=== PATIENT | female | born 1955 | race Caucasian/White ===

== ENCOUNTER 2023-01-31 00:46 | Outpatient (REF) | payer MEDICARE, MEDICAID, SELFPAY ==
[2023-01-31 10:43] LABS: Bilirubin Urine NEGATIVE (NEGATIVE); Blood Urine SMALL (NEGATIVE); Clarity Urine CLEAR (CLEAR); Color Urine LT. YELLOW (YELLOW); Glucose Urine UA NEGATIVE (NEGATIVE); Ketones Urine NEGATIVE (NEGATIVE); Leukocyte Esterase Urine LARGE (NEGATIVE); Nitrite Urine NEGATIVE (NEGATIVE); Protein Urine NEGATIVE (NEG/TRACE); Specific Gravity Urine 1.015 (1.005-1.025)
[2023-01-31 10:50] LABS: Basophils Percent Auto 0.1 % (0.2-2.0); Eosinophils Absolute Auto 0.5 10^3/uL (0.0-0.7); Eosinophils Percent Auto 6.3 % (0.9-7.0); Hematocrit 40.9 % (36.0-48.0); Immature Granulocytes Abs Auto 0.03 10^3/uL (0.00-0.03); Immature Granulocytes Pct Auto 0.4 % (0.0-0.5); Lymphocytes Percent Auto 13.7 % (20.5-60.0); Mean Corpuscular HGB Conc 31.8 g/dL (29.9-35.2); Mean Corpuscular Hemoglobin 29.7 pg (26.7-34.0); Mean Corpuscular Volume 93.6 fL (81.0-99.0); Monocytes Absolute Auto 0.7 10^3/uL (0.3-0.8); Monocytes Percent Auto 9.5 % (1.7-12.0); Platelet Count 252 10^3/uL (150-450); Red Blood Count 4.37 10^6/uL (4.20-5.40); Red Cell Distribution Width 14.4 % (11.0-15.0); White Blood Count 7.1 10^3/uL (4.0-11.0)
[2023-01-31 10:53] LABS: Urine Microscopic Indicated YES
[2023-01-31 10:56] LABS: Bacteria Urine MODERATE #/HPF (NONE SEEN); Mucus Urine NONE SEEN (NONE SEEN); Squamous Epithelial Cell Urine FEW #/LPF (NONE/RARE); WBC Urine 50-75 #/HPF (NONE SEEN)
[2023-01-31 10:57] LABS: Renal Epithelial Cells Urine RARE #/LPF (NONE SEEN)
[2023-01-31 10:58] LABS: Urine Culture Indicated YES
[2023-01-31 11:02] LABS: Estimated Average Glucose 114 mg/dL; Glycohemoglobin A1C 5.6 % (4.5-6.2)
[2023-01-31 11:38] LABS: Alanine Aminotransferase 27 U/L (14-59); Albumin Globulin Ratio 1.3; Albumin Level 3.9 g/dL (3.4-5.0); Alkaline Phosphatase 106 U/L (46-116); Anion Gap 16.1; Aspartate Amino Transferase 19 U/L (15-37); Bilirubin Direct 0.1 mg/dL (0.0-0.2); Bilirubin Total 0.5 mg/dL (0.2-1.0); Carbon Dioxide 24.3 mmol/L (21.0-32.0); Chloride 106 mmol/L (98-107); Chol HDL Ratio 1.9; Cholesterol 120 mg/dL (<=200); Estimated GFR (African America >60 (>=60); Estimated GFR (Non-African Ame 51 (>=60); Globulin 2.9 g/dL; HDL Cholesterol 63 mg/dL (40-60); Potassium 4.4 mmol/L (3.5-5.1); Sodium 142 mmol/L (136-145); Thyroid Stimulating Hormone 1.779 uIU/mL (0.358-3.740); Total Protein 6.8 g/dL (6.4-8.2); Triglycerides 119 mg/dL (<=150); VLDL CHOLESTEROL 23.8 mg/dL
== END 2023-01-31 00:47 | disposition home or self-care (01) ==
LOC: LAB 00:46
PROVIDERS: PCP Internal Medicine
DX: Z79.899 Other long term (current) drug therapy (principal); E11.9 Type 2 diabetes mellitus without complications; I50.40 Unspecified combined systolic (congestive) and diastolic (congestive) heart failure; E78.00 Pure hypercholesterolemia, unspecified
CPT/HCPCS: 36415; 80051; 80061; 80076; 81003; 81015; 82565; 83036; 83880; 84443; 84520; 85025; 87086

== ENCOUNTER 2023-02-14 09:59 | Outpatient (REF) | payer MEDICARE, MEDICAID, SELFPAY ==
[2023-02-14 11:41] LABS: Basophils Percent Auto 0.1 % (0.2-2.0); Eosinophils Absolute Auto 0.4 10^3/uL (0.0-0.7); Eosinophils Percent Auto 3.6 % (0.9-7.0); Hematocrit 42.5 % (36.0-48.0); Hemoglobin 13.5 g/dL (12.0-16.0); Immature Granulocytes Abs Auto 0.05 10^3/uL (0.00-0.03); Immature Granulocytes Pct Auto 0.4 % (0.0-0.5); Lymphocytes Absolute Auto 1.1 10^3/uL (1.2-3.8); Mean Corpuscular HGB Conc 31.8 g/dL (29.9-35.2); Mean Corpuscular Hemoglobin 29.9 pg (26.7-34.0); Mean Corpuscular Volume 94.2 fL (81.0-99.0); Mean Platelet Volume 9.4 fL (9.5-13.5); Monocytes Absolute Auto 0.7 10^3/uL (0.3-0.8); Monocytes Percent Auto 5.9 % (1.7-12.0); Neutrophils Absolute Auto 8.9 10^3/uL (1.4-6.5); Platelet Count 236 10^3/uL (150-450); Red Blood Count 4.51 10^6/uL (4.20-5.40); Red Cell Distribution Width 14.1 % (11.0-15.0); White Blood Count 11.2 10^3/uL (4.0-11.0)
[2023-02-14 12:02] LABS: Estimated Average Glucose 105 mg/dL; Glycohemoglobin A1C 5.3 % (4.5-6.2)
[2023-02-14 12:07] LABS: Alanine Aminotransferase 26 U/L (14-59); Albumin Globulin Ratio 1.3; Alkaline Phosphatase 117 U/L (46-116); Aspartate Amino Transferase 13 U/L (15-37); Bilirubin Direct 0.2 mg/dL (0.0-0.2); Bilirubin Total 0.6 mg/dL (0.2-1.0); Carbon Dioxide 27.9 mmol/L (21.0-32.0); Chloride 102 mmol/L (98-107); Chol HDL Ratio 1.9; Cholesterol 123 mg/dL (<=200); Estimated GFR (African America >60 (>=60); Estimated GFR (Non-African Ame >60 (>=60); Globulin 3.2 g/dL; Glucose 136 mg/dL (74-106); HDL Cholesterol 66 mg/dL (40-60); Potassium 3.9 mmol/L (3.5-5.1); Sodium 140 mmol/L (136-145); Thyroid Stimulating Hormone 1.485 uIU/mL (0.358-3.740); Total Protein 7.2 g/dL (6.4-8.2); Triglycerides 101 mg/dL (<=150); VLDL CHOLESTEROL 20.2 mg/dL
== END 2023-02-14 10:00 | disposition home or self-care (01) ==
LOC: LAB 09:59
DX: E11.9 Type 2 diabetes mellitus without complications (principal); I10 Essential (primary) hypertension; J45.909 Unspecified asthma, uncomplicated; F32.A Depression, unspecified
CPT/HCPCS: 36415; 80051; 80061; 80076; 82306; 82565; 82947; 83036; 83880; 84443; 84520; 85025

== ENCOUNTER 2023-05-02 01:25 | Outpatient (REF) | payer MEDICARE, MEDICAID, SELFPAY ==
[2023-05-02 08:14] LABS: Estimated Average Glucose 103 mg/dL; Glycohemoglobin A1C 5.2 % (4.5-6.2)
[2023-05-02 08:25] LABS: Alanine Aminotransferase 27 U/L (14-59); Albumin Globulin Ratio 1.2; Albumin Level 3.9 g/dL (3.4-5.0); Alkaline Phosphatase 125 U/L (46-116); Anion Gap 11.9; Aspartate Amino Transferase 15 U/L (15-37); Bilirubin Direct 0.1 mg/dL (0.0-0.2); Bilirubin Total 0.4 mg/dL (0.2-1.0); Calcium 9.1 mg/dL (8.5-10.1); Carbon Dioxide 28.9 mmol/L (21.0-32.0); Chloride 105 mmol/L (98-107); Chol HDL Ratio 1.8; Cholesterol 129 mg/dL (<=200); Estimated GFR (African America >60 (>=60); Estimated GFR (Non-African Ame 59 (>=60); Globulin 3.2 g/dL; Glucose 90 mg/dL (74-106); HDL Cholesterol 71 mg/dL (40-60); Potassium 4.8 mmol/L (3.5-5.1); Sodium 141 mmol/L (136-145); Total Protein 7.1 g/dL (6.4-8.2); Triglycerides 85 mg/dL (<=150)
== END 2023-05-02 01:26 | disposition home or self-care (01) ==
LOC: LAB 01:25
PROVIDERS: Visit Provider Internal Medicine
DX: E11.9 Type 2 diabetes mellitus without complications (principal)
CPT/HCPCS: 36415; 80048; 80061; 80076; 83036

== ENCOUNTER 2023-05-18 09:12 | Outpatient (OUT) | payer MEDICARE, MEDICAID, SELFPAY ==
--- NOTE | 2023-05-18 09:16 | MM_ITS ---
Patient Name STEVE JOHNSON MR# Age Sex Date Time [id number] F 05/18/2023 09:23 At the Request Of DR YAYA LANGLEY D.O. RADIOLOGY REPORT PROCEDURE: MM TOMOSYNTHESIS SCREENING BI COMPARISON: MG MAMM SCREEN 3D DERRICK CAD, 05/14/2022. MG MAMM SCREEN 3D DERRICK CAD, 05/08/2021. MG MAMM DERRICK DIAG W CAD, 04/23/2019. INDICATIONS: Screening Calculator Name NCI Breast Cancer Risk Assessment Tool 5 Year Breast Cancer Risk 1.40% Lifetime Breast Cancer Risk 4.60% Personal Breast Cancer No Personal Ovarian Cancer No Treatments None Family Cancers None LOCATION: [facility] BREAST COMPOSITION: Almost entirely fatty. FINDINGS: DIAGNOSTIC CATEGORY 1--NEGATIVE. RIGHT BREAST: No significant suspicious finding. No significant change has occurred. LEFT BREAST: No significant suspicious finding. No significant change has occurred. RECOMMENDATIONS: ROUTINE MAMMOGRAM AND CLINICAL EVALUATION IN 12 MONTHS. PLEASE NOTE: A NORMAL MAMMOGRAM DOES NOT EXCLUDE THE POSSIBILITY OF BREAST CANCER. A CLINICALLY SUSPICIOUS PALPABLE LUMP SHOULD BE BIOPSIED. Dictated by: Kevin Martell M.D. on 05/18/2023 at 12:40 Approved by: Kevin Martell M.D. on 05/18/2023 at 12:42
== END 2023-05-18 09:13 | disposition home or self-care (01) ==
LOC: MAMMO 09:13
PROVIDERS: Visit Provider Internal Medicine
DX: Z12.31 Encounter for screening mammogram for malignant neoplasm of breast (principal)
CPT/HCPCS: 77063; 77067

== ENCOUNTER 2023-05-25 19:10 | Outpatient (REF) | payer MEDICARE, MEDICAID, SELFPAY ==
[2023-06-01 16:09] LABS: Age Gdln ACOG Testing Note (.); Pap IG (Image Guided) Note (.)
== END 2023-05-25 19:11 | disposition home or self-care (01) ==
LOC: LAB 19:10
PROVIDERS: Visit Provider Obstetrics & Gynecology
DX: Z01.419 Encounter for gynecological examination (general) (routine) without abnormal findings (principal)
CPT/HCPCS: G0145

== ENCOUNTER 2023-06-06 08:21 | Outpatient (OUT) | payer MEDICARE, MEDICAID, SELFPAY ==
--- NOTE | 2023-06-06 08:44 | CT_ITS ---
The [address] [address] Patient Name: STEVE JOHNSON MRN: [id number] date: 1955 Sex: F Assigned Patient Location: LAB Current Patient Location: LAB Accession/Order Number: [id number] Exam Date: 06/06/2023 10:10 Report Date: 06/06/2023 11:41 At the request of: ASHLEY ADAMES Procedure: CT abdomen pelvis wo/w con EXAM: CT abdomen pelvis wo/w con HISTORY: Rectal Bleeding K62.5 COMPARISON: . None . TECHNIQUE: Before and following the intravenous administration of 98 cc of Omnipaque 300, axial soft tissue windows of the abdomen and pelvis were performed with coronal and sagittal reformats. CT dose reduction technique was used including Automated Exposure Control Findings: Large hiatal hernia. ABDOMEN: The liver, gallbladder, spleen, pancreas and adrenal glands are unremarkable. No renal stones bilaterally. No left-sided collecting system or ureteral dilatation. There is moderate right-sided collecting system with severe right ureteral dilatation to the level of the distal ureter. No obstructing ureteral stone. There are colonic diverticula. Otherwise, the bowel is unremarkable without evidence of wall thickening or obstruction. The appendix is nondilated. The aorta is normal caliber. Mild atherosclerotic disease. Prominent, yet not technically enlarged, retroperitoneal lymph nodes. No free abdominal fluid. Pelvis: Unremarkable bladder. The uterus is present and is either septated or didelphic. Cyst No enlarged pelvic lymph nodes or free pelvic fluid. No aggressive sclerotic or lytic osseous lesions. CT/CT abdomen pelvis wo/w con IMPRESSION: 1. Moderate right-sided collecting system with more severe right ureteral dilatation to the level the distal ureter. No evidence of obstructing stone. An obstructing urothelial lesion is possible. If indicated, consider cystoscopy or CT urogram for further evaluation. 2. Diverticulosis. Electronically authenticated by: MICHEAL ALFARO Date: 06/06/2023 11:41
[2023-06-06 08:49] LABS: Estimated GFR (African America 57 (>=60); Estimated GFR (Non-African Ame 47 (>=60)
== END 2023-06-06 08:22 | disposition home or self-care (01) ==
LOC: LAB 08:22
PROVIDERS: Visit Provider Obstetrics & Gynecology
DX: K62.5 Hemorrhage of anus and rectum (principal); K57.90 Diverticulosis of intestine, part unspecified, without perforation or abscess without bleeding
CPT/HCPCS: 36415; 74178; 82565; Q9967

== ENCOUNTER 2023-06-09 07:43 | Outpatient (OUT) | payer MEDICARE, MEDICAID, SELFPAY ==
--- NOTE | 2023-06-09 07:45 | US_ITS ---
[address] [address] Patient Name: STEVE JOHNSON MRN: [id number] date: 1955 Sex: F Assigned Patient Location: US Current Patient Location: US Accession/Order Number: [id number] Exam Date: 06/09/2023 08:00 Report Date: 06/09/2023 08:53 At the request of: ASHLEY ADAMES Procedure: US pelvis w/ transvaginal EXAMINATION: US pelvis w/ transvaginal HISTORY: Post Menopausal Bleeding N95.0 COMPARISON: No relevant comparison available. TECHNIQUE: Transabdominal and/or transvaginal sonographic examination was performed as indicated by examination type. FINDINGS: UTERUS: Didelphic uterus. No appreciable mass. Uterus size: 10.6 x 5.6 x 8.9 cm ENDOMETRIUM: Marked, abnormal thickening of the endometrium within the right and left uterine cavity. Endometrial thickness: Right 5.0 cm; left 4.3 cm RIGHT OVARY: Not seen. LEFT OVARY: Not seen. CUL-DE-SAC: Unremarkable. No significant free fluid. BLADDER: Unremarkable. OTHER: None. US/US pelvis w/ transvaginal IMPRESSION: 1. Didelphic uterus with marked abnormal thickening of the right and left endometrial cavities; endometrial hyperplasia is favored over mass. Electronically authenticated by: IRVKA FRAZIER Date: 06/09/2023 08:53
== END 2023-06-09 07:44 | disposition home or self-care (01) ==
LOC: US 07:43
PROVIDERS: Visit Provider Obstetrics & Gynecology
DX: N95.0 Postmenopausal bleeding (principal); Q51.28 Other and unspecified doubling of uterus; N85.00 Endometrial hyperplasia, unspecified
CPT/HCPCS: 76830; 76856

== ENCOUNTER 2023-07-05 16:11 | Outpatient (REF) | payer MEDICARE, MEDICAID, SELFPAY ==
--- OUTSIDE RECORDS SUMMARY | 2023-08-10 16:08 | XMS_ITS | CCD ---
Author Name Unknown Address [address] [place] [address] Organization [facility] Care Team Providers Care School Director Name Role Phone MARKER, DR SALINAS Consulting Unavailable VALONE, DR JAVIER Primary Care Unavailable MARKER, DR SALINAS Attending Unavailable MARKER, DR SALINAS Admitting Unavailable BENEDICT, DR TINEO Admitting Unavailable BENEDICT, DR TINEO Attending Unavailable VALONE, DR JAVIER Attending Unavailable VALONE, DR JAVIER Admitting Unavailable VALONE, DR JAVIER Primary Care Unavailable SABAECK, DR NANI Haley Admitting Unavailalice e ROSALBA, DR NANI Haley Attending Unavailabl ASHLEY Smith Attending Unavailable ASHLEY CRESPO Attending Unavailable ASHLEY CRESPO Attending Unavailable YAYA LANGLEY JR Primary Care Physician Pamela Benson Attending Unavailable Ashley CRESPO Referring Unavailable Pamela Benson Admitting Unavailable Pamela Benson Attending Unavailable Medications Current Medications Medication Drug Class(es) Dates Sig (Normalized) Sig (Original) acarbose 100 mg oral tablet (2 sources) alpha-Glucosidase Inhibitor Start: 08-03-2023 acarbose 100 mg oral tablet Refills(s) 0 Start Date: 08/03/23 Status: Ordered Acetaminophen (2 sources) Start: 08-03-2023 acetaminophen Refills(s) 0 Start Date: 08/03/23 Status: Ordered Albuterol (2 sources) beta2-Adrenergic Agonist Start: 09-28-2012 take 2.5 mg by inhalation every six hours albuterol 0.083% Inh Joycelyn 3 mL UD 2.5 mg, 3 mL, Inhalation, q6hr, Refill(s) 0 Start Date: 09/28/12 Status: Ordered Aspirin (2 sources) Platelet Aggregation Inhibitor, Nonsteroidal Anti-inflammatory Drug Start: 08-03-2023 aspirin Refills(s) 0 Start Date: 08/03/23 Status: Ordered atorvastatin 40 mg oral tablet (2 sources) HMG-CoA Reductase Inhibitor Start: 08-03-2023 atorvastatin 40 mg Tab Refills(s) 0 Start Date: 08/03/23 Status: Ordered Baclofen (2 sources) gamma-Aminobutyric Acid-ergic Agonist Start: 08-03-2023 BACLOFEN 20 MG TABLET BACLOFEN 20 MG TABLET, As Directed Start Date: 08/03/23 Status: Ordered citalopram 20 mg oral tablet (2 sources) Serotonin Reuptake Inhibitor Start: 04-16-2013 take 1 tablet by mouth once daily CeleXA 20 mg Tab 20 mg = 1 tab(s), Oral, Daily, Refills(s) 0 Start Date: 04/16/13 Status: Ordered cyclobenzaprine (2 sources) Muscle Relaxant Start: 02-13-2013 Flexeril Oral, TID, Refills(s) 0 Start Date: 02/13/13 Status: Ordered famotidine 40 mg oral tablet (2 sources) Histamine-2 Receptor Antagonist Start: 08-03-2023 famotidine 40 mg Tab Refills(s) 0 Start Date: 08/03/23 Status: Ordered ferrous sulfate 325 mg oral tablet (2 sources) Start: 08-03-2023 ferrous sulfate 325 mg Tab Refills(s) 0 Start Date: 08/03/23 Status: Ordered lumateperone 42 mg oral capsule (2 sources) Start: 08-03-2023 Caplyta 42 mg oral capsule Refills(s) 0 Start Date: 08/03/23 Status: Ordered metFORMIN hydrochloride 1000 mg oral tablet (2 sources) Biguanide Start: 08-03-2023 metformin 1000 mg Tab Refills(s) 0 Start Date: 08/03/23 Status: Ordered montelukast 10 mg oral tablet (2 sources) Leukotriene Receptor Antagonist Start: 08-03-2023 montelukast 10 mg Tab Refills(s) 0 Start Date: 08/03/23 Status: Ordered OLANZapine 10 mg oral tablet (2 sources) Atypical Antipsychotic Start: 07-22-2012 take 1 tablet by mouth once daily ZyPREXA 10 mg Tab 10 mg = 1 tab(s), Oral, Daily, # 30 tab(s), Refills(s) 0 Start Date: 07/22/12 Status: Ordered perphenazine 4 mg oral tablet (2 sources) Phenothiazine Start: 08-03-2023 perphenazine 4 mg Tab Refills(s) 0 Start Date: 08/03/23 Status: Ordered ProAir HFA 90 mcg/inh inhalation aerosol (2 sources) Start: 09-23-2011 take 2 puff(s) by inhalation four times daily ProAir HFA 90 mcg/inh inhalation aerosol 2 puff(s), Inhalation, QID Shortness of breath or wheezing, Refill(s) 0 Start Date: 09/23/11 Status: Ordered QUEtiapine 100 mg oral tablet (2 sources) Atypical Antipsychotic Start: 04-16-2013 take 1 tablet by mouth twice daily quetiapine 100 mg Tab 100 mg = 1 tab(s), Oral, BID, Refills(s) 0 Start Date: 04/16/13 Status: Ordered sacubitril 24 mg / valsartan 26 mg oral tablet (2 sources) Angiotensin 2 Receptor Man Start: 08-03-2023 Entresto 24 mg-26 mg oral tablet Refill(s) 0 Start Date: 08/03/23 Status: Ordered traMADol hydrochloride 50 mg oral tablet (2 sources) Opioid Agonist Start: 09-23-2011 take 1 tablet by mouth once daily Ultram 50 mg, Oral, Daily, tab(s), Refills(s) 0 Start Date: 09/23/11 Status: Ordered Problems Active Problems Problem Classification Problem Date Documented Date Episodic/Chronic Asthma (2 sources) Asthma 04-17-2012 Chronic Essential hypertension (2 sources) Hypertensive disorder 12-27-2013 Chronic 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 Genitourinary symptoms and ill-defined conditions (5 sources) Blood in urine; Translations: [Gross hematuria] Onset: 4 Episodic Other aftercare (1 source) Long-term current use of aspirin; Translations: [FCI (current) use of aspirin] Onset: 4 Episodic Other diseases of kidney and ureters (1 source) Hydronephrosis; Translations: [Unspecified hydronephrosis] Onset: 4 Episodic Other diseases of kidney and ureters (2 sources) Hydroureteronephrosis 08-03-2023 Episodic Other ear and sense organ disorders (2 sources) Hearing loss 09-21-2013 Chronic Screening and history of mental health and substance abuse codes (3 sources) H/O: Disorder; Translations: [Personal history of nicotine dependence] Onset: Episodic Unclassified (2 sources) Finding of sensation of bladder 08-03-2023 Unclassified (2 sources) Long-term current use of aspirin 08-03-2023 Past or Other Problems Problem Classification Problem Date Documented Da te Episodic/Chronic Unclassified (2 sources) pysch hx 09-24-2010 Results Test Name Value Interpretation Reference Range Facility Consent for Procedure/Surger yon 08-09-2023 Consent for Procedure/Surgery [id number] Normal [facility] Urine Cytology ([facility])on 0 08-09-2023 Urine Cytology Diagnosis Info Invalid Interpretation Code [facility] Comment on above: Result Comment: A:Ur ine,Urine:Voided Interpretation - MicroScopic Description - Adequacy - Gross Description Site ID:A color Dark Yellow fixative Alcohol Specimen designated Urine received in alcohol preservative and labeled with the patient?s name, consists of 110ml slightly cloudy dark yellow fluid. Electronically signed by : on: 08/09/2023 11:46:02 Performed By: #### 1 [id number] #### [facility] [address] [place] [address] Physician Referralon 024 Physician Referral [id number] Normal [facility] Screenson 08-04-2023 Screens [id number] Normal [facility] Urine Cytology ([facility])on 0 08-04-2023 UC Method of Extraction Voided Normal [facility] Comment on above: Performed By: #### 1 [id number] #### [facility] [address] [place] [address] UC Number of Jars 1 Invalid Interpretation Code [facility] Comment on above: Performed By: #### 1 [id number] #### [facility] [address] [place] [address] UC Specimen Urine Normal [facility] Comment on above: Performed By: #### 1 [id number] #### [facility] [address] [place] [address] UC Type of Service Technical Only Normal [facility] Comment on above: Performed By: #### 1 [id number] #### [facility] [address] [place] [address] Ambulatory Visit Summaryon 0 08-03-2023 Ambulatory Visit Summary STEVE JOHNSON :1955 Visit Date:08/03/2023 Ambulatory Visit Instructions Your Diagnosis Ureteral dilatation Gross hematuria Former smoker Aspirin long-term use Your Care Team Attending Physician - Pamela Benson MD Primary Care Physician - YAYA LANGLEY JR, DO Referring Physician - Ashley CERSPO DO This Is Your Medications List Contact prescribing physician if questions or concerns Misc Prescription (BACLOFEN 20 MG TABLET) acarbose (acarbose 100 mg oral tablet) acetaminophen albuterol (ProAir HFA 90 mcg/inh inhalation aerosol) albuterol (albuterol 0.083% Inh Joycelyn 3 mL UD) aspirin atorvastatin (atorvastatin 40 mg Tab) citalopram (CeleXA 20 mg Tab) cyclobenzaprine (Flexeril) famotidine (famotidine 40 mg Tab) ferrous sulfate (ferrous sulfate 325 mg Tab) lumateperone (Caplyta 42 mg oral capsule) metformin (metformin 1000 mg Tab) montelukast (montelukast 10 mg Tab) olanzapine (ZyPREXA 10 mg Tab) perphenazine (perphenazine 4 mg Tab) quetiapine (quetiapine 100 mg Tab) sacubitril-valsartan (Entresto 24 mg-26 mg oral tablet) tramadol (Ultram) Procedures Performed x3. What to do next You Need to Schedule the Following Appointments Follow Up with Marcelino GALLARDO, Pamela Fam, URL, URO When: Comments: Schedule Cysto, Rt ureteroscopy, possible biopsy, and Rt stent placement Where: Medications What How Much When Instructions Unchanged acarbose (acarbose 100 mg oral tablet) Contact prescribing physician if questions or concerns Unchanged acetaminophen Contact prescribing physician if questions or concerns Unchanged albuterol (albuterol 0.083% Inh Joycelyn 3 mL UD) 3 Milliliter Inhalation Every 6 hours Contact prescribing physician if questions or concerns Unchanged albuterol (ProAir HFA 90 mcg/ inh inhalation aerosol) 2 Puffs Inhalation 4 times a day as needed for Shortness of breath or wheezing Contact prescribing physician if questions or concerns Unchanged aspirin Contact prescribing physician if questions or concerns Unchanged atorvastatin (atorvastatin 40 mg Tab) Contact prescribing physician if questions or concerns Unchanged citalopram (CeleXA 20 mg Tab) 1 Tablets By Mouth Every day Contact prescribing physician if questions or concerns Unchanged cyclobenzaprine (Flexeril) By Mouth 3 times a day Contact prescribing physician if questions or concerns Unchanged famotidine (famotidine 40 mg Tab) Contact prescribing physician if questions or concerns Unchanged ferrous sulfate (ferrous sulfate 325 mg Tab) Contact prescribing physician if questions or concerns Unchanged lumateperone (Caplyta 42 mg oral capsule) Contact prescribing physician if questions or concerns Unchanged metformin (metformin 1000 mg Tab) Contact prescribing physician if questions or concerns Unchanged Misc Prescription (BACLOFEN 20 MG TABLET) 0 As Directed Contact prescribing physician if questions or concerns Unchanged montelukast (montelukast 10 mg Tab) Contact prescribing physician if questions or concerns Unchanged olanzapine (ZyPREXA 10 mg Tab) 1 Tablets By Mouth Every day Contact prescribing physician if questions or concerns Unchanged perphenazine (perphenazine 4 mg Tab) Contact prescribing physician if questions or concerns Unchanged quetiapine (quetiapine 100 mg Tab) 1 Tablets By Mouth 2 times a day Contact prescribing physician if questions or concerns Unchanged sacubitril-valsartan (Entresto 24 mg-26 mg oral tablet) Contact prescribing physician if questions or concerns Unchanged tramadol (Ultram) 50 Milligram By Mouth Every day Contact prescribing physician if questions or concerns Allergies No Known Allergies Problems Ongoing - Any problem that you are currently receiving treatment for. Aspirin long-term use Asthma Congenital abnormality of urinary system Feeling of incomplete bladder emptying Former smoker Gross hematuria hypertension Incomplete bladder emptying Ureteral dilatation Historical - Any problem that you are no longer receiving treatment for. Difficulty hearing pysch hx Patient Survey You may receive a survey via text or e-mail asking about your office visit. Please share your experience with us by completing your survey. We appreciate your feedback and thank you for choosing us for your care. Education Materials Ureteroscopy Ureteroscopy is a procedure to check for and treat problems inside part of the urinary tract. In this procedure, a long rigid or flexible tube with a lens and light at the end (ureteroscope) is used to look at the inside of the kidneys and the ureters. The ureters are the tubes that carry urine from the kidneys to the bladder. The ureteroscope is inserted into one or both of the ureters. You may need this procedure if you have frequent urinary tract infections (UTIs), blood in your urine, or a stone in one or both of your ureters. A ureteroscopy can be done: ? To find the caus (more content not included)... Normal [facility] Fdc Recordson 08-03 Fdc Records [id number] Normal [facility] Patient Educationon 08-03-19 Patient Education Urology Ureteroscopy Ureteroscopy is a procedure to check for and treat problems inside part of the urinary tract. In this procedure, a long rigid or flexible tube with a lens and light at the end (ureteroscope) is used to look at the inside of the kidneys and the ureters. The ureters are the tubes that carry urine from the kidneys to the bladder. The ureteroscope is inserted into one or both of the ureters. You may need this procedure if you have frequent urinary tract infections (UTIs), blood in your urine, or a stone in one or both of your ureters. A ureteroscopy can be done: ? To find the cause of urine blockage in a ureter and to evaluate other abnormalities inside the ureters or kidneys. ? To remove stones. ? To remove or treat growths of tissue (polyps), abnormal tissue, and some types of tumors. ? To remove a tissue sample and check it for disease under a microscope (biopsy). Tell a health care provider about: ? Any allergies you have. ? All medicines you are taking, including vitamins, herbs, eye drops, creams, and yzrf-ybg-tvobrxc medicines. ? Any problems you or family members have had with anesthetic medicines. ? Any bleeding problems you have. ? Any surgeries you have had. ? Any medical conditions you have. ? Whether you are or may be . What are the risks? Your health care provider will talk with you about risks. These may include: ? Abdominal pain or a burning feeling or pain while urinating. ? Abnormal bleeding. ? A UTI. ? Allergic reactions to medicines. ? Scarring that narrows the ureter (stricture) or swelling. ? Creating a hole (perforation) in the ureter. ? Damage to other structures or organs, such as the part of your body that drains urine from your bladder (urethra), your bladder, or your uterus. What happens before the procedure? When to stop eating and drinking ? 8 hours before your procedure ? Stop eating most foods. Do not eat meat, fried foods, or fatty foods. ? Eat only light foods, such as toast or crackers. ? All liquids are okay except energy drinks and alcohol. ? 6 hours before your procedure ? Stop eating. ? Drink only clear liquids, such as water, clear fruit juice, black coffee, plain tea, and sports drinks. ? Do not drink energy drinks or alcohol. ? 2 hours before your procedure ? Stop drinking all liquids. ? You may be allowed to take medicines with small sips of water. Medicines Ask your health care provider about: ? Changing or stopping your regular medicines. These include any diabetes medicines or blood thinners you take. ? Taking medicines such as aspirin and ibuprofen. These medicines can thin your blood. Do not take these medicines unless your health care provider tells you to. ? Taking yqld-oln-suofekf medicines, vitamins, herbs, and supplements. General instructions ? Do not use any products that contain nicotine or tobacco for at least 4 weeks before the procedure. These products include cigarettes, chewing tobacco, and vaping devices, such as e-cigarettes. If you need help quitting, ask your health care provider. ? If you will be going home right after the procedure, plan to have a responsible adult: ? Take you home from the hospital or clinic. You will not be allowed to drive. ? Care for you for the time you are told. ? Ask your health care provider what steps will be taken to help prevent infection. These may include: ? Washing skin with a soap that kills germs. ? Receiving antibiotic medicine. Tests ? You may have an exam or testing. ? You may have a urine sample taken to check for infection. What happens during the procedure? ? An IV will be inserted into one of your veins. ? You may be given: ? A sedative. This helps you relax. ? Anesthesia. This will: ? Numb certain areas of your body. ? Make you fall asleep for surgery. ? Your urethra will be cleaned with a germ-killing solution. ? The ureteroscope will be passed through your urethra into your bladder. ? A salt-water solution will be sent through the ureteroscope to fill your bladder. This will help the health care provider see the openings of your ureters more clearly. ? The ureteroscope will be passed into your ureter. ? If a growth is found, a biopsy may be done. ? If a stone is found, it may be removed through the ureteroscope, or the stone may be broken up using a laser, shock waves, or electrical energy. ? In some cases, if the ureter is too small, a tube may be inserted that keeps the ureter open (ureteral stent). The stent may be left in place for 1 or 2 weeks, and then the ureteroscopy procedure will be done again. ? The scope will be removed, and your bladder will be emptied. The procedure may vary among health care providers and hospitals. What happens after the procedure? ? Your blood pressure, heart rate, breathing rate, and blood oxygen level will be monitor (more content not included)... Normal [facility] Urology Office/Clinic Noteon 08-03-2023 Urology Office/Clinic Note Chief Complaint [employer] for abnormalitties in urinary system HPI Staff Evaluation requested by Dr Ashley Crespo due to incidental findings on CT 06/06/23. *possible abnormality of urinary system. Ordered due to rectal bleeding. Pt is a new pt. Never before seen in our office. Pt is hard of hearing she can read lips and she has an nurses aid from her home ([facility]) CT abdomen pelvis wo/w con done @ [facility] on 06/06/23 She tried giving a urine sample but flushed it down the toilet B&BSQ 20 PVR 220 Dysuria: _denies Incomplete bladder emptying: unknown Hematuria: _unknown Frequency: _unknown Urgency: yes Nocturia: yes how many times is unknown Stream: _unknown Leaking: unknown Post void dripping: unknown Wearing pads/ Depends: Depends staff says changed alot during the day unknown how many times daily Urge incontinence: yes Stress incontinence: unknown Incontinence without Sensory Awareness: unknown Abdominal pain: unknown Flank pain: unknown Sexual complaints: N/A History of Present Illness Tests reviewed: reviewed UA and External Records including CT scan, labs, notes I have reviewed the previous health record information and history for this patient from External Provider. I have reviewed and verified the staff HPI to be accurate for this encounter. There have been no associated fever, chills, flank pain. Denies any urinary infections since last encounter. Review of Systems PHQ Score Initial Depression Screen Score: 0 SCORE ROS - Provider Constitutional: denies weight loss, denies hot flashes. Eyes: denies eye problems. Gastrointestinal: denies nausea, denies vomiting. Cardiovascular: denies chest pain or angina. Integumentary: no dryness Musculoskeletal: denies musculoskeletal symptoms. ENMT: denies otolaryngeal symptoms. Respiratory: no shortness of breath. Heme/Lymph: denies easy bleeding tendency, denies easy bruising tendency. Psychiatric: no confusion, no anxiety. Genitourinary: See HPI. Physical Exam General Appearance: alert , no acute distress, well nourished, well developed female. Poor speech Head: normocephalic . Eyes: normal orbit and globe. ENMT: normal examination of external ears. Very hard of hearing Chest: symmetric chest rise, respirations non labored . Cardiovascular: regular rate and rhythm. Abdomen: soft, non distended, no tenderness Genitourinary: bladder nonpalpable, no flank tenderness. MSK: Diffuse mild TTP to entire back Skin: warm, dry, no bruising. Psychiatric: cooperative, affect appropriate for age Assessment/Plan 68 [facility] female resident of [facility] here for new patient evaluation of right hydroureteronephrosis. Pt is hard of hearing, can read lips and she has a nurses aid from her home with her. Mother had lung cancer. Denies any other urologic surgeries. 1. Hydroureteronephrosis (N13.30: Unspecified hydronephrosis) CT AP wo/w PO con @ [facility] on 06/06/23 - mod Rt-sided collecting system with severe Rt ureteral dilation to the distal ureter, no obstructing ureteral stones, an obstructing urothelial lesion is possible, Crea 1.14 Counseled pt on the imaging findings with pt. Pt has a D&C on 08/26/23 w/. Recommend proceeding with cystoscopy, right ureteroscopy to determine what is causing the blockage. This may result in biopsy or dilation/stent. Will discuss coordinating with Dr. Crespo to reduce anesthesia exposure and procedures. Patient is in agreement to proceed. All questions/concerns were discussed. Pt to call the office if she encounters any issues prior. Pt acknowledges understanding. -Will schedule Cysto, Rt ureteroscopy, possible biopsy, possible dilation, possible rt stent placement. The procedure risks, benefits, details, and treatment alternatives have been discussed. These include the need for additional procedures, bleeding, infection, injury to the ureter, moderate to severe bladder irritation from the stent (with frequent urination, urgency, urinary leakage), moderate flank discomfort, among others. Stent removal or changes may also be required in the future. Full informed consent has been obtained. Will order General anesthesia. -Discussed with Dr. Crespo, will plan joint case for 08/24/2023 2. Gross hematuria (R31.0: Gross hematuria) Pt states that she has blood in her urine as she sees in the toilet bowl. Undergoing D&C as above for also vaginal bleeding likely. Dr. Crespo also referred patient for colonoscopy. Difficult to determine source of bleeding. Will proceed with further malignancy workup at this time especially given CT scan findings as above. Advised pt that we will send her urine sample for cytology at the cysto -patient unable to provide urine sample today -Will send urine for cytology at time of cysto, if patient unable to submit from [facility] prior 3. Former smoker (Z87.891: Personal history of nicotine dependence) Smoked for a very little amount of time. 4. Aspirin long-term use (Z79.82: [facility]CI (curre (more content not included)... Normal [facility] Comment on above: Result Comment: Elec tronically Signed By: Pamela Benson MD\.br\Date and Time Signed: 08/03/23 19:48 EST\.br\Electronically Co-Signed By: Martha Major.br\Date and Time Co-Signed: 08/03/23 09:41 EST MRI BRAIN WO CONon 2 MRI BRAIN WO CON EXAMINATION: MRI BRA IN WO CON, 07/05/2022 10:23 AM EST HISTORY: Amnesia COMPARISON: None. TECHNIQUE: MRI of the brain was performed without IV contrast. FINDINGS: CEREBRUM: Numerous small T2 hyperintensities within the subcortical and periventricular deep white matter, slightly more confluent adjacent posterior horns of the lateral ventricles. No edema, hemorrhage, mass, acute infarction, or inappropriate atrophy. CEREBELLUM: No edema, hemorrhage, mass, acute infarction, or inappropriate atrophy. BRAINSTEM: No edema, hemorrhage, mass, acute infarction, or inappropriate atrophy. CSF SPACES: Ventricles, cisterns, and sulci are appropriate for age. No hydrocephalus, subarachnoid hemorrhage, or mass. SKULL: No mass or other significant visible lesion. SINUSES: Limited views demonstrate no significant mucosal thickening or fluid. ORBITS: Limited views are unremarkable. OTHER: Negative. IMPRESSION: 1. Mild atrophy and moderate chronic small vessel ischemic changes. 2. No mass or suspicious findings. Electronically authenticated by: RIVKA FRAZIER Date: 2022-07-05 15:47 Normal [facility] MAMM SCREEN 3D DERRICK CADon 05-14-2022 MG MAMM SCREEN 3D DERRICK CAD Patient: STEVE JOHNSON Exam Date: 05/14/2022 : 1955 Gender:F Ordering : DR YAYA LANGLEY D.O. Admission #: [id number] Family : Order #: [id number] CLICK HERE TO VIEW EXAM RADIOLOGY REPORT PROCEDURE: MAMMOGRAM SCREENING 3D BILATERAL CAD COMPARISON: MG MAMM DERRICK DIAG W CAD, 04/23/2019. MG MAMM SCREEN 3D DERRICK CAD, 05/08/2021. INDICATIONS: Screening mammography Calculator Name NCI Breast Cancer Risk Assessment Tool 5 Year Breast Cancer Risk 1.40% Lifetime Breast Cancer Risk 4.80% Personal Breast Cancer No Personal Ovarian Cancer No Treatments None Family Cancers None LOCATION: [facility] BREAST COMPOSITION: Almost entirely fatty. FINDINGS: DIAGNOSTIC CATEGORY 1--NEGATIVE. NO CHANGE FROM COMPARISON ASSESSMENT. Scattered benign-appearing nodules are present. Scattered benign-appearing calcifications are present. Scattered benign-appearing lymph nodes are present. RIGHT BREAST: No significant suspicious finding. LEFT BREAST: No significant suspicious finding. RECOMMENDATIONS: ROUTINE MAMMOGRAM AND CLINICAL EVALUATION IN 12 MONTHS. PLEASE NOTE: A NORMAL MAMMOGRAM DOES NOT EXCLUDE THE POSSIBILITY OF BREAST CANCER. A CLINICALLY SUSPICIOUS PALPABLE LUMP SHOULD BE BIOPSIED. Dictated by: Jamarcus Huddleston MD on 05/14/2022 at 12:46 Approved by: Jamarcus Huddleston MD on 05/14/2022 at 12:49 Normal [facility] BNPon 03-07-2022 Natriuretic peptide B (Bld) [Mass/Vol] 115.0 pg/mL Normal <=900.0 [facility] Comment on above: Performed By: #### B ACCOUNTS OFFICER, CMP, HSTROPN #### [facility] [address] [place] [address] Dr. Carl Zuñiga CBC AUTO DIFFon 03-07-2022 BASO # 0.0 103/ul Normal 0.0-0.1 [facility] Comment on above: Performed By: #### B ACCOUNTS OFFICER, CMP, HSTROPN #### [facility] [address] [place] [address] Dr. Carl Zuñiga Basophils/100 WBC (Bld) 0.0 % Critically low 0.2-2.0 [facility] Comment on above: Performed By: #### B ACCOUNTS OFFICER, CMP, HSTROPN #### [facility] [address] [place] [address] Dr. Carl Zuñiga EO # 0.1 103/ul Normal 0.0-0.7 [facility] Comment on above: Performed By: #### B ACCOUNTS OFFICER, CMP, HSTROPN #### [facility] [address] [place] [address] Dr. Carl Zuñiga Eosinophils/100 WBC (Bld) 1.0 % Normal 0.9-7.0 [facility] Comment on above: Performed By: #### B ACCOUNTS OFFICER, CMP, HSTROPN #### [facility] [address] [place] [address] Dr. Carl Zuñiga Erythrocyte distribution width (RBC) [Ratio] 13.7 % Normal 11.0-15.0 [facility] Comment on above: Performed By: #### B ACCOUNTS OFFICER, CMP, HSTROPN #### [facility] [address] [place] [address] Dr. Carl Zuñiga Hematocrit (Bld) [Volume fraction] 40.8 % Normal 36.0-48.0 [facility] Comment on above: Performed By: #### B ACCOUNTS OFFICER, CMP, HSTROPN #### [facility] [address] [place] [address] Dr. Carl Zuñiga Hemoglobin (Bld) [Mass/Vol] 13.1 g/dL Normal 12.0-16.0 [facility] Comment on above: Performed By: #### B ACCOUNTS OFFICER, CMP, HSTROPN #### [facility] [address] [place] [address] Dr. Carl Zuñiga IG # 0.02 10e3/ul Normal 0.00-0.03 [facility] Comment on above: Performed By: #### B ACCOUNTS OFFICER, CMP, HSTROPN #### [facility] [address] [place] [address] Dr. Carl Zuñiga IG % 0.3 % Normal 0.0-0.5 [facility] Comment on above: Performed By: #### B ACCOUNTS OFFICER, CMP, HSTROPN #### [facility] [address] [place] [address] Dr. Carl Zuñiga LYMPH # 0.9 103/ul Critically low 1.2-3.8 [facility] Comment on above: Performed By: #### B ACCOUNTS OFFICER, CMP, HSTROPN #### [facility] [address] [place] [address] Dr. Carl Zuñiga Lymphocytes/100 WBC (Bld) 13.9 % Critically low 20.5-60.0 [facility] Comment on above: Performed By: #### B ACCOUNTS OFFICER, CMP, HSTROPN #### [facility] [address] [place] [address] Dr. Carl Zuñiga MANUAL DIFF REQ NO Normal [facility] Comment on above: Performed By: #### B ACCOUNTS OFFICER, CMP, HSTROPN #### [facility] [address] [place] [address] Dr. Carl Zuñiga MCH (RBC) [Entitic mass] 30.8 pg Normal 26.7-34.0 [facility] Comment on above: Performed By: #### B ACCOUNTS OFFICER, CMP, HSTROPN #### [facility] [address] [place] [address] Dr. Carl Zuñiga MCHC (RBC) [Mass/Vol] 32.1 g/dL Normal 29.9-35.2 [facility] Comment on above: Performed By: #### B ACCOUNTS OFFICER, CMP, HSTROPN #### [facility] [address] [place] [address] Dr. Carl Zuñiga MCV (RBC) [Entitic vol] 96.0 fL Normal 81.0-99.0 [facility] Comment on above: Performed By: #### B ACCOUNTS OFFICER, CMP, HSTROPN #### [facility] [address] [place] [address] Dr. Carl Zuñiga MONO # 0.6 103/ul Normal 0.3-0.8 [facility] Comment on above: Performed By: #### B ACCOUNTS OFFICER, CMP, HSTROPN #### [facility] [address] [place] [address] Dr. Carl Zuñiga Monocytes/100 WBC (Bld) 9.2 % Normal 1.7-12.0 [facility] Comment on above: Performed By: #### B ACCOUNTS OFFICER, CMP, HSTROPN #### [facility] [address] [place] [address] Dr. Carl Zuñiga NEUT # 5.1 103/ul Normal 1.4-6.5 [facility] Comment on above: Performed By: #### B ACCOUNTS OFFICER, CMP, HSTROPN #### [facility] [address] [place] [address] Dr. Carl Zuñiga Neutrophils/100 WBC (Bld) 75.6 % Critically high 43.0-75.0 [facility] Comment on above: Performed By: #### B ACCOUNTS OFFICER, CMP, HSTROPN #### [facility] [address] [place] [address] Dr. Carl Zuñiga Platelet mean volume (Bld) [Entitic vol] 8.5 fL Critically low 9.5-13.5 [facility] Comment on above: Performed By: #### B ACCOUNTS OFFICER, CMP, HSTROPN #### [facility] [address] [place] [address] Dr. Carl Zuñiga PLT 206 103/ul Normal 150-450 [facility] Comment on above: Performed By: #### B ACCOUNTS OFFICER, CMP, HSTROPN #### [facility] [address] [place] [address] Dr. Carl Zuñiga RBC 4.25 106/ul Normal 4.20-5.40 [facility] Comment on above: Performed By: #### B ACCOUNTS OFFICER, CMP, HSTROPN #### [facility] [address] [place] [address] Dr. Cral Zuñiga WBC 6.7 103/ul Normal 4.0-11.0 [facility] Comment on above: Performed By: #### B ACCOUNTS OFFICER, CMP, HSTROPN #### [facility] [address] [place] [address] Dr. Carl Zuñiga D-DIMERon 03-07-2022 D-DIMER <0.19 Normal <=0.59 [facility] Comment on above: Performed By: #### D DIM #### [facility] [address] [place] [address] Dr. Carl Zuñiga D-DIMER COMMENTS SEE BELOW Normal [facility] Comment on above: Result Comment: Incr eases in D-Dimer concentration observed with thromboembolic events can be variable due to localization, size, and age of the thrombus. Therefore, a thromboembolic event cannot be diagnosed with certainty on the basis of the reference range. D-Dimers may also be elevated for a variety of disorders including: advanced age, , coronary disease, cancer, liver disease, infection, inflammation, hematoma, DIC, trauma, post-surgery, diabetes, thrombolytic or anticoagulant therapy, stress, and generalized hospitalization. Performed By: #### D DIM #### [facility] [address] [place] [address] Dr. Carl Zuñiga PROF 14(COMP METB)on 022 Albumin [Mass/Vol] 3.9 g/dL Normal 3.4-5.0 [facility] Comment on above: Performed By: #### B ACCOUNTS OFFICER, CMP, HSTROPN #### [facility] [address] [place] [address] Dr. Carl Zuñiga Albumin/Globulin [Mass ratio] 1.5 {ratio} Normal [facility] Comment on above: Performed By: #### B ACCOUNTS OFFICER, CMP, HSTROPN #### [facility] [address] [place] [address] Dr. Carl Zuñiga ALP [Catalytic activity/Vol] 96 U/L Normal 46-116 [facility] Comment on above: Performed By: #### B ACCOUNTS OFFICER, CMP, HSTROPN #### [facility] [address] [place] [address] Dr. Carl Zuñiga ALT [Catalytic activity/Vol] 38 U/L Normal 14-59 [facility] Comment on above: Performed By: #### B ACCOUNTS OFFICER, CMP, HSTROPN #### [facility] [address] [place] [address] Dr. Carl Zuñiga Anion gap [Moles/Vol] 9.8 mmol/L Normal [facility] Comment on above: Performed By: #### B ACCOUNTS OFFICER, CMP, HSTROPN #### [facility] [address] [place] [address] Dr. Carl Zuñiga AST [Catalytic activity/Vol] 16 U/L Normal 15-37 [facility] Comment on above: Performed By: #### B ACCOUNTS OFFICER, CMP, HSTROPN #### [facility] [address] [place] [address] Dr. Carl Zuñiga Bilirubin [Mass/Vol] 0.5 mg/dL Normal 0.2-1.0 [facility] Comment on above: Performed By: #### B ACCOUNTS OFFICER, CMP, HSTROPN #### [facility] [address] [place] [address] Dr. Carl Zuñiga Calcium [Mass/Vol] 9.2 mg/dL Normal 8.5-10.1 [facility] Comment on above: Performed By: #### B ACCOUNTS OFFICER, CMP, HSTROPN #### [facility] [address] [place] [address] Dr. Carl Zuñiga Chloride [Moles/Vol] 103 mmol/L Normal 98-107 [facility] Comment on above: Performed By: #### B ACCOUNTS OFFICER, CMP, HSTROPN #### [facility] [address] [address] [address] Carl Zuñiga CO2 [Moles/Vol] 29.1 mmol/L Normal 21.0-32.0 [facility] Comment on above: Performed By: #### B ACCOUNTS OFFICER, CMP, HSTROPN #### [facility] [address] [address] [address] Carl Zuñiga Creatinine [Mass/Vol] 0.92 mg/dL Normal 0.55-1.02 [facility] Comment on above: Performed By: #### B ACCOUNTS OFFICER, CMP, HSTROPN #### [facility] [address] [address] [address] Carl Zuñiga EGFR-AF VIETNAMESE >60 Normal >=60 [facility] Comment on above: Performed By: #### B ACCOUNTS OFFICER, CMP, HSTROPN #### [facility] [address] [place] [address] Dr. Carl Zuñiga EGFR-NON AF VIETNAMESE >60 Normal >=60 [facility] Comment on above: Performed By: #### B ACCOUNTS OFFICER, CMP, HSTROPN #### [facility] [address] [address] [address] Carl Zuñiga Globulin (S) [Mass/Vol] 2.6 g/dL Normal [facility] Comment on above: Performed By: #### B ACCOUNTS OFFICER, CMP, HSTROPN #### [facility] [address] [address] [address] Carl Zuñiga Glucose [Mass/Vol] 109 mg/dL Critically high 74-106 [facility] Comment on above: Performed By: #### B ACCOUNTS OFFICER, CMP, HSTROPN #### [facility] [address] [address] [address] Carl Zuñiga Potassium [Moles/Vol] 3.9 mmol/L Normal 3.5-5.1 [facility] Comment on above: Performed By: #### B ACCOUNTS OFFICER, CMP, HSTROPN #### [facility] [address] [address] [address] Carl Zuñiga Protein [Mass/Vol] 6.5 g/dL Normal 6.4-8.2 [facility] Comment on above: Performed By: #### B ACCOUNTS OFFICER, CMP, HSTROPN #### [facility] [address] [address] [address] Carl Zuñiga Sodium [Moles/Vol] 138 mmol/L Normal 136-145 [facility] Comment on above: Performed By: #### B ACCOUNTS OFFICER, CMP, HSTROPN #### [facility] [address] [address] [address] Carl Zuñiga Urea nitrogen [Mass/Vol] 14.0 mg/dL Normal 7.0-18.0 [facility] Comment on above: Performed By: #### B ACCOUNTS OFFICER, CMP, HSTROPN #### [facility] [address] [address] [address] Carl Zuñiga Urea nitrogen/Creatini ne [Mass ratio] 15.2 mg/mg Normal [facility] Comment on above: Performed By: #### B ACCOUNTS OFFICER, CMP, HSTROPN #### [facility] [address] [address] [address] Carl Zuñiga TROPONIN, HIGH SENSITIVITYon 03-07-2022 HSTROP 2.8 pg/mL Critically low 4.0-51.3 [facility] Comment on above: Result Comment: CUT- OFF POINTS HAVE BEEN ESTABLISHED BASED ON THE FOURTH UNIVERSAL DEFINITIONS OF MYOCARDIAL INFARCTION. THE UPPER REFERENCE LIMIT (URL) OF TROPONIN, DEFINED THE 99TH PERCENTILE OF cTnI DISTRIBUTION IN A REFERENCE POPULATION, HAS BEEN CONFIRMED THE DECISION THRESHOLD FOR MD DIAGNOSIS. Performed By: #### B ACCOUNTS OFFICER, CMP, HSTROPN #### [facility] [address] [place] [address] Dr. Carl Zuñiga XR CHEST 1 Von 03-07-2022 XR CHEST 1 V EXAM: XR CHEST 1 V INDICATION: CHEST PAIN, UNSPECIFIED. COMPARISON: Chest radiograph 07/10/2021. TECHNIQUE: Single frontal view of the chest FINDINGS: Stable cardiomegaly. No consolidative process, pleural effusion, or pneumothorax. Normal pulmonary vasculature. No acute osseous abnormality. Large hiatal hernia. IMPRESSION: No acute cardiopulmonary process. Electronically authenticated by: DIANA BREAUX Date: 2022-03-07 10:05 Normal [facility] CT CSPINE WO CONon CT CSPINE WO CON EXAMINATION: CT CSPI NE WO CON HISTORY: UNSPECIFIED INJURY OF HEAD, INITIAL ENCOUNTER COMPARISON: None. TECHNIQUE: CT Cervical spine without IV contrast. Coronal and sagittal reformations were performed. Dose reduction techniques were achieved by using automated exposure control and/or adjustment of mA and/or kV according to patient size and/or use of iterative reconstruction technique. FINDINGS: There are no acute fractures. There is no prevertebral soft tissue swelling. There is mild reversal of the cervical lordosis. There is mild to moderate diffuse disc space narrowing with prominent disc osteophyte complexes present from C3-C4 through C6-C7. This in conjunction with uncovertebral hypertrophy at the above levels creates mild neural foraminal narrowing bilaterally throughout. Grossly there is no bony central canal stenosis. There is no gross evidence of adenopathy. The upper airway is patent. The lung apices are clear. IMPRESSION: Mild/moderate disc disease without fracture. Electronically authenticated by: MARQUES PATEL Date: 2021-07-10 02:[address] [facility] [address] HEAD WO CONon 07-10-2021 CT HEAD WO CON EXAMINATION: CT HEAD WO CON HISTORY: Injury of head COMPARISON: None. TECHNIQUE: CT examination of the head without IV contrast. Dose reduction techniques were achieved by using automated exposure control and/or adjustment of mA and/or kV according to patient size and/or use of iterative reconstruction technique. FINDINGS: The structures of the posterior fossa and supratentorial space are developmentally normal. Wiley/white matter differentiation is preserved throughout. No evident skull fracture, hemorrhage or acute ischemia. No midline shift or mass. Normal size of the ventricles and sulci for age. Normal orbits. Pneumatized portions of the skull are clear. IMPRESSION: No acute intracranial abnormality. Electronically authenticated by: MARQUES PATEL Date: 2021-07-10 02:44 Normal [facility] XR CHEST 1 Von 07-10-2021 XR CHEST 1 V XR CHEST 1 V 07/10/2021 12:40 AM EST Indication: Injury of head Technique: Portable AP radiograph of the chest was obtained. Comparison: None. Findings: The lungs are adequately inflated. No acute rib fractures, pneumothorax or mediastinal shift. No consolidation, edema, or effusion. Heart is normal in size and contour. There is a large hiatal hernia. Impression: No acute findings. Large hiatal hernia. Electronically authenticated by: MARQUES PATEL Date: 2021-07-10 02:46 Normal [facility] XR PELVIS 1_2 VIEWSon 2020 XR PELVIS 1_2 VIEWS CR, AP Pelvis 07/10/2021 12:40 AM EST Indication: Injury of head Technique: Routine AP pelvic radiograph was obtained. Comparison: None. Findings: Visualized osseous structures are normal in alignment and mineralization. No fractures noted. No joint destruction or dislocation. Soft tissues are unremarkable for age. Surgical clips project in the pelvis. Large amount of stool noted in the colon. Impression: 1. No acute findings. 2. Constipation. Electronically authenticated by: MARQUES PATEL Date: 2021-07-10 02:47 Normal [facility] Vital Signs Date Time Vital Sign Value Performing Clinician Carrol perez 08-03-2023 08:23-0500 Blood Pressure Location Pamela Benson [facility] Encounters Encounter Date Encounter Type Care Provider Facility Start: 08-04-2023 End: 08-05-2023 ambulatory Pamela Benson Facility:[facility] [place] Start: 08-04-2023 End: 08-04-2023 Lab Drop off Pamela Benson [facility] Start: 08-03-2023 End: 08-04-2023 ambulatory Pamela Benson Facility:[facility] Start: 08-03-2023 End: 08-03-2023 Patient encounter procedure Pamela Benson [facility] Start: 07-27-2023 End: 07-27-2023 ambulatory ASHLEY CRESPO Not Available Start: 07-22-2023 ambulatory Pamela Benson Facility[facility] Start: 07-06-2023 ambulatory Pamela Luglenn Facility:[facility] Start: 07-05-2023 End: 07-05-2023 ambulatory ASHLEY ZACARIAS Not Available Start: 05-25-2023 End: 05-25-2023 ambulatory ASHLEY ZACARIAS Not Available Start: 07-05-[address] RIVKA PAN Faci lity:H1 Start: 05-14-[address] YAYA Ruano ity:H1 Start: 03-07-[address] YAYA Ruano ity:H1 Start: 07-10-[address] RITA Ruano ity:H1 Procedures Date Procedure Procedure Detail Performing Clinician x3 Pamela Lue Immunizations Immunization Date Immunization Notes Care Provider Fa cility 05-27-2022 SARS-CoV-2 (COVID-19 ) [id number] Pamela Lue [facility] 06-12-2021 SARS-CoV-2 (COVID-19 ) mRNA BNT-162b2 vax Pamela Lue [facility] 08-13-2020 SARS-CoV-2 (COVID-19 ) mRNA BNT-162b2 vax Pamela Lue [facility] Comment on above: Result Comment: 2023: [id number] 07-23-2020 SARS-CoV-2 (COVID-19 ) mRNA BNT-162b2 vax Pamela Lue [facility] Comment on above: Result Comment: 2023: [id number] Payers Date Payer Category Payer Medicare [id number] 2020 Medicaid [id number] 2020 Medicare [id number] 1955 Unknown [id number] 1955 Unknown [id number] 1955 Unknown [id number] 1955 Unknown [id number] [id number] 1955 Unknown [id number] [id number] 1955 Unknown [id number] [id number] Social History Date Type Detail Facility Start: 08-03-2023 Tobacco smoking status Never s moked tobacco (finding) [facility] Sex Assigned At Female [facility] Functional Status Date Assessment Result Facility 08-03-2023 Functional Status N/A [facility] Evaluation + Plan note 08-04-2023 Note Date & Type Note Facility 08-04-2023 Evaluation + Plan note Diagnostic Tests PendingUrine Cytology ([facility]) 08/04/23 [facility] Hospital Discharge instructions 08-03-2023 Note Date & Type Note Facility 08-03-2023 Hospital Discharg e instructions Patient Education 08/03/2023 09:41:01 Ureteroscopy Ureteroscopy Ureteroscopy is a procedure to check for and treat problems inside part of the urinary tract. In this procedure, a long rigid or flexible tube with a lens and light at the end (ureteroscope) is used to look at the inside of the kidneys and the ureters. The ureters are the tubes that carry urine from the kidneys to the bladder. The ureteroscope is inserted into one or both of the ureters. You may need this procedure if you have frequent urinary tract infections (UTIs), blood in your urine, or a stone in one or both of your ureters. A ureteroscopy can be done: To find the cause of urine blockage in a ureter and to evaluate other abnormalities inside the ureters or kidneys. To remove stones. To remove or treat growths of tissue (polyps), abnormal tissue, and some types of tumors. To remove a tissue sample and check it for disease under a microscope (biopsy). Tell a health care provider about: Any allergies you have. All medicines you are taking, including vitamins, herbs, eye drops, creams, and rivi-csu-qgqbqex medicines. Any problems you or family members have had with anesthetic medicines. Any bleeding problems you have. Any surgeries you have had. Any medical conditions you have. Whether you are or may be . What are the risks? Your health care provider will talk with you about risks. These may include: Abdominal pain or a burning feeling or pain while urinating. Abnormal bleeding. A UTI. Allergic reactions to medicines. Scarring that narrows the ureter (stricture) or swelling. Creating a hole (perforation) in the ureter. Damage to other structures or organs, such as the part of your body that drains urine from your bladder (urethra), your bladder, or your uterus. What happens before the procedure? When to stop eating and drinking 8 hours before your procedure ?Stop eating most foods. Do not eat meat, fried foods, or fatty foods. ?Eat only light foods, such as toast or crackers. ?All liquids are okay except energy drinks and alcohol. 6 hours before your procedure ?Stop eating. ?Drink only clear liquids, such as water, clear fruit juice, black coffee, plain tea, and sports drinks. ?Do not drink energy drinks or alcohol. 2 hours before your procedure ?Stop drinking all liquids. ?You may be allowed to take medicines with small sips of water. Medicines Ask your health care provider about: Changing or stopping your regular medicines. These include any diabetes medicines or blood thinners you take. Taking medicines such as aspirin and ibuprofen. These medicines can thin your blood. Do not take these medicines unless your health care provider tells you to. Taking ibwu-kdp-idlcnew medicines, vitamins, herbs, and supplements. General instructions Do not use any products that contain nicotine or tobacco for at least 4 weeks before the procedure. These products include cigarettes, chewing tobacco, and vaping devices, such as e-cigarettes. If you need help quitting, ask your health care provider. If you will be going home right after the procedure, plan to have a responsible adult: ?Take you home from the hospital or clinic. You will not be allowed to drive. ?Care for you for the time you are told. Ask your health care provider what steps will be taken to help prevent infection. These may include: ?Washing skin with a soap that kills germs. ?Receiving antibiotic medicine. Tests You may have an exam or testing. ?You may have a urine sample taken to check for infection. What happens during the procedure? An IV will be inserted into one of your veins. You may be given: ?A sedative. This helps you relax. ?Anesthesia. This will: ?Numb certain areas of your body. ?Make you fall asleep for surgery. Your urethra will be cleaned with a germ-killing solution. The ureteroscope will be passed through your urethra into your bladder. A salt-water solution will be sent through the ureteroscope to fill your bladder. This will help the health care provider see the openings of your ureters more clearly. The ureteroscope will be passed into your ureter. ?If a growth is found, a biopsy may be done. ?If a stone is found, it may be removed through the ureteroscope, or the stone may be broken up using a laser, shock waves, or electrical energy. ?In some cases, if the ureter is too small, a tube may be inserted that keeps the ureter open (ureteral stent). The stent may be left in place for 1 or 2 weeks, and then the ureteroscopy procedure will be done again. The scope will be removed, and your bladder will be emptied. The procedure may vary among health care providers and hospitals. What happens after the procedure? Your blood pressure, heart rate, breathing rate, and blood oxygen level will be monitored until you leave the hospital or clinic. It is up to you to get the results of your procedure. Ask your health care provider, or the department that is doing the procedure, when your results will be ready. Summary Ureteroscopy is a procedure used to look at the inside of the kidneys and the ureters. You may need this procedure if you have frequent urinary tract infections (UTIs), blood in your urine, or a stone in one or both of your ureters. Follow instructions from your health care provider about eating and drinking. In some cases, if the ureter is too small, a tube may be inserted that keeps the ureter open (ureteral stent). The stent may be left in place for 1 or 2 weeks to keep the ureter open, and then the ureteroscopy procedure will be done again. This information is not intended to replace advice given to you by your health care provider. Make sure you discuss any questions you have with your health care provider. Document Revised: 10/22/2022 Document Reviewed: 10/22/2022 [employer] 2022 [employer]. 08/03/2023 09:37:21 Hematuria, Adult Hematuria, Adult Hematuria is blood in the urine. Blood may be visible in the urine, or it may be identified with a test. This condition can be caused by infections of the bladder, urethra, kidney, or prostate. Other possible causes include: Kidney stones. Cancer of the urinary tract. Too much calcium in the urine. Conditions that are passed from parent to child (inherited conditions). Exercise that requires a lot of energy. Infections can usually be treated with medicine, and a kidney stone usually will pass through your urine. If neither of these is the cause of your hematuria, more tests may be needed to identify the cause of your symptoms. It is very important to tell your health care provider about any blood in your urine, even if it is painless or the blood stops without treatment. Blood in the urine, when it happens and then stops and then happens again, can be a symptom of a very serious condition, including cancer. There is no pain in the initial stages of many urinary cancers. Follow these instructions at home: Medicines Take qanx-chd-kvsuhie and prescription medicines only as told by your health care provider. If you were prescribed an antibiotic medicine, take it as told by your health care provider. Do not stop taking the antibiotic even if you start to feel better. Eating and drinking Drink enough fluid to keep your urine pale yellow. It is recommended that you drink 3 4 quarts (2.8 3.8 L) a day. If you have been diagnosed with an infection, drinking cranberry juice in addition to large amounts of water is recommended. Avoid caffeine, tea, and carbonated beverages. These tend to irritate the bladder. Avoid alcohol because it may irritate the prostate (in males). General instructions If you have been diagnosed with a kidney stone, follow your health care provider's instructions about straining your urine to catch the stone. Empty your bladder often. Avoid holding urine for long periods of time. If you are female: ?After a bowel movement, wipe from front to back and use each piece of toilet paper only once. ?Empty your bladder before and after sex. Pay attention to any changes in your symptoms. Tell your health care provider about any changes or any new symptoms. It is up to you to get the results of any tests. Ask your health care provider, or the department that is doing the test, when your results will be ready. Keep all follow-up visits. This is important. Contact a health care provider if: You develop back pain. You have a fever or chills. You have nausea or vomiting. Your symptoms do not improve after 3 days. Your symptoms get worse. Get help right away if: You develop severe vomiting and are unable to take medicine without vomiting. You develop severe pain in your back or abdomen even though you are taking medicine. You pass a large amount of blood in your urine. You pass blood clots in your urine. You feel very weak or like you might faint. You faint. Summary Hematuria is blood in the urine. It has many possible causes. It is very important that you tell your health care provider about any blood in your urine, even if it is painless or the blood stops without treatment. Take oldm-tuo-mscvspg and prescription medicines only as told by your health care provider. Drink enough fluid to keep your urine pale yellow. This information is not intended to replace advice given to you by your health care provider. Make sure you discuss any questions you have with your health care provider. Document Revised: 02/25/2021 Document Reviewed: 02/25/2021 [employer] 2022 [employer]. Follow Up Care 07/13/2023 11:34:42 With:Marcelino GALLARDO, EMMY Gillespie, URO Address: When: Unknown Comments:Schedule Cysto, Rt ureteroscopy, possible biopsy, and Rt stent placement [facility] Evaluation + Plan note Note Date & Type Note Facility Evaluation + Plan note No data available for this section [facility] Hospital Discharge instructions Note Date & Type Note Facility Hospital Discharge instructions No data available for this section [facility] Progress note Note Date & Type Note Facility Progress note No data available for this section [facility] Summary Purpose Family History No Family History Records FoundNo Family History Records Found No data available for this section No data available for this section No Family History Records Found Advance Directives No Advanced Directives Records FoundNo Advanced Directives Records FoundNo Advanced Directives Records Found Additional Source Comments INFORMATION SOURCE (unrecogn ized section and content) DATE CREATED AUTHOR 07/05/2022 [facility] DATE CREATED AUTHOR AUTHOR'S ORGANIZ ATION 07/28/2023 [facility] EPIC DATE CREATED AUTHOR AUTHOR'S ORGANIZ ATION 08/10/2023 [facility] Patient Care team informatio n (unrecognized section and content) Personnel Name: YAYA LANGLEY JR, DO Address: Address: [address] [place] [id number] Personnel Name: YAYA LANGLEY JR, DO Address: Address: [address] [place], [place] [id number] FOR RECORDS PERTAINING TO PATIENTS WHO ARE OR HAVE BEEN ENROLLED IN A CHEMICAL DEPENDENCY/SUBSTANCEABUSE PROGRAM, SOME INFORMATION MAY BE OMITTED. This clinical summary was aggregated from multiple sources. Caution should be exercised in using it in the provision of clinical care. This summary normalizes information from multiple sources, and as a consequence, information in this document may materially change the coding, format and clinical context of patient data. In addition, data may be omitted in some cases. CLINICAL DECISIONS SHOULD BE BASED ON THE PRIMARY CLINICAL RECORDS. [facility]. provides no warranty or guarantee of the accuracy or completeness of information in this document.
== END 2023-07-05 16:12 | disposition home or self-care (01) ==
LOC: LAB 16:11
PROVIDERS: Visit Provider Obstetrics & Gynecology
DX: R87.612 Low grade squamous intraepithelial lesion on cytologic smear of cervix (LGSIL) (principal)
CPT/HCPCS: 88305; 88341; 88342

== ENCOUNTER 2023-08-15 09:46 | Outpatient (OUT) | payer MEDICARE, MEDICAID, SELFPAY ==
--- OUTSIDE RECORDS SUMMARY | 2023-08-15 09:50 | XMS_ITS | CCD ---
Author Name Unknown Address [address] [place] [address] Organization [facility] Care Team Providers Care [employer] Consultant Name Role Phone MARKER, DR SALINAS Consulting Unavailable VALONE, DR JAVIER Primary Care Unavailable MARKER, DR SALINAS Attending Unavailable MARKER, DR SALINAS Admitting Unavailable BENEDICT, DR TINEO Admitting Unavailable BENEDICT, DR TINEO Attending Unavailable VALONE, DR JAVIER Attending Unavailable VALONE, DR JAVIER Admitting Unavailable VALONE, DR JAVIER Primary Care Unavailable SABAECK, DR NANI Haley Admitting Unavailalice NAVARRETE, DR NANI Haley Attending UnavailASHLEY Tucker Attending Unavailable ASHLEY CRESPO Attending Unavailable ASHLEY CRESPO Attending Unavailable YAYA LANGLEY JR Primary Care Physician Pamela Benson Attending Unavailable Ashley CRESPO Referring Unavailable Pamela Benson Attending Unavailable Pamela Benson Admitting Unavailable Pamela Benson [...] source) Long-term current use of aspirin; 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] Onset: 4 Episodic [...] Translations: [Personal history of nicotine dependence] Onset: 4 Episodic Unclassified (2 sources) Finding of sensation of bladder 08-03-2023 Unclassified (2 sources) Long-term current use of aspirin 08-03-2023 Past or Other Problems Problem Classification Problem Date Documented Da te Episodic/Chronic Unclassified (2 sources) pysch hx 09-24-2010 Results Test Name Value Interpretation Reference Range Facility Consent for Procedure/Surger yon 08-09-2023 Consent for Procedure/Surgery [id number] Normal [facility] Urine Cytology ([facility])on 0 08-09-2023 Urine Cytology Diagnosis Info Invalid Interpretation Code [facility] Comment on above: Result Comment: A:Ur ine,Urine:Voided Interpretation - MicroScopic Description - Adequacy - Gross Description Site ID:A color Dark Yellow fixative Alcohol Specimen designated Urine received in alcohol preservative and labeled with the patient?s name, consists of 110ml slightly cloudy dark yellow fluid. Electronically signed by : on: 08/09/2023 11:46:02 Performed By: #### 1 [id number] #### [facility] [address] [place] [address] Physician Referralon 024 Physician Referral [id number] Normal [facility] Screenson 08-04-2023 Screens [id number] Normal [facility] Urine Cytology ([facility])on 0 08-04-2023 Method of Extraction Voided Normal [facility] Comment on above: Performed By: #### 1 [id number] #### [facility] [address] [place] [address] Number of Jars 1 Invalid Interpretation Code [facility] Comment on above: Performed By: #### 1 [id number] #### [facility] [address] [place] [address] UC Specimen Urine Normal [facility] Comment on above: Performed By: #### 1 [id number] #### [facility] [address] [facility] [place] [address] UC Type of Service Technical Only Normal [facility] Comment on above: Performed By: #### 1 [id number] #### [facility] [address] [place] [address] Ambulatory Visit Summaryon 0 08-03-2023 Ambulatory Visit Summary STEVE JOHNSON :1955 Visit Date:08/03/2023 Ambulatory Visit Instructions Your Diagnosis Ureteral dilatation Gross hematuria Former smoker Aspirin long-term use Your Care Team Attending Physician - Pamela Benson MD Primary Care Physician - YAYA LANGLEY JR, DO Referring Physician - Ashley CRESPO DO This Is Your Medications List Contact [...] the caus (more content not included)... Normal [facility] Recordson 08-03 Intermediate Records [id number] Normal [facility] Patient Educationon 08-03-19 Patient Education Urology [...] including vitamins, herbs, eye drops, creams, and fmss-fay-aostwfo medicines. ? Any problems you or family [...] care provider tells you to. ? Taking ghas-rba-evkidao medicines, vitamins, herbs, and supplements. General instructions [...] be monitor (more content not included)... 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 *possible abnormality of urinary system. Ordered due to rectal bleeding. Pt is a new pt. Never before seen in our office. Pt is hard of hearing she can read lips and she has an nurses aid from her home ([facility]) CT abdomen pelvis wo/w con done @ [facility] on 06/06/23 She tried giving a urine [...] age Assessment/Plan 68 yo female resident of [facility] here for new patient evaluation of right hydroureteronephrosis. Pt is hard of hearing, can read lips and she has a nurses aid from her home with her. Mother had lung cancer. Denies any other urologic surgeries. 1. Hydroureteronephrosis (N13.30: Unspecified hydronephrosis) CT AP wo/w PO con @ [facility] on 06/06/23 - mod Rt-sided collecting system [...] cysto, if patient unable to submit from [facility] prior 3. Former smoker (Z87.891: Personal history of nicotine dependence) Smoked for a very little amount of time. 4. 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 Normal [facility] Comment on above: Result Comment: Elec tronically Signed By: Pamela Benson MD\.br\Date and Time Signed: 08/03/23 19:48 EST\.br\Electronically Co-Signed By: Martha Major\.br\Date and Time Co-Signed: 08/03/23 09:41 EST MRI [...] RIVKA FRAZIER Date: 2022-07-05 15:47 Normal [facility] MAMM SCREEN 3D DERRICK CADon 05-14-2022 MAMM SCREEN 3D DERRICK CAD Patient: STEVE JOHNSON Exam Date: 05/14/2022 : 1955 Gender:F Ordering : DR YAYA LANGLEY D.O. Admission #: [id number] Family : Order #: [id number] CLICK HERE TO VIEW EXAM RADIOLOGY REPORT [...] No Treatments None Family Cancers None LOCATION: [facility] BREAST COMPOSITION: Almost entirely fatty. FINDINGS: DIAGNOSTIC [...] MD on 05/14/2022 at 12:49 Normal [facility] BNPon 03-07-2022 Natriuretic peptide B (Bld) [Mass/Vol] 115.0 pg/mL Normal <=900.0 [facility] Comment on above: Performed By: #### B CLINIC OFFICE ASSISTANT, CMP, HSTROPN #### [facility] [address] [place] [address] Dr. Carl Zuñiga CBC AUTO DIFFon 03-07-2022 BASO # 0.0 103/ul Normal 0.0-0.1 [facility] Comment on above: Performed By: #### B CLINIC OFFICE ASSISTANT, CMP, HSTROPN #### [facility] [address] [place] [address] Dr. Carl Zuñiga Basophils/100 WBC (Bld) 0.0 % Critically low 0.2-2.0 [facility] Comment on above: Performed By: #### B CLINIC OFFICE ASSISTANT, CMP, HSTROPN #### [facility] [address] [place] [address] Dr. Carl Zuñiga EO # 0.1 103/ul Normal 0.0-0.7 [facility] Comment on above: Performed By: #### B CLINIC OFFICE ASSISTANT, CMP, HSTROPN #### [facility] [address] [place] [address] Dr. Carl Zuñiga Eosinophils/100 WBC (Bld) 1.0 % Normal 0.9-7.0 [facility] Comment on above: Performed By: #### B CLINIC OFFICE ASSISTANT, CMP, HSTROPN #### [facility] [address] [place] [address] Dr. Carl Zuñiga Erythrocyte distribution width (RBC) [Ratio] 13.7 % Normal 11.0-15.0 [facility] Comment on above: Performed By: #### B CLINIC OFFICE ASSISTANT, CMP, HSTROPN #### [facility] [address] [place] [address] Dr. Carl Zuñiga Hematocrit (Bld) [Volume fraction] 40.8 % Normal 36.0-48.0 [facility] Comment on above: Performed By: #### B CLINIC OFFICE ASSISTANT, CMP, HSTROPN #### [facility] [address] [place] [address] Dr. Carl Zuñiga Hemoglobin (Bld) [Mass/Vol] 13.1 g/dL Normal 12.0-16.0 [facility] Comment on above: Performed By: #### B CLINIC OFFICE ASSISTANT, CMP, HSTROPN #### [facility] [address] [place] [address] Dr. Carl Zuñiga IG # 0.02 10e3/ul Normal 0.00-0.03 [facility] Comment on above: Performed By: #### B CLINIC OFFICE ASSISTANT, CMP, HSTROPN #### [facility] [address] [place] [address] Dr. Carl Zuñiga IG % 0.3 % Normal 0.0-0.5 [facility] Comment on above: Performed By: #### B CLINIC OFFICE ASSISTANT, CMP, HSTROPN #### [facility] [address] [place] [address] Dr. Carl Zuñiga LYMPH # 0.9 103/ul Critically low 1.2-3.8 [facility] Comment on above: Performed By: #### B CLINIC OFFICE ASSISTANT, CMP, HSTROPN #### [facility] [address] [place] [address] Dr. Carl Zuñiga Lymphocytes/100 WBC (Bld) 13.9 % Critically low 20.5-60.0 [facility] Comment on above: Performed By: #### B CLINIC OFFICE ASSISTANT, CMP, HSTROPN #### [facility] [address] [place] [address] Dr. Carl Zuñiga MANUAL DIFF REQ NO Normal [facility] Comment on above: Performed By: #### B CLINIC OFFICE ASSISTANT, CMP, HSTROPN #### [facility] [address] [place] [address] Dr. Carl Zuñiga MCH (RBC) [Entitic mass] 30.8 pg Normal 26.7-34.0 [facility] Comment on above: Performed By: #### B CLINIC OFFICE ASSISTANT, CMP, HSTROPN #### [facility] [address] [place] [address] Dr. Carl Zuñiga MCHC (RBC) [Mass/Vol] 32.1 g/dL Normal 29.9-35.2 [facility] Comment on above: Performed By: #### B CLINIC OFFICE ASSISTANT, CMP, HSTROPN #### [facility] [address] [place] [address] Dr. Carl Zuñiga MCV (RBC) [Entitic vol] 96.0 fL Normal 81.0-99.0 [facility] Comment on above: Performed By: #### B CLINIC OFFICE ASSISTANT, CMP, HSTROPN #### [facility] [address] [place] [address] Dr. Carl Zuñiga MONO # 0.6 103/ul Normal 0.3-0.8 [facility] Comment on above: Performed By: #### B CLINIC OFFICE ASSISTANT, CMP, HSTROPN #### [facility] [address] [place] [address] Dr. Carl Zuñiga Monocytes/100 WBC (Bld) 9.2 % Normal 1.7-12.0 [facility] Comment on above: Performed By: #### B CLINIC OFFICE ASSISTANT, CMP, HSTROPN #### [facility] [address] [place] [address] Dr. Carl Zuñiga NEUT # 5.1 103/ul Normal 1.4-6.5 [facility] Comment on above: Performed By: #### B CLINIC OFFICE ASSISTANT, CMP, HSTROPN #### [facility] [address] [place] [address] Dr. Carl Zuñiga Neutrophils/100 WBC (Bld) 75.6 % Critically high 43.0-75.0 [facility] Comment on above: Performed By: #### B CLINIC OFFICE ASSISTANT, CMP, HSTROPN #### [facility] [address] [place] [address] Dr. Carl Zuñiga Platelet mean volume (Bld) [Entitic vol] 8.5 fL Critically low 9.5-13.5 [facility] Comment on above: Performed By: #### B CLINIC OFFICE ASSISTANT, CMP, HSTROPN #### [facility] [address] [place] [address] Dr. Carl Zuñiga PLT 206 103/ul Normal 150-450 [facility] Comment on above: Performed By: #### B CLINIC OFFICE ASSISTANT, CMP, HSTROPN #### [facility] [address] [place] [address] Dr. Carl Zuñiga RBC 4.25 106/ul Normal 4.20-5.40 [facility] Comment on above: Performed By: #### B CLINIC OFFICE ASSISTANT, CMP, HSTROPN #### [facility] [address] [place] [address] Dr. Calr Zuñiga WBC 6.7 103/ul Normal 4.0-11.0 [facility] Comment on above: Performed By: #### B CLINIC OFFICE ASSISTANT, CMP, HSTROPN #### [facility] [address] [place] [address] Dr. Carl Zuñiga D-DIMERon 03-07-2022 D-DIMER <0.19 Normal <=0.59 [facility] Comment on above: Performed By: #### D DIM #### [facility] [address] [place] [address] Dr. Carl Zuñiga D-DIMER COMMENTS SEE BELOW Normal [facility] Comment on above: Result Comment: Incr eases [...] hospitalization. Performed By: #### D DIM #### [facility] [address] [place] [address] Dr. Carl Zuñiga PROF 14(COMP METB)on 022 Albumin [Mass/Vol] 3.9 g/dL Normal 3.4-5.0 [facility] Comment on above: Performed By: #### B CLINIC OFFICE ASSISTANT, CMP, HSTROPN #### [facility] [address] [place] [address] Dr. Carl Zuñiga Albumin/Globulin [Mass ratio] 1.5 {ratio} Normal [facility] Comment on above: Performed By: #### B CLINIC OFFICE ASSISTANT, CMP, HSTROPN #### [facility] [address] [place] [address] Dr. Carl Zuñiga ALP [Catalytic activity/Vol] 96 U/L Normal 46-116 [facility] Comment on above: Performed By: #### B CLINIC OFFICE ASSISTANT, CMP, HSTROPN #### [facility] [address] [place] [address] Dr. Carl Zuñiga ALT [Catalytic activity/Vol] 38 U/L Normal 14-59 [facility] Comment on above: Performed By: #### B CLINIC OFFICE ASSISTANT, CMP, HSTROPN #### [facility] [address] [place] [address] Dr. Carl Zuñiga Anion gap [Moles/Vol] 9.8 mmol/L Normal [facility] Comment on above: Performed By: #### B CLINIC OFFICE ASSISTANT, CMP, HSTROPN #### [facility] [address] [place] [address] Dr. Carl Zuñiga AST [Catalytic activity/Vol] 16 U/L Normal 15-37 [facility] Comment on above: Performed By: #### B CLINIC OFFICE ASSISTANT, CMP, HSTROPN #### [facility] [address] [place] [address] Dr. Carl Zuñiga Bilirubin [Mass/Vol] 0.5 mg/dL Normal 0.2-1.0 [facility] Comment on above: Performed By: #### B CLINIC OFFICE ASSISTANT, CMP, HSTROPN #### [facility] [address] [place] [address] Dr. Carl Zuñiga Calcium [Mass/Vol] 9.2 mg/dL Normal 8.5-10.1 [facility] Comment on above: Performed By: #### B CLINIC OFFICE ASSISTANT, CMP, HSTROPN #### [facility] [address] [place] [address] Dr. Carl Zuñiga Chloride [Moles/Vol] 103 mmol/L Normal 98-107 [facility] Comment on above: Performed By: #### B CLINIC OFFICE ASSISTANT, CMP, HSTROPN #### [facility] [address] [address] [address] Carl Zuñiga CO2 [Moles/Vol] 29.1 mmol/L Normal 21.0-32.0 [facility] Comment on above: Performed By: #### B CLINIC OFFICE ASSISTANT, CMP, HSTROPN #### [facility] [address] [address] [address] Carl Zuñiga Creatinine [Mass/Vol] 0.92 mg/dL Normal 0.55-1.02 [facility] Comment on above: Performed By: #### B CLINIC OFFICE ASSISTANT, CMP, HSTROPN #### [facility] [address] [address] [address] Carl Zuñiga EGFR-AF NICARAGUAN >60 Normal >=60 [facility] Comment on above: Performed By: #### B CLINIC OFFICE ASSISTANT, CMP, HSTROPN #### [facility] [address] [place] [address] Dr. Carl Zuñiga EGFR-NON AF NICARAGUAN >60 Normal >=60 [facility] Comment on above: Performed By: #### B CLINIC OFFICE ASSISTANT, CMP, HSTROPN #### [facility] [address] [address] [address] Carl Zuñiga Globulin (S) [Mass/Vol] 2.6 g/dL Normal [facility] Comment on above: Performed By: #### B CLINIC OFFICE ASSISTANT, CMP, HSTROPN #### [facility] [address] [address] [address] Carl Zuñiga Glucose [Mass/Vol] 109 mg/dL Critically high 74-106 [facility] Comment on above: Performed By: #### B CLINIC OFFICE ASSISTANT, CMP, HSTROPN #### [facility] [address] [address] [address] Carl Zuñiga Potassium [Moles/Vol] 3.9 mmol/L Normal 3.5-5.1 [facility] Comment on above: Performed By: #### B CLINIC OFFICE ASSISTANT, CMP, HSTROPN #### [facility] [address] [address] [address] Carl Zuñiga Protein [Mass/Vol] 6.5 g/dL Normal 6.4-8.2 [facility] Comment on above: Performed By: #### B CLINIC OFFICE ASSISTANT, CMP, HSTROPN #### [facility] [address] [address] [address] Carl Zuñiga Sodium [Moles/Vol] 138 mmol/L Normal 136-145 [facility] Comment on above: Performed By: #### B CLINIC OFFICE ASSISTANT, CMP, HSTROPN #### [facility] [address] [address] [address] Carl Zuñiga Urea nitrogen [Mass/Vol] 14.0 mg/dL Normal 7.0-18.0 [facility] Comment on above: Performed By: #### B CLINIC OFFICE ASSISTANT, CMP, HSTROPN #### [facility] [address] [address] [address] Carl Zuñiga Urea nitrogen/Creatini ne [Mass ratio] 15.2 mg/mg Normal [facility] Comment on above: Performed By: #### B CLINIC OFFICE ASSISTANT, CMP, HSTROPN #### [facility] [address] [address] [address] Carl Zuñiga TROPONIN, HIGH SENSITIVITYon 03-07-2022 HSTROP 2.8 pg/mL Critically low 4.0-51.3 [facility] Comment on above: Result Comment: CUT- OFF POINTS HAVE BEEN ESTABLISHED BASED ON THE FOURTH UNIVERSAL DEFINITIONS OF MYOCARDIAL INFARCTION. THE UPPER REFERENCE LIMIT (URL) OF TROPONIN, DEFINED THE 99TH PERCENTILE OF cTnI DISTRIBUTION IN A REFERENCE POPULATION, HAS BEEN CONFIRMED THE DECISION THRESHOLD FOR SD DIAGNOSIS. Performed By: #### B CLINIC OFFICE ASSISTANT, CMP, HSTROPN #### [facility] [address] [address] [address] Carl Zuñiga XR CHEST 1 Von [...] DIANA BREAUX Date: 2022-03-07 10:05 Normal [facility] CT CSPINE WO CONon CT CSPINE [...] MARQUES PATEL Date: 2021-07-10 02:49 Normal [facility] CT HEAD WO CONon 07-10-2021 CT [...] MARQUES PATEL Date: 2021-07-10 02:44 Normal [facility] XR CHEST 1 Von 07-10-2021 XR [...] by: MARQUES PATEL Date: 2021-07-10 02:46 Normal [facility] XR PELVIS 1_2 VIEWSon 2020 XR PELVIS [...] by: MARQUES PATEL Date: 2021-07-10 02:47 Normal [facility] Vital Signs Date Time Vital Sign Value Performing Clinician Carrol perez 08-03-2023 08:23-0500 Blood Pressure Location Pamela Benson [facility] Encounters Encounter Date Encounter Type Care Provider Facility Start: 08-24-2023 ambulatory Pamela Barcenase Facility:[facility] Start: 08-04-2023 End: 08-05-2023 ambulatory Pamela MStacey [place] [place]: 08-04-2023 End: 08-04-2023 Lab Drop off Pamela Benson [facility] Start: 08-03-2023 End: 08-04-2023 ambulatory Pamela M. Lue Facility:[facility] Start: 08-03-2023 End: 08-03-2023 Patient encounter procedure Pamela Benson [facility] Start: 07-27-2023 End: 07-27-2023 ambulatory ASHLEY CRESPO Not Available Start: 07-22-2023 ambulatory Pamela Benson Facility[facility] Start: 07-06-2023 ambulatory Pamela Lue Facility:[facility] Start: 07-05-2023 End: 07-05-2023 ambulatory ASHLEY CRESPO Not Available Start: 05-25-2023 End: 05-25-2023 ambulatory ASHLEY LIUO Not Available Start: 07-05-[address] RIVKA PAN Faci lity:H1 Start: 05-14-[address] YAYA LANGLEY Facil ity:H1 Start: 03-07-[address] YAYA LANGLEY Facil ity:H1 Start: 07-10-[address] RITA Ruano ity:H1 Procedures Date Procedure Procedure Detail Performing Clinician x3 Pamela Lue Immunizations Immunization Date Immunization Notes Care Provider Jairo burton 05-27-2022 SARS-CoV-2 (COVID-19 ) [id number] Pamela Lue [facility] 06-12-2021 SARS-CoV-2 (COVID-19 ) mRNA BNT-162b2 vax Pamela Lue [facility] 08-13-2020 SARS-CoV-2 (COVID-19 ) mRNA BNT-162b2 vax Pamela Lue [facility] Comment on above: Result Comment: 2023: [id number] 07-23-2020 SARS-CoV-2 (COVID-19 ) mRNA BNT-162b2 vax Pamela Lue [facility] Comment on above: Result Comment: 2023: [id number] Payers Date Payer Category Payer Medicare [id number] 2020 Medicaid [id number] 2020 Medicare [id number] 1955 Unknown [id number] 2.16.84 [id number] 1955 Unknown [id number] 1955 Unknown [id number] 1955 Unknown [id number] 2.16.8 [id number] 1955 Unknown [id number] 2.16.8 [id number] 1955 Unknown [id number] 2.16.8 [id number] Social History Date Type Detail Facility Start: 08-03-2023 Tobacco smoking status Never s moked tobacco (finding) [facility] Sex Assigned At Female [facility] Functional Status Date Assessment Result Facility 08-03-2023 Functional Status N/A [facility] Evaluation + Plan note 08-04-2023 Note Date & Type Note Facility 08-04-2023 Evaluation + Plan note Diagnostic Tests PendingUrine Cytology ([facility]) 08/04/23 [facility] Discharge instructions 08-03-2023 Note Date & [...] including vitamins, herbs, eye drops, creams, and uuab-zes-fsdinei medicines. Any problems you or family members [...] health care provider tells you to. Taking sqoq-ixo-ypmopwp medicines, vitamins, herbs, and supplements. General instructions [...] provider. Document Revised: 10/22/2022 Document Reviewed: 10/22/2022 [employer] Patient Education 2022 [employer]. 08/03/2023 09:37:21 Hematuria, Adult Hematuria, Adult Hematuria [...] Follow these instructions at home: Medicines Take hole-zgv-rylmkud and prescription medicines only as told by [...] or the blood stops without treatment. Take idbr-sox-hiiksmt and prescription medicines only as told by your health care provider. Drink enough fluid to keep your urine pale yellow. This information is not intended to replace advice given to you by your health care provider. Make sure you discuss any questions you have with your health care provider. Document Revised: 02/25/2021 Document Reviewed: 02/25/2021 [employer] Patient Education 2022 [employer]. Follow Up Care 07/13/2023 11:34:42 With:Marcelino GALLARDO, Pamela Fam, URL, URO Address: When: Unknown Comments:Schedule Cysto, Rt ureteroscopy, possible biopsy, and Rt stent placement [facility] Evaluation + Plan note Note Date & Type Note Facility Evaluation + Plan note No data available for this section [facility] Hospital Discharge instructions Note Date & Type Note Facility Hospital Discharge instructions No data available for this section [facility] Progress note Note Date & Type Note Facility Progress note No data available for this section [facility] Summary Purpose Family History No Family History [...] DATE CREATED AUTHOR AUTHOR'S ORGANIZ ATION 07/28/2023 [facility] EPIC DATE CREATED AUTHOR AUTHOR'S ORGANIZ ATION 08/13/2023 [facility] Patient Care team informatio n (unrecognized section and content) Personnel Name: AYYA LANGLEY JR, DO Address: Address: [address] [place] [phone] Personnel Name: YAYA LANGLEY JR, DO Address: Address: [address] [place] [phone] FOR RECORDS PERTAINING TO PATIENTS WHO ARE [...] BE BASED ON THE PRIMARY CLINICAL RECORDS. [facility] [employer] [facility]. provides no warranty or guarantee of the accuracy or completeness of information in this document.
--- NOTE | 2023-08-15 09:51 | ECG_ITS ---
The [facility] Test Date: 2023-08-15 Pat Name: STEVE JOHNSON Department: Room: - Gender: Female Second Miller: : 1955 Requested By: ASHLEY ADAMES Order Number: [id number] Reading MD: CONSTANCE BARRON Measurements Intervals [place] Rate: 64 P: 52 KS: 176 QRS: 2 QRSD: 88 T: 20 QT: 389 QTc: 404 Interpretive Statements SINUS RHYTHM POSSIBLE ANTERIOR MYOCARDIAL INFARCTION [30 ms Q WAVE IN V3/V4, OR R < 0.2 mV IN V4], PROBABLY OLD INFERIOR MYOCARDIAL INFARCTION [40+ ms Q WAVE AND/OR ST/T ABNORMALITY IN II/aVF], PROBABLY OLD Non-Specific T wave inversion in III Compared to ECG 03/07/2022 09:32:00 No significant changes Electronically Signed On 08-18-2023 5:28:42 EST by CONSTANCE BARRON
--- NOTE | 2023-08-15 09:51 | XR_ITS ---
The [address] [address] Patient Name: STEVE JOHNSON MRN: [id number] date: 1955 Sex: F Assigned Patient Location: [facility] Current Patient Location: [facility] Accession/Order Number: [id number] Exam Date: 08/15/2023 10:39 Report Date: 08/15/2023 11:07 At the request of: ASHLEY ADAMES Procedure: XR chest 2V EXAM: XR chest 2V HISTORY: Preop exam COMPARISON: Chest study dated 03/07/2022 TECHNIQUE: PA and lateral views of the chest were obtained. FINDINGS: Heart and mediastinal contours are unremarkable in appearance. No acute infiltrate or consolidations are seen. No obvious pneumothorax. Moderate size hiatal hernia with air-fluid level similar to the prior CT abdomen and pelvis studies dated 06/06/2023. Slight convexity of the mid dorsal spine to the right. IMPRESSION: No acute process seen in the chest. Finding compatible with moderate size hiatal hernia similar to prior CT study. Electronically authenticated by: RENE OVALLE Date: 08/15/2023 11:07
[2023-08-15 11:10] LABS: Basophils Percent Auto 0.3 % (0.2-2.0); Eosinophils Absolute Auto 0.5 10^3/uL (0.0-0.7); Hematocrit 34.1 % (36.0-48.0); Hemoglobin 10.7 g/dL (12.0-16.0); Immature Granulocytes Abs Auto 0.03 10^3/uL (0.00-0.03); Immature Granulocytes Pct Auto 0.3 % (0.0-0.5); Lymphocytes Absolute Auto 1.4 10^3/uL (1.2-3.8); Lymphocytes Percent Auto 15.3 % (20.5-60.0); Mean Corpuscular HGB Conc 31.4 g/dL (29.9-35.2); Mean Corpuscular Hemoglobin 29.7 pg (26.7-34.0); Mean Corpuscular Volume 94.7 fL (81.0-99.0); Mean Platelet Volume 8.5 fL (9.5-13.5); Monocytes Percent Auto 11.5 % (1.7-12.0); Neutrophils Absolute Auto 6.1 10^3/uL (1.4-6.5); Neutrophils Percent Auto 67.6 % (43.0-75.0); Platelet Count 385 10^3/uL (150-450); Red Cell Distribution Width 15.1 % (11.0-15.0)
[2023-08-15 11:19] LABS: INR 0.95; Partial Thromboplastin Time 27.5 sec (22.3-36.2); Prothrombin Time 10.1 sec (9.0-11.6)
[2023-08-15 11:22] LABS: Anion Gap 13.9; BUN Creatinine Ratio 16.5; Calcium 9.1 mg/dL (8.5-10.1); Carbon Dioxide 26.5 mmol/L (21.0-32.0); Chloride 106 mmol/L (98-107); Estimated GFR (African America >60 (>=60); Estimated GFR (Non-African Ame 50 (>=60); Glucose 92 mg/dL (74-106); Potassium 4.4 mmol/L (3.5-5.1); Sodium 142 mmol/L (136-145)
== END 2023-08-15 09:47 | disposition home or self-care (01) ==
LOC: PST 09:47
PROVIDERS: Visit Provider Obstetrics & Gynecology
DX: Z01.812 Encounter for preprocedural laboratory examination (principal); Z01.810 Encounter for preprocedural cardiovascular examination; R87.613 High grade squamous intraepithelial lesion on cytologic smear of cervix (HGSIL); N95.0 Postmenopausal bleeding; R93.89 Abnormal findings on diagnostic imaging of other specified body structures; I10 Essential (primary) hypertension; Z79.01 Long term (current) use of anticoagulants; J44.9 Chronic obstructive pulmonary disease, unspecified
CPT/HCPCS: 71046; 80048; 85025; 85610; 85730; 93005

== ENCOUNTER 2023-08-17 01:49 | Outpatient (REF) | payer MEDICARE, MEDICAID, SELFPAY ==
--- OUTSIDE RECORDS SUMMARY | 2023-08-17 01:52 | XMS_ITS | CCD ---
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] Onset: 4 Episodic [...] for Procedure/Surger yon 08-09-2023 Consent for Procedure/Surgery [id number] Normal [facility] Urine Cytology ([facility])on 0 08-09-2023 Urine Cytology Diagnosis Info Invalid Interpretation Code [facility] Comment on above: Result Comment: A:Ur ine,Urine:Voided Interpretation - MicroScopic Description - Adequacy - Gross Description Site ID:A color Dark Yellow fixative Alcohol Specimen designated Urine received in alcohol preservative and labeled with the patient?s name, consists of 110ml slightly cloudy dark yellow fluid. Electronically signed by : on: 08/09/2023 11:46:02 Performed By: #### 1 [id number] #### [facility] Laboratory [address] [place] [address] Physician Referralon 024 Physician Referral [id number] Normal [facility] Screenson 08-04-2023 Screens [id number] Normal [facility] Urine Cytology ([facility])on 0 08-04-2023 Method of Extraction Voided Normal [facility] Comment on above: Performed By: #### 1 [id number] #### [facility] Laboratory [address] [place] [address] Number of Jars 1 Invalid Interpretation Code [facility] Comment on above: Performed By: #### 1 [id number] #### [facility] Laboratory [address] [place] [address] UC Specimen Urine Normal [facility] Comment on above: Performed By: #### 1 [id number] #### [facility] Laboratory [address] [facility] [place] [address] UC Type of Service Technical Only Normal [facility] Comment on above: Performed By: #### 1 [id number] #### [facility] Laboratory [address] [place] [address] Ambulatory Visit Summaryon 0 08-03-2023 Ambulatory Visit [...] the caus (more content not included)... Normal [facility] Home Recordson 08-03 [facility] [id number] Normal [facility] Patient Educationon 08-03-19 Patient Education Urology Ureteroscopy [...] including vitamins, herbs, eye drops, creams, and barr-flg-sxcirhw medicines. ? Any problems you or family [...] care provider tells you to. ? Taking ddzg-kte-yfrqmty medicines, vitamins, herbs, and supplements. General instructions [...] be monitor (more content not included)... Normal [facility] Urology Office/Clinic Noteon 08-03-2023 Urology Office/Clinic Note Chief Complaint Attending Ambulatory Care for abnormalitties in urinary system HPI Staff Evaluation requested by Dr Ashley Crespo due to incidental findings on CT 06/06/23. *possible abnormality of urinary system. Ordered due to rectal bleeding. Pt is a new pt. Never before seen in our office. Pt is hard of hearing she can read lips and she has an nurses aid from her home ([facility]) CT abdomen pelvis wo/w con done @ [facility] on 06/06/23 She tried giving [...] age Assessment/Plan 68 yo female resident of [facility] here for new patient evaluation of right hydroureteronephrosis. Pt is hard of hearing, can read lips and she has a nurses aid from her home with her. Mother had lung cancer. Denies any other urologic surgeries. 1. Hydroureteronephrosis (N13.30: Unspecified hydronephrosis) CT AP wo/w PO con @ [facility] on 06/06/23 - mod Rt-sided collecting system [...] cysto, if patient unable to submit from [facility] prior 3. Former smoker (Z87.891: Personal history of nicotine dependence) Smoked for a very little amount of time. 4. 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 Normal [facility] Comment on above: Result Comment: Elec tronically [...] RIVKA FRAZIER Date: 2022-07-05 15:47 Normal [facility] MAMM SCREEN 3D DERRICK CADon 05-14-2022 MAMM SCREEN 3D DERRICK CAD Patient: STEVE JOHNSON Exam Date: 05/14/2022 : 1955 Gender:F Ordering : DR YAYA LANGLEY D.O. Admission #: [id number] Family : Order #: [id number] CLICK HERE TO VIEW EXAM RADIOLOGY REPORT [...] No Treatments None Family Cancers None LOCATION: [facility] BREAST COMPOSITION: Almost entirely fatty. FINDINGS: [...] MD on 05/14/2022 at 12:49 Normal [facility] BNPon 03-07-2022 Natriuretic peptide B (Bld) [Mass/Vol] 115.0 pg/mL Normal <=900.0 [facility] Comment on above: Performed By: #### B EARLY CHILDHOOD SPECIALIST, CMP, HSTROPN #### [facility] Laboratory [address] [place] [address] Dr. Carl Zuñiga CBC AUTO DIFFon 03-07-2022 BASO # 0.0 103/ul Normal 0.0-0.1 [facility] Comment on above: Performed By: #### B EARLY CHILDHOOD SPECIALIST, CMP, HSTROPN #### [facility] [address] [place] [address] Dr. Carl Zuñiga Basophils/100 WBC (Bld) 0.0 % Critically low 0.2-2.0 [facility] Comment on above: Performed By: #### B EARLY CHILDHOOD SPECIALIST, CMP, HSTROPN #### [facility] [address] [place] [address] Dr. Carl Zuñiga EO # 0.1 103/ul Normal 0.0-0.7 [facility] Comment on above: Performed By: #### B EARLY CHILDHOOD SPECIALIST, CMP, HSTROPN #### [facility] [address] [place] [address] Dr. Carl Zuñiga Eosinophils/100 WBC (Bld) 1.0 % Normal 0.9-7.0 [facility] Comment on above: Performed By: #### B EARLY CHILDHOOD SPECIALIST, CMP, HSTROPN #### [facility] [address] [place] [address] Dr. Carl Zuñiga Erythrocyte distribution width (RBC) [Ratio] 13.7 % Normal 11.0-15.0 [facility] Comment on above: Performed By: #### B EARLY CHILDHOOD SPECIALIST, CMP, HSTROPN #### [facility] [address] [place] [address] Dr. Carl Zuñiga Hematocrit (Bld) [Volume fraction] 40.8 % Normal 36.0-48.0 [facility] Comment on above: Performed By: #### B EARLY CHILDHOOD SPECIALIST, CMP, HSTROPN #### [facility] [address] [place] [address] Dr. Carl Zuñiga Hemoglobin (Bld) [Mass/Vol] 13.1 g/dL Normal 12.0-16.0 [facility] Comment on above: Performed By: #### B EARLY CHILDHOOD SPECIALIST, CMP, HSTROPN #### [facility] [address] [place] [address] Dr. Carl Zuñiga IG # 0.02 10e3/ul Normal 0.00-0.03 [facility] Comment on above: Performed By: #### B EARLY CHILDHOOD SPECIALIST, CMP, HSTROPN #### [facility] [address] [place] [address] Dr. Carl Zuñiga IG % 0.3 % Normal 0.0-0.5 [facility] Comment on above: Performed By: #### B EARLY CHILDHOOD SPECIALIST, CMP, HSTROPN #### [facility] [address] [place] [address] Dr. Carl Zuñiga LYMPH # 0.9 103/ul Critically low 1.2-3.8 [facility] Comment on above: Performed By: #### B EARLY CHILDHOOD SPECIALIST, CMP, HSTROPN #### [facility] [address] [place] [address] Dr. Carl Zuñiga Lymphocytes/100 WBC (Bld) 13.9 % Critically low 20.5-60.0 [facility] Comment on above: Performed By: #### B EARLY CHILDHOOD SPECIALIST, CMP, HSTROPN #### [facility] [address] [place] [address] Dr. Carl Zuñiga MANUAL DIFF REQ NO Normal [facility] Comment on above: Performed By: #### B EARLY CHILDHOOD SPECIALIST, CMP, HSTROPN #### [facility] [address] [place] [address] Dr. Carl Zuñiga MCH (RBC) [Entitic mass] 30.8 pg Normal 26.7-34.0 [facility] Comment on above: Performed By: #### B EARLY CHILDHOOD SPECIALIST, CMP, HSTROPN #### [facility] [address] [place] [address] Dr. Carl Zuñiga MCHC (RBC) [Mass/Vol] 32.1 g/dL Normal 29.9-35.2 [facility] Comment on above: Performed By: #### B EARLY CHILDHOOD SPECIALIST, CMP, HSTROPN #### [facility] [address] [place] [address] Dr. Carl Zuñiga MCV (RBC) [Entitic vol] 96.0 fL Normal 81.0-99.0 [facility] Comment on above: Performed By: #### B EARLY CHILDHOOD SPECIALIST, CMP, HSTROPN #### [facility] [address] [place] [address] Dr. Carl Zuñiga MONO # 0.6 103/ul Normal 0.3-0.8 [facility] Comment on above: Performed By: #### B EARLY CHILDHOOD SPECIALIST, CMP, HSTROPN #### [facility] [address] [place] [address] Dr. Carl Zuñiga Monocytes/100 WBC (Bld) 9.2 % Normal 1.7-12.0 [facility] Comment on above: Performed By: #### B EARLY CHILDHOOD SPECIALIST, CMP, HSTROPN #### [facility] [address] [place] [address] Dr. Carl Zuñiga NEUT # 5.1 103/ul Normal 1.4-6.5 [facility] Comment on above: Performed By: #### B EARLY CHILDHOOD SPECIALIST, CMP, HSTROPN #### [facility] [address] [place] [address] Dr. Carl Zuñiga Neutrophils/100 WBC (Bld) 75.6 % Critically high 43.0-75.0 [facility] Comment on above: Performed By: #### B EARLY CHILDHOOD SPECIALIST, CMP, HSTROPN #### [facility] [address] [place] [address] Dr. Carl Zuñiga Platelet mean volume (Bld) [Entitic vol] 8.5 fL Critically low 9.5-13.5 [facility] Comment on above: Performed By: #### B EARLY CHILDHOOD SPECIALIST, CMP, HSTROPN #### [facility] [address] [place] [address] Dr. Carl Zuñiga PLT 206 103/ul Normal 150-450 [facility] Comment on above: Performed By: #### B EARLY CHILDHOOD SPECIALIST, CMP, HSTROPN #### [facility] [address] [place] [address] Dr. Carl Zuñiga RBC 4.25 106/ul Normal 4.20-5.40 [facility] Comment on above: Performed By: #### B EARLY CHILDHOOD SPECIALIST, CMP, HSTROPN #### [facility] [address] [place] [address] Dr. Carl Zuñiga WBC 6.7 103/ul Normal 4.0-11.0 [facility] Comment on above: Performed By: #### B EARLY CHILDHOOD SPECIALIST, CMP, HSTROPN #### [facility] [address] [place] [address] Dr. Carl Zuñiga D-DIMERon 03-07-2022 D-DIMER <0.19 Normal <=0.59 [facility] Comment on above: Performed By: #### D DIM #### [facility] [address] [place] [address] Dr. Carl Zuñiga D-DIMER COMMENTS SEE BELOW Normal [facility] Comment on above: Result Comment: Incr [...] hospitalization. Performed By: #### D DIM #### [facility] [address] [place] [address] Dr. Carl Zuñiga PROF 14(COMP METB)on 022 Albumin [Mass/Vol] 3.9 g/dL Normal 3.4-5.0 [facility] Comment on above: Performed By: #### B EARLY CHILDHOOD SPECIALIST, CMP, HSTROPN #### [facility] [address] [place] [address] Dr. Carl Zuñiga Albumin/Globulin [Mass ratio] 1.5 {ratio} Normal [facility] Comment on above: Performed By: #### B EARLY CHILDHOOD SPECIALIST, CMP, HSTROPN #### [facility] [address] [place] [address] Dr. Carl Zuñiga ALP [Catalytic activity/Vol] 96 U/L Normal 46-116 [facility] Comment on above: Performed By: #### B EARLY CHILDHOOD SPECIALIST, CMP, HSTROPN #### [facility] [address] [place] [address] Dr. Carl Zuñiga ALT [Catalytic activity/Vol] 38 U/L Normal 14-59 [facility] Comment on above: Performed By: #### B EARLY CHILDHOOD SPECIALIST, CMP, HSTROPN #### [facility] [address] [place] [address] Dr. Carl Zuñiga Anion gap [Moles/Vol] 9.8 mmol/L Normal [facility] Comment on above: Performed By: #### B EARLY CHILDHOOD SPECIALIST, CMP, HSTROPN #### [facility] [address] [place] [address] Dr. Carl Zuñiga AST [Catalytic activity/Vol] 16 U/L Normal 15-37 [facility] Comment on above: Performed By: #### B EARLY CHILDHOOD SPECIALIST, CMP, HSTROPN #### [facility] [address] [place] [address] Dr. Carl Zuñiga Bilirubin [Mass/Vol] 0.5 mg/dL Normal 0.2-1.0 [facility] Comment on above: Performed By: #### B EARLY CHILDHOOD SPECIALIST, CMP, HSTROPN #### [facility] [address] [place] [address] Dr. Carl Zuñiga Calcium [Mass/Vol] 9.2 mg/dL Normal 8.5-10.1 [facility] Comment on above: Performed By: #### B EARLY CHILDHOOD SPECIALIST, CMP, HSTROPN #### [facility] [address] [place] [address] Dr. Carl Zuñiga Chloride [Moles/Vol] 103 mmol/L Normal 98-107 [facility] Comment on above: Performed By: #### B EARLY CHILDHOOD SPECIALIST, CMP, HSTROPN #### [facility] [address] [address] [address] Carl Zuñiga CO2 [Moles/Vol] 29.1 mmol/L Normal 21.0-32.0 [facility] Comment on above: Performed By: #### B EARLY CHILDHOOD SPECIALIST, CMP, HSTROPN #### [facility] [address] [address] [address] Carl Zuñiga Creatinine [Mass/Vol] 0.92 mg/dL Normal 0.55-1.02 [facility] Comment on above: Performed By: #### B EARLY CHILDHOOD SPECIALIST, CMP, HSTROPN #### [facility] [address] [address] [address] Carl Zuñiga EGFR-AF DOMINICAN >60 Normal >=60 [facility] Comment on above: Performed By: #### B EARLY CHILDHOOD SPECIALIST, CMP, HSTROPN #### [facility] [address] [place] [address] Dr. Carl Zuñiga EGFR-NON AF DOMINICAN >60 Normal >=60 [facility] Comment on above: Performed By: #### B EARLY CHILDHOOD SPECIALIST, CMP, HSTROPN #### [facility] [address] [address] [address] Carl Zuñiga Globulin (S) [Mass/Vol] 2.6 g/dL Normal [facility] Comment on above: Performed By: #### B EARLY CHILDHOOD SPECIALIST, CMP, HSTROPN #### [facility] [address] [address] [address] Carl Zuñiga Glucose [Mass/Vol] 109 mg/dL Critically high 74-106 [facility] Comment on above: Performed By: #### B EARLY CHILDHOOD SPECIALIST, CMP, HSTROPN #### [facility] [address] [address] [address] Carl Zuñiga Potassium [Moles/Vol] 3.9 mmol/L Normal 3.5-5.1 [facility] Comment on above: Performed By: #### B EARLY CHILDHOOD SPECIALIST, CMP, HSTROPN #### [facility] [address] [address] [address] Carl Zuñiga Protein [Mass/Vol] 6.5 g/dL Normal 6.4-8.2 [facility] Comment on above: Performed By: #### B EARLY CHILDHOOD SPECIALIST, CMP, HSTROPN #### [facility] [address] [address] [address] Carl Zuñiga Sodium [Moles/Vol] 138 mmol/L Normal 136-145 [facility] Comment on above: Performed By: #### B EARLY CHILDHOOD SPECIALIST, CMP, HSTROPN #### [facility] [address] [address] [address] Carl Zuñiga Urea nitrogen [Mass/Vol] 14.0 mg/dL Normal 7.0-18.0 [facility] Comment on above: Performed By: #### B EARLY CHILDHOOD SPECIALIST, CMP, HSTROPN #### [facility] [address] [address] [address] Carl Zuñiga Urea nitrogen/Creatini ne [Mass ratio] 15.2 mg/mg Normal [facility] Comment on above: Performed By: #### B EARLY CHILDHOOD SPECIALIST, CMP, HSTROPN #### [facility] [address] [address] [address] Carl Zuñiga TROPONIN, HIGH SENSITIVITYon 03-07-2022 HSTROP 2.8 pg/mL Critically low 4.0-51.3 [facility] Comment on above: Result Comment: CUT- OFF POINTS HAVE BEEN ESTABLISHED BASED ON THE FOURTH UNIVERSAL DEFINITIONS OF MYOCARDIAL INFARCTION. THE UPPER REFERENCE LIMIT (URL) OF TROPONIN, DEFINED THE 99TH PERCENTILE OF cTnI DISTRIBUTION IN A REFERENCE POPULATION, HAS BEEN CONFIRMED THE DECISION THRESHOLD FOR MA DIAGNOSIS. Performed By: #### B EARLY CHILDHOOD SPECIALIST, CMP, HSTROPN #### [facility] [address] [address] [address] Carl Zuñiga XR CHEST 1 Von [...] DIANA BREAUX Date: 2022-03-07 10:05 Normal [facility] CT CSPINE WO CONon CT CSPINE [...] MARQUES PATEL Date: 2021-07-10 02:49 Normal [facility] CT HEAD WO CONon 07-10-2021 CT [...] MARQUES PATEL Date: 2021-07-10 02:44 Normal [facility] XR CHEST 1 Von 07-10-2021 XR [...] by: MARQUES PATEL Date: 2021-07-10 02:46 Normal [facility] XR PELVIS 1_2 VIEWSon 2020 XR [...] by: MARQUES PATEL Date: 2021-07-10 02:47 Normal [facility] Vital Signs Date Time Vital Sign Value Performing Clinician Carrol perez 08-03-2023 08:23-0500 Blood Pressure Location Pamela Benson [facility] Encounters Encounter Date Encounter Type Care Provider Facility Start: 08-24-2023 ambulatory Pamela Barcenase Facility:[facility] Start: 08-04-2023 End: 08-05-2023 ambulatory Pamela MStacey Lue Facility:[facility] Start: 08-04-2023 End: 08-04-2023 Lab Drop off Pamela Benson [facility] Start: 08-03-2023 End: 08-04-2023 ambulatory Pamela M. Lue Facility:[facility] [place] Start: 08-03-2023 End: 08-03-2023 Patient encounter procedure Pamela Benson [facility] Start: 07-27-2023 End: 07-27-2023 ambulatory ASHLEY CRESPO [...] Provider Jairo burton 05-27-2022 SARS-CoV-2 (COVID-19 ) [id number] Pamela Lue [facility] 06-12-2021 SARS-CoV-2 (COVID-19 ) mRNA BNT-162b2 vax Pamela Lue [facility] 08-13-2020 SARS-CoV-2 (COVID-19 ) mRNA BNT-162b2 vax Pamela Lue [facility] Comment on above: Result Comment: 2023: [id number] 07-23-2020 SARS-CoV-2 (COVID-19 ) mRNA BNT-162b2 vax Pamela Lue [facility] Comment on above: Result Comment: 2023: [id number] Payers Date Payer Category Payer Medicare [id number] 2020 Medicaid [id number] 2020 Medicare [id number] 1955 Unknown [id number] 2.16.84 [id number] 1955 Unknown [id number] 1955 Unknown [id number] 1955 Unknown [id number] 2.16.8 [id number] 1955 Unknown [id number] 2.16.8 [id number] 1955 Unknown [id number] 2.16.8 [id number] Social History Date Type Detail Facility Start: 08-03-2023 Tobacco smoking status Never s moked tobacco (finding) [facility] Sex Assigned At Female [facility] Functional Status Date Assessment Result Facility 08-03-2023 Functional Status N/A [facility] Evaluation + Plan note 08-04-2023 Note Date & Type Note Facility 08-04-2023 Evaluation + Plan note Diagnostic Tests PendingUrine Cytology ([facility]) 08/04/23 [facility] Hospital Discharge instructions 08-03-2023 Note Date & [...] including vitamins, herbs, eye drops, creams, and tadt-qte-bnytiwr medicines. Any problems you or family members [...] health care provider tells you to. Taking nuia-uxh-gskenni medicines, vitamins, herbs, and supplements. General instructions [...] provider. Document Revised: 10/22/2022 Document Reviewed: 10/22/2022 [employer] Patient Education 2022 SECU4. 08/03/2023 09:37:21 Hematuria, Adult Hematuria, Adult Hematuria [...] Follow these instructions at home: Medicines Take agxo-zpj-ywrsiko and prescription medicines only as told by [...] or the blood stops without treatment. Take gnkp-ksu-ncxtorg and prescription medicines only as told by your health care provider. Drink enough fluid to keep your urine pale yellow. This information is not intended to replace advice given to you by your health care provider. Make sure you discuss any questions you have with your health care provider. Document Revised: 02/25/2021 Document Reviewed: 02/25/2021 [employer] Patient Education 2022 SECU4. Follow Up Care 07/13/2023 11:34:42 With:Marcelino GALLARDO, Pamela Fam, URL, URO Address: When: Unknown Comments:Schedule Cysto, Rt ureteroscopy, possible biopsy, and Rt stent placement [facility] Evaluation + Plan note Note Date & Type Note Facility Evaluation + Plan note No data available for this section [facility] Hospital Discharge instructions Note Date & Type Note Facility Hospital Discharge instructions No data available for this section [facility] Progress note Note Date & Type Note Facility Progress note No data available for this section [facility] Summary Purpose Family History No Family [...] DATE CREATED AUTHOR AUTHOR'S ORGANIZ ATION 07/28/2023 [facility] EPIC DATE CREATED AUTHOR AUTHOR'S ORGANIZ ATION 08/13/2023 [place] Patient Care team informatio n (unrecognized section and content) Personnel Name: YAYA LANGLEY JR, DO Address: Address: [address] [place] [id number] Personnel Name: YAYA LANGLEY JR, DO Address: Address: [address] [place] [id number] FOR RECORDS PERTAINING TO PATIENTS WHO ARE [...] BE BASED ON THE PRIMARY CLINICAL RECORDS. [facility]. provides no warranty or guarantee of the accuracy or completeness of information in this document.
[2023-08-17 07:59] LABS: Basophils Percent Auto 0.4 % (0.2-2.0); Eosinophils Absolute Auto 0.4 10^3/uL (0.0-0.7); Hematocrit 37.1 % (36.0-48.0); Hemoglobin 11.4 g/dL (12.0-16.0); Immature Granulocytes Abs Auto 0.03 10^3/uL (0.00-0.03); Immature Granulocytes Pct Auto 0.4 % (0.0-0.5); Lymphocytes Absolute Auto 1.3 10^3/uL (1.2-3.8); Lymphocytes Percent Auto 16.6 % (20.5-60.0); Mean Corpuscular HGB Conc 30.7 g/dL (29.9-35.2); Mean Corpuscular Hemoglobin 29.8 pg (26.7-34.0); Mean Corpuscular Volume 96.9 fL (81.0-99.0); Mean Platelet Volume 8.6 fL (9.5-13.5); Monocytes Absolute Auto 0.6 10^3/uL (0.3-0.8); Monocytes Percent Auto 8.2 % (1.7-12.0); Neutrophils Absolute Auto 5.4 10^3/uL (1.4-6.5); Neutrophils Percent Auto 69.4 % (43.0-75.0); Platelet Count 392 10^3/uL (150-450); Red Blood Count 3.83 10^6/uL (4.20-5.40); Red Cell Distribution Width 15.2 % (11.0-15.0); White Blood Count 7.8 10^3/uL (4.0-11.0)
[2023-08-17 08:25] LABS: Erythrocyte Sedimentation Rate 30 mm/hr (<=30)
[2023-08-17 08:34] LABS: Estimated GFR (African America 59 (>=60); Estimated GFR (Non-African Ame 49 (>=60)
[2023-08-17 08:47] LABS: Anion Gap 13.3; Calcium 9.3 mg/dL (8.5-10.1); Carbon Dioxide 27.2 mmol/L (21.0-32.0); Chloride 104 mmol/L (98-107); Chol HDL Ratio 2.2; Cholesterol 152 mg/dL (<=200); HDL Cholesterol 69 mg/dL (40-60); Potassium 4.5 mmol/L (3.5-5.1); Sodium 140 mmol/L (136-145); Thyroid Stimulating Hormone 1.789 uIU/mL (0.358-3.740); Triglycerides 120 mg/dL (<=150)
[2023-08-17 08:58] LABS: Estimated Average Glucose 97 mg/dL
== END 2023-08-17 01:50 | disposition home or self-care (01) ==
LOC: LAB 01:49
PROVIDERS: Visit Provider Internal Medicine
DX: E11.8 Type 2 diabetes mellitus with unspecified complications (principal); E55.9 Vitamin D deficiency, unspecified; R06.02 Shortness of breath
CPT/HCPCS: 36415; 80051; 80061; 82306; 82310; 82565; 83036; 83880; 84443; 84520; 85025; 85652

== ENCOUNTER 2023-09-09 07:54 | Outpatient (OUT) | payer MEDICARE, MEDICAID, SELFPAY ==
--- NOTE | 2023-09-09 | NM_ITS ---
Patient Name: STEVE JOHNSON MR#: [id number] : 1955 Exam Date: 09/09/2023 Ordering Doctor: GUERDA AGUILAR M.D. RADIOLOGY REPORT PROCEDURE: NM SMITH PERF SPECT REST STR COMPARISON: None. INDICATIONS: Encounter for preprocedural cardiovascular examination TECHNIQUE: Exam Description: Stress/Rest one day protocol gated SPECT Rest Imagin.3 mCi Tc-99m Cardiolite IV on 09/09/2023 Stress Imaging 30.5 mCi Tc-99m Cardiolite IV on 09/09/2023 Exercise Protocol: 0.4 mg Lexiscan given IV Heart Rate (bpm): Rest: 57 Max: 85 PMHR: 55 Blood Pressure: Rest: 120/78 Max: 126/80 Symptoms: Rest and peak stress ECG findings were pending and the exercise portion of the study was pending per attending physician Dr. MERRILL . For more details please see separate cardiac stress test report. FINDINGS: QUALITY OF STUDY: Good. PERFUSION DEFECT: None. LOCATION: N/A SIZE: N/A. SEVERITY: N/A. TYPE: N/A. WALL MOTION: Normal. LV SIZE: Normal. 69 mL. TID / TCD: None; 0.8 LVEF: Normal. Calculated EF 86%. SUMMARY: Myocardial perfusion imaging study is NORMAL. CONCLUSION: 1. No reversible ischemia 2. Pending exercise test results Dictated by: Jamarcus Huddleston MD on 09/09/2023 at 11:23 Approved by: Jamarcus Huddleston MD on 09/09/2023 at 12:43
--- NOTE | 2023-09-09 | PCN_ITS ---
CARDIAC STRESS TEST Requesting Physician: Procedure Date: 09/09/2023 This was a Lexiscan stress test with myocardial perfusion imaging performed at the [facility]. Informed consent was obtained. An intravenous line was secured. Baseline ECG and vital signs were obtained. Lexiscan 0.4 mg was infused slowly, followed by administration of Cardiolite. The patient went on to obtain myocardial perfusion imaging. Resting heart rate was 57 and resting blood pressure was 120/78. Peak heart rate was 85 and peak blood pressure was 126/80. Resting ECG showed evidence of sinus rhythm. ECG post infusion of Lexiscan showed sinus rhythm with no evidence of ischemic changes. SUMMARY OF THE FINDINGS: 1. No evidence of ischemic ECG changes after infusion of Lexiscan. 2. Myocardial perfusion images will be reported separately. [facility]
--- OUTSIDE RECORDS SUMMARY | 2023-09-09 07:57 | XMS_ITS | CCD ---
Author Name Unknown Address [address] [place] [address] Organization [facility] Care Team Providers Care Traffic Technician Name Role Phone MARKER, DR SALINAS Consulting Unavailable VALONE, DR JAVIER Primary Care Unavailable MARKER, DR SALINAS Attending Unavailable MARKER, DR SALINAS Admitting Unavailable BENEDICT, DR TINEO Admitting Unavailable BENEDICT, DR TINEO Attending Unavailable VALONE, DR JAVIER Attending Unavailable VALONE, DR JAVIER Admitting Unavailable VALONE, DR JAVIER Primary Care Unavailable REINECK, DR NANI Haley Admitting Unavailalice NAVARRETE, DR NANI Haley Attending UnavailASHLEY Tucker Attending Unavailable ASHLEY CRESPO Attending Unavailable ASHLEY CRESPO Attending Unavailable YAYA LANGLEY JR Primary Care Physician Pamela Benson Attending Unavailable Pamela Benson Attending Unavailable Ashley CRESPO Referring Unavailable Pamela Benson Attending Unavailable Pamela Benson Admitting Unavailable GUERDA AGUILAR Attending Unavailable Medications Current Medications Medication Drug Class(es) Dates Sig (Normalized) Sig (Original) acarbose 100 mg oral tablet (3 sources) alpha-Glucosidase Inhibitor Start: 08-03-2023 acarbose 100 mg oral tablet Refills(s) 0 Start Date: 08/03/23 Status: Ordered Acetaminophen (3 sources) Start: 08-03-2023 acetaminophen Refills(s) 0 Start Date: 08/03/23 Status: Ordered Albuterol (3 sources) beta2-Adrenergic Agonist Start: 09-28-2012 take 2.5 mg by inhalation every six hours albuterol 0.083% Inh Joycelyn 3 mL UD 2.5 mg, 3 mL, Inhalation, q6hr, Refill(s) 0 Start Date: 09/28/12 Status: Ordered Aspirin (3 sources) Platelet Aggregation Inhibitor, Nonsteroidal Anti-inflammatory Drug Start: 08-03-2023 aspirin Refills(s) 0 Start Date: 08/03/23 Status: Ordered atorvastatin 40 mg oral tablet (3 sources) HMG-CoA Reductase Inhibitor Start: 08-03-2023 atorvastatin 40 mg Tab Refills(s) 0 Start Date: 08/03/23 Status: Ordered Baclofen (3 sources) gamma-Aminobutyric Acid-ergic Agonist Start: 08-03-2023 BACLOFEN 20 MG TABLET BACLOFEN 20 MG TABLET, As Directed Start Date: 08/03/23 Status: Ordered citalopram 20 mg oral tablet (3 sources) Serotonin Reuptake Inhibitor Start: 04-16-2013 take 1 tablet by mouth once daily CeleXA 20 mg Tab 20 mg = 1 tab(s), Oral, Daily, Refills(s) 0 Start Date: 04/16/13 Status: Ordered cyclobenzaprine (3 sources) Muscle Relaxant Start: 02-13-2013 Flexeril Oral, TID, Refills(s) 0 Start Date: 02/13/13 Status: Ordered famotidine 40 mg oral tablet (3 sources) Histamine-2 Receptor Antagonist Start: 08-03-2023 famotidine 40 mg Tab Refills(s) 0 Start Date: 08/03/23 Status: Ordered ferrous sulfate 325 mg oral tablet (3 sources) Start: 08-03-2023 ferrous sulfate 325 mg Tab Refills(s) 0 Start Date: 08/03/23 Status: Ordered lumateperone 42 mg oral capsule (3 sources) Start: 08-03-2023 Caplyta 42 mg oral capsule Refills(s) 0 Start Date: 08/03/23 Status: Ordered metFORMIN hydrochloride 1000 mg oral tablet (3 sources) Biguanide Start: 08-03-2023 metformin 1000 mg Tab Refills(s) 0 Start Date: 08/03/23 Status: Ordered montelukast 10 mg oral tablet (3 sources) Leukotriene Receptor Antagonist Start: 08-03-2023 montelukast 10 mg Tab Refills(s) 0 Start Date: 08/03/23 Status: Ordered OLANZapine 10 mg oral tablet (3 sources) Atypical Antipsychotic Start: 07-22-2012 take 1 tablet by mouth once daily ZyPREXA 10 mg Tab 10 mg = 1 tab(s), Oral, Daily, # 30 tab(s), Refills(s) 0 Start Date: 07/22/12 Status: Ordered perphenazine 4 mg oral tablet (3 sources) Phenothiazine Start: 08-03-2023 perphenazine 4 mg Tab Refills(s) 0 Start Date: 08/03/23 Status: Ordered ProAir HFA 90 mcg/inh inhalation aerosol (3 sources) Start: 09-23-2011 take 2 puff(s) by inhalation four times daily ProAir HFA 90 mcg/inh inhalation aerosol 2 puff(s), Inhalation, QID Shortness of breath or wheezing, Refill(s) 0 Start Date: 09/23/11 Status: Ordered QUEtiapine 100 mg oral tablet (3 sources) Atypical Antipsychotic Start: 04-16-2013 take 1 tablet by mouth twice daily quetiapine 100 mg Tab 100 mg = 1 tab(s), Oral, BID, Refills(s) 0 Start Date: 04/16/13 Status: Ordered sacubitril 24 mg / valsartan 26 mg oral tablet (3 sources) Angiotensin 2 Receptor Man Start: 08-03-2023 Entresto 24 mg-26 mg oral tablet Refill(s) 0 Start Date: 08/03/23 Status: Ordered traMADol hydrochloride 50 mg oral tablet (3 sources) Opioid Agonist Start: 09-23-2011 take 1 tablet by mouth once daily Ultram 50 mg, Oral, Daily, tab(s), Refills(s) 0 Start Date: 09/23/11 Status: Ordered Problems Active Problems Problem Classification Problem Date Documented Date Episodic/Chronic Asthma (3 sources) Asthma 04-17-2012 Chronic Essential hypertension (3 sources) Hypertensive disorder 12-27-2013 Chronic 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 Genitourinary symptoms and ill-defined conditions (7 sources) Blood in urine; Translations: [Gross hematuria] Onset: 4 Episodic Other aftercare (1 source) Long-term current use of aspirin; Translations: [oysterman (current) use of aspirin] Onset: 4 Episodic Other diseases of kidney and ureters (1 source) Hydronephrosis; Translations: [Unspecified hydronephrosis] Onset: 4 Episodic Other diseases of kidney and ureters (3 sources) Hydroureteronephrosis 08-03-2023 Episodic Other ear and sense organ disorders (3 sources) Hearing loss 09-21-2013 Chronic Screening and history of mental health and substance abuse codes (4 sources) H/O: Disorder; Translations: [Personal history of nicotine dependence] Onset: 4 Episodic Unclassified (3 sources) Finding of sensation of bladder 08-03-2023 Unclassified (3 sources) Long-term current use of aspirin 08-03-2023 Past or Other Problems Problem Classification Problem Date Documented Da te Episodic/Chronic Unclassified (3 sources) pysch hx 09-24-2010 Results Test Name Value Interpretation Reference Range Facility Office Visiton 08-26-2023 Follow-up visit [id number] Kelby Waddell 1955 F Date Provider Department Center 08/26/2023 3848-GUERDA AGUILAR [facility] Family History Problem Relation Age of Onset Coronary artery disease Mother Cancer Father Diabetes Father Family Status - Relation Status Age at Mother Father Level of Service:[address] [place] OFFICE/OUTPATIENT NEW MODERATE MDM 45 MINUTES Normal [facility] Consent for Procedure/Surger yon 08-24-2023 Consent for Procedure/Surgery [id number] Normal [facility] Consent for Procedure/Surger yon 08-09-2023 Consent for Procedure/Surgery [id number]#[id number] Normal [facility] Urine Cytology ([facility])on 0 08-09-2023 Urine Cytology Diagnosis Info Invalid Interpretation Code [facility] Comment on above: Result Comment: A:Ur ine,Urine:Voided Interpretation - MicroScopic Description - Adequacy - Gross Description Site ID:A color Dark Yellow fixative Alcohol Specimen designated Urine received in alcohol preservative and labeled with the patient?s name, consists of 110ml slightly cloudy dark yellow fluid. Electronically signed by : on: 08/09/2023 11:46:02 Performed By: #### 1 [id number] #### [facility] [address] [place] [address] Physician Referralon 024 Physician Referral [id number] Normal [facility] Screenson 08-04-2023 Screens [id number]#[id number] Normal [facility] Urine Cytology ([facility])on 0 08-04-2023 UC Method of Extraction Voided Normal [facility] Comment on above: Performed By: #### 1 [id number] #### [facility] [address] Number of Jars 1 Invalid Interpretation Code [facility] Comment on above: Performed By: #### 1 [id number] #### [facility] [address] Specimen Urine Normal [facility] Comment on above: Performed By: #### 1 [id number] #### [facility] [address] [id number] Type of Service Technical Only Normal [facility] Comment on above: Performed By: #### 1 [id number] #### [facility] [address] [id number] Ambulatory Visit Summaryon 0 08-03-2023 Ambulatory Visit Summary STEVE WADDELL :1955 Visit Date:08/03/2023 Ambulatory Visit Instructions Your [...] the caus (more content not included)... Normal [facility] Home Recordson 08-03 Alf Records [id number] Normal [facility] Patient Educationon 08-03-19 Patient Education Urology [...] including vitamins, herbs, eye drops, creams, and qful-lgz-npvsntz medicines. ? Any problems you or family [...] care provider tells you to. ? Taking vaxn-euc-gzibnyt medicines, vitamins, herbs, and supplements. General instructions [...] be monitor (more content not included)... Normal [facility] Urology Office/Clinic Noteon 08-03-2023 Urology Office/Clinic Note Chief Complaint Physical Therapy Asst for abnormalitties in urinary system HPI Staff Evaluation requested by Dr Ashley Crespo due to incidental findings on CT 06/06/23. *possible abnormality of urinary system. Ordered due to rectal bleeding. Pt is a new pt. Never before seen in our office. Pt is hard of hearing she can read lips and she has an nurses aid from her home ([facility]) CT abdomen pelvis wo/w con done @ [facility] on 06/06/23 She tried giving a urine [...] age Assessment/Plan 68 yo female resident of [facility] here for new patient evaluation of right hydroureteronephrosis. Pt is hard of hearing, can read lips and she has a nurses aid from her home with her. Mother had lung cancer. Denies any other urologic surgeries. 1. Hydroureteronephrosis (N13.30: Unspecified hydronephrosis) CT AP wo/w PO con @ [facility] on 06/06/23 - mod Rt-sided collecting system [...] cysto, if patient unable to submit from [facility] prior 3. Former smoker (Z87.891: Personal history of nicotine dependence) Smoked for a very little amount of time. 4. Aspirin long-term use (Z79.82: senior care (curre (more content not included)... Normal [facility] Comment on above: Result Comment: Elec [...] by: RIVKA FRAZIER Date: 2022-07-05 15:47 Normal [facility] MG MAMM SCREEN 3D DERRICK CADon 05-14-2022 MG MAMM SCREEN 3D DERRICK CAD Patient: STEVE WADDELL Exam Date: 05/14/2022 : 1955 Gender:F Ordering : DR YAYA LANGLEY D.O. Admission #: [id number] Family : Order #: [id number] CLICK HERE TO VIEW EXAM RADIOLOGY REPORT [...] No Treatments None Family Cancers None LOCATION: [facility] BREAST COMPOSITION: Almost entirely fatty. FINDINGS: DIAGNOSTIC [...] MD on 05/14/2022 at 12:49 Normal [facility] BNPon 03-07-2022 Natriuretic peptide B (Bld) [Mass/Vol] 115.0 pg/mL Normal <=900.0 [facility] Comment on above: Performed By: #### B WATERSHED TENDER, CMP, HSTROPN #### [facility] [address] [place] [address] Dr. Carl Zuñiga CBC AUTO DIFFon 03-07-2022 BASO # 0.0 103/ul Normal 0.0-0.1 [facility] Comment on above: Performed By: #### B WATERSHED TENDER, CMP, HSTROPN #### [facility] [address] [address] [address] Carl Zuñiag Basophils/100 WBC (Bld) 0.0 % Critically low 0.2-2.0 [facility] Comment on above: Performed By: #### B WATERSHED TENDER, CMP, HSTROPN #### [facility] [address] [address] [address] Carl Zuñiga EO # 0.1 103/ul Normal 0.0-0.7 [facility] Comment on above: Performed By: #### B WATERSHED TENDER, CMP, HSTROPN #### [facility] [address] [address] [address] Carl Zuñiga Eosinophils/100 WBC (Bld) 1.0 % Normal 0.9-7.0 [facility] Comment on above: Performed By: #### B WATERSHED TENDER, CMP, HSTROPN #### [facility] [address] [place] [address] Dr. Carl Zuñiga Erythrocyte distribution width (RBC) [Ratio] 13.7 % Normal 11.0-15.0 [facility] Comment on above: Performed By: #### B WATERSHED TENDER, CMP, HSTROPN #### [facility] [address] [place] [address] Dr. Carl Zuñiga Hematocrit (Bld) [Volume fraction] 40.8 % Normal 36.0-48.0 [facility] Comment on above: Performed By: #### B WATERSHED TENDER, CMP, HSTROPN #### [facility] [address] [place] [address] Dr. Carl Zuñiga Hemoglobin (Bld) [Mass/Vol] 13.1 g/dL Normal 12.0-16.0 [facility] Comment on above: Performed By: #### B WATERSHED TENDER, CMP, HSTROPN #### [facility] [address] [place] [address] Dr. Carl Zuñiga IG # 0.02 10e3/ul Normal 0.00-0.03 [facility] Comment on above: Performed By: #### B WATERSHED TENDER, CMP, HSTROPN #### [facility] [address] [place] [address] Dr. Carl Zuñiga IG % 0.3 % Normal 0.0-0.5 [facility] Comment on above: Performed By: #### B WATERSHED TENDER, CMP, HSTROPN #### [facility] [address] [place] [address] Dr. Carl Zuñiga LYMPH # 0.9 103/ul Critically low 1.2-3.8 [facility] Comment on above: Performed By: #### B WATERSHED TENDER, CMP, HSTROPN #### [facility] [address] [place] [address] Dr. Carl Zuñiga Lymphocytes/100 WBC (Bld) 13.9 % Critically low 20.5-60.0 [facility] Comment on above: Performed By: #### B WATERSHED TENDER, CMP, HSTROPN #### [facility] [address] [address] [address] Carl Zuñiga MANUAL DIFF REQ NO Normal [facility] Comment on above: Performed By: #### B WATERSHED TENDER, CMP, HSTROPN #### [facility] [address] [place] [address] Dr. Carl Zuñiga MCH (RBC) [Entitic mass] 30.8 pg Normal 26.7-34.0 [facility] Comment on above: Performed By: #### B WATERSHED TENDER, CMP, HSTROPN #### [facility] [address] [place] [address] Dr. Carl Zuñiga MCHC (RBC) [Mass/Vol] 32.1 g/dL Normal 29.9-35.2 [facility] Comment on above: Performed By: #### B WATERSHED TENDER, CMP, HSTROPN #### [facility] [address] [place] [address] Dr. Carl Zuñiga MCV (RBC) [Entitic vol] 96.0 fL Normal 81.0-99.0 [facility] Comment on above: Performed By: #### B WATERSHED TENDER, CMP, HSTROPN #### [facility] [address] [place] [address] Dr. Carl Zuñiga MONO # 0.6 103/ul Normal 0.3-0.8 [facility] Comment on above: Performed By: #### B WATERSHED TENDER, CMP, HSTROPN #### [facility] [address] [place] [address] Dr. Carl Zuñiga Monocytes/100 WBC (Bld) 9.2 % Normal 1.7-12.0 [facility] Comment on above: Performed By: #### B WATERSHED TENDER, CMP, HSTROPN #### [facility] [address] [place] [address] Dr. Carl Zuñiga NEUT # 5.1 103/ul Normal 1.4-6.5 [facility] Comment on above: Performed By: #### B WATERSHED TENDER, CMP, HSTROPN #### [facility] [address] [address] [address] Carl Zuñiga Neutrophils/100 WBC (Bld) 75.6 % Critically high 43.0-75.0 [facility] Comment on above: Performed By: #### B WATERSHED TENDER, CMP, HSTROPN #### [facility] [address] [address] [address] Carl Zuñiga Platelet mean volume (Bld) [Entitic vol] 8.5 fL Critically low 9.5-13.5 [facility] Comment on above: Performed By: #### B WATERSHED TENDER, CMP, HSTROPN #### [facility] [address] [address] [address] Carl Zuñiga PLT 206 103/ul Normal 150-450 [facility] Comment on above: Performed By: #### B WATERSHED TENDER, CMP, HSTROPN #### [facility] [address] [place] [address] Dr. Carl Zuñiga RBC 4.25 106/ul Normal 4.20-5.40 [facility] Comment on above: Performed By: #### B WATERSHED TENDER, CMP, HSTROPN #### [facility] [address] [address] [address] Carl Zuñiga WBC 6.7 103/ul Normal 4.0-11.0 [facility] Comment on above: Performed By: #### B WATERSHED TENDER, CMP, HSTROPN #### [facility] [address] [place] [address] Dr. Carl Zuñiga D-DIMERon 03-07-2022 D-DIMER <0.19 Normal <=0.59 [facility] Comment on above: Performed By: #### D DIM #### [facility] [address] [place] [address] Dr. Carl Zuñiga D-DIMER COMMENTS SEE BELOW Normal [facility] Comment on above: Result Comment: Incr eases [...] hospitalization. Performed By: #### D DIM #### [facility] [address] [place] [address] Dr. Carl Zuñiga PROF 14(COMP METB)on 022 Albumin [Mass/Vol] 3.9 g/dL Normal 3.4-5.0 [facility] Comment on above: Performed By: #### B WATERSHED TENDER, CMP, HSTROPN #### [facility] [address] [place] [address] Dr. Carl Zuñiga Albumin/Globulin [Mass ratio] 1.5 {ratio} Normal [facility] Comment on above: Performed By: #### B WATERSHED TENDER, CMP, HSTROPN #### [facility] [address] [place] [address] Dr. Carl Zuñiga ALP [Catalytic activity/Vol] 96 U/L Normal 46-116 [facility] Comment on above: Performed By: #### B WATERSHED TENDER, CMP, HSTROPN #### [facility] [address] [place] [address] Dr. Carl Zuñiga ALT [Catalytic activity/Vol] 38 U/L Normal 14-59 [facility] Comment on above: Performed By: #### B WATERSHED TENDER, CMP, HSTROPN #### [facility] [address] [place] [address] Dr. Carl Zuñiga Anion gap [Moles/Vol] 9.8 mmol/L Normal [facility] Comment on above: Performed By: #### B WATERSHED TENDER, CMP, HSTROPN #### [facility] [address] [place] [address] Dr. Carl Zuñiga AST [Catalytic activity/Vol] 16 U/L Normal 15-37 [facility] Comment on above: Performed By: #### B WATERSHED TENDER, CMP, HSTROPN #### [facility] [address] [place] [address] Dr. Carl Zuñiga Bilirubin [Mass/Vol] 0.5 mg/dL Normal 0.2-1.0 [facility] Comment on above: Performed By: #### B WATERSHED TENDER, CMP, HSTROPN #### [facility] [address] [place] [address] Dr. Carl Zuñiga Calcium [Mass/Vol] 9.2 mg/dL Normal 8.5-10.1 [facility] Comment on above: Performed By: #### B WATERSHED TENDER, CMP, HSTROPN #### [facility] [address] [place] [address] Dr. Carl Zuñiga Chloride [Moles/Vol] 103 mmol/L Normal 98-107 [facility] Comment on above: Performed By: #### B WATERSHED TENDER, CMP, HSTROPN #### [facility] [address] [place] [address] Dr. Carl Zuñiga CO2 [Moles/Vol] 29.1 mmol/L Normal 21.0-32.0 [facility] Comment on above: Performed By: #### B WATERSHED TENDER, CMP, HSTROPN #### [facility] [address] [place] [address] Dr. Carl Zuñiga Creatinine [Mass/Vol] 0.92 mg/dL Normal 0.55-1.02 [facility] Comment on above: Performed By: #### B WATERSHED TENDER, CMP, HSTROPN #### [facility] [address] [place] [address] Dr. Carl Zuñiga EGFR-AF ISRAELI >60 Normal >=60 [facility] Comment on above: Performed By: #### B WATERSHED TENDER, CMP, HSTROPN #### [facility] [address] [place] [address] Dr. Carl Zuñiga EGFR-NON AF ISRAELI >60 Normal >=60 [facility] Comment on above: Performed By: #### B WATERSHED TENDER, CMP, HSTROPN #### [facility] [address] [place] [address] Dr. Carl Zuñiga Globulin (S) [Mass/Vol] 2.6 g/dL Normal [facility] Comment on above: Performed By: #### B WATERSHED TENDER, CMP, HSTROPN #### [facility] [address] [address] [address] Carl Zuñiga Glucose [Mass/Vol] 109 mg/dL Critically high 74-106 [facility] Comment on above: Performed By: #### B WATERSHED TENDER, CMP, HSTROPN #### [facility] [address] [address] [address] Carl Zuñiga Potassium [Moles/Vol] 3.9 mmol/L Normal 3.5-5.1 [facility] Comment on above: Performed By: #### B WATERSHED TENDER, CMP, HSTROPN #### [facility] [address] [address] [address] Carl Zuñiga Protein [Mass/Vol] 6.5 g/dL Normal 6.4-8.2 [facility] Comment on above: Performed By: #### B WATERSHED TENDER, CMP, HSTROPN #### [facility] [address] [place] [address] Dr. Carl Zuñiga Sodium [Moles/Vol] 138 mmol/L Normal 136-145 [facility] Comment on above: Performed By: #### B WATERSHED TENDER, CMP, HSTROPN #### [facility] [address] [address] [address] Carl Zuñiga Urea nitrogen [Mass/Vol] 14.0 mg/dL Normal 7.0-18.0 [facility] Comment on above: Performed By: #### B WATERSHED TENDER, CMP, HSTROPN #### [facility] [address] [place] [address] Dr. Carl Zuñiga Urea nitrogen/Creatini ne [Mass ratio] 15.2 mg/mg Normal [facility] Comment on above: Performed By: #### B WATERSHED TENDER, CMP, HSTROPN #### [facility] [address] [place] [address] Dr. Carl Zuñiga TROPONIN, HIGH SENSITIVITYon 03-07-2022 HSTROP 2.8 pg/mL Critically low 4.0-51.3 [facility] Comment on above: Result Comment: CUT- OFF POINTS HAVE BEEN ESTABLISHED BASED ON THE FOURTH UNIVERSAL DEFINITIONS OF MYOCARDIAL INFARCTION. THE UPPER REFERENCE LIMIT (URL) OF TROPONIN, DEFINED THE 99TH PERCENTILE OF cTnI DISTRIBUTION IN A REFERENCE POPULATION, HAS BEEN CONFIRMED THE DECISION THRESHOLD FOR NM DIAGNOSIS. Performed By: #### B WATERSHED TENDER, CMP, HSTROPN #### [facility] [address] [place], [place] [address] Dr. Carl Zuñiga XR CHEST 1 Von [...] DIANA BREAUX Date: 2022-03-07 10:[address] [facility] [address] CSPINE WO CONon CT CSPINE WO [...] MARQUES PATEL Date: 2021-07-10 02:[address] [facility] [address] HEAD WO CONon 07-10-2021 CT HEAD [...] MARQUES PATEL Date: 2021-07-10 02:44 Normal [facility] XR CHEST 1 Von 07-10-2021 XR CHEST [...] by: MARQUES PATEL Date: 2021-07-10 02:46 Normal [facility] XR PELVIS 1_2 VIEWSon 2020 XR PELVIS [...] by: MARQUES PATEL Date: 2021-07-10 02:47 Normal [facility] Vital Signs Date Time Vital Sign Value Performing Clinician Carrol perez 08-03-2023 08:23-0500 Blood Pressure Location Pamela Benson [facility] Encounters Encounter Date Encounter Type Care Provider Facility Start: 08-26-2023 End: 08-26-2023 ambulatory [facility]ERDA [facility] Start: 08-24-2023 End: 08-25-2023 ambulatory Pamela Benson Facility:[facility] Start: 08-24-2023 End: 08-24-2023 Off-Site Pamela [facility] Start: 08-04-2023 End: 08-05-2023 ambulatory Pamela Benson [place] [place]: 08-04-2023 End: 08-04-2023 Lab Drop off Pamela Benson [facility] Start: 08-03-2023 End: 08-04-2023 ambulatory Pamela Benson Facility:[facility] Start: 08-03-2023 End: 08-03-2023 Patient encounter procedure Pamela Benson [facility] Start: 07-27-2023 End: 07-27-2023 ambulatory ASHLEY ZACARIAS Not Available Start: 07-22-2023 ambulatory Pamela Benson Facility[facility] Start: 07-06-2023 ambulatory Pamela Benson Facility:[facility] Start: 07-05-2023 End: 07-05-2023 ambulatory ASHLEY ZACARIAS Not Available Start: 05-25-2023 End: 05-25-2023 ambulatory ASHLEY ZACARIAS Not Available Start: 07-05-[address] RIVKA PAN Faci lity:H1 Start: 05-14-[address] YAYA LANGLEY Facil ity:H1 Start: 03-07-[address] YAYA LANGLEY Facil ity:H1 Start: 07-10-[address] RITA Ruano ity:H1 Procedures Date Procedure Procedure Detail Performing Clinician x3 Pamela Benson Immunizations Immunization Date Immunization Notes Care Provider Fa cility 05-27-2022 SARS-CoV-2 (COVID-19 ) [id number] [facility] [facility] 12-03-2021 SARS-CoV-2 (COVID-19 ) mRNA BNT-162b2 vax Pamela Lue [facility] 08-13-2020 SARS-CoV-2 (COVID-19 ) mRNA BNT-162b2 vax Pamela Lue [facility] Comment on above: Result Comment: 2023: [id number] 07-23-2020 SARS-CoV-2 (COVID-19 ) mRNA BNT-162b2 vax Pamela Lue [facility] Comment on above: Result Comment: 2023: [id number] Payers Date Payer Category Payer Medicare [id number] 2020 Medicaid [id number] 2020 Medicare [id number] 1955 Unknown [id number] [id number] 1955 Unknown [id number] 1955 Unknown [id number] 1955 Unknown [id number] 2.16.8 [id number] 1955 Unknown [id number] 2.16.8 [id number] 1955 Unknown [id number] [id number] Social History Date Type Detail Facility Start: 08-03-2023 Tobacco smoking status Never s moked tobacco (finding) [facility] Sex Assigned At Female [facility] Functional Status Date Assessment Result Facility 08-03-2023 Functional Status N/A [facility] Progress note 08-26-2023 Note Date & Type Note Facility 08-26-2023 Note Cardiology Clinic No te Chief Complaint: preop risk stratification HPI: Steve Waddell is a 68 y.o. female With no reported cardiac history who presents to cardiology clinic at the request of her [employer] doctor for perioperative restratification prior to D&C and LEEP procedure. Of note: Patient is deaf. 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 She does her best to communicate by lipreading. She is accompanied by her driver's education instructor today, who assists in communication. As per patient and her driver's education instructor, patient denies any cardiac history. She denies any prior history of heart failure, CAD, PCI, or NM. She does report occasional chest pain. Chest pain can occur both at rest and with exertion, does not seem to worsen with exertion. She has occasional shortness of breath as well. She denies any lower extremity SHERRY, orthopnea, or paroxysmal nocturnal dyspnea. Patient denies any previous history of CVA, PVD, DM, HTN, Depressed LVEF, and CAD. Cardiology ROS: GENERAL: Denies fever, chills, night sweats, weight loss. HEENT: Denies changes in vision, photophobia, changes in hearing, epistaxis, oral bleeding. CARDIOVASCULAR: As per HPI RESPIRATORY: Denies SOB, coughing, wheezing GI: Denies abdominal pain, nausea/vomiting, heartburn, melena/hematochezia. RENAL: Denies dysuria, hematuria, flank pain. MSK: Denies muscle weakness/pain, arthralgias/joint pain. NEUROLOGIC: Denies LOC, weakness, numbness, headaches. SKIN: Denies abnormal rashes or bleeding. PSYCH: Denies significant anxiety, depression, sleep disturbances. Past Medical History She has a past medical history of Diabetes mellitus ([facility]). Surgical History She has no past surgical history on file. Social History She reports that she has quit smoking. Her smoking use included cigarettes. She has never used smokeless tobacco. She reports that she does not currently use alcohol. No history on file for drug use. Family History Family History Problem Relation Name Age of Onset Coronary artery disease Mother Cancer Father Diabetes Father Medications Current Outpatient Medications on File Prior to Visit Medication Sig Dispense Refill acarbose (Precose) 100 mg tablet Refills(s) 0 aspirin 81 mg EC tablet Take 81 mg by mouth in the morning. atorvastatin (Lipitor) 40 mg tablet Take 40 mg by mouth at bedtime. baclofen (Lioresal) 20 mg tablet cholecalciferol (Vitamin D-3) 125 MCG (5000 UT) capsule cyanocobalamin (Vitamin B-12) 1,000 mcg tablet dulaglutide (Trulicity) 0.75 mg/0.5 mL pen injector famotidine (Pepcid) 40 mg tablet Refills(s) 0 ferrous sulfate 325 (65 Fe) MG tablet Refills(s) 0 lumateperone (Caplyta) 42 mg capsule Refills(s) 0 metFORMIN (Glucophage) 1,000 mg tablet montelukast (Singulair) 10 mg tablet Refills(s) 0 perphenazine 4 mg tablet ranolazine (Ranexa) 500 mg 12 hr tablet Take 500 mg by mouth 2 times daily. sacubitril-valsartan (Entresto) 24-26 mg tablet Take 1 tablet by mouth 2 times daily. topiramate (Topamax) 25 mg tablet traZODone (Desyrel) 50 mg tablet No current facility-administered medications on file prior to visit. Allergies Patient has no known allergies. Physical Exam VITAL SIGNS: BP 130/84 (BP Location: Left arm, Patient Position: Sitting) Pulse 72 Ht 1.626 m (5' 4 ) Wt 95.7 kg (211 lb) SpO2 99% BMI 36.22 kg/m??? Constitutional: Well developed, Well nourished, No acute distress, Non-toxic appearance. HENT: Normocephalic, Atraumatic, Bilateral external ears have normal appearance, Nose appears normal, nares are patent. Eyes: PERRLA, EOMI, Conjunctiva normal, No discharge. Neck: Normal range of motion, No tenderness, Supple, No stridor. No cervical lymphadenopathy noted. Cardiovascular: Normal heart rate, Normal rhythm, No murmurs, No rubs, No gallops. Thorax & Lungs: Normal breath sounds, No respiratory distress, No wheezing, No chest tenderness to palpation. Abdomen: Bowel sounds normal, Soft, Nontender, No masses, No pulsatile masses. Skin: Warm, Dry, No erythema, No rash. Back: No tenderness, No CVA tenderness. Extremities: Intact distal pulses, No edema, No tenderness, No cyanosis, No clubbing. Musculoskeletal: Grossly normal strength in extremities Neurologic: Alert & oriented x 3, no gross focal neurological deficits Psychiatric: Affect normal, Judgment normal, Mood normal. Impression: -Perioperative risk stratification -Atypical chest pain -Shortness of breath -HLD Plan: -Given her symptoms of atypical chest pain or shortness of breath, prudent to perform additional test prior to elective surgery. Would recommend obtaining Lexiscan myocardial perfusion imaging in addition to echocardiogram. This is prudent to rule out ischemia and to assess LVEF, regional wall motion, and valvular function. -Further recommendations regarding perioperative restratification to follow -Continue Atorvastatin 40 mg daily for HLD -Optimize med (more content not included)... [facility] Progress note 08-26-2023 Note Date & Type Note Facility 08-26-2023 Note New patient here to establish care. Ref from Dr. Crespo for surgery clearance prior to D&C and LEEP procedure. This is scheduled for 08/31 at [facility] per patient. She had labs and EKG last week. Says she gets intermittent chest pain and SOB w/ exertion. Review of Systems HENT: Positive for hearing loss. Cardiovascular: Positive for chest pain (intermittent) and dyspnea on exertion (intermittent). All other systems reviewed and are negative. [facility] Evaluation + Plan note 08-04-2023 Note Date & Type Note Facility 08-04-2023 Evaluation + Plan note Diagnostic Tests PendingUrine Cytology ([facility]) 08/04/23 [facility] Hospital Discharge instructions 08-03-2023 Note Date [...] including vitamins, herbs, eye drops, creams, and qqph-tuc-kqpclxg medicines. Any problems you or family members [...] health care provider tells you to. Taking sqcf-tse-ydhzztf medicines, vitamins, herbs, and supplements. General instructions [...] provider. Document Revised: 10/22/2022 Document Reviewed: 10/22/2022 [employer] Patient Education 2022 [employer]. 08/03/2023 09:37:21 Hematuria, Adult Hematuria, Adult Hematuria [...] Follow these instructions at home: Medicines Take czwn-oml-fgbgiip and prescription medicines only as told by [...] or the blood stops without treatment. Take ivxd-uws-koimqcq and prescription medicines only as told by your health care provider. Drink enough fluid to keep your urine pale yellow. This information is not intended to replace advice given to you by your health care provider. Make sure you discuss any questions you have with your health care provider. Document Revised: 02/25/2021 Document Reviewed: 02/25/2021 [employer] Patient Education 2022 [employer]. Follow Up Care 07/13/2023 11:34:42 With:Marcelino GALLARDO, Pamela Fam, URL, URO Address: When: Unknown Comments:Schedule Cysto, Rt ureteroscopy, possible biopsy, and Rt stent placement [facility] Evaluation + Plan note Note Date & Type Note Facility Evaluation + Plan note No data available for this section [facility] Hospital Discharge instructions Note Date & Type Note Facility Hospital Discharge instructions No data available for this section [facility] Progress note Note Date & Type Note Facility Progress note No data available for this section [facility] Gail Summary Purpose Family History No Family History Records FoundNo Family History Records Found No data available for this section No data available for this section No data available for this section No Family History Records FoundNo Family History Records Found Advance Directives No Advanced Directives Records FoundNo Advanced Directives Records FoundNo Advanced Directives Records FoundNo Advanced Directives Records Found Additional Source Comments INFORMATION SOURCE (unrecogn ized section and content) DATE CREATED AUTHOR 07/05/2022 [facility] DATE CREATED AUTHOR AUTHOR'S ORGANIZ ATION 07/28/2023 [facility] EPIC DATE CREATED AUTHOR AUTHOR'S ORGANIZ ATION 08/26/2023 [facility] DATE CREATED AUTHOR AUTHOR'S ORGANIZ ATION 08/28/2023 [facility] Patient Care team informatio n (unrecognized section and content) Personnel Name: YAYA LANGLEY JR, DO Address: Address: [address] [place] [phone] Personnel Name: YAYA LANGLEY JR, DO Address: Address: [address] [place], [place] [id number] Personnel Name: BORISJUAN MIGUEL MANN DO YAYA Address: Address: [address] [place] [phone] FOR RECORDS PERTAINING TO PATIENTS WHO ARE [...] BE BASED ON THE PRIMARY CLINICAL RECORDS. [facility] [employer] provides no warranty or guarantee of the accuracy or completeness of information in this document.
--- NOTE | 2023-09-09 08:00 | CA_ITS ---
Patient Name: STEVE JOHNSON MR#: [id number] : 1955 Exam Date: 09/09/2023 Ordering Doctor: GUERDA AGUILAR M.D. ECHOCARDIOGRAM REPORT PROCEDURE: CA ECHO DOPPLER COMPLETE INDICATIONS: Pre-operative clearance, COPD, hypertension COMPARISON: None. DESCRIPTION: COMPLETE ECHOCARDIOGRAM Real-time transthoracic echocardiography with 2D, M-mode, spectral and color flow Doppler performed. QUALITY: Technical quality was good. LEFT VENTRICLE: Normal chamber size. Normal left ventricular wall thickness. LV EF: Global left ventricular systolic function is difficult to assess but appears preserved; visually estimated ejection fraction is 55 to 60%. Unable to assess regional wall motion abnormalities. DIASTOLIC: Grade II diastolic dysfunction. ATRIAL SEPTUM: Visually appears intact. LEFT ATRIUM: Mild dilatation. RIGHT ATRIUM: Mild dilatation. RIGHT VENTRICLE: Normal chamber size. Normal systolic function. TRICUSPID VALVE: Normal mobility and thickness. Trivial regurgitation. Doppler studies reveal moderately (45-60) elevated right sided pressures. RVSP 51 mmHg MITRAL VALVE: Normal mobility and thickness. No evidence of mitral valve stenosis. There is no mitral annular calcification. No mitral regurgitation. AORTIC VALVE: Normal trileaflet appearance. No visible sclerosis. Normal leaflet mobility. No evidence of aortic valve stenosis. No aortic regurgitation. AORTIC ROOT: Normal diameter and appearance. PULMONIC VALVE: Normal thickness and mobility. No stenosis. Trivial regurgitation. PERICARDIUM: No evidence of pericardial effusion. IVC: Collapses with inspirations. CONCLUSION: 1. Global left ventricular systolic function is difficult to assess but appears preserved; visually estimated ejection fraction is 55 to 60% 2. Normal right ventricular size and systolic function 3. Biatrial enlargement 4. Grade 2 diastolic dysfunction 5. Moderately elevated right ventricular systolic pressure; RVSP 51 mmHg 6. Valves are poorly seen; no obvious valvular abnormalities Adult Echocardiography Procedure Report Left Ventricle LVEDD (3.7 - 5.6 cm): 3.90 cm LVESD (2.2 - 4.0 cm): 2.78 cm LVIVS thickness (0.6 - 1.2 cm): 0.93 cm LVPW thickness (0.5 - 1.0 cm): 0.87 cm e': 0.09 m/s E - e': 8.49 LVOT Max Gradient: 3.24 mm[Hg] LVOT Area (cm2): 0.90 m/s Peak Velocity (LVOT): 0.90 m/s Mean Velocity (LVOT): 0.54 m/s LVOT Diameter 2.05 cm Left Atrium LA Volume Index (2D A2C): 27.89 ml/m2 Left Atrium Systolic Dimension: 3.09 cm Mitral Valve MV E to A Ratio: 0.67 Mitral Valve A-Wave Peak Velocity: 1.09 m/s Mitral Valve E-Wave Peak Velocity: 0.73 m/s Right Ventricle Aorta AO Root Diam: 3.36 cm Ascending Ao Diam: 2.76 cm Aortic Valve AoV Area (Peak Rey): 2.40 cm2, 2.40 cm2 AoV Area (VTI): 3.22 cm2, 3.22 cm2 Peak Velocity(Antegrade Flow): 1.24 m/s Peak Gradient(Antegrade Flow): 6.15 mm[Hg] Mean Velocity(Antegrade Flow): 0.73 m/s Mean Gradient(Antegrade Flow): 2.60 mm[Hg] Velocity Time Integral: 22.05 cm Tricuspid Valve Peak Velocity (Regurgitant Flow): 3.46 m/s Pulmonic Valve Peak Velocity: 1.10 m/s Peak Gradient: 4.63 mm[Hg], 5.03 mm[Hg] Right Atrium Right Atrium Systolic Pressure: 56.94 ml, 56.94 ml Dictated by: Roselyn Batista M.D. on 09/09/2023 at 12:40 Approved by: Roselyn Batista M.D. on 09/09/2023 at 12:43
[2023-09-09] MEDS: REGADENOSON 0.4 MG/5 ML SYRINGE 0.400000000000000022 MG IV (09:49)
== END 2023-09-09 07:55 | disposition home or self-care (01) ==
LOC: NM 07:54
PROVIDERS: Visit Provider Internal Medicine Cardiovascular Disease
DX: Z01.810 Encounter for preprocedural cardiovascular examination (principal)
CPT/HCPCS: 78452; 93017; 93306; A9500; J2785

== ENCOUNTER 2023-09-23 01:16 | Outpatient (REF) | payer MEDICARE, MEDICAID, SELFPAY ==
--- OUTSIDE RECORDS SUMMARY | 2023-09-23 01:27 | XMS_ITS | CCD ---
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] Onset: 4 Episodic [...] Range Facility Office Visiton 08-26-2023 Follow-up visit [id number] Kelby Waddell 1955 F Date Provider Department Center 08/26/2023 3848-GUERDA AGUILAR [facility] Family History Problem Relation Age of Onset Coronary artery disease Mother Cancer Father Diabetes Father Family Status - Relation Status Age at Mother Father Level of Service:09671 [place] OFFICE/OUTPATIENT NEW MODERATE MDM 45 MINUTES Normal [facility] Consent for Procedure/Surger yon 08-24-2023 Consent for Procedure/Surgery [id number] Normal [facility] Consent for Procedure/Surger yon 08-09-2023 Consent for Procedure/Surgery [id number]#[id number] Normal [facility] Urine Cytology ([facility])on 0 08-09-2023 Urine Cytology Diagnosis Info Invalid Interpretation Code [facility] Comment on above: Result Comment: A:Ur ine,Urine:Voided Interpretation - MicroScopic Description - Adequacy - Gross Description Site ID:A color Dark Yellow fixative Alcohol Specimen designated Urine received in alcohol preservative and labeled with the patient?s name, consists of 110ml slightly cloudy dark yellow fluid. Electronically signed by : on: 08/09/2023 11:46:02 Performed By: #### 1 [id number] #### [facility] Laboratory [address] [place] [address] Physician Referralon 024 Physician Referral [id number] Normal [facility] Screenson 08-04-2023 Screens [id number]#[id number] Normal [facility] Urine Cytology ([facility])on 0 08-04-2023 UC Method of Extraction Voided Normal [facility] Comment on above: Performed By: #### 1 [id number] #### [facility] [address] Number of Jars 1 Invalid Interpretation Code [facility] Comment on above: Performed By: #### 1 [id number] #### [facility] [address] Specimen Urine Normal [facility] Comment on above: Performed By: #### 1 [id number] #### [facility] [address] [id number] Type of Service Technical Only Normal [facility] Comment on above: Performed By: #### 1 [id number] #### [facility] [address] [id number] Ambulatory Visit Summaryon 0 08-03-2023 Ambulatory Visit [...] the caus (more content not included)... Normal [facility] Home Recordson 08-03 [facility] Records [id number]#[id number] Normal [facility] Patient Educationon 08-03-19 Patient Education Urology [...] including vitamins, herbs, eye drops, creams, and erun-nag-kgiteqm medicines. ? Any problems you or family [...] care provider tells you to. ? Taking smrk-nox-oiuitrz medicines, vitamins, herbs, and supplements. General instructions [...] be monitor (more content not included)... Normal [facility] Urology Office/Clinic Noteon 08-03-2023 Urology Office/Clinic Note Chief Complaint Cable Former for abnormalitties in urinary system HPI Staff Evaluation requested by Dr Ashley Crespo due to incidental findings on CT 06/06/23. *possible abnormality of urinary system. Ordered due to rectal bleeding. Pt is a new pt. Never before seen in our office. Pt is hard of hearing she can read lips and she has an nurses aid from her home ([facility]) CT abdomen pelvis wo/w con done @ [facility] on 06/06/23 She tried giving [...] age Assessment/Plan 68 yo female resident of [facility] here for new patient evaluation of right hydroureteronephrosis. Pt is hard of hearing, can read lips and she has a nurses aid from her home with her. Mother had lung cancer. Denies any other urologic surgeries. 1. Hydroureteronephrosis (N13.30: Unspecified hydronephrosis) CT AP wo/w PO con @ [facility] on 06/06/23 - mod Rt-sided [...] cysto, if patient unable to submit from [facility] prior 3. Former smoker (Z87.891: Personal history of nicotine dependence) Smoked for a very little amount of time. 4. Aspirin long-term use (Z79.82: long-term (curre (more content not included)... Normal [facility] Comment on above: Result Comment: Elec [...] by: RIVKA FRAZIER Date: 2022-07-05 15:[address] [facility] MG MAMM SCREEN 3D DERRICK CADon 05-14-2022 MG MAMM SCREEN 3D DERRICK CAD Patient: STEVE WADDELL Exam Date: 05/14/2022 : 1955 Gender:F Ordering : DR YAYA LANGLEY D.O. Admission #: [id number] Family : Order #: [id number] CLICK HERE TO VIEW EXAM RADIOLOGY REPORT [...] Treatments None Family Cancers None LOCATION: [facility] BREAST COMPOSITION: Almost entirely fatty. FINDINGS: DIAGNOSTIC [...] MD on 05/14/2022 at 12:49 Normal [facility] BNPon 03-07-2022 Natriuretic peptide B (Bld) [Mass/Vol] 115.0 pg/mL Normal <=900.0 [facility] Comment on above: Performed By: #### B PNEUMATIC TOOL OPERATOR, CMP, HSTROPN #### [facility] [address] [place] [address] Dr. Carl Zuñiga CBC AUTO DIFFon 03-07-2022 BASO # 0.0 103/ul Normal 0.0-0.1 [facility] Comment on above: Performed By: #### B PNEUMATIC TOOL OPERATOR, CMP, HSTROPN #### [facility] [address] [address] [address] Carl Zuñiga Basophils/100 WBC (Bld) 0.0 % Critically low 0.2-2.0 [facility] Comment on above: Performed By: #### B PNEUMATIC TOOL OPERATOR, CMP, HSTROPN #### [facility] [address] [address] [address] Carl Zuñiga EO # 0.1 103/ul Normal 0.0-0.7 [facility] Comment on above: Performed By: #### B PNEUMATIC TOOL OPERATOR, CMP, HSTROPN #### [facility] [address] [address] [address] Carl Zuñiga Eosinophils/100 WBC (Bld) 1.0 % Normal 0.9-7.0 [facility] Comment on above: Performed By: #### B PNEUMATIC TOOL OPERATOR, CMP, HSTROPN #### [facility] [address] [place] [address] Dr. Carl Zuñiga Erythrocyte distribution width (RBC) [Ratio] 13.7 % Normal 11.0-15.0 [facility] Comment on above: Performed By: #### B PNEUMATIC TOOL OPERATOR, CMP, HSTROPN #### [facility] [address] [place] [address] Dr. Carl Zuñiga Hematocrit (Bld) [Volume fraction] 40.8 % Normal 36.0-48.0 [facility] Comment on above: Performed By: #### B PNEUMATIC TOOL OPERATOR, CMP, HSTROPN #### [facility] [address] [place] [address] Dr. Carl Zuñiga Hemoglobin (Bld) [Mass/Vol] 13.1 g/dL Normal 12.0-16.0 [facility] Comment on above: Performed By: #### B PNEUMATIC TOOL OPERATOR, CMP, HSTROPN #### [facility] [address] [place] [address] Dr. Carl Zuñiga IG # 0.02 10e3/ul Normal 0.00-0.03 [facility] Comment on above: Performed By: #### B PNEUMATIC TOOL OPERATOR, CMP, HSTROPN #### [facility] [address] [place] [address] Dr. Carl Zuñiga IG % 0.3 % Normal 0.0-0.5 [facility] Comment on above: Performed By: #### B PNEUMATIC TOOL OPERATOR, CMP, HSTROPN #### [facility] [address] [place] [address] Dr. Carl Zuñiga LYMPH # 0.9 103/ul Critically low 1.2-3.8 [facility] Comment on above: Performed By: #### B PNEUMATIC TOOL OPERATOR, CMP, HSTROPN #### [facility] [address] [place] [address] Dr. Carl Zuñiga Lymphocytes/100 WBC (Bld) 13.9 % Critically low 20.5-60.0 [facility] Comment on above: Performed By: #### B PNEUMATIC TOOL OPERATOR, CMP, HSTROPN #### [facility] [address] [address] [address] Carl Zñuiga MANUAL DIFF REQ NO Normal [facility] Comment on above: Performed By: #### B PNEUMATIC TOOL OPERATOR, CMP, HSTROPN #### [facility] [address] [place] [address] Dr. Carl Zuñiga MCH (RBC) [Entitic mass] 30.8 pg Normal 26.7-34.0 [facility] Comment on above: Performed By: #### B PNEUMATIC TOOL OPERATOR, CMP, HSTROPN #### [facility] [address] [place] [address] Dr. Carl Zuñiga MCHC (RBC) [Mass/Vol] 32.1 g/dL Normal 29.9-35.2 [facility] Comment on above: Performed By: #### B PNEUMATIC TOOL OPERATOR, CMP, HSTROPN #### [facility] [address] [place] [address] Dr. Carl Zuñiga MCV (RBC) [Entitic vol] 96.0 fL Normal 81.0-99.0 [facility] Comment on above: Performed By: #### B PNEUMATIC TOOL OPERATOR, CMP, HSTROPN #### [facility] [address] [place] [address] Dr. Carl Zuñiga MONO # 0.6 103/ul Normal 0.3-0.8 [facility] Comment on above: Performed By: #### B PNEUMATIC TOOL OPERATOR, CMP, HSTROPN #### [facility] [address] [place] [address] Dr. Carl Zuñiga Monocytes/100 WBC (Bld) 9.2 % Normal 1.7-12.0 [facility] Comment on above: Performed By: #### B PNEUMATIC TOOL OPERATOR, CMP, HSTROPN #### [facility] [address] [place] [address] Dr. Carl Zuñiga NEUT # 5.1 103/ul Normal 1.4-6.5 [facility] Comment on above: Performed By: #### B PNEUMATIC TOOL OPERATOR, CMP, HSTROPN #### [facility] [address] [address] [address] Carl Zuñiga Neutrophils/100 WBC (Bld) 75.6 % Critically high 43.0-75.0 [facility] Comment on above: Performed By: #### B PNEUMATIC TOOL OPERATOR, CMP, HSTROPN #### [facility] [address] [address] [address] Carl Zuñiga Platelet mean volume (Bld) [Entitic vol] 8.5 fL Critically low 9.5-13.5 [facility] Comment on above: Performed By: #### B PNEUMATIC TOOL OPERATOR, CMP, HSTROPN #### [facility] [address] [address] [address] Carl Zuñiga PLT 206 103/ul Normal 150-450 [facility] Comment on above: Performed By: #### B PNEUMATIC TOOL OPERATOR, CMP, HSTROPN #### [facility] [address] [place] [address] Dr. Carl Zuñiga RBC 4.25 106/ul Normal 4.20-5.40 [facility] Comment on above: Performed By: #### B PNEUMATIC TOOL OPERATOR, CMP, HSTROPN #### [facility] [address] [address] [address] Carl Zuñiga WBC 6.7 103/ul Normal 4.0-11.0 [facility] Comment on above: Performed By: #### B PNEUMATIC TOOL OPERATOR, CMP, HSTROPN #### [facility] [address] [place] [address] Dr. Carl Zuñiga D-DIMERon 03-07-2022 D-DIMER <0.19 Normal <=0.59 [facility] Comment on above: Performed By: #### D DIM #### [facility] [address] [place] [address] Dr. Carl Zuñiga D-DIMER COMMENTS SEE BELOW Normal [facility] Comment on above: Result Comment: Incr [...] hospitalization. Performed By: #### D DIM #### [facility] [address] [place] [address] Dr. Carl Zuñiga PROF 14(COMP METB)on 022 Albumin [Mass/Vol] 3.9 g/dL Normal 3.4-5.0 [facility] Comment on above: Performed By: #### B PNEUMATIC TOOL OPERATOR, CMP, HSTROPN #### [facility] [address] [place] [address] Dr. Carl Zuñiga Albumin/Globulin [Mass ratio] 1.5 {ratio} Normal [facility] Comment on above: Performed By: #### B PNEUMATIC TOOL OPERATOR, CMP, HSTROPN #### [facility] [address] [place] [address] Dr. Carl Zuñiga ALP [Catalytic activity/Vol] 96 U/L Normal 46-116 [facility] Comment on above: Performed By: #### B PNEUMATIC TOOL OPERATOR, CMP, HSTROPN #### [facility] [address] [place] [address] Dr. Carl Zuñiga ALT [Catalytic activity/Vol] 38 U/L Normal 14-59 [facility] Comment on above: Performed By: #### B PNEUMATIC TOOL OPERATOR, CMP, HSTROPN #### [facility] [address] [place] [address] Dr. Carl Zuñiga Anion gap [Moles/Vol] 9.8 mmol/L Normal [facility] Comment on above: Performed By: #### B PNEUMATIC TOOL OPERATOR, CMP, HSTROPN #### [facility] [address] [place] [address] Dr. Carl Zuñiga AST [Catalytic activity/Vol] 16 U/L Normal 15-37 [facility] Comment on above: Performed By: #### B PNEUMATIC TOOL OPERATOR, CMP, HSTROPN #### [facility] [address] [place] [address] Dr. Carl Zuñiga Bilirubin [Mass/Vol] 0.5 mg/dL Normal 0.2-1.0 [facility] Comment on above: Performed By: #### B PNEUMATIC TOOL OPERATOR, CMP, HSTROPN #### [facility] [address] [place] [address] Dr. Carl Zuñiga Calcium [Mass/Vol] 9.2 mg/dL Normal 8.5-10.1 [facility] Comment on above: Performed By: #### B PNEUMATIC TOOL OPERATOR, CMP, HSTROPN #### [facility] [address] [place] [address] Dr. Carl Zuñiga Chloride [Moles/Vol] 103 mmol/L Normal 98-107 [facility] Comment on above: Performed By: #### B PNEUMATIC TOOL OPERATOR, CMP, HSTROPN #### [facility] [address] [place] [address] Dr. Carl Zuñiga CO2 [Moles/Vol] 29.1 mmol/L Normal 21.0-32.0 [facility] Comment on above: Performed By: #### B PNEUMATIC TOOL OPERATOR, CMP, HSTROPN #### [facility] [address] [place] [address] Dr. Carl Zuñiga Creatinine [Mass/Vol] 0.92 mg/dL Normal 0.55-1.02 [facility] Comment on above: Performed By: #### B PNEUMATIC TOOL OPERATOR, CMP, HSTROPN #### [facility] [address] [place] [address] Dr. Carl Zuñiga EGFR-AF BERMUDIAN >60 Normal >=60 [facility] Comment on above: Performed By: #### B PNEUMATIC TOOL OPERATOR, CMP, HSTROPN #### [facility] [address] [place] [address] Dr. Carl Zuñiga EGFR-NON AF BERMUDIAN >60 Normal >=60 [facility] Comment on above: Performed By: #### B PNEUMATIC TOOL OPERATOR, CMP, HSTROPN #### [facility] [address] [place] [address] Dr. Carl Zuñiga Globulin (S) [Mass/Vol] 2.6 g/dL Normal [facility] Comment on above: Performed By: #### B PNEUMATIC TOOL OPERATOR, CMP, HSTROPN #### [facility] [address] [address] [address] Carl Zuñiga Glucose [Mass/Vol] 109 mg/dL Critically high 74-106 [facility] Comment on above: Performed By: #### B PNEUMATIC TOOL OPERATOR, CMP, HSTROPN #### [facility] [address] [address] [address] Carl Zuñiga Potassium [Moles/Vol] 3.9 mmol/L Normal 3.5-5.1 [facility] Comment on above: Performed By: #### B PNEUMATIC TOOL OPERATOR, CMP, HSTROPN #### [facility] [address] [address] [address] Carl Zuñiga Protein [Mass/Vol] 6.5 g/dL Normal 6.4-8.2 [facility] Comment on above: Performed By: #### B PNEUMATIC TOOL OPERATOR, CMP, HSTROPN #### [facility] [address] [place] [address] Dr. Carl Zuñiga Sodium [Moles/Vol] 138 mmol/L Normal 136-145 [facility] Comment on above: Performed By: #### B PNEUMATIC TOOL OPERATOR, CMP, HSTROPN #### [facility] [address] [address] [address] Carl Zuñiga Urea nitrogen [Mass/Vol] 14.0 mg/dL Normal 7.0-18.0 [facility] Comment on above: Performed By: #### B PNEUMATIC TOOL OPERATOR, CMP, HSTROPN #### [facility] [address] [place] [address] Dr. Carl Zuñiga Urea nitrogen/Creatini ne [Mass ratio] 15.2 mg/mg Normal [facility] Comment on above: Performed By: #### B PNEUMATIC TOOL OPERATOR, CMP, HSTROPN #### [facility] [address] [place] [address] Dr. Carl Zuñiga TROPONIN, HIGH SENSITIVITYon 03-07-2022 HSTROP 2.8 pg/mL Critically low 4.0-51.3 [facility] Comment on above: Result Comment: CUT- OFF POINTS HAVE BEEN ESTABLISHED BASED ON THE FOURTH UNIVERSAL DEFINITIONS OF MYOCARDIAL INFARCTION. THE UPPER REFERENCE LIMIT (URL) OF TROPONIN, DEFINED THE 99TH PERCENTILE OF cTnI DISTRIBUTION IN A REFERENCE POPULATION, HAS BEEN CONFIRMED THE DECISION THRESHOLD FOR MA DIAGNOSIS. Performed By: #### B PNEUMATIC TOOL OPERATOR, CMP, HSTROPN #### [facility] [address] [place], [place] [address] Dr. Carl Zuñiga XR CHEST 1 Von [...] DIANA BREAUX Date: 2022-03-07 10:05 Normal [facility] CT CSPINE WO CONon CT CSPINE WO [...] MARQUES PATEL Date: 2021-07-10 02:49 Normal [facility] CT HEAD WO CONon 07-10-2021 CT HEAD [...] MARQUES PATEL Date: 2021-07-10 02:44 Normal [facility] XR CHEST 1 Von 07-10-2021 XR CHEST [...] MARQUES PATEL Date: 2021-07-10 02:46 Normal [facility] XR PELVIS 1_2 VIEWSon 2020 XR PELVIS [...] MARQUES PATEL Date: 2021-07-10 02:47 Normal [facility] Vital Signs Date Time Vital Sign Value Performing Clinician Carrol perez 08-03-2023 08:23-0500 Blood Pressure Location Pamela Benson [facility] Encounters Encounter Date Encounter Type Care Provider Facility Start: 08-26-2023 End: 08-26-2023 ambulatory GUERDA [facility] Start: 08-24-2023 End: 08-25-2023 ambulatory Pamela Benson Facility:[facility] Start: 08-24-2023 End: 08-24-2023 Off-Site Pamela Benson [facility] Start: 08-04-2023 End: 08-05-2023 ambulatory Pamela Benson Facility:[facility] Start: 08-04-2023 End: 08-04-2023 Lab Drop off Pamela Benson [facility] Start: 08-03-2023 End: 08-04-2023 ambulatory Pamela Benson Facility:[facility] Start: 08-03-2023 End: 08-03-2023 Patient encounter procedure Pamela Benson [facility] Start: 07-27-2023 End: 07-27-2023 ambulatory ASHLEY ZACARIAS Not Available Start: 07-22-2023 ambulatory Pamela Benson Facility[facility] Start: 07-06-2023 ambulatory Pamela Benson Facility:[facility] Start: 07-05-2023 End: 07-05-2023 [...] Provider Fa cility 05-27-2022 SARS-CoV-2 (COVID-19 ) [id number] Pamela Benson [facility] 12-03-2021 SARS-CoV-2 (COVID-19 ) mRNA BNT-162b2 vax Pamela Lue [facility] 08-13-2020 SARS-CoV-2 (COVID-19 ) mRNA BNT-162b2 vax Pamela Lue [facility] Comment on above: Result Comment: 2023: [id number] 07-23-2020 SARS-CoV-2 (COVID-19 ) mRNA BNT-162b2 vax Pamela Lue [facility] Comment on above: Result Comment: 2023: [id number] Payers Date Payer Category Payer Medicare [id number] 2020 Medicaid [id number] 2020 Medicare [id number] 1955 Unknown [id number] 2.16.84 [id number] 1955 Unknown [id number] 1955 Unknown [id number]. [id number] 1955 Unknown [id number] 2.16.8 [id number] 1955 Unknown [id number] 2.16.8 [id number] 1955 Unknown [id number] 2.16.8 [id number] Social History Date Type Detail Facility Start: 08-03-2023 Tobacco smoking status Never s moked tobacco (finding) [facility] Sex Assigned At Female [facility] Functional Status Date Assessment Result Facility 08-03-2023 Functional Status N/A [facility] Progress note 08-26-2023 Note Date & Type Note Facility 08-26-2023 Note Cardiology Clinic No te Chief Complaint: preop risk stratification HPI: Steve Waddell is a 68 y.o. female With no reported cardiac history who presents to cardiology clinic at the request of her ELECTROMECHANICAL TECHNICIAN doctor for perioperative restratification prior to D&C and LEEP procedure. Of note: Patient is deaf. 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 She does her best to communicate by lipreading. She is accompanied by her bus driver supervisor today, who assists in communication. As per patient and her bus driver supervisor, patient denies any cardiac history. She denies any prior history of heart failure, CAD, PCI, or MA. She does report occasional chest pain. Chest [...] a past medical history of Diabetes mellitus ([facility]). Surgical History She has no past surgical [...] HLD -Optimize med (more content not included)... [facility] Progress note 08-26-2023 Note Date & Type Note Facility 08-26-2023 Note New patient here to establish care. Ref from Dr. Crespo for surgery clearance prior to D&C and LEEP procedure. This is scheduled for 08/31 at [facility] per patient. She had labs and EKG last week. Says she gets intermittent chest pain and SOB w/ exertion. Review of Systems HENT: Positive for hearing loss. Cardiovascular: Positive for chest pain (intermittent) and dyspnea on exertion (intermittent). All other systems reviewed and are negative. [facility] Evaluation + Plan note 08-04-2023 Note Date & Type Note Facility 08-04-2023 Evaluation + Plan note Diagnostic Tests PendingUrine Cytology ([facility]) 08/04/23 [facility] Discharge instructions 08-03-2023 Note Date & [...] including vitamins, herbs, eye drops, creams, and mevc-tbg-gxyryvt medicines. Any problems you or family members [...] health care provider tells you to. Taking vlsf-edb-lsgspym medicines, vitamins, herbs, and supplements. General instructions [...] provider. Document Revised: 10/22/2022 Document Reviewed: 10/22/2022 [email or web address] Patient Education 2022 [employer] 08/03/2023 09:37:21 Hematuria, Adult Hematuria, Adult Hematuria [...] Follow these instructions at home: Medicines Take cqkx-bmh-vsjaatk and prescription medicines only as told by [...] or the blood stops without treatment. Take temf-ovy-fbwzeoy and prescription medicines only as told by your health care provider. Drink enough fluid to keep your urine pale yellow. This information is not intended to replace advice given to you by your health care provider. Make sure you discuss any questions you have with your health care provider. Document Revised: 02/25/2021 Document Reviewed: 02/25/2021 [email or web address] Patient Education 2022 [employer] Follow Up Care 07/13/2023 11:34:42 With:Marcelino GALLARDO, Pamela Fam, URL, [facility] Address: When: Unknown Comments:Schedule Cysto, Rt ureteroscopy, possible biopsy, and Rt stent placement [facility] Evaluation + Plan note Note Date & Type Note Facility Evaluation + Plan note No data available for this section [facility] Hospital Discharge instructions Note Date & Type Note Facility Hospital Discharge instructions No data available for this section [facility] Progress note Note Date & Type Note Facility Progress note No data available for this section [facility] Gail Summary Purpose Family History [...] and content) DATE CREATED AUTHOR 07/05/2022 [facility] DATE CREATED AUTHOR AUTHOR'S ORGANIZ ATION 07/28/2023 [facility] EPIC DATE CREATED AUTHOR AUTHOR'S ORGANIZ ATION 08/26/2023 [facility] DATE CREATED AUTHOR AUTHOR'S ORGANIZ ATION 08/28/2023 [facility] Patient Care team informatio n (unrecognized section and content) Personnel Name: YAYA LANGLEY JR, DO Address: Address: [address] [place] [id number] Personnel Name: YAYA LANGLEY JR, DO Address: Address: [address] [place], [place] [id number] Personnel Name: BORISJUAN MIGUEL MANN DO YAYA Address: Address: [address] [place] [id number] FOR RECORDS PERTAINING TO PATIENTS WHO ARE [...] BE BASED ON THE PRIMARY CLINICAL RECORDS. [facility] [employer] provides no warranty or guarantee of the accuracy or completeness of information in this document.
[2023-09-23 08:47] LABS: Basophils Percent Auto 0.3 % (0.2-2.0); Eosinophils Absolute Auto 0.2 10^3/uL (0.0-0.7); Eosinophils Percent Auto 2.1 % (0.9-7.0); Hematocrit 30.2 % (36.0-48.0); Immature Granulocytes Abs Auto 0.04 10^3/uL (0.00-0.03); Immature Granulocytes Pct Auto 0.4 % (0.0-0.5); Lymphocytes Absolute Auto 1.4 10^3/uL (1.2-3.8); Mean Corpuscular HGB Conc 29.8 g/dL (29.9-35.2); Mean Corpuscular Hemoglobin 29.8 pg (26.7-34.0); Mean Platelet Volume 8.8 fL (9.5-13.5); Monocytes Absolute Auto 1.2 10^3/uL (0.3-0.8); Monocytes Percent Auto 10.6 % (1.7-12.0); Neutrophils Percent Auto 73.6 % (43.0-75.0); Platelet Count 395 10^3/uL (150-450); Red Blood Count 3.02 10^6/uL (4.20-5.40); White Blood Count 10.8 10^3/uL (4.0-11.0)
[2023-09-23 09:03] LABS: Alanine Aminotransferase 25 U/L (14-59); Albumin Globulin Ratio 1.2; Albumin Level 3.7 g/dL (3.4-5.0); Alkaline Phosphatase 120 U/L (46-116); Anion Gap 15.6; Aspartate Amino Transferase 16 U/L (15-37); BUN Creatinine Ratio 8.4; Bilirubin Total 0.3 mg/dL (0.2-1.0); Carbon Dioxide 24.6 mmol/L (21.0-32.0); Chloride 102 mmol/L (98-107); Estimated GFR (African America 44 (>=60); Estimated GFR (Non-African Ame 36 (>=60); Globulin 3.2 g/dL; Glucose 124 mg/dL (74-106); Potassium 4.2 mmol/L (3.5-5.1); Sodium 138 mmol/L (136-145); Total Protein 6.9 g/dL (6.4-8.2)
== END 2023-09-23 01:17 | disposition home or self-care (01) ==
LOC: LAB 01:16
PROVIDERS: Visit Provider Internal Medicine
DX: D64.9 Anemia, unspecified (principal)
CPT/HCPCS: 36415; 80053; 85025

== ENCOUNTER 2023-09-30 02:28 | Outpatient (REF) | payer MEDICARE, MEDICAID, SELFPAY ==
--- OUTSIDE RECORDS SUMMARY | 2023-09-30 02:33 | XMS_ITS | CCD ---
Author Organization [facility] Care Team Providers Care Senior Communications Specialist Name Role Phone MARKER, DR SALINAS Consulting Unavailable VALONE, DR JAVIER Primary Care Unavailable MARKER, DR SALINAS Attending Unavailable MARKER, DR SALINAS Admitting Unavailable BENEDICT, DR TINEO Admitting Unavailable BENEDICT, DR TINEO Attending Unavailable VALONE, DR JAVIER Attending Unavailable VALONE, DR JAVIER Admitting Unavailable VALONE, DR JAVIER Primary Care Unavailable REINECK, DR NANI Haley Admitting Unavailabl e ROSALBA, DR NANI Haley Attending UnavailASHLEY Tucker Attending Unavailable ASHLEY CRESPO Attending Unavailable ASHLEY CRESPO Attending Unavailable YAYA LANGLEY JR Primary Care Physician [phone] Pamela Benson Attending Unavailable Pamela Benson Attending Unavailable Ashley CRESPO R Referring Unavailable Pamela Benson Attending Unavailable Pamela Benson Admitting Unavailable GUERDA AGUILAR Attending Unavailable GUERDA AGUILAR Attending Unavailable Medications Current [...] urine; Translations: [Gross hematuria] Onset: 4 Episodic Hypertension with complications and secondary hypertension (2 sources) Hypertensive heart disease without heart failure; Translations: [Hypertensive heart disease without heart failure] Onset: 4 Chronic Other aftercare (1 source) Long-term current use of aspirin; Translations: [retirement (current) use of aspirin] Onset: 4 Episodic [...] Value Interpretation Reference Range Facility Office Visiton 09-23-2023 Follow-up visit [id number] Kelby Waddell 1955 F Date Provider Department Center 09/23/2023 GUERDA RYDER CELESTE Barreto Family History Problem Relation Age of Onset Coronary artery disease Mother Cancer Father Diabetes Father Family Status - Relation Status Age at Mother Father Level of Service:69349 [place] OFFICE/OUTPATIENT ESTABLISHED LOW MDM 20 MIN Reason for Visit and Comments: Follow-up [999731] - Concerns: Not much states some swelling in legs and some back back, chest pain seems to be getting better Normal [facility] Office Visiton 08-26-2023 Follow-up visit [id number] Kelby Waddell 1955 F Date Provider Department Center 08/26/2023 GUERDA RYDER Family History Problem Relation Age of Onset Coronary artery disease Mother Cancer Father Diabetes Father Family Status - Relation Status Age at Mother Father Level of Service:85532 [place] OFFICE/OUTPATIENT NEW MODERATE MDM 45 MINUTES Normal [facility] Consent for Procedure/Surger yon 08-24-2023 Consent for Procedure/Surgery [id number] Normal [facility] Consent for Procedure/Surger yon 08-09-2023 Consent for Procedure/Surgery [id number]#[id number] Normal [facility] Urine Cytology ([facility])on 0 08-09-2023 Urine Cytology Diagnosis Info Invalid Interpretation Code [facility] Comment on above: Result Comment: A:Ur ine,Urine:Voided Interpretation - MicroScopic Description - Adequacy - Gross Description Site ID:A color Dark Yellow fixative Alcohol Specimen designated Urine received in alcohol preservative and labeled with the patient?s name, consists of 110ml slightly cloudy dark yellow fluid. Electronically signed by : on: 08/09/2023 11:46:02 Performed By: #### 1 [id number] #### [facility] Laboratory [address] [place] [address] Physician Referralon 024 Physician Referral [id number] Normal [facility] Screenson 08-04-2023 Screens [id number]#[id number] Normal [facility] Urine Cytology ([facility])on 0 08-04-2023 UC Method of Extraction Voided Normal [facility] Comment on above: Performed By: #### 1 [id number] #### [facility] Laboratory [address] Number of Jars 1 Invalid Interpretation Code [facility] Comment on above: Performed By: #### 1 [id number] #### [facility] Laboratory [address] [id number] UC Specimen Urine Normal [facility] Comment on above: Performed By: #### 1 [id number] #### [facility] Laboratory [address] [place] [address] Type of Service Technical Only Normal [facility] Comment on above: Performed By: #### 1 [id number] #### [facility] Laboratory [address] [place] [address] Ambulatory Visit Summaryon 0 08-03-2023 Ambulatory Visit [...] the caus (more content not included)... Normal [facility] Longterm Recordson 08-03 Longterm Records [id number]#[id number] Normal [facility] Patient Educationon 08-03-19 Patient Education Urology Ureteroscopy [...] including vitamins, herbs, eye drops, creams, and werb-psi-jmodxpc medicines. ? Any problems you or family [...] care provider tells you to. ? Taking ljot-bbb-ekpevuo medicines, vitamins, herbs, and supplements. General instructions [...] be monitor (more content not included)... Normal 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 *possible abnormality of urinary system. Ordered due to rectal bleeding. Pt is a new pt. Never before seen in our office. Pt is hard of hearing she can read lips and she has an nurses aid from her home ([facility]) CT abdomen pelvis wo/w con done @ [facility] on 06/06/23 She tried giving a [...] age Assessment/Plan 68 yo female resident of [facility] here for new patient evaluation of [...] of time. 4. 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 Normal [facility] Comment on above: Result Comment: Elec tronically Signed By: Pamela Benson MD\.br\Date and Time Signed: 08/03/23 19:48 EST\.br\Electronically Co-Signed By: Martha Major\.br\Date and Time Co-Signed: 08/03/23 09:41 EST MRI BRAIN WO CONon 2 MRI BRAIN WO CON EXAMINATION: MRI BRA IN [facility], 07/05/2022 10:23 AM EST HISTORY: Amnesia COMPARISON: [...] mass or suspicious findings. Electronically authenticated by: RIVKAMAGALIS FRAZIER Date: 2022-07-05 15:47 Normal [facility] MG MAMM SCREEN 3D DERRICK CADon 05-14-2022 MG MAMM SCREEN 3D DERRICK CAD Patient: STEVE WADDELL Exam Date: 05/14/2022 : 1955 Gender:F Ordering : DR YAYA LANGLEY D.O. Admission #: [id number] Family : Order #: [id number] CLICK HERE TO VIEW EXAM RADIOLOGY REPORT [...] Treatments None Family Cancers None LOCATION: [facility] BREAST COMPOSITION: Almost entirely fatty. FINDINGS: [...] MD on 05/14/2022 at 12:49 Normal [facility] BNPon 03-07-2022 Natriuretic peptide B (Bld) [Mass/Vol] 115.0 pg/mL Normal <=900.0 [facility] Comment on above: Performed By: #### B LICENSED OCCUPATIONAL THERAPY ASSISTANT, CMP, HSTROPN #### [facility] [address] [place], [place] [address] Dr. Carl Zuñiga CBC AUTO DIFFon 03-07-2022 BASO # 0.0 103/ul Normal 0.0-0.1 [facility] Comment on above: Performed By: #### B LICENSED OCCUPATIONAL THERAPY ASSISTANT, CMP, HSTROPN #### [facility] [address] [place] [address] Dr. Carl Zuñiga Basophils/100 WBC (Bld) 0.0 % Critically low 0.2-2.0 [facility] Comment on above: Performed By: #### B LICENSED OCCUPATIONAL THERAPY ASSISTANT, CMP, HSTROPN #### [facility] [address] [place] [address] Dr. Carl Zuñiga EO # 0.1 103/ul Normal 0.0-0.7 [facility] Comment on above: Performed By: #### B LICENSED OCCUPATIONAL THERAPY ASSISTANT, CMP, HSTROPN #### [facility] [address] [place] [address] Dr. Carl Zuñiga Eosinophils/100 WBC (Bld) 1.0 % Normal 0.9-7.0 [facility] Comment on above: Performed By: #### B LICENSED OCCUPATIONAL THERAPY ASSISTANT, CMP, HSTROPN #### [facility] [address] [place] [address] Dr. Carl Zuñiga Erythrocyte distribution width (RBC) [Ratio] 13.7 % Normal 11.0-15.0 [facility] Comment on above: Performed By: #### B LICENSED OCCUPATIONAL THERAPY ASSISTANT, CMP, HSTROPN #### [facility] [address] [place] [address] Dr. Carl Zuñiga Hematocrit (Bld) [Volume fraction] 40.8 % Normal 36.0-48.0 [facility] Comment on above: Performed By: #### B LICENSED OCCUPATIONAL THERAPY ASSISTANT, CMP, HSTROPN #### [facility] [address] [place] [address] Dr. Carl Zuñiga Hemoglobin (Bld) [Mass/Vol] 13.1 g/dL Normal 12.0-16.0 [facility] Comment on above: Performed By: #### B LICENSED OCCUPATIONAL THERAPY ASSISTANT, CMP, HSTROPN #### [facility] [address] [place] [address] Dr. Carl Zuñiga IG # 0.02 10e3/ul Normal 0.00-0.03 [facility] Comment on above: Performed By: #### B LICENSED OCCUPATIONAL THERAPY ASSISTANT, CMP, HSTROPN #### [facility] [address] [place] [address] Dr. Carl Zuñiga IG % 0.3 % Normal 0.0-0.5 [facility] Comment on above: Performed By: #### B LICENSED OCCUPATIONAL THERAPY ASSISTANT, CMP, HSTROPN #### [facility] [address] [place] [address] Dr. Carl Zuñiga LYMPH # 0.9 103/ul Critically low 1.2-3.8 [facility] Comment on above: Performed By: #### B LICENSED OCCUPATIONAL THERAPY ASSISTANT, CMP, HSTROPN #### [facility] [address] [place] [address] Dr. Carl Zuñiga Lymphocytes/100 WBC (Bld) 13.9 % Critically low 20.5-60.0 [facility] Comment on above: Performed By: #### B LICENSED OCCUPATIONAL THERAPY ASSISTANT, CMP, HSTROPN #### [facility] [address] [place] [address] Dr. Carl Zuñiga MANUAL DIFF REQ NO Normal [facility] Comment on above: Performed By: #### B LICENSED OCCUPATIONAL THERAPY ASSISTANT, CMP, HSTROPN #### [facility] [address] [place] [address] Dr. Carl Zuñiga MCH (RBC) [Entitic mass] 30.8 pg Normal 26.7-34.0 [facility] Comment on above: Performed By: #### B LICENSED OCCUPATIONAL THERAPY ASSISTANT, CMP, HSTROPN #### [facility] [address] [place] [address] Dr. Carl Zuñiga MCHC (RBC) [Mass/Vol] 32.1 g/dL Normal 29.9-35.2 [facility] Comment on above: Performed By: #### B LICENSED OCCUPATIONAL THERAPY ASSISTANT, CMP, HSTROPN #### [facility] [address] [place] [address] Dr. Carl Zuñiga MCV (RBC) [Entitic vol] 96.0 fL Normal 81.0-99.0 [facility] Comment on above: Performed By: #### B LICENSED OCCUPATIONAL THERAPY ASSISTANT, CMP, HSTROPN #### [facility] [address] [place] [address] Dr. Carl Zuñiga MONO # 0.6 103/ul Normal 0.3-0.8 [facility] Comment on above: Performed By: #### B LICENSED OCCUPATIONAL THERAPY ASSISTANT, CMP, HSTROPN #### [facility] [address] [place] [address] Dr. Carl Zuñiga Monocytes/100 WBC (Bld) 9.2 % Normal 1.7-12.0 [facility] Comment on above: Performed By: #### B LICENSED OCCUPATIONAL THERAPY ASSISTANT, CMP, HSTROPN #### [facility] [address] [place] [address] Dr. Carl Zuñiga NEUT # 5.1 103/ul Normal 1.4-6.5 [facility] Comment on above: Performed By: #### B LICENSED OCCUPATIONAL THERAPY ASSISTANT, CMP, HSTROPN #### [facility] [address] [place] [address] Dr. Carl Zuñiga Neutrophils/100 WBC (Bld) 75.6 % Critically high 43.0-75.0 [facility] Comment on above: Performed By: #### B LICENSED OCCUPATIONAL THERAPY ASSISTANT, CMP, HSTROPN #### [facility] [address] [place] [address] Dr. Carl Zuñiga Platelet mean volume (Bld) [Entitic vol] 8.5 fL Critically low 9.5-13.5 [facility] Comment on above: Performed By: #### B LICENSED OCCUPATIONAL THERAPY ASSISTANT, CMP, HSTROPN #### [facility] [address] [place] [address] Dr. Carl Zuñiga PLT 206 103/ul Normal 150-450 [facility] Comment on above: Performed By: #### B LICENSED OCCUPATIONAL THERAPY ASSISTANT, CMP, HSTROPN #### [facility] [address] [place] [address] Dr. Carl Zuñiga RBC 4.25 106/ul Normal 4.20-5.40 [facility] Comment on above: Performed By: #### B LICENSED OCCUPATIONAL THERAPY ASSISTANT, CMP, HSTROPN #### [facility] [address] [place] [address] Dr. Carl Zuñiga WBC 6.7 103/ul Normal 4.0-11.0 [facility] Comment on above: Performed By: #### B LICENSED OCCUPATIONAL THERAPY ASSISTANT, CMP, HSTROPN #### [facility] [address] [place] [address] Dr. Carl Zuñiga D-DIMERon 03-07-2022 D-DIMER <0.19 Normal <=0.59 [facility] Comment on above: Performed By: #### D DIM #### [facility] [address] [place] [address] Dr. Carl Zuñiga D-DIMER COMMENTS SEE BELOW Normal [facility] Comment on above: Result Comment: Incr eases [...] hospitalization. Performed By: #### D DIM #### [facility] [address] [place] [address] Dr. Carl Zuñiga PROF 14(COMP METB)on 022 Albumin [Mass/Vol] 3.9 g/dL Normal 3.4-5.0 [facility] Comment on above: Performed By: #### B LICENSED OCCUPATIONAL THERAPY ASSISTANT, CMP, HSTROPN #### [facility] [address] [place] [address] Dr. Carl Zuñiga Albumin/Globulin [Mass ratio] 1.5 {ratio} Normal [facility] Comment on above: Performed By: #### B LICENSED OCCUPATIONAL THERAPY ASSISTANT, CMP, HSTROPN #### [facility] [address] [place] [address] Dr. Carl Zuñiga ALP [Catalytic activity/Vol] 96 U/L Normal 46-116 [facility] Comment on above: Performed By: #### B LICENSED OCCUPATIONAL THERAPY ASSISTANT, CMP, HSTROPN #### [facility] [address] [place] [address] Dr. Carl Zuñiga ALT [Catalytic activity/Vol] 38 U/L Normal 14-59 [facility] Comment on above: Performed By: #### B LICENSED OCCUPATIONAL THERAPY ASSISTANT, CMP, HSTROPN #### [facility] [address] [place] [address] [address] Carl Zuñiga Anion gap [Moles/Vol] 9.8 mmol/L Normal [facility] Comment on above: Performed By: #### B LICENSED OCCUPATIONAL THERAPY ASSISTANT, CMP, HSTROPN #### [facility] [address] [place] [address] [address] Carl Zuñiga AST [Catalytic activity/Vol] 16 U/L Normal 15-37 [facility] Comment on above: Performed By: #### B LICENSED OCCUPATIONAL THERAPY ASSISTANT, CMP, HSTROPN #### [facility] [address] [address] [address] Carl Zuñiga Bilirubin [Mass/Vol] 0.5 mg/dL Normal 0.2-1.0 [facility] Comment on above: Performed By: #### B LICENSED OCCUPATIONAL THERAPY ASSISTANT, CMP, HSTROPN #### [facility] [address] [place] [address] Dr. Carl Zuñiga Calcium [Mass/Vol] 9.2 mg/dL Normal 8.5-10.1 [facility] Comment on above: Performed By: #### B LICENSED OCCUPATIONAL THERAPY ASSISTANT, CMP, HSTROPN #### [facility] [address] [address] [address] Carl Zuñiga Chloride [Moles/Vol] 103 mmol/L Normal 98-107 [facility] Comment on above: Performed By: #### B LICENSED OCCUPATIONAL THERAPY ASSISTANT, CMP, HSTROPN #### [facility] [address] [address] [address] Carl Zuñiga CO2 [Moles/Vol] 29.1 mmol/L Normal 21.0-32.0 [facility] Comment on above: Performed By: #### B LICENSED OCCUPATIONAL THERAPY ASSISTANT, CMP, HSTROPN #### [facility] [address] [address] [address] Carl Zuñiga Creatinine [Mass/Vol] 0.92 mg/dL Normal 0.55-1.02 [facility] Comment on above: Performed By: #### B LICENSED OCCUPATIONAL THERAPY ASSISTANT, CMP, HSTROPN #### [facility] [address] [address] [address] Carl Zuñiga EGFR-AF SCOTTISH >60 Normal >=60 [facility] Comment on above: Performed By: #### B LICENSED OCCUPATIONAL THERAPY ASSISTANT, CMP, HSTROPN #### [facility] [address] [place] [address] Dr. Carl Zuñiga EGFR-NON AF SCOTTISH >60 Normal >=60 [facility] Comment on above: Performed By: #### B LICENSED OCCUPATIONAL THERAPY ASSISTANT, CMP, HSTROPN #### [facility] [address] [place] [address] Dr. Carl Zuñiga Globulin (S) [Mass/Vol] 2.6 g/dL Normal [facility] Comment on above: Performed By: #### B LICENSED OCCUPATIONAL THERAPY ASSISTANT, CMP, HSTROPN #### [facility] [address] [place] [address] Dr. Carl Zuñiga Glucose [Mass/Vol] 109 mg/dL Critically high 74-106 [facility] Comment on above: Performed By: #### B LICENSED OCCUPATIONAL THERAPY ASSISTANT, CMP, HSTROPN #### [facility] [address] [place] [address] Dr. Carl Zuñiga Potassium [Moles/Vol] 3.9 mmol/L Normal 3.5-5.1 [facility] Comment on above: Performed By: #### B LICENSED OCCUPATIONAL THERAPY ASSISTANT, CMP, HSTROPN #### [facility] [address] [place] [address] Dr. Carl Zuñiga Protein [Mass/Vol] 6.5 g/dL Normal 6.4-8.2 [facility] Comment on above: Performed By: #### B LICENSED OCCUPATIONAL THERAPY ASSISTANT, CMP, HSTROPN #### [facility] [address] [place] [address] Dr. Carl Zuñiga Sodium [Moles/Vol] 138 mmol/L Normal 136-145 [facility] Comment on above: Performed By: #### B LICENSED OCCUPATIONAL THERAPY ASSISTANT, CMP, HSTROPN #### [facility] [address] [place] [address] Dr. Carl Zuñiga Urea nitrogen [Mass/Vol] 14.0 mg/dL Normal 7.0-18.0 [facility] Comment on above: Performed By: #### B LICENSED OCCUPATIONAL THERAPY ASSISTANT, CMP, HSTROPN #### [facility] [address] [address] [address] Carl Zuñiga Urea nitrogen/Creatini ne [Mass ratio] 15.2 mg/mg Normal [facility] Comment on above: Performed By: #### B LICENSED OCCUPATIONAL THERAPY ASSISTANT, CMP, HSTROPN #### [facility] [address] [address] [address] Carl Zuñiga TROPONIN, HIGH SENSITIVITYon 03-07-2022 HSTROP 2.8 pg/mL Critically low 4.0-51.3 [facility] Comment on above: Result Comment: CUT- OFF POINTS HAVE BEEN ESTABLISHED BASED ON THE FOURTH UNIVERSAL DEFINITIONS OF MYOCARDIAL INFARCTION. THE UPPER REFERENCE LIMIT (URL) OF TROPONIN, DEFINED THE 99TH PERCENTILE OF cTnI DISTRIBUTION IN A REFERENCE POPULATION, HAS BEEN CONFIRMED THE DECISION THRESHOLD FOR [place] DIAGNOSIS. Performed By: #### B LICENSED OCCUPATIONAL THERAPY ASSISTANT, CMP, HSTROPN #### [facility] [address] [address] [address] Carl Zuñiga XR CHEST 1 Von [...] by: DIANA BREAUX Date: 2022-03-07 10:05 Normal [facility] CT CSPINE WO CONon CT [...] MARQUES PATEL Date: 2021-07-10 02:49 Normal [facility] CT HEAD WO CONon 07-10-2021 CT [...] by: MARQUES PATEL Date: 2021-07-10 02:44 Normal [facility] XR CHEST 1 Von 07-10-2021 [...] by: MARQUES PATEL Date: 2021-07-10 02:46 Normal [facility] XR PELVIS 1_2 VIEWSon 2020 [...] by: MARQUES PATEL Date: 2021-07-10 02:47 Normal [facility] Vital Signs Date Time Vital Sign Value Performing Clinician Carrol perez 08-03-2023 08:23-0500 Blood Pressure Location Pamela Lue [facility] Encounters Encounter Date Encounter Type Care Provider Facility Start: 09-23-2023 End: 09-23-[address] [facility] Start: 08-26-2023 End: 08-26-[address] [facility] Start: 08-24-2023 End: 08-25-2023 ambulatory Pamela M. Lue Facility:[facility] Start: 08-24-2023 End: 08-24-2023 Off-Site Pamela M. Lue [facility] Start: 08-04-2023 End: 08-05-2023 ambulatory Pamela M. Lue Facility[facility] Start: 08-04-2023 End: 08-04-2023 Lab Drop off Pamela M. Lue [facility] Start: 08-03-2023 End: 08-04-2023 ambulatory Pamela M. Lue Facility:[facility] Start: 08-03-2023 End: 08-03-2023 Patient encounter procedure Pamela M. Lue [facility] Start: 07-27-2023 End: 07-27-2023 ambulatory ASHLEY ZACARIAS Not Available Start: 07-22-2023 ambulatory Pamela Lue Facility[facility] Start: 07-06-2023 ambulatory Pamela Lue Facility:[facility] Start: 07-05-2023 End: 07-05-2023 ambulatory ASHLEY ZACARIAS Not Available Start: 05-25-2023 End: 05-25-2023 ambulatory ASHLEY CRESPO Not Available Start: 07-05-[address] RIVKA PNA Faci lity:H1 Start: 05-14-[address] YAYA Ruano ity:H1 Start: 03-07-[address] YAYA Ruano ity:H1 Start: 07-10-[address] RITA Ruano ity:H1 Procedures Date Procedure Procedure Detail Performing Clinician x3 Pamela Lue Immunizations Immunization Date Immunization Notes Care Provider Fa cility 05-27-2022 SARS-CoV-2 (COVID-19 ) [id number] Pamela Lue [facility] 06-12-2021 SARS-CoV-2 (COVID-19 ) mRNA BNT-162b2 vax Pamela Lue [facility] 08-13-2020 SARS-CoV-2 (COVID-19 ) mRNA BNT-162b2 vax Pamela Lue [facility] Comment on above: Result Comment: 2023: [id number] 07-23-2020 SARS-CoV-2 (COVID-19 ) mRNA BNT-162b2 vax Pamela Lue [facility] Comment on above: Result Comment: 2023: [id number] Payers Date Payer Category Payer Medicare [id number] 2020 Medicaid [id number] 2020 Medicare [id number] 1955 Unknown [id number] 2.16.84 [id number] 1955 Unknown [id number] 1955 Unknown [id number] 1955 Unknown [id number] 2.16.8 [id number] 1955 Unknown [id number] 2.16.8 [id number] 1955 Unknown [id number] 2.16.8 [id number] Social History Date Type Detail Facility Start: 08-03-2023 Tobacco smoking status Never s moked tobacco (finding) [facility] Sex Assigned At Female [facility] Functional Status Date Assessment Result Facility 08-03-2023 Functional Status N/A [facility] Progress note 09-23-2023 Note Date & Type Note Facility 09-23-2023 Note Concerns: Not much s tates some swelling in legs and some back back, chest pain seems to be getting better [facility] Progress note 09-23-2023 Note Date & Type Note Facility 09-23-2023 Note Cardiology Clinic No te Chief Complaint: preop risk stratification HPI: Steve Waddell is a 68 y.o. female With no reported cardiac history who presents to cardiology clinic at the request of her [employer] doctor for perioperative restratification prior to D&C and LEEP procedure. Of note: Patient is deaf. 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 She does her best to communicate by lipreading. She is accompanied by her motor coach bus driver today, who assists in communication. Today, patient denies any new cardiac complaints or concerns. She continues to endorse some shortness of breath And atypical chest pain. Chest pain occurs only at rest and does not worsen with exertion. She endorses bilateral lower extremity edema. Stress test and echocardiogram were performed after last visit. Stress test without evidence of ischemia. Echocardiogram demonstrated preserved EF. She had moderately elevated right-sided pressures (51 mmHg) and diastolic dysfunction. Cardiology ROS: GENERAL: Denies fever, chills, night [...] a past medical history of Diabetes mellitus ([facility]). Surgical History She has no past surgical [...] acarbose (Precose) 100 mg tablet Refills(s) 0 acetaminophen 500 mg capsule Refills(s) 0 aspirin 81 mg EC tablet [...] known allergies. Physical Exam VITAL SIGNS: BP 106/67 (BP Location: Right arm, Patient Position: Sitting, BP Cuff Size: Adult) Pulse 78 Resp 17 Ht 1.626 m (5' 4 ) Wt 92 kg (202 lb 12.8 oz) SpO2 99% BMI 34.81 kg/m??? Constitutional: Well developed, Well nourished, No [...] Back: No tenderness, No CVA tenderness. Extremities: 1+ bilateral lower extremity edema, Intact distal pulses, No tenderness, No cyanosis, No clubbing. Musculoskeletal: Grossly normal strength in extremities Neurologic: Alert & oriented x 3, no gross focal neurological deficits Psychiatric: Affect normal, Judgment normal, Mood normal. Impression: -Perioperative risk stratification -Atypical chest pain, low risk stress test -Shortness of breath -Moderately elevated right sided pressures -HLD Plan: -Given moderately elevated right-sided pressures on lower extremity edema, will start patient on Lasix 20 mg daily.Will check BMP in 1 week, with follow-up the following week.I presume that elevated pressures are likely due to volume overload. -Further recommendations regardi (more content not included)... [facility] Progress note 08-26-2023 Note Date & Type Note Facility 08-26-2023 Note New patient here to establish care. Ref from Dr. Crespo for surgery clearance prior to D&C and LEEP procedure. This is scheduled for 08/31 at [facility] per patient. She had labs and EKG last week. Says she gets intermittent chest pain and SOB w/ exertion. Review of Systems HENT: Positive for hearing loss. Cardiovascular: Positive for chest pain (intermittent) and dyspnea on exertion (intermittent). All other systems reviewed and are negative. [facility] Progress note 08-26-2023 Note Date & Type Note Facility 08-26-2023 Note Cardiology Clinic No te Chief Complaint: preop risk stratification HPI: Steve Waddell is a 68 y.o. female With no reported cardiac history who presents to cardiology clinic at the request of her [employer] doctor for perioperative restratification prior to D&C and LEEP procedure. Of note: Patient is deaf. 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 She does her best to communicate by lipreading. She is accompanied by her motor coach bus driver today, who assists in communication. As per patient and her motor coach bus driver, patient denies any cardiac history. She denies any prior history of heart failure, CAD, PCI, or TN. She does report occasional chest pain. Chest [...] a past medical history of Diabetes mellitus ([facility]). Surgical History She has no past surgical [...] HLD -[facility] [facility] (more content not included)... [facility] Evaluation + Plan note 08-04-2023 Note Date & Type Note Facility 08-04-2023 Evaluation + Plan note Diagnostic Tests PendingUrine Cytology ([facility]) 08/04/23 [facility] Hospital Discharge instructions 08-03-2023 Note Date [...] including vitamins, herbs, eye drops, creams, and rhvo-rtr-xjjwhwa medicines. Any problems you or family members [...] health care provider tells you to. Taking ywdc-luj-foafokj medicines, vitamins, herbs, and supplements. General instructions [...] provider. Document Revised: 10/22/2022 Document Reviewed: 10/22/2022 [employer] Patient Education 2022 [employer]. 08/03/2023 09:37:21 Hematuria, Adult Hematuria, Adult Hematuria [...] Follow these instructions at home: Medicines Take uhay-rwc-yzbzjtk and prescription medicines only as told by [...] or the blood stops without treatment. Take lktd-boh-eucyrni and prescription medicines only as told by your health care provider. Drink enough fluid to keep your urine pale yellow. This information is not intended to replace advice given to you by your health care provider. Make sure you discuss any questions you have with your health care provider. Document Revised: 02/25/2021 Document Reviewed: 02/25/2021 [employer] Patient Education 2022 [employer]. Follow Up Care 07/13/2023 11:34:42 With:Marcelino GALLARDO, Pamela Fam URL, [facility] Address: When: Unknown Comments:Schedule Cysto, Rt ureteroscopy, possible biopsy, and Rt stent placement [facility] Evaluation + Plan note Note Date & Type Note Facility Evaluation + Plan note No data available for this section [facility] Hospital Discharge instructions Note Date & Type Note Facility Hospital Discharge instructions No data available for this section [facility] Progress note Note Date & Type Note Facility Progress note No data available for this section [facility] Summary Purpose Family History No Family [...] DATE CREATED AUTHOR AUTHOR'S ORGANIZ ATION 07/28/2023 [facility] EPIC DATE CREATED AUTHOR AUTHOR'S ORGANIZ ATION 08/26/2023 Corona Willingham [facility] DATE CREATED AUTHOR AUTHOR'S ORGANIZ ATION 09/24/2023 [facility] Patient Care team informatio n (unrecognized section and content) Personnel Name: YAYA LANGLEY JR, DO Address: Address: [address] [place], [place] [id number] Personnel Name: YAYA LANGLEY JR, DO Address: Address: [address] [place], [place] [id number] Personnel Name: YAYA LANGLEY JR, DO Address: Address: [address] [place], [place] [id number] FOR RECORDS PERTAINING TO PATIENTS WHO ARE [...] BE BASED ON THE PRIMARY CLINICAL RECORDS. [employer] provides no warranty or guarantee of the accuracy or completeness of information in this document.
[2023-09-30 08:49] LABS: Anion Gap 17.1; BUN Creatinine Ratio 9.4; Calcium 9.3 mg/dL (8.5-10.1); Carbon Dioxide 26.5 mmol/L (21.0-32.0); Chloride 98 mmol/L (98-107); Estimated GFR (African America 36 (>=60); Estimated GFR (Non-African Ame 30 (>=60); Glucose 97 mg/dL (74-106); Potassium 4.6 mmol/L (3.5-5.1); Sodium 137 mmol/L (136-145)
== END 2023-09-30 02:29 | disposition home or self-care (01) ==
LOC: LAB 02:28
PROVIDERS: Visit Provider Internal Medicine Cardiovascular Disease
DX: I10 Essential (primary) hypertension (principal)
CPT/HCPCS: 36415; 80048

== ENCOUNTER 2023-10-14 03:05 | Outpatient (REF) | payer MEDICARE, MEDICAID, SELFPAY ==
--- OUTSIDE RECORDS SUMMARY | 2023-10-14 03:11 | XMS_ITS | CCD ---
Author Organization [facility] Care Team Providers Care Director Hematology Name Role Phone MARKER, DR SALINAS Consulting Unavailable VALONE, DR JAVIER Primary Care Unavailable MARKER, DR SALINAS Attending Unavailable MARKER, DR SALINAS Admitting Unavailable BENEDICT, DR TINEO Admitting Unavailable BENEDICT, DR TINEO Attending Unavailable VALONE, DR JAVIER Attending Unavailable VALONE, DR JAVIER Admitting Unavailable VALONE, DR JAVIER Primary Care Unavailable REINECK, DR NANI Haley Admitting Unavailalice e ROSALBA, DR NANI Haley Attending UnavailASHLEY Tucker Attending Unavailable ASHLEY CRESPO Attending Unavailable ASHLEY CRESPO Attending Unavailable YAYA LANGLEY JR Primary Care Physician Pamela Benson Attending Unavailable Pamela Benson Attending Unavailable Ashley CRESPO R Referring Unavailable Pamela Benson Attending Unavailable Pamela Benson Admitting Unavailable REBECCA GALEANO Attending Unavailable GUERDA CATES Attending Unavailable GUERDA CATES Attending Unavailable Medications Current Medications Medication Drug [...] (3 sources) Asthma 04-17-2012 Chronic Essential hypertension (5 sources) Hypertensive disorder; Translations: [Essential (primary) hypertension] Onset: 4 12-27-2013 Chronic Genitourinary congenital anomalies (3 sources) [...] source) Long-term current use of aspirin; 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] Onset: 4 Episodic [...] Value Interpretation Reference Range Facility Office Visiton 10-06-2023 Follow-up visit [id number] Kelby Waddell 1955 Date Provider Department Center 10/06/2023 REBECCA VASQUEZ CELESTE Barreto Family History Problem Relation Age of Onset Coronary artery disease Mother Cancer Father Diabetes Father Family Status - Relation Status Age at Mother Father Level of Service:87387 GA OFFICE/OUTPATIENT ESTABLISHED MOD MDM 30 MIN Normal [facility] Office Visiton 09-23-2023 Follow-up visit [id number] Kelby Waddell 1955 Date Provider Department Center 09/23/2023 GUERDA RYDER [facility] Family History Problem Relation Age of Onset Coronary artery disease Mother Cancer Father Diabetes Father Family Status - Relation Status Age at Mother Father Level of Service:24183 GA OFFICE/OUTPATIENT ESTABLISHED LOW MDM 20 MIN Reason for Visit and Comments: Follow-up [249036] - Concerns: Not much states some swelling in legs and some back back, chest pain seems to be getting better Normal [facility] Office Visiton 08-26-2023 Follow-up visit [id number] Kelby Waddell 1955 F Date Provider Department Center 08/26/2023 GUERDA RYDER [facility] Family History Problem Relation Age of Onset Coronary artery disease Mother Cancer Father Diabetes Father Family Status - Relation Status Age at Mother Father Level of Service:45177 GA OFFICE/OUTPATIENT NEW MODERATE MDM 45 MINUTES Normal [facility] Consent for Procedure/Surger yon 08-24-2023 Consent for Procedure/Surgery [id number]#[id number] Normal [facility] Consent for Procedure/Surger yon 08-09-2023 Consent for Procedure/Surgery [id number]#[id number] Normal [facility] Urine Cytology ([facility])on 0 08-09-2023 Urine Cytology Diagnosis Info Invalid Interpretation Code [facility] Comment on above: Result Comment: A:Ur ine,Urine:Voided Interpretation - MicroScopic Description - Adequacy - Gross Description Site ID:A color Dark Yellow fixative Alcohol Specimen designated Urine received in alcohol preservative and labeled with the patient?s name, consists of 110ml slightly cloudy dark yellow fluid. Electronically signed by : on: 08/09/2023 11:46:02 Performed By: #### 1 [id number] #### [facility] Laboratory [address] [place] [address] Physician Referralon 024 Physician Referral [id number] Normal [facility] Screenson 08-04-2023 Screens [id number] Normal [facility] Urine Cytology ([facility])on 0 08-04-2023 UC Method of Extraction Voided Normal [facility] Comment on above: Performed By: #### 1 [id number] #### [facility] [address] [id number] Number of Jars 1 Invalid Interpretation Code [facility] Comment on above: Performed By: #### 1 [id number] #### [facility] [address] [place] [address] UC Specimen Urine Normal [facility] Comment on above: Performed By: #### 1 [id number] #### [facility] [address] [place] [address] Type of Service Technical Only Normal [facility] Comment on above: Performed By: #### 1 [id number] #### [facility] [address] [place] [address] Ambulatory Visit Summaryon 0 08-03-2023 Ambulatory Visit Summary STEVE WADDELL :1955 Visit Date:08/03/2023 Ambulatory Visit Instructions Your Diagnosis Ureteral dilatation Gross hematuria Former smoker Aspirin long-term use Your Care Team Attending Physician - Pamela Benson MD Primary Care Physician - YAYA ALNGLEY JR, DO Referring Physician - Ashley CRESPO [...] the caus (more content not included)... Normal [facility] Custodial Recordson 08-03 Custodial Records [id number]#[id number] Normal [facility] Patient Educationon 08-03-19 Patient Education Urology [...] including vitamins, herbs, eye drops, creams, and lssu-pzb-zbciudb medicines. ? Any problems you or family [...] care provider tells you to. ? Taking layo-ikk-egwxwfu medicines, vitamins, herbs, and supplements. General instructions [...] monitor (more content not included)... Normal [facility] Urology Office/Clinic Noteon 08-03-2023 Urology Office/Clinic Note Chief Complaint Spring Former Hand for abnormalitties in urinary system HPI Staff Evaluation requested by Dr Ashley Crespo due to incidental findings on CT 06/06/23. *possible abnormality of urinary system. Ordered due to rectal bleeding. Pt is a new pt. Never before seen in our office. Pt is hard of hearing she can read lips and she has an nurses aid from her home ([facility]) CT abdomen pelvis wo/w con done @ [facility] on 06/06/23 She tried giving a [...] age Assessment/Plan 68 yo female resident of [facility] here for new patient evaluation of right hydroureteronephrosis. Pt is hard of hearing, can read lips and she has a nurses aid from her home with her. Mother had lung cancer. Denies any other urologic surgeries. 1. Hydroureteronephrosis (N13.30: Unspecified hydronephrosis) CT AP wo/w PO con @ [facility] on 06/06/23 - mod Rt-sided collecting [...] cysto, if patient unable to submit from [facility] prior 3. Former smoker (Z87.891: Personal history of nicotine dependence) Smoked for a very little amount of time. 4. Aspirin long-term use (Z79.82: [facility] (curre (more content not included)... Normal [facility] Comment on above: Result Comment: Elec [...] RIVKA FRAZIER Date: 2022-07-05 15:47 Normal [facility] MAMM SCREEN 3D DERRICK CADon 05-14-2022 MG MAMM SCREEN 3D DERRICK CAD Patient: STEVE WADDELL Exam Date: 05/14/2022 : 1955 Gender:F Ordering : DR YAYA LANGLEY D.O. Admission #: [id number] Family : Order #: [id number] CLICK HERE TO VIEW EXAM RADIOLOGY REPORT PROCEDURE: MAMMOGRAM SCREENING 3D BILATERAL CAD COMPARISON: MAMM DERRICK DIAG W CAD, 04/23/2019. MAMM SCREEN 3D DERRICK CAD, 05/08/2021. INDICATIONS: Screening mammography Calculator Name NCI Breast Cancer Risk Assessment Tool 5 Year Breast Cancer Risk 1.40% Lifetime Breast Cancer Risk 4.80% Personal Breast Cancer No Personal Ovarian Cancer No Treatments None Family Cancers None LOCATION: [facility] BREAST COMPOSITION: Almost entirely fatty. FINDINGS: [...] Huddleston MD on 05/14/2022 at 12:49 Normal [facility] BNPon 03-07-2022 Natriuretic peptide B (Bld) [Mass/Vol] 115.0 pg/mL Normal <=900.0 [facility] Comment on above: Performed By: #### B THREAD WEAVER, CMP, HSTROPN #### [facility] [address] [place] [address] Dr. Carl Zuñiga CBC AUTO DIFFon 03-07-2022 BASO # 0.0 103/ul Normal 0.0-0.1 [facility] Comment on above: Performed By: #### B THREAD WEAVER, CMP, HSTROPN #### [facility] [address] [place] [address] Dr. Carl Zuñiga Basophils/100 WBC (Bld) 0.0 % Critically low 0.2-2.0 [facility] Comment on above: Performed By: #### B THREAD WEAVER, CMP, HSTROPN #### [facility] [address] [place] [address] Dr. Carl Zuñiga EO # 0.1 103/ul Normal 0.0-0.7 [facility] Comment on above: Performed By: #### B THREAD WEAVER, CMP, HSTROPN #### [facility] [address] [place] [address] Dr. Carl Zuñiga Eosinophils/100 WBC (Bld) 1.0 % Normal 0.9-7.0 [facility] Comment on above: Performed By: #### B THREAD WEAVER, CMP, HSTROPN #### [facility] [address] [place] [address] Dr. Carl Zuñiga Erythrocyte distribution width (RBC) [Ratio] 13.7 % Normal 11.0-15.0 [facility] Comment on above: Performed By: #### B THREAD WEAVER, CMP, HSTROPN #### [facility] [address] [place] [address] Dr. Carl Zuñiga Hematocrit (Bld) [Volume fraction] 40.8 % Normal 36.0-48.0 [facility] Comment on above: Performed By: #### B THREAD WEAVER, CMP, HSTROPN #### [facility] [address] [place] [address] Dr. Carl Zuñiga Hemoglobin (Bld) [Mass/Vol] 13.1 g/dL Normal 12.0-16.0 [facility] Comment on above: Performed By: #### B THREAD WEAVER, CMP, HSTROPN #### [facility] [address] [place] [address] Dr. Carl Zuñiga IG # 0.02 10e3/ul Normal 0.00-0.03 [facility] Comment on above: Performed By: #### B THREAD WEAVER, CMP, HSTROPN #### [facility] [address] [place] [address] Dr. Carl Zuñiga IG % 0.3 % Normal 0.0-0.5 [facility] Comment on above: Performed By: #### B THREAD WEAVER, CMP, HSTROPN #### [facility] [address] [place] [address] Dr. Carl Zuñiga LYMPH # 0.9 103/ul Critically low 1.2-3.8 [facility] Comment on above: Performed By: #### B THREAD WEAVER, CMP, HSTROPN #### [facility] [address] [place] [address] Dr. Carl Zuñiga Lymphocytes/100 WBC (Bld) 13.9 % Critically low 20.5-60.0 [facility] Comment on above: Performed By: #### B THREAD WEAVER, CMP, HSTROPN #### [facility] [address] [place] [address] Dr. Carl Zuñiga MANUAL DIFF REQ NO Normal [facility] Comment on above: Performed By: #### B THREAD WEAVER, CMP, HSTROPN #### [facility] [address] [place] [address] Dr. Carl Zuñiga MCH (RBC) [Entitic mass] 30.8 pg Normal 26.7-34.0 [facility] Comment on above: Performed By: #### B THREAD WEAVER, CMP, HSTROPN #### [facility] [address] [place] [address] Dr. Carl Zuñiga MCHC (RBC) [Mass/Vol] 32.1 g/dL Normal 29.9-35.2 [facility] Comment on above: Performed By: #### B THREAD WEAVER, CMP, HSTROPN #### [facility] [address] [address] [address] Carl Zuñiga MCV (RBC) [Entitic vol] 96.0 fL Normal 81.0-99.0 [facility] Comment on above: Performed By: #### B THREAD WEAVER, CMP, HSTROPN #### [facility] [address] [place] [address] Dr. Carl Zuñiga MONO # 0.6 103/ul Normal 0.3-0.8 [facility] Comment on above: Performed By: #### B THREAD WEAVER, CMP, HSTROPN #### [facility] [address] [place] [address] Dr. Carl Zuñiga Monocytes/100 WBC (Bld) 9.2 % Normal 1.7-12.0 [facility] Comment on above: Performed By: #### B THREAD WEAVER, CMP, HSTROPN #### [facility] [address] [place] [address] Dr. Carl Zuñiga NEUT # 5.1 103/ul Normal 1.4-6.5 [facility] Comment on above: Performed By: #### B THREAD WEAVER, CMP, HSTROPN #### [facility] [address] [place] [address] Dr. Carl Zuñiga Neutrophils/100 WBC (Bld) 75.6 % Critically high 43.0-75.0 [facility] Comment on above: Performed By: #### B THREAD WEAVER, CMP, HSTROPN #### [facility] [address] [place] [address] Dr. Carl Zuñiga Platelet mean volume (Bld) [Entitic vol] 8.5 fL Critically low 9.5-13.5 [facility] Comment on above: Performed By: #### B THREAD WEAVER, CMP, HSTROPN #### [facility] [address] [place] [address] Dr. Carl Zuñiga PLT 206 103/ul Normal 150-450 [facility] Comment on above: Performed By: #### B THREAD WEAVER, CMP, HSTROPN #### [facility] [address] [place] [address] Dr. Carl Zuñiga RBC 4.25 106/ul Normal 4.20-5.40 [facility] Comment on above: Performed By: #### B THREAD WEAVER, CMP, HSTROPN #### [facility] [address] [place] [address] Dr. Carl Zuñiga WBC 6.7 103/ul Normal 4.0-11.0 [facility] Comment on above: Performed By: #### B THREAD WEAVER, CMP, HSTROPN #### [facility] [address] [place] [address] Dr. Carl Zuñiga D-DIMERon 03-07-2022 D-DIMER <0.19 Normal <=0.59 [facility] Comment on above: Performed By: #### D DIM #### [facility] [address] [place] [address] Dr. Carl Zuñiga D-DIMER COMMENTS SEE BELOW Normal [facility] Comment on above: Result Comment: Incr eases [...] By: #### D DIM #### [facility] [address] [place] [address] Dr. Carl Zuñiga PROF 14(COMP METB)on 022 Albumin [Mass/Vol] 3.9 g/dL Normal 3.4-5.0 [facility] Comment on above: Performed By: #### B THREAD WEAVER, CMP, HSTROPN #### [facility] [address] [place] [address] Dr. Carl Zuñiga Albumin/Globulin [Mass ratio] 1.5 {ratio} Normal [facility] Comment on above: Performed By: #### B THREAD WEAVER, CMP, HSTROPN #### [facility] [address] [address] [address] Carl Zuñiga ALP [Catalytic activity/Vol] 96 U/L Normal 46-116 [facility] Comment on above: Performed By: #### B THREAD WEAVER, CMP, HSTROPN #### [facility] [address] [address] [address] Carl Zuñiga ALT [Catalytic activity/Vol] 38 U/L Normal 14-59 [facility] Comment on above: Performed By: #### B THREAD WEAVER, CMP, HSTROPN #### [facility] [address] [address] [address] Carl Zuñiga Anion gap [Moles/Vol] 9.8 mmol/L Normal [facility] Comment on above: Performed By: #### B THREAD WEAVER, CMP, HSTROPN #### [facility] [address] [place] [address] Dr. Carl Zuñiga AST [Catalytic activity/Vol] 16 U/L Normal 15-37 [facility] Comment on above: Performed By: #### B THREAD WEAVER, CMP, HSTROPN #### [facility] [address] [address] [address] Carl Zuñiga Bilirubin [Mass/Vol] 0.5 mg/dL Normal 0.2-1.0 [facility] Comment on above: Performed By: #### B THREAD WEAVER, CMP, HSTROPN #### [facility] [address] [address] [address] Carl Zuñiga Calcium [Mass/Vol] 9.2 mg/dL Normal 8.5-10.1 [facility] Comment on above: Performed By: #### B THREAD WEAVER, CMP, HSTROPN #### [facility] [address] [address] [address] Carl Zuñiga Chloride [Moles/Vol] 103 mmol/L Normal 98-107 [facility] Comment on above: Performed By: #### B THREAD WEAVER, CMP, HSTROPN #### [facility] [address] [address] [address] Carl Zuñiga CO2 [Moles/Vol] 29.1 mmol/L Normal 21.0-32.0 [facility] Comment on above: Performed By: #### B THREAD WEAVER, CMP, HSTROPN #### [facility] [address] [place] [address] Dr. Carl Zuñiga Creatinine [Mass/Vol] 0.92 mg/dL Normal 0.55-1.02 [facility] Comment on above: Performed By: #### B THREAD WEAVER, CMP, HSTROPN #### [facility] [address] [address] [address] Carl Zuñiga EGFR-AF SCOTTISH >60 Normal >=60 [facility] Comment on above: Performed By: #### B THREAD WEAVER, CMP, HSTROPN #### [facility] [address] [place] [address] Dr. Carl Zuñiga EGFR-NON AF SCOTTISH >60 Normal >=60 [facility] Comment on above: Performed By: #### B THREAD WEAVER, CMP, HSTROPN #### [facility] [address] [place] [address] Dr. Carl Zuñiga Globulin (S) [Mass/Vol] 2.6 g/dL Normal [facility] Comment on above: Performed By: #### B THREAD WEAVER, CMP, HSTROPN #### [facility] [address] [place] [address] Dr. Carl Zuñiga Glucose [Mass/Vol] 109 mg/dL Critically high 74-106 [facility] Comment on above: Performed By: #### B THREAD WEAVER, CMP, HSTROPN #### [facility] [address] [place] [address] Dr. Carl Zuñiga Potassium [Moles/Vol] 3.9 mmol/L Normal 3.5-5.1 [facility] Comment on above: Performed By: #### B THREAD WEAVER, CMP, HSTROPN #### [facility] [address] [place] [address] Dr. Carl Zuñiga Protein [Mass/Vol] 6.5 g/dL Normal 6.4-8.2 [facility] Comment on above: Performed By: #### B THREAD WEAVER, CMP, HSTROPN #### [facility] [address] [address] [address] Carl Zuñiga Sodium [Moles/Vol] 138 mmol/L Normal 136-145 [facility] Comment on above: Performed By: #### B THREAD WEAVER, CMP, HSTROPN #### [facility] [address] [address] [address] Carl Zuñiga Urea nitrogen [Mass/Vol] 14.0 mg/dL Normal 7.0-18.0 [facility] Comment on above: Performed By: #### B THREAD WEAVER, CMP, HSTROPN #### [facility] [address] [address] [address] Carl Zuñiga Urea nitrogen/Creatini ne [Mass ratio] 15.2 mg/mg Normal [facility] Comment on above: Performed By: #### B THREAD WEAVER, CMP, HSTROPN #### [facility] [address] [address] [address] Carl Zuñiga TROPONIN, HIGH SENSITIVITYon 03-07-2022 HSTROP 2.8 pg/mL Critically low 4.0-51.3 [facility] Comment on above: Result Comment: CUT- OFF POINTS HAVE BEEN ESTABLISHED BASED ON THE FOURTH UNIVERSAL DEFINITIONS OF MYOCARDIAL INFARCTION. THE UPPER REFERENCE LIMIT (URL) OF TROPONIN, DEFINED THE 99TH PERCENTILE OF cTnI DISTRIBUTION IN A REFERENCE POPULATION, HAS BEEN CONFIRMED THE DECISION THRESHOLD FOR DC DIAGNOSIS. Performed By: #### B THREAD WEAVER, CMP, HSTROPN #### [facility] [address] [place] [address] Dr. Carl Zuñiga XR CHEST 1 Von [...] by: DIANA BREAUX Date: 2022-03-07 10:[address] [facility] [address] CSPINE WO CONon CT CSPINE [...] by: MARQUES PATEL Date: 2021-07-10 02:[address] [facility] [address] HEAD WO CONon 07-10-2021 CT [...] acute intracranial abnormality. Electronically authenticated by: MARQUES PTAEL Date: 2021-07-10 02:44 Normal [facility] XR CHEST 1 Von 07-10-2021 XR [...] by: MARQUES PATEL Date: 2021-07-10 02:46 Normal [facility] XR PELVIS 1_2 VIEWSon 2020 XR [...] by: MARQUES PATEL Date: 2021-07-10 02:47 Normal [facility] Vital Signs Date Time Vital Sign Value Performing Clinician Carrol perez 08-03-2023 08:23-0500 Blood Pressure Location Pamela Benson [facility] Encounters Encounter Date Encounter Type Care Provider Facility Start: 10-06-2023 End: 10-06-2023 ambulatory [facility] Start: 09-23-2023 End: 09-23-2023 ambulatory [facility] Start: 08-26-2023 End: 08-26-2023 ambulatory [facility] Start: 08-24-2023 End: 08-25-2023 ambulatory Pamela MStacey Barcenase Facility:[facility] Start: 08-24-2023 End: 08-24-2023 Off-Site Pamela M. Swapnae [facility] Start: 08-04-2023 End: 08-05-2023 ambulatory Pamela MStacey Barcenase [place] [place]: 08-04-2023 End: 08-04-2023 Lab Drop off Pamela M. Swapnae [facility] Start: 08-03-2023 End: 08-04-2023 ambulatory Pamela M. Lue Facility:[facility] Start: 08-03-2023 End: 08-03-2023 Patient encounter procedure Pamela Benson [facility] Start: 07-27-2023 End: 07-27-2023 ambulatory ASHLEY ZACARIAS Not Available Start: 07-22-2023 ambulatory Pamela Benson Facility:[facility] Start: 07-06-2023 ambulatory Pamela Luglenn Facility:[facility] [...] Provider Fa cility 05-27-2022 SARS-CoV-2 (COVID-19 ) [id number] Pamela Benson [facility] 06-12-2021 SARS-CoV-2 (COVID-19 ) mRNA BNT-162b2 vax Pamela Lue [facility] 08-13-2020 SARS-CoV-2 (COVID-19 ) mRNA BNT-162b2 vax Pamela Lue [facility] Comment on above: Result Comment: 2023: [id number] 07-23-2020 SARS-CoV-2 (COVID-19 ) mRNA BNT-162b2 vax Pamela Lue [facility] Comment on above: Result Comment: 2023: [id number] Payers Date Payer Category Payer Medicare [id number] 2020 Medicaid [id number] 2020 Medicare [id number] 1955 Unknown [id number] 2.16.84 [id number] 1955 Unknown [id number] 1955 Unknown [id number]. [id number] 1955 Unknown [id number] 2.16.8 [id number] 1955 Unknown [id number] 2.16.8 [id number] 1955 Unknown [id number] 2.16.8 [id number] Social History Date Type Detail Facility Start: 08-03-2023 Tobacco smoking status Never s moked tobacco (finding) [facility] Sex Assigned At Female [facility] Functional Status Date Assessment Result Facility 08-03-2023 Functional Status N/A [facility] Clinical Notes 08-03-2023 to 10-06-2023 Note Date & Type Note Facility 10-06-2023 Note Patient here for 2 w [place] follow up SOB, atypical chest pain, and surgery clearance. She was started on lasix 20mg daily at last apt with Dr. Cates for moderately elevated right sided pressures per echo. Still needs clearance prior to D&C and LEEP procedure to be done with Dr. Crespo. Review of Systems HENT: Positive for hearing loss. Cardiovascular: Positive for chest pain (intermittent) and dyspnea on exertion (intermittent). All other systems reviewed and are negative. [facility] 10-06-2023 Note Cardiology Clinic No te Chief Complaint: preop risk stratification HPI: PMHx: Steve Waddell is a 68 y.o. female With no reported cardiac history who presents to cardiology clinic at the request of her [employer] doctor for perioperative restratification prior to D&C and LEEP procedure. Of note: Patient is deaf. 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 She does her best to communicate by lipreading. She is accompanied by her swing driver today, who assists in communication. Today, [...] right-sided pressures (51 mmHg) and diastolic dysfunction. --- 10/06/23 She is having vaginal bleeding daily and clotting. She is having palpitations at night. Feels like her heart is racing very fast. She continues to have shortness of breath with exertion when she is trying to walk the halls at her facility. Continued atypical CP sx's. Denies orthopnea, syncope. Cardiology ROS: HENT: Positive for hearing loss. Cardiovascular: Positive for chest pain (intermittent) and dyspnea on exertion (intermittent). All other systems reviewed and are negative. Past Medical History She has a past medical history of Diabetes mellitus ([facility] [place]). Surgical History She has no past surgical [...] Dispense Refill acarbose (Precose) 100 mg tablet Take 100 mg by mouth 2 times daily. aspirin 81 mg EC tablet Take 81 mg by mouth in the morning. atorvastatin (Lipitor) 40 mg tablet Take 40 mg by mouth at bedtime. baclofen (Lioresal) 20 mg tablet cholecalciferol (Vitamin D-3) 125 MCG (5000 UT) capsule cyanocobalamin (Vitamin B-12) 1,000 mcg tablet famotidine (Pepcid) 40 mg tablet Refills(s) 0 ferrous sulfate 325 (65 Fe) MG tablet Refills(s) 0 furosemide (Lasix) 20 mg tablet Take 1 tablet (20 mg) by mouth in the morning. 30 tablet 11 lumateperone (Caplyta) 42 mg capsule Refills(s) 0 metFORMIN (Glucophage) 1,000 mg tablet Take 1,000 mg by mouth with breakfast and with evening meal. montelukast (Singulair) 10 mg tablet Refills(s) 0 ranolazine (Ranexa) 500 mg 12 hr tablet Take 500 mg by mouth 2 times daily. sacubitril-valsartan (Entresto) 24-26 mg tablet Take 1 tablet by mouth 2 times daily. topiramate (Topamax) 25 mg tablet traZODone (Desyrel) 50 mg tablet dulaglutide (Trulicity) 0.75 mg/0.5 mL pen injector [DISCONTINUED] acetaminophen 500 mg capsule Refills(s) 0 [DISCONTINUED] perphenazine 4 mg tablet No current facility-administered medications on file prior to visit. Allergies Patient has no known allergies. Physical Exam VITAL SIGNS: BP 106/60 (BP Location: Left arm, Patient Position: Sitting) Pulse 85 Ht 1.626 m (5' 4 ) Wt 89.8 kg (198 lb) SpO2 100% BMI 33.99 kg/m??? Constitutional: Well developed, Well nourished, No [...] Psychiatric: Affect normal, Judgment normal, Mood normal. LABS: 09/30/2023: Cr 1.71, BUN 16, K 4.6, Na 137, eGFR 30 09/23/2023: Hgb 9, plt 395 Cr 1.43, BUN 12, K 4.2, Na 138, eGFR 36, AST 16, ALT 25 08/25/2023 Hgb 10.7, plat 385 Cr 1.09, BUN 18, K 4.4, Na 142, eGFR 50 05/02/2023 Cr 0.94, BUN 15, eGFR 59, K 4.8, Na 141 TESTING: ECHO 09/09/2023 NM stress test 09/09/2023 N (more content not included)... [facility] 09-23-2023 Note Cardiology Clinic No te Chief Complaint: preop risk stratification HPI: Steve Waddell is a 68 y.o. female With no reported cardiac history who presents to cardiology clinic at the request of her [employer] doctor for perioperative restratification prior to D&C and LEEP procedure. Of note: Patient is deaf. 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 She does her best to communicate by lipreading. She is accompanied by her swing driver today, who assists in communication. Today, [...] a past medical history of Diabetes mellitus (CMS/HCC). Surgical History She has no past surgical [...] -Further recommendations regardi (more content not included)... [facility] 09-23-2023 Note Concerns: Not much s tates some swelling in legs and some back back, chest pain seems to be getting better [facility] 08-26-2023 Note Cardiology Clinic No te Chief Complaint: preop risk stratification HPI: Steve Waddell is a 68 y.o. female With no reported cardiac history who presents to cardiology clinic at the request of her [employer] doctor for perioperative restratification prior to D&C and LEEP procedure. Of note: Patient is deaf. 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 She does her best to communicate by lipreading. She is accompanied by her swing driver today, who assists in communication. As per patient and her swing driver, patient denies any cardiac history. She denies any prior history of heart failure, CAD, PCI, or DC. She does report occasional chest pain. Chest [...] a past medical history of Diabetes mellitus ([facility] [place]). Surgical History She has no past surgical [...] HLD -[employer] med (more content not included)... [facility] 08-26-2023 Note New patient here to establish care. Ref from Dr. Crespo for surgery clearance prior to D&C and LEEP procedure. This is scheduled for 08/31 at [facility] per patient. She had labs and EKG last week. Says she gets intermittent chest pain and SOB w/ exertion. Review of Systems HENT: Positive for hearing loss. Cardiovascular: Positive for chest pain (intermittent) and dyspnea on exertion (intermittent). All other systems reviewed and are negative. [facility] 08-04-2023 Evaluation + Plan note Diagnostic Tests PendingUrine Cytology ([facility]) 08/04/23 [facility] 08-03-2023 Hospital Discharge instructions Patient Education 08/03/2023 09:41:01 Ureteroscopy Ureteroscopy [...] including vitamins, herbs, eye drops, creams, and [id number]-[id number] medicines. Any problems you or family members [...] health care provider tells you to. Taking qiqk-myd-kcwhbik medicines, vitamins, herbs, and supplements. General instructions [...] provider. Document Revised: 10/22/2022 Document Reviewed: 10/22/2022 [employer] Patient Education 2022 [employer] 08/03/2023 09:37:21 Hematuria, Adult Hematuria, Adult Hematuria [...] Follow these instructions at home: Medicines Take qtqx-sur-suomncc and prescription medicines only as told by [...] or the blood stops without treatment. Take jzwj-ecx-ivhkarm and prescription medicines only as told by your health care provider. Drink enough fluid to keep your urine pale yellow. This information is not intended to replace advice given to you by your health care provider. Make sure you discuss any questions you have with your health care provider. Document Revised: 02/25/2021 Document Reviewed: 02/25/2021 [employer] Patient Education 2022 [employer] Follow Up Care 07/13/2023 11:34:42 With:Marcelino GALLARDO, Pamela Fam URL, URO Address: When: Unknown Comments:Schedule Cysto, Rt ureteroscopy, possible biopsy, and Rt stent placement [facility] Evaluation + Plan note No data available for this section [facility] Hospital Discharge instructions No data available for this section [facility] Progress note No data available for this section [facility] Summary Purpose Family History No Family [...] and content) DATE CREATED AUTHOR [facility]/05/2022 [facility] DATE CREATED AUTHOR AUTHOR'S ORGANIZ ATION 07/28/2023 [facility] DATE CREATED AUTHOR AUTHOR'S ORGANIZ ATION 08/26/2023 [facility] DATE CREATED AUTHOR AUTHOR'S ORGANIZ ATION 10/11/2023 [facility] Patient Care team informatio n (unrecognized section and content) Personnel Name: YAYA LANGLEY JR, DO Address: Address: [address] [place] [id number] Personnel Name: YAYA LANGLEY JR, DO Address: Address: [address] [place] [phone] Personnel Name: YAYA LANGLEY JR, DO Address: Address: [address] [place] [phone] FOR RECORDS PERTAINING TO PATIENTS WHO ARE [...] BE BASED ON THE PRIMARY CLINICAL RECORDS. [employer] provides no warranty or guarantee of the accuracy or completeness of information in this document.
[2023-10-14 08:41] LABS: Anion Gap 15.1; BUN Creatinine Ratio 7.1; Calcium 8.9 mg/dL (8.5-10.1); Chloride 104 mmol/L (98-107); Estimated GFR (African America 45 (>=60); Estimated GFR (Non-African Ame 37 (>=60); Glucose 143 mg/dL (74-106); Potassium 4.1 mmol/L (3.5-5.1); Sodium 138 mmol/L (136-145)
== END 2023-10-14 03:06 | disposition home or self-care (01) ==
LOC: LAB 03:05
PROVIDERS: Visit Provider Nurse Practitioner Family
DX: R94.4 Abnormal results of kidney function studies (principal); I10 Essential (primary) hypertension
CPT/HCPCS: 36415; 80048

== ENCOUNTER 2023-11-04 00:54 | Outpatient (REF) | payer MEDICARE, MEDICAID, SELFPAY ==
--- OUTSIDE RECORDS SUMMARY | 2023-11-04 01:01 | XMS_ITS | CCD ---
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] Onset: 4 Episodic [...] Range Facility Office Visiton 10-06-2023 Follow-up visit [id number] Kelby Waddell 1955 Date Provider Department Center 10/06/2023 REBECCA VASQUEZ CELESTE Barreto Family History Problem Relation Age of Onset Coronary artery disease Mother Cancer Father Diabetes Father Family Status - Relation Status Age at Mother Father Level of Service:75677 OR OFFICE/OUTPATIENT ESTABLISHED MOD MDM 30 MIN Normal [facility] Office Visiton 09-23-2023 Follow-up visit [id number] Kelby Waddell 1955 Date Provider Department Center 09/23/2023 GUERDA RYDER [facility] Family History Problem Relation Age of Onset Coronary artery disease Mother Cancer Father Diabetes Father Family Status - Relation Status Age at Mother Father Level of Service:76158 OR OFFICE/OUTPATIENT ESTABLISHED LOW MDM 20 MIN Reason for Visit and Comments: Follow-up [791633] - Concerns: Not much states some swelling in legs and some back back, chest pain seems to be getting better Normal [facility] Office Visiton 08-26-2023 Follow-up visit [id number] Kelby Waddell 1955 F Date Provider Department Center 08/26/2023 GUERDA RYDER [facility] Family History Problem Relation Age of Onset Coronary artery disease Mother Cancer Father Diabetes Father Family Status - Relation Status Age at Mother Father Level of Service:42779 OR OFFICE/OUTPATIENT NEW MODERATE MDM 45 MINUTES Normal [facility] Consent for Procedure/Surger yon 08-24-2023 Consent for Procedure/Surgery [id number] Normal [facility] Consent for Procedure/Surger yon 08-09-2023 Consent for Procedure/Surgery [id number] Normal [facility] Urine Cytology ([facility])on 0 08-09-2023 Urine Cytology Diagnosis Info Invalid Interpretation Code [facility] Comment on above: Result Comment: A:Ur ine,Urine:Voided Interpretation - MicroScopic Description - Adequacy - Gross Description Site ID:A color Dark Yellow fixative Alcohol Specimen designated Urine received in alcohol preservative and labeled with the patient?s name, consists of 110ml slightly cloudy dark yellow fluid. Electronically signed by : on: 08/09/2023 11:46:02 Performed By: #### 1 [id number] #### [facility] Laboratory [address] [place] [address] Physician Referralon 024 Physician Referral [id number] Normal [facility] Screenson 08-04-2023 Screens [id number] Normal [facility] Urine Cytology ([facility])on 0 08-04-2023 UC Method of Extraction Voided Normal [facility] Comment on above: Performed By: #### 1 [id number] #### [facility] Laboratory [address] [id number] Number of Jars 1 Invalid Interpretation Code [facility] Comment on above: Performed By: #### 1 [id number] #### [facility] Laboratory [address] [place] [address] UC Specimen Urine Normal [facility] Comment on above: Performed By: #### 1 [id number] #### [facility] Laboratory [address] [place] [address] Type of Service Technical Only Normal [facility] Comment on above: Performed By: #### 1 [id number] #### [facility] Laboratory [address] [place] [address] Ambulatory Visit Summaryon 0 08-03-2023 Ambulatory Visit [...] the caus (more content not included)... Normal [facility] Assisted Recordson 08-03 Assisted Records [id number] Normal [facility] Patient Educationon 08-03-19 Patient Education Urology Ureteroscopy [...] including vitamins, herbs, eye drops, creams, and qmnu-asy-iijrpjg medicines. ? Any problems you or family [...] care provider tells you to. ? Taking tgue-fgu-ejudldo medicines, vitamins, herbs, and supplements. General instructions [...] be monitor (more content not included)... Normal [facility] Urology Office/Clinic Noteon 08-03-2023 Urology Office/Clinic Note Chief Complaint Ladle Cleaner for abnormalitties in urinary system HPI Staff Evaluation requested by Dr Ashley Crespo due to incidental findings on CT 06/06/23. *possible abnormality of urinary system. Ordered due to rectal bleeding. Pt is a new pt. Never before seen in our office. Pt is hard of hearing she can read lips and she has an nurses aid from her home ([facility]) CT abdomen pelvis wo/w con done @ [facility] on 06/06/23 She tried giving a urine [...] age Assessment/Plan 68 yo female resident of [facility] here for new patient evaluation of right hydroureteronephrosis. Pt is hard of hearing, can read lips and she has a nurses aid from her home with her. Mother had lung cancer. Denies any other urologic surgeries. 1. Hydroureteronephrosis (N13.30: Unspecified hydronephrosis) CT AP wo/w PO con @ [facility] on 06/06/23 - mod Rt-sided collecting system [...] cysto, if patient unable to submit from LONG TERM prior 3. Former smoker (Z87.891: Personal history of nicotine dependence) Smoked for a very little amount of time. 4. Aspirin long-term use (Z79.82: snf (curre (more content not included)... Normal [facility] Comment on above: Result Comment: Elec tronically [...] RIVKA FRAZIER Date: 2022-07-05 15:47 Normal [facility] MAMM SCREEN 3D DERRICK CADon 05-14-2022 MG MAMM SCREEN 3D DERRICK CAD Patient: STEVE WADDELL Exam Date: 05/14/2022 : 1955 Gender:F Ordering : DR YAYA LANGLEY D.O. Admission #: [id number] Family : Order #: [id number] CLICK HERE TO VIEW EXAM RADIOLOGY REPORT PROCEDURE: MAMMOGRAM SCREENING 3D BILATERAL CAD COMPARISON: MAMM DERRICK DIAG W CAD, 04/23/2019. MAMM SCREEN 3D DERRICK CAD, 05/08/2021. INDICATIONS: Screening mammography Calculator Name NCI Breast Cancer Risk Assessment Tool 5 Year Breast Cancer Risk 1.40% Lifetime Breast Cancer Risk 4.80% Personal Breast Cancer No Personal Ovarian Cancer No Treatments None Family Cancers None LOCATION: [facility] BREAST COMPOSITION: Almost entirely fatty. FINDINGS: [...] Huddleston MD on 05/14/2022 at 12:49 Normal [facility] BNPon 03-07-2022 Natriuretic peptide B (Bld) [Mass/Vol] 115.0 pg/mL Normal <=900.0 [facility] Comment on above: Performed By: #### B REVENUE AGENT, CMP, HSTROPN #### [facility] [address] [place] [address] Dr. Carl Zuñiga CBC AUTO DIFFon 03-07-2022 BASO # 0.0 103/ul Normal 0.0-0.1 [facility] Comment on above: Performed By: #### B REVENUE AGENT, CMP, HSTROPN #### [facility] [address] [place] [address] Dr. Carl Zuñiga Basophils/100 WBC (Bld) 0.0 % Critically low 0.2-2.0 [facility] Comment on above: Performed By: #### B REVENUE AGENT, CMP, HSTROPN #### [facility] [address] [place] [address] Dr. Carl Zuñiga EO # 0.1 103/ul Normal 0.0-0.7 [facility] Comment on above: Performed By: #### B REVENUE AGENT, CMP, HSTROPN #### [facility] [address] [place] [address] Dr. Carl Zuñiga Eosinophils/100 WBC (Bld) 1.0 % Normal 0.9-7.0 [facility] Comment on above: Performed By: #### B REVENUE AGENT, CMP, HSTROPN #### [facility] [address] [place] [address] Dr. Carl Zuñiga Erythrocyte distribution width (RBC) [Ratio] 13.7 % Normal 11.0-15.0 [facility] Comment on above: Performed By: #### B REVENUE AGENT, CMP, HSTROPN #### [facility] [address] [place] [address] Dr. Carl Zuñiga Hematocrit (Bld) [Volume fraction] 40.8 % Normal 36.0-48.0 [facility] Comment on above: Performed By: #### B REVENUE AGENT, CMP, HSTROPN #### [facility] [address] [place] [address] Dr. Carl Zuñiga Hemoglobin (Bld) [Mass/Vol] 13.1 g/dL Normal 12.0-16.0 [facility] Comment on above: Performed By: #### B REVENUE AGENT, CMP, HSTROPN #### [facility] [address] [place] [address] Dr. Carl Zuñiga IG # 0.02 10e3/ul Normal 0.00-0.03 [facility] Comment on above: Performed By: #### B REVENUE AGENT, CMP, HSTROPN #### [facility] [address] [place] [address] Dr. Carl Zuñiga IG % 0.3 % Normal 0.0-0.5 [facility] Comment on above: Performed By: #### B REVENUE AGENT, CMP, HSTROPN #### [facility] [address] [place] [address] Dr. Carl Zuñiga LYMPH # 0.9 103/ul Critically low 1.2-3.8 [facility] Comment on above: Performed By: #### B REVENUE AGENT, CMP, HSTROPN #### [facility] [address] [place] [address] Dr. Carl Zuñiga Lymphocytes/100 WBC (Bld) 13.9 % Critically low 20.5-60.0 [facility] Comment on above: Performed By: #### B REVENUE AGENT, CMP, HSTROPN #### [facility] [address] [place] [address] Dr. Carl Zuñiga MANUAL DIFF REQ NO Normal [facility] Comment on above: Performed By: #### B REVENUE AGENT, CMP, HSTROPN #### [facility] [address] [place] [address] Dr. Carl Zuñiga MCH (RBC) [Entitic mass] 30.8 pg Normal 26.7-34.0 [facility] Comment on above: Performed By: #### B REVENUE AGENT, CMP, HSTROPN #### [facility] [address] [place] [address] Dr. Carl Zuñiga MCHC (RBC) [Mass/Vol] 32.1 g/dL Normal 29.9-35.2 [facility] Comment on above: Performed By: #### B REVENUE AGENT, CMP, HSTROPN #### [facility] [address] [address] [address] Carl Zuñiga MCV (RBC) [Entitic vol] 96.0 fL Normal 81.0-99.0 [facility] Comment on above: Performed By: #### B REVENUE AGENT, CMP, HSTROPN #### [facility] [address] [place] [address] Dr. Carl Zuñiga MONO # 0.6 103/ul Normal 0.3-0.8 [facility] Comment on above: Performed By: #### B REVENUE AGENT, CMP, HSTROPN #### [facility] [address] [place] [address] Dr. Carl Zuñiga Monocytes/100 WBC (Bld) 9.2 % Normal 1.7-12.0 [facility] Comment on above: Performed By: #### B REVENUE AGENT, CMP, HSTROPN #### [facility] [address] [place] [address] Dr. Carl Zuñiga NEUT # 5.1 103/ul Normal 1.4-6.5 [facility] Comment on above: Performed By: #### B REVENUE AGENT, CMP, HSTROPN #### [facility] [address] [place] [address] Dr. Carl Zuñiga Neutrophils/100 WBC (Bld) 75.6 % Critically high 43.0-75.0 [facility] Comment on above: Performed By: #### B REVENUE AGENT, CMP, HSTROPN #### [facility] [address] [place] [address] Dr. Carl Zuñiga Platelet mean volume (Bld) [Entitic vol] 8.5 fL Critically low 9.5-13.5 [facility] Comment on above: Performed By: #### B REVENUE AGENT, CMP, HSTROPN #### [facility] [address] [place] [address] Dr. Carl Zuñiga PLT 206 103/ul Normal 150-450 [facility] Comment on above: Performed By: #### B REVENUE AGENT, CMP, HSTROPN #### [facility] [address] [place] [address] Dr. Carl Zuñiga RBC 4.25 106/ul Normal 4.20-5.40 [facility] Comment on above: Performed By: #### B REVENUE AGENT, CMP, HSTROPN #### [facility] [address] [place] [address] Dr. Carl Zuñiga WBC 6.7 103/ul Normal 4.0-11.0 [facility] Comment on above: Performed By: #### B REVENUE AGENT, CMP, HSTROPN #### [facility] [address] [place] [address] Dr. Carl Zuñiga D-DIMERon 03-07-2022 D-DIMER <0.19 Normal <=0.59 [facility] Comment on above: Performed By: #### D DIM #### [facility] [address] [place] [address] Dr. Carl Zuñiga D-DIMER COMMENTS SEE BELOW Normal [facility] Comment on above: Result Comment: Incr eases [...] hospitalization. Performed By: #### D DIM #### [facility] [address] [place] [address] Dr. Carl Zuñiga PROF 14(COMP METB)on 022 Albumin [Mass/Vol] 3.9 g/dL Normal 3.4-5.0 [facility] Comment on above: Performed By: #### B REVENUE AGENT, CMP, HSTROPN #### [facility] [address] [place] [address] Dr. Carl Zuñiga Albumin/Globulin [Mass ratio] 1.5 {ratio} Normal [facility] Comment on above: Performed By: #### B REVENUE AGENT, CMP, HSTROPN #### [facility] [address] [address] [address] Carl Zuñiga ALP [Catalytic activity/Vol] 96 U/L Normal 46-116 [facility] Comment on above: Performed By: #### B REVENUE AGENT, CMP, HSTROPN #### [facility] [address] [address] [address] Carl Zuñiga ALT [Catalytic activity/Vol] 38 U/L Normal 14-59 [facility] Comment on above: Performed By: #### B REVENUE AGENT, CMP, HSTROPN #### [facility] [address] [address] [address] Carl Zuñiga Anion gap [Moles/Vol] 9.8 mmol/L Normal [facility] Comment on above: Performed By: #### B REVENUE AGENT, CMP, HSTROPN #### [facility] [address] [place] [address] Dr. Carl Zuñiga AST [Catalytic activity/Vol] 16 U/L Normal 15-37 [facility] Comment on above: Performed By: #### B REVENUE AGENT, CMP, HSTROPN #### [facility] [address] [address] [address] Carl Zuñiga Bilirubin [Mass/Vol] 0.5 mg/dL Normal 0.2-1.0 [facility] Comment on above: Performed By: #### B REVENUE AGENT, CMP, HSTROPN #### [facility] [address] [address] [address] Carl Zuñiga Calcium [Mass/Vol] 9.2 mg/dL Normal 8.5-10.1 [facility] Comment on above: Performed By: #### B REVENUE AGENT, CMP, HSTROPN #### [facility] [address] [address] [address] Carl Zuñiga Chloride [Moles/Vol] 103 mmol/L Normal 98-107 [facility] Comment on above: Performed By: #### B REVENUE AGENT, CMP, HSTROPN #### [facility] [address] [address] [address] Carl Zuñiga CO2 [Moles/Vol] 29.1 mmol/L Normal 21.0-32.0 [facility] Comment on above: Performed By: #### B REVENUE AGENT, CMP, HSTROPN #### [facility] [address] [place] [address] Dr. Carl Zuñiga Creatinine [Mass/Vol] 0.92 mg/dL Normal 0.55-1.02 [facility] Comment on above: Performed By: #### B REVENUE AGENT, CMP, HSTROPN #### [facility] [address] [address] [address] Carl Zuñiga EGFR-AF EMIRATI >60 Normal >=60 [facility] Comment on above: Performed By: #### B REVENUE AGENT, CMP, HSTROPN #### [facility] [address] [place] [address] Dr. Carl Zuñiga EGFR-NON AF EMIRATI >60 Normal >=60 [facility] Comment on above: Performed By: #### B REVENUE AGENT, CMP, HSTROPN #### [facility] [address] [place] [address] Dr. Carl Zuñiga Globulin (S) [Mass/Vol] 2.6 g/dL Normal [facility] Comment on above: Performed By: #### B REVENUE AGENT, CMP, HSTROPN #### [facility] [address] [place] [address] Dr. Carl Zuñiga Glucose [Mass/Vol] 109 mg/dL Critically high 74-106 [facility] Comment on above: Performed By: #### B REVENUE AGENT, CMP, HSTROPN #### [facility] [address] [place] [address] Dr. Carl Zuñiga Potassium [Moles/Vol] 3.9 mmol/L Normal 3.5-5.1 [facility] Comment on above: Performed By: #### B REVENUE AGENT, CMP, HSTROPN #### [facility] [address] [place] [address] Dr. Carl Zuñiga Protein [Mass/Vol] 6.5 g/dL Normal 6.4-8.2 [facility] Comment on above: Performed By: #### B REVENUE AGENT, CMP, HSTROPN #### [facility] [address] [address] [address] Carl Zuñiga Sodium [Moles/Vol] 138 mmol/L Normal 136-145 [facility] Comment on above: Performed By: #### B REVENUE AGENT, CMP, HSTROPN #### [facility] [address] [address] [address] Carl Zuñiga Urea nitrogen [Mass/Vol] 14.0 mg/dL Normal 7.0-18.0 [facility] Comment on above: Performed By: #### B REVENUE AGENT, CMP, HSTROPN #### [facility] [address] [address] [address] Carl Zuñiga Urea nitrogen/Creatini ne [Mass ratio] 15.2 mg/mg Normal [facility] Comment on above: Performed By: #### B REVENUE AGENT, CMP, HSTROPN #### [facility] [address] [address] [address] Carl Zuñiga TROPONIN, HIGH SENSITIVITYon 03-07-2022 HSTROP 2.8 pg/mL Critically low 4.0-51.3 [facility] Comment on above: Result Comment: CUT- OFF POINTS HAVE BEEN ESTABLISHED BASED ON THE FOURTH UNIVERSAL DEFINITIONS OF MYOCARDIAL INFARCTION. THE UPPER REFERENCE LIMIT (URL) OF TROPONIN, DEFINED THE 99TH PERCENTILE OF cTnI DISTRIBUTION IN A REFERENCE POPULATION, HAS BEEN CONFIRMED THE DECISION THRESHOLD FOR [place] DIAGNOSIS. Performed By: #### B REVENUE AGENT, CMP, HSTROPN #### [facility] [address] [place] [address] Dr. Carl Zuñiga XR CHEST 1 Von [...] by: DIANA BREAUX Date: 2022-03-07 10:05 Normal [facility] CT CSPINE WO CONon CT CSPINE [...] by: MARQUES PATEL Date: 2021-07-10 02:49 Normal [facility] CT HEAD WO CONon 07-10-2021 CT [...] MARQUES PATEL Date: 2021-07-10 02:44 Normal [facility] XR CHEST 1 Von 07-10-2021 XR [...] by: MARQUES PATEL Date: 2021-07-10 02:46 Normal [facility] XR PELVIS 1_2 VIEWSon 2020 XR [...] by: MARQUES PATEL Date: 2021-07-10 02:47 Normal [facility] Vital Signs Date Time Vital Sign Value Performing Clinician Carrol perez 08-03-2023 08:23-0500 Blood Pressure Location Pamela Benson [facility] Encounters Encounter Date Encounter Type Care Provider Facility Start: 10-06-2023 End: 10-06-2023 ambulatory [facility] Start: 09-23-2023 End: 09-23-2023 ambulatory [facility] Start: 08-26-2023 End: 08-26-2023 ambulatory [facility] Start: 08-24-2023 End: 08-25-2023 ambulatory Pamela MStacey Barcenase Facility:[facility] Start: 08-24-2023 End: 08-24-2023 Off-Site Pamela M. Swapnae [facility] Start: 08-04-2023 End: 08-05-2023 ambulatory Pamela MStacey Barcenase Facility:[facility] Start: 08-04-2023 End: 08-04-2023 Lab Drop off Pamela M. Swapnae [facility] Start: 08-03-2023 End: 08-04-2023 ambulatory Pamela M. Lue Facility:[facility] Start: 08-03-2023 End: 08-03-2023 Patient encounter procedure Pamela Benson [facility] Start: 07-27-2023 End: 07-27-2023 ambulatory ASHLEY ZACARIAS [...] Provider Fa cility 05-27-2022 SARS-CoV-2 (COVID-19 ) [id number] Pamela Benson [facility] 06-12-2021 SARS-CoV-2 (COVID-19 ) mRNA BNT-162b2 vax Pamela Lue [facility] 08-13-2020 SARS-CoV-2 (COVID-19 ) mRNA BNT-162b2 vax Pamela Lue [facility] Comment on above: Result Comment: 2023: [id number] 07-23-2020 SARS-CoV-2 (COVID-19 ) mRNA BNT-162b2 vax Pamela Lue [facility] Comment on above: Result Comment: 2023: [id number] Payers Date Payer Category Payer Medicare [id number] 2020 Medicaid [id number] 2020 Medicare [id number] 1955 Unknown [id number] 2.16.84 [id number] 1955 Unknown [id number] 1955 Unknown [id number]. [id number] 1955 Unknown [id number] 2.16.8 [id number] 1955 Unknown [id number] 2.16.8 [id number] 1955 Unknown [id number] 2.16.8 [id number] Social History Date Type Detail Facility Start: 08-03-2023 Tobacco smoking status Never s moked tobacco (finding) [facility] Sex Assigned At Female [facility] Functional Status Date Assessment Result Facility 08-03-2023 Functional Status N/A [facility] Clinical Notes 08-03-2023 to 10-06-2023 Note Date & Type Note Facility 10-06-2023 Note Patient here for 2 w [place] follow up SOB, atypical chest pain, and [...] All other systems reviewed and are negative. [facility] 10-06-2023 Note Cardiology Clinic No te Chief Complaint: preop risk stratification HPI: PMHx: Steve Waddell is a 68 y.o. 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 Of note: Patient is deaf. 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 She does her best to communicate by lipreading. She is accompanied by her otr tanker truck driver today, who assists in communication. Today, [...] a past medical history of Diabetes mellitus ([facility]). Surgical History She has no past surgical [...] test 09/09/2023 N (more content not included)... [facility] 09-23-2023 Note Cardiology Clinic No te Chief Complaint: preop risk stratification HPI: Steve Waddell is a 68 y.o. 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 Of note: Patient is deaf. 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 She does her best to communicate by lipreading. She is accompanied by her otr tanker truck driver today, who assists in communication. Today, [...] -Further recommendations regardi (more content not included)... [facility] 09-23-2023 Note Concerns: Not much s tates some swelling in legs and some back back, chest pain seems to be getting better [facility] 08-26-2023 Note Cardiology Clinic No te Chief Complaint: preop risk stratification HPI: Steve Waddell is a 68 y.o. 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 Of note: Patient is deaf. 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 She does her best to communicate by lipreading. She is accompanied by her otr tanker truck driver today, who assists in communication. As per patient and her otr tanker truck driver, patient denies any cardiac history. She denies any prior history of heart failure, CAD, PCI, or [place]. She does report occasional chest pain. Chest [...] a past medical history of Diabetes mellitus ([facility]). Surgical History She has no past surgical [...] HLD -Optimize med (more content not included)... [facility] 08-26-2023 Note New patient here to establish care. Ref from Dr. Crespo for surgery clearance prior to D&C and LEEP procedure. This is scheduled for 08/31 at [facility] per patient. She had labs and EKG last week. Says she gets intermittent chest pain and SOB w/ exertion. Review of Systems HENT: Positive for hearing loss. Cardiovascular: Positive for chest pain (intermittent) and dyspnea on exertion (intermittent). All other systems reviewed and are negative. [facility] 08-04-2023 Evaluation + Plan note Diagnostic Tests [facility]) 08/04/23 [facility] 08-03-2023 Hospital Discharge instructions Patient Education [...] including vitamins, herbs, eye drops, creams, and nzry-emm-gnavnrh medicines. Any problems you or family members [...] health care provider tells you to. Taking mmtd-hyh-hsvwjxc medicines, vitamins, herbs, and supplements. General instructions [...] provider. Document Revised: 10/22/2022 Document Reviewed: 10/22/2022 [employer] Patient Education 2022 [employer] 08/03/2023 09:37:21 Hematuria, Adult Hematuria, Adult [...] Follow these instructions at home: Medicines Take vboy-bck-gcdnywd and prescription medicines only as told by [...] or the blood stops without treatment. Take nlrt-cts-kcpazck and prescription medicines only as told by your health care provider. Drink enough fluid to keep your urine pale yellow. This information is not intended to replace advice given to you by your health care provider. Make sure you discuss any questions you have with your health care provider. Document Revised: 02/25/2021 Document Reviewed: 02/25/2021 [employer] Patient Education 2022 [employer]. Follow Up Care 07/13/2023 11:34:42 With:Marcelino GALLARDO, Pamela Fam URL, URO Address: When: Unknown Comments:Schedule Cysto, Rt ureteroscopy, possible biopsy, and Rt stent placement [facility] Evaluation + Plan note No data available for this section [facility] Hospital Discharge instructions No data available for this section [facility] Progress note No data available for this section [facility] Summary Purpose Family History No Family History [...] and content) DATE CREATED AUTHOR 07/05/2022 [facility] DATE CREATED AUTHOR AUTHOR'S ORGANIZ ATION 07/28/2023 [facility] DATE CREATED AUTHOR AUTHOR'S ORGANIZ ATION 08/26/2023 [facility] DATE CREATED AUTHOR AUTHOR'S ORGANIZ ATION 10/11/2023 [facility] Patient Care team informatio n (unrecognized section and content) Personnel Name: YAYA LANGLEY JR, DO Address: Address: [address] [place] [id number] Personnel Name: YAYA LANGLEY JR, DO Address: Address: [address] [place] [id number] Personnel Name: YAYA LANGLEY JR, DO Address: Address: [address] [place] [id number] FOR RECORDS PERTAINING TO PATIENTS WHO ARE [...] BE BASED ON THE PRIMARY CLINICAL RECORDS. [employer] provides no warranty or guarantee of the accuracy or completeness of information in this document.
[2023-11-04 08:15] LABS: Estimated Average Glucose 74 mg/dL; Glycohemoglobin A1C 4.2 % (4.5-6.2)
[2023-11-04 08:42] LABS: Alanine Aminotransferase 21 U/L (14-59); Albumin Globulin Ratio 1.1; Albumin Level 3.4 g/dL (3.4-5.0); Alkaline Phosphatase 103 U/L (46-116); Anion Gap 17.6; Aspartate Amino Transferase 16 U/L (15-37); BUN Creatinine Ratio 10.5; Bilirubin Direct 0.1 mg/dL (0.0-0.2); Bilirubin Total 0.3 mg/dL (0.2-1.0); Calcium 9.5 mg/dL (8.5-10.1); Chloride 101 mmol/L (98-107); Chol HDL Ratio 1.7; Cholesterol 107 mg/dL (<=200); Estimated GFR (African America 52 (>=60); Estimated GFR (Non-African Ame 43 (>=60); Globulin 3.2 g/dL; Glucose 116 mg/dL (74-106); HDL Cholesterol 62 mg/dL (40-60); Potassium 4.6 mmol/L (3.5-5.1); Sodium 137 mmol/L (136-145); Total Protein 6.6 g/dL (6.4-8.2); Triglycerides 104 mg/dL (<=150); VLDL CHOLESTEROL 20.8 mg/dL
== END 2023-11-04 00:55 | disposition home or self-care (01) ==
LOC: LAB 00:54
PROVIDERS: Visit Provider Internal Medicine
DX: Z01.812 Encounter for preprocedural laboratory examination (principal); R87.613 High grade squamous intraepithelial lesion on cytologic smear of cervix (HGSIL); R93.89 Abnormal findings on diagnostic imaging of other specified body structures; I10 Essential (primary) hypertension; E11.9 Type 2 diabetes mellitus without complications; J44.9 Chronic obstructive pulmonary disease, unspecified; Z79.01 Long term (current) use of anticoagulants; K76.9 Liver disease, unspecified; R06.02 Shortness of breath; R06.09 Other forms of dyspnea
CPT/HCPCS: 36415; 80048; 80061; 80076; 83036; 84443; 85025

== ENCOUNTER 2023-11-04 09:45 | Outpatient (OUT) | payer MEDICARE, MEDICAID, SELFPAY ==
--- NOTE | 2023-11-04 11:00 | PM.PRESUREVA ---
History of Present Illness History of Present Illness Chief complaint: high grade thicken endo, PMB, uterine didelphus Narrative: Patient presents for preadmission testing accompanied by a caregiver from [facility] where she resides. 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 She has poor speech, but does attempt to read lips, interact, and answer questions. The patient indicates that she is still having intermittent abdominal pain with vaginal bleeding. She also has intermittent chest pain, dyspnea, and lower extremity edema which is not new for her. She has been cleared by cardiology for her procedures. Review of Systems ROS Narrative REVIEW OF SYSTEMS: Negative except as stated in HPI, ten or more systems reviewed. Constitutional: No fever , chills, weakness ENT: No sore throat or epistaxis Musculoskeletal: Chronic joint pain Gastrointestinal: No constipation, diarrhea, or vomiting Genitourinary: No dysuria or hematuria Neurological: No numbness, tingling, weakness, or headache Psychiatric: No mood changes PFSH PFS Medical History (Updated 11/04/23 @ 10:58 by Nathalie Hudson NP) Heart palpitations ?R00.2 - Palpitations (ICD-10) Diastolic dysfunction ?I51.89 - Other ill-defined heart diseases (ICD-10) Lower extremity edema ?R60.0 - Localized edema (ICD-10) Atypical chest pain ?R07.89 - Other chest pain (ICD-10) Dyspnea ?R06.00 - Dyspnea, unspecified (ICD-10) Poor speech ?R47.9 - Unspecified speech disturbances (ICD-10) High cholesterol ?E78.00 - Pure hypercholesterolemia, unspecified (ICD-10) Diabetes ?E11.9 - Type 2 diabetes mellitus without complications (ICD-10) Schizophrenia ?F20.9 - Schizophrenia, unspecified (ICD-10) COPD (chronic obstructive pulmonary disease) ?J44.9 - Chronic obstructive pulmonary disease, unspecified (ICD-10) Psychological disorder ?F99 - Mental disorder, not otherwise specified (ICD-10) Deaf ?H91.90 - Unspecified hearing loss, unspecified ear (ICD-10) Hypertension ?I10 - Essential (primary) hypertension (ICD-10) Incomplete bladder emptying ?R33.9 - Retention of urine, unspecified (ICD-10) Asthma ?J45.909 - Unspecified asthma, uncomplicated (ICD-10) Hydronephrosis ?N13.30 - Unspecified hydronephrosis (ICD-10) Hydroureter ?N13.4 - Hydroureter (ICD-10) 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 - Other and unspecified doubling of uterus (ICD-10) Postmenopausal bleeding ?N95.0 - Postmenopausal bleeding (ICD-10) Thickened endometrium ?R93.89 - Abnormal findings on diagnostic imaging of other specified body structures (ICD-10) 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 ?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.613 - High grade squamous intraepithelial lesion on cytologic smear of cervix (HGSIL) (ICD-10) Surgical History (Updated 08/15/23 @ 10:19 by Nathalie Hudson NP) History of appendectomy ?Z90.49 - Acquired absence of other specified parts of digestive tract (ICD-10) H/O section ?Z98.891 - History of uterine scar from previous surgery (ICD-10) Family History (Updated 08/15/23 @ 10:19 by Nathalie Hudson NP) Other Family history of coronary artery disease Family history of hypertension Family history of stroke Kidney disease Social History (Updated 08/15/23 @ 11:14 by Nathalie Hudson NP) Within the past year, how often did you have a drink containing alcohol: never Score interpretation: A score less than 3 is consistent with normal alcohol consumption. Smoking status: Never smoker Meds Home Medications and Allergies Home Medications ?Medication ?Instructions ?Recorded ?Confirmed ?Type acarbose 100 mg tablet 100 mg PO BID 08/15/23 11/04/23 History acetaminophen 500 mg capsule 1,000 mg PO QPM 08/15/23 11/04/23 History albuterol sulfate 90 mcg/actuation 2 inh inhalation Q6H PRN shortness 08/15/23 11/04/23 History aerosol inhaler (ProAir HFA) of breath or wheezing aspirin 81 mg capsule 81 mg PO DAILY 08/15/23 11/04/23 History atorvastatin 40 mg tablet 40 mg PO DAILY 08/15/23 11/04/23 History cholecalciferol (vitamin D3) 125 5,000 unit PO DAILY 08/15/23 11/04/23 History mcg (5,000 unit) capsule famotidine 40 mg tablet 40 mg PO DAILY 08/15/23 11/04/23 History ferrous sulfate 325 mg (65 mg 325 mg PO DAILY 08/15/23 11/04/23 History iron) tablet,delayed release fluticasone propionate 50 2 spray intranasal DAILY PRN 08/15/23 11/04/23 History mcg/actuation nasal allergy symptoms spray,suspension (Allergy Relief (fluticasone)) ipratropium bromide 0.02 % 2.5 ml inhalation Q4H PRN 08/15/23 11/04/23 History solution for inhalation shortness of breath or wheezing lumateperone 42 mg capsule 42 mg PO DAILY 08/15/23 11/04/23 History (Caplyta) magnesium hydroxide 400 mg/5 mL 2,400 mg PO DAILY PRN constipation 08/15/23 11/04/23 History oral suspension (Milk of Magnesia) metformin 1,000 mg tablet 1,000 mg PO BID 08/15/23 11/04/23 History montelukast 10 mg tablet 10 mg PO DAILY 08/15/23 11/04/23 History nitroglycerin 400 mcg/spray 1 spray sublingual Q5M PRN chest 08/15/23 11/04/23 History translingual pain pseudoephedrine HCl 30 mg tablet 30 mg PO Q6H PRN nasal congestion 08/15/23 11/04/23 History (Sudafed) ranolazine 500 mg tablet,extended 500 mg PO BID 08/15/23 11/04/23 History release,12 hr sacubitril 24 mg-valsartan 26 mg 1 tab PO BID 08/15/23 11/04/23 History tablet (Entresto) topiramate 25 mg tablet (Topamax) 25 mg PO DAILY 08/15/23 11/04/23 History trazodone 50 mg tablet 25 mg PO DAILY 08/15/23 11/04/23 History vitamin B complex (B 1 tab PO DAILY 08/15/23 11/04/23 History Complex-Vitamin B12 tablet) dulaglutide 0.75 mg/0.5 mL 0.75 mg subcut QWEEK 11/04/23 11/04/23 History subcutaneous pen injector (Trulicity) medroxyprogesterone 10 mg tablet 10 mg PO DAILY 11/04/23 11/04/23 History (Provera) ondansetron HCl 4 mg tablet 4 mg PO Q6H PRN nausea and vomiting 11/04/23 11/04/23 History pramoxine 1 %-mineral oil 46.6 ea 11/04/23 History %-zinc 12.5 % rectal ointment Allergies Allergy/AdvReac Type Severity Reaction Status Date / Time No Known Drug Allergies Allergy Verified 11/04/23 10:17 Exam Narrative Exam Narrative: Constitutional: Awake, alert, comfortable, well-appearing, nontoxic, vital signs as charted Head: Normocephalic, atraumatic Neck: Supple, normal appearance, normal range of motion, no meningeal signs, no lymphadenopathy Respiratory: No respiratory distress, breath sounds clear Cardiovascular: Regular rate and rhythm, strong and regular heart tones Abdomen: Nontender, normal bowel sounds, soft, no CVA tenderness Musculoskeletal: Normal gait, 2+ bilateral pedal edema Skin: No rashes or induration, no lesions, only visible skin inspected Neuro: No neurological deficits, normal sensation Psychiatric: Oriented to baseline, affect at baseline Assessment and Plan Assessment and Plan (1) Hydronephrosis: (2) Hydroureter: (3) Postmenopausal bleeding: (4) Uterus didelphys: (5) Thickened endometrium: (6) 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 Patterson 11/17/2023. D and C, hysteroscopy, possible Myosure, LEEP procedure scheduled with Dr. Crespo 11/17/2023.
[2023-11-04 11:33] LABS: Basophils Absolute Auto 0.1 10^3/uL (0.0-0.1); Basophils Percent Auto 0.5 % (0.2-2.0); Eosinophils Absolute Auto 0.2 10^3/uL (0.0-0.7); Eosinophils Percent Auto 2.2 % (0.9-7.0); Hematocrit 25.4 % (36.0-48.0); Hemoglobin 7.2 g/dL (12.0-16.0); Immature Granulocytes Abs Auto 0.04 10^3/uL (0.00-0.03); Immature Granulocytes Pct Auto 0.4 % (0.0-0.5); Lymphocytes Absolute Auto 1.7 10^3/uL (1.2-3.8); Lymphocytes Percent Auto 15.9 % (20.5-60.0); Mean Corpuscular HGB Conc 28.3 g/dL (29.9-35.2); Mean Corpuscular Hemoglobin 26.9 pg (26.7-34.0); Mean Corpuscular Volume 94.8 fL (81.0-99.0); Mean Platelet Volume 8.8 fL (9.5-13.5); Monocytes Absolute Auto 1.2 10^3/uL (0.3-0.8); Monocytes Percent Auto 10.8 % (1.7-12.0); Neutrophils Absolute Auto 7.5 10^3/uL (1.4-6.5); Neutrophils Percent Auto 70.2 % (43.0-75.0); Platelet Count 596 10^3/uL (150-450); Red Cell Distribution Width 14.6 % (11.0-15.0); White Blood Count 10.6 10^3/uL (4.0-11.0)
[2023-11-04 15:23] LABS: Red Blood Count 2.68 10^6/uL (4.20-5.40)
== END 2023-11-04 09:46 | disposition home or self-care (01) ==
PROVIDERS: Visit Provider Obstetrics & Gynecology
DX: Z01.818 Encounter for other preprocedural examination (principal); R87.613 High grade squamous intraepithelial lesion on cytologic smear of cervix (HGSIL); R93.89 Abnormal findings on diagnostic imaging of other specified body structures; I10 Essential (primary) hypertension; E11.9 Type 2 diabetes mellitus without complications; Z79.01 Long term (current) use of anticoagulants; J44.9 Chronic obstructive pulmonary disease, unspecified
CPT/HCPCS: 36415; 80048; 85025; 85610; 85730; G0463

== ENCOUNTER 2023-11-08 19:33 | Inpatient (IN) | payer MEDICARE, MEDICAID, SELFPAY ==
[2023-11-08] VITALS (22 sets, daily range): BP systolic 85–127; BP diastolic 46–75; PULSE 63–78; TEMP 36.4–36.8; O2SAT 96–99; BMI 36.6; BMI 32.7
--- NOTE | 2023-11-08 19:36 | ECG_ITS ---
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
--- NOTE | 2023-11-08 19:40 | ED_ITS ---
HPI HPI - General Adult General Chief complaint: Recheck/Abnormal Lab/Rx Stated complaint: Weakness Time Seen by Provider: 11/08/23 19:36 History of Present Illness HPI narrative: 68-year-old female presents to the emergency department for unclear reasons. The patient is unable to provide any history despite having an motor vehicle parts interpreter attempted to communicate with her. It appears that the patient was sent here for low blood count but the staff at the [facility] could not tell us what it was. She does not appear to have had any blood work today. Reportedly a urology office had called and told the staff to send her to the hospital. Related Data Home Medications ?Medication ?Instructions ?Recorded ?Confirmed acarbose 100 mg tablet 100 mg PO BID 08/15/23 11/08/23 acetaminophen 500 mg capsule 1,000 mg PO QPM 08/15/23 11/08/23 albuterol sulfate 90 mcg/actuation 2 inh inhalation Q6H PRN shortness 08/15/23 11/08/23 aerosol inhaler (ProAir HFA) of breath or wheezing aspirin 81 mg capsule 81 mg PO DAILY 08/15/23 11/08/23 atorvastatin 40 mg tablet 40 mg PO DAILY 08/15/23 11/08/23 cholecalciferol (vitamin D3) 125 5,000 unit PO DAILY 08/15/23 11/08/23 mcg (5,000 unit) capsule famotidine 40 mg tablet 40 mg PO DAILY 08/15/23 11/08/23 ferrous sulfate 325 mg (65 mg 325 mg PO DAILY 08/15/23 11/08/23 iron) tablet,delayed release fluticasone propionate 50 2 spray intranasal DAILY PRN 08/15/23 11/04/23 mcg/actuation nasal allergy symptoms spray,suspension (Allergy Relief (fluticasone)) ipratropium bromide 0.02 % 2.5 ml inhalation Q4H PRN 08/15/23 11/04/23 solution for inhalation shortness of breath or wheezing lumateperone 42 mg capsule 42 mg PO DAILY 08/15/23 11/04/23 (Caplyta) magnesium hydroxide 400 mg/5 mL 2,400 mg PO DAILY PRN constipation 08/15/23 11/04/23 oral suspension (Milk of Magnesia) metformin 1,000 mg tablet 1,000 mg PO BID 08/15/23 11/08/23 montelukast 10 mg tablet 10 mg PO DAILY 08/15/23 11/08/23 nitroglycerin 400 mcg/spray 1 spray sublingual Q5M PRN chest 08/15/23 11/04/23 translingual pain pseudoephedrine HCl 30 mg tablet 30 mg PO Q6H PRN nasal congestion 08/15/23 11/04/23 (Sudafed) ranolazine 500 mg tablet,extended 500 mg PO BID 08/15/23 11/08/23 release,12 hr sacubitril 24 mg-valsartan 26 mg 1 tab PO BID 08/15/23 11/08/23 tablet (Entresto) topiramate 25 mg tablet (Topamax) 25 mg PO DAILY 08/15/23 11/08/23 trazodone 50 mg tablet 25 mg PO DAILY 08/15/23 11/08/23 vitamin B complex (B 1 tab PO DAILY 08/15/23 11/08/23 Complex-Vitamin B12 tablet) dulaglutide 0.75 mg/0.5 mL 0.75 mg subcut QWEEK 11/04/23 11/08/23 subcutaneous pen injector (Trulicity) medroxyprogesterone 10 mg tablet 10 mg PO DAILY 11/04/23 11/04/23 (Provera) ondansetron HCl 4 mg tablet 4 mg PO Q6H PRN nausea and vomiting 11/04/23 11/04/23 pramoxine 1 %-mineral oil 46.6 ea 11/04/23 %-zinc 12.5 % rectal ointment Allergies Allergy/AdvReac Type Severity Reaction Status Date / Time No Known Drug Allergies Allergy Verified 11/08/23 19:42 Opioid HPI Opioid Management Most Recent Opioid Data: No Data to Display Review of Systems ROS Narrative Not obtainable [facility] Medical History (Updated 11/08/23 @ 21:27 by Willie Vieyra MD) Heart palpitations ?R00.2 - Palpitations (ICD-10) Diastolic dysfunction ?I51.89 - Other ill-defined heart diseases (ICD-10) Lower extremity edema ?R60.0 - Localized edema (ICD-10) Atypical chest pain ?R07.89 - Other chest pain (ICD-10) Dyspnea ?R06.00 - Dyspnea, unspecified (ICD-10) Poor speech ?R47.9 - Unspecified speech disturbances (ICD-10) High cholesterol ?E78.00 - Pure hypercholesterolemia, unspecified (ICD-10) Diabetes ?E11.9 - Type 2 diabetes mellitus without complications (ICD-10) Schizophrenia ?F20.9 - Schizophrenia, unspecified (ICD-10) COPD (chronic obstructive pulmonary disease) ?J44.9 - Chronic obstructive pulmonary disease, unspecified (ICD-10) Psychological disorder ?F99 - Mental disorder, not otherwise specified (ICD-10) Deaf ?H91.90 - Unspecified hearing loss, unspecified ear (ICD-10) Hypertension ?I10 - Essential (primary) hypertension (ICD-10) Incomplete bladder emptying ?R33.9 - Retention of urine, unspecified (ICD-10) Asthma ?J45.909 - Unspecified asthma, uncomplicated (ICD-10) Hydronephrosis ?N13.30 - Unspecified hydronephrosis (ICD-10) Hydroureter ?N13.4 - Hydroureter (ICD-10) 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 - Other and unspecified doubling of uterus (ICD-10) Postmenopausal bleeding ?N95.0 - Postmenopausal bleeding (ICD-10) Thickened endometrium ?R93.89 - Abnormal findings on diagnostic imaging of other specified body structures (ICD-10) 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 ?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.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 - High grade squamous intraepithelial lesion on cytologic smear of cervix (HGSIL) (ICD-10) Surgical History (Updated 08/15/23 @ 10:19 by Nathalie Hudson NP) History of appendectomy ?Z90.49 - Acquired absence of other specified parts of digestive tract (ICD- 10) H/O section ?Z98.891 - History of uterine scar from previous surgery (ICD-10) Family History (Updated 08/15/23 @ 10:19 by Nathalie Hudson NP) Other Family history of coronary artery disease Family history of hypertension Family history of stroke Kidney disease Social History (Updated 08/15/23 @ 11:14 by Nathalie Hudson NP) Within the past year, how often did you have a drink containing alcohol: never Score interpretation: A score less than 3 is consistent with normal alcohol consumption. Smoking status: Never smoker Exam Narrative Exam Narrative: Nurses note and vital signs reviewed and patient is not hypoxic. General: The patient appears well and in no apparent distress. Patient is resting comfortably on cart. Skin: Warm, dry, pallor noted. There is no rash noted. Head: Normocephalic, atraumatic Eye: Normal conjunctiva, no drainage Ears, Nose, Mouth, and Throat: oral mucosa is moist. Nares patent. Cardiovascular: Regular Rate and Rhythm Respiratory: Patient is in no distress, no accessory muscle use, lungs are clear to auscultation, no wheezing, rales or rhonchi Back: non-tender GI: Soft and nontender Musculoskeletal: The patient has no evidence of calf tenderness, no pitting edema, symmetrical pulses noted bilaterally Neurological: She is awake and alert and looking around the room. She seems to ignore the motor vehicle parts interpreter when the motor vehicle parts interpreter is attempting to communicate with her on the screen. The patient seems to be trying to communicate by speech but her speech is very difficult to understand. She does move all 4 extremities. Psychiatric: Cannot be assessed Constitutional Vital Signs, click to edit/add: Last Vital Signs Temp 98.3 F 11/08/23 19:36 Pulse 78 11/08/23 19:36 Resp 16 11/08/23 19:36 BP 127/58 11/08/23 19:36 Pulse Ox 99 11/08/23 19:57 O2 Del Method Room Air 11/08/23 19:57 Course Vital Signs Vital signs: Vital Signs Temperature 98.3 F 11/08/23 19:36 Pulse Rate 78 11/08/23 19:36 Respiratory Rate 16 11/08/23 19:36 Blood Pressure 127/58 11/08/23 19:36 Pulse Oximetry 97 11/08/23 19:36 Oxygen Delivery Method Room Air 11/08/23 19:36 Temperature 98.3 F 11/08/23 19:36 Pulse Rate 78 11/08/23 19:36 Respiratory Rate 16 11/08/23 19:36 Blood Pressure 127/58 11/08/23 19:36 Pulse Oximetry 99 11/08/23 19:57 Oxygen Delivery Method Room Air 11/08/23 19:57 Medical Decision Making MDM Narrative Medical decision making narrative: Hemoglobin is about 6.5 and her stool is heme positive. She was given IV Protonix and blood is ordered. She is being admitted. Differential Diagnosis Differential Diagnosis: Upper GI bleed, lower GI bleed Lab Data Lab results reviewed: Yes I reviewed the patient's lab results Labs: Lab Results 11/08/23 11/08/23 Range/Units 19:56 20:05 WBC 7.2 (4.0-11.0) 10^3/uL RBC 2.43 L (4.20-5.40) 10^6/uL Hgb 6.5 L* (12.0-16.0) g/dL Hct 22.9 L* (36.0-48.0) % MCV 94.2 (81.0-99.0) fL MCH 26.7 (26.7-34.0) pg MCHC 28.4 L (29.9-35.2) g/dL RDW 14.5 (11.0-15.0) % Plt Count 420 (150-450) 10^3/uL MPV 8.3 L (9.5-13.5) fL Neut % (Auto) 71.6 (43.0-75.0) % Lymph % (Auto) 13.6 L (20.5-60.0) % [place] % (Auto) 10.9 (1.7-12.0) % Eos % (Auto) 2.8 (0.9-7.0) % Baso % (Auto) 0.4 (0.2-2.0) % Neut # (Auto) 5.2 (1.4-6.5) 10^3/uL Lymph # (Auto) 1.0 L (1.2-3.8) 10^3/uL [place] # (Auto) 0.8 (0.3-0.8) 10^3/uL Eos # (Auto) 0.2 (0.0-0.7) 10^3/uL Baso # (Auto) 0.0 (0.0-0.1) 10^3/uL Abs Immat Gran (auto) 0.05 H (0.00-0.03) 10^3/uL Imm/Tot Granulo (auto) 0.7 H (0.0-0.5) % Sodium 137 (136-145) mmol/L Potassium 4.2 (3.5-5.1) mmol/L Chloride 104 (98-107) mmol/L Carbon Dioxide 23.0 (21.0-32.0) mmol/L Anion Gap 14.2 BUN 13.0 (7.0-18.0) mg/dL Creatinine 1.41 H (0.55-1.02) mg/dL Est GFR ( Amer) 45 L (>=60) Est GFR (Non-Af Amer) 37 L (>=60) BUN/Creatinine Ratio 9.2 Glucose 103 (74-106) mg/dL Calcium 8.9 (8.5-10.1) mg/dL Stool Occult Blood Positive A Blood Type O Positive Antibody Screen Negative ECG Data Attestation: I personally reviewed and interpreted this ECG as follows: (EKG on my interpretation shows sinus rhythm with a rate of 60) Discharge Plan Discharge Chief Complaint: Recheck/Abnormal Lab/Rx Clinical Impression: GI bleed, Anemia Patient Disposition: Admitted As Inpatient Time of Disposition Decision: 21:27 Condition: Good
--- OUTSIDE RECORDS SUMMARY | 2023-11-08 19:50 | XMS_ITS | CCD ---
Author Organization [facility] Care Team Providers Care Autographer Name Role Phone MARKER, DR SALINAS Consulting Unavailable VALONE, DR JAVIER Primary Care Unavailable MARKER, DR SALINAS Attending Unavailable MARKER, DR SALINAS Admitting Unavailable BENEDICT, DR TINEO Admitting Unavailable BENEDICT, DR TINEO Attending Unavailable VALONE, DR JAVIER Attending Unavailable VALONE, DR JAVIER Admitting Unavailable VALONE, DR JAVIER Primary Care Unavailable REINECK, DR NANI Haley Admitting Unavailabl e ROSALBA, DR NANI Haley Attending Unavailabl YAYA Palacios JR Primary Care Physician Pamela Benson Attending Unavailable Pamela Benson Attending Unavailable Ashley CRESPO R Referring Unavailable Pamela Benson Attending Unavailable Pamela Benson Admitting Unavailable ASHLEY CRESPO Attending Unavailable ASHLEY CRESPO Attending Unavailable ASHLEY CRESPO Attending Unavailable ASHLEY CRESPO Attending Unavailable GUERDA CATES Attending Unavailable GUERDA CATES Attending Unavailable REBECCA GALEANO Attending Unavailable Medications Current Medications Medication Drug [...] source) Long-term current use of aspirin; 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] Onset: 4 Episodic [...] Range Facility Office Visiton 10-06-2023 Follow-up visit [id number] Ayala 1955 F Date Provider Department Center 10/06/2023 REBECCA VASQUEZ CELESTE [facility] Family History Problem Relation Age of Onset Coronary artery disease Mother Cancer Father Diabetes Father Family Status - Relation Status Age at Mother Father Level of Service:31582 [place] OFFICE/OUTPATIENT ESTABLISHED MOD MDM 30 MIN Normal [facility] Office Visiton 09-23-2023 Follow-up visit [id number] Ayala 1955 F Date Provider Department Center 09/23/2023 GUERDA RYDER CELESTE [place] Family History Problem Relation Age of Onset Coronary artery disease Mother Cancer Father Diabetes Father Family Status - Relation Status Age at Mother Father Level of Service:52245 [place] OFFICE/OUTPATIENT ESTABLISHED LOW MDM 20 MIN Reason for Visit and Comments: Follow-up [700618] - Concerns: Not much states some swelling in legs and some back back, chest pain seems to be getting better Normal [facility] Office Visiton 08-26-2023 Follow-up visit [id number] Ayala 1955 F Date Provider Department Center 08/26/2023 GUERDA RYDER BH CELESTE [facility] Family History Problem Relation Age of Onset Coronary artery disease Mother Cancer Father Diabetes Father Family Status - Relation Status Age at Mother Father Level of Service:66703 [place] OFFICE/OUTPATIENT NEW MODERATE MDM 45 MINUTES Normal [facility] Consent for Procedure/Surger yon 08-24-2023 Consent for Procedure/Surgery [id number] Normal [facility] Consent for Procedure/Surger yon 08-09-2023 Consent for Procedure/Surgery [id number]#1.00TIFF Normal [facility] Urine Cytology ([facility])on 0 08-09-2023 Urine Cytology Diagnosis Info Invalid Interpretation Code [facility] Comment on above: Result Comment: A:Ur ine,Urine:Voided Interpretation - MicroScopic Description - Adequacy - Gross Description Site ID:A color Dark Yellow fixative Alcohol Specimen designated Urine received in alcohol preservative and labeled with the patient?s name, consists of 110ml slightly cloudy dark yellow fluid. Electronically signed by : on: 08/09/2023 11:46:02 Performed By: #### 1 [id number] #### [facility] [address] [id number] Physician Referralon 024 Physician Referral [id number]#1.00TIFF Normal [facility] Screenson 08-04-2023 Screens [id number]#1.00TIFF Normal [facility] Urine Cytology ([facility])on 0 08-04-2023 Method of Extraction Voided Normal [facility] Comment on above: Performed By: #### 1 [id number] #### [facility] [address] [id number] Number of Jars 1 Invalid Interpretation Code [facility] Comment on above: Performed By: #### 1 [id number] #### [facility] [address] [place] [address] UC Specimen Urine Normal [facility] Comment on above: Performed By: #### 1 [id number] #### [facility] [address] [place] [address] UC Type of Service Technical Only Normal [facility] Comment on above: Performed By: #### 1 [id number] #### [facility] [address] [place] [address] Ambulatory Visit Summaryon 0 08-03-2023 Ambulatory Visit Summary STEVE WADDELL :1955 Visit Date:08/03/2023 Ambulatory Visit Instructions Your Diagnosis Ureteral dilatation Gross hematuria Former smoker Aspirin long-term use Your Care Team Attending Physician - Marcelino GALLARDO, Pamela Fam Primary Care Physician - YAYA LANGLEY JR, [...] the caus (more content not included)... Normal [facility] Snf Recordson 08-03 Snf Records [id number]#[id number] [facility] [...] including vitamins, herbs, eye drops, creams, and syea-qet-owoifsr medicines. ? Any problems you or family [...] care provider tells you to. ? Taking rfab-dsm-rkpovsh medicines, vitamins, herbs, and supplements. General instructions [...] be monitor (more content not included)... 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 *possible abnormality of urinary system. Ordered due to rectal bleeding. Pt is a new pt. Never before seen in our office. Pt is hard of hearing she can read lips and she has an nurses aid from her home ([facility]) CT abdomen pelvis wo/w con done @ [facility] on 06/06/23 She tried giving a [...] age Assessment/Plan 68 yo female resident of [facility] here for new patient evaluation of right hydroureteronephrosis. Pt is hard of hearing, can read lips and she has a nurses aid from her home with her. Mother had lung cancer. Denies any other urologic surgeries. 1. Hydroureteronephrosis (N13.30: Unspecified hydronephrosis) CT AP wo/w PO con @ [facility] on 06/06/23 - mod Rt-sided collecting [...] cysto, if patient unable to submit from [facility] prior 3. Former smoker (Z87.891: Personal history of nicotine dependence) Smoked for a very little amount of time. 4. Aspirin long-term use (Z79.82: [facility]CC (curre (more content not included)... Normal [facility] Comment on above: Result Comment: [...] by: RIVKA FRAZIER Date: 2022-07-05 15:47 Normal [facility] MAMM SCREEN 3D DERRICK CADon 05-14-2022 MG MAMM SCREEN 3D DERRICK CAD Patient: STEVE WADDELL Exam Date: 05/14/2022 : 1955 Gender:F Ordering : DR YAYA LANGLEY D.O. Admission #: [id number] Family : Order #: [id number] CLICK HERE TO VIEW EXAM RADIOLOGY REPORT [...] Treatments None Family Cancers None LOCATION: [facility] BREAST COMPOSITION: Almost entirely fatty. [...] Huddleston MD on 05/14/2022 at 12:49 Normal [facility] BNPon 03-07-2022 Natriuretic peptide B (Bld) [Mass/Vol] 115.0 pg/mL Normal <=900.0 [facility] Comment on above: Performed By: #### [facility], CMP, HSTROPN #### [facility] [address] [place] [address] Dr. Carl Zuñiga CBC AUTO DIFFon 03-07-2022 BASO # 0.0 103/ul Normal 0.0-0.1 [facility] Comment on above: Performed By: #### [facility], CMP, HSTROPN #### [facility] [address] [place] [address] Dr. Carl Zuñiga Basophils/100 WBC (Bld) 0.0 % Critically low 0.2-2.0 [facility] Comment on above: Performed By: #### [facility], CMP, HSTROPN #### [facility] [address] [place] [address] Dr. Carl Zuñiga EO # 0.1 103/ul Normal 0.0-0.7 [facility] Comment on above: Performed By: #### [facility], CMP, HSTROPN #### [facility] [address] [place] [address] Dr. Carl Zuñiga Eosinophils/100 WBC (Bld) 1.0 % Normal 0.9-7.0 [facility] Comment on above: Performed By: #### [facility], CMP, HSTROPN #### [facility] [address] [place] [address] Dr. Carl Zuñiga Erythrocyte distribution width (RBC) [Ratio] 13.7 % Normal 11.0-15.0 [facility] Comment on above: Performed By: #### [facility], CMP, HSTROPN #### [facility] [address] [place] [address] Dr. Carl Zuñiga Hematocrit (Bld) [Volume fraction] 40.8 % Normal 36.0-48.0 [facility] Comment on above: Performed By: #### [facility], CMP, HSTROPN #### [facility] [address] [place] [address] Dr. Carl Zuñiga Hemoglobin (Bld) [Mass/Vol] 13.1 g/dL Normal 12.0-16.0 [facility] Comment on above: Performed By: #### [facility], CMP, HSTROPN #### [facility] [address] [place] [address] Dr. Carl Zuñiga IG # 0.02 10e3/ul Normal 0.00-0.03 [facility] Comment on above: Performed By: #### [facility], CMP, HSTROPN #### [facility] [address] [place] [address] Dr. Carl Zuñiga IG % 0.3 % Normal 0.0-0.5 [facility] Comment on above: Performed By: #### [facility], CMP, HSTROPN #### [facility] [address] [place] [address] Dr. Carl Zuñiga LYMPH # 0.9 103/ul Critically low 1.2-3.8 [facility] Comment on above: Performed By: #### [facility], CMP, HSTROPN #### [facility] [address] [place] [address] Dr. Carl Zuñiga Lymphocytes/100 WBC (Bld) 13.9 % Critically low 20.5-60.0 [facility] Comment on above: Performed By: #### [facility], CMP, HSTROPN #### [facility] [address] [place] [address] Dr. Carl Zuñiga MANUAL DIFF REQ NO Normal [facility] Comment on above: Performed By: #### [facility], CMP, HSTROPN #### [facility] [address] [place] [address] Dr. Carl Zuñiga MCH (RBC) [Entitic mass] 30.8 pg Normal 26.7-34.0 [facility] Comment on above: Performed By: #### [facility], CMP, HSTROPN #### [facility] [address] [place] [address] Dr. Carl Zuñiga MCHC (RBC) [Mass/Vol] 32.1 g/dL Normal 29.9-35.2 [facility] Comment on above: Performed By: #### [facility], CMP, HSTROPN #### [facility] [address] [place] [address] Dr. Carl Zuñiga MCV (RBC) [Entitic vol] 96.0 fL Normal 81.0-99.0 [facility] Comment on above: Performed By: #### [facility], CMP, HSTROPN #### [facility] [address] [place] [address] Dr. Carl Zuñiga MONO # 0.6 103/ul Normal 0.3-0.8 [facility] Comment on above: Performed By: #### [facility], CMP, HSTROPN #### [facility] [address] [place] [address] Dr. Carl Zuñiga Monocytes/100 WBC (Bld) 9.2 % Normal 1.7-12.0 [facility] Comment on above: Performed By: #### [facility], CMP, HSTROPN #### [facility] [address] [place] [address] Dr. Carl Zuñiga NEUT # 5.1 103/ul Normal 1.4-6.5 [facility] Comment on above: Performed By: #### [facility], CMP, HSTROPN #### [facility] [address] [place] [address] Dr. Carl Zuñiga Neutrophils/100 WBC (Bld) 75.6 % Critically high 43.0-75.0 [facility] Comment on above: Performed By: #### [facility], CMP, HSTROPN #### [facility] [address] [place] [address] Dr. Carl Zuñiga Platelet mean volume (Bld) [Entitic vol] 8.5 fL Critically low 9.5-13.5 [facility] Comment on above: Performed By: #### [facility], CMP, HSTROPN #### [facility] [address] [place] [address] Dr. Carl Zuñiga PLT 206 103/ul Normal 150-450 [facility] Comment on above: Performed By: #### [facility], CMP, HSTROPN #### [facility] [address] [place] [address] Dr. Carl Zuñiga RBC 4.25 106/ul Normal 4.20-5.40 [facility] Comment on above: Performed By: #### [facility], CMP, HSTROPN #### [facility] [address] [place] [address] Dr. Carl Zuñiga WBC 6.7 103/ul Normal 4.0-11.0 [facility] Comment on above: Performed By: #### [facility], CMP, HSTROPN #### [facility] [address] [place] [address] Dr. Carl Zuñiga D-DIMERon 03-07-2022 D-DIMER <0.19 Normal <=0.59 [facility] Comment on above: Performed By: #### D DIM #### [facility] [address] [place] [address] Dr. Carl Zuñiga D-DIMER COMMENTS SEE BELOW Normal [facility] Comment on above: Result Comment: Incr [...] hospitalization. Performed By: #### D DIM #### [facility] [address] [place] [address] Dr. Carl Zuñiga PROF 14(COMP METB)on 022 Albumin [Mass/Vol] 3.9 g/dL Normal 3.4-5.0 [facility] Comment on above: Performed By: #### [facility], CMP, HSTROPN #### [facility] [address] [place] [address] Dr. Carl Zuñiga Albumin/Globulin [Mass ratio] 1.5 {ratio} Normal [facility] Comment on above: Performed By: #### [facility], CMP, HSTROPN #### [facility] [address] [address] [address] Carl Zuñiga ALP [Catalytic activity/Vol] 96 U/L Normal 46-116 [facility] Comment on above: Performed By: #### [facility], CMP, HSTROPN #### [facility] [address] [place] [address] Dr. Carl Zuñiga ALT [Catalytic activity/Vol] 38 U/L Normal 14-59 [facility] Comment on above: Performed By: #### [facility], CMP, HSTROPN #### [facility] [address] [place] [address] Dr. Carl Zuñiga Anion gap [Moles/Vol] 9.8 mmol/L Normal [facility] Comment on above: Performed By: #### [facility], CMP, HSTROPN #### [facility] [address] [place] [address] Dr. Carl Zuñiga AST [Catalytic activity/Vol] 16 U/L Normal 15-37 [facility] Comment on above: Performed By: #### [facility], CMP, HSTROPN #### [facility] [address] [place] [address] Dr. Carl Zuñiga Bilirubin [Mass/Vol] 0.5 mg/dL Normal 0.2-1.0 [facility] Comment on above: Performed By: #### [facility], CMP, HSTROPN #### [facility] [address] [address] [address] Carl Zuñiga Calcium [Mass/Vol] 9.2 mg/dL Normal 8.5-10.1 [facility] Comment on above: Performed By: #### [facility], CMP, HSTROPN #### [facility] [address] [place] [address] Dr. Carl Zuñiga Chloride [Moles/Vol] 103 mmol/L Normal 98-107 [facility] Comment on above: Performed By: #### [facility], CMP, HSTROPN #### [facility] [address] [address] [address] Carl Zuñiga CO2 [Moles/Vol] 29.1 mmol/L Normal 21.0-32.0 [facility] Comment on above: Performed By: #### [facility], CMP, HSTROPN #### [facility] [address] [address] [address] Carl Zuñiga Creatinine [Mass/Vol] 0.92 mg/dL Normal 0.55-1.02 [facility] Comment on above: Performed By: #### [facility], CMP, HSTROPN #### [facility] [address] [place] [address] Dr. Carl Zuñiga EGFR-AF NICARAGUAN >60 Normal >=60 [facility] Comment on above: Performed By: #### [facility], CMP, HSTROPN #### [facility] [address] [place] [address] Dr. Carl Zñuiga EGFR-NON AF NICARAGUAN >60 Normal >=60 [facility] Comment on above: Performed By: #### [facility], CMP, HSTROPN #### [facility] [address] [place] [address] Dr. Carl Zuñiga Globulin (S) [Mass/Vol] 2.6 g/dL Normal [facility] Comment on above: Performed By: #### [facility], CMP, HSTROPN #### [facility] [address] [place] [address] Dr. Carl Zuñiga Glucose [Mass/Vol] 109 mg/dL Critically high 74-106 [facility] Comment on above: Performed By: #### [facility], CMP, HSTROPN #### [facility] [address] [place] [address] Dr. Carl Zuñiga Potassium [Moles/Vol] 3.9 mmol/L Normal 3.5-5.1 [facility] Comment on above: Performed By: #### [facility], CMP, HSTROPN #### [facility] [address] [place] [address] Dr. Carl Zuñiga Protein [Mass/Vol] 6.5 g/dL Normal 6.4-8.2 [facility] Comment on above: Performed By: #### [facility], CMP, HSTROPN #### [facility] [address] [address] [address] Carl Zuñiga Sodium [Moles/Vol] 138 mmol/L Normal 136-145 [facility] Comment on above: Performed By: #### [facility], CMP, HSTROPN #### [facility] [address] [address] [address] Carl Zuñiga Urea nitrogen [Mass/Vol] 14.0 mg/dL Normal 7.0-18.0 [facility] Comment on above: Performed By: #### [facility], CMP, HSTROPN #### [facility] [address] [address] [address] Carl Zuñiga Urea nitrogen/Creatini ne [Mass ratio] 15.2 mg/mg Normal [facility] Comment on above: Performed By: #### [facility], CMP, HSTROPN #### [facility] [address] [address] [address] Carl Zuñiga TROPONIN, HIGH SENSITIVITYon 03-07-2022 HSTROP 2.8 pg/mL Critically low 4.0-51.3 [facility] Comment on above: Result Comment: CUT- OFF POINTS HAVE BEEN ESTABLISHED BASED ON THE FOURTH UNIVERSAL DEFINITIONS OF MYOCARDIAL INFARCTION. THE UPPER REFERENCE LIMIT (URL) OF TROPONIN, DEFINED THE 99TH PERCENTILE OF cTnI DISTRIBUTION IN A REFERENCE POPULATION, HAS BEEN CONFIRMED THE DECISION THRESHOLD FOR IN DIAGNOSIS. Performed By: #### [facility], CMP, HSTROPN #### [facility] [address] [address] [address] Carl Zuñiga XR CHEST 1 Von [...] by: DIANA BREAUX Date: 2022-03-07 10:05 Normal [facility] CT CSPINE WO CONon CT CSPINE [...] MARQUES PATEL Date: 2021-07-10 02:49 Normal [facility] CT HEAD WO CONon 07-10-2021 CT [...] MARQUES PATEL Date: 2021-07-10 02:44 Normal [facility] XR CHEST 1 Von 07-10-2021 XR [...] by: MARQUES PATEL Date: 2021-07-10 02:46 Normal [facility] XR PELVIS 1_2 VIEWSon 2020 XR [...] by: MARQUES PATEL Date: 2021-07-10 02:47 Normal [facility] Vital Signs Date Time Vital Sign Value Performing Clinician Carrol perez 08-03-2023 08:23-0500 Blood Pressure Location Pamela Benson [facility] Encounters Encounter Date Encounter Type Care Provider Facility Start: 11-02-2023 End: 11-02-2023 ambulatory ASHLEY CRESPO Not Available Start: 10-06-2023 End: [facility] Start: 09-23-2023 End: 09-23-2023 ambulatory [facility] Start: 08-26-2023 End: 08-26-2023 ambulatory [facility] Start: 08-24-2023 End: 08-25-2023 ambulatory Pamela Benson Facility: [facility] Start: 08-24-2023 End: 08-24-2023 Off-Site Pamela Benson [facility] Start: 08-04-2023 End: 08-05-2023 ambulatory Pamela Benson Facility:[facility] Start: 08-04-2023 End: 08-04-2023 Lab Drop off Pamela Benson [facility] Start: 08-03-2023 End: 08-04-2023 ambulatory Pamela Benson Facility:[facility] Start: 08-03-2023 End: 08-03-2023 Patient encounter procedure Pamela Benson [facility] Start: 07-27-2023 End: 07-27-2023 ambulatory ASHLEY ZACARIAS Not Available Start: 07-22-2023 ambulatory Pamela Marcelino Facility:[facility] Start: 07-06-2023 ambulatory Pamela Swapnaglenn Facility:[facility] Start: 07-05-2023 End: 07-05-2023 ambulatory ASHLEY ZACARIAS Not Available Start: 05-25-2023 End: 05-25-2023 ambulatory ASHLEY ZACARIAS Not Available Start: 07-05-[address] RIVKA PAN Faci lity:H1 Start: 05-14-[address] YAYA Ruano ity:H1 Start: 03-07-[address] YAYA Ruano ity:H1 Start: 07-10-[address] RITA Ruano ity:H1 Procedures Date Procedure Procedure Detail Performing Clinician x3 Pamela Marcelino Immunizations Immunization Date Immunization Notes Care Provider [facility] 05-27-2022 SARS-CoV-2 (COVID-19 ) [id number] Pamela Benson [facility] 06-12-2021 SARS-CoV-2 (COVID-19 ) mRNA BNT-162b9 vax Pamela Lue [facility] 08-13-2020 SARS-CoV-2 (COVID-19 ) mRNA BNT-162x6 vax Pamela Lue [facility] Comment on above: Result Comment: 2023: [id number] 07-23-2020 SARS-CoV-2 (COVID-19 ) mRNA BNT-162b2 vax Pamela Benson [facility] Comment on above: Result Comment: 2023: [id number] Payers Date Payer Category Payer Medicare [id number] 2020 Medicaid [id number] 2020 Medicare [id number] 1955 Unknown [id number] 2.16.8 [id number] 1955 Unknown [id number] 2.16.8 [id number] 1955 Unknown [id number] 2.16.8 [id number] 1955 Unknown [id number] 2.16.84 [id number] 1955 Unknown [id number] 2.16.84 [id number] 1955 Unknown [id number] 2.16.840 [id number] 1955 Unknown [id number] Social History Date Type Detail Facility Start: 08-03-2023 Tobacco smoking status Never s moked tobacco (finding) [facility] Sex Assigned At Female [facility] Functional Status Date Assessment Result Facility 08-03-2023 Functional Status N/A [facility] Clinical Notes 08-03-2023 to 10-06-2023 Note Date & Type Note Facility 10-06-2023 Note Cardiology Clinic No te Chief Complaint: preop risk stratification HPI: PMHx: Steve Waddell is a 68 y.o. female With no reported cardiac history who presents to cardiology clinic at the request of her AUDIOVISUAL TECH doctor for perioperative restratification prior to D&C and LEEP procedure. Of note: Patient is deaf. 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 She does her best to communicate by lipreading. She is accompanied by her courtesy driver today, who assists in communication. Today, [...] a past medical history of Diabetes mellitus ([facility]). Surgical History She has no past surgical [...] test 09/09/2023 N (more content not included)... [facility] 10-06-2023 Note Patient here for 2 w [place] follow up SOB, atypical chest pain, and [...] All other systems reviewed and are negative. [facility] 09-23-2023 Note Cardiology Clinic No te Chief Complaint: preop risk stratification HPI: Steve Waddell is a 68 y.o. female With no reported cardiac history who presents to cardiology clinic at the request of her AUDIOVISUAL TECH doctor for perioperative restratification prior to D&C and LEEP procedure. Of note: Patient is deaf. 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 She does her best to communicate by lipreading. She is accompanied by her courtesy driver today, who assists in communication. Today, [...] a past medical history of Diabetes mellitus ([facility]). Surgical History She has no past surgical [...] -Further recommendations regardi (more content not included)... [facility] 09-23-2023 Note Concerns: Not much s tates some swelling in legs and some back back, chest pain seems to be getting better [facility] 08-26-2023 Note Cardiology Clinic No te Chief Complaint: preop risk stratification HPI: Steve Waddell is a 68 y.o. female With no reported cardiac history who presents to cardiology clinic at the request of her AUDIOVISUAL TECH doctor for perioperative restratification prior to D&C and LEEP procedure. Of note: Patient is deaf. 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 She does her best to communicate by lipreading. She is accompanied by her courtesy driver today, who assists in communication. As per patient and her courtesy driver, patient denies any cardiac history. She denies any prior history of heart failure, CAD, PCI, or IN. She does report occasional chest pain. Chest [...] a past medical history of Diabetes mellitus ([facility]). Surgical History She has no past surgical [...] HLD -[employer] med (more content not included)... [facility] 08-26-2023 Note New patient here to establish care. Ref from Dr. Crespo for surgery clearance prior to D&C and LEEP procedure. This is scheduled for 08/31 at [facility] per patient. She had labs and EKG last week. Says she gets intermittent chest pain and SOB w/ exertion. Review of Systems HENT: Positive for hearing loss. Cardiovascular: Positive for chest pain (intermittent) and dyspnea on exertion (intermittent). All other systems reviewed and are negative. [facility] 08-04-2023 Evaluation + Plan note Diagnostic Tests PendingUrine Cytology ([facility]) 08/04/23 [facility] 08-03-2023 Hospital Discharge instructions Patient [...] including vitamins, herbs, eye drops, creams, and txkl-wps-hsollvi medicines. Any problems you or family members [...] health care provider tells you to. Taking wkpz-kek-xwmlthe medicines, vitamins, herbs, and supplements. General instructions [...] provider. Document Revised: 10/22/2022 Document Reviewed: 10/22/2022 [employer] Patient Education 2022 [employer]. 08/03/2023 09:37:21 Hematuria, Adult Hematuria, Adult Hematuria [...] Follow these instructions at home: Medicines Take rgzt-cju-yfkdpqd and prescription medicines only as told by [...] or the blood stops without treatment. Take rcqs-xic-hkstdli and prescription medicines only as told by your health care provider. Drink enough fluid to keep your urine pale yellow. This information is not intended to replace advice given to you by your health care provider. Make sure you discuss any questions you have with your health care provider. Document Revised: 02/25/2021 Document Reviewed: 02/25/2021 [employer] Patient Education 2022 [employer]. Follow Up Care 07/13/2023 11:34:42 With:Marcelino GALLARDO, Pamela Fam, URL, URO Address: When: Unknown Comments:Schedule Cysto, Rt ureteroscopy, possible biopsy, and Rt stent placement [facility] Evaluation + Plan note No data available for this section [facility] Hospital Discharge instructions No data available for this section [facility] Progress note No data available for this section [facility] Summary Purpose Family History No Family History Records Found No data available for this section No data available for this section No data available for this section No Family History Records FoundNo Family History Records FoundNo Family History Records Found Advance Directives No Advanced Directives Records FoundNo Advanced Directives Records FoundNo Advanced Directives Records FoundNo Advanced Directives Records Found Additional Source Comments INFORMATION SOURCE (unrecogn ized section and content) DATE CREATED AUTHOR 07/05/2022 [facility] DATE CREATED AUTHOR AUTHOR'S ORGANIZ ATION 08/26/2023 [facility] DATE CREATED AUTHOR AUTHOR'S ORGANIZ ATION 11/04/2023 [facility] DATE CREATED AUTHOR AUTHOR'S ORGANIZ ATION 11/05/2023 [facility] Patient Care team informatio n (unrecognized section and content) Personnel Name: SHIVAM DO YAYA Address: Address: [address] [place], [place] [id number] Personnel Name: YAYA LANGLEY JR, DO Address: Address: [address] [place], [place] [id number] Personnel Name: YAYA LANGLEY JR, DO Address: Address: [address] [place], [place] [id number] FOR RECORDS PERTAINING TO PATIENTS WHO ARE [...] BE BASED ON THE PRIMARY CLINICAL RECORDS. [employer] provides no warranty or guarantee of the accuracy or completeness of information in this document.
[2023-11-08 20:05] LABS: Basophils Percent Auto 0.4 % (0.2-2.0); Eosinophils Absolute Auto 0.2 10^3/uL (0.0-0.7); Eosinophils Percent Auto 2.8 % (0.9-7.0); Immature Granulocytes Abs Auto 0.05 10^3/uL (0.00-0.03); Immature Granulocytes Pct Auto 0.7 % (0.0-0.5); Lymphocytes Percent Auto 13.6 % (20.5-60.0); Mean Corpuscular HGB Conc 28.4 g/dL (29.9-35.2); Mean Corpuscular Hemoglobin 26.7 pg (26.7-34.0); Mean Corpuscular Volume 94.2 fL (81.0-99.0); Mean Platelet Volume 8.3 fL (9.5-13.5); Monocytes Absolute Auto 0.8 10^3/uL (0.3-0.8); Monocytes Percent Auto 10.9 % (1.7-12.0); Neutrophils Absolute Auto 5.2 10^3/uL (1.4-6.5); Neutrophils Percent Auto 71.6 % (43.0-75.0); Platelet Count 420 10^3/uL (150-450); Red Blood Count 2.43 10^6/uL (4.20-5.40); Red Cell Distribution Width 14.5 % (11.0-15.0); White Blood Count 7.2 10^3/uL (4.0-11.0)
[2023-11-08 20:11] LABS: Hematocrit 22.9 % (36.0-48.0); Hemoglobin 6.5 g/dL (12.0-16.0)
[2023-11-08 20:18] LABS: Anion Gap 14.2; BUN Creatinine Ratio 9.2; Calcium 8.9 mg/dL (8.5-10.1); Chloride 104 mmol/L (98-107); Estimated GFR (African America 45 (>=60); Estimated GFR (Non-African Ame 37 (>=60); Glucose 103 mg/dL (74-106); Potassium 4.2 mmol/L (3.5-5.1); Sodium 137 mmol/L (136-145)
[2023-11-08 20:36] LABS: Occult Blood Positive
[2023-11-08] MEDS: PANTOPRAZOLE SODIUM 40 MG VIAL IV (21:24)
--- OUTSIDE RECORDS SUMMARY | 2023-11-08 22:08 | XMS_ITS | CCD ---
Author Organization [facility] Care Team Providers Care Traffic Control Supervisor Name Role Phone MARKER, DR SALINAS Consulting Unavailable VALONE, DR JAVIER Primary Care Unavailable MARKER, DR SALINAS Attending Unavailable MARKER, DR SALINAS Admitting Unavailable BENEDICT, DR TINEO Admitting Unavailable BENEDICT, DR TINEO Attending Unavailable VALONE, DR JAVIER Attending Unavailable VALONE, DR JAVIER Admitting Unavailable VALONE, DR JAVIER Primary Care Unavailable REINECK, DR NANI Haley Admitting Unavailalice NAVARRETE, DR NANI Haley Attending UnavailYAYA Lance JR Primary Care Physician ASHLEY CRESPO Attending Unavailable ASHLEY CRESPO Attending Unavailable ASHLEY CRESPO Attending Unavailable ASHLEY CRESPO Attending Unavailable GUERDA CATES Attending Unavailable GUERDA CATES Attending Unavailable REBECCA GALEANO Attending Unavailable Pamela Benson Attending Unavailable Aslhey CRESPO Referring Unavailable Pamela Benson Attending Unavailable Pamela Benson Admitting Unavailable Edmond KUHN Attending Unavailable Pamela Benson Attending Unavailable Medications Current [...] source) Long-term current use of aspirin; Translations: [group home (current) use of aspirin] Onset: 4 Episodic [...] Test Name Value Interpretation Reference Range Facility [facility] 11-08-2023 Lab Reports [id number]#1.00TIFF Normal [facility] Report[facility] 11-07-2023 Lab Reports [id number]#1.00TIFF Normal [facility] Consent for Procedure/Surger yon 10-14-2023 Consent for Procedure/Surgery [id number] Normal [facility] Office Visiton 10-06-2023 Follow-up visit [id number] Kelby Waddell 1955 F Date Provider Department Center 10/06/2023 166-REBECCA GALEANO [facility] Family History Problem Relation Age of Onset Coronary artery disease Mother Cancer Father Diabetes Father Family Status - Relation Status Age at Mother Father Level of Service:64304 [place] OFFICE/OUTPATIENT ESTABLISHED MOD MDM 30 MIN Normal [facility] Office Visiton 09-23-2023 Follow-up visit [id number] Kelby Waddell 1955 F Date Provider Department Center 09/23/2023 3848-GUERDA CATES CELESTE [facility] Family History Problem Relation Age of Onset Coronary artery disease Mother Cancer Father Diabetes Father Family Status - Relation Status Age at Mother Father Level of Service:45805 [place] OFFICE/OUTPATIENT ESTABLISHED LOW MDM 20 MIN Reason for Visit and Comments: Follow-up [649576] - Concerns: Not much states some swelling in legs and some back back, chest pain seems to be getting better Normal [facility] Office Visiton 08-26-2023 Follow-up visit [id number] Kelby Waddell 1955 F Date Provider Department Center 08/26/2023 3848-GUERDA CATES [facility] Family History Problem Relation Age of Onset Coronary artery disease Mother Cancer Father Diabetes Father Family Status - Relation Status Age at Mother Father Level of Service:85837 [place] OFFICE/OUTPATIENT NEW MODERATE MDM 45 MINUTES Normal [facility] Consent for Procedure/Surger yon 08-24-2023 Consent for Procedure/Surgery [id number] Normal [facility] Consent for Procedure/Surger yon 08-09-2023 Consent for Procedure/Surgery [id number]#1.00TIFF [facility] Urine Cytology ([facility])on 0 08-09-2023 Urine Cytology Diagnosis Info Invalid Interpretation Code [facility] Comment on above: Result Comment: A:Ur ine,Urine:Voided Interpretation - MicroScopic Description - Adequacy - Gross Description Site ID:A color Dark Yellow fixative Alcohol Specimen designated Urine received in alcohol preservative and labeled with the patient?s name, consists of 110ml slightly cloudy dark yellow fluid. Electronically signed by : on: 08/09/2023 11:46:02 Performed By: #### 1 [id number] #### [facility] [address] [place] [address] Physician Referralon 024 Physician Referral [id number]#1.00TIFF [facility] Screenson 08-04-2023 Screens [id number]#1.00TIFF Normal [facility] Urine Cytology ([facility])on 0 08-04-2023 UC Method of Extraction Voided Normal [facility] Comment on above: Performed By: #### 1 [id number] #### [facility] [address] [place] [address] UC Number of Jars 1 Invalid Interpretation Code [facility] Comment on above: Performed By: #### 1 [id number] #### [facility] [address] [place] [address] Specimen Urine Normal [facility] Comment on above: Performed By: #### 1 [id number] #### [facility] [address] [place] [address] Type of Service Technical Only Normal [facility] Comment on above: Performed By: #### 1 [id number] #### [facility] [address] [place] [address] Ambulatory Visit Summaryon 0 08-03-2023 Ambulatory Visit [...] the caus (more content not included)... Normal [facility] Residential Recordson 08-03 Residential Records [id number]#[id number] Normal [facility] Patient Educationon 08-03-19 Patient Education [...] including vitamins, herbs, eye drops, creams, and uejc-fcy-anmchfz medicines. ? Any problems you or family [...] care provider tells you to. ? Taking fbdb-rhp-kvtsgru medicines, vitamins, herbs, and supplements. General instructions [...] be monitor (more content not included)... Normal [facility] Urology Office/Clinic Noteon 08-03-2023 Urology Office/Clinic Note Chief Complaint Veneer Taper for abnormalitties in urinary system HPI Staff Evaluation requested by Dr Ashley Crespo due to incidental findings on CT 06/06/23. *possible abnormality of urinary system. Ordered due to rectal bleeding. Pt is a new pt. Never before seen in our office. Pt is hard of hearing she can read lips and she has an nurses aid from her home ([facility]) CT abdomen pelvis wo/w con done @ [facility] on 06/06/23 She tried giving a urine [...] age Assessment/Plan 68 yo female resident of [facility] here for new patient evaluation of right hydroureteronephrosis. Pt is hard of hearing, can read lips and she has a nurses aid from her home with her. Mother had lung cancer. Denies any other urologic surgeries. 1. Hydroureteronephrosis (N13.30: Unspecified hydronephrosis) CT AP wo/w PO con @ [facility] on 06/06/23 - mod Rt-sided collecting system [...] of time. 4. Aspirin long-term use (Z79.82: group home (curre (more content not included)... Normal [facility] Comment on above: Result Comment: [...] Date: 2022-07-05 15:47 Normal [facility] MAMM SCREEN 3D DERRICK CADon 05-14-2022 MG MAMM SCREEN 3D DERRICK CAD Patient: STEVE WADDELL Exam Date: 05/14/2022 : 1955 Gender:F Ordering : DR YAYA LANGELY D.O. Admission #: [id number] Family : Order #: [id number] CLICK HERE TO VIEW EXAM RADIOLOGY REPORT [...] No Treatments None Family Cancers None LOCATION: [facility] BREAST COMPOSITION: Almost entirely fatty. FINDINGS: DIAGNOSTIC [...] MD on 05/14/2022 at 12:49 Normal [facility] BNPon 03-07-2022 Natriuretic peptide B (Bld) [Mass/Vol] 115.0 pg/mL Normal <=900.0 [facility] Comment on above: Performed By: #### B TELEPRINTER INSTALLER, CMP, HSTROPN #### [facility] [address] [place] [address] Dr. Carl Zuñiga CBC AUTO DIFFon 03-07-2022 BASO # 0.0 103/ul Normal 0.0-0.1 [facility] Comment on above: Performed By: #### B TELEPRINTER INSTALLER, CMP, HSTROPN #### [facility] [address] [place] [address] Dr. Carl Zuñiga Basophils/100 WBC (Bld) 0.0 % Critically low 0.2-2.0 [facility] Comment on above: Performed By: #### B TELEPRINTER INSTALLER, CMP, HSTROPN #### [facility] [address] [place] [address] Dr. Carl Zuñiga EO # 0.1 103/ul Normal 0.0-0.7 [facility] Comment on above: Performed By: #### B TELEPRINTER INSTALLER, CMP, HSTROPN #### [facility] [address] [place] [address] Dr. Carl Zuñiga Eosinophils/100 WBC (Bld) 1.0 % Normal 0.9-7.0 [facility] Comment on above: Performed By: #### B TELEPRINTER INSTALLER, CMP, HSTROPN #### [facility] [address] [place] [address] Dr. Carl Zuñiga Erythrocyte distribution width (RBC) [Ratio] 13.7 % Normal 11.0-15.0 [facility] Comment on above: Performed By: #### B TELEPRINTER INSTALLER, CMP, HSTROPN #### [facility] [address] [place] [address] Dr. Carl Zuñiga Hematocrit (Bld) [Volume fraction] 40.8 % Normal 36.0-48.0 [facility] Comment on above: Performed By: #### B TELEPRINTER INSTALLER, CMP, HSTROPN #### [facility] [address] [place] [address] Dr. Carl Zuñiga Hemoglobin (Bld) [Mass/Vol] 13.1 g/dL Normal 12.0-16.0 [facility] Comment on above: Performed By: #### B TELEPRINTER INSTALLER, CMP, HSTROPN #### [facility] [address] [place] [address] Dr. Carl Zuñiga IG # 0.02 10e3/ul Normal 0.00-0.03 [facility] Comment on above: Performed By: #### B TELEPRINTER INSTALLER, CMP, HSTROPN #### [facility] [address] [place] [address] Dr. Carl Zuñiga IG % 0.3 % Normal 0.0-0.5 [facility] Comment on above: Performed By: #### B TELEPRINTER INSTALLER, CMP, HSTROPN #### [facility] [address] [place] [address] Dr. Carl Zuñiga LYMPH # 0.9 103/ul Critically low 1.2-3.8 [facility] Comment on above: Performed By: #### B TELEPRINTER INSTALLER, CMP, HSTROPN #### [facility] [address] [place] [address] Dr. Carl Zuñiga Lymphocytes/100 WBC (Bld) 13.9 % Critically low 20.5-60.0 [facility] Comment on above: Performed By: #### B TELEPRINTER INSTALLER, CMP, HSTROPN #### [facility] [address] [place] [address] Dr. Carl Zuñiga MANUAL DIFF REQ NO Normal [facility] Comment on above: Performed By: #### B TELEPRINTER INSTALLER, CMP, HSTROPN #### [facility] [address] [place] [address] Dr. Carl Zuñiga MCH (RBC) [Entitic mass] 30.8 pg Normal 26.7-34.0 [facility] Comment on above: Performed By: #### B TELEPRINTER INSTALLER, CMP, HSTROPN #### [facility] [address] [place] [address] Dr. Carl Zuñiga MCHC (RBC) [Mass/Vol] 32.1 g/dL Normal 29.9-35.2 [facility] Comment on above: Performed By: #### B TELEPRINTER INSTALLER, CMP, HSTROPN #### [facility] [address] [place] [address] Dr. Carl Zuñiga MCV (RBC) [Entitic vol] 96.0 fL Normal 81.0-99.0 [facility] Comment on above: Performed By: #### B TELEPRINTER INSTALLER, CMP, HSTROPN #### [facility] [address] [place] [address] Dr. Carl Zuñiga MONO # 0.6 103/ul Normal 0.3-0.8 [facility] Comment on above: Performed By: #### B TELEPRINTER INSTALLER, CMP, HSTROPN #### [facility] [address] [place] [address] Dr. Carl Zuñiga Monocytes/100 WBC (Bld) 9.2 % Normal 1.7-12.0 [facility] Comment on above: Performed By: #### B TELEPRINTER INSTALLER, CMP, HSTROPN #### [facility] [address] [place] [address] Dr. Carl Zuñiga NEUT # 5.1 103/ul Normal 1.4-6.5 [facility] Comment on above: Performed By: #### B TELEPRINTER INSTALLER, CMP, HSTROPN #### [facility] [address] [place] [address] Dr. Carl Zuñiga Neutrophils/100 WBC (Bld) 75.6 % Critically high 43.0-75.0 [facility] Comment on above: Performed By: #### B TELEPRINTER INSTALLER, CMP, HSTROPN #### [facility] [address] [place] [address] Dr. Carl Zuñiga Platelet mean volume (Bld) [Entitic vol] 8.5 fL Critically low 9.5-13.5 [facility] Comment on above: Performed By: #### B TELEPRINTER INSTALLER, CMP, HSTROPN #### [facility] [address] [place] [address] Dr. Carl Zuñiga PLT 206 103/ul Normal 150-450 [facility] Comment on above: Performed By: #### B TELEPRINTER INSTALLER, CMP, HSTROPN #### [facility] [address] [place] [address] Dr. Carl Zuñiga RBC 4.25 106/ul Normal 4.20-5.40 [facility] Comment on above: Performed By: #### B TELEPRINTER INSTALLER, CMP, HSTROPN #### [facility] [address] [place] [address] Dr. Carl Zuñiga WBC 6.7 103/ul Normal 4.0-11.0 [facility] Comment on above: Performed By: #### B TELEPRINTER INSTALLER, CMP, HSTROPN #### [facility] [address] [place] [address] Dr. Carl Zuñiga D-DIMERon 03-07-2022 D-DIMER <0.19 Normal <=0.59 [facility] Comment on above: Performed By: #### D DIM #### [facility] [address] [place] [address] Dr. Carl Zuñiga D-DIMER COMMENTS SEE BELOW Normal [facility] Comment on above: Result Comment: Incr eases [...] hospitalization. Performed By: #### D DIM #### [facility] [address] [place] [address] Dr. Carl Zuñiga PROF 14(COMP METB)on 022 Albumin [Mass/Vol] 3.9 g/dL Normal 3.4-5.0 [facility] Comment on above: Performed By: #### B TELEPRINTER INSTALLER, CMP, HSTROPN #### [facility] [address] [place] [address] Dr. Carl Zuñiga Albumin/Globulin [Mass ratio] 1.5 {ratio} Normal [facility] Comment on above: Performed By: #### B TELEPRINTER INSTALLER, CMP, HSTROPN #### [facility] [address] [place] [address] Dr. Carl Zuñiga ALP [Catalytic activity/Vol] 96 U/L Normal 46-116 [facility] Comment on above: Performed By: #### B TELEPRINTER INSTALLER, CMP, HSTROPN #### [facility] [address] [place] [address] Dr. Carl Zuñiga ALT [Catalytic activity/Vol] 38 U/L Normal 14-59 [facility] Comment on above: Performed By: #### B TELEPRINTER INSTALLER, CMP, HSTROPN #### [facility] [address] [place] [address] Dr. Carl Zuñiga Anion gap [Moles/Vol] 9.8 mmol/L Normal [facility] Comment on above: Performed By: #### B TELEPRINTER INSTALLER, CMP, HSTROPN #### [facility] [address] [place] [address] Dr. Carl Zuñiga AST [Catalytic activity/Vol] 16 U/L Normal 15-37 [facility] Comment on above: Performed By: #### B TELEPRINTER INSTALLER, CMP, HSTROPN #### [facility] [address] [place] [address] Dr. Carl Zuñiga Bilirubin [Mass/Vol] 0.5 mg/dL Normal 0.2-1.0 [facility] Comment on above: Performed By: #### B TELEPRINTER INSTALLER, CMP, HSTROPN #### [facility] [address] [place] [address] Dr. Carl Zuñiga Calcium [Mass/Vol] 9.2 mg/dL Normal 8.5-10.1 [facility] Comment on above: Performed By: #### B TELEPRINTER INSTALLER, CMP, HSTROPN #### [facility] [address] [address] [address] Carl Zuñiga Chloride [Moles/Vol] 103 mmol/L Normal 98-107 [facility] Comment on above: Performed By: #### B TELEPRINTER INSTALLER, CMP, HSTROPN #### [facility] [address] [address] [address] Carl Zuñiga CO2 [Moles/Vol] 29.1 mmol/L Normal 21.0-32.0 [facility] Comment on above: Performed By: #### B TELEPRINTER INSTALLER, CMP, HSTROPN #### [facility] [address] [place] [address] Dr. Carl Zuñiga Creatinine [Mass/Vol] 0.92 mg/dL Normal 0.55-1.02 [facility] Comment on above: Performed By: #### B TELEPRINTER INSTALLER, CMP, HSTROPN #### [facility] [address] [place] [address] Dr. Carl Zuñiga EGFR-AF IRISH >60 Normal >=60 [facility] Comment on above: Performed By: #### B TELEPRINTER INSTALLER, CMP, HSTROPN #### [facility] [address] [place] [address] Dr. Carl Zuñiga EGFR-NON AF IRISH >60 Normal >=60 [facility] Comment on above: Performed By: #### B TELEPRINTER INSTALLER, CMP, HSTROPN #### [facility] [address] [place] [address] Dr. Carl Zuñiga Globulin (S) [Mass/Vol] 2.6 g/dL Normal [facility] Comment on above: Performed By: #### B TELEPRINTER INSTALLER, CMP, HSTROPN #### [facility] [address] [address] [address] Carl Zuñiga Glucose [Mass/Vol] 109 mg/dL Critically high 74-106 [facility] Comment on above: Performed By: #### B TELEPRINTER INSTALLER, CMP, HSTROPN #### [facility] [address] [place] [address] Dr. Carl Zuñiga Potassium [Moles/Vol] 3.9 mmol/L Normal 3.5-5.1 [facility] Comment on above: Performed By: #### B TELEPRINTER INSTALLER, CMP, HSTROPN #### [facility] [address] [place] [address] Dr. Carl Zuñiga Protein [Mass/Vol] 6.5 g/dL Normal 6.4-8.2 [facility] Comment on above: Performed By: #### B TELEPRINTER INSTALLER, CMP, HSTROPN #### [facility] [address] [place] [address] Dr. Carl Zuñiga Sodium [Moles/Vol] 138 mmol/L Normal 136-145 [facility] Comment on above: Performed By: #### B TELEPRINTER INSTALLER, CMP, HSTROPN #### [facility] [address] [place] [address] Dr. Carl Zuñiga Urea nitrogen [Mass/Vol] 14.0 mg/dL Normal 7.0-18.0 [facility] Comment on above: Performed By: #### B TELEPRINTER INSTALLER, CMP, HSTROPN #### [facility] [address] [place] [address] Dr. Carl Zuñiga Urea nitrogen/Creatini ne [Mass ratio] 15.2 mg/mg Normal [facility] Comment on above: Performed By: #### B TELEPRINTER INSTALLER, CMP, HSTROPN #### [facility] [address] [place] [address] Dr. Carl Zuñiga TROPONIN, HIGH SENSITIVITYon 03-07-2022 HSTROP 2.8 pg/mL Critically low 4.0-51.3 [facility] Comment on above: Result Comment: CUT- OFF POINTS HAVE BEEN ESTABLISHED BASED ON THE FOURTH UNIVERSAL DEFINITIONS OF MYOCARDIAL INFARCTION. THE UPPER REFERENCE LIMIT (URL) OF TROPONIN, DEFINED THE 99TH PERCENTILE OF cTnI DISTRIBUTION IN A REFERENCE POPULATION, HAS BEEN CONFIRMED THE DECISION THRESHOLD FOR SD DIAGNOSIS. Performed By: #### B TELEPRINTER INSTALLER, CMP, HSTROPN #### [facility] [id number] Carl Zuñiga XR CHEST 1 Von [...] by: DIANA BREAUX Date: 2022-03-07 10:[address] [facility] CT CSPINE WO CONon CT CSPINE WO [...] MARQUES PATEL Date: 2021-07-10 02:49 Normal [facility] CT HEAD WO CONon 07-10-2021 CT HEAD [...] MARQUES PATEL Date: 2021-07-10 02:44 Normal [facility] XR CHEST 1 Von 07-10-2021 XR CHEST [...] by: MARQUES PATEL Date: 2021-07-10 02:[address] [facility] XR PELVIS 1_2 VIEWSon 2020 XR PELVIS [...] by: MARQUES PATEL Date: 2021-07-10 02:[address] [facility] Vital Signs Date Time Vital Sign Value Performing Clinician Carrol perez 08-03-2023 08:23-0500 Blood Pressure Location Pamela Benson [facility] Encounters Encounter Date Encounter Type Care Provider Facility Start: 11-17-2023 ambulatory Edmond Matias ty:[id number] Start: 11-02-2023 End: 11-02-2023 ambulatory ASHLEY CRESPO Not Available Start: 10-06-2023 End: 10-06-2023 ambulatory REBECCA [facility] Start: 09-23-2023 End: 09-23-2023 ambulatory [facility] Start: 08-26-2023 End: 08-26-2023 ambulatory MOHAMAD [facility] Start: 08-24-2023 End: 08-25-2023 ambulatory Pamela Harvey. Marcelino Facility:[facility] Start: 08-24-2023 End: 08-24-2023 Off-Site Pamela Barcenase [facility] Start: 08-04-2023 End: 08-05-2023 ambulatory Pamela Harvey. Swapnae Facility:[facility] Start: 08-04-2023 End: 08-04-2023 Lab Drop off Pamela M. Swapnae [facility] Start: 08-03-2023 End: 08-04-2023 ambulatory Pamela Benson Facility:[facility] Start: 08-03-2023 End: 08-03-2023 Patient encounter procedure Pamela Benson [facility] Start: 07-27-2023 End: 07-27-2023 ambulatory ASHLEY ZACARIAS Not Available Start: 07-22-2023 ambulatory Pamela Lue Facility:[facility] Start: 07-06-2023 ambulatory Pamela Lue Facility:[facility] Start: 07-05-2023 End: 07-05-2023 ambulatory ASHLEY ZACARIAS [...] Provider Fa cility 05-27-2022 SARS-CoV-2 (COVID-19 ) [id number] Pamela Lue [facility] 06-12-2021 SARS-CoV-2 (COVID-19 ) mRNA BNT-162b2 vax Pamela Lue [facility] 08-13-2020 SARS-CoV-2 (COVID-19 ) mRNA BNT-162b2 vax Pamela Lue [facility] Comment on above: Result Comment: 2023: [id number] 07-23-2020 SARS-CoV-2 (COVID-19 ) mRNA BNT-162b2 vax Pamela Lue [facility] Comment on above: Result Comment: 2023: [id number] Payers Date Payer Category Payer Medicare [id number] 2020 Medicaid [id number] 2020 Medicare [id number] 1955 Unknown [id number] 2.16.84 [id number] 1955 Unknown [id number] 2.16.84 [id number] 1955 Unknown [id number] 1955 Unknown [id number]. [id number] 1955 Unknown [id number] 2.16.8 [id number] 1955 Unknown [id number] 2.16.8 [id number] 1955 Unknown [id number] 2.16.8 [id number] Social History Date Type Detail Facility Start: 08-03-2023 Tobacco smoking status Never s moked tobacco (finding) [facility] Sex Assigned At Female [facility] Functional Status Date Assessment Result Facility 08-03-2023 Functional Status N/A [facility] Clinical Notes 08-03-2023 to 10-06-2023 Note Date & Type Note Facility 10-06-2023 Note Cardiology Clinic No te Chief Complaint: preop risk stratification HPI: PMHx: Steve Waddell is a 68 y.o. female With no reported cardiac history who presents to cardiology clinic at the request of her SUIT [employer] doctor for perioperative restratification prior to D&C and LEEP procedure. Of note: Patient is deaf. 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 She does her best to communicate by lipreading. She is accompanied by her pile driver today, who assists in communication. Today, [...] a past medical history of Diabetes mellitus ([facility]). Surgical History She has no past surgical [...] test 09/09/2023 N (more content not included)... [facility] 10-06-2023 Note Patient here for 2 w [place] follow up SOB, atypical chest pain, and [...] All other systems reviewed and are negative. [facility] 09-23-2023 Note Cardiology Clinic No te Chief Complaint: preop risk stratification HPI: Steve Waddell is a 68 y.o. female With no reported cardiac history who presents to cardiology clinic at the request of her [employer] doctor for perioperative restratification prior to D&C and LEEP procedure. Of note: Patient is deaf. 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 She does her best to communicate by lipreading. She is accompanied by her pile driver today, who assists in communication. Today, [...] a past medical history of Diabetes mellitus ([facility]). Surgical History She has no past surgical [...] -Further recommendations regardi (more content not included)... [facility] 09-23-2023 Note Concerns: Not much s tates some swelling in legs and some back back, chest pain seems to be getting better [facility] 08-26-2023 Note Cardiology Clinic No te Chief Complaint: preop risk stratification HPI: Steve Waddell is a 68 y.o. female With no reported cardiac history who presents to cardiology clinic at the request of her SU[employer] doctor for perioperative restratification prior to D&C and LEEP procedure. Of note: Patient is deaf. 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 She does her best to communicate by lipreading. She is accompanied by her pile driver today, who assists in communication. As per patient and her pile driver, patient denies any cardiac history. She denies any prior history of heart failure, CAD, PCI, or SD. She does report occasional chest pain. Chest [...] a past medical history of Diabetes mellitus ([facility]). Surgical History She has no past surgical [...] HLD -Optimize med (more content not included)... [facility] 08-26-2023 Note New patient here to establish care. Ref from Dr. Crespo for surgery clearance prior to D&C and LEEP procedure. This is scheduled for 08/31 at [facility] per patient. She had labs and EKG last week. Says she gets intermittent chest pain and SOB w/ exertion. Review of Systems HENT: Positive for hearing loss. Cardiovascular: Positive for chest pain (intermittent) and dyspnea on exertion (intermittent). All other systems reviewed and are negative. [facility] 08-04-2023 Evaluation + Plan note Diagnostic Tests PendingUrine Cytology ([facility]) 08/04/23 [facility] 08-03-2023 Hospital Discharge instructions Patient Education [...] including vitamins, herbs, eye drops, creams, and qljt-ehz-njsacep medicines. Any problems you or family members [...] health care provider tells you to. Taking qmwm-xvt-faesfuz medicines, vitamins, herbs, and supplements. General instructions [...] provider. Document Revised: 10/22/2022 Document Reviewed: 10/22/2022 [employer] Patient Education 2022 [employer]. 08/03/2023 09:37:21 Hematuria, Adult Hematuria, Adult Hematuria [...] Follow these instructions at home: Medicines Take vrqf-htm-heaexao and prescription medicines only as told by [...] or the blood stops without treatment. Take uzmx-biz-vsfikgo and prescription medicines only as told by your health care provider. Drink enough fluid to keep your urine pale yellow. This information is not intended to replace advice given to you by your health care provider. Make sure you discuss any questions you have with your health care provider. Document Revised: 02/25/2021 Document Reviewed: 02/25/2021 [employer] Patient Education 2022 [employer]. Follow Up Care 07/13/2023 11:34:42 With:Pamela Benson MD URVaishali, URO Address: When: Unknown Comments:Schedule Cysto, Rt ureteroscopy, possible biopsy, and Rt stent placement [facility] Evaluation + Plan note No data available for this section [facility] Hospital Discharge instructions No data available for this section [facility] Progress note No data available for this section [facility] Summary Purpose Family History No Family History [...] and content) DATE CREATED AUTHOR 07/05/2022 [facility] pital DATE CREATED AUTHOR AUTHOR'S ORGANIZ ATION 11/04/[address] [facility] EPIC DATE CREATED AUTHOR AUTHOR'S ORGANIZ ATION 11/05/2023 [facility] DATE CREATED AUTHOR AUTHOR'S ORGANIZ ATION 11/08/2023 [facility] Patient Care team informatio n (unrecognized section and content) Personnel Name: YAYA LANGLEY JR, DO Address: Address: [address] [place] [address] Personnel Name: YAYA LANGLEY JR, DO Address: Address: [address] [place], [place] [id number] Personnel Name: YAYA LANGLEY JR, DO Address: Address: [address] [place], [place] [id number] FOR RECORDS PERTAINING TO PATIENTS WHO ARE [...] BE BASED ON THE PRIMARY CLINICAL RECORDS. [facility]. provides no warranty or guarantee of the accuracy or completeness of information in this document.
[2023-11-09] VITALS (31 sets, daily range): BP systolic 93–136; BP diastolic 50–72; PULSE 57–89; TEMP 36.5–37.2; O2SAT 90–98
[2023-11-09 01:18] LABS: Glucometer 109 mg/dL (74-106)
--- NOTE | 2023-11-09 02:04 | PC.NURSE ---
2300- pt up to the bathroom, no urine output but brief saturated with blood and clots. Approximately 20mL blood noted along with two clots noted in the hat. 0202- pt up to the bathroom, no urine output but vaginal bleeding with multiple clots.
[2023-11-09 06:28] LABS: Basophils Percent Auto 0.3 % (0.2-2.0); Eosinophils Absolute Auto 0.3 10^3/uL (0.0-0.7); Eosinophils Percent Auto 3.9 % (0.9-7.0); Hematocrit 30.1 % (36.0-48.0); Immature Granulocytes Abs Auto 0.05 10^3/uL (0.00-0.03); Immature Granulocytes Pct Auto 0.7 % (0.0-0.5); Lymphocytes Percent Auto 15.4 % (20.5-60.0); Mean Corpuscular HGB Conc 29.9 g/dL (29.9-35.2); Mean Corpuscular Hemoglobin 27.4 pg (26.7-34.0); Mean Corpuscular Volume 91.5 fL (81.0-99.0); Mean Platelet Volume 8.1 fL (9.5-13.5); Monocytes Absolute Auto 0.8 10^3/uL (0.3-0.8); Monocytes Percent Auto 12.1 % (1.7-12.0); Neutrophils Absolute Auto 4.5 10^3/uL (1.4-6.5); Neutrophils Percent Auto 67.6 % (43.0-75.0); Platelet Count 392 10^3/uL (150-450); Red Blood Count 3.29 10^6/uL (4.20-5.40); Red Cell Distribution Width 15.2 % (11.0-15.0); White Blood Count 6.7 10^3/uL (4.0-11.0)
[2023-11-09 06:32] LABS: Bilirubin Urine NEGATIVE (NEGATIVE); Blood Urine NEGATIVE (NEGATIVE); Clarity Urine CLEAR (CLEAR); Color Urine YELLOW (YELLOW); Glucose Urine UA NEGATIVE (NEGATIVE); Ketones Urine NEGATIVE (NEGATIVE); Leukocyte Esterase Urine NEGATIVE (NEGATIVE); Nitrite Urine NEGATIVE (NEGATIVE); Protein Urine NEGATIVE (NEG/TRACE); Specific Gravity Urine 1.015 (1.005-1.025); Urobilinogen Urine 0.2 EU/dL (0.2-1.0)
[2023-11-09 06:44] LABS: Bacteria Urine NONE SEEN #/HPF (NONE SEEN); Cast Seen? NONE SEEN #/LPF (NONE SEEN); Crystals Seen? None Seen #/HPF (None Seen); Mucus Urine NONE SEEN (NONE SEEN); RBC Urine NONE SEEN #/HPF (0-2); Squamous Epithelial Cell Urine NONE SEEN #/LPF (NONE/RARE); WBC Urine NONE SEEN #/HPF (NONE SEEN)
[2023-11-09 06:46] LABS: Alanine Aminotransferase 18 U/L (14-59); Albumin Level 2.8 g/dL (3.4-5.0); Alkaline Phosphatase 96 U/L (46-116); Anion Gap 13.1; Aspartate Amino Transferase 14 U/L (15-37); BUN Creatinine Ratio 8.9; Bilirubin Total 0.9 mg/dL (0.2-1.0); Calcium 8.9 mg/dL (8.5-10.1); Carbon Dioxide 25.5 mmol/L (21.0-32.0); Chloride 105 mmol/L (98-107); Estimated GFR (African America 53 (>=60); Estimated GFR (Non-African Ame 43 (>=60); Globulin 2.7 g/dL; Glucose 93 mg/dL (74-106); Potassium 4.6 mmol/L (3.5-5.1); Sodium 139 mmol/L (136-145); Total Protein 5.5 g/dL (6.4-8.2)
--- NOTE | 2023-11-09 08:49 | P.HP_ITS ---
<Statement entered by Kendall Bills MD - 11/09/23 10:27> This documentation has been reviewed and approved. With simple and findings as provided by the nurse practitioner's note. Case has been discussed with gynecology. May need to get general surgery and urology involved pending outcome of procedure and stability of her hemoglobin HPI H&P: HPI History of Present Illness Chief complaint: Weakness, GI Bleed, Anemia Narrative: 11/09/23 0815 This is a 68-year-old female patient with a past medical history as outlined below including profound deafness, schizophrenia, DM2, COPD, hyperlipidemia, and recent diagnosis with hydronephrosis, hydroureter, postmenopausal bleeding, and uterus didelphys; who presented to the ED from her [facility] on the instructions of her urologist office due to low hemoglobin on outpatient labs. The patient was asymptomatic at the time of presentation to the ED. She has been recently worked up for bleeding by both urology and gynecology as the source of bleeding is unclear with both gross hematuria and vaginal bleeding suspected. A CT of the abdomen/pelvis obtained on 06/06/23 noted R moderate hydronephrosis with severe R ureteral dilation without evidence of an obstructing stone and urothelial lesion is suspected. It also revealed a septated or didelphic uterus. A follow up transvaginal US noted marked abnormal thickening of the right and left endometrial cavities. An outpatient combined cystoscopy (Dr. Vasquez) and D&C (Dr. Crespo) was scheduled next week at [facility] after a cardiac workup was completed. Workup in the ED revealed profound anemia (6.5) and hypotension (85/48) an hour after arrival in the ED. A fecal occult blood sample was positive but no kinjal GI bleeding was noted. Her UA was negative for infection and for occult blood/RBCs. She was admitted last night to the hospitalist service for ABLA, suspected GI bleeding versus vaginal bleeding as source. 2 units of PRBCs were ordered and transfused last night. At the time of my exam the patient is resting comfortably in bed. She is a little pale, but remains otherwise asymptomatic of her anemia. She cooperates well with exam within the limits of our communication due to her profound deafness. Communication was primarily performed using a whiteboard with some lip reading. The patient is aware that Dr. Crespo has been consulted and she will go for a D&C later this morning. She is n.p.o. pending that procedure. Her hemoglobin is stable this morning at 9.0 after 2 units of PRBCs. We will continue to monitor her hemoglobin closely. Opioid HPI Opioid Management Most Recent Opioid Data: Last Pain Scale 4 11/08/23 23:10 Last Pain Assessment 11/09/23 07:36 Last ORT Total Score 0 11/08/23 22:09 Last ORT Risk Category Low Risk 11/08/23 22:09 Review of Systems ROS Status of ROS 10 or more systems reviewed and unremark able except as noted in history and below [facility] Medical History (Updated 11/09/23 @ 10:06 by Viki Arauz NP) CAD (coronary artery disease) ?I25.10 - Atherosclerotic heart disease of zuni coronary artery without angina pectoris (ICD-10) (HFpEF) heart failure with preserved ejection fraction ?I50.30 - Unspecified diastolic (congestive) heart failure (ICD-10) Heart palpitations ?R00.2 - Palpitations (ICD-10) Diastolic dysfunction ?I51.89 - Other ill-defined heart diseases (ICD-10) Lower extremity edema ?R60.0 - Localized edema (ICD-10) Atypical chest pain ?R07.89 - Other chest pain (ICD-10) Dyspnea ?R06.00 - Dyspnea, unspecified (ICD-10) Poor speech ?R47.9 - Unspecified speech disturbances (ICD-10) High cholesterol ?E78.00 - Pure hypercholesterolemia, unspecified (ICD-10) Diabetes ?E11.9 - Type 2 diabetes mellitus without complications (ICD-10) Schizophrenia ?F20.9 - Schizophrenia, unspecified (ICD-10) COPD (chronic obstructive pulmonary disease) ?J44.9 - Chronic obstructive pulmonary disease, unspecified (ICD-10) Psychological disorder ?F99 - Mental disorder, not otherwise specified (ICD-10) Deaf ?H91.90 - Unspecified hearing loss, unspecified ear (ICD-10) Hypertension ?I10 - Essential (primary) hypertension (ICD-10) Incomplete bladder emptying ?R33.9 - Retention of urine, unspecified (ICD-10) Asthma ?J45.909 - Unspecified asthma, uncomplicated (ICD-10) Hydronephrosis ?N13.30 - Unspecified hydronephrosis (ICD-10) Hydroureter ?N13.4 - Hydroureter (ICD-10) 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 - Other and unspecified doubling of uterus (ICD-10) Postmenopausal bleeding ?N95.0 - Postmenopausal bleeding (ICD-10) Thickened endometrium ?R93.89 - Abnormal findings on diagnostic imaging of other specified body structures (ICD-10) 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 ?R87.613 - High grade squamous intraepithelial lesion on cytologic smear of cervix (HGSIL) (ICD-10) Surgical History (Updated 08/15/23 @ 10:19 by Nathalie Hudson NP) History of appendectomy ?Z90.49 - Acquired absence of other specified parts of digestive tract (ICD- 10) H/O section ?Z98.891 - History of uterine scar from previous surgery (ICD-10) Family History (Updated 08/15/23 @ 10:19 by Nathalie Hudson NP) Other Family history of coronary artery disease Family history of hypertension Family history of stroke Kidney disease Social History (Updated 08/15/23 @ 11:14 by Nathalie Hudson NP) Within the past year, how often did you have a drink containing alcohol: never Score interpretation: A score less than 3 is consistent with normal alcohol consumption. Smoking status: Never smoker Meds Home Medications and Allergies Home Medications ?Medication ?Instructions ?Recorded ?Confirmed ?Type acarbose 100 mg tablet 100 mg PO BID 08/15/23 11/08/23 History acetaminophen 500 mg capsule 1,000 mg PO QPM 08/15/23 11/08/23 History albuterol sulfate 90 mcg/actuation 2 inh inhalation Q6H PRN shortness 08/15/23 11/08/23 History aerosol inhaler (ProAir HFA) of breath or wheezing atorvastatin 40 mg tablet 40 mg PO DAILY 08/15/23 11/08/23 History cholecalciferol (vitamin D3) 125 125 mcg PO DAILY 08/15/23 11/09/23 History mcg (5,000 unit) capsule famotidine 40 mg tablet 40 mg PO DAILY 08/15/23 11/08/23 History ferrous sulfate 325 mg (65 mg 325 mg PO DAILY 08/15/23 11/08/23 History iron) tablet,delayed release fluticasone propionate 50 2 spray intranasal DAILY PRN 08/15/23 11/08/23 History mcg/actuation nasal allergy symptoms spray,suspension (Allergy Relief (fluticasone)) ipratropium bromide 0.02 % 2.5 ml inhalation Q4H PRN 08/15/23 11/08/23 History solution for inhalation shortness of breath or wheezing lumateperone 42 mg capsule 42 mg PO DAILY 08/15/23 11/08/23 History (Caplyta) magnesium hydroxide 400 mg/5 mL 2,400 mg PO DAILY PRN constipation 08/15/23 11/08/23 History oral suspension (Milk of Magnesia) metformin 1,000 mg tablet 1,000 mg PO BID 08/15/23 11/08/23 History montelukast 10 mg tablet 10 mg PO DAILY 08/15/23 11/08/23 History nitroglycerin 400 mcg/spray 1 spray sublingual Q5M PRN chest 08/15/23 11/08/23 History translingual pain ranolazine 500 mg tablet,extended 500 mg PO BID 08/15/23 11/08/23 History release,12 hr sacubitril 24 mg-valsartan 26 mg 1 tab PO BID 08/15/23 11/08/23 History tablet (Entresto) topiramate 25 mg tablet (Topamax) 25 mg PO DAILY 08/15/23 11/08/23 History trazodone 50 mg tablet 25 mg PO DAILY 08/15/23 11/08/23 History dulaglutide 0.75 mg/0.5 mL 0.75 mg subcut QWEEK 11/04/23 11/08/23 History subcutaneous pen injector (Trulicity) ondansetron HCl 4 mg tablet 4 mg PO Q6H PRN nausea and vomiting 11/04/23 11/08/23 History aspirin 81 mg tablet,delayed 81 mg PO DAILY 11/09/23 11/09/23 History release cyanocobalamin (vitamin B-12) 1,000 mcg PO DAILY 11/09/23 11/09/23 History 1,000 mcg tablet medroxyprogesterone 10 mg tablet 10 mg PO DAILY 11/09/23 11/09/23 History Allergies Allergy/AdvReac Type Severity Reaction Status Date / Time No Known Drug Allergies Allergy Verified 11/08/23 19:42 Exam Narrative Exam Narrative: Communication somewhat limited by the pt's profound deafness. She reads some lips and we were able to communicate using a white board. She speaks but is difficult to understand clearly. Constitutional Vital Signs, click to edit/add: Last Vital Signs Temp 97.8 F 11/09/23 04:43 Pulse 65 11/09/23 08:00 Resp 18 11/09/23 07:36 BP 100/64 11/09/23 04:43 Pulse Ox 98 11/09/23 04:43 O2 Del Method Room Air 11/09/23 04:43 Common normals: no apparent distress, oriented x3, alert and well nourished General appearance: cooperative Orientation/consciousness: Yes awake HENMT Common normals: normocephalic, head/scalp atraumatic, hearing grossly normal govind aterally, external nose normal and moist oral mucous membranes General ear: hearing grossly impaired Eye Common normals: PERRL, EOMs intact bilaterally, conjunctivae normal and no scleral icterus Alignment: alignment normal Eyelid: eyelids normal Neck & C-Spine Common normals: full ROM, supple and no JVD Chest Common normals: inspection of chest normal Chest: symmetrical chest wall rise Respiratory Common normals: normal respiratory effort, no retractions, no use of accessory muscles and clear to auscultation bilaterally Effort & inspection: able to speak in complete sentences Auscultation: diminished lung sounds (BLL, mild) Cardio Common normals: no JVD, regular rate, regular rhythm, S1 normal heart sound, S2 normal heart sound, no gallops, no clicks, no murmurs, no rub and peripheral pulses 2+ throughout GI Common normals: Normal to inspection, nondistended, normoactive bowel sounds present, soft to palpation, no hepatosplenomegaly, no masses and no bruits Palpation: tender (Firm, but not distended suprapubic structure-bladder vs uterus) Back & Pelvis Common normals: thoracic and lumbar spine normal to inspection Extremity Common normals: normal capillary refill and no pedal edema General: normal exam except as noted; no clubbing and no cyanosis Neuro Marcus Coma Scale: GCS not evaluated Common normals: CN's II-XII intact bilaterally, moves all extremities, no focal motor deficits and no sensory deficits noted Speech: speech normal Motor exam: strength 5/5 throughout Psych Common normals: mental status grossly normal, thought process normal, affect normal and activity/motor behavior normal Attention/concentration: attention grossly intact Memory/cognition: memory grossly intact Insight: fair Judgement: fair Results Labs Labs: Short CBC 11/08/23 11/09/23 Range/Units 19:56 06:22 WBC 7.2 6.7 (4.0-11.0) 10^3/uL Hgb 6.5 L* 9.0 L (12.0-16.0) g/dL Hct 22.9 L* 30.1 L (36.0-48.0) % Plt Count 420 392 (150-450) 10^3/uL BMP 11/08/23 11/09/23 19:56 06:22 Sodium 137 139 Potassium 4.2 4.6 Chloride 104 105 Carbon Dioxide 23.0 25.5 BUN 13.0 11.0 Creatinine 1.41 H 1.23 H Glucose 103 93 Calcium 8.9 8.9 Liver Function 11/09/23 Range/Units 06:22 Total Bilirubin 0.9 (0.2-1.0) mg/dL AST 14 L (15-37) U/L ALT 18 (14-59) U/L Alkaline Phosphatase 96 (46-116) U/L Albumin 2.8 L (3.4-5.0) g/dL Urine 11/09/23 Range/Units 05:56 Urine Color Yellow (YELLOW) Urine Clarity Clear (CLEAR) Urine pH 6.0 (5.0-9.0) Ur Specific [place] 1.015 (1.005-1.025) Urine Protein Negative (NEG/TRACE) mg/dL Urine Glucose (UA) Negative (NEGATIVE) mg/dL Pulse Oximetry Attestation: I have reviewed the pertinent pulse oximetry results. ECG Attestation: ?I have reviewed the pertinent ECG results. Interpretation: Marked rhythm irregularity, possible nonconducted PAC, SA block, AV block, or sinus pause Sinus rhythm Anterior myocardial infarction, probably old Abnormal ECG Compared to ECG from 08/15/2023 T wave abnormality no longer present Myocardial infarct finding still present Assessment and Plan Assessment and Plan (1) ABLA (acute blood loss anemia): Assessment and Plan: Acute * Adm inpatient * We expect at least a 2 midnight stay for medically necessary hospital care including PRBC transfusions, close monitoring of her Hgb, and emergent D&C per Dr Crespo * Hgb 6.5 on arrival to ED * s/p 2 un PRBCs - repeat Hgb is 9.0 this morning * Source of ABLA (acute on subacute) is unclear * Recent outpatient documentation of hematuria by Dr Vasquez (Urology) and abnormal CT abdomen findings of obstructive uropathy without visualized stone and urothelial lesion is suspected. No hematuria on ED labs last night. Cystoscopy is scheduled for next week at [facility] * Recent outpatient documentation of post menopausal bleeding by Dr Crespo ([employer]) and abnormal Transvaginal US finding of marked thickening of her septated vs didelphyc uterus. Also HGSIL positive on recent Pap smear. D&C was originally co-scheduled with the cystoscopy next week * Fecal occult blood test positive in ED - GI bleeding is also possible, but no evidence kinjal bleeding is noted. Defer to outpatient management/referral for colonoscopy if indicated after current urologic and gynecologic work up is completed * Consult Dr Crespo - we appreciate his assistance with this pt's care * D&C will be performed emergently today to more closely assess for bleeding source and cause of her post menopausal bleeding (assess for neoplastic process) * NS IVF at 100/hr x 1 liter while NPO for procedure * Cardiac work up with 2D Echo and NM stress test were unremarkable and the pt is stable for surgery * Obtain HH q8h to closely monitor for recurring profound anemia * Further transfusions if indicated for Hgb < 7 or if significantly symptomatic * CBC, CMP daily (2) Postmenopausal bleeding: Assessment and Plan: Subacute * Recently documented by Dr Crespo during outpatient evaluation - see above (3) Hydronephrosis: Assessment and Plan: Subacute * As noted on CT abdomen/pelvis imaging on 06/06/23 * Defer to outpatient management as previously scheduled per Dr Vasquez at [facility] next week Qualifiers: Hydronephrosis type: with other ureteral stricture Qualified Code(s): N13.1 - Hydronephrosis with ureteral stricture, not elsewhere classified (4) Occult blood in stools: Assessment and Plan: Acute * FOB positive in the ED * No evidence of kinjal bleeding * Defer possible GI work up to outpatient management if indicated after urologic and gynecologic procedures are completed (5) Diabetes: Assessment and Plan: Chronic * Hold home metformin, acarbose, and Trulicity during inpatient admission * ACHS glucometer checks * Med SSI for glucose correction * Resume CC diet after D&C today, currently NPO Qualifiers: Diabetes mellitus complication status: with other specified complication Diabetes mellitus fdc insulin use: without fdc use Diabetes nemo itus type: type 2 Qualified Code(s): E11.69 - Type 2 diabetes mellitus with other specified complication (6) Schizophrenia: Assessment and Plan: Chronic * Continue home Caplyta and Topamax Qualifiers: Schizophrenia type: unspecified Qualified Code(s): F20.9 - Schizophrenia, unspecified (7) (HFpEF) heart failure with preserved ejection fraction: Assessment and Plan: Chronic * Recent 2D echo w/ preserved LVEF of 55-60%, Grade 2 diastolic dysfunction, Normal RV size and systolic function * Pt is not on diuretic at home and clinically is euvolemic * Monitor w/ daily weights and strict I&O * Add BNP on to ED labs - WNL * Gentle IVF at 100/hr x 1 liter while NPO Qualifiers: Heart failure chronicity: chronic Qualified Code(s): I50.32 - Chronic diastolic (congestive) heart failure (8) Deaf: Assessment and Plan: Chronic * Communicates through writing and lip reading * Consider car detailer if needed for more complete communication Qualifiers: Laterality: bilateral Qualified Code(s): H91.93 - Unspecified hearing loss, bilateral (9) COPD (chronic obstructive pulmonary disease): Assessment and Plan: Chronic * Continue home albuterol and Atrovent * Stable - No SOB or hypoxia at this time Qualifiers: COPD type: unspecified COPD Qualified Code(s): J44.9 - Chronic obstructive pulmonary disease, unspecified (10) High cholesterol: Assessment and Plan: Chronic * Continue home statin (11) CAD (coronary artery disease): Assessment and Plan: Chronic * Hold home daily ASA d/t ABLA * Hold home Entresto for now d/t hypotension/soft BPs - likely hypovolemic in setting of active bleeding * Continue home ranolazine for chronic chest pain Urinary Catheter Management Urinary Catheter Management Urethral: Cath placed during this visit: yes Urethral indwelling: Yes Reason for continuing: surgical procedure Insertion date: 11/09/23 Insertion time: 06:29
--- NOTE | 2023-11-09 10:00 | SWNOTE1 ---
Pt is from [facility]
[2023-11-09] MEDS: 0.9 % SODIUM CHLORIDE 1,000 ML 100 ML IV (10:20)
[2023-11-09] MEDS: PANTOPRAZOLE SODIUM 40 MG VIAL IV ×2 (10:21→21:20)
--- NOTE | 2023-11-09 10:32 | SWNOTE1 ---
Updates sent to Tiara at [facility] for her to send on to [facility]. Updates included face sheet, ER note, physician note, labs, vitals, diagnostic imaging, nursing notes, and meds.
[2023-11-09 11:25] LABS: Glucometer 79 mg/dL (74-106)
[2023-11-09] MEDS: LACTATED RINGER'S SOLUTION 1,000 ML 50 ML IV (11:58)
--- NOTE | 2023-11-09 13:04 | PM.ONB ---
Brief Operative Note Date of procedure: 11/09/23 Pre-op diagnosis general: pmb, excessive vaginal discharge with odor, vaginal bleeding, acute blood loss, cervical dysplasia Post-op diagnosis: other (mass noted along the lateral aspect of the vagina adjacent to cervix at 7 position, vaginal discharge with odor seen, no obvious fistula) Procedure: NAME OF PROCEDURE: [ exam under anesthesia ] PROCEDURE: The patient was taken back to the Operating Room where she was prepped and draped in normal sterile fashion after being placed under general anesthesia without difficulty. She was also placed in the dorsal lithotomy position. narrowing of vaginal opening, the cervical os was stenotic and flush with vaginal wall, unable to peform d&c hysteroscopy. bimanual exam demonstrated a mass noted along the lateral aspect of the vagina adjacent to the cervix at 7 position excellent hemostasis was noted. All instruments were removed from the patient's vagina. please note vaginal discharge with odor, could not identify a fistula Anesthesia: MAC Surgeon: Kobe Crespo Estimated blood loss (mL): 15 Pathology: other (vaginal blood products) Condition: stable Disposition: PACU Urinary Catheter Management Urinary Catheter Management Urethral: Cath placed during this visit: yes Urethral indwelling: Yes Reason for continuing: acute urinary retention Insertion date: 11/09/23 Insertion time: 06:29
--- NOTE | 2023-11-09 13:42 | SWNOTE1 ---
SW attempted to see pt, she was still back in surgery at this time.
--- NOTE | 2023-11-09 13:59 | PC.NURSE ---
No active vaginal drainage noted
--- NOTE | 2023-11-09 14:01 | PC.NURSE ---
Has diaper in place with small amount bloody drainage on diaper; no active vaginal drainage noted
--- NOTE | 2023-11-09 14:05 | PC.NURSE ---
No active vaginal drainage noted
--- NOTE | 2023-11-09 14:09 | PC.NURSE ---
No active vaginal drainage noted
[2023-11-09 14:41] LABS: Hematocrit 29.8 % (36.0-48.0); Hemoglobin 8.9 g/dL (12.0-16.0)
--- NOTE | 2023-11-09 15:22 | SWNOTE1 ---
Pt is being transferred to [facility]. SW notified pt's son, Landen. Important Message from [employer] reviewed and discussed with domenic's son. Pt's son verbalized understanding and signed the form. Original placed in pt's room and copy placed in patient?s chart.
--- NOTE | 2023-11-09 15:24 | SWNOTE1 ---
MARCELO also notified Tiara at [facility] so she can pass on to [facility].
[2023-11-09] MEDS: ATORVASTATIN CALCIUM 40 MG TABLET PO (15:27)
[2023-11-09] MEDS: CHOLECALCIFEROL (VITAMIN D3) 125 MCG/5,000 UNIT TABLET PO (15:27)
[2023-11-09] MEDS: TOPIRAMATE 25 MG TABLET PO (15:27)
[2023-11-09] MEDS: FOLIC ACID/VIT B6/VIT B12 TABLET 1 TAB PO (15:27)
[2023-11-09] MEDS: FERROUS SULFATE 325 MG TABLET PO (15:27)
[2023-11-09] MEDS: RANOLAZINE 500 MG TAB.ER.12H PO ×2 (15:28→21:20)
[2023-11-09 16:00] LABS: Glucometer 86 mg/dL (74-106)
--- NOTE | 2023-11-09 19:57 | PC.NURSE ---
attempted to call son to update him on time of transfer. Message left
[2023-11-09 20:10] LABS: Glucometer 188 mg/dL (74-106)
[2023-11-09] MEDS: MONTELUKAST SODIUM 10 MG TABLET PO (21:20)
[2023-11-09] MEDS: TRAZODONE HCL 50 MG TABLET 25 MG PO (21:20)
[2023-11-10 02:00] VITALS: PULSE 78
== END 2023-11-10 02:29 | disposition short-term general hospital (02) | DRG 760 ==
LOC: ER 21:27 → MS 22:01
PROVIDERS: Obstetrics & Gynecology; Registered Nurse; Admitting Provider Family Medicine; Emergency Provider Emergency Medicine; Visit Provider Nurse Practitioner
PROC: 0UJHXZZ Inspection of Vagina and Cul-de-sac, External Approach (ICD-10-PCS; principal; 2023-11-09 12:00)
DX: N89.9 Noninflammatory disorder of vagina, unspecified (principal); D62 Acute posthemorrhagic anemia; N13.1 Hydronephrosis with ureteral stricture, not elsewhere classified; I50.32 Chronic diastolic (congestive) heart failure; E78.00 Pure hypercholesterolemia, unspecified; E11.9 Type 2 diabetes mellitus without complications; F20.9 Schizophrenia, unspecified; J44.9 Chronic obstructive pulmonary disease, unspecified; H91.90 Unspecified hearing loss, unspecified ear; Q51.28 Other and unspecified doubling of uterus; Z90.49 Acquired absence of other specified parts of digestive tract; Z98.891 History of uterine scar from previous surgery; Z79.899 Other long term (current) drug therapy; Z79.84 Long term (current) use of oral hypoglycemic drugs; Z79.82 Long term (current) use of aspirin; R93.89 Abnormal findings on diagnostic imaging of other specified body structures; R87.613 High grade squamous intraepithelial lesion on cytologic smear of cervix (HGSIL); N95.0 Postmenopausal bleeding; R31.0 Gross hematuria; I25.10 Atherosclerotic heart disease of native coronary artery without angina pectoris; R19.5 Other fecal abnormalities; N93.9 Abnormal uterine and vaginal bleeding, unspecified; I11.0 Hypertensive heart disease with heart failure; R47.9 Unspecified speech disturbances; F99 Mental disorder, not otherwise specified; Z79.85 Long-term (current) use of injectable non-insulin antidiabetic drugs
CPT/HCPCS: 36415; 36430; 51702; 51798; 80048; 80053; 81001; 82948; 83880; 85014; 85018; 85025; 86850; 86900; 86901; 88305; 93005; 96374; 96376; 97161; 97165; 97530; 99285; G0328; J1094; J2704; P9016

== ENCOUNTER 2023-11-30 02:04 | Outpatient (REF) | payer MEDICARE, MEDICAID, SELFPAY ==
--- OUTSIDE RECORDS SUMMARY | 2023-11-30 02:14 | XMS_ITS | CCD ---
Author Organization [facility] Care Team Providers Care Administrative Sales Assistant Name Role Phone MARKER, DR SALINAS Consulting Unavailable VALONE, DR JAVIER Primary Care Unavailable MARKER, DR SALINAS Attending Unavailable MARKER, DR SALINAS Admitting Unavailable BENEDICT, DR TINEO Admitting Unavailable BENEDICT, DR TINEO Attending Unavailable VALONE, DR JAVIER Attending Unavailable VALJUAN MIGUEL, DR JAVIER Admitting Unavailable SHIVAM, DR JAVIER Primary Care Unavailable ROSALBA, DR NANI Haley Admitting Unavailalice NAVARRETE, DR NANI Haley Attending UnavailANDER Lance JR Primary Care Physician KOBE CRESPO Attending Unavailable KOBE CRESPO Attending Unavailable KOBE CRESPO Attending Unavailable KOBE CRESPO Attending Unavailable Kobe Crespo Attending Unavailable Kobe Crespo Admitting Unavailable Ander Langley DO Primary Care Provider Pamela Benson Attending Unavailable Kobe CRESPO Referring Unavailable Pamela Benson Attending Unavailable Pamela Benson Admitting Unavailable Edmond KUHN Attending Unavailable Pamela Benson Attending Unavailable Unavailable Primary Care Provider UnavailREBECCA Lopez Attending Unavailable GUERDA AGUILAR Attending Unavailable GUERDA AGUILAR Attending Unavailable GUERDA AGUILAR Attending Unavailable JAYASHREE AVILEZ Admitting Unavailable JAYASHREE AVILEZ Attending Unavailable YSABEL DUQUE Referring Unavailable ANDER LANGLEY Primary Care Unavailable EL AHMADI Attending Unavailable Medications Current Medications Medication Drug Class(es) Dates Sig (Normalized) Sig (Original) acarbose 50 mg oral tablet (4 sources) alpha-Glucosidase Inhibitor Start: 11-10-2023 acarbose (PRECOSE) tablet 100 mg Start: 08-03-2023 acarbose 100 m g oral tablet Refills(s) 0 Start Date: 08/03/23 Status: Ordered acetaminophen 500 mg oral ta blet (4 sources) Start: 11-10-2023 acetaminophen (TYLENOL) tablet 1,000 mg Start: 08-03-2023 acetaminophen Refills(s) 0 Start Date: 08/03/23 Status: Ordered [id number] 200 actuat albuterol 0.09 mg/actuat metered dose inhaler (4 sources) beta2-Adrenergic Agonist Start: 11-10-2023 albuterol sulfate HFA (PROVENTIL;VENTOLIN;PROAIR) 108 (90 Base) MCG/ACT inhaler 2 puff Start: 09-28-2012 take 2.5 mg by inhal ation every six hours albuterol 0.083% Inh Joycelyn 3 mL UD 2.5 mg, 3 mL, Inhalation, q6hr, Refill(s) 0 Start Date: 09/28/12 Status: Ordered albuterol 0.833 mg/ml / ipratropium bromide 0.167 mg/ml inhalation solution (1 source) Anticholinergic, beta2-Adrenergic Agonist Start: 11-10-2023 ipratropium 0.5 mg-albuterol 2.5 mg (DUONEB) nebulizer solution 1 Dose Aspirin (3 sources) Platelet Aggregation Inhibitor, Nonsteroidal [...] tab(s), Oral, Daily, Refills(s) 0 Start Date: 10/7/13 Status: Ordered cyclobenzaprine (3 sources) Muscle Relaxant [...] Refills(s) 0 Start Date: 08/03/23 Status: Ordered fluticasone propionate 0.05 mg/actuat metered dose nasal spray (1 source) Corticosteroid Start: 11-10-2023 fluticasone (FLONASE) 50 MCG/ACT nasal spray 2 spray glucagon (rdna) 1 mg injection (1 source) Antihypoglycemic Agent Start: 11-10-2023 glucagon injection 1 mg 1000 ml glucose 100 mg/ml injection (3 sources) Start: 11-10-2023 dextrose 10 % infusion Start: 11-10-2023 dextrose bolus 10% 125 mL Start: 11-10-2023 glucose chewab le tablet 16 g insulin lispro 100 unt/ml injectable solution (1 source) Insulin Analog Start: 11-10-2023 insulin lispro (HUMALOG) injection vial 0-10 Units lumateperone 42 mg oral capsule (4 sources) Start: 11-11-2023 Lumateperone T osylate (CAPLYTA) capsule 42 mg (Patient Supplied) Start: 08-03-2023 Caplyta 42 mg oral capsule Refills(s) 0 Start Date: 08/03/23 Status: Ordered metFORMIN hydrochloride 1000 mg oral tablet (3 sources) Biguanide Start: 08-03-2023 metformin 1000 mg Tab Refills(s) 0 Start Date: 08/03/23 Status: Ordered montelukast 10 mg oral tablet (4 sources) Leukotriene Receptor Antagonist Start: 11-10-2023 montelukast (SINGULAIR) tablet 10 mg Start: 08-03-2023 montelukast 10 mg Tab Refills(s) 0 Start Date: 08/03/23 Status: Ordered nitroglycerin 0.4 mg sublingual tablet (1 source) Nitrate Vasodilator Start: 11-10-2023 nitroGLYCERIN (NITROSTAT) SL tablet 0.4 mg OLANZapine 10 mg oral tablet (3 sources) Atypical Antipsychotic Start: 07-22-2012 take 1 tablet by mouth once daily ZyPREXA 10 mg Tab 10 mg = 1 tab(s), Oral, Daily, # 30 tab(s), Refills(s) 0 Start Date: 07/22/12 Status: Ordered ondansetron (ZOFRAN-ODT) disintegrating tablet 4 mg (1 source) Start: 11-10-2023 ondansetron (ZOFRAN-ODT) disintegrating tablet 4 mg perphenazine 4 mg oral tablet (3 sources) [...] mg / valsartan 26 mg oral tablet (4 sources) Angiotensin 2 Receptor Man Start: 11-10-2023 sacubitril-valsart an (ENTRESTO) 24-26 MG per tablet 1 tablet Start: 08-03-2023 Entresto 24 mg -26 mg oral tablet Refill(s) 0 Start Date: 08/03/23 Status: Ordered sennosides, senior care 8.6 mg oral tablet (1 source) Start: 11-10-2023 senna (SENOKOT ) tablet 17.2 mg topiramate 25 mg oral tablet (1 source) Start: 11-10-2023 topiramate (TOPAMAX) tablet 25 mg traMADol hydrochloride 50 mg oral tablet (3 sources) Opioid Agonist Start: 09-23-2011 take 1 tablet by mouth once daily Ultram 50 mg, Oral, Daily, tab(s), Refills(s) 0 Start Date: 09/23/11 Status: Ordered Completed/Discontinued Medications Medication Drug Class(es) Dates Sig (Normalized) Sig (Original) famotidine (PEPCID) 40 mg in sodium chloride (PF) 0.9 % 10 mL injection (1 source) Start: 11-10-2023 End: 11-10-2023 famotidine (PEPCID) 40 mg in sodium chloride (PF) 0.9 % 10 mL injection gadoteridol (PROHANCE) injection 17 mL (1 source) Start: 11-10-2023 End: 11-10-2023 gadoteridol (PROHANCE) injection 17 mL 1 ml HYDROmorphone hydrochloride 1 mg/ml cartridge (1 source) Opioid Agonist Start: 11-11-2023 End: 11-11-2023 HYDROmorphone (DILAUDID) injection 0.5 mg 50 ml sodium chloride 9 mg/ml injection (4 sources) Start: 11-10-2023 End: 11-10-2023 sodium chloride 0.9 % bolus 30 mL Start: 11-10-2023 sodium chlorid e flush 0.9 % injection 5-40 mL Start: 11-10-2023 End: 11-12-2023 0.9 % sodium chloride infusi on Problems Active Problems Problem Classification Problem Date Documented Date Episodic/Chronic Asthma (3 sources) Asthma 04-17-2012 Chronic Cancer of cervix (2 sources) Overlapping malignant neoplasm of uterine cervix; Translations: [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 uteri] 11-25-2023 Chronic Cancer of cervix (1 source) Abnormal histological finding in specimen from female genital organ; Translations: [Carcinoma in situ of cervix, unspecified] 11-23-2023 Episodic Essential hypertension (5 sources) Hypertensive disorder; Translations: [Essential (primary) hypertension] Onset: 4 12-27-2013 Chronic 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 Genitourinary symptoms and ill-defined conditions (9 sources) Blood in urine; Translations: [Gross hematuria] Onset: Episodic Hypertension with complications and secondary hypertension (4 sources) Hypertensive heart disease with heart failure; Translations: [Hypertensive heart disease without [...] disorders (3 sources) Hearing loss 09-21-2013 Chronic Other female genital disorders (2 sources) Vaginal mass; Translations: [Other specified noninflammatory disorders of vagina] Onset: 4 11-10-2023 Episodic Screening and history of mental health and [...] Test Name Value Interpretation Reference Range Facility OUTSIDE SURG PATH SLIDE REVI EWon 11-25-2023 CASE REPORT Normal [facility] Comment on above: Order Comment: Speci men Type: FORMALIN-FIXED PARAFFIN-EMBEDDED TISSUE SPECIMEN Ordering Facility: Outside Review Address: , , Result Comment: Surg ica Pathology Report Case: [id number] Authorizing Provider: Mariam Mckinley MD Collected: 11/25/2023 02:11 PM Ordering Location: [facility] Received: 11/25/2023 02:12 PM [facility] Pathologist: Ernestina Parada MD Specimen: Slide(s), 5 SLIDES [id number] Performed By: #### L [id number] #### [facility] CLIA [id number] [address] [place] [address] [place] DIAGNOSIS COMMENT 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 Normal [facility] Comment on above: Order Comment: Speci men Type: FORMALIN-FIXED PARAFFIN-EMBEDDED TISSUE SPECIMEN Ordering Facility: AP Outside Review Address: , , Performed By: #### L [id number] #### [facility] CLIA [id number] [address] [place] [address] FINAL DIAGNOSIS Normal [facility] Comment on above: Order Comment: Speci men Type: FORMALIN-FIXED PARAFFIN-EMBEDDED TISSUE SPECIMEN Ordering Facility: AP Outside Review Address: , , Result Comment: Outs miguel angel case from [place], [place] (VS [id number], collected 11/11/2023) A. Left cervix, biopsy: - Invasive squamous cell carcinoma, see comment. B. 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 Performed By: #### L [id number] #### [facility] CLIA [id number] [address] [place] [address] FINAL PERFORMING LAB Normal [facility] Comment on above: Order Comment: Speci men Type: FORMALIN-FIXED PARAFFIN-EMBEDDED TISSUE SPECIMEN Ordering Facility: AP Outside Review Address: , , Result Comment: Diag nostic interpretation performed at [facility], [address] [place] [address] CLIA# [id number] Crane Man: Navdeep Pickering M.D. Performed By: #### L [id number] #### [facility] CLIA [id number] [address] [place] [address] OF [facility] Orders Onlyon 11-21-2023 Orders Only [id number] Kelby Johnson 1955 F Date Provider Department Center 11/21/2023 MARV CASAREZ Family History Problem Relation Age of Onset Coronary artery disease Mother Cancer Father Diabetes Father Family Status - Relation Status Age at Mother Father Normal [facility] Consultation Noteon 11-14-19 24 Consultation Note [id number] IFF Normal [facility] Glucose,Whole Bloodon 2023 Glucose [Mass/Vol] 124 mg/dL High 65-105 [facility] Glucose [Mass/Vol] 87 mg/dL Normal 65-105 [facility] POC Glucose Fingerstickon Glucose [Mass/Vol] 124 mg/dL High 65 - 105 mg/dL [facility] Interpretation and review of laboratory results Abnormal [facility] Glucose [Mass/Vol] 87 mg/dL 65 - 105 mg/dL [facility] CBC with Auto Differentialon 11-11-2023 Basophils (Bld) [#/Vol] 0.03 10*3/uL [facility] Basophils/100 WBC (Bld) 0 % 0 - 2 % [facility] Eosinophils (Bld) [#/Vol] 0.31 10*3/uL [facility] Eosinophils/100 WBC (Bld) 5 % High 1 - 4 % [facility] Erythrocyte distribution width (RBC) [Ratio] 16.1 % High 11.8 - 14.4 % [facility] Hematocrit (Bld) [Volume fraction] 31.6 % Low 36.3 - 47.1 % [facility] Hemoglobin (Bld) [Mass/Vol] 9.0 g/dL Low 11.9 - 15.1 g/dL [facility] Immature granulocytes (Bld) [#/Vol] 0.04 10*3/uL [facility] Immature granulocytes/100 WBC (Bld) 1 % High 0 [facility] Interpretation and review of laboratory results Abnormal [facility] Lymphocytes/100 WBC (Bld) 18 % Low 24 - 43 % [facility] Lymphocytes/100 WBC (Bld) 1.19 % [facility] MCH (RBC) [Entitic mass] 27.4 pg 25.2 - 33.5 pg [facility] MCHC (RBC) [Mass/Vol] 28.5 g/dL 28.4 - 34.8 g/dL [facility] MCV (RBC) [Entitic vol] 96.0 fL 82.6 - 102.9 fL [facility] Monocytes/100 WBC (Bld) 14 % High 3 - 12 % [facility] Monocytes/100 WBC (Bld) 0.91 % [facility] Neutrophils/100 WBC (Bld) 62 % 36 - 65 % [facility] Nucleated RBC/100 WBC (Bld) [Ratio] 0.0 % 0.0 per 100 WBC [facility] [employer] [facility] Platelet mean volume (Bld) [Entitic vol] 8.6 fL 8.1 - 13.5 fL [facility] Platelets (Bld) [#/Vol] 413 10*3/uL [facility] RBC (Bld) [#/Vol] 3.29 10*6/uL Low 3.95 - 5.1 1 m/uL [facility] RBC (Bld) [#/Vol] ANISOCYTOSIS PRESENT [facility] Segmented neutrophils/100 WBC (Bld) 4.27 % [facility] WBC other (Bld) [#/Vol] 6.8 [facility] CBC with Diffon 11-11-2023 Abs. Basophil 0.03 k/uL Normal 0.00-0.20 [facility] Comment on above: Performed By: #### C DP, CP #### [facility] [address] [place] [address] Key Maker: Guillaume Roman MD Abs.Imm.Granulocyte 0.04 k/uL Normal 0.00-0.30 [facility] Comment on above: Performed By: #### C DP, CP #### [employer] [address] [place] [phone] Key Maker: Guillaume Roman MD Abs.Neutrophil (Seg) 4.27 k/uL Normal 1.50-8.10 [facility] Comment on above: Performed By: #### C DP, CP #### [employer] [address] [place] [phone] Key Maker: Guillaume Roman MD Basophils/100 WBC (Bld) 0 % Normal 0-2 [facility] Comment on above: Performed By: #### C DP, CP #### [address] [id number] Key Maker: Guillaume Roman MD Eosinophils (Bld) [#/Vol] 0.31 10*3/uL Normal 0.00-0.44 [facility] Comment on above: Performed By: #### C DP, CP #### [address] [address] Key Maker: Guillaume Roman MD Eosinophils/100 WBC (Bld) 5 % High 1-4 [facility] Comment on above: Performed By: #### C DP, CP #### [address] [address] Key Maker: Guillaume Roman MD Erythrocyte distribution width (RBC) [Ratio] 16.1 % High 11.8-14.4 [facility] Comment on above: Performed By: #### C DP, CP #### [address] [address] Key Maker: Guillaume Roman MD Hematocrit (Bld) [Volume fraction] 31.6 % Low 36.3-47.1 [facility] Comment on above: Performed By: #### C DP, CP #### [place] [address] Key Maker: Guillaume Roman MD Hemoglobin (Bld) [Mass/Vol] 9.0 g/dL Low 11.9-15.1 [facility] Comment on above: Performed By: #### C DP, CP #### [address] [address] Key Maker: Guillaume Roman MD Immature granulocytes/100 WBC (Bld) 1 % High 0 [facility] Comment on above: Performed By: #### C DP, CP #### [place] [address] Key Maker: Guillaume Roman MD Lymphocytes (Bld) [#/Vol] 1.19 10*3/uL Normal 1.10-3.70 [facility] Comment on above: Performed By: #### C DP, CP #### [place] [address] Key Maker: Guillaume Roman MD Lymphocytes/100 WBC (Bld) 18 % Low 24-43 [facility] Comment on above: Performed By: #### C DP, CP #### [place] [address] Key Maker: Guillaume Roman MD MCH (RBC) [Entitic mass] 27.4 pg Normal 25.2-33.5 [facility] Comment on above: Performed By: #### C DP, CP #### [place] [address] Key Maker: Guillaume Roman MD MCHC (RBC) [Mass/Vol] 28.5 g/dL Normal 28.4-34.8 [facility] Comment on above: Performed By: #### C DP, CP #### [place] [address] Key Maker: Guillaume Roman MD MCV (RBC) [Entitic vol] 96.0 fL Normal 82.6-102.9 [facility] Comment on above: Performed By: #### C DP, CP #### [place] [address] Key Maker: Guillaume Roman MD Monocytes (Bld) [#/Vol] 0.91 10*3/uL Normal 0.10-1.20 [facility] Comment on above: Performed By: #### C DP, CP #### [address] [address] Key Maker: Guillaume Roman MD Monocytes/100 WBC (Bld) 14 % High 3-12 [facility] Comment on above: Performed By: #### C DP, CP #### [address] [address] Key Maker: Guillaume Roman MD Neutrophil (Seg) 62 % Normal 36-65 [facility] Comment on above: Performed By: #### C DP, CP #### [address] [address] Key Maker: Guillaume Roman MD NRBC Automated 0.0 per [address] [facility] Comment on above: Performed By: #### C DP, CP #### [address] [address] Key Maker: Guillaume Roman MD Platelet mean volume (Bld) [Entitic vol] 8.6 fL Normal 8.1-13.5 [facility] Comment on above: Performed By: #### C DP, CP #### [address] [address] Key Maker: Guillaume Roman MD Platelets (Bld) [#/Vol] 413 10*3/uL Normal 138-453 [facility] Comment on above: Performed By: #### C DP, CP #### [address] [address] Key Maker: Guillaume Roman MD RBC (Bld) [#/Vol] 3.29 10*6/uL Low 3.95-5.11 [facility] Comment on above: Performed By: #### C DP, CP #### [address] [address] Key Maker: Guillaume Roman MD RBC morphology finding Nom (Bld) ANISOCYTOSIS PRESENT Normal [facility] Comment on above: Performed By: #### C DP, CP #### [address] [address] Key Maker: Guillaume Roman MD WBC (Bld) [#/Vol] 6.8 10*3/uL Normal 3.5-11.3 [facility] Comment on above: Performed By: #### C DP, CP #### [address] [address] Key Maker: Guillaume Roman MD Comp Metabolic Profon 2023 Albumin [Mass/Vol] 3.6 g/dL Normal 3.5-5.2 [facility] Comment on above: Performed By: #### C DP, CP #### [address] [address] Key Maker: Guillaume Roman MD Albumin/Glob Ratio 2.0 Normal 1.0-2.5 [facility] Comment on above: Performed By: #### C DP, CP #### [address] [address] Key Maker: Guillaume Roman MD Alkaline Phos 93 U/L Normal 35-104 [facility] Comment on above: Performed By: #### C DP, CP #### [address] [address] Key Maker: Guillaume Roman MD ALT [Catalytic activity/Vol] 14 U/L Normal 10-35 [facility] Comment on above: Performed By: #### C DP, CP #### [address] [address] Key Maker: Guillaume Roman MD Anion gap [Moles/Vol] 10 mmol/L Normal 9-16 [facility] Comment on above: Performed By: #### C DP, CP #### [address] [address] Key Maker: Guillaume Roman MD AST [Catalytic activity/Vol] 33 U/L Normal 10-35 [facility] Comment on above: Performed By: #### C DP, CP #### [address] [address] Key Maker: Guillaume Roman MD Bilirubin [Mass/Vol] 0.3 mg/dL Normal 0.00-1.20 [facility] Comment on above: Performed By: #### C DP, CP #### [address] [address] Key Maker: Guillaume Roman MD Calcium [Mass/Vol] 8.8 mg/dL Normal 8.6-10.4 [facility] Comment on above: Performed By: #### C DP, CP #### [address] [address] Key Maker: Guillaume Roman MD Chloride [Moles/Vol] 109 mmol/L High 98-107 [facility] Comment on above: Performed By: #### C DP, CP #### [address] [address] Key Maker: Guillaume Roman MD CO2 [Moles/Vol] 19 mmol/L Low 20-31 [facility] Comment on above: Performed By: #### C DP, CP #### [address] [address] Key Maker: Guillaume Roman MD Creatinine [Mass/Vol] 1.0 mg/dL High 0.50-0.90 [facility] Comment on above: Performed By: #### C DP, CP #### [address] [address] Key Maker: Guillaume Roman MD GFR/1.73 sq M.predicted among non-blacks MDRD (S/P/Bld) [Vol rate/Area] 59 mL/min/{1.73_m2} Low >60 [facility] Comment on above: Result Comment: These results are not intended for use in patients <18 years of age. eGFR results are calculated without a race factor using the 2020 CKD-EPI equation. Careful clinical correlation is recommended, particularly when comparing to results calculated using previous equations. The CKD-EPI equation is less accurate in patients with extremes of muscle mass, extra-renal metabolism of creatine, excessive creatine ingestion, or following therapy that affects renal tubular secretion. Performed By: #### C DP, CP #### [address] [address] Key Maker: Guillaume Roman MD Glucose [Mass/Vol] 97 mg/dL Normal 74-99 [facility] Comment on above: Performed By: #### C DP, CP #### [facility] [address] [address] Key Maker: Guillaume Roman MD Potassium [Moles/Vol] 4.3 mmol/L Normal 3.7-5.3 [facility] Comment on above: Result Comment: SPEC IMEN SLIGHTLY HEMOLYZED, RESULTS MAY BE ADVERSELY AFFECTED. Performed By: #### C DP, CP #### [facility] [address] [place] [phone] Key Maker: Guillaume Roman MD Protein [Mass/Vol] 5.4 g/dL Low 6.6-8.7 [facility] Comment on above: Performed By: #### C DP, CP #### [facility] [address] [place] [address] Key Maker: Guillaume Roman MD Sodium [Moles/Vol] 138 mmol/L Normal 136-145 [facility] Comment on above: Performed By: #### C DP, CP #### [facility] [address] [place] [phone] Key Maker: Guillaume Roman MD Urea nitrogen [Mass/Vol] 11 mg/dL Normal 8-23 [facility] Comment on above: Performed By: #### C DP, CP #### [facility] [employer] [address] [place] [address] Key Maker: Guillaume Roman MD Comprehensive Metabolic Pane [facility] 11-11-2023 Albumin [Mass/Vol] 3.6 g/dL 3.5 - 5.2 g/dL [facility] Albumin/Globulin [Mass ratio] 2.0 {ratio} 1.0 - 2.5 [facility] ALP [Catalytic activity/Vol] 93 U/L 35 - 104 U/L [facility] ALT [Catalytic activity/Vol] 14 U/L 10 - 35 U/L [facility] Anion gap [Moles/Vol] 10 mmol/L 9 - 16 mmol/L [facility] AST [Catalytic activity/Vol] 33 U/L 10 - 35 U/L [facility] Bilirubin [Mass/Vol] 0.3 mg/dL 0.00 - 1.20 mg/dL [facility] Calcium [Mass/Vol] 8.8 mg/dL 8.6 - 10. 4 mg/dL [facility] Chloride [Moles/Vol] 109 mmol/L High 98 - 10 7 mmol/L [facility] CO2 [Moles/Vol] 19 mmol/L Low 20 - 31 mmol/L [facility] Creatinine [Mass/Vol] 1.0 mg/dL High 0.50 - 0.90 mg/dL [facility] Est, Glom Filt Rate 59 Low - [facility] Comment on above: These results are not intended for use in patients <18 years of age. eGFR results are calculated without a race factor using the 2020 CKD-EPI equation. Careful clinical correlation is recommended, particularly when comparing to results calculated using previous equations. The CKD-EPI equation is less accurate in patients with extremes of muscle mass, extra-renal metabolism of creatine, excessive creatine ingestion, or following therapy that affects renal tubular secretion. Glucose [Mass/Vol] 97 mg/dL 74 - 99 mg/dL [facility] Interpretation and review of laboratory results Abnormal [facility] Potassium [Moles/Vol] 4.3 mmol/L 3.7 - 5.3 mmol/L [facility] Comment on above: SPECIMEN SLIGHTLY HE MOLYZED, RESULTS MAY BE ADVERSELY AFFECTED. Protein [Mass/Vol] 5.4 g/dL Low 6.6 - 8.7 g/dL [employer] Sodium [Moles/Vol] 138 mmol/L 136 - 145 mmol/L [facility] Urea nitrogen [Mass/Vol] 11 mg/dL 8 - 23 mg/dL [facility] Consultation Noteon 11-11-19 24 Consultation Note [id number]#1.00T IFF Normal [facility] EKG 12 LeadOrdered By: Butch Nascimento on 11-11-2023 Atrial Rate 62 BPM [employer] Work Phone: P [place] 40 degrees [employer] Work Phone: P-R Interval 168 ms [employer] Work Phone: Q-T Interval 404 ms [employer] Work Phone: QTc Calculation (Bazett) 410 ms [employer] Work Phone: R [place] 6 degrees [employer] Work Phone: T [place] 20 degrees [employer] Work Phone: Ventricular Rate 62 BPM [facility] Work Phone: EKG 12 Leadon 11-11-2023 Normal sinus rhythm Cannot rule out Anterior infarct , age undetermined Abnormal ECG No previous ECGs available [facility] ST[facility] M[facility] Nova MD / Butch Nascimento MD - 11/11/2023 Normal sinus rhythm Cannot rule out Anterior infarct , age undetermined Abnormal ECG No previous ECGs available [facility] [employer] Atrial Rate 65 BPM [facility] P [place] 42 degrees [facility] [employer] P-R Interval 172 ms [facility] Q-T Interval 406 ms [facility] QTc Calculation (Bazett) 422 ms [facility] R [place] 7 degrees [facility] T [place] 19 degrees [facility] Ventricular Rate 65 BPM [facility] Normal sinus rhythm Normal ECG When compared with ECG of 10-NOV-2023 04:31, No significant change was found [facility] STV MUSE Wily Nova MD / Butch Nascimento MD - 11/11/2023 Normal sinus rhythm Normal ECG When compared with ECG of 10-NOV-2023 04:31, No significant change was found [facility] Glucose,Whole Bloodon 2023 Glucose [Mass/Vol] 120 mg/dL High 65-105 [facility] Glucose [Mass/Vol] 92 mg/dL Normal 65-105 [facility] Glucose [Mass/Vol] 83 mg/dL Normal 65-105 [facility] Glucose [Mass/Vol] 83 mg/dL Normal 65-105 [facility] Glucose [Mass/Vol] 88 mg/dL Normal 65-105 [facility] Glucose [Mass/Vol] 104 mg/dL Normal 65-105 [facility] MRI PELVIS W WO CONTRASTon 0 11-11-2023 MRI PELVIS W WO CONTRAST EXAMINATION: MRI OF THE PELVIS WITHOUT AND WITH CONTRAST, 11/10/2023 5:20 pm TECHNIQUE: Multiplanar multisequence MRI of the pelvis was performed without and with the administration of 17 mL ProHance intravenous contrast. COMPARISON: None available. HISTORY: Concern for vaginal vs cervical cancer. FINDINGS: Image quality significantly degraded by motion artifact. Uterus appears to be septate with 2 separate endometrial moieties visualized. Both appear to be distended with complicated fluid with the left measuring up to 2.9 cm and the right measuring up to 2.6 cm. A large mass involving the cervix and lower uterine segment demonstrates abnormal enhancement and restricted diffusion, measuring approximately 5.9 x 3.8 cm. Abnormal enhancing tissue extends into the bilateral parametria and is also seen at the bladder dome and along the posterior aspect of the superior bladder wall. Probable mild extension into the upper vagina. The visualized right distal ureter is dilated. Mild left external iliac lymphadenopathy with a dominant node measuring 1.4 x 1.2 cm. Smaller right external iliac lymph nodes. Visualized gastrointestinal tract and osseous structures are unremarkable. Minimal free fluid. IMPRESSION: 1. A 5.9 x 3.8 cm enhancing mass within the cervix extending into the lower uterine segment is highly suspicious for cervical cancer and there is extension into the bilateral parametria with apparent invasion of the bladder wall and suspected mild extension into the upper vagina. 2. Uterus appears to be septate and both endometrium moieties are distended with complicated fluid, likely due to obstruction from the cervical mass. 3. Dilated right distal ureter may be due to obstruction from bladder wall implant. 4. 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 Interpreted by: Frank Deleon MD Signed by: Frank Deleon MD 11/10/[address] [facility] No Panel InformationOrdered By: Butch Nascimento on 11-11-2023 QRS Duration 86 ms [facility] Work Phone: [facility] Miira Work Phone: POC Glucose Fingerstickon Glucose [Mass/Vol] 120 mg/dL High 65 - 105 mg/dL [facility] Interpretation and review of laboratory results Abnormal [facility] Glucose [Mass/Vol] 92 mg/dL 65 - 105 mg/dL [facility] Glucose [Mass/Vol] 83 mg/dL 65 - 105 mg/dL [facility] Glucose [Mass/Vol] 83 mg/dL 65 - 105 mg/dL [facility] Glucose [Mass/Vol] 88 mg/dL 65 - 105 mg/dL [facility] RAD - MRI Reporton RAD - MRI Report [id number] IFF Normal [facility] Surgical Pathology Reporton 11-11-2023 Surgical Pathology Report (NOTE) Path Number: [id number] -- Diagnosis -- A. LEFT CERVIX, BIOPSY: -INVASIVE SQUAMOUS CELL CARCINOMA. -BACKGROUND HIGH-GRADE SQUAMOUS EPITHELIAL LESION (SUDHA-3). B. RIGHT VAGINAL CERVIX, BIOPSY: -PIECES OF SQUAMOUS MUCOSA WITH HIGH-GRADE SQUAMOUS EPITHELIAL LESION (SUDHA 3/VaIN 3). -NO DEFINITIVE INVASION IDENTIFIED. C. LEFT MONS SKIN LESION, BIOPSY: -SEBORRHEIC KERATOSIS. Jamarcus Bagley M.D. Electronically Signed Out 11/15/2023 Clinical Information Pre-Op Diagnosis: BLEEDING FROM THE GENITOURINARY SYSTEM Operative Findings: LEFT CERVIX BIOPSY; RIGHT VAGINAL CERVIX BIOPSY; LEFT MONS SKIN LESION Operation Performed: DILATION AND CURETTAGE HYSTEROSCOPY BIOPSY, CYSTOSCOPY, ANOSCOPY kb Source of Specimen A: LEFT CERVIX BIOPSY B: RIGHT VAGINAL CERVIX BIOPSY C: LEFT MONS SKIN LESION Gross Description A. CANDIS JOHNSON, LEFT CERVIX BIOPSY Received in formalin are boyd-white flecks and fragments, 0.8 x 0.6 x 0.2 cm in aggregate. Entirely 1cs. B. CANDIS JOHNSON, RIGHT VAGINAL CERVIX BIOPSY Received in formalin are red-brown fragments, 2.2 x 0.8 x 0.2 cm in aggregate. Entirely 1cs. C. CANDIS JOHNSON, LEFT MONS SKIN LESION Received in formalin is a 0.9 x 0.8 x 0.3 cm portion of unoriented boyd-brown skin. Inked and trisected 1cs. Amy Sukhi/kb2:11/14/2023 Microscopic Description A-C. Microscopic examination performed. Diagnosis of malignancy confirmed by Dr. Sommer. A. P16 immunostain shows strong block positivity in the dysplastic squamous epithelium and in the invasive squamous carcinoma. Control reacts as expected. Processing Lab: [address] [address] Interpretation Performed at [address] [address] SURGICAL PATHOLOGY CONSULTATION Patient Name: CANDIS JOHNSON [facility] Rec: [id number] [facility] [employer] [facility] ANATOMIC PATHOLOGY [address] [place] [address]. [place], [place] [address] [facility] BLOOD BANK SPECIMENon 2023 [facility] CBC with Auto Differentialon 11-10-2023 Basophils (Bld) [#/Vol] [facility] Basophils/100 WBC (Bld) 0 % 0 - 2 % [facility] Eosinophils (Bld) [#/Vol] 0.03 10*3/uL [facility] Eosinophils/100 WBC (Bld) 0 % Low 1 - 4 % [facility] Erythrocyte distribution width (RBC) [Ratio] 15.9 % High 11.8 - 14.4 % [facility] Hematocrit (Bld) [Volume fraction] 29.5 % Low 36.3 - 47.1 % [facility] Hemoglobin (Bld) [Mass/Vol] 8.7 g/dL Low 11.9 - 15.1 g/dL [facility] Immature granulocytes (Bld) [#/Vol] 0.06 10*3/uL [facility] Immature granulocytes/100 WBC (Bld) 1 % High 0 [facility] Interpretation and review of laboratory results Abnormal [facility] Lymphocytes/100 WBC (Bld) 10 % Low 24 - 43 % [facility] Lymphocytes/100 WBC (Bld) 0.86 % Low [facility] MCH (RBC) [Entitic mass] 26.9 pg 25.2 - 33.5 pg [facility] MCHC (RBC) [Mass/Vol] 29.5 g/dL 28.4 - 34.8 g/dL [facility] MCV (RBC) [Entitic vol] 91.3 fL 82.6 - 102.9 fL [facility] Monocytes/100 WBC (Bld) 9 % 3 - 12 % [facility] Monocytes/100 WBC (Bld) 0.72 % [facility] Neutrophils/100 WBC (Bld) 80 % High 36 - 65 % [facility] Nucleated RBC/100 WBC (Bld) [Ratio] 0.0 % 0.0 per 100 WBC [facility] Platelet mean volume (Bld) [Entitic vol] 8.5 fL 8.1 - 13.5 fL [facility] Platelets (Bld) [#/Vol] 389 10*3/uL [facility] RBC (Bld) [#/Vol] 3.23 10*6/uL Low 3.95 - 5.1 1 m/uL [facility] RBC (Bld) [#/Vol] ANISOCYTOSIS PRESENT [facility] Segmented neutrophils/100 WBC (Bld) 6.82 % [facility] WBC other (Bld) [#/Vol] 8.5 [facility] CBC with Diffon 11-10-2023 Abs. Basophil <0.03 Normal 0.00-0.20 [facility] Comment on above: Performed By: #### G LYHGB, CDP #### [facility] [address] [place] [address] Key Maker: Guillaume Roman MD Abs.Imm.Granulocyte 0.06 k/uL Normal 0.00-0.30 [facility] Comment on above: Performed By: #### G LYHGB, CDP #### [facility] [employer] [address] [place] [address] Key Maker: Guillaume Roman MD Abs.Neutrophil (Seg) 6.82 k/uL Normal 1.50-8.10 [facility] Comment on above: Performed By: #### G LYHGB, CDP #### [facility] [address] [place] [phone] Key Maker: Guillaume Roman MD Basophils/100 WBC (Bld) 0 % Normal 0-2 [facility] Comment on above: Performed By: #### G LYHGB, CDP #### [facility] [address] [place] [address] Key Maker: Guillaume Roman MD Eosinophils (Bld) [#/Vol] 0.03 10*3/uL Normal 0.00-0.44 [facility] Comment on above: Performed By: #### G LYHGB, CDP #### [employer] [address] [place] [phone] Key Maker: Guillaume Roman MD Eosinophils/100 WBC (Bld) 0 % Low 1-4 [facility] Comment on above: Performed By: #### G LYHGB, CDP #### [facility] [employer] [address] [place] [address] Key Maker: Guillaume Roman MD Erythrocyte distribution width (RBC) [Ratio] 15.9 % High 11.8-14.4 [facility] Comment on above: Performed By: #### G LYHGB, CDP #### [facility] [employer] [address] [place] [phone] Key Maker: Guillaume Roman MD Hematocrit (Bld) [Volume fraction] 29.5 % Low 36.3-47.1 [facility] Comment on above: Performed By: #### G LYHGB, CDP #### [address] [phone] Key Maker: Guillaume Roman MD Hemoglobin (Bld) [Mass/Vol] 8.7 g/dL Low 11.9-15.1 [facility] Comment on above: Performed By: #### G LYHGB, CDP #### [facility] [employer] [address] [place] [address] Key Maker: Guillaume Roman MD Immature granulocytes/100 WBC (Bld) 1 % High 0 [facility] Comment on above: Performed By: #### G LYHGB, CDP #### [facility] [employer] [address] [place] [phone] Key Maker: Guillaume Roman MD Lymphocytes (Bld) [#/Vol] 0.86 10*3/uL Low 1.10-3.70 [facility] Comment on above: Performed By: #### G LYHGB, CDP #### [facility] [employer] [address] [place] [phone] Key Maker: Guillaume Roman MD Lymphocytes/100 WBC (Bld) 10 % Low 24-43 [facility] Comment on above: Performed By: #### G LYHGB, CDP #### [address] [address] Key Maker: Guillaume Roman MD MCH (RBC) [Entitic mass] 26.9 pg Normal 25.2-33.5 [facility] Comment on above: Performed By: #### G LYHGB, CDP #### [address] [phone] Key Maker: Guillaume Roman MD MCHC (RBC) [Mass/Vol] 29.5 g/dL Normal 28.4-34.8 [facility] Comment on above: Performed By: #### G LYHGB, CDP #### [address] [address] Key Maker: Guillaume Roman MD MCV (RBC) [Entitic vol] 91.3 fL Normal 82.6-102.9 [facility] Comment on above: Performed By: #### G LYHGB, CDP #### [address] [phone] Key Maker: Guillaume Roman MD Monocytes (Bld) [#/Vol] 0.72 10*3/uL Normal 0.10-1.20 [facility] Comment on above: Performed By: #### G LYHGB, CDP #### [address] [phone] Key Maker: Guillaume Roman MD Monocytes/100 WBC (Bld) 9 % Normal 3-12 [facility] Comment on above: Performed By: #### G LYHGB, CDP #### [address] [phone] Key Maker: Guillaume Roman MD Neutrophil (Seg) 80 % High 36-65 [facility] Comment on above: Performed By: #### G LYHGB, CDP #### [address] [address] Key Maker: Guillaume Roman MD NRBC Automated 0.0 per [address] [facility] Comment on above: Performed By: #### G LYHGB, CDP #### [address] [phone] Key Maker: Guillaume Roman MD Platelet mean volume (Bld) [Entitic vol] 8.5 fL Normal 8.1-13.5 [facility] Comment on above: Performed By: #### G LYHGB, CDP #### [address] [address] Key Maker: Guillaume Roman MD Platelets (Bld) [#/Vol] 389 10*3/uL Normal 138-453 [facility] Comment on above: Performed By: #### G LYHGB, CDP #### [address] [address] Key Maker: Guillaume Roman MD RBC (Bld) [#/Vol] 3.23 10*6/uL Low 3.95-5.11 [facility] Comment on above: Performed By: #### G LYHGB, CDP #### [address] [address] Key Maker: Guillaume Roman MD RBC morphology finding Nom (Bld) ANISOCYTOSIS PRESENT Normal [facility] Comment on above: Performed By: #### G LYHGB, CDP #### [address] [address] Key Maker: Guillaume Roman MD WBC (Bld) [#/Vol] 8.5 10*3/uL Normal 3.5-11.3 [facility] Comment on above: Performed By: #### G LYGENERAL [facility], CD[facility] #### [place] [id number] [place] [phone] Key Maker: Guillaume Roman MD CT HEAD WO CONTRASTon 2023 CT HEAD WO CONTRAST EXAMINATION: CT OF THE HEAD WITHOUT CONTRAST 11/10/2023 10:15 am TECHNIQUE: CT of the head was performed without the administration of intravenous contrast. Automated exposure control, iterative reconstruction, and/or weight based adjustment of the mA/kV was utilized to reduce the radiation dose to as low as reasonably achievable. COMPARISON: None. HISTORY: ORDERING SYSTEM PROVIDED HISTORY: concern for history of stroke, altered mental status TECHNOLOGIST PROVIDED HISTORY: concern for history of stroke, altered mental status FINDINGS: BRAIN/VENTRICLES: There is no acute intracranial hemorrhage, mass effect or midline shift. No abnormal extra-axial fluid collection. The wiley-white differentiation is maintained without evidence of an acute infarct. There is no evidence of hydrocephalus. Mild chronic microvascular disease is identified periventricular white matter ORBITS: The visualized portion of the orbits demonstrate no acute abnormality. SINUSES: The visualized paranasal sinuses and mastoid air cells demonstrate no acute abnormality. SOFT TISSUES/SKULL: No acute abnormality of the visualized skull or soft tissues. IMPRESSION: No acute intracranial abnormality. Interpreted by: True Mccall MD Signed by: True Mccall MD 11/10/[address] [facility] CT Head WO contraston 2023 No acute intracrania l abnormality. PN RIS CONSOLIDATED EXAMINATION: CT OF THE HEAD WITHOUT CONTRAST 11/10/2023 10:15 am TECHNIQUE: CT of the head was performed without the administration of intravenous contrast. Automated exposure control, iterative reconstruction, and/or weight based adjustment of the mA/kV was utilized to reduce the radiation dose to as low as reasonably achievable. COMPARISON: None. HISTORY: ORDERING SYSTEM PROVIDED HISTORY: concern for history of stroke, altered mental status TECHNOLOGIST PROVIDED HISTORY: concern for history of stroke, altered mental status FINDINGS: BRAIN/VENTRICLES: There is no acute intracranial hemorrhage, mass effect or midline shift. No abnormal extra-axial fluid collection. The wiley-white differentiation is maintained without evidence of an acute infarct. There is no evidence of hydrocephalus. Mild chronic microvascular disease is identified periventricular white matter ORBITS: The visualized portion of the orbits demonstrate no acute abnormality. SINUSES: The visualized paranasal sinuses and mastoid air cells demonstrate no acute abnormality. SOFT TISSUES/SKULL: No acute abnormality of the visualized skull or soft tissues. True Quintanilla MD - 11/10/2023 EXAMINATION: CT OF THE HEAD WITHOUT CONTRAST 11/10/2023 10:15 am TECHNIQUE: CT of the head was performed without the administration of intravenous contrast. Automated exposure control, iterative reconstruction, and/or weight based adjustment of the mA/kV was utilized to reduce the radiation dose to as low as reasonably achievable. COMPARISON: None. HISTORY: ORDERING SYSTEM PROVIDED HISTORY: concern for history of stroke, altered mental status TECHNOLOGIST PROVIDED HISTORY: concern for history of stroke, altered mental status FINDINGS: BRAIN/VENTRICLES: There is no acute intracranial hemorrhage, mass effect or midline shift. No abnormal extra-axial fluid collection. The wiley-white differentiation is maintained without evidence of an acute infarct. There is no evidence of hydrocephalus. Mild chronic microvascular disease is identified periventricular white matter ORBITS: The visualized portion of the orbits demonstrate no acute abnormality. SINUSES: The visualized paranasal sinuses and mastoid air cells demonstrate no acute abnormality. SOFT TISSUES/SKULL: No acute abnormality of the visualized skull or soft tissues. IMPRESSION: No acute intracranial abnormality. [facility] Radiology Study observation (narrative) [facility] CT Head WO contrastOrdered B y: True Mccall on 11-10-2023 [facility] Work Phone: Comp Metabolic Pr/rfx MGon 0 11-10-2023 Albumin [Mass/Vol] 3.5 g/dL Normal 3.5-5.2 [facility] Comment on above: Performed By: #### C DP, CP #### [employer] [address] [place] [phone] Key Maker: Guillaume Roman MD Albumin/Glob Ratio 2.0 Normal 1.0-2.5 [facility] Comment on above: Performed By: #### C DP, CP #### [employer] [address] [place] [phone] Key Maker: Guillaume Roman MD Alkaline Phos 85 U/L Normal 35-104 [facility] Comment on above: Performed By: #### C DP, CP #### [address] [phone] Key Maker: Guillaume Roman MD ALT [Catalytic activity/Vol] 9 U/L Low 10-35 [facility] Comment on above: Performed By: #### C DP, CP #### [address] [address] Key Maker: Guillaume Roman MD Anion gap [Moles/Vol] 12 mmol/L Normal 9-16 [facility] Comment on above: Performed By: #### C DP, CP #### [address] [address] Key Maker: Guillaume Roman MD AST [Catalytic activity/Vol] 20 U/L Normal 10-35 [facility] Comment on above: Performed By: #### C DP, CP #### [address] [address] Key Maker: Guillaume Roman MD Bilirubin [Mass/Vol] 0.2 mg/dL Normal 0.00-1.20 [facility] Comment on above: Performed By: #### C DP, CP #### [address] [address] Key Maker: Guillaume Roman MD Calcium [Mass/Vol] 8.4 mg/dL Low 8.6-10.4 [facility] Comment on above: Performed By: #### C DP, CP #### [address] [address] Key Maker: Guillaume Roman MD Chloride [Moles/Vol] 108 mmol/L High 98-107 [facility] Comment on above: Performed By: #### C DP, CP #### [address] [phone] Key Maker: Guillaume Roman MD CO2 [Moles/Vol] 17 mmol/L Low 20-31 [facility] Comment on above: Performed By: #### C DP, CP #### [address] [address] Key Maker: Guillaume Roman MD Creatinine [Mass/Vol] 0.9 mg/dL Normal 0.50-0.90 [facility] Comment on above: Performed By: #### C DP, CP #### [address] [address] Key Maker: Guillaume Roman MD GFR/1.73 sq M.predicted among non-blacks MDRD (S/P/Bld) [Vol rate/Area] 66 mL/min/{1.73_m2} Normal >60 [facility] Comment on above: Result Comment: These results are not intended for use in patients <18 years of age. eGFR results are calculated without a race factor using the 2020 CKD-EPI equation. Careful clinical correlation is recommended, particularly when comparing to results calculated using previous equations. The CKD-EPI equation is less accurate in patients with extremes of muscle mass, extra-renal metabolism of creatine, excessive creatine ingestion, or following therapy that affects renal tubular secretion. Performed By: #### C DP, CP #### [address] [phone] Key Maker: Guillaume Roman MD Glucose [Mass/Vol] 99 mg/dL Normal 74-99 [facility] Comment on above: Performed By: #### C DP, CP #### [address] [address] Key Maker: Guillaume Roman MD Potassium [Moles/Vol] 4.5 mmol/L Normal 3.7-5.3 [facility] Comment on above: Result Comment: SPEC IMEN SLIGHTLY HEMOLYZED, RESULTS MAY BE ADVERSELY AFFECTED. Performed By: #### C DP, CP #### [facility] [address] [place] [address] Key Maker: Guillaume Roman MD Protein [Mass/Vol] 5.0 g/dL Low 6.6-8.7 [facility] Comment on above: Performed By: #### C DP, CP #### [facility] [place] [address] Key Maker: Guillaume Roman MD Sodium [Moles/Vol] 137 mmol/L Normal 136-145 [facility] Comment on above: Performed By: #### C DP, CP #### [facility] [place] [address] Key Maker: Guillaume Roman MD Urea nitrogen [Mass/Vol] 10 mg/dL Normal 8-23 [facility] Comment on above: Performed By: #### C DP, CP #### [facility] [place] [address] Key Maker: Guillaume Roman MD Comprehensive Metabolic Pane l w/ Reflex to MGon 11-10-2023 Albumin [Mass/Vol] 3.5 g/dL 3.5 - 5.2 g/dL [facility] Albumin/Globulin [Mass ratio] 2.0 {ratio} 1.0 - 2.5 [facility] ALP [Catalytic activity/Vol] 85 U/L 35 - 104 U/L [facility] ALT [Catalytic activity/Vol] 9 U/L Low 10 - 35 U/L [facility] Anion gap [Moles/Vol] 12 mmol/L 9 - 16 mmol/L [facility] AST [Catalytic activity/Vol] 20 U/L 10 - 35 U/L [facility] Bilirubin [Mass/Vol] 0.2 mg/dL 0.00 - 1.20 mg/dL [facility] Calcium [Mass/Vol] 8.4 mg/dL Low 8.6 - 10. 4 mg/dL [facility] Chloride [Moles/Vol] 108 mmol/L High 98 - 10 7 mmol/L [facility] CO2 [Moles/Vol] 17 mmol/L Low 20 - 31 mmol/L [facility] Creatinine [Mass/Vol] 0.9 mg/dL 0.50 - 0.90 mg/dL [facility] Est Glomariella Filt Rate 66 - PINF [facility] Comment on above: These results are not intended for use in patients <18 years of age. eGFR results are calculated without a race factor using the 2020 CKD-EPI equation. Careful clinical correlation is recommended, particularly when comparing to results calculated using previous equations. The CKD-EPI equation is less accurate in patients with extremes of muscle mass, extra-renal metabolism of creatine, excessive creatine ingestion, or following therapy that affects renal tubular secretion. Glucose [Mass/Vol] 99 mg/dL 74 - 99 mg/dL [facility] Interpretation and review of laboratory results Abnormal [facility] Potassium [Moles/Vol] 4.5 mmol/L 3.7 - 5.3 mmol/L [facility] Comment on above: SPECIMEN SLIGHTLY HE MOLYZED, RESULTS MAY BE ADVERSELY AFFECTED. Protein [Mass/Vol] 5.0 g/dL Low 6.6 - 8.7 g/dL [facility] Sodium [Moles/Vol] 137 mmol/L 136 - 145 mmol/L [facility] Urea nitrogen [Mass/Vol] 10 mg/dL 8 - 23 mg/dL [facility] Glucose,Whole Bloodon 2023 Glucose [Mass/Vol] 86 mg/dL Normal 65-105 [facility] Glucose [Mass/Vol] 89 mg/dL Normal 65-105 [facility] Glucose [Mass/Vol] 91 mg/dL Normal 65-105 [facility] Hemoglobin A1Con 11-10-2023 Glucose [Mass/Vol] 82 mg/dL Normal [facility] Comment on above: Result Comment: The ADA and AACC recommend providing the estimated average glucose result to permit better patient understanding of their HBA1c result. Performed By: #### G LOUISA, DAVID #### [employer] [address], [place] [id number] Key Maker: Guillaume Roman MD HbA1c (Bld) [Mass fraction] 4.5 % Normal 4.0-6.0 [facility] Comment on above: Performed By: #### G LOUISA, CDP #### [facility] [address], [place] [id number] Key Maker: Guillaume Roman MD Average glucose Estimated from glycated hemoglobin (Bld) [Mass/Vol] 82 mg/dL [facility] [employer] Comment on above: The ADA and AACC rec ommend providing the estimated average glucose result to permit better patient understanding of their HBA1c result. HbA1c (Bld) [Mass fraction] 4.5 % 4.0 - 6.0 % [facility] Lipid Panelon 11-10-2023 Cholesterol [Mass/Vol] 79 mg/dL 0 - 199 mg/dL [facility] [employer] Comment on above: Cholesterol Guidelines: <200 Desirable 200-240 Borderline >240 Undesirable Cholesterol in HDL [Mass/Vol] 55 mg/dL 40 - PINF mg/dL [facility] Comment on above: HDL Guidelines: <40 Undesirable 40-59 Borderline >59 Desirable Cholesterol in LDL [Mass/Vol] 11 mg/dL 0 - 100 mg/dL [facility] Comment on above: LDL Guidelines: <100 Desirable 100-129 Near to/above Desirable 130-159 Borderline >159 Undesirable Direct (measured) LDL and calculated LDL are not interchangeable tests. Cholesterol in VLDL [Mass/Vol] 13 mg/dL [facility] Cholesterol.total/Cho lesterol in HDL [Mass ratio] 1.0 {ratio} [facility] Triglyceride [Mass/Vol] 66 mg/dL NINF - 150 mg/dL [facility] Comment on above: Triglyceride Guidelines: <150 Desirable 150-199 Borderline 200-499 High >499 Very high Based on AHA Guidelines for fasting triglyceride, April 2012. Lipid Profileon 11-10-2023 Cholesterol [Mass/Vol] 79 mg/dL Normal 0-199 [facility] Comment on above: Result Comment: Cholesterol Guidelines: <200 Desirable 200-240 Borderline >240 Undesirable Performed By: #### C DP, CP #### [address] [id number] Key Maker: Guillaume Roman MD Cholesterol in HDL [Mass/Vol] 55 mg/dL Normal >40 [facility] Comment on above: Result Comment: HDL Guidelines: <40 Undesirable 40-59 Borderline >59 Desirable Performed By: #### C DP, CP #### [address] [id number] Key Maker: Guillaume Roman MD Cholesterol in LDL [Mass/Vol] 11 mg/dL Normal 0-100 [facility] Comment on above: Result Comment: LDL Guidelines: <100 Desirable 100-129 Near to/above Desirable 130-159 Borderline >159 Undesirable Direct (measured) LDL and calculated LDL are not interchangeable tests. Performed By: #### C DP, CP #### [address] [id number] Key Maker: Guillaume Roman MD Cholesterol in VLDL [Mass/Vol] 13 mg/dL Normal [facility] Comment on above: Performed By: #### C DP, CP #### [address] [id number] Key Maker: Guillaume Roman MD Cholesterol.total/Cho lesterol in HDL [Mass ratio] 1.0 {ratio} Normal [facility] Comment on above: Performed By: #### C DP, CP #### [facility] [employer] [address] [place] [id number] Key Maker: Guillaume Roman MD Triglyceride [Mass/Vol] 66 mg/dL Normal <150 [facility] Comment on above: Result Comment: Triglyceride Guidelines: <150 Desirable 150-199 Borderline 200-499 High >499 Very high Based on AHA Guidelines for fasting triglyceride, April 2012. Performed By: #### C DP, CP #### [address] [id number] Key Maker: Guillaume Roman MD MR Pelvis WO and W contrast Yvonne 11-10-2023 1. A 5.9 x 3.8 cm enhancing mass within the cervix extending into the lower uterine segment is highly suspicious for cervical cancer and there is extension into the bilateral parametria with apparent invasion of the bladder wall and suspected mild extension into the upper vagina. 2. Uterus appears to be septate and both endometrium moieties are distended with complicated fluid, likely due to obstruction from the cervical mass. 3. Dilated right distal ureter may be due to obstruction from bladder wall implant. 4. 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 [facility] EXAMINATION: MRI OF THE PELVIS WITHOUT AND WITH CONTRAST, 11/10/2023 5:20 pm TECHNIQUE: Multiplanar multisequence MRI of the pelvis was performed without and with the administration of 17 mL ProHance intravenous contrast. COMPARISON: None available. HISTORY: Concern for vaginal vs cervical cancer. FINDINGS: Image quality significantly degraded by motion artifact. Uterus appears to be septate with 2 separate endometrial moieties visualized. Both appear to be distended with complicated fluid with the left measuring up to 2.9 cm and the right measuring up to 2.6 cm. A large mass involving the cervix and lower uterine segment demonstrates abnormal enhancement and restricted diffusion, measuring approximately 5.9 x 3.8 cm. Abnormal enhancing tissue extends into the bilateral parametria and is also seen at the bladder dome and along the posterior aspect of the superior bladder wall. Probable mild extension into the upper vagina. The visualized right distal ureter is dilated. Mild left external iliac lymphadenopathy with a dominant node measuring 1.4 x 1.2 cm. Smaller right external iliac lymph nodes. Visualized gastrointestinal tract and osseous structures are unremarkable. Minimal free fluid. [facility] Frank Deleon MD - 11/10/2023 EXAMINATION: MRI OF THE PELVIS WITHOUT AND WITH CONTRAST, 11/10/2023 5:20 pm TECHNIQUE: Multiplanar multisequence MRI of the pelvis was performed without and with the administration of 17 mL ProHance intravenous contrast. COMPARISON: None available. HISTORY: Concern for vaginal vs cervical cancer. FINDINGS: Image quality significantly degraded by motion artifact. Uterus appears to be septate with 2 separate endometrial moieties visualized. Both appear to be distended with complicated fluid with the left measuring up to 2.9 cm and the right measuring up to 2.6 cm. A large mass involving the cervix and lower uterine segment demonstrates abnormal enhancement and restricted diffusion, measuring approximately 5.9 x 3.8 cm. Abnormal enhancing tissue extends into the bilateral parametria and is also seen at the bladder dome and along the posterior aspect of the superior bladder wall. Probable mild extension into the upper vagina. The visualized right distal ureter is dilated. Mild left external iliac lymphadenopathy with a dominant node measuring 1.4 x 1.2 cm. Smaller right external iliac lymph nodes. Visualized gastrointestinal tract and osseous structures are unremarkable. Minimal free fluid. IMPRESSION: 1. A 5.9 x 3.8 cm enhancing mass within the cervix extending into the lower uterine segment is highly suspicious for cervical cancer and there is extension into the bilateral parametria with apparent invasion of the bladder wall and suspected mild extension into the upper vagina. 2. Uterus appears to be septate and both endometrium moieties are distended with complicated fluid, likely due to obstruction from the cervical mass. 3. Dilated right distal ureter may be due to obstruction from bladder wall implant. 4. 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 [facility] [employer] Radiology Study observation (narrative) [facility] MR Pelvis WO and W contrast IVOrdered By: Frank Deleon on 11-10-2023 [facility] Work Phone: No Panel Informationon 11-09 [facility] Pitz[employer] POC Glucose Fingerstickon Glucose [Mass/Vol] 104 mg/dL 65 - 105 mg/dL [facility] [employer] [facility] Glucose [Mass/Vol] 86 mg/dL 65 - 105 mg/dL [facility] Glucose [Mass/Vol] 89 mg/dL 65 - 105 mg/dL [facility] Mi[facility] Glucose [Mass/Vol] 91 mg/dL 65 - 105 mg/dL [facility] [employer] PREVIOUS SPECIMENon 11-10-19 24 [facility] Mi[facility] Specimen Rejectionon 024 Reason for rejection Unable to perform testing: Specimen clotted. Normal [facility] Comment on above: Performed By: #### C DP, CP #### [facility] [address] [place] [phone] Key Maker: Guillaume Roman MD Source of sample .BLOOD Normal [facility] Comment on above: Performed By: #### C DP, CP #### [facility] [address] [place] [address] [phone] Key Maker: Guillaume Roman MD Test ordered CDP, GLYHGB [facility] Comment on above: Performed By: #### C DP, CP #### [facility] [employer] [address] [place] [phone] Key Maker: Guillaume Roman MD TYPE AND SCREENon 11-10-2023 ABO and Rh group Nom (Bld) Blood group O Rh(D) positive [facility] Arm Band Number [id number] [facility] Blood Bank Sample Expiration 11/13/2023,2359 [facility] Blood group antibodies identified Nom Negative [facility] Type + Screenon 11-10-2023 Type + Screen Sample Expiration 11/13/2023,2359 Arm Band Number [id number] ABO/Rh(D) O POSITIVE Antibody Screen NEGATIVE [facility] Comment on above: Performed By: #### T YS #### [address] [phone] Key Maker: Guillaume Roman MD [facility] 11-09-2023 L Specimen: [id number] Received: 11/10/23 Status: TESS Wadsworth Num: [id number] Spec Type: Surgical Subm Dr: Kobe Crespo Tissues: A Endometrium - Curettings (EMC) Procedures: HE/6, Gross/Micro L4 Age/ Patient Sex Location Account Attending Physician Candis Johnson 68/F LABELL [id number] Kobe Crespo SPEC NUM: [id number] RECD: 11/10/23 STATUS: TESS [place]ADSWORTH NUM: [id number] NOY: 11/09/[address]: Kobe Crespo ENTERED: 11/10/[address] [facility] [address]: Gail,Lab SPEC TYPE: Surgical DEPT: BLANCHE VALDIVIA ORDERED: HE/6, Gross/Micro L4 ORDERED: HE/6, Gross/Micro L4 Pathological Diagnosis Endometrium, curettage: ? Small, detached pieces of partially necrotic, carcinomatous, variably keratinizing squamous epithelium with accompanying blood, mucus and profuse neutrophilic inflammation. ? No intact endometrium for evaluation. ? Please see Note. Note: The presence of blood with profuse neutrophilic inflammation and detached, partially necrotic, neoplastic keratinizing squamous cells suggests presence of invasive squamous cell carcinoma, likely of cervical origin. The status of the endometrium is not clear, as no intact endometrial tissue is represented. Clinical correlation is suggested. Hysterectomy would be therapeutic and provide additional diagnostic information. Gross Description The specimen is received in formalin, labeled with the patient's name, date of and endometrial curettings , consisting of an aggregate of hemorrhagic material altogether measuring 2.4 x 2.1 x 0.7 cm. Submitted entirely in A1?A3. Clinical history: HGSIL, thickened endometrium, postmenopausal bleeding, uterus didelphys, vaginal stenosis, cervical stenosis Specimen: [id number] Received: 11/10/23 Status: TESS Berry Num: [id number] Spec Type: Surgical Subm Dr: Kobe Crespo Tissues: A Endometrium - Curettings (EMC) Procedures: HE/6, Gross/Micro L4 Patient: RaheelglennCandis [id number] (Continued) Specimen: [id number] Received: 11/10/23 (Continued) Signed (signature on file) Jamarcus Chao MD 11/11/23 1448 Specimen: [id number] Received: 11/10/23 Status: TESS [place]sworth Num: [id number] Spec Type: Surgical Subm Dr: Kobe Crespo Tissues: A Endometrium - Curettings (EMC) Procedures: GABRIEL/Ginna Sorto/Ashley L4 Patient: Candis Johnson [id number] (Continued) Specimen: [id number] Received: 11/10/23 (Continued) CPT Codes 22088 Specimen: [id number] Received: 11/10/23 Status: TESS Herreralayne Num: [id number] Spec Type: Surgical Subm Dr: Kobe Crespo Tissues: A Endometrium - Curettings (EMC) Procedures: GABRIEL/Ginna Sorto/Ashley L4 Patient: RaheelglennCandis [id number] (Continued) Signed (signature on file) Jamarcus Chao MD 11/11/23 1448 Normal [facility] Lab Reportson 11-08-2023 Lab Reports [id number]#1.00T IFF Normal [facility] Lab Reportson 11-07-2023 Lab Reports [id number]#1.00T IFF Normal [facility] Consent for Procedure/Surger yon 10-14-2023 Consent for Procedure/Surgery [id number]#1.00T IFF Normal [facility] Office Visiton 10-06-2023 Follow-up visit [id number] Ayala 1955 Date Provider Department Center 10/06/2023 REBECCA VASQUEZ Family History Problem Relation Age of Onset Coronary artery disease Mother Cancer Father Diabetes Father Family Status - Relation Status Age at Mother Father Level of Service:15695 [place] OFFICE/OUTPATIENT ESTABLISHED MOD MDM 30 MIN Normal [facility] Office Visiton 09-23-2023 Follow-up visit [id number] Ayala 1955 Date Provider Department Center 09/23/2023 384GUERDA ROLAND Family History Problem Relation Age of Onset Coronary artery disease Mother Cancer Father Diabetes Father Family Status - Relation Status Age at Mother Father Level of Service:93435 [place] OFFICE/OUTPATIENT ESTABLISHED LOW MDM 20 MIN Reason for Visit and Comments: Follow-up [134555] - Concerns: Not much states some swelling in legs and some back back, chest pain seems to be getting better Normal [facility] Office Visiton 08-26-2023 Follow-up visit [id number] Ayala 1955 Date Provider Department Center 08/26/2023 384GUERDA ROLAND Family History Problem Relation Age of Onset Coronary artery disease Mother Cancer Father Diabetes Father Family Status - Relation Status Age at Mother Father Level of Service:50319 [place] OFFICE/OUTPATIENT NEW MODERATE MDM 45 MINUTES Normal [facility] Consent for Procedure/Surger yon 08-24-2023 Consent for Procedure/Surgery [id number]#1.00T IFF Normal [facility] Consent for Procedure/Surger yon 08-09-2023 Consent for Procedure/Surgery [id number]#1.00T IFF Normal [facility] Urine Cytology ([facility])on 0 08-09-2023 Urine Cytology Diagnosis Info Invalid Interpretation Code [facility] Comment on above: Result Comment: A:Ur ine,Urine:Voided Interpretation - MicroScopic Description - Adequacy - Gross Description Site ID:A color Dark Yellow fixative Alcohol Specimen designated Urine received in alcohol preservative and labeled with the patient?s name, consists of 110ml slightly cloudy dark yellow fluid. Electronically signed by : on: 08/09/2023 11:46:02 Performed By: #### 1 [id number] ####[facility] [address] [place] [address] Physician Referralon 024 Physician Referral [id number]#1.00 TIFF Normal [facility] Screenson 08-04-2023 Screens [id number]#1.00TI FF Normal [facility] Urine Cytology ([facility])on 0 08-04-2023 Method of Extraction Voided Normal [facility] Comment on above: Performed By: #### 1 [id number] ####[facility] [address] [place] [address] Number of Jars 1 Invalid Interpretation Code [facility] Comment on above: Performed By: #### 1 [id number] ####[facility] [address] [place] [address] UC Specimen Urine Normal [facility] Comment on above: Performed By: #### 1 [id number] ####[facility] [address] [place] [address] Type of Service Technical Only Normal [facility] Comment on above: Performed By: #### 1 [id number] ####[facility] [address] [place] [address] Ambulatory Visit Summaryon 0 08-03-2023 Ambulatory Visit Summary CANDIS JOHNSON :1955 Visit Date:08/03/2023 Ambulatory Visit Instructions Your Diagnosis Ureteral dilatation Gross hematuria Former smoker Aspirin long-term use Your Care Team Attending Physician - Marcelino GALLARDO, Pamela Fam Primary Care Physician - ANDER LANGLEY JR, DO Referring Physician - Kobe CRESPO DO This Is Your Medications List [...] included)... Normal [facility] Home Recordson 08-03 Jail Records [id number]#1.00T IFF Normal [facility] Patient Educationon 08-03-19 Patient Education Urology Ureteroscopy [...] including vitamins, herbs, eye drops, creams, and xecv-xrv-prmdnnd medicines. ? Any problems you or family [...] care provider tells you to. ? Taking tbek-amb-lvalbpz medicines, vitamins, herbs, and supplements. General instructions [...] be monitor (more content not included)... 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 *possible abnormality of urinary system. Ordered due to rectal bleeding. Pt is a new pt. Never before seen in our office. Pt is hard of hearing she can read lips and she has an nurses aid from her home ([facility]) CT abdomen pelvis wo/w con done @ [facility] on 06/06/23 She tried giving a [...] age Assessment/Plan 68 yo female resident of [facility] here for new patient evaluation [...] cysto, if patient unable to submit from [facility] prior 3. Former smoker (Z87.891: Personal history of nicotine dependence) Smoked for a very little amount of time. 4. 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 Normal [facility] Comment on above: Result Comment: Elec tronically [...] RIVKA FRAZIER Date: 2022-07-05 15:47 Normal [facility] MAMM SCREEN 3D DERRICK CADon 05-14-2022 MAMM SCREEN 3D DERRICK CAD Patient: CANDIS JOHNSON Exam Date: 05/14/2022 : 1955 Gender:F Ordering : DR ANDER LANGLEY D.O. Admission #: [id number] Family : Order #: [id number] CLICK HERE TO VIEW EXAM RADIOLOGY REPORT PROCEDURE: MAMMOGRAM SCREENING 3D BILATERAL CAD COMPARISON: MAMM DERRICK DIAG W CAD, 04/23/2019. MAMM SCREEN 3D DERRICK CAD, 05/08/2021. INDICATIONS: Screening mammography Calculator Name NCI Breast Cancer Risk Assessment Tool 5 Year Breast Cancer Risk 1.40% Lifetime Breast Cancer Risk 4.80% Personal Breast Cancer No Personal Ovarian Cancer No Treatments None Family Cancers None LOCATION: [facility] BREAST COMPOSITION: Almost entirely fatty. FINDINGS: [...] LUMP SHOULD BE BIOPSIED. Dictated by: Jamarcus Huddlesotn MD on 05/14/2022 at 12:46 Approved by: Jamarcus Huddleston MD on 05/14/2022 at 12:49 Normal [facility] BNPon 03-07-2022 Natriuretic peptide B (Bld) [Mass/Vol] 115.0 pg/mL Normal <=900.0 [facility] Comment on above: Performed By: #### B SECRETARY ADMINISTRATIVE ASSISTANT, CMP, HSTROPN #### [facility] [address] [place] [address] Dr. Carl Zuñiga CBC AUTO DIFFon 03-07-2022 BASO # 0.0 103/ul Normal 0.0-0.1 [facility] Comment on above: Performed By: #### B SECRETARY ADMINISTRATIVE ASSISTANT, CMP, HSTROPN #### [facility] [address] [place] [address] Dr. Carl Zuñiga Basophils/100 WBC (Bld) 0.0 % Critically low 0.2-2.0 [facility] Comment on above: Performed By: #### B SECRETARY ADMINISTRATIVE ASSISTANT, CMP, HSTROPN #### [facility] [address] [place] [address] Dr. Carl Zuñiga EO # 0.1 103/ul Normal 0.0-0.7 [facility] Comment on above: Performed By: #### B SECRETARY ADMINISTRATIVE ASSISTANT, CMP, HSTROPN #### [facility] [address] [place] [address] Dr. Carl Zuñiga Eosinophils/100 WBC (Bld) 1.0 % Normal 0.9-7.0 [facility] Comment on above: Performed By: #### B SECRETARY ADMINISTRATIVE ASSISTANT, CMP, HSTROPN #### [facility] [address] [place] [address] Dr. Carl Zuñiga Erythrocyte distribution width (RBC) [Ratio] 13.7 % Normal 11.0-15.0 [facility] Comment on above: Performed By: #### B SECRETARY ADMINISTRATIVE ASSISTANT, CMP, HSTROPN #### [facility] [address] [place] [address] Dr. Carl Zuñiga Hematocrit (Bld) [Volume fraction] 40.8 % Normal 36.0-48.0 [facility] Comment on above: Performed By: #### B SECRETARY ADMINISTRATIVE ASSISTANT, CMP, HSTROPN #### [facility] [address] [place] [address] Dr. Carl Zuñiga Hemoglobin (Bld) [Mass/Vol] 13.1 g/dL Normal 12.0-16.0 [facility] Comment on above: Performed By: #### B SECRETARY ADMINISTRATIVE ASSISTANT, CMP, HSTROPN #### [facility] [address] [place] [address] Dr. Carl Zuñiga IG # 0.02 10e3/ul Normal 0.00-0.03 [facility] Comment on above: Performed By: #### B SECRETARY ADMINISTRATIVE ASSISTANT, CMP, HSTROPN #### [facility] [address] [place] [address] Dr. Carl Zuñiga IG % 0.3 % Normal 0.0-0.5 [facility] Comment on above: Performed By: #### B SECRETARY ADMINISTRATIVE ASSISTANT, CMP, HSTROPN #### [facility] [address] [place] [address] Dr. Carl Zuñiga LYMPH # 0.9 103/ul Critically low 1.2-3.8 [facility] Comment on above: Performed By: #### B SECRETARY ADMINISTRATIVE ASSISTANT, CMP, HSTROPN #### [facility] [address] [place] [address] Dr. Carl Zuñiga Lymphocytes/100 WBC (Bld) 13.9 % Critically low 20.5-60.0 [facility] Comment on above: Performed By: #### B SECRETARY ADMINISTRATIVE ASSISTANT, CMP, HSTROPN #### [facility] [address] [place] [address] Dr. Carl Zuñiga MANUAL DIFF REQ NO Normal [facility] Comment on above: Performed By: #### B SECRETARY ADMINISTRATIVE ASSISTANT, CMP, HSTROPN #### [facility] [address] [place] [address] Dr. Carl Zuñiga MCH (RBC) [Entitic mass] 30.8 pg Normal 26.7-34.0 [facility] Comment on above: Performed By: #### B SECRETARY ADMINISTRATIVE ASSISTANT, CMP, HSTROPN #### [facility] [address] [place] [address] Dr. Carl Zuñiga MCHC (RBC) [Mass/Vol] 32.1 g/dL Normal 29.9-35.2 [facility] Comment on above: Performed By: #### B SECRETARY ADMINISTRATIVE ASSISTANT, CMP, HSTROPN #### [facility] [address] [place] [address] Dr. Carl Zuñiga MCV (RBC) [Entitic vol] 96.0 fL Normal 81.0-99.0 [facility] Comment on above: Performed By: #### B SECRETARY ADMINISTRATIVE ASSISTANT, CMP, HSTROPN #### [facility] [address] [place] [address] Dr. Carl Zuñiga MONO # 0.6 103/ul Normal 0.3-0.8 [facility] Comment on above: Performed By: #### B SECRETARY ADMINISTRATIVE ASSISTANT, CMP, HSTROPN #### [facility] [address] [place] [address] Dr. Carl Zuñiga Monocytes/100 WBC (Bld) 9.2 % Normal 1.7-12.0 [facility] Comment on above: Performed By: #### B SECRETARY ADMINISTRATIVE ASSISTANT, CMP, HSTROPN #### [facility] [address] [place] [address] Dr. Carl Zuñiga NEUT # 5.1 103/ul Normal 1.4-6.5 [facility] Comment on above: Performed By: #### B SECRETARY ADMINISTRATIVE ASSISTANT, CMP, HSTROPN #### [facility] [address] [place] [address] Dr. Carl Zuñiga Neutrophils/100 WBC (Bld) 75.6 % Critically high 43.0-75.0 [facility] Comment on above: Performed By: #### B SECRETARY ADMINISTRATIVE ASSISTANT, CMP, HSTROPN #### [facility] [address] [place] [address] Dr. Carl Zuñiga Platelet mean volume (Bld) [Entitic vol] 8.5 fL Critically low 9.5-13.5 [facility] Comment on above: Performed By: #### B SECRETARY ADMINISTRATIVE ASSISTANT, CMP, HSTROPN #### [facility] [address] [place] [address] Dr. Carl Zuñiga PLT 206 103/ul Normal 150-450 [facility] Comment on above: Performed By: #### B SECRETARY ADMINISTRATIVE ASSISTANT, CMP, HSTROPN #### [facility] [address] [place] [address] Dr. Carl Zuñiga RBC 4.25 106/ul Normal 4.20-5.40 [facility] Comment on above: Performed By: #### B SECRETARY ADMINISTRATIVE ASSISTANT, CMP, HSTROPN #### [facility] [address] [place] [address] Dr. Carl Zuñiga WBC 6.7 103/ul Normal 4.0-11.0 [facility] Comment on above: Performed By: #### B SECRETARY ADMINISTRATIVE ASSISTANT, CMP, HSTROPN #### [facility] [address] [place] [address] Dr. Carl Zuñiga D-DIMERon 03-07-2022 D-DIMER <0.19 Normal <=0.59 [facility] Comment on above: Performed By: #### D DIM #### [facility] [address] [place] [address] Dr. Carl Zuñiga D-DIMER COMMENTS SEE BELOW Normal [facility] Comment on above: Result Comment: Incr [...] hospitalization. Performed By: #### D DIM #### [facility] [address] [place] [address] Dr. Carl Zuñiga PROF 14(COMP METB)on 022 Albumin [Mass/Vol] 3.9 g/dL Normal 3.4-5.0 [facility] Comment on above: Performed By: #### B SECRETARY ADMINISTRATIVE ASSISTANT, CMP, HSTROPN #### [facility] [address] [place] [address] Dr. Carl Zuñiga Albumin/Globulin [Mass ratio] 1.5 {ratio} Normal [facility] Comment on above: Performed By: #### B SECRETARY ADMINISTRATIVE ASSISTANT, CMP, HSTROPN #### [facility] [address] [address] [address] Carl Zuñiga ALP [Catalytic activity/Vol] 96 U/L Normal 46-116 [facility] Comment on above: Performed By: #### B SECRETARY ADMINISTRATIVE ASSISTANT, CMP, HSTROPN #### [facility] [address] [place] [address] Dr. Carl Zuñiga ALT [Catalytic activity/Vol] 38 U/L Normal 14-59 [facility] Comment on above: Performed By: #### B SECRETARY ADMINISTRATIVE ASSISTANT, CMP, HSTROPN #### [facility] [address] [place] [address] Dr. Carl Zuñiga Anion gap [Moles/Vol] 9.8 mmol/L Normal [facility] Comment on above: Performed By: #### B SECRETARY ADMINISTRATIVE ASSISTANT, CMP, HSTROPN #### [facility] [address] [place] [address] Dr. Carl Zuñiga AST [Catalytic activity/Vol] 16 U/L Normal 15-37 [facility] Comment on above: Performed By: #### B SECRETARY ADMINISTRATIVE ASSISTANT, CMP, HSTROPN #### [facility] [address] [place] [address] Dr. Carl Zuñiga Bilirubin [Mass/Vol] 0.5 mg/dL Normal 0.2-1.0 [facility] Comment on above: Performed By: #### B SECRETARY ADMINISTRATIVE ASSISTANT, CMP, HSTROPN #### [facility] [address] [place] [address] Dr. Carl Zuñiga Calcium [Mass/Vol] 9.2 mg/dL Normal 8.5-10.[address] [facility] Comment on above: Performed By: #### B SECRETARY ADMINISTRATIVE ASSISTANT, CMP, HSTROPN #### [facility] [address] [place] [address] Dr. Carl Zuñiga Chloride [Moles/Vol] 103 mmol/L Normal 98-107 [facility] Comment on above: Performed By: #### B SECRETARY ADMINISTRATIVE ASSISTANT, CMP, HSTROPN #### [facility] [address] [place] [address] Dr. Carl Zuñiga CO2 [Moles/Vol] 29.1 mmol/L Normal 21.0-32.0 [facility] Comment on above: Performed By: #### B SECRETARY ADMINISTRATIVE ASSISTANT, CMP, HSTROPN #### [facility] [address] [place] [address] Dr. Carl Zuñiga Creatinine [Mass/Vol] 0.92 mg/dL Normal 0.55-1.02 [facility] Comment on above: Performed By: #### B SECRETARY ADMINISTRATIVE ASSISTANT, CMP, HSTROPN #### [facility] [address] [place] [address] Dr. Carl Zuñiga EGFR-AF FRENCH >60 Normal >=60 [facility] Comment on above: Performed By: #### B SECRETARY ADMINISTRATIVE ASSISTANT, CMP, HSTROPN #### [facility] [address] [place] [address] Dr. Carl Zuñiga EGFR-NON AF FRENCH >60 Normal >=60 [facility] Comment on above: Performed By: #### B SECRETARY ADMINISTRATIVE ASSISTANT, CMP, HSTROPN #### [facility] [address] [place] [address] Dr. Carl Zuñiga Globulin (S) [Mass/Vol] 2.6 g/dL Normal [facility] Comment on above: Performed By: #### B SECRETARY ADMINISTRATIVE ASSISTANT, CMP, HSTROPN #### [facility] [address] [place] [address] Dr. Carl Zuñiga Glucose [Mass/Vol] 109 mg/dL Critically high 74-106 [facility] Comment on above: Performed By: #### B SECRETARY ADMINISTRATIVE ASSISTANT, CMP, HSTROPN #### [facility] [address] [place] [address] Dr. Carl Zuñiga Potassium [Moles/Vol] 3.9 mmol/L Normal 3.5-5.1 [facility] Comment on above: Performed By: #### B SECRETARY ADMINISTRATIVE ASSISTANT, CMP, HSTROPN #### [facility] [address] [place] [address] Dr. Carl Zuñiga Protein [Mass/Vol] 6.5 g/dL Normal 6.4-8.2 [facility] Comment on above: Performed By: #### B SECRETARY ADMINISTRATIVE ASSISTANT, CMP, HSTROPN #### [facility] [address] [address] [address] Carl Zuñiga Sodium [Moles/Vol] 138 mmol/L Normal 136-145 [facility] Comment on above: Performed By: #### B SECRETARY ADMINISTRATIVE ASSISTANT, CMP, HSTROPN #### [facility] [address] [address] [address] Carl Zuñiga Urea nitrogen [Mass/Vol] 14.0 mg/dL Normal 7.0-18.0 [facility] Comment on above: Performed By: #### B SECRETARY ADMINISTRATIVE ASSISTANT, CMP, HSTROPN #### [facility] [address] [address] [address] Carl Zuñiga Urea nitrogen/Creatinine [Mass ratio] 15.2 mg/mg Normal [facility] Comment on above: Performed By: #### B SECRETARY ADMINISTRATIVE ASSISTANT, CMP, HSTROPN #### [facility] [address] [address] [address] Carl Zuñiga TROPONIN, HIGH SENSITIVITYon 03-07-2022 HSTROP 2.8 pg/mL Critically low 4.0-51.3 [facility] Comment on above: Result Comment: CUT- OFF POINTS HAVE BEEN ESTABLISHED BASED ON THE FOURTH UNIVERSAL DEFINITIONS OF MYOCARDIAL INFARCTION. THE UPPER REFERENCE LIMIT (URL) OF TROPONIN, DEFINED THE 99TH PERCENTILE OF cTnI DISTRIBUTION IN A REFERENCE POPULATION, HAS BEEN CONFIRMED THE DECISION THRESHOLD FOR MT DIAGNOSIS. Performed By: #### B SECRETARY ADMINISTRATIVE ASSISTANT, CMP, HSTROPN #### [facility] [address] [address] [address] Carl Zuñiga XR CHEST 1 Von [...] by: DIANA BREAUX Date: 2022-03-07 10:[address] [facility] CT CSPINE WO CONon CT CSPINE [...] by: MARQUES PATEL Date: 2021-07-10 02:[address] [facility] CT HEAD WO CONon 07-10-2021 CT [...] by: MARQUES PATEL Date: 2021-07-10 02:44 Normal [facility] XR CHEST 1 Von 07-10-2021 XR [...] by: MARQUES PATEL Date: 2021-07-10 02:46 Normal [facility] XR PELVIS 1_2 VIEWSon 2020 XR [...] by: MARQUES PATEL Date: 2021-07-10 02:47 Normal [facility] Vital Signs Date Time Vital Sign Value Performing Clinician Faci litsal 11-12-2023 11:15-0400 Body temperature 97.9 [degF] Jayashree Avilez MD Work Phone: [facility] 11-12-2023 11:15-0400 Diastolic blood pressure 58 mm[Hg] Jayashree Avilez MD Work Phone: [facility] 11-12-2023 11:15-0400 Heart rate 74 /min Jayashree Avilez MD Work Phone: [facility] 11-12-2023 11:15-0400 Respiratory rate 18 /min Jayashree Avilez MD Work Phone: [facility] 11-12-2023 11:15-0400 SaO2% (BldA) [Mass fraction] 96 % Jayashree Avilez MD Work Phone: [facility] 11-12-2023 11:15-0400 Systolic blood pressure 116 mm[Hg] Jayashree Avilez MD Work Phone: [facility] 11-10-2023 03:41-0400 Body height 162.6 cm Jayashree Avielz MD Work Phone: [facility] 11-10-2023 03:41-0400 Body mass index (BMI) [Ratio] 33.34 kg/m2 Jayashree Avilez MD Work Phone: [facility] [employer] 11-10-2023 03:41-0400 Body weight 88.1 kg Jayashree Avilez MD Work Phone: [facility] [employer] 08-03-2023 08:23-0500 Blood Pressure Location Pamela Benson 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 Start: 11-10-2023 End: 11-12-2023 Evaluation and management of inpatient Jayashree Avilez MD Work Phone: [address] MED SURG Comment on above: Bleeding from the ge nitourinary system Start: 11-09-2023 End: 11-09-2023 ambulatory Kobe Cherie Facility:[facility] Start: 11-02-2023 End: 11-02-2023 ambulatory KOBE CHERIE Not Available Start: 10-06-2023 End: 10-06-2023 ambulatory REBECCA [facility] Start: 09-23-2023 End: 09-23-2023 ambulatory [facility] Start: 08-26-2023 End: 08-26-2023 ambulatory [facility] Start: 08-24-2023 End: 08-25-2023 ambulatory Pamela Harvey. Marcelino Facility:[facility] Start: 08-24-2023 End: 08-24-2023 Off-Site Pamela M. Swapnae [facility] [place] Start: 08-04-2023 End: 08-05-2023 ambulatory Pamela M. Lue Facility[facility] Start: 08-04-2023 End: 08-04-2023 Lab Drop off Pamela M. Lue [facility] Start: 08-03-2023 End: 08-04-2023 ambulatory Pamela M. Lue Facility:[facility] Start: 08-03-2023 End: 08-03-2023 Patient encounter procedure [facility]ase [facility] Start: 07-27-2023 End: 07-27-2023 ambulatory KOBE CHERIE Not Available Start: 07-22-2023 ambulatory Pamela Lue Facility:[facility] Start: 07-06-2023 ambulatory Pamela Lue Facility:[facility] Start: 07-05-2023 End: 07-05-2023 ambulatory KOBE CHERIE Not Available Start: 05-25-2023 End: 05-25-2023 ambulatory KOBE CHERIE Not Available Start: 07-05-[address] RIVKA PAN Faci lity:H1 Start: 05-14-[address] ANDER Ruano ity:H1 Start: 03-07-[address] ANDER Ruano ity:H1 Start: 07-10-[address] RITA Ruano ity:H1 Procedures Date Procedure Procedure Detail Performing Clinician Start: 11-12-2023 Glucose blood reagent strip Jayashree Avilez MD Work Phone: Start: 11-12-2023 Glucose blood reagent strip Jayashree Avilez MD Work Phone: Start: 11-11-2023 Glucose blood reagent strip Jayashree Avilez MD Work Phone: Start: 11-11-2023 Glucose blood reagent strip Jayashree Avilez MD Work Phone: Start: 11-11-2023 End: 11-11-2023 Comprehensive metabolic panel Annabelle Moss MD Work Phone: Start: 11-11-2023 End: 11-11-2023 Glucose blood reagent strip Jayashree Maciel MD Work Phone: Start: 11-10-2023 Glucose blood reagent strip Jayashree Avilez MD Work Phone: Start: 11-10-2023 Glucose blood reagent strip Jayashree Avilez MD Work Phone: Start: 11-10-2023 Mri pelvis w/o & w/c ontrast material Annabelle Moss MD Work Phone: Start: 11-10-2023 Glucose blood reagent strip Jayashree Avilez MD Work Phone: Start: 11-10-2023 Ct head/brain w/o co ntrast material Annabelle Moss MD Work Phone: Start: 11-10-2023 Glucose blood reagent strip Jayashree Avilez MD Work Phone: Start: 11-10-2023 End: 11-10-2023 Hemoglobin glycosylated a1c Jayashree Maciel MD Work Phone: Start: 11-10-2023 PREVIOUS SPECIMEN Jarrell Avilez MD Work Phone: Start: 11-10-2023 Speech and language therapy shaq Carroll MD Work Phone: Start: 11-10-2023 BLOOD BANK SPECIMEN Chava Avilez MD Work Phone: Start: 11-10-2023 Lipid panel Kadie dangelo MD Work Phone: Start: 11-10-2023 End: 11-10-2023 Ecg routine ecg w/least 12 lds i&r only Kadie Carroll MD Work Phone: Start: 11-10-2023 Lipid 1996 panel - S adam or Plasma Bernadette Metzger NEW PRODUCT TRAINER.LAB HEAD Work Phone: [phone] Pamela Benson Plan of Treatment Date Care Activity Detail Author Start: 11-09-2028 Lipid panel [facility] [place] Start: 11-10-2026 Diabetes Screening Diabetes Screenin g [facility] Start: 11-10-2024 GFR test (Diabetes, CKD 3-4, OR last GFR 15-59) GFR test (Diabetes, CKD 3-4, OR last GFR 15-59) [facility] Start: 03-11-2024 Influenza vaccination Influenz a Vaccine (Season Ended) [facility] Start: 02-09-2024 Influenza vaccination Flu vacc ine (Season Ended) [facility] Start: 12-28-2023 End: 12-28-2023 ambulatory 12/28/2023 10:00 AM EDT Visit (SP) Office Gynecology Oncology [address] [place] [address] [place] [address] Mariam Mckinley MD [address] [place] [address] Vaginal Mass Gynecology Oncology Comment on above: Vaginal Mass Start: 12-09-2023 End: 12-09-2023 Patient encounter procedure Radiation Oncology Comment on above: Dr martha ba and oral treating cervix pelvis full bladderper patient son needs this time and day for appt alyx ahmadi iv and ora l treating cervix pelvis full bladder//Per Son patient needs this time and day Start: 12-07-2023 End: 12-07-2023 Patient encounter procedure 12/07/2023 1:00 PM EDT Office Visit Radiation Oncology [address] [place] [address] [place] [address] [place] [address] New Consult Radiation Oncology Comment on above: New Consult Start: 12-02-2023 End: 12-02-2023 Patient encounter procedure 12/02/2023 1:30 PM EDT Appointment Radiology [facility] [address] [place] [address] Comment on above: pet scan Start: 11-28-2023 End: 11-28-2023 Patient encounter procedure 11/28/2023 9:00 AM EDT Office Visit Radiation Oncology [address] [place] [address] El Ahmadi MD [address] [place] [address] Dr Jareth Natarajan cevical cancer Radiation Oncology Comment on above: Dr Jareth Natarajan cevical cancer Start: 11-11-2023 Annual Wellness Visi t (Medicare) Annual Wellness Visit (Medicare) [facility] Start: 07-11-2023 Advance Directive Discussion Advance Directive Discussion [facility] Start: 07-11-2023 Behavioral Health Screening Behavioral Health Screening [facility] Start: 03-11-2023 Covid-19 Vaccine ( season) Covid-19 Vaccine ( season) [facility] Start: 03-11-2023 Covid-19 Vaccine ( season) Covid-19 Vaccine ( season) [facility] Start: 03-11-2023 COVID-19 Vaccine ( season) COVID-19 Vaccine ( season) [facility] Start: 2020 Pneumococcal 65+ yea rs Vaccine (1 of 1 - PCV) Pneumococcal 65+ years Vaccine (1 of 1 - PCV) [facility] Start: 2020 Pneumococcal Vaccine : 65+ (1 of 1 - PCV) Pneumococcal Vaccine: 65+ (1 of 1 - PCV) [facility] Start: 2020 Screening for osteoporosis Bone Density Screening [facility] Start: 2015 Respiratory Syncytia l Virus (RSV) or age 60 yrs+ (1 - 1-dose 60+ series) Respiratory Syncytial Virus (RSV) or age 60 yrs+ (1 - 1-dose 60+ series) [facility] Start: 2015 RSV Vaccine (1 - 1-dose 60+ series) RSV Vaccine (1 - 1-dose 60+ series) [facility] Start: 2010 Screening for osteoporosis DEXA (modify frequency per FRAX score) [facility] Start: 2005 Screening for malignant neoplasm of breast Breast cancer screen [facility] Start: 2005 Shingles vaccine (1 of 2) Shingles vaccine (1 of 2) [facility] Start: 2005 Shingrix Vaccine (1 of 2) Shingrix Vaccine (1 of 2) [facility] Start: 2000 Screening for malignant neoplasm of colon [facility] Start: 1995 Screening for malignant neoplasm of breast Mammogram Screening [facility] Start: 1974 DTaP/Tdap/Td vaccine (1 - Tdap) DTaP/Tdap/Td vaccine (1 - Tdap) [facility] Start: 1974 Urine microalbumin profile DTaP,Tdap,Td Vaccine (1 - Tdap) [facility] Start: 1973 Hepatitis C screening [facility] Start: 1967 Depression Screen Depression Screen [facility] Glucose [Mass/volume ] in Serum or Plasma [facility] Comment on above: 4X Daily (AC & HS) u ntil discontinued starting 11/10/2023 As Needed until disc ontinued starting 11/10/2023 OUTSIDE SURG PATH SLIDE REVIEW OUTSIDE SURG PATH SLIDE REVIEW Lab Routine High grade squamous intraepithelial lesion (HGSIL), grade 3 SUDHA, on biopsy of cervix Ordered: 11/23/2023 [facility] Work Phone: Comment on above: Ordered: 11/23/2023 Oxygen therapy [Minimum Data Set] Initiate Oxygen Therapy Protocol Respiratory Care Routine Daily until discontinued starting 11/10/2023 [facility] Comment on above: Daily until disconti nued starting 11/10/2023 End: 12-24-2024 PET+CT Guidance for localization of tumor of Skull base to mid-thigh-- W 18F-FDG IV NM PET/CT SKULL-THIGH INITIAL Radiology Routine 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) 1 Occurrences starting 11/25/2023 until 12/24/2024 [facility] Work Phone: Comment on above: 1 Occurrences starti ng 11/25/2023 until 12/24/2024 End: 11-10-2023 SPECIMEN REJECTION [facility] [employer] Work Phone: Comment on above: Once for 1 Occurrenc es starting 11/10/2023 until 11/10/2023 Surgical Pathology Surgical Path ology Lab Routine Bleeding from the genitourinary system Release Upon Ordering for 1 Occurrences starting 11/11/2023 [facility] Comment on above: Release Upon Orderin g for 1 Occurrences starting 11/11/2023 Immunizations Immunization Date Immunization Notes Care Provider Jairo burton 05-27-2022 SARS-CoV-2 (COVID-19 ) mRNAMUL.[id number] Pamela Lue [facility] 06-12-2021 SARS-CoV-2 (COVID-19 ) mRNA BNT-162b2 vax Pamela Lue [facility] 08-13-2020 SARS-CoV-2 (COVID-19 ) mRNA BNT-162b2 vax Pamela Lue [facility] Comment on above: Result Comment: 2023: [id number] 07-23-2020 SARS-CoV-2 (COVID-19 ) mRNA BNT-162b2 vax Pamela Lue [facility] Comment on above: Result Comment: 2023: [id number] Payers Date Payer Category Payer Self-pay 2023 Medicare [id number] 2020 Medicaid [id number] 2020 Medicaid MEDICAID [facility] MEDICAID [id number] 2020-Present [phone] [address] [place] [address] Medicaid [id number] 2020 Medicare [id number] 2020 Medicare MEDICARE MEDICAR E A AND B [id number] 2020-Present [phone] [address] [address] [place] [address] Medicare [id number] 1955 Unknown [id number] 1955 Unknown [id number] 1955 Unknown [id number] 1955 Unknown [id number] 1955 Unknown [id number] 1955 Unknown [id number] 1955 Unknown [id number] 1955 Unknown [id number] Unknown [id number] Social History Date Type Detail Facility Start: 08-03-2023 Tobacco smoking status Never s moked tobacco (finding) [facility] Start: 11-28-2023 Sex Assigned At Female F [facility] Tobacco smoking stat [facility] Tobacco smoking consumption unknown [facility] Start: 1955 Sex Assigned At Not on file [facility] Start: 11-28-2023 Tobacco smoking stat [facility] Ex-smoker [facility] History of tobacco use Current smoker [facility] History of tobacco use Cigarette Smoker [facility] Start: 11-28-2023 Cigarettes smoked current (pack per day) - Reported 0.5 [facility] Start: 11-28-2023 Tobacco use and exposure Smokeless tobacco non-user [facility] Start: 11-28-2023 Alcohol intake Current drinke r of alcohol (finding) [facility] National Score (1-10 0), lower number is lower risk 63 [facility] Functional Status Date Assessment Result Facility 08-03-2023 Functional Status N/A [facility] Clinical Notes 08-03-2023 to 11-28-2023 Nathalie Saleh RN - 11/28/2023 10:22 AM Nathalie Gooden RN - 11/28/2023 10:22 AM Wil Ellison MD - 11/12/2023 9:06 AM Annabelle Wolfe MD - 11/12/2023 8:16 AM EDT Note Date & Type Note Facility 11-28-2023 Note Education (THOMAS) CANDIS JOHNSON ([id number]) 1955 F DEF Date Time Provider Department 11/28/23 NATHALIE SALEH Reason for Visit: Patient Education [91] Visit Notes: >> Nathalie Saleh, RN TueNovember 28, 2023 10:22 AM Status: Signed Radiation Therapy - Patient Education Note PATIENT NAME: Candis Johnson PATIENT November 28, 2023 [facility]ACILITY[facility]LOCATION: [facility] READINESS TO LEARN Cognitive Ability: Confused at times Motivation to learn: Disinterested / avoidant Family Support: Moderate - Family present but overwhelmed Instruction provide to: Patient and family member Patient learns best by: Written Instruction - Hand-outs Multiple Methods Factors effecting learning: Other Pt Deaf, Reads lips only Physical limitations effecting learning: Sensory Deficit Hearing: Deaf LEARNING RESPONSE Diagnosis: Pt simulated today for radiation therapy to pelvis. Education Topic/Teaching Points: Radiation therapy, Side effects, and OTV: Method of instruction: Written instruction/Handouts Patient /Family response: Patient and family verbalized understanding of radiation treatments, side effects, OTV, and transportation. Follow-up plan: Recommend - Recommend continued instruction and follow up as directed Supplemental material: Informational handouts on Diarrhea and Pelvic handout. 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] During your visit today, we recorded the following information about you: Allergies As of Date: 11/28/2023 (No Known Allergies) Date Reviewed: 11/28/2023 Reviewed by: Monica Boyle LPN - Fully Assessed Encounter Status:Closed by NATHALIE SALEH on 11/28/23 [facility] 11-28-2023 Nurse Note Radiation Therapy - Patient Education Note PATIENT NAME: Candis Johnson PATIENT November 28, 2023 [facility] ([facility] FACILITY/LOCATION: [facility] READINESS TO LEARN Cognitive Ability: Confused at times Motivation to learn: Disinterested / avoidant Family Support: Moderate - Family present but overwhelmed Instruction provide to: Patient and family member Patient learns best by: Written Instruction - Hand-outs Multiple Methods Factors effecting learning: Other Pt Deaf, Reads lips only Physical limitations effecting learning: Sensory Deficit Hearing: Deaf LEARNING RESPONSE Diagnosis: Pt simulated today for radiation therapy to pelvis. Education Topic/Teaching Points: Radiation therapy, Side effects, and OTV: Method of instruction: Written instruction/Handouts Patient /Family response: Patient and family verbalized understanding of radiation treatments, side effects, OTV, and transportation. Follow-up plan: Recommend - Recommend continued instruction and follow up as directed Supplemental material: Informational handouts on Diarrhea and Pelvic handout. Referral (recommendation): Social Work Patient has an Onbody or Implanted device: No Signed by: Nathalie Saleh RN [facility] 11-28-2023 Nurse Note Radiation Therapy - Patient Education Note PATIENT NAME: Candis Johnson PATIENT November 28, 2023 [facility] ([facility] FACILITY/LOCATION: [facility] READINESS TO LEARN Cognitive Ability: Confused at times Motivation to learn: Disinterested / avoidant Family Support: Moderate - Family present but overwhelmed Instruction provide to: Patient and family member Patient learns best by: Written Instruction - Hand-outs Multiple Methods Factors effecting learning: Other Pt Deaf, Reads lips only Physical limitations effecting learning: Sensory Deficit Hearing: Deaf LEARNING RESPONSE Diagnosis: Pt simulated today for radiation therapy to pelvis. Education Topic/Teaching Points: Radiation therapy, Side effects, and OTV: Method of instruction: Written instruction/Handouts Patient /Family response: Patient and family verbalized understanding of radiation treatments, side effects, OTV, and transportation. Follow-up plan: Recommend - Recommend continued instruction and follow up as directed Supplemental material: Informational handouts on Diarrhea and Pelvic handout. Referral (recommendation): Social Work Patient has an Onbody or Implanted device: No Signed by: Nathalie Saleh RN documented in this encounter [facility] 11-12-2023 Hospital course Narrative Junior Systems Analyst/Onc Discharge Summary [facility] Patient Name: Candis Johnson Patient : 1955 Primary Care Physician: Ander Langley DO Admit Date: 11/10/2023 Principal Diagnosis: Vaginal Mass Other Diagnosis: Vaginal mass [N89.8] Patient Active Problem List Diagnosis Vaginal mass Infection: No Hospital Acquired: No Surgical Operations & Procedures: None Consultations: None Pertinent Findings & Procedures: Candis Johnson is a 68 y.o. female admitted for surgical examination of vaginal mass as transfer from [facility]; HD#1 (11/09): Patient is hard of hearing and there was concern for history of stroke vs AMS; CT head 11/10/23: wnl MRI Pelvis: A 5.9 x 3.8 cm enhancing mass within the cervix extending into the lower uterine segment is highly suspicious for cervical cancer and there is extension into the bilateral parametria with apparent invasion of the bladder wall and suspected mild extension into the upper vagina. Uterus appears to be septate and both endometrium moieties are distended with complicated fluid, likely due to obstruction from the cervical mass. Dilated right distal ureter may be due to obstruction from bladder wall implant. 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 HD #2 POD#0 (11/10): Hgb 9.0, Cr 1.0, Patient underwent Operative Hysteroscopy, Cervix Biopsy, Cystoscopy, Excision of skin mole HD #3 POD#1 (11/11): Patient discharged for follow up outpatient Tuesday. Discharged POD#1 S/p EUA, Operative Hysteroscopy, Cervix Biopsy, Cystoscopy, Excision of skin mole. Discharge instructions reviewed and questions answered. Course of patient: normal Discharge to: Home Readmission planned: No Recommendations on Discharge: Medications: Medication List You have not been prescribed any medications. Activity: Pelvic rest. Nothing PV until follow-up established. Resume other activity as tolerated. Diet: regular diet Follow up: Condition on discharge: good and stable Discharge Date: 11/14/23 Comments: Home care, Follow-up care, restrictions reviewed. Wil Mai MD Embroidery Worker Resident [facility] 11/12/2023, 9:07 AM documented in this encounter [facility] 11-12-2023 History of Present illness Narrative Gynecology Oncology Progress Note Candis Johnson is a 68 y.o. female HD#3, POD#1 who transferred from [place] due to concern for vaginal mass Patient seen and examined. Communicated via white board. Pain is controlled. She is urinating in a hat. She is ambulating. Patient has not asked for pain meds or indicated she was in pain. She appeared happy to see medical staff this morning. Vitals: Vitals: 11/11/23 1900 11/11/23 1926 11/11/23 2331 11/12/23 0743 BP: 132/80 (!) 161/81 103/79 122/61 Pulse: 69 87 72 57 Resp: 17 20 18 18 Temp: 97.2 F (36.2 C) 97.3 F (36.3 C) 97.5 F (36.4 C) 98.4 F (36.9 C) TempSrc: Temporal Axillary Axillary Oral SpO2: 93% 94% 96% 96% Weight: Height: Intake/Output: Last Shift: I/O last 3 completed shifts: In: 3547 [P.O.:450; I.V.:3066.9; IV Piggyback:30.1] Out: 3220 [Urine:3200; Blood:20] Current Shift: I/O this shift: In: - Out: 175 [Urine:175] 1500 mL in the last 7 hrs of urine 125 mL/hr Physical Exam: General: Alert and oriented, no acute distress HEENT: normocephalic, atraumatic, supple, symmetrical, trachea midline, Pupils equal and reactive to light, Extraocular muscles intact, sclera non icteric Respiratory: Unlabored respirations, no wheezes or rhonchi Cardiovascular: Regular rate and rhythm Abdomen: soft, non tender Extremities: No LE edema, no calf tenderness or swelling Psych: affect appropriate Pelvic Exam: deferred, scant blood noted in diaper Lab: Recent Results (from the past 24 hour(s)) CBC with Auto Differential Collection Time: 11/11/23 8:49 AM Result Value Ref Range WBC 6.8 3.5 - 11.3 k/uL RBC 3.29 (L) 3.95 - 5.11 m/uL Hemoglobin 9.0 (L) 11.9 - 15.1 g/dL Hematocrit 31.6 (L) 36.3 - 47.1 % MCV 96.0 82.6 - 102.9 fL MCH 27.4 25.2 - 33.5 pg MCHC 28.5 28.4 - 34.8 g/dL RDW 16.1 (H) 11.8 - 14.4 % Platelets 413 138 - 453 k/uL MPV 8.6 8.1 - 13.5 fL NRBC Automated 0.0 0.0 per 100 WBC Neutrophils % 62 36 - 65 % Lymphocytes % 18 (L) 24 - 43 % Monocytes % 14 (H) 3 - 12 % Eosinophils % 5 (H) 1 - 4 % Basophils % 0 0 - 2 % Immature Granulocytes % 1 (H) 0 % Neutrophils Absolute 4.27 1.50 - 8.10 k/uL Lymphocytes Absolute 1.19 1.10 - 3.70 k/uL Monocytes Absolute 0.91 0.10 - 1.20 k/uL Eosinophils Absolute 0.31 0.00 - 0.44 k/uL Basophils Absolute 0.03 0.00 - 0.20 k/uL Immature Granulocytes Absolute 0.04 0.00 - 0.30 k/uL RBC Morphology ANISOCYTOSIS PRESENT Comprehensive Metabolic Panel Collection Time: 11/11/23 8:49 AM Result Value Ref Range Sodium 138 136 - 145 mmol/L Potassium 4.3 3.7 - 5.3 mmol/L Chloride 109 (H) 98 - 107 mmol/L CO2 19 (L) 20 - 31 mmol/L Anion Gap 10 9 - 16 mmol/L Glucose 97 74 - 99 mg/dL BUN 11 8 - 23 mg/dL Creatinine 1.0 (H) 0.50 - 0.90 mg/dL Est, Glom Filt Rate 59 (L) >60 mL/min/1.73m2 Calcium 8.8 8.6 - 10.4 mg/dL Total Protein 5.4 (L) 6.6 - 8.7 g/dL Albumin 3.6 3.5 - 5.2 g/dL Albumin/Globulin Ratio 2.0 1.0 - 2.5 Total Bilirubin 0.3 0.00 - 1.20 mg/dL Alkaline Phosphatase 93 35 - 104 U/L ALT 14 10 - 35 U/L AST 33 10 - 35 U/L POC Glucose Fingerstick Collection Time: 11/11/23 11:55 AM Result Value Ref Range POC Glucose 83 65 - 105 mg/dL POC Glucose Fingerstick Collection Time: 11/11/23 6:02 PM Result Value Ref Range POC Glucose 92 65 - 105 mg/dL POC Glucose Fingerstick Collection Time: 11/11/23 8:00 PM Result Value Ref Range POC Glucose 120 (H) 65 - 105 mg/dL Assessment/Plan: Candis Johnson 68 y.o. female HD#3 transferred from [place] due to concern for vaginal mass - Doing well, vitals stable - s/p villarreal catheter, UOP adequate - IVF: d/c - Pain control: tylenol PRN - Labs: if sx - DVT Proph: SCDs - Abx: n/a - Diet: Adult - Encourage ambulation - Pathology pending Vaginal Bleeding - Patient originally transferred 08/12 concern for vaginal mass and bleeding - At OSH, differentials included anal vs vaginal bleeding as it was difficult to discern at the time - Mild to scant bleeding noted in patient's diaper this morning - Labs: - Hgb 6.5 at OSH > 2u pRBC > 8.9 > 8.7 > 9 - MRI 11/09: A 5.9 x 3.8 cm enhancing mass within the cervix extending into the lower uterine segment is highly suspicious for cervical cancer and there is extension into the bilateral parametria with apparent invasion of the bladder wall and suspected mild extension into the upper vagina. Uterus appears to be septate and both endometrium moieties are distended with complicated fluid, likely due to obstruction from the cervical mass. Dilated right distal ureter may be due to obstruction from bladder wall implant. 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 - Patient underwent Operative Hysteroscopy, Cervix Biopsy, Cystoscopy, Excision of skin mole which demonstrated significant disease process - Pathology sent to biopsy - Thorough conversation had with POA/son, Landen, regarding surgical findings - Will continue to monitor patient closely Poor Speech with Deafness - Discussed with nursing at [facility] and patient's son, Landen - Per nursing, patient is alert and oriented however able to communicate mainly through written messages. 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 Bilateral enlargement. Grade 2 diastolic dysfunction. - Repeat EKG 5/2: Normal sinus rhythm, anterior infarct age undetermined (old, seen on EKG on 08/15/23) - Nitroglycerin ordered PRN - Ranolazine not ordered inpatient - Continue to monitor Anemia - Admit Hgb @ [place] 6.5 - S/p 2u pRBC Hgb 8.9 - Admit Hgb at [facility] 8.7 - Hgb 5/3; 9.0 - Will Continue to monitor Hyperlipidemia - Lipid studies ordered on admission wnl - Previously on atorvastatin on home - Not ordered inpatient Diabetes - Hgb A1c on admission 4.5% - POCT AC/HS glucose ordered with Insulin Sliding scale - Home meds ordered: acarbose 100 mg BID - Home meds not ordered: Metformin, dulaglutide - Continue to monitor insulin requirement Schizophrenia - Per nursing at [facility] and patient's son, patient has significant PMH of schizophrenia - Home meds include Topomax and Lumaterprone (not on formulary at [facility]. Consulted with IP pharmacy and they recommended patient's son bring in and pharmacy verifies). - Can consider psychiatry consult if needed - Continue to monitor Asthma/COPD - VSS, no conversational dyspnea noted - Albuterol/Ipatropium ordered PRN per inpatient protocol - Continue to monitor HTN - BP overall stable at this time - Sacubitril/Valsaratan ordered with parameters to hold if Systolic <120 or HR <60 - Continue to monitor Protein Deficient Malnutrition - Albumin noted to be 2.1 on admission - Will supplement with Boost/Ensure when not NPO Hydronephrosis with Hydroureter - Seen on CT/AP 06/06/23 Hx Appendectomy Hx C/S BMI 33 Principal Problem: Vaginal mass Resolved Problems: * No resolved hospital problems. * Attending: Dr. Avilez Please page the resident named below with questions and concerns. Annabelle Moss MD OBGYN Resident 11/12/2023, 8:16 AM Gynecology Oncology Progress Note Candis Johnson is a 68 y.o. female HD#2, POD#0 who transferred from [place] due to concern for vaginal mass Patient seen and examined. Communicated via white board. Pain is controlled. She is urinating in a hat. She is ambulating. Patient has not asked for pain meds or indicated she was in pain. Vitals: Vitals: 11/11/23 1845 11/11/23 1900 11/11/23 1926 11/11/23 2331 BP: 136/72 132/80 (!) 161/81 103/79 Pulse: 73 69 87 72 Resp: 15 17 20 18 Temp: 97.2 F (36.2 C) 97.3 F (36.3 C) 97.5 F (36.4 C) TempSrc: Temporal Axillary Axillary SpO2: 94% 93% 94% 96% Weight: Height: Intake/Output: Last Shift: I/O last 3 completed shifts: In: 2970.4 [P.O.:610; I.V.:2330.4; IV Piggyback:30.1] Out: 1720 [Urine:1700; Blood:20] Current Shift: I/O this shift: In: - Out: 950 [Urine:950] 950 mL in the last 7 hrs of urine 135 mL/hr Physical Exam: General: Alert and oriented, no acute distress HEENT: normocephalic, atraumatic, supple, symmetrical, trachea midline, Pupils equal and reactive to light, Extraocular muscles intact, sclera non icteric Respiratory: Unlabored respirations, no wheezes or rhonchi Cardiovascular: Regular rate and rhythm Abdomen: soft, non tender Extremities: No LE edema, no calf tenderness or swelling Psych: affect appropriate Pelvic Exam: deferred, scant blood noted in diaper Lab: Recent Results (from the past 24 hour(s)) POC Glucose Fingerstick Collection Time: 11/11/23 2:14 AM Result Value Ref Range POC Glucose 88 65 - 105 mg/dL POC Glucose Fingerstick Collection Time: 11/11/23 8:01 AM Result Value Ref Range POC Glucose 83 65 - 105 mg/dL CBC with Auto Differential Collection Time: 11/11/23 8:49 AM Result Value Ref Range WBC 6.8 3.5 - 11.3 k/uL RBC 3.29 (L) 3.95 - 5.11 m/uL Hemoglobin 9.0 (L) 11.9 - 15.1 g/dL Hematocrit 31.6 (L) 36.3 - 47.1 % MCV 96.0 82.6 - 102.9 fL MCH 27.4 25.2 - 33.5 pg MCHC 28.5 28.4 - 34.8 g/dL RDW 16.1 (H) 11.8 - 14.4 % Platelets 413 138 - 453 k/uL MPV 8.6 8.1 - 13.5 fL NRBC Automated 0.0 0.0 per 100 WBC Neutrophils % 62 36 - 65 % Lymphocytes % 18 (L) 24 - 43 % Monocytes % 14 (H) 3 - 12 % Eosinophils % 5 (H) 1 - 4 % Basophils % 0 0 - 2 % Immature Granulocytes % 1 (H) 0 % Neutrophils Absolute 4.27 1.50 - 8.10 k/uL Lymphocytes Absolute 1.19 1.10 - 3.70 k/uL Monocytes Absolute 0.91 0.10 - 1.20 k/uL Eosinophils Absolute 0.31 0.00 - 0.44 k/uL Basophils Absolute 0.03 0.00 - 0.20 k/uL Immature Granulocytes Absolute 0.04 0.00 - 0.30 k/uL RBC Morphology ANISOCYTOSIS PRESENT Comprehensive Metabolic Panel Collection Time: 11/11/23 8:49 AM Result Value Ref Range Sodium 138 136 - 145 mmol/L Potassium 4.3 3.7 - 5.3 mmol/L Chloride 109 (H) 98 - 107 mmol/L CO2 19 (L) 20 - 31 mmol/L Anion Gap 10 9 - 16 mmol/L Glucose 97 74 - 99 mg/dL BUN 11 8 - 23 mg/dL Creatinine 1.0 (H) 0.50 - 0.90 mg/dL Est, Glom Filt Rate 59 (L) >60 mL/min/1.73m2 Calcium 8.8 8.6 - 10.4 mg/dL Total Protein 5.4 (L) 6.6 - 8.7 g/dL Albumin 3.6 3.5 - 5.2 g/dL Albumin/Globulin Ratio 2.0 1.0 - 2.5 Total Bilirubin 0.3 0.00 - 1.20 mg/dL Alkaline Phosphatase 93 35 - 104 U/L ALT 14 10 - 35 U/L AST 33 10 - 35 U/L POC Glucose Fingerstick Collection Time: 11/11/23 11:55 AM Result Value Ref Range POC Glucose 83 65 - 105 mg/dL POC Glucose Fingerstick Collection Time: 11/11/23 6:02 PM Result Value Ref Range POC Glucose 92 65 - 105 mg/dL POC Glucose Fingerstick Collection Time: 11/11/23 8:00 PM Result Value Ref Range POC Glucose 120 (H) 65 - 105 mg/dL Assessment/Plan: Candis Johnson 68 y.o. female HD#2 transferred from [place] due to concern for vaginal mass - Doing well, vitals stable - s/p villarreal catheter, UOP adequate - IVF: 75 cc/hr - Pain control: tylenol PRN - Labs: if sx - DVT Proph: SCDs - Abx: n/a - Diet: Adult - Encourage ambulation - Pathology pending Vaginal Bleeding - Patient originally transferred 08/12 concern for vaginal mass and bleeding - At OSH, differentials included anal vs vaginal bleeding as it was difficult to discern at the time - Mild to scant bleeding noted in patient's diaper this morning - Labs: - Hgb 6.5 at OSH > 2u pRBC > 8.9 > 8.7 > 9 - MRI 11/09: A 5.9 x 3.8 cm enhancing mass within the cervix extending into the lower uterine segment is highly suspicious for cervical cancer and there is extension into the bilateral parametria with apparent invasion of the bladder wall and suspected mild extension into the upper vagina. Uterus appears to be septate and both endometrium moieties are distended with complicated fluid, likely due to obstruction from the cervical mass. Dilated right distal ureter may be due to obstruction from bladder wall implant. 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 - Patient underwent Operative Hysteroscopy, Cervix Biopsy, Cystoscopy, Excision of skin mole which demonstrated significant disease process - Pathology sent to biopsy - Thorough conversation had with POA/son, Landen, regarding surgical findings - Will continue to monitor patient closely Poor Speech with Deafness - Discussed with nursing at [facility] and patient's son, Landen - Per nursing, patient is alert and oriented however able to communicate mainly through written messages. 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 Bilateral enlargement. Grade 2 diastolic dysfunction. - Repeat EKG 11/09: Normal sinus rhythm, anterior infarct age undetermined (old, seen on EKG on 08/15/23) - Nitroglycerin ordered PRN - Ranolazine not ordered inpatient - Continue to monitor Anemia - Admit Hgb @ [place] 6.5 - S/p 2u pRBC Hgb 8.9 - Admit Hgb at [facility] 8.7 - Hgb /; 9.0 - Will Continue to monitor Hyperlipidemia - Lipid studies ordered on admission wnl - Previously on atorvastatin on home - Not ordered inpatient Diabetes - Hgb A1c on admission 4.5% - POCT AC/HS glucose ordered with Insulin Sliding scale - Home meds ordered: acarbose 100 mg BID - Home meds not ordered: Metformin, dulaglutide - Continue to monitor insulin requirement Schizophrenia - Per nursing at [facility] and patient's son, patient has significant PMH of schizophrenia - Home meds include Topomax and Lumaterprone (not on formulary at [facility]. Consulted with IP pharmacy and they recommended patient's son bring in and pharmacy verifies). - Can consider psychiatry consult if needed - Continue to monitor Asthma/COPD - VSS, no conversational dyspnea noted - Albuterol/Ipatropium ordered PRN per inpatient protocol - Continue to monitor HTN - BP overall stable at this time - Sacubitril/Valsaratan ordered with parameters to hold if Systolic <120 or HR <60 - Continue to monitor Protein Deficient Malnutrition - Albumin noted to be 2.1 on admission - Will supplement with Boost/Ensure when not NPO Hydronephrosis with Hydroureter - Seen on CT/AP 06/06/23 Hx Appendectomy Hx C/S BMI 33 Principal Problem: Vaginal mass Resolved Problems: * No resolved hospital problems. * Attending: Dr. Avilez Please page the resident named below with questions and concerns. Annabelle Moss MD OBGYN Resident 11/12/2023, 1:25 AM Pt to room per bed. Patient's son at bedside. Gynecology Oncology Progress Note Candis Johnson is a 68 y.o. female HD#2 transferred from [place] due to concern for vaginal mass Patient seen and examined. Communicated via white board. Pain is controlled. Patient is tolerating oral intake and has been NPO since midnight. She is urinating in a hat. She reports any vaginal bleeding. She is ambulating. She had a bowel movement yesterday. Discussed with nursing overnight, state that her urine was blood tinged with some clots, likely from a vaginal origin. Discussed MRI findings with patient. She was tearful but understanding. Discussed possible surgery later this afternoon or tomorrow morning. Vitals: Vitals: 11/10/23 1520 11/10/23 1941 11/11/23 0500 11/11/23 0737 BP: (!) 104/59 (!) 106/51 107/64 131/61 Pulse: 79 90 74 71 Resp: 16 17 16 16 Temp: 98.9 F (37.2 C) 99 F (37.2 C) 98.8 F (37.1 C) 98.6 F (37 C) TempSrc: Oral Oral Oral Oral SpO2: 96% 96% 96% 100% Weight: Height: Intake/Output: Last Shift: I/O last 3 completed shifts: In: 1591 [P.O.:610; I.V.:950.9; IV Piggyback:30.1] Out: 2049 [Urine:2049] Current Shift: No intake/output data recorded. 1450 mL in the last 12 hrs of blood tinged urine with some clots (likely from a vaginal origin) ~120mL/hr Physical Exam: General: Alert and oriented, no acute distress HEENT: normocephalic, atraumatic, supple, symmetrical, trachea midline, Pupils equal and reactive to light, Extraocular muscles intact, sclera non icteric Respiratory: Unlabored respirations, no wheezes or rhonchi Cardiovascular: Regular rate and rhythm Abdomen: soft, non tender Extremities: No LE edema, no calf tenderness or swelling Psych: affect appropriate Pelvic Exam: deferred, scant blood noted in diaper Lab: Recent Results (from the past 24 hour(s)) POC Glucose Fingerstick Collection Time: 11/10/23 12:21 PM Result Value Ref Range POC Glucose 89 65 - 105 mg/dL POC Glucose Fingerstick Collection Time: 11/10/23 6:41 PM Result Value Ref Range POC Glucose 86 65 - 105 mg/dL POC Glucose Fingerstick Collection Time: 11/10/23 9:46 PM Result Value Ref Range POC Glucose 104 65 - 105 mg/dL POC Glucose Fingerstick Collection Time: 11/11/23 2:14 AM Result Value Ref Range POC Glucose 88 65 - 105 mg/dL POC Glucose Fingerstick Collection Time: 11/11/23 8:01 AM Result Value Ref Range POC Glucose 83 65 - 105 mg/dL Assessment/Plan: Candis Johnson 68 y.o. female HD#2 transferred from [place] due to concern for vaginal mass - Doing well, vitals stable - s/p villarreal catheter, UOP adequate - IVF: 75 cc/hr - Pain control: tylenol PRN - Labs:AM CBC and CMP pending - DVT Proph: SCDs - Abx: n/a - Diet: NPO as surgery today - Encourage ambulation Vaginal Bleeding - Patient originally transferred 08/12 concern for vaginal mass and bleeding - At OSH, differentials included anal vs vaginal bleeding as it was difficult to discern at the time - Mild to scant bleeding noted in patient's diaper this morning - Labs: - Hgb 6.5 at OSH > 2u pRBC > 8.9 > 8.7, AM CBC pending - MRI 11/09: A 5.9 x 3.8 cm enhancing mass within the cervix extending into the lower uterine segment is highly suspicious for cervical cancer and there is extension into the bilateral parametria with apparent invasion of the bladder wall and suspected mild extension into the upper vagina. Uterus appears to be septate and both endometrium moieties are distended with complicated fluid, likely due to obstruction from the cervical mass. Dilated right distal ureter may be due to obstruction from bladder wall implant. 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 - Discussed MRI findings with patient with plans for surgery later today - Consent signed with patient's son, Landen, her POA yesterday and is in her chart - Plan for exam under anesthesia, hysteroscopic dilation and curettage, possible biopsy, possible cystoscopy, possible anoscopy, and any other indicated procedure. - Will continue to monitor closely Poor Speech with Deafness - Discussed with nursing at [facility] and patient's son, Landen - Per nursing, patient is alert and oriented however able to communicate mainly through written messages. 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 Bilateral enlargement. Grade 2 diastolic dysfunction. - Repeat EKG 11/09: Normal sinus rhythm, anterior infarct age undetermined (old, seen on EKG on 08/15/23) - Nitroglycerin ordered PRN - Ranolazine not ordered inpatient - Continue to monitor Anemia - Admit Hgb @ [facility] 6.5 - S/p 2u pRBC Hgb 8.9 - Admit Hgb at [facility] 8.7 - AM CBC pending - Will Continue to monitor Hyperlipidemia - Lipid studies ordered on admission wnl - Previously on atorvastatin on home - Not ordered inpatient Diabetes - Hgb A1c on admission 4.5% - POCT AC/HS glucose ordered with Insulin Sliding scale - Home meds ordered: acarbose 100 mg BID - Home meds not ordered: Metformin, dulaglutide - Continue to monitor insulin requirement Schizophrenia - Per nursing at [facility] and patient's son, patient has significant PMH of schizophrenia - Home meds include Topomax and Lumaterprone (not on formulary at [facility]. Consulted with IP pharmacy and they recommended patient's son bring in and pharmacy verifies). - Can consider psychiatry consult if needed - Continue to monitor Asthma/COPD - VSS, no conversational dyspnea noted - Albuterol/Ipatropium ordered PRN per inpatient protocol - Continue to monitor HTN - BP overall stable at this time - Sacubitril/Valsaratan ordered with parameters to hold if Systolic <120 or HR <60 - Continue to monitor Protein Deficient Malnutrition - Albumin noted to be 2.1 on admission - Will supplement with Boost/Ensure when not NPO Hydronephrosis with Hydroureter - Seen on CT/AP 06/06/23 Hx Appendectomy Hx C/S BMI 33 Principal Problem: Vaginal mass Resolved Problems: * No resolved hospital problems. * Attending: Dr. Avilez Please page the resident named below with questions and concerns. Annabelle Moss MD OBGYN Resident 11/11/2023, 8:30 AM Attending Physician Statement I have discussed the care of Candis Johnson, including pertinent history and exam findings, with the resident. I have seen and examined the patient and the berry elements of all parts of the encounter have been performed by me. I agree with the assessment, plan and orders as documented by the resident. The patient and her family have been counseled regarding her abnormal symptoms, physical exam findings and imaging results. I have reviewed the MRI report with the patient's son today. The areas of concern have been highlighted. A kinjal and thorough discussion was held with the patient and her family. We discussed the possible scenarios for the abnormal findings, including a high probability for a malignant condition. We also discussed the importance of establishing a diagnosis with evaluation of the bladder, the vagina, the cervix, the uterus if possible and anus / rectum with biopsies. Recommendations were made to proceed with an Exam under anesthesia + Dilation & Curettage, with operative hysteroscopy + Possible cystoscopy + Possible anoscopy + Possible biopsies + Any other indicated procedures. The surgical procedure has been discussed in detail with the patient using both verbal and visual descriptions. All of the various options and associated rationale of the surgical procedure have been discussed in detail. The patient's son, Landen act as the patient's health care power of immigration attorney. Landen has been advised of the risks, benefits and alternatives to the procedure. Landen has been informed of the risks of surgery, including but not limited to: bleeding/transfusion, infection, injuries to other structures sometimes requiring additional surgery, venous thromboembolic events, cardiac or respiratory complications or even life-threatening complications. The discussion included a review of the post-operative care, post-operative restrictions and anticipated recovery. Landen's questions were answered to his apparent satisfaction. Pre-operative Evaluation: A cardiology evaluation was completed at [facility] prior to her transfer. Records have been reviewed. Lab results have been reviewed Proceed with surgical evaluation as planned Jayashree Avilez MD Gynecologic Oncology Obstetric/Gynecology Resident Interval Note At time of rounding, patient in MRI suite obtaining MRI pelvis. Dr. Avilez, RECREATION PROGRAM COORDINATOR/ONC attending, present at bedside to discuss evaluation and management plans with patient's son, Landen. Landen is the patient's power of immigration attorney and medical decision maker. Paperwork uploaded to patient's chart in media. After discussion with patient's son, consent was obtained for an exam under anesthesia, hysteroscopic dilation and curettage, possible biopsy, possible cystoscopy, possible anoscopy, and any other indicated procedure. Discussed with Landen that pending MRI results, will plan to take patient for surgery tomorrow afternoon. Repeat CBC, CMP ordered for 11/11/2019 4 in the AM. Patient is currently tolerating a diet. IV fluids to be discontinued until midnight. Patient to be made n.p.o. at midnight for surgery tomorrow. Encouraged ambulation, PO hydration, sitting in surgical chair as able. Will continue to monitor patient's status closely. Vitals: 11/10/23 0341 11/10/23 0738 11/10/23 1116 11/10/23 1520 BP: 113/60 (!) 96/54 (!) 108/50 (!) 104/59 Pulse: 70 73 79 Resp: 16 16 16 Temp: 97.6 F (36.4 C) 98.8 F (37.1 C) 98.9 F (37.2 C) TempSrc: Oral Oral Oral SpO2: 96% 97% 96% Weight: 88.1 kg (194 lb 3.6 oz) Height: 1.626 m (5' 4 ) Recent Results (from the past 24 hour(s)) EKG 12 Lead Collection Time: 11/10/23 4:31 AM Result Value Ref Range Ventricular Rate 62 BPM Atrial Rate 62 BPM P-R Interval 168 ms QRS Duration 86 ms Q-T Interval 404 ms QTc Calculation (Bazett) 410 ms P [place] 40 degrees R [place] 6 degrees T [place] 20 degrees EKG 12 Lead Collection Time: 11/10/23 4:32 AM Result Value Ref Range Ventricular Rate 65 BPM Atrial Rate 65 BPM P-R Interval 172 ms QRS Duration 86 ms Q-T Interval 406 ms QTc Calculation (Bazett) 422 ms P [place] 42 degrees R [place] 7 degrees T [place] 19 degrees Comprehensive Metabolic Panel w/ Reflex to MG Collection Time: 11/10/23 5:08 AM Result Value Ref Range Sodium 137 136 - 145 mmol/L Potassium 4.5 3.7 - 5.3 mmol/L Chloride 108 (H) 98 - 107 mmol/L CO2 17 (L) 20 - 31 mmol/L Anion Gap 12 9 - 16 mmol/L Glucose 99 74 - 99 mg/dL BUN 10 8 - 23 mg/dL Creatinine 0.9 0.50 - 0.90 mg/dL Est, Glom Filt Rate 66 >60 mL/min/1.73m2 Calcium 8.4 (L) 8.6 - 10.4 mg/dL Total Protein 5.0 (L) 6.6 - 8.7 g/dL Albumin 3.5 3.5 - 5.2 g/dL Albumin/Globulin Ratio 2.0 1.0 - 2.5 Total Bilirubin 0.2 0.00 - 1.20 mg/dL Alkaline Phosphatase 85 35 - 104 U/L ALT 9 (L) 10 - 35 U/L AST 20 10 - 35 U/L TYPE AND SCREEN Collection Time: 11/10/23 5:08 AM Result Value Ref Range Blood Bank Sample Expiration 11/13/2023,2359 Arm Band Number BE [id number] ABO/Rh O POSITIVE Antibody Screen NEGATIVE Lipid Panel Collection Time: 11/10/23 5:08 AM Result Value Ref Range Cholesterol, Total 79 0 - 199 mg/dL HDL 55 >40 mg/dL LDL Cholesterol 11 0 - 100 mg/dL Chol/HDL Ratio 1.0 Triglycerides 66 <150 mg/dL VLDL 13 mg/dL CBC with Auto Differential Collection Time: 11/10/23 6:05 AM Result Value Ref Range WBC 8.5 3.5 - 11.3 k/uL RBC 3.23 (L) 3.95 - 5.11 m/uL Hemoglobin 8.7 (L) 11.9 - 15.1 g/dL Hematocrit 29.5 (L) 36.3 - 47.1 % MCV 91.3 82.6 - 102.9 fL MCH 26.9 25.2 - 33.5 pg MCHC 29.5 28.4 - 34.8 g/dL RDW 15.9 (H) 11.8 - 14.4 % Platelets 389 138 - 453 k/uL MPV 8.5 8.1 - 13.5 fL NRBC Automated 0.0 0.0 per 100 WBC Neutrophils % 80 (H) 36 - 65 % Lymphocytes % 10 (L) 24 - 43 % Monocytes % 9 3 - 12 % Eosinophils % 0 (L) 1 - 4 % Basophils % 0 0 - 2 % Immature Granulocytes % 1 (H) 0 % Neutrophils Absolute 6.82 1.50 - 8.10 k/uL Lymphocytes Absolute 0.86 (L) 1.10 - 3.70 k/uL Monocytes Absolute 0.72 0.10 - 1.20 k/uL Eosinophils Absolute 0.03 0.00 - 0.44 k/uL Basophils Absolute <0.03 0.00 - 0.20 k/uL Immature Granulocytes Absolute 0.06 0.00 - 0.30 k/uL RBC Morphology ANISOCYTOSIS PRESENT Hemoglobin A1C Collection Time: 11/10/23 6:05 AM Result Value Ref Range Hemoglobin A1C 4.5 4.0 - 6.0 % Estimated Avg Glucose 82 mg/dL POC Glucose Fingerstick Collection Time: 11/10/23 7:56 AM Result Value Ref Range POC Glucose 91 65 - 105 mg/dL POC Glucose Fingerstick Collection Time: 11/10/23 12:21 PM Result Value Ref Range POC Glucose 89 65 - 105 mg/dL Annabelle Moss MD WORD PROCESSOR Resident, PGY2 [place], [place] 11/10/2023, 5:14 PM Attending Physician Statement I have discussed the care of Candis Johnson, including pertinent history and exam findings, with the resident. I have seen and examined the patient and the berry elements of all parts of the encounter have been performed by me. I agree with the assessment, plan and orders as documented by the resident. Jayashree Avilez MD Gynecologic Oncology SPINNER OPEN END ALL NOTES Facility/Department: [address] MED SURG CLINICAL BEDSIDE SWALLOW EVALUATION NAME: Candis Johnson : 1955 ADMISSION DATE: 11/10/2023 ADMITTING DIAGNOSIS: has Vaginal mass on their problem list. Date of Eval: 11/10/2023 Evaluating Therapist: JODIE Damon Current Diet level: Current Diet : NPO Current Liquid Diet : NPO Primary Complaint: Candis Johnson is a 68 y.o. female presents to [facility] as a direct transfer from [facility] for concern for vaginal cancer. All the information is derived from a paper chart from [facility]. We do not have access to medical records electronically. Pain: 0/10 Reason for Referral Candis Johnson was referred for a bedside swallow evaluation to assess the efficiency of her swallow function, identify signs and symptoms of aspiration and make recommendations regarding safe dietary consistencies, effective compensatory strategies, and safe eating environment. Impression: Patient presents with probable safe swallow for Regular diet with thin liquids as evidenced by no overt s/s of aspiration noted with consistencies tested. Recommend small sips and bites, only feed when alert and awake and upright at 90 degrees for all PO intake. Recommend close monitoring for overt/clinical s/s of aspiration and D/C PO intake and complete Modified Barium Swallow Study should they occur. Results and recommendations reported to RN. Dysphagia Diagnosis: Swallow function appears WFL Dysphagia Outcome Severity Scale: Level 7: Normal in all situations Treatment Plan Requires SPINNER OPEN END Intervention: Yes 1-2X D/C Recommendations: Ongoing speech therapy is recommended at next level of care;Ongoing speech therapy is recommended during this hospitalization No therapy recommended at discharge. Recommended Diet and Intervention Diet Solids Recommendation: Regular Liquid Consistency Recommendation: Thin Recommended Form of Meds: PO Therapeutic Interventions: Diet tolerance monitoring Compensatory Swallowing Strategies Compensatory Swallowing Strategies : Alternate solids and liquids;Upright as possible for all oral intake;Small bites/sips;Eat/Feed slowly Treatment/Goals Dysphagia Goals: The patient will tolerate recommended diet without observed clinical signs of aspiration General Chart Reviewed: Yes Behavior/Cognition: Alert;Cooperative O2 Device: None (Room air) Follows Directions: Simple Dentition: Edentulous Patient Positioning: Upright in chair Vision/Hearing impaired Oral Motor Deficits Labial: No impairment Lingual: No impairment Oral Phase Dysfunction Oral Phase Oral Phase: WFL adequate mastication and oral manipulation for consistencies tested Indicators of Pharyngeal Phase Dysfunction Pharyngeal Phase Pharyngeal Phase: WFL Pharyngeal Phase Pharyngeal Phase: WFL no overt s/s of aspiration noted with solids and liquids tested Prognosis Prognosis: Good Consulted and agree with results and recommendations: Patient;RN;Family member Education Patient Education: pt Patient Education Response: Verbalizes understanding Therapy Time [id number] JODIE Damon 11/10/2023 11:10 AM Unable to complete admission assessment. Patient has impaired hearing. documented in this encounter [facility] 10-06-2023 Note Patient here for 2 w [place] follow up SOB, atypical chest pain, and surgery clearance. She was started on lasix 20mg daily at last apt with Dr. Aguilar for moderately elevated right sided pressures per echo. Still needs clearance prior to D&C and LEEP procedure to be done with Dr. Crespo. Review of Systems HENT: Positive for hearing loss. Cardiovascular: Positive for chest pain (intermittent) and dyspnea on exertion (intermittent). All other systems reviewed and are negative. [facility] 10-06-2023 Note Cardiology Clinic No te Chief Complaint: preop risk stratification HPI: PMHx: Candis Johnson is a 68 y.o. female With no reported cardiac history who presents to cardiology clinic at the request of her WORD PROCESSOR doctor for perioperative restratification prior to D&C and LEEP procedure. Of note: Patient is deaf. 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 She does her best to communicate by lipreading. She is accompanied by her armor reconnaissance vehicle driver today, who assists in communication. Today, [...] a past medical history of Diabetes mellitus ([facility] Surgical History She has no past [...] N (more content not included)... [facility] 09-23-2023 Note Cardiology Clinic No te Chief Complaint: preop risk stratification HPI: Candis Johnson is a 68 y.o. female With no reported cardiac history who presents to cardiology clinic at the request of her WORD PROCESSOR doctor for perioperative restratification prior to D&C and LEEP procedure. Of note: Patient is deaf. 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 She does her best to communicate by lipreading. She is accompanied by her armor reconnaissance vehicle driver today, who assists in communication. Today, [...] a past medical history of Diabetes mellitus ([facility]). Surgical History She has no past [...] regardi (more content not included)... [facility] 09-23-2023 Note Concerns: Not much s tates some swelling in legs and some back back, chest pain seems to be getting better [facility] 08-26-2023 Note Cardiology Clinic No te Chief Complaint: preop risk stratification HPI: Candis Johnson is a 68 y.o. female With no reported cardiac history who presents to cardiology clinic at the request of her WORD PROCESSOR doctor for perioperative restratification prior to D&C and LEEP procedure. Of note: Patient is deaf. 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 She does her best to communicate by lipreading. She is accompanied by her armor reconnaissance vehicle driver today, who assists in communication. As per patient and her armor reconnaissance vehicle driver, patient denies any cardiac history. She denies any prior history of heart failure, CAD, PCI, or MT. She does report occasional chest pain. Chest [...] a past medical history of Diabetes mellitus ([facility]). Surgical History She has no past [...] med (more content not included)... [facility] 08-26-2023 Note New patient here to establish care. Ref from Dr. Crespo for surgery clearance prior to D&C and LEEP procedure. This is scheduled for 08/31 at [facility] per patient. She had labs and EKG last week. Says she gets intermittent chest pain and SOB w/ exertion. Review of Systems HENT: Positive for hearing loss. Cardiovascular: Positive for chest pain (intermittent) and dyspnea on exertion (intermittent). All other systems reviewed and are negative. [facility] 08-04-2023 Evaluation + Plan note Diagnostic Tests PendingUrine Cytology ([facility]) 08/04/23 [facility] 08-03-2023 Hospital Discharge instructions Patient Education 08/03/2023 [...] including vitamins, herbs, eye drops, creams, and ejea-hdh-lmpeqii medicines. Any problems you or family members [...] health care provider tells you to. Taking iwzr-jdd-bgieazk medicines, vitamins, herbs, and supplements. General instructions [...] provider. Document Revised: 10/22/2022 Document Reviewed: 10/22/2022 [employer] Patient Education 2022 [employer]. 08/03/2023 09:37:21 Hematuria, Adult Hematuria, Adult Hematuria [...] Follow these instructions at home: Medicines Take xhye-wkd-xklfcqu and prescription medicines only as told by [...] or the blood stops without treatment. Take wliw-eeh-awzqeko and prescription medicines only as told by your health care provider. Drink enough fluid to keep your urine pale yellow. This information is not intended to replace advice given to you by your health care provider. Make sure you discuss any questions you have with your health care provider. Document Revised: 02/25/2021 Document Reviewed: 02/25/2021 [employer] Patient Education 2022 [employer]. Follow Up Care 07/13/2023 11:34:42 With:Marcelino GALLARDO, Pamela M., URL, URO Address: When: Unknown Comments:Schedule Cysto, Rt ureteroscopy, possible biopsy, and Rt stent placement [facility] Evaluation + Plan note No data available for this section 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 * Hysteroscopy: Post-op (Lithuanian) * Cystoscopy: Post-op (Lithuanian) [facility] No data available for this section 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) Procedures NM PET/CT SKULL-THIGH INITIAL PET IMAGING CT ATTENUATION SKULL BASE MID-THIGH El Ahmadi MD [address] [place] [address] [place] [address] Molecular & Functional Imaging [address] [place] [address] Referral ID Status Reason Start Date Expiration Date Visits Requested Visits Authorized [id number] Pending Review Auto-Generat ed Referral 11/25/2023 12/24/2024 1 1 [facility] Summary Purpose Family History No Family History Records Found No data available for this section No data available for this section No data available for this section No Family History Records FoundNo Family History Records FoundNo Family History Records FoundNo Family History Records FoundNo Family History Records FoundNo Family History Records Found Advance Directives No Advanced Directives Records FoundLatest Code Status on File Code Status Date Activated Date Inactivated Comments Full Code 11/10/2023 4:03 AM Additional Source Comments INFORMATION SOURCE (unrecogn ized section and content) DATE CREATED AUTHOR 07/05/2022 [facility] DATE CREATED AUTHOR AUTHOR'S ORGANIZ ATION 11/04/2023 [facility] EPIC DATE CREATED AUTHOR AUTHOR'S ORGANIZ ATION 11/12/2023 [facility] DATE CREATED AUTHOR AUTHOR'S ORGANIZ ATION 11/15/2023 [place] [facility] DATE CREATED AUTHOR AUTHOR'S ORGANIZ ATION 11/26/2023 [facility] DATE CREATED AUTHOR AUTHOR'S ORGANIZ ATION 11/27/2023 [facility] DATE CREATED AUTHOR AUTHOR'S ORGANIZ ATION 11/29/2023 [facility] Patient Care team informatio n (unrecognized section and content) Administrative Sales Assistant Relationship Specialty Start Date End Date Ander Langley DO [address] [place] [phone] PCP - General Internal Medicine 11/10/23 Reason for Visit (unrecogniz ed section and content) Specialty Diagnoses / Procedures Referred By Luis hernandez Referred To Contact Diagnoses Vaginal mass vaginal cancer, anemia bleeding Jayashree Avilez MD [address] [place] [address] [facility] [address] [place] [address] Referral ID Status Reason Start Date Expiration Date Visits Re quested Visits Authorized [id number] 1 1 Reason Comments Patient Education Scheduled Active and Recently Administ ered Medications (unrecognized section and content) Medication Order 11/10/2023 11/11/2023 11/12/2023 acarbose (PRECOSE) tablet 100 mg 100 mg, Oral, 2 times daily, First dose on Rosina 11/10/23 at 1000, Until Discontinued 1118 (Given - Provider: Radha Cadet RN)2147 (Given - Provider: Sally Garcia RN) 0855 (Held - Provider: Snehal Chahal RN - Reason: Pt NPO)1624 (MAR Hold - Provider: Mar Autohold - Reason: Unreviewed Transfer Orders)193 (MAR Unhold - Provider: Marysol Head RN)195 (Given - Provider: Marysol Head RN) 0805 (Given - Provider: Janis Schwarz RN)2100 (Due) famotidine (PEPCID) 40 mg in sodium chloride (PF) 0.9 % 10 mL injection (COMPLETED) 40 mg, IntraVENous, ONCE, 1 dose, On Rosina 11/10/23 at 1000, IV Push over minimum of 2 minutes - Dilute with 10 mL NS 1118 (Given - Provider: Radha Cadet RN) insulin lispro (HUMALOG) injection vial 0-10 Units 0-10 Units, SubCUTAneous, 3 TIMES DAILY WITH MEALS, First dose on Rosina 11/10/23 at 0800, Until Discontinued, Medium Dose Corrective Algorithm Glucose: Dose: 70-150 No Insulin 151-200 2 Units 201-250 4 Units 251-300 6 Units 301-350 8 Units 351-400 10 Units Over 400 12 Units and notify physicianNotify physician 0754 (Not Given - Provider: Radha Cadet RN - Reason: Order parameters not met)1335 (Not Given - Provider: Radha Cadet RN - Reason: Order parameters not met)1845 (Not Given - Provider: Radha Cadet RN - Reason: Order parameters not met) 0856 (Not Given - Provider: Snehal Chahal RN - Reason: Order parameters not met)1223 (Not Given - Provider: Snehal Chahal RN - Reason: Order parameters not met)1624 (MAR Hold - Provider: Tiffany Autohold - Reason: Unreviewed Transfer Orders)1700 (Automatically Held - Provider: Tiffany Autohold)193 (MAR Unhold - Provider: Marysol Head RN) 0916 (Not Given - Provider: Janis Schwarz RN - Reason: Order parameters not met)1340 (Not Given - Provider: Janis Schwarz RN - Reason: Order parameters not met)1700 (Due) Lumateperone Tosylate (CAPLYTA) capsule 42 mg (Patient Supplied) 42 mg, Oral, NIGHTLY, First dose on Tue11/11/23 at 2100, Until Discontinued, Swallow whole. Do not crush, chew, or break. Product identified by pharmacist 11/11/231623 (MAR Hold - Provider: Tiffany Autohold - Reason: Unreviewed Transfer Orders)1931 (MAR Unhold - Provider: Marysol Head RN)1955 (Given - Provider: Marysol Head RN) 2099 (Due) montelukast (SINGULAIR) tablet 10 mg 10 mg, Oral, NIGHTLY, First dose on Tue11/10/23 at 2100, Until Discontinued 2034 (Given - Provider: Sally Garcia RN) 1623 (MAR Hold - Provider: Tiffany Autohold - Reason: Unreviewed Transfer Orders)1931 (MAR Unhold - Provider: Marysol Head RN)1955 (Given - Provider: Marysol Head RN) 2099 (Due) sacubitril-valsartan (ENTRESTO) 24-26 MG per tablet 1 tablet 1 tablet, Oral, 2 TIMES DAILY, First dose on Rosina 11/10/23 at 1030, Until Discontinued, Please hold if Systolic BP <120 or Heart rate <60 1116 (Not Given - Provider: Radha Cadet RN - Reason: Order parameters not met)2007 (Not Given - Provider: Sally Garcia RN - Reason: Order parameters not met) 0855 (Given - Provider: Snehal Chahal RN)162 (MAR Hold - Provider: Tiffany Autohold - Reason: Unreviewed Transfer Orders)1931 (MAR Unhold - Provider: Marysol Head RN)1954 (Given - Provider: Marysol Head RN) 08 (Given - Provider: Janis Schwarz RN)2099 (Due) senna (SENOKOT) tablet 17.2 mg 17.2 mg (2 tablet), Oral, 2 TIMES DAILY, First dose on Rosina 11/10/23 at 1000, Until Discontinued 1118 (Given - Provider: Radha Cadet RN)2034 (Given - Provider: Sally Garcia RN) 0855 (Given - Provider: Snehal Chahal RN)162 (MAR Hold - Provider: [facility] Autohold - Reason: Unreviewed Transfer Orders)1931 (MAR Unhold - Provider: Marysol Head, PARAG)195 (Given - Provider: Marysol Head, PARAG) 0804 (Given - Provider: Janis Schwarz RN)2100 (Due) sodium chloride 0.9 % bolus 30 mL (COMPLETED) 30 mL (0.341 mL/kg), IntraVENous, ONCE, On Rosina 11/10/23 at 1745, For 1 dose 2005 (New Bag - Provider: Sally Garcia RN)2025 (Rate/Dose Change - Provider: Sally Garcia RN)2025 (Stopped - Provider: Sally Garcia RN) topiramate (TOPAMAX) tablet 25 mg 25 mg, Oral, DAILY, First dose on Rosina 11/10/23 at 1030, Until Discontinued, It is not recommended to crush, break, or chew immediate release tablets due to bitter taste. 1118 (Given - Provider: Radha Cadet RN) 0855 (Given - Provider: Snehal Chahal RN)162 (MAR Hold - Provider: [facility] Autohold - Reason: Unreviewed Transfer Orders)1931 (MAR Unhold - Provider: Marysol Head RN) 0805 (Given - Provider: Janis Schwarz RN) Continuous Medication Order 11/10/2023 11/11/2023 11/12/2023 0.9 % sodium chloride infusion (CANCELED) IntraVENous, at 75 mL/hr, CONTINUOUS, Starting on Rosina 11/10/23 at 0430 0414 (New Bag - Provider: Aspen Nolasco RN)0442 (Rate/Dose Change - Provider: Sally Garcia RN)0452 (Rate/Dose Verify - Provider: Sally Garcia RN)0503 (Rate/Dose Verify - Provider: Sally Garcia RN)0529 (Rate/Dose Verify - Provider: Sally Garcia RN)1016 (Paused - Provider: Sally Garcia RN)1025 (Paused - Provider: Sally Garcia RN)1536 (Restarted - Provider: Sally Garcia RN)1639 (Paused - Provider: Sally Garcia RN) 0004 (Restarted - Provider: Sally Garcia RN)0527 (Rate/Dose Verify - Provider: Sally Garcia RN)1600 (NoRateChange - Provider: CLEMENTINE Caballero CRNA)1624 (MAR Hold - Provider: Tiffany Autohold - Reason: Unreviewed Transfer Orders)1634 (Paused - Provider: CLEMENTINE Caballero CRNA - Comment: Switch to gravity)1635 (Restarted - Provider: CLEMENTINE Caballero CRNA)1723 (New Bag - Provider: CLEMENTINE Caballero CRNA)193 (MAR Unhold - Provider: Marysol Head RN)2001 (Rate/Dose Verify - Provider: Marysol Head RN)2001 (Rate/Dose Verify - Provider: Marysol Head RN) 041 (Rate/Dose Change - Provider: Marysol Head RN)041 (Rate/Dose Change - Provider: Marysol Head RN)0413 (Rate/Dose Verify - Provider: Marysol Head RN)0610 (Rate/Dose Verify - Provider: Marysol Head RN) PRN Medication Order 11/10/2023 11/11/2023 11/12/2023 0.9 % sodium chloride infusion IntraVENous, at 100 mL/hr, PRN, If patient receiving piggyback infusions without ordered maintenance IV fluids or with frequent/long duration piggyback infusions, Starting on Rosina 11/10/23 at 0353, Administer at the same rate as the piggyback being infused. 162 (SEP Hold - Provider: Tiffany Autohold - Reason: Unreviewed Transfer Orders)1931 (SEP Unhold - Provider: Marysol Head RN) acetaminophen (TYLENOL) tablet 1,000 mg 1,000 mg, Oral, EVERY 6 HOURS PRN, Starting on Rosina 11/10/23 at 0934, Until Discontinued, Pain Mild (1-3) 162 (MAR Hold - Provider: Tiffany Autohold - Reason: Unreviewed Transfer Orders)193 (MAR Unhold - Provider: Marysol Head RN) albuterol sulfate HFA (PROVENTIL;VENTOLIN;PROAIR) 108 (90 Base) MCG/ACT inhaler 2 puff 2 puff, Inhalation, EVERY 6 HOURS PRN, Starting on Rosina 11/10/23 at 0937, Until Discontinued, Wheezing, Initiate RT Bronchodilator Protocol: Yes - Inpatient Protocol 1623 ([facility] Hold - Provider: [facility] Autohold - Reason: Unreviewed Transfer Orders)1931 ([facility] Unhold - Provider: Marysol Head RN) dextrose 10 % infusion IntraVENous, at 100 mL/hr, CONTINUOUS PRN, if blood glucose remains LESS THAN 70 mg/dL after 2 dextrose 10% intravenous boluses or administration of glucagon, Starting on Rosina 11/10/23 at 0428, If blood glucose fails to stabilize after 2 dextrose 10% intravenous boluses or glucagon administration, start dextrose 10% infusion at 100 mL/hour and repeat blood glucose at 30 and 60 minutes. If blood glucose is GREATER THAN 70 mg/dL after 60 minutes, discontinue dextrose 10% infusion. 1623 ([facility] Hold - Provider: Tiffany Autohold - Reason: Unreviewed Transfer Orders)1931 ([facility] Unhold - Provider: Marysol Head RN) dextrose bolus 10% 125 mL(Linked Group 1) 125 mL, IntraVENous, at 937.5 mL/hr, Administer over 8 Minutes, PRN, Other, Blood glucose 40 - 69 mg/dL and patient NOT ALERT or NPO, Starting on Rosina 11/10/23 at 0428, Repeat blood glucose in 15 minutes. If blood glucose remains LESS THAN 70 mg/dL, repeat treatment and recheck blood glucose in 15 minutes x 2. If using glycemic management system, dose as instructed per system. If blood glucose remains LESS THAN 70 mg/dL after 2 intravenous boluses start dextrose 10% at 100 mL/hour and notify provider. 1623 ([facility] Hold - Provider: Tiffany Autohold - Reason: Unreviewed Transfer Orders)1931 ([facility] Unhold - Provider: Marysol Head RN) dextrose bolus 10% 250 mL(Linked Group 1) 250 mL, IntraVENous, at 937.5 mL/hr, Administer over 16 Minutes, PRN, Other, Blood glucose LESS THAN 40 mg/dL and patient NOT ALERT or NPO, Starting on Rosina 11/10/23 at 0428, Repeat blood glucose in 15 minutes. If blood glucose remains LESS THAN 70 mg/dL, repeat treatment and recheck blood glucose in 15 minutes x 2. If using glycemic management system, dose as instructed per system. If blood glucose remains LESS THAN 70 mg/dL after 2 intravenous boluses start dextrose 10% at 100 mL/hour and notify provider. 1623 ([facility] Hold - Provider: Tiffany Autohold - Reason: Unreviewed Transfer Orders)1931 ([facility] Unhold - Provider: Marysol Head RN) fluticasone (FLONASE) 50 MCG/ACT nasal spray 2 spray 2 spray, Each Nostril, DAILY PRN, Starting on Rosina 11/10/23 at 0938, Until Discontinued, Rhinitis 1623 ([facility] Hold - Provider: Tiffany Autohold - Reason: Unreviewed Transfer Orders)1931 ([facility] Unhold - Provider: Marysol Head RN) gadoteridol (PROHANCE) injection 17 mL (COMPLETED) 17 mL, IntraVENous, IMG ONCE PRN, 1 dose, Starting on Rosina 11/10/23 at 1721, Until Rosina 11/10/23 at 1834, Other 183 (Given - Provider: Tiarra Quinn) glucagon injection 1 mg 1 mg, SubCUTAneous, PRN, Starting on Rosina 11/10/23 at 0428, Until Discontinued, Low blood sugar, Blood glucose LESS THAN 70 mg/dL and patient NOT ALERT or NPO and does not have IV access., After administration, attempt intravenous access and start dextrose 10% at 100 mL/hr. Repeat blood glucose in 15 minutes x 2 and notify provider. 1623 ([facility] Hold - Provider: Tiffany Autohold - Reason: Unreviewed Transfer Orders)1931 ([facility] Unhold - Provider: Marysol Head RN) glucose chewable tablet 16 g 16 g (4 tablet), Oral, PRN, Starting on Rosina 11/10/23 at 0428, Until Discontinued, Low blood sugar, If blood glucose is LESS THAN 70 mg/dL and patient is alert and tolerating oral. Give 4 tablets (16g) Repeat blood glucose in 15 minutes. If blood glucose is LESS THAN 70 mg/dL, repeat treatment and recheck blood glucose in 15 minutes x 2. If blood glucose remains LESS THAN 70 mg/dL, notify provider. 1623 ([facility] Hold - Provider: Tiffany Autohold - Reason: Unreviewed Transfer Orders)1931 ([facility] Unhold - Provider: Marysol Head, PARAG) HYDROmorphone (DILAUDID) injection 0.5 mg (CANCELED) 0.5 mg, IntraVENous, EVERY 5 MIN PRN, 2 doses, Starting on 11/11/23 at 1703, Until Tue11/11/23 at 1922, Pain Severe (7-10), For Phase I. If Phase II oral narcotics have been administered in the last 60 minutes, do not administer IV narcotics unless specifically approved by provider., PACU only 1827 (Given - Provider: Vy Agee RN) ipratropium 0.5 mg-albuterol 2.5 mg (DUONEB) nebulizer solution 1 Dose 1 Dose, Inhalation, EVERY 4 HOURS PRN, Starting on Rosina 11/10/23 at 0939, Until Discontinued, Shortness of Breath, Initiate RT Bronchodilator Protocol: Yes - Inpatient Protocol 1623 ([facility] Hold - Provider: Tiffany Autohold - Reason: Unreviewed Transfer Orders)1931 ([facility] Unhold - Provider: Marysol Head RN) nitroGLYCERIN (NITROSTAT) SL tablet 0.4 mg 0.4 mg, SubLINGual, EVERY 5 MIN PRN, Starting on Rosina 11/10/23 at 0943, Until Discontinued, Chest pain, Place 1 tablet under tongue upon chest pain, wait 5 minutes and may repeat up to 3 doses in 15 minutes. Do not crush or break. Substituted for nitroGLYCERIN translingual spray (NITROLINGUAL).. 1623 ([facility] Hold - Provider: Tiffany Autohold - Reason: Unreviewed Transfer Orders)1931 ([facility] Unhold - Provider: Marysol Head RN) ondansetron (ZOFRAN) injection 4 mg(Linked Group 2) 4 mg, IntraVENous, EVERY 6 HOURS PRN, Starting on Rosina 11/10/23 at 0353, Until Discontinued, Nausea, Vomiting, Administer if oral route cannot be used. 1623 ([facility] Hold - Provider: Tiffany Autohold - Reason: Unreviewed Transfer Orders)1931 ([facility] Unhold - Provider: Marysol Head RN) ondansetron (ZOFRAN-ODT) disintegrating tablet 4 mg(Linked Group 2) 4 mg, Oral, EVERY 8 HOURS PRN, Starting on Rosina 11/10/23 at 0353, Until Discontinued, Nausea, Vomiting 162 ([facility] Hold - Provider: [facility] Autohold - Reason: Unreviewed Transfer Orders)193 ([facility] Unhold - Provider: Marysol Head RN) sod chloride IRR soln 0.9 % irrigation (CANCELED) CONTINUOUS PRN, Starting on Tue11/11/23 at 1649, Intra-op 1649 (New Bag - Provider: Jayashree Avilez MD - Comment: POURED TO STERILE BACK TABLE USED PRN) sodium chloride flush 0.9 % injection 5-40 mL 5-40 mL, IntraVENous, PRN, Starting on Rosina 11/10/23 at 0353, Until Discontinued, Line Care, After every IV line use, For Line Patency: Peripheral IV = 5 mL; Midline or Central Line = 10 mL/lumen. If following IV push medication, administer flush at same rate as the IV push. Flush volume is determined by type of infusion therapy being given. For non-viscous solutions use: Peripheral IV = 5 mL Midline or Central Line = 10 mL/lumen For viscous solutions (i.e. blood components, parenteral nutrition, contrast media, or after obtaining blood sample) use: Peripheral IV = 10 mL Midline or Central Line = 20 mL/lumen 1834 (Given - Provider: Tiarra Quinn)2003 (Given - Provider: Sally Garcia RN) 162 ([facility] Hold - Provider: [facility] Autohold - Reason: Unreviewed Transfer Orders)193 ([facility] Unhold - Provider: Marysol Head RN)1955 (Given - Provider: Marysol Head RN) Linked Groups Order Group 1: dextrose bolus 10% 125 mLJump to med 125 mL, IntraVENous, at 937.5 mL/hr, Administer over 8 Minutes, PRN, Other, Blood glucose 40 - 69 mg/dL and patient NOT ALERT or NPO, Starting on Rosina 11/10/23 at 0428
Repeat blood glucose in 15 minutes. If blood glucose remains LESS THAN 70 mg/dL, repeat treatment and recheck blood glucose in 15 minutes x 2. If using glycemic management system, dose as instructed per system. If blood glucose remains LESS THAN 70 mg/dL after 2 intravenous boluses start dextrose 10% at 100 mL/hour and notify provider.
Or dextrose bolus 10% 250 mLJump to med 250 mL, IntraVENous, at 937.5 mL/hr, Administer over 16 Minutes, PRN, Other, Blood glucose LESS THAN 40 mg/dL and patient NOT ALERT or NPO, Starting on Rosina 11/10/23 at 0428
Repeat blood glucose in 15 minutes. If blood glucose remains LESS THAN 70 mg/dL, repeat treatment and recheck blood glucose in 15 minutes x 2. If using glycemic management system, dose as instructed per system. If blood glucose remains LESS THAN 70 mg/dL after 2 intravenous boluses start dextrose 10% at 100 mL/hour and notify provider.
Group 2: ondansetron (ZOFRAN-ODT) disintegrating tablet 4 mgJump to med 4 mg, Oral, EVERY 8 HOURS PRN, Starting on Rosina 11/10/23 at 0353, Until Discontinued, Nausea, Vomiting Or ondansetron (ZOFRAN) injection 4 mgJump to med 4 mg, IntraVENous, EVERY 6 HOURS PRN, Starting on Rosina 11/10/23 at 0353, Until Discontinued, Nausea, Vomiting
Administer if oral route cannot be used.
Source Comments (unrecognize d section and content) In the event this informatio n is protected by the Federal Confidentiality of Alcohol and Drug Abuse Patient Records regulations: The Federal rules restrict any use of the information to criminally investigate or prosecute any alcohol or drug abuse patient.[facility] CenterIn the event this information is protected by the Federal Confidentiality of Alcohol and Drug Abuse Patient Records regulations: The Federal rules restrict any use of the information to criminally investigate or prosecute any alcohol or drug abuse patient.[facility] Center[facility] the event this information is protected by the Federal Confidentiality of Alcohol and Drug Abuse Patient Records regulations: The Federal rules restrict any use of the information to criminally investigate or prosecute any alcohol or drug abuse patient.[facility] FOR RECORDS PERTAINING TO PATIENTS WHO ARE [...] BE BASED ON THE PRIMARY CLINICAL RECORDS. [facility] [employer] [facility]. provides no warranty or guarantee of the accuracy or completeness of information in this document.
[2023-11-30 08:23] LABS: Anion Gap 16.2; BUN Creatinine Ratio 11.3; Calcium 9.6 mg/dL (8.5-10.1); Carbon Dioxide 24.4 mmol/L (21.0-32.0); Chloride 100 mmol/L (98-107); Estimated GFR (African America 45 (>=60); Estimated GFR (Non-African Ame 37 (>=60); Glucose 99 mg/dL (74-106); Potassium 4.6 mmol/L (3.5-5.1); Sodium 136 mmol/L (136-145)
== END 2023-11-30 02:05 | disposition home or self-care (01) ==
LOC: LAB 02:04
PROVIDERS: Visit Provider Internal Medicine Cardiovascular Disease
DX: I11.0 Hypertensive heart disease with heart failure (principal)
CPT/HCPCS: 36415; 80048

== ENCOUNTER 2023-12-10 18:22 | Observation (INO) | payer MEDICARE, MEDICAID, SELFPAY ==
[2023-12-10] VITALS (8 sets, daily range): BP systolic 93–134; BP diastolic 51–69; PULSE 68–78; TEMP 36.1–36.7; O2SAT 80–99; BMI 31.9; BMI 32.7
--- NOTE | 2023-12-10 18:40 | ECG_ITS ---
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 INTRAVENTRICULAR CONDUCTION DELAY Low voltage across the precordium Electronically Signed On 12-11-2023 8:15:09 EDT by MAKSIM NIETO
--- NOTE | 2023-12-10 18:40 | XR_ITS ---
The [address] [address] Patient Name: STEVE JOHNSON MRN: [id number] date: 1955 Sex: F Assigned Patient Location: ER Current Patient Location: ER Accession/Order Number: [id number] Exam Date: 12/10/2023 19:17 Report Date: 12/10/2023 20:02 At the request of: DAVID FELIPE Procedure: XR chest 1V EXAM: XR chest 1V HISTORY: syncopal episode COMPARISON: Chest x-ray 08/15/2023 TECHNIQUE: Single AP radiograph of the chest FINDINGS: Mild cardiac prominence. No pneumothorax or effusion. No consolidation. No acute osseous abnormality. XR/XR chest 1V IMPRESSION: Mild cardiac prominence without acute cardiopulmonary process otherwise. Electronically authenticated by: CECI MCQUEEN Date: 12/10/2023 20:02
--- OUTSIDE RECORDS SUMMARY | 2023-12-10 18:47 | XMS_ITS | CCD ---
Author Organization [facility] Care Team Providers Care Independent Marketing Consultant Name Role Phone MARKER, DR SALNIAS Consulting Unavailable VALONE, DR JAVIER Primary Care Unavailable MARKER, DR SALINAS Attending Unavailable MARKER, DR SALINAS Admitting Unavailable BENEDICT, DR TINEO Admitting Unavailable BENEDICT, DR TINEO Attending Unavailable VALONE, DR JAVIER Attending Unavailable VALONE, DR JAVIER Admitting Unavailable VALONE, DR JAVIER Primary Care Unavailable ROSALBA, DR NANI Haley Admitting Unavailalice NAVARRETE, DR NANI Haley Attending UnavailANDER Lance JR Primary Care Physician [phone] KOBE CRESPO Attending Unavailable KOBE CRESPO Attending Unavailable KOBE CRESPO Attending Unavailable KOBE CRESPO Attending Unavailable Kobe Crespo Attending Unavailable Kobe Crespo Admitting Unavailable Ander Langley DO Primary Care Provider Unavailable Primary Care Provider UnavailPamela Houser Attending Unavailable Kobe CRESPO Referring Unavailable Pamela Benson Attending Unavailable Pamela Benson Admitting Unavailable Edmond KUHN Attending Unavailable Pamela Benson Attending Unavailable REBECCA GALEANO Attending Unavailable GUERDA AGUILAR Attending Unavailable GUERDA AGUILAR Attending Unavailable GUERDA AGUILAR Attending Unavailable LAISHA COBURN Attending Unavailable EL AHMADI Referring Unavailable EL AHMADI Referring Unavailable EL AHMADI Attending Unavailable JAYASHREE AVILEZ Admitting Unavailable JAYASHREE AVILEZ Attending Unavailable YSABEL DUQUE Referring Unavailable ANDER LANGLEY Primary Care Unavailable JAYASHREE AVILEZ Referring Unavailable ANDER LANGLEY Primary Care Unavailable Medications Current Medications Medication Drug Class(es) Dates Sig (Normalized) Sig (Original) acarbose 50 mg oral tablet (6 sources) alpha-Glucosidase Inhibitor Start: 11-10-2023 acarbose (PRECOSE) tablet 100 mg Start: 04-03-2023 take 1 tablet by aquilino th twice daily acarbose (PRECOSE) 100 mg tablet Take 1 tablet by mouth two times a day. 0 04/03/2023 Active acetaminophen 500 mg oral ta blet (6 sources) Start: 11-10-2023 acetaminophen (TYLENOL) tablet 1,000 mg Start: 08-03-2023 acetaminophen Refills(s) 0 Start Date: 08/03/23 Status: Ordered Start: 05-20-2023 take 1 tablet by aquilino th every eight hours as needed acetaminophen (TYLENOL) 500 mg tablet Take 1 tablet by mouth every 8 hours as needed. 0 05/20/2023 Active [id number] 200 actuat albuterol 0.09 mg/actuat metered dose inhaler (6 sources) beta2-Adrenergic Agonist Start: 04-22-2023 albut sherly HFA (PROVENTIL HFA, VENTOLIN HFA) 90 mcg/actuation inhaler Inhale 2 Puffs as instructed. 0 04/22/2023 Active Start: 09-28-2012 take 2.5 mg by inhal ation every six hours albuterol 0.083% Inh Joycelyn 3 mL UD 2.5 mg, 3 mL, Inhalation, q6hr, Refill(s) 0 Start Date: 09/28/12 Status: Ordered albuterol 0.833 mg/ml / ipratropium bromide 0.167 mg/ml inhalation solution (1 source) Anticholinergic, beta2-Adrenergic Agonist Start: 11-10-2023 ipratropium 0.5 mg-albuterol 2.5 mg (DUONEB) nebulizer solution 1 Dose aluminum hydroxide 40 mg/ml / magnesium hydroxide 40 mg/ml oral suspension (2 sources) aluminum-magnesi um hydroxide (MAG-AL) 200-200 mg/5 mL suspension Take 5 mL by mouth. 0 Active aluminum hydroxide 40 mg/ml / magnesium hydroxide 40 mg/ml / simethicone 4 mg/ml oral suspension (2 sources) Start: 10-01-2023 aluminum-magne sium hydroxide-simethicon e 200-200-20 mg/5 mL suspension aspirin 81 mg oral tablet (5 sources) Platelet Aggregation Inhibitor, Nonsteroidal Anti-inflammatory Drug Start: 08-03-2023 aspirin 81 mg cap Take 81 mg by mouth. 0 08/03/2023 Active Start: 08-03-2023 aspirin Refill s(s) 0 Start Date: 08/03/23 Status: Ordered atorvastatin 40 mg oral tablet (5 sources) HMG-CoA Reductase Inhibitor Start: 05-15-2023 take 1 tablet by mouth once daily in the evening atorvastatin (LIPITOR) 40 mg tablet Take 1 tablet by mouth every evening. 0 05/15/2023 Active Baclofen (3 sources) gamma-Aminobutyric Acid-ergic Agonist Start: 08-03-2023 BACLOFEN 20 MG TABLET BACLOFEN 20 MG TABLET, As Directed Start Date: 08/03/23 Status: Ordered cholecalciferol 0.125 mg oral tablet (2 sources) Vitamin D Start: 08-08-2023 cholecalciferol (VITAMIN D3) 5,000 unit tab citalopram 20 mg oral tablet (3 sources) Serotonin Reuptake Inhibitor Start: 04-16-2013 take 1 tablet by mouth once daily CeleXA 20 mg Tab 20 mg = 1 tab(s), Oral, Daily, Refills(s) 0 Start Date: 04/16/13 Status: Ordered cyclobenzaprine (3 sources) Muscle Relaxant Start: 02-13-2013 Flexeril Oral, TID, Refills(s) 0 Start Date: 02/13/13 Status: Ordered 0.5 ml dulaglutide 1.5 mg/ml auto-injector (2 sources) GLP-1 Receptor Agonist Start: 06-09-2023 TRULICITY 0.75 mg/0.5 mL pen injector famotidine 40 mg oral tablet (5 sources) Histamine-2 Receptor Antagonist Start: 04-24-2023 famotidine (PEPCID) 40 mg tablet Refills(s) 0 0 04/24/2023 Active ferrous sulfate 325 mg oral tablet (5 sources) Start: 05-08-2023 ferrous sulfate 325 mg (65 mg iron) tablet Take 325 mg by mouth. 0 05/08/2023 Active fluticasone propionate 0.05 mg/actuat metered dose nasal spray (3 sources) Corticosteroid Start: 11-10-2023 fluticasone (FLONASE) 50 MCG/ACT nasal spray 2 spray fluticasone (ALISSA NASE) 50 mcg/actuation nasal spray 1 [place] once daily. 0 Active furosemide 20 mg oral tablet (2 sources) Loop Diuretic Start: 09-23-2023 End: 11-20-2024 take 1 tablet by mouth once daily furosemide (LASIX) 20 mg tablet Take 1 tablet by mouth once daily. 0 09/23/2023 11/20/2024 Active glucagon (rdna) 1 mg injection (1 source) Antihypoglycemic Agent Start: 11-10-2023 glucago n injection 1 mg 1000 ml glucose 100 mg/ml injection (3 sources) Start: 11-10-2023 dextrose 10 % infusion Start: 11-10-2023 dextrose bolus 10% 125 mL Start: 11-10-2023 glucose chewab le tablet 16 g hydrocortisone 25 mg/ml topical cream (2 sources) Corticosteroid Start: 04-26-2023 hydrocortisone (ANUSOL-HC) 2.5 % rectal cream insulin lispro 100 unt/ml injectable solution (1 source) Insulin Analog Start: 11-10-2023 insulin lispro (HUMALOG) injection vial 0-10 Units ipratropium bromide 0.2 mg/ml inhalation solution (2 sources) Anticholinergic ipratropium (ATROVENT) 0.02 % nebulizer solution Take by nebulization every 6 (six) hours 0 Active lumateperone 42 mg oral capsule (6 sources) Start: 05-01-2023 Lumateperone Tosylate (CAPLYTA) capsule 42 mg (Patient Supplied) magnesium hydroxide 80 mg/ml oral suspension (2 sources) magnesium hydrox miguel angel (MOM) 400 mg/5 mL suspension Take 30 mL by mouth. 0 Active menthol 0.05 mg/mg topical gel (2 sources) menthol (BIOFREE ZE, MENTHOL,) 5 % topical gel Apply 5 % to affected area. 0 Active metFORMIN hydrochloride 1000 mg oral tablet (5 sources) Biguanide Start: 05-01-2023 metFORMIN (GLUCOPHAGE) 1,000 mg tablet Take 1,000 mg by mouth. 0 05/01/2023 Active montelukast 10 mg oral tablet (6 sources) Leukotriene Receptor Antagonist Start: 05-21-2023 montelukast (SINGULAIR) tablet 10 mg nitroglycerin 0.4 mg sublingual tablet (1 source) Nitrate Vasodilator Start: 11-10-2023 nitroGLYCERIN (NITROSTAT) SL tablet 0.4 mg OLANZapine 10 mg oral tablet (3 sources) Atypical Antipsychotic Start: 07-22-2012 take 1 tablet by mouth once daily ZyPREXA 10 mg Tab 10 mg = 1 tab(s), Oral, Daily, # 30 tab(s), Refills(s) 0 Start Date: 07/22/12 Status: Ordered ondansetron 4 mg disintegrating oral tablet (2 sources) Serotonin-3 Receptor Antagonist Start: 09-28-2023 ondansetron orally disintegrating (ZOFRAN ODT) 4 mg disintegrating tablet ondansetron (ZOFRAN-ODT) disintegrating tablet 4 mg (1 [...] Refill(s) 0 Start Date: 09/23/11 Status: Ordered pseudoephedrine hydrochloride 30 mg oral tablet (2 sources) alpha-Adrenergic Agonist Start: 04-17-2023 take 1 tablet by mouth every four hours as needed pseudoephedrine (SUDAFED) 30 mg tablet Take 30 mg by mouth every 4 hours as needed. 0 04/17/2023 Active QUEtiapine 100 mg oral tablet (3 sources) Atypical Antipsychotic Start: 04-16-2013 take 1 tablet by mouth twice daily quetiapine 100 mg Tab 100 mg = 1 tab(s), Oral, BID, Refills(s) 0 Start Date: 04/16/13 Status: Ordered 12 hr ranolazine 500 mg extended release oral tablet (2 sources) Anti-anginal Start: 04-19-2023 take 1 tablet by mouth twice daily ranolazine ER (RANEXA) 500 mg 12 hr tablet Take 1 tablet by mouth two times a day. 0 04/19/2023 Active sacubitril 24 mg / valsartan 26 mg oral tablet (6 sources) Angiotensin 2 Receptor Man Start: 11-10-2023 sacubitril-valsarta n (ENTRESTO) 24-26 MG per tablet 1 tablet Start: 08-03-2023 Entresto 24 mg -26 mg oral tablet Refill(s) 0 Start Date: 08/03/23 Status: Ordered Start: 05-15-2023 take 1 tablet by aquilino twice daily sacubitril-valsartan (ENTRESTO) 24-26 mg tablet Take 1 tablet by mouth two times a day. 0 05/15/2023 Active sennosides, shelter 8.6 mg oral tablet (1 source) Start: 11-10-2023 senna (SENOKOT ) tablet 17.2 mg topiramate 25 mg oral tablet (3 sources) Start: 05-08-2023 topiramate (TO PAMAX) 25 mg tablet traMADol hydrochloride 50 mg oral tablet (3 sources) Opioid Agonist Start: 09-23-2011 take 1 tablet by mouth once daily Ultram 50 mg, Oral, Daily, tab(s), Refills(s) 0 Start Date: 09/23/11 Status: Ordered traZODone hydrochloride 50 mg oral tablet (2 sources) Serotonin Reuptake Inhibitor Start: 05-08-2023 traZODone (DESYREL) 50 mg tablet vitamin b12 1 mg oral tablet (2 sources) Vitamin B12 Start: 04-30-2023 take 1 tablet by mouth once daily cyanocobalamin (VITAMIN B-12) 1,000 mcg tab Take 1 tablet by mouth once daily. 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 No IV access, insert saline lock prior to the beginning of sedation, infusion, injection of imaging exam. Discontinue saline lock post exam. If Pt has a central line or IVAD, may access for administration according to line specific nursing protocol. Once exam is complete flush line and de-access according to line specific nursing protocol in the MR contrast administration guidelines link. 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 No IV access, insert saline lock prior to the beginning of sedation, infusion, injection of imaging exam. Discontinue saline lock post exam. If Pt has a central line or IVAD, may access for administration according to line specific nursing protocol. Once exam is complete flush line and de-access according to line specific nursing protocol in the MR contrast administration guidelines link. 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 Administer intra-vaginal Surgilube immediately prior the MRI procedure (total amount to patient toleranace). 5 g 0 11/25/2023 11/25/2023 Discontinued Problems Active Problems Problem Classification Problem Date Documented Date Episodic/Chronic Asthma (3 sources) Asthma 04-17-2012 Chronic Cancer of cervix (5 sources) Overlapping malignant neoplasm of uterine cervix; Translations: [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 uteri] Onset: 4 11-25-2023 Chronic Cancer of cervix (1 source) [...] source) Long-term current use of aspirin; Translations: [MCC (current) use of aspirin] Onset: 4 Episodic [...] Test Name Value Interpretation Reference Range Facility Consultation Noteon 12-02-19 Consultation Note [id number] FF Normal [facility] Orders Onlyon 12-01-2023 Orders Only [id number] Kelby Johnson 1955 F Date Provider Department Center 12/01/2023 [id number], HISTORICAL CARD [facility] Family History Problem Relation Age of Onset Coronary artery disease Mother Cancer Father Diabetes Father Family Status - Relation Status Age at Mother Father Normal [facility] OUTSIDE SURG PATH SLIDE REVI EWon 11-25-2023 CASE REPORT [facility] Comment on above: Order Comment: Speci men Type: FORMALIN-FIXED PARAFFIN-EMBEDDED TISSUE SPECIMEN Ordering Facility: [facility] Outside Review Address: , , Result Comment: Surg ical Pathology Report Case: [id number] Authorizing Provider: Mariam Mckinley MD Collected: 11/25/2023 02:11 PM Ordering Location: [facility] Received: 11/25/2023 02:12 PM [facility] Pathologist: Ernestina Parada MD Specimen: Slide(s), 5 SLIDES [id number] Performed By: #### L [id number] #### [facility] CLIA [id number] [address] [place] [address] STATES OF [place] DIAGNOSIS COMMENT 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 [facility] Comment on above: Order Comment: Speci men Type: FORMALIN-FIXED PARAFFIN-EMBEDDED TISSUE SPECIMEN Ordering Facility: [facility] Outside Review Address: , , Performed By: #### L [id number] #### [facility] CLIA [id number] [address] [place] [address] OF [place] FINAL DIAGNOSIS [facility] Comment on above: Order Comment: Speci men Type: FORMALIN-FIXED PARAFFIN-EMBEDDED TISSUE SPECIMEN Ordering Facility: [facility] Outside Review Address: , , Result Comment: Outs miguel angel case from [place], [place] (VS [id number], collected 11/11/2023) A. Left cervix, biopsy: - Invasive squamous cell carcinoma, see comment. B. 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 Performed By: #### L [id number] #### [facility] CLIA [id number] [address] [place] [address] OF [facility] FINAL PERFORMING LAB Normal [facility] Comment on above: Order Comment: Speci men Type: FORMALIN-FIXED PARAFFIN-EMBEDDED TISSUE SPECIMEN Ordering Facility: Outside Review Address: , , Result Comment: Diag nostic interpretation performed at [place] [address] CLIA# [id number] Celery Tier: Navdeep Pickering M.D. Performed By: #### L [id number] #### [facility] CLIA [id number] [address] [place] [address] OF [place] Orders Onlyon 11-21-2023 Orders Only [id number] Kelby Johnson 1955 F Date Provider Department [place] 11/21/2023 MARV CASAREZ CELESTE [facility] Family History Problem Relation Age of Onset Coronary artery disease Mother Cancer Father Diabetes Father Family Status - Relation Status Age at Mother Father Normal [facility] Consultation Noteon 11-14-19 24 Consultation Note [id number] IFF Normal [facility] Glucose,Whole Bloodon 2023 Glucose [Mass/Vol] 124 mg/dL High 65-105 [facility] Glucose [Mass/Vol] 87 mg/dL Normal 65-105 [facility] POC Glucose Fingerstickon Glucose [Mass/Vol] 124 mg/dL High 65 - 105 mg/dL [facility] Interpretation and review of laboratory results Abnormal [facility] Glucose [Mass/Vol] 87 mg/dL 65 - 105 mg/dL [facility] CBC with Auto Differentialon 11-11-2023 Basophils (Bld) [#/Vol] 0.03 10*3/uL [facility] Basophils/100 WBC (Bld) 0 % 0 - 2 % [facility] Eosinophils (Bld) [#/Vol] 0.31 10*3/uL [facility] Eosinophils/100 WBC (Bld) 5 % High 1 - 4 % [facility] Erythrocyte distribution width (RBC) [Ratio] 16.1 % High 11.8 - 14.4 % [facility] Hematocrit (Bld) [Volume fraction] 31.6 % Low 36.3 - 47.1 % [facility] Hemoglobin (Bld) [Mass/Vol] 9.0 g/dL Low 11.9 - 15.1 g/dL [facility] Immature granulocytes (Bld) [#/Vol] 0.04 10*3/uL [facility] Immature granulocytes/100 WBC (Bld) 1 % High 0 [facility] Interpretation and review of laboratory results Abnormal [facility] Lymphocytes/100 WBC (Bld) 18 % Low 24 - 43 % [facility] Lymphocytes/100 WBC (Bld) 1.19 % [facility] MCH (RBC) [Entitic mass] 27.4 pg 25.2 - 33.5 pg [facility] MCHC (RBC) [Mass/Vol] 28.5 g/dL 28.4 - 34.8 g/dL [facility] MCV (RBC) [Entitic vol] 96.0 fL 82.6 - 102.9 fL [facility] Monocytes/100 WBC (Bld) 14 % High 3 - 12 % [facility] Monocytes/100 WBC (Bld) 0.91 % [facility] Neutrophils/100 WBC (Bld) 62 % 36 - 65 % [facility] Nucleated RBC/100 WBC (Bld) [Ratio] 0.0 % 0.0 per 100 WBC [facility] Platelet mean volume (Bld) [Entitic vol] 8.6 fL 8.1 - 13.5 fL [facility] Platelets (Bld) [#/Vol] 413 10*3/uL [facility] RBC (Bld) [#/Vol] 3.29 10*6/uL Low 3.95 - 5.1 1 m/uL [facility] RBC (Bld) [#/Vol] ANISOCYTOSIS PRESENT [facility] Segmented neutrophils/100 WBC (Bld) 4.27 % [facility] WBC other (Bld) [#/Vol] 6.8 [facility] CBC with Diffon 11-11-2023 Abs. Basophil 0.03 k/uL Normal 0.00-0.20 [facility] Comment on above: Performed By: #### C DP, CP #### [facility] [email or web address] [address] [place] [address] Tobacco Prevention Health Educator: Guillaume Roamn MD Abs.Imm.Granulocyte 0.04 k/uL Normal 0.00-0.30 [facility] Comment on above: Performed By: #### C DP, CP #### [place] [address] Tobacco Prevention Health Educator: Guillaume Roman MD Abs.Neutrophil (Seg) 4.27 k/uL Normal 1.50-8.10 [facility] Comment on above: Performed By: #### C DP, CP #### [facility] [address] [place] [address] Tobacco Prevention Health Educator: Guillaume Roman MD Basophils/100 WBC (Bld) 0 % Normal 0-2 [facility] Comment on above: Performed By: #### C DP, CP #### [facility] [employer] [address] [place] [address] Tobacco Prevention Health Educator: Guillaume Roman MD Eosinophils (Bld) [#/Vol] 0.31 10*3/uL Normal 0.00-0.44 [facility] Comment on above: Performed By: #### C DP, CP #### [facility] [employer] [address] [place] [address] Tobacco Prevention Health Educator: Guillaume Roman MD Eosinophils/100 WBC (Bld) 5 % High 1-4 [facility] Comment on above: Performed By: #### C DP, CP #### [address] [address] Tobacco Prevention Health Educator: Guillaume Roman MD Erythrocyte distribution width (RBC) [Ratio] 16.1 % High 11.8-14.4 [facility] Comment on above: Performed By: #### C DP, CP #### [address] [address] Tobacco Prevention Health Educator: Guillaume Roman MD Hematocrit (Bld) [Volume fraction] 31.6 % Low 36.3-47.1 [facility] Comment on above: Performed By: #### C DP, CP #### [address] [address] Tobacco Prevention Health Educator: Guillaume Roman MD Hemoglobin (Bld) [Mass/Vol] 9.0 g/dL Low 11.9-15.1 [facility] Comment on above: Performed By: #### C DP, CP #### [address] [address] Tobacco Prevention Health Educator: Guillaume Roman MD Immature granulocytes/100 WBC (Bld) 1 % High 0 [facility] Comment on above: Performed By: #### C DP, CP #### [address] [address] Tobacco Prevention Health Educator: Guillaume Roman MD Lymphocytes (Bld) [#/Vol] 1.19 10*3/uL Normal 1.10-3.70 [facility] Comment on above: Performed By: #### C DP, CP #### [address] [address] Tobacco Prevention Health Educator: Guillaume Roman MD Lymphocytes/100 WBC (Bld) 18 % Low 24-43 [facility] Comment on above: Performed By: #### C DP, CP #### [address] [address] Tobacco Prevention Health Educator: Guillaume Roman MD MCH (RBC) [Entitic mass] 27.4 pg Normal 25.2-33.5 [facility] Comment on above: Performed By: #### C DP, CP #### [address] [address] Tobacco Prevention Health Educator: Guillaume Roman MD MCHC (RBC) [Mass/Vol] 28.5 g/dL Normal 28.4-34.8 [facility] Comment on above: Performed By: #### C DP, CP #### [address] [address] Tobacco Prevention Health Educator: Guillaume Roman MD MCV (RBC) [Entitic vol] 96.0 fL Normal 82.6-102.9 [facility] Comment on above: Performed By: #### C DP, CP #### [address] [address] Tobacco Prevention Health Educator: Guillaume Roman MD Monocytes (Bld) [#/Vol] 0.91 10*3/uL Normal 0.10-1.20 [facility] Comment on above: Performed By: #### C DP, CP #### [address] [address] Tobacco Prevention Health Educator: Guillaume Roman MD Monocytes/100 WBC (Bld) 14 % High 3-12 [facility] Comment on above: Performed By: #### C DP, CP #### [address] [address] Tobacco Prevention Health Educator: Guillaume Roman MD Neutrophil (Seg) 62 % Normal 36-65 [facility] Comment on above: Performed By: #### C DP, CP #### [address] [address] Tobacco Prevention Health Educator: Guillaume Roman MD NRBC Automated 0.0 per 100 WBC Normal 0.0 [facility] Comment on above: Performed By: #### C DP, CP #### [address] [address] Tobacco Prevention Health Educator: Guillaume Roman MD Platelet mean volume (Bld) [Entitic vol] 8.6 fL Normal 8.1-13.5 [facility] Comment on above: Performed By: #### C DP, CP #### [address] [address] Tobacco Prevention Health Educator: Guillaume Roman MD Platelets (Bld) [#/Vol] 413 10*3/uL Normal 138-453 [facility] Comment on above: Performed By: #### C DP, CP #### [address] [address] Tobacco Prevention Health Educator: Guillaume Roman MD RBC (Bld) [#/Vol] 3.29 10*6/uL Low 3.95-5.11 [facility] Comment on above: Performed By: #### C DP, CP #### [address] [address] Tobacco Prevention Health Educator: Guillaume Roman MD RBC morphology finding Nom (Bld) ANISOCYTOSIS PRESENT Normal [facility] Comment on above: Performed By: #### C DP, CP #### [address] [address] Tobacco Prevention Health Educator: Guillaume Roman MD WBC (Bld) [#/Vol] 6.8 10*3/uL Normal 3.5-11.3 [facility] Comment on above: Performed By: #### C DP, CP #### [address] [address] Tobacco Prevention Health Educator: Guillaume Roman MD Comp Metabolic Profon 2023 Albumin [Mass/Vol] 3.6 g/dL Normal 3.5-5.2 [facility] Comment on above: Performed By: #### C DP, CP #### [address] [address] Tobacco Prevention Health Educator: Guillaume Roman MD Albumin/Glob Ratio 2.0 Normal 1.0-2.5 [facility] Comment on above: Performed By: #### C DP, CP #### [address] [address] Tobacco Prevention Health Educator: Guillaume Roman MD Alkaline Phos 93 U/L Normal 35-104 [facility] Comment on above: Performed By: #### C DP, CP #### [address] [address] Tobacco Prevention Health Educator: Guillaume Roman MD ALT [Catalytic activity/Vol] 14 U/L Normal 10-35 [facility] Comment on above: Performed By: #### C DP, CP #### [address] [address] Tobacco Prevention Health Educator: Guillaume Roman MD Anion gap [Moles/Vol] 10 mmol/L Normal 9-16 [facility] Comment on above: Performed By: #### C DP, CP #### [address] [address] Tobacco Prevention Health Educator: Guillaume Roman MD AST [Catalytic activity/Vol] 33 U/L Normal 10-35 [facility] Comment on above: Performed By: #### C DP, CP #### [address] [address] Tobacco Prevention Health Educator: Guillaume Roman MD Bilirubin [Mass/Vol] 0.3 mg/dL Normal 0.00-1.20 [facility] Comment on above: Performed By: #### C DP, CP #### [address] [address] Tobacco Prevention Health Educator: Guillaume Roman MD Calcium [Mass/Vol] 8.8 mg/dL Normal 8.6-10.4 [facility] Comment on above: Performed By: #### C DP, CP #### [address] [address] Tobacco Prevention Health Educator: Guillaume Roman MD Chloride [Moles/Vol] 109 mmol/L High 98-107 [facility] Comment on above: Performed By: #### C DP, CP #### [address] [address] Tobacco Prevention Health Educator: Guillaume Roman MD CO2 [Moles/Vol] 19 mmol/L Low 20-31 [facility] Comment on above: Performed By: #### C DP, CP #### [address] [address] Tobacco Prevention Health Educator: Guillaume Roman MD Creatinine [Mass/Vol] 1.0 mg/dL High 0.50-0.90 [facility] Comment on above: Performed By: #### C DP, CP #### [place] [address] Tobacco Prevention Health Educator: Guillaume Roman MD GFR/1.73 sq M.predicted among non-blacks MDRD (S/P/Bld) [Vol rate/Area] 59 mL/min/{1.73_m2} Low >60 [facility] Comment on above: Result Comment: These [...] Performed By: #### C DP, CP #### [facility] Center[facility] Communications [address] [place] [address] Tobacco Prevention Health Educator: Guillaume Roman MD Glucose [Mass/Vol] 97 mg/dL Normal 74-99 [facility] Comment on above: Performed By: #### C DP, CP #### [facility] [employer] [address] [place] [address] Tobacco Prevention Health Educator: Guillaume Roman MD Potassium [Moles/Vol] 4.3 mmol/L Normal 3.7-5.3 [facility] Comment on above: Result Comment: SPEC IMEN SLIGHTLY HEMOLYZED, RESULTS MAY BE ADVERSELY AFFECTED. Performed By: #### C DP, CP #### [address] [address] Tobacco Prevention Health Educator: Guillaume Roman MD Protein [Mass/Vol] 5.4 g/dL Low 6.6-8.7 [facility] Comment on above: Performed By: #### C DP, CP #### [facility] [email or web address] [address] [place] [address] Tobacco Prevention Health Educator: Guillaume Roman MD Sodium [Moles/Vol] 138 mmol/L Normal 136-145 [facility] Comment on above: Performed By: #### C DP, CP #### [facility] Center[facility] [address] [place] [address] Tobacco Prevention Health Educator: Guillaume Roman MD Urea nitrogen [Mass/Vol] 11 mg/dL Normal 8-23 [facility] Comment on above: Performed By: #### C DP, CP #### [facility] Center[facility] [address] [place] [address] Tobacco Prevention Health Educator: Guillaume Roman MD Comprehensive Metabolic Pane [facility] 11-11-2023 Albumin [Mass/Vol] 3.6 g/dL 3.5 - 5.2 g/dL [facility] Albumin/Globulin [Mass ratio] 2.0 {ratio} 1.0 - 2.5 [facility] ALP [Catalytic activity/Vol] 93 U/L 35 - 104 U/L [facility] ALT [Catalytic activity/Vol] 14 U/L 10 - 35 U/L [facility] Anion gap [Moles/Vol] 10 mmol/L 9 - 16 mmol/L [facility] AST [Catalytic activity/Vol] 33 U/L 10 - 35 U/L [facility] Bilirubin [Mass/Vol] 0.3 mg/dL 0.00 - 1.20 mg/dL [facility] Calcium [Mass/Vol] 8.8 mg/dL 8.6 - 10. 4 mg/dL [facility] Chloride [Moles/Vol] 109 mmol/L High 98 - 10 7 mmol/L [facility] CO2 [Moles/Vol] 19 mmol/L Low 20 - 31 mmol/L [facility] Creatinine [Mass/Vol] 1.0 mg/dL High 0.50 - 0.90 mg/dL [facility] Est, Glom Filt Rate 59 Low - [facility] Comment on above: These results are not [...] [Mass/Vol] 97 mg/dL 74 - 99 mg/dL [facility] Interpretation and review of laboratory results Abnormal [facility] Potassium [Moles/Vol] 4.3 mmol/L 3.7 - 5.3 mmol/L [facility] Comment on above: SPECIMEN SLIGHTLY HE MOLYZED, RESULTS MAY BE ADVERSELY AFFECTED. Protein [Mass/Vol] 5.4 g/dL Low 6.6 - 8.7 g/dL [facility] Sodium [Moles/Vol] 138 mmol/L 136 - 145 mmol/L [facility] Urea nitrogen [Mass/Vol] 11 mg/dL 8 - 23 mg/dL [facility] [employer] [facility] Consultation Noteon 11-11-19 24 Consultation Note [id number] IFF Normal [facility] EKG 12 LeadOrdered By: Butch Nascimento on 11-11-2023 Atrial Rate 62 BPM [facility] Work Phone: P [place] 40 degrees [facility] [employer] [facility] Work Phone: P-R Interval 168 ms [employer] [facility] Work Phone: Q-T Interval 404 ms [employer] [facility] Work Phone: QTc Calculation (Bazett) 410 ms [employer] [facility] Work Phone: R [place] 6 degrees [employer] [facility] Work Phone: T [place] 20 degrees [employer] [facility] Work Phone: Ventricular Rate 62 BPM [facility] [employer] [facility] Work Phone: EKG 12 Leadon 11-11-2023 Normal sinus rhythm Cannot rule out Anterior infarct , age undetermined Abnormal ECG No previous ECGs available [facility] Wily Davies MD / Butch Nascimento MD - 11/11/2023 Normal sinus rhythm Cannot rule out Anterior infarct , age undetermined Abnormal ECG No previous ECGs available [facility] Atrial Rate 65 BPM [facility] P [place] 42 degrees [facility] P-R Interval 172 ms [facility] Q-T Interval 406 ms [facility] QTc Calculation (Bazett) 422 ms [facility] R [place] 7 degrees [facility] T [place] 19 degrees [facility] Ventricular Rate 65 BPM [facility] Normal sinus rhythm Normal ECG When compared with ECG of 10-NOV-2023 04:31, No significant change was found [facility] STWily Walter MD / Butch Nascimento MD - 11/11/2023 Normal sinus rhythm Normal ECG When compared with ECG of 10-NOV-2023 04:31, No significant change was found [facility] Glucose,Whole Bloodon 2023 Glucose [Mass/Vol] 120 mg/dL High 65-105 [facility] Glucose [Mass/Vol] 92 mg/dL Normal 65-105 [facility] Glucose [Mass/Vol] 83 mg/dL Normal 65-105 [facility] Glucose [Mass/Vol] 83 mg/dL Normal 65-105 [facility] Glucose [Mass/Vol] 88 mg/dL Normal 65-105 [facility] Glucose [Mass/Vol] 104 mg/dL Normal 65-105 [facility] MRI PELVIS W WO CONTRASTon 0 [...] Frank Deleon MD 11/10/23 Final result Normal [facility] No Panel InformationOrdered By: Butch Nascimento on 11-11-2023 QRS Duration 86 ms [facility] [employer] Work Phone: [facility] [employer] Work Phone: POC Glucose [employer] Glucose [Mass/Vol] 120 mg/dL High 65 - 105 mg/dL [facility] Interpretation and review of laboratory results Abnormal [facility] Glucose [Mass/Vol] 92 mg/dL 65 - 105 mg/dL [facility] Glucose [Mass/Vol] 83 mg/dL 65 - 105 mg/dL [facility] Glucose [Mass/Vol] 83 mg/dL 65 - 105 mg/dL [facility] Glucose [Mass/Vol] 88 mg/dL 65 - 105 mg/dL [facility] RAD - MRI Reporton RAD - MRI Report [id number] IFF Normal [facility] Surgical Pathology Reporton 11-11-2023 Surgical Pathology Report (NOTE) [id number] [facility] [employer] [facility] ANATOMIC PATHOLOGY [address] [place] [address]. [place], [place] [address] SURGICAL PATHOLOGY CONSULTATION [id number] Path Number: [id number] Collected: 11/11/2023 Received: 11/14/2023 Reported: 11/17/2023 08:30 -- Diagnosis -- A. LEFT CERVIX, BIOPSY: -INVASIVE SQUAMOUS CELL CARCINOMA. -BACKGROUND HIGH-GRADE SQUAMOUS EPITHELIAL LESION (SUDHA-3). B. RIGHT VAGINAL CERVIX, BIOPSY: -PIECES OF SQUAMOUS MUCOSA WITH HIGH-GRADE SQUAMOUS EPITHELIAL LESION (SUDHA 3/VaIN 3). -NO DEFINITIVE INVASION IDENTIFIED. C. LEFT MONS SKIN LESION, BIOPSY: -SEBORRHEIC KERATOSIS. Jamarcus Bagley M.D Electronically Signed Out keith11/15/2023 Procedures/Addenda ADDENDUM AFTER SPECIAL STAINS Date Ordered: 12/02/2023 Status: Signed Out Date Complete: 12/02/2023 By: Candy Banegas Date Reported: 12/02/2023 INTERPRETATION AT THE REQUEST OF DR. JAYASHREE AVILEZ, BLOCK A1 WAS SENT TO [facility] FOR PD-L1 EXPRESSION TESTING. THE RESULTS ARE FOLLOWS: PD-L1 EXPRESSION: POSITIVE TUMOR PROPORTION SCORE (TPS): 15% COMBINED POSITIVE SCORE (CPS): 17 PLEASE SEE [facility]' COMPLETE REPORT ([id number]) FOR DETAILS. Candy Banegas Clinical Information Pre-Op Diagnosis: BLEEDING FROM THE [...] cm in aggregate. Entirely 1cs. B. CANDIS ALEX, RIGHT VAGINAL CERVIX BIOPSY Received in formalin are red-brown fragments, 2.2 x 0.8 x 0.2 cm in aggregate. Entirely 1cs. C. CANDIS JOHNSON, LEFT MONS SKIN LESION Received in formalin is a 0.9 x 0.8 x 0.3 cm portion of unoriented boyd-brown skin. Inked and trisected 1cs. tm Microscopic Description A-C. Microscopic examination performed. Diagnosis of malignancy confirmed by Dr. Sommer. A. P16 immunostain shows strong block positivity in the dysplastic squamous epithelium and in the invasive squamous carcinoma. Control reacts as expected. Normal [facility] BLOOD BANK SPECIMENon 2023 [facility] CBC with Auto Differentialon 05-02-2024 Basophils (Bld) [#/Vol] [facility] Basophils/100 WBC (Bld) 0 % 0 - 2 % [facility] Eosinophils (Bld) [#/Vol] 0.03 10*3/uL [facility] Eosinophils/100 WBC (Bld) 0 % Low 1 - 4 % [facility] Erythrocyte distribution width (RBC) [Ratio] 15.9 % High 11.8 - 14.4 % [facility] Hematocrit (Bld) [Volume fraction] 29.5 % Low 36.3 - 47.1 % [facility] Hemoglobin (Bld) [Mass/Vol] 8.7 g/dL Low 11.9 - 15.1 g/dL [facility] Immature granulocytes (Bld) [#/Vol] 0.06 10*3/uL [facility] Immature granulocytes/100 WBC (Bld) 1 % High 0 [facility] Interpretation and review of laboratory results Abnormal [facility] Lymphocytes/100 WBC (Bld) 10 % Low 24 - 43 % [facility] Lymphocytes/100 WBC (Bld) 0.86 % Low [facility] MCH (RBC) [Entitic mass] 26.9 pg 25.2 - 33.5 pg [facility] MCHC (RBC) [Mass/Vol] 29.5 g/dL 28.4 - 34.8 g/dL [facility] MCV (RBC) [Entitic vol] 91.3 fL 82.6 - 102.9 fL [facility] Monocytes/100 WBC (Bld) 9 % 3 - 12 % [facility] Monocytes/100 WBC (Bld) 0.72 % [facility] Neutrophils/100 WBC (Bld) 80 % High 36 - 65 % [facility] Nucleated RBC/100 WBC (Bld) [Ratio] 0.0 % 0.0 per 100 WBC [facility] Platelet mean volume (Bld) [Entitic vol] 8.5 fL 8.1 - 13.5 fL [facility] Platelets (Bld) [#/Vol] 389 10*3/uL [facility] RBC (Bld) [#/Vol] 3.23 10*6/uL Low 3.95 - 5.1 1 m/uL [facility] RBC (Bld) [#/Vol] ANISOCYTOSIS PRESENT [facility] Segmented neutrophils/100 WBC (Bld) 6.82 % [facility] WBC other (Bld) [#/Vol] 8.5 [facility] CBC with Diffon 11-10-2023 Abs. Basophil <0.03 Normal 0.00-0.20 [facility] Comment on above: Performed By: #### G LYHGB, CDP #### [facility] [email or web address] [address] [place] [address] Tobacco Prevention Health Educator: Guillaume Roman MD Abs.Imm.Granulocyte 0.06 k/uL Normal 0.00-0.30 [facility] Comment on above: Performed By: #### G LYHGB, CDP #### [facility] [email or web address] [address] [place] [address] Tobacco Prevention Health Educator: Guillaume Roman MD Abs.Neutrophil (Seg) 6.82 k/uL Normal 1.50-8.10 [facility] Comment on above: Performed By: #### G LYHGB, CDP #### [facility] [employer] [address] [place] [address] Tobacco Prevention Health Educator: Guillaume Roman MD Basophils/100 WBC (Bld) 0 % Normal 0-2 [facility] Comment on above: Performed By: #### G LYHGB, CDP #### [facility] [email or web address] [address] [place] [address] Tobacco Prevention Health Educator: Guillaume Roman MD Eosinophils (Bld) [#/Vol] 0.03 10*3/uL Normal 0.00-0.44 [facility] Comment on above: Performed By: #### G LYHGB, CDP #### [facility] [email or web address] [address] [place] [address] Tobacco Prevention Health Educator: Guillaume Roman MD Eosinophils/100 WBC (Bld) 0 % Low 1-4 [facility] Comment on above: Performed By: #### G LYHGB, CDP #### [facility] [email or web address] [address] [place] [address] Tobacco Prevention Health Educator: Guillaume Roman MD Erythrocyte distribution width (RBC) [Ratio] 15.9 % High 11.8-14.4 [facility] Comment on above: Performed By: #### G LYHGB, CDP #### [facility] [employer] [address] [place] [address] Tobacco Prevention Health Educator: Guillaume Roman MD Hematocrit (Bld) [Volume fraction] 29.5 % Low 36.3-47.1 [facility] Comment on above: Performed By: #### G LYHGB, CDP #### [facility] [employer] [address] [place] [address] Tobacco Prevention Health Educator: Guillaume Roman MD Hemoglobin (Bld) [Mass/Vol] 8.7 g/dL Low 11.9-15.1 [facility] Comment on above: Performed By: #### G LYHGB, CDP #### [facility] [employer] [address] [place] [address] Tobacco Prevention Health Educator: Guillaume Roman MD Immature granulocytes/100 WBC (Bld) 1 % High 0 [facility] Comment on above: Performed By: #### G LYHGB, CDP #### [facility] [email or web address] [address] [place] [address] Tobacco Prevention Health Educator: Guillaume Roman MD Lymphocytes (Bld) [#/Vol] 0.86 10*3/uL Low 1.10-3.70 [facility] Comment on above: Performed By: #### G LYHGB, CDP #### [facility] [email or web address] [address] [place] [address] Tobacco Prevention Health Educator: Guillaume Roman MD Lymphocytes/100 WBC (Bld) 10 % Low 24-43 [facility] Comment on above: Performed By: #### G LYHGB, CDP #### [address] [address] Tobacco Prevention Health Educator: Guillaume Roman MD MCH (RBC) [Entitic mass] 26.9 pg Normal 25.2-33.5 [facility] Comment on above: Performed By: #### G LYHGB, CDP #### [address] [address] Tobacco Prevention Health Educator: Guillaume Roman MD MCHC (RBC) [Mass/Vol] 29.5 g/dL Normal 28.4-34.8 [facility] Comment on above: Performed By: #### G LYHGB, CDP #### [address] [address] Tobacco Prevention Health Educator: Guillaume Roman MD MCV (RBC) [Entitic vol] 91.3 fL Normal 82.6-102.9 [facility] Comment on above: Performed By: #### G LYHGB, CDP #### [address] [address] Tobacco Prevention Health Educator: Guillaume Roman MD Monocytes (Bld) [#/Vol] 0.72 10*3/uL Normal 0.10-1.20 [facility] Comment on above: Performed By: #### G LYHGB, CDP #### [address] [address] Tobacco Prevention Health Educator: Guillaume Roman MD Monocytes/100 WBC (Bld) 9 % Normal 3-12 [facility] Comment on above: Performed By: #### G LYHGB, CDP #### [address] [address] Tobacco Prevention Health Educator: Guillaume Roman MD Neutrophil (Seg) 80 % High 36-65 [facility] Comment on above: Performed By: #### G LYHGB, CDP #### [address] [address] Tobacco Prevention Health Educator: Guillaume Roman MD NRBC Automated 0.0 per 100 WBC Normal 0.0 [facility] Comment on above: Performed By: #### G LYHGB, CDP #### [address] [address] Tobacco Prevention Health Educator: Guillaume Roman MD Platelet mean volume (Bld) [Entitic vol] 8.5 fL Normal 8.1-13.5 [facility] Comment on above: Performed By: #### G LYHGB, CDP #### [address] [address] Tobacco Prevention Health Educator: Guillaume Roman MD Platelets (Bld) [#/Vol] 389 10*3/uL Normal 138-453 [facility] Comment on above: Performed By: #### G LYHGB, CDP #### [address] [address] Tobacco Prevention Health Educator: Guillaume Roman MD RBC (Bld) [#/Vol] 3.23 10*6/uL Low 3.95-5.11 [facility] Comment on above: Performed By: #### G LYHGB, CDP #### [address] [address] Tobacco Prevention Health Educator: Guillaume Roman MD RBC morphology finding Nom (Bld) ANISOCYTOSIS PRESENT Normal [facility] Comment on above: Performed By: #### G LYHGB, CDP #### [address] [address] Tobacco Prevention Health Educator: Guillaume Roman MD WBC (Bld) [#/Vol] 8.5 10*3/uL Normal 3.5-11.3 [facility] Comment on above: Performed By: #### G LYHGB, CDP #### [address] [place] [address] Tobacco Prevention Health Educator: Guillaume Roman MD CT HEAD WO CONTRASTon [...] True Mccall MD 11/10/23 Final result Normal [facility] CT Head WO contraston 2023 No acute intracrania l abnormality. [facility] RIS CONSOLIDATED EXAMINATION: CT OF THE HEAD [...] of the visualized skull or soft tissues. [facility] True Valentine MD - 11/10/2023 EXAMINATION: CT OF THE [...] soft tissues. IMPRESSION: No acute intracranial abnormality. [facility] Radiology Study observation (narrative) [facility] CT Head WO contrastOrdered B y: True Mccall on 11-10-2023 [facility] Work Phone: Comp Metabolic Pr/rfx MGon 0 11-10-2023 Albumin [Mass/Vol] 3.5 g/dL Normal 3.5-5.2 [facility] Comment on above: Performed By: #### C DP, CP #### [employer] [address] [place] [address] [phone] Tobacco Prevention Health Educator: Guillaume Roman MD Albumin/Glob Ratio 2.0 Normal 1.0-2.5 [facility] Comment on above: Performed By: #### C DP, CP #### [employer] [address] [place] [address] [phone] Tobacco Prevention Health Educator: Guillaume Roman MD Alkaline Phos 85 U/L Normal 35-104 [facility] Comment on above: Performed By: #### C DP, CP #### [address] [address] Tobacco Prevention Health Educator: Guillaume Roman MD ALT [Catalytic activity/Vol] 9 U/L Low 10-35 [facility] Comment on above: Performed By: #### C DP, CP #### [address] [address] Tobacco Prevention Health Educator: Guillaume Roman MD Anion gap [Moles/Vol] 12 mmol/L Normal 9-16 [facility] Comment on above: Performed By: #### C DP, CP #### [address] [address] Tobacco Prevention Health Educator: Guillaume Roman MD AST [Catalytic activity/Vol] 20 U/L Normal 10-35 [facility] Comment on above: Performed By: #### C DP, CP #### [address] [address] Tobacco Prevention Health Educator: Guillaume Roman MD Bilirubin [Mass/Vol] 0.2 mg/dL Normal 0.00-1.20 [facility] Comment on above: Performed By: #### C DP, CP #### [address] [address] Tobacco Prevention Health Educator: Guillaume Roman MD Calcium [Mass/Vol] 8.4 mg/dL Low 8.6-10.4 [facility] Comment on above: Performed By: #### C DP, CP #### [address] [address] Tobacco Prevention Health Educator: Guillaume Roman MD Chloride [Moles/Vol] 108 mmol/L High 98-107 [facility] Comment on above: Performed By: #### C DP, CP #### [address] [address] Tobacco Prevention Health Educator: Guillaume Roman MD CO2 [Moles/Vol] 17 mmol/L Low 20-31 [facility] Comment on above: Performed By: #### C DP, CP #### [address] [id number] Tobacco Prevention Health Educator: Guillaume Roman MD Creatinine [Mass/Vol] 0.9 mg/dL Normal 0.50-0.90 [facility] Comment on above: Performed By: #### C DP, CP #### [address] [phone] Tobacco Prevention Health Educator: Guillaume Roman MD GFR/1.73 sq M.predicted among non-blacks MDRD (S/P/Bld) [Vol rate/Area] 66 mL/min/{1.73_m2} Normal >60 [facility] Comment on above: Result Comment: These [...] Performed By: #### C DP, CP #### [address] [phone] Tobacco Prevention Health Educator: Guillaume Roman MD Glucose [Mass/Vol] 99 mg/dL Normal 74-99 [facility] Comment on above: Performed By: #### C DP, CP #### [address] [phone] Tobacco Prevention Health Educator: Guillaume Roman MD Potassium [Moles/Vol] 4.5 mmol/L Normal 3.7-5.3 [facility] Comment on above: Result Comment: SPEC IMEN SLIGHTLY HEMOLYZED, RESULTS MAY BE ADVERSELY AFFECTED. Performed By: #### C DP, CP #### [address] [place] [address] Tobacco Prevention Health Educator: Guillaume Roman MD Protein [Mass/Vol] 5.0 g/dL Low 6.6-8.7 [facility] Comment on above: Performed By: #### C DP, CP #### [facility] [address] [place] [address] Tobacco Prevention Health Educator: Guillaume Roman MD Sodium [Moles/Vol] 137 mmol/L Normal 136-145 [facility] Comment on above: Performed By: #### C DP, CP #### [facility] [address] [place] [address] Tobacco Prevention Health Educator: Guillaume Roman MD Urea nitrogen [Mass/Vol] 10 mg/dL Normal 8-23 [facility] Comment on above: Performed By: #### C DP, CP #### [facility] [place] [address] Tobacco Prevention Health Educator: Guillaume Roman MD Comprehensive Metabolic Pane l w/ Reflex to MGon 11-10-2023 Albumin [Mass/Vol] 3.5 g/dL 3.5 - 5.2 g/dL [facility] Albumin/Globulin [Mass ratio] 2.0 {ratio} 1.0 - 2.5 [facility] ALP [Catalytic activity/Vol] 85 U/L 35 - 104 U/L [facility] ALT [Catalytic activity/Vol] 9 U/L Low 10 - 35 U/L [facility] Anion gap [Moles/Vol] 12 mmol/L 9 - 16 mmol/L [facility] AST [Catalytic activity/Vol] 20 U/L 10 - 35 U/L [facility] Bilirubin [Mass/Vol] 0.2 mg/dL 0.00 - 1.20 mg/dL [facility] Calcium [Mass/Vol] 8.4 mg/dL Low 8.6 - 10. 4 mg/dL [facility] Chloride [Moles/Vol] 108 mmol/L High 98 - 10 7 mmol/L [facility] CO2 [Moles/Vol] 17 mmol/L Low 20 - 31 mmol/L [facility] Creatinine [Mass/Vol] 0.9 mg/dL 0.50 - 0.90 mg/dL [facility] [employer] Rate 66 - [facility] Comment on above: These results are not [...] [Mass/Vol] 99 mg/dL 74 - 99 mg/dL [facility] Interpretation and review of laboratory results Abnormal [facility] Potassium [Moles/Vol] 4.5 mmol/L 3.7 - 5.3 mmol/L [facility] Comment on above: SPECIMEN SLIGHTLY HE MOLYZED, RESULTS MAY BE ADVERSELY AFFECTED. Protein [Mass/Vol] 5.0 g/dL Low 6.6 - 8.7 g/dL [facility] Sodium [Moles/Vol] 137 mmol/L 136 - 145 mmol/L [facility] Urea nitrogen [Mass/Vol] 10 mg/dL 8 - 23 mg/dL [facility] Glucose,Whole Bloodon 2023 Glucose [Mass/Vol] 86 mg/dL Normal 65-105 [facility] Glucose [Mass/Vol] 89 mg/dL Normal 65-105 [facility] Glucose [Mass/Vol] 91 mg/dL Normal 65-105 [facility] Hemoglobin A1Con 11-10-2023 Glucose [Mass/Vol] 82 mg/dL Normal [facility] Comment on above: Result Comment: The ADA and AACC recommend providing the estimated average glucose result to permit better patient understanding of their HBA1c result. Performed By: #### G DAVID JASSO #### [facility] [place] [address] Tobacco Prevention Health Educator: Guillaume Roman MD HbA1c (Bld) [Mass fraction] 4.5 % Normal 4.0-6.0 [facility] Comment on above: Performed By: #### G LOUISA, CDP #### [facility] [address] [place], [place] [phone] Tobacco Prevention Health Educator: Guillaume Roman MD Average glucose Estimated from glycated hemoglobin (Bld) [Mass/Vol] 82 mg/dL [facility] [employer] Comment on above: The ADA and AACC rec ommend providing the estimated average glucose result to permit better patient understanding of their HBA1c result. HbA1c (Bld) [Mass fraction] 4.5 % 4.0 - 6.0 % [facility] [employer] [facility] [employer] Lipid Panelon 11-10-2023 Cholesterol [Mass/Vol] 79 mg/dL 0 - 199 mg/dL [facility] [employer] Comment on above: Cholesterol Guidelines: <200 Desirable 200-240 Borderline >240 Undesirable Cholesterol in HDL [Mass/Vol] 55 mg/dL 40 - PINF mg/dL [facility] [employer] Comment on above: HDL Guidelines: <40 Undesirable 40-59 Borderline >59 Desirable Cholesterol in LDL [Mass/Vol] 11 mg/dL 0 - 100 mg/dL [facility] [employer] Comment on above: LDL Guidelines: <100 Desirable 100-129 Near to/above Desirable 130-159 Borderline >159 Undesirable Direct (measured) LDL and calculated LDL are not interchangeable tests. Cholesterol in VLDL [Mass/Vol] 13 mg/dL [facility] [employer] Cholesterol.total/Cho lesterol in HDL [Mass ratio] 1.0 {ratio} [facility] [employer] Triglyceride [Mass/Vol] 66 mg/dL NINF - 150 mg/dL [facility] [employer] Comment on above: Triglyceride Guidelines: <150 Desirable 150-199 Borderline 200-499 High >499 Very high Based on AHA Guidelines for fasting triglyceride, April 2012. Lipid Profileon 11-10-2023 Cholesterol [Mass/Vol] 79 mg/dL Normal 0-199 [facility] Comment on above: Result Comment: Cholesterol Guidelines: <200 Desirable 200-240 Borderline >240 Undesirable Performed By: #### C DP, CP #### [facility] [address] [place], [place] [id number] Tobacco Prevention Health Educator: Guillaume Roman MD Cholesterol in HDL [Mass/Vol] 55 mg/dL Normal >40 [facility] Comment on above: Result Comment: HDL Guidelines: <40 Undesirable 40-59 Borderline >59 Desirable Performed By: #### C DP, CP #### [address] [address] Tobacco Prevention Health Educator: Guillaume Roman MD Cholesterol in LDL [Mass/Vol] 11 mg/dL Normal 0-100 [facility] Comment on above: Result Comment: LDL Guidelines: <100 Desirable 100-129 Near to/above Desirable 130-159 Borderline >159 Undesirable Direct (measured) LDL and calculated LDL are not interchangeable tests. Performed By: #### C DP, CP #### [address] [address] Tobacco Prevention Health Educator: Guillaume Roman MD Cholesterol in VLDL [Mass/Vol] 13 mg/dL Normal [facility] Comment on above: Performed By: #### C DP, CP #### [address] [address] Tobacco Prevention Health Educator: Guillaume Roman MD Cholesterol.total/Cho lesterol in HDL [Mass ratio] 1.0 {ratio} Normal [facility] Comment on above: Performed By: #### C DP, CP #### [address] [address] Tobacco Prevention Health Educator: Guillaume Roman MD Triglyceride [Mass/Vol] 66 mg/dL Normal <150 [facility] Comment on above: Result Comment: Triglyceride Guidelines: <150 Desirable 150-199 Borderline 200-499 High >499 Very high Based on AHA Guidelines for fasting triglyceride, April 2012. Performed By: #### C DP, CP #### [address] [address] Tobacco Prevention Health Educator: Guillaume Roman MD MR Pelvis WO and [...] left greater than right, is likely metastatic. [facility] EXAMINATION: MRI OF [...] osseous structures are unremarkable. Minimal free fluid. [facility] Frank Deleon MD [...] left greater than right, is likely metastatic. [facility] [employer] Radiology Study observation (narrative) [facility] [employer] MR Pelvis WO and W contrast IVOrdered By: Frank Deleon on 11-10-2023 [facility] Work Phone: No Panel Informationon 11-09 [facility] [employer] POC Glucose Fingerstickon Glucose [Mass/Vol] 104 mg/dL 65 - 105 mg/dL [facility] [employer] Glucose [Mass/Vol] 86 mg/dL 65 - 105 mg/dL [facility] [employer] Glucose [Mass/Vol] 89 mg/dL 65 - 105 mg/dL [facility] [employer] Glucose [Mass/Vol] 91 mg/dL 65 - 105 mg/dL [facility] [employer] PREVIOUS SPECIMENon 11-10-19 24 [facility] [employer] Specimen Rejectionon 024 Reason for rejection Unable to perform testing: Specimen clotted. Normal [facility] Comment on above: Performed By: #### C DP, CP #### [facility] [employer] [address] [place] [address] Tobacco Prevention Health Educator: Guillaume Roman MD Source of sample .BLOOD Normal [facility] Comment on above: Performed By: #### C DP, CP #### [employer] [address] [place] [address] [phone] Tobacco Prevention Health Educator: Guillaume Roman MD Test ordered CDP, GLYHGB [facility] Comment on above: Performed By: #### C DP, CP #### [facility] [address] [place] [address] [phone] Tobacco Prevention Health Educator: Guillaume Roman MD TYPE AND SCREENon 11-10-2023 ABO and Rh group Nom (Bld) Blood group O Rh(D) positive [facility] Arm [place] Number BE [id number] [facility] Blood Bank Sample Expiration 11/13/2023,2359 [facility] Blood group antibodies identified Nom Negative [facility] Type + Screenon 11-10-2023 Type + Screen Sample Expiration 11/13/2023,2359 Arm Band Number BE [id number] ABO/Rh(D) O POSITIVE Antibody Screen NEGATIVE [facility] Comment on above: Performed By: #### T YS #### [facility] [address] [place] [address] [phone] Tobacco Prevention Health Educator: Guillaume Roman MD [facility] L Specimen: [id number] Received: 11/10/23 Status: TESS Wadsworth Num: [id number] Spec Type: Surgical Subm Dr: Kobe Crespo Tissues: A Endometrium - Curettings (EMC) Procedures: HE/6, Gross/Micro L4 Age/ Patient Sex Location Account Attending Physician Candis Johnson 68/F LABELL [id number] Kobe Crespo SPEC NUM: [id number] RECD: 11/10/23 STATUS: TESS WADSWORTH NUM: [id number] NOY: 11/09/[address]: Kobe Crespo ENTERED: 11/10/[address]: Gail,Lab SPEC TYPE: Surgical DEPT: BLANCHE [facility]IA ORDERED: HE/6, Gross/Micro L4 ORDERED: HE, Gross/Micro L4 Pathological Diagnosis Endometrium, curettage: ? [...] uterus didelphys, vaginal stenosis, cervical stenosis Specimen: [id number] Received: 11/10/23 Status: TESS Wadsworth Num: [id number] Spec Type: Surgical Subm Dr: Kobe Crespo Tissues: A Endometrium - Curettings (EMC) Procedures: , Gross/Micro L4 Patient: RaheelglennCandis [id number] (Continued) Specimen: [id number] Received: 11/10/23 (Continued) Signed (signature on file) Jamarcus Chao MD 11/11/23 1448 Specimen: [id number] Received: 11/10/23 Status: TESS Berry Num: [id number] Spec Type: Surgical Subm Dr: Kobe Crespo Tissues: A Endometrium - Curettings (EMC) Procedures: Ginna PINEDA/Ashley L4 Patient: Candis Johnson [id number] (Continued) Specimen: [id number] Received: 11/10/23 (Continued) CPT Codes 84521 Specimen: [id number] Received: 11/10/23 Status: TESS Wadsworth Num: [id number] Spec Type: Surgical Subm Dr: Kobe Crespo Tissues: A Endometrium - Curettings (EMC) Procedures: /Ginna Sorto/Ashley L4 Patient: Candis Johnson [id number] (Continued) Signed (signature on file) Jamarcus Chao MD 11/11/23 1448 Normal [facility] Reportson 11-08-2023 Lab Reports [id number]#1.00T IFF Normal [facility] Lab Reportson 11-07-2023 Lab Reports [id number]#1.00T IFF Normal [facility] Consent for Procedure/Surger yon 10-14-2023 Consent for Procedure/Surgery [id number]#1.00T IFF Normal [facility] Office Visiton 10-06-2023 Follow-up visit [id number] CapepanchoglennKelby 1955 Provider Department Center 10/06/2023 REBECCA VASQUEZ Family History Problem Relation Age of Onset Coronary artery disease Mother Cancer Father Diabetes Father Family Status - Relation Status Age at Mother Father Level of Service:57145 MI OFFICE/OUTPATIENT ESTABLISHED MOD MDM 30 MIN Normal [facility] Office Visiton 09-23-2023 Follow-up visit [id number] RaheelglennKelby 1955 Provider Department Center 09/23/2023 GUERDA RYDER Family History Problem Relation Age of Onset Coronary artery disease Mother Cancer Father Diabetes Father Family Status - Relation Status Age at Mother Father Level of Service:83676 MI OFFICE/OUTPATIENT ESTABLISHED LOW MDM 20 MIN Reason for Visit and Comments: Follow-up [397367] - Concerns: Not much states some swelling in legs and some back back, chest pain seems to be getting better Normal [facility] Office Visiton 08-26-2023 Follow-up visit [id number] RaheelglennKelby 1955 Date Provider Department Center 08/26/2023 GUERDA RYDER Family History Problem Relation Age of Onset Coronary artery disease Mother Cancer Father Diabetes Father Family Status - Relation Status Age at Mother Father Level of Service:12129 MI OFFICE/OUTPATIENT NEW MODERATE MDM 45 MINUTES Normal [facility] Consent for Procedure/Surger yon 08-24-2023 Consent for Procedure/Surgery [id number]#1.00T IFF Normal [facility] Consent for Procedure/Surger yon 08-09-2023 Consent for Procedure/Surgery [id number]#1.00T IFF Normal [facility] Urine Cytology ([facility])on 0 08-09-2023 Urine Cytology Diagnosis Info Invalid Interpretation Code [facility] Comment on above: Result Comment: A:Ur ine,Urine:Voided Interpretation - MicroScopic Description - Adequacy - Gross Description Site ID:A color Dark Yellow fixative Alcohol Specimen designated Urine received in alcohol preservative and labeled with the patient?s name, consists of 110ml slightly cloudy dark yellow fluid. Electronically signed by : on: 08/09/2023 11:46:02 Performed By: #### 1 [id number] ####[place] [address] Physician Referralon 024 Physician Referral [id number] [facility] [id number]#1.00 TIFF Normal [facility] Screenson 08-04-2023 Screens [id number] [facility] [id number]#1.00TI FF Normal [facility] Urine Cytology ([facility])on 0 08-04-2023 UC Method of Extraction Voided Normal [facility] Comment on above: Performed By: #### 1 [id number] ####[facility] [address] [place], [place] [id number] Number of Jars 1 Invalid Interpretation Code [facility] Comment on above: Performed By: #### 1 [id number] ####[address] [address] Specimen Urine Normal [facility] Comment on above: Performed By: #### 1 [id number] ####[place] [id number] Type of Service Technical Only Normal [facility] Comment on above: Performed By: #### 1 [id number] ####[facility] [address] [place] [address] Ambulatory Visit Summaryon 0 08-03-2023 Ambulatory Visit Summary CANDIS JOHNSON :1955 Visit Date:08/03/2023 Ambulatory Visit Instructions Your Diagnosis Ureteral dilatation Gross hematuria Former smoker Aspirin long-term use Your Care Team Attending Physician - Pamela Benson MD Primary Care Physician - ANDER LANGLEY JR, [...] the caus (more content not included)... Normal [facility] Home Recordson 08-03 [facility] [id number]#1.00T IFF Normal [facility] Patient Educationon 08-03-19 Patient Education Urology [...] including vitamins, herbs, eye drops, creams, and zjbb-omr-nuodsfb medicines. ? Any problems you or family [...] care provider tells you to. ? Taking gvui-gth-wplxerv medicines, vitamins, herbs, and supplements. General instructions [...] be monitor (more content not included)... 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 *possible abnormality of urinary system. Ordered due to rectal bleeding. Pt is a new pt. Never before seen in our office. Pt is hard of hearing she can read lips and she has an nurses aid from her home ([facility]) CT abdomen pelvis wo/w con done @ [facility] on 06/06/23 She tried giving a urine [...] age Assessment/Plan 68 yo female resident of [facility] here for new patient evaluation of right hydroureteronephrosis. Pt is hard of hearing, can read lips and she has a nurses aid from her home with her. Mother had lung cancer. Denies any other urologic surgeries. 1. Hydroureteronephrosis (N13.30: Unspecified hydronephrosis) CT AP wo/w PO con @ [facility] on 06/06/23 - mod Rt-sided collecting system [...] of time. 4. 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 Normal [facility] Comment on above: Result Comment: Elec [...] by: RIVKA FRAZIER Date: 2022-07-05 15:47 Normal [facility] MAMM SCREEN 3D DERRICK CADon 05-14-2022 MAMM SCREEN 3D DERRICK CAD Patient: CANDIS JOHNSON Exam Date: 05/14/2022 : 1955 Gender:F Ordering : DR ANDER LANGLEY D.O. Admission #: [id number] Family : Order #: [id number] CLICK HERE TO VIEW EXAM RADIOLOGY REPORT PROCEDURE: MAMMOGRAM SCREENING 3D BILATERAL CAD COMPARISON: MAMM DERRICK DIAG W CAD, 04/23/2019. MAMM SCREEN 3D DERRICK CAD, 05/08/2021. INDICATIONS: Screening mammography Calculator Name NCI Breast Cancer Risk Assessment Tool 5 Year Breast Cancer Risk 1.40% Lifetime Breast Cancer Risk 4.80% Personal Breast Cancer No Personal Ovarian Cancer No Treatments None Family Cancers None LOCATION: [facility] BREAST COMPOSITION: Almost entirely fatty. FINDINGS: [...] Huddleston MD on 05/14/2022 at 12:49 Normal [facility] BNPon 03-07-2022 Natriuretic peptide B (Bld) [Mass/Vol] 115.0 pg/mL Normal <=900.0 [facility] Comment on above: Performed By: #### B HEAD PASTRY CHEF, CMP, HSTROPN #### [facility] [address] [place] [address] Dr. Carl Zuñiga CBC AUTO DIFFon 03-07-2022 BASO # 0.0 103/ul Normal 0.0-0.1 [facility] Comment on above: Performed By: #### B HEAD PASTRY CHEF, CMP, HSTROPN #### [facility] [address] [place] [address] Dr. Carl Zuñiga Basophils/100 WBC (Bld) 0.0 % Critically low 0.2-2.0 [facility] Comment on above: Performed By: #### B HEAD PASTRY CHEF, CMP, HSTROPN #### [facility] [address] [place] [address] Dr. Carl Zuñiga EO # 0.1 103/ul Normal 0.0-0.7 [facility] Comment on above: Performed By: #### B HEAD PASTRY CHEF, CMP, HSTROPN #### [facility] [address] [place] [address] Dr. Carl Zuñiga Eosinophils/100 WBC (Bld) 1.0 % Normal 0.9-7.0 [facility] Comment on above: Performed By: #### B HEAD PASTRY CHEF, CMP, HSTROPN #### [facility] [address] [place] [address] Dr. Carl Zuñiga Erythrocyte distribution width (RBC) [Ratio] 13.7 % Normal 11.0-15.0 [facility] Comment on above: Performed By: #### B HEAD PASTRY CHEF, CMP, HSTROPN #### [facility] [address] [place] [address] Dr. Carl Zuñiga Hematocrit (Bld) [Volume fraction] 40.8 % Normal 36.0-48.0 [facility] Comment on above: Performed By: #### B HEAD PASTRY CHEF, CMP, HSTROPN #### [facility] [address] [place] [address] Dr. Carl Zuñiga Hemoglobin (Bld) [Mass/Vol] 13.1 g/dL Normal 12.0-16.0 [facility] Comment on above: Performed By: #### B HEAD PASTRY CHEF, CMP, HSTROPN #### [facility] [address] [place] [address] Dr. Carl Zuñiga IG # 0.02 10e3/ul Normal 0.00-0.03 [facility] Comment on above: Performed By: #### B HEAD PASTRY CHEF, CMP, HSTROPN #### [facility] [address] [place] [address] Dr. Carl Zuñiga IG % 0.3 % Normal 0.0-0.5 [facility] Comment on above: Performed By: #### B HEAD PASTRY CHEF, CMP, HSTROPN #### [facility] [address] [place] [address] Dr. Carl Zuñiga LYMPH # 0.9 103/ul Critically low 1.2-3.8 [facility] Comment on above: Performed By: #### B HEAD PASTRY CHEF, CMP, HSTROPN #### [facility] [address] [place] [address] Dr. Carl Zuñiga Lymphocytes/100 WBC (Bld) 13.9 % Critically low 20.5-60.0 [facility] Comment on above: Performed By: #### B HEAD PASTRY CHEF, CMP, HSTROPN #### [facility] [address] [place] [address] Dr. Carl Zuñiga MANUAL DIFF REQ NO Normal [facility] Comment on above: Performed By: #### B HEAD PASTRY CHEF, CMP, HSTROPN #### [facility] [address] [place] [address] Dr. Carl Zuñiga MCH (RBC) [Entitic mass] 30.8 pg Normal 26.7-34.0 [facility] Comment on above: Performed By: #### B HEAD PASTRY CHEF, CMP, HSTROPN #### [facility] [address] [place] [address] Dr. Carl Zuñiga MCHC (RBC) [Mass/Vol] 32.1 g/dL Normal 29.9-35.2 [facility] Comment on above: Performed By: #### B HEAD PASTRY CHEF, CMP, HSTROPN #### [facility] [address] [place] [address] Dr. Carl Zuñiga MCV (RBC) [Entitic vol] 96.0 fL Normal 81.0-99.0 [facility] Comment on above: Performed By: #### B HEAD PASTRY CHEF, CMP, HSTROPN #### [facility] [address] [place] [address] Dr. Carl Zuñiga MONO # 0.6 103/ul Normal 0.3-0.8 [facility] Comment on above: Performed By: #### B HEAD PASTRY CHEF, CMP, HSTROPN #### [facility] [address] [place] [address] Dr. Carl Zuñiga Monocytes/100 WBC (Bld) 9.2 % Normal 1.7-12.0 [facility] Comment on above: Performed By: #### B HEAD PASTRY CHEF, CMP, HSTROPN #### [facility] [address] [place] [address] Dr. Carl Zuñiga NEUT # 5.1 103/ul Normal 1.4-6.5 [facility] Comment on above: Performed By: #### B HEAD PASTRY CHEF, CMP, HSTROPN #### [facility] [address] [place] [address] Dr. Carl Zuñiga Neutrophils/100 WBC (Bld) 75.6 % Critically high 43.0-75.0 [facility] Comment on above: Performed By: #### B HEAD PASTRY CHEF, CMP, HSTROPN #### [facility] [address] [place] [address] Dr. Carl Zuñiga Platelet mean volume (Bld) [Entitic vol] 8.5 fL Critically low 9.5-13.5 [facility] Comment on above: Performed By: #### B HEAD PASTRY CHEF, CMP, HSTROPN #### [facility] [address] [place] [address] Dr. Carl Zuñiga PLT 206 103/ul Normal 150-450 [facility] Comment on above: Performed By: #### B HEAD PASTRY CHEF, CMP, HSTROPN #### [facility] [address] [place] [address] Dr. Carl Zuñiga RBC 4.25 106/ul Normal 4.20-5.40 [facility] Comment on above: Performed By: #### B HEAD PASTRY CHEF, CMP, HSTROPN #### [facility] [address] [place] [address] [address] Carl Zuñiga WBC 6.7 103/ul Normal 4.0-11.0 [facility] Comment on above: Performed By: #### B HEAD PASTRY CHEF, CMP, HSTROPN #### [facility] [address] [place] [address] Dr. Carl Zuñiga D-DIMERon 03-07-2022 D-DIMER <0.19 Normal <=0.59 [facility] Comment on above: Performed By: #### D DIM #### [facility] [address] [place] [address] Dr. Carl Zuñiga D-DIMER COMMENTS SEE BELOW Normal [facility] Comment on above: Result Comment: Incr [...] hospitalization. Performed By: #### D DIM #### [facility] [address] [place] [address] Dr. Carl Zuñiga PROF 14(COMP METB)on 022 Albumin [Mass/Vol] 3.9 g/dL Normal 3.4-5.0 [facility] Comment on above: Performed By: #### B HEAD PASTRY CHEF, CMP, HSTROPN #### [facility] [address] [place] [address] Dr. Carl Zuñiga Albumin/Globulin [Mass ratio] 1.5 {ratio} Normal [facility] Comment on above: Performed By: #### B HEAD PASTRY CHEF, CMP, HSTROPN #### [facility] [address] [place] [address] Dr. Carl Zuñiga ALP [Catalytic activity/Vol] 96 U/L Normal 46-116 [facility] Comment on above: Performed By: #### B HEAD PASTRY CHEF, CMP, HSTROPN #### [facility] [address] [place] [address] [address] Carl Zuñiga ALT [Catalytic activity/Vol] 38 U/L Normal 14-59 [facility] Comment on above: Performed By: #### B HEAD PASTRY CHEF, CMP, HSTROPN #### [facility] [address] [place] [address] [address] Carl Zuñiga Anion gap [Moles/Vol] 9.8 mmol/L Normal [facility] Comment on above: Performed By: #### B HEAD PASTRY CHEF, CMP, HSTROPN #### [facility] [address] [place] [address] Dr. Carl Zuñiga AST [Catalytic activity/Vol] 16 U/L Normal 15-37 [facility] Comment on above: Performed By: #### B HEAD PASTRY CHEF, CMP, HSTROPN #### [facility] [address] [place] [address] Dr. Carl Zuñiga Bilirubin [Mass/Vol] 0.5 mg/dL Normal 0.2-1.0 [facility] Comment on above: Performed By: #### B HEAD PASTRY CHEF, CMP, HSTROPN #### [facility] [address] [place] [address] Dr. Carl Zuñiga Calcium [Mass/Vol] 9.2 mg/dL Normal 8.5-10.1 [facility] Comment on above: Performed By: #### B HEAD PASTRY CHEF, CMP, HSTROPN #### [facility] [address] [place] [address] Dr. Carl Zuñiga Chloride [Moles/Vol] 103 mmol/L Normal 98-107 [facility] Comment on above: Performed By: #### B HEAD PASTRY CHEF, CMP, HSTROPN #### [facility] [address] [place] [address] Dr. Carl Zuñiga CO2 [Moles/Vol] 29.1 mmol/L Normal 21.0-32.0 [facility] Comment on above: Performed By: #### B HEAD PASTRY CHEF, CMP, HSTROPN #### [facility] [address] [place] [address] [address] Carl Zuñiga Creatinine [Mass/Vol] 0.92 mg/dL Normal 0.55-1.02 [facility] Comment on above: Performed By: #### B HEAD PASTRY CHEF, CMP, HSTROPN #### [facility] [address] [place] [address] [address] Carl Zuñiga EGFR-AF SPANISH >60 Normal >=60 [facility] Comment on above: Performed By: #### B HEAD PASTRY CHEF, CMP, HSTROPN #### [facility] [address] [place] [address] [address] Carl Zuñiga EGFR-NON AF SPANISH >60 Normal >=60 [facility] Comment on above: Performed By: #### B HEAD PASTRY CHEF, CMP, HSTROPN #### [facility] [address] [place] [address] [address] Carl Zuñiga Globulin (S) [Mass/Vol] 2.6 g/dL Normal [facility] Comment on above: Performed By: #### B HEAD PASTRY CHEF, CMP, HSTROPN #### [facility] [address] [place] [address] [address] Carl Zuñiga Glucose [Mass/Vol] 109 mg/dL Critically high 74-106 [facility] Comment on above: Performed By: #### B HEAD PASTRY CHEF, CMP, HSTROPN #### [facility] [address] [address] [address] Carl Zuñiga Potassium [Moles/Vol] 3.9 mmol/L Normal 3.5-5.1 [facility] Comment on above: Performed By: #### B HEAD PASTRY CHEF, CMP, HSTROPN #### [facility] [address] [address] [address] Carl Zuñiga Protein [Mass/Vol] 6.5 g/dL Normal 6.4-8.2 [facility] Comment on above: Performed By: #### B HEAD PASTRY CHEF, CMP, HSTROPN #### [facility] [address] [address] [address] Carl Zuñiga Sodium [Moles/Vol] 138 mmol/L Normal 136-145 [facility] Comment on above: Performed By: #### B HEAD PASTRY CHEF, CMP, HSTROPN #### [facility] [address] [address] [address] Carl Zuñiga Urea nitrogen [Mass/Vol] 14.0 mg/dL Normal 7.0-18.0 [facility] Comment on above: Performed By: #### B HEAD PASTRY CHEF, CMP, HSTROPN #### [facility] [address] [address] [address] Carl Zuñiga Urea nitrogen/Creatinine [Mass ratio] 15.2 mg/mg Normal [facility] Comment on above: Performed By: #### B HEAD PASTRY CHEF, CMP, HSTROPN #### [facility] [address] [place] [address] Dr. Carl Zuñiga TROPONIN, HIGH SENSITIVITYon 03-07-2022 HSTROP 2.8 pg/mL Critically low 4.0-51.3 [facility] Comment on above: Result Comment: CUT- OFF POINTS HAVE BEEN ESTABLISHED BASED ON THE FOURTH UNIVERSAL DEFINITIONS OF MYOCARDIAL INFARCTION. THE UPPER REFERENCE LIMIT (URL) OF TROPONIN, DEFINED THE 99TH PERCENTILE OF cTnI DISTRIBUTION IN A REFERENCE POPULATION, HAS BEEN CONFIRMED THE DECISION THRESHOLD FOR [place] DIAGNOSIS. Performed By: #### B HEAD PASTRY CHEF, CMP, HSTROPN #### [facility] [address] [place] [address] Dr. Carl Zuñiga XR CHEST 1 Von [...] by: DIANA BREAUX Date: 2022-03-07 10:05 Normal [facility] CT CSPINE WO CONon CT CSPINE [...] MARQUES PATEL Date: 2021-07-10 02:49 Normal [facility] CT HEAD WO CONon 07-10-2021 CT [...] MARQUES PATEL Date: 2021-07-10 02:44 Normal [facility] XR CHEST 1 Von 07-10-2021 XR [...] MARQUES PATEL Date: 2021-07-10 02:46 Normal [facility] XR PELVIS 1_2 VIEWSon 2020 XR [...] by: MARQUES PATEL Date: 2021-07-10 02:47 Normal [facility] Vital Signs Date Time Vital Sign Value Performing Clinician Faci lity 11-12-2023 11:15-0400 Body temperature 97.9 [degF] Jayashree Avilez MD Work Phone[facility] 11-12-2023 11:15-0400 Diastolic blood pressure 58 mm[Hg] Jayashree Avilez MD Work Phone[facility] [employer] 11-12-2023 11:15-0400 Heart rate 74 /min Jayashree Avilez MD Work Phone: [facility] [employer] 11-12-2023 11:15-0400 Respiratory rate 18 /min Jayashree Avilez MD Work Phone[facility] 11-12-2023 11:15-0400 SaO2% (BldA) [Mass fraction] 96 % Jayashree Avilez MD Work Phone: [facility] [employer] 11-12-2023 11:15-0400 Systolic blood pressure 116 mm[Hg] Jayashree Avilez MD Work Phone: [facility] [employer] 11-10-2023 03:41-0400 Body height 162.6 cm Jayashree Avilez MD Work Phone[facility] [employer] 11-10-2023 03:41-0400 Body mass index (BMI) [Ratio] 33.34 kg/m2 Jayashree Avilez MD Work Phone: [facility] [employer] 11-10-2023 03:41-0400 Body weight 88.1 kg Jayashree Avilez MD Work Phone: [facility] 08-03-2023 08:23-0500 Blood Pressure Location Pamela Benson [facility] Encounters Encounter Date Encounter Type Care Provider Facility Start: 12-08-2023 End: 12-08-2023 Social Work Lisa Kruse LITIGATION COUNSEL Hematology/Oncology Comment on above: Patient Update Start: 12-07-2023 End: 12-07-2023 ambulatory LAISHA COBURN Facility:[facility] Start: 12-02-2023 End: 12-02-2023 ambulatory EL AHMADI Facility:[facility] Start: 11-28-2023 End: 11-29-2023 ambulatory Nathalie Saleh RN Radiation Oncology Comment on above: Patient Education Start: 11-25-2023 Orders Only El Ahmadi MD Work Phone: Radiation Oncology Comment on above: 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) (Primary Dx) Orders; Patient Upda te Start: 11-23-2023 Orders Only Bernadette Metzger [employer] Work Phone: Gynecology Oncology Comment on above: High grade squamous intraepithelial lesion (HGSIL), grade 3 SUDHA, on biopsy of cervix (Primary Dx) Start: 11-21-2023 End: 11-21-2023 [facility] Start: 11-17-2023 ambulatory Edmond Matias ty:[id number] Start: 11-10-2023 End: 11-12-2023 Evaluation and management of inpatient JAYASHREE AVILEZ [facility] Start: 11-10-2023 End: 11-12-2023 Evaluation and management of inpatient Jayashree Avilez MD Work Phone: [phone] MED SURG Comment on above: Bleeding from the ge nitourinary system Start: 11-09-2023 End: 11-09-2023 ambulatory Kobe Cherie Facility:[facility] Start: 11-02-2023 End: 11-02-2023 ambulatory KOBE CHERIE Not Available Start: 10-06-2023 End: 10-06-2023 ambulatory REBECCA [facility] Start: 09-23-2023 End: 09-23-2023 ambulatory [facility] Start: 08-26-2023 End: 08-26-2023 ambulatory [facility] Start: 08-24-2023 End: 08-25-2023 ambulatory Pamela M. Lue Facility:[facility] Start: 08-24-2023 End: 08-24-2023 Off-Site Pamela M. Lue [facility] Start: 08-04-2023 End: 08-05-2023 ambulatory Pamela M. Lue [place] Start: 08-04-2023 End: 08-04-2023 Lab Drop off Pamela M. Lue [facility] Start: 08-03-2023 End: 08-04-2023 ambulatory Pamela M. Lue Facility:[facility] Start: 08-03-2023 End: 08-03-2023 Patient encounter procedure [facility] Start: 07-27-2023 End: 07-27-2023 ambulatory KOBE CHERIE Not Available Start: 07-22-2023 ambulatory Pamela Lue [facility] Start: 07-06-2023 ambulatory Pamela Lue Facility:[facility] Start: 07-05-2023 End: 07-05-2023 ambulatory KOBE CHERIE Not Available Start: 05-25-2023 End: 05-25-2023 ambulatory KOBE CHERIE Not Available Start: 07-05-[address] RIVKA PAN Faci lity:H1 Start: 05-14-[address] ANDER gudinoy:H1 Start: 03-07-[address] ANDER Ruano ity:H1 [...] Phone: Start: 11-10-2023 Speech and language therapy regime Kadie Carroll MD Work Phone: Start: 11-10-2023 BLOOD BANK SPECIMEN Say saad Avilez MD Work Phone: Start: 11-10-2023 Lipid panel Kadie dangelo MD Work Phone: Start: 11-10-2023 End: 11-10-2023 Ecg routine ecg w/least 12 lds i&r only Kadie Carroll MD Work Phone: Start: 11-10-2023 Lipid 1996 panel - S adam or Plasma Bernadette Metzger [employer] Work Phone: [phone] Pamela Benson Plan of Treatment Date Care Activity Detail Author Start: 11-09-2028 Lipid panel [facility] Start: 11-10-2026 Diabetes Screening Diabetes Screenin g [facility] Start: 11-10-2024 GFR test (Diabetes, CKD 3-4, OR last GFR 15-59) GFR test (Diabetes, CKD 3-4, OR last GFR 15-59) [facility] Start: 03-11-2024 Influenza vaccination Influenz a Vaccine (Season Ended) [facility] Start: 02-09-2024 Influenza vaccination Flu vacc ine (Season Ended) [facility] Start: 01-16-2024 End: 12-27-2024 MR Pelvis WO and W contrast IV MRI FEMALE PELVIS WO/W IVCON Radiology Routine 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) Expected: 01/16/2024, Expires: 12/27/2024 [facility] Work Phone: Comment on above: Expected: 01/16/2024 , Expires: 12/27/2024 Start: 12-28-2023 End: 12-28-2023 ambulatory 12/28/2023 10:00 AM EDT Visit (SP) Office Gynecology Oncology [address] [place] [address] [place] [address] Mariam Mckinley MD [address] [place] [address] Vaginal Mass Gynecology Oncology Comment on above: [...] 1:00 PM EDT Office Visit Radiation Oncology [address] [place] [address] [place] [address] [place] [address] New Consult Radiation Oncology Comment on above: New Consult Start: 12-02-2023 End: 12-02-2023 Patient encounter procedure 12/02/2023 1:30 PM EDT Appointment Radiology Pet CT [address] [place] [address] Comment on above: pet scan Start: 11-28-2023 End: 11-28-2023 Patient encounter procedure 11/28/2023 9:00 AM EDT Office Visit Radiation Oncology [address] [place] [address] El Ahmadi MD [address] [place] [address] Dr Jareth Natarajan cevical cancer Radiation Oncology Comment on above: Dr Jareth Natarajan cevical cancer Start: 11-11-2023 Annual Wellness Visi t (Medicare) Annual Wellness Visit (Medicare) [facility] Start: 07-11-2023 Advance Directive Discussion Advance Directive Discussion [facility] Start: 07-11-2023 Behavioral Health Screening Behavioral Health Screening [facility] Start: 03-11-2023 Covid-19 Vaccine () Covid-19 Vaccine () [facility] Start: 03-11-2023 Covid-19 Vaccine ( season) Covid-19 Vaccine ( season) [facility] Start: 03-11-2023 COVID-19 Vaccine ( season) COVID-19 Vaccine ( season) [facility] Start: 2020 Pneumococcal 65+ yea rs Vaccine (1 of 1 - PCV) Pneumococcal 65+ years Vaccine (1 of 1 - PCV) [facility] Start: 2020 Pneumococcal Vaccine : 65+ (1 of 1 - PCV) Pneumococcal Vaccine: 65+ (1 of 1 - PCV) [facility] Start: 2020 Screening for osteoporosis Bone Density Screening [facility] Start: 2015 Respiratory Syncytia l Virus (RSV) or age 60 yrs+ (1 - 1-dose 60+ series) Respiratory Syncytial Virus (RSV) or age 60 yrs+ (1 - 1-dose 60+ series) [facility] Start: 2015 RSV Vaccine (1 - 1-dose 60+ series) RSV Vaccine (1 - 1-dose 60+ series) [facility] Start: 2010 Screening for osteoporosis DEXA (modify frequency per FRAX score) [facility] Start: 2005 Screening for malignant neoplasm of breast Breast cancer screen [facility] Start: 2005 Shingles vaccine (1 of 2) Shingles vaccine (1 of 2) [facility] Start: 2005 Shingrix Vaccine (1 of 2) Shingrix Vaccine (1 of 2) [facility] Start: 2000 Screening for malignant neoplasm of colon [facility] Start: 1995 Screening for malignant neoplasm of breast Mammogram Screening [facility] Start: 1974 DTaP/Tdap/Td vaccine (1 - Tdap) DTaP/Tdap/Td vaccine (1 - Tdap) [facility] Start: 1974 Urine microalbumin profile DTaP,Tdap,Td Vaccine (1 - Tdap) [facility] Start: 1973 Hepatitis C screening [facility] Start: 1967 Depression Screen Depression Screen [facility] [employer] Glucose [Mass/volume ] in Serum or Plasma [facility] [employer] Comment on above: 4X Daily (AC & HS) u ntil discontinued starting 11/10/2023 As Needed until disc ontinued starting 11/10/2023 OUTSIDE SURG PATH SLIDE REVIEW OUTSIDE SURG PATH SLIDE REVIEW Lab Routine High grade squamous intraepithelial lesion (HGSIL), grade 3 SUDHA, on biopsy of cervix Ordered: 11/23/2023 [facility] Work Phone: Comment on above: Ordered: 11/23/2023 Oxygen therapy [Minimum Data Set] Initiate Oxygen Therapy Protocol Respiratory Care Routine Daily until discontinued starting 11/10/2023 [facility] [employer] Comment on above: Daily until disconti nued starting 11/10/2023 End: 12-24-2024 PET+CT Guidance for localization of tumor of Skull base to mid-thigh-- W 18F-FDG IV NM PET/CT SKULL-THIGH INITIAL Radiology Routine 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) 1 Occurrences starting 11/25/2023 until 12/24/2024 [facility] Work Phone: Comment on above: 1 Occurrences starti ng 11/25/2023 until 12/24/2024 End: 11-10-2023 [facility]EN [facility]CTION [facility] Work Phone: Comment on above: Once for 1 Occurrenc es starting 11/10/2023 until 11/10/2023 Surgical Pathology Surgical Path ology Lab Routine Bleeding from the genitourinary system Release Upon Ordering for 1 Occurrences starting 11/11/2023 [facility] [employer] Comment on above: Release Upon Orderin g for 1 Occurrences starting 11/11/2023 Immunizations Immunization Date Immunization Notes Care Provider Fa cilimilla 05-27-2022 SARS-CoV-2 (COVID-19 ) [id number] Pamela Benson [facility] 06-12-2021 SARS-CoV-2 (COVID-19 ) mRNA BNT-162b2 vax Pamela Benson [facility] 08-13-2020 SARS-CoV-2 (COVID-19 ) mRNA BNT-162b2 kelseyx Pamela Benson [facility] Comment on above: Result Comment: 2023: [id number] 07-23-2020 SARS-CoV-2 (COVID-19 ) mRNA BNT-162b2 vax Pamela Benson [facility] Comment on above: Result Comment: 2023: [id number] Payers Date Payer Category Payer Self-pay 2023 Medicare [id number] 2020 Medicaid [id number] 2020 Medicaid MEDICAID [facility] MEDICAID [id number] 2020-Present [phone] [address] [place] [address] Medicaid [id number] 2020 Medicare [id number] 2020 Medicare MEDICARE MEDICAR E A AND B [id number] 2020-Present [phone] [address] [address] [place] [address] Medicare [id number] 1955 Unknown [id number] 1955 Unknown [id number] 1955 Unknown [id number] 1955 Unknown [id number] 1955 Unknown [id number] 1955 Unknown [id number] 1955 Unknown [id number] 1955 Unknown [id number] 1955 Unknown [id number] Unknown [id number] Social History Date Type Detail Facility Start: 08-03-2023 Tobacco smoking status Never s moked tobacco (finding) [facility] Start: 11-28-2023 End: 12-07-2023 Sex Assigned At Female [facility] Tobacco smoking stat [facility] Tobacco smoking consumption unknown [facility] Start: 1955 Sex Assigned At Not on file [facility] Start: 11-28-2023 Tobacco smoking stat [facility] Ex-smoker [facility] History of tobacco use Current smoker [facility] History of tobacco use Cigarette Smoker [facility] Start: 11-28-2023 End: 12-07-2023 Cigarettes smoked current (pack per day) - Reported 0.5 [facility] Start: 11-28-2023 Tobacco use and exposure Smokeless tobacco non-user [facility] Start: 11-28-2023 End: 12-07-2023 Alcohol intake Current drinker of alcohol (finding) [facility] National Score (1-10 0), lower number is lower risk 63 [facility] Functional Status Date Assessment Result Facility 08-03-2023 Functional Status N/A [facility] Clinical Notes 08-03-2023 to 12-08-2023 Lisa Kruse LSW - 12/08/2023 2:57 PM EDTTelephone Javid - Skylar Harris - 12/08/2023 1:09 PM EDTTelephone [facility] 1:09 PM EDT Note Date & Type Note Facility 12-08-2023 History of Presen t illness Narrative Patient appears on the [facility] First Time Radiation Treatment Report. SW completed a chart review and there was a note from today...Please cancel Candis's SIM scheduled 12/09/[address] Ahmadi. Patient's PET scan shows metastatic disease and patient will proceed with chemotherapy per Dr. Templeton. SW will remain available and will follow up as appropriate. BRENT Siddiqi documented in this encounter [facility] 12-08-2023 Telephone encounter Note Report faxed to Dr. Gleason and Dr. Avilez. Images pushed to [facility]. [facility] 12-08-2023 Miscellaneous Notes Report faxed to Dr. Gleason and Dr. Avilez. Images pushed to [facility]. Cancelled appointment. Yumiko: Please cancel Candis's SIM scheduled 12/09/[address] Ahmadi. Patient's PET scan shows metastatic disease and patient will proceed with chemotherapy per Dr. Gleason. Landen, pt's son and POA, notified of the cancelled appointment. He states Dr. Coburn called and notified him of the above. Candis has follow up scheduled with Dr. Gleason today. PET report and images will be forwarded to Dr. Gleason and Dr. Avilez once resulted. Pati: Please send PET images and report to Dr. Gleason and Dr. Avilez. Monica Boyle RN documented in this encounter [facility] 12-08-2023 Telephone encounter Note MRI not needed per chat [facility] 12-08-2023 Miscellaneous Notes MRI not needed per chat Spoke with patients son, he would like scheudled at [facility] since its easiest for nusing home I sent over order will check on later, thanks Called son to see where they would like the MRI scheduled, had to leave a message. MRI order pending your approval. Monica Boyle RN Please place MRI orders Rad onc consult order signed for main campus referral (brachytherapy). Can cancel consult request with Dr. Mckinley - she is established with [facility] onc out of [place] already (Dr. Avilez). Will need repeat MRI pelvis week of January 15. Thanks! El Dr Ahmadi- order pending your approval. Nathalie Saleh RN Please place [facility] RAD onc consult I called and spoke to Angelina at [facility] and she said Candis does very well at lip reading as long as you speak directly to her and speak slowly. She also said her son will be present for the consult. I spoke to Landen who agreed with the above. He said Candis has had progressive hearing loss and was not deaf at . She does not know sign language. She has been a resident at [facility] assisted living for 4-5 years and does very well there per Landen. I notified Landen that Dr. Ahmadi is ordering a PET scan, rad onc consult at [facility] and trying to move up Candis's consult with Dr. Elías zimmer. Landen states between himself and [facility] transportation should not be an issue. Yumiko: 1. Please schedule PET scan goran. 2. Rad Onc consult at [facility] 3. Move up Dr. Mckinley's consult goran. Dr. Mckinley are you or your staff able to assist in rescheduling Ms. Johnson's consult with you goran per Dr. Ahmadi? She is currently scheduled for consult on 12/28/23. Thanks Monica Boyle RN documented in this encounter [facility] 12-08-2023 Telephone encounter Note Cancelled appointment. [facility] 12-08-2023 Telephone encounter Note Yumiko: Please cancel Candis's SIM scheduled 12/09/[address] Ahmadi. Patient's PET scan shows metastatic disease and patient will proceed with chemotherapy per Dr. Gleason. Landen, pt's son and POA, notified of the cancelled appointment. He states Dr. Coburn called and notified him of the above. Candis has follow up scheduled with Dr. Gleason today. PET report and images will be forwarded to Dr. Gleason and Dr. Avilez once resulted. Pati: Please send PET images and report to Dr. Gleason and Dr. Avilez. Monica Boyle RN T [facility] 12-08-2023 Telephone encounter Note Spoke with patients son, he would like scheudled at [facility] since its easiest for nusing home I sent over order will check on later, thanks [facility] 12-08-2023 Telephone encounter Note Called son to see where they would like the MRI scheduled, had to leave a message. [facility] 12-02-2023 Note HNO ID: [id number] Author: MIRIAN JIMENES RT(Con) Service: ? Author Type: Technologist Type: Progress Notes Filed: 12/02/2023 14:23 Note Text: RADIOLOGY SERVICE PROGRESS NOTE SERVICE DATE: 12/02/2023 SERVICE TIME: 2:23 PM PATIENT IDENTITY VERIFICATION COMPLETED USING TWO (2) STANDARD IDENTIFIERS: Name and Date of confirmed by patient verbally POST EXAM PIV STATUS: Discontinued PROCEDURE TYPE: NM INJECT: PET/CT BODY SCAN. 9.7 mCi F18 FDG. No other medications given.. ADMINISTRATION TIME: 1340 PATIENT DISCHARGED TO: Ambulatory patient, left [place] department area. A Diagnostic radioactive procedure has taken place, with no further precautions necessary other than routine body substance precautions. More information regarding radiation safety can be found using this link: [email or web address] SIGNATURE: RT Aliyah(R) PATIENT NAME: Candis Johnson DATE: December 02, 2023 TIME: 2:23 PM PAGER/CONTACT #: [facility] 12-02-2023 Note HNO ID: [id number] Author: ASHWINI BUNCH RN Service: ? Author Type: Registered Nurse Type: Progress Notes Filed: 12/02/2023 13:45 Note Text: Radiology Service Progress Note DATE OF SERVICE: December 02, 2023 TIME: 1:44 PM PATIENT IDENTITY VERIFICATION COMPLETED USING TWO (2) STANDARD IDENTIFIERS: Name and Date of confirmed by patient verbally. FALL SCREENING: Has the patient had 2 falls in the last year or 1 fall with injury or currently using an Ambulatory Assistive Device (Walker, Cane, Wheelchair, Crutches, etc.)? Yes, Patient High Risk for Falls What interventions were put in place to prevent falls during this visit? Instructed Patient to Call for Help if Needed, Offered Assistance with Transfers/Clothing, and Instructed Patient to Remain Seated (Not on Exam Table) Until Exam PATIENT GENDER DATA: Female. status: : No status: NO. EXAM: CT -CONTRAST INDUCED NEPHROPATHY RISK FACTORS: Not applicable CREATININE: No results found for: CREAT , EGFROTH , EGFRAA P.O.C.T. RESULTS: N/A December 02, 2023 TREATMENT: N/A IV SITE: Ambulatory: A peripheral IV was started in the Left antecubital site with a Angio cath: 22 gauge. IV SITE APPEARANCE: Clean,Dry and Intact SIGNATURE: Ashwini Bunch RN PATIENT NAME: Candis Johnson DATE: December 02, 2023 TIME: 1:44 PM [facility] 11-28-2023 Telephone encounter Note MRI order pending your approval. Monica Boyle RN [facility] 11-28-2023 Note Education (RADROHITHA) CANDIS JOHNSON ([id number]) 1955 F DEF Date Time Provider Department 11/28/23 NATHALIE SALEH Reason for Visit: Patient Education [91] Visit Notes: >> Nathalie Saleh RN [facility] November 28, 2023 10:22 AM Status: Signed Radiation Therapy - Patient Education Note PATIENT NAME: Candis Johnson PATIENT November 28, 2023 [facility] FACILITY/LOCATION: [facility] READINESS TO LEARN Cognitive Ability: Confused at [...] Encounter Status:Closed by NATHALIE SALEH on 11/28/23 [facility] 11-28-2023 Telephone encounter Note Please place MRI orders [facility] 11-28-2023 Telephone encounter Note Rad onc consult order signed for main campus referral (brachytherapy). Can cancel consult request with Dr. Mckinley - she is established with [facility] onc out of [facility] (Dr. Avilez). Will need repeat MRI pelvis week of January 15. Thanks! El T [facility] 11-28-2023 Nurse Note Radiation Therapy - Patient Education Note PATIENT NAME: Candis Johnson PATIENT November 28, 2023 [facility] FACILITY/LOCATION: [facility] READINESS TO LEARN Cognitive Ability: Confused at [...] device: No Signed by: Nathalie Saleh RN T [facility] 11-28-2023 Nurse Note Radiation Therapy - Patient Education Note PATIENT NAME: Candis Johnson PATIENT November 28, 2023 [facility] Center READINESS TO LEARN Cognitive Ability: Confused at [...] Nathalie Saleh RN documented in this encounter [facility] 11-28-[address] Ahmadi- order pending your approval. Nathalie Saleh RN [facility] 11-28-2023 Telephone encounter Note Please place [facility] RAD onc consult [facility] 11-25-2023 Telephone encounter Note I called and spoke to Angelina at [facility] and she said Candis does very well at lip reading as long as you speak directly to her and speak slowly. She also said her son will be present for the consult. I spoke to Landen who agreed with the above. He said Candis has had progressive hearing loss and was not deaf at . She does not know sign language. She has been a resident at [facility] assisted living for 4-5 years and does very well there per Landen. I notified Landen that Dr. Ahmadi is ordering a PET scan, rad onc consult at [facility] and trying to move up Candis's consult with Dr. Elías zimmer. Landen states between himself and [facility] transportation should not be an issue. Yumiko: 1. Please schedule PET scan goran. 2. Rad Onc consult at [facility] 3. Move up Dr. Mckinley's consult goran. Dr. Mckinley are you or your staff able to assist in rescheduling Ms. Johnson's consult with you goran per Dr. Ahmadi? She is currently scheduled for consult on 12/28/23. 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 Wil Mai MD Post Framer Resident [facility] 11/12/2023, 9:07 AM documented in this encounter [facility] 11-12-2023 History of Presen t illness Narrative Gynecology Oncology Progress Note Candis Johnson is a 68 y.o. female HD#3, POD#1 who transferred from [place] due to concern for vaginal mass Patient [...] Johnson 68 y.o. 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 Bilateral enlargement. Grade 2 diastolic dysfunction. - Repeat EKG 11/09: Normal sinus rhythm, anterior infarct age undetermined (old, seen on EKG on 08/15/23) - Nitroglycerin ordered PRN - Ranolazine not ordered inpatient - Continue to monitor Anemia - Admit Hgb @ [place] 6.5 - S/p 2u pRBC Hgb 8.9 - Admit Hgb at [facility] 8.7 - Hgb /; 9.0 - [...] insulin requirement Schizophrenia - Per nursing at [facility] and patient's son, patient has significant PMH of schizophrenia - Home meds include Topomax and Lumaterprone (not on formulary at [facility]. Consulted with IP pharmacy and they recommended [...] y.o. female HD#2, POD#0 who transferred from [place] due to concern for vaginal mass Patient [...] Johnson 68 y.o. 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 Consulted with IP pharmacy and they recommended [...] a 68 y.o. female HD#2 transferred from [place] due to concern for vaginal mass Patient [...] Johnson 68 y.o. 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 Bilateral enlargement. Grade 2 diastolic dysfunction. - Repeat EKG 11/09: Normal sinus rhythm, anterior infarct age undetermined (old, seen on EKG on 08/15/23) - Nitroglycerin ordered PRN - Ranolazine not ordered inpatient - Continue to monitor Anemia - Admit Hgb @ [place] 6.5 - S/p 2u pRBC Hgb 8.9 - Admit Hgb at [facility] 8.7 - AM CBC pending - [...] insulin requirement Schizophrenia - Per nursing at [facility] and patient's son, patient has significant PMH of schizophrenia - Home meds include Topomax and Lumaterprone (not on formulary at [facility]. Consulted with IP pharmacy and they recommended [...] as the patient's health care power of estate attorney. Landen has been advised of the [...] Evaluation: A cardiology evaluation was completed at [facility] prior to her transfer. Records have been reviewed. Lab results have been reviewed Proceed with surgical evaluation as planned Jayashree Avilez MD Gynecologic Oncology Obstetric/Gynecology Resident Interval Note At time of rounding, patient in MRI suite obtaining MRI pelvis. Dr. Avilez, SUPERVISOR DRY CLEANING/ONC attending, present at bedside to discuss evaluation and management plans with patient's son, Landen. Landen is the patient's power of estate attorney and medical decision maker. Paperwork uploaded [...] ms QTc Calculation (Bazett) 410 ms P [place] 40 degrees R [place] 6 degrees T [place] 20 degrees EKG 12 Lead Collection Time: 11/10/23 4:32 AM Result Value Ref Range Ventricular Rate 65 BPM Atrial Rate 65 BPM P-R Interval 172 ms QRS Duration 86 ms Q-T Interval 406 ms QTc Calculation (Bazett) 422 ms P [place] 42 degrees R [place] 7 degrees T [place] 19 degrees Comprehensive Metabolic Panel w/ [...] Sample Expiration 11/13/2023,2359 Arm Band Number BE [id number] ABO/Rh O POSITIVE Antibody Screen NEGATIVE Lipid [...] 65 - 105 mg/dL Annabelle Moss MD NUMERICAL CONTROL LATHE OPERATOR Resident, PGY2 [place], [place] 11/10/2023, 5:14 PM Attending Physician Statement [...] the resident. Jayashree Avilez MD Gynecologic Oncology SLEEVE SEPARATOR ALL NOTES Facility/Department: [address] MED SURG CLINICAL BEDSIDE SWALLOW EVALUATION NAME: Candis Johnson : 1955 ADMISSION DATE: 11/10/2023 ADMITTING DIAGNOSIS: has Vaginal mass on their problem list. Date of Eval: 11/10/2023 Evaluating Therapist: JODIE Damon Current Diet level: Current Diet : NPO Current Liquid Diet : NPO Primary Complaint: Candis Johnson is a 68 y.o. female presents to [facility] as a direct transfer from [facility] for concern for vaginal cancer. All the information is derived from a paper chart from [facility]. We do not have access to [...] to RN. Dysphagia Diagnosis: Swallow function appears WF Dysphagia Outcome Severity Scale: Level 7: Normal in all situations Treatment Plan Requires SLEEVE SEPARATOR Intervention: Yes 1-2X D/C Recommendations: Ongoing speech [...] Patient Education Response: Verbalizes understanding Therapy Time [id number] JODIE Damon 11/10/2023 11:10 AM Unable to complete admission assessment. Patient has impaired hearing. documented in this encounter [facility] 10-06-2023 Note Cardiology Clinic No te Chief Complaint: preop risk stratification HPI: PMHx: Candis Johnson is a 68 y.o. female With no reported cardiac history who presents to cardiology clinic at the request of her NUMERICAL CONTROL LATHE OPERATOR doctor for perioperative restratification prior to D&C and LEEP procedure. Of note: Patient is deaf. 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 She does her best to communicate by lipreading. She is accompanied by her auto transport driver today, who assists in communication. Today, [...] right-sided pressures (51 mmHg) and diastolic dysfunction. ---- 10/06/23 She is having vaginal bleeding daily [...] a past medical history of Diabetes mellitus ([facility]). Surgical History She has no [...] test 09/09/2023 N (more content not included)... [facility] 10-06-2023 Note Patient here for 2 w sitka follow up SOB, atypical chest pain, and [...] All other systems reviewed and are negative. [facility] 09-23-2023 Note Concerns: Not much s tates some swelling in legs and some back back, chest pain seems to be getting better [facility] 09-23-2023 Note Cardiology Clinic No te Chief Complaint: preop risk stratification HPI: Candis Johnson is a 68 y.o. female With no reported cardiac history who presents to cardiology clinic at the request of her NUMERICAL CONTROL LATHE OPERATOR doctor for perioperative restratification prior to D&C and LEEP procedure. Of note: Patient is deaf. 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 She does her best to communicate by lipreading. She is accompanied by her auto transport driver today, who assists in communication. Today, [...] a past medical history of Diabetes mellitus ([facility]). Surgical History She has no [...] -Further recommendations regardi (more content not included)... [facility] 08-26-2023 Note Cardiology Clinic No te Chief Complaint: preop risk stratification HPI: Candis Johnson is a 68 y.o. female With no reported cardiac history who presents to cardiology clinic at the request of her NUMERICAL CONTROL LATHE OPERATOR doctor for perioperative restratification prior to D&C and LEEP procedure. Of note: Patient is deaf. 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 She does her best to communicate by lipreading. She is accompanied by her auto transport driver today, who assists in communication. As per patient and her auto transport driver, patient denies any cardiac history. She denies any prior history of heart failure, CAD, PCI, or [place]. She does report occasional chest pain. Chest [...] a past medical history of Diabetes mellitus ([facility]). Surgical History She has no [...] HLD -Optimize med (more content not included)... [facility] 08-26-2023 Note New patient here to establish care. Ref from Dr. Crespo for surgery clearance prior to D&C and LEEP procedure. This is scheduled for 08/31 at [facility] per patient. She had labs and EKG last week. Says she gets intermittent chest pain and SOB w/ exertion. Review of Systems HENT: Positive for hearing loss. Cardiovascular: Positive for chest pain (intermittent) and dyspnea on exertion (intermittent). All other systems reviewed and are negative. [facility] 08-04-2023 Evaluation + Plan note Diagnostic Tests PendingUrine Cytology ([facility]) 08/04/23 [facility] 08-03-2023 Hospital Discharg e instructions Patient Education [...] including vitamins, herbs, eye drops, creams, and tgyc-omu-nebijfy medicines. Any problems you or family members [...] health care provider tells you to. Taking mmxf-pow-pegygdr medicines, vitamins, herbs, and supplements. General instructions [...] provider. Document Revised: 10/22/2022 Document Reviewed: 10/22/2022 [employer] Patient Education 2022 [employer]. 08/03/2023 09:37:21 Hematuria, Adult Hematuria, Adult Hematuria [...] Follow these instructions at home: Medicines Take bvuc-lmt-wijvduo and prescription medicines only as told by [...] or the blood stops without treatment. Take ncni-xon-fvadkbv and prescription medicines only as told by your health care provider. Drink enough fluid to keep your urine pale yellow. This information is not intended to replace advice given to you by your health care provider. Make sure you discuss any questions you have with your health care provider. Document Revised: 02/25/2021 Document Reviewed: 02/25/2021 [employer] Patient Education 2022 [employer]. Follow Up Care 07/13/2023 11:34:42 With:Marcelino GALLARDO, Pamela Fam URL, URO Address: When: Unknown Comments:Schedule Cysto, Rt ureteroscopy, possible biopsy, and Rt stent placement [facility] Evaluation + Plan note No data available for this section [facility] Evaluation note Diagnosis Vaginal mass- Primary Other specified symptom associated with female genital organs Bleeding from the genitourinary system Other specified disorders of urinary tract documented in this encounter [facility] note* Diagnosis High grade squamous intraepithelial lesion (HGSIL), grade 3 SUDHA, on biopsy of cervix- Primary documented in this encounter [facility] note* Diagnosis 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) Procedures NM PET/CT SKULL-THIGH INITIAL PET IMAGING CT ATTENUATION SKULL BASE MID-THIGH El Ahmadi MD [address] [place] [address] [place] [address] Molecular & Functional Imaging [address] [place] [address] Referral ID Status Reason Start Date Expiration Date Visits Requested Visits Authorized [id number] Pending Review Auto-Generat ed Referral 11/25/2023 12/24/2024 1 1 [facility] Summary Purpose Family History No Family History [...] Inactivated Comments Full Code 11/10/2023 4:03 AM Reason for Referral Specialty Diagnoses / Procedures Referred By Luis hernandez Referred To Contact MR IMAGING Diagnoses 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) Procedures MRI FEMALE PELVIS WO/W IVCON MRI PELVIS W/O & W/CONTRAST MATERIAL El Ahmadi MD [address] [place] [address] [place] [address] Mr Imaging [facility] Referral ID Status Reason Start Date Expiration Date Visits Requested Visits Authorized [id number] Pending Review Auto-Generat ed Referral 01/16/2024 12/27/2024 1 1 Specialty Diagnoses / Procedures Referred By Luis t Referred To Contact Radiation Oncology Diagnoses 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 Relationship Specialty Start Date End Date Ander Langley DO [address] [place] [phone] PCP - General Internal Medicine 11/10/23 Reason for Visit (unrecogniz ed section and content) Specialty Diagnoses / Procedures Referred By Luis hernandez Referred To Contact Diagnoses Vaginal mass vaginal cancer, anemia bleeding Jayashree Avilez MD [facility] [address] [address] [facility] [address] [place] [address] Referral ID Status Reason Start Date Expiration Date Visits Re quested Visits Authorized [id number] 1 1 Reason Comments Patient Education Reason Comments Orders Patient Update Reason Comments Patient Update Scheduled Active and Recently Administ ered Medications (unrecognized section and content) Medication Order 11/10/2023 11/11/2023 11/12/2023 acarbose (PRECOSE) tablet 100 mg 100 mg, Oral, 2 times daily, First dose on Rosina 11/10/23 at 1000, Until Discontinued 1118 (Given - Provider: Radha Cadet RN)6309 (Given - Provider: Sally Garcia RN) 0855 (Held - Provider: Snehal Chahal RN - Reason: Pt NPO)1624 (SEP Hold - Provider: [facility] Autohold - Reason: Unreviewed Transfer Orders)193 (MAR Unhold - Provider: Marysol Head RN)1955 (Given - Provider: Marysol Head RN) 0805 (Given - Provider: Janis Schwarz, PARAG)2100 (Due) famotidine (PEPCID) 40 mg in sodium [...] parameters not met)1624 (MAR Hold - Provider: [facility] Aut[employer] - Reason: Unreviewed Transfer Orders)1700 (Automatically Held - Provider: Tiffany Autohold)193 (SEP Unhold - Provider: Marysol Head RN) 0916 [...] 10 mg, Oral, NIGHTLY, First dose on Rosina 11/10/23 at 2100, Until Discontinued 2034 (Given - Provider: Sally Garcia RN) 1623 (SEP Hold - Provider: Tiffany Autohold - Reason: Unreviewed Transfer Orders)1931 (MAR Unhold - Provider: Marysol Head RN)1955 (Given - Provider: Marysol Head RN) 2099 (Due) sacubitril-valsartan (ENTRESTO) 24-26 MG per tablet 1 tablet 1 tablet, Oral, 2 TIMES DAILY, First dose on Tue11/10/23 at 1030, Until Discontinued, Please hold if Systolic BP <120 or Heart rate <60 111 (Not Given - Provider: Radha Cadet RN - Reason: Order parameters not met)2007 (Not Given - Provider: Sally Garcia RN - Reason: Order parameters not met) 0855 (Given - Provider: Snehal Chahal RN)1623 (MAR Hold - Provider: Tiffany Autohold - Reason: Unreviewed Transfer Orders)1931 (MAR Unhold - Provider: Marysol Head RN)1954 (Given - Provider: Marysol Head RN) 0805 (Given - Provider: Janis Schwarz RN)2099 (Due) senna (SENOKOT) tablet 17.2 mg 17.2 mg (2 tablet), Oral, 2 TIMES DAILY, First dose on Rosina 11/10/23 at 1000, Until Discontinued 1118 (Given - Provider: Radha Cadet RN)2034 (Given - Provider: Sally Garcia RN) 0855 (Given - Provider: Snehal Chahal RN)1623 (MAR Hold - Provider: Mar Autohold - Reason: Unreviewed Transfer Orders)193 (MAR Unhold - Provider: Marysol Head, PARAG)1955 (Given - Provider: Marysol Head RN) 0804 (Given - Provider: Janis Schwarz RN)2100 [...] RN) 0855 (Given - Provider: Snehal Chahal RN)1624 (MAR Hold - Provider: [facility] Aut[employer] - Reason: Unreviewed Transfer Orders)1931 (MAR Unhold - Provider: Mayrsol Head RN) 0805 (Given - Provider: Janis [...] Garcia RN)1600 (NoRateChange - Provider: CLEMENTINE Caballero CRNA)162 ([facility] Hold - Provider: Tiffany Autohold - Reason: Unreviewed Transfer Orders)1634 (Paused - Provider: CLEMENTINE Caballero CRNA - Comment: Switch to gravity)1635 (Restarted - Provider: CLEMENTINE Caballero CRNA)1723 (New Bag - Provider: CLEMENTINE Caballero CRNA)1931 ([facility] Unhold - Provider: Marysol Head RN)2001 (Rate/Dose [...] same rate as the piggyback being infused. 1623 ([facility] Hold - Provider: Tiffany Autohold - Reason: Unreviewed Transfer Orders)1931 ([facility] Unhold - Provider: Marysol Head RN) acetaminophen (TYLENOL) tablet 1,000 mg 1,000 mg, Oral, EVERY 6 HOURS PRN, Starting on Rosina 11/10/23 at 0934, Until Discontinued, Pain Mild (1-3) 1623 ([facility] Hold - Provider: Tiffany Autohold - Reason: Unreviewed Transfer Orders)1931 ([facility] Unhold - Provider: Marysol Head RN) albuterol sulfate HFA (PROVENTIL;VENTOLIN;PROAIR) 108 (90 Base) MCG/ACT inhaler 2 puff 2 puff, Inhalation, EVERY 6 HOURS PRN, Starting on Rosina 11/10/23 at 0937, Until Discontinued, Wheezing, Initiate RT Bronchodilator Protocol: Yes - Inpatient Protocol 1623 ([facility] Hold - Provider: [facility] Autoh[employer] - Reason: Unreviewed Transfer Orders)1931 ([facility] Unhold - Provider: Marysol Head RN) dextrose [...] 60 minutes, discontinue dextrose 10% infusion. 1623 ([facility] Hold - Provider: [facility] [employer] - Reason: Unreviewed Transfer Orders)1931 ([facility] Unhold - Provider: Marysol Head RN) dextrose [...] at 100 mL/hour and notify provider. 1623 ([facility] Hold - Provider: [facility] Aut[employer] - Reason: Unreviewed Transfer Orders)1931 ([facility] Unhold - Provider: Marysol Head RN) dextrose [...] at 100 mL/hour and notify provider. 1623 ([facility] Hold - Provider: [facility] Aut[employer] - Reason: Unreviewed Transfer Orders)1931 ([facility] Unhold - Provider: Marysol Head RN) fluticasone (FLONASE) 50 MCG/ACT nasal spray 2 spray 2 spray, Each Nostril, DAILY PRN, Starting on Rosina 11/10/23 at 0938, Until Discontinued, Rhinitis 1623 ([facility] Hold - Provider: [facility] [employer] - Reason: Unreviewed Transfer Orders)1931 ([facility] Unhold - Provider: Marysol Head RN) gadoteridol [...] minutes x 2 and notify provider. 1623 ([facility] Hold - Provider: [facility] Aut[employer] - Reason: Unreviewed Transfer Orders)1931 ([facility] Unhold - Provider: Marysol Head RN) glucose [...] LESS THAN 70 mg/dL, notify provider. 1623 ([facility] Hold - Provider: [facility] Aut[employer] - Reason: Unreviewed Transfer Orders)1931 ([facility] Unhold - Provider: Marysol Head RN) HYDROmorphone (DILAUDID) injection 0.5 mg (CANCELED) 0.5 mg, IntraVENous, EVERY 5 MIN PRN, 2 doses, Starting on Tue11/11/23 at 1703, Until Tue11/11/23 at 1922, Pain Severe (7-10), For Phase I. If Phase II oral narcotics have been administered in the last 60 minutes, do not administer IV narcotics unless specifically approved by provider., PACU only 1828 (Given - Provider: Vy Agee RN) ipratropium 0.5 mg-albuterol 2.5 mg (DUONEB) nebulizer solution 1 Dose 1 Dose, Inhalation, EVERY 4 HOURS PRN, Starting on Rosina 11/10/23 at 0939, Until Discontinued, Shortness of Breath, Initiate RT Bronchodilator Protocol: Yes - Inpatient Protocol 1623 ([facility] Hold - Provider: Tiffany Autohold - Reason: Unreviewed Transfer Orders)1931 ([facility] Unhold - Provider: Marysol Head RN) nitroGLYCERIN (NITROSTAT) SL tablet 0.4 mg 0.4 mg, SubLINGual, EVERY 5 MIN PRN, Starting on Rosina 11/10/23 at 0943, Until Discontinued, Chest pain, Place 1 tablet under tongue upon chest pain, wait 5 minutes and may repeat up to 3 doses in 15 minutes. Do not crush or break. Substituted for nitroGLYCERIN translingual spray (NITROLINGUAL).. 1623 ([facility] Hold - Provider: Tiffany Autohold - Reason: Unreviewed Transfer Orders)1931 ([facility] Unhold - Provider: Marysol Head RN) ondansetron (ZOFRAN) injection 4 mg(Linked Group 2) 4 mg, IntraVENous, EVERY 6 HOURS PRN, Starting on Rosina 11/10/23 at 0353, Until Discontinued, Nausea, Vomiting, Administer if oral route cannot be used. 1623 ([facility] Hold - Provider: Tiffany Autohold - Reason: Unreviewed Transfer Orders)1931 ([facility] Unhold - Provider: Marysol Head RN) ondansetron (ZOFRAN-ODT) disintegrating tablet 4 mg(Linked Group 2) 4 mg, Oral, EVERY 8 HOURS PRN, Starting on Rosina 11/10/23 at 0353, Until Discontinued, Nausea, Vomiting 1623 ([facility] Hold - Provider: [facility] Autohold - Reason: Unreviewed Transfer Orders)1931 ([facility] Unhold - Provider: Marysol Head, PARAG) sod chloride IRR soln 0.9 % irrigation (CANCELED) CONTINUOUS PRN, Starting on Tue11/11/23 at 1649, Intra-op 1649 (New Bag - Provider: Jayashree Avilez MD - Comment: POURED TO STERILE BACK TABLE USED PRN) sodium chloride flush 0.9 % injection 5-40 mL 5-40 mL, IntraVENous, PRN, Starting on Tue11/10/23 at 0353, Until Discontinued, Line Care, After [...] Midline or Central Line = 20 mL/lumen 1833 (Given - Provider: Tiarra Quinn)2003 (Given - Provider: Sally Garcia RN) 162 ([facility] Hold - Provider: Tiffany Autohold - Reason: Unreviewed Transfer Orders)1931 ([facility] Unhold - Provider: Marysol Head RN)1955 (Given - Provider: Marysol Head RN) Linked Groups Order Group 1: dextrose bolus 10% 125 mLJump to med 125 mL, IntraVENous, at 937.5 mL/hr, Administer over 8 Minutes, PRN, Other, Blood glucose 40 - 69 mg/dL and patient NOT ALERT or NPO, Starting on Tue11/10/23 at 0428
Repeat blood glucose in 15 [...] or prosecute any alcohol or drug abuse patient.[facility] Shaw[facility] the event this information is protected by the Federal Confidentiality of Alcohol and Drug Abuse Patient Records regulations: The Federal rules restrict any use of the information to criminally investigate or prosecute any alcohol or drug abuse patient.[facility] ShawIn the event this information is protected by the Federal Confidentiality of Alcohol and Drug Abuse Patient Records regulations: The Federal rules restrict any use of the information to criminally investigate or prosecute any alcohol or drug abuse patient.[facility] ShawIn the event this information is protected by the Federal Confidentiality of Alcohol and Drug Abuse Patient Records regulations: The Federal rules restrict any use of the information to criminally investigate or prosecute any alcohol or drug abuse patient.[facility] ShawIn the event this information is protected by the Federal Confidentiality of Alcohol and Drug Abuse Patient Records regulations: The Federal rules restrict any use of the information to criminally investigate or prosecute any alcohol or drug abuse patient.[facility] ShawIn the event this information is protected by the Federal Confidentiality of Alcohol and Drug Abuse Patient Records regulations: The Federal rules restrict any use of the information to criminally investigate or prosecute any alcohol or drug abuse patient.[facility] FOR RECORDS PERTAINING TO PATIENTS WHO ARE [...] BE BASED ON THE PRIMARY CLINICAL RECORDS. [facility], [facility]. provides no warranty or guarantee of the accuracy or completeness of information in this document.
--- NOTE | 2023-12-10 18:56 | ED_ITS ---
HPI HPI - General Adult General Chief complaint: Syncope Stated complaint: LOSS OF CONCIOUSNESS Time Seen by Provider: 12/10/23 18:23 Source: family Mode of arrival: Wheelchair Limitations: language barrier History of Present Illness HPI narrative: Patient is a 68-year-old female presents to the ER with her family for evaluatEvaluation of syncopal episode. The patient was out to eat with her family when she reportedly slumped over for approximately 30 seconds in a seated position. Patient had no complaints prior, she is very hard of hearing. Son identifies as her medical power of supervisor asbestos removal at the bedside. She has been residing at an assisted living facility for the last 7 or 8 years. Patient recently was seen for suspected GI bleeding, unfortunately diagnosed with stage IV cervical cancer, and has recently had blood transfusions due to vaginal bleeding and met with Just regarding treatments, they did not recommend radiation and they did not recommend chemo and feels she deserves more palliative care. The family has not yet discussed her care plan with her family doctor but I did discuss potential DNR orders given there palliative decisions. Patient Has had minimal bleeding recently per family. Related Data Home Medications ?Medication ?Instructions ?Recorded ?Confirmed acarbose 100 mg tablet 100 mg PO BID 08/15/23 11/08/23 acetaminophen 500 mg capsule 1,000 mg PO QPM 08/15/23 11/08/23 albuterol sulfate 90 mcg/actuation 2 inh inhalation Q6H PRN shortness 08/15/23 11/08/23 aerosol inhaler (ProAir HFA) of breath or wheezing atorvastatin 40 mg tablet 40 mg PO DAILY 08/15/23 11/08/23 cholecalciferol (vitamin D3) 125 125 mcg PO DAILY 08/15/23 11/09/23 mcg (5,000 unit) capsule famotidine 40 mg tablet 40 mg PO DAILY 08/15/23 11/08/23 ferrous sulfate 325 mg (65 mg 325 mg PO DAILY 08/15/23 11/08/23 iron) tablet,delayed release fluticasone propionate 50 2 spray intranasal DAILY PRN 08/15/23 11/08/23 mcg/actuation nasal allergy symptoms spray,suspension (Allergy Relief (fluticasone)) ipratropium bromide 0.02 % 2.5 ml inhalation Q4H PRN 08/15/23 11/08/23 solution for inhalation shortness of breath or wheezing lumateperone 42 mg capsule 42 mg PO DAILY 08/15/23 11/08/23 (Caplyta) magnesium hydroxide 400 mg/5 mL 2,400 mg PO DAILY PRN constipation 08/15/23 11/08/23 oral suspension (Milk of Magnesia) metformin 1,000 mg tablet 1,000 mg PO BID 08/15/23 11/08/23 montelukast 10 mg tablet 10 mg PO DAILY 08/15/23 11/08/23 nitroglycerin 400 mcg/spray 1 spray sublingual Q5M PRN chest 08/15/23 11/08/23 translingual pain ranolazine 500 mg tablet,extended 500 mg PO BID 08/15/23 11/08/23 release,12 hr sacubitril 24 mg-valsartan 26 mg 1 tab PO BID 08/15/23 11/08/23 tablet (Entresto) topiramate 25 mg tablet (Topamax) 25 mg PO DAILY 08/15/23 11/08/23 trazodone 50 mg tablet 25 mg PO DAILY 08/15/23 11/08/23 dulaglutide 0.75 mg/0.5 mL 0.75 mg subcut QWEEK 11/04/23 11/08/23 subcutaneous [facility] ondansetron HCl 4 mg tablet 4 mg PO Q6H PRN nausea and vomiting 11/04/23 11/08/23 aspirin 81 mg tablet,delayed 81 mg PO DAILY 11/09/23 11/09/23 release cyanocobalamin (vitamin B-12) 1,000 mcg PO DAILY 11/09/23 11/09/23 1,000 mcg tablet medroxyprogesterone 10 mg tablet 10 mg PO DAILY 11/09/23 11/09/23 Allergies Allergy/AdvReac Type Severity Reaction Status Date / Time No Known Drug Allergies Allergy Verified 11/08/23 19:42 Opioid HPI Opioid Management Most Recent Opioid Data: Last Pain Scale 4 11/08/23 23:10 Last ED Pain Assessment 12/10/23 19:05 Last ORT Total Score 0 11/08/23 22:09 Last ORT Risk Category Low Risk 11/08/23 22:09 Review of Systems ROS Narrative Review of system comes from patient's son, patient has a history of dementia. Patient did note chest pain, but does not elaborate on symptoms such as when they started or radiation. Status of ROS unobtainable due to mental status Constitutional Denies: fever, chills or change in weight Cardiovascular Reports: chest pain Gastrointestinal Denies: abdominal pain or nausea Genitourinary Reports: vaginal bleeding Musculoskeletal Denies: back pain or neck pain Psychiatric Denies: anxiety [facility] Medical History (Updated 12/10/23 @ 21:02 by DANIAL Cottrell) Postmenopausal bleeding ?N95.0 - Postmenopausal bleeding (ICD-10) CAD (coronary artery disease) ?I25.10 - Atherosclerotic heart disease of [place] coronary artery without angina pectoris (ICD-10) (HFpEF) heart failure with preserved ejection fraction ?I50.30 - Unspecified diastolic (congestive) heart failure (ICD-10) Heart palpitations ?R00.2 - Palpitations (ICD-10) Diastolic dysfunction ?I51.89 - Other ill-defined heart diseases (ICD-10) Lower extremity edema ?R60.0 - Localized edema (ICD-10) Atypical chest pain ?R07.89 - Other chest pain (ICD-10) Dyspnea ?R06.00 - Dyspnea, unspecified (ICD-10) Poor speech ?R47.9 - Unspecified speech disturbances (ICD-10) High cholesterol ?E78.00 - Pure hypercholesterolemia, unspecified (ICD-10) Diabetes ?E11.9 - Type 2 diabetes mellitus without complications (ICD-10) Schizophrenia ?F20.9 - Schizophrenia, unspecified (ICD-10) COPD (chronic obstructive pulmonary disease) ?J44.9 - Chronic obstructive pulmonary disease, unspecified (ICD-10) Psychological disorder ?F99 - Mental disorder, not otherwise specified (ICD-10) Deaf ?H91.90 - Unspecified hearing loss, unspecified ear (ICD-10) Hypertension ?I10 - Essential (primary) hypertension (ICD-10) Incomplete bladder emptying ?R33.9 - Retention of urine, unspecified (ICD-10) Asthma ?J45.909 - Unspecified asthma, uncomplicated (ICD-10) Hydroureter ?N13.4 - Hydroureter (ICD-10) 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 - Other and unspecified doubling of uterus (ICD-10) Thickened endometrium ?R93.89 - Abnormal findings on diagnostic imaging of other specified body structures (ICD-10) 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 ?R87.613 - High grade squamous intraepithelial lesion on cytologic smear of cervix (HGSIL) (ICD-10) Surgical History (Updated 08/15/23 @ 10:19 by Nathalie Hudson NP) History of appendectomy ?Z90.49 - Acquired absence of other specified parts of digestive tract (ICD- 10) H/O section ?Z98.891 - History of uterine scar from previous surgery (ICD-10) Family History (Updated 08/15/23 @ 10:19 by Nathalie Hudson NP) Other Family history of coronary artery disease Family history of hypertension Family history of stroke Kidney disease Social History (Updated 08/15/23 @ 11:14 by Nathalie Hudson NP) Within the past year, how often did you have a drink containing alcohol: never Score interpretation: A score less than 3 is consistent with normal alcohol consumption. Smoking status: Never smoker Exam Narrative Exam Narrative: Nurses notes and vital signs reviewed and patient is not hypoxic. General: The patient appears well and in no apparent distress. Patient is resting comfortably on cart. Skin: Warm, dry, no pallor noted. Head: Normocephalic, atraumatic Neck: Supple, trachea mid-line, no tenderness, no lymphadenopathy Eye: Pupils are equal, round and reactive to light, EOMI Ears, Nose, Mouth, and Throat: TM are clear, normal light reflex, oral mucosa is moist, no posterior oropharynx erythema or hypertrophy, uvula is mid-line Cardiovascular: Regular Rate and Rhythm Respiratory: Patient is in no distress, no accessory muscle use, lungs are clear to auscultation, no wheezing, rales or rhonchi. Chest Wall: no tenderness Back: non-tender, no CVA tenderness Musculoskeletal: normal ROM, no tenderness, no swelling GI: Normal bowel sounds, no tenderness to palpation, no masses appreciated. No rebound, guarding, or rigidity noted. Neurological: A&O person and family. Psychiatric: Cooperative Constitutional Vital Signs, click to edit/add: Last Vital Signs Temp 98.0 F 12/10/23 18:35 Pulse 68 12/10/23 20:38 Resp 22 H 12/10/23 20:38 BP 134/69 12/10/23 20:38 Pulse Ox 96 12/10/23 20:38 O2 Del Method Room Air 12/10/23 20:38 Course Vital Signs Vital signs: Vital Signs Temperature 98.0 F 12/10/23 18:35 Pulse Rate 68 12/10/23 18:35 Respiratory Rate 25 H 12/10/23 18:35 Blood Pressure 109/55 12/10/23 18:35 Pulse Oximetry 97 12/10/23 18:35 Oxygen Delivery Method Room Air 12/10/23 18:35 Temperature 98.0 F 12/10/23 18:35 Pulse Rate 68 12/10/23 20:38 Respiratory Rate 22 H 12/10/23 20:38 Blood Pressure 134/69 12/10/23 20:38 Pulse Oximetry 96 12/10/23 20:38 Oxygen Delivery Method Room Air 12/10/23 20:38 Medical Decision Making MDM Narrative Medical decision making narrative: Presents with recent complicated diagnosis of stage IV cervical cancer. Patient's family has met with specialist do not recommend chemo or radiation and suggest palliative care. The patient has dementia. She is currently a full code and the son who is medical power of supervisor asbestos removal is struggling with the thought of the DNR care. We discussed her syncopal episode prior to arrival, arrhythmia during her stay here without loss of consciousness. She has not had any further episodes during her stay. Patient undergoing CTA of the chest to rule out PE as her troponin was within normal limits. Patient Is a poor historian as she is very hard of hearing. Lab Data Labs: Lab Results 12/10/23 12/10/23 12/10/23 Range/Units 18:44 19:03 21:10 WBC 7.5 (4.0-11.0) 10^3/uL RBC 3.23 L (4.20-5.40) 10^6/uL Hgb 8.8 L (12.0-16.0) g/dL Hct 29.5 L (36.0-48.0) % MCV 91.3 (81.0-99.0) fL MCH 27.2 (26.7-34.0) pg MCHC 29.8 L (29.9-35.2) g/dL RDW 17.2 H (11.0-15.0) % Plt Count 334 (150-450) 10^3/uL MPV 8.9 L (9.5-13.5) fL Neut % (Auto) 66.1 (43.0-75.0) % Lymph % (Auto) 14.5 L (20.5-60.0) % [place] % (Auto) 12.8 H (1.7-12.0) % Eos % (Auto) 5.7 (0.9-7.0) % Baso % (Auto) 0.4 (0.2-2.0) % Neut # (Auto) 5.0 (1.4-6.5) 10^3/uL Lymph # (Auto) 1.1 L (1.2-3.8) 10^3/uL [place] # (Auto) 1.0 H (0.3-0.8) 10^3/uL Eos # (Auto) 0.4 (0.0-0.7) 10^3/uL Baso # (Auto) 0.0 (0.0-0.1) 10^3/uL Abs Immat Gran (auto) 0.04 H (0.00-0.03) 10^3/uL Imm/Tot Granulo (auto) 0.5 (0.0-0.5) % PT 10.4 (9.0-11.6) sec INR 0.98 APTT 25.9 (22.3-36.2) sec D-Dimer 0.74 H* (<=0.59) mg/L FEU Sodium 132 L (136-145) mmol/L Potassium 4.1 (3.5-5.1) mmol/L Chloride 99 (98-107) mmol/L Carbon Dioxide 21.8 (21.0-32.0) mmol/L Anion Gap 15.3 BUN 29.0 H (7.0-18.0) mg/dL Creatinine 1.37 H (0.55-1.02) mg/dL Est GFR ( Amer) 46 L (>=60) Est GFR (Non-Af Amer) 38 L (>=60) BUN/Creatinine Ratio 21.2 Glucose 110 H (74-106) mg/dL Calcium 8.7 (8.5-10.1) mg/dL Magnesium 2.0 (1.8-2.4) mg/dL Total Bilirubin 0.2 (0.2-1.0) mg/dL AST 13 L (15-37) U/L ALT 19 (14-59) U/L Alkaline Phosphatase 105 (46-116) U/L Troponin I High Sens <4.0 L <4.0 L (4.0-51.3) pg/mL Total Protein 6.0 L (6.4-8.2) g/dL Albumin 3.0 L (3.4-5.0) g/dL Globulin 3.0 g/dL Albumin/Globulin Ratio 1.0 Blood Type O Positive Antibody Screen Negative ECG Data Attestation: I personally reviewed and interpreted this ECG as follows: Interpretation: EKG interpretation: Emergency Department physician interpretation, normal sinus rhythm low voltage. , no ectopy, no ST segment elevation, normal axis. At 1842 Patient went from sinus rhythm to uniform junctional rhythm, Which initially thought it was v-tach on the monitor. Discharge Plan Discharge Chief Complaint: Syncope Clinical Impression: Syncope, Cardiac arrhythmia Prescriptions / Home Meds: No Action acarbose 100 mg tablet 100 mg PO BID acetaminophen 500 mg capsule 1,000 mg PO QPM atorvastatin 40 mg tablet 40 mg PO DAILY Caplyta 42 mg capsule 42 mg PO DAILY Entresto 24-26 mg tablet 1 tab PO BID famotidine 40 mg tablet 40 mg PO DAILY ferrous sulfate 325 mg (65 mg iron) tablet,delayed release (DR/EC) 325 mg PO DAILY metformin 1,000 mg tablet 1,000 mg PO BID montelukast 10 mg tablet 10 mg PO DAILY ranolazine 500 mg tablet extended release 12 hr 500 mg PO BID topiramate [Topamax] 25 mg tablet 25 mg PO DAILY trazodone 50 mg tablet 25 mg PO DAILY cholecalciferol (vitamin D3) 125 mcg (5,000 unit) capsule 125 mcg PO DAILY albuterol sulfate [ProAir HFA] 90 mcg/actuation HFA aerosol inhaler 2 inh inhalation Q6H PRN (Reason: shortness of breath or wheezing) fluticasone propionate [Allergy Relief (fluticasone)] 50 mcg/actuation spray,suspension 2 spray intranasal DAILY PRN (Reason: allergy symptoms) Rx Instructions: administer into each nostril ipratropium bromide 0.02 % solution 2.5 ml inhalation Q4H PRN (Reason: shortness of breath or wheezing) magnesium hydroxide [Milk of Magnesia] 400 mg/5 mL suspension 2,400 mg PO DAILY PRN (Reason: constipation) nitroglycerin 400 mcg/spray spray,non-aerosol 1 spray sublingual Q5M PRN (Reason: chest pain) Rx Instructions: do not exceed 3 doses per episode Trulicity 0.75 mg/0.5 mL pen injector 0.75 mg SUBCUT QWEEK ondansetron HCl 4 mg tablet 4 mg PO Q6H PRN (Reason: nausea and vomiting) cyanocobalamin (vitamin B-12) 1,000 mcg tablet 1,000 mcg PO DAILY medroxyprogesterone 10 mg tablet 10 mg PO DAILY aspirin 81 mg tablet,delayed release (DR/EC) 81 mg PO DAILY Print Language: [place] Referrals: Physician,Non-Staff, MD [Primary Care Provider] - 1 week
[2023-12-10 19:15] LABS: Basophils Percent Auto 0.4 % (0.2-2.0); Eosinophils Absolute Auto 0.4 10^3/uL (0.0-0.7); Eosinophils Percent Auto 5.7 % (0.9-7.0); Hematocrit 29.5 % (36.0-48.0); Hemoglobin 8.8 g/dL (12.0-16.0); Immature Granulocytes Abs Auto 0.04 10^3/uL (0.00-0.03); Immature Granulocytes Pct Auto 0.5 % (0.0-0.5); Lymphocytes Absolute Auto 1.1 10^3/uL (1.2-3.8); Lymphocytes Percent Auto 14.5 % (20.5-60.0); Mean Corpuscular HGB Conc 29.8 g/dL (29.9-35.2); Mean Corpuscular Hemoglobin 27.2 pg (26.7-34.0); Mean Corpuscular Volume 91.3 fL (81.0-99.0); Mean Platelet Volume 8.9 fL (9.5-13.5); Monocytes Percent Auto 12.8 % (1.7-12.0); Neutrophils Percent Auto 66.1 % (43.0-75.0); Platelet Count 334 10^3/uL (150-450); Red Blood Count 3.23 10^6/uL (4.20-5.40); Red Cell Distribution Width 17.2 % (11.0-15.0); White Blood Count 7.5 10^3/uL (4.0-11.0)
[2023-12-10 19:28] LABS: INR 0.98; Partial Thromboplastin Time 25.9 sec (22.3-36.2); Prothrombin Time 10.4 sec (9.0-11.6)
[2023-12-10 19:30] LABS: D Dimer 0.74 mg/L FEU (<=0.59)
[2023-12-10 19:37] LABS: Troponin I High Sensitivity <4.0 pg/mL (4.0-51.3)
[2023-12-10 19:38] LABS: Alanine Aminotransferase 19 U/L (14-59); Alkaline Phosphatase 105 U/L (46-116); Anion Gap 15.3; Aspartate Amino Transferase 13 U/L (15-37); BUN Creatinine Ratio 21.2; Bilirubin Total 0.2 mg/dL (0.2-1.0); Calcium 8.7 mg/dL (8.5-10.1); Carbon Dioxide 21.8 mmol/L (21.0-32.0); Chloride 99 mmol/L (98-107); Estimated GFR (African America 46 (>=60); Estimated GFR (Non-African Ame 38 (>=60); Glucose 110 mg/dL (74-106); Potassium 4.1 mmol/L (3.5-5.1); Sodium 132 mmol/L (136-145)
--- NOTE | 2023-12-10 19:57 | CT_ITS ---
[address] [address] Patient Name: STEVE JOHNSON MRN: [id number] date: 1955 Sex: F Assigned Patient Location: ER Current Patient Location: Accession/Order Number: [id number] Exam Date: 12/10/2023 20:45 Report Date: 12/10/2023 21:42 At the request of: DAVID FELIPE Procedure: CT angio chest EXAM: CT angio chest HISTORY: r/o PE COMPARISON: Chest x-ray 12/10/2023 TECHNIQUE: Intravenous contrast-enhanced axial CT of the chest was performed in the pulmonary angiographic phase. Coronal and sagittal reformats provided. Maximum intensity projections of the chest were also provided. FINDINGS: Neck/mediastinum: Subcentimeter nodule of the right thyroid lobe measuring 5 mm. A few mildly prominent left supraclavicular lymph nodes are noted some of which appear partially calcified and largest measuring approximately 9 mm in short axis. Left prevascular lymph node conglomeration with several lymph nodes appearing partially calcified and largest measuring up to 11 mm in short axis. Cardiovascular: Normal heart size without pericardial effusion or thickening. Mild to moderate calcific atherosclerosis of the coronary arteries. Ascending thoracic aorta and the main pulmonary artery are normal caliber. No aortic dissection. No central filling defects in the pulmonary arteries. Lungs/pleura/airways: Trachea and mainstem bronchi are clear. No pneumothorax, pleural effusion or consolidation. Dependent changes at the lung bases. No concerning pulmonary nodules. Upper abdomen: Large hiatal hernia. Upper abdomen is otherwise unremarkable. Skeletal/soft tissues: Soft tissues are within normal limits. No acute or aggressive osseous abnormality. CT/CT angio chest IMPRESSION: No pulmonary embolus. No acute cardiopulmonary process. Multiple enlarged partially calcified left prevascular space and left supraclavicular nodes are nonspecific and could reflect sequelae of prior granulomatous disease with neoplastic etiology not excluded. Consider PET/CT for further evaluation. Electronically authenticated by: CECI MCQUEEN Date: 12/10/2023 21:42
[2023-12-10] MEDS: 0.9 % SODIUM CHLORIDE 1,000 ML 999 ML IV (20:31)
[2023-12-10 21:37] LABS: Troponin I High Sensitivity <4.0 pg/mL (4.0-51.3)
--- OUTSIDE RECORDS SUMMARY | 2023-12-10 22:55 | XMS_ITS | CCD ---
Author Organization [facility] Care Team Providers Care Statistical Methods Professor Name Role Phone MARKER, DR SALINAS Consulting [...] 8 hours as needed. 0 05/20/2023 Active [id number] actuat albuterol 0.09 mg/actuat metered dose [...] (ALISSA NASE) 50 mcg/actuation nasal spray 1 [place] once daily. 0 Active furosemide 20 mg [...] times a day. 0 05/15/2023 Active sennosides, nursing home 8.6 mg oral tablet (1 source) Start: [...] source) Long-term current use of aspirin; Translations: [[facility] (current) use of aspirin] Onset: 4 Episodic [...] Range Facility Consultation Noteon 12-02-19 Consultation Note [id number] FF Normal [facility] Orders Onlyon 12-01-2023 Orders Only [id number] Kelby Johnson 1955 F Date Provider Department Center 12/01/2023 [id number], HISTORICAL CARD [facility] Family History Problem Relation Age of Onset Coronary artery disease Mother Cancer Father Diabetes Father Family Status - Relation Status Age at Mother Father Normal [facility] OUTSIDE SURG PATH SLIDE REVI EWon 11-25-2023 CASE REPORT Normal [facility] Comment on above: Order Comment: Speci men Type: FORMALIN-FIXED PARAFFIN-EMBEDDED TISSUE SPECIMEN Ordering Facility: AP Outside Review Address: , , Result Comment: Surg ical Pathology Report Case: [id number] Authorizing Provider: Mariam Mckinley MD Collected: 11/25/2023 02:11 PM Ordering Location: [facility] Received: 11/25/2023 02:12 PM [facility] Pathologist: Ernestina Parada MD Specimen: Slide(s), 5 SLIDES [id number] Performed By: #### L [id number] #### [facility] CLIA [id number] [address] [place] [address] STATES OF [place] DIAGNOSIS COMMENT 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 Normal [facility] Comment on above: Order Comment: Speci men Type: FORMALIN-FIXED PARAFFIN-EMBEDDED TISSUE SPECIMEN Ordering Facility: AP Outside Review Address: , , Performed By: #### L [id number] #### [facility] CLIA [id number] [address] [place] [address] OF [place] FINAL DIAGNOSIS Normal [facility] Comment on above: Order Comment: Speci men Type: FORMALIN-FIXED PARAFFIN-EMBEDDED TISSUE SPECIMEN Ordering Facility: AP Outside Review Address: , , Result Comment: Outs miguel angel case from [place], [place] ([id number], collected 11/11/2023) A. Left cervix, biopsy: - Invasive squamous cell carcinoma, see comment. B. 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 Performed By: #### L [id number] #### [facility] CLIA [id number] [address] [place] [address] OF [facility] FINAL PERFORMING LAB Normal [facility] Comment on above: Order Comment: Speci men Type: FORMALIN-FIXED PARAFFIN-EMBEDDED TISSUE SPECIMEN Ordering Facility: Outside Review Address: , , Result Comment: Diag nostic interpretation performed at [place] [address] CLIA# [id number] Equipment Planner: Navdeep Pickering M.D. Performed By: #### L [id number] #### [facility] CLIA [id number] [address] [place] [address] OF [place] Orders Onlyon 11-21-2023 Orders Only [id number] Kelby Johnson 1955 F Date Provider Department [place] 11/21/2023 MARV CASAREZ CELESTE [facility] Family History Problem Relation Age of Onset Coronary artery disease Mother Cancer Father Diabetes Father Family Status - Relation Status Age at Mother Father Normal [facility] Consultation Noteon 11-14-19 24 Consultation Note [id number] IFF Normal [facility] Glucose,Whole Bloodon 2023 Glucose [Mass/Vol] 124 mg/dL High 65-105 [facility] Glucose [Mass/Vol] 87 mg/dL Normal 65-105 [facility] POC Glucose Fingerstickon Glucose [Mass/Vol] 124 mg/dL High 65 - 105 mg/dL [facility] Interpretation and review of laboratory results Abnormal [facility] Glucose [Mass/Vol] 87 mg/dL 65 - 105 mg/dL [facility] CBC with Auto Differentialon 11-11-2023 Basophils (Bld) [#/Vol] 0.03 10*3/uL [facility] Basophils/100 WBC (Bld) 0 % 0 - 2 % [facility] Eosinophils (Bld) [#/Vol] 0.31 10*3/uL [facility] Eosinophils/100 WBC (Bld) 5 % High 1 - 4 % [facility] Erythrocyte distribution width (RBC) [Ratio] 16.1 % High 11.8 - 14.4 % [facility] Hematocrit (Bld) [Volume fraction] 31.6 % Low 36.3 - 47.1 % [facility] Hemoglobin (Bld) [Mass/Vol] 9.0 g/dL Low 11.9 - 15.1 g/dL [facility] Immature granulocytes (Bld) [#/Vol] 0.04 10*3/uL [facility] Immature granulocytes/100 WBC (Bld) 1 % High 0 [facility] Interpretation and review of laboratory results Abnormal [facility] Lymphocytes/100 WBC (Bld) 18 % Low 24 - 43 % [facility] Lymphocytes/100 WBC (Bld) 1.19 % [facility] MCH (RBC) [Entitic mass] 27.4 pg 25.2 - 33.5 pg [facility] MCHC (RBC) [Mass/Vol] 28.5 g/dL 28.4 - 34.8 g/dL [facility] MCV (RBC) [Entitic vol] 96.0 fL 82.6 - 102.9 fL [facility] Monocytes/100 WBC (Bld) 14 % High 3 - 12 % [facility] Monocytes/100 WBC (Bld) 0.91 % [facility] Neutrophils/100 WBC (Bld) 62 % 36 - 65 % [facility] Nucleated RBC/100 WBC (Bld) [Ratio] 0.0 % 0.0 per 100 WBC [facility] Platelet mean volume (Bld) [Entitic vol] 8.6 fL 8.1 - 13.5 fL [facility] Platelets (Bld) [#/Vol] 413 10*3/uL [facility] RBC (Bld) [#/Vol] 3.29 10*6/uL Low 3.95 - 5.1 1 m/uL [facility] RBC (Bld) [#/Vol] ANISOCYTOSIS PRESENT [facility] Segmented neutrophils/100 WBC (Bld) 4.27 % [facility] WBC other (Bld) [#/Vol] 6.8 [facility] CBC with Diffon 11-11-2023 Abs. Basophil 0.03 k/uL Normal 0.00-0.20 [facility] Comment on above: Performed By: #### C DP, CP #### [facility] [address] [place] [address] Director Of Strategic Marketing: Guillaume Roman MD Abs.Imm.Granulocyte 0.04 k/uL Normal 0.00-0.30 [facility] Comment on above: Performed By: #### C DP, CP #### [place] [address] Director Of Strategic Marketing: Guillaume Roman MD Abs.Neutrophil (Seg) 4.27 k/uL Normal 1.50-8.10 [facility] Comment on above: Performed By: #### C DP, CP #### [facility] [address] [place] [address] Director Of Strategic Marketing: Guillaume Roman MD Basophils/100 WBC (Bld) 0 % Normal 0-2 [facility] Comment on above: Performed By: #### C DP, CP #### [facility] [address] [place] [address] Director Of Strategic Marketing: Guillaume Roman MD Eosinophils (Bld) [#/Vol] 0.31 10*3/uL Normal 0.00-0.44 [facility] Comment on above: Performed By: #### C DP, CP #### [facility] [address] [place] [address] Director Of Strategic Marketing: Guillaume Roman MD Eosinophils/100 WBC (Bld) 5 % High 1-4 [facility] Comment on above: Performed By: #### C DP, CP #### [address] [address] Director Of Strategic Marketing: Guillaume Roman MD Erythrocyte distribution width (RBC) [Ratio] 16.1 % High 11.8-14.4 [facility] Comment on above: Performed By: #### C DP, CP #### [address] [address] Director Of Strategic Marketing: Guillaume Roman MD Hematocrit (Bld) [Volume fraction] 31.6 % Low 36.3-47.1 [facility] Comment on above: Performed By: #### C DP, CP #### [address] [address] Director Of Strategic Marketing: Guillaume Roman MD Hemoglobin (Bld) [Mass/Vol] 9.0 g/dL Low 11.9-15.1 [facility] Comment on above: Performed By: #### C DP, CP #### [address] [address] Director Of Strategic Marketing: Guillaume Roman MD Immature granulocytes/100 WBC (Bld) 1 % High 0 [facility] Comment on above: Performed By: #### C DP, CP #### [address] [address] Director Of Strategic Marketing: Guillaume Roman MD Lymphocytes (Bld) [#/Vol] 1.19 10*3/uL Normal 1.10-3.70 [facility] Comment on above: Performed By: #### C DP, CP #### [address] [address] Director Of Strategic Marketing: Guillaume Roman MD Lymphocytes/100 WBC (Bld) 18 % Low 24-43 [facility] Comment on above: Performed By: #### C DP, CP #### [address] [address] Director Of Strategic Marketing: Guillaume Roman MD MCH (RBC) [Entitic mass] 27.4 pg Normal 25.2-33.5 [facility] Comment on above: Performed By: #### C DP, CP #### [address] [address] Director Of Strategic Marketing: Guillaume Roman MD MCHC (RBC) [Mass/Vol] 28.5 g/dL Normal 28.4-34.8 [facility] Comment on above: Performed By: #### C DP, CP #### [address] [address] Director Of Strategic Marketing: Guillaume Roman MD MCV (RBC) [Entitic vol] 96.0 fL Normal 82.6-102.9 [facility] Comment on above: Performed By: #### C DP, CP #### [address] [address] Director Of Strategic Marketing: Guillaume Roman MD Monocytes (Bld) [#/Vol] 0.91 10*3/uL Normal 0.10-1.20 [facility] Comment on above: Performed By: #### C DP, CP #### [address] [address] Director Of Strategic Marketing: Guillaume Roman MD Monocytes/100 WBC (Bld) 14 % High 3-12 [facility] Comment on above: Performed By: #### C DP, CP #### [address] [address] Director Of Strategic Marketing: Guillaume Roman MD Neutrophil (Seg) 62 % Normal 36-65 [facility] Comment on above: Performed By: #### C DP, CP #### [address] [address] Director Of Strategic Marketing: Guillaume Roman MD NRBC Automated 0.0 per 100 WBC Normal 0.0 [facility] Comment on above: Performed By: #### C DP, CP #### [address] [address] Director Of Strategic Marketing: Guillaume Roman MD Platelet mean volume (Bld) [Entitic vol] 8.6 fL Normal 8.1-13.5 [facility] Comment on above: Performed By: #### C DP, CP #### [address] [address] Director Of Strategic Marketing: Guillaume Roman MD Platelets (Bld) [#/Vol] 413 10*3/uL Normal 138-453 [facility] Comment on above: Performed By: #### C DP, CP #### [address] [address] Director Of Strategic Marketing: Guillaume Roman MD RBC (Bld) [#/Vol] 3.29 10*6/uL Low 3.95-5.11 [facility] Comment on above: Performed By: #### C DP, CP #### [address] [address] Director Of Strategic Marketing: Guillaume Roman MD RBC morphology finding Nom (Bld) ANISOCYTOSIS PRESENT Normal [facility] Comment on above: Performed By: #### C DP, CP #### [address] [address] Director Of Strategic Marketing: Guillaume Roman MD WBC (Bld) [#/Vol] 6.8 10*3/uL Normal 3.5-11.3 [facility] Comment on above: Performed By: #### C DP, CP #### [address] [address] Director Of Strategic Marketing: Guillaume Roman MD Comp Metabolic Profon 2023 Albumin [Mass/Vol] 3.6 g/dL Normal 3.5-5.2 [facility] Comment on above: Performed By: #### C DP, CP #### [address] [address] Director Of Strategic Marketing: Guillaume Roman MD Albumin/Glob Ratio 2.0 Normal 1.0-2.5 [facility] Comment on above: Performed By: #### C DP, CP #### [address] [address] Director Of Strategic Marketing: Guillaume Roman MD Alkaline Phos 93 U/L Normal 35-104 [facility] Comment on above: Performed By: #### C DP, CP #### [address] [address] Director Of Strategic Marketing: Guillaume Roman MD ALT [Catalytic activity/Vol] 14 U/L Normal 10-35 [facility] Comment on above: Performed By: #### C DP, CP #### [address] [address] Director Of Strategic Marketing: Guilluame Roman MD Anion gap [Moles/Vol] 10 mmol/L Normal 9-16 [facility] Comment on above: Performed By: #### C DP, CP #### [address] [address] Director Of Strategic Marketing: Guillaume Roman MD AST [Catalytic activity/Vol] 33 U/L Normal 10-35 [facility] Comment on above: Performed By: #### C DP, CP #### [address] [address] Director Of Strategic Marketing: Guillaume Roman MD Bilirubin [Mass/Vol] 0.3 mg/dL Normal 0.00-1.20 [facility] Comment on above: Performed By: #### C DP, CP #### [address] [address] Director Of Strategic Marketing: Guillaume Roman MD Calcium [Mass/Vol] 8.8 mg/dL Normal 8.6-10.4 [facility] Comment on above: Performed By: #### C DP, CP #### [address] [address] Director Of Strategic Marketing: Guillaume Roman MD Chloride [Moles/Vol] 109 mmol/L High 98-107 [facility] Comment on above: Performed By: #### C DP, CP #### [address] [address] Director Of Strategic Marketing: Guillaume Roman MD CO2 [Moles/Vol] 19 mmol/L Low 20-31 [facility] Comment on above: Performed By: #### C DP, CP #### [address] [address] Director Of Strategic Marketing: Guillaume Roman MD Creatinine [Mass/Vol] 1.0 mg/dL High 0.50-0.90 [facility] Comment on above: Performed By: #### C DP, CP #### [place] [address] Director Of Strategic Marketing: Guillaume Roman MD GFR/1.73 sq M.predicted among non-blacks MDRD (S/P/Bld) [Vol rate/Area] 59 mL/min/{1.73_m2} Low >60 [facility] Comment on above: Result Comment: These [...] Performed By: #### C DP, CP #### [facility] [address] [place] [address] Director Of Strategic Marketing: Guillaume Roman MD Glucose [Mass/Vol] 97 mg/dL Normal 74-99 [facility] Comment on above: Performed By: #### C DP, CP #### [facility] [address] [place] [address] Director Of Strategic Marketing: Guillaume Roman MD Potassium [Moles/Vol] 4.3 mmol/L Normal 3.7-5.3 [facility] Comment on above: Result Comment: SPEC IMEN SLIGHTLY HEMOLYZED, RESULTS MAY BE ADVERSELY AFFECTED. Performed By: #### C DP, CP #### [address] [address] Director Of Strategic Marketing: Guillaume Roman MD Protein [Mass/Vol] 5.4 g/dL Low 6.6-8.7 [facility] Comment on above: Performed By: #### C DP, CP #### [facility] [address] [place] [address] Director Of Strategic Marketing: Guillaume Roman MD Sodium [Moles/Vol] 138 mmol/L Normal 136-145 [facility] Comment on above: Performed By: #### C DP, CP #### [facility] [address] [place] [address] Director Of Strategic Marketing: Guillaume Roman MD Urea nitrogen [Mass/Vol] 11 mg/dL Normal 8-23 [facility] Comment on above: Performed By: #### C DP, CP #### [facility] [address] [place] [address] Director Of Strategic Marketing: Guillaume Roman MD Comprehensive Metabolic Pane [facility] 11-11-2023 Albumin [Mass/Vol] 3.6 g/dL 3.5 - 5.2 g/dL [facility] Albumin/Globulin [Mass ratio] 2.0 {ratio} 1.0 - 2.5 [facility] ALP [Catalytic activity/Vol] 93 U/L 35 - 104 U/L [facility] ALT [Catalytic activity/Vol] 14 U/L 10 - 35 U/L [facility] Anion gap [Moles/Vol] 10 mmol/L 9 - 16 mmol/L [facility] AST [Catalytic activity/Vol] 33 U/L 10 - 35 U/L [facility] Bilirubin [Mass/Vol] 0.3 mg/dL 0.00 - 1.20 mg/dL [facility] Calcium [Mass/Vol] 8.8 mg/dL 8.6 - 10. 4 mg/dL [facility] Chloride [Moles/Vol] 109 mmol/L High 98 - 10 7 mmol/L [facility] CO2 [Moles/Vol] 19 mmol/L Low 20 - 31 mmol/L [facility] Creatinine [Mass/Vol] 1.0 mg/dL High 0.50 - 0.90 mg/dL [facility] Est, Glom Filt Rate 59 Low - PINF [facility] Comment on above: These results are not [...] [Mass/Vol] 97 mg/dL 74 - 99 mg/dL [facility] Interpretation and review of laboratory results Abnormal [facility] Potassium [Moles/Vol] 4.3 mmol/L 3.7 - 5.3 mmol/L [facility] Comment on above: SPECIMEN SLIGHTLY HE MOLYZED, RESULTS MAY BE ADVERSELY AFFECTED. Protein [Mass/Vol] 5.4 g/dL Low 6.6 - 8.7 g/dL [facility] Sodium [Moles/Vol] 138 mmol/L 136 - 145 mmol/L [facility] Urea nitrogen [Mass/Vol] 11 mg/dL 8 - 23 mg/dL [facility] [employer] [facility] Consultation Noteon 11-11-19 24 Consultation Note [id number] IFF Normal [facility] EKG 12 LeadOrdered By: Butch Nascimento on 11-11-2023 Atrial Rate 62 BPM [facility] Work Phone: P Kermit 40 degrees [facility] [employer] [facility] Work Phone: P-R Interval 168 ms [employer] [facility] Work Phone: Q-T Interval 404 ms [employer] [facility] Work Phone: QTc Calculation (Bazett) 410 ms [employer] [facility] Work Phone: R Kermit 6 degrees [employer] [facility] Work Phone: T Kermit 20 degrees [employer] [facility] Work Phone: Ventricular Rate 62 BPM [facility] Work Phone: EKG 12 Leadon 11-11-2023 Normal sinus rhythm Cannot rule out Anterior infarct , age undetermined Abnormal ECG No previous ECGs available [facility] Wily Davies MD / Butch Nascimento MD - 11/11/2023 Normal sinus rhythm Cannot rule out Anterior infarct , age undetermined Abnormal ECG No previous ECGs available [facility] Atrial Rate 65 BPM [facility] P Kermit 42 degrees [facility] P-R Interval 172 ms [facility] Q-T Interval 406 ms [facility] QTc Calculation (Bazett) 422 ms [facility] R Kermit 7 degrees [facility] T Kermit 19 degrees [facility] Ventricular Rate 65 BPM [facility] Normal sinus rhythm Normal ECG When compared with ECG of 10-NOV-2023 04:31, No significant change was found [facility] STWily Walter MD / Butch Nascimento MD - 11/11/2023 Normal sinus rhythm Normal ECG When compared with ECG of 10-NOV-2023 04:31, No significant change was found [facility] Glucose,Whole Bloodon 2023 Glucose [Mass/Vol] 120 mg/dL High 65-105 [facility] Glucose [Mass/Vol] 92 mg/dL Normal 65-105 [facility] Glucose [Mass/Vol] 83 mg/dL Normal 65-105 [facility] Glucose [Mass/Vol] 83 mg/dL Normal 65-105 [facility] Glucose [Mass/Vol] 88 mg/dL Normal 65-105 [facility] Glucose [Mass/Vol] 104 mg/dL Normal 65-105 [facility] MRI PELVIS W WO CONTRASTon 0 [...] Frank Deleon MD 11/10/23 Final result Normal [facility] No Panel InformationOrdered By: Butch Nascimento on 11-11-2023 QRS Duration 86 ms [facility] [employer] [employer] Work Phone: [facility] [employer] Work Phone: POC Glucose Fingerstickon Glucose [Mass/Vol] 120 mg/dL High 65 - 105 mg/dL [facility] Interpretation and review of laboratory results Abnormal [facility] Glucose [Mass/Vol] 92 mg/dL 65 - 105 mg/dL [facility] Glucose [Mass/Vol] 83 mg/dL 65 - 105 mg/dL [facility] Glucose [Mass/Vol] 83 mg/dL 65 - 105 mg/dL [facility] Glucose [Mass/Vol] 88 mg/dL 65 - 105 mg/dL [facility] RAD - MRI Reporton RAD - MRI Report [id number] IFF Normal [facility] Surgical Pathology Reporton 11-11-2023 Surgical Pathology Report (NOTE) [id number] [facility] N-1-1 [facility] ANATOMIC PATHOLOGY [address] [place] [address]. [place], [place] [address] SURGICAL PATHOLOGY CONSULTATION [facility] [id number] Path Number: [id number] Collected: 11/11/2023 Received: 11/14/2023 Reported: 11/17/2023 08:30 [...] JAYASHREE AVILEZ, [address] WAS SENT TO [facility] FOR PD-L1 EXPRESSION TESTING. THE RESULTS ARE FOLLOWS: PD-L1 EXPRESSION: POSITIVE TUMOR PROPORTION SCORE (TPS): 15% COMBINED POSITIVE SCORE (CPS): 17 PLEASE SEE [facility]' COMPLETE REPORT ([id number]) FOR DETAILS. Candy Banegas Clinical Information Pre-Op [...] squamous carcinoma. Control reacts as expected. Normal [facility] BLOOD BANK SPECIMENon 2023 [facility] CBC with Auto Differentialon 05-02-2024 Basophils (Bld) [#/Vol] [facility] Basophils/100 WBC (Bld) 0 % 0 - 2 % [facility] Eosinophils (Bld) [#/Vol] 0.03 10*3/uL [facility] Eosinophils/100 WBC (Bld) 0 % Low 1 - 4 % [facility] Erythrocyte distribution width (RBC) [Ratio] 15.9 % High 11.8 - 14.4 % [facility] Hematocrit (Bld) [Volume fraction] 29.5 % Low 36.3 - 47.1 % [facility] Hemoglobin (Bld) [Mass/Vol] 8.7 g/dL Low 11.9 - 15.1 g/dL [facility] Immature granulocytes (Bld) [#/Vol] 0.06 10*3/uL [facility] Immature granulocytes/100 WBC (Bld) 1 % High 0 [facility] Interpretation and review of laboratory results Abnormal [facility] Lymphocytes/100 WBC (Bld) 10 % Low 24 - 43 % [facility] Lymphocytes/100 WBC (Bld) 0.86 % Low [facility] MCH (RBC) [Entitic mass] 26.9 pg 25.2 - 33.5 pg [facility] MCHC (RBC) [Mass/Vol] 29.5 g/dL 28.4 - 34.8 g/dL [facility] MCV (RBC) [Entitic vol] 91.3 fL 82.6 - 102.9 fL [facility] Monocytes/100 WBC (Bld) 9 % 3 - 12 % [facility] Monocytes/100 WBC (Bld) 0.72 % [facility] Neutrophils/100 WBC (Bld) 80 % High 36 - 65 % [facility] Nucleated RBC/100 WBC (Bld) [Ratio] 0.0 % 0.0 per 100 WBC [facility] Platelet mean volume (Bld) [Entitic vol] 8.5 fL 8.1 - 13.5 fL [facility] Platelets (Bld) [#/Vol] 389 10*3/uL [facility] RBC (Bld) [#/Vol] 3.23 10*6/uL Low 3.95 - 5.1 1 m/uL [facility] RBC (Bld) [#/Vol] ANISOCYTOSIS PRESENT [facility] Segmented neutrophils/100 WBC (Bld) 6.82 % [facility] WBC other (Bld) [#/Vol] 8.5 [facility] CBC with Diffon 11-10-2023 Abs. Basophil <0.03 Normal 0.00-0.20 [facility] Comment on above: Performed By: #### G LYHGB, CDP #### [facility] [address] [place] [address] Director Of Strategic Marketing: Guillaume Roman MD Abs.Imm.Granulocyte 0.06 k/uL Normal 0.00-0.30 [facility] Comment on above: Performed By: #### G LYHGB, CDP #### [facility] [address] [place] [address] Director Of Strategic Marketing: Guillaume Roman MD Abs.Neutrophil (Seg) 6.82 k/uL Normal 1.50-8.10 [facility] Comment on above: Performed By: #### G LYHGB, CDP #### [facility] [address] [place] [id number] Director Of Strategic Marketing: Guillaume Roman MD Basophils/100 WBC (Bld) 0 % Normal 0-2 [facility] Comment on above: Performed By: #### G LYHGB, CDP #### [facility] Risk I/O [address] [place] [address] Director Of Strategic Marketing: Guillaume Roman MD Eosinophils (Bld) [#/Vol] 0.03 10*3/uL Normal 0.00-0.44 [facility] Comment on above: Performed By: #### G LYHGB, CDP #### [facility] I/O [address] [place] [address] Director Of Strategic Marketing: Guillaume Roman MD Eosinophils/100 WBC (Bld) 0 % Low 1-4 [facility] Comment on above: Performed By: #### G LYHGB, CDP #### [facility] Risk I/O [address] [place] [address] Director Of Strategic Marketing: Guillaume Roman MD Erythrocyte distribution width (RBC) [Ratio] 15.9 % High 11.8-14.4 [facility] Comment on above: Performed By: #### G LYHGB, CDP #### [facility] [address] [place] [address] Director Of Strategic Marketing: Guillaume Roman MD Hematocrit (Bld) [Volume fraction] 29.5 % Low 36.3-47.1 [facility] Comment on above: Performed By: #### G LYHGB, CDP #### [facility] I/O [address] [place] [address] Director Of Strategic Marketing: Guillaume Roman MD Hemoglobin (Bld) [Mass/Vol] 8.7 g/dL Low 11.9-15.1 [facility] Comment on above: Performed By: #### G LYHGB, CDP #### [facility] I/O [address] [place] [address] Director Of Strategic Marketing: Guillaume Roman MD Immature granulocytes/100 WBC (Bld) 1 % High 0 [facility] Comment on above: Performed By: #### G LYHGB, CDP #### [facility] I/O [address] [place] [address] Director Of Strategic Marketing: Guillaume Roman MD Lymphocytes (Bld) [#/Vol] 0.86 10*3/uL Low 1.10-3.70 [facility] Comment on above: Performed By: #### G LYHGB, CDP #### [facility] I/O [address] [place] [address] Director Of Strategic Marketing: Guillaume Roman MD Lymphocytes/100 WBC (Bld) 10 % Low 24-43 [facility] Comment on above: Performed By: #### G LYHGB, CDP #### [address] [address] Director Of Strategic Marketing: Guillaume Roman MD MCH (RBC) [Entitic mass] 26.9 pg Normal 25.2-33.5 [facility] Comment on above: Performed By: #### G LYHGB, CDP #### [address] [address] Director Of Strategic Marketing: Guillaume Roman MD MCHC (RBC) [Mass/Vol] 29.5 g/dL Normal 28.4-34.8 [facility] Comment on above: Performed By: #### G LYHGB, CDP #### [address] [address] Director Of Strategic Marketing: Guillaume Roman MD MCV (RBC) [Entitic vol] 91.3 fL Normal 82.6-102.9 [facility] Comment on above: Performed By: #### G LYHGB, CDP #### [address] [address] Director Of Strategic Marketing: Guillaume Roman MD Monocytes (Bld) [#/Vol] 0.72 10*3/uL Normal 0.10-1.20 [facility] Comment on above: Performed By: #### G LYHGB, CDP #### [address] [address] Director Of Strategic Marketing: Guillaume Roman MD Monocytes/100 WBC (Bld) 9 % Normal 3-12 [facility] Comment on above: Performed By: #### G LYHGB, CDP #### [address] [address] Director Of Strategic Marketing: Guillaume Roman MD Neutrophil (Seg) 80 % High 36-65 [facility] Comment on above: Performed By: #### G LYHGB, CDP #### [address] [address] Director Of Strategic Marketing: Guillaume Roman MD NRBC Automated 0.0 per 100 WBC Normal 0.0 [facility] Comment on above: Performed By: #### G LYHGB, CDP #### [address] [address] Director Of Strategic Marketing: Guillaume Roman MD Platelet mean volume (Bld) [Entitic vol] 8.5 fL Normal 8.1-13.5 [facility] Comment on above: Performed By: #### G LYHGB, CDP #### [address] [address] Director Of Strategic Marketing: Guillaume Roman MD Platelets (Bld) [#/Vol] 389 10*3/uL Normal 138-453 [facility] Comment on above: Performed By: #### G LYHGB, CDP #### [address] [address] Director Of Strategic Marketing: Guillaume Roman MD RBC (Bld) [#/Vol] 3.23 10*6/uL Low 3.95-5.11 [facility] Comment on above: Performed By: #### G LYHGB, CDP #### [address] [address] Director Of Strategic Marketing: Guillaume Roman MD RBC morphology finding Nom (Bld) ANISOCYTOSIS PRESENT Normal [facility] Comment on above: Performed By: #### G LYHGB, CDP #### [address] [address] Director Of Strategic Marketing: Guillaume Roman MD WBC (Bld) [#/Vol] 8.5 10*3/uL Normal 3.5-11.3 [facility] Comment on above: Performed By: #### G LYHGB, CDP #### [address] [place] [address] Director Of Strategic Marketing: Guillaume Roman MD CT HEAD WO CONTRASTon [...] shift. No abnormal extra-axial fluid collection. The iwley-white differentiation is maintained without evidence of an [...] True Mccall MD 11/10/23 Final result Normal [facility] CT Head WO contraston 2023 No [...] of the visualized skull or soft tissues. [facility] True Valentine MD - 11/10/2023 EXAMINATION: CT [...] soft tissues. IMPRESSION: No acute intracranial abnormality. [facility] Radiology Study observation (narrative) [facility] CT Head WO contrastOrdered B y: True Mccall on 11-10-2023 [facility] Work Phone: Comp Metabolic Pr/rfx MGon 0 11-10-2023 Albumin [Mass/Vol] 3.5 g/dL Normal 3.5-5.2 [facility] Comment on above: Performed By: #### C DP, CP #### [facility] [address] [place] [address] [id number] Director Of Strategic Marketing: Guillaume Roman MD Albumin/Glob Ratio 2.0 Normal 1.0-2.5 [facility] Comment on above: Performed By: #### C DP, CP #### [facility] [address] [place] [address] [phone] Director Of Strategic Marketing: Guillaume Roman MD Alkaline Phos 85 U/L Normal 35-104 [facility] Comment on above: Performed By: #### C DP, CP #### [address] [address] Director Of Strategic Marketing: Guillaume Roman MD ALT [Catalytic activity/Vol] 9 U/L Low 10-35 [facility] Comment on above: Performed By: #### C DP, CP #### [address] [address] Director Of Strategic Marketing: Guillaume Roman MD Anion gap [Moles/Vol] 12 mmol/L Normal 9-16 [facility] Comment on above: Performed By: #### C DP, CP #### [address] [address] Director Of Strategic Marketing: Guillaume Roman MD AST [Catalytic activity/Vol] 20 U/L Normal 10-35 [facility] Comment on above: Performed By: #### C DP, CP #### [address] [address] Director Of Strategic Marketing: Guillaume Roman MD Bilirubin [Mass/Vol] 0.2 mg/dL Normal 0.00-1.20 [facility] Comment on above: Performed By: #### C DP, CP #### [address] [address] Director Of Strategic Marketing: Guillaume Roman MD Calcium [Mass/Vol] 8.4 mg/dL Low 8.6-10.4 [facility] Comment on above: Performed By: #### C DP, CP #### [address] [address] Director Of Strategic Marketing: Giullaume Roman MD Chloride [Moles/Vol] 108 mmol/L High 98-107 [facility] Comment on above: Performed By: #### C DP, CP #### [address] [address] Director Of Strategic Marketing: Guillaume Roman MD CO2 [Moles/Vol] 17 mmol/L Low 20-31 [facility] Comment on above: Performed By: #### C DP, CP #### [address] [phone] Director Of Strategic Marketing: Guillaume Roman MD Creatinine [Mass/Vol] 0.9 mg/dL Normal 0.50-0.90 [facility] Comment on above: Performed By: #### C DP, CP #### [address] [phone] Director Of Strategic Marketing: Guillaume Roman MD GFR/1.73 sq M.predicted among non-blacks MDRD (S/P/Bld) [Vol rate/Area] 66 mL/min/{1.73_m2} Normal >60 [facility] Comment on above: Result Comment: These [...] By: #### C DP, CP #### [address] [phone] Director Of Strategic Marketing: Guillaume Roman MD Glucose [Mass/Vol] 99 mg/dL Normal 74-99 [facility] Comment on above: Performed By: #### C DP, CP #### [address] [phone] Director Of Strategic Marketing: Guillaume Roman MD Potassium [Moles/Vol] 4.5 mmol/L Normal 3.7-5.3 [facility] Comment on above: Result Comment: SPEC IMEN SLIGHTLY HEMOLYZED, RESULTS MAY BE ADVERSELY AFFECTED. Performed By: #### C DP, CP #### [address] [place] [address] Director Of Strategic Marketing: Guillaume Roman MD Protein [Mass/Vol] 5.0 g/dL Low 6.6-8.7 [facility] Comment on above: Performed By: #### C DP, CP #### [facility] [address] [place] [address] Director Of Strategic Marketing: Guillaume Roman MD Sodium [Moles/Vol] 137 mmol/L Normal 136-145 [facility] Comment on above: Performed By: #### C DP, CP #### [facility] [address] [place] [address] Director Of Strategic Marketing: Guillaume Roman MD Urea nitrogen [Mass/Vol] 10 mg/dL Normal 8-23 [facility] Comment on above: Performed By: #### C DP, CP #### [facility] [place] [address] Director Of Strategic Marketing: Guillaume Roman MD Comprehensive Metabolic Pane l w/ Reflex to MGon 11-10-2023 Albumin [Mass/Vol] 3.5 g/dL 3.5 - 5.2 g/dL [facility] Albumin/Globulin [Mass ratio] 2.0 {ratio} 1.0 - 2.5 [facility] ALP [Catalytic activity/Vol] 85 U/L 35 - 104 U/L [facility] ALT [Catalytic activity/Vol] 9 U/L Low 10 - 35 U/L [facility] Anion gap [Moles/Vol] 12 mmol/L 9 - 16 mmol/L [facility] AST [Catalytic activity/Vol] 20 U/L 10 - 35 U/L [facility] Bilirubin [Mass/Vol] 0.2 mg/dL 0.00 - 1.20 mg/dL [facility] Calcium [Mass/Vol] 8.4 mg/dL Low 8.6 - 10. 4 mg/dL [facility] Chloride [Moles/Vol] 108 mmol/L High 98 - 10 7 mmol/L [facility] CO2 [Moles/Vol] 17 mmol/L Low 20 - 31 mmol/L [facility] Creatinine [Mass/Vol] 0.9 mg/dL 0.50 - 0.90 mg/dL [facility] EstAureat Rate 66 - PINF [facility] Comment on above: These results are not [...] [Mass/Vol] 99 mg/dL 74 - 99 mg/dL [facility] Interpretation and review of laboratory results Abnormal [facility] Potassium [Moles/Vol] 4.5 mmol/L 3.7 - 5.3 mmol/L [facility] Comment on above: SPECIMEN SLIGHTLY HE MOLYZED, RESULTS MAY BE ADVERSELY AFFECTED. Protein [Mass/Vol] 5.0 g/dL Low 6.6 - 8.7 g/dL [facility] Sodium [Moles/Vol] 137 mmol/L 136 - 145 mmol/L [facility] Urea nitrogen [Mass/Vol] 10 mg/dL 8 - 23 mg/dL [facility] Glucose,Whole Bloodon 2023 Glucose [Mass/Vol] 86 mg/dL Normal 65-105 [facility] Glucose [Mass/Vol] 89 mg/dL Normal 65-105 [facility] Glucose [Mass/Vol] 91 mg/dL Normal 65-105 [facility] Hemoglobin A1Con 11-10-2023 Glucose [Mass/Vol] 82 mg/dL Normal [facility] Comment on above: Result Comment: The ADA and AACC recommend providing the estimated average glucose result to permit better patient understanding of their HBA1c result. Performed By: #### G DAVID JASSO #### [facility] [place] [address] Director Of Strategic Marketing: Guillaume Roman MD HbA1c (Bld) [Mass fraction] 4.5 % Normal 4.0-6.0 [facility] Comment on above: Performed By: #### G LOUISA, CDP #### [facility] [address] [place], [place] [phone] Director Of Strategic Marketing: Guillaume Roman MD Average glucose Estimated from glycated hemoglobin (Bld) [Mass/Vol] 82 mg/dL [facility] Comment on above: The ADA and AACC rec ommend providing the estimated average glucose result to permit better patient understanding of their HBA1c result. HbA1c (Bld) [Mass fraction] 4.5 % 4.0 - 6.0 % [facility] Lipid Panelon 11-10-2023 Cholesterol [Mass/Vol] 79 mg/dL 0 - 199 mg/dL [facility] Comment on above: Cholesterol Guidelines: <200 Desirable 200-240 Borderline >240 Undesirable Cholesterol in HDL [Mass/Vol] 55 mg/dL 40 - PINF mg/dL [facility] Comment on above: HDL Guidelines: <40 Undesirable 40-59 Borderline >59 Desirable Cholesterol in LDL [Mass/Vol] 11 mg/dL 0 - 100 mg/dL [facility] Comment on above: LDL Guidelines: <100 Desirable 100-129 Near to/above Desirable 130-159 Borderline >159 Undesirable Direct (measured) LDL and calculated LDL are not interchangeable tests. Cholesterol in VLDL [Mass/Vol] 13 mg/dL [facility] Cholesterol.total/Cho lesterol in HDL [Mass ratio] 1.0 {ratio} [facility] Triglyceride [Mass/Vol] 66 mg/dL NINF - 150 mg/dL [facility] Comment on above: Triglyceride Guidelines: <150 Desirable 150-199 Borderline 200-499 High >499 Very high Based on AHA Guidelines for fasting triglyceride, April 2012. Lipid Profileon 11-10-2023 Cholesterol [Mass/Vol] 79 mg/dL Normal 0-199 [facility] Comment on above: Result Comment: Cholesterol Guidelines: <200 Desirable 200-240 Borderline >240 Undesirable Performed By: #### C DP, CP #### [facility] [address] [place], [place] [phone] Director Of Strategic Marketing: Guillaume Roman MD Cholesterol in HDL [Mass/Vol] 55 mg/dL Normal >40 [facility] Comment on above: Result Comment: HDL Guidelines: <40 Undesirable 40-59 Borderline >59 Desirable Performed By: #### C DP, CP #### [address] [address] Director Of Strategic Marketing: Guillaume Roman MD Cholesterol in LDL [Mass/Vol] 11 mg/dL Normal 0-100 [facility] Comment on above: Result Comment: LDL Guidelines: <100 Desirable 100-129 Near to/above Desirable 130-159 Borderline >159 Undesirable Direct (measured) LDL and calculated LDL are not interchangeable tests. Performed By: #### C DP, CP #### [address] [address] Director Of Strategic Marketing: Guillaume Roman MD Cholesterol in VLDL [Mass/Vol] 13 mg/dL Normal [facility] Comment on above: Performed By: #### C DP, CP #### [address] [address] Director Of Strategic Marketing: Guillaume Roman MD Cholesterol.total/Cho lesterol in HDL [Mass ratio] 1.0 {ratio} Normal [facility] Comment on above: Performed By: #### C DP, CP #### [address] [address] Director Of Strategic Marketing: Guillaume Roman MD Triglyceride [Mass/Vol] 66 mg/dL Normal <150 [facility] Comment on above: Result Comment: Triglyceride Guidelines: <150 Desirable 150-199 Borderline 200-499 High >499 Very high Based on AHA Guidelines for fasting triglyceride, April 2012. Performed By: #### C DP, CP #### [address] [address] Director Of Strategic Marketing: Guillaume Roman MD MR Pelvis WO and [...] left greater than right, is likely metastatic. [facility] EXAMINATION: MRI OF THE PELVIS WITHOUT [...] osseous structures are unremarkable. Minimal free fluid. [facility] Frank Deleon MD - 11/10/2023 EXAMINATION: [...] left greater than right, is likely metastatic. [facility] Radiology Study observation (narrative) [facility] MR Pelvis WO and W contrast IVOrdered By: Frank Deleon on 11-10-2023 [facility] Work [facility]: No Panel Informationon 11-09 [facility] POC Glucose Fingerstickon Glucose [Mass/Vol] 104 mg/dL 65 - 105 mg/dL [facility] Glucose [Mass/Vol] 86 mg/dL 65 - 105 mg/dL [facility] Glucose [Mass/Vol] 89 mg/dL 65 - 105 mg/dL [facility] Glucose [Mass/Vol] 91 mg/dL 65 - 105 mg/dL [facility] PREVIOUS SPECIMENon 11-10-19 24 [facility] Specimen Rejectionon 024 Reason for rejection Unable to perform testing: Specimen clotted. Normal [facility] Comment on above: Performed By: #### C DP, CP #### [facility] Risk I/O [address] [place] [address] Director Of Strategic Marketing: Guillaume Roman MD Source of sample .BLOOD Normal [facility] Comment on above: Performed By: #### C DP, CP #### [employer] [address] [place] [address] [phone] Director Of Strategic Marketing: Guillaume Roman MD Test ordered CDP, GLYHGB [facility] Comment on above: Performed By: #### C DP, CP #### [facility] [address] [place] [address] [id number] Director Of Strategic Marketing: Guillaume Roman MD TYPE AND SCREENon 11-10-2023 ABO and Rh group Nom (Bld) Blood group O Rh(D) positive [facility] Arm Band Number [id number] [facility] Blood Bank Sample Expiration 11/13/2023,2359 [facility] Blood group antibodies identified Nom Negative [facility] Type + Screenon 11-10-2023 Type + Screen Sample Expiration 11/13/2023,2359 Arm Band Number [id number] ABO/Rh(D) O POSITIVE Antibody Screen NEGATIVE [facility] Comment on above: Performed By: #### T YS #### [facility] [address] [place] [address] [id number] Director Of Strategic Marketing: Guillaume Roman MD [facility] 0 L Specimen: [id number] Received: 11/10/23 Status: TESS [place] Num: [id number] Spec Type: Surgical Subm Dr: Kobe Crespo Tissues: A Endometrium - Curettings (EMC) Procedures: HE/6, Gross/Micro L4 Age/ Patient Sex Location Account Attending Physician Candis Johnson 68/F [facility] [id number] Kobe Crespo SPEC NUM: [id number] RECD: 11/10/23 STATUS: TESS [place] NUM: [id number] NOY: 11/09/[address]: Kobe Crespo ENTERED: [...] uterus didelphys, vaginal stenosis, cervical stenosis Specimen: [id number] Received: 11/10/23 Status: TESS [place] Num: [id number] Spec Type: Surgical Subm Dr: Kobe Crespo Tissues: A Endometrium - Curettings (EMC) Procedures: , Gross/Micro L4 Patient: RaheelglennCandis [id number] (Continued) Specimen: [id number] Received: 11/10/23 (Continued) Signed (signature on file) Jamarcus Chao MD 11/11/23 1448 Specimen: [id number] Received: 11/10/23 Status: TSES Berry Num: [id number] Spec Type: Surgical Subm Dr: Kobe Crespo Tissues: A Endometrium - Curettings (EMC) Procedures: Ginna PINEDA/Ashley L4 Patient: Candis Johnson [id number] (Continued) Specimen: [id number] Received: 11/10/23 (Continued) CPT Codes 99914 Specimen: [id number] Received: 11/10/23 Status: TESS [place] Num: [id number] Spec Type: Surgical Subm Dr: Kobe Crespo Tissues: A Endometrium - Curettings (EMC) Procedures: /Ginan Sorto/Ashley L4 Patient: Candis Johnson [id number] (Continued) Signed (signature on file) Jamarcus Chao MD 11/11/23 1448 Normal [facility] Reportson 11-08-2023 Lab Reports [id number] IFF Normal [facility] Reportson 11-07-2023 Lab Reports [id number] IFF Normal [facility] Consent for Procedure/Surger yon 10-14-2023 Consent for Procedure/Surgery [id number] IFF Normal [facility] Office Visiton 10-06-2023 Follow-up visit [id number] [place]ennK[place]by 1955 Provider Department Center 10/06/2023 REBECCA VASQUEZ Family History Problem Relation Age of Onset Coronary artery disease Mother Cancer Father Diabetes Father Family Status - Relation Status Age at Mother Father Level of Service:95177 RI OFFICE/OUTPATIENT ESTABLISHED MOD MDM 30 MIN Normal [facility] Office Visiton 09-23-2023 Follow-up visit [id number] RaheelglennKelby 1955 Provider Department Center 09/23/2023 GUERDA RYDER Family History Problem Relation Age of Onset Coronary artery disease Mother Cancer Father Diabetes Father Family Status - Relation Status Age at Mother Father Level of Service:20759 RI OFFICE/OUTPATIENT ESTABLISHED LOW MDM 20 MIN Reason for Visit and Comments: Follow-up [291955] - Concerns: Not much states some swelling in legs and some back back, chest pain seems to be getting better Normal [facility] Office Visiton 08-26-2023 Follow-up visit [id number] RaheelglennKelby 1955 Date Provider Department Center 08/26/2023 GUERDA RYDER Family History Problem Relation Age of Onset Coronary artery disease Mother Cancer Father Diabetes Father Family Status - Relation Status Age at Mother Father Level of Service:31274 RI OFFICE/OUTPATIENT NEW MODERATE MDM 45 MINUTES Normal [facility] Consent for Procedure/Surger yon 08-24-2023 Consent for Procedure/Surgery [id number] IFF Normal [facility] Consent for Procedure/Surger yon 08-09-2023 Consent for Procedure/Surgery [id number]#1.00T IFF Normal [facility] Urine Cytology ([facility])on [...] on: 08/09/2023 11:46:02 Performed By: #### 1 [id number] ####[place] [address] Physician Referralon 024 Physician Referral [id number] [facility] [id number]#1.00 TIFF Normal [facility] Screenson 08-04-2023 Screens [id number] [facility] [id number]#1.00TI FF Normal [facility] Urine Cytology ([facility])on 0 08-04-2023 UC Method of Extraction Voided Normal [facility] Comment on above: Performed By: #### 1 [id number] ####[facility] [address] [place], [place] [id number] Number of Jars 1 Invalid Interpretation Code [facility] Comment on above: Performed By: #### 1 [id number] ####[address] [address] Specimen Urine Normal [facility] Comment on above: Performed By: #### 1 [id number] ####[place] [id number] Type of Service Technical Only Normal [facility] Comment on above: Performed By: #### 1 [id number] ####[facility] [id number] [place] [address] Ambulatory Visit Summaryon 0 08-03-2023 Ambulatory Visit [...] the caus (more content not included)... Normal [facility] Home Recordson 08-03 [facility] Records [id number]#1.00T IFF Normal [facility] Patient Educationon 08-03-19 Patient Education Urology [...] including vitamins, herbs, eye drops, creams, and nrhi-cqx-[id number] medicines. ? Any problems you or family [...] care provider tells you to. ? Taking lxgx-ehd-ycwsccz medicines, vitamins, herbs, and supplements. 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 *possible abnormality of urinary system. Ordered due to rectal bleeding. Pt is a new pt. Never before seen in our office. Pt is hard of hearing she can read lips and she has an nurses aid from her home ([facility]) CT abdomen pelvis wo/w con done @ [facility] on 06/06/23 She tried giving a [...] age Assessment/Plan 68 yo female resident of [facility] here for new patient evaluation of right hydroureteronephrosis. Pt is hard of hearing, can read lips and she has a nurses aid from her home with her. Mother had lung cancer. Denies any other urologic surgeries. 1. Hydroureteronephrosis (N13.30: Unspecified hydronephrosis) CT AP wo/w PO con @ [facility] on 06/06/23 - mod Rt-sided collecting [...] of time. 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 Normal [facility] Comment on above: Result Comment: Elec [...] by: RIVKA FRAZIER Date: 2022-07-05 15:47 Normal [facility] MAMM SCREEN 3D DERRICK CADon 05-14-2022 MAMM SCREEN 3D DERRICK CAD Patient: CANDIS JOHNSON Exam Date: 05/14/2022 : 1955 Gender:F Ordering : DR ANDER LANGLEY D.O. Admission #: [id number] Family : Order #: [id number] CLICK HERE TO VIEW EXAM RADIOLOGY REPORT PROCEDURE: MAMMOGRAM SCREENING 3D BILATERAL CAD COMPARISON: MAMM DERRICK DIAG W CAD, 04/23/2019. MAMM SCREEN 3D DERRICK CAD, 05/08/2021. INDICATIONS: Screening mammography Calculator Name NCI Breast Cancer Risk Assessment Tool 5 Year Breast Cancer Risk 1.40% Lifetime Breast Cancer Risk 4.80% Personal Breast Cancer No Personal Ovarian Cancer No Treatments None Family Cancers None LOCATION: [facility] BREAST COMPOSITION: Almost entirely fatty. FINDINGS: [...] Huddleston MD on 05/14/2022 at 12:49 Normal [facility] BNPon 03-07-2022 Natriuretic peptide B (Bld) [Mass/Vol] 115.0 pg/mL Normal <=900.0 [facility] Comment on above: Performed By: #### B CAFETERIA ASSISTANT, CMP, HSTROPN #### [facility] [address] [place] [address] Dr. Carl Zuñiga CBC AUTO DIFFon 03-07-2022 BASO # 0.0 103/ul Normal 0.0-0.1 [facility] Comment on above: Performed By: #### B CAFETERIA ASSISTANT, CMP, HSTROPN #### [facility] [address] [place] [address] Dr. Carl Zuñiga Basophils/100 WBC (Bld) 0.0 % Critically low 0.2-2.0 [facility] Comment on above: Performed By: #### B CAFETERIA ASSISTANT, CMP, HSTROPN #### [facility] [address] [place] [address] Dr. Carl Zuñiga EO # 0.1 103/ul Normal 0.0-0.7 [facility] Comment on above: Performed By: #### B CAFETERIA ASSISTANT, CMP, HSTROPN #### [facility] [address] [place] [address] Dr. Carl Zuñiga Eosinophils/100 WBC (Bld) 1.0 % Normal 0.9-7.0 [facility] Comment on above: Performed By: #### B CAFETERIA ASSISTANT, CMP, HSTROPN #### [facility] [address] [place] [address] Dr. Carl Zuñiga Erythrocyte distribution width (RBC) [Ratio] 13.7 % Normal 11.0-15.0 [facility] Comment on above: Performed By: #### B CAFETERIA ASSISTANT, CMP, HSTROPN #### [facility] [address] [place] [address] Dr. Carl Zuñiga Hematocrit (Bld) [Volume fraction] 40.8 % Normal 36.0-48.0 [facility] Comment on above: Performed By: #### B CAFETERIA ASSISTANT, CMP, HSTROPN #### [facility] [address] [place] [address] Dr. Carl Zuñiga Hemoglobin (Bld) [Mass/Vol] 13.1 g/dL Normal 12.0-16.0 [facility] Comment on above: Performed By: #### B CAFETERIA ASSISTANT, CMP, HSTROPN #### [facility] [address] [place] [address] Dr. Carl Zuñiga IG # 0.02 10e3/ul Normal 0.00-0.03 [facility] Comment on above: Performed By: #### B CAFETERIA ASSISTANT, CMP, HSTROPN #### [facility] [address] [place] [address] Dr. Carl Zuñiga IG % 0.3 % Normal 0.0-0.5 [facility] Comment on above: Performed By: #### B CAFETERIA ASSISTANT, CMP, HSTROPN #### [facility] [address] [place] [address] Dr. Carl Zuñiga LYMPH # 0.9 103/ul Critically low 1.2-3.8 [facility] Comment on above: Performed By: #### B CAFETERIA ASSISTANT, CMP, HSTROPN #### [facility] [address] [place] [address] Dr. Carl Zuñiga Lymphocytes/100 WBC (Bld) 13.9 % Critically low 20.5-60.0 [facility] Comment on above: Performed By: #### B CAFETERIA ASSISTANT, CMP, HSTROPN #### [facility] [address] [place] [address] Dr. Carl Zuñiga MANUAL DIFF REQ NO Normal [facility] Comment on above: Performed By: #### B CAFETERIA ASSISTANT, CMP, HSTROPN #### [facility] [address] [place] [address] Dr. Carl Zuñiga MCH (RBC) [Entitic mass] 30.8 pg Normal 26.7-34.0 [facility] Comment on above: Performed By: #### B CAFETERIA ASSISTANT, CMP, HSTROPN #### [facility] [address] [place] [address] Dr. Carl Zuñiga MCHC (RBC) [Mass/Vol] 32.1 g/dL Normal 29.9-35.2 [facility] Comment on above: Performed By: #### B CAFETERIA ASSISTANT, CMP, HSTROPN #### [facility] [address] [place] [address] Dr. Carl Zuñiga MCV (RBC) [Entitic vol] 96.0 fL Normal 81.0-99.0 [facility] Comment on above: Performed By: #### B CAFETERIA ASSISTANT, CMP, HSTROPN #### [facility] [address] [place] [address] Dr. Carl Zuñiga MONO # 0.6 103/ul Normal 0.3-0.8 [facility] Comment on above: Performed By: #### B CAFETERIA ASSISTANT, CMP, HSTROPN #### [facility] [address] [place] [address] Dr. Carl Zuñiga Monocytes/100 WBC (Bld) 9.2 % Normal 1.7-12.0 [facility] Comment on above: Performed By: #### B CAFETERIA ASSISTANT, CMP, HSTROPN #### [facility] [address] [place] [address] Dr. Carl Zuñiga NEUT # 5.1 103/ul Normal 1.4-6.5 [facility] Comment on above: Performed By: #### B CAFETERIA ASSISTANT, CMP, HSTROPN #### [facility] [address] [place] [address] Dr. Carl Zuñiga Neutrophils/100 WBC (Bld) 75.6 % Critically high 43.0-75.0 [facility] Comment on above: Performed By: #### B CAFETERIA ASSISTANT, CMP, HSTROPN #### [facility] [address] [place] [address] Dr. Carl Zuñiga Platelet mean volume (Bld) [Entitic vol] 8.5 fL Critically low 9.5-13.5 [facility] Comment on above: Performed By: #### B CAFETERIA ASSISTANT, CMP, HSTROPN #### [facility] [address] [place] [address] Dr. Carl Zuñiga PLT 206 103/ul Normal 150-450 [facility] Comment on above: Performed By: #### B CAFETERIA ASSISTANT, CMP, HSTROPN #### [facility] [address] [place] [address] Dr. Carl Zuñiga RBC 4.25 106/ul Normal 4.20-5.40 [facility] Comment on above: Performed By: #### B CAFETERIA ASSISTANT, CMP, HSTROPN #### [facility] [address] [address] [address] Carl Zuñiga WBC 6.7 103/ul Normal 4.0-11.0 [facility] Comment on above: Performed By: #### B CAFETERIA ASSISTANT, CMP, HSTROPN #### [facility] [address] [place] [address] Dr. Carl Zuñiga D-DIMERon 03-07-2022 D-DIMER <0.19 Normal <=0.59 [facility] Comment on above: Performed By: #### D DIM #### [facility] [address] [place] [address] Dr. Carl Zuñiga D-DIMER COMMENTS SEE BELOW Normal [facility] Comment on above: Result Comment: Incr [...] hospitalization. Performed By: #### D DIM #### [facility] [address] [place] [address] Dr. Carl Zuñiga PROF 14(COMP METB)on 022 Albumin [Mass/Vol] 3.9 g/dL Normal 3.4-5.0 [facility] Comment on above: Performed By: #### B CAFETERIA ASSISTANT, CMP, HSTROPN #### [facility] [address] [place] [address] Dr. Carl Zuñiga Albumin/Globulin [Mass ratio] 1.5 {ratio} Normal [facility] Comment on above: Performed By: #### B CAFETERIA ASSISTANT, CMP, HSTROPN #### [facility] [address] [place] [address] Dr. Carl Zuñiga ALP [Catalytic activity/Vol] 96 U/L Normal 46-116 [facility] Comment on above: Performed By: #### B CAFETERIA ASSISTANT, CMP, HSTROPN #### [facility] [address] [address] [address] Carl Zuñiga ALT [Catalytic activity/Vol] 38 U/L Normal 14-59 [facility] Comment on above: Performed By: #### B CAFETERIA ASSISTANT, CMP, HSTROPN #### [facility] [address] [address] [address] Carl Zuñiga Anion gap [Moles/Vol] 9.8 mmol/L Normal [facility] Comment on above: Performed By: #### B CAFETERIA ASSISTANT, CMP, HSTROPN #### [facility] [address] [place] [address] Dr. Carl Zuñiga AST [Catalytic activity/Vol] 16 U/L Normal 15-37 [facility] Comment on above: Performed By: #### B CAFETERIA ASSISTANT, CMP, HSTROPN #### [facility] [address] [place] [address] Dr. Carl Zuñiga Bilirubin [Mass/Vol] 0.5 mg/dL Normal 0.2-1.0 [facility] Comment on above: Performed By: #### B CAFETERIA ASSISTANT, CMP, HSTROPN #### [facility] [address] [place] [address] Dr. Carl Zuñiga Calcium [Mass/Vol] 9.2 mg/dL Normal 8.5-10.1 [facility] Comment on above: Performed By: #### B CAFETERIA ASSISTANT, CMP, HSTROPN #### [facility] [address] [place] [address] Dr. Carl Zuñiga Chloride [Moles/Vol] 103 mmol/L Normal 98-107 [facility] Comment on above: Performed By: #### B CAFETERIA ASSISTANT, CMP, HSTROPN #### [facility] [address] [place] [address] Dr. Carl Zuñiga CO2 [Moles/Vol] 29.1 mmol/L Normal 21.0-32.0 [facility] Comment on above: Performed By: #### B CAFETERIA ASSISTANT, CMP, HSTROPN #### [facility] [address] [address] [address] Carl Zuñiga Creatinine [Mass/Vol] 0.92 mg/dL Normal 0.55-1.02 [facility] Comment on above: Performed By: #### B CAFETERIA ASSISTANT, CMP, HSTROPN #### [facility] [address] [address] [address] Carl Zuñiga EGFR-AF TONGAN >60 Normal >=60 [facility] Comment on above: Performed By: #### B CAFETERIA ASSISTANT, CMP, HSTROPN #### [facility] [address] [address] [address] Carl Zuñiga EGFR-NON AF TONGAN >60 Normal >=60 [facility] Comment on above: Performed By: #### B CAFETERIA ASSISTANT, CMP, HSTROPN #### [facility] [address] [address] [address] Carl Zuñiga Globulin (S) [Mass/Vol] 2.6 g/dL Normal [facility] Comment on above: Performed By: #### B CAFETERIA ASSISTANT, CMP, HSTROPN #### [facility] [address] [address] [address] Carl Zuñiga Glucose [Mass/Vol] 109 mg/dL Critically high 74-106 [facility] Comment on above: Performed By: #### B CAFETERIA ASSISTANT, CMP, HSTROPN #### [facility] [address] [address] [address] Carl Zuñiga Potassium [Moles/Vol] 3.9 mmol/L Normal 3.5-5.1 [facility] Comment on above: Performed By: #### B CAFETERIA ASSISTANT, CMP, HSTROPN #### [facility] [address] [address] [address] Carl Zuñiga Protein [Mass/Vol] 6.5 g/dL Normal 6.4-8.2 [facility] Comment on above: Performed By: #### B CAFETERIA ASSISTANT, CMP, HSTROPN #### [facility] [address] [address] [address] Carl Zuñiga Sodium [Moles/Vol] 138 mmol/L Normal 136-145 [facility] Comment on above: Performed By: #### B CAFETERIA ASSISTANT, CMP, HSTROPN #### [facility] [address] [address] [address] Carl Zuñiga Urea nitrogen [Mass/Vol] 14.0 mg/dL Normal 7.0-18.0 [facility] Comment on above: Performed By: #### B CAFETERIA ASSISTANT, CMP, HSTROPN #### [facility] [address] [address] [address] Carl Zuñiga Urea nitrogen/Creatinine [Mass ratio] 15.2 mg/mg Normal [facility] Comment on above: Performed By: #### B CAFETERIA ASSISTANT, CMP, HSTROPN #### [facility] [address] [place] [address] Dr. Carl Zuñiga TROPONIN, HIGH SENSITIVITYon 03-07-2022 HSTROP 2.8 pg/mL Critically low 4.0-51.3 [facility] Comment on above: Result Comment: CUT- OFF POINTS HAVE BEEN ESTABLISHED BASED ON THE FOURTH UNIVERSAL DEFINITIONS OF MYOCARDIAL INFARCTION. THE UPPER REFERENCE LIMIT (URL) OF TROPONIN, DEFINED THE 99TH PERCENTILE OF cTnI DISTRIBUTION IN A REFERENCE POPULATION, HAS BEEN CONFIRMED THE DECISION THRESHOLD FOR MA DIAGNOSIS. Performed By: #### B CAFETERIA ASSISTANT, CMP, HSTROPN #### [facility] [address] [place] [address] Dr. Carl Zuñiga XR CHEST 1 Von [...] by: DIANA BREAUX Date: 2022-03-07 10:[address] [facility] [address] CSPINE WO CONon CT CSPINE [...] MARQUES PATEL Date: 2021-07-10 02:49 Normal [facility] CT HEAD WO CONon 07-10-2021 CT HEAD [...] MARQUES PATEL Date: 2021-07-10 02:44 Normal [facility] XR CHEST 1 Von 07-10-2021 XR CHEST [...] MARQUES PATEL Date: 2021-07-10 02:46 Normal [facility] XR PELVIS 1_2 VIEWSon 2020 XR [...] by: MARQUES PATEL Date: 2021-07-10 02:47 Normal [facility] Vital Signs Date Time Vital Sign Value Performing Clinician Faci lity 11-12-2023 11:15-0400 Body temperature 97.9 [degF] Jayashree Avilez MD [facility] Phone[facility] 11-12-2023 11:15-0400 Diastolic blood pressure 58 mm[Hg] Jayashree Avilez MD Work Phone[facility] 11-12-2023 11:15-0400 Heart rate 74 /min Jayashree Avilez MD Work Phone[facility] 11-12-2023 11:15-0400 Respiratory rate 18 /min Jayashree Avilez MD [facility] 11-12-2023 11:15-0400 SaO2% (BldA) [Mass fraction] 96 % Jayashree Avilez MD Work Phone[facility] 11-12-2023 11:15-0400 Systolic blood pressure 116 mm[Hg] Jayashree Avilez MD Work Phone[facility] 11-10-2023 03:41-0400 Body height 162.6 cm Jayashree Avilez MD Work Phone[facility] 11-10-2023 03:41-0400 Body mass index (BMI) [Ratio] 33.34 kg/m2 Jayashree Avilez MD Work Phone[facility] 11-10-2023 03:41-0400 Body weight 88.1 kg Jayashree Avilez MD Work Phone: [facility] 08-03-2023 08:23-0500 Blood Pressure Location Pamela Benson [facility] Encounters Encounter Date Encounter Type Care Provider Facility Start: 12-08-2023 End: 12-08-2023 Social Work Lisa Kruse MAINTENANCE SCHEDULER Hematology/Oncology Comment on above: Patient Update Start: 12-07-2023 End: 12-07-2023 ambulatory LAISHA COBURN Facility:[facility] Start: 12-02-2023 End: 12-02-2023 ambulatory EL AHMADI Facility:[facility] Start: 11-28-2023 End: 11-29-2023 ambulatory Nathalie Saleh RN Radiation Oncology Comment on above: Patient Education Start: 11-25-2023 Orders Only El Ahmadi MD Work Phone: Radiation Oncology Comment on above: 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) (Primary Dx) Orders; Patient Upda te Start: 11-23-2023 Orders Only Bernadette Metzger BAG END SEWER.MANAGER PATHOLOGY Work Phone: Gynecology Oncology Comment on above: High grade squamous intraepithelial lesion (HGSIL), grade 3 SUDHA, on biopsy of cervix (Primary Dx) Start: 11-21-2023 End: 11-21-2023 [facility] Start: 11-17-2023 ambulatory Edmond Matias ty:CD:[id number] Start: 11-10-2023 End: 11-12-2023 Evaluation and management of inpatient JAYASHREE AVILEZ [facility] Start: 11-10-2023 End: 11-12-2023 Evaluation and management of inpatient Jayashree Avilez MD Work Phone: [address] MED SURG Comment on above: Bleeding from the ge nitourinary system Start: 11-09-2023 End: 11-09-2023 ambulatory Kobe Cherie Facility:[facility] Start: 11-02-2023 End: 11-02-2023 ambulatory KOBE CHERIE Not Available Start: 10-06-2023 End: 10-06-2023 ambulatory REBECCA [facility] Start: 09-23-2023 End: 09-23-2023 ambulatory [facility] Start: 08-26-2023 End: 08-26-2023 ambulatory [facility] Start: 08-24-2023 End: 08-25-2023 ambulatory Pamela M. Lue Facility:[facility] Start: 08-24-2023 End: 08-24-2023 Off-Site Pamela M. Lue [facility] Start: 08-04-2023 End: 08-05-2023 ambulatory Pamela M. Lue Facility:[facility] Start: 08-04-2023 End: 08-04-2023 Lab Drop off Pamela M. Lue [facility] Start: 08-03-2023 End: 08-04-2023 ambulatory Pamela M. Lue Facility:[facility] Start: 08-03-2023 End: 08-03-2023 Patient encounter procedure [facility] Start: 07-27-2023 End: 07-27-2023 ambulatory KOBE [...] - S adam or Plasma Bernadette Metzger BAG END SEWER.MANAGER PATHOLOGY Work Phone: [phone] Pamela Benson Plan of Treatment Date Care Activity Detail Author Start: 11-09-2028 Lipid panel [facility] Start: 11-10-2026 Diabetes Screening Diabetes Screenin g [facility] Start: 11-10-2024 GFR test (Diabetes, CKD 3-4, OR last GFR 15-59) GFR test (Diabetes, CKD 3-4, OR last GFR 15-59) [facility] Start: 03-11-2024 Influenza vaccination Influenz a Vaccine (Season Ended) [facility] Start: 02-09-2024 Influenza vaccination Flu vacc ine (Season Ended) [facility] Start: 01-16-2024 End: 12-27-2024 MR Pelvis WO and W contrast IV MRI FEMALE PELVIS WO/W IVCON Radiology Routine 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) Expected: 01/16/2024, Expires: 12/27/2024 [facility] Work Phone: Comment on above: Expected: 01/16/2024 , Expires: 12/27/2024 Start: 12-28-2023 End: 12-28-2023 ambulatory 12/28/2023 10:00 AM EDT Visit (SP) Office Gynecology Oncology [address] [place] [address] [place] [address] Mariam Mckinley MD [address] [place] [address] Vaginal Mass Gynecology Oncology Comment on above: [...] 1:00 PM EDT Office Visit Radiation Oncology [address] [place] [address] [place] [address] [place] [address] New Consult Radiation Oncology Comment on above: New Consult Start: 12-02-2023 End: 12-02-2023 Patient encounter procedure 12/02/2023 1:30 PM EDT Appointment Radiology [facility] [address] [place] [address] Comment on above: pet scan Start: 11-28-2023 End: 11-28-2023 Patient encounter procedure 11/28/2023 9:00 AM EDT Office Visit Radiation Oncology [address] [place] [address] El Ahmadi MD [address] [place] [address] Dr Jareth Natarajan cevical cancer Radiation Oncology Comment on above: Dr Jareth Natarajan cevical cancer Start: 11-11-2023 Annual Wellness Visi t (Medicare) Annual Wellness Visit (Medicare) [facility] Start: 07-11-2023 Advance Directive Discussion Advance Directive Discussion [facility] Start: 07-11-2023 Behavioral Health Screening Behavioral Health Screening [facility] Start: 03-11-2023 Covid-19 Vaccine () Covid-19 Vaccine () [facility] Start: 03-11-2023 Covid-19 Vaccine ( season) Covid-19 Vaccine ( season) [facility] Start: 03-11-2023 COVID-19 Vaccine ( season) COVID-19 Vaccine ( season) [facility] Start: 2020 Pneumococcal 65+ yea rs Vaccine (1 of 1 - PCV) Pneumococcal 65+ years Vaccine (1 of 1 - PCV) [facility] Start: 2020 Pneumococcal Vaccine : 65+ (1 of 1 - PCV) Pneumococcal Vaccine: 65+ (1 of 1 - PCV) [facility] Start: 2020 Screening for osteoporosis Bone Density Screening [facility] Start: 2015 Respiratory Syncytia l Virus (RSV) or age 60 yrs+ (1 - 1-dose 60+ series) Respiratory Syncytial Virus (RSV) or age 60 yrs+ (1 - 1-dose 60+ series) [facility] Start: 2015 RSV Vaccine (1 - 1-dose 60+ series) RSV Vaccine (1 - 1-dose 60+ series) [facility] Start: 2010 Screening for osteoporosis DEXA (modify frequency per FRAX score) [facility] Start: 2005 Screening for malignant neoplasm of breast Breast cancer screen [facility] Start: 2005 Shingles vaccine (1 of 2) Shingles vaccine (1 of 2) [facility] Start: 2005 Shingrix Vaccine (1 of 2) Shingrix Vaccine (1 of 2) [facility] Start: 2000 Screening for malignant neoplasm of colon [facility] Start: 1995 Screening for malignant neoplasm of breast Mammogram Screening [facility] Start: 1974 DTaP/Tdap/Td vaccine (1 - Tdap) DTaP/Tdap/Td vaccine (1 - Tdap) [facility] Start: 1974 Urine microalbumin profile DTaP,Tdap,Td Vaccine (1 - Tdap) [facility] Start: 1973 Hepatitis C screening [facility] Start: 1967 Depression Screen Depression Screen [facility] [employer] Glucose [Mass/volume ] in Serum or Plasma [facility] [employer] Comment on above: 4X Daily (AC & HS) u ntil discontinued starting 11/10/2023 As Needed until disc ontinued starting 11/10/2023 OUTSIDE SURG PATH SLIDE REVIEW OUTSIDE SURG PATH SLIDE REVIEW Lab Routine High grade squamous intraepithelial lesion (HGSIL), grade 3 SUDHA, on biopsy of cervix Ordered: 11/23/2023 [facility] Work Phone: Comment on above: Ordered: 11/23/2023 Oxygen therapy [Minimum Data Set] Initiate Oxygen Therapy Protocol Respiratory Care Routine Daily until discontinued starting 11/10/2023 [facility] [employer] Comment on above: Daily until disconti nued starting 11/10/2023 End: 12-24-2024 PET+CT Guidance for localization of tumor of Skull base to mid-thigh-- W 18F-FDG IV NM PET/CT SKULL-THIGH INITIAL Radiology Routine 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) 1 Occurrences starting 11/25/2023 until 12/24/2024 [facility] Work Phone: Comment on above: 1 Occurrences starti ng 11/25/2023 until 12/24/2024 End: 11-10-2023 SPECIMEN RE[facility]CTION [facility] Work Phone: Comment on above: Once for 1 Occurrenc es starting 11/10/2023 until 11/10/2023 Surgical Pathology Surgical Path ology Lab Routine Bleeding from the genitourinary system Release Upon Ordering for 1 Occurrences starting 11/11/2023 [facility] [employer] Comment on above: Release Upon Orderin g for 1 Occurrences starting 11/11/2023 Immunizations Immunization Date Immunization Notes Care Provider Fa cilimilla 05-27-2022 SARS-CoV-2 (COVID-19 ) [id number] Pamela Benson [facility] 06-12-2021 SARS-CoV-2 (COVID-19 ) mRNA BNT-162b2 vax Pamela Benson [facility] 08-13-2020 SARS-CoV-2 (COVID-19 ) mRNA BNT-162b2 kelseyx Pamela Benson [facility] Comment on above: Result Comment: 2023: [id number] 07-23-2020 SARS-CoV-2 (COVID-19 ) mRNA BNT-162b2 vax Pamela Benson [facility] Comment on above: Result Comment: 2023: [id number] Payers Date Payer Category Payer Self-pay 2023 Medicare [id number] 2020 Medicaid [id number] 2020 Medicaid MEDICAID [facility] MEDICAID [id number] 2020-Present [phone] [address] [place] [address] Medicaid [id number] 2020 Medicare [id number] 2020 Medicare MEDICARE MEDICAR E A AND B [id number] 2020-Present [phone] [address] [address] [place] [address] Medicare [id number] 1955 Unknown [id number] 1955 Unknown [id number] 1955 Unknown [id number] 1955 Unknown [id number] 1955 Unknown [id number] [id number] 1955 Unknown [id number] [id number] 1955 Unknown [id number] [id number] 1955 Unknown [id number] 1955 Unknown [id number] Unknown [id number] Social History Date Type Detail Facility Start: 08-03-2023 Tobacco smoking status Never s moked tobacco (finding) [facility] Start: 11-28-2023 End: 12-07-2023 Sex Assigned At Female [facility] Tobacco smoking stat [facility] Tobacco smoking consumption unknown [facility] Start: 1955 Sex Assigned At Not on file [facility] Start: 11-28-2023 Tobacco smoking stat [facility] Ex-smoker [facility] History of tobacco use Current smoker [facility] History of tobacco use Cigarette Smoker [facility] Start: 11-28-2023 End: 12-07-2023 Cigarettes smoked current (pack per day) - Reported 0.5 [facility] Start: 11-28-2023 Tobacco use and exposure Smokeless tobacco non-user [facility] Start: 11-28-2023 End: 12-07-2023 Alcohol intake Current drinker of alcohol (finding) [facility] National Score (1-10 0), lower number is lower risk 63 [facility] Functional Status Date Assessment Result Facility 08-03-2023 Functional Status N/A [facility] Clinical Notes 08-03-2023 to 12-08-2023 Lisa Kruse LSW - 12/08/2023 2:57 PM EDTTelephone aJvid - Skylar Harris - 12/08/2023 1:09 PM EDTTelephone [facility]/08[facility]23 1:09 PM EDT Note Date & Type Note Facility 12-08-2023 History of Presen t illness Narrative Patient appears on the [facility] First Time Radiation Treatment Report. SW completed a chart review and there was a note from today...Please cancel Candis's SIM scheduled 12/09/[address] Ahmadi. Patient's PET scan shows metastatic disease and patient will proceed with chemotherapy per Dr. Templeton. SW will remain available and will follow up as appropriate. BRENT Siddiqi documented in this encounter [facility] 12-08-2023 Telephone encounter Note Report faxed to Dr. Gleason and Dr. Avilez. Images pushed to [facility]. [facility] 12-08-2023 Miscellaneous Notes Report faxed to Dr. [...] RN documented in this encounter [facility] 12-08-2023 Telephone encounter Note MRI not needed per chat [facility] 12-08-2023 Miscellaneous Notes MRI not needed per chat Spoke with patients son, he would like scheudled at [facility] since its easiest for nusing home [...] Dr. Mckinley - she is established with cell tender onc out of [place] already (Dr. Avilez). Will need repeat MRI pelvis week of January 15. Thanks! El Dr Ahmadi- order pending your approval. Nathalie Saleh RN Please place [facility] RAD onc consult I called and spoke to Angelina at [facility] and she said Candis does very [...] language. She has been a resident at [facility] assisted living for 4-5 years and does very well there per Landen. I notified Landen that Dr. Ahmadi is ordering a PET scan, rad onc consult at [facility] and trying to move up Candis's consult with Dr. Elías zimmer. Landen states between himself and [facility] transportation should not be an issue. Yumiko: 1. Please schedule PET scan goran. 2. Rad Onc consult at [facility] 3. Move up Dr. Mckinley's consult goran. Dr. Mckinley are you or your staff able to assist in rescheduling Ms. Johnson's consult with you goran per Dr. Ahmadi? She is currently scheduled for consult on 12/28/23. Thanks Monica Boyle RN documented in this encounter [facility] 12-08-2023 Telephone encounter Note Cancelled appointment. [facility] 12-08-2023 Telephone encounter Note Yumiko: Please cancel [...] Avilez. Monica Boyle RN T [facility] 12-08-2023 Telephone encounter Note Spoke with patients son, he would like scheudled at [facility] since its easiest for nusing home I sent over order will check on later, thanks [facility] 12-08-2023 Telephone encounter Note Called son to see where they would like the MRI scheduled, had to leave a message. [facility] 12-02-2023 Note HNO ID: [id number] Author: MIRIAN JIMENES RT(Con) Service: ? Author [...] 1340 PATIENT DISCHARGED TO: Ambulatory patient, left [place] department area. A Diagnostic radioactive procedure has taken place, with no further precautions necessary other than routine body substance precautions. More information regarding radiation safety can be found using this link: [email or web address] [email or web address] SIGNATURE: RT Aliyah(R) PATIENT NAME: Candis Johnson DATE: December 02, 2023 TIME: 2:23 PM PAGER/CONTACT #: [facility] 12-02-2023 Note HNO ID: [id number] Author: ASHWINI BUNCH RN Service: ? Author [...] DATE: December 02, 2023 TIME: 1:44 PM [facility] 11-28-2023 Telephone encounter Note MRI order pending your approval. Monica Boyle RN [facility] 11-28-2023 Note Education (RADROHITHA) CANDIS JOHNSON ([id number]) 1955 F DEF Date Time Provider Department 11/28/23 NATHALIE SALEH Reason for Visit: Patient Education [91] Visit Notes: >> Nathalie Saleh RN [facility] November 28, 2023 10:22 AM Status: Signed Radiation Therapy - Patient Education Note PATIENT NAME: Candis Johnson PATIENT November 28, 2023 [facility] FACILITY/LOCATION: [facility] READINESS TO LEARN Cognitive Ability: Confused at [...] Encounter Status:Closed by NATHALIE SALEH on 11/28/23 [facility] 11-28-2023 Telephone encounter Note Please place MRI orders [facility] 11-28-2023 Telephone encounter Note Rad onc consult order signed for main campus referral (brachytherapy). Can cancel consult request with Dr. Mckinley - she is established with cell tender onc out of [facility] (Dr. Avilez). Will need repeat MRI pelvis week of January 15. Thanks! El T [facility] 11-28-2023 Nurse Note Radiation Therapy - Patient Education Note PATIENT NAME: Candis Johnson PATIENT November 28, 2023 [facility] FACILITY/LOCATION: [facility] READINESS TO LEARN Cognitive Ability: Confused at [...] by: Nathalie Saleh RN T [facility] 11-28-2023 Nurse Note Radiation Therapy - Patient Education Note PATIENT NAME: Candis Johnson PATIENT November 28, 2023 [facility] FACILITY/LOCATION: [facility] READINESS TO LEARN Cognitive Ability: Confused at [...] RN documented in this encounter [facility] 11-28-[address] Ahmadi- order pending your approval. Nathalie Saleh RN [facility] 11-28-2023 Telephone encounter Note Please place [facility] RAD onc consult [facility] 11-25-2023 Telephone encounter Note I called and spoke to Angelina at [facility] and she said Candis does very [...] language. She has been a resident at [facility] assisted living for 4-5 years and does very well there per Landen. I notified Landen that Dr. Ahmadi is ordering a PET scan, rad onc consult at [facility] and trying to move up Candis's consult with Dr. Elías zimmer. Landen states between himself and [facility] transportation should not be an issue. Yumiko: 1. Please schedule PET scan goran. 2. Rad Onc consult at [facility] 3. Move up Dr. Mckinley's consult goran. Dr. Mckinley are you or your staff able to assist in rescheduling Ms. Johnson's consult with you goran per Dr. Ahmadi? She is currently scheduled for consult on 12/28/23. Thanks Monica BoyleRN [facility] 11-12-2023 Hospital course Narrative Operations Examiner/Onc Discharge Summary [facility] Patient Name: Candis Johnson Patient : 1955 Primary Care Physician: Ander Langley DO Admit Date: 11/10/2023 Principal Diagnosis: Vaginal Mass Other Diagnosis: Vaginal mass [N89.8] Patient Active Problem List Diagnosis Vaginal mass Infection: No Hospital Acquired: No Surgical Operations & Procedures: None Consultations: None Pertinent Findings & Procedures: Cnadis Johnson is a 68 y.o. female admitted for surgical examination of vaginal mass as transfer from [facility]; HD#1 (11/09): Patient is hard of hearing [...] Follow-up care, restrictions reviewed. Wil Mai MD Security And Privacy Consultant Resident [facility] 11/12/2023, 9:07 AM documented in this encounter [facility] 11-12-2023 History of Presen t illness Narrative Gynecology Oncology Progress Note Candis Johnson is a 68 y.o. female HD#3, POD#1 who transferred from [facility] due to concern for vaginal mass Patient [...] Johnson 68 y.o. female HD#3 transferred from [facility] due to concern for vaginal mass - [...] with Deafness - Discussed with nursing at [facility] and patient's son, Landen - Per [...] significant clearance testing in anticipation for her cell tender/urologic procedures - 09/09/23: myocardial perfusion imagining normal - 09/09/23: ECHO: EF 55-60%; normal RV size/function. Bilateral enlargement. Grade 2 diastolic dysfunction. - Repeat EKG 11/09: Normal sinus rhythm, anterior infarct age undetermined (old, seen on EKG on 08/15/23) - Nitroglycerin ordered PRN - Ranolazine not ordered inpatient - Continue to monitor Anemia - Admit Hgb @ [facility] 6.5 - S/p 2u pRBC Hgb 8.9 - Admit Hgb at [facility] 8.7 - Hgb /; 9.0 - Will [...] insulin requirement Schizophrenia - Per nursing at [facility] and patient's son, patient has significant PMH of schizophrenia - Home meds include Topomax and Lumaterprone (not on formulary at [facility]. Consulted with [facility] and they [...] y.o. female HD#2, POD#0 who transferred from [facility] due to concern for vaginal mass Patient [...] Johnson 68 y.o. female HD#2 transferred from [facility] due to concern for vaginal mass - [...] with Deafness - Discussed with nursing at [facility] and patient's son, Landen - Per [...] significant clearance testing in anticipation for her cell tender/urologic procedures - 09/09/23: myocardial perfusion imagining normal [...] pRBC Hgb 8.9 - Admit Hgb at [facility] 8.7 - Hgb /3; 9.0 - Will [...] insulin requirement Schizophrenia - Per nursing at [facility] and patient's son, patient has significant PMH of schizophrenia - Home meds include Topomax and Lumaterprone (not on formulary at [facility]. Consulted with [facility] and they [...] a 68 y.o. female HD#2 transferred from [facility] due to concern for vaginal mass Patient [...] Johnson 68 y.o. female HD#2 transferred from [facility] due to concern for vaginal mass - [...] with Deafness - Discussed with nursing at [facility] and patient's son, Landen - Per [...] significant clearance testing in anticipation for her cell tender/urologic procedures - 09/09/23: myocardial perfusion imagining normal - 09/09/23: ECHO: EF 55-60%; normal RV size/function. Bilateral enlargement. Grade 2 diastolic dysfunction. - Repeat EKG 11/09: Normal sinus rhythm, anterior infarct age undetermined (old, seen on EKG on 08/15/23) - Nitroglycerin ordered PRN - Ranolazine not ordered inpatient - Continue to monitor Anemia - Admit Hgb @ [facility] 6.5 - S/p 2u pRBC Hgb 8.9 - Admit Hgb at [facility] 8.7 - AM CBC pending - Will [...] insulin requirement Schizophrenia - Per nursing at [facility] and patient's son, patient has significant PMH of schizophrenia - Home meds include Topomax and Lumaterprone (not on formulary at [facility]. Consulted with [facility] and they [...] as the patient's health care power of trial attorney. Landen has been advised of the [...] Evaluation: A cardiology evaluation was completed at [facility] prior to her transfer. Records have been reviewed. Lab results have been reviewed Proceed with surgical evaluation as planned Jayashree Avilez MD Gynecologic Oncology Obstetric/Gynecology Resident Interval Note At time of rounding, patient in MRI suite obtaining MRI pelvis. Dr. Avilez, MOLD SANDER/ONC attending, present at bedside to discuss evaluation and management plans with patient's son, Landen. Landen is the patient's power of trial attorney and medical decision maker. Paperwork uploaded [...] ms QTc Calculation (Bazett) 410 ms P Kermit 40 degrees R Kermit 6 degrees T Kermit 20 degrees EKG 12 Lead Collection Time: 11/10/23 4:32 AM Result Value Ref Range Ventricular Rate 65 BPM Atrial Rate 65 BPM P-R Interval 172 ms QRS Duration 86 ms Q-T Interval 406 ms QTc Calculation (Bazett) 422 ms P Kermit 42 degrees R Kermit 7 degrees T Kermit 19 degrees Comprehensive Metabolic Panel w/ Reflex [...] Sample Expiration 11/13/2023,2359 Arm Band Number BE [id number] ABO/Rh O POSITIVE Antibody Screen NEGATIVE Lipid [...] 65 - 105 mg/dL Annabelle Moss MD FLARE BREAKER Resident, PGY2 [place], [place] 11/10/2023, 5:14 PM Attending Physician Statement [...] the resident. Jayashree Avilez MD Gynecologic Oncology EXHAUSTER ALL NOTES Facility/Department: [address] MED SURG CLINICAL BEDSIDE SWALLOW EVALUATION NAME: Candis Johnson : 1955 ADMISSION DATE: 11/10/2023 ADMITTING DIAGNOSIS: has Vaginal mass on their problem list. Date of Eval: 11/10/2023 Evaluating Therapist: JODIE Damon Current Diet level: Current Diet : NPO Current Liquid Diet : NPO Primary Complaint: Candis Johnson is a 68 y.o. female presents to [facility] as a direct transfer from [facility] for concern for vaginal cancer. All the information is derived from a paper chart from [facility]. We do not have access to medical [...] Normal in all situations Treatment Plan Requires EXHAUSTER Intervention: Yes 1-2X D/C Recommendations: Ongoing speech [...] Patient Education Response: Verbalizes understanding Therapy Time [id number] JODIE Damon 11/10/2023 11:10 AM Unable to complete admission assessment. Patient has impaired hearing. documented in this encounter [facility] 10-06-2023 Note Cardiology Clinic No te Chief Complaint: preop risk stratification HPI: PMHx: Candis Johnsno is a 68 y.o. female With no reported cardiac history who presents to cardiology clinic at the request of her FLARE BREAKER doctor for perioperative restratification prior to D&C and LEEP procedure. Of note: Patient is deaf. 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 She does her best to communicate by lipreading. She is accompanied by her driver material handler today, who assists in communication. Today, patient [...] medical history of Diabetes mellitus ([facility]). Surgical History She has no past surgical [...] test 09/09/2023 N (more content not included)... [facility] 10-06-2023 Note Patient here for 2 w huslia follow up SOB, atypical chest pain, and [...] All other systems reviewed and are negative. [facility] 09-23-2023 Note Concerns: Not much s tates some swelling in legs and some back back, chest pain seems to be getting better [facility] 09-23-2023 Note Cardiology Clinic No te Chief Complaint: preop risk stratification HPI: Candis Johnson is a 68 y.o. female With no reported cardiac history who presents to cardiology clinic at the request of her FLARE BREAKER doctor for perioperative restratification prior to D&C and LEEP procedure. Of note: Patient is deaf. 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 She does her best to communicate by lipreading. She is accompanied by her driver material handler today, who assists in communication. Today, patient [...] medical history of Diabetes mellitus ([facility]). Surgical History She has no past surgical [...] -Further recommendations regardi (more content not included)... [facility] 08-26-2023 Note Cardiology Clinic No te Chief Complaint: preop risk stratification HPI: Candis Johnson is a 68 y.o. female With no reported cardiac history who presents to cardiology clinic at the request of her FLARE BREAKER doctor for perioperative restratification prior to D&C and LEEP procedure. Of note: Patient is deaf. 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 She does her best to communicate by lipreading. She is accompanied by her driver material handler today, who assists in communication. As per patient and her driver material handler, patient denies any cardiac history. She denies [...] medical history of Diabetes mellitus ([facility]). Surgical History She has no past surgical [...] HLD -Optimize med (more content not included)... [facility] 08-26-2023 Note New patient here to establish care. Ref from Dr. Crespo for surgery clearance prior to D&C and LEEP procedure. This is scheduled for 08/31 at [facility] per patient. She had labs and EKG last week. Says she gets intermittent chest pain and SOB w/ exertion. Review of Systems HENT: Positive for hearing loss. Cardiovascular: Positive for chest pain (intermittent) and dyspnea on exertion (intermittent). All other systems reviewed and are negative. [facility] 08-04-2023 Evaluation + Plan note Diagnostic Tests PendingUrine Cytology ([facility]) 08/04/23 [facility] 08-03-2023 Hospital Discharg e instructions Patient Education [...] including vitamins, herbs, eye drops, creams, and mrob-uym-lsjcfsl medicines. Any problems you or family members [...] health care provider tells you to. Taking cfwe-mxn-ctnhlvl medicines, vitamins, herbs, and supplements. General instructions [...] provider. Document Revised: 10/22/2022 Document Reviewed: 10/22/2022 [employer] Patient Education 2022 [employer]. 08/03/2023 09:37:21 Hematuria, Adult Hematuria, Adult Hematuria [...] Follow these instructions at home: Medicines Take keod-hby-pcsedyn and prescription medicines only as told by [...] or the blood stops without treatment. Take duam-abr-gnnkbpq and prescription medicines only as told by your health care provider. Drink enough fluid to keep your urine pale yellow. This information is not intended to replace advice given to you by your health care provider. Make sure you discuss any questions you have with your health care provider. Document Revised: 02/25/2021 Document Reviewed: 02/25/2021 [employer] Patient Education 2022 [employer]. Follow Up Care 07/13/2023 11:34:42 With:Marcelino GALLARDO, Pamela Fam URL, URO Address: When: Unknown Comments:Schedule Cysto, Rt ureteroscopy, possible biopsy, and Rt stent placement [facility] Evaluation + Plan note No data available for this section [facility] Evaluation note Diagnosis Vaginal mass- Primary Other specified symptom associated with female genital organs Bleeding from the genitourinary system Other specified disorders of urinary tract documented in this encounter [facility] note* Diagnosis High grade squamous intraepithelial lesion (HGSIL), grade 3 SUDHA, on biopsy of cervix- Primary documented in this encounter [facility] note* Diagnosis 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 * Hysteroscopy: Post-op (Bolivian) * Cystoscopy: Post-op (Bolivian) [facility] No data available for this section [facility] reason for referral (narrative)* Diagnostic Procedure Only (Routine) - Pending Review Specialty Diagnoses / Procedures Referred By Enaac t Referred To Contact MOLECULAR & FUNCTIONAL IMAGING Diagnoses 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) Procedures NM PET/CT SKULL-THIGH INITIAL PET IMAGING CT ATTENUATION SKULL BASE MID-THIGH El Ahmadi MD [address] [place] [address] [place] [address] Molecular & Functional Imaging [address] [place] [address] Referral ID Status Reason Start Date Expiration Date Visits Requested Visits Authorized [id number] Pending Review Auto-Generat ed Referral 11/25/2023 12/24/2024 1 1 [facility] Summary Purpose Family History No Family History [...] W/O & W/CONTRAST MATERIAL El Ahmadi MD [address] [place] [address] [place] [address] Mr Imaging [facility] Referral ID Status Reason Start Date Expiration Date Visits Requested Visits Authorized [id number] Pending Review Auto-Generat ed Referral 01/16/2024 12/27/2024 1 1 Specialty Diagnoses / Procedures Referred By Luis t Referred To Contact Radiation Oncology Diagnoses 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) Procedures RAD/ONC CONSULT OFFICE/OUTPATIENT NEW HIGH MDM 60 MINUTES El Ahmadi MD [address] [place] [address] [place] [address] Referral ID Status Reason Start Date Expiration Date V isits Requested Visits Authorized [id number] Closed PCP Requested Referral 11/29/2023 11/27/2024 1 1 Additional Source Comments INFORMATION SOURCE (unrecogn ized section and content) DATE CREATED AUTHOR 07/05/2022 [facility] DATE CREATED AUTHOR AUTHOR'S ORGANIZ ATION 11/04/2023 [facility] EPIC DATE CREATED AUTHOR AUTHOR'S ORGANIZ ATION 11/12/2023 [facility] DATE CREATED AUTHOR AUTHOR'S ORGANIZ ATION 12/04/2023 [facility] DATE CREATED AUTHOR AUTHOR'S ORGANIZ ATION 12/05/2023 [facility] DATE CREATED AUTHOR AUTHOR'S ORGANIZ ATION 12/08/2023 [facility] DATE CREATED AUTHOR AUTHOR'S ORGANIZ ATION 12/09/2023 [facility] Patient Care team informatio n (unrecognized section and content) Statistical Methods Professor Relationship Specialty Start Date End Date Ander Langley DO [address] [place] [phone] PCP - General Internal Medicine 11/10/23 Reason for Visit (unrecogniz ed section and content) Specialty Diagnoses / Procedures Referred By Luis hernandez Referred To Contact Diagnoses Vaginal mass vaginal cancer, anemia bleeding Jayashree Avilez MD [facility] [address] [address] [facility] [id number] [place] [place] [address] Referral ID Status Reason Start Date Expiration Date Visits Re quested Visits Authorized [id number] 1 1 Reason Comments Patient Education Reason Comments Orders Patient Update Reason Comments Patient Update Scheduled Active and Recently Administ ered Medications (unrecognized section and content) Medication Order 11/10/2023 11/11/2023 11/12/2023 acarbose (PRECOSE) tablet 100 mg 100 mg, Oral, 2 times daily, First dose on Rosina 11/10/23 at 1000, Until Discontinued 1118 (Given - Provider: Radha Cadet RN)1477 (Given - Provider: Sally Garcia RN) 0855 (Held - Provider: Snehal Chahal RN - Reason: Pt NPO)1624 (SEP Hold - Provider: [facility] - Reason: Unreviewed Transfer Orders)193 (MAR [...] parameters not met)1624 (MAR Hold - Provider: [facility] [employer] - Reason: Unreviewed Transfer Orders)1700 (Automatically [...] Snehal Chahal RN)1624 (MAR Hold - Provider: [facility] [employer] - Reason: Unreviewed Transfer Orders)1931 (MAR [...] RN)1600 (NoRateChange - Provider: CLEMENTINE Caballero CRNA)162 ([facility] Hold - Provider: Tiffany Autohold - Reason: Unreviewed Transfer Orders)1634 (Paused - Provider: CLEMENTINE Caballero CRNA - Comment: Switch to gravity)1635 (Restarted - Provider: CLEMENTINE Caballero CRNA)1723 (New Bag - Provider: CLEMENTINE Caballero CRNA)1931 ([facility] Unhold - Provider: Marysol Head RN)2001 (Rate/Dose [...] rate as the piggyback being infused. 1623 ([facility] Hold - Provider: Tiffany Autohold - Reason: Unreviewed Transfer Orders)1931 ([facility] Unhold - Provider: Marysol Head RN) acetaminophen (TYLENOL) tablet 1,000 mg 1,000 mg, Oral, EVERY 6 HOURS PRN, Starting on Rosina 11/10/23 at 0934, Until Discontinued, Pain Mild (1-3) 1623 ([facility] Hold - Provider: Tiffany Autohold - Reason: Unreviewed Transfer Orders)1931 ([facility] Unhold - Provider: Marysol Head RN) albuterol sulfate HFA (PROVENTIL;VENTOLIN;PROAIR) 108 (90 Base) MCG/ACT inhaler 2 puff 2 puff, Inhalation, EVERY 6 HOURS PRN, Starting on Rosina 11/10/23 at 0937, Until Discontinued, Wheezing, Initiate RT Bronchodilator Protocol: Yes - Inpatient Protocol 1623 ([facility] Hold - Provider: [facility] [employer] - Reason: Unreviewed Transfer Orders)1931 ([facility] Unhold - Provider: Marysol Head RN) [...] minutes, discontinue dextrose 10% infusion. 1623 ([facility] Hold - Provider: [facility] [employer] - Reason: Unreviewed Transfer Orders)1931 ([facility] Unhold - Provider: Marysol Head RN) [...] 100 mL/hour and notify provider. 1623 ([facility] Hold - Provider: [facility] [employer] - Reason: Unreviewed Transfer Orders)1931 ([facility] Unhold - Provider: Marysol Head RN) [...] 100 mL/hour and notify provider. 1623 ([facility] Hold - Provider: [facility] [employer] - Reason: Unreviewed Transfer Orders)1931 ([facility] Unhold - Provider: Marysol Head RN) fluticasone (FLONASE) 50 MCG/ACT nasal spray 2 spray 2 spray, Each Nostril, DAILY PRN, Starting on Rosina 11/10/23 at 0938, Until Discontinued, Rhinitis 1623 ([facility] Hold - Provider: [facility] [employer] - Reason: Unreviewed Transfer Orders)1931 ([facility] Unhold - Provider: Marysol Head RN) [...] x 2 and notify provider. 1623 ([facility] Hold - Provider: [facility] [employer] - Reason: Unreviewed Transfer Orders)1931 ([facility] Unhold - Provider: Marysol Head RN) [...] THAN 70 mg/dL, notify provider. 1623 ([facility] Hold - Provider: [facility] [employer] - Reason: Unreviewed Transfer Orders)1931 ([facility] Unhold - Provider: Marysol Head RN) HYDROmorphone [...] Protocol: Yes - Inpatient Protocol 1623 ([facility] Hold - Provider: Tiffany Autohold - Reason: Unreviewed Transfer Orders)1931 ([facility] Unhold - Provider: Marysol Head RN) [...] for nitroGLYCERIN translingual spray (NITROLINGUAL).. 1623 ([facility] Hold - Provider: Tiffany Autohold - Reason: Unreviewed Transfer Orders)1931 ([facility] Unhold - Provider: Marysol Head RN) ondansetron (ZOFRAN) injection 4 mg(Linked Group 2) 4 mg, IntraVENous, EVERY 6 HOURS PRN, Starting on Rosina 11/10/23 at 0353, Until Discontinued, Nausea, Vomiting, Administer if oral route cannot be used. 1623 ([facility] Hold - Provider: Tiffany Autohold - Reason: Unreviewed Transfer Orders)1931 ([facility] Unhold - Provider: Marysol Head RN) ondansetron (ZOFRAN-ODT) disintegrating tablet 4 mg(Linked Group 2) 4 mg, Oral, EVERY 8 HOURS PRN, Starting on Rosina 11/10/23 at 0353, Until Discontinued, Nausea, Vomiting 1623 ([facility] Hold - Provider: [facility] [employer] - Reason: Unreviewed Transfer Orders)1931 ([facility] Unhold - Provider: Marysol Head, PARAG) sod [...] [employer] - Reason: Unreviewed Transfer Orders)1931 ([facility] Unhold - Provider: Marysol Head RN)1955 [...] any alcohol or drug abuse patient.[facility], IncIn the event this information is protected by the Federal Confidentiality of Alcohol and Drug Abuse Patient Records regulations: The Federal rules restrict any use of the information to criminally investigate or prosecute any alcohol or drug abuse patient.[facility], IncIn the event this information is protected by the Federal Confidentiality of Alcohol and Drug Abuse Patient Records regulations: The Federal rules restrict any use of the information to criminally investigate or prosecute any alcohol or drug abuse patient.[facility], IncIn the event this information is protected by the Federal Confidentiality of Alcohol and Drug Abuse Patient Records regulations: The Federal rules restrict any use of the information to criminally investigate or prosecute any alcohol or drug abuse patient.[facility], IncIn the event this information is protected by the Federal Confidentiality of Alcohol and Drug Abuse Patient Records regulations: The Federal rules restrict any use of the information to criminally investigate or prosecute any alcohol or drug abuse patient.[facility], IncIn the event this information is protected by the Federal Confidentiality of Alcohol and Drug Abuse Patient Records regulations: The Federal rules restrict any use of the information to criminally investigate or prosecute any alcohol or drug abuse patient.[facility] FOR RECORDS PERTAINING TO PATIENTS WHO ARE [...] BE BASED ON THE PRIMARY CLINICAL RECORDS. [facility], [facility]. provides no warranty or guarantee of the accuracy or completeness of information in this document.
[2023-12-11] VITALS (17 sets, daily range): BP systolic 105–119; BP diastolic 58–66; PULSE 58–82; O2SAT 71–99
[2023-12-11] MEDS: 0.9 % SODIUM CHLORIDE 1,000 ML 100 ML IV (05:44)
--- NOTE | 2023-12-11 06:00 | ECG_ITS ---
The [facility] Test Date: 2023-12-11 Pat Name: STEVE JOHNSON Department: Room: [facility] Gender: Female Legal Support Assistant: : 1955 Requested By: Order Number: [id number] Reading MD: MAKSIM NIETO Measurements Intervals [place] Rate: 66 P: 55 NE: 182 QRS: 51 QRSD: 88 T: 24 QT: 388 QTc: 402 Interpretive Statements 1100 Sinus rhythm Low voltage across the precordium 9150 abnormal ECG Electronically Signed On 12-11-2023 8:24:22 EDT by MAKSIM NIETO
[2023-12-11] MEDS: ENOXAPARIN SODIUM 40 MG/0.4 ML SYRINGE SUBQ (08:18)
[2023-12-11] MEDS: LACTATED RINGER'S SOLUTION 1,000 ML 125 ML IV (08:23)
[2023-12-11 08:27] LABS: Anion Gap 9.5; BUN Creatinine Ratio 17.8; Calcium 8.7 mg/dL (8.5-10.1); Carbon Dioxide 26.8 mmol/L (21.0-32.0); Chloride 104 mmol/L (98-107); Estimated GFR (African America 55 (>=60); Estimated GFR (Non-African Ame 46 (>=60); Glucose 84 mg/dL (74-106); Potassium 4.3 mmol/L (3.5-5.1); Sodium 136 mmol/L (136-145)
[2023-12-11 08:28] LABS: Glucometer 97 mg/dL (74-106)
[2023-12-11 08:28] LABS: Magnesium 1.9 mg/dL (1.8-2.4)
[2023-12-11 08:36] LABS: Troponin I High Sensitivity <4.0 pg/mL (4.0-51.3)
--- NOTE | 2023-12-11 10:59 | PM.HP ---
HPI H&P: HPI History of Present Illness Chief complaint: LOSS OF CONCIOUSNESS, Syncope, Cardiac Arrhythmia Narrative: HPI and Hospital Course: 68-year-old female presents to the ER with her family for evaluation of syncopal episode. The patient was out to eat with her family when she reportedly slumped over for approximately 30 seconds in a seated position. Patient had no prodromal symptoms and did not experience chest pain, SOB, palpitations. Upon regaining consciousness, she was not confused. Patient is very hard of hearing and no meaningful information could be obtained from her. She also does not know sign language. She was recently diagnosed with Stage 4 cervical cancer and was recommended palliative care due to poor prognosis. No abnormal rhythm/sig event on overnight tele monitoring. Recent ECHO 10/01 - no sig cardiac structural abnormality. Normal trop. Normal neurological exam and no weakness/numbness noted. 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 ?C79.9 - Secondary malignant neoplasm of unspecified site (ICD-10) ?C53.9 - Malignant neoplasm of cervix uteri, unspecified (ICD-10) Cervical cancer, FIGO stage IV ?C53.9 - Malignant neoplasm of cervix uteri, unspecified (ICD-10) Postmenopausal bleeding ?N95.0 - Postmenopausal bleeding (ICD-10) CAD (coronary artery disease) ?I25.10 - Atherosclerotic heart disease of [place] coronary artery without angina pectoris (ICD-10) (HFpEF) heart failure with preserved ejection fraction ?I50.30 - Unspecified diastolic (congestive) heart failure (ICD-10) Heart palpitations ?R00.2 - Palpitations (ICD-10) Diastolic dysfunction ?I51.89 - Other ill-defined heart diseases (ICD-10) Lower extremity edema ?R60.0 - Localized edema (ICD-10) Atypical chest pain ?R07.89 - Other chest pain (ICD-10) Dyspnea ?R06.00 - Dyspnea, unspecified (ICD-10) Poor speech ?R47.9 - Unspecified speech disturbances (ICD-10) High cholesterol ?E78.00 - Pure hypercholesterolemia, unspecified (ICD-10) Diabetes ?E11.9 - Type 2 diabetes mellitus without complications (ICD-10) Schizophrenia ?F20.9 - Schizophrenia, unspecified (ICD-10) COPD (chronic obstructive pulmonary disease) ?J44.9 - Chronic obstructive pulmonary disease, unspecified (ICD-10) Psychological disorder ?F99 - Mental disorder, not otherwise specified (ICD-10) Deaf ?H91.90 - Unspecified hearing loss, unspecified ear (ICD-10) Hypertension ?I10 - Essential (primary) hypertension (ICD-10) Incomplete bladder emptying ?R33.9 - Retention of urine, unspecified (ICD-10) Asthma ?J45.909 - Unspecified asthma, uncomplicated (ICD-10) Hydroureter ?N13.4 - Hydroureter (ICD-10) 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 - Other and unspecified doubling of uterus (ICD-10) Thickened endometrium ?R93.89 - Abnormal findings on diagnostic imaging of other specified body structures (ICD-10) 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 ?R87.613 - High grade squamous intraepithelial lesion on cytologic smear of cervix (HGSIL) (ICD-10) Surgical History (Updated 08/15/23 @ 10:19 by Nathalie Hudson NP) History of appendectomy ?Z90.49 - Acquired absence of other specified parts of digestive tract (ICD-10) H/O section ?Z98.891 - History of uterine scar from previous surgery (ICD-10) Family History (Updated 12/10/23 @ 23:17 by Garrison Novak) Father Family history of coronary artery disease Family history of myocardial infarction Mother Family history of coronary artery disease Family history of diabetes mellitus Family history of myocardial infarction Other Family history of hypertension Family history of stroke Kidney disease Social History (Updated 12/10/23 @ 23:19 by Garrison Novak) Within the past year, how often did you have a drink containing alcohol: never Score interpretation: A score less than 3 is consistent with normal alcohol consumption. 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 Known occupational exposures/hazards: No Highest level of school completed/degree received: don't know Are you now , , , , never or living with a partner: In a typical week, how many times do you talk on the telephone with family, friends, or neighbors: 3 or more times per week How often do you get together with friends or relatives: 3 or more times per week Gender Identity: female Meds Home Medications and Allergies Home Medications ?Medication ?Instructions ?Recorded ?Confirmed ?Type acarbose 100 mg tablet 100 mg PO BID 08/15/23 12/11/23 History acetaminophen 500 mg capsule 1,000 mg PO QPM 08/15/23 12/11/23 History albuterol sulfate 90 mcg/actuation 2 inh inhalation Q6H PRN shortness 08/15/23 12/11/23 History aerosol inhaler (ProAir HFA) of breath or wheezing atorvastatin 40 mg tablet 40 mg PO BEDTIME 08/15/23 12/11/23 History cholecalciferol (vitamin D3) 125 125 mcg PO DAILY 08/15/23 12/11/23 History mcg (5,000 unit) capsule famotidine 40 mg tablet 40 mg PO DAILY 08/15/23 12/11/23 History ferrous sulfate 325 mg (65 mg 325 mg PO DAILY 08/15/23 12/11/23 History iron) tablet,delayed release fluticasone propionate 50 2 spray intranasal DAILY PRN 08/15/23 12/11/23 History mcg/actuation nasal allergy symptoms spray,suspension (Allergy Relief (fluticasone)) ipratropium bromide 0.02 % 2.5 ml inhalation Q4H PRN 08/15/23 12/11/23 History solution for inhalation shortness of breath or wheezing lumateperone 42 mg capsule 42 mg PO DAILY 08/15/23 12/11/23 History (Caplyta) magnesium hydroxide 400 mg/5 mL 2,400 mg PO DAILY PRN constipation 08/15/23 12/11/23 History oral suspension (Milk of Magnesia) metformin 1,000 mg tablet 1,000 mg PO BID 08/15/23 12/11/23 History montelukast 10 mg tablet 10 mg PO DAILY 08/15/23 12/11/23 History nitroglycerin 400 mcg/spray 1 spray sublingual Q5M PRN chest 08/15/23 12/11/23 History translingual pain ranolazine 500 mg tablet,extended 500 mg PO BID 08/15/23 12/11/23 History release,12 hr sacubitril 24 mg-valsartan 26 mg 1 tab PO BID 08/15/23 12/11/23 History tablet (Entresto) topiramate 25 mg tablet (Topamax) 25 mg PO DAILY 08/15/23 12/11/23 History trazodone 50 mg tablet 25 mg PO BEDTIME 08/15/23 12/11/23 History dulaglutide 0.75 mg/0.5 mL 0.75 mg subcut QWEEK 11/04/23 12/11/23 History subcutaneous pen injector (Trulicity) ondansetron HCl 4 mg tablet 4 mg PO Q6H PRN nausea and vomiting 11/04/23 12/11/23 History aspirin 81 mg tablet,delayed 81 mg PO DAILY 11/09/23 12/11/23 History release cyanocobalamin (vitamin B-12) 1,000 mcg PO DAILY 11/09/23 12/11/23 History 1,000 mcg tablet medroxyprogesterone 10 mg tablet 10 mg PO DAILY 11/09/23 12/11/23 History furosemide 20 mg tablet 20 mg PO DAILY 12/11/23 12/11/23 History Allergies Allergy/AdvReac Type Severity Reaction Status Date / Time No Known Drug Allergies Allergy Verified 11/08/23 19:42 Exam Constitutional Vital Signs, click to edit/add: Last Vital Signs Temp 96.9 F L 12/10/23 22:55 Pulse 73 12/11/23 08:00 Resp 16 12/11/23 07:00 BP 105/58 12/11/23 05:40 Pulse Ox 98 12/11/23 05:40 O2 Del Method Room Air 12/10/23 22:55 Documenting provider has reviewed patient's vital signs: yes Common normals: no apparent distress General appearance: cooperative Respiratory Common normals: normal respiratory effort and clear to auscultation bilaterally Effort & inspection: able to speak in complete sentences Auscultation: clear to auscultation bilaterally Cardio Common normals: regular rate, S1 normal heart sound and S2 normal heart sound Rate: regular rate Heart sounds: S1 normal and S2 normal GI Common normals: Normal to inspection, nondistended, normoactive bowel sounds present, soft to palpation, non-tender and no hepatosplenomegaly Palpation: soft and no hepatosplenomegaly Extremity Common normals: no clubbing, cyanosis or edema Neuro Common normals: moves all extremities and no focal motor deficits Psych Common normals: mental status grossly normal, denies hallucinations, denies homicidal ideation and denies suicidal ideation Results Labs Labs: Short CBC 12/10/23 Range/Units 18:44 WBC 7.5 (4.0-11.0) 10^3/uL Hgb 8.8 L (12.0-16.0) g/dL Hct 29.5 L (36.0-48.0) % Plt Count 334 (150-450) 10^3/uL BMP 12/10/23 12/11/23 18:44 07:43 Sodium 132 L 136 Potassium 4.1 4.3 Chloride 99 104 Carbon Dioxide 21.8 26.8 BUN 29.0 H 21.0 H Creatinine 1.37 H 1.18 H Glucose 110 H 84 Calcium 8.7 8.7 Liver Function 12/10/23 Range/Units 18:44 Total Bilirubin 0.2 (0.2-1.0) mg/dL AST 13 L (15-37) U/L ALT 19 (14-59) U/L Alkaline Phosphatase 105 (46-116) U/L Albumin 3.0 L (3.4-5.0) g/dL Assessment and Plan Assessment and Plan (1) Syncope: Assessment and Plan: Likely vasovagal after eating meal. No head trauma. Normal Trop. No sig abnormality on EKG. No sig abnormality on ECHO 10/01 Stable for discharge. Qualifiers: Syncope type: vasovagal syncope Qualified Code(s): R55 - Syncope and collapse (2) Cervical cancer, FIGO stage IV: Assessment and Plan: Recommended palliative care by Oncology. Follow up as outpatient. (3) Anemia: Assessment and Plan: Due to chronic blood loss from post menopausal/vaginal bleeding. Hb does not meet the threshold for transfusion. Qualifiers: Anemia type: iron deficiency Iron deficiency anemia type: chronic blood loss Qualified Code(s): D50.0 - Iron deficiency anemia secondary to blood loss (chronic) (4) (HFpEF) heart failure with preserved ejection fraction: Assessment and Plan: Euvolemic. C/w home medications. No CP, SOB. Qualifiers: Heart failure chronicity: chronic Qualified Code(s): I50.32 - Chronic diastolic (congestive) heart failure (5) CAD (coronary artery disease): Assessment and Plan: No acute changes on EKG, negative troponin x 3, no event on tele. No cp, sob, palpitations Qualifiers: Coronary Disease-Associated Artery/Lesion type: [place] artery [place] vs. transplanted heart: [place] heart Associated angina: without angina Qualified Code(s): I25.10 - Atherosclerotic heart disease of [place] coronary artery without angina pectoris (6) Postmenopausal bleeding: Assessment and Plan: Due to cervical cancer. (7) Diabetes: Assessment and Plan: Stable. C/w home medications. Qualifiers: Diabetes mellitus type: type 2 Diabetes mellitus manager terminal insulin use: without manager terminal use Diabetes mellitus complication status: with other specified complication Qualified Code(s): E11.69 - Type 2 diabetes mellitus with other specified complication (8) High cholesterol: Assessment and Plan: C/w statin (9) Hypertension: Assessment and Plan: C/w home medications. BP is stable. Qualifiers: Hypertension type: primary hypertension Qualified Code(s): I10 - Essential (primary) hypertension (10) Deaf: Assessment and Plan: Deaf, does not know sig language. can sometimes read lips and answer the relevant question Qualifiers: Laterality: bilateral Qualified Code(s): H91.93 - Unspecified hearing loss, bilateral Plan Stable for discharge. FOllow up with PCP in one week
[2023-12-11 12:22] LABS: Glucometer 136 mg/dL (74-106)
== END 2023-12-11 13:08 ==
LOC: ER 18:44 → ICU 22:52
PROVIDERS: Personal Emergency Response Attendant; Registered Nurse; Admitting Provider Internal Medicine; Emergency Provider Emergency Medicine Emergency Medical Services; Visit Provider Internal Medicine
DX: R55 Syncope and collapse (principal); C53.9 Malignant neoplasm of cervix uteri, unspecified; D50.0 Iron deficiency anemia secondary to blood loss (chronic); I25.10 Atherosclerotic heart disease of native coronary artery without angina pectoris; N95.0 Postmenopausal bleeding; I11.0 Hypertensive heart disease with heart failure; I50.32 Chronic diastolic (congestive) heart failure; E11.69 Type 2 diabetes mellitus with other specified complication; E78.00 Pure hypercholesterolemia, unspecified; H91.93 Unspecified hearing loss, bilateral; Z79.899 Other long term (current) drug therapy
CPT/HCPCS: 36415; 71045; 71275; 80048; 80053; 83735; 84484; 85025; 85378; 85610; 85730; 86850; 86900; 86901; 93005; 94761; 96360; 96361; 96372; 99285; G0378; Q9967

== ENCOUNTER 2024-01-03 15:08 | Inpatient (IN) | payer MEDICARE, MEDICAID, SELFPAY ==
[2024-01-03] VITALS (17 sets, daily range): BP systolic 93–132; BP diastolic 47–72; PULSE 54–75; TEMP 36.4–36.9; O2SAT 94–97; BMI 68.1; BMI 32.8
--- NOTE | 2024-01-03 15:24 | ED_ITS ---
HPI HPI - General Adult General Chief complaint: Abdominal Pain Stated complaint: Abdominal Pain Time Seen by Provider: 01/03/24 15:15 Source: patient Mode of arrival: ambulance Limitations: no limitations History of Present Illness HPI narrative: Patient presents ED complaining of generalized abdominal pain. She seems to be more tender in the lower abdomen. She does have a history of cervical cancer. She was sent over from alf for Increased abdominal pain that is worsened since today. The patient also reports that she kind of has pain all over. 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 She reports nausea no vomiting. No fever. Vital signs are stable. She is a DNR [facility] arrest. No other complaints at this time Related Data Home Medications ?Medication ?Instructions ?Recorded ?Confirmed acarbose 100 mg tablet 100 mg PO BID 08/15/23 12/11/23 acetaminophen 500 mg capsule 1,000 mg PO QPM 08/15/23 12/11/23 albuterol sulfate 90 mcg/actuation 2 inh inhalation Q6H PRN shortness 08/15/23 12/11/23 aerosol inhaler (ProAir HFA) of breath or wheezing atorvastatin 40 mg tablet 40 mg PO BEDTIME 08/15/23 12/11/23 cholecalciferol (vitamin D3) 125 125 mcg PO DAILY 08/15/23 12/11/23 mcg (5,000 unit) capsule famotidine 40 mg tablet 40 mg PO DAILY 08/15/23 12/11/23 ferrous sulfate 325 mg (65 mg 325 mg PO DAILY 08/15/23 12/11/23 iron) tablet,delayed release fluticasone propionate 50 2 spray intranasal DAILY PRN 08/15/23 12/11/23 mcg/actuation nasal allergy symptoms spray,suspension (Allergy Relief (fluticasone)) ipratropium bromide 0.02 % 2.5 ml inhalation Q4H PRN 08/15/23 12/11/23 solution for inhalation shortness of breath or wheezing lumateperone 42 mg capsule 42 mg PO DAILY 08/15/23 12/11/23 (Caplyta) magnesium hydroxide 400 mg/5 mL 2,400 mg PO DAILY PRN constipation 08/15/23 12/11/23 oral suspension (Milk of Magnesia) metformin 1,000 mg tablet 1,000 mg PO BID 08/15/23 12/11/23 montelukast 10 mg tablet 10 mg PO DAILY 08/15/23 12/11/23 nitroglycerin 400 mcg/spray 1 spray sublingual Q5M PRN chest 08/15/23 12/11/23 translingual pain ranolazine 500 mg tablet,extended 500 mg PO BID 08/15/23 12/11/23 release,12 hr sacubitril 24 mg-valsartan 26 mg 1 tab PO BID 08/15/23 12/11/23 tablet (Entresto) topiramate 25 mg tablet (Topamax) 25 mg PO DAILY 08/15/23 12/11/23 trazodone 50 mg tablet 25 mg PO BEDTIME 08/15/23 12/11/23 dulaglutide 0.75 mg/0.5 mL 0.75 mg subcut QWEEK 11/04/23 12/11/23 subcutaneous pen injector (Trulicity) ondansetron HCl 4 mg tablet 4 mg PO Q6H PRN nausea and vomiting 11/04/23 12/11/23 aspirin 81 mg tablet,delayed 81 mg PO DAILY 11/09/23 12/11/23 release cyanocobalamin (vitamin B-12) 1,000 mcg PO DAILY 11/09/23 12/11/23 1,000 mcg tablet medroxyprogesterone 10 mg tablet 10 mg PO DAILY 11/09/23 12/11/23 furosemide 20 mg tablet 20 mg PO DAILY 12/11/23 12/11/23 Allergies Allergy/AdvReac Type Severity Reaction Status Date / Time No Known Drug Allergies Allergy Verified 11/08/23 19:42 Opioid HPI Opioid Management Most Recent Opioid Data: Last Pain Scale 3 12/11/23 07:00 Last ORT Total Score 2 12/10/23 22:55 Last ORT Risk Category Low Risk 12/10/23 22:55 Review of Systems ROS Status of ROS 10 or more systems reviewed and unremark able except as noted in history and below [facility] Medical History (Updated 01/03/24 @ 17:24 by Thania Alcantara DO) Cardiac arrhythmia ?I49.9 - Cardiac arrhythmia, unspecified (ICD-10) Syncope ?R55 - Syncope and collapse (ICD-10) Anemia ?D64.9 - Anemia, unspecified (ICD-10) Metastasis from cervical cancer ?C79.9 - Secondary malignant neoplasm of unspecified site (ICD-10) ?C53.9 - Malignant neoplasm of cervix uteri, unspecified (ICD-10) Cervical cancer, FIGO stage IV ?C53.9 - Malignant neoplasm of cervix uteri, unspecified (ICD-10) Postmenopausal bleeding ?N95.0 - Postmenopausal bleeding (ICD-10) CAD (coronary artery disease) ?I25.10 - Atherosclerotic heart disease of [place] coronary artery without angina pectoris (ICD-10) (HFpEF) heart failure with preserved ejection fraction ?I50.30 - Unspecified diastolic (congestive) heart failure (ICD-10) Heart palpitations ?R00.2 - Palpitations (ICD-10) Diastolic dysfunction ?I51.89 - Other ill-defined heart diseases (ICD-10) Lower extremity edema ?R60.0 - Localized edema (ICD-10) Atypical chest pain ?R07.89 - Other chest pain (ICD-10) Dyspnea ?R06.00 - Dyspnea, unspecified (ICD-10) Poor speech ?R47.9 - Unspecified speech disturbances (ICD-10) High cholesterol ?E78.00 - Pure hypercholesterolemia, unspecified (ICD-10) Diabetes ?E11.9 - Type 2 diabetes mellitus without complications (ICD-10) Schizophrenia ?F20.9 - Schizophrenia, unspecified (ICD-10) COPD (chronic obstructive pulmonary disease) ?J44.9 - Chronic obstructive pulmonary disease, unspecified (ICD-10) Psychological disorder ?F99 - Mental disorder, not otherwise specified (ICD-10) Deaf ?H91.90 - Unspecified hearing loss, unspecified ear (ICD-10) Hypertension ?I10 - Essential (primary) hypertension (ICD-10) Incomplete bladder emptying ?R33.9 - Retention of urine, unspecified (ICD-10) Asthma ?J45.909 - Unspecified asthma, uncomplicated (ICD-10) Hydroureter ?N13.4 - Hydroureter (ICD-10) 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 - Other and unspecified doubling of uterus (ICD-10) Thickened endometrium ?R93.89 - Abnormal findings on diagnostic imaging of other specified body structures (ICD-10) 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 ?R87.613 - High grade squamous intraepithelial lesion on cytologic smear of cervix (HGSIL) (ICD-10) Surgical History (Updated 08/15/23 @ 10:19 by Nathalie Hudson NP) History of appendectomy ?Z90.49 - Acquired absence of other specified parts of digestive tract (ICD- 10) H/O section ?Z98.891 - History of uterine scar from previous surgery (ICD-10) Family History (Updated 12/10/23 @ 23:17 by Garrison Novak) Father Family history of coronary artery disease Family history of myocardial infarction Mother Family history of coronary artery disease Family history of diabetes mellitus Family history of myocardial infarction Other Family history of hypertension Family history of stroke Kidney disease Social History (Updated 12/10/23 @ 23:19 by Garrison Novak) Within the past year, how often did you have a drink containing alcohol: never Score interpretation: A score less than 3 is consistent with normal alcohol consumption. 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 Known occupational exposures/hazards: No Highest level of school completed/degree received: don't know Are you now , , , , never or living with a partner: In a typical week, how many times do you talk on the telephone with family, friends, or neighbors: 3 or more times per week How often do you get together with friends or relatives: 3 or more times per week Gender Identity: female Exam Narrative Exam Narrative: Time Seen: [] Vital Signs: [Per nurse's notes.] General: [Alert] Skin: [Warm, dry, no rash.] Head: [Normocephalic, atraumatic.] Neck: [Supple, trachea midline.] Eye: [Pupils are equal, round and reactive to light, extraocular movements are intact, normal conjunctiva.] Ears, nose, mouth and throat: oral mucosa moist. Cardiovascular: [Regular rate and rhythm, no murmur.] Respiratory: [Lungs are clear to auscultation, respirations are non-labored, breath sounds are equal.] Chest wall: [No tenderness, no deformity.] Gastrointestinal: [Soft, Mild generalized lower abdominal pain, non distended, normal bowel sounds.] MSK: 5 out of 5 muscle strength x 4 extremities no calf pain or edema Lymphatics: [No lymphadenopathy.] Psychiatric: [Cooperative, appropriate mood & affect.] Neurological: [Alert and oriented to person, place, time, and situation, no foc al neurological deficit observed.] Constitutional Vital Signs, click to edit/add: Last Vital Signs Temp 98.5 F 01/03/24 15:09 Pulse 64 01/03/24 15:09 Resp 16 01/03/24 15:09 BP 132/66 01/03/24 15:09 Pulse Ox 96 01/03/24 15:09 Course Vital Signs Vital signs: Vital Signs Temperature 98.5 F 01/03/24 15:09 Pulse Rate 64 01/03/24 15:09 Respiratory Rate 16 01/03/24 15:09 Blood Pressure 132/66 01/03/24 15:09 Pulse Oximetry 96 01/03/24 15:09 Temperature 98.5 F 01/03/24 15:09 Pulse Rate 64 01/03/24 15:09 Respiratory Rate 16 01/03/24 15:09 Blood Pressure 132/66 01/03/24 15:09 Pulse Oximetry 96 01/03/24 15:09 Medical Decision Making MDM Narrative Medical decision making narrative: Patient will be admitted for anemia. Hemoglobin 6.9. 2 units of packed RBCs were ordered. Patient also has hydronephrosis and hydroureter which has been an issue for her in the past although could be worsening now. She also has chronic renal disease. Patient will be admitted to Dr. Bills, most likely urology consult, she is getting blood transfusion. Patient and family, the son is here who is the POA they are comfortable with care plan for admission. Patient stable in ED Differential Diagnosis Differential Diagnosis: Anemia, GI bleed, renal failure, electrolyte abnormality Medical Records Medical records reviewed: Yes I reviewed the patient's medical records Lab Data Lab results reviewed: Yes I reviewed the patient's lab results Labs: Lab Results 01/03/24 01/03/24 Range/Units 15:33 15:53 WBC 7.9 (4.0-11.0) 10^3/uL RBC 2.53 L (4.20-5.40) 10^6/uL Hgb 6.9 L* (12.0-16.0) g/dL Hct 23.5 L* (36.0-48.0) % MCV 92.9 (81.0-99.0) fL MCH 27.3 (26.7-34.0) pg MCHC 29.4 L (29.9-35.2) g/dL RDW 16.9 H (11.0-15.0) % Plt Count 362 (150-450) 10^3/uL MPV 8.7 L (9.5-13.5) fL Neut % (Auto) 66.9 (43.0-75.0) % Lymph % (Auto) 16.7 L (20.5-60.0) % [place] % (Auto) 13.3 H (1.7-12.0) % Eos % (Auto) 2.3 (0.9-7.0) % Baso % (Auto) 0.3 (0.2-2.0) % Neut # (Auto) 5.3 (1.4-6.5) 10^3/uL Lymph # (Auto) 1.3 (1.2-3.8) 10^3/uL [place] # (Auto) 1.1 H (0.3-0.8) 10^3/uL Eos # (Auto) 0.2 (0.0-0.7) 10^3/uL Baso # (Auto) 0.0 (0.0-0.1) 10^3/uL Abs Immat Gran (auto) 0.04 H (0.00-0.03) 10^3/uL Imm/Tot Granulo (auto) 0.5 (0.0-0.5) % Sodium 136 (136-145) mmol/L Potassium 4.5 (3.5-5.1) mmol/L Chloride 103 (98-107) mmol/L Carbon Dioxide 26.4 (21.0-32.0) mmol/L Anion Gap 11.1 BUN 20.0 H (7.0-18.0) mg/dL Creatinine 1.78 H (0.55-1.02) mg/dL Est GFR ( Amer) 34 L (>=60) Est GFR (Non-Af Amer) 28 L (>=60) BUN/Creatinine Ratio 11.2 Glucose 91 (74-106) mg/dL Calcium 8.6 (8.5-10.1) mg/dL Total Bilirubin 0.2 (0.2-1.0) mg/dL AST 13 L (15-37) U/L ALT 17 (14-59) U/L Alkaline Phosphatase 82 (46-116) U/L Total Protein 5.7 L (6.4-8.2) g/dL Albumin 2.9 L (3.4-5.0) g/dL Globulin 2.8 g/dL Albumin/Globulin Ratio 1.0 POC Glucose 75 (74-106) mg/dL Blood Type O Positive Antibody Screen Negative Crossmatch See Detail Imaging Data CT scan - abdomen: Radiologist's impression: ITS Impressions Abdomen/Pelvis CT 01/03/24 16:09 IMPRESSION: Moderate to severe right and moderate left hydronephrosis and hydroureter without calcified obstructing ureteral stone. There are several focal areas with bladder thickening including the bilateral UVJ suspicious for neoplasm. Recommend cystoscopy for further evaluation. Electronically authenticated by: DEWEY YING Date: 01/03/2024 17:02 Discharge Plan Discharge Chief Complaint: Abdominal Pain Clinical Impression: Anemia Hydronephrosis Qualifiers: Hydronephrosis type: with other ureteral stricture Qualified Code(s): N13.1 - Hydronephrosis with ureteral stricture, not elsewhere classified Patient Disposition: Admitted As Inpatient Time of Disposition Decision: 17:24 Condition: Fair Prescriptions / Home Meds: No Action Trulicity 0.75 mg/0.5 mL pen injector 0.75 mg SUBCUT QWEEK ondansetron HCl 4 mg tablet 4 mg PO Q6H PRN (Reason: nausea and vomiting) cyanocobalamin (vitamin B-12) 1,000 mcg tablet 1,000 mcg PO DAILY medroxyprogesterone 10 mg tablet 10 mg PO DAILY aspirin 81 mg tablet,delayed release (DR/EC) 81 mg PO DAILY furosemide 20 mg tablet 20 mg PO DAILY acarbose 100 mg tablet 100 mg PO BID acetaminophen 500 mg capsule 1,000 mg PO QPM atorvastatin 40 mg tablet 40 mg PO BEDTIME Caplyta 42 mg capsule 42 mg PO DAILY Entresto 24-26 mg tablet 1 tab PO BID famotidine 40 mg tablet 40 mg PO DAILY ferrous sulfate 325 mg (65 mg iron) tablet,delayed release (DR/EC) 325 mg PO DAILY metformin 1,000 mg tablet 1,000 mg PO BID montelukast 10 mg tablet 10 mg PO DAILY ranolazine 500 mg tablet extended release 12 hr 500 mg PO BID topiramate [Topamax] 25 mg tablet 25 mg PO DAILY trazodone 50 mg tablet 25 mg PO BEDTIME cholecalciferol (vitamin D3) 125 mcg (5,000 unit) capsule 125 mcg PO DAILY albuterol sulfate [ProAir HFA] 90 mcg/actuation HFA aerosol inhaler 2 inh inhalation Q6H PRN (Reason: shortness of breath or wheezing) fluticasone propionate [Allergy Relief (fluticasone)] 50 mcg/actuation spray,suspension 2 spray intranasal DAILY PRN (Reason: allergy symptoms) Rx Instructions: administer into each nostril ipratropium bromide 0.02 % solution 2.5 ml inhalation Q4H PRN (Reason: shortness of breath or wheezing) magnesium hydroxide [Milk of Magnesia] 400 mg/5 mL suspension 2,400 mg PO DAILY PRN (Reason: constipation) nitroglycerin 400 mcg/spray spray,non-aerosol 1 spray sublingual Q5M PRN (Reason: chest pain) Rx Instructions: do not exceed 3 doses per episode Print Language: Slovak Referrals: Physician,Non-Staff, [Physician] - 1 week
[2024-01-03] MEDS: ONDANSETRON PF 4 MG/2 ML VIAL IV ×2 (15:31→23:51)
[2024-01-03 15:52] LABS: Basophils Percent Auto 0.3 % (0.2-2.0); Eosinophils Absolute Auto 0.2 10^3/uL (0.0-0.7); Eosinophils Percent Auto 2.3 % (0.9-7.0); Immature Granulocytes Abs Auto 0.04 10^3/uL (0.00-0.03); Immature Granulocytes Pct Auto 0.5 % (0.0-0.5); Lymphocytes Absolute Auto 1.3 10^3/uL (1.2-3.8); Lymphocytes Percent Auto 16.7 % (20.5-60.0); Mean Corpuscular HGB Conc 29.4 g/dL (29.9-35.2); Mean Corpuscular Hemoglobin 27.3 pg (26.7-34.0); Mean Corpuscular Volume 92.9 fL (81.0-99.0); Mean Platelet Volume 8.7 fL (9.5-13.5); Monocytes Absolute Auto 1.1 10^3/uL (0.3-0.8); Monocytes Percent Auto 13.3 % (1.7-12.0); Neutrophils Absolute Auto 5.3 10^3/uL (1.4-6.5); Neutrophils Percent Auto 66.9 % (43.0-75.0); Platelet Count 362 10^3/uL (150-450); Red Blood Count 2.53 10^6/uL (4.20-5.40); Red Cell Distribution Width 16.9 % (11.0-15.0); White Blood Count 7.9 10^3/uL (4.0-11.0)
[2024-01-03 15:59] LABS: Hematocrit 23.5 % (36.0-48.0); Hemoglobin 6.9 g/dL (12.0-16.0)
[2024-01-03 16:00] LABS: Alanine Aminotransferase 17 U/L (14-59); Albumin Level 2.9 g/dL (3.4-5.0); Alkaline Phosphatase 82 U/L (46-116); Anion Gap 11.1; Aspartate Amino Transferase 13 U/L (15-37); BUN Creatinine Ratio 11.2; Bilirubin Total 0.2 mg/dL (0.2-1.0); Calcium 8.6 mg/dL (8.5-10.1); Carbon Dioxide 26.4 mmol/L (21.0-32.0); Chloride 103 mmol/L (98-107); Estimated GFR (African America 34 (>=60); Estimated GFR (Non-African Ame 28 (>=60); Globulin 2.8 g/dL; Glucose 91 mg/dL (74-106); Potassium 4.5 mmol/L (3.5-5.1); Sodium 136 mmol/L (136-145); Total Protein 5.7 g/dL (6.4-8.2)
--- NOTE | 2024-01-03 16:09 | CT_ITS ---
[address] [address] Patient Name: STEVE JOHNSON MRN: [facility]:[id number] date: 1955 Sex: F Assigned Patient Location: ER Current Patient Location: ED.MAIN Accession/Order Number: [id number] Exam Date: 01/03/2024 16:28 Report Date: 01/03/2024 17:02 At the request of: SARA OBRIEN Procedure: CT abdomen pelvis wo con CT ABDOMEN/PELVIS WITHOUT IV CONTRAST. INDICATION: pain, anemia COMPARISON: 06/06/2023 TECHNIQUE: Contiguous axial images were obtained from the lung bases to the pelvic floor without intravenous or oral contrast. Coronal and sagittal reformations are provided. FINDINGS: LOWER LUNGS: Clear. LIVER/BILIARY TREE: No discrete lesion. No intrahepatic ductal dilatation. GALLBLADDER: No significant gallbladder wall thickening. No radiopaque stone. CBD: Normal CBD. SPLEEN: Normal in size. PANCREAS: No appreciable peripancreatic fluid. No pancreatic ductal dilatation. No discrete lesion. ADRENALS: Normal. KIDNEYS: There is moderate to severe right and moderate left hydronephrosis and hydroureter without calcified obstructing ureteral stone. There were several focal areas with bladder thickening including the bilateral UVJ . No calcified renal stone. STOMACH AND BOWEL: Redemonstrated large hiatal hernia. No dilated bowel loops. No bowel wall thickening. APPENDIX: Not visualized. PERITONEAL CAVITY: No fluid. No fat stranding. ABDOMINAL WALL: No subcutaneous stranding. No subcutaneous fluid collection. LYMPH NODES: No mesenteric or retroperitoneal lymphadenopathy by CT criteria. ABDOMINAL AORTA: No aneurysm. PELVIS: There are areas with focal bladder thickening. MUSCULOSKELETAL: No acute osseous abnormality. CT/CT abdomen pelvis wo con IMPRESSION: Moderate to severe right and moderate left hydronephrosis and hydroureter without calcified obstructing ureteral stone. There are several focal areas with bladder thickening including the bilateral UVJ suspicious for neoplasm. Recommend cystoscopy for further evaluation. Electronically authenticated by: DEWEY YING Date: 01/03/2024 17:02
[2024-01-03 16:12] LABS: Glucometer 75 mg/dL (74-106)
--- OUTSIDE RECORDS SUMMARY | 2024-01-03 16:19 | XMS_ITS | CCD ---
Author Organization [facility] ion [facility] Care Team Providers Care Traffic Attendant Name Role Phone MARKER, DR SALINAS Consulting [...] CRESPO Attending Unavailable KOBE CRESPO Attending Unavailable Ander Langley DO Primary Care Provider Unavailable Primary Care Provider UnavailANDER Lance Primary Care Unavailable JAYASHREE AVILEZ Admitting Unavailable JAYASHREE AVILEZ Attending Unavailable YSABEL DUQUE Referring Unavailable ANDER LANGLEY Primary Care Unavailable LYLE, SAYEEMA Yarelis Referring Unavailable EL AHMADI Attending Unavailable LAISHA COBURN Attending Unavailable GALDINO, EL Referring Unavailable GALDINO EL Referring Unavailable GUERDA AGUILAR Attending Unavailable GUERDA AGUILAR Attending Unavailable GUERDA AGUILAR Attending Unavailable REBECCA GALEANO Attending Unavailable GUERDA AGUILAR Attending Unavailable Eloisa Crespoy Admitting Unavailable Kobe Crespo Attending Unavailable Pamela Benson Attending Unavailable Kobe CRESPO R Referring Unavailable Pamela Benson Attending Unavailable Pamela Benson Admitting Unavailable Edmond KUHN Attending Unavailable Pamela Benson Attending Unavailable Medications Current Medications Medication Drug Class(es) Dates Sig (Normalized) Sig (Original) acarbose 50 mg oral tablet (8 sources) alpha-Glucosidase Inhibitor Start: 11-10-2023 acarbose (PRECOSE) tablet 100 mg Start: 04-03-2023 take 1 tablet by aquilino th twice daily acarbose (PRECOSE) 100 mg tablet Take 1 tablet by mouth two times a day. 0 04/03/2023 Active acetaminophen 500 mg oral ta blet (8 sources) Start: 11-10-2023 acetaminophen (TYLENOL) tablet 1,000 mg Start: 08-03-2023 acetaminophen Refills(s) 0 Start Date: 08/03/23 Status: Ordered Start: 05-20-2023 take 1 tablet by aquilino th every eight hours as needed acetaminophen (TYLENOL) 500 mg tablet Take 1 tablet by mouth every 8 hours as needed. 0 05/20/2023 Active [id number] 200 actuat albuterol 0.09 mg/actuat metered dose inhaler (8 sources) beta2-Adrenergic Agonist Start: 04-22-2023 albut sherly [...] / magnesium hydroxide 40 mg/ml oral suspension (4 sources) aluminum-magnesi um hydroxide (MAG-AL) 200-200 mg/5 mL suspension Take 5 mL by mouth. 0 Active aluminum hydroxide 40 mg/ml / magnesium hydroxide 40 mg/ml / simethicone 4 mg/ml oral suspension (4 sources) Start: 10-01-2023 aluminum-magne sium hydroxide-simethicon e 200-200-20 mg/5 mL suspension aspirin 81 mg oral tablet (7 sources) Platelet Aggregation Inhibitor, Nonsteroidal Anti-inflammatory Drug Start: 08-03-2023 aspirin 81 mg cap Take 81 mg by mouth. 0 08/03/2023 Active Start: 08-03-2023 aspirin Refill s(s) 0 Start Date: 08/03/23 Status: Ordered atorvastatin 40 mg oral tablet (7 sources) HMG-CoA Reductase Inhibitor Start: 05-15-2023 take 1 tablet by mouth once daily in the evening atorvastatin (LIPITOR) 40 mg tablet Take 1 tablet by mouth every evening. 0 05/15/2023 Active Baclofen (3 sources) gamma-Aminobutyric Acid-ergic Agonist Start: 08-03-2023 BACLOFEN 20 MG TABLET BACLOFEN 20 MG TABLET, As Directed Start Date: 08/03/23 Status: Ordered cholecalciferol 0.125 mg oral tablet (4 sources) Vitamin D Start: 08-08-2023 cholecalciferol (VITAMIN [...] Ordered 0.5 ml dulaglutide 1.5 mg/ml auto-injector (4 sources) GLP-1 Receptor Agonist Start: 06-09-2023 TRULICITY 0.75 mg/0.5 mL pen injector famotidine 40 mg oral tablet (7 sources) Histamine-2 Receptor Antagonist Start: 04-24-2023 famotidine (PEPCID) 40 mg tablet Refills(s) 0 0 04/24/2023 Active ferrous sulfate 325 mg oral tablet (7 sources) Start: 05-08-2023 ferrous sulfate 325 mg (65 mg iron) tablet Take 325 mg by mouth. 0 05/08/2023 Active fluticasone propionate 0.05 mg/actuat metered dose nasal spray (5 sources) Corticosteroid Start: 11-10-2023 fluticasone (FLONASE) 50 MCG/ACT nasal spray 2 spray fluticasone (ALISSA NASE) 50 mcg/actuation nasal spray 1 [place] once daily. 0 Active furosemide 20 mg oral tablet (4 sources) Loop Diuretic Start: 09-23-2023 End: 11-20-2024 [...] 16 g hydrocortisone 25 mg/ml topical cream (4 sources) Corticosteroid Start: 04-26-2023 hydrocortisone (ANUSOL-HC) 2.5 % rectal cream insulin lispro 100 unt/ml injectable solution (1 source) Insulin Analog Start: 11-10-2023 insulin lispro (HUMALOG) injection vial 0-10 Units ipratropium bromide 0.2 mg/ml inhalation solution (4 sources) Anticholinergic ipratropium (ATROVENT) 0.02 % nebulizer solution Take by nebulization every 6 (six) hours 0 Active lumateperone 42 mg oral capsule (8 sources) Start: 05-01-2023 take 1 capsule by mouth once daily CAPLYTA 42 mg capsule Take 1 capsule by mouth once daily. 0 05/01/2023 Active magnesium hydroxide 80 mg/ml oral suspension (4 sources) magnesium hydrox miguel angel (MOM) 400 mg/5 mL suspension Take 30 mL by mouth. 0 Active menthol 0.05 mg/mg topical gel (4 sources) menthol (BIOFREE ZE, MENTHOL,) 5 % topical gel Apply 5 % to affected area. 0 Active metFORMIN hydrochloride 1000 mg oral tablet (7 sources) Biguanide Start: 05-01-2023 metFORMIN (GLUCOPHAGE) 1,000 mg tablet Take 1,000 mg by mouth. 0 05/01/2023 Active montelukast 10 mg oral tablet (8 sources) Leukotriene Receptor Antagonist Start: 05-21-2023 montelukast (SINGULAIR) 10 mg tablet Refills(s) 0 0 05/21/2023 Active nitroglycerin 0.4 mg sublingual tablet (1 source) Nitrate Vasodilator Start: 11-10-2023 nitroGLYCERIN (NITROSTAT) SL tablet 0.4 mg OLANZapine 10 mg oral tablet (3 sources) Atypical Antipsychotic Start: 07-22-2012 take 1 tablet by mouth once daily ZyPREXA 10 mg Tab 10 mg = 1 tab(s), Oral, Daily, # 30 tab(s), Refills(s) 0 Start Date: 07/22/12 Status: Ordered ondansetron 4 mg disintegrating oral tablet (4 sources) Serotonin-3 Receptor Antagonist Start: 09-28-2023 ondansetron [...] Ordered pseudoephedrine hydrochloride 30 mg oral tablet (4 sources) alpha-Adrenergic Agonist Start: 04-17-2023 take 1 [...] ranolazine 500 mg extended release oral tablet (4 sources) Anti-anginal Start: 04-19-2023 take 1 tablet by mouth twice daily ranolazine ER (RANEXA) 500 mg 12 hr tablet Take 1 tablet by mouth two times a day. 0 04/19/2023 Active sacubitril 24 mg / valsartan 26 mg oral tablet (8 sources) Angiotensin 2 Receptor Man Start: 11-10-2023 sacubitril-valsarta n (ENTRESTO) 24-26 MG per tablet 1 tablet Start: 08-03-2023 Entresto 24 mg -26 mg oral tablet Refill(s) 0 Start Date: 08/03/23 Status: Ordered Start: 05-15-2023 take 1 tablet by aquilino twice daily sacubitril-valsartan (ENTRESTO) 24-26 mg tablet Take 1 tablet by mouth two times a day. 0 05/15/2023 Active sennosides, assisted 8.6 mg oral tablet (1 source) Start: 11-10-2023 senna (SENOKOT ) tablet 17.2 mg topiramate 25 mg oral tablet (5 sources) Start: 05-08-2023 topiramate (TO PAMAX) 25 mg tablet traMADol hydrochloride 50 mg oral tablet (3 sources) Opioid Agonist Start: 09-23-2011 take 1 tablet by mouth once daily Ultram 50 mg, Oral, Daily, tab(s), Refills(s) 0 Start Date: 09/23/11 Status: Ordered traZODone hydrochloride 50 mg oral tablet (4 sources) Serotonin Reuptake Inhibitor Start: 05-08-2023 traZODone (DESYREL) 50 mg tablet vitamin b12 1 mg oral tablet (4 sources) Vitamin B12 Start: 04-30-2023 take 1 [...] sources) Asthma 04-17-2012 Chronic Cancer of cervix (7 sources) Overlapping malignant neoplasm of uterine cervix; [...] source) Long-term current use of aspirin; 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] Onset: 4 [...] Value Interpretation Reference Range Facility Consultation Noteon 12-27-19 Consultation Note [id number] FF Normal [facility] Pathology Noteon 12-27-2023 Pathology Note [id number] IFF Normal [facility] RAD - Nuclear Medicine Repor ton 12-27-2023 RAD - Nuclear Medicine Report [id number] IFF Normal [facility] Office Visiton 12-16-2023 Follow-up visit [id number] Kelby Johnson 1955 F Date Provider Department Center 12/16/2023 [facility]8-GUERDA AGUILAR CELESTE [facility] Family History Problem Relation Age of Onset Coronary artery disease Mother Cancer Father Diabetes Father Family Status - Relation Status Age at Mother Father Level of Service:14141 [place] OFFICE/OUTPATIENT ESTABLISHED LOW MDM 20 MIN Normal [facility] Operative Reporton Operative Report [id number] [facility] (RADTSA) CANDIS JOHNSON ([id number]) 1955 F DEF Date Time Provider Department 12/08/23 EL AHMADI During your visit today, we recorded the following information about you: Mecca Boyle LPN 12/08/2023 11:17 AM Signed Yumiko: Please cancel Candis's SIM scheduled 12/09/[address] Ahmadi. Patient's PET scan shows metastatic disease and patient will proceed with chemotherapy per Dr. Gleaosn. Landen, pt's son and POA, notified of the cancelled appointment. He states Dr. Coburn called and notified him of the above. Candis has follow up scheduled with Dr. Gleason today. PET report and images will be forwarded to Dr. Gleason and Dr. Avilez once resulted. Pati: Please send PET images and report to Dr. Gleason and Dr. Avilez. PARAG Aguilar, Yumiko 12/08/2023 11:19 AM Signed Cancelled appointment. Skylar Harris 12/08/2023 1:10 PM Signed Report faxed to Dr. Gleason and Dr. Avilez. Images pushed to [facility]. Allergies As of Date: 12/08/2023 (No Known Allergies) Date Reviewed: 12/07/2023 Reviewed by: Roxane Rucker OCCA - Fully Assessed Reason for Visit: Patient Update [1234] Prescriptions as of 12/08/2023 - atorvastatin (LIPITOR) 40 mg tablet Take 1 tablet by mouth every evening. - aspirin 81 mg cap Take 81 mg by mouth. - TRULICITY 0.75 mg/0.5 mL pen injector - cholecalciferol (VITAMIN D3) 5,000 unit tab - acarbose (PRECOSE) 100 mg tablet Take 1 tablet by mouth two times a day. - acetaminophen (TYLENOL) 500 mg tablet Take 1 tablet by mouth every 8 hours as needed. - CAPLYTA 42 mg capsule Take 1 capsule by mouth once daily. - sacubitril-valsartan (ENTRESTO) 24-26 mg tablet Take 1 tablet by mouth two times a day. - famotidine (PEPCID) 40 mg tablet Refills(s) 0 - ferrous sulfate 325 mg (65 mg iron) tablet Take 325 mg by mouth. - furosemide (LASIX) 20 mg tablet Take 1 tablet by mouth once daily. - metFORMIN (GLUCOPHAGE) 1,000 mg tablet Take 1,000 mg by mouth. - montelukast (SINGULAIR) 10 mg tablet Refills(s) 0 - ranolazine ER (RANEXA) 500 mg 12 hr tablet Take 1 tablet by mouth two times a day. - topiramate (TOPAMAX) 25 mg tablet - traZODone (DESYREL) 50 mg tablet - cyanocobalamin (VITAMIN B-12) 1,000 mcg tab Take 1 tablet by mouth once daily. - albuterol HFA (PROVENTIL HFA, VENTOLIN HFA) 90 mcg/actuation inhaler Inhale 2 Puffs as instructed. - ondansetron orally disintegrating (ZOFRAN ODT) 4 mg disintegrating tablet - aluminum-magnesium hydroxide (MAG-AL) 200-200 mg/5 mL suspension Take 5 mL by mouth. - ipratropium (ATROVENT) 0.02 % nebulizer solution Take by nebulization every 6 (six) hours - hydrocortisone (ANUSOL-HC) 2.5 % rectal cream - fluticasone (FLONASE) 50 mcg/actuation nasal spray 1 [place] once daily. - magnesium hydroxide (MOM) 400 mg/5 mL suspension Take 30 mL by mouth. - menthol (BIOFREEZE, MENTHOL,) 5 % topical gel Apply 5 % to affected area. - aluminum-magnesium hydroxide-simethicone 200-200-20 mg/5 mL suspension - pseudoephedrine (SUDAFED) 30 mg tablet Take 30 mg by mouth every 4 hours as needed. Problem List As Of Date: 12/08/2023 (None) Encounter Status:Closed by MECCA BOYLE on 12/08/23 [facility] CNOVigor 12-07-2023 CNOV Office Visit (RADTMN ) CANDIS JOHNSON ([id number]) 1955 F DEF Date Time Provider Department 12/07/23 10:00 AM ALMAS, LAISHA MILVIA RADTMN During your visit today, we recorded the following information about you: Pulse Respiration Blood pressure Weight 78/minute 17/minute 98/51 83.6 kg Laisha Coburn MD 12/15/2023 3:10 PM Signed Radiation Oncology - New Patient/Consult Note PATIENT NAME: Candis Johnson PATIENT REQUESTING PROVIDER: Dr. Jayashree Avilez, Dr. Abisai Gleason, and Dr. El Ahmadi. 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 Cancer Staging No matching staging information was found for the patient. HPI: 68 year old female with above diagnosis, who presents for an opinion regarding the role of radiation therapy in the management of the patient's disease. Final recommendations will be communicated back to the requesting physician by way of the shared medical record, or letter to requesting physician via [place] mail. Ms. Johnson's oncologic history dates back to May 2023 when she presented to Dr. Crespo in [place] from her nursing facility with symptoms of post-menopausal bleeding and rectal bleeding. She underwent an exam and pap smear at that time, which showed LG-HARSH. She underwent colposcopy on 07/05/2023 and biopsies showed HGSIL. She was recommended to undergo EUA, DANDC and possible LEEP in August, but this procedure was delayed due to pre-operative clearance for possible cardiac issues. She was eventually cleared and underwent this procedure on 11/10/[address] Jayashree Avilez including hysteroscopy, cervical biopsy, and cystoscopy (pathology below). ON exam, she noted a fixed cervical mass with bilateral parametrial involvement with fixation to the R pelvic sidewall. She was referred to Drs. Gleason (med onc) and Galdino (rad onc) for definitive chemo-radiation therapy and referred to me for discussion of brachytherapy. She underwent staging PET-CT on 12/02/2023 that was not yet read at the time of our visit, but on my review showed several hypermetabolic nodes in the RP, thoracic and L supraclavicular area that are suspicious for distant metastases. At this visit, Ms. Johnson notes that overall she is feeling well. 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 She lives in a nursing facility and has apparently been doing ok and eating fairly well. She has required blood transfusion for her bleeding. No other issues at this time. Pathology (11/10/2023): -- Diagnosis -- A. LEFT CERVIX, BIOPSY: -INVASIVE SQUAMOUS CELL CARCINOMA. -BACKGROUND HIGH-GRADE SQUAMOUS EPITHELIAL LESION (SUDHA-3). B. RIGHT VAGINAL CERVIX, BIOPSY: -PIECES OF SQUAMOUS MUCOSA WITH HIGH-GRADE SQUAMOUS EPITHELIAL LESION (SUDHA 3/VaIN 3). -NO DEFINITIVE INVASION IDENTIFIED. C. LEFT MONS SKIN LESION, BIOPSY: -SEBORRHEIC KERATOSIS. MRI Pelvis (11/10/2023): Impression 1. A 5.9 x 3.8 cm enhancing mass within the cervix extending into the lower uterine segment is highly suspicious for cervical cancer and there isextension into the bilateral parametria with apparent invasion [...] left greater than right, is likely metastatic. PET-CT (12/02/2023): IMPRESSION: FDG avid supraclavicular, intrathoracic, and abdominal/pelvic lymphadenopathy, suspicious for metastases although the intrinsic high attenuation is unusual. Inflammatory etiologies (e.g. sarcoidosis) is a differential consideration for some of the marina disease. HEAD/NECK: * FDG avid left supraclavicular lymphadenopathy. CHEST: * FDG avid intrathoracic lymphadenopathy. ABDOMEN/PELVIS: * FDG cervical neoplasm associated with moderate right hydroureteronephrosis. * FDG avid abdominal and pelvic lymphadenopathy. MUSCULOSKELETAL: * No FDG avid neoplastic process. ALLERGIES No Known Allergies PAST MEDICAL HISTORY Diagnosis Date Amnesia memory loss Asthma Back muscle spasm Bipolar disorder (HCC) Cervical cancer (HCC) COPD (chronic obstructive pulmonary disease) (HCC) Diabetes mellitus (HCC) Diaphragmatic hernia Gastrointestinal tract hemorrhage Hearing loss HTN (hypertension) Iron deficiency anemia Schizophrenia (HCC) Prior radiation therapy, collagen vascular disease, or inflammatory bowel disease: No Any implanted or external electric devices? No status: Post-menopausa (more content not included)... [facility] Consultation Noteon 12-02-19 Consultation Note [id number] FF Normal [facility] PET/CT SKULL-THIGH INITon 12-02-2023 NM PET/CT SKULL-THIGH INIT * * *Final Report* * * DATE OF EXAM: Dec 02 2023 2:55PM NRN [id number] - NM PET/CT SKULL-THIGH INIT / PROCEDURE REASON: 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) * * * * Physician Interpretation * * * * RESULT: EXAMINATION: BODY FDG PET-CT CLINICAL HISTORY: 68 year old Female with recently diagnosed cervical cancer. INDICATION: Initial treatment strategy. TECHNIQUE: Radiopharmaceutical was administered IV followed about 60 minutes later by PET imaging from eyes to proximal thighs. Free breathing, low dose CT of the same body region was acquired without IV contrast for attenuation correction and anatomic localization. * CT Dose-Length Product (DLP): 258 mGy*cm * CT Dose Reduction Employed: Yes * Blood glucose (mg/dL): 97 * Radiopharmaceutical Dose: 9.7 mCi * Radiopharmaceutical: [id number] (FDG) COMPARISON: No previous FDG PET/CT available CORRELATION: OS MRI pelvis 11/10/2023; OS CT abdomen/pelvis 06/06/2023 RESULT: REFERENCES: SUV reference values: * Blood pool (descending aorta) activity: SUVmax 3.0 * Background liver activity: SUVmax 3.3 Bariatric Coordinator (topogram) images: No additional findings. Notes and limitations: * Standardized uptake values indicate the highest activity concentration (SUVmax) at a given location but can be variable and are not absolute. * Physiologic/non-neoplas tic uptake is common in the brain, extraocular muscles, oral cavity, tonsils, salivary glands, vocal cords, myocardium, liver, GI tract, urinary tract, and bone marrow among others. Certain regions and organ systems can have more intense uptake, which could confound or obscure some pathology. * Unenhanced imaging is limited for the evaluation of some pathology and the acquired CT was not designed to produce or replace diagnostic CT scan quality. * PET-CT is often not sensitive for pulmonary nodules less than 8 mm. HEAD AND NECK: Imaged Head: No suspicious uptake. Mild uptake in the right maxillary sinus is likely inflammatory. Neck and Lymph Nodes: Few tracer avid enlarged left supraclavicular nodes, many with intrinsic attenuation. Activity persists on uncorrected images. For example: * 1.1 cm node (4:62; SUVmax 5.2) Thyroid: No abnormal uptake. CHEST: Lungs and Airways: No abnormal uptake. Pleura and Pericardium: No abnormal uptake. Cardiovascular: No abnormal uptake. Mediastinum and Lymph Nodes: Multiple enlarged tracer avid intrathoracic nodes, many with intrinsic high attenuation. Activity persists on uncorrected images. Stations include retrocrural, paraesophageal, paravertebral, prevascular, lower cervical regions. For example: 1.1 cm left prevascular node (4:90; SUVmax 3.6) 1.2 cm right retrocrural node (4:49; SUVmax 3.4) ABDOMEN AND PELVIS: Hepatobiliary: No abnormal uptake. Spleen: No abnormal uptake. No splenomegaly. Pancreas: No abnormal uptake. Adrenals: No abnormal uptake. Urinary Tract: No abnormal uptake. Slightly worsened moderate right hydronephrosis to the level of the cervical mass. GI Tract: Segmental areas of increased bowel uptake are most likely physiologic or medication related (e.g. metformin). No definable abnormal uptake. Moderate hiatal hernia. No dilated bowel. Peritoneum: No definable abnormal uptake. Vasculature: No abnormal uptake. Atherosclerotic calcifications without an abdominal aortic aneurysm. Retroperitoneum and Lymph Nodes: Multiple enlarged and subcentimeter tracer avid upper abdominal, retroperitoneal, and bilateral pelvic lymph nodes, many with intrinsic attenuation. Activity persists on uncorrected images. For example: * 1.0 cm left periaortic node (4:88; SUVmax 6.6) * 1.2 cm cm left external iliac node (4:256; SUVmax 4.9) Pelvis: Ill-defined tracer avid cervical mass involving the uterus, upper vagina, and at least the right parametrium where there is associated hydroureteronephrosis (SUVmax 13.9). Local staging better evaluated on recent MRI. Central uterine photopenia corresponding with persistent endometrial dilation. MUSCULOSKELETAL: Osseous: No abnormal uptake. Degenerative changes. Soft Tissues: No abnormal uptake. IMPRESSION: FDG avid supraclavicular, intrathoracic, and abdominal/pelvic lymphadenopathy, suspicious for metastases although the intrinsic high attenuation is unusual. Inflammatory etiologies (e.g. sarcoidosis) is a differential consideration for some of the marina disease. HEAD/NECK: * FDG avid left supraclavicular lymphadenopathy. CHEST: * FDG avid intrathoracic lymphadenopathy. ABDOMEN/PELVIS: * FDG cervical neoplasm associated with moderate right hydroureteronephrosis. * FDG avid abdominal and pelvic lymphadenopathy. MUSCULOSKELETAL: * No FDG avid neoplastic process. Transcribe Date/Time: Dec 08 2023 10:26A Dictated by: AMI BUI, DO This examination was interpreted and the report reviewed and electronically signed by: (more content not included)... Normal [facility] Orders Onlyon 12-01-2023 Orders Only [id number] Kelby Johnson 1955 F Date Provider Department Center 12/01/2023 [id number], [facility] CELESTE [place] Family History Problem Relation Age of Onset Coronary artery disease Mother Cancer Father Diabetes Father Family Status - Relation Status Age at Mother Father Normal [facility] CNOVon 11-28-2023 CNOV Office Visit (RADTSA ) CANDIS JOHNSON ([id number]) 1955 F DEF Date Time Provider Department 11/28/23 9:00 AM EL AHMADI During your visit today, we recorded the following information about you: Temperature Pulse Respiration Blood pressure 97.7 degrees 89/minute 16/minute 117/78 Weight 84.4 kg Mecca Boyle LPN 11/28/2023 10:33 AM Signed Pacemaker/Defibrillator ?N Previous Cancer(s)?N Previous Radiation?N Lupus/Scleroderma?N On body monitoring device?N El Ahmadi MD 12/13/2023 4:59 AM Addendum Radiation Oncology - New Patient/Consult Note PATIENT NAME: Candis Johnson PATIENT REQUESTING PHYSICIAN: Dr. Jayashree Avilez, Dr. Abisai Gleason DIAGNOSIS: Locally advanced cervical cancer. PATIENT IDENTIFICATION: This patient was seen in the Department of Radiation Oncology at the [facility] with El Ahmadi MD. She was accompanied today by her son. She is mostly deaf and much of the conversation was conducted with the son who is also the medical power of shop and alteration tailor. Final recommendations will be communicated back to the requesting physician by way of the shared medical record, or letter to requesting physician via [place] mail. HISTORY OF PRESENT ILLNESS: Ms. Johnson is a 68-year old deaf woman residing in an assisted living facility in [place], [place] and her son is her medical power of shop and alteration tailor. Per note from Dr. Gleason on 11/24/2023: 'Oncologic History: Candis Johnson is a very pleasant 68 y.o. female. Who is deaf was admitted on November 10, 2023 for surgical examination of the vaginal mass she did have an MRI of the pelvis A 5.9 x 3.8 cm enhancing mass [...] lymphadenopathy, left greater than right, is likely metastatic patient's underwent Operative Hysteroscopy, Cervix Biopsy, Cystoscopy, Excision of skin mole , and the final pathology as below Path Number: [id number] -- Diagnosis -- A. LEFT CERVIX, BIOPSY: -INVASIVE SQUAMOUS CELL CARCINOMA. -BACKGROUND HIGH-GRADE SQUAMOUS EPITHELIAL LESION (SUDHA-3). B. RIGHT VAGINAL CERVIX, BIOPSY: -PIECES OF SQUAMOUS MUCOSA WITH HIGH-GRADE SQUAMOUS EPITHELIAL LESION (SUDHA 3/VaIN 3). -NO DEFINITIVE INVASION IDENTIFIED. C. LEFT MONS SKIN LESION, BIOPSY: -SEBORRHEIC KERATOSIS. MRI report on November 10, 2023 IMPRESSION: 1. A 5.9 x 3.8 cm [...] left greater than right, is likely metastatic. Above compatible with at least stage IIIb cervical cancer and was evaluated by FUND ACCOUNTING MANAGER oncology and due to the fact fixed cervix mass, with bilateral parametrial involvement and the tumor along the right parametria was noted to be fixed to the right pelvic sidewall and decision was to proceed with concurrent chemo RT with weekly cisplatin and radiation also pending a PET/CT [facility] NGS and PD-L1 status from the cervix biopsy still pending.' She is referred today to the radiation medicine clinic to have a discussion regarding the role of radiation therapy to the pelvis in the definitive treatment of her advanced cervical cancer. INTERVAL HISTORY: The patient's son indicates that during the admission at the beginning of the month, she did require 2 units of blood and continues to note vaginal bleeding. PAST MEDICAL HISTORY: PAST MEDICAL HISTORY Diagnosis Date Amnesia memory loss Asthma Back muscle spasm Bipolar disorder (HCC) Cervical cancer (HCC) COPD (chronic obstructive pulmonary disease) (HCC) Diabetes mellitus (HCC) Diaphragmatic hernia Gastrointestinal tract hemorrhage Hearing loss HTN (hypertension) Iron deficiency anemia Schizophrenia (HCC) PAST SURGICAL HISTORY: No past surgical history on file. FAMILY HISTORY: No family history on file. 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 She had a legal guardian in the past and her son is n (more content not included)... Normal [facility] 11-25-2023 [facility] Tele[facility] (RADTSA) CANDIS JOHNSON ([id number]) 1955 F DEF Date Time Provider Department 11/25/23 LE AHMADI During your visit today, we recorded the following information about you: Mecca Boyle LPN 11/25/2023 2:29 PM Signed I called and spoke to Angelina at [facility] and she said Candis does very [...] language. She has been a resident at [facility] assisted living for 4-5 years and does very well there per Landen. I notified Landen that Dr. Ahmadi is ordering a PET scan, rad onc consult at [facility] and trying to move up Candis's consult with Dr. Mckinley goran. Landen states between himself and [facility] transportation should not be an issue. Yumiko: 1. Please schedule PET scan goran. 2. Rad Onc consult at [facility] 3. Move up Dr. Mckinley's consult goran. Dr. Mckinley are you or your staff able to assist in rescheduling Ms. Johnson's consult with you goran per Dr. Ahmadi? She is currently scheduled for consult on 12/28/23. Thanks PARAG Aguilar Tiffany 11/28/2023 7:[address] [facility] RAD onc consult Nathalie Saleh RN 11/28/2023 7:[address] Ahmadi- order pending your approval. PARAG Alves Saju, MD 11/28/2023 10:28 AM Signed Rad onc consult order signed for [facility] referral (brachytherapy). Can cancel consult request with Dr. Mckinley - she is established with [facility] out of [place] already (Dr. Avilez). Will need repeat MRI pelvis week of January 15. Thanks! Yumiko Younger 11/28/2023 12:[address] MRI orders Mecca Boyle LPN 11/28/2023 3:57 PM Signed MRI order pending your approval. PARAG Aguilar Tiffany 12/08/2023 8:27 AM Signed Called son to see where they would like the MRI scheduled, had to leave a message. Yumiko Mariee 12/08/2023 9:59 AM Signed Spoke with patients son, he would like scheudled at [facility] since its easiest for nusing home I sent over order will check on later, thanks Sean Thayer Yumiko 12/08/2023 12:08 PM Signed MRI not needed per chat Allergies As of Date: 11/25/2023 (Not on File) Date Reviewed: Never Reviewed Reason for Visit: Orders [681] Patient Update [1234] Primary Visit Diagnosis: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) [C53.8] Order(s):RAD/ONC CONSULT [9037] Order #: [id number]: 1 FUTURE MRI FEMALE PELVIS WO/W IVCON [0437555] Order #: [id number] FUTURE [] iv contrast (will be provided with radiology test)MRI Female Pelvis Inject, intravenously, once for 1 [...] protocol in the MR contrast administration guidelines link.Disp: 1 EachRfl: 0 Prescriptions as of 12/08/2023 - atorvastatin (LIPITOR) 40 mg tablet Take 1 tablet by mouth every evening. - aspirin 81 mg cap Take 81 mg by mouth. - TRULICITY 0.75 mg/0.5 mL pen injector - cholecalciferol (VITAMIN D3) 5,000 unit tab - acarbose (PRECOSE) 100 mg tablet Take 1 tablet by mouth two times a day. - acetaminophen (TYLENOL) 500 mg tablet Take 1 tablet by mouth every 8 hours as needed. - CAPLYTA 42 mg capsule Take 1 capsule by mouth once daily. - sacubitril-valsartan (ENTRESTO) 24-26 mg tablet Take 1 tablet by mouth two times a day. - famotidine (PEPCID) 40 mg tablet Refills(s) 0 - ferrous sulfate 325 mg (65 mg iron) tablet Take 325 mg by mouth. - furosemide (LASIX) 20 mg tablet Take 1 tablet by mouth once daily. - metFORMIN (GLUCOPHAGE) 1,000 mg tablet Take 1,000 mg by mouth. - montelukast (SINGULAIR) 10 mg tablet Refills(s) 0 - ranolazine ER (RANEXA) 500 mg 12 hr tablet Take 1 tablet by mouth two times a day. - topiramate (TOPAMAX) 25 mg tablet - traZODone (DESYREL) 50 mg tablet - cyanocobalamin (VITAMIN B-12) 1,000 mcg tab Take 1 tablet by mouth once daily. - albuterol HFA (PROVENTIL HFA, VENTOLIN HFA) 90 mcg/actuation inhaler Inhale 2 Puffs as instructed. - ondansetron orally disintegrating (ZOFRAN ODT) 4 mg disintegrating tablet - aluminum-magnesium hydroxide (MAG-AL) 200-200 mg/5 mL suspension Take 5 mL by mouth. - ipratropium (ATROVENT) 0.02 % nebulizer solution Take by nebulization every 6 (six) hours - hydrocortisone (ANUSOL-HC) 2.5 % rectal cream - fluticasone (FLONASE) 50 mcg/actuation nasal spray 1 [place] once daily. - mag (more content not included)... Normal [facility] OUTSIDE SURG PATH SLIDE REVI EWon 11-25-2023 CASE REPORT Normal [facility] Comment on above: Order Comment: Speci men Type: FORMALIN-FIXED PARAFFIN-EMBEDDED TISSUE SPECIMEN Ordering Facility: [facility] Review Address: , , Result Comment: Surg [facility] Pathology Report Case: [id number] Authorizing Provider: Mariam Mckinley MD Collected: 11/25/2023 02:11 PM Ordering Location: [facility] Received: 11/25/2023 02:12 PM [facility] Pathologist: Ernestina Parada MD Specimen: Slide(s), 5 SLIDES [id number] Performed By: #### L [id number] #### [facility] CLIA [id number] [address] [place] [address] [place] DIAGNOSIS COMMENT 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 Normal [facility] Comment on above: Order Comment: Speci men Type: FORMALIN-FIXED PARAFFIN-EMBEDDED TISSUE SPECIMEN Ordering Facility: [facility] Review Address: , , Performed By: #### L [id number] #### [facility] CLIA [id number] [address] [place] [address] OF [facility] FINAL DIAGNOSIS Normal [facility] Comment on above: Order Comment: Speci men Type: FORMALIN-FIXED PARAFFIN-EMBEDDED TISSUE SPECIMEN Ordering Facility: [facility] Review Address: , , Result Comment: Outs miguel angel case from [place], [place] ([id number], collected 11/11/2023) A. Left cervix, biopsy: - Invasive squamous cell carcinoma, see comment. B. 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 Performed By: #### L [id number] #### [facility] CLIA [id number] [address] [place] [address] OF [facility] FINAL PERFORMING LAB Normal [facility] Comment on above: Order Comment: Speci men Type: FORMALIN-FIXED PARAFFIN-EMBEDDED TISSUE SPECIMEN Ordering Facility: [facility] Outside Review Address: , , Result Comment: Diag nostic interpretation performed at [facility], [address] [place] [address] CLIA# [id number] Linen Room Custodian: Navdeep Pickering M.D. Performed By: #### L [id number] #### [facility] CLIA [id number] [address] [place] [address] [place] Orders Onlyon 11-21-2023 Orders Only [id number] Kelby Johnson 1955 F Date Provider Department Center 11/21/2023 MARV CASAREZ CELESTE Barreto Family History Problem Relation Age of Onset Coronary artery disease Mother Cancer Father Diabetes Father Family Status - Relation Status Age at Mother Father Normal [facility] Consultation Noteon 11-14-19 24 Consultation Note [id number] IFF Normal [facility] Glucose,Whole Bloodon 2023 Glucose [Mass/Vol] 124 mg/dL High 65-105 [facility] Glucose [Mass/Vol] 87 mg/dL Normal 65-105 [facility] POC Glucose Fingerstickon Glucose [Mass/Vol] 124 mg/dL High 65 - 105 mg/dL [facility] Interpretation and review of laboratory results Abnormal [facility] Glucose [Mass/Vol] 87 mg/dL 65 - 105 mg/dL [facility] CBC with Auto Differentialon 11-11-2023 Basophils (Bld) [#/Vol] 0.03 10*3/uL [facility] Basophils/100 WBC (Bld) 0 % 0 - 2 % [facility] Eosinophils (Bld) [#/Vol] 0.31 10*3/uL [facility] Eosinophils/100 WBC (Bld) 5 % High 1 - 4 % [facility] Erythrocyte distribution width (RBC) [Ratio] 16.1 % High 11.8 - 14.4 % [facility] Hematocrit (Bld) [Volume fraction] 31.6 % Low 36.3 - 47.1 % [facility] Hemoglobin (Bld) [Mass/Vol] 9.0 g/dL Low 11.9 - 15.1 g/dL [facility] Immature granulocytes (Bld) [#/Vol] 0.04 10*3/uL [facility] Immature granulocytes/100 WBC (Bld) 1 % High 0 [facility] Interpretation and review of laboratory results Abnormal [facility] Lymphocytes/100 WBC (Bld) 18 % Low 24 - 43 % [facility] Lymphocytes/100 WBC (Bld) 1.19 % [facility] MCH (RBC) [Entitic mass] 27.4 pg 25.2 - 33.5 pg [facility] MCHC (RBC) [Mass/Vol] 28.5 g/dL 28.4 - 34.8 g/dL [facility] MCV (RBC) [Entitic vol] 96.0 fL 82.6 - 102.9 fL [facility] Monocytes/100 WBC (Bld) 14 % High 3 - 12 % [facility] Monocytes/100 WBC (Bld) 0.91 % [facility] Neutrophils/100 WBC (Bld) 62 % 36 - 65 % [facility] Nucleated RBC/100 WBC (Bld) [Ratio] 0.0 % 0.0 per 100 WBC [facility] Platelet mean volume (Bld) [Entitic vol] 8.6 fL 8.1 - 13.5 fL [facility] Platelets (Bld) [#/Vol] 413 10*3/uL [facility] RBC (Bld) [#/Vol] 3.29 10*6/uL Low 3.95 - 5.1 1 m/uL [facility] RBC (Bld) [#/Vol] ANISOCYTOSIS PRESENT [facility] Segmented neutrophils/100 WBC (Bld) 4.27 % [facility] WBC other (Bld) [#/Vol] 6.8 [facility] CBC with Diffon 11-11-2023 Abs. Basophil 0.03 k/uL Normal 0.00-0.20 [facility] Comment on above: Performed By: #### C P, CDP #### [place] [address] Senior Analytic Consultant: Guillaume Roman MD Abs.Imm.Granulocyte 0.04 k/uL Normal 0.00-0.30 [facility] Comment on above: Performed By: #### C P, CDP #### [facility] [address] [place] [address] Senior Analytic Consultant: Guillaume Roman MD Abs.Neutrophil (Seg) 4.27 k/uL Normal 1.50-8.10 [facility] Comment on above: Performed By: #### C P, CDP #### [place] [address] Senior Analytic Consultant: Guillaume Roman MD Basophils/100 WBC (Bld) 0 % Normal 0-2 [facility] Comment on above: Performed By: #### C P, CDP #### [address] [address] Senior Analytic Consultant: Guillaume Roman MD Eosinophils (Bld) [#/Vol] 0.31 10*3/uL Normal 0.00-0.44 [facility] Comment on above: Performed By: #### C P, CDP #### [address] [address] Senior Analytic Consultant: Guillaume Roman MD Eosinophils/100 WBC (Bld) 5 % High 1-4 [facility] Comment on above: Performed By: #### C P, CDP #### [address] [address] Senior Analytic Consultant: Guillaume Roman MD Erythrocyte distribution width (RBC) [Ratio] 16.1 % High 11.8-14.4 [facility] Comment on above: Performed By: #### C P, CDP #### [address] [address] Senior Analytic Consultant: Guillaume Roman MD Hematocrit (Bld) [Volume fraction] 31.6 % Low 36.3-47.1 [facility] Comment on above: Performed By: #### C P, CDP #### [address] [address] Senior Analytic Consultant: Guillaume Roman MD Hemoglobin (Bld) [Mass/Vol] 9.0 g/dL Low 11.9-15.1 [facility] Comment on above: Performed By: #### C P, CDP #### [address] [address] Senior Analytic Consultant: Guillaume Roman MD Immature granulocytes/100 WBC (Bld) 1 % High 0 [facility] Comment on above: Performed By: #### C P, CDP #### [address] [address] Senior Analytic Consultant: Guillaume Roman MD Lymphocytes (Bld) [#/Vol] 1.19 10*3/uL Normal 1.10-3.70 [facility] Comment on above: Performed By: #### C P, CDP #### [address] [address] Senior Analytic Consultant: Guillaume Roman MD Lymphocytes/100 WBC (Bld) 18 % Low 24-43 [facility] Comment on above: Performed By: #### C P, CDP #### [address] [address] Senior Analytic Consultant: Guillaume Roman MD MCH (RBC) [Entitic mass] 27.4 pg Normal 25.2-33.5 [facility] Comment on above: Performed By: #### C P, CDP #### [place] [address] Senior Analytic Consultant: Guillaume Roman MD MCHC (RBC) [Mass/Vol] 28.5 g/dL Normal 28.4-34.8 [facility] Comment on above: Performed By: #### C P, CDP #### [address] [address] Senior Analytic Consultant: Guillaume Roman MD MCV (RBC) [Entitic vol] 96.0 fL Normal 82.6-102.9 [facility] Comment on above: Performed By: #### C P, CDP #### [address] [address] Senior Analytic Consultant: Guillaume Roman MD Monocytes (Bld) [#/Vol] 0.91 10*3/uL Normal 0.10-1.20 [facility] Comment on above: Performed By: #### C P, CDP #### [place] [address] Senior Analytic Consultant: Guillaume Roman MD Monocytes/100 WBC (Bld) 14 % High 3-12 [facility] Comment on above: Performed By: #### C P, CDP #### [address] [address] Senior Analytic Consultant: Guillaume Roman MD Neutrophil (Seg) 62 % Normal 36-65 [facility] Comment on above: Performed By: #### C P, CDP #### [address] [address] Senior Analytic Consultant: Guillaume Roman MD NRBC Automated 0.0 per 100 WBC Normal 0.0 [facility] Comment on above: Performed By: #### C P, CDP #### [address] [address] Senior Analytic Consultant: Guillaume Roman MD Platelet mean volume (Bld) [Entitic vol] 8.6 fL Normal 8.1-13.5 [facility] Comment on above: Performed By: #### C P, CDP #### [address] [address] Senior Analytic Consultant: Guillaume Roman MD Platelets (Bld) [#/Vol] 413 10*3/uL Normal 138-453 [facility] Comment on above: Performed By: #### C P, CDP #### [address] [address] Senior Analytic Consultant: Guillaume Roman MD RBC (Bld) [#/Vol] 3.29 10*6/uL Low 3.95-5.11 [facility] Comment on above: Performed By: #### C P, CDP #### [address] [address] Senior Analytic Consultant: Guillaume Roman MD RBC morphology finding Nom (Bld) ANISOCYTOSIS PRESENT Normal [facility] Comment on above: Performed By: #### C P, CDP #### [facility] [address] [place] [address] Senior Analytic Consultant: Guillaume Roman MD WBC (Bld) [#/Vol] 6.8 10*3/uL Normal 3.5-11.3 [facility] Comment on above: Performed By: #### C P, CDP #### [address] [address] Senior Analytic Consultant: Guillaume Roman MD Comp Metabolic Profon 2023 Albumin [Mass/Vol] 3.6 g/dL Normal 3.5-5.2 [facility] Comment on above: Performed By: #### C P, CDP #### [address] [address] Senior Analytic Consultant: Guillaume Roman MD Albumin/Glob Ratio 2.0 Normal 1.0-2.5 [facility] Comment on above: Performed By: #### C P, CDP #### [address] [address] Senior Analytic Consultant: Guillaume Roman MD Alkaline Phos 93 U/L Normal 35-104 [facility] Comment on above: Performed By: #### C P, CDP #### [address] [address] Senior Analytic Consultant: Guillaume Roman MD ALT [Catalytic activity/Vol] 14 U/L Normal 10-35 [facility] Comment on above: Performed By: #### C P, CDP #### [address] [address] Senior Analytic Consultant: Guillaume Roman MD Anion gap [Moles/Vol] 10 mmol/L Normal 9-16 [facility] Comment on above: Performed By: #### C P, CDP #### [address] [address] Senior Analytic Consultant: Guillaume Roman MD AST [Catalytic activity/Vol] 33 U/L Normal 10-35 [facility] Comment on above: Performed By: #### C P, CDP #### [address] [address] Senior Analytic Consultant: Guillaume Roman MD Bilirubin [Mass/Vol] 0.3 mg/dL Normal 0.00-1.20 [facility] Comment on above: Performed By: #### C P, CDP #### [address] [address] Senior Analytic Consultant: Guillaume Roman MD Calcium [Mass/Vol] 8.8 mg/dL Normal 8.6-10.4 [facility] Comment on above: Performed By: #### C P, CDP #### [address] [address] Senior Analytic Consultant: Guillaume Roman MD Chloride [Moles/Vol] 109 mmol/L High 98-107 [facility] Comment on above: Performed By: #### C P, CDP #### [address] [address] Senior Analytic Consultant: Guillaume Roman MD CO2 [Moles/Vol] 19 mmol/L Low 20-31 [facility] Comment on above: Performed By: #### C P, CDP #### [address] [address] Senior Analytic Consultant: Guillaume Roman MD Creatinine [Mass/Vol] 1.0 mg/dL High 0.50-0.90 [facility] Comment on above: Performed By: #### C P, CDP #### [address] [address] Senior Analytic Consultant: Guillaume Roman MD GFR/1.73 sq M.predicted among non-blacks MDRD (S/P/Bld) [Vol rate/Area] 59 mL/min/{1.73_m2} Low >60 [facility] Comment on above: Result Comment: These [...] renal tubular secretion. Performed By: #### C P, CDP #### [address] [address] Senior Analytic Consultant: Guillaume Roman MD Glucose [Mass/Vol] 97 mg/dL Normal 74-99 [facility] Comment on above: Performed By: #### C P, CDP #### [address] [address] Senior Analytic Consultant: Guillaume Roman MD Potassium [Moles/Vol] 4.3 mmol/L Normal 3.7-5.3 [facility] Comment on above: Result Comment: SPEC IMEN SLIGHTLY HEMOLYZED, RESULTS MAY BE ADVERSELY AFFECTED. Performed By: #### C P, CDP #### [address] [address] Senior Analytic Consultant: Guillaume Roman MD Protein [Mass/Vol] 5.4 g/dL Low 6.6-8.7 [facility] Comment on above: Performed By: #### C P, CDP #### [address] [address] Senior Analytic Consultant: Guillaume Roman MD Sodium [Moles/Vol] 138 mmol/L Normal 136-145 [facility] Comment on above: Performed By: #### C P, CDP #### [address] [address] Senior Analytic Consultant: Guillaume Roman MD Urea nitrogen [Mass/Vol] 11 mg/dL Normal 8-23 [facility] Comment on above: Performed By: #### C P, CDP #### [facility] [address] [place] [address] Senior Analytic Consultant: Guillaume Roman MD Comprehensive Metabolic Pane [facility] 11-11-2023 Albumin [Mass/Vol] 3.6 g/dL 3.5 - 5.2 g/dL [facility] Albumin/Globulin [Mass ratio] 2.0 {ratio} 1.0 - 2.5 [facility] ALP [Catalytic activity/Vol] 93 U/L 35 - 104 U/L [facility] ALT [Catalytic activity/Vol] 14 U/L 10 - 35 U/L [facility] Anion gap [Moles/Vol] 10 mmol/L 9 - 16 mmol/L [facility] AST [Catalytic activity/Vol] 33 U/L 10 - 35 U/L [facility] Bilirubin [Mass/Vol] 0.3 mg/dL 0.00 - 1.20 mg/dL [facility] Calcium [Mass/Vol] 8.8 mg/dL 8.6 - 10. 4 mg/dL [facility] Chloride [Moles/Vol] 109 mmol/L High 98 - 10 7 mmol/L [facility] CO2 [Moles/Vol] 19 mmol/L Low 20 - 31 mmol/L [facility] Creatinine [Mass/Vol] 1.0 mg/dL High 0.50 - 0.90 mg/dL [facility] Est, Glom Filt Rate 59 Low - PIN[facility] Comment on above: These results [...] [Mass/Vol] 97 mg/dL 74 - 99 mg/dL [facility] Interpretation and review of laboratory results Abnormal [facility] Potassium [Moles/Vol] 4.3 mmol/L 3.7 - 5.3 mmol/L [facility] Comment on above: SPECIMEN SLIGHTLY HE MOLYZED, RESULTS MAY BE ADVERSELY AFFECTED. Protein [Mass/Vol] 5.4 g/dL Low 6.6 - 8.7 g/dL [facility] Sodium [Moles/Vol] 138 mmol/L 136 - 145 mmol/L [facility] Urea nitrogen [Mass/Vol] 11 mg/dL 8 - 23 mg/dL [facility] [employer] [facility] [employer] Consultation Noteon 11-11-19 24 Consultation Note [id number] IFF Normal [facility] EKG 12 LeadOrdered By: Butch Nascimento on 11-11-2023 Atrial Rate 62 BPM [facility] Work Phone: P Bryan 40 degrees [facility] Work Phone: P-R Interval 168 ms [facility] Work Phone: Q-T Interval 404 ms [facility] Work Phone: QTc Calculation (Bazett) 410 ms [facility] Work Phone: R Bryan 6 degrees [facility] Work Phone: T Bryan 20 degrees [facility] Work Phone: Ventricular Rate 62 BPM [email or web address] Work Phone: EKG 12 Leadon 11-11-2023 Normal sinus rhythm Cannot rule out Anterior infarct , age undetermined Abnormal ECG No previous ECGs available [facility] STV MUSE Wily Nova MD / Butch Nascimento MD - 11/11/2023 Normal sinus rhythm Cannot rule out Anterior infarct , age undetermined Abnormal ECG No previous ECGs available [facility] Atrial Rate 65 BPM [facility] P Bryan 42 degrees [facility] P-R Interval 172 ms [facility] Q-T Interval 406 ms [facility] QTc Calculation (Bazett) 422 ms [facility] R Bryan 7 degrees [facility] T Bryan 19 degrees [facility] Ventricular Rate 65 BPM [facility] Normal sinus rhythm Normal ECG When compared with ECG of 10-NOV-2023 04:31, No significant change was found [facility] STV MUSE Wily Nova MD / Butch Nascimento MD - 11/11/2023 Normal sinus rhythm Normal ECG When compared with ECG of 10-NOV-2023 04:31, No significant change was found [facility] Glucose,Whole Bloodon 2023 Glucose [Mass/Vol] 120 mg/dL High 65-105 [facility] Glucose [Mass/Vol] 92 mg/dL Normal 65-105 [facility] Glucose [Mass/Vol] 83 mg/dL Normal 65-105 [facility] Glucose [Mass/Vol] 83 mg/dL Normal 65-105 [facility] Glucose [Mass/Vol] 88 mg/dL Normal 65-105 [facility] No Panel InformationOrdered By: Butch Nascimento on 11-11-2023 QRS Duration 86 ms [facility] Work Phone: [facility] [employer] Work Phone: POC Glucose Fingerstickon Glucose [Mass/Vol] 120 mg/dL High 65 - 105 mg/dL [facility] Interpretation and review of laboratory results Abnormal [facility] Glucose [Mass/Vol] 92 mg/dL 65 - 105 mg/dL [facility] Glucose [Mass/Vol] 83 mg/dL 65 - 105 mg/dL [facility] Glucose [Mass/Vol] 83 mg/dL 65 - 105 mg/dL [facility] Glucose [Mass/Vol] 88 mg/dL 65 - 105 mg/dL [facility] RAD - MRI Reporton RAD - MRI Report [id number] IFF Normal [facility] Surgical Pathology Reporton 11-11-2023 Surgical Pathology Report (NOTE) [id number] [facility] [place] [facility] ANATOMIC PATHOLOGY [address] [place] [address]. [place], [place] [address] SURGICAL PATHOLOGY CONSULTATION Patient Name: CANDIS JOHNSON [facility] Rec: [id number] Path Number: [id number] Collected: 11/11/2023 Received: 11/14/2023 Reported: 11/17/2023 08:30 -- Diagnosis -- A. LEFT CERVIX, BIOPSY: -INVASIVE SQUAMOUS CELL CARCINOMA. -BACKGROUND HIGH-GRADE SQUAMOUS EPITHELIAL LESION (SUDHA-3). B. RIGHT VAGINAL CERVIX, BIOPSY: -PIECES OF SQUAMOUS MUCOSA WITH HIGH-GRADE SQUAMOUS EPITHELIAL LESION (SUDHA 3/VaIN 3). -NO DEFINITIVE INVASION IDENTIFIED. C. LEFT MONS SKIN LESION, BIOPSY: -SEBORRHEIC KERATOSIS. Jamarcus Bagley M.D Electronically Signed Out keith/11/15/2023 Procedures/Addenda ADDENDUM AFTER SPECIAL STAINS Date Ordered: 12/02/2023 Status: Signed Out Date Complete: 12/02/2023 By: Candy Banegas Date Reported: 12/02/2023 INTERPRETATION AT THE REQUEST OF DR. JAYASHREE AVILEZ, BLOCK A1 WAS SENT TO [facility] FOR PD-L1 EXPRESSION TESTING. THE RESULTS ARE FOLLOWS: PD-L1 EXPRESSION: POSITIVE TUMOR PROPORTION SCORE (TPS): 15% COMBINED POSITIVE SCORE (CPS): 17 PLEASE SEE YARELI' COMPLETE REPORT ([id number]) FOR DETAILS. Candy Banegas Clinical Information Pre-Op Diagnosis: BLEEDING FROM THE GENITOURINARY SYSTEM Operative Findings: LEFT CERVIX BIOPSY; RIGHT VAGINAL CERVIX BIOPSY; LEFT MONS SKIN LESION Operation Performed: DILATION AND CURETTAGE HYSTEROSCOPY BIOPSY, CYSTOSCOPY, ANOSCOPY kb Source of Specimen A: LEFT CERVIX BIOPSY B: RIGHT VAGINAL CERVIX BIOPSY C: LEFT MONS SKIN LESION Gross Description A. CANDIS JOHNSON LEFT CERVIX BIOPSY Received in formalin are [...] squamous carcinoma. Control reacts as expected. Normal [facility] BLOOD BANK SPECIMENon 2023 [facility] CBC with Auto Differentialon 11-10-2023 Basophils (Bld) [#/Vol] [facility] Basophils/100 WBC (Bld) 0 % 0 - 2 % [facility] Eosinophils (Bld) [#/Vol] 0.03 10*3/uL [facility] Eosinophils/100 WBC (Bld) 0 % Low 1 - 4 % [facility] Erythrocyte distribution width (RBC) [Ratio] 15.9 % High 11.8 - 14.4 % [facility] Hematocrit (Bld) [Volume fraction] 29.5 % Low 36.3 - 47.1 % [facility] Hemoglobin (Bld) [Mass/Vol] 8.7 g/dL Low 11.9 - 15.1 g/dL [facility] Immature granulocytes (Bld) [#/Vol] 0.06 10*3/uL [facility] Immature granulocytes/100 WBC (Bld) 1 % High 0 [facility] Interpretation and review of laboratory results Abnormal [facility] Lymphocytes/100 WBC (Bld) 10 % Low 24 - 43 % [facility] Lymphocytes/100 WBC (Bld) 0.86 % Low [facility] MCH (RBC) [Entitic mass] 26.9 pg 25.2 - 33.5 pg [facility] MCHC (RBC) [Mass/Vol] 29.5 g/dL 28.4 - 34.8 g/dL [facility] MCV (RBC) [Entitic vol] 91.3 fL 82.6 - 102.9 fL [facility] Monocytes/100 WBC (Bld) 9 % 3 - 12 % [facility] Monocytes/100 WBC (Bld) 0.72 % [facility] Neutrophils/100 WBC (Bld) 80 % High 36 - 65 % [facility] Nucleated RBC/100 WBC (Bld) [Ratio] 0.0 % 0.0 per 100 WBC [facility] Platelet mean volume (Bld) [Entitic vol] 8.5 fL 8.1 - 13.5 fL [facility] Platelets (Bld) [#/Vol] 389 10*3/uL [facility] RBC (Bld) [#/Vol] 3.23 10*6/uL Low 3.95 - 5.1 1 m/uL [facility] RBC (Bld) [#/Vol] ANISOCYTOSIS PRESENT [facility] Segmented neutrophils/100 WBC (Bld) 6.82 % [facility] [employer] WBC other (Bld) [#/Vol] 8.5 [facility]UEvent[facility] CBC with Diffon 11-10-2023 Abs. Basophil <0.03 Normal 0.00-0.20 [facility] Comment on above: Performed By: #### C DP, GLYHGB #### [facility] [address] [place] [address] Senior Analytic Consultant: Guillaume Roman MD Abs.Imm.Granulocyte 0.06 k/uL Normal 0.00-0.30 [facility] Comment on above: Performed By: #### C DP, GLYHGB #### [facility] [address] [place] [address] Senior Analytic Consultant: Guillaume Roman MD Abs.Neutrophil (Seg) 6.82 k/uL Normal 1.50-8.10 [facility] Comment on above: Performed By: #### C DP, GLYHGB #### [employer] [address] [place], [place] [id number] Senior Analytic Consultant: Guillaume Roman MD Basophils/100 WBC (Bld) 0 % Normal 0-2 [facility] Comment on above: Performed By: #### C DP, GLYHGB #### [address] [address] Senior Analytic Consultant: Guillaume Roman MD Eosinophils (Bld) [#/Vol] 0.03 10*3/uL Normal 0.00-0.44 [facility] Comment on above: Performed By: #### C DP, GLYHGB #### [address] [address] Senior Analytic Consultant: Guillaume Roman MD Eosinophils/100 WBC (Bld) 0 % Low 1-4 [facility] Comment on above: Performed By: #### C DP, GLYHGB #### [address] [address] Senior Analytic Consultant: Guillaume Roman MD Erythrocyte distribution width (RBC) [Ratio] 15.9 % High 11.8-14.4 [facility] Comment on above: Performed By: #### C DP, GLYHGB #### [address] [address] Senior Analytic Consultant: Guillaume Roman MD Hematocrit (Bld) [Volume fraction] 29.5 % Low 36.3-47.1 [facility] Comment on above: Performed By: #### C DP, GLYHGB #### [facility] [employer] [address] [place] [address] Senior Analytic Consultant: Guillaume Roman MD Hemoglobin (Bld) [Mass/Vol] 8.7 g/dL Low 11.9-15.1 [facility] Comment on above: Performed By: #### C DP, GLYHGB #### [facility] [employer] [address] [place] [address] Senior Analytic Consultant: Guillaume Roman MD Immature granulocytes/100 WBC (Bld) 1 % High 0 [facility] Comment on above: Performed By: #### C DP, GLYHGB #### [address] [address] Senior Analytic Consultant: Guillaume Roman MD Lymphocytes (Bld) [#/Vol] 0.86 10*3/uL Low 1.10-3.70 [facility] Comment on above: Performed By: #### C DP, GLYHGB #### [place] [address] Senior Analytic Consultant: Guillaume Roman MD Lymphocytes/100 WBC (Bld) 10 % Low 24-43 [facility] Comment on above: Performed By: #### C DP, GLYHGB #### [place] [address] Senior Analytic Consultant: Guillaume Roman MD MCH (RBC) [Entitic mass] 26.9 pg Normal 25.2-33.5 [facility] Comment on above: Performed By: #### C DP, GLYHGB #### [place] [address] Senior Analytic Consultant: Guillaume Roman MD MCHC (RBC) [Mass/Vol] 29.5 g/dL Normal 28.4-34.8 [facility] Comment on above: Performed By: #### C DP, GLYHGB #### [place] [address] Senior Analytic Consultant: Guillaume Roman MD MCV (RBC) [Entitic vol] 91.3 fL Normal 82.6-102.9 [facility] Comment on above: Performed By: #### C DP, GLYHGB #### [address] [address] Senior Analytic Consultant: Guillaume Roman MD Monocytes (Bld) [#/Vol] 0.72 10*3/uL Normal 0.10-1.20 [facility] Comment on above: Performed By: #### C DP, GLYHGB #### [facility] [employer] [address] [place] [address] Senior Analytic Consultant: Guillaume Roman MD Monocytes/100 WBC (Bld) 9 % Normal 3-12 [facility] Comment on above: Performed By: #### C DP, GLYHGB #### [facility] [employer] [address] [place] [address] Senior Analytic Consultant: Guillaume Roman MD Neutrophil (Seg) 80 % High 36-65 [facility] Comment on above: Performed By: #### C DP, GLYHGB #### [facility] [employer] [address] [place] [address] Senior Analytic Consultant: Guillaume Roman MD NRBC Automated 0.0 per 100 WBC Normal 0.0 [facility] Comment on above: Performed By: #### C DP, GLYHGB #### [facility] [employer] [address] [place] [address] Senior Analytic Consultant: Guillaume Roman MD Platelet mean volume (Bld) [Entitic vol] 8.5 fL Normal 8.1-13.5 [facility] Comment on above: Performed By: #### C DP, GLYHGB #### [address] [address] Senior Analytic Consultant: Guillaume Roman MD Platelets (Bld) [#/Vol] 389 10*3/uL Normal 138-453 [facility] Comment on above: Performed By: #### C DP, GLYHGB #### [facility] [employer] [address] [place] [address] Senior Analytic Consultant: Guillaume Roman MD RBC (Bld) [#/Vol] 3.23 10*6/uL Low 3.95-5.11 [facility] Comment on above: Performed By: #### C DP, GLYHGB #### [address] [place] [address] Senior Analytic Consultant: Guillaume Roman MD RBC morphology finding Nom (Bld) ANISOCYTOSIS PRESENT Normal [facility] Comment on above: Performed By: #### C DP, GLYHGB #### [facility] [address] [place] [address] Senior Analytic Consultant: Guillaume Roman MD WBC (Bld) [#/Vol] 8.5 10*3/uL Normal 3.5-11.3 [facility] Comment on above: Performed By: #### C DP, GLYHGB #### [facility] [employer] [address] [place] [address] Senior Analytic Consultant: Guilluame Roman MD CT HEAD WO CONTRASTon 2023 [...] True Mccall MD 11/10/23 Final result Normal [facility] CT Head WO contraston 2023 No [...] of the visualized skull or soft tissues. [facility] True Valentine MD - 11/10/2023 EXAMINATION: [...] soft tissues. IMPRESSION: No acute intracranial abnormality. [facility] Radiology Study observation (narrative) [facility] CT Head WO contrastOrdered B y: True Mccall on 11-10-2023 [facility] Work Phone: Comp Metabolic Pr/rfx MGon 0 11-10-2023 Albumin [Mass/Vol] 3.5 g/dL Normal 3.5-5.2 [facility] Comment on above: Performed By: #### R EJEC, CMPX, LIPR ####[facility] [address] [place], [place] [phone] Director: Guillaume Roman MD Albumin/Glob Ratio 2.0 Normal 1.0-2.5 [facility] Comment on above: Performed By: #### R EJEC, CMPX, LIPR ####[facility] [address] [place], [place] [phone] Director: Guillaume Roman MD Alkaline Phos 85 U/L Normal 35-104 [facility] Comment on above: Performed By: #### R EJEC, CMPX, LIPR ####[facility] [address] [place], [place] [phone] Director: Guillaume Roman MD ALT [Catalytic activity/Vol] 9 U/L Low 10-35 [facility] Comment on above: Performed By: #### R EJEC, CMPX, LIPR ####[facility] [address] [place], [place] [phone] Director: Guillaume Roman MD Anion gap [Moles/Vol] 12 mmol/L Normal 9-16 [facility] Comment on above: Performed By: #### R EJEC, CMPX, LIPR ####[facility] [address] [place], [place] [phone] Director: Guillaume Roman MD AST [Catalytic activity/Vol] 20 U/L Normal 10-35 [facility] Comment on above: Performed By: #### R EJEC, CMPX, LIPR ####[facility] [address] [place], [place] [phone] Director: Guillaume Roman MD Bilirubin [Mass/Vol] 0.2 mg/dL Normal 0.00-1.20 [facility] Comment on above: Performed By: #### R EJEC, CMPX, LIPR ####[facility] [place] [address] [place], [place] [address])[phone] Director: Guillaume Roman MD Calcium [Mass/Vol] 8.4 mg/dL Low 8.6-10.4 [facility] Comment on above: Performed By: #### R EJEC, CMPX, LIPR ####[facility] [place] [address] [place], [place] [address])[phone] Director: Guillaume Roman MD Chloride [Moles/Vol] 108 mmol/L High 98-107 [facility] Comment on above: Performed By: #### R EJEC, CMPX, LIPR ####[facility] [place] [address] [place], [place] [address])[phone] Director: Guillaume Roman MD CO2 [Moles/Vol] 17 mmol/L Low 20-31 [facility] Comment on above: Performed By: #### R EJEC, CMPX, LIPR ####[facility] [place] [address] [place], [place] [address])[phone] Director: Guillaume Roman MD Creatinine [Mass/Vol] 0.9 mg/dL Normal 0.50-0.90 [facility] Comment on above: Performed By: #### R EJEC, CMPX, LIPR ####[facility] [address] [place], [place] [address])[phone] Director: Guillaume Roman MD GFR/1.73 sq M.predicted among non-blacks MDRD (S/P/Bld) [Vol rate/Area] 66 mL/min/{1.73_m2} Normal >60 [facility] Comment on above: Result Comment: These [...] affects renal tubular secretion. Performed By: #### R ALIZA YOOX, LIPR ####[facility] [address] [place], [place] [phone] Director: Guillaume Roman MD Glucose [Mass/Vol] 99 mg/dL Normal 74-99 [facility] Comment on above: Performed By: #### R EJEC, CMPX, LIPR ####[facility] [address] [place], [place] [id number])[phone] Director: Guillaume Roman MD Potassium [Moles/Vol] 4.5 mmol/L Normal 3.7-5.3 [facility] Comment on above: Result Comment: SPEC IMEN SLIGHTLY HEMOLYZED, RESULTS MAY BE ADVERSELY AFFECTED. Performed By: #### R ALIZA YOOX, LIPR ####[facility] [address] [place] [address] [phone] Director: Guillaume Roman MD Protein [Mass/Vol] 5.0 g/dL Low 6.6-8.7 [facility] Comment on above: Performed By: #### R FREDO, CMPX, LIPR ####[facility] [place] [address] [place], [place] [phone] Director: Guillaume Roman MD Sodium [Moles/Vol] 137 mmol/L Normal 136-145 [facility] Comment on above: Performed By: #### R EJEC, CMPX, LIPR ####[facility] [place] [address] [place], [place] [phone])[phone] Director: Guillaume Roman MD Urea nitrogen [Mass/Vol] 10 mg/dL Normal 8-23 [facility] Comment on above: Performed By: #### R EJKOURTNEY, CMPX, LIPR ####[facility] [place] [address] [place], [place] [phone] Director: Guillaume Roman MD Comprehensive Metabolic Pane l w/ Reflex to on 11-10-2023 Albumin [Mass/Vol] 3.5 g/dL 3.5 - 5.2 g/dL [facility] Albumin/Globulin [Mass ratio] 2.0 {ratio} 1.0 - 2.5 [facility] ALP [Catalytic activity/Vol] 85 U/L 35 - 104 U/L [facility] ALT [Catalytic activity/Vol] 9 U/L Low 10 - 35 U/L [facility] Anion gap [Moles/Vol] 12 mmol/L 9 - 16 mmol/L [facility] AST [Catalytic activity/Vol] 20 U/L 10 - 35 U/L [facility] Bilirubin [Mass/Vol] 0.2 mg/dL 0.00 - 1.20 mg/dL [facility] Calcium [Mass/Vol] 8.4 mg/dL Low 8.6 - 10. 4 mg/dL [facility] Chloride [Moles/Vol] 108 mmol/L High 98 - 10 7 mmol/L [facility] CO2 [Moles/Vol] 17 mmol/L Low 20 - 31 mmol/L [facility] Creatinine [Mass/Vol] 0.9 mg/dL 0.50 - 0.90 mg/dL [facility] Est, Glom Filt Rate 66 - PINF [facility] Comment on above: These results [...] [Mass/Vol] 99 mg/dL 74 - 99 mg/dL [facility] Interpretation and review of laboratory results Abnormal [facility] Potassium [Moles/Vol] 4.5 mmol/L 3.7 - 5.3 mmol/L [facility] Comment on above: SPECIMEN SLIGHTLY HE MOLYZED, RESULTS MAY BE ADVERSELY AFFECTED. Protein [Mass/Vol] 5.0 g/dL Low 6.6 - 8.7 g/dL [facility] Sodium [Moles/Vol] 137 mmol/L 136 - 145 mmol/L [facility] Urea nitrogen [Mass/Vol] 10 mg/dL 8 - 23 mg/dL [facility] Glucose,Whole Bloodon 2023 Glucose [Mass/Vol] 104 mg/dL Normal 65-105 [facility] Glucose [Mass/Vol] 86 mg/dL Normal 65-105 [facility] Glucose [Mass/Vol] 89 mg/dL Normal 65-105 [facility] Glucose [Mass/Vol] 91 mg/dL Normal 65-105 [facility] Hemoglobin A1Con 11-10-2023 Average glucose Estimated from glycated hemoglobin (Bld) [Mass/Vol] 82 mg/dL [facility] Comment on above: The ADA and AACC rec ommend providing the estimated average glucose result to permit better patient understanding of their HBA1c result. HbA1c (Bld) [Mass fraction] 4.5 % 4.0 - 6.0 % [facility] Glucose [Mass/Vol] 82 mg/dL Normal [facility] Comment on above: Result Comment: The ADA and AACC recommend providing the estimated average glucose result to permit better patient understanding of their HBA1c result. Performed By: #### C DP, GLYHGB #### [facility] [address] [place] [address] Senior Analytic Consultant: Guillaume Roman MD HbA1c (Bld) [Mass fraction] 4.5 % Normal 4.0-6.0 [facility] Comment on above: Performed By: #### C DP, GLYHGB #### [facility] [address] [place] [address] Senior Analytic Consultant: Guillaume Roman MD Lipid Panelon 11-10-2023 Cholesterol [Mass/Vol] 79 mg/dL 0 - 199 mg/dL [facility] Comment on above: Cholesterol Guidelines: <200 Desirable 200-240 Borderline >240 Undesirable Cholesterol in HDL [Mass/Vol] 55 mg/dL 40 - PINF mg/dL [facility] Comment on above: HDL Guidelines: <40 Undesirable 40-59 Borderline >59 Desirable Cholesterol in LDL [Mass/Vol] 11 mg/dL 0 - 100 mg/dL [facility] Comment on above: LDL Guidelines: <100 Desirable 100-129 Near to/above Desirable 130-159 Borderline >159 Undesirable Direct (measured) LDL and calculated LDL are not interchangeable tests. Cholesterol in VLDL [Mass/Vol] 13 mg/dL [facility] Cholesterol.total/Cho lesterol in HDL [Mass ratio] 1.0 {ratio} [facility] Triglyceride [Mass/Vol] 66 mg/dL NINF - 150 mg/dL [facility] Comment on above: Triglyceride Guidelines: <150 Desirable 150-199 Borderline 200-499 High >499 Very high Based on AHA Guidelines for fasting triglyceride, April 2012. Lipid Profileon 11-10-2023 Cholesterol [Mass/Vol] 79 mg/dL Normal 0-199 [facility] Comment on above: Result Comment: Cholesterol Guidelines: <200 Desirable 200-240 Borderline >240 Undesirable Performed By: #### R EJEC, CMPX, LIPR ####[address] [place] [address] [id number] Lab Director: Guillaume Roman MD Cholesterol in HDL [Mass/Vol] 55 mg/dL Normal >40 [facility] Comment on above: Result Comment: HDL Guidelines: <40 Undesirable 40-59 Borderline >59 Desirable Performed By: #### R EJEC, CMPX, LIPR ####[address] [place] [address] Lab Director: Guillaume Roman MD Cholesterol in LDL [Mass/Vol] 11 mg/dL Normal 0-100 [facility] Comment on above: Result Comment: LDL Guidelines: <100 Desirable 100-129 Near to/above Desirable 130-159 Borderline >159 Undesirable Direct (measured) LDL and calculated LDL are not interchangeable tests. Performed By: #### R EJEC, CMPX, LIPR ####[address] [place] [address] [id number] Lab Director: Guillaume Roman MD Cholesterol in VLDL [Mass/Vol] 13 mg/dL Normal [facility] Comment on above: Performed By: #### R EJEC, CMPX, LIPR ####[facility] [address] [place] [address] Lab Director: Guillaume Roman MD Cholesterol.total/Cho lesterol in HDL [Mass ratio] 1.0 {ratio} Normal [facility] Comment on above: Performed By: #### R EJEC, CMPX, LIPR ####[facility] [address] [place] [address] Lab Director: Guillaume Roman MD Triglyceride [Mass/Vol] 66 mg/dL Normal <150 [facility] Comment on above: Result Comment: Triglyceride Guidelines: <150 Desirable 150-199 Borderline 200-499 High >499 Very high Based on AHA Guidelines for fasting triglyceride, April 2012. Performed By: #### R EJEC, CMPX, LIPR ####[id number] [place] [address] Lab Director: Guillaume Roman MD MR Pelvis WO and [...] left greater than right, is likely metastatic. [facility] RIS CONSOLIDATED EXAMINATION: MRI OF THE PELVIS WITHOUT [...] osseous structures are unremarkable. Minimal free fluid. [facility] RIS CONSOLIDATED Frank Deleon MD - 11/10/2023 EXAMINATION: [...] left greater than right, is likely metastatic. [facility] Radiology Study observation (narrative) [facility] MR Pelvis WO and W contrast IVOrdered By: Frank Deleon on 11-10-2023 [facility] Work Phone: MRI PELVIS W WO CONTRASTon 0 11-10-2023 MRI PELVIS W WO CONTRAST EXAMINATION: MRI [...] Frank Deleon MD 11/10/23 Final result Normal [facility] No Panel Informationon 11-09 [facility] POC Glucose Fingerstickon Glucose [Mass/Vol] 104 mg/dL 65 - 105 mg/dL [facility] Glucose [Mass/Vol] 86 mg/dL 65 - 105 mg/dL [facility] Glucose [Mass/Vol] 89 mg/dL 65 - 105 mg/dL [facility] Glucose [Mass/Vol] 91 mg/dL 65 - 105 mg/dL [facility] PREVIOUS SPECIMENon 11-10-19 24 [facility] Specimen Rejectionon 024 Reason for rejection Unable to perform testing: Specimen clotted. [facility] Comment on above: Performed By: #### R EJEC, CMPX, LIPR ####[facility] [address] [place], [place] [id number] Lab Director: Guillaume Roman MD Source of sample .BLOOD [facility] Comment on above: Performed By: #### R EJEC, CMPX, LIPR ####[facility] [address] [place], [place] [id number] Lab Director: Guillaume Roman MD Test ordered CDP, GLYHGB [facility] Comment on above: Performed By: #### R EJEC, CMPX, LIPR ####[facility] [address] [place], [place] [id number] Lab Director: Guillaume Roman MD TYPE AND SCREENon 11-10-2023 ABO and Rh group Nom (Bld) Blood group O Rh(D) positive [facility] Arm Band Number [id number] [facility] Blood Bank Sample Expiration 11/13/2023,2359 [facility] Blood group antibodies identified Nom Negative [facility] Type + Screenon 11-10-2023 Type + Screen Sample Expiration 11/13/2023,2359 Arm Band Number BE [id number] ABO/Rh(D) O POSITIVE Antibody Screen NEGATIVE [facility] Comment on above: Performed By: #### T #### [address] [id number] Senior Analytic Consultant: MD Rene Barros 11-09-2023 L Specimen: [id number] Received: 11/10/23 Status: TESS Herrrealayne Num: [id number] Spec Type: Surgical Subm Dr: Kobe Crespo Tissues: A Endometrium - Curettings (EMC) Procedures: HE/6, Gross/Micro L4 Age/ Patient Sex Location Account Attending Physician ChristianpanchonoemiCandis Alisa 68/F LABELL [id number] Kobe Crespo SPEC NUM: [id number] RECD: 11/10/23 STATUS: TESS ANANTH NUM: [id number] NOY: 11/09/[address]: Kobe Crespo ENTERED: 11/10/[address] [facility] [address]: Angel Reynolds SPEC TYPE: Surgical DEPT: BLANCHE VALDIVIA ORDERED: [...] uterus didelphys, vaginal stenosis, cervical stenosis Specimen: [id number] Received: 11/10/23 Status: TESS Smart Num: [id number] Spec Type: Surgical Subm Dr: Kobe Crespo Tissues: A Endometrium - Curettings (EMC) Procedures: HE/6, Gross/Micro L4 Patient: Candis Johnson Alisa [id number] (Continued) Specimen: [id number] Received: 11/10/23 (Continued) Signed (signature on file) Jamarcus Chao MD 11/11/23 1448 Specimen: [id number] Received: 11/10/23 Status: TESS Smart Num: [id number] Spec Type: Surgical Subm Dr: Kobe Crespo Tissues: A Endometrium - Curettings (EMC) Procedures: GABRIELGinna/Ashley L4 Patient: Candis Johnson [id number] (Continued) Specimen: [id number] Received: 11/10/23 (Continued) CPT Codes 43908 Specimen: [id number] Received: 11/10/23 Status: TESS Smart Num: [id number] Spec Type: Surgical Subm Dr: Kobe Crespo Tissues: A Endometrium - Curettings (EMC) Procedures: Ginna/Ashley L4 Patient: ChristianpanchonoemiCandis Cuellar [id number] (Continued) Signed (signature on file) Jamarcus Chao MD 11/11/23 1448 Normal [facility] Reportson 11-08-2023 Lab Reports [id number] IFF Normal [facility] Lab Reportson 11-07-2023 Lab Reports [id number] IFF Normal [facility] Consent for Procedure/Surger yon 10-14-2023 Consent for Procedure/Surgery [id number] IFF Normal [facility] Office Visiton 10-06-2023 Follow-up visit [id number] Kelby Johnson 1955 F Date Provider Department [place] 10/06/2023 Jim-REBECCA GALEANO Family History Problem Relation Age of Onset Coronary artery disease Mother Cancer Father Diabetes Father Family Status - Relation Status Age at Mother Father Level of Service:59672 [place] OFFICE/OUTPATIENT ESTABLISHED MOD MDM 30 MIN Normal [facility] Office Visiton 09-23-2023 Follow-up visit [id number] Ayala 1955 F Date Provider Department Center 09/23/2023 3848GUERDA AGUILAR CELESTE Barreto Family History Problem Relation Age of Onset Coronary artery disease Mother Cancer Father Diabetes Father Family Status - Relation Status Age at Mother Father Level of Service:61128 [place] OFFICE/OUTPATIENT ESTABLISHED LOW MDM 20 MIN Reason for Visit and Comments: Follow-up [069548] - Concerns: Not much states some swelling in legs and some back back, chest pain seems to be getting better Normal [facility] Office Visiton 08-26-2023 Follow-up visit [id number] Kelby Johnson 1955 F Date Provider Department Center 08/26/2023 3848GUERDA CHI CELESTE Barreto Family History Problem Relation Age of Onset Coronary artery disease Mother Cancer Father Diabetes Father Family Status - Relation Status Age at Mother Father Level of Service:81854 [place] OFFICE/OUTPATIENT NEW MODERATE MDM 45 MINUTES Normal [facility] Consent for Procedure/Surger yon 08-24-2023 Consent for Procedure/Surgery [id number]#1.00T IFF Normal [facility] Consent for Procedure/Surger yon 08-09-2023 Consent for Procedure/Surgery [id number]#1.00T IFF Normal [facility] Urine Cytology ([facility])on 0 08-09-2023 Urine Cytology Diagnosis Info Invalid Interpretation Code [facility] Comment on above: Result Comment: A:Ur ine,Urine:Voided Interpretation - MicroScopic Description - Adequacy - Gross Description Site ID:A color Dark Yellow fixative Alcohol Specimen designated Urine received in alcohol preservative and labeled with the patient?s name, consists of 110ml slightly cloudy dark yellow fluid. Electronically signed by : on: 08/09/2023 11:46:02 Performed By: #### 1 [id number] ####[facility] [address] [place] [address] Physician Referralon 024 Physician Referral [id number] TIFF Normal [facility] Screenson 08-04-2023 Screens [id number] FF Normal [facility] Urine Cytology ([facility])on 0 08-04-2023 Method of Extraction Voided Normal [facility] Comment on above: Performed By: #### 1 [id number] ####[facility] [address] [place] [address] Number of Jars 1 Invalid Interpretation Code [facility] Comment on above: Performed By: #### 1 [id number] ####[facility] [address] [place] [address] Specimen Urine Normal [facility] Comment on above: Performed By: #### 1 [id number] ####[facility] [address] [place] [address] Type of Service Technical Only Normal [facility] Comment on above: Performed By: #### 1 [id number] ####[facility] [address] [place] [address] Ambulatory Visit Summaryon 0 08-03-2023 Ambulatory Visit [...] Follow Up with Marcelino GALLARDO, Pamela Fam, URVaishali, URO When: Comments: Schedule Cysto, Rt ureteroscopy, [...] the caus (more content not included)... Normal [facility] Home Recordson 08-03 Correction Records [id number]#[id number] IFF Normal [facility] Patient Educationon 08-03-19 Patient Education [...] including vitamins, herbs, eye drops, creams, and jliz-nxl-pvehcdy medicines. ? Any problems you or family [...] care provider tells you to. ? Taking xepe-ikw-rqdwxyi medicines, vitamins, herbs, and supplements. General instructions [...] be monitor (more content not included)... 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 *possible abnormality of urinary system. Ordered due to rectal bleeding. Pt is a new pt. Never before seen in our office. Pt is hard of hearing she can read lips and she has an nurses aid from her home ([facility]) CT abdomen pelvis wo/w con done @ [facility] on 06/06/23 She tried giving [...] age Assessment/Plan 68 yo female resident of [facility] here for new patient evaluation of right hydroureteronephrosis. Pt is hard of hearing, can read lips and she has a nurses aid from her home with her. Mother had lung cancer. Denies any other urologic surgeries. 1. Hydroureteronephrosis (N13.30: Unspecified hydronephrosis) CT AP wo/w PO con @ [facility] on 06/06/23 - mod Rt-sided [...] cysto, if patient unable to submit from [facility] prior 3. Former smoker (Z87.891: Personal history of nicotine dependence) Smoked for a very little amount of time. 4. Aspirin long-term use (Z79.82: residential (curre (more content not included)... Normal [facility] Comment on above: Result Comment: [...] FRAZIER Date: 2022-07-05 15:47 Normal [facility] MAMM SCREEN 3D DERRICK CADon 05-14-2022 MG MAMM SCREEN 3D DERRICK CAD Patient: CANDIS JOHNSON Exam Date: 05/14/2022 : 1955 Gender:F Ordering : DR ANDER LANGLEY D.O. Admission #: [id number] Family : Order #: [id number] CLICK HERE TO VIEW EXAM RADIOLOGY REPORT [...] Treatments None Family Cancers None LOCATION: [facility] BREAST COMPOSITION: Almost entirely fatty. [...] MD on 05/14/2022 at 12:49 Normal [facility] BNPon 03-07-2022 Natriuretic peptide B (Bld) [Mass/Vol] 115.0 pg/mL Normal <=900.0 [facility] Comment on above: Performed By: #### B ASSOCIATE DIRECTOR OF BIOSTATISTICS, CMP, HSTROPN #### [facility] [address] [place] [address] Dr. Carl Zuñiga CBC AUTO DIFFon 03-07-2022 BASO # 0.0 103/ul Normal 0.0-0.1 [facility] Comment on above: Performed By: #### B ASSOCIATE DIRECTOR OF BIOSTATISTICS, CMP, HSTROPN #### [facility] [address] [place] [address] Dr. Carl Zuñiga Basophils/100 WBC (Bld) 0.0 % Critically low 0.2-2.0 [facility] Comment on above: Performed By: #### B ASSOCIATE DIRECTOR OF BIOSTATISTICS, CMP, HSTROPN #### [facility] [address] [place] [address] Dr. Carl Zuñiga EO # 0.1 103/ul Normal 0.0-0.7 [facility] Comment on above: Performed By: #### B ASSOCIATE DIRECTOR OF BIOSTATISTICS, CMP, HSTROPN #### [facility] [address] [place] [address] Dr. Carl Zuñiga Eosinophils/100 WBC (Bld) 1.0 % Normal 0.9-7.0 [facility] Comment on above: Performed By: #### B ASSOCIATE DIRECTOR OF BIOSTATISTICS, CMP, HSTROPN #### [facility] [address] [place] [address] Dr. Carl Zuñiga Erythrocyte distribution width (RBC) [Ratio] 13.7 % Normal 11.0-15.0 [facility] Comment on above: Performed By: #### B ASSOCIATE DIRECTOR OF BIOSTATISTICS, CMP, HSTROPN #### [facility] [address] [place] [address] Dr. Carl Zuñiga Hematocrit (Bld) [Volume fraction] 40.8 % Normal 36.0-48.0 [facility] Comment on above: Performed By: #### B ASSOCIATE DIRECTOR OF BIOSTATISTICS, CMP, HSTROPN #### [facility] [address] [place] [address] Dr. Carl Zuñiga Hemoglobin (Bld) [Mass/Vol] 13.1 g/dL Normal 12.0-16.0 [facility] Comment on above: Performed By: #### B ASSOCIATE DIRECTOR OF BIOSTATISTICS, CMP, HSTROPN #### [facility] [address] [place] [address] Dr. Carl Zuñiga IG # 0.02 10e3/ul Normal 0.00-0.03 [facility] Comment on above: Performed By: #### B ASSOCIATE DIRECTOR OF BIOSTATISTICS, CMP, HSTROPN #### [facility] [address] [place] [address] Dr. Carl Zuñiga IG % 0.3 % Normal 0.0-0.5 [facility] Comment on above: Performed By: #### B ASSOCIATE DIRECTOR OF BIOSTATISTICS, CMP, HSTROPN #### [facility] [address] [place] [address] Dr. Carl Zuñiga LYMPH # 0.9 103/ul Critically low 1.2-3.[address] [facility] Comment on above: Performed By: #### B ASSOCIATE DIRECTOR OF BIOSTATISTICS, CMP, HSTROPN #### [facility] [address] [place] [address] Dr. Carl Zuñiga Lymphocytes/100 WBC (Bld) 13.9 % Critically low 20.5-60.0 [facility] Comment on above: Performed By: #### B ASSOCIATE DIRECTOR OF BIOSTATISTICS, CMP, HSTROPN #### [facility] [address] [place] [address] Dr. Carl Zuñiga MANUAL DIFF REQ NO Normal [facility] Comment on above: Performed By: #### B ASSOCIATE DIRECTOR OF BIOSTATISTICS, CMP, HSTROPN #### [facility] [address] [place] [address] Dr. Carl Zuñiga MCH (RBC) [Entitic mass] 30.8 pg Normal 26.7-34.0 [facility] Comment on above: Performed By: #### B ASSOCIATE DIRECTOR OF BIOSTATISTICS, CMP, HSTROPN #### [facility] [address] [place] [address] Dr. Carl Zuñiga MCHC (RBC) [Mass/Vol] 32.1 g/dL Normal 29.9-35.2 [facility] Comment on above: Performed By: #### B ASSOCIATE DIRECTOR OF BIOSTATISTICS, CMP, HSTROPN #### [facility] [address] [place] [address] Dr. Carl Zuñiga MCV (RBC) [Entitic vol] 96.0 fL Normal 81.0-99.0 [facility] Comment on above: Performed By: #### B ASSOCIATE DIRECTOR OF BIOSTATISTICS, CMP, HSTROPN #### [facility] [address] [place] [address] Dr. Carl Zuñiga MONO # 0.6 103/ul Normal 0.3-0.8 [facility] Comment on above: Performed By: #### B ASSOCIATE DIRECTOR OF BIOSTATISTICS, CMP, HSTROPN #### [facility] [address] [place] [address] Dr. Carl Zuñiga Monocytes/100 WBC (Bld) 9.2 % Normal 1.7-12.0 [facility] Comment on above: Performed By: #### B ASSOCIATE DIRECTOR OF BIOSTATISTICS, CMP, HSTROPN #### [facility] [address] [place] [address] Dr. Carl Zuñiga NEUT # 5.1 103/ul Normal 1.4-6.5 [facility] Comment on above: Performed By: #### B ASSOCIATE DIRECTOR OF BIOSTATISTICS, CMP, HSTROPN #### [facility] [address] [place] [address] Dr. Carl Zuñiga Neutrophils/100 WBC (Bld) 75.6 % Critically high 43.0-75.0 [facility] Comment on above: Performed By: #### B ASSOCIATE DIRECTOR OF BIOSTATISTICS, CMP, HSTROPN #### [facility] [address] [address] [address] Carl Zuñiga Platelet mean volume (Bld) [Entitic vol] 8.5 fL Critically low 9.5-13.5 [facility] Comment on above: Performed By: #### B ASSOCIATE DIRECTOR OF BIOSTATISTICS, CMP, HSTROPN #### [facility] [address] [address] [address] Carl Zuñiga PLT 206 103/ul Normal 150-450 [facility] Comment on above: Performed By: #### B ASSOCIATE DIRECTOR OF BIOSTATISTICS, CMP, HSTROPN #### [facility] [address] [place] [address] Dr. Carl Zuñiga RBC 4.25 106/ul Normal 4.20-5.40 [facility] Comment on above: Performed By: #### B ASSOCIATE DIRECTOR OF BIOSTATISTICS, CMP, HSTROPN #### [facility] [address] [place] [address] Dr. Carl Zuñiga WBC 6.7 103/ul Normal 4.0-11.0 [facility] Comment on above: Performed By: #### B ASSOCIATE DIRECTOR OF BIOSTATISTICS, CMP, HSTROPN #### [facility] [address] [place] [address] Dr. Carl Zuñiga D-DIMERon 03-07-2022 D-DIMER <0.19 Normal <=0.59 [facility] Comment on above: Performed By: #### D DIM #### [facility] [address] [place] [address] Dr. Carl Zuñiga D-DIMER COMMENTS SEE BELOW Normal [facility] Comment on above: Result Comment: Incr [...] hospitalization. Performed By: #### D DIM #### [facility] [address] [place] [address] Dr. Carl Zuñiga PROF 14(COMP METB)on 022 Albumin [Mass/Vol] 3.9 g/dL Normal 3.4-5.0 [facility] Comment on above: Performed By: #### B ASSOCIATE DIRECTOR OF BIOSTATISTICS, CMP, HSTROPN #### [facility] [address] [place] [address] Dr. Carl Zuñiga Albumin/Globulin [Mass ratio] 1.5 {ratio} Normal [facility] Comment on above: Performed By: #### B ASSOCIATE DIRECTOR OF BIOSTATISTICS, CMP, HSTROPN #### [facility] [address] [place] [address] Dr. Carl Zuñiga ALP [Catalytic activity/Vol] 96 U/L Normal 46-116 [facility] Comment on above: Performed By: #### B ASSOCIATE DIRECTOR OF BIOSTATISTICS, CMP, HSTROPN #### [facility] [address] [place] [address] Dr. Carl Zuñiga ALT [Catalytic activity/Vol] 38 U/L Normal 14-59 [facility] Comment on above: Performed By: #### B ASSOCIATE DIRECTOR OF BIOSTATISTICS, CMP, HSTROPN #### [facility] [address] [place] [address] Dr. Carl Zuñiga Anion gap [Moles/Vol] 9.8 mmol/L Normal [facility] Comment on above: Performed By: #### B ASSOCIATE DIRECTOR OF BIOSTATISTICS, CMP, HSTROPN #### [facility] [address] [place] [address] Dr. Carl Zuñiga AST [Catalytic activity/Vol] 16 U/L Normal 15-37 [facility] Comment on above: Performed By: #### B ASSOCIATE DIRECTOR OF BIOSTATISTICS, CMP, HSTROPN #### [facility] [address] [place] [address] Dr. Carl Zuñiga Bilirubin [Mass/Vol] 0.5 mg/dL Normal 0.2-1.0 [facility] Comment on above: Performed By: #### B ASSOCIATE DIRECTOR OF BIOSTATISTICS, CMP, HSTROPN #### [facility] [address] [place] [address] Dr. Carl Zuñiga Calcium [Mass/Vol] 9.2 mg/dL Normal 8.5-10.1 [facility] Comment on above: Performed By: #### B ASSOCIATE DIRECTOR OF BIOSTATISTICS, CMP, HSTROPN #### [facility] [address] [place] [address] Dr. Carl Zuñiga Chloride [Moles/Vol] 103 mmol/L Normal 98-107 [facility] Comment on above: Performed By: #### B ASSOCIATE DIRECTOR OF BIOSTATISTICS, CMP, HSTROPN #### [facility] [address] [place] [address] Dr. Carl Zuñiga CO2 [Moles/Vol] 29.1 mmol/L Normal 21.0-32.0 [facility] Comment on above: Performed By: #### B ASSOCIATE DIRECTOR OF BIOSTATISTICS, CMP, HSTROPN #### [facility] [address] [place] [address] Dr. Carl Zuñiga Creatinine [Mass/Vol] 0.92 mg/dL Normal 0.55-1.02 [facility] Comment on above: Performed By: #### B ASSOCIATE DIRECTOR OF BIOSTATISTICS, CMP, HSTROPN #### [facility] [address] [place] [address] Dr. Carl Zuñiga EGFR-AF BURMESE >60 Normal >=60 [facility] Comment on above: Performed By: #### B ASSOCIATE DIRECTOR OF BIOSTATISTICS, CMP, HSTROPN #### [facility] [address] [place] [address] Dr. Carl Zuñiga EGFR-NON AF BURMESE >60 Normal >=60 [facility] Comment on above: Performed By: #### B ASSOCIATE DIRECTOR OF BIOSTATISTICS, CMP, HSTROPN #### [facility] [address] [place] [address] Dr. Carl Zuñiga Globulin (S) [Mass/Vol] 2.6 g/dL Normal [facility] Comment on above: Performed By: #### B ASSOCIATE DIRECTOR OF BIOSTATISTICS, CMP, HSTROPN #### [facility] [address] [place] [address] Dr. Carl Zuñiga Glucose [Mass/Vol] 109 mg/dL Critically high 74-[address] [facility] Comment on above: Performed By: #### B ASSOCIATE DIRECTOR OF BIOSTATISTICS, CMP, HSTROPN #### [facility] [address] [address] [address] Carl Zuñiga Potassium [Moles/Vol] 3.9 mmol/L Normal 3.5-5.1 [facility] Comment on above: Performed By: #### B ASSOCIATE DIRECTOR OF BIOSTATISTICS, CMP, HSTROPN #### [facility] [address] [address] [address] Carl Zuñiga Protein [Mass/Vol] 6.5 g/dL Normal 6.4-8.2 [facility] Comment on above: Performed By: #### B ASSOCIATE DIRECTOR OF BIOSTATISTICS, CMP, HSTROPN #### [facility] [address] [place] [address] Dr. Carl Zuñiga Sodium [Moles/Vol] 138 mmol/L Normal 136-145 [facility] Comment on above: Performed By: #### B ASSOCIATE DIRECTOR OF BIOSTATISTICS, CMP, HSTROPN #### [facility] [address] [address] [address] Carl Zuñiga Urea nitrogen [Mass/Vol] 14.0 mg/dL Normal 7.0-18.0 [facility] Comment on above: Performed By: #### B ASSOCIATE DIRECTOR OF BIOSTATISTICS, CMP, HSTROPN #### [facility] [address] [place] [address] Dr. Carl Zuñiga Urea nitrogen/Creatinine [Mass ratio] 15.2 mg/mg Normal [facility] Comment on above: Performed By: #### B ASSOCIATE DIRECTOR OF BIOSTATISTICS, CMP, HSTROPN #### [facility] [address] [place] [address] Dr. Carl Zuñiga TROPONIN, HIGH SENSITIVITYon 03-07-2022 HSTROP 2.8 pg/mL Critically low 4.0-51.[address] [facility] Comment on above: Result Comment: CUT- OFF POINTS HAVE BEEN ESTABLISHED BASED ON THE FOURTH UNIVERSAL DEFINITIONS OF MYOCARDIAL INFARCTION. THE UPPER REFERENCE LIMIT (URL) OF TROPONIN, DEFINED THE 99TH PERCENTILE OF cTnI DISTRIBUTION IN A REFERENCE POPULATION, HAS BEEN CONFIRMED THE DECISION THRESHOLD FOR [place] DIAGNOSIS. Performed By: #### B ASSOCIATE DIRECTOR OF BIOSTATISTICS, CMP, HSTROPN #### [facility] [address] [id number] Carl Zuñiga XR CHEST 1 Von [...] DIANA BREAUX Date: 2022-03-07 10:05 Normal [facility] CT CSPINE WO CONon CT [...] MARQUES PATEL Date: 2021-07-10 02:49 Normal [facility] CT HEAD WO CONon 07-10-2021 [...] MARQUES PATEL Date: 2021-07-10 02:44 Normal [facility] XR CHEST 1 Von 07-10-2021 [...] MARQUES PATEL Date: 2021-07-10 02:46 Normal [facility] XR PELVIS 1_2 VIEWSon 2020 [...] MARQUES PATEL Date: 2021-07-10 02:47 Normal [facility] Vital Signs Date Time Vital Sign Value Performing Clinician Carrol perez 12-07-2023 09:56-0400 Body weight 83.6 kg Laisha Coburn MD Work Phone: [facility] 12-07-2023 09:56-0400 Diastolic blood pressure 51 mm[Hg] Laisha Coburn MD Work Phone: [facility] 12-07-2023 09:56-0400 Heart rate 78 /min Laisha Coburn MD Work Phone: [facility] 12-07-2023 09:56-0400 Respiratory rate 17 /min Laisha Coburn MD Work Phone: [facility] 12-07-2023 09:56-0400 SaO2% (BldA) [Mass fraction] 99 % Laisha Coburn MD Work Phone: [facility] 12-07-2023 09:56-0400 Systolic blood pressure 98 mm[Hg] Laisha Coburn MD Work Phone: [facility] 11-28-2023 09:04-0400 Body temperature 97.7 [degF] El Ahmadi MD Work Phone: [facility] 11-28-2023 09:04-0400 Body weight 84.37 kg El Ahmadi MD Work Phone: [facility] 11-28-2023 09:04-0400 Diastolic blood pressure 78 mm[Hg] El Ahmadi MD Work Phone: [facility] 11-28-2023 09:04-0400 Heart rate 89 /min El Ahmadi MD Work Phone: [facility] 11-28-2023 09:04-0400 Respiratory rate 16 /min El Ahmadi MD Work Phone: [facility] 11-28-2023 09:04-0400 SaO2% (BldA) [Mass fraction] 99 % El Ahmadi MD Work Phone: [facility] 11-28-2023 09:04-0400 Systolic blood pressure 117 mm[Hg] El Ahmadi MD Work Phone: [facility] 11-12-2023 11:15-0400 Body temperature 97.9 [degF] Jayashree Avilez MD Work Phone: [facility] 11-12-2023 11:15-0400 Diastolic blood pressure 58 mm[Hg] Jayashree Avilez MD Work Phone: [facility] [employer] [facility] 11-12-2023 11:15-0400 Heart rate 74 /min Jayashree Avilez MD Work Phone: [facility] 11-12-2023 11:15-0400 Respiratory rate 18 /min Jayashree Avilez MD Work Phone: [facility] 11-12-2023 11:15-0400 SaO2% (BldA) [Mass fraction] 96 % Jayashree Avilez MD Work Phone: [facility] 11-12-2023 11:15-0400 Systolic blood pressure 116 mm[Hg] Jayashree Avilez MD Work Phone: [facility] 11-10-2023 03:41-0400 Body height 162.6 cm Jayashree Avilez MD Work Phone: [facility] 11-10-2023 03:41-0400 Body mass index (BMI) [Ratio] 33.34 kg/m2 Jayashree Avilez MD Work Phone: [facility] 11-10-2023 03:41-0400 Body weight 88.1 kg Jayashree Avilez MD Work Phone: [facility] 08-03-2023 08:23-0500 Blood Pressure Location Pamela Benson [facility] Encounters Encounter Date Encounter Type Care Provider Facility Start: 12-16-2023 End: 12-16-2023 [facility] Start: 12-08-2023 End: 12-08-2023 Social Work Lisa Kruse SWEATBAND PERFORATOR Hematology/Oncology Comment on above: Patient Update Start: 12-07-2023 End: 12-07-2023 ambulatory LAISHA COBURN Facility:[facility] Start: 12-07-2023 End: 12-07-2023 Patient encounter procedure Laisha Coburn MD Work Phone: Radiation Oncology Comment on above: 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) Start: 12-02-2023 End: 12-02-2023 ambulatory EL AHMADI Facility:[facility] Start: 11-28-2023 End: 11-29-2023 ambulatory Nathalie Saleh RN Radiation Oncology Comment on above: Patient Education Start: 11-28-2023 End: 11-29-2023 Patient encounter procedure El Ahmadi MD Work Phone: Radiation Oncology Comment on above: 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 LOGISTICS ANALYST Work Phone: Gynecology Oncology Comment on above: High grade squamous intraepithelial lesion (HGSIL), grade 3 SUDHA, on biopsy of cervix (Primary Dx) Start: 11-21-2023 End: 11-21-2023 ambulatory [facility] Start: 11-17-2023 ambulatory Edmond Matias ty:[id number] Start: 11-10-2023 End: 11-12-2023 Evaluation and management of inpatient Jayashree Avilez MD Work Phone: [address] MED SURG Comment on above: Bleeding from the ge nitourinary system Start: 11-09-2023 End: 11-09-2023 ambulatory Kobe Crespo Facility:[facility] Start: 11-02-2023 End: 11-02-2023 ambulatory KOBE CRESPO Not Available Start: 10-06-2023 End: 10-06-2023 [facility] Start: 09-23-2023 End: 09-23-2023 ambulatory [facility] Start: 08-26-2023 End: 08-26-2023 ambulatory [facility] Start: 08-24-2023 End: 08-24-2023 ambulatory Pamela Benson Facility: [facility] Start: 08-24-2023 End: 08-24-2023 Off-Site Pamela Benson [facility] Start: 08-04-2023 End: 08-04-2023 ambulatory Pamela Benson Facility:[facility] Start: 08-04-2023 End: 08-04-2023 Lab Drop off Pamela Benson [facility] Start: 08-03-2023 End: 08-03-2023 ambulatory Pamela Benson Facility:[facility] Start: 08-03-2023 End: 08-03-2023 Patient encounter procedure [facility]ela Benson [facility] Start: 07-27-2023 End: 07-27-2023 ambulatory KOBE ZACARIAS Not Available Start: 07-22-2023 ambulatory Pamela Lue Facility:[facility] Start: 07-06-2023 ambulatory Pamela Lue Facility:[facility] Start: 07-05-2023 End: 07-05-2023 ambulatory KOBE ZACARIAS Not Available Start: 05-25-2023 End: 05-25-2023 ambulatory KOBE ZACARIAS Not Available Start: 07-05-[address] [...] - S adam or Plasma Bernadette Metzger YOUTH AGENT.SR. LOGISTICS ANALYST Work Phone: [phone] Pamela Benson Plan of Treatment Date Care Activity Detail Author Start: 11-09-2028 Lipid panel [email or web address] Start: 11-10-2026 Diabetes Screening Diabetes Screenin g [facility] Start: 11-10-2024 GFR test (Diabetes, CKD 3-4, OR last GFR 15-59) GFR test (Diabetes, CKD 3-4, OR last GFR 15-59) [facility] Start: 03-11-2024 Influenza vaccination Influenz a Vaccine (Season Ended) [facility] Start: 02-09-2024 Influenza vaccination Flu vacc ine (Season Ended) [facility] Start: 01-16-2024 End: 12-27-2024 MR Pelvis WO and W contrast IV MRI FEMALE PELVIS WO/W IVCON Radiology Routine 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) Expected: 01/16/2024, Expires: 12/27/2024 [facility] Work Phone: Comment on above: Expected: 01/16/2024 , Expires: 12/27/2024 Start: 12-28-2023 End: 12-28-2023 ambulatory 12/28/2023 10:00 AM EDT Visit (SP) Office Gynecology Oncology [address] [place] [address] [place] [address] Mariam Mckinley MD [address] [place] [address] Vaginal Mass Gynecology Oncology Comment on above: Vaginal Mass Start: 12-09-2023 End: 12-09-2023 Patient encounter procedure Radiation Oncology Comment on above: Dr galdino ba and oral treating cervix pelvis full bladderper patient son needs this time and day for appt alyx ahmadi iv and ora l treating cervix pelvis full bladder//Per Son patient needs this time and day Start: 12-07-2023 End: 12-07-2023 Patient encounter procedure 12/07/2023 1:00 PM EDT Office Visit Radiation Oncology [address] [facility] [address] [place] [address] [place] [address] New Consult Radiation Oncology Comment on above: New Consult Start: 12-02-2023 End: 12-02-2023 Patient encounter procedure 12/02/2023 1:30 PM EDT Appointment Radiology Pet CT [address] [place] [address] Comment on above: pet scan Start: 11-28-2023 End: 11-28-2023 Patient encounter procedure 11/28/2023 9:00 AM EDT Office Visit Radiation Oncology [address] [place] [address] El Ahmadi MD [address] [place] [address] Dr Templeton Dx cevical cancer Radiation Oncology Comment on above: Dr Templeton Dx cevical cancer Start: 11-11-2023 Annual Wellness Visi t (Medicare) Annual Wellness Visit (Medicare) [facility] Start: 07-11-2023 Advance Directive Discussion Advance Directive Discussion [facility] Start: 07-11-2023 Behavioral Health Screening Behavioral Health Screening [facility] Start: 03-11-2023 Covid-19 Vaccine ( season) Covid-19 Vaccine ( season) [facility] Start: 03-11-2023 Covid-19 Vaccine ( season) Covid-19 Vaccine ( season) [facility] Start: 03-11-2023 COVID-19 Vaccine ( season) COVID-19 Vaccine ( season) [facility] Start: 2020 Pneumococcal 65+ yea rs Vaccine (1 of 1 - PCV) Pneumococcal 65+ years Vaccine (1 of 1 - PCV) [facility] Start: 2020 Pneumococcal Vaccine : 65+ (1 of 1 - PCV) Pneumococcal Vaccine: 65+ (1 of 1 - PCV) [facility] Start: 2020 Screening for osteoporosis Bone Density Screening [facility] Start: 2015 Respiratory Syncytia l Virus (RSV) or age 60 yrs+ (1 - 1-dose 60+ series) Respiratory Syncytial Virus (RSV) or age 60 yrs+ (1 - 1-dose 60+ series) [facility] Start: 2015 RSV Vaccine (1 - 1-dose 60+ series) RSV Vaccine (1 - 1-dose 60+ series) [facility] Start: 2010 Screening for osteoporosis DEXA (modify frequency per FRAX score) [facility] Start: 2005 Screening for malignant neoplasm of breast Breast cancer screen [facility] Start: 2005 Shingles vaccine (1 of 2) Shingles vaccine (1 of 2) [facility] Start: 2005 Shingrix Vaccine (1 of 2) Shingrix Vaccine (1 of 2) [facility] Start: 2000 Screening for malignant neoplasm of colon [facility] Start: 1995 Screening for malignant neoplasm of breast Mammogram Screening [facility] Start: 1974 DTaP/Tdap/Td vaccine (1 - Tdap) DTaP/Tdap/Td vaccine (1 - Tdap) [facility] Start: 1974 Urine microalbumin profile DTaP,Tdap,Td Vaccine (1 - Tdap) [facility] Start: 1973 Hepatitis C screening [facility] Start: 1967 Depression Screen Depression Screen [facility] Glucose [Mass/volume ] in Serum or Plasma [facility] Comment on above: 4X Daily (AC & HS) u ntil discontinued starting 11/10/2023 As Needed until disc ontinued starting 11/10/2023 OUTSIDE SURG PATH SLIDE REVIEW OUTSIDE SURG PATH SLIDE REVIEW Lab Routine High grade squamous intraepithelial lesion (HGSIL), grade 3 SUDHA, on biopsy of cervix Ordered: 11/23/2023 [facility] Work Phone: Comment on above: Ordered: 11/23/2023 Oxygen therapy [Minimum Data Set] Initiate Oxygen Therapy Protocol Respiratory Care Routine Daily until discontinued starting 11/10/2023 [facility] Comment on above: Daily until disconti nued starting 11/10/2023 End: 12-24-2024 PET+CT Guidance for localization of tumor of Skull base to mid-thigh-- W 18F-FDG IV NM PET/CT SKULL-THIGH INITIAL Radiology Routine 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) 1 Occurrences starting 11/25/2023 until 12/24/2024 [facility] Work Phone: Comment on above: 1 Occurrences starti ng 11/25/2023 until 12/24/2024 End: 11-10-2023 SPECIMEN REJECTION [facility] [employer] Work Phone: Comment on above: Once for 1 Occurrenc es starting 11/10/2023 until 11/10/2023 Surgical Pathology Surgical Path ology Lab Routine Bleeding from the genitourinary system Release Upon Ordering for 1 Occurrences starting 11/11/2023 [facility] Comment on above: Release Upon Orderin g for 1 Occurrences starting 11/11/2023 Immunizations Immunization Date Immunization Notes Care Provider Jairo burton 05-27-2022 SARS-CoV-2 (COVID-19 ) [id number] Pamela Benson [facility] 06-12-2021 SARS-CoV-2 (COVID-19 ) mRNA BNT-162b2 vax Pamela Lue [facility] 08-13-2020 SARS-CoV-2 (COVID-19 ) mRNA BNT-162b2 vax Pamela Lue [facility] Comment on above: Result Comment: 2023: [id number] 07-23-2020 SARS-CoV-2 (COVID-19 ) mRNA BNT-162b2 vax Pamela Lue [facility] Comment on above: Result Comment: 2023: [id number] Payers Date Payer Category Payer Self-pay 2023 Medicare [id number] 2020 Medicaid MEDICAID [facility] MEDICAID [id number] 2020-Present [phone] [address] [place] [address] Medicaid [id number] 2020 Medicaid [id number] 2020 Medicare MEDICARE MEDICAR E A AND B [id number] 2020-Present [phone] [address] [address] [place] [address] Medicare [id number] 2020 Medicare [id number] 1955 Unknown [id number] 1955 Unknown [id number] 1955 Unknown [id number] 1955 Unknown [id number] 1955 Unknown [id number] 1955 Unknown [id number] 1955 Unknown [id number] 1955 Unknown [id number] 1955 Unknown [id number] Unknown [id number] Social History Date Type Detail Facility Start: 08-03-2023 Tobacco smoking status Never s moked tobacco (finding) [facility] Start: 11-28-2023 End: 12-07-2023 Sex Assigned At Female [facility] consumption unknown [facility] Start: 1955 Sex Assigned At Not on file [facility] Start: 11-28-2023 Tobacco smoking stat [facility] Ex-smoker [facility] History of tobacco use Current smoker [facility] History of tobacco use Cigarette Smoker [facility] Start: 11-28-2023 End: 12-07-2023 Cigarettes smoked current (pack per day) - Reported 0.5 [facility] Start: 11-28-2023 Tobacco use and exposure Smokeless tobacco non-user [facility] Start: 11-28-2023 End: 12-07-2023 Alcohol intake Current drinker of alcohol (finding) [facility] National Score (1-10 0), lower number is lower risk 63 [facility] Functional Status Date Assessment Result Facility 08-03-2023 Functional Status N/A [facility] Clinical Notes 08-03-2023 to 12-16-2023 Lisa Kruse LSW - 12/08/2023 2:57 PM EDTTelephone Encounter - Skylar Harris - 12/08/2023 1:09 PM EDTTelephone Encounter - Skylar Harris - 12/08/2023 1:09 PM EDT Note Date & Type Note Facility 12-16-2023 Note Cardiology Clinic No te HPI: Candis Johnson is a 68 y.o. female With no reported cardiac history who presents to cardiology clinic at the request of her [facility] [employer] doctor for perioperative restratification prior to D&C and LEEP procedure. Of note: Patient is deaf. 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 She does her best to communicate by lipreading. She is accompanied by her personal driver son, grandson, who assists in communication. Patient here for follow up [facility] ED visit on 12/10/2023 for syncope. She was with her family at a restaurant and all of a sudden slumped over per son. They don't believe she was lightheaded/dizzy leading up to syncopal episode. Patient denies recent chest pain. Per ER notes, there was concern for VT vs junctional rhythm. Cardiology ROS: Review of Systems HENT: Positive for hearing loss. Cardiovascular: Positive for dyspnea on exertion (intermittent) and syncope (1 episode). All other systems reviewed and are negative. Past Medical History She has a past medical history of Diabetes mellitus ([facility]). Surgical History She has no past [...] (20 mg) by mouth in the morning. (Patient not taking: Reported on 11/21/2023) 30 tablet 11 furosemide (Lasix) 20 mg tablet Take 1 tablet (20 mg) by mouth in the morning. 90 tablet 3 lumateperone (Caplyta) 42 mg capsule Refills(s) 0 metFORMIN (Glucophage) 1,000 mg tablet Take 1,000 mg by mouth with breakfast and with evening meal. montelukast (Singulair) 10 mg tablet Refills(s) 0 nitroglycerin (NitrolinguaL) 400 mcg/spray spray Place 1 spray under the tongue. ranolazine (Ranexa) 500 mg 12 hr tablet Take 500 mg by mouth 2 times daily. sacubitril-valsartan (Entresto) 24-26 mg tablet Take 1 tablet by mouth 2 times daily. topiramate (Topamax) 25 mg tablet traZODone (Desyrel) 50 mg tablet No current facility-administered medications on file prior to visit. Allergies Patient has no known allergies. Physical Exam VITAL SIGNS: BP 118/64 (BP Location: Right arm, Patient Position: Sitting) Pulse 69 Ht 1.626 m (5' 4 ) Wt 85.3 kg (188 lb) SpO2 98% BMI 32.27 kg/m??? Constitutional: Well developed, Well nourished, No [...] Affect normal, Judgment normal, Mood normal. Impression: -Atypical chest pain, low risk stress test -Shortness of breath, improved -Syncope -VT vs Junctional rhythm -Advanced cervical cancer -HLD Plan: -Given syncopal episode, in addition to concern for arrhythmia, would recommend proceeding with 30-day event monitor in addition to repeat echocardiogram to assess LVEF, regional wall motion. -Had extensive discussion with her son, who is her legal guardian and POA. Son/family wish to avoid any additional testing/procedures/intervention s at this time, as they are seeking comfort care/hospice care route. -I asked the son to let us know if there is any change in their mind, and we will order additional testing at that time. Otherwise, at this time, we will respect their wis (more content not included)... [facility] 12-08-2023 Note HNO ID: [id number] Author: LISA KRUSE LSW Service: ? Author Type: Freight Sorter Type: Progress Notes Filed: 12/08/2023 15:01 Note Text: Patient appears on the [facility] First Time Radiation Treatment Report. SW completed a chart review and there was a note from today...Please cancel Candis's SIM scheduled 12/09/[address] Ahmadi. Patient's PET scan shows metastatic disease and patient will proceed with chemotherapy per Dr. Templeton. SW will remain available and will follow up as appropriate. BRENT Siddiqi [facility] 12-08-2023 History of Presen t illness Narrative Patient appears on the [facility] First Time Radiation Treatment Report. SW completed a chart review and there was a note from today...Please cancel Candis's SIM scheduled 12/09/[address] Ahmadi. Patient's PET scan shows metastatic disease and patient will proceed with chemotherapy per Dr. Templeton. SW will remain available and will follow up as appropriate. BRENT Siddiqi documented in this encounter [facility] 12-08-2023 Telephone encounter Note Report faxed to Dr. Gleason and Dr. Avilez. Images pushed to [facility]. [facility] 12-08-2023 Miscellaneous Notes Report faxed to Dr. Gleason and Dr. Avilez. Images pushed to [facility]. Cancelled appointment. Yumiko: Please cancel Candis's SIM [...] report to Dr. Gleason and Dr. Avilez. Mecca Boyle RN documented in this encounter [facility] 12-08-2023 Telephone encounter Note MRI not needed per chat [facility] 12-08-2023 Miscellaneous Notes MRI not needed per chat Spoke with patients son, he would like scheudled at [facility] since its easiest for nusing home I sent over order will check on later, thanks Called son to see where they would like the MRI scheduled, had to leave a message. MRI order pending your approval. Mecca Boyle RN Please place MRI orders Rad onc consult order signed for [facility] referral (brachytherapy). Can cancel consult request with Dr. Mckinley - she is established with charger tester onc out of [facility] (Dr. Avilez). Will need repeat MRI pelvis week of January 15. Thanks! El Dr Ahmadi- order pending your approval. Nathalie Saleh, PARAG Please place [facility] RAD onc consult I called and spoke to Angelina at [facility] and she said Candis does very [...] language. She has been a resident at [facility] assisted living for 4-5 years and does very well there per Landen. I notified Landen that Dr. Ahmadi is ordering a PET scan, rad onc consult at [facility] and trying to move up Candis's consult with Dr. Mckinley goran. Landen states between himself and [facility] transportation should not be an issue. Yumiko: 1. Please schedule PET scan goran. 2. Rad Onc consult at [facility] 3. Move up Dr. Mckinley's consult goran. Dr. Mckinley are you or your staff able to assist in rescheduling Ms. Johnson's consult with you goran per Dr. Ahmadi? She is currently scheduled for consult on 12/28/23. Thanks Mecca Boyle,PARAG documented in this encounter [facility] 12-08-2023 Telephone encounter Note Cancelled appointment. [facility] 12-08-2023 Telephone encounter Note Yumiko: Please cancel [...] report to Dr. Gleason and Dr. Avilez. Mecca Boyle RN [facility] 12-08-2023 Telephone encounter Note Spoke with patients son, he would like scheudled at [facility] since its easiest for nusing home I sent over order will check on later, thanks [facility] 12-08-2023 Telephone encounter Note Called son to see where they would like the MRI scheduled, had to leave a message. [facility] 12-07-2023 History of Presen t illness Narrative Radiation Oncology - New Patient/Consult Note PATIENT NAME: Candis Johnson PATIENT REQUESTING PROVIDER: Dr. Jayashree Avilez, Dr. Abisai Gleason, and Dr. El Ahmadi. 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 Cancer Staging No matching staging information was found for the patient. HPI: 68 year old female with above diagnosis, who presents for an opinion regarding the role of radiation therapy in the management of the patient's disease. Final recommendations will be communicated back to the requesting physician by way of the shared medical record, or letter to requesting physician via US mail. Ms. Johnson's oncologic history dates back to May [address] when she [address] to Dr. Crespo in [place] from her nursing facility with symptoms of post-menopausal bleeding and rectal bleeding. She underwent an exam and pap smear at that time, which showed LG-[id number]. She underwent colposcopy on 07/05/2023 and biopsies showed HGSIL. She was recommended to undergo EUA, D&C and possible LEEP in August, but this procedure was delayed due to pre-operative clearance for possible cardiac issues. She was eventually cleared and underwent this procedure on 11/10/[address] Jayashree Avilez including hysteroscopy, cervical biopsy, and cystoscopy (pathology below). ON exam, she noted a fixed cervical mass with bilateral parametrial involvement with fixation to the R pelvic sidewall. She was referred to Drs. Gleason (med onc) and Galdino (rad onc) for definitive chemo-radiation therapy and referred to me for discussion of brachytherapy. She underwent staging PET-CT on 12/02/2023 that was not yet read at the time of our visit, but on my review showed several hypermetabolic nodes in the RP, thoracic and L supraclavicular area that are suspicious for distant metastases. At this visit, Ms. Johnson notes that overall she is feeling well. 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 She lives in a nursing facility and has apparently been doing ok and eating fairly well. She has required blood transfusion for her bleeding. No other issues at this time. Pathology (11/10/2023): -- Diagnosis -- A. LEFT CERVIX, BIOPSY: -INVASIVE SQUAMOUS CELL CARCINOMA. -BACKGROUND HIGH-GRADE SQUAMOUS EPITHELIAL LESION (SUDHA-3). B. RIGHT VAGINAL CERVIX, BIOPSY: -PIECES OF SQUAMOUS MUCOSA WITH HIGH-GRADE SQUAMOUS EPITHELIAL LESION (SUDHA 3/VaIN 3). -NO DEFINITIVE INVASION IDENTIFIED. C. LEFT MONS SKIN LESION, BIOPSY: -SEBORRHEIC KERATOSIS. MRI Pelvis (11/10/2023): Impression 1. A 5.9 x 3.8 cm enhancing mass within the cervix extending into the lower uterine segment is highly suspicious for cervical cancer and there isextension into the bilateral parametria with apparent invasion [...] left greater than right, is likely metastatic. PET-CT (12/02/2023): IMPRESSION: FDG avid supraclavicular, intrathoracic, and abdominal/pelvic lymphadenopathy, suspicious for metastases although the intrinsic high attenuation is unusual. Inflammatory etiologies (e.g. sarcoidosis) is a differential consideration for some of the marina disease. HEAD/NECK: * FDG avid left supraclavicular lymphadenopathy. CHEST: * FDG avid intrathoracic lymphadenopathy. ABDOMEN/PELVIS: * FDG cervical neoplasm associated with moderate right hydroureteronephrosis. * FDG avid abdominal and pelvic lymphadenopathy. MUSCULOSKELETAL: * No FDG avid neoplastic process. ALLERGIES No Known Allergies PAST MEDICAL HISTORY Diagnosis Date Amnesia memory loss Asthma Back muscle spasm Bipolar disorder (HCC) Cervical cancer (HCC) COPD (chronic obstructive pulmonary disease) (HCC) Diabetes mellitus (HCC) Diaphragmatic hernia Gastrointestinal tract hemorrhage Hearing loss HTN (hypertension) Iron deficiency anemia Schizophrenia (HCC) Prior radiation therapy, collagen vascular disease, or inflammatory bowel disease: No Any implanted or external electric devices? No status: Post-menopausal. No past surgical history on file. No family history on file. Social History Tobacco Use Smoking status: Former Packs/day: .5 Types: Cigarettes Smokeless tobacco: Never Substance Use Topics Alcohol use: Yes Drug use: Not Currently FUND ACCOUNTING MANAGER HISTORY: The patient is postmenopausa. COMPLETE REVIEW OF SYSTEMS: All other ROS: negative As noted in HPI PHYSICAL EXAM: VS: There were no vitals taken for this visit. KPS: 70 General Appearance: Alert and oriented. No acute distress. HEENT: NCAT. Sclera anicteric. PERRL. EOMI. Chest: No respiratory distress. Abdomen: Soft. Nontender. Nondistended. FUND ACCOUNTING MANAGER: Deferred at this time. RADIOLOGY/LABORATORY DATA: see HPI ASSESSMENT AND PLAN: In summary, Ms. 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 I had a long discussion with Ms. Johnson and her son and daughter in law reviewing her history, pathology, and imaging findings and explaining her likely staging to the patient. I will follow up with radiology regarding the PET-CT. If she is metastatic, I would recommend that she start with systemic therapy, but if she is not metastatic, then she would proceed with chemo-radiation followed by HDR interstitial vs. intracavitary brachytherapy to help eradicate residual tumor cells after EBRT and to improve local control and survival. We also discussed the need for repeat MRI in the fifth week of treatment to help with treatment planning and assess interval response, as well as pre-operative assessment by the anesthesia team. It is possible that even with metastatic disease, she could receive consolidative radiation if she has a good response to systemic therapy. I explained the risks, benefits, alternative treatment options, logistics, equipment, personnel, and potential acute and late side effects of treatment. Ms. Johnson and her family had the opportunity to ask questions, which I answered to their satisfaction. We will follow up on the results of the PET-CT and then I will call the family to to let them know the results and plan for treatment accordingly. At the end of our visit, she was given my contact information and encouraged to call with any questions or concerns that may arise. Signed by: Laisah Coburn MD cc: El Ahmadi [id number] [facility] [id number] Jayashree Avilez Equipment Mechanic Oncology-[facility] Abisai Gleason Heme/Onc-[facility] documented in this encounter [facility] 12-07-2023 Note HNO ID: [id number] Author: LAISHA COBURN MD Service: ? Author Type: Physician Type: Progress Notes Filed: 12/15/2023 15:10 Note Text: Radiation Oncology - New Patient/Consult Note PATIENT NAME: Candis Johnson PATIENT REQUESTING PROVIDER: Dr. Jayashree Avilez, Dr. Abisai Gleason, and Dr. El Ahmadi. 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 Cancer Staging No matching staging information was found for the patient. HPI: 68 year old female with above diagnosis, who presents for an opinion regarding the role of radiation therapy in the management of the patient's disease. Final recommendations will be communicated back to the requesting physician by way of the shared medical record, or letter to requesting physician via [place] mail. Ms. Johnson's oncologic history dates back to May 2023 when she presented to Dr. Crespo in [facility] from her nursing facility with symptoms of post-menopausal bleeding and rectal bleeding. She underwent an exam and pap smear at that time, which showed LG-HARSH. She underwent colposcopy on 07/05/2023 and biopsies showed HGSIL. She was recommended to undergo EUA, DANDC and possible LEEP in August, but this procedure was delayed due to pre-operative clearance for possible cardiac issues. She was eventually cleared and underwent this procedure on 11/10/[address] Jayashree Avilez including hysteroscopy, cervical biopsy, and cystoscopy (pathology below). ON exam, she noted a fixed cervical mass with bilateral parametrial involvement with fixation to the R pelvic sidewall. She was referred to Drs. Gleason (med onc) and Galdino (rad onc) for definitive chemo-radiation therapy and referred to me for discussion of brachytherapy. She underwent staging PET-CT on 12/02/2023 that was not yet read at the time of our visit, but on my review showed several hypermetabolic nodes in the RP, thoracic and L supraclavicular area that are suspicious for distant metastases. At this visit, Ms. Johnson notes that overall she is feeling well. 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 She lives in a nursing facility and has apparently been doing ok and eating fairly well. She has required blood transfusion for her bleeding. No other issues at this time. Pathology (11/10/2023): -- Diagnosis -- A. LEFT CERVIX, BIOPSY: -INVASIVE SQUAMOUS CELL CARCINOMA. -BACKGROUND HIGH-GRADE SQUAMOUS EPITHELIAL LESION (SUDHA-3). B. RIGHT VAGINAL CERVIX, BIOPSY: -PIECES OF SQUAMOUS MUCOSA WITH HIGH-GRADE SQUAMOUS EPITHELIAL LESION (SUDAH 3/VaIN 3). -NO DEFINITIVE INVASION IDENTIFIED. C. LEFT MONS SKIN LESION, BIOPSY: -SEBORRHEIC KERATOSIS. MRI Pelvis (11/10/2023): Impression 1. A 5.9 x 3.8 cm enhancing mass within the cervix extending into the lower uterine segment is highly suspicious for cervical cancer and there isextension into the bilateral parametria with apparent invasion [...] left greater than right, is likely metastatic. PET-CT (12/02/2023): IMPRESSION: FDG avid supraclavicular, intrathoracic, and abdominal/pelvic lymphadenopathy, suspicious for metastases although the intrinsic high attenuation is unusual. Inflammatory etiologies (e.g. sarcoidosis) is a differential consideration for some of the marina disease. HEAD/NECK: * FDG avid left supraclavicular lymphadenopathy. CHEST: * FDG avid intrathoracic lymphadenopathy. ABDOMEN/PELVIS: * FDG cervical neoplasm associated with moderate right hydroureteronephrosis. * FDG avid abdominal and pelvic lymphadenopathy. MUSCULOSKELETAL: * No FDG avid neoplastic process. ALLERGIES No Known Allergies PAST MEDICAL HISTORY Diagnosis Date Amnesia memory loss Asthma Back muscle spasm Bipolar disorder (HCC) Cervical cancer (HCC) COPD (chronic obstructive pulmonary disease) (HCC) Diabetes mellitus (HCC) Diaphragmatic hernia Gastrointestinal tract hemorrhage Hearing loss HTN (hypertension) Iron deficiency anemia Schizophrenia (HCC) Prior radiation therapy, collagen vascular disease, or inflammatory bowel disease: No Any implanted or external electric devices? No status: Post-menopausal. No past surgical history on file. No family history on file. Social History Tobacco Use Smoking status: Former Packs/day: .5 Types: Cigarettes Smokeless tobacco: Never Substance Use Topics Alcohol use: Yes Drug use: Not Currently FUND ACCOUNTING MANAGER HISTORY: The patient is (more content not included)... [facility] 12-02-2023 Note HNO ID: [id number] Author: MIRIAN JIMENES RT(R) Service: ? Author Type: Technologist Type: Progress [...] 1340 PATIENT DISCHARGED TO: Ambulatory patient, left [place] department area. A Diagnostic radioactive procedure has taken place, with no further precautions necessary other than routine body substance precautions. More information regarding radiation safety can be found using this link: [email or web address] SIGNATURE: RT Aliyah(R) PATIENT NAME: Candis Johnson DATE: December 02, 2023 TIME: 2:23 PM PAGER/CONTACT #: [facility] 12-02-2023 Note HNO ID: [id number] Author: ASHWINI BUNCH RN Service: ? Author [...] DATE: December 02, 2023 TIME: 1:44 PM [facility] 11-28-2023 Telephone encounter Note MRI order pending your approval. Mecca oByle RN [facility] 11-28-2023 Telephone encounter Note Please place MRI orders [facility] 11-28-2023 Note HNO ID: [id number] Author: EL AHMADI MD Service: ? Author Type: Physician Type: Progress Notes Filed: 12/13/2023 04:59 Note Text: Radiation Oncology - New Patient/Consult Note PATIENT NAME: Candis Johnson PATIENT REQUESTING PHYSICIAN: Dr. Jayashree Avilez, Dr. Abisai Gleason DIAGNOSIS: Locally advanced cervical cancer. PATIENT IDENTIFICATION: This patient was seen in the Department of Radiation Oncology at the [facility] with El Ahmadi MD. She was accompanied today by her son. She is mostly deaf and much of the conversation was conducted with the son who is also the medical power of shop and alteration tailor. Final recommendations will be communicated back to the requesting physician by way of the shared medical record, or letter to requesting physician via US mail. HISTORY OF PRESENT ILLNESS: Ms. Johnson is a 68-year old deaf woman residing in an assisted living facility in [place], [place] and her son is her medical power of shop and alteration tailor. Per note from Dr. Gleason on 11/24/2023: 'Oncologic History: Candis Johnson is a very pleasant 68 y.o. female. Who is deaf was admitted on November 10, 2023 for surgical examination of the vaginal mass she did have an MRI of the pelvis A 5.9 x 3.8 cm enhancing mass [...] lymphadenopathy, left greater than right, is likely metastatic patient's underwent Operative Hysteroscopy, Cervix Biopsy, Cystoscopy, Excision of skin mole , and the final pathology as below Path Number: [id number] -- Diagnosis -- A. LEFT CERVIX, BIOPSY: -INVASIVE SQUAMOUS CELL CARCINOMA. -BACKGROUND HIGH-GRADE SQUAMOUS EPITHELIAL LESION (SUDHA-3). B. RIGHT VAGINAL CERVIX, BIOPSY: -PIECES OF SQUAMOUS MUCOSA WITH HIGH-GRADE SQUAMOUS EPITHELIAL LESION (SUDHA 3/VaIN 3). -NO DEFINITIVE INVASION IDENTIFIED. C. LEFT MONS SKIN LESION, BIOPSY: -SEBORRHEIC KERATOSIS. MRI report on November 10, 2023 IMPRESSION: 1. A 5.9 x 3.8 cm [...] left greater than right, is likely metastatic. Above compatible with at least stage IIIb cervical cancer and was evaluated by FUND ACCOUNTING MANAGER oncology and due to the fact fixed cervix mass, with bilateral parametrial involvement and the tumor along the right parametria was noted to be fixed to the right pelvic sidewall and decision was to proceed with concurrent chemo RT with weekly cisplatin and radiation also pending a PET/CT Tempus NGS and PD-L1 status from the cervix biopsy still pending.' She is referred today to the radiation medicine clinic to have a discussion regarding the role of radiation therapy to the pelvis in the definitive treatment of her advanced cervical cancer. INTERVAL HISTORY: The patient's son indicates that during the admission at the beginning of the month, she did require 2 units of blood and continues to note vaginal bleeding. PAST MEDICAL HISTORY: PAST MEDICAL HISTORY Diagnosis Date Amnesia memory loss Asthma Back muscle spasm Bipolar disorder (HCC) Cervical cancer (HCC) COPD (chronic obstructive pulmonary disease) (HCC) Diabetes mellitus (HCC) Diaphragmatic hernia Gastrointestinal tract hemorrhage Hearing loss HTN (hypertension) Iron deficiency anemia Schizophrenia (HCC) PAST SURGICAL HISTORY: No past surgical history on file. FAMILY HISTORY: No family history on file. 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 She had a legal guardian in the past and her son is now the medical power of shop and alteration tailor. She also has two other children. RADIATION HISTORY: The patient denies any history of therapeutic radiation. ALLERGIES: ALLERGIES No Known Allergies MEDICATIONS: Current Outpatient Medications: atorvastatin (LIPITOR) 40 mg tablet aspirin 81 mg cap TRULICITY 0.75 mg/0.5 mL pen injector cholecalciferol (VITAMIN D3) 5,000 unit tab acarbose (PRECOSE) 100 mg tablet acetaminophen (TYLENOL) 500 mg tablet CAPLYTA 42 (more content not included)... [facility] 11-28-2023 History of Presen t illness Narrative Images from the original note were not included. Radiation Oncology - New Patient/Consult Note PATIENT NAME: Candis Johnson PATIENT REQUESTING PHYSICIAN: Dr. Jayashree Avilez, Dr. Abisai Gleason DIAGNOSIS: Locally advanced cervical cancer. PATIENT IDENTIFICATION: This patient was seen in the Department of Radiation Oncology at the [facility] with El Ahmadi MD. She was accompanied today by her son. She is mostly deaf and much of the conversation was conducted with the son who is also the medical power of shop and alteration tailor. Final recommendations will be communicated back to the requesting physician by way of the shared medical record, or letter to requesting physician via US mail. HISTORY OF PRESENT ILLNESS: She is referred today to the radiation medicine clinic to have a discussion regarding the role of radiation therapy in the treatment of . INTERVAL HISTORY/REVIEW OF SYSTEMS: She otherwise denies any recent fevers/chills, new headaches, changes in weight/appetite, difficulty with speech/swallowing, shortness of breath, chest pain/palpitations, abdominal pain, nausea/vomiting, change in bowel/urinary function, difficulty with gait/balance. The remainder of the review of systems was performed and was otherwise non-contributory except as described above. PAST MEDICAL HISTORY: PAST MEDICAL HISTORY Diagnosis Date Amnesia memory loss Asthma Back muscle spasm Bipolar disorder (HCC) Cervical cancer (HCC) COPD (chronic obstructive pulmonary disease) (HCC) Diabetes mellitus (HCC) Diaphragmatic hernia Gastrointestinal tract hemorrhage Hearing loss HTN (hypertension) Iron deficiency anemia Schizophrenia (HCC) PAST SURGICAL HISTORY: No past surgical history on file. FAMILY HISTORY: No family history on file. 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 She had a legal guardian in the past and her son is now the medical power of shop and alteration tailor. She also has two other children. RADIATION HISTORY: The patient denies any history of therapeutic radiation. ALLERGIES: ALLERGIES No Known Allergies MEDICATIONS: Current Outpatient Medications: atorvastatin (LIPITOR) 40 mg tablet aspirin 81 mg cap TRULICITY 0.75 mg/0.5 mL pen injector cholecalciferol (VITAMIN D3) 5,000 unit tab acarbose (PRECOSE) 100 mg tablet acetaminophen (TYLENOL) 500 mg tablet CAPLYTA 42 mg capsule sacubitril-valsartan (ENTRESTO) 24-26 mg tablet famotidine (PEPCID) 40 mg tablet ferrous sulfate 325 mg (65 mg iron) tablet furosemide (LASIX) 20 mg tablet metFORMIN (GLUCOPHAGE) 1,000 mg tablet montelukast (SINGULAIR) 10 mg tablet ranolazine ER (RANEXA) 500 mg 12 hr tablet topiramate (TOPAMAX) 25 mg tablet traZODone (DESYREL) 50 mg tablet cyanocobalamin (VITAMIN B-12) 1,000 mcg tab albuterol HFA (PROVENTIL HFA, VENTOLIN HFA) 90 mcg/actuation inhaler ondansetron orally disintegrating (ZOFRAN ODT) 4 mg disintegrating tablet aluminum-magnesium hydroxide (MAG-AL) 200-200 mg/5 mL suspension ipratropium (ATROVENT) 0.02 % nebulizer solution hydrocortisone (ANUSOL-HC) 2.5 % rectal cream fluticasone (FLONASE) 50 mcg/actuation nasal spray magnesium hydroxide (MOM) 400 mg/5 mL suspension menthol (BIOFREEZE, MENTHOL,) 5 % topical gel aluminum-magnesium hydroxide-simethicone 200-200-20 mg/5 mL suspension pseudoephedrine (SUDAFED) 30 mg tablet PHYSICAL EXAMINATION: GENERAL: middle-aged woman sitting in chair, in no acute distress. VITALS: BP 117/78 Pulse 89 Temp 97.7 Resp 16 Wt 186 lb (84.4kg) SpO2 99% KPS: 70 HEENT: NC/AT, anicteric sclera HEART: S1S2 LUNGS: non-labored breathing ABDOMEN: soft MUSCULOSKELETAL: no peripheral edema, moves all extremities. NEURO: deaf LABORATORY DATA: PATHOLOGIC DATA: 11/11/2023 -- Diagnosis -- A. LEFT CERVIX, BIOPSY: -INVASIVE SQUAMOUS CELL CARCINOMA. -BACKGROUND HIGH-GRADE SQUAMOUS EPITHELIAL LESION (SUDHA-3). B. RIGHT VAGINAL CERVIX, BIOPSY: -PIECES OF SQUAMOUS MUCOSA WITH HIGH-GRADE SQUAMOUS EPITHELIAL LESION (SUDHA 3/VaIN 3). -NO DEFINITIVE INVASION IDENTIFIED. C. LEFT MONS SKIN LESION, BIOPSY: -SEBORRHEIC KERATOSIS. RADIOLOGIC DATA: MRI Pelvis (11/10/2023) IMPRESSION: 1. A 5.9 x 3.8 cm [...] left greater than right, is likely metastatic. FINDINGS: Image quality significantly degraded by motion [...] structures are unremarkable. Minimal free fluid. IMPRESSION: Ms. Johnson is a 68-year old deaf woman residing in an assisted living facility and her son is her medical power of shop and alteration tailor. She was recently diagnosed with advanced cervical cancer after presenting with abnormal vaginal bleeding status post biopsy on 11/11/2023 confirming invasive squamous cell carcinoma from the left cervix. MRI of the pelvis from 11/10/2023 described a an approximate 6 cm enhancing mass within the cervix extending into the lower uterine segment with extension into the bilateral parametria with apparent invasion of the bladder wall and mild extension into the upper vagina. Also noted was metastatic bilateral external iliac lymphadenopathy left greater than right. She is scheduled for a PET/CT later this week. She has met with FUND ACCOUNTING MANAGER oncologist Dr. Avilez and medical oncologist Dr. Templeton and is referred today to the radiation medicine clinic to have a discussion regarding the role of radiation therapy to the pelvis in the definitive treatment of her locally advanced cervical cancer. I spent time with the patient and her son in decision making and discussion regarding the indications for, logistics of, and toxicity of radiation therapy to the pelvis in this definitive setting. Multiple questions were answered as they arose including a discussion of the mechanism of action of radiation therapy as well as potential causes for normal tissue toxicity. Based upon this discussion, informed consent was obtained, and we agreed to the following: RECOMMENDATIONS: 1. She will complete her staging workup with PET/CT scheduled for later this week. 2. If the above confirms disease confined to the pelvis, would recommend moving forward with definitive external beam radiation therapy to the areas of disease in the pelvis and the pelvic lymph nodes with concurrent chemotherapy followed by brachytherapy boost to the residual disease to be performed at [facility] by one of my colleagues. 3. Referral will be made to my charger tester radiation oncology colleagues at [facility] for evaluation and treatment recommendations including making arrangements for brachytherapy boost if they are in agreement. The patient and her son understand the plan as outlined above. All of their questions were answered to their full satisfaction prior to the end of this consultation. They have been provided with our contact information should they have any further questions or concerns in the interim. Thank you for allowing us to participate in the care of this patient. Signed: El Ahmadi MD I spent a total of 60 minutes on the date of the service which included preparing to see the patient, [id number] patient care, and counseling and educating the patient/family/caregiver. This document has been created with the use of voice recognition technology. It may contain inaccuracies, misspellings, inaccurate syntax or inappropriate word context that are a result of the inadequacies/shortcomings of said technology/software. documented in this encounter [facility] 11-28-2023 Telephone encounter Note Rad onc consult order signed for main campus referral (brachytherapy). Can cancel consult request with Dr. Mckinley - she is established with charger tester onc out of [facility] (Dr. Avilez). Will need repeat MRI pelvis week of January 15. Thanks! El [facility] 11-28-2023 Nurse Note Pacemaker/Defibrillator?N Previous Cancer(s)?N Previous Radiation?N Lupus/Scleroderma?N On body monitoring device?N [facility] 11-28-2023 Nurse Note Pacemaker/Defibrillator?N Previous Cancer(s)?N Previous Radiation?N Lupus/Scleroderma?N On body monitoring device?N documented in this encounter [facility] 11-28-2023 Nurse Note Radiation Therapy - Patient Education Note PATIENT NAME: Candis Johnson PATIENT November 28, 2023 [facility] FACILITY/LOCATION: [facility] READINESS TO LEARN Cognitive Ability: Confused at [...] device: No Signed by: Nathalie Saleh RN [facility] 11-28-2023 Nurse Note Radiation Therapy - Patient Education Note PATIENT NAME: Candis Johnson PATIENT November 28, 2023 [facility] FACILITY/LOCATION: [facility] READINESS TO LEARN Cognitive Ability: Confused at [...] Nathalie Saleh RN documented in this encounter [facility] 11-28-[address] Ahmadi- kaelyn pending your approval. Nathalie Saleh RN [facility] 11-28-2023 Telephone encounter Note Please place [facility] RAD onc consult [facility] 11-28-2023 Note Education (RADTSA) CANDIS JOHNSON ([id number]) 1955 F DEF Date Time Provider Department 11/28/23 NATHALIE SALEH Reason for Visit: Patient Education [91] Visit Notes: >> Nathalie Saleh RN Mon November 28, 2023 10:22 AM Status: Signed Radiation Therapy - Patient Education Note PATIENT NAME: Candis Johnson PATIENT November 28, 2023 [facility] FACILITY/LOCATION: [facility] READINESS TO LEARN Cognitive Ability: Confused at [...] Known Allergies) Date Reviewed: 11/28/2023 Reviewed by: Mecca Boyle LPN - Fully Assessed Encounter Status:Closed by NATHALIE SALEH on 11/28/23 [facility] 11-25-2023 Telephone encounter Note I called and spoke to Angelina at [facility] and she said Candis does very [...] language. She has been a resident at [facility] assisted living for 4-5 years and does very well there per Landen. I notified Landen that Dr. Ahmadi is ordering a PET scan, rad onc consult at [facility] and trying to move up Candis's consult with Dr. Elías zimmer. Landen states between himself and [facility] transportation should not be an issue. Yumiko: 1. Please schedule PET scan goran. 2. Rad Onc consult at [facility] 3. Move up Dr. Mckinley's consult goran. Dr. Mckinley are you or your staff able to assist in rescheduling Ms. Johnson's consult with you goran per Dr. Ahmadi? She is currently scheduled for consult on 12/28/23. Thanks Mecca Boyle RN [facility] 11-12-2023 Hospital course Narrative Equipment Mechanic/Onc Discharge Summary [facility] Patient Name: Candis Johnson Patient : [...] examination of vaginal mass as transfer from [facility]; HD#1 (11/09): Patient is hard of hearing [...] Follow-up care, restrictions reviewed. Wil Mai MD Hand Assembler Resident [facility] 11/12/2023, 9:07 AM documented in this encounter [facility] 11-12-2023 History of Presen t illness Narrative Gynecology Oncology Progress Note Candis Johnson is a 68 y.o. female HD#3, POD#1 who transferred from [place] due to concern for vaginal mass Patient [...] Johnson 68 y.o. female HD#3 transferred from [place] due to concern for vaginal mass - [...] with Deafness - Discussed with nursing at [facility] and patient's son, Landen - Per [...] significant clearance testing in anticipation for her charger tester/urologic procedures - 09/09/23: myocardial perfusion imagining normal - 09/09/23: ECHO: EF 55-60%; normal RV size/function. Bilateral enlargement. Grade 2 diastolic dysfunction. - Repeat EKG 11/09: Normal sinus rhythm, anterior infarct age undetermined (old, seen on EKG on 08/15/23) - Nitroglycerin ordered PRN - Ranolazine not ordered inpatient - Continue to monitor Anemia - Admit Hgb @ [facility] 6.5 - S/p 2u pRBC Hgb 8.9 - Admit Hgb at [facility] 8.7 - Hgb 5/3; 9.0 - Will [...] insulin requirement Schizophrenia - Per nursing at [facility] and patient's son, patient has significant [...] y.o. female HD#2, POD#0 who transferred from [facility] due to concern for vaginal mass Patient [...] Johnson 68 y.o. female HD#2 transferred from [facility] due to concern for vaginal mass - [...] with Deafness - Discussed with nursing at [facility] and patient's son, Landen - Per [...] significant clearance testing in anticipation for her charger tester/urologic procedures - 09/09/23: myocardial perfusion imagining normal - 09/09/23: ECHO: EF 55-60%; normal RV size/function. Bilateral enlargement. Grade 2 diastolic dysfunction. - Repeat EKG 11/09: Normal sinus rhythm, anterior infarct age undetermined (old, seen on EKG on 08/15/23) - Nitroglycerin ordered PRN - Ranolazine not ordered inpatient - Continue to monitor Anemia - Admit Hgb @ [facility] 6.5 - S/p 2u pRBC Hgb 8.9 - Admit Hgb at [facility] 8.7 - Hgb /; 9.0 [...] insulin requirement Schizophrenia - Per nursing at [facility] and patient's son, patient has significant [...] a 68 y.o. female HD#2 transferred from [facility] due to concern for vaginal mass Patient [...] Johnson 68 y.o. female HD#2 transferred from [facility] due to concern for vaginal mass - [...] with Deafness - Discussed with nursing at [facility] and patient's son, Landen - Per [...] significant clearance testing in anticipation for her charger tester/urologic procedures - 09/09/23: myocardial perfusion imagining normal - 09/09/23: ECHO: EF 55-60%; normal RV size/function. Bilateral enlargement. Grade 2 diastolic dysfunction. - Repeat EKG 11/09: Normal sinus rhythm, anterior infarct age undetermined (old, seen on EKG on 08/15/23) - Nitroglycerin ordered PRN - Ranolazine not ordered inpatient - Continue to monitor Anemia - Admit Hgb @ [facility] 6.5 - S/p 2u pRBC Hgb 8.9 - Admit Hgb at [facility] 8.7 - AM CBC pending [...] insulin requirement Schizophrenia - Per nursing at [facility] and patient's son, patient has significant [...] as the patient's health care power of shop and alteration tailor. Landen has been advised of the risks, benefits and alternatives to the procedure. Ladnen has been informed of the risks of [...] Evaluation: A cardiology evaluation was completed at [facility] prior to her transfer. Records have been reviewed. Lab results have been reviewed Proceed with surgical evaluation as planned Jayashree Avilez MD Gynecologic Oncology Obstetric/Gynecology Resident Interval Note At time of rounding, patient in MRI suite obtaining MRI pelvis. Dr. Avilez, FUND ACCOUNTING MANAGER/ONC attending, present at bedside to discuss evaluation and management plans with patient's son, Landen. Landen is the patient's power of shop and alteration tailor and medical decision maker. Paperwork uploaded to [...] ms QTc Calculation (Bazett) 410 ms P Bryan 40 degrees R Bryan 6 degrees T Bryan 20 degrees EKG 12 Lead Collection Time: 11/10/23 4:32 AM Result Value Ref Range Ventricular Rate 65 BPM Atrial Rate 65 BPM P-R Interval 172 ms QRS Duration 86 ms Q-T Interval 406 ms QTc Calculation (Bazett) 422 ms P Bryan 42 degrees R Bryan 7 degrees T Bryan 19 degrees Comprehensive Metabolic Panel w/ Reflex [...] Sample Expiration 11/13/2023,2359 Arm Band Number [id number] ABO/Rh O POSITIVE Antibody Screen NEGATIVE Lipid [...] 65 - 105 mg/dL Annabelle Moss MD BRICK TESTER Resident, PGY2 [place], [place] 11/10/2023, 5:14 PM Attending Physician Statement [...] the resident. Jayashree Avilez MD Gynecologic Oncology OUTSIDE SALES ACCOUNT REPRESENTATIVE ALL NOTES Facility/Department: [address] SURG CLINICAL BEDSIDE SWALLOW EVALUATION NAME: Candis Johnson : 1955 ADMISSION DATE: 11/10/2023 ADMITTING DIAGNOSIS: has Vaginal mass on their problem list. Date of Eval: 11/10/2023 Evaluating Therapist: JODIE Damon Current Diet level: Current Diet : NPO Current Liquid Diet : NPO Primary Complaint: Candis Johnson is a 68 y.o. female presents to [facility] as a direct transfer from [facility] for concern for vaginal cancer. All the information is derived from a paper chart from [facility]. We do not have access to medical [...] Normal in all situations Treatment Plan Requires OUTSIDE SALES ACCOUNT REPRESENTATIVE Intervention: Yes 1-2X D/C Recommendations: Ongoing speech [...] Patient Education Response: Verbalizes understanding Therapy Time 2090-5288 JODIE Damon 11/10/2023 11:10 AM Unable to complete admission assessment. Patient has impaired hearing. documented in this encounter [facility] 10-06-2023 Note Cardiology Clinic No te Chief Complaint: preop risk stratification HPI: PMHx: Candis Johnson is a 68 y.o. female With no reported cardiac history who presents to cardiology clinic at the request of her BRICK TESTER doctor for perioperative restratification prior to D&C and LEEP procedure. Of note: Patient is deaf. 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 She does her best to communicate by lipreading. She is accompanied by her personal driver today, who assists in communication. Today, [...] test 09/09/2023 N (more content not included)... [facility] 10-06-2023 Note Patient here for 2 w ekwok follow up SOB, atypical chest pain, and [...] All other systems reviewed and are negative. [facility] 09-23-2023 Note Cardiology Clinic No te Chief Complaint: preop risk stratification HPI: Candis Johnson is a 68 y.o. female With no reported cardiac history who presents to cardiology clinic at the request of her BRICK TESTER doctor for perioperative restratification prior to D&C and LEEP procedure. Of note: Patient is deaf. 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 She does her best to communicate by lipreading. She is accompanied by her personal driver today, who assists in communication. Today, [...] past medical history of Diabetes mellitus ([facility]). Surgical History She has no past [...] -Further recommendations regardi (more content not included)... [facility] 09-23-2023 Note Concerns: Not much s tates some swelling in legs and some back back, chest pain seems to be getting better [facility] 08-26-2023 Note New patient here to establish care. Ref from Dr. Crespo for surgery clearance prior to D&C and LEEP procedure. This is scheduled for 08/31 at [facility] per patient. She had labs and EKG last week. Says she gets intermittent chest pain and SOB w/ exertion. Review of Systems HENT: Positive for hearing loss. Cardiovascular: Positive for chest pain (intermittent) and dyspnea on exertion (intermittent). All other systems reviewed and are negative. [facility] 08-26-2023 Note Cardiology Clinic No te Chief Complaint: preop risk stratification HPI: Candis Johnson is a 68 y.o. female With no reported cardiac history who presents to cardiology clinic at the request of her BRICK TESTER doctor for perioperative restratification prior to D&C and LEEP procedure. Of note: Patient is deaf. 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 She does her best to communicate by lipreading. She is accompanied by her personal driver today, who assists in communication. As per patient and her personal driver, patient denies any cardiac history. She [...] past medical history of Diabetes mellitus ([facility]). Surgical History She has no past [...] HLD -Optimize med (more content not included)... [facility] 08-04-2023 Evaluation + Plan note Diagnostic Tests PendingUrine Cytology ([facility]) 08/04/23 [facility] 08-03-2023 Hospital Discharg e instructions Patient [...] including vitamins, herbs, eye drops, creams, and ueyj-drn-pzfzeap medicines. Any problems you or family members [...] health care provider tells you to. Taking ruai-frz-uwlxhnb medicines, vitamins, herbs, and supplements. General instructions [...] provider. Document Revised: 10/22/2022 Document Reviewed: 10/22/2022 [employer] Patient Education 2022 [employer]om. 08/03/2023 09:37:21 Hematuria, Adult Hematuria, Adult Hematuria [...] Follow these instructions at home: Medicines Take abwl-umi-tuuyxla and prescription medicines only as told by [...] or the blood stops without treatment. Take zygm-exm-kobotte and prescription medicines only as told by your health care provider. Drink enough fluid to keep your urine pale yellow. This information is not intended to replace advice given to you by your health care provider. Make sure you discuss any questions you have with your health care provider. Document Revised: 02/25/2021 Document Reviewed: 02/25/2021 [employer] Patient Education 2022 Blossom. Follow Up Care 07/13/2023 11:34:42 With:Marcelino GALLARDO, Pamela Fam URL, URO Address: When: Unknown Comments:Schedule Cysto, Rt ureteroscopy, possible biopsy, and Rt stent placement [facility] Evaluation + Plan note No data available for this section [facility] Evaluation note Diagnosis Vaginal mass- Primary Other specified symptom associated with female genital organs Bleeding from the genitourinary system Other specified disorders of urinary tract documented in this encounter [facility] note* Diagnosis High grade squamous intraepithelial lesion (HGSIL), grade 3 SUDHA, on biopsy of cervix- Primary documented in this encounter [facility] note* Diagnosis 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)- Primary documented in this encounter [facility] note* Diagnosis 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)- Primary documented in this encounter [facility] note* Diagnosis 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)- Primary documented in this encounter [facility] note* Diagnosis 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)- Primary [facility] Discharge instructions No data available for this section [facility] Discharge instructions* Attachments The following attachments cannot be sent through Care Everywhere. * Hysteroscopy: Post-op (Slovak) * Cystoscopy: Post-op (Slovak) [facility] No data available for this section [facility] reason for referral (narrative)* Diagnostic Procedure Only (Routine) - Pending Review Specialty Diagnoses / Procedures Referred By Contac t Referred To Contact MOLECULAR & FUNCTIONAL IMAGING Diagnoses 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) Procedures NM PET/CT SKULL-THIGH INITIAL PET IMAGING CT ATTENUATION SKULL BASE MID-THIGH El Ahmadi MD [address] [place] [address] [place] [address] Molecular & Functional Imaging [address] [place] [address] Referral ID Status Reason Start Date Expiration Date Visits Requested Visits Authorized [id number] Pending Review Auto-Generat ed Referral 11/25/2023 12/24/2024 1 1 [facility] Summary Purpose Family History No Family [...] Referral Specialty Diagnoses / Procedures Referred By Contac t Referred To Contact MR IMAGING Diagnoses 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) Procedures MRI FEMALE PELVIS WO/W IVCON MRI PELVIS W/O & W/CONTRAST MATERIAL lE Ahmadi MD [address] [place] [address] [place] [address] [place] [address] Referral ID Status Reason Start Date Expiration Date Visits Requested Visits Authorized [id number] Pending Review Auto-Generat ed Referral 01/16/2024 12/27/2024 1 1 Specialty Diagnoses / Procedures Referred By Contac t Referred To Contact Radiation Oncology Diagnoses 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) Procedures RAD/ONC CONSULT OFFICE/OUTPATIENT [facility] MDM 60 MINUTES El Ahmadi MD [address] [place] [address] [place] [address] Referral ID Status Reason Start Date Expiration Date V isits Requested Visits Authorized [id number] Closed PCP Requested Referral 11/29/2023 11/27/2024 1 1 Additional Source Comments INFORMATION SOURCE (unrecogn ized section and content) DATE CREATED AUTHOR 07/05/2022 [facility] DATE CREATED AUTHOR AUTHOR'S ORGANIZ ATION 11/04/2023 [facility] EPIC DATE CREATED AUTHOR AUTHOR'S ORGANIZ ATION 12/13/2023 [facility] DATE CREATED AUTHOR AUTHOR'S ORGANIZ ATION 12/17/2023 [facility] DATE CREATED AUTHOR AUTHOR'S ORGANIZ ATION 12/17/2023 [facility] DATE CREATED AUTHOR AUTHOR'S ORGANIZ ATION 12/20/2023 [facility] DATE CREATED AUTHOR AUTHOR'S ORGANIZ ATION 12/29/2023 Corona Willingham [facility] Patient Care team informatio n (unrecognized section and content) Traffic Attendant Relationship Specialty Start Date End Date Ander Langley [address] [place] [phone] PCP - General Internal Medicine 11/10/23 Reason for Visit (unrecogniz ed section and content) Specialty Diagnoses / Procedures Referred By Contac t Referred To Contact Diagnoses Vaginal mass vaginal cancer, anemia bleeding Jayashree Avilez MD [address] [place] [id number] [facility] [address] [place] [address] Referral ID Status Reason Start Date Expiration Date Visits Re quested Visits Authorized [id number] 1 1 Reason Comments Patient Education Reason Comments Orders Patient Update Reason Comments Patient Update Reason Onset Date Comments Consult Simulation Request Form 11/28/2023 Reason Comments Consult Specialty Diagnoses / Procedures Referred By Contac t Referred To Contact Radiation Oncology Diagnoses 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) Procedures RAD/ONC CONSULT OFFICE/OUTPATIENT [facility] 60 MINUTES El Ahmadi MD [address] [place] [address] [place] [address] Referral ID Status Reason Start Date Expiration Date V isits Requested Visits Authorized [id number] Closed PCP Requested Referral 11/29/2023 11/27/2024 1 1 Scheduled Active and Recently Administ ered Medications (unrecognized section and content) Medication Order 11/10/2023 11/11/2023 11/12/2023 acarbose (PRECOSE) tablet 100 mg 100 mg, Oral, 2 times daily, First dose on Tue11/10/23 at 1000, Until Discontinued 1118 (Given - Provider: Radha Cadet RN)2147 (Given - Provider: Sally Garcia RN) 0855 (Held - Provider: Snehal Chahal RN - Reason: Pt NPO)1624 (SEP Hold - Provider: [facility] [employer] - Reason: Unreviewed Transfer Orders)193 (MAR Unhold - Provider: Marysol Head RN)195 (Given - Provider: Marysol Head RN) 0805 (Given - Provider: Janis Schwarz RN)2100 (Due) famotidine (PEPCID) 40 mg in sodium chloride (PF) 0.9 % 10 mL injection (COMPLETED) 40 mg, IntraVENous, ONCE, 1 dose, On Tue11/10/23 at 1000, IV Push over minimum of 2 minutes - Dilute with 10 mL NS 1118 (Given - Provider: Radha Cadet RN) insulin lispro (HUMALOG) injection vial 0-10 Units 0-10 Units, SubCUTAneous, 3 TIMES DAILY WITH MEALS, First dose on Tue11/10/23 at 0800, Until Discontinued, Medium Dose Corrective [...] parameters not met)1624 (MAR Hold - Provider: [facility] [employer] - Reason: Unreviewed Transfer Orders)1700 (Automatically Held - Provider: [facility] [employer])193 (SEP Unhold - Provider: Marysol Head [...] on Rosina 11/10/23 at 1000, Until Discontinued 111 (Given - Provider: Radha Cadet RN)2034 (Given - Provider: Sally Garcia RN) 0855 (Given - Provider: Snehal Chahal RN)1623 (MAR Hold - Provider: Tiffany Autohold - Reason: Unreviewed Transfer Orders)1931 (MAR Unhold - Provider: Marysol Head RN)1955 (Given - Provider: Marysol Head RN) 0804 (Given - Provider: Janis Schwarz, PARAG)2100 (Due) sodium chloride 0.9 % bolus 30 [...] Snehal Chahal RN)1624 (MAR Hold - Provider: Mar [employer]oh[employer] - Reason: Unreviewed Transfer Orders)1932 (MAR Unhold - Provider: Marysol Head RN) [...] (New Bag - Provider: CLEMENTINE Caballero CRNA)1931 (MAR Unhold - Provider: Marysol Head RN)2001 (Rate/Dose Verify - Provider: Marysol Head RN)2001 (Rate/Dose Verify - Provider: Marysol Head RN) 041 (Rate/Dose Change - Provider: Marysol Head RN)041 (Rate/Dose Change - Provider: Marysol Head RN)041 (Rate/Dose Verify - Provider: Marysol Head RN)0610 [...] Tiffany Autohold - Reason: Unreviewed Transfer Orders)1931 ([facility] Unhold - Provider: Marysol Head RN) acetaminophen (TYLENOL) tablet 1,000 mg 1,000 mg, Oral, EVERY 6 HOURS PRN, Starting on Rosina 11/10/23 at 0934, Until Discontinued, Pain Mild (1-3) 162 (SEP Hold - Provider: Tiffany Autohold - Reason: Unreviewed Transfer Orders)1931 ([facility] Unhold - Provider: Marysol Head RN) albuterol sulfate HFA (PROVENTIL;VENTOLIN;PROAIR) 108 (90 Base) MCG/ACT inhaler 2 puff 2 puff, Inhalation, EVERY 6 HOURS PRN, Starting on Rosina 11/10/23 at 0937, Until Discontinued, Wheezing, Initiate RT Bronchodilator Protocol: Yes - Inpatient Protocol 1623 ([facility] Hold - Provider: Tiffany Autohold - Reason: Unreviewed Transfer Orders)1931 ([facility] Unhold - Provider: Marysol Head RN) dextrose [...] 60 minutes, discontinue dextrose 10% infusion. 1623 ([facility] Hold - Provider: [facility] [employer] - Reason: Unreviewed Transfer Orders)1931 ([facility] Unhold - Provider: Marysol Head RN) dextrose [...] at 100 mL/hour and notify provider. 1623 ([facility] Hold - Provider: Tiffany Autohold - Reason: Unreviewed Transfer Orders)1931 ([facility] Unhold - Provider: Marysol Head RN) dextrose [...] at 100 mL/hour and notify provider. 1623 ([facility] Hold - Provider: Tiffany Autohold - Reason: Unreviewed Transfer Orders)1931 ([facility] Unhold - Provider: Marysol Head RN) fluticasone (FLONASE) 50 MCG/ACT nasal spray 2 spray 2 spray, Each Nostril, DAILY PRN, Starting on Rosina 11/10/23 at 0938, Until Discontinued, Rhinitis 1623 ([facility] Hold - Provider: [facility] [employer] - Reason: Unreviewed Transfer Orders)1931 ([facility] Unhold - Provider: Marysol Head RN) gadoteridol (PROHANCE) injection 17 mL (COMPLETED) 17 mL, IntraVENous, IMG ONCE PRN, 1 dose, Starting on Rosina 11/10/23 at 1721, Until Rosina 11/10/23 at 1834, Other 1833 (Given - Provider: Tiarra Quinn) glucagon injection [...] minutes x 2 and notify provider. 1623 ([facility] Hold - Provider: [facility] Aut[employer] - Reason: Unreviewed Transfer Orders)1931 ([facility] Unhold - Provider: Marysol Head RN) glucose [...] LESS THAN 70 mg/dL, notify provider. 1623 ([facility] Hold - Provider: [facility] Aut[employer] - Reason: Unreviewed Transfer Orders)1931 ([facility] Unhold - Provider: Marysol Head RN) HYDROmorphone (DILAUDID) injection 0.5 mg (CANCELED) 0.5 mg, IntraVENous, EVERY 5 MIN PRN, 2 doses, Starting on Tue11/11/23 at 1703, Until Tue11/11/23 at 1922, Pain Severe (7-10), For Phase I. If Phase II oral narcotics have been administered in the last 60 minutes, do not administer IV narcotics unless specifically approved by provider., PACU only 182 (Given - Provider: Vy Agee RN) ipratropium 0.5 mg-albuterol 2.5 mg (DUONEB) nebulizer solution 1 Dose 1 Dose, Inhalation, EVERY 4 HOURS PRN, Starting on Rosina 11/10/23 at 0939, Until Discontinued, Shortness of Breath, Initiate RT Bronchodilator Protocol: Yes - Inpatient Protocol 1623 ([facility] Hold - Provider: Tiffany Autohold - Reason: Unreviewed Transfer Orders)1931 ([facility] Unhold - Provider: Marysol Head RN) nitroGLYCERIN (NITROSTAT) SL tablet 0.4 mg 0.4 mg, SubLINGual, EVERY 5 MIN PRN, Starting on Rosina 11/10/23 at 0943, Until Discontinued, Chest pain, Place 1 tablet under tongue upon chest pain, wait 5 minutes and may repeat up to 3 doses in 15 minutes. Do not crush or break. Substituted for nitroGLYCERIN translingual spray (NITROLINGUAL).. 1623 ([facility] Hold - Provider: Tiffany Autohold - Reason: Unreviewed Transfer Orders)1931 ([facility] Unhold - Provider: Marysol Head RN) ondansetron (ZOFRAN) injection 4 mg(Linked Group 2) 4 mg, IntraVENous, EVERY 6 HOURS PRN, Starting on Rosina 11/10/23 at 0353, Until Discontinued, Nausea, Vomiting, Administer if oral route cannot be used. 1623 (MAR Hold - Provider: Tiffany Autohold - Reason: Unreviewed Transfer Orders)1931 ([facility] Unhold - Provider: Marysol Head RN) ondansetron (ZOFRAN-ODT) disintegrating tablet 4 mg(Linked Group 2) 4 mg, Oral, EVERY 8 HOURS PRN, Starting on Rosina 11/10/23 at 0353, Until Discontinued, Nausea, Vomiting 1623 ([facility] Hold - Provider: Tiffany Autohold - Reason: Unreviewed Transfer Orders)1931 ([facility] Unhold - Provider: Marysol Head RN) sod [...] Orders)193 (MAR Unhold - Provider: Marysol Head, PARAG)195 (Given - Provider: Marysol Head RN) Linked [...] or prosecute any alcohol or drug abuse patient.[facility] the event this information is protected by the Federal Confidentiality of Alcohol and Drug Abuse Patient Records regulations: The Federal rules restrict any use of the information to criminally investigate or prosecute any alcohol or drug abuse patient.[facility] the event this information is protected by the Federal Confidentiality of Alcohol and Drug Abuse Patient Records regulations: The Federal rules restrict any use of the information to criminally investigate or prosecute any alcohol or drug abuse patient.[facility] the event this information is protected by the Federal Confidentiality of Alcohol and Drug Abuse Patient Records regulations: The Federal rules restrict any use of the information to criminally investigate or prosecute any alcohol or drug abuse patient.[facility] the event this information is protected by the Federal Confidentiality of Alcohol and Drug Abuse Patient Records regulations: The Federal rules restrict any use of the information to criminally investigate or prosecute any alcohol or drug abuse patient.[facility] the event this information is protected by the Federal Confidentiality of Alcohol and Drug Abuse Patient Records regulations: The Federal rules restrict any use of the information to criminally investigate or prosecute any alcohol or drug abuse patient.[facility] Hospital[facility] the event this information is protected by the Federal Confidentiality of Alcohol and Drug Abuse Patient Records regulations: The Federal rules restrict any use of the information to criminally investigate or prosecute any alcohol or drug abuse patient.[facility] the event this information is protected by the Federal Confidentiality of Alcohol and Drug Abuse Patient Records regulations: The Federal rules restrict any use of the information to criminally investigate or prosecute any alcohol or drug abuse patient.[facility] FOR RECORDS PERTAINING TO PATIENTS WHO ARE [...] BE BASED ON THE PRIMARY CLINICAL RECORDS. [facility] [employer] [facility]. provides no warranty or guarantee of the accuracy or completeness of information in this document.
[2024-01-03 18:21] LABS: Lactate/Lactic Acid 2.6 mmol/L (0.4-2.0)
[2024-01-03 19:20] LABS: Lactate/Lactic Acid 2.1 mmol/L (0.4-2.0)
--- OUTSIDE RECORDS SUMMARY | 2024-01-03 19:30 | XMS_ITS | CCD ---
Author Organization [facility] ion [facility] Care Team Providers Care Account Services Representative Name Role Phone MARKER, DR SALINAS Consulting [...] 8 hours as needed. 0 05/20/2023 Active [id number] 200 actuat albuterol 0.09 mg/actuat metered dose [...] (ALISSA NASE) 50 mcg/actuation nasal spray 1 Mammoth once daily. 0 Active furosemide 20 mg [...] times a day. 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] Onset: 4 Episodic [...] Range Facility Consultation Noteon 12-27-19 Consultation Note [id number]#1.00TI FF Normal [facility] Pathology Noteon 12-27-2023 Pathology Note [id number]#1.00T IFF Normal [facility] RAD - Nuclear Medicine Repor ton 12-27-2023 RAD - Nuclear Medicine Report [id number]#1.00T IFF Normal [facility] Office Visiton 12-16-2023 Follow-up visit [id number] Kelby Johnson 1955 F Date Provider Department Center 12/16/2023 [facility]8-GUERDA AGUILAR CELESTE [facility] Family History Problem Relation Age of Onset Coronary artery disease Mother Cancer Father Diabetes Father Family Status - Relation Status Age at Mother Father Level of Service:24786 [place] OFFICE/OUTPATIENT ESTABLISHED LOW MDM 20 MIN Normal [facility] Operative Reporton Operative Report [id number]#1.00T [facility] (RADTSA) CANDIS JOHNSON ([id number]) 1955 F DEF Date Time Provider Department [...] Gleason and Dr. Avilez. Images pushed to [facility]. Allergies As of Date: 12/08/2023 (No Known [...] fluticasone (FLONASE) 50 mcg/actuation nasal spray 1 Mammoth once daily. - magnesium hydroxide (MOM) 400 [...] Encounter Status:Closed by MECCA BOYLE on 12/08/23 [facility] CNOVigor 12-07-2023 CNOV Office Visit (RADTMN ) CANDIS JOHNSON ([id number]) 1955 F DEF Date Time Provider Department [...] when she presented to Dr. Crespo in [place] from her nursing facility with symptoms of [...] Clinic [facility] Consultation Noteon 12-02-19 Consultation Note [id number]#1.00TI FF Normal [facility] PET/CT SKULL-THIGH INITon 12-02-2023 NM PET/CT SKULL-THIGH [...] * Radiopharmaceutical Dose: 9.7 mCi * Radiopharmaceutical: S25-Vfzepcyjaxxkitrhgg (FDG) COMPARISON: No previous FDG PET/CT available CORRELATION: OS MRI pelvis 11/10/2023; OS CT abdomen/pelvis 06/06/2023 RESULT: REFERENCES: SUV reference values: * Blood pool (descending aorta) activity: SUVmax 3.0 * Background liver activity: SUVmax 3.3 Recruiting Manager (topogram) images: No additional findings. Notes and [...] signed by: (more content not included)... Normal [facility] Orders Onlyon 12-01-2023 Orders Only [id number] Kelby Johnson 1955 F Date Provider Department Center 12/01/2023 [id number], [facility] CELESTE Barreto Family History Problem Relation Age of Onset Coronary artery disease Mother Cancer Father Diabetes Father Family Status - Relation Status Age at Mother Father Normal [facility] CNOVon 11-28-2023 CNOV Office Visit (RADTSA ) CANDIS JOHNSON ([id number]) 1955 F DEF Date Time Provider Department [...] the Department of Radiation Oncology at the [facility] with El Ahmadi MD. She was accompanied today by her son. She is mostly deaf and much of the conversation was conducted with the son who is also the medical power of labourers. Final recommendations will be communicated back to the requesting physician by way of the shared medical record, or letter to requesting physician via US mail. HISTORY OF PRESENT ILLNESS: Ms. Johnson is a 68-year old deaf woman residing in an assisted living facility in [place], [place] and her son is her medical power of labourers. Per note from Dr. Gleason on 11/24/2023: [...] the final pathology as below Path Number: [id number] -- Diagnosis -- A. LEFT CERVIX, BIOPSY: [...] IIIb cervical cancer and was evaluated by [facility] oncology and due to the fact fixed [...] lives in an assisted living facility in [place], [place]. She had a legal guardian in the past and her son is n (more content not included)... Normal [facility] Armani 11-25-2023 [facility] Telephone (RADTSA) CANDIS JOHNSON ([id number]) 1955 F DEF Date Time Provider Department 11/25/23 EL AHMADI During your visit today, we recorded the following information about you: Mecca Boyle LPN 11/25/2023 2:29 PM Signed I called and spoke to Angelina at [facility] and she said Candis does very well [...] language. She has been a resident at [facility] assisted living for 4-5 years and does very well there per Landen. I notified Landen that Dr. Ahmadi is ordering a PET scan, rad onc consult at [facility] and trying to move up Candis's consult with Dr. Mckinley goran. Landen states between himself and [facility] transportation should not be an issue. Yumiko: 1. Please schedule PET scan goran. 2. Rad Onc consult at [facility] 3. Move up Dr. Mckinley's consult goran. Dr. Mckinley are you or your staff able to assist in rescheduling Ms. Johnson's consult with you goran per Dr. Ahmadi? She is currently scheduled for consult on 12/28/23. Thanks PARAG Aguilar Tiffany 11/28/2023 7:[address] [facility] RAD onc consult Nathalie Saleh RN 11/28/2023 7:[address] Ahmadi- order pending your approval. PARAG Alves Saju, MD 11/28/2023 10:28 AM Signed Rad onc consult order signed for [facility] referral (brachytherapy). Can cancel consult request with Dr. 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 Avilez). Will need repeat MRI [...] patients son, he would like scheudled at [facility] since its easiest for nusing home I sent over order will check on later, thanks Sean Thayer Yumiko 12/08/2023 12:08 PM Signed MRI not needed per chat Allergies As of Date: 11/25/2023 (Not on File) Date Reviewed: Never Reviewed Reason for Visit: Orders [681] Patient Update [1234] Primary Visit Diagnosis: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) [C53.8] Order(s):RAD/ONC CONSULT [9037] Order #: [id number]: 1 FUTURE MRI FEMALE PELVIS WO/W IVCON [5795323] Order #: [id number] FUTURE [] iv contrast (will be provided [...] fluticasone (FLONASE) 50 mcg/actuation nasal spray 1 Mammoth once daily. - mag (more content not included)... Normal [facility] OUTSIDE SURG PATH SLIDE REVI EWon 11-25-2023 CASE REPORT Normal [facility] Comment on above: Order Comment: Speci men Type: FORMALIN-FIXED PARAFFIN-EMBEDDED TISSUE SPECIMEN Ordering Facility: [facility] Outside Review Address: , , Result Comment: [facility]urg 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 Normal [facility] Comment on above: Order Comment: Speci men Type: FORMALIN-FIXED PARAFFIN-EMBEDDED TISSUE SPECIMEN Ordering Facility: [facility] Outside Review Address: , , Performed By: #### L [id number] #### [facility] CLIA [id number] [address] [place] [address] OF [facility] FINAL DIAGNOSIS Normal [facility] Comment on above: Order Comment: Speci men Type: FORMALIN-FIXED PARAFFIN-EMBEDDED TISSUE SPECIMEN Ordering Facility: [facility] Outside Review Address: , , Result Comment: Outs miguel angel case from [place], [place] ([id number], collected 11/11/2023) A. Left cervix, biopsy: - Invasive squamous cell carcinoma, see comment. B. 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 Performed By: #### L [id number] #### [facility] CLIA [id number] [address] [place] [address] OF [facility]FORM[facility] Normal [facility] Comment on above: Order Comment: Speci men Type: FORMALIN-FIXED PARAFFIN-EMBEDDED TISSUE SPECIMEN Ordering Facility: [facility] Outside Review Address: , , Result Comment: Diag nostic interpretation performed at [facility], [address] [place] [address] CLIA# [id number] Truck Operator: Navdeep Pickering M.D. Performed By: #### L [id number] #### [facility] CLIA [id number] [address] [place] [address] [place] Orders Onlyon 11-21-2023 Orders Only [id number] Kelby Johnson 1955 F Date Provider Department Center 11/21/2023 [facility] CELESTE Barreto Family History Problem Relation Age of Onset Coronary artery disease Mother Cancer Father Diabetes Father Family Status - Relation Status Age at Mother Father Normal [facility] Consultation Noteon 11-14-19 24 Consultation Note [id number]#1.00T IFF Normal [facility] Glucose,Whole Bloodon 2023 Glucose [Mass/Vol] 124 mg/dL High 65-105 [facility] Glucose [Mass/Vol] 87 mg/dL Normal 65-105 [facility] POC Glucose Fingerstickon Glucose [Mass/Vol] 124 mg/dL High 65 - 105 mg/dL [facility] Interpretation and review of laboratory results Abnormal [facility] Glucose [Mass/Vol] 87 mg/dL 65 - 105 mg/dL [facility] CBC with Auto Differentialon 11-11-2023 Basophils (Bld) [#/Vol] 0.03 10*3/uL [facility] Basophils/100 WBC (Bld) 0 % 0 - 2 % [facility] Eosinophils (Bld) [#/Vol] 0.31 10*3/uL [facility] Eosinophils/100 WBC (Bld) 5 % High 1 - 4 % [facility] Erythrocyte distribution width (RBC) [Ratio] 16.1 % High 11.8 - 14.4 % [facility] Hematocrit (Bld) [Volume fraction] 31.6 % Low 36.3 - 47.1 % [facility] Hemoglobin (Bld) [Mass/Vol] 9.0 g/dL Low 11.9 - 15.1 g/dL [facility] Immature granulocytes (Bld) [#/Vol] 0.04 10*3/uL [facility] Immature granulocytes/100 WBC (Bld) 1 % High [address] [facility] Interpretation and review of laboratory results Abnormal [facility] Lymphocytes/100 WBC (Bld) 18 % Low 24 - 43 % [facility] Lymphocytes/100 WBC (Bld) 1.19 % [facility] MCH (RBC) [Entitic mass] 27.4 pg 25.2 - 33.[address] [facility] MCHC (RBC) [Mass/Vol] 28.5 g/dL 28.4 - 34.8 g/dL [facility] MCV (RBC) [Entitic vol] 96.0 fL 82.6 - 102.[address] [facility] Monocytes/100 WBC (Bld) 14 % High 3 - 12 % [facility] Monocytes/100 WBC (Bld) 0.91 % [facility] Neutrophils/100 WBC (Bld) 62 % 36 - 65 % [facility] Nucleated RBC/100 WBC (Bld) [Ratio] 0.0 % 0.0 per [address] [facility] Platelet mean volume (Bld) [Entitic vol] 8.6 fL 8.1 - 13.[address] [facility] Platelets (Bld) [#/Vol] 413 10*3/uL [facility] RBC (Bld) [#/Vol] 3.29 10*6/uL Low 3.95 - 5.1 1 m/uL [facility] RBC (Bld) [#/Vol] ANISOCYTOSIS PRESENT [facility] Segmented neutrophils/100 WBC (Bld) 4.27 % [facility] WBC other (Bld) [#/Vol] 6.[address] [facility] CBC with Diffon 11-11-2023 Abs. Basophil 0.03 k/uL Normal 0.00-0.20 [facility] Comment on above: Performed By: #### C P, CDP #### [place] [address] Lathe Spotter: Guillaume Roman MD Abs.Imm.Granulocyte 0.04 k/uL Normal 0.00-0.30 [facility] Comment on above: Performed By: #### C P, CDP #### [facility] [employer] [address] [place] [address] Lathe Spotter: Guillaume Roman MD Abs.Neutrophil (Seg) 4.27 k/uL Normal 1.50-8.10 [facility] Comment on above: Performed By: #### C P, CDP #### [place] [address] Lathe Spotter: Guillaume Roman MD Basophils/100 WBC (Bld) 0 % Normal 0-2 [facility] Comment on above: Performed By: #### C P, CDP #### [address] [address] Lathe Spotter: Guillaume Roman MD Eosinophils (Bld) [#/Vol] 0.31 10*3/uL Normal 0.00-0.44 [facility] Comment on above: Performed By: #### C P, CDP #### [address] [address] Lathe Spotter: Guillaume Roman MD Eosinophils/100 WBC (Bld) 5 % High 1-4 [facility] Comment on above: Performed By: #### C P, CDP #### [address] [address] Lathe Spotter: Guillaume Roman MD Erythrocyte distribution width (RBC) [Ratio] 16.1 % High 11.8-14.4 [facility] Comment on above: Performed By: #### C P, CDP #### [address] [address] Lathe Spotter: Guillaume Roman MD Hematocrit (Bld) [Volume fraction] 31.6 % Low 36.3-47.1 [facility] Comment on above: Performed By: #### C P, CDP #### [address] [address] Lathe Spotter: Guillaume Roman MD Hemoglobin (Bld) [Mass/Vol] 9.0 g/dL Low 11.9-15.1 [facility] Comment on above: Performed By: #### C P, CDP #### [address] [address] Lathe Spotter: Guillaume Roman MD Immature granulocytes/100 WBC (Bld) 1 % High 0 [facility] Comment on above: Performed By: #### C P, CDP #### [address] [address] Lathe Spotter: Guillaume Roman MD Lymphocytes (Bld) [#/Vol] 1.19 10*3/uL Normal 1.10-3.70 [facility] Comment on above: Performed By: #### C P, CDP #### [address] [address] Lathe Spotter: Guillaume Roman MD Lymphocytes/100 WBC (Bld) 18 % Low 24-43 [facility] Comment on above: Performed By: #### C P, CDP #### [address] [address] Lathe Spotter: Guillaume Roman MD MCH (RBC) [Entitic mass] 27.4 pg Normal 25.2-33.5 [facility] Comment on above: Performed By: #### C P, CDP #### [place] [address] Lathe Spotter: Guillaume Roman MD MCHC (RBC) [Mass/Vol] 28.5 g/dL Normal 28.4-34.8 [facility] Comment on above: Performed By: #### C P, CDP #### [address] [address] Lathe Spotter: Guillaume Roman MD MCV (RBC) [Entitic vol] 96.0 fL Normal 82.6-102.9 [facility] Comment on above: Performed By: #### C P, CDP #### [address] [address] Lathe Spotter: Guillaume Roman MD Monocytes (Bld) [#/Vol] 0.91 10*3/uL Normal 0.10-1.20 [facility] Comment on above: Performed By: #### C P, CDP #### [place] [address] Lathe Spotter: Guillaume Roman MD Monocytes/100 WBC (Bld) 14 % High 3-12 [facility] Comment on above: Performed By: #### C P, CDP #### [address] [address] Lathe Spotter: Guillaume Roman MD Neutrophil (Seg) 62 % Normal 36-65 [facility] Comment on above: Performed By: #### C P, CDP #### [address] [address] Lathe Spotter: Guillaume Roman MD NRBC Automated 0.0 per 100 WBC Normal 0.0 [facility] Comment on above: Performed By: #### C P, CDP #### [address] [address] Lathe Spotter: Guillaume Roman MD Platelet mean volume (Bld) [Entitic vol] 8.6 fL Normal 8.1-13.5 [facility] Comment on above: Performed By: #### C P, CDP #### [address] [address] Lathe Spotter: Guillaume Roman MD Platelets (Bld) [#/Vol] 413 10*3/uL Normal 138-453 [facility] Comment on above: Performed By: #### C P, CDP #### [address] [address] Lathe Spotter: Guillaume Roman MD RBC (Bld) [#/Vol] 3.29 10*6/uL Low 3.95-5.11 [facility] Comment on above: Performed By: #### C P, CDP #### [address] [address] Lathe Spotter: Guillaume Roman MD RBC morphology finding Nom (Bld) ANISOCYTOSIS PRESENT Normal [facility] Comment on above: Performed By: #### C P, CDP #### [facility] [address] [place] [address] Lathe Spotter: Guillaume Roman MD WBC (Bld) [#/Vol] 6.8 10*3/uL Normal 3.5-11.3 [facility] Comment on above: Performed By: #### C P, CDP #### [address] [address] Lathe Spotter: Guillaume Roman MD Comp Metabolic Profon 2023 Albumin [Mass/Vol] 3.6 g/dL Normal 3.5-5.2 [facility] Comment on above: Performed By: #### C P, CDP #### [address] [address] Lathe Spotter: Guillaume Roman MD Albumin/Glob Ratio 2.0 Normal 1.0-2.5 [facility] Comment on above: Performed By: #### C P, CDP #### [address] [address] Lathe Spotter: Guillaume Roman MD Alkaline Phos 93 U/L Normal 35-104 [facility] Comment on above: Performed By: #### C P, CDP #### [address] [address] Lathe Spotter: Guillaume Roman MD ALT [Catalytic activity/Vol] 14 U/L Normal 10-35 [facility] Comment on above: Performed By: #### C P, CDP #### [address] [address] Lathe Spotter: Guillaume Roman MD Anion gap [Moles/Vol] 10 mmol/L Normal 9-16 [facility] Comment on above: Performed By: #### C P, CDP #### [address] [address] Lathe Spotter: Guillaume Roman MD AST [Catalytic activity/Vol] 33 U/L Normal 10-35 [facility] Comment on above: Performed By: #### C P, CDP #### [address] [address] Lathe Spotter: Guillaume Roman MD Bilirubin [Mass/Vol] 0.3 mg/dL Normal 0.00-1.20 [facility] Comment on above: Performed By: #### C P, CDP #### [address] [address] Lathe Spotter: Guillaume Rmoan MD Calcium [Mass/Vol] 8.8 mg/dL Normal 8.6-10.4 [facility] Comment on above: Performed By: #### C P, CDP #### [address] [address] Lathe Spotter: Guillaume Roman MD Chloride [Moles/Vol] 109 mmol/L High 98-107 [facility] Comment on above: Performed By: #### C P, CDP #### [address] [address] Lathe Spotter: Guillaume Roman MD CO2 [Moles/Vol] 19 mmol/L Low 20-31 [facility] Comment on above: Performed By: #### C P, CDP #### [address] [address] Lathe Spotter: Guillaume Roman MD Creatinine [Mass/Vol] 1.0 mg/dL High 0.50-0.90 [facility] Comment on above: Performed By: #### C P, CDP #### [address] [address] Lathe Spotter: Guillaume Roman MD GFR/1.73 sq M.predicted among non-blacks MDRD (S/P/Bld) [Vol rate/Area] 59 mL/min/{1.73_m2} Low >60 [facility] Comment on above: Result Comment: These [...] Performed By: #### C P, CDP #### [address] [address] Lathe Spotter: Guillaume Roman MD Glucose [Mass/Vol] 97 mg/dL Normal 74-99 [facility] Comment on above: Performed By: #### C P, CDP #### [address] [address] Lathe Spotter: Guillaume Roman MD Potassium [Moles/Vol] 4.3 mmol/L Normal 3.7-5.3 [facility] Comment on above: Result Comment: SPEC IMEN SLIGHTLY HEMOLYZED, RESULTS MAY BE ADVERSELY AFFECTED. Performed By: #### C P, CDP #### [address] [address] Lathe Spotter: Guillaume Roman MD Protein [Mass/Vol] 5.4 g/dL Low 6.6-8.7 [facility] Comment on above: Performed By: #### C P, CDP #### [address] [address] Lathe Spotter: Guillaume Roman MD Sodium [Moles/Vol] 138 mmol/L Normal 136-145 [facility] Comment on above: Performed By: #### C P, CDP #### [address] [address] Lathe Spotter: Guillaume Roman MD Urea nitrogen [Mass/Vol] 11 mg/dL Normal 8-23 [facility] Comment on above: Performed By: #### C P, CDP #### [facility] [address] [place] [address] Lathe Spotter: Guillaume Roman MD Comprehensive Metabolic Pane [facility] 11-11-2023 Albumin [Mass/Vol] 3.6 g/dL 3.5 - 5.2 g/dL [facility] Albumin/Globulin [Mass ratio] 2.0 {ratio} 1.0 - 2.[address] [facility] ALP [Catalytic activity/Vol] 93 U/L 35 - 104 U/L [facility] ALT [Catalytic activity/Vol] 14 U/L 10 - 35 U/L [facility] Anion gap [Moles/Vol] 10 mmol/L 9 - 16 mmol/L [facility] AST [Catalytic activity/Vol] 33 U/L 10 - 35 U/L [facility] Bilirubin [Mass/Vol] 0.3 mg/dL 0.00 - 1.20 mg/dL [facility] Calcium [Mass/Vol] 8.8 mg/dL 8.6 - 10. 4 mg/dL [facility] Chloride [Moles/Vol] 109 mmol/L High 98 - 10 7 mmol/L [facility] CO2 [Moles/Vol] 19 mmol/L Low 20 - 31 mmol/L [facility] Creatinine [Mass/Vol] 1.0 mg/dL High 0.50 - 0.90 mg/dL [facility] Est, Glom Filt Rate 59 Low - [facility] Comment on above: These results are [...] [Mass/Vol] 97 mg/dL 74 - 99 mg/dL [facility] Interpretation and review of laboratory results Abnormal [facility] Potassium [Moles/Vol] 4.3 mmol/L 3.7 - 5.3 mmol/L [employer] Comment on above: SPECIMEN SLIGHTLY HE MOLYZED, RESULTS MAY BE ADVERSELY AFFECTED. Protein [Mass/Vol] 5.4 g/dL Low 6.6 - 8.7 g/dL [employer] Sodium [Moles/Vol] 138 mmol/L 136 - 145 mmol/L [facility] [employer] Urea nitrogen [Mass/Vol] 11 mg/dL 8 - 23 mg/dL [facility] [employer] [facility] [employer] Consultation Noteon 11-11-19 24 Consultation Note [id number]#1.00T IFF Normal [facility] EKG 12 LeadOrdered By: Butch Nascimento on 11-11-2023 Atrial Rate 62 BPM [employer] Work Phone: P Hardin 40 degrees [facility] Work Phone: P-R Interval 168 ms [employer] [facility] Work Phone: Q-T Interval 404 ms [employer] [facility] Work Phone: QTc Calculation (Bazett) 410 ms [facility] Work Phone: R Hardin 6 degrees [facility] Work Phone: T Hardin 20 degrees [employer] Work Phone: Ventricular Rate 62 BPM [place] [facility] RV ID Work Phone: EKG 12 Leadon 11-11-2023 Normal sinus rhythm Cannot rule out Anterior infarct , age undetermined Abnormal ECG No previous ECGs available [facility] ST[facility] MUSE Wily Nova MD / Butch Nascimento MD - 11/11/2023 Normal sinus rhythm Cannot rule out Anterior infarct , age undetermined Abnormal ECG No previous ECGs available [facility] Atrial Rate 65 BPM [facility] P Hardin 42 degrees [facility] P-R Interval 172 ms [facility] Q-T Interval 406 ms [facility] [employer] QTc Calculation (Bazett) [address] [facility] R Hardin [address] [facility] T Hardin [address] [facility] Ventricular Rate 65 BPM [facility] Normal sinus rhythm Normal ECG When compared with ECG of 10-NOV-2023 04:31, No significant change was found [facility] ST[facility] MUSE Wily Nova MD / Butch Nascimento MD - 11/11/2023 Normal sinus rhythm Normal ECG When compared with ECG of 10-NOV-2023 04:31, No significant change was found [facility] Glucose,Whole Bloodon 2023 Glucose [Mass/Vol] 120 mg/dL High 65-105 [facility] Glucose [Mass/Vol] 92 mg/dL Normal 65-105 [facility] Glucose [Mass/Vol] 83 mg/dL Normal 65-105 [facility] Glucose [Mass/Vol] 83 mg/dL Normal 65-105 [facility] Glucose [Mass/Vol] 88 mg/dL Normal 65-105 [facility] No Panel InformationOrdered By: Butch Nascimento on 11-11-2023 QRS Duration [address] [facility] Work Phone: [facility] [employer] Work Phone: POC Glucose Fingerstickon Glucose [Mass/Vol] 120 mg/dL High 65 - 105 mg/dL [facility] Interpretation and review of laboratory results Abnormal [facility] Glucose [Mass/Vol] 92 mg/dL 65 - 105 mg/dL [facility] Glucose [Mass/Vol] 83 mg/dL 65 - 105 mg/dL [facility] Glucose [Mass/Vol] 83 mg/dL 65 - 105 mg/dL [facility] Glucose [Mass/Vol] 88 mg/dL 65 - 105 mg/dL [facility] RAD - MRI Reporton RAD - MRI Report [id number] IFF Normal [facility] Surgical Pathology Reporton 11-11-2023 Surgical Pathology Report (NOTE) [id number] [facility] [employer] CONSULTING PATHOLOGISTS [facility] ANATOMIC PATHOLOGY [address] [place] [address]. [place], [place] [address] SURGICAL PATHOLOGY CONSULTATION Patient Name: CANDIS JOHNSON [facility] Rec: [id number] Path Number: [id number] Collected: 11/11/2023 Received: 11/14/2023 Reported: 11/17/2023 08:30 [...] JAYASHREE AVILEZ, [address] WAS SENT TO [facility] FOR PD-L1 EXPRESSION TESTING. THE RESULTS ARE FOLLOWS: PD-L1 EXPRESSION: POSITIVE TUMOR PROPORTION SCORE (TPS): 15% COMBINED POSITIVE SCORE (CPS): 17 PLEASE SEE YARELI' COMPLETE REPORT ([id number]) FOR DETAILS. Candy Banegas Clinical Information Pre-Op [...] squamous carcinoma. Control reacts as expected. Normal [facility] BLOOD BANK SPECIMENon [address] [facility] CBC with Auto Differentialon 11-10-2023 Basophils (Bld) [#/Vol] [facility] Basophils/100 WBC (Bld) 0 % 0 - 2 % [facility] Eosinophils (Bld) [#/Vol] 0.03 10*3/uL [facility] Eosinophils/100 WBC (Bld) 0 % Low 1 - 4 % [facility] Erythrocyte distribution width (RBC) [Ratio] 15.9 % High 11.8 - 14.4 % [facility] Hematocrit (Bld) [Volume fraction] 29.5 % Low 36.3 - 47.1 % [facility] Hemoglobin (Bld) [Mass/Vol] 8.7 g/dL Low 11.9 - 15.1 g/dL [facility] Immature granulocytes (Bld) [#/Vol] 0.06 10*3/uL [facility] Immature granulocytes/100 WBC (Bld) 1 % High [address] [facility] Interpretation and review of laboratory results Abnormal [facility] Lymphocytes/100 WBC (Bld) 10 % Low 24 - 43 % [facility] Lymphocytes/100 WBC (Bld) 0.86 % Low [facility] MCH (RBC) [Entitic mass] 26.9 pg 25.2 - 33.[address] [facility] MCHC (RBC) [Mass/Vol] 29.5 g/dL 28.4 - 34.8 g/dL [facility] MCV (RBC) [Entitic vol] 91.3 fL 82.6 - 102.9 fL [facility] Monocytes/100 WBC (Bld) 9 % 3 - 12 % [facility] Monocytes/100 WBC (Bld) 0.72 % [facility] Neutrophils/100 WBC (Bld) 80 % High 36 - 65 % [facility] Nucleated RBC/100 WBC (Bld) [Ratio] 0.0 % 0.0 per 100 WBC [facility] [employer] Platelet mean volume (Bld) [Entitic vol] 8.5 fL 8.1 - 13.5 fL [facility] Platelets (Bld) [#/Vol] 389 10*3/uL [facility] RBC (Bld) [#/Vol] 3.23 10*6/uL Low 3.95 - 5.1 1 m/uL [facility] RBC (Bld) [#/Vol] ANISOCYTOSIS PRESENT [facility] Segmented neutrophils/100 WBC (Bld) 6.82 % [facility] [employer] WBC other (Bld) [#/Vol] 8.5 [facility] BEACHESProtein Forest CBC with Diffon 11-10-2023 Abs. Basophil <0.03 Normal 0.00-0.20 [facility] Comment on above: Performed By: #### C DP, GLYHGB #### [employer] [address] [place] [address] Lathe Spotter: Guillaume Roman MD Abs.Imm.Granulocyte 0.06 k/uL Normal 0.00-0.30 [facility] Comment on above: Performed By: #### C DP, GLYHGB #### [employer] [address] [place] [address] Lathe Spotter: Guillaume Roman MD Abs.Neutrophil (Seg) 6.82 k/uL Normal 1.50-8.10 [facility] Comment on above: Performed By: #### C DP, GLYHGB #### [employer] [address] [place], [place] [phone] Lathe Spotter: Guillaume Roman MD Basophils/100 WBC (Bld) 0 % Normal 0-2 [facility] Comment on above: Performed By: #### C DP, GLYHGB #### [address] [address] Lathe Spotter: Guillaume Roman MD Eosinophils (Bld) [#/Vol] 0.03 10*3/uL Normal 0.00-0.44 [facility] Comment on above: Performed By: #### C DP, GLYHGB #### [address] [address] Lathe Spotter: Guillaume Roman MD Eosinophils/100 WBC (Bld) 0 % Low 1-4 [facility] Comment on above: Performed By: #### C DP, GLYHGB #### [address] [address] Lathe Spotter: Guillaume Roman MD Erythrocyte distribution width (RBC) [Ratio] 15.9 % High 11.8-14.4 [facility] Comment on above: Performed By: #### C DP, GLYHGB #### [address] [address] Lathe Spotter: Guillaume Roman MD Hematocrit (Bld) [Volume fraction] 29.5 % Low 36.3-47.1 [facility] Comment on above: Performed By: #### C DP, GLYHGB #### [facility] [employer] [address] [place] [address] Lathe Spotter: Guillaume Roman MD Hemoglobin (Bld) [Mass/Vol] 8.7 g/dL Low 11.9-15.1 [facility] Comment on above: Performed By: #### C DP, GLYHGB #### [facility] [employer] [address] [place] [address] Lathe Spotter: Guillaume Roman MD Immature granulocytes/100 WBC (Bld) 1 % High 0 [facility] Comment on above: Performed By: #### C DP, GLYHGB #### [address] [address] Lathe Spotter: Guillaume Roman MD Lymphocytes (Bld) [#/Vol] 0.86 10*3/uL Low 1.10-3.70 [facility] Comment on above: Performed By: #### C DP, GLYHGB #### [place] [address] Lathe Spotter: Guillaume Roman MD Lymphocytes/100 WBC (Bld) 10 % Low 24-43 [facility] Comment on above: Performed By: #### C DP, GLYHGB #### [place] [address] Lathe Spotter: Guillaume Roman MD MCH (RBC) [Entitic mass] 26.9 pg Normal 25.2-33.5 [facility] Comment on above: Performed By: #### C DP, GLYHGB #### [place] [address] Lathe Spotter: Guillaume Roman MD MCHC (RBC) [Mass/Vol] 29.5 g/dL Normal 28.4-34.8 [facility] Comment on above: Performed By: #### C DP, GLYHGB #### [place] [address] Lathe Spotter: Guillaume Roman MD MCV (RBC) [Entitic vol] 91.3 fL Normal 82.6-102.9 [facility] Comment on above: Performed By: #### C DP, GLYHGB #### [address] [address] Lathe Spotter: Guillaume Roman MD Monocytes (Bld) [#/Vol] 0.72 10*3/uL Normal 0.10-1.20 [facility] Comment on above: Performed By: #### C DP, GLYHGB #### [facility] [employer] [address] [place] [address] Lathe Spotter: Guillaume Roman MD Monocytes/100 WBC (Bld) 9 % Normal 3-12 [facility] Comment on above: Performed By: #### C DP, GLYHGB #### [facility] [employer] [address] [place] [address] Lathe Spotter: Guillaume Roman MD Neutrophil (Seg) 80 % High 36-65 [facility] Comment on above: Performed By: #### C DP, GLYHGB #### [facility] [employer] [address] [place] [address] Lathe Spotter: Guillaume Roman MD NRBC Automated 0.0 per 100 WBC Normal 0.0 [facility] Comment on above: Performed By: #### C DP, GLYHGB #### [facility] [employer] [address] [place] [address] Lathe Spotter: Guillaume Roman MD Platelet mean volume (Bld) [Entitic vol] 8.5 fL Normal 8.1-13.5 [facility] Comment on above: Performed By: #### C DP, GLYHGB #### [address] [address] Lathe Spotter: Guillaume Roman MD Platelets (Bld) [#/Vol] 389 10*3/uL Normal 138-453 [facility] Comment on above: Performed By: #### C DP, GLYHGB #### [facility] [employer] [address] [place] [address] Lathe Spotter: Guillauem Roman MD RBC (Bld) [#/Vol] 3.23 10*6/uL Low 3.95-5.11 [facility] Comment on above: Performed By: #### C DP, GLYHGB #### [address] [place] [address] Lathe Spotter: Guillaume Roman MD RBC morphology finding Nom (Bld) ANISOCYTOSIS PRESENT Normal [facility] Comment on above: Performed By: #### C DP, GLYHGB #### [facility] [address] [place] [address] Lathe Spotter: Guillaume Roman MD WBC (Bld) [#/Vol] 8.5 10*3/uL Normal 3.5-11.3 [facility] Comment on above: Performed By: #### C DP, GLYHGB #### [facility] [employer] [address] [place] [address] Lathe Spotter: Guillaume Roman MD CT HEAD WO CONTRASTon [...] True Mccall MD 11/10/23 Final result Normal [facility] CT Head WO contraston 2023 No [...] of the visualized skull or soft tissues. [facility] True Valentine MD - 11/10/2023 EXAMINATION: CT [...] soft tissues. IMPRESSION: No acute intracranial abnormality. [facility] Radiology Study observation (narrative) [facility] CT Head WO contrastOrdered B y: True Mccall on 11-10-[address] [facility] Work Phone: Comp Metabolic Pr/rfx MGon 0 11-10-2023 Albumin [Mass/Vol] 3.5 g/dL Normal 3.5-5.2 [facility] Comment on above: Performed By: #### R EJEC, CMPX, LIPR ####[facility] [address] [place], [place] [phone] Director: Guillaume Roman MD Albumin/Glob Ratio 2.0 Normal 1.0-2.5 [facility] Comment on above: Performed By: #### R EJEC, CMPX, LIPR ####[facility] [address] [place], [place] [phone] Director: Guillaume Roman MD Alkaline Phos 85 U/L Normal 35-104 [facility] Comment on above: Performed By: #### R EJEC, CMPX, LIPR ####[facility] [address] [place], [place] [phone] Director: Guillaume Roman MD ALT [Catalytic activity/Vol] 9 U/L Low 10-35 [facility] Comment on above: Performed By: #### R EJEC, CMPX, LIPR ####[facility] [address] [place], [place] [phone] Director: Guillaume Roman MD Anion gap [Moles/Vol] 12 mmol/L Normal 9-16 [facility] Comment on above: Performed By: #### R EJEC, CMPX, LIPR ####[facility] [address] [place], [place] [phone])[phone] Director: Guillaume Roman MD AST [Catalytic activity/Vol] 20 U/L Normal 10-35 [facility] Comment on above: Performed By: #### R EJEC, CMPX, LIPR ####[facility] [address] [place], [place] [phone] Director: Guillaume Roman MD Bilirubin [Mass/Vol] 0.2 mg/dL Normal 0.00-1.20 [facility] Comment on above: Performed By: #### R EJEC, CMPX, LIPR ####[facility] [address] [place], [place] [address])[phone] Director: Guillaume Roman MD Calcium [Mass/Vol] 8.4 mg/dL Low 8.6-10.4 [facility] Comment on above: Performed By: #### R EJEC, CMPX, LIPR ####[facility] [address] [place], [place] [address])[phone] Director: Guillaume Roman MD Chloride [Moles/Vol] 108 mmol/L High 98-107 [facility] Comment on above: Performed By: #### R EJEC, CMPX, LIPR ####[facility] [address] [place], [place] [address])[phone] Director: Guillaume Roman MD CO2 [Moles/Vol] 17 mmol/L Low 20-31 [facility] Comment on above: Performed By: #### R EJEC, CMPX, LIPR ####[facility] [address] [place], [place] [address])[phone] Director: Guillaume Roman MD Creatinine [Mass/Vol] 0.9 mg/dL Normal 0.50-0.90 [facility] Comment on above: Performed By: #### R EJEC, CMPX, LIPR ####[facility] [address] [place], [place] [address])[phone] Director: Guillaume Roman MD GFR/1.73 sq M.predicted among non-blacks MDRD (S/P/Bld) [Vol rate/Area] 66 mL/min/{1.73_m2} Normal >60 [facility] Comment on above: Result Comment: These [...] By: #### R ALIZA YOOX, LIPR ####[facility] [address] [place], [place] [phone] Director: Guillaume Roman MD Glucose [Mass/Vol] 99 mg/dL Normal 74-99 [facility] Comment on above: Performed By: #### R EJEC, CMPX, LIPR ####[facility] [address] [place], [place] [phone] Director: Guillaume Roman MD Potassium [Moles/Vol] 4.5 mmol/L Normal 3.7-5.3 [facility] Comment on above: Result Comment: SPEC IMEN SLIGHTLY HEMOLYZED, RESULTS MAY BE ADVERSELY AFFECTED. Performed By: #### R ALIZA YOOX, LIPR ####[facility] [address] [place] [address] [phone])[phone] Director: Guillaume Roman MD Protein [Mass/Vol] 5.0 g/dL Low 6.6-8.7 [facility] Comment on above: Performed By: #### R FREDO, CMPX, LIPR ####[facility] [address] [place], [place] [phone] Director: Guillaume Roman MD Sodium [Moles/Vol] 137 mmol/L Normal 136-145 [facility] Comment on above: Performed By: #### R EJEC, CMPX, LIPR ####[facility] [address] [place], [place] [phone] Director: Guillaume Roman MD Urea nitrogen [Mass/Vol] 10 mg/dL Normal 8-23 [facility] Comment on above: Performed By: #### R EJKOURTNEY, CMPX, LIPR ####[facility] [address] [place], [place] [phone] Director: Guillaume Roman MD Comprehensive Metabolic Pane l w/ Reflex to on 11-10-2023 Albumin [Mass/Vol] 3.5 g/dL 3.5 - 5.2 g/dL [facility] Albumin/Globulin [Mass ratio] 2.0 {ratio} 1.0 - 2.[address] [facility] ALP [Catalytic activity/Vol] 85 U/L 35 - 104 U/L [facility] ALT [Catalytic activity/Vol] 9 U/L Low 10 - 35 U/L [facility] Anion gap [Moles/Vol] 12 mmol/L 9 - 16 mmol/L [facility] AST [Catalytic activity/Vol] 20 U/L 10 - 35 U/L [facility] Bilirubin [Mass/Vol] 0.2 mg/dL 0.00 - 1.20 mg/dL [facility] Calcium [Mass/Vol] 8.4 mg/dL Low 8.6 - 10. 4 mg/dL [facility] Chloride [Moles/Vol] 108 mmol/L High 98 - 10 7 mmol/L [facility] CO2 [Moles/Vol] 17 mmol/L Low 20 - 31 mmol/L [facility] Creatinine [Mass/Vol] 0.9 mg/dL 0.50 - 0.90 mg/dL [facility] Est, Glom Filt Rate 66 - PINF [facility] Comment on above: These results are [...] [Mass/Vol] 99 mg/dL 74 - 99 mg/dL [facility] Interpretation and review of laboratory results Abnormal [facility] Potassium [Moles/Vol] 4.5 mmol/L 3.7 - 5.3 mmol/L [facility] Comment on above: SPECIMEN SLIGHTLY HE MOLYZED, RESULTS MAY BE ADVERSELY AFFECTED. Protein [Mass/Vol] 5.0 g/dL Low 6.6 - 8.7 g/dL [facility] Sodium [Moles/Vol] 137 mmol/L 136 - 145 mmol/L [facility] Urea nitrogen [Mass/Vol] 10 mg/dL 8 - 23 mg/dL [facility] Glucose,Whole Bloodon 2023 Glucose [Mass/Vol] 104 mg/dL Normal 65-105 [facility] Glucose [Mass/Vol] 86 mg/dL Normal 65-105 [facility] Glucose [Mass/Vol] 89 mg/dL Normal 65-105 [facility] Glucose [Mass/Vol] 91 mg/dL Normal 65-105 [facility] Hemoglobin A1Con 11-10-2023 Average glucose Estimated from glycated hemoglobin (Bld) [Mass/Vol] 82 mg/dL [facility] Comment on above: The ADA and AACC rec ommend providing the estimated average glucose result to permit better patient understanding of their HBA1c result. HbA1c (Bld) [Mass fraction] 4.5 % 4.0 - 6.0 % [facility] Glucose [Mass/Vol] 82 mg/dL Normal [facility] Comment on above: Result Comment: The ADA and AACC recommend providing the estimated average glucose result to permit better patient understanding of their HBA1c result. Performed By: #### C DP, GLYHGB #### [employer] [address] [place] [address] Lathe Spotter: Guillaume Roman MD HbA1c (Bld) [Mass fraction] 4.5 % Normal 4.0-6.0 [facility] Comment on above: Performed By: #### C DP, GLYHGB #### [employer] [address] [place] [address] Lathe Spotter: Guillaume Roman MD Lipid Panelon 11-10-2023 Cholesterol [Mass/Vol] 79 mg/dL 0 - 199 mg/dL [facility] Comment on above: Cholesterol Guidelines: <200 Desirable 200-240 Borderline >240 Undesirable Cholesterol in HDL [Mass/Vol] 55 mg/dL 40 - PINF mg/dL [facility] Comment on above: HDL Guidelines: <40 Undesirable 40-59 Borderline >59 Desirable Cholesterol in LDL [Mass/Vol] 11 mg/dL 0 - 100 mg/dL [facility] Comment on above: LDL Guidelines: <100 Desirable 100-129 Near to/above Desirable 130-159 Borderline >159 Undesirable Direct (measured) LDL and calculated LDL are not interchangeable tests. Cholesterol in VLDL [Mass/Vol] 13 mg/dL [facility] Cholesterol.total/Cho lesterol in HDL [Mass ratio] 1.0 {ratio} [facility] Triglyceride [Mass/Vol] 66 mg/dL NINF - 150 mg/dL [facility] Comment on above: Triglyceride Guidelines: <150 Desirable 150-199 Borderline 200-499 High >499 Very high Based on AHA Guidelines for fasting triglyceride, April 2012. Lipid Profileon 11-10-2023 Cholesterol [Mass/Vol] 79 mg/dL Normal 0-199 [facility] Comment on above: Result Comment: Cholesterol Guidelines: <200 Desirable 200-240 Borderline >240 Undesirable Performed By: #### R EJEC, CMPX, LIPR ####[employer] [place] [address] [phone] Lab Director: Guillaume Roman MD Cholesterol in HDL [Mass/Vol] 55 mg/dL Normal >40 [facility] Comment on above: Result Comment: HDL Guidelines: <40 Undesirable 40-59 Borderline >59 Desirable Performed By: #### R EJEC, CMPX, LIPR ####[employer] [place] [address] Lab Director: Guillaume Roman MD Cholesterol in LDL [Mass/Vol] 11 mg/dL Normal 0-100 [facility] Comment on above: Result Comment: LDL Guidelines: <100 Desirable 100-129 Near to/above Desirable 130-159 Borderline >159 Undesirable Direct (measured) LDL and calculated LDL are not interchangeable tests. Performed By: #### R EJEC, CMPX, LIPR ####[employer] [place] [address] [phone] Lab Director: Guillaume Roman MD Cholesterol in VLDL [Mass/Vol] 13 mg/dL Normal [facility] Comment on above: Performed By: #### R EJEC, CMPX, LIPR ####[employer] [address] [place] [address] Lab Director: Guillaume Roman MD Cholesterol.total/Cho lesterol in HDL [Mass ratio] 1.0 {ratio} Normal [facility] Comment on above: Performed By: #### R EJEC, CMPX, LIPR ####[facility] [address] [place] [address] Lab Director: Guillaume Roman MD Triglyceride [Mass/Vol] 66 mg/dL Normal <150 [facility] Comment on above: Result Comment: Triglyceride Guidelines: <150 Desirable 150-199 Borderline 200-499 High >499 Very high Based on AHA Guidelines for fasting triglyceride, April 2012. Performed By: #### R EJEC, CMPX, LIPR ####[employer] [place] [address] Lab Director: Guillaume Roman MD MR Pelvis [...] left greater than right, is likely metastatic. [facility] RIS CONSOLIDATED EXAMINATION: MRI OF THE PELVIS [...] osseous structures are unremarkable. Minimal free fluid. [facility] Frank Deleon MD - 11/10/2023 [...] left greater than right, is likely metastatic. [facility] Radiology Study observation (narrative) [facility] MR Pelvis WO and W contrast IVOrdered By: Frank Deleon on 11-10-[address] [facility] Work Phone: MRI PELVIS W WO CONTRASTon [...] Frank Deleon MD 11/10/23 Final result Normal [facility] No Panel Informationon 11-[address] [facility] POC Glucose Fingerstickon Glucose [Mass/Vol] 104 mg/dL 65 - 105 mg/dL [facility] Glucose [Mass/Vol] 86 mg/dL 65 - 105 mg/dL [facility] Glucose [Mass/Vol] 89 mg/dL 65 - 105 mg/dL [facility] Glucose [Mass/Vol] 91 mg/dL 65 - 105 mg/dL [facility] PREVIOUS SPECIMENon 11-10-[address] [facility] Specimen Rejectionon 024 Reason for rejection Unable to perform testing: Specimen clotted. [facility] Comment on above: Performed By: #### R EJEC, CMPX, LIPR ####[facility] [address] [place], [place] [id number] Lab Director: Guillaume Roman MD Source of sample .BLOOD [facility] Comment on above: Performed By: #### R EJEC, CMPX, LIPR ####[facility] [address] [place], [place] [phone] Lab Director: Guillaume Roman MD Test ordered CDP, GLYHGB [facility] Comment on above: Performed By: #### R EJEC, CMPX, LIPR ####[facility] [address] [place], [place] [id number] Lab Director: Guillaume Roman MD TYPE AND SCREENon 11-10-2023 ABO and Rh group Nom (Bld) Blood group O Rh(D) positive [facility] Arm Band Number BE [id number] [facility] Blood Bank Sample Expiration 11/13/2023,[address] [facility] Blood group antibodies identified Nom Negative [facility] Type + Screenon 11-10-2023 Type + Screen Sample Expiration 11/13/2023,2359 Arm Band Number BE [id number] ABO/Rh(D) O POSITIVE Antibody Screen NEGATIVE [facility] Comment on above: Performed By: #### T #### [employer] [address] [phone] Lathe Spotter: MD Rene Barros 11-09-2023 L Specimen: [id number] Received: 11/10/23 Status: TESS Herreralayne Num: [id number] Spec Type: Surgical Subm Dr: Kobe Crespo Tissues: A Endometrium - Curettings (EMC) Procedures: HE/6, Gross/Micro L4 Age/ Patient Sex Location Account Attending Physician ChristianpanchonoemiCandis Alisa 68/F LABELL [id number] Kobe Crespo SPEC NUM: [id number] RECD: 11/10/23 STATUS: TESS ANANTH NUM: [id number] NOY: 11/09/[address]: Kobe Crespo ENTERED: 11/10/[address] [facility] [address]: Angel Reynolds SPEC TYPE: Surgical [...] uterus didelphys, vaginal stenosis, cervical stenosis Specimen: [id number] Received: 11/10/23 Status: TESS Smart Num: [id number] Spec Type: Surgical Subm Dr: Kobe Crespo Tissues: A Endometrium - Curettings (EMC) Procedures: HE/6, Gross/Micro L4 Patient: Candis Johnson Alisa [id number] (Continued) Specimen: [id number] Received: 11/10/23 (Continued) Signed (signature on file) Jamarcus Chao MD 11/11/23 1448 Specimen: [id number] Received: 11/10/23 Status: TESS Smart Num: [id number] Spec Type: Surgical Subm Dr: Kobe Crespo Tissues: A Endometrium - Curettings (EMC) Procedures: GABRIELGinna/Ashley L4 Patient: Candis Johnson [id number] (Continued) Specimen: [id number] Received: 11/10/23 (Continued) CPT Codes 80035 Specimen: [id number] Received: 11/10/23 Status: TESS Smart Num: [id number] Spec Type: Surgical Subm Dr: Kobe Crespo Tissues: A Endometrium - Curettings (EMC) Procedures: Ginna/Ashley L4 Patient: ChristianpanchonoemiCandis Cuellar [id number] (Continued) Signed (signature on file) Jamarcus Chao MD 11/11/23 1448 Normal [facility] Lab Reportson 11-08-2023 Lab Reports [id number] IFF Normal [facility] Lab Reportson 11-07-2023 Lab Reports [id number] IFF Normal [facility] Consent for Procedure/Surger yon 10-14-2023 Consent for Procedure/Surgery [id number] IFF Normal [facility] Office Visiton 10-06-2023 Follow-up visit [id number] Kelby Johnson 1955 F Date Provider Department Provencal 10/06/2023 Jim-REBECCA GALEANO Family History Problem Relation Age of Onset Coronary artery disease Mother Cancer Father Diabetes Father Family Status - Relation Status Age at Mother Father Level of Service:10714 [place] OFFICE/OUTPATIENT ESTABLISHED MOD MDM 30 MIN Normal [facility] Office Visiton 09-23-2023 Follow-up visit [id number] Ayala 1955 F Date Provider Department Center 09/23/2023 3848GUERDA AGUILAR CELESTE Barreto Family History Problem Relation Age of Onset Coronary artery disease Mother Cancer Father Diabetes Father Family Status - Relation Status Age at Mother Father Level of Service:02519 [place] OFFICE/OUTPATIENT ESTABLISHED LOW MDM 20 MIN Reason for Visit and Comments: Follow-up [767332] - Concerns: Not much states some swelling in legs and some back back, chest pain seems to be getting better Normal [facility] Office Visiton 08-26-2023 Follow-up visit [id number] Kelby Johnson 1955 F Date Provider Department Center 08/26/2023 3848GUERDA CHI CELESTE Barreto Family History Problem Relation Age of Onset Coronary artery disease Mother Cancer Father Diabetes Father Family Status - Relation Status Age at Mother Father Level of Service:94462 [place] OFFICE/OUTPATIENT NEW MODERATE MDM 45 MINUTES Normal [facility] Consent for Procedure/Surger yon 08-24-2023 Consent for Procedure/Surgery [id number]#1.00T IFF Normal [facility] Consent for Procedure/Surger yon 08-09-2023 Consent for Procedure/Surgery [id number]#1.00T IFF Normal [facility] Urine Cytology ([facility])on 0 08-09-2023 Urine Cytology Diagnosis Info Invalid Interpretation Code [facility] Comment on above: Result Comment: A:Ur ine,Urine:Voided Interpretation - MicroScopic Description - Adequacy - Gross Description Site ID:A color Dark Yellow fixative Alcohol Specimen designated Urine received in alcohol preservative and labeled with the patient?s name, consists of 110ml slightly cloudy dark yellow fluid. Electronically signed by : on: 08/09/2023 11:46:02 Performed By: #### 1 [id number] ####[facility] [address] [place] [address] Physician Referralon 024 Physician Referral [id number] TIFF Normal [facility] Screenson 08-04-2023 Screens [id number]#1.00TI FF Normal [facility] Urine Cytology ([facility])on 0 08-04-2023 Method of Extraction Voided Normal [facility] Comment on above: Performed By: #### 1 [id number] ####[facility] [address] [place] [address] Number of Jars 1 Invalid Interpretation Code [facility] Comment on above: Performed By: #### 1 [id number] ####[facility] [address] [place] [address] Specimen Urine Normal [facility] Comment on above: Performed By: #### 1 [id number] ####[facility] [address] [place] [address] Type of Service Technical Only Normal [facility] Comment on above: Performed By: #### 1 [id number] ####[facility] [address] [place] [address] Ambulatory Visit Summaryon 0 08-03-2023 Ambulatory Visit [...] the caus (more content not included)... Normal [facility] Home Recordson 08-03 Long Term Records [id number]#1.00T IFF Normal [facility] Patient Educationon 08-03-19 Patient Education [...] including vitamins, herbs, eye drops, creams, and ktkj-emj-tqcbtwt medicines. ? Any problems you or family [...] care provider tells you to. ? Taking ifjg-pvx-gixhynj medicines, vitamins, herbs, and supplements. General instructions [...] be monitor (more content not included)... 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 *possible abnormality of urinary system. Ordered due to rectal bleeding. Pt is a new pt. Never before seen in our office. Pt is hard of hearing she can read lips and she has an nurses aid from her home ([facility]) CT abdomen pelvis wo/w con done @ [facility] on 06/06/23 She tried giving a [...] age Assessment/Plan 68 yo female resident of [facility] here for new patient evaluation of right hydroureteronephrosis. Pt is hard of hearing, can read lips and she has a nurses aid from her home with her. Mother had lung cancer. Denies any other urologic surgeries. 1. Hydroureteronephrosis (N13.30: Unspecified hydronephrosis) CT AP wo/w PO con @ [facility] on 06/06/23 - mod Rt-sided collecting [...] cysto, if patient [facility] 3. Former smoker (Z87.891: Personal history of nicotine dependence) Smoked for a very little amount of time. 4. Aspirin long-term use (Z79.82: snf (curre (more content not included)... Normal [facility] Comment on above: Result Comment: [...] by: RIVKA FRAZIER Date: 2022-07-05 15:47 Normal [facility] MAMM SCREEN 3D DERRICK CADon 05-14-2022 MG MAMM SCREEN 3D DERRICK CAD Patient: CANDIS JOHNSON Exam Date: 05/14/2022 : 1955 Gender:F Ordering : DR ANDER LANLGEY D.O. Admission #: [id number] Family : Order #: [id number] CLICK HERE TO VIEW EXAM RADIOLOGY REPORT [...] Treatments None Family Cancers None LOCATION: [facility] BREAST COMPOSITION: Almost entirely fatty. FINDINGS: [...] MD on 05/14/2022 at 12:49 Normal [facility] BNPon 03-07-2022 Natriuretic peptide B (Bld) [Mass/Vol] 115.0 pg/mL Normal <=900.0 [facility] Comment on above: Performed By: #### B HASH SLINGER, CMP, HSTROPN #### [facility] [address] [place] [address] Dr. Carl Zuñiga CBC AUTO DIFFon 03-07-2022 BASO # 0.0 103/ul Normal 0.0-0.1 [facility] Comment on above: Performed By: #### B HASH SLINGER, CMP, HSTROPN #### [facility] [address] [place] [address] Dr. Carl Zuñiga Basophils/100 WBC (Bld) 0.0 % Critically low 0.2-2.0 [facility] Comment on above: Performed By: #### B HASH SLINGER, CMP, HSTROPN #### [facility] [address] [place] [address] Dr. Carl Zuñiga EO # 0.1 103/ul Normal 0.0-0.7 [facility] Comment on above: Performed By: #### B HASH SLINGER, CMP, HSTROPN #### [facility] [address] [place] [address] Dr. Carl Zuñiga Eosinophils/100 WBC (Bld) 1.0 % Normal 0.9-7.0 [facility] Comment on above: Performed By: #### B HASH SLINGER, CMP, HSTROPN #### [facility] [address] [place] [address] Dr. Carl Zuñiga Erythrocyte distribution width (RBC) [Ratio] 13.7 % Normal 11.0-15.0 [facility] Comment on above: Performed By: #### B HASH SLINGER, CMP, HSTROPN #### [facility] [address] [place] [address] Dr. Carl Zuñiga Hematocrit (Bld) [Volume fraction] 40.8 % Normal 36.0-48.0 [facility] Comment on above: Performed By: #### B HASH SLINGER, CMP, HSTROPN #### [facility] [address] [place] [address] Dr. Carl Zuñiga Hemoglobin (Bld) [Mass/Vol] 13.1 g/dL Normal 12.0-16.0 [facility] Comment on above: Performed By: #### B HASH SLINGER, CMP, HSTROPN #### [facility] [address] [place] [address] Dr. Carl Zuñiga IG # 0.02 10e3/ul Normal 0.00-0.03 [facility] Comment on above: Performed By: #### B HASH SLINGER, CMP, HSTROPN #### [facility] [address] [place] [address] Dr. Carl Zuñiga IG % 0.3 % Normal 0.0-0.5 [facility] Comment on above: Performed By: #### B HASH SLINGER, CMP, HSTROPN #### [facility] [address] [place] [address] Dr. Carl Zuñiga LYMPH # 0.9 103/ul Critically low 1.2-3.[address] [facility] Comment on above: Performed By: #### B HASH SLINGER, CMP, HSTROPN #### [facility] [address] [place] [address] Dr. Carl Zuñiga Lymphocytes/100 WBC (Bld) 13.9 % Critically low 20.5-60.0 [facility] Comment on above: Performed By: #### B HASH SLINGER, CMP, HSTROPN #### [facility] [address] [place] [address] Dr. Carl Zuñiga MANUAL DIFF REQ NO Normal [facility] Comment on above: Performed By: #### B HASH SLINGER, CMP, HSTROPN #### [facility] [address] [place] [address] Dr. Carl Zuñiga MCH (RBC) [Entitic mass] 30.8 pg Normal 26.7-34.0 [facility] Comment on above: Performed By: #### B HASH SLINGER, CMP, HSTROPN #### [facility] [address] [place] [address] Dr. Carl Zuñiga MCHC (RBC) [Mass/Vol] 32.1 g/dL Normal 29.9-35.2 [facility] Comment on above: Performed By: #### B HASH SLINGER, CMP, HSTROPN #### [facility] [address] [place] [address] Dr. Carl Zuñiga MCV (RBC) [Entitic vol] 96.0 fL Normal 81.0-99.0 [facility] Comment on above: Performed By: #### B HASH SLINGER, CMP, HSTROPN #### [facility] [address] [place] [address] Dr. Carl Zuñiga MONO # 0.6 103/ul Normal 0.3-0.8 [facility] Comment on above: Performed By: #### B HASH SLINGER, CMP, HSTROPN #### [facility] [address] [place] [address] Dr. Carl Zuñiga Monocytes/100 WBC (Bld) 9.2 % Normal 1.7-12.0 [facility] Comment on above: Performed By: #### B HASH SLINGER, CMP, HSTROPN #### [facility] [address] [place] [address] Dr. Carl Zuñiga NEUT # 5.1 103/ul Normal 1.4-6.5 [facility] Comment on above: Performed By: #### B HASH SLINGER, CMP, HSTROPN #### [facility] [address] [place] [address] Dr. Carl Zuñiga Neutrophils/100 WBC (Bld) 75.6 % Critically high 43.0-75.0 [facility] Comment on above: Performed By: #### B HASH SLINGER, CMP, HSTROPN #### [facility] [address] [address] [address] Carl Zuñiga Platelet mean volume (Bld) [Entitic vol] 8.5 fL Critically low 9.5-13.5 [facility] Comment on above: Performed By: #### B HASH SLINGER, CMP, HSTROPN #### [facility] [address] [address] [address] Carl Zuñiga PLT 206 103/ul Normal 150-450 [facility] Comment on above: Performed By: #### B HASH SLINGER, CMP, HSTROPN #### [facility] [address] [place] [address] Dr. Carl Zuñiga RBC 4.25 106/ul Normal 4.20-5.40 [facility] Comment on above: Performed By: #### B HASH SLINGER, CMP, HSTROPN #### [facility] [address] [place] [address] Dr. Carl Zuñiga WBC 6.7 103/ul Normal 4.0-11.0 [facility] Comment on above: Performed By: #### B HASH SLINGER, CMP, HSTROPN #### [facility] [address] [place] [address] Dr. Carl Zuñiga D-DIMERon 03-07-2022 D-DIMER <0.19 Normal <=0.59 [facility] Comment on above: Performed By: #### D DIM #### [facility] [address] [place] [address] Dr. Carl Zuñiga D-DIMER COMMENTS SEE BELOW Normal [facility] Comment on above: Result Comment: Incr [...] hospitalization. Performed By: #### D DIM #### [facility] [address] [place] [address] Dr. Carl Zuñiga PROF 14(COMP METB)on 022 Albumin [Mass/Vol] 3.9 g/dL Normal 3.4-5.0 [facility] Comment on above: Performed By: #### B HASH SLINGER, CMP, HSTROPN #### [facility] [address] [place] [address] Dr. Carl Zuñiga Albumin/Globulin [Mass ratio] 1.5 {ratio} Normal [facility] Comment on above: Performed By: #### B HASH SLINGER, CMP, HSTROPN #### [facility] [address] [place] [address] Dr. Carl Zuñiga ALP [Catalytic activity/Vol] 96 U/L Normal 46-116 [facility] Comment on above: Performed By: #### B HASH SLINGER, CMP, HSTROPN #### [facility] [address] [place] [address] Dr. Carl Zuñiga ALT [Catalytic activity/Vol] 38 U/L Normal 14-59 [facility] Comment on above: Performed By: #### B HASH SLINGER, CMP, HSTROPN #### [facility] [address] [place] [address] Dr. Carl Zuñiga Anion gap [Moles/Vol] 9.8 mmol/L Normal [facility] Comment on above: Performed By: #### B HASH SLINGER, CMP, HSTROPN #### [facility] [address] [place] [address] Dr. Carl Zuñiga AST [Catalytic activity/Vol] 16 U/L Normal 15-37 [facility] Comment on above: Performed By: #### B HASH SLINGER, CMP, HSTROPN #### [facility] [address] [place] [address] Dr. Carl Zuñiga Bilirubin [Mass/Vol] 0.5 mg/dL Normal 0.2-1.0 [facility] Comment on above: Performed By: #### B HASH SLINGER, CMP, HSTROPN #### [facility] [address] [place] [address] Dr. Carl Zuñiga Calcium [Mass/Vol] 9.2 mg/dL Normal 8.5-10.1 [facility] Comment on above: Performed By: #### B HASH SLINGER, CMP, HSTROPN #### [facility] [address] [place] [address] Dr. Carl Zuñiga Chloride [Moles/Vol] 103 mmol/L Normal 98-107 [facility] Comment on above: Performed By: #### B HASH SLINGER, CMP, HSTROPN #### [facility] [address] [place] [address] Dr. Carl Zuñiga CO2 [Moles/Vol] 29.1 mmol/L Normal 21.0-32.0 [facility] Comment on above: Performed By: #### B HASH SLINGER, CMP, HSTROPN #### [facility] [address] [place] [address] Dr. Carl Zuñiga Creatinine [Mass/Vol] 0.92 mg/dL Normal 0.55-1.02 [facility] Comment on above: Performed By: #### B HASH SLINGER, CMP, HSTROPN #### [facility] [address] [place] [address] Dr. Carl Zuñiga EGFR-AF BURUNDIAN >60 Normal >=60 [facility] Comment on above: Performed By: #### B HASH SLINGER, CMP, HSTROPN #### [facility] [address] [place] [address] Dr. Carl Zuñiga EGFR-NON AF BURUNDIAN >60 Normal >=60 [facility] Comment on above: Performed By: #### B HASH SLINGER, CMP, HSTROPN #### [facility] [address] [place] [address] Dr. Carl Zuñiga Globulin (S) [Mass/Vol] 2.6 g/dL Normal [facility] Comment on above: Performed By: #### B HASH SLINGER, CMP, HSTROPN #### [facility] [address] [place] [address] Dr. Carl Zuñiga Glucose [Mass/Vol] 109 mg/dL Critically high 74-106 [facility] Comment on above: Performed By: #### B HASH SLINGER, CMP, HSTROPN #### [facility] [address] [address] [address] Carl Zuñiga Potassium [Moles/Vol] 3.9 mmol/L Normal 3.5-5.1 [facility] Comment on above: Performed By: #### B HASH SLINGER, CMP, HSTROPN #### [facility] [address] [address] [address] Carl Zuñiga Protein [Mass/Vol] 6.5 g/dL Normal 6.4-8.2 [facility] Comment on above: Performed By: #### B HASH SLINGER, CMP, HSTROPN #### [facility] [address] [place] [address] Dr. Carl Zuñiga Sodium [Moles/Vol] 138 mmol/L Normal 136-145 [facility] Comment on above: Performed By: #### B HASH SLINGER, CMP, HSTROPN #### [facility] [address] [address] [address] Carl Zuñiga Urea nitrogen [Mass/Vol] 14.0 mg/dL Normal 7.0-18.0 [facility] Comment on above: Performed By: #### B HASH SLINGER, CMP, HSTROPN #### [facility] [address] [place] [address] Dr. Carl Zuñiga Urea nitrogen/Creatinine [Mass ratio] 15.2 mg/mg Normal [facility] Comment on above: Performed By: #### B HASH SLINGER, CMP, HSTROPN #### [facility] [address] [place] [address] Dr. Carl Zuñiga TROPONIN, HIGH SENSITIVITYon 03-07-2022 HSTROP 2.8 pg/mL Critically low 4.0-51.[address] [facility] Comment on above: Result Comment: CUT- OFF POINTS HAVE BEEN ESTABLISHED BASED ON THE FOURTH UNIVERSAL DEFINITIONS OF MYOCARDIAL INFARCTION. THE UPPER REFERENCE LIMIT (URL) OF TROPONIN, DEFINED THE 99TH PERCENTILE OF cTnI DISTRIBUTION IN A REFERENCE POPULATION, HAS BEEN CONFIRMED THE DECISION THRESHOLD FOR HI DIAGNOSIS. Performed By: #### B HASH SLINGER, CMP, HSTROPN #### [facility] [id number] Carl Zuñiga XR CHEST 1 Von [...] DIANA BREAUX Date: 2022-03-07 10:05 Normal [facility] CT CSPINE WO CONon CT CSPINE [...] MARQUES PATEL Date: 2021-07-10 02:49 Normal [facility] CT HEAD WO CONon 07-10-2021 CT [...] MARQUES PATEL Date: 2021-07-10 02:44 Normal [facility] XR CHEST 1 Von 07-10-2021 XR [...] MARQUES PATEL Date: 2021-07-10 02:46 Normal [facility] XR PELVIS 1_2 VIEWSon 2020 XR [...] MARQUES PATEL Date: 2021-07-10 02:47 Normal [facility] Vital Signs Date Time Vital Sign Value Performing Clinician Carrol perez 12-07-2023 09:56-0400 Body weight 83.6 kg Laisha Coburn MD Work Phone: [facility] 12-07-2023 09:56-0400 Diastolic blood pressure 51 mm[Hg] Laisha Coburn MD Work Phone: [facility] 12-07-2023 09:56-0400 Heart rate 78 /min Laisha Coburn MD Work Phone: [facility] 12-07-2023 09:56-0400 Respiratory rate 17 /min Laisha Coburn MD Work Phone: [facility] 12-07-2023 09:56-0400 SaO2% (BldA) [Mass fraction] 99 % Laisha Coburn MD Work Phone: [facility] 12-07-2023 09:56-0400 Systolic blood pressure 98 mm[Hg] Laisha Coburn MD Work Phone: [facility] 11-28-2023 09:04-0400 Body temperature 97.7 [degF] El Ahmadi MD Work Phone: [facility] 11-28-2023 09:04-0400 Body weight 84.37 kg El Ahmadi MD Work Phone: [facility] 11-28-2023 09:04-0400 Diastolic blood pressure 78 mm[Hg] El Ahmadi MD Work Phone: [facility] 11-28-2023 09:04-0400 Heart rate 89 /min El Ahamdi MD Work Phone: [facility] 11-28-2023 09:04-0400 Respiratory rate 16 /min El Ahmadi MD Work Phone: [facility] 11-28-2023 09:04-0400 SaO2% (BldA) [Mass fraction] 99 % El Ahmadi MD Work Phone: [facility] 11-28-2023 09:04-0400 Systolic blood pressure 117 mm[Hg] El Ahmadi MD Work Phone: [facility] 11-12-2023 11:15-0400 Body temperature 97.9 [degF] Jayashree Avilez MD [facility] Phone: [facility] 11-12-2023 11:15-0400 Diastolic blood pressure 58 mm[Hg] Jayashree Avilez MD Work Phone: [facility] [employer] [facility] 11-12-2023 11:15-0400 Heart rate 74 /min Jayashree Avilez MD Work Phone: [employer] 11-12-2023 11:15-0400 Respiratory rate 18 /min Jayashree Avilez MD Work Phone: [employer] 11-12-2023 11:15-0400 SaO2% (BldA) [Mass fraction] 96 % Jayashree Avilez MD Work Phone: [employer] 11-12-2023 11:15-0400 Systolic blood pressure 116 mm[Hg] Jayashree Avilez MD Work Phone: [employer] 11-10-2023 03:41-0400 Body height 162.6 cm Jayashree Avilez MD Work Phone: [employer] 11-10-2023 03:41-0400 Body mass index (BMI) [Ratio] 33.34 kg/m2 Jayashree Avilez MD Work Phone: [employer] 11-10-2023 03:41-0400 Body weight 88.1 kg Jayashree Avilez MD Work Phone: [employer] 08-03-2023 08:23-0500 Blood Pressure Location Pamela Benson [facility] Encounters Encounter Date Encounter Type Care Provider Facility Start: 12-16-2023 End: 12[facility] Start: 12-08-2023 End: 12-08-2023 Social Work Lisa Kruse P[employer]ER Hematology/Oncology Comment on above: Patient Update Start: 12-07-2023 End: 12-07-2023 ambulatory LAISHA COBURN Facility:[facility] Start: 12-07-2023 End: 12-07-2023 Patient encounter procedure Laisha Coburn MD Work Phone: Radiation Oncology Comment on above: 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) Start: 12-02-2023 End: 12-02-2023 ambulatory EL AHMADI Facility:[facility] Start: 11-28-2023 End: 11-29-2023 ambulatory [...] te Start: 11-23-2023 Orders Only Bernadette Metzger APRN.LEVEL DESIGNER Work Phone: Gynecology Oncology Comment on above: High grade squamous intraepithelial lesion (HGSIL), grade 3 SUDHA, on biopsy of cervix (Primary Dx) Start: 11-21-2023 End: 11-21-2023 ambulatory [facility] Start: 11-17-2023 ambulatory Edmond Matias ty:[id number] Start: 11-10-2023 End: 11-12-2023 Evaluation and management of inpatient Jayashree Avilez MD Work Phone: [address] MED SURG Comment on above: Bleeding from the ge nitourinary system Start: 11-09-2023 End: 11-09-2023 ambulatory Kobe Crespo Facility:[facility] Start: 11-02-2023 End: 11-02-2023 ambulatory KOBE CRESPO Not Available Start: 10-06-2023 End: 10-06-2023 [facility]: 09-23-2023 End: 09-23-2023 ambulatory [facility] Start: 08-26-2023 End: 08-26-2023 ambulatory [facility] Start: 08-24-2023 End: 08-24-2023 ambulatory Pamela Benson Facility: [facility] Start: 08-24-2023 End: 08-24-2023 Off-Site Pamela Benson [facility] Start: 08-04-2023 End: 08-04-2023 ambulatory Pamela Benson Facility:[facility] Start: 08-04-2023 End: 08-04-2023 Lab Drop off Pamela Benson [facility] Start: 08-03-2023 End: 08-03-2023 ambulatory Pamela Benson Facility:[facility] Start: 08-03-2023 End: 08-03-2023 Patient encounter procedure [facility] Start: 07-27-2023 End: 07-27-2023 ambulatory KOBE ZACARIAS [...] - S adam or Plasma Bernadette Metzger CARDIOLOGY COORDINATOR.LEVEL DESIGNER Work Phone: [phone] Pamela Benson Plan of Treatment Date Care Activity Detail Author Start: 11-09-2028 Lipid panel [facility] RV ID Start: 11-10-2026 Diabetes Screening Diabetes Screenin g [facility] Start: 11-10-2024 GFR test (Diabetes, CKD 3-4, OR last GFR 15-59) GFR test (Diabetes, CKD 3-4, OR last GFR 15-59) [facility] Start: 03-11-2024 Influenza vaccination Influenz a Vaccine (Season Ended) [facility] Start: 02-09-2024 Influenza vaccination Flu vacc ine (Season Ended) [facility] Start: 01-16-2024 End: 12-27-2024 MR Pelvis WO and W contrast IV MRI FEMALE PELVIS WO/W IVCON Radiology Routine 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) Expected: 01/16/2024, Expires: 12/27/2024 [facility] Work Phone: Comment on above: Expected: 01/16/2024 , Expires: 12/27/2024 Start: 12-28-2023 End: 12-28-2023 ambulatory 12/28/2023 10:00 AM EDT Visit (SP) Office Gynecology Oncology [address] [place] [address] [place] [address] Mariam Mckinley MD [address] [place] [address] Vaginal Mass Gynecology Oncology Comment [...] 1:00 PM EDT Office Visit Radiation Oncology [address] [place] [address] [place] [address] [place] [address] New Consult Radiation Oncology Comment on above: New Consult Start: 12-02-2023 End: 12-02-2023 Patient encounter procedure 12/02/2023 1:30 PM EDT Appointment Radiology Pet CT [address] [place] [place] [address] Comment on above: pet scan Start: 11-28-2023 End: 11-28-2023 Patient encounter procedure 11/28/2023 9:00 AM EDT Office Visit Radiation Oncology [address] [place] [address] El Ahmadi MD [address] [place] [place] [address] Dr Templeton Dx cevical cancer Radiation Oncology Comment on above: Dr Templeton Dx cevical cancer Start: 11-11-2023 Annual Wellness Visi t (Medicare) Annual Wellness Visit (Medicare) [facility] Start: 07-11-2023 Advance Directive Discussion Advance Directive Discussion [facility] Start: 07-11-2023 Behavioral Health Screening Behavioral Health Screening [facility] Start: 03-11-2023 Covid-19 Vaccine ( season) Covid-19 Vaccine ( season) [facility] Start: 03-11-2023 Covid-19 Vaccine ( season) Covid-19 Vaccine ( season) [facility] Start: 03-11-2023 COVID-19 Vaccine ( season) COVID-19 Vaccine ( season) [facility] Start: 2020 Pneumococcal 65+ yea rs Vaccine (1 of 1 - PCV) Pneumococcal 65+ years Vaccine (1 of 1 - PCV) [facility] Start: 2020 Pneumococcal Vaccine : 65+ (1 of 1 - PCV) Pneumococcal Vaccine: 65+ (1 of 1 - PCV) [facility] Start: 2020 Screening for osteoporosis Bone Density Screening [facility] Start: 2015 Respiratory Syncytia l Virus (RSV) or age 60 yrs+ (1 - 1-dose 60+ series) Respiratory Syncytial Virus (RSV) or age 60 yrs+ (1 - 1-dose 60+ series) [facility] Start: 2015 RSV Vaccine (1 - 1-dose 60+ series) RSV Vaccine (1 - 1-dose 60+ series) [facility] Start: 2010 Screening for osteoporosis DEXA (modify frequency per FRAX score) [facility] Start: 2005 Screening for malignant neoplasm of breast Breast cancer screen [facility] Start: 2005 Shingles vaccine (1 of 2) Shingles vaccine (1 of 2) [facility] Start: 2005 Shingrix Vaccine (1 of 2) Shingrix Vaccine (1 of 2) [facility] Start: 2000 Screening for malignant neoplasm of colon [facility] Start: 1995 Screening for malignant neoplasm of breast Mammogram Screening [facility] Start: 1974 DTaP/Tdap/Td vaccine (1 - Tdap) DTaP/Tdap/Td vaccine (1 - Tdap) [facility] Start: 1974 Urine microalbumin profile DTaP,Tdap,Td Vaccine (1 - Tdap) [facility] Start: 1973 Hepatitis C screening B [facility] Start: 1967 Depression Screen Depression Screen [facility] Glucose [Mass/volume ] in Serum or Plasma [facility] Comment on above: 4X Daily (AC & HS) u ntil discontinued starting 11/10/2023 As Needed until disc ontinued starting 11/10/2023 OUTSIDE SURG PATH SLIDE REVIEW OUTSIDE SURG PATH SLIDE REVIEW Lab Routine High grade squamous intraepithelial lesion (HGSIL), grade 3 SUDHA, on biopsy of cervix Ordered: 11/23/2023 [facility] Work Phone: Comment on above: Ordered: 11/23/2023 Oxygen therapy [Minimum Data Set] Initiate Oxygen Therapy Protocol Respiratory Care Routine Daily until discontinued starting 11/10/2023 [employer] Comment on above: Daily until disconti nued starting 11/10/2023 End: 12-24-2024 PET+CT Guidance for localization of tumor of Skull base to mid-thigh-- W 18F-FDG IV NM PET/CT SKULL-THIGH INITIAL Radiology Routine 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) 1 Occurrences starting 11/25/2023 until 12/24/2024 [facility] Work Phone: Comment on above: 1 Occurrences starti ng 11/25/2023 until 12/24/2024 End: 11-10-2023 SPECIMEN REJECTION [facility] Work Phone: Comment on above: Once for 1 Occurrenc es starting 11/10/2023 until 11/10/2023 Surgical Pathology Surgical Path ology Lab Routine Bleeding from the genitourinary system Release Upon Ordering for 1 Occurrences starting 11/11/2023 [facility] Comment on above: Release Upon Orderin g for 1 Occurrences starting 11/11/2023 Immunizations Immunization Date Immunization Notes Care Provider Jairo burton 05-27-2022 SARS-CoV-2 (COVID-19 ) [id number] Pamela Benson [facility] 06-12-2021 SARS-CoV-2 (COVID-19 ) mRNA BNT-162b2 vax Pamela Lue [facility] 08-13-2020 SARS-CoV-2 (COVID-19 ) mRNA BNT-162b2 vax Pamela Lue [facility] Comment on above: Result Comment: 2023: [id number] 07-23-2020 SARS-CoV-2 (COVID-19 ) mRNA BNT-162b2 vax Pamela Lue [facility] Comment on above: Result Comment: 2023: [id number] Payers Date Payer Category Payer Self-pay 2023 Medicare [id number] 2020 Medicaid MEDICAID [facility] MEDICAID [id number] 2020-Present [phone] [address] [place] [address] Medicaid [id number] 2020 Medicaid [id number] 2020 Medicare MEDICARE MEDICAR E A AND B [id number] 2020-Present [phone] [address] [address] [place] [address] Medicare [id number] 2020 Medicare [id number] 1955 Unknown [id number] 1955 Unknown [id number] 1955 Unknown [id number] 1955 Unknown [id number] 1955 Unknown [id number] 1955 Unknown [id number] 1955 Unknown [id number] 1955 Unknown [id number] 1955 Unknown [id number] Unknown [id number] Social History Date Type Detail Facility Start: 08-03-2023 Tobacco smoking status Never s moked tobacco (finding) [facility] Start: 11-28-2023 End: 12-07-2023 Sex Assigned At Female [facility] consumption [facility] Start: 1955 Sex Assigned At Not on file B [facility] Start: 11-28-[address] [facility] Ex-smoker [facility] History of tobacco use Current smoker [facility] History of tobacco use Cigarette Smoker [facility] Start: 11-28-2023 End: 12-07-2023 Cigarettes smoked current (pack per day) - Reported 0.5 [facility] Start: 11-28-2023 Tobacco use and exposure Smokeless tobacco non-user [facility] Start: 11-28-2023 End: 12-07-2023 Alcohol intake Current drinker of alcohol (finding) [facility] National Score (1-10 0), lower number is lower risk 63 [facility] Functional Status Date Assessment Result Facility 08-03-2023 Functional Status N/A [facility] Clinical Notes 08-03-2023 to 12-16-2023 Lisa Kruse [...] cardiology clinic at the request of her HAND INSERTER OPERATOR doctor for perioperative restratification prior to D&C and LEEP procedure. Of note: Patient is deaf. 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 She does her best to communicate by lipreading. She is accompanied by her auto crane driver son, grandson, who assists in communication. Patient here for follow up [facility] ED visit on 12/10/2023 for syncope. She [...] a past medical history of Diabetes mellitus ([facility]). Surgical History She has no past [...] respect their wis (more content not included)... [facility] 12-08-2023 Note HNO ID: [id number] Author: LISA KRUSE LSW Service: ? Author Type: Terrazzo Layer Type: Progress Notes Filed: 12/08/2023 15:01 Note Text: Patient appears on the [facility] First Time Radiation Treatment Report. SW completed a chart review and there was a note from today...Please cancel Cadnis's SIM scheduled 12/09/[address] Ahmadi. Patient's PET scan shows metastatic disease and patient will proceed with chemotherapy per Dr. Templeton. SW will remain available and will follow up as appropriate. BRENT Siddiqi [facility] 12-08-2023 History of Presen t illness Narrative Patient appears on the [facility] First Time Radiation Treatment Report. SW completed a chart review and there was a note from today...Please cancel Candis's SIM scheduled 12/09/[address] Ahmadi. Patient's PET scan shows metastatic disease and patient will proceed with chemotherapy per Dr. Templeton. SW will remain available and will follow up as appropriate. BRENT Siddiqi documented in this encounter [facility] 12-08-2023 Telephone encounter Note Report faxed to Dr. Gleason and Dr. Avilez. Images pushed to [facility]. [facility] 12-08-2023 Miscellaneous Notes Report faxed to Dr. Gleason and Dr. Avilez. Images pushed to [employer]. Cancelled appointment. Yumiko: Please cancel Candis's SIM [...] Mecca Boyle RN documented in this encounter [facility] 12-08-2023 Telephone encounter Note MRI not needed per chat [facility] 12-08-2023 Miscellaneous Notes MRI not needed per chat Spoke with patients son, he would like scheudled at [facility] since its easiest for nusing home I sent over order will check on later, thanks Called son to see where they would like the MRI scheduled, had to leave a message. MRI order pending your approval. Mecca Boyle RN Please place MRI orders Rad onc consult order signed for [facility] referral (brachytherapy). Can cancel consult request with Dr. Mckinley - she is established with motorized squad captain onc out of [facility] (Dr. Avilez). Will need repeat MRI pelvis week of January 15. Thanks! El Dr Ahmadi- order pending your approval. Nathalie Saleh, PARAG Please place [facility] RAD onc consult I called and spoke to Angelina at [facility] and she said Candis does very well [...] language. She has been a resident at [facility] assisted living for 4-5 years and does very well there per Landen. I notified Landen that Dr. Ahmadi is ordering a PET scan, rad onc consult at [facility] and trying to move up Candis's consult with Dr. Mckinley goran. Landen states between himself and [facility] transportation should not be an issue. Yumiko: 1. Please schedule PET scan goran. 2. Rad Onc consult at [facility] 3. Move up Dr. Mckinley's consult goran. Dr. Mckinley are you or your staff able to assist in rescheduling Ms. Johnson's consult with you goran per Dr. Ahmadi? She is currently scheduled for consult on 12/28/23. Thanks Mecca Boyle,PARAG documented in this encounter [facility] 12-08-2023 Telephone encounter Note Cancelled appointment. [facility] 12-08-2023 Telephone encounter Note Yumiko: Please [...] Gleason and Dr. Avilez. Mecca Boyle RN [facility] 12-08-2023 Telephone encounter Note Spoke with patients son, he would like scheudled at [facility] since its easiest for nusing home I sent over order will check on later, thanks [facility] 12-08-2023 Telephone encounter Note Called son to see where they would like the MRI scheduled, had to leave a message. [facility] 12-07-2023 History of Presen t illness [...] when she presented to Dr. Crespo in [place] from her nursing facility with symptoms of [...] Alcohol use: Yes Drug use: Not Currently [employer]AIL [employer]ETING [employer] MERCHANDISER HISTORY: The patient is postmenopausa. COMPLETE REVIEW OF SYSTEMS: All other ROS: negative As noted in HPI PHYSICAL EXAM: VS: There were no vitals taken for this visit. KPS: 70 General Appearance: Alert and oriented. No acute distress. HEENT: NCAT. Sclera anicteric. PERRL. EOMI. Chest: No respiratory distress. Abdomen: Soft. Nontender. Nondistended. RETAIL GREETING CARD MERCHANDISER: Deferred at this time. RADIOLOGY/LABORATORY DATA: see [...] or concerns that may arise. Signed by: Laisha Coburn MD cc: El Ahmadi [address] [facility] [address] Jayashree Avilez Cartridge Loader Oncology-[facility] Abisai Gleason Heme/Onc-[facility] documented in this encounter [facility] 12-07-2023 Note HNO ID: [id number] Author: LAISHA COBURN MD Service: ? Author [...] when she presented to Dr. Crespo in [place] from her nursing facility with symptoms of [...] Alcohol use: Yes Drug use: Not Currently RETAIL GREETING CARD MERCHANDISER HISTORY: The patient is (more content not included)... [facility] 12-02-2023 Note HNO ID: [id number] Author: MIRIAN JIMENES RT(R) Service: ? Author [...] 02, 2023 TIME: 2:23 PM PAGER/CONTACT #: [facility] 12-02-2023 Note HNO ID: [id number] Author: ASHWINI BUNCH RN Service: ? Author [...] SITE APPEARANCE: Clean,Dry and Intact SIGNATURE: Ashwini uBnch RN PATIENT NAME: Candis Johnson DATE: December 02, 2023 TIME: 1:[address] [facility] 11-28-2023 Telephone encounter Note MRI order pending your approval. Mecca Boyle RN [facility] 11-28-2023 Telephone encounter Note Please place MRI orders [facility] 11-28-2023 Note HNO ID: [id number] Author: EL AHMADI MD Service: ? Author Type: Physician Type: Progress Notes Filed: 12/13/2023 04:59 Note Text: Radiation Oncology - New Patient/Consult Note PATIENT NAME: Candis Johnson PATIENT REQUESTING PHYSICIAN: Dr. Jayashree Avilez, Dr. Abisai Gleason DIAGNOSIS: Locally advanced cervical cancer. PATIENT IDENTIFICATION: This patient was seen in the Department of Radiation Oncology at the [facility] with El Ahmadi MD. She was accompanied today by her son. She is mostly deaf and much of the conversation was conducted with the son who is also the medical power of labourers. Final recommendations will be communicated back to the requesting physician by way of the shared medical record, or letter to requesting physician via US mail. HISTORY OF PRESENT ILLNESS: Ms. Johnson is a 68-year old deaf woman residing in an assisted living facility in [place], [place] and her son is her medical power of labourers. Per note from Dr. Gleason on 11/24/2023: [...] the final pathology as below Path Number: [id number] -- Diagnosis -- A. LEFT CERVIX, BIOPSY: [...] IIIb cervical cancer and was evaluated by RETAIL GREETING CARD MERCHANDISER oncology and due to the fact fixed [...] lives in an assisted living facility in [place], [place]. She had a legal guardian in the past and her son is now the medical power of labourers. She also has two other children. RADIATION HISTORY: The patient denies any history of therapeutic radiation. ALLERGIES: ALLERGIES No Known Allergies MEDICATIONS: Current Outpatient Medications: atorvastatin (LIPITOR) 40 mg tablet aspirin 81 mg cap TRULICITY 0.75 mg/0.5 mL pen injector cholecalciferol (VITAMIN D3) 5,000 unit tab acarbose (PRECOSE) 100 mg tablet acetaminophen (TYLENOL) 500 mg tablet CAPLYTA 42 (more content not included)... [facility] 11-28-2023 History of Presen t illness Narrative Images from the original note were not included. Radiation Oncology - New Patient/Consult Note PATIENT NAME: Candis Johnson PATIENT REQUESTING PHYSICIAN: Dr. Jayashree Avilez, Dr. Abisai Gleason DIAGNOSIS: Locally advanced cervical cancer. PATIENT IDENTIFICATION: This patient was seen in the Department of Radiation Oncology at the [facility] with El Ahmadi MD. She was accompanied today by her son. She is mostly deaf and much of the conversation was conducted with the son who is also the medical power of labourers. Final recommendations will be communicated back to [...] lives in an assisted living facility in [place], [place]. She had a legal guardian in the past and her son is now the medical power of labourers. She also has two other children. RADIATION [...] her son is her medical power of labourers. She was recently diagnosed with advanced cervical [...] later this week. She has met with RETAIL GREETING CARD MERCHANDISER oncologist Dr. Avilez and medical oncologist Dr. [...] the residual disease to be performed at [facility] by one of my colleagues. 3. Referral will be made to my motorized squad captain radiation oncology colleagues at [facility] for evaluation and treatment recommendations including making [...] which included preparing to see the patient, [id number] patient care, and counseling and educating the patient/family/caregiver. This document has been created with the use of voice recognition technology. It may contain inaccuracies, misspellings, inaccurate syntax or inappropriate word context that are a result of the inadequacies/shortcomings of said technology/software. documented in this encounter [facility] 11-28-2023 Telephone encounter Note Rad onc consult order signed for main campus referral (brachytherapy). Can cancel consult request with Dr. Mckinley - she is established with motorized squad captain onc out of [facility] (Dr. Avilez). Will need repeat MRI pelvis week of January 15. Thanks! El [facility] 11-28-2023 Nurse Note Pacemaker/Defibrillator?N Previous Cancer(s)?N Previous Radiation?N Lupus/Scleroderma?N On body monitoring device?N [facility] 11-28-2023 Nurse Note Pacemaker/Defibrillator?N Previous Cancer(s)?N Previous Radiation?N Lupus/Scleroderma?N On body monitoring device?N documented in this encounter [facility] 11-28-2023 Nurse Note Radiation Therapy - Patient Education Note PATIENT NAME: Candis Johnson PATIENT November 28, 2023 [facility] FACILITY/LOCATION: [facility] READINESS TO LEARN Cognitive Ability: Confused [...] device: No Signed by: Nathalie Saleh RN [facility] 11-28-2023 Nurse Note Radiation Therapy - Patient Education Note PATIENT NAME: Candis Johnson PATIENT November 28, 2023 [facility] FACILITY/LOCATION: [facility] READINESS TO LEARN Cognitive Ability: Confused [...] Nathalie Saleh RN documented in this encounter [facility] 11-28-[address] Ahmadi- kaelyn pending your approval. Nathalie Saleh RN [facility] 11-28-2023 Telephone encounter Note Please place [facility] RAD onc consult [facility] 11-28-2023 Note Education (RADTSA) CANDIS JOHNSON ([id number]) 1955 F DEF Date Time Provider Department 11/28/23 NATHALIE SALEH Reason for Visit: Patient Education [91] Visit Notes: >> Nathalie Saleh RN Mon November 28, 2023 10:22 AM Status: Signed Radiation Therapy - Patient Education Note PATIENT NAME: Candis Johnson PATIENT November 28, 2023 [facility] FAC[facility]/LOCATION: [facility] READINESS TO LEARN Cognitive Ability: Confused [...] Encounter Status:Closed by NATHALIE SALEH on 11/28/[address] [facility] 11-25-2023 Telephone encounter Note I called and spoke to Angelina at [facility] and she said Candis does very well [...] language. She has been a resident at [facility] assisted living for 4-5 years and does very well there per Landen. I notified Landen that Dr. Ahmadi is ordering a PET scan, rad onc consult at [facility] and trying to move up Candis's consult with Dr. Elías zimmer. Landen states between himself and [facility] transportation should not be an issue. Yumiko: 1. Please schedule PET scan goran. 2. Rad Onc consult at [facility] 3. Move up Dr. Mckinley's consult goran. Dr. Mckinley are you or your staff able to assist in rescheduling Ms. Johnson's consult with you goran per Dr. Ahmadi? She is currently scheduled for consult on 12/28/23. Thanks Mecca Boyle RN [facility] 11-12-2023 Hospital course Narrative Cartridge Loader/Onc Discharge Summary [facility] Patient Name: Candis Johnson Patient : [...] examination of vaginal mass as transfer from [facility]; HD#1 (11/09): Patient is hard [...] Follow-up care, restrictions reviewed. Wil Mai MD [place] Resident [facility] 11/12/2023, 9:07 AM documented in this encounter [facility] 11-12-2023 History of Presen t illness Narrative Gynecology Oncology Progress Note Candis Johnson is a 68 y.o. female HD#3, POD#1 who transferred from [place] due to concern for vaginal mass Patient [...] with Deafness - Discussed with nursing at [facility] and patient's son, Landen - [...] significant clearance testing in anticipation for her motorized squad captain/urologic procedures - 09/09/23: myocardial perfusion imagining normal - 09/09/23: ECHO: EF 55-60%; normal RV size/function. Bilateral enlargement. Grade 2 diastolic dysfunction. - Repeat EKG 11/09: Normal sinus rhythm, anterior infarct age undetermined (old, seen on EKG on 08/15/23) - Nitroglycerin ordered PRN - Ranolazine not ordered inpatient - Continue to monitor Anemia - Admit Hgb @ [place] 6.5 - S/p 2u pRBC Hgb 8.9 - Admit Hgb at [facility] 8.7 - Hgb 5/3; 9.0 [...] insulin requirement Schizophrenia - Per nursing at [facility] and patient's son, patient has significant PMH of schizophrenia - Home meds include Topomax and Lumaterprone (not on formulary at [facility]. Consulted with [facility] pharmacy and they recommended [...] y.o. female HD#2, POD#0 who transferred from [place] due to concern for vaginal mass Patient [...] Johnson 68 y.o. female HD#2 transferred from [place] due to concern for vaginal mass - [...] with Deafness - Discussed with nursing at [facility] and patient's son, Landen - [...] significant clearance testing in anticipation for her motorized squad captain/urologic procedures - 09/09/23: myocardial perfusion imagining normal - 09/09/23: ECHO: EF 55-60%; normal RV size/function. Bilateral enlargement. Grade 2 diastolic dysfunction. - Repeat EKG 11/09: Normal sinus rhythm, anterior infarct age undetermined (old, seen on EKG on 08/15/23) - Nitroglycerin ordered PRN - Ranolazine not ordered inpatient - Continue to monitor Anemia - Admit Hgb @ [place] 6.5 - S/p 2u pRBC Hgb 8.9 - Admit Hgb at [facility] 8.7 - Hgb /; 9.0 [...] insulin requirement Schizophrenia - Per nursing at [facility] and patient's son, patient has significant PMH of schizophrenia - Home meds include Topomax and Lumaterprone (not on formulary at [facility]. Consulted with IP pharmacy and they recommended [...] a 68 y.o. female HD#2 transferred from [place] due to concern for vaginal mass Patient [...] Johnson 68 y.o. female HD#2 transferred from [place] due to concern for vaginal mass - [...] with Deafness - Discussed with nursing at [facility] and patient's son, Landen - [...] significant clearance testing in anticipation for her motorized squad captain/urologic procedures - 09/09/23: myocardial perfusion imagining normal - 09/09/23: ECHO: EF 55-60%; normal RV size/function. Bilateral enlargement. Grade 2 diastolic dysfunction. - Repeat EKG 11/09: Normal sinus rhythm, anterior infarct age undetermined (old, seen on EKG on 08/15/23) - Nitroglycerin ordered PRN - Ranolazine not ordered inpatient - Continue to monitor Anemia - Admit Hgb @ [place] 6.5 - S/p 2u pRBC Hgb 8.9 - Admit Hgb at [facility] 8.7 - AM CBC pending [...] insulin requirement Schizophrenia - Per nursing at [facility] and patient's son, patient has significant PMH of schizophrenia - Home meds include Topomax and Lumaterprone (not on formulary at [facility]. Consulted with [facility] pharmacy and they recommended [...] as the patient's health care power of labourers. Landen has been advised of the risks, [...] Evaluation: A cardiology evaluation was completed at [facility] prior to her transfer. Records have been reviewed. Lab results have been reviewed Proceed with surgical evaluation as planned Jayashree Avilez MD Gynecologic Oncology Obstetric/Gynecology Resident Interval Note At time of rounding, patient in MRI suite obtaining MRI pelvis. Dr. Avilez, RETAIL GREETING CARD MERCHANDISER/ONC attending, present at bedside to discuss evaluation and management plans with patient's son, Landen. Landen is the patient's power of labourers and medical decision maker. Paperwork uploaded to [...] ms QTc Calculation (Bazett) 410 ms P Hardin 40 degrees R Hardin 6 degrees T Hardin 20 degrees EKG 12 Lead Collection Time: 11/10/23 4:32 AM Result Value Ref Range Ventricular Rate 65 BPM Atrial Rate 65 BPM P-R Interval 172 ms QRS Duration 86 ms Q-T Interval 406 ms QTc Calculation (Bazett) 422 ms P Hardin 42 degrees R Hardin 7 degrees T Hardin 19 degrees Comprehensive Metabolic Panel w/ Reflex [...] Sample Expiration 11/13/2023,2359 Arm Band Number BE [id number] ABO/Rh O POSITIVE Antibody Screen NEGATIVE Lipid [...] 65 - 105 mg/dL Annabelle Moss MD HAND INSERTER OPERATOR Resident, PGY2 [place], [place] 11/10/2023, 5:14 PM Attending Physician Statement [...] the resident. Jayashree Avilez MD Gynecologic Oncology KEY ACCOUNT EXECUTIVE ALL NOTES Facility/Department: [address] SURG CLINICAL BEDSIDE SWALLOW EVALUATION NAME: Candis Johnson : 1955 ADMISSION DATE: 11/10/2023 ADMITTING DIAGNOSIS: has Vaginal mass on their problem list. Date of Eval: 11/10/2023 Evaluating Therapist: JODIE Damon Current Diet level: Current Diet : NPO Current Liquid Diet : NPO Primary Complaint: Candis Johnson is a 68 y.o. female presents to [facility] as a direct transfer from [facility] for concern for vaginal cancer. All the information is derived from a paper chart from [facility]. We do not have access to [...] Normal in all situations Treatment Plan Requires KEY ACCOUNT EXECUTIVE Intervention: Yes 1-2X D/C Recommendations: Ongoing speech [...] Patient Education Response: Verbalizes understanding Therapy Time [id number] JODIE Damon 11/10/2023 11:10 AM Unable to complete admission assessment. Patient has impaired hearing. documented in this encounter [facility] 10-06-2023 Note Cardiology Clinic No te Chief Complaint: preop risk stratification HPI: PMHx: Candis Johnson is a 68 y.o. female With no reported cardiac history who presents to cardiology clinic at the request of her HAND INSERTER OPERATOR doctor for perioperative restratification prior to D&C and LEEP procedure. Of note: Patient is deaf. 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 She does her best to communicate by lipreading. She is accompanied by her auto crane driver today, who assists in communication. Today, [...] N (more content not included)... [facility] 10-06-2023 Note Patient here for 2 w cowlitz follow up SOB, atypical chest pain, and [...] systems reviewed and are negative. [facility] 09-23-2023 Note Cardiology Clinic No te Chief Complaint: preop risk stratification HPI: Candis Johnson is a 68 y.o. female With no reported cardiac history who presents to cardiology clinic at the request of her HAND INSERTER OPERATOR doctor for perioperative restratification prior to D&C and LEEP procedure. Of note: Patient is deaf. 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 She does her best to communicate by lipreading. She is accompanied by her auto crane driver today, who assists in communication. Today, [...] a past medical history of Diabetes mellitus ([facility]). Surgical History She has no past [...] regardi (more content not included)... [facility] 09-23-2023 Note Concerns: Not much s tates some swelling in legs and some back back, chest pain seems to be getting better [facility] 08-26-2023 Note New patient here to establish care. Ref from Dr. Crespo for surgery clearance prior to D&C and LEEP procedure. This is scheduled for 08/31 at [facility] per patient. She had labs and EKG last week. Says she gets intermittent chest pain and SOB w/ exertion. Review of Systems HENT: Positive for hearing loss. Cardiovascular: Positive for chest pain (intermittent) and dyspnea on exertion (intermittent). All other systems reviewed and are negative. [facility] 08-26-2023 Note Cardiology Clinic No te Chief Complaint: preop risk stratification HPI: Candis Johnson is a 68 y.o. female With no reported cardiac history who presents to cardiology clinic at the request of her HAND INSERTER OPERATOR doctor for perioperative restratification prior to D&C and LEEP procedure. Of note: Patient is deaf. 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 She does her best to communicate by lipreading. She is accompanied by her auto crane driver today, who assists in communication. As per patient and her auto crane driver, patient denies any cardiac history. She denies any prior history of heart failure, CAD, PCI, or HI. She does report occasional chest pain. Chest [...] a past medical history of Diabetes mellitus ([facility]). Surgical History She has no past [...] med (more content not included)... [facility] 08-04-2023 Evaluation + Plan note Diagnostic [...] including vitamins, herbs, eye drops, creams, and eput-bdd-nezsvew medicines. Any problems you or family members [...] health care provider tells you to. Taking mdku-pdb-ukivsvx medicines, vitamins, herbs, and supplements. General instructions [...] provider. Document Revised: 10/22/2022 Document Reviewed: 10/22/2022 [employer] Patient Education 2022 [employer]. 08/03/2023 09:37:21 Hematuria, Adult Hematuria, Adult Hematuria [...] Follow these instructions at home: Medicines Take zrne-uxw-zailjif and prescription medicines only as told by [...] or the blood stops without treatment. Take gjea-urf-jjjmlro and prescription medicines only as told by your health care provider. Drink enough fluid to keep your urine pale yellow. This information is not intended to replace advice given to you by your health care provider. Make sure you discuss any questions you have with your health care provider. Document Revised: 02/25/2021 Document Reviewed: 02/25/2021 [employer] Patient Education 2022 [employer]. Follow Up Care 07/13/2023 11:34:42 With:Marcelino GALLARDO, Pamela Fam URL, URO Address: When: Unknown Comments:Schedule Cysto, Rt ureteroscopy, possible biopsy, and Rt stent placement [facility] Evaluation + Plan note No data available for this section [facility] Evaluation note Diagnosis Vaginal mass- Primary Other specified symptom associated with female genital organs Bleeding from the genitourinary system Other specified disorders of urinary tract documented in this encounter [facility] note* Diagnosis High grade squamous intraepithelial lesion (HGSIL), grade 3 SUDHA, on biopsy of cervix- Primary documented in this encounter [facility] note* Diagnosis 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)- Primary documented in this encounter [facility] note* Diagnosis 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)- Primary documented in this encounter [facility] note* Diagnosis 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)- Primary documented in this encounter [facility] note* Diagnosis 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)- Primary [facility] Discharge instructions No data available for this section [facility] Discharge instructions* Attachments The following attachments cannot be sent through Care Everywhere. * Hysteroscopy: Post-op (Faroese) * Cystoscopy: [facility]-op (Faroese) [facility] No data available for this section [facility] reason for referral (narrative)* Diagnostic Procedure Only (Routine) - Pending Review Specialty Diagnoses / Procedures Referred By Contac t Referred To Contact MOLECULAR & FUNCTIONAL IMAGING Diagnoses 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) Procedures NM PET/CT SKULL-THIGH INITIAL PET IMAGING CT ATTENUATION SKULL BASE MID-THIGH El Ahmadi MD [address] [place] [address] [place] [address] Molecular & Functional Imaging [address] [place] [address] Referral ID Status Reason Start Date Expiration Date Visits Requested Visits Authorized [id number] Pending Review Auto-Generat ed Referral 11/25/2023 12/24/2024 1 1 [facility] Summary Purpose Family History No Family [...] W/O & W/CONTRAST MATERIAL El Ahmadi MD [address] [place] [address] [place] [address] [place] [address] Referral ID Status Reason Start Date Expiration Date Visits Requested Visits Authorized [id number] Pending Review Auto-Generat ed Referral 01/16/2024 12/27/2024 1 1 Specialty Diagnoses / Procedures Referred By Contac t Referred To Contact Radiation Oncology Diagnoses 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) Procedures RAD/ONC CONSULT OFFICE/OUTPATIENT [facility] MDM 60 MINUTES El Ahmadi MD [address] [place] [address] [place] [address] Referral ID Status Reason Start Date Expiration Date V isits Requested Visits Authorized [id number] Closed PCP Requested Referral 11/29/2023 11/27/2024 1 1 Additional Source Comments INFORMATION SOURCE (unrecogn ized section and content) DATE CREATED AUTHOR 07/05/2022 [facility] DATE CREATED AUTHOR AUTHOR'S ORGANIZ ATION 11/04/2023 [facility] EPIC DATE CREATED AUTHOR AUTHOR'S ORGANIZ ATION 12/13/2023 [facility] DATE CREATED AUTHOR AUTHOR'S ORGANIZ ATION 12/17/[address] [facility] DATE CREATED AUTHOR AUTHOR'S ORGANIZ ATION 12/17/2023 [facility] DATE CREATED AUTHOR AUTHOR'S ORGANIZ ATION 12/20/2023 [facility] DATE CREATED AUTHOR AUTHOR'S ORGANIZ ATION 12/29/2023 Corona Willingham [facility] Patient Care team informatio n (unrecognized section and content) Account Services Representative Relationship Specialty Start Date End Date Ander Langley [address] [place] [phone] PCP - General Internal Medicine 11/10/23 Reason for Visit (unrecogniz ed section and content) Specialty Diagnoses / Procedures Referred By Contac t Referred To Contact Diagnoses Vaginal mass vaginal cancer, anemia bleeding Jayashree Avilez MD [address] [place] [id number] [facility] [address] [place] [address] Referral ID Status Reason Start Date Expiration Date Visits Re quested Visits Authorized [id number] 1 1 Reason Comments Patient Education Reason Comments Orders Patient Update Reason Comments Patient Update Reason Onset Date Comments Consult Simulation Request Form 11/28/2023 Reason Comments Consult Specialty Diagnoses / Procedures Referred By Contac t Referred To Contact Radiation Oncology Diagnoses 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) Procedures RAD/ONC CONSULT OFFICE/OUTPATIENT [facility] 60 MINUTES El Ahmadi MD [address] [place] [address] [place] [address] Referral ID Status Reason Start Date Expiration Date V isits Requested Visits Authorized [id number] Closed PCP Requested Referral 11/29/2023 11/27/2024 1 [...] Reason: Pt NPO)1624 (SEP Hold - Provider: [facility] [employer] - Reason: Unreviewed Transfer Orders)193 (MAR [...] physicianNotify physician 0754 (Not Given - Provider: Radah Cadet RN - Reason: Order parameters not [...] parameters not met)1624 (MAR Hold - Provider: [facility] [employer] - Reason: Unreviewed Transfer Orders)1700 (Automatically Held - Provider: [facility] [employer])193 (SEP Unhold - Provider: Marysol Head [...] Tiffany Autohold - Reason: Unreviewed Transfer Orders)1931 ([facility] Unhold - Provider: Marysol Head RN) acetaminophen (TYLENOL) tablet 1,000 mg 1,000 mg, Oral, EVERY 6 HOURS PRN, Starting on Rosina 11/10/23 at 0934, Until Discontinued, Pain Mild (1-3) 162 (SEP Hold - Provider: Tiffany Autohold - Reason: Unreviewed Transfer Orders)1931 ([facility] Unhold - Provider: Marysol Head RN) albuterol sulfate HFA (PROVENTIL;VENTOLIN;PROAIR) 108 (90 Base) MCG/ACT inhaler 2 puff 2 puff, Inhalation, EVERY 6 HOURS PRN, Starting on Rosina 11/10/23 at 0937, Until Discontinued, Wheezing, Initiate RT Bronchodilator Protocol: Yes - Inpatient Protocol 1623 ([facility] Hold - Provider: Tiffany Autohold - Reason: Unreviewed Transfer Orders)1931 ([facility] Unhold - Provider: Marysol Head RN) dextrose [...] 60 minutes, discontinue dextrose 10% infusion. 1623 ([facility] Hold - Provider: [facility] [employer] - Reason: Unreviewed Transfer Orders)1931 ([facility] Unhold - Provider: Marysol Head RN) dextrose [...] at 100 mL/hour and notify provider. 1623 ([facility] Hold - Provider: Tiffany Autohold - Reason: Unreviewed Transfer Orders)1931 ([facility] Unhold - Provider: Marysol Head RN) dextrose [...] at 100 mL/hour and notify provider. 1623 ([facility] Hold - Provider: Tiffany Autohold - Reason: Unreviewed Transfer Orders)1931 ([facility] Unhold - Provider: Marysol Head RN) fluticasone (FLONASE) 50 MCG/ACT nasal spray 2 spray 2 spray, Each Nostril, DAILY PRN, Starting on Rosina 11/10/23 at 0938, Until Discontinued, Rhinitis 1623 ([facility] Hold - Provider: [facility] [employer] - Reason: Unreviewed Transfer Orders)1931 ([facility] Unhold - Provider: Marysol Head RN) gadoteridol [...] minutes x 2 and notify provider. 1623 ([facility] Hold - Provider: [facility] [employer] - Reason: Unreviewed Transfer Orders)1931 ([facility] Unhold - Provider: Marysol Head RN) glucose [...] LESS THAN 70 mg/dL, notify provider. 1623 ([facility] Hold - Provider: [facility] [employer] - Reason: Unreviewed Transfer Orders)1931 ([facility] Unhold - Provider: Marysol Head RN) HYDROmorphone [...] Bronchodilator Protocol: Yes - Inpatient Protocol 1623 ([facility] Hold - Provider: Tiffany Autohold - Reason: Unreviewed Transfer Orders)1931 ([facility] Unhold - Provider: Marysol Head RN) nitroGLYCERIN (NITROSTAT) SL tablet 0.4 mg 0.4 mg, SubLINGual, EVERY 5 MIN PRN, Starting on Rosina 11/10/23 at 0943, Until Discontinued, Chest pain, Place 1 tablet under tongue upon chest pain, wait 5 minutes and may repeat up to 3 doses in 15 minutes. Do not crush or break. Substituted for nitroGLYCERIN translingual spray (NITROLINGUAL).. 1623 ([facility] Hold - Provider: Tiffany Autohold - Reason: Unreviewed Transfer Orders)1931 ([facility] Unhold - Provider: Marysol Head RN) ondansetron (ZOFRAN) injection 4 mg(Linked Group 2) 4 mg, IntraVENous, EVERY 6 HOURS PRN, Starting on Rosina 11/10/23 at 0353, Until Discontinued, Nausea, Vomiting, Administer if oral route cannot be used. 1623 ([facility] Hold - Provider: Tiffany Autohold - Reason: Unreviewed Transfer Orders)1931 ([facility] Unhold - Provider: Marysol Head RN) ondansetron (ZOFRAN-ODT) disintegrating tablet 4 mg(Linked Group 2) 4 mg, Oral, EVERY 8 HOURS PRN, Starting on Rosina 11/10/23 at 0353, Until Discontinued, Nausea, Vomiting 1623 ([facility] Hold - Provider: Tiffany Autohold - Reason: Unreviewed Transfer Orders)1931 ([facility] Unhold - Provider: Marysol Head RN) sod [...] or prosecute any alcohol or drug abuse patient.[facility] the event this information is protected by the Federal Confidentiality of Alcohol and Drug Abuse Patient Records regulations: The Federal rules restrict any use of the information to criminally investigate or prosecute any alcohol or drug abuse patient.[facility] the event this information is protected by the Federal Confidentiality of Alcohol and Drug Abuse Patient Records regulations: The Federal rules restrict any use of the information to criminally investigate or prosecute any alcohol or drug abuse patient.[facility] the event this information is protected by the Federal Confidentiality of Alcohol and Drug Abuse Patient Records regulations: The Federal rules restrict any use of the information to criminally investigate or prosecute any alcohol or drug abuse patient.[facility] Hospital[facility] the event this information is protected by the Federal Confidentiality of Alcohol and Drug Abuse Patient Records regulations: The Federal rules restrict any use of the information to criminally investigate or prosecute any alcohol or drug abuse patient.[facility] Hospital[facility] the event this information is protected by the Federal Confidentiality of Alcohol and Drug Abuse Patient Records regulations: The Federal rules restrict any use of the information to criminally investigate or prosecute any alcohol or drug abuse patient.[facility] Hospital[facility] the event this information is protected by the Federal Confidentiality of Alcohol and Drug Abuse Patient Records regulations: The Federal rules restrict any use of the information to criminally investigate or prosecute any alcohol or drug abuse patient.[facility] Hospital[facility] the event this information is protected by the Federal Confidentiality of Alcohol and Drug Abuse Patient Records regulations: The Federal rules restrict any use of the information to criminally investigate or prosecute any alcohol or drug abuse patient.[facility] FOR RECORDS PERTAINING TO PATIENTS WHO [...] BE BASED ON THE PRIMARY CLINICAL RECORDS. [facility] [employer] [facility]. provides no warranty or guarantee of the accuracy or completeness of information in this document.
[2024-01-03 20:05] LABS: Glucometer 122 mg/dL (74-106)
[2024-01-03] MEDS: RANOLAZINE 500 MG TAB.ER.12H PO (21:26)
[2024-01-03] MEDS: CEFTRIAXONE 1,000 MG in 0.9 % SODIUM CHLORIDE 50 ML 100 MG IV (21:27)
[2024-01-03] MEDS: CIPROFLOXACIN IN 5 % DEXTROSE 400 MG/200 ML PIGGYBACK 200 MG IV (21:27)
[2024-01-03] MEDS: ATORVASTATIN CALCIUM 40 MG TABLET PO (21:27)
[2024-01-03] MEDS: TRAZODONE HCL 50 MG TABLET 25 MG PO (21:27)
[2024-01-03] MEDS: TOPIRAMATE 25 MG TABLET PO (21:27)
[2024-01-03] MEDS: PANTOPRAZOLE SODIUM 40 MG VIAL IV (21:27)
[2024-01-03] MEDS: LACTATED RINGER'S SOLUTION 1,000 ML 100 ML IV (21:28)
[2024-01-03] MEDS: ACETAMINOPHEN 500 MG TABLET 1000 MG PO (23:13)
[2024-01-03 23:23] LABS: Hematocrit 31.1 % (36.0-48.0); Hemoglobin 9.4 g/dL (12.0-16.0)
[2024-01-03] MEDS: IPRATROPIUM/ALBUTEROL SULFATE 3 ML AMPUL.NEB IH (23:33)
[2024-01-04] VITALS (22 sets, daily range): BP systolic 99–131; BP diastolic 62–75; PULSE 61–85; TEMP 36.5–36.9; O2SAT 91–99
[2024-01-04] MEDS: IPRATROPIUM/ALBUTEROL SULFATE 3 ML AMPUL.NEB IH ×4 (05:00→23:06)
[2024-01-04 05:12] LABS: Basophils Percent Auto 0.1 % (0.2-2.0); Eosinophils Percent Auto 0.3 % (0.9-7.0); Hematocrit 29.7 % (36.0-48.0); Immature Granulocytes Abs Auto 0.04 10^3/uL (0.00-0.03); Immature Granulocytes Pct Auto 0.4 % (0.0-0.5); Lymphocytes Absolute Auto 0.4 10^3/uL (1.2-3.8); Lymphocytes Percent Auto 3.6 % (20.5-60.0); Mean Corpuscular HGB Conc 30.3 g/dL (29.9-35.2); Mean Corpuscular Hemoglobin 27.3 pg (26.7-34.0); Mean Platelet Volume 8.3 fL (9.5-13.5); Monocytes Absolute Auto 0.6 10^3/uL (0.3-0.8); Monocytes Percent Auto 5.9 % (1.7-12.0); Neutrophils Absolute Auto 9.2 10^3/uL (1.4-6.5); Neutrophils Percent Auto 89.7 % (43.0-75.0); Platelet Count 333 10^3/uL (150-450); Red Cell Distribution Width 16.6 % (11.0-15.0); White Blood Count 10.3 10^3/uL (4.0-11.0)
[2024-01-04 05:31] LABS: Alanine Aminotransferase 17 U/L (14-59); Albumin Level 2.7 g/dL (3.4-5.0); Alkaline Phosphatase 78 U/L (46-116); Anion Gap 12.4; Aspartate Amino Transferase 12 U/L (15-37); BUN Creatinine Ratio 15.8; Bilirubin Total 0.3 mg/dL (0.2-1.0); Calcium 8.4 mg/dL (8.5-10.1); Carbon Dioxide 24.9 mmol/L (21.0-32.0); Chloride 107 mmol/L (98-107); Estimated GFR (African America 46 (>=60); Estimated GFR (Non-African Ame 38 (>=60); Globulin 2.7 g/dL; Glucose 107 mg/dL (74-106); Potassium 4.3 mmol/L (3.5-5.1); Sodium 140 mmol/L (136-145); Total Protein 5.4 g/dL (6.4-8.2)
[2024-01-04] MEDS: LACTATED RINGER'S SOLUTION 1,000 ML 100 ML IV ×2 (05:39→18:53)
[2024-01-04 07:30] LABS: Glucometer 95 mg/dL (74-106)
[2024-01-04 07:47] LABS: Bilirubin Urine SMALL (NEGATIVE); Blood Urine LARGE (NEGATIVE); Clarity Urine SL CLOUDY (CLEAR); Color Urine RED (YELLOW); Glucose Urine UA NEGATIVE (NEGATIVE); Ketones Urine NEGATIVE (NEGATIVE); Leukocyte Esterase Urine MODERATE (NEGATIVE); Nitrite Urine POSITIVE (NEGATIVE); Protein Urine 100 mg/dL (NEG/TRACE)
[2024-01-04 07:48] LABS: Urine Microscopic Indicated YES
[2024-01-04 07:55] LABS: Bacteria Urine SMALL #/HPF (NONE SEEN); RBC Urine >100 #/HPF (0-2)
[2024-01-04 07:56] LABS: Cast Seen? NONE SEEN #/LPF (NONE SEEN); Crystals Seen? None Seen #/HPF (None Seen); Mucus Urine NONE SEEN (NONE SEEN); Squamous Epithelial Cell Urine FEW #/LPF (NONE/RARE); Transitional Epi Cells Urine FEW #/LPF (NONE SEEN); Urine Culture Indicated ALREADY ORDERED
--- NOTE | 2024-01-04 08:23 | CM.NOTE ---
Rounds made with Dr. Bills. Dr. Bills reviews plan of care. Candis jhonny head in agreement or points to abdomen when asked if has pain. Plan to discontinue telemetry. Urology Consult ordered.
--- NOTE | 2024-01-04 09:12 | P.HP_ITS ---
HPI H&P: HPI History of Present Illness Chief complaint: Abdominal Pain Anemia hydroureter adb pain ckd Narrative: Patient presented to the emergency room with increasing abdominal pain. Noted to have an acute UTI with moderately severe right and moderate left hydronephrosis likely secondary to obstructive mass in bladder. Patient medical workup and treatment of same I saw patient up on the medical surgical floor, she was resting comfortably, awakened easily, seemed to answer questions appropriately as she does read lips. She had no other complaints other than her belly. And asking for the telemetry to be removed. Opioid HPI Opioid Management Most Recent Pain and Opioid Data: Last Pain Scale 2 01/04/24 10:00 Last Pain Assessment 01/04/24 10:00 Last MAR Pain Assessment 01/04/24 00:42 Last ORT Total Score 0 01/03/24 19:35 Last ORT Risk Category Low Risk 01/03/24 19:35 PFSH PFS Medical History (Updated 01/03/24 @ 17:24 by Thania Alcantara DO) Cardiac arrhythmia ?I49.9 - Cardiac arrhythmia, unspecified (ICD-10) Syncope ?R55 - Syncope and collapse (ICD-10) Anemia ?D64.9 - Anemia, unspecified (ICD-10) Metastasis from cervical cancer ?C79.9 - Secondary malignant neoplasm of unspecified site (ICD-10) ?C53.9 - Malignant neoplasm of cervix uteri, unspecified (ICD-10) Cervical cancer, FIGO stage IV ?C53.9 - Malignant neoplasm of cervix uteri, unspecified (ICD-10) Postmenopausal bleeding ?N95.0 - Postmenopausal bleeding (ICD-10) CAD (coronary artery disease) ?I25.10 - Atherosclerotic heart disease of [place] coronary artery without angina pectoris (ICD-10) (HFpEF) heart failure with preserved ejection fraction ?I50.30 - Unspecified diastolic (congestive) heart failure (ICD-10) Heart palpitations ?R00.2 - Palpitations (ICD-10) Diastolic dysfunction ?I51.89 - Other ill-defined heart diseases (ICD-10) Lower extremity edema ?R60.0 - Localized edema (ICD-10) Atypical chest pain ?R07.89 - Other chest pain (ICD-10) Dyspnea ?R06.00 - Dyspnea, unspecified (ICD-10) Poor speech ?R47.9 - Unspecified speech disturbances (ICD-10) High cholesterol ?E78.00 - Pure hypercholesterolemia, unspecified (ICD-10) Diabetes ?E11.9 - Type 2 diabetes mellitus without complications (ICD-10) Schizophrenia ?F20.9 - Schizophrenia, unspecified (ICD-10) COPD (chronic obstructive pulmonary disease) ?J44.9 - Chronic obstructive pulmonary disease, unspecified (ICD-10) Psychological disorder ?F99 - Mental disorder, not otherwise specified (ICD-10) Deaf ?H91.90 - Unspecified hearing loss, unspecified ear (ICD-10) Hypertension ?I10 - Essential (primary) hypertension (ICD-10) Incomplete bladder emptying ?R33.9 - Retention of urine, unspecified (ICD-10) Asthma ?J45.909 - Unspecified asthma, uncomplicated (ICD-10) Hydroureter ?N13.4 - Hydroureter (ICD-10) 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 - Other and unspecified doubling of uterus (ICD-10) Thickened endometrium ?R93.89 - Abnormal findings on diagnostic imaging of other specified body structures (ICD-10) 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 ?R87.613 - High grade squamous intraepithelial lesion on cytologic smear of cervix (HGSIL) (ICD-10) Surgical History (Updated 08/15/23 @ 10:19 by Nathalie Hudson NP) History of appendectomy ?Z90.49 - Acquired absence of other specified parts of digestive tract (ICD- 10) H/O section ?Z98.891 - History of uterine scar from previous surgery (ICD-10) Family History (Updated 12/10/23 @ 23:17 by Garrison Novak) Father Family history of coronary artery disease Family history of myocardial infarction Mother Family history of coronary artery disease Family history of diabetes mellitus Family history of myocardial infarction Other Family history of hypertension Family history of stroke Kidney disease Social History (Updated 12/10/23 @ 23:19 by Garrison Novak) Within the past year, how often did you have a drink containing alcohol: never Score interpretation: A score less than 3 is consistent with normal alcohol consumption. 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 Known occupational exposures/hazards: No Highest level of school completed/degree received: 12th grade, no diploma Are you now , , , , never or living with a partner: In a typical week, how many times do you talk on the telephone with family, friends, or neighbors: 3 or more times per week How often do you get together with friends or relatives: 3 or more times per week Gender Identity: female Meds Home Medications and Allergies Home Medications ?Medication ?Instructions ?Recorded ?Confirmed ?Type acarbose 100 mg tablet 100 mg PO BIDWM 08/15/23 01/03/24 History acetaminophen 500 mg capsule 1,000 mg PO .QHS 08/15/23 01/03/24 History albuterol sulfate 90 mcg/actuation 2 inh inhalation Q6H PRN shortness 08/15/23 01/03/24 History aerosol inhaler (ProAir HFA) of breath or wheezing atorvastatin 40 mg tablet 40 mg PO BEDTIME 08/15/23 01/03/24 History cholecalciferol (vitamin D3) 125 125 mcg PO DAILY 08/15/23 01/03/24 History mcg (5,000 unit) capsule famotidine 40 mg tablet 40 mg PO .QHS 08/15/23 01/03/24 History ferrous sulfate 325 mg (65 mg 325 mg PO DAILY 08/15/23 01/03/24 History iron) tablet,delayed release fluticasone propionate 50 2 spray intranasal DAILY PRN 08/15/23 01/03/24 History mcg/actuation nasal allergy symptoms spray,suspension (Allergy Relief (fluticasone)) ipratropium bromide 0.02 % 2.5 ml inhalation Q4H PRN 08/15/23 01/03/24 History solution for inhalation shortness of breath or wheezing lumateperone 42 mg capsule 42 mg PO .QHS 08/15/23 01/03/24 History (Caplyta) magnesium hydroxide 400 mg/5 mL 2,400 mg PO DAILY PRN constipation 08/15/23 01/03/24 History oral suspension (Milk of Magnesia) metformin 1,000 mg tablet 1,000 mg PO BID 08/15/23 01/03/24 History montelukast 10 mg tablet 10 mg PO DAILY 08/15/23 01/03/24 History nitroglycerin 400 mcg/spray 1 spray sublingual Q5M PRN chest 08/15/23 01/03/24 History translingual pain ranolazine 500 mg tablet,extended 500 mg PO BID 08/15/23 01/03/24 History release,12 hr sacubitril 24 mg-valsartan 26 mg 1 tab PO BID 08/15/23 01/03/24 History tablet (Entresto) topiramate 25 mg tablet (Topamax) 25 mg PO .QHS 08/15/23 01/03/24 History trazodone 50 mg tablet 25 mg PO BEDTIME 08/15/23 01/03/24 History dulaglutide 0.75 mg/0.5 mL 0.75 mg subcut QWEEK 11/04/23 01/03/24 History subcutaneous pen injector (Trulicity) aspirin 81 mg tablet,delayed 81 mg PO DAILY 11/09/23 01/03/24 History release cyanocobalamin (vitamin B-12) 1,000 mcg PO DAILY 11/09/23 01/03/24 History 1,000 mcg tablet furosemide 20 mg tablet 20 mg PO DAILY 12/11/23 01/03/24 History Allergies Allergy/AdvReac Type Severity Reaction Status Date / Time No Known Drug Allergies Allergy Verified 11/08/23 19:42 Exam Constitutional Vital Signs, click to edit/add: Last Vital Signs Temp 97.9 F 01/04/24 08:00 Pulse 70 01/04/24 08:00 Resp 18 01/04/24 08:00 BP 99/64 01/04/24 08:00 Pulse Ox 93 L 01/04/24 08:00 O2 Del Method Room Air 01/04/24 08:00 Documenting provider has reviewed patient's vital signs: yes Common normals: no apparent distress Chest Common normals: inspection of chest normal Respiratory Common normals: normal respiratory effort, no retractions and clear to auscultation bilaterally Cardio Common normals: regular rate and regular rhythm GI Common normals: Normal to inspection, nondistended, normoactive bowel sounds present and soft to palpation; tender (Tender in entire lower abdomen) Neuro Common normals: oriented x3 and CN's II-XII intact bilaterally Results Labs Labs: Short CBC 01/03/24 01/03/24 01/04/24 Range/Units 15:33 23:13 04:47 WBC 7.9 10.3 (4.0-11.0) 10^3/uL Hgb 6.9 L* 9.4 L 9.0 L (12.0-16.0) g/dL Hct 23.5 L* 31.1 L 29.7 L (36.0-48.0) % Plt Count 362 333 (150-450) 10^3/uL BMP 01/03/24 01/04/24 15:33 04:47 Sodium 136 140 Potassium 4.5 4.3 Chloride 103 107 Carbon Dioxide 26.4 24.9 BUN 20.0 H 22.0 H Creatinine 1.78 H 1.39 H Glucose 91 107 H Calcium 8.6 8.4 L Liver Function 01/03/24 01/04/24 Range/Units 15:33 04:47 Total Bilirubin 0.2 0.3 (0.2-1.0) mg/dL AST 13 L 12 L (15-37) U/L ALT 17 17 (14-59) U/L Alkaline Phosphatase 82 78 (46-116) U/L Albumin 2.9 L 2.7 L (3.4-5.0) g/dL Urine 01/03/24 Range/Units 06:50 Urine Color Red A (YELLOW) Urine Clarity Sl cloudy (CLEAR) Urine pH 7.0 (5.0-9.0) Ur Specific [place] 1.010 (1.005-1.025) Urine Protein 100 A (NEG/TRACE) mg/dL Urine Glucose (UA) Negative (NEGATIVE) mg/dL Assessment and Plan Assessment and Plan (1) Anemia: (2) Hydronephrosis: Qualifiers: Hydronephrosis type: with other ureteral stricture Qualified Code(s): N13.1 - Hydronephrosis with ureteral stricture, not elsewhere classified Plan Increasing abdominal pain with positive lactate and positive UA consistent with sepsis. Pain likely related to moderately severe on the right and moderate on the left hydronephrosis with acute UTI, cystitis, possible cystic mass as well. Abbasi catheter to be placed, keep patient on IV antibiotics, consult to urology for procedure tomorrow for stent placement. Number for 24 hours of IV antibiotics prior to stents being placed. Awaiting procedure tomorrow Acute blood loss anemia and iron deficiency anemia-better today. Came up 2-1/2 points only down slightly again this morning. Check occult blood patient is status posttransfusion of 2 units Acute renal failure secondary to the dehydration and complications with the hydronephrosis due to the cystic mass-baseline creatinine is 1.18, creatinine admission 1.78 which is 151.7 above baseline gentle IV hydration due to history of heart failure GE ERD-continue with home medications COPD-continue with aerosol treatments Generalized anxiety disorder-continue with home medications NIDDM-insulin sliding scale Admission status: With findings outlined as above, acute UTI needing IV anti biotics prior to stent placement, medically necessary treatment will span 2 midnights. Inpatient status. Patient awaiting stent placement tomorrow
[2024-01-04] MEDS: CIPROFLOXACIN IN 5 % DEXTROSE 400 MG/200 ML PIGGYBACK 200 MG IV ×2 (09:37→21:47)
[2024-01-04] MEDS: CHOLECALCIFEROL (VITAMIN D3) 125 MCG/5,000 UNIT TABLET PO (09:38)
[2024-01-04] MEDS: ACARBOSE 50 MG TABLET 100 MG PO ×2 (09:38→16:39)
[2024-01-04] MEDS: RANOLAZINE 500 MG TAB.ER.12H PO ×2 (09:38→21:47)
[2024-01-04] MEDS: SACUBITRIL/VALSARTAN 24 MG-26 MG TABLET 1 TAB PO ×2 (09:39→21:47)
[2024-01-04] MEDS: METFORMIN HCL 500 MG TABLET 1000 MG PO ×2 (09:39→21:47)
[2024-01-04] MEDS: MONTELUKAST SODIUM 10 MG TABLET PO (09:39)
[2024-01-04] MEDS: FOLIC ACID/VIT B6/VIT B12 TABLET 1 TAB PO (09:39)
--- NOTE | 2024-01-04 11:05 | SWNOTE1 ---
Pt is from [facility] [place]. MARCELO reached out to Tiara at [facility] to see what pt's baseline is, waiting to hear back. Updates were also sent to [facility]. Updates included face sheet, physician notes, nursing notes, labs, vitals, diagnostic imaging, consults, PT/OT, and med list.
[2024-01-04 11:14] LABS: Glucometer 126 mg/dL (74-106)
--- NOTE | 2024-01-04 11:57 | SWNOTE1 ---
SW met with pt to discuss dc needs. Pt's son, daughter in law, and grandson were sitting in room as well. Pt was sitting in chair eating her lunch. SW did ask permission to speak with her son and pt gave SW a thumbs up. Pt's son answered assessment questions. Pt has been at [facility] for nearly 10 years. They voiced they are happy with her are there and the plan is for pt to return. No further questions at this time. Important Message from Medicare reviewed and discussed with patient's son. Pt's son verbalized understanding and signed the form. Original given to patient's son and copy placed in patient?s chart. SW has sent updates to [facility] and will be asking if they will provide therapy and a walker for pt or if we need to set it up and get walker. SW waiting to hear back.
--- NOTE | 2024-01-04 14:27 | SWNOTE1 ---
MARCELO called and spoke to pt's son, Landen, in regards to a walker. Therapy is recommending walker for pt once she returns to [place]. Landen voiced that pt's PCP is working on getting her a wheelchair for at the [place]. MARCELO called over to Dr. Corado's office and they have submitted information for a wheelchair under pt's insurance. MARCELO called son Landen back and let him know that Medicare will only cover 1 DME equipment every 5 years. He is alright with leaving things the way they are. Pt's spoke up in background and her father does have one that pt can use. MARCELO updated Tiara at [facility] to let her know about walker/wheelchair situation. MARCELO also Tiara know that HH is recommended, Tiara sent email back that they will have [facility] therapy come over and work with her.
--- NOTE | 2024-01-04 15:55 | PC.NURSE ---
pt post void residual at this time was 81mL after voiding 200mL
[2024-01-04 16:04] LABS: Glucometer 81 mg/dL (74-106)
[2024-01-04] MEDS: ACETAMINOPHEN 500 MG TABLET 1000 MG PO (16:38)
--- NOTE | 2024-01-04 20:02 | PC.NURSE ---
blood in urine
[2024-01-04 20:08] LABS: Glucometer 97 mg/dL (74-106)
[2024-01-04] MEDS: CEFTRIAXONE 1,000 MG in 0.9 % SODIUM CHLORIDE 50 ML 100 MG IV (20:19)
--- NOTE | 2024-01-04 20:20 | PC.NURSE ---
pt got bladder scanned, 81mL residual
[2024-01-04] MEDS: TRAZODONE HCL 50 MG TABLET 25 MG PO (21:47)
[2024-01-04] MEDS: ATORVASTATIN CALCIUM 40 MG TABLET PO (21:47)
[2024-01-04] MEDS: TOPIRAMATE 25 MG TABLET PO (21:47)
[2024-01-04] MEDS: PANTOPRAZOLE SODIUM 40 MG VIAL IV (21:47)
[2024-01-05] VITALS (18 sets, daily range): BP systolic 103–128; BP diastolic 57–74; PULSE 62–82; TEMP 36.4–37.1; O2SAT 93–99
[2024-01-05] MEDS: IPRATROPIUM/ALBUTEROL SULFATE 3 ML AMPUL.NEB IH ×4 (04:28→22:49)
--- NOTE | 2024-01-05 04:29 | PC.NURSE ---
bloody urine with a few small clots
[2024-01-05 05:49] LABS: Basophils Percent Auto 0.2 % (0.2-2.0); Eosinophils Absolute Auto 0.1 10^3/uL (0.0-0.7); Eosinophils Percent Auto 2.5 % (0.9-7.0); Hematocrit 28.1 % (36.0-48.0); Hemoglobin 8.7 g/dL (12.0-16.0); Immature Granulocytes Abs Auto 0.03 10^3/uL (0.00-0.03); Immature Granulocytes Pct Auto 0.5 % (0.0-0.5); Lymphocytes Percent Auto 17.4 % (20.5-60.0); Mean Corpuscular Hemoglobin 27.5 pg (26.7-34.0); Mean Corpuscular Volume 88.9 fL (81.0-99.0); Mean Platelet Volume 8.5 fL (9.5-13.5); Monocytes Absolute Auto 0.7 10^3/uL (0.3-0.8); Monocytes Percent Auto 11.8 % (1.7-12.0); Neutrophils Absolute Auto 3.7 10^3/uL (1.4-6.5); Neutrophils Percent Auto 67.6 % (43.0-75.0); Platelet Count 318 10^3/uL (150-450); Red Blood Count 3.16 10^6/uL (4.20-5.40); Red Cell Distribution Width 16.9 % (11.0-15.0); White Blood Count 5.5 10^3/uL (4.0-11.0)
[2024-01-05] MEDS: LACTATED RINGER'S SOLUTION 1,000 ML 100 ML IV ×2 (06:16→21:40)
[2024-01-05 06:22] LABS: Alanine Aminotransferase 17 U/L (14-59); Albumin Level 2.7 g/dL (3.4-5.0); Alkaline Phosphatase 78 U/L (46-116); Anion Gap 14.3; Aspartate Amino Transferase 15 U/L (15-37); BUN Creatinine Ratio 13.4; Bilirubin Total 0.3 mg/dL (0.2-1.0); Calcium 8.6 mg/dL (8.5-10.1); Carbon Dioxide 22.6 mmol/L (21.0-32.0); Chloride 109 mmol/L (98-107); Estimated GFR (African America 55 (>=60); Estimated GFR (Non-African Ame 45 (>=60); Globulin 2.6 g/dL; Glucose 95 mg/dL (74-106); Potassium 3.9 mmol/L (3.5-5.1); Sodium 142 mmol/L (136-145); Total Protein 5.3 g/dL (6.4-8.2)
--- NOTE | 2024-01-05 08:26 | P.PN_ITS ---
Progress Note: Subjective Subjective Interval history: Not sure patient's affect is reading lips I did communicate with her via haroon on cell phone, no new complaints today, denies pain. Exam Constitutional Vital Signs, click to edit/add: Last Vital Signs Temp 97.6 F 01/05/24 08:00 Pulse 70 01/05/24 08:00 Resp 18 01/05/24 08:00 BP 128/74 01/05/24 08:00 Pulse Ox 95 01/05/24 08:00 O2 Del Method Room Air 01/05/24 08:00 Documenting provider has reviewed patient's vital signs: yes Common normals: no apparent distress Chest Common normals: inspection of chest normal Respiratory Common normals: normal respiratory effort, no retractions and clear to auscultation bilaterally Cardio Common normals: regular rate and regular rhythm GI Common normals: Normal to inspection, nondistended, normoactive bowel sounds present and soft to palpation; tender (Tender in entire lower abdomen) Neuro Common normals: oriented x3 and CN's II-XII intact bilaterally Progress Note: Objective Labs Labs: Short CBC 01/05/24 Range/Units 04:54 WBC 5.5 (4.0-11.0) 10^3/uL Hgb 8.7 L (12.0-16.0) g/dL Hct 28.1 L (36.0-48.0) % Plt Count 318 (150-450) 10^3/uL BMP 01/05/24 04:54 Sodium 142 Potassium 3.9 Chloride 109 H Carbon Dioxide 22.6 BUN 16.0 Creatinine 1.19 H Glucose 95 Calcium 8.6 Liver Function 01/05/24 Range/Units 04:54 Total Bilirubin 0.3 (0.2-1.0) mg/dL AST 15 (15-37) U/L ALT 17 (14-59) U/L Alkaline Phosphatase 78 (46-116) U/L Albumin 2.7 L (3.4-5.0) g/dL Progress Note: A&P Assessment and Plan (1) Anemia: (2) Hydronephrosis: Qualifiers: Hydronephrosis type: with other ureteral stricture Qualified Code(s): N13.1 - Hydronephrosis with ureteral stricture, not elsewhere classified Plan Increasing abdominal pain with positive lactate and positive UA consistent with sepsis. Pain likely related to moderately severe on the right and moderate on the left hydronephrosis with acute UTI, cystitis, possible cystic mass as well. Cystoscopy later today. Check on urine culture later today Acute blood loss anemia and iron deficiency anemia with positive occult blood- Down slightly today. Continue to monitor daily Acute renal failure secondary to the dehydration and complications with the hydronephrosis due to the cystic mass-baseline creatinine is 1.18, creatinine admission 1.78 which is 151.7 above baseline gentle IV hydration due to history of heart failure GERD-continue with home medications COPD-continue with aerosol treatments Generalized anxiety disorder-continue with home medications NIDDM-insulin sliding scale Admission status: With findings outlined as above, acute UTI needing IV antibiotics prior to stent placement, medically necessary treatment will span 2 midnights. Inpatient status. Patient awaiting stent placement tomorrow ?
[2024-01-05] MEDS: CIPROFLOXACIN IN 5 % DEXTROSE 400 MG/200 ML PIGGYBACK 200 MG IV ×2 (09:20→23:21)
--- NOTE | 2024-01-05 09:30 | REH.PTDLY ---
Physical Therapy Daily Note PT Daily Note/Assess Start: 01/05/24 09:26 Freq: Status: Active Protocol: Document 01/05/24 09:26 GEORGE (Rec: 01/05/24 09:30 [id number] Physical Therapy Daily Note/Assessment Time In 09:05 Time Out 09:20 Subjective Pt going to surgery at 11. Agreeable to therapy at this time. No current complaints, just a little tired. Therapeutic Exercise Minutes (minutes) 6 Therapeutic Exercise Units 0 Therapeutic Exercise Treatment Instructed in B LE seated exs 10x ea with demo with all exs for pt understanding. Exs included AP, LAQ, hip abd, and marching. Therapeutic Activity Minutes (minutes) 8 Therapeutic Activity Units 1 Bed Mobility Ability Minimum Assist Chair Transfer Ability Standby Assistance Therapeutic Activity Comments Pt requires 1 MORTGAGE COLLECTOR to transfer from supine to sit. Sit to stand transfers performed SBA. Gait training with RW 140 feet SBA with fatigue noted and mild SOB. Pt performs sit to stand transfers 5x in a row with B UE assist on arm rests to stand up. Total Therapy Minutes 14 Total Physical Therapy Units 1 Daily Note Summary Pt requires assist with supine to sit transfers today. SBA with all other transfers and gait. Progressed gait distance with fatigue noted.
--- NOTE | 2024-01-05 11:14 | CM.NOTE ---
Rounds made with Dr. Bills. Dr. Bills reviewed plan of care and planned OR today with Candis via text & speech. Candis verbalized understanding. No discharge planned today.
[2024-01-05 11:59] LABS: Glucometer 76 mg/dL (74-106)
[2024-01-05] MEDS: ACARBOSE 50 MG TABLET 100 MG PO (16:11)
[2024-01-05] MEDS: ACETAMINOPHEN 500 MG TABLET 1000 MG PO (16:12)
[2024-01-05] MEDS: SACUBITRIL/VALSARTAN 24 MG-26 MG TABLET 1 TAB PO (16:13)
[2024-01-05 17:01] LABS: Glucometer 114 mg/dL (74-106)
[2024-01-05 19:58] LABS: Glucometer 81 mg/dL (74-106)
[2024-01-05] MEDS: CEFTRIAXONE 1,000 MG in 0.9 % SODIUM CHLORIDE 50 ML 100 MG IV (21:42)
[2024-01-05] MEDS: PANTOPRAZOLE SODIUM 40 MG VIAL IV (21:59)
[2024-01-06] VITALS (9 sets, daily range): BP systolic 111–131; BP diastolic 72–84; PULSE 64–79; TEMP 36.6–36.7; O2SAT 93–99
[2024-01-06] MEDS: IPRATROPIUM/ALBUTEROL SULFATE 3 ML AMPUL.NEB IH ×2 (04:44→11:36)
[2024-01-06] MEDS: LACTATED RINGER'S SOLUTION 1,000 ML 100 ML IV (06:19)
[2024-01-06 07:42] LABS: Glucometer 124 mg/dL (74-106)
[2024-01-06] MEDS: ACETAMINOPHEN 500 MG TABLET 1000 MG PO (07:47)
[2024-01-06] MEDS: SACUBITRIL/VALSARTAN 24 MG-26 MG TABLET 1 TAB PO (10:12)
[2024-01-06] MEDS: CEFDINIR 300 MG CAPSULE 600 MG PO (10:12)
[2024-01-06] MEDS: METFORMIN HCL 500 MG TABLET 1000 MG PO (10:12)
[2024-01-06] MEDS: RANOLAZINE 500 MG TAB.ER.12H PO (10:12)
[2024-01-06] MEDS: FOLIC ACID/VIT B6/VIT B12 TABLET 1 TAB PO (10:12)
[2024-01-06] MEDS: CHOLECALCIFEROL (VITAMIN D3) 125 MCG/5,000 UNIT TABLET PO (10:12)
[2024-01-06] MEDS: MONTELUKAST SODIUM 10 MG TABLET PO (10:13)
[2024-01-06] MEDS: ACARBOSE 50 MG TABLET 100 MG PO (10:15)
--- NOTE | 2024-01-06 10:22 | P.DS_ITS ---
DS: Providers Provider Date of admission: 01/03/24 19:22 Primary care physician: YAYA LANGLEY MD Consults: 01/03/24 17:37 Consult to Pharmacy Routine Consulting Provider: Reason for consultation: Please Fults me when Med Rec is Updated Has provider been notified: No Occupational Therapy Eval and Treat Routine Reason for consultation: Only if needed for Rehab Has provider been notified: No Physical Therapy Eval and Treat Routine Reason for consultation: Eval and Treat Has provider been notified: No 01/04/24 09:08 Consult to Urology Routine Consulting Provider: Edmond Patterson Reason for consultation: Hydronephrosis Has provider been notified: Yes DS: Diagnosis Discharge Diagnosis (1) Anemia: (2) Hydronephrosis: Qualifiers: Hydronephrosis type: with other ureteral stricture Qualified Code(s): N13.1 - Hydronephrosis with ureteral stricture, not elsewhere classified Plan Increasing abdominal pain with positive lactate and positive UA consistent with sepsis. Pain likely related to moderately severe on the right and moderate on the left hydronephrosis with acute UTI, cystitis, possible cystic mass as well. Improving at the time of discharge Acute blood loss anemia and iron deficiency anemia with positive occult blood- Down slightly today. Stable at the time of discharge Acute renal failure secondary to the dehydration and complications with the hydronephrosis due to the cystic mass-baseline creatinine is 1.18, creatinine admission 1.78 which is 151.7 above baseline gentle IV hydration due to history of heart failure-improving at the time of discharge GERD-continue with home medications COPD-continue with aerosol treatments Generalized anxiety disorder-continue with home medications NIDDM-insulin sliding scale Admission status: With findings outlined as above, acute UTI needing IV antibiotics prior to stent placement, medically necessary treatment will span 2 midnights. Inpatient status. Patient awaiting stent placement tomorrow ? DS: Summary Hospital Course Hospital Course: Patient was admitted with increasing pain, dehydration, acute renal failure, secondary to a acute pyelonephritis with complicated by cystic mass creating bilateral hydronephrosis right with severe hydronephrosis left with moderate hydronephrosis. Patient was placed on antibiotics. On day 3 of the hospitalization and patient underwent a cystoscopy to try to place stents. Unable to place the stents secondary to the narrowness of the opening. She does have flow through both ureters however. Patient was observed overnight. No complications overnight. At this point she can safely be returned back to her assisted living situation. She will need if family wishes to pursue, bilateral nephrostomy tubes as prophylaxis. As her cystic mass is only a likely to get worse. Medications see list. Follow-up with PCP within the next week. Status at Discharge Overall status at discharge: patient is back to baseline Time Spent with Patient Time attestation: Total time spent providing and/or coordinating discharge services: Time spent: greater than 30 minutes Exam Constitutional Vital Signs, click to edit/add: Last Vital Signs Temp 97.9 F 01/06/24 07:49 Pulse 67 01/06/24 08:00 Resp 18 01/06/24 07:49 BP 131/84 01/06/24 07:49 Pulse Ox 96 01/06/24 07:49 O2 Del Method Room Air 01/06/24 07:49 Documenting provider has reviewed patient's vital signs: yes Common normals: no apparent distress Chest Common normals: inspection of chest normal Respiratory Common normals: normal respiratory effort, no retractions and clear to auscultation bilaterally Cardio Common normals: regular rate and regular rhythm GI Common normals: Normal to inspection, nondistended, normoactive bowel sounds present and soft to palpation; tender (Tender in entire lower abdomen) Neuro Common normals: oriented x3 and CN's II-XII intact bilaterally DS: Data Data Completed and Pending Labs on day of discharge: Labs from last 24 hours 01/06/24 01/05/24 01/05/24 07:41 19:52 17:00 POC Glucose 124 H 81 114 H 01/05/24 11:58 POC Glucose 76 Discharge Plan Discharge Disposition: Home, Self-Care Condition: Fair Discharge Medications: New cefdinir 300 mg Capsule 600 mg PO QD Qty: 20 0RF Continued Trulicity 0.75 mg/0.5 mL pen injector 0.75 mg SUBCUT QWEEK cyanocobalamin (vitamin B-12) 1,000 mcg tablet 1,000 mcg PO DAILY aspirin 81 mg tablet,delayed release (DR/EC) 81 mg PO DAILY furosemide 20 mg tablet 20 mg PO DAILY acarbose 100 mg tablet 100 mg PO BIDWM acetaminophen 500 mg capsule 1,000 mg PO .QHS atorvastatin 40 mg tablet 40 mg PO BEDTIME Caplyta 42 mg capsule 42 mg PO .QHS Entresto 24-26 mg tablet 1 tab PO BID famotidine 40 mg tablet 40 mg PO .QHS ferrous sulfate 325 mg (65 mg iron) tablet,delayed release (DR/EC) 325 mg PO DAILY metformin 1,000 mg tablet 1,000 mg PO BID montelukast 10 mg tablet 10 mg PO DAILY ranolazine 500 mg tablet extended release 12 hr 500 mg PO BID topiramate [Topamax] 25 mg tablet 25 mg PO .QHS trazodone 50 mg tablet 25 mg PO BEDTIME cholecalciferol (vitamin D3) 125 mcg (5,000 unit) capsule 125 mcg PO DAILY albuterol sulfate [ProAir HFA] 90 mcg/actuation HFA aerosol inhaler 2 inh inhalation Q6H PRN (Reason: shortness of breath or wheezing) fluticasone propionate [Allergy Relief (fluticasone)] 50 mcg/actuation spray,suspension 2 spray intranasal DAILY PRN (Reason: allergy symptoms) Rx Instructions: administer into each nostril ipratropium bromide 0.02 % solution 2.5 ml inhalation Q4H PRN (Reason: shortness of breath or wheezing) magnesium hydroxide [Milk of Magnesia] 400 mg/5 mL suspension 2,400 mg PO DAILY PRN (Reason: constipation) nitroglycerin 400 mcg/spray spray,non-aerosol 1 spray sublingual Q5M PRN (Reason: chest pain) Rx Instructions: do not exceed 3 doses per episode 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 Langley's office to schedule a hospital stay follow up appt. for 5-7 days following discharge. [phone]
--- NOTE | 2024-01-06 10:40 | PC.NURSE ---
01/06/2024 ([id number]) Dr. Patterson at bedside and talks with patient and patient's son in length about health status of patient. Patient and son verbalize a understanding. Surgery will be cancelled.
[2024-01-06 11:28] LABS: Glucometer 110 mg/dL (74-106)
--- NOTE | 2024-01-06 12:04 | CM.NOTE ---
Rounds made with Dr. Bills. Dr. Bills reviewed plan of care with Candis via text. Candis verbalized understanding. Plan is for patient to be discharged today back to Assisted Living
--- NOTE | 2024-01-06 12:06 | SWNOTE1 ---
[facility] stopped in and they stated there office told them to stop in and speak with the son at 10:30 in regards to Palliative care, SW was not aware of this, but son was. Pt is ready for discharge today back to [facility] today. Transport was initially set up with trips for 3:30, but son spoke to [facility] and they are able to transport. MARCELO called Ruddy at [facility] and they can be here at 1:00 to transport. MARCELO notified nursing and pt's son of time. MARCELO faxed over [facility] med rec and took packet to the floor. Pt is returning to [facility] [place].
--- NOTE | 2024-01-06 13:29 | PM.CN ---
Consult Note: [facility] Data of Consult Consult date: 01/05/24 Requesting Physician: Kendall Bills MD Primary Care Provider: YAYA LANGLEY MD Consult Narrative Reason for consult: Hydronephrosis and bladder mass Narrative: This lady has high-grade cervical cancer diagnosed Recently at [place].At the time of the [facility] operation, cystoscopy was done. The op note suggests that the entire mucosa of the bladder looked normal. There were ureteral jets noted bilaterally. There was compression of the posterior wall of the bladder over the area of the trigone from mass effect below presumedly the cervix.She had known hydronephrosis then but since urine was effluxing from both ureters no stents were placed.She has been having vaginal bleeding ever since her diagnosis. She has required blood transfusions. She came to the emergency room because of vague abdominal pain and anemia. Her hemoglobin was 6.9 on admission. Her creatinine was 1.7. CAT scan was done which revealed moderate right hydro ureteral nephrosis and moderate left hydronephrosis.Thickening of the bladder wall at the level of the trigone was noted and suspicious for neoplastic growth.With conservative management and hydration, her creatinine came down to 1.3. Her to her baseline.Urology was consulted for the above reasons. cc:: CC: Kendall Bills MD Review of Systems ROS Status of ROS unobtainable due to mental status [facility] Medical History Cardiac arrhythmia ?I49.9 - Cardiac arrhythmia, unspecified (ICD-10) Syncope ?R55 - Syncope and collapse (ICD-10) Anemia ?D64.9 - Anemia, unspecified (ICD-10) Metastasis from cervical cancer ?C79.9 - Secondary malignant neoplasm of unspecified site (ICD-10) ?C53.9 - Malignant neoplasm of cervix uteri, unspecified (ICD-10) Cervical cancer, FIGO stage IV ?C53.9 - Malignant neoplasm of cervix uteri, unspecified (ICD-10) Postmenopausal bleeding ?N95.0 - Postmenopausal bleeding (ICD-10) CAD (coronary artery disease) ?I25.10 - Atherosclerotic heart disease of [place] coronary artery without angina pectoris (ICD-10) (HFpEF) heart failure with preserved ejection fraction ?I50.30 - Unspecified diastolic (congestive) heart failure (ICD-10) Heart palpitations ?R00.2 - Palpitations (ICD-10) Diastolic dysfunction ?I51.89 - Other ill-defined heart diseases (ICD-10) Lower extremity edema ?R60.0 - Localized edema (ICD-10) Atypical chest pain ?R07.89 - Other chest pain (ICD-10) Dyspnea ?R06.00 - Dyspnea, unspecified (ICD-10) Poor speech ?R47.9 - Unspecified speech disturbances (ICD-10) High cholesterol ?E78.00 - Pure hypercholesterolemia, unspecified (ICD-10) Diabetes ?E11.9 - Type 2 diabetes mellitus without complications (ICD-10) Schizophrenia ?F20.9 - Schizophrenia, unspecified (ICD-10) COPD (chronic obstructive pulmonary disease) ?J44.9 - Chronic obstructive pulmonary disease, unspecified (ICD-10) Psychological disorder ?F99 - Mental disorder, not otherwise specified (ICD-10) Deaf ?H91.90 - Unspecified hearing loss, unspecified ear (ICD-10) Hypertension ?I10 - Essential (primary) hypertension (ICD-10) Incomplete bladder emptying ?R33.9 - Retention of urine, unspecified (ICD-10) Asthma ?J45.909 - Unspecified asthma, uncomplicated (ICD-10) Hydroureter ?N13.4 - Hydroureter (ICD-10) 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 - Other and unspecified doubling of uterus (ICD-10) Thickened endometrium ?R93.89 - Abnormal findings on diagnostic imaging of other specified body structures (ICD-10) 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 ?R87.613 - High grade squamous intraepithelial lesion on cytologic smear of cervix (HGSIL) (ICD-10) Surgical History History of appendectomy ?Z90.49 - Acquired absence of other specified parts of digestive tract (ICD-10) H/O section ?Z98.891 - History of uterine scar from previous surgery (ICD-10) Family History Father Family history of coronary artery disease Family history of myocardial infarction Mother Family history of coronary artery disease Family history of diabetes mellitus Family history of myocardial infarction Other Family history of hypertension Family history of stroke Kidney disease Social History Within the past year, how often did you have a drink containing alcohol: never Score interpretation: A score less than 3 is consistent with normal alcohol consumption. 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 Known occupational exposures/hazards: No Highest level of school completed/degree received: 12th grade, no diploma Are you now , , , , never or living with a partner: In a typical week, how many times do you talk on the telephone with family, friends, or neighbors: 3 or more times per week How often do you get together with friends or relatives: 3 or more times per week Gender Identity: female Meds Home Medications and Allergies Home Medications ?Medication ?Instructions ?Recorded ?Confirmed ?Type acarbose 100 mg tablet 100 mg PO BIDWM 08/15/23 01/03/24 History acetaminophen 500 mg capsule 1,000 mg PO .QHS 08/15/23 01/03/24 History albuterol sulfate 90 mcg/actuation 2 inh inhalation Q6H PRN shortness 08/15/23 01/03/24 History aerosol inhaler (ProAir HFA) of breath or wheezing atorvastatin 40 mg tablet 40 mg PO BEDTIME 08/15/23 01/03/24 History cholecalciferol (vitamin D3) 125 125 mcg PO DAILY 08/15/23 01/03/24 History mcg (5,000 unit) capsule famotidine 40 mg tablet 40 mg PO .QHS 08/15/23 01/03/24 History ferrous sulfate 325 mg (65 mg 325 mg PO DAILY 08/15/23 01/03/24 History iron) tablet,delayed release fluticasone propionate 50 2 spray intranasal DAILY PRN 08/15/23 01/03/24 History mcg/actuation nasal allergy symptoms spray,suspension (Allergy Relief (fluticasone)) ipratropium bromide 0.02 % 2.5 ml inhalation Q4H PRN 08/15/23 01/03/24 History solution for inhalation shortness of breath or wheezing lumateperone 42 mg capsule 42 mg PO .QHS 08/15/23 01/03/24 History (Caplyta) magnesium hydroxide 400 mg/5 mL 2,400 mg PO DAILY PRN constipation 08/15/23 01/03/24 History oral suspension (Milk of Magnesia) metformin 1,000 mg tablet 1,000 mg PO BID 08/15/23 01/03/24 History montelukast 10 mg tablet 10 mg PO DAILY 08/15/23 01/03/24 History nitroglycerin 400 mcg/spray 1 spray sublingual Q5M PRN chest 08/15/23 01/03/24 History translingual pain ranolazine 500 mg tablet,extended 500 mg PO BID 08/15/23 01/03/24 History release,12 hr sacubitril 24 mg-valsartan 26 mg 1 tab PO BID 08/15/23 01/03/24 History tablet (Entresto) topiramate 25 mg tablet (Topamax) 25 mg PO .QHS 08/15/23 01/03/24 History trazodone 50 mg tablet 25 mg PO BEDTIME 08/15/23 01/03/24 History dulaglutide 0.75 mg/0.5 mL 0.75 mg subcut QWEEK 11/04/23 01/03/24 History subcutaneous pen injector (Trulicity) aspirin 81 mg tablet,delayed 81 mg PO DAILY 11/09/23 01/03/24 History release cyanocobalamin (vitamin B-12) 1,000 mcg PO DAILY 11/09/23 01/03/24 History 1,000 mcg tablet furosemide 20 mg tablet 20 mg PO DAILY 12/11/23 01/03/24 History cefdinir 300 mg capsule 600 mg (2 x 300 mg) PO QD #20 caps 01/06/24 Rx Allergies Allergy/AdvReac Type Severity Reaction Status Date / Time No Known Drug Allergies Allergy Verified 11/08/23 19:42 Exam Narrative Exam Narrative: She is resting comfortably in the bed. She is in no acute distress.Her abdomen is soft and without focal tenderness.She seems to be tender everywhere anteriorly and over her suprapubic region. Constitutional Vital Signs, click to edit/add: Last Vital Signs Temp 97.9 F 01/06/24 07:49 Pulse 67 01/06/24 08:00 Resp 18 01/06/24 07:49 BP 131/84 01/06/24 07:49 Pulse Ox 99 01/06/24 11:39 O2 Del Method Room Air 06/28/24 11:39 Assessment and Plan Assessment and Plan (1) Hydroureteronephrosis: Assessment and Plan: This lady has right-sided hydroureteronephrosis. This likely is a chronic entity. She is getting urine into the bladder evidenced by cystoscopy and ureteral jet identification while in [place] several weeks ago. Although this may contribute to her overall pain portfolio, I do not believe this is the major cause since most of her pain is diffuse within the abdomen anteriorly.At this point, I would not recommend placing stents or placing a percutaneous nephrostomy tube since her kidney function is just about normal and she is not getting recurrent urinary infections or specific pain from her hydroureteronephrosis. If there ever comes a time when her cancer advances and her ureters are totally obstructed I would then suggest that she simply get percutaneous nephrostomy tubes. These would be placed by interventional radiology under local. They would need to be changed every 2 to 3 months but it would keep her out of the operating room and she would not have to undergo general anesthesia.She is a very high risk candidate for general anesthesia due to her multiple medical comorbid illnesses.I had a long discussion with her son about these issues and he seems to understand and agree with the plan. No urologic procedure under general anesthesia will be done at this facility. If anything needs to be done, it should be done at a tertiary center. (2) Hydronephrosis: Assessment and Plan: I believe her Hydronephrosis is chronic. It is most likely from her cervical cancer ever so slightly compressing up on the posterior wall of the bladder and minimally narrowing the diameter of the ureters as they enter the bladder.As her cervical cancer progresses these may become totally obstructed at some point. Over 30 minutes of clinical time was spent reviewing her CT scan and her chart, talking with her son and examining the patient. Thank you for letting me take part in her care. Qualifiers: Hydronephrosis type: with other ureteral stricture Qualified Code(s): N13.1 - Hydronephrosis with ureteral stricture, not elsewhere classified
--- NOTE | 2024-01-09 12:24 | CM.DCFOLLOWU ---
Patient is from [facility].
== END 2024-01-06 13:02 | disposition home or self-care (01) | DRG 872 ==
LOC: ER 17:24 → MS 19:27
PROVIDERS: Admitting Provider Family Medicine; Emergency Provider Emergency Medicine; PCP Internal Medicine; Visit Provider Family Medicine
DX: A41.9 Sepsis, unspecified organism (principal); D62 Acute posthemorrhagic anemia; N17.9 Acute kidney failure, unspecified; N13.6 Pyonephrosis; D50.9 Iron deficiency anemia, unspecified; J44.9 Chronic obstructive pulmonary disease, unspecified; K21.9 Gastro-esophageal reflux disease without esophagitis; F41.1 Generalized anxiety disorder; E86.0 Dehydration; E11.9 Type 2 diabetes mellitus without complications; C53.9 Malignant neoplasm of cervix uteri, unspecified; E78.00 Pure hypercholesterolemia, unspecified; F20.9 Schizophrenia, unspecified; H91.93 Unspecified hearing loss, bilateral; Z66 Do not resuscitate; Z79.899 Other long term (current) drug therapy; Z79.84 Long term (current) use of oral hypoglycemic drugs; Z79.82 Long term (current) use of aspirin; Z90.49 Acquired absence of other specified parts of digestive tract; Z98.891 History of uterine scar from previous surgery
CPT/HCPCS: 36415; 36430; 74176; 80053; 81001; 82948; 83605; 83735; 85014; 85018; 85025; 86850; 86900; 86901; 87086; 94640; 94761; 96365; 96366; 96367; 96368; 96375; 96376; 97162; 97165; 97530; 99285; G0328; J0696; J0744; J2405; P9016

== ENCOUNTER 2024-01-16 18:42 | Emergency (ER) | payer MEDICARE, MEDICAID, SELFPAY ==
[2024-01-16 18:47] VITALS: BP 148/87; PULSE 79; TEMP 36.9; O2SAT 97
--- OUTSIDE RECORDS SUMMARY | 2024-01-16 18:51 | XMS_ITS | CCD ---
Author Organization [facility] ion [facility] Care Team Providers Care Mold Mechanic Name Role Phone MARKER, DR SALINAS Consulting [...] Attending UnavailANDER Lance JR Primary Care Physician [phone] KOBE CRESPO Attending Unavailable KOBE CRESPO Attending [...] COBURN Attending Unavailable GALDINO, EL Referring Unavailable GALDINO, EL Referring Unavailable Cherie Kobe Admitting Unavailable Kobe Crespo Attending Unavailable GUERDA AGUILAR Attending Unavailable GUERDA AGUILAR Attending Unavailable REBECCA MILES Attending Unavailable GUERDA AGUILAR Attending Unavailable GUERDA AGUILAR Attending Unavailable Pamela Benson Attending Unavailable Pamela Benson Attending Unavailable oKbe CRESPO Referring Unavailable Pamela Benson Attending Unavailable Pamela Benson Admitting Unavailable Edmond KUHN Attending Unavailable Edmond KUHN Referring Unavailable Edmond KUHN Attending Unavailable Medications Current Medications Medication Drug [...] 8 hours as needed. 0 05/20/2023 Active [id number] 200 actuat albuterol 0.09 mg/actuat metered dose [...] (ALISSA NASE) 50 mcg/actuation nasal spray 1 Mooers once daily. 0 Active furosemide 20 mg [...] Range Facility Consultation Noteon 12-27-19 Consultation Note [id number]#1.00TI FF Normal [facility] Pathology Noteon 12-27-2023 Pathology Note [id number]#1.00T IFF Normal [facility] RAD - Nuclear Medicine Repor ton 12-27-2023 RAD - Nuclear Medicine Report [id number]#1.00T IFF Normal [facility] Office Visiton 12-16-2023 Follow-up visit [id number] Kelby Johnson 1955 F Date Provider Department Center 12/16/2023 [id number] AGUILAR CARD [facility] Family History Problem Relation Age of Onset Coronary artery disease Mother Cancer Father Diabetes Father Family Status - Relation Status Age at Mother Father Level of Service:53181 [place] OFFICE/OUTPATIENT ESTABLISHED LOW MDM 20 MIN Normal [facility] Operative Reporton Operative Report [id number]#1.00T IFF Normal [facility] Armani 12-08-2023 CNPN Telephone (RADTSA) CANDIS JOHNSON ([id number]) 1955 F DEF Date Time Provider Department [...] send PET images and report to Dr. Glaeson and Dr. Avilez. Mecca Boyle, PARAG Thayer, Yumiko 12/08/2023 11:19 AM Signed Cancelled appointment. Skylar Harris 12/08/2023 1:10 PM Signed Report faxed to Dr. Gleason and Dr. Avilez. Images pushed to [facility]. Allergies As of Date: 12/08/2023 (No [...] fluticasone (FLONASE) 50 mcg/actuation nasal spray 1 Mooers once daily. - magnesium hydroxide (MOM) 400 [...] Encounter Status:Closed by MECCA BOYLE on 12/08/23 [facility] CNOVon 12-07-2023 CNOV Office Visit (RADTMN ) CANDIS JOHNSON ([id number]) 1955 F DEF Date Time Provider Department 12/07/23 10:00 AM LAISHA COBURN During your visit today, we recorded the [...] when she presented to Dr. Crespo in [place] from her nursing facility with symptoms of [...] status: Post-menopausa (more content not included)... Normal [facility] Consultation Noteon 12-02-19 Consultation Note [id number]#1.00TI FF Normal [facility] NM PET/CT SKULL-THIGH INITon 12-02-2023 NM PET/CT SKULL-THIGH [...] * Radiopharmaceutical Dose: 9.7 mCi * Radiopharmaceutical: K60-[id number] (FDG) COMPARISON: No previous FDG PET/CT available CORRELATION: [facility] MRI pelvis 11/10/2023; [facility] CT abdomen/pelvis 06/06/2023 RESULT: REFERENCES: SUV reference values: * Blood pool (descending aorta) activity: SUVmax 3.0 * Background liver activity: SUVmax 3.3 Water Resources Program Director (topogram) images: No additional findings. Notes and [...] Dec 08 2023 10:26A Dictated by: AMI BIU, This examination was interpreted and the report reviewed and electronically signed by: (more content not included)... Normal [facility] Orders Onlyon 12-01-2023 Orders Only [id number] Kelby Johnson 1955 F Date Provider Department Center 12/01/2023 [id number] Gail Barreto Family History Problem Relation Age of Onset Coronary artery disease Mother Cancer Father Diabetes Father Family Status - Relation Status Age at Mother Father Normal [facility] CNOVon 11-28-2023 CNOV Office Visit (RADTSA ) ARICANDIS Franklin Alisa ([id number]) 1955 F DEF Date Time Provider Department [...] the Department of Radiation Oncology at the [facility] with El Ahmadi MD. She was accompanied today by her son. She is mostly deaf and much of the conversation was conducted with the son who is also the medical power of employment law attorney. Final recommendations will be communicated back to the requesting physician by way of the shared medical record, or letter to requesting physician via US mail. HISTORY OF PRESENT ILLNESS: Ms. Johnson is a 68-year old deaf woman residing in an assisted living facility in [place], [place] and her son is her medical power of employment law attorney. Per note from Dr. Gleason on 11/24/2023: [...] the final pathology as below Path Number: [id number] -- Diagnosis -- A. LEFT CERVIX, BIOPSY: [...] IIIb cervical cancer and was evaluated by [facility] and due to the fact fixed [...] lives in an assisted living facility in [place], [place]. She had a legal guardian in the past and her son is n (more content not included)... Normal [facility] Armani 11-25-2023 RADHIKAN Telephone (RADTSA) CANDIS JOHNSON ([id number]) 1955 F DEF Date Time Provider Department 11/25/23 EL AHMADI During your visit today, we recorded the following information about you: Mecca Boyle LPN 11/25/2023 2:29 PM Signed I called and spoke to Angelina at [facility] and she said Candis does very [...] language. She has been a resident at [facility] assisted living for 4-5 years and does very well there per Landen. I notified Landen that Dr. Ahmadi is ordering a PET scan, rad onc consult at [facility] and trying to move up Candis's consult with Dr. Mckinley goran. Landen states between himself and [facility] transportation should not be an issue. Yumiko: 1. Please schedule PET scan goran. 2. Rad Onc consult at [facility] 3. Move up Dr. Mckinley's consult goran. Dr. Mckinley are you or your staff able to assist in rescheduling Ms. Johnson's consult with you goran per Dr. Ahmadi? She is currently scheduled for consult on 12/28/23. Thanks PARAG Aguilar Tiffany 11/28/2023 7:[address] [facility] RAD onc consult Nathalie Saleh RN 11/28/2023 7:[address] Ahmadi- order pending your approval. PARAG Alves Saju, MD 11/28/2023 10:28 AM Signed Rad onc consult order signed for [facility] referral (brachytherapy). Can cancel consult request with Dr. Mckinley - she is established with [facility] out of [place] already (Dr. Avilez). Will need repeat MRI [...] patients son, he would like scheudled at [facility] since its easiest for nusing home I sent over order will check on later, thanks Yumiko Mareie 12/08/2023 12:08 PM Signed MRI not needed per chat Allergies As of Date: 11/25/2023 (Not on File) Date Reviewed: Never Reviewed Reason for Visit: Orders [681] Patient Update [1234] Primary Visit Diagnosis: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) [C53.8] Order(s):RAD/ONC CONSULT [9037] Order #: [id number]: 1 FUTURE MRI FEMALE PELVIS WO/W IVCON [6161710] Order #: [id number] FUTURE [] iv contrast (will be provided [...] fluticasone (FLONASE) 50 mcg/actuation nasal spray 1 Mooers once daily. - mag (more content not included)... Normal [facility] OUTSIDE SURG PATH SLIDE REVI EWon 11-25-2023 CASE REPORT Normal [facility] Comment on above: Order Comment: Speci men Type: FORMALIN-FIXED PARAFFIN-EMBEDDED TISSUE SPECIMEN Ordering Facility: [facility] Review Address: , , Result Comment: Surg [facility] Pathology Report Case: [id number] Authorizing Provider: Mariam Mckinley MD Collected: 11/25/2023 02:11 PM Ordering Location: [facility] Received: 11/25/2023 02:12 PM [facility] Pathologist: Ernestina Parada MD Specimen: Slide(s), 5 SLIDES [id number] Performed By: #### L [id number] #### [facility] CLIA [id number] [address] [place] [address] [place] DIAGNOSIS COMMENT 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 Normal [facility] Comment on above: Order Comment: Speci men Type: FORMALIN-FIXED PARAFFIN-EMBEDDED TISSUE SPECIMEN Ordering Facility: [facility] Review Address: , , Performed By: #### L [id number] #### [facility] CLIA [id number] [address] [place] [address] FINAL DIAGNOSIS Normal [facility] Comment on above: Order Comment: Speci men Type: FORMALIN-FIXED PARAFFIN-EMBEDDED TISSUE SPECIMEN Ordering Facility: [facility] Review Address: , , Result Comment: Outs miguel angel case from [place], [place] (VS [id number], collected 11/11/2023) A. Left cervix, biopsy: - Invasive squamous cell carcinoma, see comment. B. 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 Performed By: #### L [id number] #### [facility] CLIA [id number] [address] [place] [address] FINAL PERFORMING LAB Normal [facility] Comment on above: Order Comment: Speci men Type: FORMALIN-FIXED PARAFFIN-EMBEDDED TISSUE SPECIMEN Ordering Facility: [facility] Review Address: , , Result Comment: Diag nostic interpretation performed at [facility], [address] [place] [address] CLIA# [id number] Adult Parole Officer: Navdeep Pickering M.D. Performed By: #### L [id number] #### [facility] CLIA [id number] [address] [place] [address] OF [facility] Office Visiton 11-21-2023 Follow-up visit [id number] Kelby Johnson A 1955 F Date Provider Department Center 11/21/2023 GUERDA RYDER Family History Problem Relation Age of Onset Coronary artery disease Mother Cancer Father Diabetes Father Family Status - Relation Status Age at Mother Father Level of Service:17467 [place] OFFICE/OUTPATIENT ESTABLISHED LOW MDM 20 MIN Normal [facility] Orders Onlyon 11-21-2023 Orders Only [id number] Kelby Johnson 1955 F Date Provider Department Center 11/21/2023 MARV CASAREZ CARD [facility] Family History Problem Relation Age of Onset Coronary artery disease Mother Cancer Father Diabetes Father Family Status - Relation Status Age at Mother Father Normal [facility] Consultation Noteon 11-14-19 Consultation Note [id number]#1.00T IFF Normal [facility] Glucose,Whole Bloodon 2023 Glucose [Mass/Vol] 124 mg/dL High 65-105 [facility] Glucose [Mass/Vol] 87 mg/dL Normal 65-105 [facility] POC Glucose Fingerstickon Glucose [Mass/Vol] 124 mg/dL High 65 - 105 mg/dL [facility] Interpretation and review of laboratory results Abnormal [facility] Glucose [Mass/Vol] 87 mg/dL 65 - 105 mg/dL [facility] CBC with Auto Differentialon 11-11-2023 Basophils (Bld) [#/Vol] 0.03 10*3/uL [facility] Basophils/100 WBC (Bld) 0 % 0 - 2 % [facility] Eosinophils (Bld) [#/Vol] 0.31 10*3/uL [facility] Eosinophils/100 WBC (Bld) 5 % High 1 - 4 % [facility] Erythrocyte distribution width (RBC) [Ratio] 16.1 % High 11.8 - 14.4 % [facility] Hematocrit (Bld) [Volume fraction] 31.6 % Low 36.3 - 47.1 % [facility] Hemoglobin (Bld) [Mass/Vol] 9.0 g/dL Low 11.9 - 15.1 g/dL [facility] Immature granulocytes (Bld) [#/Vol] 0.04 10*3/uL [facility] Immature granulocytes/100 WBC (Bld) 1 % High 0 [facility] Interpretation and review of laboratory results Abnormal [facility] Lymphocytes/100 WBC (Bld) 18 % Low 24 - 43 % [facility] Lymphocytes/100 WBC (Bld) 1.19 % [facility] MCH (RBC) [Entitic mass] 27.4 pg 25.2 - 33.5 pg [facility] MCHC (RBC) [Mass/Vol] 28.5 g/dL 28.4 - 34.8 g/dL [facility] MCV (RBC) [Entitic vol] 96.0 fL 82.6 - 102.9 fL [facility] Monocytes/100 WBC (Bld) 14 % High 3 - 12 % [facility] Monocytes/100 WBC (Bld) 0.91 % [facility] Neutrophils/100 WBC (Bld) 62 % 36 - 65 % [facility] Nucleated RBC/100 WBC (Bld) [Ratio] 0.0 % 0.0 per 100 WBC [facility] Platelet mean volume (Bld) [Entitic vol] 8.6 fL 8.1 - 13.5 fL [facility] Platelets (Bld) [#/Vol] 413 10*3/uL [facility] RBC (Bld) [#/Vol] 3.29 10*6/uL Low 3.95 - 5.1 1 m/uL [facility] RBC (Bld) [#/Vol] ANISOCYTOSIS PRESENT [facility] Segmented neutrophils/100 WBC (Bld) 4.27 % [facility] WBC other (Bld) [#/Vol] 6.8 [facility] CBC with Diffon 11-11-2023 Abs. Basophil 0.03 k/uL Normal 0.00-0.20 [facility] Comment on above: Performed By: #### C P, CDP #### [employer] [address] [place] [address] Wash Operator: Guillaume Roman MD Abs.Imm.Granulocyte 0.04 k/uL Normal 0.00-0.30 [facility] Comment on above: Performed By: #### C P, CDP #### [facility] [address] [place], [place] [address] Wash Operator: Guillaume Roman MD Abs.Neutrophil (Seg) 4.27 k/uL Normal 1.50-8.10 [facility] Comment on above: Performed By: #### C P, CDP #### [address] [address] Wash Operator: Guillaume Roman MD Basophils/100 WBC (Bld) 0 % Normal 0-2 [facility] Comment on above: Performed By: #### C P, CDP #### [address] [address] Wash Operator: Guillaume Roman MD Eosinophils (Bld) [#/Vol] 0.31 10*3/uL Normal 0.00-0.44 [facility] Comment on above: Performed By: #### C P, CDP #### [place] [address] Wash Operator: Guillaume Roman MD Eosinophils/100 WBC (Bld) 5 % High 1-4 [facility] Comment on above: Performed By: #### C P, CDP #### [address] [address] Wash Operator: Guillaume Roman MD Erythrocyte distribution width (RBC) [Ratio] 16.1 % High 11.8-14.4 [facility] Comment on above: Performed By: #### C P, CDP #### [address] [address] Wash Operator: Guillaume Roman MD Hematocrit (Bld) [Volume fraction] 31.6 % Low 36.3-47.1 [facility] Comment on above: Performed By: #### C P, CDP #### [address] [address] Wash Operator: Guillaume Roman MD Hemoglobin (Bld) [Mass/Vol] 9.0 g/dL Low 11.9-15.1 [facility] Comment on above: Performed By: #### C P, CDP #### [address] [address] Wash Operator: Guillaume Roman MD Immature granulocytes/100 WBC (Bld) 1 % High 0 [facility] Comment on above: Performed By: #### C P, CDP #### [address] [address] Wash Operator: Guillaume Roman MD Lymphocytes (Bld) [#/Vol] 1.19 10*3/uL Normal 1.10-3.70 [facility] Comment on above: Performed By: #### C P, CDP #### [address] [address] Wash Operator: Guillaume Roman MD Lymphocytes/100 WBC (Bld) 18 % Low 24-43 [facility] Comment on above: Performed By: #### C P, CDP #### [address] [address] Wash Operator: Guillaume Roman MD MCH (RBC) [Entitic mass] 27.4 pg Normal 25.2-33.5 [facility] Comment on above: Performed By: #### C P, CDP #### [place] [address] Wash Operator: Guillaume Roman MD MCHC (RBC) [Mass/Vol] 28.5 g/dL Normal 28.4-34.8 [facility] Comment on above: Performed By: #### C P, CDP #### [address] [address] Wash Operator: Guillaume Roman MD MCV (RBC) [Entitic vol] 96.0 fL Normal 82.6-102.9 [facility] Comment on above: Performed By: #### C P, CDP #### [address] [address] Wash Operator: Guillaume Roman MD Monocytes (Bld) [#/Vol] 0.91 10*3/uL Normal 0.10-1.20 [facility] Comment on above: Performed By: #### C P, CDP #### [address] [address] Wash Operator: Guillaume Roman MD Monocytes/100 WBC (Bld) 14 % High 3-12 [facility] Comment on above: Performed By: #### C P, CDP #### [address] [address] Wash Operator: Guillaume Roman MD Neutrophil (Seg) 62 % Normal 36-65 [facility] Comment on above: Performed By: #### C P, CDP #### [address] [address] Wash Operator: Guillaume Roman MD NRBC Automated 0.0 per 100 WBC Normal 0.0 [facility] Comment on above: Performed By: #### C P, CDP #### [address] [address] Wash Operator: Guillaume Roman MD Platelet mean volume (Bld) [Entitic vol] 8.6 fL Normal 8.1-13.5 [facility] Comment on above: Performed By: #### C P, CDP #### [address] [address] Wash Operator: Guillaume Roman MD Platelets (Bld) [#/Vol] 413 10*3/uL Normal 138-453 [facility] Comment on above: Performed By: #### C P, CDP #### [address] [address] Wash Operator: Guillaume Roman MD RBC (Bld) [#/Vol] 3.29 10*6/uL Low 3.95-5.11 [facility] Comment on above: Performed By: #### C P, CDP #### [address] [address] Wash Operator: Guillaume Roman MD RBC morphology finding Nom (Bld) ANISOCYTOSIS PRESENT Normal [facility] Comment on above: Performed By: #### C P, CDP #### [address] [address] Wash Operator: Guillaume Roman MD WBC (Bld) [#/Vol] 6.8 10*3/uL Normal 3.5-11.3 [facility] Comment on above: Performed By: #### C P, CDP #### [address] [address] Wash Operator: Guillaume Roman MD Comp Metabolic Profon 2023 Albumin [Mass/Vol] 3.6 g/dL Normal 3.5-5.2 [facility] Comment on above: Performed By: #### C P, CDP #### [address] [address] Wash Operator: Guillaume Roman MD Albumin/Glob Ratio 2.0 Normal 1.0-2.5 [facility] Comment on above: Performed By: #### C P, CDP #### [address] [address] Wash Operator: Guillaume Roman MD Alkaline Phos 93 U/L Normal 35-104 [facility] Comment on above: Performed By: #### C P, CDP #### [address] [address] Wash Operator: Guillaume Roman MD ALT [Catalytic activity/Vol] 14 U/L Normal 10-35 [facility] Comment on above: Performed By: #### C P, CDP #### [facility] [address] [place] [address] Wash Operator: Guillaume Roman MD Anion gap [Moles/Vol] 10 mmol/L Normal 9-16 [facility] Comment on above: Performed By: #### C P, CDP #### [address] [address] Wash Operator: Guillaume Roman MD AST [Catalytic activity/Vol] 33 U/L Normal 10-35 [facility] Comment on above: Performed By: #### C P, CDP #### [address] [address] Wash Operator: Guillaume Roman MD Bilirubin [Mass/Vol] 0.3 mg/dL Normal 0.00-1.20 [facility] Comment on above: Performed By: #### C P, CDP #### [address] [address] Wash Operator: Guillaume Roman MD Calcium [Mass/Vol] 8.8 mg/dL Normal 8.6-10.4 [facility] Comment on above: Performed By: #### C P, CDP #### [address] [address] Wash Operator: Guillaume Roman MD Chloride [Moles/Vol] 109 mmol/L High 98-107 [facility] Comment on above: Performed By: #### C P, CDP #### [address] [address] Wash Operator: Guillaume Roman MD CO2 [Moles/Vol] 19 mmol/L Low 20-31 [facility] Comment on above: Performed By: #### C P, CDP #### [address] [address] Wash Operator: Guillaume Roman MD Creatinine [Mass/Vol] 1.0 mg/dL High 0.50-0.90 [facility] Comment on above: Performed By: #### C P, CDP #### [address] [address] Wash Operator: Guillaume Roman MD GFR/1.73 sq M.predicted among non-blacks MDRD (S/P/Bld) [Vol rate/Area] 59 mL/min/{1.73_m2} Low >60 [facility] Comment on above: Result Comment: [...] Performed By: #### C P, CDP #### [address] [address] Wash Operator: Guillaume Roman MD Glucose [Mass/Vol] 97 mg/dL Normal 74-99 [facility] Comment on above: Performed By: #### C P, CDP #### [address] [address] Wash Operator: Guillaume Roman MD Potassium [Moles/Vol] 4.3 mmol/L Normal 3.7-5.3 [facility] Comment on above: Result Comment: SPEC IMEN SLIGHTLY HEMOLYZED, RESULTS MAY BE ADVERSELY AFFECTED. Performed By: #### C P, CDP #### [address] [address] Wash Operator: Guillaume Roman MD Protein [Mass/Vol] 5.4 g/dL Low 6.6-8.7 [facility] Comment on above: Performed By: #### C P, CDP #### [address] [id number] Wash Operator: Guillaume Roman MD Sodium [Moles/Vol] 138 mmol/L Normal 136-145 [facility] Comment on above: Performed By: #### C P, CDP #### [facility] [address] [place], [place] [address] Wash Operator: Guillaume Roman MD Urea nitrogen [Mass/Vol] 11 mg/dL Normal 8-23 [facility] Comment on above: Performed By: #### C P, CDP #### [facility] [address] [place] [address] Wash Operator: Guillaume Roman MD Comprehensive Metabolic Pane [facility] 11-11-2023 Albumin [Mass/Vol] 3.6 g/dL 3.5 - 5.2 g/dL [facility] Albumin/Globulin [Mass ratio] 2.0 {ratio} 1.0 - 2.5 [facility] ALP [Catalytic activity/Vol] 93 U/L 35 - 104 U/L [facility] ALT [Catalytic activity/Vol] 14 U/L 10 - 35 U/L [facility] Anion gap [Moles/Vol] 10 mmol/L 9 - 16 mmol/L [facility] AST [Catalytic activity/Vol] 33 U/L 10 - 35 U/L [facility] Bilirubin [Mass/Vol] 0.3 mg/dL 0.00 - 1.20 mg/dL [facility] Calcium [Mass/Vol] 8.8 mg/dL 8.6 - 10. 4 mg/dL [facility] Chloride [Moles/Vol] 109 mmol/L High 98 - 10 7 mmol/L [facility] CO2 [Moles/Vol] 19 mmol/L Low 20 - 31 mmol/L [facility] Creatinine [Mass/Vol] 1.0 mg/dL High 0.50 - 0.90 mg/dL [facility] Est, Glom Filt Rate 59 Low - [facility] Comment on above: These results are [...] [Mass/Vol] 97 mg/dL 74 - 99 mg/dL [employer] Interpretation and review of laboratory results Abnormal [employer] Potassium [Moles/Vol] 4.3 mmol/L 3.7 - 5.3 mmol/L [employer] Comment on above: SPECIMEN SLIGHTLY HE MOLYZED, RESULTS MAY BE ADVERSELY AFFECTED. Protein [Mass/Vol] 5.4 g/dL Low 6.6 - 8.7 g/dL [facility] Sodium [Moles/Vol] 138 mmol/L 136 - 145 mmol/L [facility] Urea nitrogen [Mass/Vol] 11 mg/dL 8 - 23 mg/dL [employer] Consultation Noteon 11-11-19 24 Consultation Note [id number]#1.00T IFF Normal [facility] EKG 12 LeadOrdered By: Butch Nascimento on 11-11-2023 Atrial Rate 62 BPM [employer] Work Phone: P Rye 40 degrees [employer] Work Phone: P-R Interval 168 ms [employer] Work Phone: Q-T Interval 404 ms [employer] Work Phone: QTc Calculation ([place]) 410 ms [employer] Work Phone: R Rye 6 degrees [employer] Work Phone: T Rye 20 degrees [employer] Work Phone: Ventricular Rate 62 BPM [employer] Work Phone: EKG 12 Leadon 11-11-2023 Normal sinus rhythm Cannot rule out Anterior infarct , age undetermined Abnormal ECG No previous ECGs available [facility] STWily Walter MD / Butch Nascimento MD - 11/11/2023 Normal sinus rhythm Cannot rule out Anterior infarct , age undetermined Abnormal ECG No previous ECGs available [facility] SECMy Study Rewards Atrial Rate 65 BPM [facility] [employer] [facility] P Rye 42 degrees [facility] TROYY HEALTH P-R Interval 172 ms [facility] Q-T Interval 406 ms [facility] [employer] Platform QTc Calculation (Bazett) 422 ms [facility] R Rye 7 degrees [facility] T Rye 19 degrees [facility] Ventricular Rate 65 BPM [facility] SECO [facility] [employer]s Platform Normal sinus rhythm Normal ECG When compared with ECG of 10-NOV-2023 04:31, No significant change was found [facility] STWily Walter MD / Butch Nascimento MD - 11/11/2023 Normal sinus rhythm Normal ECG When compared with ECG of 10-NOV-2023 04:31, No significant change was found [facility] Glucose,Whole Bloodon 2023 Glucose [Mass/Vol] 120 mg/dL High 65-105 [facility] Glucose [Mass/Vol] 92 mg/dL Normal 65-105 [facility] Glucose [Mass/Vol] 83 mg/dL Normal 65-105 [facility] Glucose [Mass/Vol] 83 mg/dL Normal 65-105 [facility] Glucose [Mass/Vol] 88 mg/dL Normal 65-105 [facility] No Panel InformationOrdered By: Butch Nascimento on 11-11-2023 QRS Duration 86 ms [employer] [facility] [employer] Work Phone: [employer] [facility] PHOENIXYou.i [employer] Work Phone: POC Glucose Fingerstickon Glucose [Mass/Vol] 120 mg/dL High 65 - 105 mg/dL [facility] [employer] Interpretation and review of laboratory results Abnormal [facility] [employer] Glucose [Mass/Vol] 92 mg/dL 65 - 105 mg/dL [facility] Glucose [Mass/Vol] 83 mg/dL 65 - 105 mg/dL [facility] Glucose [Mass/Vol] 83 mg/dL 65 - 105 mg/dL [facility] Glucose [Mass/Vol] 88 mg/dL 65 - 105 mg/dL [facility] RAD - MRI Reporton RAD - MRI Report [id number] IFF Normal [facility] Surgical Pathology Reporton 11-11-2023 Surgical Pathology Report (NOTE) [id number] bead Button CONSULTING PATHOLOGISTS [facility] ANATOMIC PATHOLOGY [address] [place] [address]. [place], [place] [address] SURGICAL PATHOLOGY CONSULTATION Patient Name: ALEX [facility] [place] Rec: [id number] Path Number: [id number] Collected: 11/11/2023 Received: 11/14/2023 Reported: 11/17/2023 08:30 [...] JAYASHREE AVILEZ, [address] WAS SENT TO [facility] FOR PD-L1 EXPRESSION TESTING. THE RESULTS ARE FOLLOWS: PD-L1 EXPRESSION: POSITIVE TUMOR PROPORTION SCORE (TPS): 15% COMBINED POSITIVE SCORE (CPS): 17 PLEASE SEE [email or web address] COMPLETE REPORT ([id number]) FOR DETAILS. Candy Banegas Clinical Information Pre-Op [...] squamous carcinoma. Control reacts as expected. Normal [facility] BLOOD BANK SPECIMENon 2023 [facility] CBC with Auto Differentialon 11-10-2023 Basophils (Bld) [#/Vol] [facility] Basophils/100 WBC (Bld) 0 % 0 - 2 % [facility] Eosinophils (Bld) [#/Vol] 0.03 10*3/uL [facility] Eosinophils/100 WBC (Bld) 0 % Low 1 - 4 % [facility] Erythrocyte distribution width (RBC) [Ratio] 15.9 % High 11.8 - 14.4 % [facility] Hematocrit (Bld) [Volume fraction] 29.5 % Low 36.3 - 47.1 % [facility] Hemoglobin (Bld) [Mass/Vol] 8.7 g/dL Low 11.9 - 15.1 g/dL [facility] Immature granulocytes (Bld) [#/Vol] 0.06 10*3/uL [facility] Immature granulocytes/100 WBC (Bld) 1 % High 0 [facility] Interpretation and review of laboratory results Abnormal [facility] Lymphocytes/100 WBC (Bld) 10 % Low 24 - 43 % [facility] Lymphocytes/100 WBC (Bld) 0.86 % Low [facility] MCH (RBC) [Entitic mass] 26.9 pg 25.2 - 33.5 pg [facility] MCHC (RBC) [Mass/Vol] 29.5 g/dL 28.4 - 34.8 g/dL [facility] MCV (RBC) [Entitic vol] 91.3 fL 82.6 - 102.9 fL [facility] Monocytes/100 WBC (Bld) 9 % 3 - 12 % [facility] Monocytes/100 WBC (Bld) 0.72 % [facility] Neutrophils/100 WBC (Bld) 80 % High 36 - 65 % [facility] Nucleated RBC/100 WBC (Bld) [Ratio] 0.0 % 0.0 per 100 WBC [facility] Platelet mean volume (Bld) [Entitic vol] 8.5 fL 8.1 - 13.5 fL [facility] Platelets (Bld) [#/Vol] 389 10*3/uL [facility] RBC (Bld) [#/Vol] 3.23 10*6/uL Low 3.95 - 5.1 1 m/uL [facility] RBC (Bld) [#/Vol] ANISOCYTOSIS PRESENT [facility] Segmented neutrophils/100 WBC (Bld) 6.82 % [facility] WBC other (Bld) [#/Vol] 8.5 [facility] CBC with Diffon 11-10-2023 Abs. Basophil <0.03 Normal 0.00-0.20 [facility] Comment on above: Performed By: #### C DP GLYHGB #### [employer] [facility] [place] [address] Wash Operator: Guillaume Roman MD Abs.Imm.Granulocyte 0.06 k/uL Normal 0.00-0.30 [facility] Comment on above: Performed By: #### C DP GLYHGB #### [address] [address] Wash Operator: Guillaume Roman MD Abs.Neutrophil (Seg) 6.82 k/uL Normal 1.50-8.10 [facility] Comment on above: Performed By: #### C DP, GLYHGB #### [address] [address] Wash Operator: Guillaume Roman MD Basophils/100 WBC (Bld) 0 % Normal 0-2 [facility] Comment on above: Performed By: #### C DP, GLYHGB #### [address] [address] Wash Operator: Guillaume Roman MD Eosinophils (Bld) [#/Vol] 0.03 10*3/uL Normal 0.00-0.44 [facility] Comment on above: Performed By: #### C DP, GLYHGB #### [address] [address] Wash Operator: Guillaume Roman MD Eosinophils/100 WBC (Bld) 0 % Low 1-4 [facility] Comment on above: Performed By: #### C DP, GLYHGB #### [address] [address] Wash Operator: Guillaume Roman MD Erythrocyte distribution width (RBC) [Ratio] 15.9 % High 11.8-14.4 [facility] Comment on above: Performed By: #### C DP, GLYHGB #### [address] [address] Wash Operator: Guillaume Roman MD Hematocrit (Bld) [Volume fraction] 29.5 % Low 36.3-47.1 [facility] Comment on above: Performed By: #### C DP, GLYHGB #### [facility] [employer] [address] [place] [address] [place] [address] Wash Operator: Guillaume Roman MD Hemoglobin (Bld) [Mass/Vol] 8.7 g/dL Low 11.9-15.1 [facility] Comment on above: Performed By: #### C DP, GLYHGB #### [address] [address] Wash Operator: Guillaume Roman MD Immature granulocytes/100 WBC (Bld) 1 % High 0 [facility] Comment on above: Performed By: #### C DP, GLYHGB #### [address] [address] Wash Operator: Guillaume Roman MD Lymphocytes (Bld) [#/Vol] 0.86 10*3/uL Low 1.10-3.70 [facility] Comment on above: Performed By: #### C DP, GLYHGB #### [address] [address] Wash Operator: Guillaume Roman MD Lymphocytes/100 WBC (Bld) 10 % Low 24-43 [facility] Comment on above: Performed By: #### C DP, GLYHGB #### [address] [address] Wash Operator: Guillaume oRman MD MCH (RBC) [Entitic mass] 26.9 pg Normal 25.2-33.5 [facility] Comment on above: Performed By: #### C DP, GLYHGB #### [facility] [address] [place] [address] Wash Operator: Guillaume Roman MD MCHC (RBC) [Mass/Vol] 29.5 g/dL Normal 28.4-34.8 [facility] Comment on above: Performed By: #### C DP, GLYHGB #### [address] [address] Wash Operator: Guillaume Roman MD MCV (RBC) [Entitic vol] 91.3 fL Normal 82.6-102.9 [facility] Comment on above: Performed By: #### C DP, GLYHGB #### [address] [address] Wash Operator: Guillaume Roman MD Monocytes (Bld) [#/Vol] 0.72 10*3/uL Normal 0.10-1.20 [facility] Comment on above: Performed By: #### C DP, GLYHGB #### [address] [address] Wash Operator: Guillaume Roman MD Monocytes/100 WBC (Bld) 9 % Normal 3-12 [facility] Comment on above: Performed By: #### C DP, GLYHGB #### [address] [address] Wash Operator: Guillaume Roman MD Neutrophil (Seg) 80 % High 36-65 [facility] Comment on above: Performed By: #### C DP, GLYHGB #### [address] [address] Wash Operator: Guillaume Roman MD NRBC Automated 0.0 per 100 WBC Normal 0.0 [facility] Comment on above: Performed By: #### C DP, GLYHGB #### [address] [address] Wash Operator: Guillaume Roman MD Platelet mean volume (Bld) [Entitic vol] 8.5 fL Normal 8.1-13.5 [facility] Comment on above: Performed By: #### C DP, GLYHGB #### [address] [address] Wash Operator: Guillaume Roman MD Platelets (Bld) [#/Vol] 389 10*3/uL Normal 138-453 [facility] Comment on above: Performed By: #### C DP, GLYHGB #### [facility] [address] [place] [address] Wash Operator: Guillaume Roman MD RBC (Bld) [#/Vol] 3.23 10*6/uL Low 3.95-5.11 [facility] Comment on above: Performed By: #### C DP, GLYHGB #### [facility] [address] [place] [address] Wash Operator: Guillaume Roman MD RBC morphology finding Nom (Bld) ANISOCYTOSIS PRESENT Normal [facility] Comment on above: Performed By: #### C DP, GLYHGB #### [facility] [employer] [address] [place] [address] Wash Operator: Guillaume Roman MD WBC (Bld) [#/Vol] 8.5 10*3/uL Normal 3.5-11.3 [facility] Comment on above: Performed By: #### C DP, GLYHGB #### [facility] [employer] [address] [place] [address] Wash Operator: Guillaume Roman MD CT HEAD WO CONTRASTon [...] True Mccall MD 11/10/23 Final result Normal [facility] CT Head WO contraston 2023 No acute intracrania l abnormality. [facility] EXAMINATION: CT OF THE HEAD WITHOUT [...] of the visualized skull or soft tissues. [facility] True Mccall MD - 11/10/2023 EXAMINATION: CT OF THE [...] IMPRESSION: No acute intracranial abnormality. [facility] Radiology Study observation (narrative) [facility] CT Head WO contrastOrdered B y: True Mccall on 11-10-2023 [facility] Work Phone: Comp Metabolic Pr/rfx MGon 0 11-10-2023 Albumin [Mass/Vol] 3.5 g/dL Normal 3.5-5.2 [facility] Comment on above: Performed By: #### R EJEC, CMPX, LIPR ####[facility] [address] [place], [place] [phone] Director: Guillaume Roman MD Albumin/Glob Ratio 2.0 Normal 1.0-2.5 [facility] Comment on above: Performed By: #### R EJEC, CMPX, LIPR ####[facility] [address] [place], [place] [phone] Director: Guillaume Roman MD Alkaline Phos 85 U/L Normal 35-104 [facility] Comment on above: Performed By: #### R EJEC, CMPX, LIPR ####[facility] [address] [place], [place] [phone] Director: Guillaume Roman MD ALT [Catalytic activity/Vol] 9 U/L Low 10-35 [facility] Comment on above: Performed By: #### R EJEC, CMPX, LIPR ####[facility] [address] [place], [place] [phone] Director: Guillaume Roman MD Anion gap [Moles/Vol] 12 mmol/L Normal 9-16 [facility] Comment on above: Performed By: #### R EJEC, CMPX, LIPR ####[facility] [address] [place], [place] [phone] Director: Guillaume Roman MD AST [Catalytic activity/Vol] 20 U/L Normal 10-35 [facility] Comment on above: Performed By: #### R EJEC, CMPX, LIPR ####[facility] [address] [place], [place] [phone] Director: Guillaume Roman MD Bilirubin [Mass/Vol] 0.2 mg/dL Normal 0.00-1.20 [facility] Comment on above: Performed By: #### R EJEC, CMPX, LIPR ####[facility] [address] [place], [place] [address])[phone] Director: Guillaume Roman MD Calcium [Mass/Vol] 8.4 mg/dL Low 8.6-10.4 [facility] Comment on above: Performed By: #### R EJEC, CMPX, LIPR ####[facility] [address] [place], [place] [phone] Director: Guillaume Roman MD Chloride [Moles/Vol] 108 mmol/L High 98-107 [facility] Comment on above: Performed By: #### R EJEC, CMPX, LIPR ####[facility] [address] [place], [place] [phone] Director: Guillaume Roman MD CO2 [Moles/Vol] 17 mmol/L Low 20-31 [facility] Comment on above: Performed By: #### R EJEC, CMPX, LIPR ####[facility] [address] [place], [place] [phone] Director: Guillaume Roman MD Creatinine [Mass/Vol] 0.9 mg/dL Normal 0.50-0.90 [facility] Comment on above: Performed By: #### R EJEC, CMPX, LIPR ####[facility] [address] [place], [place] [phone] Director: Guillaume Roman MD GFR/1.73 sq M.predicted among non-blacks MDRD (S/P/Bld) [Vol rate/Area] 66 mL/min/{1.73_m2} Normal >60 [facility] Comment on above: Result Comment: [...] renal tubular secretion. Performed By: #### R FREDO CMPX, LIPR ####[facility] [address] [place], [place] [address])[phone] Director: Guillaume Roman MD Glucose [Mass/Vol] 99 mg/dL Normal 74-99 [facility] Comment on above: Performed By: #### R KELLEEC, CMPX, LIPR ####[facility] [address] [place], [place] [address])[phone] Director: Guillaume Roman MD Potassium [Moles/Vol] 4.5 mmol/L Normal 3.7-5.3 [facility] Comment on above: Result Comment: SPEC IMEN SLIGHTLY HEMOLYZED, RESULTS MAY BE ADVERSELY AFFECTED. Performed By: #### R EJECALIZAX, LIPR ####[facility] [address] [place] [address])[phone] Director: Guillaume Roman MD Protein [Mass/Vol] 5.0 g/dL Low 6.6-8.7 [facility] Comment on above: Performed By: #### R EJEC, CMPX, LIPR ####[facility] [address] [place], [place] [address])[phone] Director: Guillaume Roman MD Sodium [Moles/Vol] 137 mmol/L Normal 136-145 [facility] Comment on above: Performed By: #### R EJEC, CMPX, LIPR ####[facility] [address] [place] [address] Lab Director: Guillaume Roman MD Urea nitrogen [Mass/Vol] 10 mg/dL Normal 8-23 [facility] Comment on above: Performed By: #### R EJEC, CMPX, LIPR ####[facility] [address] [place] [address] lab Director: Guillaume Roman MD Comprehensive Metabolic Pane l w/ Reflex to MGon 11-10-2023 Albumin [Mass/Vol] 3.5 g/dL 3.5 - 5.2 g/dL [facility] Albumin/Globulin [Mass ratio] 2.0 {ratio} 1.0 - 2.5 [facility] ALP [Catalytic activity/Vol] 85 U/L 35 - 104 U/L [facility] ALT [Catalytic activity/Vol] 9 U/L Low 10 - 35 U/L [facility] Anion gap [Moles/Vol] 12 mmol/L 9 - 16 mmol/L [facility] AST [Catalytic activity/Vol] 20 U/L 10 - 35 U/L [facility] Bilirubin [Mass/Vol] 0.2 mg/dL 0.00 - 1.20 mg/dL [facility] Calcium [Mass/Vol] 8.4 mg/dL Low 8.6 - 10. 4 mg/dL [facility] Chloride [Moles/Vol] 108 mmol/L High 98 - 10 7 mmol/L [facility] CO2 [Moles/Vol] 17 mmol/L Low 20 - 31 mmol/L [facility] Creatinine [Mass/Vol] 0.9 mg/dL 0.50 - 0.90 mg/dL [facility] Est, Glom Filt Rate 66 - PINF [facility] Comment on above: These results are [...] mg/dL 74 - 99 mg/dL [facility] Interpretation and review of laboratory results Abnormal [facility] Potassium [Moles/Vol] 4.5 mmol/L 3.7 - 5.3 mmol/L [facility] Comment on above: SPECIMEN SLIGHTLY HE MOLYZED, RESULTS MAY BE ADVERSELY AFFECTED. Protein [Mass/Vol] 5.0 g/dL Low 6.6 - 8.7 g/dL [facility] Sodium [Moles/Vol] 137 mmol/L 136 - 145 mmol/L [facility] Urea nitrogen [Mass/Vol] 10 mg/dL 8 - 23 mg/dL [facility] Glucose,Whole Bloodon 2023 Glucose [Mass/Vol] 104 mg/dL Normal 65-105 [facility] Glucose [Mass/Vol] 86 mg/dL Normal 65-105 [facility] Glucose [Mass/Vol] 89 mg/dL Normal 65-105 [facility] Glucose [Mass/Vol] 91 mg/dL Normal 65-105 [facility] Hemoglobin A1Con 11-10-2023 Average glucose Estimated from glycated hemoglobin (Bld) [Mass/Vol] 82 mg/dL [facility] Comment on above: The ADA and AACC rec ommend providing the estimated average glucose result to permit better patient understanding of their HBA1c result. HbA1c (Bld) [Mass fraction] 4.5 % 4.0 - 6.0 % [facility] Glucose [Mass/Vol] 82 mg/dL Normal [facility] Comment on above: Result Comment: The ADA and AACC recommend providing the estimated average glucose result to permit better patient understanding of their HBA1c result. Performed By: #### C DP, GLYHGB #### [facility] [address] [place] [address] Wash Operator: Guillaume Roman MD HbA1c (Bld) [Mass fraction] 4.5 % Normal 4.0-6.0 [facility] Comment on above: Performed By: #### C DP, GLYHGB #### [employer] [address] [place], [place] [phone] Wash Operator: Guillaume Roman MD Lipid Panelon 11-10-2023 Cholesterol [Mass/Vol] 79 mg/dL 0 - 199 mg/dL [facility] [employer] Comment on above: Cholesterol Guidelines: <200 Desirable 200-240 Borderline >240 Undesirable Cholesterol in HDL [Mass/Vol] 55 mg/dL 40 - PINF mg/dL [facility] [employer] Comment on above: HDL Guidelines: <40 Undesirable 40-59 Borderline >59 Desirable Cholesterol in LDL [Mass/Vol] 11 mg/dL 0 - 100 mg/dL [facility] [employer] Comment on above: LDL Guidelines: <100 Desirable 100-129 Near to/above Desirable 130-159 Borderline >159 Undesirable Direct (measured) LDL and calculated LDL are not interchangeable tests. Cholesterol in VLDL [Mass/Vol] 13 mg/dL [facility] [employer] Cholesterol.total/Cho lesterol in HDL [Mass ratio] 1.0 {ratio} [facility] [employer] Triglyceride [Mass/Vol] 66 mg/dL NINF - 150 mg/dL [facility] [employer] Comment on above: Triglyceride Guidelines: <150 Desirable 150-199 Borderline 200-499 High >499 Very high Based on AHA Guidelines for fasting triglyceride, April 2012. Lipid Profileon 11-10-2023 Cholesterol [Mass/Vol] 79 mg/dL Normal 0-199 [facility] Comment on above: Result Comment: Cholesterol Guidelines: <200 Desirable 200-240 Borderline >240 Undesirable Performed By: #### R EJEC, CMPX, LIPR ####[employer] [address] [place] [address] Lab Director: Guillaume Roman MD Cholesterol in HDL [Mass/Vol] 55 mg/dL Normal >40 [facility] Comment on above: Result Comment: HDL Guidelines: <40 Undesirable 40-59 Borderline >59 Desirable Performed By: #### R EJEC, CMPX, LIPR ####[employer] [address] [place], [place] [phone] Lab Director: Guillaume Roman MD Cholesterol in LDL [Mass/Vol] 11 mg/dL Normal 0-100 [facility] Comment on above: Result Comment: LDL Guidelines: <100 Desirable 100-129 Near to/above Desirable 130-159 Borderline >159 Undesirable Direct (measured) LDL and calculated LDL are not interchangeable tests. Performed By: #### R EJEC, CMPX, LIPR ####[employer] [address] [place] [address] Lab Director: Guillaume Roman MD Cholesterol in VLDL [Mass/Vol] 13 mg/dL Normal [facility] Comment on above: Performed By: #### R EJEC, CMPX, LIPR ####[facility] [address] [place], [place] [phone] Director: Guillaume Roman MD Cholesterol.total/Cho lesterol in HDL [Mass ratio] 1.0 {ratio} Normal [facility] Comment on above: Performed By: #### R EJEC, CMPX, LIPR ####[facility] [address] [place] [address] Lab Director: Guillaume Roman MD Triglyceride [Mass/Vol] 66 mg/dL Normal <150 [facility] Comment on above: Result Comment: Triglyceride Guidelines: <150 Desirable 150-199 Borderline 200-499 High >499 Very high Based on AHA Guidelines for fasting triglyceride, April 2012. Performed By: #### R EJEC, CMPX, LIPR ####[facility] [address] [place], [place] [phone] Director: Guillaume Roman MD MR Pelvis WO [...] left greater than right, is likely metastatic. [facility] EXAMINATION: MRI OF THE PELVIS WITHOUT [...] osseous structures are unremarkable. Minimal free fluid. [facility] Frank Deleon MD - 11/10/2023 EXAMINATION: [...] than right, is likely metastatic. [facility] Radiology Study observation (narrative) [facility] MR Pelvis WO and W contrast IVOrdered By: Frank Deleon on 11-10-2023 [facility] Work Phone: MRI PELVIS [...] Frank Deleon MD 11/10/23 Final result Normal [facility] No Panel Informationon 11-09 [facility] [employer] POC Glucose Fingerstickon Glucose [Mass/Vol] 104 mg/dL 65 - 105 mg/dL [facility] [employer] [facility] Glucose [Mass/Vol] 86 mg/dL 65 - 105 mg/dL [facility] Glucose [Mass/Vol] 89 mg/dL 65 - 105 mg/dL [facility] Glucose [Mass/Vol] 91 mg/dL 65 - 105 mg/dL [facility] [employer] [facility] [employer] PREVIOUS SPECIMENon 11-10-19 24 [facility] [employer] Specimen Rejectionon 024 Reason for rejection Unable to perform testing: Specimen clotted. Normal [facility] Comment on above: Performed By: #### R EJEC, CMPX, LIPR ####[facility] [address] [place] [address] Lab Director: Guillaume Roman MD Source of sample .BLOOD Normal [facility] Comment on above: Performed By: #### R EJEC, CMPX, LIPR ####[facility] [facility] [address] [place], [place] [id number] Lab Director: Guillaume Roman MD Test ordered CDP, GLYHGB [facility] Comment on above: Performed By: #### R EJEC, CMPX, LIPR ####[facility] [address] [place], [place] [address] lab Director: Guillaume Roman MD TYPE AND SCREENon 11-10-2023 ABO and Rh group Nom (Bld) Blood group O Rh(D) positive [facility] Arm Band Number BE [id number] [facility] Blood Bank Sample Expiration 11/13/2023,2359 [facility] Blood group antibodies identified Nom Negative [facility] Type + Screenon 11-10-2023 Type + Screen Sample Expiration 11/13/2023,2359 Arm Band Number BE [id number] ABO/Rh(D) O POSITIVE Antibody Screen NEGATIVE Normal [facility] Comment on above: Performed By: #### T YS #### [employer] [address] [place] [address] Wash Operator: MD Rene Barros 11-09-2023 L Specimen: [id number] Received: 11/10/23 Status: TESS Wadsworth Num: [id number] Spec Type: Surgical Subm Dr: Kobe Crespo Tissues: A Endometrium - Curettings (EMC) Procedures: HE/6, Gross/Micro L4 Age/ Patient Sex Location Account Attending Physician Candis Johnson 68/F LABELL [id number] Kobe Crespo SPEC NUM: [id number] RECD: 11/10/23 STATUS: TESS WADSWORTH NUM: [id number] NOY: 11/09/[address]: Kobe Crespo ENTERED: 11/10/[address] [facility] [address]: Angel Reynolds SPEC TYPE: Surgical DEPT: [...] uterus didelphys, vaginal stenosis, cervical stenosis Specimen: [id number] Received: 11/10/23 Status: TESS Berry Num: [id number] Spec Type: Surgical Subm Dr: Koeb Crespo Tissues: A Endometrium - Curettings (EMC) Procedures: GABRIEL/Noreen, Gross/Micro L4 Patient: Candis Johnson [id number] (Continued) Specimen: [id number] Received: 11/10/23 (Continued) Signed (signature on file) Jamarcus Chao MD 11/11/23 1448 Specimen: [id number] Received: 11/10/23 Status: TESS [place]adsworth Num: [id number] Spec Type: Surgical Subm Dr: Kobe Crespo Tissues: A Endometrium - Curettings (EMC) Procedures: , Gross/Micro L4 Patient: ChristianpnachoFatimah franklinsusan Cuellar [id number] (Continued) Specimen: [id number] Received: 11/10/23 (Continued) CPT Codes 88710 Specimen: [id number] Received: 11/10/23 Status: TESS Wadsworth Num: [id number] Spec Type: Surgical Subm Dr: Kobe Crespo Tissues: A Endometrium - Curettings (EMC) Procedures: GABRIEL/Noreen, Ginna/Ashley L4 Patient: Candis Johnson [id number] (Continued) Signed (signature on file) Jamarcus Chao MD 11/11/23 1448 Normal [facility] Lab Reportson 11-08-2023 Lab Reports [id number]#1.00T IFF Normal [facility] Lab Reportson 11-07-2023 Lab Reports [id number]#1.00T IFF Normal [facility] Consent for Procedure/Surger yon 10-14-2023 Consent for Procedure/Surgery [id number] IFF Normal [facility] Office Visiton 10-06-2023 Follow-up visit [id number] Kelby Johnson 1955 F Date Provider Department Center 10/06/2023 REBECCA VASQUEZ Family History Problem Relation Age of Onset Coronary artery disease Mother Cancer Father Diabetes Father Family Status - Relation Status Age at Mother Father Level of Service:69683 [place] OFFICE/OUTPATIENT ESTABLISHED MOD MDM 30 MIN Normal [facility] Office Visiton 09-23-2023 Follow-up visit [id number] Ayala 1955 F Date Provider Department Center 09/23/2023 [id number] CHI Family History Problem Relation Age of Onset Coronary artery disease Mother Cancer Father Diabetes Father Family Status - Relation Status Age at Mother Father Level of Service:83601 [place] OFFICE/OUTPATIENT ESTABLISHED LOW MDM 20 MIN Reason for Visit and Comments: Follow-up [690359] - Concerns: Not much states some swelling in legs and some back back, chest pain seems to be getting better Normal [facility] Office Visiton 08-26-2023 Follow-up visit [id number] Kelby Johnson 1955 F Date Provider Department Center 08/26/2023 384GUERDA ROLAND Family History Problem Relation Age of Onset Coronary artery disease Mother Cancer Father Diabetes Father Family Status - Relation Status Age at Mother Father Level of Service:07161 [place] OFFICE/OUTPATIENT NEW MODERATE MDM 45 MINUTES Normal [facility] Consent for Procedure/Surger yon 08-24-2023 Consent for Procedure/Surgery [id number]#1.00T IFF Normal [facility] Consent for Procedure/Surger yon 08-09-2023 Consent for Procedure/Surgery [id number]#1.00T IFF Normal [facility] Urine Cytology ([facility])on 0 08-09-2023 Urine Cytology Diagnosis Info Invalid Interpretation Code [facility] Comment on above: Result Comment: A:Ur ine,Urine:Voided Interpretation - MicroScopic Description - Adequacy - Gross Description Site ID:A color Dark Yellow fixative Alcohol Specimen designated Urine received in alcohol preservative and labeled with the patient?s name, consists of 110ml slightly cloudy dark yellow fluid. Electronically signed by : on: 08/09/2023 11:46:02 Performed By: #### 1 [id number] ####[facility] [address] [place] [address] Physician Referralon 024 Physician Referral [id number]#1.00 TIFF Normal [facility] Screenson 08-04-2023 Screens [id number]#1.00TI FF Normal [facility] Urine Cytology ([facility])on 0 08-04-2023 UC Method of Extraction Voided Normal [facility] Comment on above: Performed By: #### 1 [id number] ####[facility] [address] [place] [address] UC Number of Jars 1 Invalid Interpretation Code [facility] Comment on above: Performed By: #### 1 [id number] ####[facility] [address] [place] [address] UC Specimen Urine Normal [facility] Comment on above: Performed By: #### 1 [id number] ####[facility] [address] [place] [address] Type of Service Technical Only Normal [facility] Comment on above: Performed By: #### 1 [id number] ####[facility] [address] [place] [address] Ambulatory Visit Summaryon 0 08-03-2023 Ambulatory Visit [...] Following Appointments Follow Up with Marcelino GALLARDO, EMMY Gillespie, URO When: Comments: Schedule Cysto, Rt ureteroscopy, [...] the caus (more content not included)... Normal [facility] Home Recordson 08-03 Correction Records [id number]#1.00T IFF Normal [facility] Patient Educationon 08-03-19 Patient Education Urology [...] including vitamins, herbs, eye drops, creams, and rois-nqr-rboazfa medicines. ? Any problems you or family [...] care provider tells you to. ? Taking nvdz-hvb-xnhilub medicines, vitamins, herbs, and supplements. General instructions [...] monitor (more content not included)... Normal [facility] Urology Office/Clinic Noteon 08-03-2023 Urology Office/Clinic Note Chief Complaint Behavioral Health Aide for abnormalitties in urinary system HPI Staff Evaluation requested by Dr Kobe Crespo due to incidental findings on CT 06/06/23. *possible abnormality of urinary system. Ordered due to rectal bleeding. Pt is a new pt. Never before seen in our office. Pt is hard of hearing she can read lips and she has an nurses aid from her home ([facility]) CT abdomen pelvis wo/w con done @ [facility] on 06/06/23 She tried giving a urine [...] age Assessment/Plan 68 yo female resident of [facility] here for new patient evaluation of right hydroureteronephrosis. Pt is hard of hearing, can read lips and she has a nurses aid from her home with her. Mother had lung cancer. Denies any other urologic surgeries. 1. Hydroureteronephrosis (N13.30: Unspecified hydronephrosis) CT AP wo/w PO con @ [facility] on 06/06/23 - mod Rt-sided collecting system [...] of time. 4. Aspirin long-term use (Z79.82: [facility] (curre (more content not included)... Normal [facility] Comment on above: Result Comment: Elec [...] by: RIVKA FRAZIER Date: 2022-07-05 15:47 Normal [facility] MG MAMM SCREEN 3D DERRICK CADon 05-14-2022 MG MAMM SCREEN 3D DERRICK CAD Patient: CANDIS JOHNSON Exam Date: 05/14/2022 : 1955 Gender:F Ordering : DR ANDER LANGLEY D.O. Admission #: [id number] Family : Order #: [id number] CLICK HERE TO VIEW EXAM RADIOLOGY REPORT [...] Treatments None Family Cancers None LOCATION: [facility] BREAST COMPOSITION: Almost entirely fatty. FINDINGS: DIAGNOSTIC [...] MD on 05/14/2022 at 12:49 Normal [facility] BNPon 03-07-2022 Natriuretic peptide B (Bld) [Mass/Vol] 115.0 pg/mL Normal <=900.0 [facility] Comment on above: Performed By: #### B EXPEDITION SUPERVISOR, CMP, HSTROPN #### [facility] [address] [place] [address] Dr. Carl Zuñiga CBC AUTO DIFFon 03-07-2022 BASO # 0.0 103/ul Normal 0.0-0.1 [facility] Comment on above: Performed By: #### B EXPEDITION SUPERVISOR, CMP, HSTROPN #### [facility] [address] [place] [address] Dr. Carl Zuñiga Basophils/100 WBC (Bld) 0.0 % Critically low 0.2-2.0 [facility] Comment on above: Performed By: #### B EXPEDITION SUPERVISOR, CMP, HSTROPN #### [facility] [address] [place] [address] Dr. Carl Zuñiga EO # 0.1 103/ul Normal 0.0-0.7 [facility] Comment on above: Performed By: #### B EXPEDITION SUPERVISOR, CMP, HSTROPN #### [facility] [address] [place] [address] Dr. Carl Zuñiga Eosinophils/100 WBC (Bld) 1.0 % Normal 0.9-7.0 [facility] Comment on above: Performed By: #### B EXPEDITION SUPERVISOR, CMP, HSTROPN #### [facility] [address] [place] [address] Dr. Carl Zuñiga Erythrocyte distribution width (RBC) [Ratio] 13.7 % Normal 11.0-15.0 [facility] Comment on above: Performed By: #### B EXPEDITION SUPERVISOR, CMP, HSTROPN #### [facility] [address] [place] [address] Dr. Carl Zuñiga Hematocrit (Bld) [Volume fraction] 40.8 % Normal 36.0-48.0 [facility] Comment on above: Performed By: #### B EXPEDITION SUPERVISOR, CMP, HSTROPN #### [facility] [address] [place] [address] Dr. Carl Zuñiga Hemoglobin (Bld) [Mass/Vol] 13.1 g/dL Normal 12.0-16.0 [facility] Comment on above: Performed By: #### B EXPEDITION SUPERVISOR, CMP, HSTROPN #### [facility] [address] [place] [address] Dr. Carl Zuñiga IG # 0.02 10e3/ul Normal 0.00-0.03 [facility] Comment on above: Performed By: #### B EXPEDITION SUPERVISOR, CMP, HSTROPN #### [facility] [address] [place] [address] Dr. Carl Zuñiga IG % 0.3 % Normal 0.0-0.5 [facility] Comment on above: Performed By: #### B EXPEDITION SUPERVISOR, CMP, HSTROPN #### [facility] [address] [place] [address] Dr. Carl Zuñiga LYMPH # 0.9 103/ul Critically low 1.2-3.8 [facility] Comment on above: Performed By: #### B EXPEDITION SUPERVISOR, CMP, HSTROPN #### [facility] [address] [place] [address] Dr. Carl Zuñiga Lymphocytes/100 WBC (Bld) 13.9 % Critically low 20.5-60.0 [facility] Comment on above: Performed By: #### B EXPEDITION SUPERVISOR, CMP, HSTROPN #### [facility] [address] [place] [address] Dr. Carl Zuñiga MANUAL DIFF REQ NO Normal [facility] Comment on above: Performed By: #### B EXPEDITION SUPERVISOR, CMP, HSTROPN #### [facility] [address] [place] [address] Dr. Carl Zuñiga MCH (RBC) [Entitic mass] 30.8 pg Normal 26.7-34.0 [facility] Comment on above: Performed By: #### B EXPEDITION SUPERVISOR, CMP, HSTROPN #### [facility] [address] [place] [address] Dr. Carl Zuñiga MCHC (RBC) [Mass/Vol] 32.1 g/dL Normal 29.9-35.2 [facility] Comment on above: Performed By: #### B EXPEDITION SUPERVISOR, CMP, HSTROPN #### [facility] [address] [place] [address] Dr. Carl Zuñiga MCV (RBC) [Entitic vol] 96.0 fL Normal 81.0-99.0 [facility] Comment on above: Performed By: #### B EXPEDITION SUPERVISOR, CMP, HSTROPN #### [facility] [address] [place] [address] Dr. Carl Zuñiga MONO # 0.6 103/ul Normal 0.3-0.8 [facility] Comment on above: Performed By: #### B EXPEDITION SUPERVISOR, CMP, HSTROPN #### [facility] [address] [place] [address] Dr. Carl Zuñiga Monocytes/100 WBC (Bld) 9.2 % Normal 1.7-12.0 [facility] Comment on above: Performed By: #### B EXPEDITION SUPERVISOR, CMP, HSTROPN #### [facility] [address] [place] [address] Dr. Carl Zuñiga NEUT # 5.1 103/ul Normal 1.4-6.5 [facility] Comment on above: Performed By: #### B EXPEDITION SUPERVISOR, CMP, HSTROPN #### [facility] [address] [place] [address] Dr. Carl Zuñiga Neutrophils/100 WBC (Bld) 75.6 % Critically high 43.0-75.0 [facility] Comment on above: Performed By: #### B EXPEDITION SUPERVISOR, CMP, HSTROPN #### [facility] [address] [place] [address] Dr. Carl Zuñiga Platelet mean volume (Bld) [Entitic vol] 8.5 fL Critically low 9.5-13.5 [facility] Comment on above: Performed By: #### B EXPEDITION SUPERVISOR, CMP, HSTROPN #### [facility] [address] [place] [address] Dr. Carl Zuñiga PLT 206 103/ul Normal 150-450 [facility] Comment on above: Performed By: #### B EXPEDITION SUPERVISOR, CMP, HSTROPN #### [facility] [address] [place] [address] Dr. Carl Zuñiga RBC 4.25 106/ul Normal 4.20-5.40 [facility] Comment on above: Performed By: #### B EXPEDITION SUPERVISOR, CMP, HSTROPN #### [facility] [address] [place] [address] Dr. Carl Zuñiga WBC 6.7 103/ul Normal 4.0-11.0 [facility] Comment on above: Performed By: #### B EXPEDITION SUPERVISOR, CMP, HSTROPN #### [facility] [address] [place] [address] Dr. Carl Zuñiga D-DIMERon 03-07-2022 D-DIMER <0.19 Normal <=0.59 [facility] Comment on above: Performed By: #### D DIM #### [facility] [address] [place] [address] Dr. Carl Zuñiga D-DIMER COMMENTS SEE BELOW Normal [facility] Comment on above: Result [...] hospitalization. Performed By: #### D DIM #### [facility] [address] [place] [address] Dr. Carl Zuñiga PROF 14(COMP METB)on 022 Albumin [Mass/Vol] 3.9 g/dL Normal 3.4-5.0 [facility] Comment on above: Performed By: #### B EXPEDITION SUPERVISOR, CMP, HSTROPN #### [facility] [address] [place] [address] Dr. Carl Zuñiga Albumin/Globulin [Mass ratio] 1.5 {ratio} Normal [facility] Comment on above: Performed By: #### B EXPEDITION SUPERVISOR, CMP, HSTROPN #### [facility] [address] [place] [address] Dr. Carl Zuñiga ALP [Catalytic activity/Vol] 96 U/L Normal 46-116 [facility] Comment on above: Performed By: #### B EXPEDITION SUPERVISOR, CMP, HSTROPN #### [facility] [address] [place] [address] Dr. Carl Zuñiga ALT [Catalytic activity/Vol] 38 U/L Normal 14-59 [facility] Comment on above: Performed By: #### B EXPEDITION SUPERVISOR, CMP, HSTROPN #### [facility] [address] [place] [address] Dr. Carl Zuñiga Anion gap [Moles/Vol] 9.8 mmol/L Normal [facility] Comment on above: Performed By: #### B EXPEDITION SUPERVISOR, CMP, HSTROPN #### [facility] [address] [address] [address] Carl Zuñiga AST [Catalytic activity/Vol] 16 U/L Normal 15-37 [facility] Comment on above: Performed By: #### B EXPEDITION SUPERVISOR, CMP, HSTROPN #### [facility] [address] [address] [address] Carl Zuñiga Bilirubin [Mass/Vol] 0.5 mg/dL Normal 0.2-1.0 [facility] Comment on above: Performed By: #### B EXPEDITION SUPERVISOR, CMP, HSTROPN #### [facility] [address] [place] [address] Dr. Carl Zuñiga Calcium [Mass/Vol] 9.2 mg/dL Normal 8.5-10.1 [facility] Comment on above: Performed By: #### B EXPEDITION SUPERVISOR, CMP, HSTROPN #### [facility] [address] [place] [address] Dr. Carl Zuñiga Chloride [Moles/Vol] 103 mmol/L Normal 98-107 [facility] Comment on above: Performed By: #### B EXPEDITION SUPERVISOR, CMP, HSTROPN #### [facility] [address] [place] [address] Dr. Carl Zuñiga CO2 [Moles/Vol] 29.1 mmol/L Normal 21.0-32.0 [facility] Comment on above: Performed By: #### B EXPEDITION SUPERVISOR, CMP, HSTROPN #### [facility] [address] [place] [address] Dr. Carl Zuñiga Creatinine [Mass/Vol] 0.92 mg/dL Normal 0.55-1.02 [facility] Comment on above: Performed By: #### B EXPEDITION SUPERVISOR, CMP, HSTROPN #### [facility] [address] [place] [address] Dr. Carl Zuñiga EGFR-AF JAMAICAN >60 Normal >=60 [facility] Comment on above: Performed By: #### B EXPEDITION SUPERVISOR, CMP, HSTROPN #### [facility] [address] [place] [address] Dr. Carl Zuñiga EGFR-NON AF JAMAICAN >60 Normal >=60 [facility] Comment on above: Performed By: #### B EXPEDITION SUPERVISOR, CMP, HSTROPN #### [facility] [address] [address] [address] Carl Zuñiga Globulin (S) [Mass/Vol] 2.6 g/dL Normal [facility] Comment on above: Performed By: #### B EXPEDITION SUPERVISOR, CMP, HSTROPN #### [facility] [address] [address] [address] Carl Zuñiga Glucose [Mass/Vol] 109 mg/dL Critically high 74-106 [facility] Comment on above: Performed By: #### B EXPEDITION SUPERVISOR, CMP, HSTROPN #### [facility] [address] [place] [address] Dr. Carl Zuñiga Potassium [Moles/Vol] 3.9 mmol/L Normal 3.5-5.1 [facility] Comment on above: Performed By: #### B EXPEDITION SUPERVISOR, CMP, HSTROPN #### [facility] [address] [place] [address] Dr. Carl Zuñiga Protein [Mass/Vol] 6.5 g/dL Normal 6.4-8.2 [facility] Comment on above: Performed By: #### B EXPEDITION SUPERVISOR, CMP, HSTROPN #### [facility] [address] [place] [address] Dr. Carl Zuñiga Sodium [Moles/Vol] 138 mmol/L Normal 136-145 [facility] Comment on above: Performed By: #### B EXPEDITION SUPERVISOR, CMP, HSTROPN #### [facility] [address] [place] [address] Dr. Carl Zuñiga Urea nitrogen [Mass/Vol] 14.0 mg/dL Normal 7.0-18.0 [facility] Comment on above: Performed By: #### B EXPEDITION SUPERVISOR, CMP, HSTROPN #### [facility] [address] [place] [address] Dr. Carl Zuñiga Urea nitrogen/Creatinine [Mass ratio] 15.2 mg/mg Normal [facility] Comment on above: Performed By: #### B EXPEDITION SUPERVISOR, CMP, HSTROPN #### [facility] [address] [place], [place] [address] Dr. Carl Zuñiga TROPONIN, HIGH SENSITIVITYon 03-07-2022 HSTROP 2.8 pg/mL Critically low 4.0-51.3 [facility] Comment on above: Result Comment: CUT- OFF POINTS HAVE BEEN ESTABLISHED BASED ON THE FOURTH UNIVERSAL DEFINITIONS OF MYOCARDIAL INFARCTION. THE UPPER REFERENCE LIMIT (URL) OF TROPONIN, DEFINED THE 99TH PERCENTILE OF cTnI DISTRIBUTION IN A REFERENCE POPULATION, HAS BEEN CONFIRMED THE DECISION THRESHOLD FOR MA DIAGNOSIS. Performed By: #### B EXPEDITION SUPERVISOR, CMP, HSTROPN #### [facility] [address] [place], [place] [address] Dr. Carl Zuñiga XR CHEST 1 Von [...] DIANA BREAUX Date: 2022-03-07 10:05 Normal [facility] CT CSPINE WO CONon CT CSPINE WO [...] MARQUES PATEL Date: 2021-07-10 02:49 Normal [facility] CT HEAD WO CONon 07-10-2021 CT HEAD [...] by: MARQUES PATEL Date: 2021-07-10 02:44 Normal [facility] XR CHEST 1 Von 07-10-2021 XR [...] by: MARQUES PATEL Date: 2021-07-10 02:46 Normal [facility] XR PELVIS 1_2 VIEWSon 2020 XR [...] by: MARQUES PATEL Date: 2021-07-10 02:47 Normal [facility] Vital Signs Date Time Vital Sign Value Performing Clinician Carrol perez 12-07-2023 09:56-0400 Body weight 83.6 kg Laisha Coburn MD Work Phone: [facility] 12-07-2023 09:56-0400 Diastolic blood pressure 51 mm[Hg] Laisha Coburn MD Work Phone: [facility] 12-07-2023 09:56-0400 Heart rate 78 /min Laisha Coburn MD Work Phone: [facility] 12-07-2023 09:56-0400 Respiratory rate 17 /min Laisha Coburn MD Work Phone: [facility] 12-07-2023 09:56-0400 SaO2% (BldA) [Mass fraction] 99 % Laisha Coburn MD Work Phone: [facility] 12-07-2023 09:56-0400 Systolic blood pressure 98 mm[Hg] Laisha Coburn MD Work Phone: [facility] 11-28-2023 09:04-0400 Body temperature 97.7 [degF] El Ahmadi MD Work Phone: [facility] 11-28-2023 09:04-0400 Body weight 84.37 kg El Ahmadi MD Work Phone: [facility] 11-28-2023 09:04-0400 Diastolic blood pressure 78 mm[Hg] El Ahmadi MD Work Phone: [facility] 11-28-2023 09:04-0400 Heart rate 89 /min El Ahmadi MD Work Phone: [facility] 11-28-2023 09:04-0400 Respiratory rate 16 /min El Ahmadi MD Work Phone: [facility] 11-28-2023 09:04-0400 SaO2% (BldA) [Mass fraction] 99 % El Ahmadi MD Work Phone: [facility] 11-28-2023 09:04-0400 Systolic blood pressure 117 mm[Hg] El Ahmadi MD Work Phone: [facility] 11-12-2023 11:15-0400 Body temperature 97.9 [degF] Jayashree Avilez MD Work Phone: [facility] [employer] 11-12-2023 11:15-0400 Diastolic blood pressure 58 mm[Hg] Jayashree Avilez MD Work Phone: [facility] [employer] 11-12-2023 11:15-0400 Heart rate 74 /min Jayashree Avilez MD Work Phone: [facility] [employer] 11-12-2023 11:15-0400 Respiratory rate 18 /min Jayashree Avilez MD Work Phone: [facility] [employer] 11-12-2023 11:15-0400 SaO2% (BldA) [Mass fraction] 96 % Jayashree Avilez MD Work Phone: [facility] [employer] 11-12-2023 11:15-0400 Systolic blood pressure 116 mm[Hg] Jayashree Avilez MD Work Phone: [facility] [employer] 11-10-2023 03:41-0400 Body height 162.6 cm Jayashree Avilez MD Work Phone: [facility] [employer] 11-10-2023 03:41-0400 Body mass index (BMI) [Ratio] 33.34 kg/m2 Jayashree Avilez MD Work Phone: [facility] [employer] 11-10-2023 03:41-0400 Body weight 88.1 kg Jayashree Avilez MD Work Phone: [facility] [employer] 08-03-2023 08:23-0500 Blood Pressure Location [facility] [facility] Encounters Encounter Date Encounter Type Care Provider Facility Start: 01-05-2024 End: 01-05-2024 ambulatory Edmond KUHN Facility:CD:[id number] Start: 12-16-2023 End: 12-16-2023 [facility] Start: 12-08-2023 End: 12-08-2023 Social Work Lisa ZHANG Hematology/Oncology Comment on above: Patient Update Start: 12-07-2023 End: 12-07-2023 ambulatory LAISHA COBURN Facility:[facility] Start: 12-07-2023 End: 12-07-2023 Patient encounter procedure Laisha Coburn MD Work Phone: Radiation Oncology Comment on above: 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) Start: 12-02-2023 End: 12-02-2023 ambulatory EL AHMADI Facility:[facility] Start: 11-28-2023 End: 11-29-2023 ambulatory Nathalie [...] te Start: 11-23-2023 Orders Only Bernadette Metzger APRN.CNP Work Phone: Gynecology Oncology Comment on above: High grade squamous intraepithelial lesion (HGSIL), grade 3 SUDHA, on biopsy of cervix (Primary Dx) Start: 11-21-2023 End: 11-21-2023 ambulatory GUERDA [facility] Start: 11-17-2023 ambulatory Edmond Matias ty:[id number] Start: 11-10-2023 End: 11-12-2023 Evaluation and management of inpatient Jayashree Avilez MD Work Phone: [facility] MED SURG Comment on above: Bleeding from the ge nitourinary system Start: 11-09-2023 End: 11-09-2023 ambulatory Kobe Cherie Facility:[facility] Start: 11-02-2023 End: 11-02-2023 ambulatory KOBE CHERIE Not Available Start: 10-06-2023 End: 10-06-2023 ambulatory REBECCA [facility] Start: 09-23-2023 End: 09-23-2023 ambulatory [facility] Start: 08-26-2023 End: 08-26-2023 ambulatory [facility] Start: 08-24-2023 End: 08-24-2023 ambulatory Pamela M. Lue Facility:[facility] Start: 08-24-2023 End: 08-24-2023 Off-Site Pamela M. Lue [facility] Start: 08-04-2023 End: 08-04-2023 ambulatory Pamela M. Lue Facility[facility] Start: 08-04-2023 End: 08-04-2023 Lab Drop off Pamela M. Lue [facility] Start: 08-03-2023 End: 08-03-2023 ambulatory Pamela M. Lue Facility:[facility] Start: 08-03-2023 End: 08-03-2023 Patient encounter procedure [facility] Start: 07-27-2023 End: 07-27-2023 ambulatory KOBE CHERIE Not Available Start: 07-22-2023 ambulatory Pamela Lue Facility:[facility] Start: 07-06-2023 ambulatory Pamela Lue Facility:[facility] Start: 07-05-2023 End: 07-05-2023 ambulatory KOBE CHERIE Not Available Start: 05-25-2023 End: 05-25-2023 ambulatory KOBE CHERIE Not Available Start: 07-05-[address] RIVKA PAN Faci lity:H1 Start: 05-14-[address] ANDER LANGLEY Facil ity:H1 Start: 03-07-[address] ANDER LANGLEY Facil ity:H1 Start: 07-10-[address] RITA OTERO Facil ity:H1 Procedures Date Procedure Procedure Detail Performing [...] - S adam or Plasma Bernadette Metzger APRN.TECHNOLOGY COORDINATOR Work Phone: [phone] Pamela Benson Plan of Treatment Date Care Activity Detail Author Start: 11-09-2028 Lipid panel [facility] Start: 11-10-2026 Diabetes Screening Diabetes Screenin g [facility] Start: 11-10-2024 GFR test (Diabetes, CKD 3-4, OR last GFR 15-59) GFR test (Diabetes, CKD 3-4, OR last GFR 15-59) [facility] Start: 03-11-2024 Influenza vaccination Influenz a Vaccine (Season Ended) [facility] Start: 02-09-2024 Influenza vaccination Flu vacc ine (Season Ended) [facility] Start: 01-16-2024 End: 12-27-2024 MR Pelvis WO and W contrast IV MRI FEMALE PELVIS WO/W IVCON Radiology Routine 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) Expected: 01/16/2024, Expires: 12/27/2024 [facility] Work Phone: Comment on above: Expected: 01/16/2024 , Expires: 12/27/2024 Start: 12-28-2023 End: 12-28-2023 ambulatory 12/28/2023 10:00 AM EDT Visit (SP) Office Gynecology Oncology [address] [place] [address] [place] [address] Mariam Mckinley MD [address] [place] [address] Vaginal Mass Gynecology Oncology Comment on above: [...] 1:00 PM EDT Office Visit Radiation Oncology [address] [place] [address] [place] [address] [place] [address] New Consult Radiation Oncology Comment on above: New Consult Start: 12-02-2023 End: 12-02-2023 Patient encounter procedure 12/02/2023 1:30 PM EDT Appointment Radiology Pet CT [address] [place] [address] Comment on above: pet scan Start: 11-28-2023 End: 11-28-2023 Patient encounter procedure 11/28/2023 9:00 AM EDT Office Visit Radiation Oncology [address] [place] [address] El Ahmadi MD [address] [place] [place] [address] Dr Jareth Natarajan cevical cancer Radiation Oncology Comment on above: Dr Jareth Natarajan cevical cancer Start: 11-11-2023 Annual Wellness Visi t (Medicare) Annual Wellness Visit (Medicare) [facility] Start: 07-11-2023 Advance Directive Discussion Advance Directive Discussion [facility] Start: 07-11-2023 Behavioral Health Screening Behavioral Health Screening [facility] Start: 03-11-2023 Covid-19 Vaccine ( season) Covid-19 Vaccine ( season) [facility] Start: 03-11-2023 Covid-19 Vaccine ( season) Covid-19 Vaccine ( season) [facility] Start: 03-11-2023 COVID-19 Vaccine ( season) COVID-19 Vaccine ( season) [facility] Start: 2020 Pneumococcal 65+ yea rs Vaccine (1 of 1 - PCV) Pneumococcal 65+ years Vaccine (1 of 1 - PCV) [facility] Start: 2020 Pneumococcal Vaccine : 65+ (1 of 1 - PCV) Pneumococcal Vaccine: 65+ (1 of 1 - PCV) [facility] Start: 2020 Screening for osteoporosis Bone Density Screening [facility] Start: 2015 Respiratory Syncytia l Virus (RSV) or age 60 yrs+ (1 - 1-dose 60+ series) Respiratory Syncytial Virus (RSV) or age 60 yrs+ (1 - 1-dose 60+ series) [facility] Start: 2015 RSV Vaccine (1 - 1-dose 60+ series) RSV Vaccine (1 - 1-dose 60+ series) [facility] Start: 2010 Screening for osteoporosis DEXA (modify frequency per FRAX score) [facility] Start: 2005 Screening for malignant neoplasm of breast Breast cancer screen [facility] Start: 2005 Shingles vaccine (1 of 2) Shingles vaccine (1 of 2) [facility] Start: 2005 Shingrix Vaccine (1 of 2) Shingrix Vaccine (1 of 2) [facility] Start: 2000 Screening for malignant neoplasm of colon [facility] Start: 1995 Screening for malignant neoplasm of breast Mammogram Screening [facility] Start: 1974 DTaP/Tdap/Td vaccine (1 - Tdap) DTaP/Tdap/Td vaccine (1 - Tdap) [facility] Start: 1974 Urine microalbumin profile DTaP,Tdap,Td Vaccine (1 - Tdap) [facility] Start: 1973 Hepatitis C screening [facility] [employer] Start: 1967 Depression Screen Depression Screen [facility] [employer] Glucose [Mass/volume ] in Serum or Plasma [facility] [employer] Comment on above: 4X Daily (AC & HS) u ntil discontinued starting 11/10/2023 As Needed until disc ontinued starting 11/10/2023 OUTSIDE SURG PATH SLIDE REVIEW OUTSIDE SURG PATH SLIDE REVIEW Lab Routine High grade squamous intraepithelial lesion (HGSIL), grade 3 SUDHA, on biopsy of cervix Ordered: 11/23/2023 [facility] Work Phone: Comment on above: Ordered: 11/23/2023 Oxygen therapy [Minimum Data Set] Initiate Oxygen Therapy Protocol Respiratory Care Routine Daily until discontinued starting 11/10/2023 [facility] [employer] Comment on above: Daily until disconti nued starting 11/10/2023 End: 12-24-2024 PET+CT Guidance for localization of tumor of Skull base to mid-thigh-- W 18F-FDG IV NM PET/CT SKULL-THIGH INITIAL Radiology Routine 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) 1 Occurrences starting 11/25/2023 until 12/24/2024 [facility] Work Phone: Comment on above: 1 Occurrences starti ng 11/25/2023 until 12/24/2024 End: 11-10-2023 [facility] Work Phone: Comment on above: Once for 1 Occurrenc es starting 11/10/2023 until 11/10/2023 Surgical Pathology Surgical Path ology Lab Routine Bleeding from the genitourinary system Release Upon Ordering for 1 Occurrences starting 11/11/2023 [facility] [employer] Comment on above: Release Upon Orderin g for 1 Occurrences starting 11/11/2023 Immunizations Immunization Date Immunization Notes Care Provider Jairo burton 05-27-2022 SARS-CoV-2 (COVID-19 ) [id number] Pamela Benson [facility] [...] Date Payer Category Payer Self-pay 2023 Medicare [id number] 2020 Medicaid MEDICAID [facility] MEDICAID [id number] 2020-Present [phone] [address] [place] [address] Medicaid [id number] 2020 Medicaid [id number] 2020 Medicare MEDICARE MEDICAR E A AND B [id number] 2020-Present [phone] [address] [address] [place] [address] Medicare [id number] 2020 Medicare [id number] 1955 Unknown [id number] 1955 Unknown [id number] 1955 Unknown [id number] 1955 Unknown [id number] 1955 Unknown [id number] 1955 Unknown [id number] [id number] 1955 Unknown [id number] [id number] 1955 Unknown [id number] 1955 Unknown [id number] [id number] 1955 Unknown [id number] [id number] Unknown [id number] Social History Date Type Detail Facility Start: 08-03-2023 Tobacco smoking status Never s moked tobacco (finding) [facility] Start: 11-28-2023 End: 12-07-2023 Sex Assigned At Female [facility] Tobacco smoking stat [facility] Tobacco smoking consumption unknown [facility] Start: 1955 Sex Assigned At Not on file [facility] Start: 11-28-2023 [facility] History of tobacco use Current smoker [facility] History of tobacco use Cigarette Smoker [facility] Start: 11-28-2023 End: 12-07-2023 Cigarettes smoked current (pack per day) - Reported 0.5 [facility] Start: 11-28-2023 Tobacco use and exposure Smokeless tobacco non-user [facility] Start: 11-28-2023 End: 12-07-2023 Alcohol intake Current drinker of alcohol (finding) [facility] National Score (1-10 0), lower number is lower risk 63 [facility] Functional Status Date Assessment Result Facility 08-03-2023 Functional Status N/A [facility] Clinical Notes 08-03-2023 to 12-16-2023 UriahAlliei, DOCUMENTATION SUPERVISOR - 12/08/2023 2:57 PM EDTTelephone Encounter - Skylar Harris - 12/08/2023 1:09 PM EDTTelephone Encounter - Skylar Harris - 12/08/2023 1:09 PM EDT Note Date & Type Note Facility 12-16-2023 Note Cardiology Clinic No te HPI: Candis Johnson is a 68 y.o. female With no reported cardiac history who presents to cardiology clinic at the request of her CAR PRE COOLER doctor for perioperative restratification prior to D&C and LEEP procedure. Of note: Patient is deaf. 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 She does her best to communicate by lipreading. She is accompanied by her driver education road instructor son, grandson, who assists in communication. Patient here for follow up [facility] ED visit on 12/10/2023 for syncope. She [...] a past medical history of Diabetes mellitus ([facility]). Surgical History She has no past [...] respect their wis (more content not included)... [facility] 12-08-2023 Note HNO ID: [id number] Author: LISA KRUSE LSW Service: ? Author Type: Electric Wheelchair Repairer Type: Progress Notes Filed: 12/08/2023 15:01 Note Text: Patient appears on the [facility] First Time Radiation Treatment Report. MARCELO completed a chart review and there was a note from today...Please cancel Candis's SIM scheduled 12/09/[address] Ahmadi. Patient's PET scan shows metastatic disease and patient will proceed with chemotherapy per Dr. Templeton. SW will remain available and will follow up as appropriate. BRENT Siddiqi [facility] 12-08-2023 History of Presen t illness Narrative Patient appears on the [facility] First Time Radiation Treatment Report. MARCELO completed a chart review and there was a note from today...Please cancel Candis's SIM scheduled 12/09/[address] Ahmadi. Patient's PET scan shows metastatic disease and patient will proceed with chemotherapy per Dr. Templeton. MARCELO will remain available and will follow up as appropriate. BRENT Siddiqi documented in this encounter [facility] 12-08-2023 Telephone encounter Note Report faxed to Dr. Gleason and Dr. Avilez. Images pushed to [facility]. [facility] 12-08-2023 Miscellaneous Notes Report faxed to Dr. [...] Mecca Boyle RN documented in this encounter [facility] 12-08-2023 Telephone encounter Note MRI not needed per chat [facility] 12-08-2023 Miscellaneous Notes MRI not needed per chat Spoke with patients son, he would like scheudled at [facility] since its easiest for nusing home I sent over order will check on later, thanks Called son to see where they would like the MRI scheduled, had to leave a message. MRI order pending your approval. Mecca oByle RN Please place MRI orders Rad onc consult order signed for main campus referral (brachytherapy). Can cancel consult request with Dr. Mckinley - she is established with [facility] out of [place] already (Dr. Avilez). Will need repeat MRI pelvis week of January 15. Thanks! El Dr Ahmadi- order pending your approval. Nathalie Saleh RN Please place [facility] RAD onc consult I called and spoke to Angelina at [facility] and she said Candis does very [...] language. She has been a resident at [facility] assisted living for 4-5 years and does very well there per Landen. I notified Landen that Dr. Ahmadi is ordering a PET scan, rad onc consult at [facility] and trying to move up Candis's consult with Dr. Mckinley goran. Landen states between himself and [facility] transportation should not be an issue. Yumiko: 1. Please schedule PET scan goran. 2. Rad Onc consult at [facility] 3. Move up Dr. Mckinley's consult goran. Dr. Mckinley are you or your staff able to assist in rescheduling Ms. Johnson's consult with you goran per Dr. Ahmadi? She is currently scheduled for consult on 12/28/23. Thanks Mecca Boyle RN documented in this encounter [facility] 12-08-2023 Telephone encounter Note Cancelled appointment. [facility] 12-08-2023 Telephone encounter Note Yumiko: Please cancel [...] Gleason and Dr. Avilez. Mecca Boyle RN [facility] 12-08-2023 Telephone encounter Note Spoke with patients son, he would like scheudled at [facility] since its easiest for nusing home I sent over order will check on later, thanks [facility] 12-08-2023 Telephone encounter Note Called son to see where they would like the MRI scheduled, had to leave a message. [facility] 12-07-2023 History of Presen t illness Narrative [...] when she presented to Dr. Crespo in [place] from her nursing facility with symptoms of [...] Alcohol use: Yes Drug use: Not Currently [facility]IDE HISTORY: The patient is postmenopausa. COMPLETE REVIEW OF SYSTEMS: All other ROS: negative As noted in HPI PHYSICAL EXAM: VS: There were no vitals taken for this visit. KPS: 70 General Appearance: Alert and oriented. No acute distress. HEENT: NCAT. Sclera anicteric. PERRL. EOMI. Chest: No respiratory distress. Abdomen: Soft. Nontender. Nondistended. WILDERNESS GUIDE: Deferred at this time. RADIOLOGY/LABORATORY DATA: see [...] Coburn MD cc: El Ahmadi [address] [facility] [address] Jayashree Avilez [facility] Abisai Gleason Heme/Onc-[place] documented in this encounter [facility] 12-07-2023 Note HNO ID: [id number] Author: LAISHA COBURN MD Service: ? Author [...] when she presented to Dr. Crespo in [place] from her nursing facility with symptoms of [...] Alcohol use: Yes Drug use: Not Currently WILDERNESS GUIDE HISTORY: The patient is (more content not included)... [facility] 12-02-2023 Note HNO ID: [id number] Author: MIRIAN JIMENES RT(Con) Service: ? Author [...] 1340 PATIENT DISCHARGED TO: Ambulatory patient, left [place] department area. A Diagnostic radioactive procedure has taken place, with no further precautions necessary other than routine body substance precautions. More information regarding radiation safety can be found using this link: [email or web address] [email or web address] SIGNATURE: RT Aliyah(R) PATIENT NAME: Candis Johnson DATE: December 02, 2023 TIME: 2:23 PM PAGER/CONTACT #: [facility] 12-02-2023 Note HNO ID: [id number] Author: ASHWINI BUNCH RN Service: ? Author [...] DATE: December 02, 2023 TIME: 1:44 PM [facility] 11-28-2023 Telephone encounter Note MRI order pending your approval. Mecca Boyle RN [facility] 11-28-2023 Telephone encounter Note Please place MRI orders [facility] 11-28-2023 Note HNO ID: [id number] Author: EL AHMADI MD Service: ? Author Type: Physician Type: Progress Notes Filed: 12/13/2023 04:59 Note Text: Radiation Oncology - New Patient/Consult Note PATIENT NAME: Candis Johnson PATIENT REQUESTING PHYSICIAN: Dr. Jayashree Avilez, Dr. Abisai Gleason DIAGNOSIS: Locally advanced cervical cancer. PATIENT IDENTIFICATION: This patient was seen in the Department of Radiation Oncology at the [facility] with El Ahmadi MD. She was accompanied today by her son. She is mostly deaf and much of the conversation was conducted with the son who is also the medical power of employment law attorney. Final recommendations will be communicated back to the requesting physician by way of the shared medical record, or letter to requesting physician via US mail. HISTORY OF PRESENT ILLNESS: Ms. Johnson is a 68-year old deaf woman residing in an assisted living facility in [place], [place] and her son is her medical power of employment law attorney. Per note from Dr. Gleason on 11/24/2023: [...] the final pathology as below Path Number: [id number] -- Diagnosis -- A. LEFT CERVIX, BIOPSY: [...] IIIb cervical cancer and was evaluated by [facility] oncology and due to the fact fixed [...] lives in an assisted living facility in [place], [place]. She had a legal guardian in the past and her son is now the medical power of employment law attorney. She also has two other children. RADIATION HISTORY: The patient denies any history of therapeutic radiation. ALLERGIES: ALLERGIES No Known Allergies MEDICATIONS: Current Outpatient Medications: atorvastatin (LIPITOR) 40 mg tablet aspirin 81 mg cap TRULICITY 0.75 mg/0.5 mL pen injector cholecalciferol (VITAMIN D3) 5,000 unit tab acarbose (PRECOSE) 100 mg tablet acetaminophen (TYLENOL) 500 mg tablet CAPLYTA 42 (more content not included)... [facility] 11-28-2023 History of Presen t illness Narrative Images from the original note were not included. Radiation Oncology - New Patient/Consult Note PATIENT NAME: Candis Johnson PATIENT REQUESTING PHYSICIAN: Dr. Jayashree Avilez, Dr. Abisai Gleason DIAGNOSIS: Locally advanced cervical cancer. PATIENT IDENTIFICATION: This patient was seen in the Department of Radiation Oncology at the [facility] with El Ahmadi MD. She was accompanied today by her son. She is mostly deaf and much of the conversation was conducted with the son who is also the medical power of employment law attorney. Final recommendations will be communicated back to [...] lives in an assisted living facility in [place], [place]. She had a legal guardian in the past and her son is now the medical power of employment law attorney. She also has two other children. RADIATION [...] her son is her medical power of employment law attorney. She was recently diagnosed with advanced cervical [...] later this week. She has met with WILDERNESS GUIDE oncologist Dr. Avilez and medical oncologist Dr. [...] the residual disease to be performed at [facility] by one of my colleagues. 3. Referral will be made to my [facility] radiation oncology colleagues at [facility] for evaluation and treatment recommendations including making [...] which included preparing to see the patient, [id number] patient care, and counseling and educating the patient/family/caregiver. This document has been created with the use of voice recognition technology. It may contain inaccuracies, misspellings, inaccurate syntax or inappropriate word context that are a result of the inadequacies/shortcomings of said technology/software. documented in this encounter [facility] 11-28-2023 Telephone encounter Note Rad onc consult order signed for [facility] referral (brachytherapy). Can cancel consult request with Dr. Mckinley - she is established with [facility] out of [facility] (Dr. Avilez). Will need repeat MRI pelvis week of January 15. Thanks! El [facility] 11-28-2023 Nurse Note Pacemaker/Defibrillator?N Previous Cancer(s)?N Previous Radiation?N Lupus/Scleroderma?N On body monitoring device?N [facility] 11-28-2023 Nurse Note Pacemaker/Defibrillator?N Previous Cancer(s)?N Previous Radiation?N Lupus/Scleroderma?N On body monitoring device?N documented in this encounter [facility] 11-28-2023 Nurse Note Radiation Therapy - Patient Education Note PATIENT NAME: Candis Johnson PATIENT November 28, 2023 [facility] FACILITY/LOCATION: Critical access hospital READINESS TO LEARN Cognitive Ability: Confused at [...] device: No Signed by: Nathalie Saleh RN [facility] 11-28-2023 Nurse Note Radiation Therapy - Patient Education Note PATIENT NAME: Candis Johnson PATIENT November 28, 2023 [facility] FACILITY/LOCATION: Critical access hospital READINESS TO LEARN Cognitive Ability: Confused at [...] Nathalie Saleh RN documented in this encounter [facility] 11-28-[address] Ahmadi- kaelyn pending your approval. Nathalie Saleh RN [facility] 11-28-2023 Telephone encounter Note Please place [facility] RAD onc consult [facility] 11-28-2023 Note Education (RADTSA) CANDIS JOHNSON ([id number]) 1955 F DEF Date Time Provider Department 11/28/23 NATHALIE SALEH Reason for Visit: Patient Education [91] Visit Notes: >> Nathalie Saleh RN [facility] November 28, 2023 10:22 AM Status: Signed Radiation Therapy - Patient Education Note PATIENT NAME: Candis Johnson PATIENT November 28, 2023 [facility] FACILITY/LOCATION: Critical access hospital READINESS TO LEARN Cognitive Ability: Confused at [...] Encounter Status:Closed by NATHALIE SALEH on 11/28/23 [facility] 11-25-2023 Telephone encounter Note I called and spoke to Angelina at [facility] and she said Candis does very [...] language. She has been a resident at [facility] assisted living for 4-5 years and does very well there per Landen. I notified Landen that Dr. Ahmadi is ordering a PET scan, rad onc consult at [facility] and trying to move up Candis's consult with Dr. Elías zimmer. Landen states between himself and [facility] transportation should not be an issue. Yumiko: 1. Please schedule PET scan goran. 2. Rad Onc consult at [facility] 3. Move up Dr. Mckinley's consult goran. Dr. Mckinley are you or your staff able to assist in rescheduling Ms. Johnson's consult with you goran per Dr. Ahmadi? She is currently scheduled for consult on 12/28/23. Thanks Mecca BoyleRN [facility] 11-21-2023 Note Cardiology Clinic No te HPI: Candis Johnson is a 68 y.o. female With no reported cardiac history who presened to cardiology clinic at the request of her CAR PRE COOLER doctor for perioperative restratification prior to D&C and LEEP procedure. Of note: Patient is deaf. 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 She does her best to communicate by lipreading. She is accompanied by her driver education road instructor today, who assists in communication. Stress test and echocardiogram were performed after last visit. Stress test without evidence of ischemia. Echocardiogram demonstrated preserved EF. She had moderately elevated right-sided pressures (51 mmHg) and diastolic dysfunction. Patient here for 2 mo follow up. Lasix was put on hold at last apt in September 2023 by Leydi Miles CNP. Patient was admitted to [facility] for HGB of 6.5. D&C was attempted by Dr. Crespo but unsuccessful. She was transferred to [facility]. Cervical cancer is suspected per assisted living facilty. They would also like to know if lasix should be resumed or continue to be held. Patient still endorses some shortness of breath. Cardiology ROS: 10 point ROS is performed and is negative unless otherwise specified in HPI. Past Medical History She has a past medical history of Diabetes mellitus ([facility]). Surgical History She has no past [...] known allergies. Physical Exam VITAL SIGNS: BP 108/70 (BP Location: Left arm, Patient Position: Sitting) Pulse 85 Ht 1.626 m (5' 4 ) Wt 88.5 kg (195 lb) SpO2 98% BMI 33.47 kg/m??? Constitutional: Well developed, Well nourished, No [...] low risk stress test -Shortness of breath with elevated right sided pressures -Moderately elevated right sided pressures -HLD Plan: -Given moderately elevated right-sided pressures and lower extremity edema, will resume Lasix 20 mg daily.Re-check BMP in 1 week -Continue Atorvastatin 40 mg daily for HLD -Patient is undergoing evaluation for possible cervical cancer. Recommend follow up with mold shaker for this -Optimize medical management -Aggressive risk factor modification -Plan of care discussed with patient. All questions were answered. Patient voices understanding and is agreeable with current plan. -Patient was educated on red flag symptoms. Strict return precautions were provided. Patient verbalizes (more content not included)... [facility] 11-12-2023 Hospital course Narrative Sack Maker/Onc Discharge Summary [facility] Patient Name: Candis Johnson Patient [...] examination of vaginal mass as transfer from [facility]; HD#1 (11/09): Patient is hard [...] Follow-up care, restrictions reviewed. Wil Mai MD Financial Counselor Resident [facility] 11/12/2023, 9:07 AM documented in this encounter [facility] 11-12-2023 History of Presen t illness Narrative Gynecology Oncology Progress Note Candis Johnson is a 68 y.o. female HD#3, POD#1 who transferred from [place] due to concern for vaginal mass Patient [...] (H) 65 - 105 mg/dL Assessment/Plan: Candis Pickeringnoemi 68 y.o. female HD#3 transferred from [place] due to concern for vaginal mass - [...] with Deafness - Discussed with nursing at [facility] and patient's son, Landen - Per [...] significant clearance testing in anticipation for her rand maker/urologic procedures - 09/09/23: myocardial perfusion imagining normal [...] pRBC Hgb 8.9 - Admit Hgb at [facility] 8.7 - Hgb 5/3; 9.0 [...] insulin requirement Schizophrenia - Per nursing at [facility] and patient's son, patient has significant PMH of schizophrenia - Home meds include Topomax and Lumaterprone (not on formulary at [facility]. Consulted with IP pharmacy and they recommended [...] y.o. female HD#2, POD#0 who transferred from [place] due to concern for vaginal mass Patient [...] Johnson 68 y.o. female HD#2 transferred from [facility] due to concern for vaginal mass - Doing well, vitals stable - s/p villarreal catheter, UOP adequate - IVF: 75 cc/hr - Pain control: tylenol PRN - Labs: if sx - DVT Proph: SCDs - Abx: n/a - Diet: Adult - Encourage ambulation - Pathology pending Vaginal Bleeding - Patient originally transferred 2/2 [...] with Deafness - Discussed with nursing at [facility] and patient's son, Landen - Per [...] significant clearance testing in anticipation for her rand maker/urologic procedures - 09/09/23: myocardial perfusion imagining normal - 09/09/23: ECHO: EF 55-60%; normal RV size/function. Bilateral enlargement. Grade 2 diastolic dysfunction. - Repeat EKG 11/09: Normal sinus rhythm, anterior infarct age undetermined (old, seen on EKG on 08/15/23) - Nitroglycerin ordered PRN - Ranolazine not ordered inpatient - Continue to monitor Anemia - Admit Hgb @ [facility] 6.5 - S/p 2u pRBC Hgb 8.9 - Admit Hgb at [facility] 8.7 - Hgb 5/3; 9.0 [...] insulin requirement Schizophrenia - Per nursing at [facility] and patient's son, patient has significant PMH of schizophrenia - Home meds include Topomax and Lumaterprone (not on formulary at [facility]. Consulted with IP pharmacy and they recommended [...] a 68 y.o. female HD#2 transferred from [place] due to concern for vaginal mass Patient [...] Shift: I/O last 3 completed shifts: In: 1590 [P.O.:610; I.V.:950.9; IV Piggyback:30.1] Out: 2049 [Urine:2049] [...] Johnson 68 y.o. female HD#2 transferred from [place] due to concern for vaginal mass - [...] with Deafness - Discussed with nursing at [facility] and patient's son, Landen - Per [...] significant clearance testing in anticipation for her rand maker/urologic procedures - 09/09/23: myocardial perfusion imagining normal - 09/09/23: ECHO: EF 55-60%; normal RV size/function. Bilateral enlargement. Grade 2 diastolic dysfunction. - Repeat EKG 11/09: Normal sinus rhythm, anterior infarct age undetermined (old, seen on EKG on 08/15/23) - Nitroglycerin ordered PRN - Ranolazine not ordered inpatient - Continue to monitor Anemia - Admit Hgb @ [facility] 6.5 - S/p 2u pRBC Hgb 8.9 - Admit Hgb at [facility] 8.7 - AM CBC pending [...] insulin requirement Schizophrenia - Per nursing at [facility] and patient's son, patient has significant PMH of schizophrenia - Home meds include Topomax and Lumaterprone (not on formulary at [facility]. Consulted with IP pharmacy and they recommended [...] as the patient's health care power of employment law attorney. Landen has been advised of the [...] Evaluation: A cardiology evaluation was completed at [facility] prior to her transfer. Records have been reviewed. Lab results have been reviewed Proceed with surgical evaluation as planned Jayashree Avilez MD Gynecologic Oncology Obstetric/Gynecology Resident Interval Note At time of rounding, patient in MRI suite obtaining MRI pelvis. Dr. Avilez, WILDERNESS GUIDE/ONC attending, present at bedside to discuss evaluation and management plans with patient's son, Landen. Landen is the patient's power of employment law attorney and medical decision maker. Paperwork uploaded [...] ms QTc Calculation (Bazett) 410 ms P Rye 40 degrees R Rye 6 degrees T Rye 20 degrees EKG 12 Lead Collection Time: 11/10/23 4:32 AM Result Value Ref Range Ventricular Rate 65 BPM Atrial Rate 65 BPM P-R Interval 172 ms QRS Duration 86 ms Q-T Interval 406 ms QTc Calculation (Bazett) 422 ms P Rye 42 degrees R Rye 7 degrees T Rye 19 degrees Comprehensive Metabolic Panel w/ Reflex [...] Sample Expiration 11/13/2023,2359 Arm Band Number BE [id number] ABO/Rh O POSITIVE Antibody Screen NEGATIVE Lipid [...] 65 - 105 mg/dL Annabelle Moss MD CAR PRE COOLER Resident, PGY2 [place], [place] 11/10/2023, 5:14 PM Attending Physician Statement [...] the resident. Jayashree Avilez MD Gynecologic Oncology CLIENT SUPPORT MANAGER ALL NOTES Facility/Department: [address] MED SURG CLINICAL BEDSIDE SWALLOW EVALUATION NAME: Candis Johnson : 1955 ADMISSION DATE: 11/10/2023 ADMITTING DIAGNOSIS: has Vaginal mass on their problem list. Date of Eval: 11/10/2023 Evaluating Therapist: JODIE Damon Current Diet level: Current Diet : NPO Current Liquid Diet : NPO Primary Complaint: Candis Johnson is a 68 y.o. female presents to [facility] as a direct transfer from [facility] for concern for vaginal cancer. All the information is derived from a paper chart from [facility]. We do not have access to medical [...] Normal in all situations Treatment Plan Requires CLIENT SUPPORT MANAGER Intervention: Yes 1-2X D/C Recommendations: Ongoing speech [...] Patient Education Response: Verbalizes understanding Therapy Time 8530-5899 JODIE Damon 11/10/2023 11:10 AM Unable to complete admission assessment. Patient has impaired hearing. documented in this encounter [facility] 10-06-2023 Note Cardiology Clinic No te Chief Complaint: preop risk stratification HPI: PMHx: Candis Johnson is a 68 y.o. female With no reported cardiac history who presents to cardiology clinic at the request of her CAR PRE COOLER doctor for perioperative restratification prior to D&C and LEEP procedure. Of note: Patient is deaf. 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 She does her best to communicate by lipreading. She is accompanied by her driver education road instructor today, who assists in communication. Today, patient [...] a past medical history of Diabetes mellitus ([facility]). Surgical History She has no past [...] test 09/09/2023 N (more content not included)... [facility] 10-06-2023 Note Patient here for 2 w [place] follow up SOB, atypical chest pain, and [...] All other systems reviewed and are negative. [facility] 09-23-2023 Note Cardiology Clinic No te Chief Complaint: preop risk stratification HPI: Candis Johnson is a 68 y.o. female With no reported cardiac history who presents to cardiology clinic at the request of her CAR PRE COOLER doctor for perioperative restratification prior to D&C and LEEP procedure. Of note: Patient is deaf. 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 She does her best to communicate by lipreading. She is accompanied by her driver education road instructor today, who assists in communication. Today, patient [...] a past medical history of Diabetes mellitus ([facility]). Surgical History She has no past [...] -Further recommendations regardi (more content not included)... [facility] 09-23-2023 Note Concerns: Not much s tates some swelling in legs and some back back, chest pain seems to be getting better [facility] 08-26-2023 Note Cardiology Clinic No te Chief Complaint: preop risk stratification HPI: Candis Capelle is a 68 y.o. female With no reported cardiac history who presents to cardiology clinic at the request of her CAR PRE COOLER doctor for perioperative restratification prior to D&C and LEEP procedure. Of note: Patient is deaf. 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 She does her best to communicate by lipreading. She is accompanied by her driver education road instructor today, who assists in communication. As per patient and her driver education road instructor, patient denies any cardiac history. She [...] a past medical history of Diabetes mellitus ([facility]). Surgical History She has no past [...] HLD -Optimize med (more content not included)... [facility] 08-26-2023 Note New patient here to establish care. Ref from Dr. Crespo for surgery clearance prior to D&C and LEEP procedure. This is scheduled for 08/31 at [facility] per patient. She had labs and EKG last week. Says she gets intermittent chest pain and SOB w/ exertion. Review of Systems HENT: Positive for hearing loss. Cardiovascular: Positive for chest pain (intermittent) and dyspnea on exertion (intermittent). All other systems reviewed and are negative. [facility] 08-04-2023 Evaluation + Plan note Diagnostic Tests PendingUrine Cytology ([facility]) 08/04/23 [facility] 08-03-2023 Hospital Discharg e instructions Patient [...] including vitamins, herbs, eye drops, creams, and poml-qsf-mtdohnm medicines. Any problems you or family members [...] health care provider tells you to. Taking aplb-vzb-wharjjq medicines, vitamins, herbs, and supplements. General instructions [...] provider. Document Revised: 10/22/2022 Document Reviewed: 10/22/2022 [employer] Patient Education 2022 [employer]. 08/03/2023 09:37:21 Hematuria, Adult Hematuria, Adult Hematuria [...] Follow these instructions at home: Medicines Take zjby-xkx-djmtwdj and prescription medicines only as told by [...] or the blood stops without treatment. Take wqwg-run-hoirhuo and prescription medicines only as told by your health care provider. Drink enough fluid to keep your urine pale yellow. This information is not intended to replace advice given to you by your health care provider. Make sure you discuss any questions you have with your health care provider. Document Revised: 02/25/2021 Document Reviewed: 02/25/2021 [employer] Patient Education 2022 [employer] Young. Follow Up Care 07/13/2023 11:34:42 With:Marcelino GALLARDO, Pamela Fam URVaishali, URO Address: When: Unknown Comments:Schedule Cysto, Rt ureteroscopy, possible biopsy, and Rt stent placement [facility] Evaluation + Plan note No data available for this section [facility] Evaluation note Diagnosis Vaginal mass- Primary Other specified symptom associated with female genital organs Bleeding from the genitourinary system Other specified disorders of urinary tract documented in this encounter [facility] note* Diagnosis High grade squamous intraepithelial lesion (HGSIL), grade 3 SUDHA, on biopsy of cervix- Primary documented in this encounter [facility] note* Diagnosis 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)- Primary documented in this encounter [facility] note* Diagnosis 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)- [facility] 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)- [facility] Diagnosis 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)- Primary [facility] Dis[facility] No data available for this section [facility]* Attachments The following attachments cannot be sent through Care Everywhere. 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) Procedures NM PET/CT SKULL-THIGH INITIAL PET IMAGING CT ATTENUATION SKULL BASE MID-THIGH El Ahmadi MD [facility] [employer] [facility] [place] [address] Molecular & Functional Imaging [address] [place] [address] Referral ID Status Reason Start Date Expiration Date Visits Requested Visits Authorized [id number] Pending Review Auto-Generat ed Referral 11/25/2023 12/24/2024 1 1 [facility] Summary Purpose Family History No Family History [...] W/O & W/CONTRAST MATERIAL El Ahmadi MD [facility] [place] [address] [place] [address] Referral ID Status Reason Start Date Expiration Date Visits Requested Visits Authorized [id number] Pending Review Auto-Generat ed Referral 01/16/2024 12/27/2024 1 1 Specialty Diagnoses / Procedures Referred By Contac t Referred To Contact Radiation Oncology Diagnoses 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) Procedures RAD/ONC CONSULT OFFICE/OUTPATIENT [facility] 60 MINUTES El Ahmadi MD [address] [place] [address] Referral ID Status Reason Start Date Expiration Date V isits Requested Visits Authorized [id number] Closed PCP Requested Referral 11/29/2023 11/27/2024 1 1 Additional Source Comments INFORMATION SOURCE (unrecogn ized section and content) DATE CREATED AUTHOR 07/05/2022 [facility] DATE CREATED AUTHOR AUTHOR'S ORGANIZ ATION 11/04/2023 [facility] EPIC DATE CREATED AUTHOR AUTHOR'S ORGANIZ ATION 12/13/2023 [facility] DATE CREATED AUTHOR AUTHOR'S ORGANIZ ATION 12/17/2023 [facility] DATE CREATED AUTHOR AUTHOR'S ORGANIZ ATION 12/20/2023 [facility] DATE CREATED AUTHOR AUTHOR'S ORGANIZ ATION 01/09/2024 [facility] DATE CREATED AUTHOR AUTHOR'S ORGANIZ ATION 01/12/2024 [facility] Patient Care team informatio n (unrecognized section and content) 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 Start Date End Date Ander Langley DO [address] [place] [phone] PCP - General Internal Medicine 11/10/23 Reason for Visit (unrecogniz ed section and content) Specialty Diagnoses / Procedures Referred By Contac t Referred To Contact Diagnoses Vaginal mass vaginal cancer, anemia bleeding Jayashree Avilez MD [address] [place] [address] [facility] [address] [place] [address] [facility] [address] [place] [address] Referral ID Status Reason Start Date Expiration Date Visits Re quested Visits Authorized [id number] 1 1 Reason Comments Patient Education Reason Comments Orders Patient Update Reason Comments Patient Update Reason Onset Date Comments Consult Simulation Request Form 11/28/2023 Reason Comments Consult Specialty Diagnoses / Procedures Referred By Contac t Referred To Contact Radiation Oncology Diagnoses 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) Procedures RAD/ONC CONSULT OFFICE/OUTPATIENT [facility] 60 MINUTES El Ahmadi MD [address] [place] [address] [place] [address] Referral ID Status Reason Start Date Expiration Date V isits Requested Visits Authorized [id number] Closed PCP Requested Referral 11/29/2023 11/27/2024 1 1 Scheduled Active and Recently Administ ered Medications (unrecognized section and content) Medication Order 11/10/2023 11/11/2023 11/12/2023 acarbose (PRECOSE) tablet 100 mg 100 mg, Oral, 2 times daily, First dose on [facility] 11/10/23 at 1000, Until Discontinued 1118 (Given - Provider: Radha Cadet RN)2147 (Given - Provider: Slaly Garcia RN) 0855 (Held - Provider: Snehal Chahal RN - Reason: Pt NPO)1624 (MAR Hold - Provider: Mar Autohold - Reason: Unreviewed Transfer Orders)1932 (MAR Unhold - Provider: Marysol Head RN)1955 [...] Transfer Orders)1700 (Automatically Held - Provider: Tiffany Yuhold)1931 (MAR Unhold - Provider: Marysol Head RN) [...] 2034 (Given - Provider: Sally Garcia RN) 162 [...] Snehal Chahal RN)162 (MAR Hold - Provider: Mar Autohold - Reason: Unreviewed Transfer Orders)1931 (MAR Unhold - Provider: Marysol Head RN)1954 (Given - Provider: Marysol Head RN) 0805 (Given - Provider: Janis Schwarz RN)2100 (Due) senna (SENOKOT) tablet 17.2 mg 17.2 mg (2 tablet), Oral, 2 TIMES DAILY, First dose on [facility] 11/10/23 at 1000, Until Discontinued 1118 (Given - Provider: Radha Cadet RN)2034 (Given - Provider: Sally Garcia RN) 0855 (Given - Provider: Snehal Chahal RN)162 (MAR Hold - Provider: Mar Autohold - Reason: Unreviewed Transfer Orders)1931 (MAR Unhold - Provider: Marysol Head RN)1954 (Given - Provider: Marysol Head RN) 0804 (Given - Provider: Janis Schwarz RN)2100 (Due) sodium chloride 0.9 % bolus 30 mL (COMPLETED) 30 mL (0.341 mL/kg), IntraVENous, ONCE, On [facility] 11/10/23 at 1745, For 1 dose 2005 (New Bag - Provider: Sally Garcia, RN)2025 (Rate/Dose Change - Provider: Sally Garcia RN)2025 (Stopped - Provider: Sally Garcia RN) topiramate (TOPAMAX) tablet 25 mg 25 mg, Oral, DAILY, First dose on [facility] 11/10/23 at 1030, Until Discontinued, It is not recommended to crush, break, or chew immediate release tablets due to bitter taste. 1118 (Given - Provider: Radha Cadet, PARAG) 0855 (Given - Provider: Snehal Chahal, PARAG)1624 (MAR Hold - Provider: Mar Autohold - [...] CLEMENTINE Caballero CRNA)1624 (MAR Hold - Provider: Mar Autohold - Reason: Unreviewed Transfer Orders)1634 (Paused [...] rate as the piggyback being infused. 1623 ([facility] Hold - Provider: Tiffany Autohold - Reason: Unreviewed Transfer Orders)1931 ([facility] Unhold - Provider: Marysol Head RN) acetaminophen (TYLENOL) tablet 1,000 mg 1,000 mg, Oral, EVERY 6 HOURS PRN, Starting on [facility] 11/10/23 at 0934, Until Discontinued, Pain Mild (1-3) 1623 ([facility] Hold - Provider: Tiffany Autohold - Reason: Unreviewed Transfer Orders)1931 ([facility] Unhold - Provider: Marysol Head RN) albuterol sulfate HFA (PROVENTIL;VENTOLIN;PROAIR) 108 (90 Base) MCG/ACT inhaler 2 puff 2 puff, Inhalation, EVERY 6 HOURS PRN, Starting on [facility] 11/10/23 at 0937, Until Discontinued, Wheezing, Initiate RT Bronchodilator Protocol: Yes - Inpatient Protocol 1623 ([facility] Hold - Provider: Tiffany Autohold - Reason: Unreviewed Transfer Orders)1931 ([facility] Unhold - Provider: Marysol [...] 60 minutes, discontinue dextrose 10% infusion. 1623 ([facility] Hold - Provider: Tiffany Autohold - Reason: Unreviewed Transfer Orders)1931 ([facility] Unhold - Provider: Marysol [...] at 100 mL/hour and notify provider. 1623 ([facility] Hold - Provider: Tiffany Autohold - Reason: Unreviewed Transfer Orders)1931 ([facility] Unhold - Provider: Marysol [...] at 100 mL/hour and notify provider. 1623 ([facility] Hold - Provider: Tiffany Autohold - Reason: Unreviewed Transfer Orders)1931 ([facility] Unhold - Provider: Marysol Head RN) fluticasone (FLONASE) 50 MCG/ACT nasal spray 2 spray 2 spray, Each Nostril, DAILY PRN, Starting on Rosina 11/10/23 at 0938, Until Discontinued, Rhinitis 1623 ([facility] Hold - Provider: Tiffany Autohold - Reason: Unreviewed Transfer Orders)1931 ([facility] Unhold - Provider: Marysol [...] minutes x 2 and notify provider. 1623 ([facility] Hold - Provider: Tiffany Autohold - Reason: Unreviewed Transfer Orders)1931 ([facility] Unhold - Provider: Marysol [...] LESS THAN 70 mg/dL, notify provider. 1623 ([facility] Hold - Provider: Tiffany Autohold - Reason: Unreviewed Transfer Orders)1931 ([facility] Unhold - Provider: Marysol [...] PACU only 1827 (Given - Provider: Vy Agee, PARAG) ipratropium 0.5 mg-albuterol 2.5 mg (DUONEB) nebulizer solution 1 Dose 1 Dose, Inhalation, EVERY 4 HOURS PRN, Starting on Tue11/10/23 at 0939, Until Discontinued, Shortness of Breath, Initiate RT Bronchodilator Protocol: Yes - Inpatient Protocol 1623 ([facility] Hold - Provider: Tiffany Autohold - Reason: Unreviewed Transfer Orders)1931 ([facility] Unhold - Provider: Marysol [...] break. Substituted for nitroGLYCERIN translingual spray (NITROLINGUAL).. 162 ([facility] Hold - Provider: Tiffany Autohold - Reason: Unreviewed Transfer Orders)193 ([facility] Unhold - Provider: Marysol Head RN) ondansetron (ZOFRAN) injection 4 mg(Linked Group 2) 4 mg, IntraVENous, EVERY 6 HOURS PRN, Starting on Rosina 11/10/23 at 0353, Until Discontinued, Nausea, Vomiting, Administer if oral route cannot be used. 162 ([facility] Hold - Provider: [facility] Autohold - Reason: Unreviewed Transfer Orders)1931 ([facility] Unhold - Provider: Marysol Head RN) ondansetron (ZOFRAN-ODT) disintegrating tablet 4 mg(Linked Group 2) 4 mg, Oral, EVERY 8 HOURS PRN, Starting on Rosina 11/10/23 at 0353, Until Discontinued, Nausea, Vomiting 1623 ([facility] Hold - Provider: [facility] Autohold - Reason: Unreviewed Transfer Orders)1931 ([facility] Unhold - Provider: Marysol Head RN) sod [...] Garcia RN) 162 ([facility] Hold - Provider: Mar Autohold - Reason: Unreviewed Transfer Orders)1931 ([facility] Unhold - Provider: Marysol Head, PARAG)1955 (Given - Provider: Marysol Head RN) Linked [...] or prosecute any alcohol or drug abuse patient.[facility] the event this information is protected by the Federal Confidentiality of Alcohol and Drug Abuse Patient Records regulations: The Federal rules restrict any use of the information to criminally investigate or prosecute any alcohol or drug abuse patient.[facility] the event this information is protected by the Federal Confidentiality of Alcohol and Drug Abuse Patient Records regulations: The Federal rules restrict any use of the information to criminally investigate or prosecute any alcohol or drug abuse patient.[facility] the event this information is protected by the Federal Confidentiality of Alcohol and Drug Abuse Patient Records regulations: The Federal rules restrict any use of the information to criminally investigate or prosecute any alcohol or drug abuse patient.[facility] the event this information is protected by the Federal Confidentiality of Alcohol and Drug Abuse Patient Records regulations: The Federal rules restrict any use of the information to criminally investigate or prosecute any alcohol or drug abuse patient.[facility] the event this information is protected by the Federal Confidentiality of Alcohol and Drug Abuse Patient Records regulations: The Federal rules restrict any use of the information to criminally investigate or prosecute any alcohol or drug abuse patient.[facility] Campus[facility] the event this information is protected by the Federal Confidentiality of Alcohol and Drug Abuse Patient Records regulations: The Federal rules restrict any use of the information to criminally investigate or prosecute any alcohol or drug abuse patient.[facility] Campus[facility] the event this information is protected by the Federal Confidentiality of Alcohol and Drug Abuse Patient Records regulations: The Federal rules restrict any use of the information to criminally investigate or prosecute any alcohol or drug abuse patient.[facility] FOR RECORDS PERTAINING TO PATIENTS WHO ARE [...] BE BASED ON THE PRIMARY CLINICAL RECORDS. [facility] [employer] [facility]. provides no warranty or guarantee of the accuracy or completeness of information in this document.
== END 2024-01-16 20:17 | disposition left against medical advice (07) ==
LOC: ER 18:47
PROVIDERS: Emergency Provider Student in an Organized Health Care Education/Training Program; PCP Internal Medicine
DX: Z53.21 Procedure and treatment not carried out due to patient leaving prior to being seen by health care provider (principal)

== ENCOUNTER 2024-01-25 00:48 | Outpatient (REF) | payer MEDICARE, MEDICAID, SELFPAY ==
--- OUTSIDE RECORDS SUMMARY | 2024-01-25 00:53 | XMS_ITS | CCD ---
Author Organization [facility] ion [facility] Care Team Providers Care Wine Consultant Name Role Phone MARKER, DR SALINAS [...] Benson Attending Unavailable Pamela Benson Attending Unavailable Kobe CRESPO Referring [...] 8 hours as needed. 0 05/20/2023 Active [id number] 200 actuat albuterol 0.09 mg/actuat metered dose [...] (ALISSA NASE) 50 mcg/actuation nasal spray 1 [place] once daily. 0 Active furosemide 20 mg [...] times a day. 0 05/15/2023 Active sennosides, jail 8.6 mg oral tablet (1 source) Start: [...] source) Long-term current use of aspirin; Translations: [long-term (current) use of aspirin] Onset: 4 Episodic [...] Range Facility Consultation Noteon 12-27-19 Consultation Note [id number]#[id number] FF Normal [facility] Pathology Noteon 12-27-2023 Pathology Note [id number]#1.00T IFF Normal [facility] RAD - Nuclear Medicine Repor ton 12-27-2023 RAD - Nuclear Medicine Report [id number] IFF Normal [facility] Office Visiton 12-16-2023 Follow-up visit [id number] Kelby Johnson 1955 F Date Provider Department Center 12/16/2023 [id number] AGUILAR CARD [facility] Family History Problem Relation Age of Onset Coronary artery disease Mother Cancer Father Diabetes Father Family Status - Relation Status Age at Mother Father Level of Service:62224 [place] OFFICE/OUTPATIENT ESTABLISHED LOW MDM 20 MIN Normal [facility] Operative Reporton Operative Report [id number]#1.00T IFF Normal [facility] Armani 12-08-2023 CNPN Telephone (RADTSA) CANDIS JOHNSON ([id number]) 1955 F DEF Date Time Provider Department [...] to Dr. Gleason and Dr. Avilez. Mecca Boyle, PARAG Thayer, Yumiko 12/08/2023 11:19 AM Signed Cancelled appointment. Skylar Harris 12/08/2023 1:10 PM Signed Report faxed to Dr. Gleason and Dr. Avilez. Images pushed to [facility]. Allergies As of Date: 12/08/2023 (No [...] fluticasone (FLONASE) 50 mcg/actuation nasal spray 1 [place] once daily. - magnesium hydroxide (MOM) 400 [...] Encounter Status:Closed by MECCA BOYLE on 12/08/23 [facility] CNOVon 12-07-2023 CNOV Office Visit (RADTMN ) CANDIS JOHNSON ([id number]) 1955 F DEF Date Time Provider Department [...] when she presented to Dr. Crespo in [facility] [place] from her nursing facility with symptoms of [...] status: Post-menopausa (more content not included)... Normal [facility] Consultation Noteon 12-02-19 Consultation Note [id number]#1.00TI FF Normal [facility] NM PET/CT SKULL-THIGH INITon 12-02-2023 NM [...] * Radiopharmaceutical Dose: 9.7 mCi * Radiopharmaceutical: U01-Gpfdhvplqfzmpatqcq (FDG) COMPARISON: No previous FDG PET/CT available CORRELATION: [facility] MRI pelvis 11/10/2023; [facility] CT abdomen/pelvis 06/06/2023 RESULT: REFERENCES: SUV reference values: * Blood pool (descending aorta) activity: SUVmax 3.0 * Background liver activity: SUVmax 3.3 Manufacturing Accountant (topogram) images: No additional findings. Notes and [...] 08 2023 10:26A Dictated by: AMI BUI, This examination was interpreted and the report reviewed and electronically signed by: (more content not included)... Normal [facility] Orders Onlyon 12-01-2023 Orders Only [id number] Kelby Johnson 1955 F Date Provider Department Center 12/01/2023 [id number], [facility] Gail Barreto Family History Problem Relation Age of Onset Coronary artery disease Mother Cancer Father Diabetes Father Family Status - Relation Status Age at Mother Father Normal [facility] CNOVon 11-28-2023 CNOV Office Visit (RADTSA ) ARICANDIS Franklin Alisa ([id number]) 1955 F DEF Date Time Provider Department [...] the Department of Radiation Oncology at the [facility] with El Ahmadi MD. She was accompanied today by her son. She is mostly deaf and much of the conversation was conducted with the son who is also the medical power of disability attorney. Final recommendations will be communicated back to the requesting physician by way of the shared medical record, or letter to requesting physician via US mail. HISTORY OF PRESENT ILLNESS: Ms. Johnson is a 68-year old deaf woman residing in an assisted living facility in [place], [place] and her son is her medical power of disability attorney. Per note from Dr. Gleason on [...] the final pathology as below Path Number: [id number] -- Diagnosis -- A. LEFT CERVIX, BIOPSY: [...] IIIb cervical cancer and was evaluated by [facility] DEPARTMENT SUPERVISOR oncology and due to the fact fixed [...] lives in an assisted living facility in [place], [place]. She had a legal guardian in the past and her son is n (more content not included)... Normal [facility] Armani 11-25-2023 RADHIKAN Telephone (RADTSA) CANDIS JOHNSON ([id number]) 1955 F DEF Date Time Provider Department 11/25/23 EL AHMADI During your visit today, we recorded the following information about you: Mecca Boyle LPN 11/25/2023 2:29 PM Signed I called and spoke to Angelina at [facility] and she said Candis does very [...] language. She has been a resident at [facility] assisted living for 4-5 years and does very well there per Landen. I notified Landen that Dr. Ahmadi is ordering a PET scan, rad onc consult at [facility] and trying to move up Candis's consult with Dr. Mckinley goran. Landen states between himself and [facility] transportation should not be an issue. Yumiko: 1. Please schedule PET scan goran. 2. Rad Onc consult at [facility] 3. Move up Dr. Mckinley's consult goran. Dr. Mckinley are you or your staff able to assist in rescheduling Ms. Johnson's consult with you goran per Dr. Ahmadi? She is currently scheduled for consult on 12/28/23. Thanks PARAG Aguilar Tiffany 11/28/2023 7:[address] [facility] [place] RAD onc consult Nathalie Saleh RN 11/28/2023 7:[address] Ahmadi- order pending your approval. PARAG Alves Saju, MD 11/28/2023 10:28 AM Signed Rad onc consult order signed for [facility] referral (brachytherapy). Can cancel consult request with Dr. 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 Avilez). Will need repeat MRI [...] patients son, he would like scheudled at [facility] since its easiest for nusing home I sent over order will check on later, thanks Yumiko Mariee 12/08/2023 12:08 PM Signed MRI not needed per chat Allergies As of Date: 11/25/2023 (Not on File) Date Reviewed: Never Reviewed Reason for Visit: Orders [681] Patient Update [1234] Primary Visit Diagnosis: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) [C53.8] Order(s):RAD/ONC CONSULT [9037] Order #: [id number]: 1 FUTURE MRI FEMALE PELVIS WO/W IVCON [[id number]] Order #: [id number] FUTURE [] iv contrast (will be provided [...] fluticasone (FLONASE) 50 mcg/actuation nasal spray 1 [place] once daily. - mag (more content not included)... Normal [facility] OUTSIDE SURG PATH SLIDE REVI EWon 11-25-2023 CASE REPORT Normal [facility] Comment on above: Order Comment: Speci men Type: FORMALIN-FIXED PARAFFIN-EMBEDDED TISSUE SPECIMEN Ordering Facility: [facility] Review Address: , , Result Comment: Surg 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 Normal [facility] Comment on above: Order Comment: Speci men Type: FORMALIN-FIXED PARAFFIN-EMBEDDED TISSUE SPECIMEN Ordering Facility: [facility] Review Address: , , Performed By: #### L [id number] #### [facility] CLIA [id number] [address] [place] [address] FINAL DIAGNOSIS Normal [facility] Comment on above: Order Comment: Speci men Type: FORMALIN-FIXED PARAFFIN-EMBEDDED TISSUE SPECIMEN Ordering Facility: [facility] Review Address: , , Result Comment: Outs miguel angel case from [place], [place] ([id number], collected 11/11/2023) A. Left cervix, biopsy: - Invasive squamous cell carcinoma, see comment. B. 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 Performed By: #### L [id number] #### [facility] CLIA [id number] [address] [place] [address] FINAL PERFORMING LAB Normal [facility] Comment on above: Order Comment: Speci men Type: FORMALIN-FIXED PARAFFIN-EMBEDDED TISSUE SPECIMEN Ordering Facility: [facility] Review Address: , , Result Comment: Diag nostic interpretation performed at [facility], [address] [place] [address] CLIA# [id number] Vice President Of News: Navdeep Pickering M.D. Performed By: #### L [id number] #### [facility] CLIA [id number] [address] [place] [address] [facility] Office Visiton 11-21-2023 Follow-up visit [id number] Kelby Johnson A 1955 F Date Provider Department Center 11/21/2023 GUERDA RYDER Family History Problem Relation Age of Onset Coronary artery disease Mother Cancer Father Diabetes Father Family Status - Relation Status Age at Mother Father Level of Service:37373 [place] OFFICE/OUTPATIENT ESTABLISHED LOW MDM 20 MIN Normal [facility] Orders Onlyon 11-21-2023 Orders Only [id number] Kelby Johnson 1955 F Date Provider Department Center 11/21/2023 MARV CASAREZ CARD [facility] Family History Problem Relation Age of Onset Coronary artery disease Mother Cancer Father Diabetes Father Family Status - Relation Status Age at Mother Father Normal [facility] Consultation Noteon 11-14-19 Consultation Note [id number]#[id number] IFF Normal [facility] Glucose,Whole Bloodon 2023 Glucose [Mass/Vol] 124 mg/dL High 65-105 [facility] Glucose [Mass/Vol] 87 mg/dL Normal 65-105 [facility] POC Glucose Fingerstickon Glucose [Mass/Vol] 124 mg/dL High 65 - 105 mg/dL [facility] Interpretation and review of laboratory results Abnormal [facility] Glucose [Mass/Vol] 87 mg/dL 65 - 105 mg/dL [facility] CBC with Auto Differentialon 11-11-2023 Basophils (Bld) [#/Vol] 0.03 10*3/uL [facility] Basophils/100 WBC (Bld) 0 % 0 - 2 % [facility] Eosinophils (Bld) [#/Vol] 0.31 10*3/uL [facility] Eosinophils/100 WBC (Bld) 5 % High 1 - 4 % [facility] Erythrocyte distribution width (RBC) [Ratio] 16.1 [...] granulocytes/100 WBC (Bld) 1 % High 0 [facility] Interpretation and review of laboratory results Abnormal [facility] Lymphocytes/100 WBC (Bld) 18 % Low 24 - 43 % [facility] Lymphocytes/100 WBC (Bld) 1.19 % [facility] MCH (RBC) [Entitic mass] 27.4 pg 25.2 - 33.5 pg [facility] MCHC (RBC) [Mass/Vol] 28.5 g/dL 28.4 - 34.8 g/dL [facility] MCV (RBC) [Entitic vol] 96.0 fL 82.6 - 102.9 fL [facility] Monocytes/100 WBC (Bld) 14 % High 3 - 12 % [facility] Monocytes/100 WBC (Bld) 0.91 % [facility] Neutrophils/100 WBC (Bld) 62 % 36 - 65 % [facility] Nucleated RBC/100 WBC (Bld) [Ratio] 0.0 % 0.0 per 100 WBC [facility] Platelet mean volume (Bld) [Entitic vol] 8.6 fL 8.1 - 13.5 fL [facility] Platelets (Bld) [#/Vol] 413 10*3/uL [facility] RBC (Bld) [#/Vol] 3.29 10*6/uL Low 3.95 - 5.1 1 m/uL [facility] RBC (Bld) [#/Vol] ANISOCYTOSIS PRESENT [facility] Segmented neutrophils/100 WBC (Bld) 4.27 % [facility] WBC other (Bld) [#/Vol] 6.8 [facility] CBC with Diffon 11-11-2023 Abs. Basophil 0.03 k/uL Normal 0.00-0.20 [facility] Comment on above: Performed By: #### C P, CDP #### [employer] [address] [place] [address] Gymnastics Coach: Guillaume Roman MD Abs.Imm.Granulocyte 0.04 k/uL Normal 0.00-0.30 [facility] Comment on above: Performed By: #### C P, CDP #### [facility] [address] [place], [place] [id number] Gymnastics Coach: Guillaume Roman MD Abs.Neutrophil (Seg) 4.27 k/uL Normal 1.50-8.[address] [facility] Comment on above: Performed By: #### C P, CDP #### [address] [address] Gymnastics Coach: Guillaume Roman MD Basophils/100 WBC (Bld) 0 % Normal 0-2 [facility] Comment on above: Performed By: #### C P, CDP #### [address] [address] Gymnastics Coach: Guillaume Roman MD Eosinophils (Bld) [#/Vol] 0.31 10*3/uL Normal 0.00-0.44 [facility] Comment on above: Performed By: #### C P, CDP #### [place] [address] Gymnastics Coach: Guillaume Roman MD Eosinophils/100 WBC (Bld) 5 % High 1-4 [facility] Comment on above: Performed By: #### C P, CDP #### [address] [address] Gymnastics Coach: Guillaume Roman MD Erythrocyte distribution width (RBC) [Ratio] 16.1 % High 11.8-14.4 [facility] Comment on above: Performed By: #### C P, CDP #### [address] [address] Gymnastics Coach: Guillaume Roman MD Hematocrit (Bld) [Volume fraction] 31.6 % Low 36.3-47.1 [facility] Comment on above: Performed By: #### C P, CDP #### [address] [address] Gymnastics Coach: Guillaume Roman MD Hemoglobin (Bld) [Mass/Vol] 9.0 g/dL Low 11.9-15.1 [facility] Comment on above: Performed By: #### C P, CDP #### [address] [address] Gymnastics Coach: Guillaume Roman MD Immature granulocytes/100 WBC (Bld) 1 % High 0 [facility] Comment on above: Performed By: #### C P, CDP #### [address] [address] Gymnastics Coach: Guillaume Roman MD Lymphocytes (Bld) [#/Vol] 1.19 10*3/uL Normal 1.10-3.70 [facility] Comment on above: Performed By: #### C P, CDP #### [address] [address] Gymnastics Coach: Guillaume Roman MD Lymphocytes/100 WBC (Bld) 18 % Low 24-43 [facility] Comment on above: Performed By: #### C P, CDP #### [address] [address] Gymnastics Coach: Guillaume Roman MD MCH (RBC) [Entitic mass] 27.4 pg Normal 25.2-33.5 [facility] Comment on above: Performed By: #### C P, CDP #### [place] [address] Gymnastics Coach: Guillaume Roman MD MCHC (RBC) [Mass/Vol] 28.5 g/dL Normal 28.4-34.8 [facility] Comment on above: Performed By: #### C P, CDP #### [address] [address] Gymnastics Coach: Guillaume Roman MD MCV (RBC) [Entitic vol] 96.0 fL Normal 82.6-102.9 [facility] Comment on above: Performed By: #### C P, CDP #### [address] [address] Gymnastics Coach: Guillaume Roman MD Monocytes (Bld) [#/Vol] 0.91 10*3/uL Normal 0.10-1.20 [facility] Comment on above: Performed By: #### C P, CDP #### [address] [address] Gymnastics Coach: Guillaume Roman MD Monocytes/100 WBC (Bld) 14 % High 3-12 [facility] Comment on above: Performed By: #### C P, CDP #### [address] [address] Gymnastics Coach: Guillaume Roman MD Neutrophil (Seg) 62 % Normal 36-[address] [facility] Comment on above: Performed By: #### C P, CDP #### [address] [address] Gymnastics Coach: Guillaume Roman MD NRBC Automated 0.0 per 100 WBC Normal 0.0 [facility] Comment on above: Performed By: #### C P, CDP #### [address] [address] Gymnastics Coach: Guillaume Roman MD Platelet mean volume (Bld) [Entitic vol] 8.6 fL Normal 8.1-13.5 [facility] Comment on above: Performed By: #### C P, CDP #### [address] [address] Gymnastics Coach: Guillaume Roman MD Platelets (Bld) [#/Vol] 413 10*3/uL Normal 138-453 [facility] Comment on above: Performed By: #### C P, CDP #### [address] [address] Gymnastics Coach: Guillaume Roman MD RBC (Bld) [#/Vol] 3.29 10*6/uL Low 3.95-5.11 [facility] Comment on above: Performed By: #### C P, CDP #### [address] [address] Gymnastics Coach: Guillaume Roman MD RBC morphology finding Nom (Bld) ANISOCYTOSIS PRESENT Normal [facility] Comment on above: Performed By: #### C P, CDP #### [address] [address] Gymnastics Coach: Guillaume Roman MD WBC (Bld) [#/Vol] 6.8 10*3/uL Normal 3.5-11.3 [facility] Comment on above: Performed By: #### C P, CDP #### [address] [address] Gymnastics Coach: Guillaume Roman MD Comp Metabolic Profon 2023 Albumin [Mass/Vol] 3.6 g/dL Normal 3.5-5.2 [facility] Comment on above: Performed By: #### C P, CDP #### [address] [address] Gymnastics Coach: Guillaume Roman MD Albumin/Glob Ratio 2.0 Normal 1.0-2.5 [facility] Comment on above: Performed By: #### C P, CDP #### [address] [address] Gymnastics Coach: Guillaume Roman MD Alkaline Phos 93 U/L Normal 35-104 [facility] Comment on above: Performed By: #### C P, CDP #### [address] [address] Gymnastics Coach: Guillaume Roman MD ALT [Catalytic activity/Vol] 14 U/L Normal 10-35 [facility] Comment on above: Performed By: #### C P, CDP #### [facility] [address] [place] [address] Gymnastics Coach: Guillaume Roman MD Anion gap [Moles/Vol] 10 mmol/L Normal 9-16 [facility] Comment on above: Performed By: #### C P, CDP #### [address] [address] Gymnastics Coach: Guillaume Roman MD AST [Catalytic activity/Vol] 33 U/L Normal 10-35 [facility] Comment on above: Performed By: #### C P, CDP #### [address] [address] Gymnastics Coach: Guillaume Roman MD Bilirubin [Mass/Vol] 0.3 mg/dL Normal 0.00-1.[address] [facility] Comment on above: Performed By: #### C P, CDP #### [address] [address] Gymnastics Coach: Guillaume Roman MD Calcium [Mass/Vol] 8.8 mg/dL Normal 8.6-10.4 [facility] Comment on above: Performed By: #### C P, CDP #### [address] [address] Gymnastics Coach: Guillaume Roman MD Chloride [Moles/Vol] 109 mmol/L High 98-[address] [facility] Comment on above: Performed By: #### C P, CDP #### [address] [address] Gymnastics Coach: Guillaume Roman MD CO2 [Moles/Vol] 19 mmol/L Low 20-31 [facility] Comment on above: Performed By: #### C P, CDP #### [address] [address] Gymnastics Coach: Guillaume Roman MD Creatinine [Mass/Vol] 1.0 mg/dL High 0.50-0.90 [facility] Comment on above: Performed By: #### C P, CDP #### [address] [address] Gymnastics Coach: Guillaume Roman MD GFR/1.73 sq M.predicted among non-blacks MDRD (S/P/Bld) [Vol rate/Area] 59 mL/min/{1.73_m2} Low >60 [facility] Comment on above: Result Comment: These [...] Performed By: #### C P, CDP #### [address] [address] Gymnastics Coach: Guillaume Roman MD Glucose [Mass/Vol] 97 mg/dL Normal 74-99 [facility] Comment on above: Performed By: #### C P, CDP #### [address] [address] Gymnastics Coach: Guillaume Roman MD Potassium [Moles/Vol] 4.3 mmol/L Normal 3.7-5.3 [facility] Comment on above: Result Comment: SPEC IMEN SLIGHTLY HEMOLYZED, RESULTS MAY BE ADVERSELY AFFECTED. Performed By: #### C P, CDP #### [address] [address] Gymnastics Coach: Guillaume Roman MD Protein [Mass/Vol] 5.4 g/dL Low 6.6-8.7 [facility] Comment on above: Performed By: #### C P, CDP #### [address] [id number] Gymnastics Coach: Guillaume Roman MD Sodium [Moles/Vol] 138 mmol/L Normal 136-145 [facility] Comment on above: Performed By: #### C P, CDP #### [facility] [address] [place], [place] [id number] Gymnastics Coach: Guillaume Roman MD Urea nitrogen [Mass/Vol] 11 mg/dL Normal 8-23 [facility] Comment on above: Performed By: #### C P, CDP #### [facility] [address] [place] [address] Gymnastics Coach: Guillaume Roman MD Comprehensive Metabolic Pane [facility] 11-11-2023 Albumin [Mass/Vol] 3.6 g/dL 3.5 - 5.2 g/dL [facility] Albumin/Globulin [Mass ratio] 2.0 {ratio} 1.0 - 2.5 [facility] ALP [Catalytic activity/Vol] 93 U/L 35 - 104 U/L [facility] ALT [Catalytic activity/Vol] 14 U/L 10 - 35 U/L [facility] Anion gap [Moles/Vol] 10 mmol/L 9 - 16 mmol/L [facility] AST [Catalytic activity/Vol] 33 U/L 10 - 35 U/L [facility] Bilirubin [Mass/Vol] 0.3 mg/dL 0.00 - 1.20 mg/dL [facility] Calcium [Mass/Vol] 8.8 mg/dL 8.6 - 10. 4 mg/dL [facility] Chloride [Moles/Vol] 109 mmol/L High 98 - 10 7 mmol/L [facility] CO2 [Moles/Vol] 19 mmol/L Low 20 - 31 mmol/L [facility] Creatinine [Mass/Vol] 1.0 mg/dL High 0.50 - 0.90 mg/dL [facility] Est, Glom Filt Rate 59 Low - [facility] Comment on above: These results are [...] [Mass/Vol] 97 mg/dL 74 - 99 mg/dL [facility] Interpretation and review of laboratory results Abnormal [facility] Potassium [Moles/Vol] 4.3 mmol/L 3.7 - 5.3 mmol/L [facility] Comment on above: SPECIMEN SLIGHTLY HE MOLYZED, RESULTS MAY BE ADVERSELY AFFECTED. Protein [Mass/Vol] 5.4 g/dL Low 6.6 - 8.7 g/dL [facility] Sodium [Moles/Vol] 138 mmol/L 136 - 145 mmol/L [facility] Urea nitrogen [Mass/Vol] 11 mg/dL 8 - 23 mg/dL [facility] Consultation Noteon 11-11-19 24 Consultation Note [id number]#1.00T IFF Normal [facility] EKG 12 LeadOrdered By: Butch Nascimento on 11-11-2023 Atrial Rate 62 BPM [facility] Work Phone: P [place] 40 degrees [facility] Work Phone: P-R Interval 168 ms [facility] Work Phone: Q-T Interval 404 ms [facility] Work Phone: QTc Calculation (Bazett) 410 ms [facility] Work Phone: R [place] 6 degrees [facility] Work Phone: T [place] 20 degrees [facility] Work Phone: Ventricular Rate 62 BPM [employer] Work Phone: EKG 12 Leadon 11-11-2023 Normal sinus rhythm Cannot rule out Anterior infarct , age undetermined Abnormal ECG No previous ECGs available [facility] STWily Walter MD / Butch Nascimento MD - 11/11/2023 Normal sinus rhythm Cannot rule out Anterior infarct , age undetermined Abnormal ECG No previous ECGs available [facility] SECE[facility] Atrial Rate 65 BPM [facility] P [place] 42 degrees [facility] P-R Interval 172 ms [facility] Q-T Interval 406 ms [facility] [employer] QTc Calculation (Bazett) 422 ms [facility] R [place] 7 degrees [facility] T [place] 19 degrees [facility] Ventricular Rate 65 BPM [facility] [employer] Normal sinus rhythm Normal ECG When compared with ECG of 10-NOV-2023 04:31, No significant change was found [facility] STWily Walter MD / Butch Nascimento MD - 11/11/2023 Normal sinus rhythm Normal ECG When compared with ECG of 10-NOV-2023 04:31, No significant change [facility] [employer] Glucose,Whole Bloodon 2023 Glucose [Mass/Vol] 120 mg/dL High 65-105 [facility] Glucose [Mass/Vol] 92 mg/dL Normal 65-105 [facility] Glucose [Mass/Vol] 83 mg/dL Normal 65-105 [facility] Glucose [Mass/Vol] 83 mg/dL Normal 65-105 [facility] Glucose [Mass/Vol] 88 mg/dL Normal 65-105 [facility] No Panel InformationOrdered By: Butch Nascimento on 11-11-2023 QRS Duration 86 ms [employer] [facility] [employer] Work Phone: [employer] [facility] [employer] Work Phone: POC Glucose Fingerstickon Glucose [Mass/Vol] 120 mg/dL High 65 - 105 mg/dL [facility]K [employer] Interpretation and review of laboratory results Abnormal [facility] [employer] Glucose [Mass/Vol] 92 mg/dL 65 - 105 mg/dL [facility] Glucose [Mass/Vol] 83 mg/dL 65 - 105 mg/dL [facility] Glucose [Mass/Vol] 83 mg/dL 65 - 105 mg/dL [facility] Glucose [Mass/Vol] 88 mg/dL 65 - 105 mg/dL [facility] RAD - MRI Reporton RAD - MRI Report [id number] IFF Normal [facility] Surgical Pathology Reporton 11-11-2023 Surgical Pathology Report (NOTE) [id number] [employer] CONSULTING PATHOLOGISTS [facility] ANATOMIC PATHOLOGY [address] [place] [address]. [place], [place] [address] SURGICAL PATHOLOGY CONSULTATION Patient Name: A[facility] Rec: [id number] Path Number: [id number] Collected: 11/11/2023 Received: 11/14/2023 Reported: 11/17/2023 08:30 [...] JAYASHREE AVILEZ, BLOCK [address] WAS SENT TO [facility] FOR PD-L1 EXPRESSION TESTING. THE RESULTS ARE FOLLOWS: PD-L1 EXPRESSION: POSITIVE TUMOR PROPORTION SCORE (TPS): 15% COMBINED POSITIVE SCORE (CPS): 17 PLEASE SEE [facility] COMPLETE REPORT ([id number]) FOR DETAILS. Candy Banegas Clinical Information Pre-Op [...] squamous carcinoma. Control reacts as expected. Normal [facility] BLOOD BANK SPECIMENon 2023 [facility] CBC with Auto Differentialon 11-10-2023 Basophils (Bld) [#/Vol] [facility] Basophils/100 WBC (Bld) 0 % 0 - 2 % [facility] Eosinophils (Bld) [#/Vol] 0.03 10*3/uL [facility] Eosinophils/100 WBC (Bld) 0 % Low 1 - 4 % [facility] Erythrocyte distribution width (RBC) [Ratio] 15.9 % High 11.8 - 14.4 % [facility] Hematocrit (Bld) [Volume fraction] 29.5 % Low 36.3 - 47.1 % [facility] Hemoglobin (Bld) [Mass/Vol] 8.7 g/dL Low 11.9 - 15.1 g/dL [facility] Immature granulocytes (Bld) [#/Vol] 0.06 10*3/uL [facility] Immature granulocytes/100 WBC (Bld) 1 % High 0 [facility] Interpretation and review of laboratory results Abnormal [facility] Lymphocytes/100 WBC (Bld) 10 % Low 24 - 43 % [facility] Lymphocytes/100 WBC (Bld) 0.86 % Low [facility] MCH (RBC) [Entitic mass] 26.9 pg 25.2 - 33.5 pg [facility] MCHC (RBC) [Mass/Vol] 29.5 g/dL 28.4 - 34.8 g/dL [facility] MCV (RBC) [Entitic vol] 91.3 fL 82.6 - 102.9 fL [facility] Monocytes/100 WBC (Bld) 9 % 3 - 12 % [facility] Monocytes/100 WBC (Bld) 0.72 % [facility] Neutrophils/100 WBC (Bld) 80 % High 36 - 65 % [facility] Nucleated RBC/100 WBC (Bld) [Ratio] 0.0 % 0.0 per 100 WBC [facility] Platelet mean volume (Bld) [Entitic vol] 8.5 fL 8.1 - 13.5 fL [facility] Platelets (Bld) [#/Vol] 389 10*3/uL [facility] RBC (Bld) [#/Vol] 3.23 10*6/uL Low 3.95 - 5.1 1 m/uL [facility] RBC (Bld) [#/Vol] ANISOCYTOSIS PRESENT [facility] Segmented neutrophils/100 WBC (Bld) 6.82 % [facility] WBC other (Bld) [#/Vol] 8.5 [facility] CBC with Diffon 11-10-2023 Abs. Basophil <0.03 Normal 0.00-0.20 [facility] Comment on above: Performed By: #### C DP GLYHGB #### [employer] [facility] [place] [address] Gymnastics Coach: Guillaume Roman MD Abs.Imm.Granulocyte 0.06 k/uL Normal 0.00-0.30 [facility] Comment on above: Performed By: #### C DP GLYHGB #### [address] [address] Gymnastics Coach: Guillaume Roman MD Abs.Neutrophil (Seg) 6.82 k/uL Normal 1.50-8.[address] [facility] Comment on above: Performed By: #### C DP, GLYHGB #### [address] [address] Gymnastics Coach: Guillaume Roman MD Basophils/100 WBC (Bld) 0 % Normal 0-2 [facility] Comment on above: Performed By: #### C DP, GLYHGB #### [address] [address] Gymnastics Coach: Guillaume Roman MD Eosinophils (Bld) [#/Vol] 0.03 10*3/uL Normal 0.00-0.44 [facility] Comment on above: Performed By: #### C DP, GLYHGB #### [address] [address] Gymnastics Coach: Guillaume Roman MD Eosinophils/100 WBC (Bld) 0 % Low 1-4 [facility] Comment on above: Performed By: #### C DP, GLYHGB #### [address] [address] Gymnastics Coach: Guillaume Roman MD Erythrocyte distribution width (RBC) [Ratio] 15.9 % High 11.8-14.4 [facility] Comment on above: Performed By: #### C DP, GLYHGB #### [address] [address] Gymnastics Coach: Guillaume Roman MD Hematocrit (Bld) [Volume fraction] 29.5 % Low 36.3-47.1 [facility] Comment on above: Performed By: #### C DP, GLYHGB #### [facility] [employer] [address] [place] [address] [place] [address] Gymnastics Coach: Guillaume Roman MD Hemoglobin (Bld) [Mass/Vol] 8.7 g/dL Low 11.9-15.1 [facility] Comment on above: Performed By: #### C DP, GLYHGB #### [address] [address] Gymnastics Coach: Guillaume Roman MD Immature granulocytes/100 WBC (Bld) 1 % High 0 [facility] Comment on above: Performed By: #### C DP, GLYHGB #### [address] [address] Gymnastics Coach: Guillaume Roman MD Lymphocytes (Bld) [#/Vol] 0.86 10*3/uL Low 1.10-3.70 [facility] Comment on above: Performed By: #### C DP, GLYHGB #### [address] [address] Gymnastics Coach: Guillaume Roman MD Lymphocytes/100 WBC (Bld) 10 % Low 24-43 [facility] Comment on above: Performed By: #### C DP, GLYHGB #### [address] [address] Gymnastics Coach: Guillaume Roman MD MCH (RBC) [Entitic mass] 26.9 pg Normal 25.2-33.5 [facility] Comment on above: Performed By: #### C DP, GLYHGB #### [facility] [address] [place] [address] Gymnastics Coach: Guillaume Roman MD MCHC (RBC) [Mass/Vol] 29.5 g/dL Normal 28.4-34.8 [facility] Comment on above: Performed By: #### C DP, GLYHGB #### [address] [address] Gymnastics Coach: Guillaume Roman MD MCV (RBC) [Entitic vol] 91.3 fL Normal 82.6-102.9 [facility] Comment on above: Performed By: #### C DP, GLYHGB #### [address] [address] Gymnastics Coach: Guillaume Roman MD Monocytes (Bld) [#/Vol] 0.72 10*3/uL Normal 0.10-1.20 [facility] Comment on above: Performed By: #### C DP, GLYHGB #### [address] [address] Gymnastics Coach: Guillaume Roman MD Monocytes/100 WBC (Bld) 9 % Normal 3-12 [facility] Comment on above: Performed By: #### C DP, GLYHGB #### [address] [address] Gymnastics Coach: Guillaume Roman MD Neutrophil (Seg) 80 % High 36-[address] [facility] Comment on above: Performed By: #### C DP, GLYHGB #### [address] [address] Gymnastics Coach: Guillaume Roman MD NRBC Automated 0.0 per 100 WBC Normal 0.0 [facility] Comment on above: Performed By: #### C DP, GLYHGB #### [address] [address] Gymnastics Coach: Guillaume Roman MD Platelet mean volume (Bld) [Entitic vol] 8.5 fL Normal 8.1-13.5 [facility] Comment on above: Performed By: #### C DP, GLYHGB #### [address] [address] Gymnastics Coach: Guillaume Roman MD Platelets (Bld) [#/Vol] 389 10*3/uL Normal 138-453 [facility] Comment on above: Performed By: #### C DP, GLYHGB #### [facility] [address] [place] [address] Gymnastics Coach: Guillaume Roman MD RBC (Bld) [#/Vol] 3.23 10*6/uL Low 3.95-5.11 [facility] Comment on above: Performed By: #### C DP, GLYHGB #### [facility] [address] [place] [address] Gymnastics Coach: Guillaume Roman MD RBC morphology finding Nom (Bld) ANISOCYTOSIS PRESENT Normal [facility] Comment on above: Performed By: #### C DP, GLYHGB #### [facility] [address] [place] [address] Gymnastics Coach: Guillaume Roman MD WBC (Bld) [#/Vol] 8.5 10*3/uL Normal 3.5-11.3 [facility] Comment on above: Performed By: #### C DP, GLYHGB #### [facility] [address] [place] [address] Gymnastics Coach: Guillaume Roman MD CT HEAD WO CONTRASTon [...] True Mccall MD 11/10/23 Final result Normal [facility] CT Head WO contraston 2023 No acute intracrania l abnormality. [facility] EXAMINATION: CT OF THE HEAD WITHOUT [...] of the visualized skull or soft tissues. [facility] True Mccall MD - 11/10/2023 EXAMINATION: [...] soft tissues. IMPRESSION: No acute intracranial abnormality. [facility] Radiology Study observation (narrative) [facility] CT Head WO contrastOrdered B y: True Mccall on 11-10-2023 [facility] Work Phone: Comp Metabolic Pr/rfx MGon 0 11-10-2023 Albumin [Mass/Vol] 3.5 g/dL Normal 3.5-5.2 [facility] Comment on above: Performed By: #### R EJEC, CMPX, LIPR ####[facility] [address] [place], [place] [phone] Director: Guillaume Roman MD Albumin/Glob Ratio 2.0 Normal 1.0-2.5 [facility] Comment on above: Performed By: #### R EJEC, CMPX, LIPR ####[facility] [address] [place], [place] [phone] Director: Guillaume Roman MD Alkaline Phos 85 U/L Normal 35-104 [facility] Comment on above: Performed By: #### R EJEC, CMPX, LIPR ####[facility] [address] [place], [place] [phone] Director: Guillaume Roman MD ALT [Catalytic activity/Vol] 9 U/L Low 10-35 [facility] Comment on above: Performed By: #### R EJEC, CMPX, LIPR ####[facility] [address] [place], [place] [phone] Director: Guillaume Roman MD Anion gap [Moles/Vol] 12 mmol/L Normal 9-16 [facility] Comment on above: Performed By: #### R EJEC, CMPX, LIPR ####[facility] [address] [place], [place] [phone] Director: Guillaume Roman MD AST [Catalytic activity/Vol] 20 U/L Normal 10-35 [facility] Comment on above: Performed By: #### R EJEC, CMPX, LIPR ####[facility] [address] [place], [place] [phone] Director: Guillaume Roman MD Bilirubin [Mass/Vol] 0.2 mg/dL Normal 0.00-1.[address] [facility] Comment on above: Performed By: #### R EJEC, CMPX, LIPR ####[facility] [address] [place], [place] [address])[phone] Director: Guillaume Roman MD Calcium [Mass/Vol] 8.4 mg/dL Low 8.6-10.4 [facility] Comment on above: Performed By: #### R EJEC, CMPX, LIPR ####[facility] [address] [place], [place] [phone] Director: Guillaume Roman MD Chloride [Moles/Vol] 108 mmol/L High 98-[address] [facility] Comment on above: Performed By: #### R EJEC, CMPX, LIPR ####[facility] [address] [place], [place] [phone] Director: Guillaume Roman MD CO2 [Moles/Vol] 17 mmol/L Low 20-31 [facility] Comment on above: Performed By: #### R EJEC, CMPX, LIPR ####[facility] [address] [place], [place] [phone] Director: Guillaume Roman MD Creatinine [Mass/Vol] 0.9 mg/dL Normal 0.50-0.90 [facility] Comment on above: Performed By: #### R EJEC, CMPX, LIPR ####[facility] [address] [place], [place] [phone] Director: Guillaume Roman MD GFR/1.73 sq M.predicted among non-blacks MDRD (S/P/Bld) [Vol rate/Area] 66 mL/min/{1.73_m2} Normal >60 [facility] Comment on above: Result Comment: These [...] Performed By: #### R FREDO CMPX, LIPR ####[facility] [address] [place], [place] [address])[phone] Director: Guillaume Roman MD Glucose [Mass/Vol] 99 mg/dL Normal 74-99 [facility] Comment on above: Performed By: #### R KELLEEC, CMPX, LIPR ####[facility] [address] [place], [place] [address])[phone] Director: Guillaume Roman MD Potassium [Moles/Vol] 4.5 mmol/L Normal 3.7-5.3 [facility] Comment on above: Result Comment: SPEC IMEN SLIGHTLY HEMOLYZED, RESULTS MAY BE ADVERSELY AFFECTED. Performed By: #### R EJECALIZAX, LIPR ####[facility] [address] [place] [address])[phone] Director: Guillaume Roman MD Protein [Mass/Vol] 5.0 g/dL Low 6.6-8.7 [facility] Comment on above: Performed By: #### R EJEC, CMPX, LIPR ####[facility] [address] [place], [place] [address])[phone] Director: Guillaume Roman MD Sodium [Moles/Vol] 137 mmol/L Normal 136-145 [facility] Comment on above: Performed By: #### R EJEC, CMPX, LIPR ####[facility] [address] [place] [address] Lab Director: Guillaume Roman MD Urea nitrogen [Mass/Vol] 10 mg/dL Normal 8-23 [facility] Comment on above: Performed By: #### R EJEC, CMPX, LIPR ####[facility] [address] [place] [address] lab Director: Guillaume Roman MD Comprehensive Metabolic Pane l w/ Reflex to MGon 11-10-2023 Albumin [Mass/Vol] 3.5 g/dL 3.5 - 5.2 g/dL [facility] Albumin/Globulin [Mass ratio] 2.0 {ratio} 1.0 - 2.5 [facility] ALP [Catalytic activity/Vol] 85 U/L 35 - 104 U/L [facility] ALT [Catalytic activity/Vol] 9 U/L Low 10 - 35 U/L [facility] Anion gap [Moles/Vol] 12 mmol/L 9 - 16 mmol/L [facility] AST [Catalytic activity/Vol] 20 U/L 10 - 35 U/L [facility] Bilirubin [Mass/Vol] 0.2 mg/dL 0.00 - 1.20 mg/dL [facility] Calcium [Mass/Vol] 8.4 mg/dL Low 8.6 - 10. 4 mg/dL [facility] Chloride [Moles/Vol] 108 mmol/L High 98 - 10 7 mmol/L [facility] CO2 [Moles/Vol] 17 mmol/L Low 20 - 31 mmol/L [facility] Creatinine [Mass/Vol] 0.9 mg/dL 0.50 - 0.90 mg/dL [facility] Est, Glom Filt Rate 66 - PINF [facility] Comment on above: These results are [...] [Mass/Vol] 99 mg/dL 74 - 99 mg/dL [facility] Interpretation and review of laboratory results Abnormal [facility] Potassium [Moles/Vol] 4.5 mmol/L 3.7 - 5.3 mmol/L [facility] Comment on above: SPECIMEN SLIGHTLY HE MOLYZED, RESULTS MAY BE ADVERSELY AFFECTED. Protein [Mass/Vol] 5.0 g/dL Low 6.6 - 8.7 g/dL [facility] Sodium [Moles/Vol] 137 mmol/L 136 - 145 mmol/L [facility] Urea nitrogen [Mass/Vol] 10 mg/dL 8 - 23 mg/dL [facility] Glucose,Whole Bloodon 2023 Glucose [Mass/Vol] 104 mg/dL Normal 65-105 [facility] Glucose [Mass/Vol] 86 mg/dL Normal 65-105 [facility] Glucose [Mass/Vol] 89 mg/dL Normal 65-105 [facility] Glucose [Mass/Vol] 91 mg/dL Normal 65-105 [facility] Hemoglobin A1Con 11-10-2023 Average glucose Estimated from glycated hemoglobin (Bld) [Mass/Vol] 82 mg/dL [facility] Comment on above: The ADA and AACC rec ommend providing the estimated average glucose result to permit better patient understanding of their HBA1c result. HbA1c (Bld) [Mass fraction] 4.5 % 4.0 - 6.0 % [facility] Glucose [Mass/Vol] 82 mg/dL Normal [facility] Comment on above: Result Comment: The ADA and AACC recommend providing the estimated average glucose result to permit better patient understanding of their HBA1c result. Performed By: #### C DP, GLYHGB #### [facility] [address] [place] [address] Gymnastics Coach: Guillaume Roman MD HbA1c (Bld) [Mass fraction] 4.5 % Normal 4.0-6.0 [facility] Comment on above: Performed By: #### C DP, GLYHGB #### [employer] [address] [place], [place] [phone] Gymnastics Coach: Guillaume Roman MD Lipid Panelon 11-10-2023 Cholesterol [Mass/Vol] 79 mg/dL 0 - 199 mg/dL [facility] [employer] Comment on above: Cholesterol Guidelines: <200 Desirable 200-240 Borderline >240 Undesirable Cholesterol in HDL [Mass/Vol] 55 mg/dL 40 - PINF mg/dL [facility] [employer] Comment on above: HDL Guidelines: <40 Undesirable 40-59 Borderline >59 Desirable Cholesterol in LDL [Mass/Vol] 11 mg/dL 0 - 100 mg/dL [facility] [employer] Comment on above: LDL Guidelines: <100 Desirable 100-129 Near to/above Desirable 130-159 Borderline >159 Undesirable Direct (measured) LDL and calculated LDL are not interchangeable tests. Cholesterol in VLDL [Mass/Vol] 13 mg/dL [facility] [employer] Cholesterol.total/Cho lesterol in HDL [Mass ratio] 1.0 {ratio} [facility] [employer] Triglyceride [Mass/Vol] 66 mg/dL NINF - 150 mg/dL [facility] [employer] [employer] Comment on above: Triglyceride Guidelines: <150 Desirable 150-199 Borderline 200-499 High >499 Very high Based on AHA Guidelines for fasting triglyceride, April 2012. Lipid Profileon 11-10-2023 Cholesterol [Mass/Vol] 79 mg/dL Normal 0-199 [facility] Comment on above: Result Comment: Cholesterol Guidelines: <200 Desirable 200-240 Borderline >240 Undesirable Performed By: #### R EJEC, CMPX, LIPR ####[employer] [address] [place] [address] Lab Director: Guillaume Roman MD Cholesterol in HDL [Mass/Vol] 55 mg/dL Normal >40 [facility] Comment on above: Result Comment: HDL Guidelines: <40 Undesirable 40-59 Borderline >59 Desirable Performed By: #### R EJEC, CMPX, LIPR ####[employer] [address] [place], [place] [phone] Lab Director: Guillaume Roman MD Cholesterol in LDL [Mass/Vol] 11 mg/dL Normal 0-100 [facility] Comment on above: Result Comment: LDL Guidelines: <100 Desirable 100-129 Near to/above Desirable 130-159 Borderline >159 Undesirable Direct (measured) LDL and calculated LDL are not interchangeable tests. Performed By: #### R EJEC, CMPX, LIPR ####[employer] [address] [place] [address] Lab Director: Guillaume Roman MD Cholesterol in VLDL [Mass/Vol] 13 mg/dL Normal [facility] Comment on above: Performed By: #### R EJEC, CMPX, LIPR ####[facility] [address] [place], [place] [phone] Director: Guillaume Roman MD Cholesterol.total/Cho lesterol in HDL [Mass ratio] 1.0 {ratio} Normal [facility] Comment on above: Performed By: #### R EJEC, CMPX, LIPR ####[facility] [address] [place] [address] Lab Director: Guillaume Roman MD Triglyceride [Mass/Vol] 66 mg/dL Normal <150 [facility] Comment on above: Result Comment: Triglyceride Guidelines: <150 Desirable 150-199 Borderline 200-499 High >499 Very high Based on AHA Guidelines for fasting triglyceride, April 2012. Performed By: #### R EJEC, CMPX, LIPR ####[facility] [address] [place], [place] [phone] Director: Guillaume Roman MD MR Pelvis WO [...] left greater than right, is likely metastatic. [facility] EXAMINATION: MRI OF [...] osseous structures are unremarkable. Minimal free fluid. [facility] Frank Deleon MD [...] left greater than right, is likely metastatic. [facility] Radiology Study observation (narrative) [facility] MR Pelvis WO and W contrast IVOrdered By: Frank Deleon on 11-10-2023 [facility] Work Phone: MRI PELVIS W WO [...] Frank Deleon MD 11/10/23 Final result Normal [facility] No Panel Informationon 11-09 [facility] [employer] POC Glucose Fingerstickon Glucose [Mass/Vol] 104 mg/dL 65 - 105 mg/dL [facility] [employer] [facility] Glucose [Mass/Vol] 86 mg/dL 65 - 105 mg/dL [facility] Glucose [Mass/Vol] 89 mg/dL 65 - 105 mg/dL [facility] Glucose [Mass/Vol] 91 mg/dL 65 - 105 mg/dL [facility] [employer] [facility] [employer] PREVIOUS SPECIMENon 11-10-19 24 [facility] [employer] Specimen Rejectionon 024 Reason for rejection Unable to perform testing: Specimen clotted. Normal [facility] Comment on above: Performed By: #### R EJEC, CMPX, LIPR ####[facility] [address] [place] [address] Lab Director: Guillaume Roman MD Source of sample .BLOOD Normal [facility] Comment on above: Performed By: #### R EJEC, CMPX, LIPR ####[facility] [address] [place], [place] [phone] Lab Director: Guillaume Roman MD Test ordered CDP, GLYHGB [facility] Comment on above: Performed By: #### R EJEC, CMPX, LIPR ####[facility] [address] [place], [place] [phone] lab Director: Guillaume Roman MD TYPE AND SCREENon 11-10-2023 ABO and Rh group Nom (Bld) Blood group O Rh(D) positive [facility] Arm Band Number [id number] [facility] Blood Bank Sample Expiration 11/13/2023,2359 [facility] Blood group antibodies identified Nom Negative [facility] Type + Screenon 11-10-2023 Type + Screen Sample Expiration 11/13/2023,2359 Arm Band Number [id number] ABO/Rh(D) O POSITIVE Antibody Screen NEGATIVE Normal [facility] Comment on above: Performed By: #### T YS #### [employer] [address] [place] [address] Gymnastics Coach: MD Rene Barros 11-09-2023 L Specimen: [id number] Received: 11/10/23 Status: [facility] Num: [id number] Spec Type: Surgical Subm Dr: Kobe Crespo Tissues: A Endometrium - Curettings (EMC) Procedures: HE/6, Gross/Micro L4 Age/ Patient Sex Location Account Attending Physician Candis Johnson 68/F LABELL [id number] Kobe Crespo SPEC NUM: [id number] RECD: 11/10/23 STATUS: [facility]ESS [place] NUM: [id number] NOY: 11/09/[address]: Kobe Crespo ENTERED: 11/10/23 [facility] DR: Angel Reynolds SPEC TYPE: Surgical DEPT: [...] uterus didelphys, vaginal stenosis, cervical stenosis Specimen: [id number] Received: 11/10/23 Status: TESS [place] Num: [id number] Spec Type: Surgical Subm Dr: Kobe Crespo Tissues: A Endometrium - Curettings (EMC) Procedures: GABRIEL/Noreen, Gross/Micro L4 Patient: Candis Johnson [id number] (Continued) Specimen: [id number] Received: 11/10/23 (Continued) Signed (signature on file) Jamarcus Chao MD 11/11/23 1448 Specimen: [id number] Received: 11/10/23 Status: [facility] [place] Num: [id number] Spec Type: Surgical Subm Dr: Kobe Crespo Tissues: A Endometrium - Curettings (EMC) Procedures: , Gross/Micro L4 Patient: ChristianpanchoFatimah franklinsusan Cuellar [id number] (Continued) Specimen: [id number] Received: 11/10/23 (Continued) CPT Codes 56943 Specimen: [id number] Received: 11/10/23 Status: TESS [place] Num: [id number] Spec Type: Surgical Subm Dr: Kobe Crespo Tissues: A Endometrium - Curettings (EMC) Procedures: GABRIEL/Noreen, Ginna/Ashley L4 Patient: Candis Johnson [id number] (Continued) Signed (signature on file) Jamarcus Chao MD 11/11/23 1448 Normal [facility] Lab Reportson 11-08-2023 Lab Reports [id number] IFF Normal [facility] Lab Reportson 11-07-2023 Lab Reports [id number] IFF Normal [facility] Consent for Procedure/Surger yon 10-14-2023 Consent for Procedure/Surgery [id number] IFF Normal [facility] Office Visiton 10-06-2023 Follow-up visit [id number] Kebly Johnson 1955 F Date Provider Department Center 10/06/2023 REBECCA VASQUEZ Family History Problem Relation Age of Onset Coronary artery disease Mother Cancer Father Diabetes Father Family Status - Relation Status Age at Mother Father Level of Service:39439 [place] OFFICE/OUTPATIENT ESTABLISHED MOD MDM 30 MIN Normal [facility] [place] [facility] Office Visiton 09-23-2023 Follow-up visit [id number] Ayala 1955 F Date Provider Department Center 09/23/2023 [id number] CHI Family History Problem Relation Age of Onset Coronary artery disease Mother Cancer Father Diabetes Father Family Status - Relation Status Age at Mother Father Level of Service:21397 [place] OFFICE/OUTPATIENT ESTABLISHED LOW MDM 20 MIN Reason for Visit and Comments: Follow-up [[id number]] - Concerns: Not much states some swelling in legs and some back back, chest pain seems to be getting better Normal [facility] Office Visiton 08-26-2023 Follow-up visit [id number] Kelby Johnson 1955 F Date Provider Department Center 08/26/2023 [id number] ROLAND Family History Problem Relation Age of Onset Coronary artery disease Mother Cancer Father Diabetes Father Family Status - Relation Status Age at Mother Father Level of Service:54668 [place] OFFICE/OUTPATIENT NEW MODERATE MDM 45 MINUTES Normal [facility] Consent for Procedure/Surger yon 08-24-2023 Consent for Procedure/Surgery [id number] IFF Normal [facility] Consent for Procedure/Surger yon 08-09-2023 Consent for Procedure/Surgery [id number]#1.00T IFF Normal [facility] Urine Cytology ([facility])on 0 08-09-2023 Urine Cytology Diagnosis Info Invalid Interpretation Code [facility] Comment on above: Result Comment: A:Ur ine,Urine:Voided Interpretation - MicroScopic Description - Adequacy - Gross Description Site ID:A color Dark Yellow fixative Alcohol Specimen designated Urine received in alcohol preservative and labeled with the patient?s name, consists of 110ml slightly cloudy dark yellow fluid. Electronically signed by : on: 08/09/2023 11:46:02 Performed By: #### 1 [id number] ####[facility] [address] [place] [address] Physician Referralon 024 Physician Referral [id number] TIFF Normal [facility] Screenson 08-04-2023 Screens [id number] FF Normal [facility] Urine Cytology ([facility])on 0 08-04-2023 UC Method of Extraction Voided Normal [facility] Comment on above: Performed By: #### 1 [id number] ####[facility] [address] [place] [address] UC Number of Jars 1 Invalid Interpretation Code [facility] Comment on above: Performed By: #### 1 [id number] ####[facility] [address] [place] [address] UC Specimen Urine Normal [facility] Comment on above: Performed By: #### 1 [id number] ####[facility] [address] [place] [address] Type of Service Technical Only Normal [facility] Comment on above: Performed By: #### 1 [id number] ####[facility] [address] [place] [address] Ambulatory Visit Summaryon 0 08-03-2023 Ambulatory Visit [...] the caus (more content not included)... Normal [facility] Home Recordson 08-03 Penitentiary Records [id number]#1.00T IFF Normal [facility] Patient Educationon 08-03-19 Patient Education [...] including vitamins, herbs, eye drops, creams, and qikv-bca-yhcjxyi medicines. ? Any problems you or family [...] care provider tells you to. ? Taking okew-dvi-nbincth medicines, vitamins, herbs, and supplements. General instructions [...] monitor (more content not included)... 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 *possible abnormality of urinary system. Ordered due to rectal bleeding. Pt is a new pt. Never before seen in our office. Pt is hard of hearing she can read lips and she has an nurses aid from her home ([facility]) CT abdomen pelvis wo/w con done @ [facility] on 06/06/23 She tried giving a urine [...] age Assessment/Plan 68 yo female resident of [facility] here for new patient evaluation of [...] cysto, if patient unable to submit from [facility] prior 3. Former smoker (Z87.891: Personal history of nicotine dependence) Smoked for a very little amount of time. 4. 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 Normal [facility] Comment on above: Result Comment: [...] by: RIVKA FRAZIER Date: 2022-07-05 15:47 Normal [facility] MG MAMM SCREEN 3D DERRICK CADon 05-14-2022 MG MAMM SCREEN 3D DERRICK CAD Patient: CANDIS JOHNSON Exam Date: 05/14/2022 : 1955 Gender:F Ordering : DR ANDER LANGLEY D.O. Admission #: [id number] Family : Order #: [id number] CLICK HERE TO VIEW EXAM RADIOLOGY REPORT [...] Treatments None Family Cancers None LOCATION: [facility] BREAST COMPOSITION: Almost entirely fatty. FINDINGS: DIAGNOSTIC [...] MD on 05/14/2022 at 12:49 Normal [facility] BNPon 03-07-2022 Natriuretic peptide B (Bld) [Mass/Vol] 115.0 pg/mL Normal <=900.0 [facility] Comment on above: Performed By: #### B DYNAMITE PACKING MACHINE OPERATOR, CMP, HSTROPN #### [facility] [address] [place] [address] Dr. Carl Zuñiga CBC AUTO DIFFon 03-07-2022 BASO # 0.0 103/ul Normal 0.0-0.1 [facility] Comment on above: Performed By: #### B DYNAMITE PACKING MACHINE OPERATOR, CMP, HSTROPN #### [facility] [address] [place] [address] Dr. Carl Zuñiga Basophils/100 WBC (Bld) 0.0 % Critically low 0.2-2.0 [facility] Comment on above: Performed By: #### B DYNAMITE PACKING MACHINE OPERATOR, CMP, HSTROPN #### [facility] [address] [place] [address] Dr. Carl Zuñiga EO # 0.1 103/ul Normal 0.0-0.7 [facility] Comment on above: Performed By: #### B DYNAMITE PACKING MACHINE OPERATOR, CMP, HSTROPN #### [facility] [address] [place] [address] Dr. Carl Zuñiga Eosinophils/100 WBC (Bld) 1.0 % Normal 0.9-7.0 [facility] Comment on above: Performed By: #### B DYNAMITE PACKING MACHINE OPERATOR, CMP, HSTROPN #### [facility] [address] [place] [address] Dr. Carl Zuñiga Erythrocyte distribution width (RBC) [Ratio] 13.7 % Normal 11.0-15.0 [facility] Comment on above: Performed By: #### B DYNAMITE PACKING MACHINE OPERATOR, CMP, HSTROPN #### [facility] [address] [place] [address] Dr. Carl Zuñiga Hematocrit (Bld) [Volume fraction] 40.8 % Normal 36.0-48.0 [facility] Comment on above: Performed By: #### B DYNAMITE PACKING MACHINE OPERATOR, CMP, HSTROPN #### [facility] [address] [place] [address] Dr. Carl Zuñiga Hemoglobin (Bld) [Mass/Vol] 13.1 g/dL Normal 12.0-16.0 [facility] Comment on above: Performed By: #### B DYNAMITE PACKING MACHINE OPERATOR, CMP, HSTROPN #### [facility] [address] [place] [address] Dr. Carl Zuñiga IG # 0.02 10e3/ul Normal 0.00-0.03 [facility] Comment on above: Performed By: #### B DYNAMITE PACKING MACHINE OPERATOR, CMP, HSTROPN #### [facility] [address] [place] [address] Dr. Carl Zuñiga IG % 0.3 % Normal 0.0-0.5 [facility] Comment on above: Performed By: #### B DYNAMITE PACKING MACHINE OPERATOR, CMP, HSTROPN #### [facility] [address] [place] [address] Dr. Carl Zuñiga LYMPH # 0.9 103/ul Critically low 1.2-3.8 [facility] Comment on above: Performed By: #### B DYNAMITE PACKING MACHINE OPERATOR, CMP, HSTROPN #### [facility] [address] [place] [address] Dr. Carl Zuñiga Lymphocytes/100 WBC (Bld) 13.9 % Critically low 20.5-60.0 [facility] Comment on above: Performed By: #### B DYNAMITE PACKING MACHINE OPERATOR, CMP, HSTROPN #### [facility] [address] [place] [address] Dr. Carl Zuñiga MANUAL DIFF REQ NO Normal [facility] Comment on above: Performed By: #### B DYNAMITE PACKING MACHINE OPERATOR, CMP, HSTROPN #### [facility] [address] [place] [address] Dr. Carl Zuñiga MCH (RBC) [Entitic mass] 30.8 pg Normal 26.7-34.0 [facility] Comment on above: Performed By: #### B DYNAMITE PACKING MACHINE OPERATOR, CMP, HSTROPN #### [facility] [address] [place] [address] Dr. Carl Zuñiga MCHC (RBC) [Mass/Vol] 32.1 g/dL Normal 29.9-35.2 [facility] Comment on above: Performed By: #### B DYNAMITE PACKING MACHINE OPERATOR, CMP, HSTROPN #### [facility] [address] [place] [address] Dr. Carl Zuñiga MCV (RBC) [Entitic vol] 96.0 fL Normal 81.0-99.0 [facility] Comment on above: Performed By: #### B DYNAMITE PACKING MACHINE OPERATOR, CMP, HSTROPN #### [facility] [address] [place] [address] Dr. Carl Zuñiga MONO # 0.6 103/ul Normal 0.3-0.8 [facility] Comment on above: Performed By: #### B DYNAMITE PACKING MACHINE OPERATOR, CMP, HSTROPN #### [facility] [address] [place] [address] Dr. Carl Zuñiga Monocytes/100 WBC (Bld) 9.2 % Normal 1.7-12.0 [facility] Comment on above: Performed By: #### B DYNAMITE PACKING MACHINE OPERATOR, CMP, HSTROPN #### [facility] [address] [place] [address] Dr. Carl Zuñiga NEUT # 5.1 103/ul Normal 1.4-6.5 [facility] Comment on above: Performed By: #### B DYNAMITE PACKING MACHINE OPERATOR, CMP, HSTROPN #### [facility] [address] [place] [address] Dr. Carl Zuñiga Neutrophils/100 WBC (Bld) 75.6 % Critically high 43.0-75.0 [facility] Comment on above: Performed By: #### B DYNAMITE PACKING MACHINE OPERATOR, CMP, HSTROPN #### [facility] [address] [place] [address] Dr. Carl Zuñiga Platelet mean volume (Bld) [Entitic vol] 8.5 fL Critically low 9.5-13.5 [facility] Comment on above: Performed By: #### B DYNAMITE PACKING MACHINE OPERATOR, CMP, HSTROPN #### [facility] [address] [place] [address] Dr. Carl Zuñiga PLT 206 103/ul Normal 150-450 [facility] Comment on above: Performed By: #### B DYNAMITE PACKING MACHINE OPERATOR, CMP, HSTROPN #### [facility] [address] [place] [address] Dr. Carl Zuñiga RBC 4.25 106/ul Normal 4.20-5.40 [facility] Comment on above: Performed By: #### B DYNAMITE PACKING MACHINE OPERATOR, CMP, HSTROPN #### [facility] [address] [place] [address] Dr. Carl Zuñiga WBC 6.7 103/ul Normal 4.0-11.0 [facility] Comment on above: Performed By: #### B DYNAMITE PACKING MACHINE OPERATOR, CMP, HSTROPN #### [facility] [address] [place] [address] Dr. Carl Zuñiga D-DIMERon 03-07-2022 D-DIMER <0.19 Normal <=0.59 [facility] Comment on above: Performed By: #### D DIM #### [facility] [address] [place] [address] Dr. Carl Zuñiga D-DIMER COMMENTS SEE BELOW Normal [facility] Comment on above: Result Comment: Incr [...] hospitalization. Performed By: #### D DIM #### [facility] [address] [place] [address] Dr. Carl Zuñiga PROF 14(COMP METB)on 022 Albumin [Mass/Vol] 3.9 g/dL Normal 3.4-5.0 [facility] Comment on above: Performed By: #### B DYNAMITE PACKING MACHINE OPERATOR, CMP, HSTROPN #### [facility] [address] [place] [address] Dr. Carl Zuñiga Albumin/Globulin [Mass ratio] 1.5 {ratio} Normal [facility] Comment on above: Performed By: #### B DYNAMITE PACKING MACHINE OPERATOR, CMP, HSTROPN #### [facility] [address] [place] [address] Dr. Carl Zuñiga ALP [Catalytic activity/Vol] 96 U/L Normal 46-116 [facility] Comment on above: Performed By: #### B DYNAMITE PACKING MACHINE OPERATOR, CMP, HSTROPN #### [facility] [address] [place] [address] Dr. Carl Zuñiga ALT [Catalytic activity/Vol] 38 U/L Normal 14-59 [facility] Comment on above: Performed By: #### B DYNAMITE PACKING MACHINE OPERATOR, CMP, HSTROPN #### [facility] [address] [place] [address] Dr. Carl Zuñiga Anion gap [Moles/Vol] 9.8 mmol/L Normal [facility] Comment on above: Performed By: #### B DYNAMITE PACKING MACHINE OPERATOR, CMP, HSTROPN #### [facility] [address] [address] [address] Carl Zuñiga AST [Catalytic activity/Vol] 16 U/L Normal 15-37 [facility] Comment on above: Performed By: #### B DYNAMITE PACKING MACHINE OPERATOR, CMP, HSTROPN #### [facility] [address] [address] [address] Carl Zuñiga Bilirubin [Mass/Vol] 0.5 mg/dL Normal 0.2-1.0 [facility] Comment on above: Performed By: #### B DYNAMITE PACKING MACHINE OPERATOR, CMP, HSTROPN #### [facility] [address] [place] [address] Dr. Carl Zuñiga Calcium [Mass/Vol] 9.2 mg/dL Normal 8.5-10.1 [facility] Comment on above: Performed By: #### B DYNAMITE PACKING MACHINE OPERATOR, CMP, HSTROPN #### [facility] [address] [place] [address] Dr. Carl Zuñiga Chloride [Moles/Vol] 103 mmol/L Normal 98-107 [facility] Comment on above: Performed By: #### B DYNAMITE PACKING MACHINE OPERATOR, CMP, HSTROPN #### [facility] [address] [place] [address] Dr. Carl Zuñiga CO2 [Moles/Vol] 29.1 mmol/L Normal 21.0-32.0 [facility] Comment on above: Performed By: #### B DYNAMITE PACKING MACHINE OPERATOR, CMP, HSTROPN #### [facility] [address] [place] [address] Dr. Carl Zuñiga Creatinine [Mass/Vol] 0.92 mg/dL Normal 0.55-1.02 [facility] Comment on above: Performed By: #### B DYNAMITE PACKING MACHINE OPERATOR, CMP, HSTROPN #### [facility] [address] [place] [address] Dr. Carl Zuñiga EGFR-AF SWEDISH >60 Normal >=60 [facility] Comment on above: Performed By: #### B DYNAMITE PACKING MACHINE OPERATOR, CMP, HSTROPN #### [facility] [address] [place] [address] Dr. Carl Zuñiga EGFR-NON AF SWEDISH >60 Normal >=60 [facility] Comment on above: Performed By: #### B DYNAMITE PACKING MACHINE OPERATOR, CMP, HSTROPN #### [facility] [address] [address] [address] Carl Zuñiga Globulin (S) [Mass/Vol] 2.6 g/dL Normal [facility] Comment on above: Performed By: #### B DYNAMITE PACKING MACHINE OPERATOR, CMP, HSTROPN #### [facility] [address] [address] [address] Carl Zuñiga Glucose [Mass/Vol] 109 mg/dL Critically high 74-106 T [facility] Comment on above: Performed By: #### B DYNAMITE PACKING MACHINE OPERATOR, CMP, HSTROPN #### [facility] [address] [place] [address] Dr. Carl Zuñiga Potassium [Moles/Vol] 3.9 mmol/L Normal 3.5-5.1 [facility] Comment on above: Performed By: #### B DYNAMITE PACKING MACHINE OPERATOR, CMP, HSTROPN #### [facility] [address] [place] [address] Dr. Carl Zuñiga Protein [Mass/Vol] 6.5 g/dL Normal 6.4-8.2 [facility] Comment on above: Performed By: #### B DYNAMITE PACKING MACHINE OPERATOR, CMP, HSTROPN #### [facility] [address] [place] [address] Dr. Carl Zuñiga Sodium [Moles/Vol] 138 mmol/L Normal 136-145 [facility] Comment on above: Performed By: #### B DYNAMITE PACKING MACHINE OPERATOR, CMP, HSTROPN #### [facility] [address] [place] [address] Dr. Carl Zuñiga Urea nitrogen [Mass/Vol] 14.0 mg/dL Normal 7.0-18.0 [facility] Comment on above: Performed By: #### B DYNAMITE PACKING MACHINE OPERATOR, CMP, HSTROPN #### [facility] [address] [place] [address] Dr. Carl Zuñiga Urea nitrogen/Creatinine [Mass ratio] 15.2 mg/mg Normal [facility] Comment on above: Performed By: #### B DYNAMITE PACKING MACHINE OPERATOR, CMP, HSTROPN #### [facility] [address] [place], [place] [address] Dr. Carl Zuñiga TROPONIN, HIGH SENSITIVITYon 03-07-2022 HSTROP 2.8 pg/mL Critically low 4.0-51.3 [facility] Comment on above: Result Comment: CUT- OFF POINTS HAVE BEEN ESTABLISHED BASED ON THE FOURTH UNIVERSAL DEFINITIONS OF MYOCARDIAL INFARCTION. THE UPPER REFERENCE LIMIT (URL) OF TROPONIN, DEFINED THE 99TH PERCENTILE OF cTnI DISTRIBUTION IN A REFERENCE POPULATION, HAS BEEN CONFIRMED THE DECISION THRESHOLD FOR MO DIAGNOSIS. Performed By: #### B DYNAMITE PACKING MACHINE OPERATOR, CMP, HSTROPN #### [facility] [address] [place], [place] [address] Dr. Carl Zuñiga XR CHEST 1 Von [...] DIANA BREAUX Date: 2022-03-07 10:05 Normal [facility] CT CSPINE WO CONon CT CSPINE WO [...] MARQUES PATEL Date: 2021-07-10 02:49 Normal [facility] CT HEAD WO CONon 07-10-2021 CT HEAD [...] by: MARQUES PATEL Date: 2021-07-10 02:44 Normal [facility] XR CHEST 1 Von [...] by: MARQUES PATEL Date: 2021-07-10 02:46 Normal [facility] XR PELVIS 1_2 VIEWSon [...] by: MARQUES PATEL Date: 2021-07-10 02:47 Normal [facility] Vital Signs Date Time Vital Sign Value Performing Clinician Carrol perez 12-07-2023 09:56-0400 Body weight 83.6 kg Laisha Coburn MD Work Phone: [facility] 12-07-2023 09:56-0400 Diastolic blood pressure 51 mm[Hg] Laisha Coburn MD Work Phone: [facility] 12-07-2023 09:56-0400 Heart rate 78 /min Laisha Coburn MD Work Phone: [facility] 12-07-2023 09:56-0400 Respiratory rate 17 /min Laisha Coburn MD Work Phone: [facility] 12-07-2023 09:56-0400 SaO2% (BldA) [Mass fraction] 99 % Laisha Coburn MD Work Phone: [facility] 12-07-2023 09:56-0400 Systolic blood pressure 98 mm[Hg] Laisha Coburn MD Work Phone: [facility] 11-28-2023 09:04-0400 Body temperature 97.7 [degF] El Ahmadi MD Work Phone: [facility] 11-28-2023 09:04-0400 Body weight 84.37 kg El Ahmadi MD Work Phone: [facility] 11-28-2023 09:04-0400 Diastolic blood pressure 78 mm[Hg] El Ahmadi MD Work Phone: [facility] 11-28-2023 09:04-0400 Heart rate 89 /min El Ahmadi MD Work Phone: [facility] 11-28-2023 09:04-0400 Respiratory rate 16 /min El Ahmadi MD Work Phone: [facility] 11-28-2023 09:04-0400 SaO2% (BldA) [Mass fraction] 99 % El Ahmadi MD Work Phone: [facility] 11-28-2023 09:04-0400 Systolic blood pressure 117 mm[Hg] El Ahmadi MD Work Phone: [facility] 11-12-2023 11:15-0400 Body temperature 97.9 [degF] Jayashree Avilez MD Work Phone: [facility] [email or web address] 11-12-2023 11:15-0400 Diastolic blood pressure 58 mm[Hg] Jayashree Avilez MD Work Phone: [facility] [email or web address] 11-12-2023 11:15-0400 Heart rate 74 /min Jayashree Avilez MD Work Phone: [facility] [email or web address] 11-12-2023 11:15-0400 Respiratory rate 18 /min Jayashree Avilez MD Work Phone: [facility] [email or web address] 11-12-2023 11:15-0400 SaO2% (BldA) [Mass fraction] 96 % Jayashree Avilez MD Work Phone: [facility] [email or web address] 11-12-2023 11:15-0400 Systolic blood pressure 116 mm[Hg] Jayashree Avilez MD Work Phone: [facility] [email or web address] 11-10-2023 03:41-0400 Body height 162.6 cm Jayashree Avilez MD Work Phone: [facility] [email or web address] 11-10-2023 03:41-0400 Body mass index (BMI) [Ratio] 33.34 kg/m2 Jayashree Avilez MD Work Phone: [facility] [email or web address] 11-10-2023 03:41-0400 Body weight 88.1 kg Jayashree Avilez MD Work Phone: [facility] [email or web address] 08-03-2023 08:23-0500 Blood Pressure Location Pamela Benson [facility] Encounters Encounter Date Encounter Type Care Provider Facility Start: 01-05-2024 End: 01-05-2024 ambulatory Edmond KUHN Facility:[id number] Start: 12-16-2023 End: 12-16-20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) Start: 12-02-2023 End: 12-02-2023 ambulatory EL AHMADI Facility:[facility] Start: 11-28-2023 End: 11-29-2023 ambulatory Nathalie [...] Dx) Start: 11-21-2023 End: 11-21-2023 ambulatory GUERDA [facility] Start: 11-17-2023 ambulatory Edmond Matias ty:[id number] Start: 11-10-2023 End: 11-12-2023 Evaluation and management of inpatient Jayashree Avilez MD Work Phone: [facility] Comment on above: Bleeding from the ge nitourinary system Start: 11-09-2023 End: 11-09-2023 ambulatory Kobe Cherie Facility:[facility] Start: 11-02-2023 End: 11-02-2023 ambulatory KOBE CHERIE Not Available Start: 10-06-2023 End: 10-06-2023 ambulatory REBECCA [facility] Start: 09-23-2023 End: 09-23-2023 ambulatory [facility] Start: 08-26-2023 End: 08-26-2023 ambulatory [facility] Start: 08-24-2023 End: 08-24-2023 ambulatory Pamela M. Lue Facility:[facility] Start: 08-24-2023 End: 08-24-2023 Off-Site Pamela M. Lue [facility] Start: 08-04-2023 End: 08-04-2023 ambulatory Pamela M. Lue Facility:[facility] Start: 08-04-2023 End: 08-04-2023 Lab Drop off Pamela M. Lue [facility] Start: 08-03-2023 End: 08-03-2023 ambulatory Pamela M. Lue Facility:[facility] Start: 08-03-2023 End: 08-03-2023 Patient encounter procedure [facility] Start: 07-27-2023 End: 07-27-2023 ambulatory KOBE [...] - S adam or Plasma Bernadette Metzger APRN.BOX OFFICE AGENT Work Phone: [phone] [facility] Plan of Treatment Date Care Activity Detail Author Start: 11-09-2028 Lipid panel [facility] Start: 11-10-2026 Diabetes Screening Diabetes Screenin g [facility] Start: 11-10-2024 GFR test (Diabetes, CKD 3-4, OR last GFR 15-59) GFR test (Diabetes, CKD 3-4, OR last GFR 15-59) [facility] Start: 03-11-2024 Influenza vaccination Influenz a Vaccine (Season Ended) [facility] Start: 02-09-2024 Influenza vaccination Flu vacc ine (Season Ended) [facility] Start: 01-16-2024 End: 12-27-2024 MR Pelvis WO and W contrast IV MRI FEMALE PELVIS WO/W IVCON Radiology Routine 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) Expected: 01/16/2024, Expires: 12/27/2024 [facility] Work Phone: Comment on above: Expected: 01/16/2024 , Expires: 12/27/2024 Start: 12-28-2023 End: 12-28-2023 ambulatory 12/28/2023 10:00 AM EDT Visit (SP) Office Gynecology Oncology [address] [place] [address] [place] [address] Mariam Mckinley MD [address] [place] [address] Vaginal Mass Gynecology Oncology Comment on above: [...] 1:00 PM EDT Office Visit Radiation Oncology [address] [place] [address] [place] [address] [place] [address] New Consult Radiation Oncology Comment on above: New Consult Start: 12-02-2023 End: 12-02-2023 Patient encounter procedure 12/02/2023 1:30 PM EDT Appointment Radiology Pet CT [address] [place] [address] pet [address] Pet [address] Comment on above: pet scan Start: 11-28-2023 End: 11-28-2023 Patient encounter procedure 11/28/2023 9:00 AM EDT Office Visit Radiation Oncology [address] [place] [address] El Ahmadi MD [address] [place] [address] Dr Jareth Natarajan cevical cancer Radiation Oncology Comment on above: Dr Jareth Natarajan cevical cancer Start: 11-11-2023 Annual Wellness Visi t (Medicare) Annual Wellness Visit (Medicare) [facility] Start: 07-11-2023 Advance Directive Discussion Advance Directive Discussion [facility] Start: 07-11-2023 Behavioral Health Screening Behavioral Health Screening [facility] Start: 03-11-2023 Covid-19 Vaccine ( season) Covid-19 Vaccine ( season) [facility] Start: 03-11-2023 Covid-19 Vaccine ( season) Covid-19 Vaccine ( season) [facility] Start: 03-11-2023 COVID-19 Vaccine ( season) COVID-19 Vaccine ( season) [facility] Start: 2020 Pneumococcal 65+ yea rs Vaccine (1 of 1 - PCV) Pneumococcal 65+ years Vaccine (1 of 1 - PCV) [facility] Start: 2020 Pneumococcal Vaccine : 65+ (1 of 1 - PCV) Pneumococcal Vaccine: 65+ (1 of 1 - PCV) [facility] Start: 2020 Screening for osteoporosis Bone Density Screening [facility] Start: 2015 Respiratory Syncytia l Virus (RSV) or age 60 yrs+ (1 - 1-dose 60+ series) Respiratory Syncytial Virus (RSV) or age 60 yrs+ (1 - 1-dose 60+ series) [facility] Start: 2015 RSV Vaccine (1 - 1-dose 60+ series) RSV Vaccine (1 - 1-dose 60+ series) [facility] Start: 2010 Screening for osteoporosis DEXA (modify frequency per FRAX score) [facility] Start: 2005 Screening for malignant neoplasm of breast Breast cancer screen [facility] Start: 2005 Shingles vaccine (1 of 2) Shingles vaccine (1 of 2) [facility] Start: 2005 Shingrix Vaccine (1 of 2) Shingrix Vaccine (1 of 2) [facility] Start: 2000 Screening for malignant neoplasm of colon [facility] Start: 1995 Screening for malignant neoplasm of breast Mammogram Screening [facility] Start: 1974 DTaP/Tdap/Td vaccine (1 - Tdap) DTaP/Tdap/Td vaccine (1 - Tdap) [facility] Start: 1974 Urine microalbumin profile DTaP,Tdap,Td Vaccine (1 - Tdap) [facility] Start: 1973 Hepatitis C screening B ON [email or web address] Start: 1967 Depression Screen Depression Screen [facility] [employer] Glucose [Mass/volume ] in Serum or Plasma [facility] [employer] Comment on above: 4X Daily (AC & HS) u ntil discontinued starting 11/10/2023 As Needed until disc ontinued starting 11/10/2023 OUTSIDE SURG PATH SLIDE REVIEW OUTSIDE SURG PATH SLIDE REVIEW Lab Routine High grade squamous intraepithelial lesion (HGSIL), grade 3 SUDHA, on biopsy of cervix Ordered: 11/23/2023 [facility] Work Phone: Comment on above: Ordered: 11/23/2023 Oxygen therapy [Minimum Data Set] Initiate Oxygen Therapy Protocol Respiratory Care Routine Daily until discontinued starting 11/10/2023 [facility] [email or web address] Comment on above: Daily until disconti nued starting 11/10/2023 End: 12-24-2024 PET+CT Guidance for localization of tumor of Skull base to mid-thigh-- W 18F-FDG IV NM PET/CT SKULL-THIGH INITIAL Radiology Routine 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) 1 Occurrences starting 11/25/2023 until 12/24/2024 [facility] Work Phone: Comment on above: 1 Occurrences starti ng 11/25/2023 until 12/24/2024 End: 11-10-2023 [facility] Comment on above: Once for 1 Occurrenc es starting 11/10/2023 until 11/10/2023 Surgical Pathology Surgical Path ology Lab Routine Bleeding from the genitourinary system Release Upon Ordering for 1 Occurrences starting 11/11/2023 [facility] [employer] Comment on above: Release Upon Orderin g for 1 Occurrences starting 11/11/2023 Immunizations Immunization Date Immunization Notes Care Provider Jairo burton 05-27-2022 SARS-CoV-2 (COVID-19 ) [id number] Pamela Benson [facility] 06-12-2021 SARS-CoV-2 (COVID-19 ) mRNA BNT-162b2 vax Pamela Lue [facility] 08-13-2020 SARS-CoV-2 (COVID-19 ) mRNA BNT-162b2 vax Pamela Lue [facility] Comment on above: Result Comment: 2023: [id number] 07-23-2020 SARS-CoV-2 (COVID-19 ) mRNA BNT-162b2 vax Pamela Lue [facility] Comment on above: Result Comment: 2023: [id number] Payers Date Payer Category Payer Self-pay 2023 Medicare [id number] 2020 Medicaid MEDICAID [facility] MEDICAID [id number] 2020-Present [phone] [address] [place] [address] Medicaid [id number] 2020 Medicaid [id number] 2020 Medicare MEDICARE MEDICAR E A AND B [id number] 2020-Present [phone] [address] [address] [place] [address] Medicare [id number] 2020 Medicare [id number] 1955 Unknown [id number] 1955 Unknown [id number] 1955 Unknown [id number] [id number] 1955 Unknown [id number] 1955 Unknown [id number] 1955 Unknown [id number] [id number] 1955 Unknown [id number] [id number] 1955 Unknown [id number] [id number] 1955 Unknown [id number] 1955 Unknown [id number] [id number] Unknown [id number] Social History Date Type Detail Facility Start: 08-03-2023 Tobacco smoking status Never s moked tobacco (finding) [facility] Start: 11-28-2023 End: 12-07-2023 Sex Assigned At Female [facility] Tobacco smoking stat [facility] Tobacco smoking consumption unknown [facility] Start: 1955 Sex Assigned At Not on file [facility] Start: 11-28-2023 [facility] History of tobacco use Current smoker [facility] History of tobacco use Cigarette Smoker C [facility] Start: 11-28-2023 End: 12-07-2023 Cigarettes smoked current (pack per day) - Reported 0.5 [facility] Start: 11-28-2023 Tobacco use and exposure Smokeless tobacco non-user [facility] Start: 11-28-2023 End: 12-07-2023 Alcohol intake Current drinker of alcohol (finding) [facility] National Score (1-10 0), lower number is lower risk 63 [facility] Functional Status Date Assessment Result Facility 08-03-2023 Functional Status N/A [facility] Clinical Notes 08-03-2023 to 12-16-2023 UriahAlliei, BUTANE COMPRESSOR OPERATOR - 12/08/2023 2:57 PM EDTTelephone Encounter - Skylar Harris - 12/08/2023 1:09 PM EDTTelephone Encounter - Skylar Harris - 12/08/2023 1:09 PM EDT Note Date & Type Note Facility 12-16-2023 Note Cardiology Clinic No te HPI: Candis Johnson is a 68 y.o. 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 Of note: Patient is deaf. 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 She does her best to communicate by lipreading. She is accompanied by her lifter/driver son, grandson, who assists in communication. Patient here for follow up [facility] ED visit on 12/10/2023 for syncope. She [...] a past medical history of Diabetes mellitus ([facility]). Surgical History She has no past surgical [...] respect their wis (more content not included)... [facility] 12-08-2023 Note HNO ID: [id number] Author: LISA KRUSE LSW Service: ? Author Type: Farm Specialist Type: Progress Notes Filed: 12/08/2023 15:01 Note Text: Patient appears on the [facility] First Time Radiation Treatment Report. MARCELO completed a chart review and there was a note from today...Please cancel Candis's SIM scheduled 12/09/[address] Ahmadi. Patient's PET scan shows metastatic disease and patient will proceed with chemotherapy per Dr. Templeton. SW will remain available and will follow up as appropriate. BRENT Siddiqi [facility] 12-08-2023 History of Presen t illness Narrative Patient appears on the [facility] First Time Radiation Treatment Report. MARCELO completed a chart review and there was a note from today...Please cancel Candis's SIM scheduled 12/09/[address] Ahmadi. Patient's PET scan shows metastatic disease and patient will proceed with chemotherapy per Dr. Templeton. MARCELO will remain available and will follow up as appropriate. BRENT Siddiqi documented in this encounter [facility] 12-08-2023 Telephone encounter Note Report faxed to Dr. Gleason and Dr. Avilez. Images pushed to [facility]. [facility] 12-08-2023 Miscellaneous Notes Report faxed to Dr. [...] Mecca Boyle RN documented in this encounter [facility] 12-08-2023 Telephone encounter Note MRI not needed per chat [facility] 12-08-2023 Miscellaneous Notes MRI not needed per chat Spoke with patients son, he would like scheudled at [facility] since its easiest for nusing home [...] Dr. 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 Avilez). Will need repeat MRI pelvis week of January 15. Thanks! El Dr Ahmadi- order pending your approval. Nathalie Saleh RN Please place [facility] RAD onc consult I called and spoke to Angelina at [facility] and she said Candis does very [...] language. She has been a resident at [facility] assisted living for 4-5 years and does very well there per Landen. I notified Landen that Dr. Ahmadi is ordering a PET scan, rad onc consult at [facility] and trying to move up Candis's consult with Dr. Mckinley goran. Landen states between himself and [facility] transportation should not be an issue. Yumiko: 1. Please schedule PET scan goran. 2. Rad Onc consult at [facility] 3. Move up Dr. Mckinley's consult goran. Dr. Mckinley are you or your staff able to assist in rescheduling Ms. Johnson's consult with you goran per Dr. Ahmadi? She is currently scheduled for consult on 12/28/23. Thanks Mecca Boyle RN documented in this encounter [facility] 12-08-2023 Telephone encounter Note Cancelled appointment. [facility] 12-08-2023 Telephone encounter Note Yumiko: Please cancel [...] Gleason and Dr. Avilez. Mecca Boyle RN [facility] 12-08-2023 Telephone encounter Note Spoke with patients son, he would like scheudled at [facility] since its easiest for nusing home I sent over order will check on later, thanks [facility] 12-08-2023 Telephone encounter Note Called son to see where they would like the MRI scheduled, had to leave a message. [facility] 12-07-2023 History of Presen t illness Narrative [...] when she presented to Dr. Crespo in [place] from her nursing facility with symptoms of [...] Alcohol use: Yes Drug use: Not Currently WINDING DEPARTMENT SUPERVISOR HISTORY: The patient is postmenopausa. COMPLETE REVIEW OF SYSTEMS: All other ROS: negative As noted in HPI PHYSICAL EXAM: VS: There were no vitals taken for this visit. KPS: 70 General Appearance: Alert and oriented. No acute distress. HEENT: NCAT. Sclera anicteric. PERRL. EOMI. Chest: No respiratory distress. Abdomen: Soft. Nontender. Nondistended. WINDING DEPARTMENT SUPERVISOR: Deferred at this time. RADIOLOGY/LABORATORY DATA: see [...] MD cc: El Ahmadi [address] [facility] [address] Jayashree Avilez Behavior Management Specialist Oncology-[place] Abisai Gleason Heme/Onc-[place] documented in this encounter [facility] 12-07-2023 Note HNO ID: [id number] Author: LAISHA COBURN MD Service: ? Author [...] when she presented to Dr. Crespo in [place] from her nursing facility with symptoms of [...] a differential consideration for some of the amrina disease. HEAD/NECK: * FDG avid left supraclavicular [...] Alcohol use: Yes Drug use: Not Currently WINDING DEPARTMENT SUPERVISOR HISTORY: The patient is (more content not included)... [facility] 12-02-2023 Note HNO ID: [id number] Author: MIRIAN JIMENES RT(Con) Service: ? Author [...] 1340 PATIENT DISCHARGED TO: Ambulatory patient, left [place] department area. A Diagnostic radioactive procedure has taken place, with no further precautions necessary other than routine body substance precautions. More information regarding radiation safety can be found using this link: [email or web address] [email or web address] SIGNATURE: RT Aliyah(R) PATIENT NAME: Candis Johnson DATE: December 02, 2023 TIME: 2:23 PM PAGER/CONTACT #: [facility] 12-02-2023 Note HNO ID: [id number] Author: ASHWINI BUNCH RN Service: ? Author [...] DATE: December 02, 2023 TIME: 1:44 PM [facility] 11-28-2023 Telephone encounter Note MRI order pending your approval. Mecca Boyle RN [facility] 11-28-2023 Telephone encounter Note Please place MRI orders [facility] 11-28-2023 Note HNO ID: [id number] Author: EL AHMADI MD Service: ? Author Type: Physician Type: Progress Notes Filed: 12/13/2023 04:59 Note Text: Radiation Oncology - New Patient/Consult Note PATIENT NAME: Candis Johnson PATIENT REQUESTING PHYSICIAN: Dr. Jayashree Avilez, Dr. Abisai Gleason DIAGNOSIS: Locally advanced cervical cancer. PATIENT IDENTIFICATION: This patient was seen in the Department of Radiation Oncology at the [facility] with El Ahmadi MD. She was accompanied today by her son. She is mostly deaf and much of the conversation was conducted with the son who is also the medical power of disability attorney. Final recommendations will be communicated back to the requesting physician by way of the shared medical record, or letter to requesting physician via US mail. HISTORY OF PRESENT ILLNESS: Ms. Johnson is a 68-year old deaf woman residing in an assisted living facility in [place], [place] and her son is her medical power of disability attorney. Per note from Dr. Gleason on [...] the final pathology as below Path Number: [id number] -- Diagnosis -- A. LEFT CERVIX, BIOPSY: [...] IIIb cervical cancer and was evaluated by WINDING DEPARTMENT SUPERVISOR oncology and due to the fact fixed [...] lives in an assisted living facility in [place], [place]. She had a legal guardian in the past and her son is now the medical power of disability attorney. She also has two other children. RADIATION HISTORY: The patient denies any history of therapeutic radiation. ALLERGIES: ALLERGIES No Known Allergies MEDICATIONS: Current Outpatient Medications: atorvastatin (LIPITOR) 40 mg tablet aspirin 81 mg cap TRULICITY 0.75 mg/0.5 mL pen injector cholecalciferol (VITAMIN D3) 5,000 unit tab acarbose (PRECOSE) 100 mg tablet acetaminophen (TYLENOL) 500 mg tablet CAPLYTA 42 (more content not included)... [facility] 11-28-2023 History of Presen t illness Narrative Images from the original note were not included. Radiation Oncology - New Patient/Consult Note PATIENT NAME: Candis Johnson PATIENT REQUESTING PHYSICIAN: Dr. Jayashree Avilez, Dr. Abisai Gleason DIAGNOSIS: Locally advanced cervical cancer. PATIENT IDENTIFICATION: This patient was seen in the Department of Radiation Oncology at the [facility] with El Ahmadi MD. She was accompanied today by her son. She is mostly deaf and much of the conversation was conducted with the son who is also the medical power of disability attorney. Final recommendations will be communicated back [...] lives in an assisted living facility in [place], [place]. She had a legal guardian in the past and her son is now the medical power of disability attorney. She also has two other children. [...] her son is her medical power of disability attorney. She was recently diagnosed with advanced [...] later this week. She has met with WINDING DEPARTMENT SUPERVISOR oncologist Dr. Avilez and medical oncologist Dr. [...] the residual disease to be performed at [facility] by one of my colleagues. 3. Referral will be made to my cooling machine operator radiation oncology colleagues at [facility] for evaluation and treatment recommendations including making [...] which included preparing to see the patient, [id number] patient care, and counseling and educating the patient/family/caregiver. This document has been created with the use of voice recognition technology. It may contain inaccuracies, misspellings, inaccurate syntax or inappropriate word context that are a result of the inadequacies/shortcomings of said technology/software. documented in this encounter [facility] 11-28-2023 Telephone encounter Note Rad onc consult order signed for [facility] referral (brachytherapy). Can cancel consult request with Dr. Mckinley - she is established with cooling machine operator onc out of [facility] (Dr. Avilez). Will need repeat MRI pelvis week of January 15. Thanks! El [facility] 11-28-2023 Nurse Note Pacemaker/Defibrillator?N Previous Cancer(s)?N Previous Radiation?N Lupus/Scleroderma?N On body monitoring device?N [facility] 11-28-2023 Nurse Note Pacemaker/Defibrillator?N Previous Cancer(s)?N Previous Radiation?N Lupus/Scleroderma?N On body monitoring device?N documented in this encounter [facility] 11-28-2023 Nurse Note Radiation Therapy - Patient Education Note PATIENT NAME: Candis Johnson PATIENT November 28, 2023 [facility] FACILITY/LOCATION: [facility] READINESS TO LEARN Cognitive Ability: [...] device: No Signed by: Nathalie Saleh RN [facility] 11-28-2023 Nurse Note Radiation Therapy - Patient Education Note PATIENT NAME: Candis Johnson PATIENT November 28, 2023 [facility] FACILITY/LOCATION: [facility] READINESS TO LEARN Cognitive Ability: [...] Nathalie Saleh RN documented in this encounter [facility] 11-28-[address] Ahmadi- kaelyn pending your approval. Nathalie Saleh RN [facility] 11-28-2023 Telephone encounter Note Please place [facility] RAD onc consult [facility] 11-28-2023 Note Education (RADTSA) CANDIS JOHNSON ([id number]) 1955 F DEF Date Time Provider Department 11/28/23 NATHALIE SALEH Reason for Visit: Patient Education [91] Visit Notes: >> Nathalie Saleh RN Mon November 28, 2023 10:22 AM Status: Signed Radiation Therapy - Patient Education Note PATIENT NAME: Candis Johnson PATIENT November 28, 2023 [facility] FACILITY/LOCATION: [facility] READINESS TO LEARN Cognitive Ability: [...] Encounter Status:Closed by NATHALIE SALEH on 11/28/23 [facility] 11-25-2023 Telephone encounter Note I called and spoke to Angelina at [facility] and she said Candis does very [...] language. She has been a resident at [facility] assisted living for 4-5 years and does very well there per Landen. I notified Landen that Dr. Ahmadi is ordering a PET scan, rad onc consult at [facility] and trying to move up Candis's consult with Dr. Elías zimmer. Landen states between himself and [facility] transportation should not be an issue. Yumiko: 1. Please schedule PET scan goran. 2. Rad Onc consult at [facility] 3. Move up Dr. Mckinley's consult goran. Dr. Mckinley are you or your staff able to assist in rescheduling Ms. Johnson's consult with you goran per Dr. Ahmadi? She is currently scheduled for consult on 12/28/23. Thanks Mecca BoyleRN [facility] 11-21-2023 Note Cardiology Clinic No te HPI: Candis Johnson is a 68 y.o. female With no reported cardiac history who presened to cardiology clinic at the request of her BIOFUELS ENGINEERING MANAGER doctor for perioperative restratification prior to D&C and LEEP procedure. Of note: Patient is deaf. 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 She does her best to communicate by lipreading. She is accompanied by her lifter/driver today, who assists in communication. Stress test and echocardiogram were performed after last visit. Stress test without evidence of ischemia. Echocardiogram demonstrated preserved EF. She had moderately elevated right-sided pressures (51 mmHg) and diastolic dysfunction. Patient here for 2 mo follow up. Lasix was put on hold at last apt in September 2023 by Leydi Miles CNP. Patient was admitted to [facility] for HGB of 6.5. D&C was attempted [...] a past medical history of Diabetes mellitus ([facility]). Surgical History She has no past surgical [...] possible cervical cancer. Recommend follow up with chief deputy for this -Optimize medical management -Aggressive risk factor modification -Plan of care discussed with patient. All questions were answered. Patient voices understanding and is agreeable with current plan. -Patient was educated on red flag symptoms. Strict return precautions were provided. Patient verbalizes (more content not included)... [facility] 11-12-2023 Hospital course Narrative Behavior Management Specialist/Onc Discharge Summary [facility] Patient Name: Candis Johnson Patient : [...] examination of vaginal mass as transfer from [facility]; HD#1 (11/09): Patient is hard of hearing [...] Follow-up care, restrictions reviewed. Wil Mai MD Convention Services Director Resident [facility] 11/12/2023, 9:07 AM documented in this encounter [facility] 11-12-2023 History of Presen t illness Narrative Gynecology Oncology Progress Note Candis Johnson is a 68 y.o. female HD#3, POD#1 who transferred from [place] due to concern for vaginal mass Patient [...] Pickeringnoemi 68 y.o. female HD#3 transferred from [place] due to concern for vaginal mass - [...] with Deafness - Discussed with nursing at [facility] and patient's son, Landen - Per [...] significant clearance testing in anticipation for her cooling machine operator/urologic procedures - 09/09/23: myocardial perfusion imagining normal - 09/09/23: ECHO: EF 55-60%; normal RV size/function. Bilateral enlargement. Grade 2 diastolic dysfunction. - Repeat EKG 11/09: Normal sinus rhythm, anterior infarct age undetermined (old, seen on EKG on 08/15/23) - Nitroglycerin ordered PRN - Ranolazine not ordered inpatient - Continue to monitor Anemia - Admit Hgb @ [facility] 6.5 - S/p 2u pRBC Hgb 8.9 - Admit Hgb at [facility] 8.7 - Hgb 5/3; 9.0 [...] insulin requirement Schizophrenia - Per nursing at [facility] and patient's son, patient has significant PMH of schizophrenia - Home meds include Topomax and Lumaterprone (not on formulary at [facility]. Consulted with [facility] pharmacy and [...] y.o. female HD#2, POD#0 who transferred from [facility] due to concern for vaginal mass Patient [...] Johnson 68 y.o. female HD#2 transferred from [facility] due to concern for vaginal mass - [...] with Deafness - Discussed with nursing at [facility] and patient's son, Landen - Per [...] significant clearance testing in anticipation for her cooling machine operator/urologic procedures - 09/09/23: myocardial perfusion imagining [...] pRBC Hgb 8.9 - Admit Hgb at [facility] 8.7 - Hgb 5/3; 9.0 [...] insulin requirement Schizophrenia - Per nursing at [facility] and patient's son, patient has significant PMH of schizophrenia - Home meds include Topomax and Lumaterprone (not on formulary at [facility]. Consulted with [facility] pharmacy and [...] a 68 y.o. female HD#2 transferred from [facility] due to concern for vaginal mass Patient [...] Johnson 68 y.o. female HD#2 transferred from [facility] due to concern for vaginal mass - [...] with Deafness - Discussed with nursing at [facility] and patient's son, Landen - Per [...] significant clearance testing in anticipation for her cooling machine operator/urologic procedures - 09/09/23: myocardial perfusion imagining [...] pRBC Hgb 8.9 - Admit Hgb at [facility] 8.7 - AM CBC pending [...] insulin requirement Schizophrenia - Per nursing at [facility] and patient's son, patient has significant PMH of schizophrenia - Home meds include Topomax and Lumaterprone (not on formulary at [facility]. Consulted with [facility] and [...] as the patient's health care power of disability attorney. Landen has been advised of the [...] Evaluation: A cardiology evaluation was completed at [facility] prior to her transfer. Records have been reviewed. Lab results have been reviewed Proceed with surgical evaluation as planned Jayashree Avilez MD Gynecologic Oncology Obstetric/Gynecology Resident Interval Note At time of rounding, patient in MRI suite obtaining MRI pelvis. Dr. Avilez, WINDING DEPARTMENT SUPERVISOR/ONC attending, present at bedside to discuss evaluation and management plans with patient's son, Landen. Landen is the patient's power of disability attorney and medical decision maker. Paperwork uploaded [...] ms QTc Calculation (Bazett) 410 ms P Denver 40 degrees R Denver 6 degrees T Denver 20 degrees EKG 12 Lead Collection Time: 11/10/23 4:32 AM Result Value Ref Range Ventricular Rate 65 BPM Atrial Rate 65 BPM P-R Interval 172 ms QRS Duration 86 ms Q-T Interval 406 ms QTc Calculation (Bazett) 422 ms P Denver 42 degrees R Denver 7 degrees T Denver 19 degrees Comprehensive Metabolic Panel w/ Reflex [...] Sample Expiration 11/13/2023,2359 Arm Band Number [id number] ABO/Rh O POSITIVE Antibody Screen NEGATIVE Lipid [...] 65 - 105 mg/dL Annabelle Moss MD BIOFUELS ENGINEERING MANAGER Resident, PGY2 [place], [place] 11/10/2023, 5:14 PM Attending Physician Statement [...] the resident. Jayashree Avilez MD Gynecologic Oncology WRECKING MECHANIC ALL NOTES Facility/Department: [address] MED SURG CLINICAL BEDSIDE SWALLOW EVALUATION NAME: Candis Johnson : 1955 ADMISSION DATE: 11/10/2023 ADMITTING DIAGNOSIS: has Vaginal mass on their problem list. Date of Eval: 11/10/2023 Evaluating Therapist: JODIE Damon Current Diet level: Current Diet : NPO Current Liquid Diet : NPO Primary Complaint: Candis Johnson is a 68 y.o. female presents to [facility] as a direct transfer from [facility] for concern for vaginal cancer. All the information is derived from a paper chart from [facility]. We do not have access to medical [...] Normal in all situations Treatment Plan Requires WRECKING MECHANIC Intervention: Yes 1-2X D/C Recommendations: Ongoing speech [...] Patient Education Response: Verbalizes understanding Therapy Time [id number] JODIE Damon 11/10/2023 11:10 AM Unable to complete admission assessment. Patient has impaired hearing. documented in this encounter [facility] Cardiology Clinic No te Chief Complaint: preop risk stratification HPI: PMHx: Candis Johnson is a 68 y.o. 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 Of note: Patient is deaf. 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 She does her best to communicate by lipreading. She is accompanied by her lifter/driver today, who assists in communication. Today, patient [...] a past medical history of Diabetes mellitus ([facility]). Surgical History She has no past surgical [...] test 09/09/2023 N (more content not included)... [facility] [place] [facility] 10-06-2023 Note Patient here for 2 w picayune follow up SOB, atypical chest pain, and [...] All other systems reviewed and are negative. [facility] [place] [facility] 09-23-2023 Note Cardiology Clinic No te Chief Complaint: preop risk stratification HPI: Candis Johnson is a 68 y.o. 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 Of note: Patient is deaf. 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 She does her best to communicate by lipreading. She is accompanied by her lifter/driver today, who assists in communication. Today, patient [...] a past medical history of Diabetes mellitus ([facility]). Surgical History She has no past surgical [...] -Further recommendations regardi (more content not included)... [facility] [place] [facility] 09-23-2023 Note Concerns: Not much s tates some swelling in legs and some back back, chest pain seems to be getting better [facility] 08-26-2023 Note Cardiology Clinic No te Chief Complaint: preop risk stratification HPI: Candis Capelle is a 68 y.o. 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 Of note: Patient is deaf. 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 She does her best to communicate by lipreading. She is accompanied by her lifter/driver today, who assists in communication. As per patient and her lifter/driver, patient denies any cardiac history. She denies any prior history of heart failure, CAD, PCI, or MO. She does report occasional chest pain. Chest [...] a past medical history of Diabetes mellitus ([facility]). Surgical History She has no past surgical [...] HLD -Optimize med (more content not included)... [facility] [place] [facility] 08-26-2023 Note New patient here to establish care. Ref from Dr. Crespo for surgery clearance prior to D&C and LEEP procedure. This is scheduled for 08/31 at [facility] per patient. She had labs and EKG last week. Says she gets intermittent chest pain and SOB w/ exertion. Review of Systems HENT: Positive for hearing loss. Cardiovascular: Positive for chest pain (intermittent) and dyspnea on exertion (intermittent). All other systems reviewed and are negative. [facility] [place] [facility] 08-04-2023 Evaluation + Plan note Diagnostic Tests PendingUrine Cytology ([facility]) 08/04/23 [facility] 08-03-2023 Hospital Discharg e instructions Patient [...] including vitamins, herbs, eye drops, creams, and arqr-lsu-yjsttop medicines. Any problems you or family members [...] health care provider tells you to. Taking hfgz-rvj-uaezaij medicines, vitamins, herbs, and supplements. General instructions [...] provider. Document Revised: 10/22/2022 Document Reviewed: 10/22/2022 [employer] Patient Education 2022 [facility]. 08/03/2023 09:37:21 Hematuria, Adult Hematuria, Adult Hematuria [...] Follow these instructions at home: Medicines Take eydh-loa-gdwurbp and prescription medicines only as told by [...] or the blood stops without treatment. Take zvpm-ego-rjqljrz and prescription medicines only as told by your health care provider. Drink enough fluid to keep your urine pale yellow. This information is not intended to replace advice given to you by your health care provider. Make sure you discuss any questions you have with your health care provider. Document Revised: 02/25/2021 Document Reviewed: 02/25/2021 [employer] Patient Education 2022 [facility] [employer]. Follow Up Care 07/13/2023 11:34:42 With:Marcelino GALLARDO, Pamela Fam URVaishali, URO Address: When: Unknown Comments:Schedule Cysto, Rt ureteroscopy, possible biopsy, and Rt stent placement [facility] Evaluation + Plan note No data available for this section [facility] Evaluation note Diagnosis Vaginal mass- Primary Other specified symptom associated with female genital organs Bleeding from the genitourinary system Other specified disorders of urinary tract documented in this encounter [facility] note* Diagnosis High grade squamous intraepithelial lesion (HGSIL), grade 3 SUDHA, on biopsy of cervix- Primary documented in this encounter [facility] note* Diagnosis 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)- Primary documented in this encounter [facility] note* Diagnosis 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)- [facility] 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)- [facility] Diagnosis 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)- Primary [facility] No data available for this section [facility]* Attachments The following attachments cannot be sent through Care Everywhere. * Hysteroscopy: Post-op (Amharic) * Cystoscopy: Post-op (Amharic) [facility] No data available for this section [facility] [employer] reason for referral (narrative)* Diagnostic Procedure Only (Routine) - Pending Review Specialty Diagnoses / Procedures Referred By Luis hernandez Referred To Contact MOLECULAR & FUNCTIONAL IMAGING Diagnoses 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) Procedures NM PET/CT SKULL-THIGH INITIAL PET IMAGING CT ATTENUATION SKULL BASE MID-THIGH El Ahmadi MD [facility] [employer] [facility] [place] [address] Molecular & Functional Imaging [address] [place] [address] Referral ID Status Reason Start Date Expiration Date Visits Requested Visits Authorized [id number] Pending Review Auto-Generat ed Referral 11/25/2023 12/24/2024 1 1 [facility] Summary Purpose Family History No Family History [...] W/O & W/CONTRAST MATERIAL lE Ahmadi MD [facility] [place] [address] [place] [address] Referral ID Status Reason Start Date Expiration Date Visits Requested Visits Authorized [id number] Pending Review Auto-Generat ed Referral 01/16/2024 12/27/2024 1 1 Specialty Diagnoses / Procedures Referred By Contac t Referred To Contact Radiation Oncology Diagnoses 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) Procedures RAD/ONC CONSULT OFFICE/OUTPATIENT [facility] 60 MINUTES El Ahmadi MD [address] [facility] [place] [address] Referral ID Status Reason Start Date Expiration Date V isits Requested Visits Authorized [id number] Closed PCP Requested Referral 11/29/2023 11/27/2024 1 1 Additional Source Comments INFORMATION SOURCE (unrecogn ized section and content) DATE CREATED AUTHOR 07/05/2022 [facility] DATE CREATED AUTHOR AUTHOR'S ORGANIZ ATION 11/04/2023 [facility] EPIC DATE CREATED AUTHOR AUTHOR'S ORGANIZ ATION 12/13/2023 [facility] DATE CREATED AUTHOR AUTHOR'S ORGANIZ ATION 12/17/2023 [facility] DATE CREATED AUTHOR AUTHOR'S ORGANIZ ATION 12/20/2023 [facility] DATE CREATED AUTHOR AUTHOR'S ORGANIZ ATION 01/09/2024 [facility] DATE CREATED AUTHOR AUTHOR'S ORGANIZ ATION 01/12/2024 [facility] Patient Care team informatio n (unrecognized section and content) Wine Consultant Relationship Specialty Start Date End Date Ander Langley DO [address] [place] [phone] PCP - General Internal Medicine 11/10/23 Reason for Visit (unrecogniz ed section and content) Specialty Diagnoses / Procedures Referred By Contac t Referred To Contact Diagnoses Vaginal mass vaginal cancer, anemia bleeding Jayashree Avilez MD [address] [place] [address] [facility] [address] [place] [address] [facility] [address] [place] [address] Referral ID Status Reason Start Date Expiration Date Visits Re quested Visits Authorized [id number] 1 1 Reason Comments Patient Education Reason Comments Orders Patient Update Reason Comments Patient Update Reason Onset Date Comments Consult Simulation Request Form 11/28/2023 Reason Comments Consult Specialty Diagnoses / Procedures Referred By Contac t Referred To Contact Radiation Oncology Diagnoses 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 1623 ([facility] Hold - Provider: Tiffany Autohold - Reason: Unreviewed Transfer Orders)1931 ([facility] Unhold - Provider: Marysol Head RN) acetaminophen (TYLENOL) tablet 1,000 mg 1,000 mg, Oral, EVERY 6 HOURS PRN, Starting on Rosina 11/10/23 at 0934, Until Discontinued, Pain Mild (1-3) 1623 ([facility] Hold - Provider: Tiffany Autohold - Reason: Unreviewed Transfer Orders)1931 ([facility] Unhold - Provider: Marysol Head RN) albuterol sulfate HFA (PROVENTIL;VENTOLIN;PROAIR) 108 (90 Base) MCG/ACT inhaler 2 puff 2 puff, Inhalation, EVERY 6 HOURS PRN, Starting on Rosina 11/10/23 at 0937, Until Discontinued, Wheezing, Initiate RT Bronchodilator Protocol: Yes - Inpatient Protocol 1623 ([facility] Hold - Provider: Tiffany Autohold - Reason: Unreviewed Transfer Orders)1931 ([facility] Unhold - Provider: Marysol Head [...] 60 minutes, discontinue dextrose 10% infusion. 1623 ([facility] Hold - Provider: Tiffany Autohold - Reason: Unreviewed Transfer Orders)1931 ([facility] Unhold - Provider: Marysol Head [...] at 100 mL/hour and notify provider. 1623 ([facility] Hold - Provider: Tiffany Autohold - Reason: Unreviewed Transfer Orders)1931 ([facility] Unhold - Provider: Marysol Head [...] at 100 mL/hour and notify provider. 1623 ([facility] Hold - Provider: Tiffany Autohold - Reason: Unreviewed Transfer Orders)1931 ([facility] Unhold - Provider: Marysol Head RN) fluticasone (FLONASE) 50 MCG/ACT nasal spray 2 spray 2 spray, Each Nostril, DAILY PRN, Starting on Rosina 11/10/23 at 0938, Until Discontinued, Rhinitis 1623 ([facility] Hold - Provider: Tiffany Autohold - Reason: Unreviewed Transfer Orders)1931 ([facility] Unhold - Provider: Marysol Head [...] minutes x 2 and notify provider. 1623 ([facility] Hold - Provider: Tiffany Autohold - Reason: Unreviewed Transfer Orders)1931 ([facility] Unhold - Provider: Marysol Head [...] LESS THAN 70 mg/dL, notify provider. 1623 ([facility] Hold - Provider: Tiffany Autohold - Reason: Unreviewed Transfer Orders)1931 ([facility] Unhold - Provider: Marysol Head [...] Bronchodilator Protocol: Yes - Inpatient Protocol 1623 ([facility] Hold - Provider: Tiffany Autohold - Reason: Unreviewed Transfer Orders)1931 ([facility] Unhold - Provider: Marysol Head [...] Substituted for nitroGLYCERIN translingual spray (NITROLINGUAL).. 162 ([facility] Hold - Provider: Tiffany Autohold - Reason: Unreviewed Transfer Orders)193 ([facility] Unhold - Provider: Marysol Head RN) ondansetron (ZOFRAN) injection 4 mg(Linked Group 2) 4 mg, IntraVENous, EVERY 6 HOURS PRN, Starting on Rosina 11/10/23 at 0353, Until Discontinued, Nausea, Vomiting, Administer if oral route cannot be used. 162 ([facility] Hold - Provider: [facility] Autohold - Reason: Unreviewed Transfer Orders)1931 ([facility] Unhold - Provider: Marysol Head RN) ondansetron (ZOFRAN-ODT) disintegrating tablet 4 mg(Linked Group 2) 4 mg, Oral, EVERY 8 HOURS PRN, Starting on Rosina 11/10/23 at 0353, Until Discontinued, Nausea, Vomiting 1623 ([facility] Hold - Provider: [facility] Autohold - Reason: Unreviewed Transfer Orders)1931 [...] or prosecute any alcohol or drug abuse patient.[facility] the event this information is protected by the Federal Confidentiality of Alcohol and Drug Abuse Patient Records regulations: The Federal rules restrict any use of the information to criminally investigate or prosecute any alcohol or drug abuse patient.[facility] the event this information is protected by the Federal Confidentiality of Alcohol and Drug Abuse Patient Records regulations: The Federal rules restrict any use of the information to criminally investigate or prosecute any alcohol or drug abuse patient.[facility] the event this information is protected by the Federal Confidentiality of Alcohol and Drug Abuse Patient Records regulations: The Federal rules restrict any use of the information to criminally investigate or prosecute any alcohol or drug abuse patient.[facility] the event this information is protected by the Federal Confidentiality of Alcohol and Drug Abuse Patient Records regulations: The Federal rules restrict any use of the information to criminally investigate or prosecute any alcohol or drug abuse patient.[facility] the event this information is protected by the Federal Confidentiality of Alcohol and Drug Abuse Patient Records regulations: The Federal rules restrict any use of the information to criminally investigate or prosecute any alcohol or drug abuse patient.[facility] the event this information is protected by the Federal Confidentiality of Alcohol and Drug Abuse Patient Records regulations: The Federal rules restrict any use of the information to criminally investigate or prosecute any alcohol or drug abuse patient.[facility] System[facility] the event this information is protected by the Federal Confidentiality of Alcohol and Drug Abuse Patient Records regulations: The Federal rules restrict any use of the information to criminally investigate or prosecute any alcohol or drug abuse patient.[facility] FOR RECORDS PERTAINING TO PATIENTS WHO ARE [...] BE BASED ON THE PRIMARY CLINICAL RECORDS. [facility]. provides no warranty or guarantee of the accuracy or completeness of information in this document.
[2024-01-25 07:41] LABS: Hematocrit 25.1 % (36.0-48.0); Hemoglobin 7.8 g/dL (12.0-16.0); Mean Corpuscular HGB Conc 31.1 g/dL (29.9-35.2); Mean Corpuscular Hemoglobin 27.1 pg (26.7-34.0); Mean Corpuscular Volume 87.2 fL (81.0-99.0); Mean Platelet Volume 8.8 fL (9.5-13.5); Platelet Count 389 10^3/uL (150-450); Red Blood Count 2.88 10^6/uL (4.20-5.40); Red Cell Distribution Width 15.7 % (11.0-15.0); White Blood Count 6.1 10^3/uL (4.0-11.0)
[2024-01-25 08:19] LABS: Eosinophils Absolute Manual 0.06 10^3/uL (0.00-0.70); Lymphocytes Absolute Manual 0.91 10^3/uL (1.20-3.80); Segmented Neut Absolute Manual 4.81 10^3/uL (1.4-6.5)
[2024-01-25 08:21] LABS: Burr Cells 2+; Poikilocytosis 1+
== END 2024-01-25 00:49 | disposition home or self-care (01) ==
LOC: LAB 00:48
PROVIDERS: PCP Internal Medicine; Visit Provider Internal Medicine
DX: D64.9 Anemia, unspecified (principal)
CPT/HCPCS: 36415; 85007; 85027

== ENCOUNTER 2024-01-25 15:51 | Emergency (ER) | payer MEDICARE, MEDICAID, SELFPAY ==
[2024-01-25 15:51] VITALS: BP 155/69; PULSE 62; TEMP 36.8; O2SAT 98; BMI 32.6
--- NOTE | 2024-01-25 16:02 | XR_ITS ---
The [address] [address] Patient Name: STEVE JOHNSON MRN: [id number] date: 1955 Sex: F Assigned Patient Location: ER Current Patient Location: ED.MAIN Accession/Order Number: [id number] Exam Date: 01/25/2024 16:24 Report Date: 01/25/2024 17:13 At the request of: IRMA MERCADO Procedure: XR pelvis 1-2V EXAM: XR pelvis 1-2V HISTORY: trauma COMPARISON: None. TECHNIQUE: One view of the pelvis FINDINGS: There is no acute fracture or dislocation. The soft tissue is unremarkable. XR/XR pelvis 1-2V IMPRESSION: No acute process. Electronically authenticated by: MASON TERRAZAS Date: 01/25/2024 17:13
--- NOTE | 2024-01-25 16:03 | ED_ITS ---
HPI HPI - Head Injury General Chief complaint: Head Injury Stated complaint: FALL Time Seen by Provider: 01/25/24 15:52 Source: medical record Mode of arrival: ambulance Limitations: altered mental status History of Present Illness HPI Narrative: 68-year-old female presents to the emergency department via EMS from extended- care facility for evaluation status post fall. Patient complains of headache. States she lost her balance, falling backward. Patient complains of neck, bilateral shoulder, chest, pelvis pain as well. Patient is DNR CC only. Denies loss of consciousness, memory impairment. She takes aspirin. Denies anticoagulant use. Denies motor or sensory changes, paresthesias Quality:?Blunt trauma Severity:?Moderate Timing:?Injury occurred shortly prior to arrival, constant Context: Normal setting and activity? Modifying factors:?Pain worse with movement Associated symptoms: As above Related Data Home Medications ?Medication ?Instructions ?Recorded ?Confirmed acarbose 100 mg tablet 100 mg PO BIDWM 08/15/23 01/03/24 acetaminophen 500 mg capsule 1,000 mg PO .QHS 08/15/23 01/03/24 albuterol sulfate 90 mcg/actuation 2 inh inhalation Q6H PRN shortness 08/15/23 01/03/24 aerosol inhaler (ProAir HFA) of breath or wheezing atorvastatin 40 mg tablet 40 mg PO BEDTIME 08/15/23 01/03/24 cholecalciferol (vitamin D3) 125 125 mcg PO DAILY 08/15/23 01/03/24 mcg (5,000 unit) capsule famotidine 40 mg tablet 40 mg PO .QHS 08/15/23 01/03/24 ferrous sulfate 325 mg (65 mg 325 mg PO DAILY 08/15/23 01/03/24 iron) tablet,delayed release fluticasone propionate 50 2 spray intranasal DAILY PRN 08/15/23 01/03/24 mcg/actuation nasal allergy symptoms spray,suspension (Allergy Relief (fluticasone)) ipratropium bromide 0.02 % 2.5 ml inhalation Q4H PRN 08/15/23 01/03/24 solution for inhalation shortness of breath or wheezing lumateperone 42 mg capsule 42 mg PO .QHS 08/15/23 01/03/24 (Caplyta) magnesium hydroxide 400 mg/5 mL 2,400 mg PO DAILY PRN constipation 08/15/23 01/03/24 oral suspension (Milk of Magnesia) metformin 1,000 mg tablet 1,000 mg PO BID 08/15/23 01/03/24 montelukast 10 mg tablet 10 mg PO DAILY 08/15/23 01/03/24 nitroglycerin 400 mcg/spray 1 spray sublingual Q5M PRN chest 08/15/23 01/03/24 translingual pain ranolazine 500 mg tablet,extended 500 mg PO BID 08/15/23 01/03/24 release,12 hr sacubitril 24 mg-valsartan 26 mg 1 tab PO BID 08/15/23 01/03/24 tablet (Entresto) topiramate 25 mg tablet (Topamax) 25 mg PO .QHS 08/15/23 01/03/24 trazodone 50 mg tablet 25 mg PO BEDTIME 08/15/23 01/03/24 dulaglutide 0.75 mg/0.5 mL 0.75 mg subcut QWEEK 11/04/23 01/03/24 subcutaneous [facility] ([facility] aspirin 81 mg tablet,delayed 81 mg PO DAILY 11/09/23 01/03/24 release cyanocobalamin (vitamin B-12) 1,000 mcg PO DAILY 11/09/23 01/03/24 1,000 mcg tablet furosemide 20 mg tablet 20 mg PO DAILY 12/11/23 01/03/24 Previous Rx's ?Medication ?Instructions ?Recorded cefdinir 300 mg capsule 600 mg (2 x 300 mg) PO QD #20 caps 01/06/24 Allergies Allergy/AdvReac Type Severity Reaction Status Date / Time No Known Drug Allergies Allergy Verified 01/25/24 15:57 Opioid HPI Opioid Management Most Recent Pain and Opioid Data: Last Pain Scale 5 01/06/24 10:11 Last ORT Total Score 0 01/03/24 19:35 Last ORT Risk Category Low Risk 01/03/24 19:35 Review of Systems ROS Narrative CONST: Denies activity change, diaphoresis HENT: Denies facial swelling, dental problems, hearing loss, tinnitus EYES: Denies visual changes, eye pain RESP: Denies shortness of breath, chest tightness CV: Denies chest pain, palpitations GI: Denies abd pain, nausea : Denies flank pain MS: + arthralgias, neck pain. Denies myalgias, back pain SKIN: Denies known color change, swelling NEURO: +headache.? Denies dizziness, numbness, paresthesias HEMATOLOGIC: Denies anticoagulant use PSYCHIATRIC: Denies confusion [facility] Medical History Cardiac arrhythmia ?I49.9 - Cardiac arrhythmia, unspecified (ICD-10) Syncope ?R55 - Syncope and collapse (ICD-10) Anemia ?D64.9 - Anemia, unspecified (ICD-10) Metastasis from cervical cancer ?C79.9 - Secondary malignant neoplasm of unspecified site (ICD-10) ?C53.9 - Malignant neoplasm of cervix uteri, unspecified (ICD-10) Cervical cancer, FIGO stage IV ?C53.9 - Malignant neoplasm of cervix uteri, unspecified (ICD-10) Postmenopausal bleeding ?N95.0 - Postmenopausal bleeding (ICD-10) CAD (coronary artery disease) ?I25.10 - Atherosclerotic heart disease of [place] coronary artery without angina pectoris (ICD-10) (HFpEF) heart failure with preserved ejection fraction ?I50.30 - Unspecified diastolic (congestive) heart failure (ICD-10) Heart palpitations ?R00.2 - Palpitations (ICD-10) Diastolic dysfunction ?I51.89 - Other ill-defined heart diseases (ICD-10) Lower extremity edema ?R60.0 - Localized edema (ICD-10) Atypical chest pain ?R07.89 - Other chest pain (ICD-10) Dyspnea ?R06.00 - Dyspnea, unspecified (ICD-10) Poor speech ?R47.9 - Unspecified speech disturbances (ICD-10) High cholesterol ?E78.00 - Pure hypercholesterolemia, unspecified (ICD-10) Diabetes ?E11.9 - Type 2 diabetes mellitus without complications (ICD-10) Schizophrenia ?F20.9 - Schizophrenia, unspecified (ICD-10) COPD (chronic obstructive pulmonary disease) ?J44.9 - Chronic obstructive pulmonary disease, unspecified (ICD-10) Psychological disorder ?F99 - Mental disorder, not otherwise specified (ICD-10) Deaf ?H91.90 - Unspecified hearing loss, unspecified ear (ICD-10) Hypertension ?I10 - Essential (primary) hypertension (ICD-10) Incomplete bladder emptying ?R33.9 - Retention of urine, unspecified (ICD-10) Asthma ?J45.909 - Unspecified asthma, uncomplicated (ICD-10) Hydroureter ?N13.4 - Hydroureter (ICD-10) 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 - Other and unspecified doubling of uterus (ICD-10) Thickened endometrium ?R93.89 - Abnormal findings on diagnostic imaging of other specified body structures (ICD-10) 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 ?R87.613 - High grade squamous intraepithelial lesion on cytologic smear of cervix (HGSIL) (ICD-10) Surgical History History of appendectomy ?Z90.49 - Acquired absence of other specified parts of digestive tract (ICD- 10) H/O section ?Z98.891 - History of uterine scar from previous surgery (ICD-10) Family History Father Family history of coronary artery disease Family history of myocardial infarction Mother Family history of coronary artery disease Family history of diabetes mellitus Family history of myocardial infarction Other Family history of hypertension Family history of stroke Kidney disease Social History Within the past year, how often did you have a drink containing alcohol: never Score interpretation: A score less than 3 is consistent with normal alcohol consumption. 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 No diaphoresis.?? HENT: normocephalic, atraumatic.? She is hard of hearing, chronic. There is no tenderness, edema, crepitus, instability, step off of the scalp, face. Moist mucous membrane, no abnormalities of the nose noted, normal appearing ext ears.? No drainage, blood from ears.? EYES: PERRL, EOMI.? Normal appearing conjunctiva, no apparent discharge bilat.? No orbital or periorbital swelling or tenderness. NECK: normal appearance, no tenderness, swelling CV: normal rate, regular rhythm, no murmur RESP: normal effort, lung sounds clear and equal bilat.? No wheezes, rales, rhonchi.? No chest tenderness CHEST:?+ diffuse tenderness.? 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 + mild pelvic tenderness. No other extremity tenderness, swelling.? No tenderness of the spinous process, paraspinal musculature of the T, L-S spines. Moving all extremities without apparent difficulty. SKIN: intact.? Warm, dry.? No abrasions, lacerations, pallor NEURO: A&O, No sensory, motor deficits.? No abnormalities noted with coordination PSYCH: normal mood, affect.? Normal speech.? Memory intact. Constitutional Vital Signs, click to edit/add: Last Vital Signs Temp 98.2 F 01/25/24 15:51 Pulse 62 01/25/24 15:51 Resp 16 01/25/24 15:51 BP 155/69 H 01/25/24 15:51 Pulse Ox 98 01/25/24 15:51 O2 Del Method Room Air 01/25/24 15:51 Course Reevaluation(s) Reevaluation #1: Discussed with patient and family results, plan, and disposition. At this time, unsure if they feel safe with patient going back to the assisted living facility. Will discuss further. Time: 17:30 Reevaluation #2: Family comfortable with patient being discharged to assisted living facility. They will contact her primary care provider. They are agreeable with plan. Time: 17:44 Vital Signs Vital signs: Vital Signs Temperature 98.2 F 01/25/24 15:51 Pulse Rate 62 01/25/24 15:51 Respiratory Rate 16 01/25/24 15:51 Blood Pressure 155/69 H 01/25/24 15:51 Pulse Oximetry 98 01/25/24 15:51 Oxygen Delivery Method Room Air 01/25/24 15:51 Temperature 98.2 F 01/25/24 15:51 Pulse Rate 62 01/25/24 15:51 Respiratory Rate 16 01/25/24 15:51 Blood Pressure 155/69 H 01/25/24 15:51 Pulse Oximetry 98 01/25/24 15:51 Oxygen Delivery Method Room Air 01/25/24 15:51 MDM - Head Injury MDM Narrative Medical decision making narrative: This is a 68-year-old female who presented via EMS from assisted living for evaluation status post unwitnessed fall. Patient is deaf, but does not know sign language. She reads lips. Does not indicate she was dizzy, presyncopal prior to the fall. Complains of head, upper chest/shoulder, and pelvis pain. Denies loss of consciousness. No anticoagulant use noted. On arrival, afebrile, vital signs are stable. On exam, nontoxic, well-appearing patient in no distress. Less she has mild tenderness to the occipital region, diffusely to the cervical spine, diffusely to the upper chest, and diffusely to the pelvis. No abdominal tenderness. She is moving all extremities fully. Neurovascular intact. She is alert, oriented. CT head and neck imaging, per radiologist reveals no acute findings. Chest x-ray, pelvis x-ray reveals no acute findings, per radiologist. Patient remained stable during ED course. Family arrived and discussion regarding whether or not they felt safe with her being discharged to the facility was had. They had discussion among themselves and, in the end felt comfortable with patient being discharged. Informed that mary tapia can return anytime to have they change their mind or if her status changes. They expressed understanding. Favor injury status post fall ICH, fracture, dislocation, pneumothorax less likely based on imaging Disposition ? The patient was discharged. Plan: Patient will be discharged to assisted living facility. Condition at time of disposition: stable ? Advised to follow up with primary provider. Advised to return for any worsening and/or development of new, concerning signs or symptoms PLEASE NOTE: Portions of the medical record may have been produced using electronic receptionist scheduler and may contain errors with respect to translation of words which may not have been identified prior to finalization of the chart. Medical Records Attestation: I reviewed the patient's medical records. Imaging Data Chest x-ray: Attestation: I have reviewed the pertinent imaging results. Radiologist's impression: ITS Impressions Pelvis X-Ray 01/25/24 16:02 IMPRESSION: No acute process. Electronically authenticated by: MASON TERRAZAS Date: 01/25/2024 17:[address] 01/25/24 16:24 IMPRESSION: No acute intracranial process is identified. No acute fracture. Electronically authenticated by: SOUMYA JOSEPH Date: 01/25/2024 16:[address] 01/25/24 16:24 IMPRESSION: No acute intracranial process is identified. No acute fracture. Electronically authenticated by: SOUMYA JOSEPH Date: 01/25/2024 16:41 Chest X-Ray 01/25/24 16:30 Impression: Cardiomegaly and left basilar atelectasis. No pneumothorax. Electronically authenticated by: MASON TERRAZAS Date: 01/25/2024 17:14 Discharge Plan Discharge Stand Alone Forms: Portal Instructions Chief Complaint: Head Injury Clinical Impression: Contusion of head Qualifiers: Encounter type: initial encounter Contusion of head detail: scalp Qualified Code(s): S00.03XA - Contusion of scalp, initial encounter Neck strain Qualifiers: Encounter type: initial encounter Qualified Code(s): S16.1XXA - Strain of muscle, fascia and tendon at neck level, initial encounter Chest trauma Qualifiers: Encounter type: initial encounter Qualified Code(s): S29.9XXA - Unspecified injury of thorax, initial encounter Contusion of pelvis Qualifiers: Encounter type: initial encounter Qualified Code(s): S30.0XXA - Contusion of lower back and pelvis, initial encounter Fall Qualifiers: Encounter type: initial encounter Qualified Code(s): W19.XXXA - Unspecified fall, initial encounter Patient Disposition: Home, Self-Care Time of Disposition Decision: 17:43 Condition: Good Mode of Transportation: EMS Prescriptions / Home Meds: No Action Trulicity 0.75 mg/0.5 mL pen injector 0.75 mg SUBCUT QWEEK cefdinir 300 mg Capsule 600 mg PO QD Qty: 20 0RF cyanocobalamin (vitamin B-12) 1,000 mcg tablet 1,000 mcg PO DAILY aspirin 81 mg tablet,delayed release (DR/EC) 81 mg PO DAILY furosemide 20 mg tablet 20 mg PO DAILY acarbose 100 mg tablet 100 mg PO BIDWM acetaminophen 500 mg capsule 1,000 mg PO .QHS atorvastatin 40 mg tablet 40 mg PO BEDTIME Caplyta 42 mg capsule 42 mg PO .QHS Entresto 24-26 mg tablet 1 tab PO BID famotidine 40 mg tablet 40 mg PO .QHS ferrous sulfate 325 mg (65 mg iron) tablet,delayed release (DR/EC) 325 mg PO DAILY metformin 1,000 mg tablet 1,000 mg PO BID montelukast 10 mg tablet 10 mg PO DAILY ranolazine 500 mg tablet extended release 12 hr 500 mg PO BID topiramate [Topamax] 25 mg tablet 25 mg PO .QHS trazodone 50 mg tablet 25 mg PO BEDTIME cholecalciferol (vitamin D3) 125 mcg (5,000 unit) capsule 125 mcg PO DAILY albuterol sulfate [ProAir HFA] 90 mcg/actuation HFA aerosol inhaler 2 inh inhalation Q6H PRN (Reason: shortness of breath or wheezing) fluticasone propionate [Allergy Relief (fluticasone)] 50 mcg/actuation spray,suspension 2 spray intranasal DAILY PRN (Reason: allergy symptoms) Rx Instructions: administer into each nostril ipratropium bromide 0.02 % solution 2.5 ml inhalation Q4H PRN (Reason: shortness of breath or wheezing) magnesium hydroxide [Milk of Magnesia] 400 mg/5 mL suspension 2,400 mg PO DAILY PRN (Reason: constipation) nitroglycerin 400 mcg/spray spray,non-aerosol 1 spray sublingual Q5M PRN (Reason: chest pain) Rx Instructions: do not exceed 3 doses per episode Print Language: Romansh Instructions: Cervical Strain (ED), Head Injury (ED), Contusion in Adults (ED) Referrals: YAYA LANGLEY DO [Primary Care Provider] - 1 week Discharge Date/Time: 01/25/24 18:51
--- NOTE | 2024-01-25 16:24 | CT_ITS ---
The [address] [address] Patient Name: STEVE JOHNSON MRN: [facility]:[id number] date: 1955 Sex: F Assigned Patient Location: ER Current Patient Location: ER Accession/Order Number: [id number] Exam Date: 01/25/2024 16:18 Report Date: 01/25/2024 16:41 At the request of: IRMA MERCADO Procedure: CT cervical spine wo con CT head/brain wo con, CT cervical spine wo con, 01/25/2024 4:18 PM EDT INDICATION: trauma COMPARISON: Prior CT of the head dated 07/10 21 TECHNIQUE: Axial images of 3 mm are obtained from the base of the skull to vertex completed with Axial images of 2 mm are obtained from base of skull to T2 without contrast. Dose reduction techniques were achieved by using automated exposure control and/or adjustment of mA and/or kV according to patient size and/or use of iterative reconstruction technique. FINDINGS: The cerebral and cerebellar sulci as well as ventricular system are appropriate for age. There is no intracranial mass, mass effect, midline shift, intra or extra-axial fluid collection. No acute territorial infarction or hemorrhage is noted. Periventricular and centrum semiovale hypodensities are most likely consistent with microvascular ischemic changes. The visualized portions of orbits, mastoid air cells as well as paranasal sinuses are unremarkable. There is no suspicious osteolytic or osteoblastic lesion. No acute fracture or dislocation is noted. Multilevel degenerative changes of cervical spine are noted. CT/CT cervical spine wo con IMPRESSION: No acute intracranial process is identified. No acute fracture. Electronically authenticated by: SOUMYA JOSEPH Date: 01/25/2024 16:41
--- NOTE | 2024-01-25 16:24 | CT_ITS ---
The [address] [address] Patient Name: STEVE JOHNSON MRN: [facility]:[id number] date: 1955 Sex: F Assigned Patient Location: ER Current Patient Location: ER Accession/Order Number: [id number] Exam Date: 01/25/2024 16:18 Report Date: 01/25/2024 16:41 At the request of: IRMA MERCADO Procedure: CT head/brain wo con CT head/brain wo con, CT cervical spine wo con, 01/25/2024 4:18 PM EDT INDICATION: trauma COMPARISON: Prior CT of the head dated 07/10 21 TECHNIQUE: Axial images of 3 mm are obtained from the base of the skull to vertex completed with Axial images of 2 mm are obtained from base of skull to T2 without contrast. Dose reduction techniques were achieved by using automated exposure control and/or adjustment of mA and/or kV according to patient size and/or use of iterative reconstruction technique. FINDINGS: The cerebral and cerebellar sulci as well as ventricular system are appropriate for age. There is no intracranial mass, mass effect, midline shift, intra or extra-axial fluid collection. No acute territorial infarction or hemorrhage is noted. Periventricular and centrum semiovale hypodensities are most likely consistent with microvascular ischemic changes. The visualized portions of orbits, mastoid air cells as well as paranasal sinuses are unremarkable. There is no suspicious osteolytic or osteoblastic lesion. No acute fracture or dislocation is noted. Multilevel degenerative changes of cervical spine are noted. CT/CT head/brain wo con IMPRESSION: No acute intracranial process is identified. No acute fracture. Electronically authenticated by: SOUMYA JOSEPH Date: 01/25/2024 16:41
--- NOTE | 2024-01-25 16:30 | XR_ITS ---
The [address] [address] Patient Name: STEVE JOHNSON MRN: [facility]:[id number] date: 1955 Sex: F Assigned Patient Location: ER Current Patient Location: ER Accession/Order Number: [id number] Exam Date: 01/25/2024 16:24 Report Date: 01/25/2024 17:14 At the request of: IRMA MERCADO Procedure: XR chest 1V EXAM: XR chest 1V HISTORY: trauma COMPARISON: 12/10/2023 TECHNIQUE: Chest X-ray AP, 1 view FINDINGS: Support devices: None. Lungs/pleura: No consolidation, effusion, or pneumothorax. Left basilar atelectasis. Heart and mediastinum: Cardiomegaly. Bones: No acute abnormality identified. XR/XR chest 1V Impression: Cardiomegaly and left basilar atelectasis. No pneumothorax. Electronically authenticated by: MASON TERRAZAS Date: 01/25/2024 17:14
[2024-01-25] MEDS: ACETAMINOPHEN 325 MG TABLET 650 MG PO (16:32)
--- NOTE | 2024-01-25 18:08 | PC.NURSE ---
attempted to call Dinora Lowe -- no answer. Family of pt at bedside
== END 2024-01-25 18:51 | disposition home or self-care (01) ==
PROVIDERS: Emergency Provider Emergency Medicine; PCP Internal Medicine
DX: S00.03XA Contusion of scalp, initial encounter (principal); S16.1XXA Strain of muscle, fascia and tendon at neck level, initial encounter; S29.9XXA Unspecified injury of thorax, initial encounter; S30.0XXA Contusion of lower back and pelvis, initial encounter; Z66 Do not resuscitate; W19.XXXA Unspecified fall, initial encounter; Z79.82 Long term (current) use of aspirin; H91.93 Unspecified hearing loss, bilateral; D64.9 Anemia, unspecified
CPT/HCPCS: 36415; 70450; 71045; 72125; 72170; 85007; 85027; 99284

== ENCOUNTER 2024-01-27 04:52 | Outpatient (REF) | payer MEDICARE, MEDICAID, SELFPAY ==
--- OUTSIDE RECORDS SUMMARY | 2024-01-27 04:56 | XMS_ITS | CCD ---
Author Organization [facility] ion [facility] Care Team Providers Care Rn Traveling Name Role Phone MARKER, DR SALINAS Consulting Unavailable VALONE, DR JAVIER Primary Care Unavailable MARKER, DR SALINAS Attending Unavailable MARKER, DR SALINAS Admitting Unavailable BENEDICT, DR TINEO Admitting Unavailable BENEDICT, DR TINEO Attending Unavailable VALONE, DR JAVIER Attending Unavailable VALONE, DR JAVIER Admitting Unavailable VALONE, DR JAVIER Primary Care Unavailable ROSALBA, DR NANI Haley Admitting Unavailalice ANVARRETE, DR NANI Haley Attending UnavailANDER Lance JR Primary Care Physician [phone] KOBE CRESPO Attending Unavailable KOBE CRESPO Attending Unavailable KOBE CRESPO Attending Unavailable KOBE CRESPO Attending Unavailable Ander Langley DO Primary Care Provider [phone] Unavailable Primary Care Provider UnavailANDER Lance Primary [...] 8 hours as needed. 0 05/20/2023 Active [id number] 200 actuat albuterol 0.09 mg/actuat metered dose [...] (ALISSA NASE) 50 mcg/actuation nasal spray 1 [place] once daily. 0 Active furosemide 20 mg [...] times a day. 0 05/15/2023 Active sennosides, chcf 8.6 mg oral tablet (1 source) Start: [...] source) Long-term current use of aspirin; Translations: [jail (current) use of aspirin] Onset: 4 Episodic [...] Range Facility Consultation Noteon 12-27-19 Consultation Note [id number] FF Normal [facility] Pathology Noteon 12-27-2023 Pathology Note [id number]#1.00T IFF Normal [facility] RAD - Nuclear Medicine Repor ton 12-27-2023 RAD - Nuclear Medicine Report [id number]#1.00T IFF Normal [facility] Office Visiton 12-16-2023 Follow-up visit [id number] Kelby Johnson 1955 F Date Provider Department Center 12/16/2023 [id number] AGUILAR CARD [facility] Family History Problem Relation Age of Onset Coronary artery disease Mother Cancer Father Diabetes Father Family Status - Relation Status Age at Mother Father Level of Service:71651 DC OFFICE/OUTPATIENT ESTABLISHED LOW MDM 20 MIN Normal [facility] Operative Reporton Operative Report [id number] IFF Normal [facility] Armani 12-08-2023 CNPN Telephone (RADTSA) CANDIS JOHNSON ([id number]) 1955 F DEF Date Time Provider Department [...] Gleason and Dr. Avilez. Images pushed to [facility]. Allergies As of Date: 12/08/2023 (No [...] fluticasone (FLONASE) 50 mcg/actuation nasal spray 1 [place] once daily. - magnesium hydroxide (MOM) 400 [...] Status:Closed by MECCA BOYLE on 12/08/23 [facility] CNOVon 12-07-2023 CNOV Office Visit (RADTMN ) CANDIS JOHNSON ([id number]) 1955 F DEF Date Time Provider Department [...] when she presented to Dr. Crespo in [place] from her nursing facility with symptoms [...] status: Post-menopausa (more content not included)... Normal [facility] Consultation Noteon 12-02-19 Consultation Note [id number] FF Normal [facility] NM PET/CT SKULL-THIGH INITon 12-02-2023 NM PET/CT [...] * Radiopharmaceutical Dose: 9.7 mCi * Radiopharmaceutical: K70-Rkrsiqismrgjarlaki (FDG) COMPARISON: No previous FDG PET/CT available CORRELATION: [facility] MRI pelvis 11/10/2023; [facility] CT abdomen/pelvis 06/06/2023 RESULT: REFERENCES: SUV reference values: * Blood pool (descending aorta) activity: SUVmax 3.0 * Background liver activity: SUVmax 3.3 Cigar Head Puncher (topogram) images: No additional findings. Notes and [...] signed by: (more content not included)... Normal [facility] Orders Onlyon 12-01-2023 Orders Only [id number] Kelby Johnson 1955 F Date Provider Department Center 12/01/2023 [id number], [facility] Gail Barreto Family History Problem Relation Age of Onset Coronary artery disease Mother Cancer Father Diabetes Father Family Status - Relation Status Age at Mother Father Normal [facility] CNOVon 11-28-2023 CNOV Office Visit (RADTSA ) ARICANDIS Franklin Alisa ([id number]) 1955 F DEF Date Time Provider Department [...] the Department of Radiation Oncology at the [facility] with El Ahmadi MD. She was accompanied today by her son. She is mostly deaf and much of the conversation was conducted with the son who is also the medical power of cylinder batcher. Final recommendations will be communicated back to the requesting physician by way of the shared medical record, or letter to requesting physician via US mail. HISTORY OF PRESENT ILLNESS: Ms. Johnson is a 68-year old deaf woman residing in an assisted living facility in [place], [place] and her son is her medical power of cylinder batcher. Per note from Dr. Gleason on 11/24/2023: [...] the final pathology as below Path Number: [id number] -- Diagnosis -- A. LEFT CERVIX, BIOPSY: [...] IIIb cervical cancer and was evaluated by [facility] oncology and due to the fact fixed [...] lives in an assisted living facility in [place], [place]. She had a legal guardian in the past and her son is n (more content not included)... Normal [facility] Armani 11-25-2023 RADHIKAN Telephone (RADTSA) CANDIS JOHNSON ([id number]) 1955 F DEF Date Time Provider Department 11/25/23 EL AHMADI During your visit today, we recorded the following information about you: Mecca Boyle LPN 11/25/2023 2:29 PM Signed I called and spoke to Angelina at [facility] and she said Candis does [...] language. She has been a resident at [facility] assisted living for 4-5 years and does very well there per Landen. I notified Landen that Dr. Ahmadi is ordering a PET scan, rad onc consult at [facility] and trying to move up Candis's consult with Dr. Mckinley goran. Landen states between himself and [facility] transportation should not be an issue. Yumiko: 1. Please schedule PET scan goran. 2. Rad Onc consult at [facility] 3. Move up Dr. Mckinley's consult goran. Dr. Mckinley are you or your staff able to assist in rescheduling Ms. Johnson's consult with you goran per Dr. Ahmadi? She is currently scheduled for consult on 12/28/23. Thanks PARAG Aguilar Tiffany 11/28/2023 7:[address] [facility] RAD onc consult Nathalie Saleh RN 11/28/2023 7:[address] Ahmadi- order pending your approval. PARAG Alves Saju, MD 11/28/2023 10:28 AM Signed Rad onc consult order signed for [facility] referral (brachytherapy). Can cancel consult request with Dr. Mckinley - she is established with [facility] out of [place] already (Dr. Avilez). Will need repeat MRI [...] patients son, he would like scheudled at [facility] since its easiest for nusing home I sent over order will check on later, thanks Yumiko Mariee 12/08/2023 12:08 PM Signed MRI not needed per chat Allergies As of Date: 11/25/2023 (Not on File) Date Reviewed: Never Reviewed Reason for Visit: Orders [681] Patient Update [1234] Primary Visit Diagnosis: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) [C53.8] Order(s):RAD/ONC CONSULT [9037] Order #: [id number]: 1 FUTURE MRI FEMALE PELVIS WO/W IVCON [4204065] Order #: [id number] FUTURE [] iv contrast (will be provided [...] fluticasone (FLONASE) 50 mcg/actuation nasal spray 1 [place] once daily. - mag (more content not included)... Normal [facility] OUTSIDE SURG PATH SLIDE REVI EWon 11-25-2023 CASE REPORT Normal [facility] Comment on above: Order Comment: Speci men Type: FORMALIN-FIXED PARAFFIN-EMBEDDED TISSUE SPECIMEN Ordering Facility: [facility] Review Address: , , Result Comment: Surg [facility] Pathology Report Case: [id number] Authorizing Provider: Mariam Mckinley MD Collected: 11/25/2023 02:11 PM Ordering Location: [facility] Received: 11/25/2023 02:12 PM [facility] Pathologist: Ernestina Parada MD Specimen: Slide(s), 5 SLIDES [id number] Performed By: #### L [id number] #### [facility] CLIA [id number] [address] [place] [address] [place] DIAGNOSIS COMMENT 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 Normal [facility] Comment on above: Order Comment: Speci men Type: FORMALIN-FIXED PARAFFIN-EMBEDDED TISSUE SPECIMEN Ordering Facility: [facility] Review Address: , , Performed By: #### L [id number] #### [facility] CLIA [id number] [address] [place] [address] FINAL DIAGNOSIS Normal [facility] Comment on above: Order Comment: Speci men Type: FORMALIN-FIXED PARAFFIN-EMBEDDED TISSUE SPECIMEN Ordering Facility: [facility] Review Address: , , Result Comment: Outs miguel angel case from [place], [place] (VS [id number], collected 11/11/2023) A. Left cervix, biopsy: - Invasive squamous cell carcinoma, see comment. B. 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 Performed By: #### L [id number] #### [facility] CLIA [id number] [address] [place] [address] FINAL PERFORMING LAB Normal [facility] Comment on above: Order Comment: Speci men Type: FORMALIN-FIXED PARAFFIN-EMBEDDED TISSUE SPECIMEN Ordering Facility: [facility] Review Address: , , Result Comment: Diag nostic interpretation performed at [facility], [address] [place] [address] CLIA# [id number] Calcine Furnace Loader: Navdeep Pickering M.D. Performed By: #### L [id number] #### [facility] CLIA [id number] [address] [place] [address] OF [facility] Office Visiton 11-21-2023 Follow-up visit [id number] Kelby Johnson A 1955 F Date Provider Department Center 11/21/2023 GUERDA RYDER Family History Problem Relation Age of Onset Coronary artery disease Mother Cancer Father Diabetes Father Family Status - Relation Status Age at Mother Father Level of Service:55776 DC OFFICE/OUTPATIENT ESTABLISHED LOW MDM 20 MIN [facility] Orders Onlyon 11-21-2023 Orders Only [id number] Kelby Johnson 1955 F Date Provider Department Center 11/21/2023 MARV CASAREZ CARD [facility] Family History Problem Relation Age of Onset Coronary artery disease Mother Cancer Father Diabetes Father Family Status - Relation Status Age at Mother Father Normal [facility] Consultation Noteon 11-14-19 Consultation Note [id number] IFF Normal [facility] Glucose,Whole Bloodon 2023 Glucose [Mass/Vol] 124 mg/dL High 65-105 [facility] Glucose [Mass/Vol] 87 mg/dL Normal 65-105 [facility] POC Glucose Fingerstickon Glucose [Mass/Vol] 124 mg/dL High 65 - 105 mg/dL [facility] Interpretation and review of laboratory results Abnormal [facility] SECMendor [facility] Glucose [Mass/Vol] 87 mg/dL 65 - 105 mg/dL [facility] SECMendor [facility] SECMendor [facility] CBC with Auto Differentialon 11-11-2023 Basophils (Bld) [#/Vol] 0.03 10*3/uL [facility] Basophils/100 WBC (Bld) 0 % 0 - 2 % [facility] Eosinophils (Bld) [#/Vol] 0.31 10*3/uL [facility] Eosinophils/100 WBC (Bld) 5 % High 1 - 4 % [facility] Erythrocyte distribution width (RBC) [Ratio] 16.1 [...] 1 % High 0 [facility] SECMendor [facility] Interpretation and review of laboratory results Abnormal [facility] Lymphocytes/100 WBC (Bld) 18 % Low 24 - 43 % [facility] Lymphocytes/100 WBC (Bld) 1.19 % [facility] MCH (RBC) [Entitic mass] 27.4 pg 25.2 - 33.5 pg [facility] MCHC (RBC) [Mass/Vol] 28.5 g/dL 28.4 - 34.8 g/dL [facility] MCV (RBC) [Entitic vol] 96.0 fL 82.6 - 102.9 fL [facility] Monocytes/100 WBC (Bld) 14 % High 3 - 12 % [facility] Monocytes/100 WBC (Bld) 0.91 % [facility] Neutrophils/100 WBC (Bld) 62 % 36 - 65 % [facility] Nucleated RBC/100 WBC (Bld) [Ratio] 0.0 % 0.0 per 100 WBC [facility] Platelet mean volume (Bld) [Entitic vol] 8.6 fL 8.1 - 13.5 fL [facility] Platelets (Bld) [#/Vol] 413 10*3/uL [facility] RBC (Bld) [#/Vol] 3.29 10*6/uL Low 3.95 - 5.1 1 m/uL [facility] RBC (Bld) [#/Vol] ANISOCYTOSIS PRESENT [facility] Segmented neutrophils/100 WBC (Bld) 4.27 % [facility] WBC other (Bld) [#/Vol] 6.8 [facility] CBC with Diffon 11-11-2023 Abs. Basophil 0.03 k/uL Normal 0.00-0.20 [facility] Comment on above: Performed By: #### C P, CDP #### [facility] [address] [place] [address] [employer] Crew Member: Guillaume Roman MD Abs.Imm.Granulocyte 0.04 k/uL Normal 0.00-0.30 [facility] Comment on above: Performed By: #### C P, CDP #### [facility] [address] [place], [place] [id number] [employer] Member: Guillaume Roman MD Abs.Neutrophil (Seg) 4.27 k/uL Normal 1.50-8.10 [facility] Comment on above: Performed By: #### C P, CDP #### [address] [address] [employer] Member: Guillaume Roman MD Basophils/100 WBC (Bld) 0 % Normal 0-2 [facility] Comment on above: Performed By: #### C P, CDP #### [address] [address] [employer] Member: Guillaume Roman MD Eosinophils (Bld) [#/Vol] 0.31 10*3/uL Normal 0.00-0.44 [facility] Comment on above: Performed By: #### C P, CDP #### [place] [address] [employer] Member: Guillaume Roman MD Eosinophils/100 WBC (Bld) 5 % High 1-4 [facility] Comment on above: Performed By: #### C P, CDP #### [address] [address] [employer] Member: Guillaume Roman MD Erythrocyte distribution width (RBC) [Ratio] 16.1 % High 11.8-14.4 [facility] Comment on above: Performed By: #### C P, CDP #### [address] [address] [employer] Member: Guillaume Roman MD Hematocrit (Bld) [Volume fraction] 31.6 % Low 36.3-47.1 [facility] Comment on above: Performed By: #### C P, CDP #### [address] [address] [employer] Member: Guillaume Roman MD Hemoglobin (Bld) [Mass/Vol] 9.0 g/dL Low 11.9-15.1 [facility] Comment on above: Performed By: #### C P, CDP #### [address] [address] [employer] Member: Guillaume Roman MD Immature granulocytes/100 WBC (Bld) 1 % High 0 [facility] Comment on above: Performed By: #### C P, CDP #### [address] [address] [employer] Member: Guillaume Roman MD Lymphocytes (Bld) [#/Vol] 1.19 10*3/uL Normal 1.10-3.70 [facility] Comment on above: Performed By: #### C P, CDP #### [address] [address] [employer] Member: Guillaume Roman MD Lymphocytes/100 WBC (Bld) 18 % Low 24-43 [facility] Comment on above: Performed By: #### C P, CDP #### [address] [address] [employer] Member: Guillaume Roman MD MCH (RBC) [Entitic mass] 27.4 pg Normal 25.2-33.5 [facility] Comment on above: Performed By: #### C P, CDP #### [place] [address] [employer] Member: Guillaume Roman MD MCHC (RBC) [Mass/Vol] 28.5 g/dL Normal 28.4-34.8 [facility] Comment on above: Performed By: #### C P, CDP #### [address] [address] [employer] Crew Member: Guillaume Roman MD MCV (RBC) [Entitic vol] 96.0 fL Normal 82.6-102.9 [facility] Comment on above: Performed By: #### C P, CDP #### [address] [address] [employer] Crew Member: Guillaume Roman MD Monocytes (Bld) [#/Vol] 0.91 10*3/uL Normal 0.10-1.20 [facility] Comment on above: Performed By: #### C P, CDP #### [address] [address] [employer] Member: Guillaume Roman MD Monocytes/100 WBC (Bld) 14 % High 3-12 [facility] Comment on above: Performed By: #### C P, CDP #### [address] [address] [employer] Member: Guillaume Roman MD Neutrophil (Seg) 62 % Normal 36-65 [facility] Comment on above: Performed By: #### C P, CDP #### [address] [address] [employer] Member: Guillaume Roman MD NRBC Automated 0.0 per 100 WBC Normal 0.0 [facility] Comment on above: Performed By: #### C P, CDP #### [address] [address] [employer] Crew Member: Guillaume Roman MD Platelet mean volume (Bld) [Entitic vol] 8.6 fL Normal 8.1-13.5 [facility] Comment on above: Performed By: #### C P, CDP #### [address] [address] [employer] Crew Member: Guillaume Roman MD Platelets (Bld) [#/Vol] 413 10*3/uL Normal 138-453 [facility] Comment on above: Performed By: #### C P, CDP #### [address] [address] [employer] Crew Member: Guillaume Roman MD RBC (Bld) [#/Vol] 3.29 10*6/uL Low 3.95-5.11 [facility] Comment on above: Performed By: #### C P, CDP #### [address] [address] [employer] Crew Member: Guillaume Roman MD RBC morphology finding Nom (Bld) ANISOCYTOSIS PRESENT Normal [facility] Comment on above: Performed By: #### C P, CDP #### [address] [address] [employer] Crew Member: Guillaume Roman MD WBC (Bld) [#/Vol] 6.8 10*3/uL Normal 3.5-11.3 [facility] Comment on above: Performed By: #### C P, CDP #### [address] [address] [employer] Crew Member: Guillaume Roman MD Comp Metabolic Profon 2023 Albumin [Mass/Vol] 3.6 g/dL Normal 3.5-5.2 [facility] Comment on above: Performed By: #### C P, CDP #### [address] [address] [employer] Member: Guillaume Roman MD Albumin/Glob Ratio 2.0 Normal 1.0-2.5 [facility] Comment on above: Performed By: #### C P, CDP #### [address] [address] [employer] Crew Member: Guillaume Roman MD Alkaline Phos 93 U/L Normal 35-104 [facility] Comment on above: Performed By: #### C P, CDP #### [address] [address] [employer] Member: Guillaume Roman MD ALT [Catalytic activity/Vol] 14 U/L Normal 10-35 [facility] Comment on above: Performed By: #### C P, CDP #### [facility] [address] [place] [address] [employer] Member: Guillaume Roman MD Anion gap [Moles/Vol] 10 mmol/L Normal 9-16 [facility] Comment on above: Performed By: #### C P, CDP #### [address] [address] [employer] Member: Guillaume Roman MD AST [Catalytic activity/Vol] 33 U/L Normal 10-35 [facility] Comment on above: Performed By: #### C P, CDP #### [address] [address] [employer] Crew Member: Guillaume Roman MD Bilirubin [Mass/Vol] 0.3 mg/dL Normal 0.00-1.20 [facility] Comment on above: Performed By: #### C P, CDP #### [address] [address] [employer] Member: Guillaume Roman MD Calcium [Mass/Vol] 8.8 mg/dL Normal 8.6-10.4 [facility] Comment on above: Performed By: #### C P, CDP #### [address] [address] [employer] Crew Member: Guillaume Roman MD Chloride [Moles/Vol] 109 mmol/L High 98-107 [facility] Comment on above: Performed By: #### C P, CDP #### [address] [address] [employer] Crew Member: Guillaume Roman MD CO2 [Moles/Vol] 19 mmol/L Low 20-31 [facility] Comment on above: Performed By: #### C P, CDP #### [address] [address] [employer] Crew Member: Guillaume Roman MD Creatinine [Mass/Vol] 1.0 mg/dL High 0.50-0.90 [facility] Comment on above: Performed By: #### C P, CDP #### [address] [address] [employer] Crew Member: Guillaume Roman MD GFR/1.73 sq M.predicted among non-blacks MDRD (S/P/Bld) [Vol rate/Area] 59 mL/min/{1.73_m2} Low >60 [facility] Comment on above: Result Comment: These results [...] Performed By: #### C P, CDP #### [address] [address] [employer] Crew Member: Guillaume Roman MD Glucose [Mass/Vol] 97 mg/dL Normal 74-99 [facility] Comment on above: Performed By: #### C P, CDP #### [address] [address] [employer] Crew Member: Guillaume Roman MD Potassium [Moles/Vol] 4.3 mmol/L Normal 3.7-5.3 [facility] Comment on above: Result Comment: SPEC IMEN SLIGHTLY HEMOLYZED, RESULTS MAY BE ADVERSELY AFFECTED. Performed By: #### C P, CDP #### [address] [address] [employer] Crew Member: Guillaume Roman MD Protein [Mass/Vol] 5.4 g/dL Low 6.6-8.7 [facility] Comment on above: Performed By: #### C P, CDP #### [address] [id number] [employer] Member: Guillaume Roman MD Sodium [Moles/Vol] 138 mmol/L Normal 136-145 [facility] Comment on above: Performed By: #### C P, CDP #### [facility] [address] [place], [place] [id number] [employer] Crew Member: Guillaume Roman MD Urea nitrogen [Mass/Vol] 11 mg/dL Normal 8-23 [facility] Comment on above: Performed By: #### C P, CDP #### [facility] [address] [place] [address] Air Crew Member: Guillaume Roman MD Comprehensive Metabolic Pane [facility] 11-11-2023 Albumin [Mass/Vol] 3.6 g/dL 3.5 - 5.2 g/dL [facility] Albumin/Globulin [Mass ratio] 2.0 {ratio} 1.0 - 2.5 [facility] ALP [Catalytic activity/Vol] 93 U/L 35 - 104 U/L [facility] ALT [Catalytic activity/Vol] 14 U/L 10 - 35 U/L [facility] Anion gap [Moles/Vol] 10 mmol/L 9 - 16 mmol/L [facility] AST [Catalytic activity/Vol] 33 U/L 10 - 35 U/L [facility] Bilirubin [Mass/Vol] 0.3 mg/dL 0.00 - 1.20 mg/dL [facility] Calcium [Mass/Vol] 8.8 mg/dL 8.6 - 10. 4 mg/dL [facility] Chloride [Moles/Vol] 109 mmol/L High 98 - 10 7 mmol/L [facility] CO2 [Moles/Vol] 19 mmol/L Low 20 - 31 mmol/L [facility] Creatinine [Mass/Vol] 1.0 mg/dL High 0.50 - 0.90 mg/dL [facility] Est, Glom Filt Rate 59 Low - [facility] Comment on above: These results are not [...] [Mass/Vol] 97 mg/dL 74 - 99 mg/dL [employer] Interpretation and review of laboratory results Abnormal [employer] Potassium [Moles/Vol] 4.3 mmol/L 3.7 - 5.3 mmol/L [employer] Comment on above: SPECIMEN SLIGHTLY HE MOLYZED, RESULTS MAY BE ADVERSELY AFFECTED. Protein [Mass/Vol] 5.4 g/dL Low 6.6 - 8.7 g/dL [employer] Sodium [Moles/Vol] 138 mmol/L 136 - 145 mmol/L [employer] Urea nitrogen [Mass/Vol] 11 mg/dL 8 - 23 mg/dL [employer] Consultation Noteon 11-11-19 24 Consultation Note [id number]#1.00T IFF Normal [facility] EKG 12 LeadOrdered By: Butch Nascimento on 11-11-2023 Atrial Rate 62 BPM [employer] Work Phone: P [place] 40 degrees [employer] Work Phone: P-R Interval 168 ms [employer] Work Phone: Q-T Interval 404 ms [employer] Work Phone: QTc Calculation (Bazett) 410 ms [employer] Work Phone: R [place] 6 degrees [employer] Work Phone: T [place] 20 degrees [employer] Work Phone: Ventricular Rate 62 BPM [employer] Work Phone: EKG 12 Leadon 11-11-2023 Normal sinus rhythm Cannot rule out Anterior infarct , age undetermined Abnormal ECG No previous ECGs available [facility] STWily Walter MD / Butch Nascimento MD - 11/11/2023 Normal sinus rhythm Cannot rule out Anterior infarct , age undetermined Abnormal ECG No previous ECGs available [facility] [employer] Atrial Rate 65 BPM [facility] P [place] 42 degrees [facility] P-R Interval 172 ms [facility] Q-T Interval 406 ms [facility] [employer] QTc Calculation (Bazett) 422 ms [facility] R [place] 7 degrees [facility] T [place] 19 degrees [facility] Ventricular Rate 65 BPM [facility] [facility] [employer] Normal sinus rhythm Normal ECG When compared with ECG of 10-NOV-2023 04:31, No significant change was found [facility] STWily Walter MD / Butch Nascimento MD - 11/11/2023 Normal sinus rhythm Normal ECG When compared with ECG of 10-NOV-2023 04:31, No significant change was found [facility] [employer] Glucose,Whole Bloodon 2023 Glucose [Mass/Vol] 120 mg/dL High 65-105 [facility] Glucose [Mass/Vol] 92 mg/dL Normal 65-105 [facility] Glucose [Mass/Vol] 83 mg/dL Normal 65-105 [facility] Glucose [Mass/Vol] 83 mg/dL Normal 65-105 [facility] Glucose [Mass/Vol] 88 mg/dL Normal 65-105 [facility] No Panel InformationOrdered By: Butch Nascimento on 11-11-2023 QRS Duration 86 ms [employer] [facility] [employer] Work Phone: [employer] [facility] [employer] Work Phone: POC Glucose Fingerstickon Glucose [Mass/Vol] 120 mg/dL High 65 - 105 mg/dL [facility] [employer] Interpretation and review of laboratory results Abnormal [facility] [employer] Glucose [Mass/Vol] 92 mg/dL 65 - 105 mg/dL [facility] Glucose [Mass/Vol] 83 mg/dL 65 - 105 mg/dL [facility] Glucose [Mass/Vol] 83 mg/dL 65 - 105 mg/dL [facility] Glucose [Mass/Vol] 88 mg/dL 65 - 105 mg/dL [facility] RAD - MRI Reporton RAD - MRI Report [id number] IFF Normal [facility] Surgical Pathology Reporton 11-11-2023 Surgical Pathology Report (NOTE) [id number] [employer] CONSULTING PATHOLOGISTS [facility] ANATOMIC PATHOLOGY [address] [place] [address]. [place], [place] [address] SURGICAL PATHOLOGY CONSULTATION Patient Name: A[facility] Rec: [id number] Path Number: [id number] Collected: 11/11/2023 Received: 11/14/2023 Reported: 11/17/2023 08:30 [...] JAYASHREE AVILEZ, [address] WAS SENT TO [facility] FOR PD-L1 EXPRESSION TESTING. THE RESULTS ARE FOLLOWS: PD-L1 EXPRESSION: POSITIVE TUMOR PROPORTION SCORE (TPS): 15% COMBINED POSITIVE SCORE (CPS): 17 PLEASE SEE [facility] COMPLETE REPORT ([id number]) FOR DETAILS. Candy Banegas Clinical Information Pre-Op [...] squamous carcinoma. Control reacts as expected. Normal [facility] BLOOD BANK SPECIMENon 2023 [facility] CBC with Auto Differentialon 11-10-2023 Basophils (Bld) [#/Vol] [facility] Basophils/100 WBC (Bld) 0 % 0 - 2 % [facility] Eosinophils (Bld) [#/Vol] 0.03 10*3/uL [facility] Eosinophils/100 WBC (Bld) 0 % Low 1 - 4 % [facility] Erythrocyte distribution width (RBC) [Ratio] 15.9 % High 11.8 - 14.4 % [facility] Hematocrit (Bld) [Volume fraction] 29.5 % Low 36.3 - 47.1 % [facility] Hemoglobin (Bld) [Mass/Vol] 8.7 g/dL Low 11.9 - 15.1 g/dL [facility] Immature granulocytes (Bld) [#/Vol] 0.06 10*3/uL [facility] Immature granulocytes/100 WBC (Bld) 1 % High 0 [facility] Interpretation and review of laboratory results Abnormal [facility] Lymphocytes/100 WBC (Bld) 10 % Low 24 - 43 % [facility] Lymphocytes/100 WBC (Bld) 0.86 % Low [facility] MCH (RBC) [Entitic mass] 26.9 pg 25.2 - 33.5 pg [facility] MCHC (RBC) [Mass/Vol] 29.5 g/dL 28.4 - 34.8 g/dL [facility] MCV (RBC) [Entitic vol] 91.3 fL 82.6 - 102.9 fL [facility] Monocytes/100 WBC (Bld) 9 % 3 - 12 % [facility] Monocytes/100 WBC (Bld) 0.72 % [facility] Neutrophils/100 WBC (Bld) 80 % High 36 - 65 % [facility] Nucleated RBC/100 WBC (Bld) [Ratio] 0.0 % 0.0 per 100 WBC [facility] Platelet mean volume (Bld) [Entitic vol] 8.5 fL 8.1 - 13.5 fL [facility] Platelets (Bld) [#/Vol] 389 10*3/uL [facility] RBC (Bld) [#/Vol] 3.23 10*6/uL Low 3.95 - 5.1 1 m/uL [facility] RBC (Bld) [#/Vol] ANISOCYTOSIS PRESENT [facility] Segmented neutrophils/100 WBC (Bld) 6.82 % [facility] WBC other (Bld) [#/Vol] 8.5 [facility] CBC with Diffon 11-10-2023 Abs. Basophil <0.03 Normal 0.00-0.20 [facility] Comment on above: Performed By: #### C DP GLYHGB #### [facility] [place] [address] [employer] Member: Guillaume Roman MD Abs.Imm.Granulocyte 0.06 k/uL Normal 0.00-0.30 [facility] Comment on above: Performed By: #### C DP GLYHGB #### [address] [address] [employer] Member: Guillaume Roman MD Abs.Neutrophil (Seg) 6.82 k/uL Normal 1.50-8.10 [facility] Comment on above: Performed By: #### C DP, GLYHGB #### [address] [address] [employer] Member: Guillaume Roman MD Basophils/100 WBC (Bld) 0 % Normal 0-2 [facility] Comment on above: Performed By: #### C DP, GLYHGB #### [address] [address] [employer] Member: Guillaume Roman MD Eosinophils (Bld) [#/Vol] 0.03 10*3/uL Normal 0.00-0.44 [facility] Comment on above: Performed By: #### C DP, GLYHGB #### [address] [address] [employer] Member: Guillaume Roman MD Eosinophils/100 WBC (Bld) 0 % Low 1-4 [facility] Comment on above: Performed By: #### C DP, GLYHGB #### [address] [address] [employer] Member: Guillaume Roman MD Erythrocyte distribution width (RBC) [Ratio] 15.9 % High 11.8-14.4 [facility] Comment on above: Performed By: #### C DP, GLYHGB #### [address] [address] [employer] Member: Guillaume Roman MD Hematocrit (Bld) [Volume fraction] 29.5 % Low 36.3-47.1 [facility] Comment on above: Performed By: #### C DP, GLYHGB #### [facility] [address] [place] [address] [place] [address] [employer] Member: Guillaume Roman MD Hemoglobin (Bld) [Mass/Vol] 8.7 g/dL Low 11.9-15.1 [facility] Comment on above: Performed By: #### C DP, GLYHGB #### [address] [address] [employer] Member: Guillaume Roman MD Immature granulocytes/100 WBC (Bld) 1 % High 0 [facility] Comment on above: Performed By: #### C DP, GLYHGB #### [address] [address] [employer] Member: Guillaume Roman MD Lymphocytes (Bld) [#/Vol] 0.86 10*3/uL Low 1.10-3.70 [facility] Comment on above: Performed By: #### C DP, GLYHGB #### [address] [address] [employer] Member: Guillaume Roman MD Lymphocytes/100 WBC (Bld) 10 % Low 24-43 [facility] Comment on above: Performed By: #### C DP, GLYHGB #### [address] [address] [employer] Member: Guillaume Roman MD MCH (RBC) [Entitic mass] 26.9 pg Normal 25.2-33.5 [facility] Comment on above: Performed By: #### C DP, GLYHGB #### [facility] [address] [place] [address] [employer] Member: Guillaume Roman MD MCHC (RBC) [Mass/Vol] 29.5 g/dL Normal 28.4-34.8 [facility] Comment on above: Performed By: #### C DP, GLYHGB #### [address] [address] [employer] Member: Guillaume Roman MD MCV (RBC) [Entitic vol] 91.3 fL Normal 82.6-102.9 [facility] Comment on above: Performed By: #### C DP, GLYHGB #### [address] [address] [employer] Member: Guillaume Roman MD Monocytes (Bld) [#/Vol] 0.72 10*3/uL Normal 0.10-1.20 [facility] Comment on above: Performed By: #### C DP, GLYHGB #### [address] [address] [employer] Member: Guillaume Roman MD Monocytes/100 WBC (Bld) 9 % Normal 3-12 [facility] Comment on above: Performed By: #### C DP, GLYHGB #### [address] [address] [employer] Member: Guillaume Roman MD Neutrophil (Seg) 80 % High 36-65 [facility] Comment on above: Performed By: #### C DP, GLYHGB #### [address] [address] [employer] Member: Guillaume Roman MD NRBC Automated 0.0 per 100 WBC Normal 0.0 [facility] Comment on above: Performed By: #### C DP, GLYHGB #### [address] [address] [employer] Member: Guillaume Roman MD Platelet mean volume (Bld) [Entitic vol] 8.5 fL Normal 8.1-13.5 [facility] Comment on above: Performed By: #### C DP, GLYHGB #### [address] [address] [employer] Member: Guillaume Roman MD Platelets (Bld) [#/Vol] 389 10*3/uL Normal 138-453 [facility] Comment on above: Performed By: #### C DP, GLYHGB #### [facility] [address] [place] [address] [employer] Member: Guillaume Roman MD RBC (Bld) [#/Vol] 3.23 10*6/uL Low 3.95-5.11 [facility] Comment on above: Performed By: #### C DP, GLYHGB #### [facility] [address] [place] [address] [employer] Member: Guillaume Roman MD RBC morphology finding Nom (Bld) ANISOCYTOSIS PRESENT Normal [facility] Comment on above: Performed By: #### C DP, GLYHGB #### [facility] [address] [place] [address] [employer] Member: Guillaume Roman MD WBC (Bld) [#/Vol] 8.5 10*3/uL Normal 3.5-11.3 [facility] Comment on above: Performed By: #### C DP, GLYHGB #### [facility] [address] [place] [address] [employer] Member: Guillaume Roman MD CT HEAD WO CONTRASTon [...] True Mccall MD 11/10/23 Final result Normal [facility] CT Head WO contraston 2023 No acute intracrania l abnormality. [facility] EXAMINATION: CT OF THE HEAD [...] of the visualized skull or soft tissues. [facility] True Mccall MD - 11/10/2023 [...] soft tissues. IMPRESSION: No acute intracranial abnormality. [facility] Radiology Study observation (narrative) [facility] CT Head WO contrastOrdered B y: True Mccall on 11-10-2023 [facility] Work Phone: Comp Metabolic Pr/rfx MGon 0 11-10-2023 Albumin [Mass/Vol] 3.5 g/dL Normal 3.5-5.2 [facility] Comment on above: Performed By: #### R EJEC, CMPX, LIPR ####[facility] [address] [place], [place] [id number])[phone] Director: Guillaume Roman MD Albumin/Glob Ratio 2.0 Normal 1.0-2.5 [facility] Comment on above: Performed By: #### R EJEC, CMPX, LIPR ####[facility] [address] [place], [place] [id number])[phone] Director: Guillaume Rmoan MD Alkaline Phos 85 U/L Normal 35-104 [facility] Comment on above: Performed By: #### R EJEC, CMPX, LIPR ####[facility] [address] [place], [place] [phone] Director: Guillaume Roman MD ALT [Catalytic activity/Vol] 9 U/L Low 10-35 [facility] Comment on above: Performed By: #### R EJEC, CMPX, LIPR ####[employer] [address] [place], [place] [phone] Director: Guillaume Roman MD Anion gap [Moles/Vol] 12 mmol/L Normal 9-16 [facility] Comment on above: Performed By: #### R EJEC, CMPX, LIPR ####[facility] [address] [place], [place] [phone])[phone] Director: Guillaume Roman MD AST [Catalytic activity/Vol] 20 U/L Normal 10-35 [facility] Comment on above: Performed By: #### R EJEC, CMPX, LIPR ####[facility] [address] [place], [place] [phone] Director: Guillaume Roman MD Bilirubin [Mass/Vol] 0.2 mg/dL Normal 0.00-1.20 [facility] Comment on above: Performed By: #### R EJEC, CMPX, LIPR ####[facility] [address] [place], [place] [address])[phone] Director: Guillaume Roman MD Calcium [Mass/Vol] 8.4 mg/dL Low 8.6-10.4 [facility] Comment on above: Performed By: #### R EJEC, CMPX, LIPR ####[facility] [address] [place], [place] [id number])[phone] Director: Guillaume Roman MD Chloride [Moles/Vol] 108 mmol/L High 98-107 [facility] Comment on above: Performed By: #### R EJEC, CMPX, LIPR ####[facility] [address] [place], [place] [id number])[phone] Director: Guillaume Roman MD CO2 [Moles/Vol] 17 mmol/L Low 20-31 [facility] Comment on above: Performed By: #### R EJEC, CMPX, LIPR ####[facility] [address] [place], [place] [phone] Director: Guillaume Roman MD Creatinine [Mass/Vol] 0.9 mg/dL Normal 0.50-0.90 [facility] Comment on above: Performed By: #### R EJEC, CMPX, LIPR ####[facility] [address] [place], [place] [phone] Director: Guillaume Roman MD GFR/1.73 sq M.predicted among non-blacks MDRD (S/P/Bld) [Vol rate/Area] 66 mL/min/{1.73_m2} Normal >60 [facility] Comment on above: Result Comment: These results [...] Performed By: #### R FREDO CMPX, LIPR ####[facility] [address] [place], [place] [address])[phone] Director: Guillaume Roman MD Glucose [Mass/Vol] 99 mg/dL Normal 74-99 [facility] Comment on above: Performed By: #### R KELLEEC, CMPX, LIPR ####[facility] [address] [place], [place] [address])[phone] Director: Guillaume Roman MD Potassium [Moles/Vol] 4.5 mmol/L Normal 3.7-5.3 [facility] Comment on above: Result Comment: SPEC IMEN SLIGHTLY HEMOLYZED, RESULTS MAY BE ADVERSELY AFFECTED. Performed By: #### R EJECALIAZX, LIPR ####[facility] [address] [place] [address])[phone] Director: Guillaume Roman MD Protein [Mass/Vol] 5.0 g/dL Low 6.6-8.7 [facility] Comment on above: Performed By: #### R EJEC, CMPX, LIPR ####[facility] [address] [place], [place] [address])[phone] Director: Guillaume Roman MD Sodium [Moles/Vol] 137 mmol/L Normal 136-145 [facility] Comment on above: Performed By: #### R EJEC, CMPX, LIPR ####[facility] [address] [place] [address] Lab Director: Guillaume Roman MD Urea nitrogen [Mass/Vol] 10 mg/dL Normal 8-23 [facility] Comment on above: Performed By: #### R EJEC, CMPX, LIPR ####[facility] [address] [place] [address] lab Director: Guillaume Roman MD Comprehensive Metabolic Pane l w/ Reflex to MGon 11-10-2023 Albumin [Mass/Vol] 3.5 g/dL 3.5 - 5.2 g/dL [facility] Albumin/Globulin [Mass ratio] 2.0 {ratio} 1.0 - 2.5 [facility] ALP [Catalytic activity/Vol] 85 U/L 35 - 104 U/L [facility] ALT [Catalytic activity/Vol] 9 U/L Low 10 - 35 U/L [facility] Anion gap [Moles/Vol] 12 mmol/L 9 - 16 mmol/L [facility] AST [Catalytic activity/Vol] 20 U/L 10 - 35 U/L [facility] Bilirubin [Mass/Vol] 0.2 mg/dL 0.00 - 1.20 mg/dL [facility] Calcium [Mass/Vol] 8.4 mg/dL Low 8.6 - 10. 4 mg/dL [facility] Chloride [Moles/Vol] 108 mmol/L High 98 - 10 7 mmol/L [facility] CO2 [Moles/Vol] 17 mmol/L Low 20 - 31 mmol/L [facility] Creatinine [Mass/Vol] 0.9 mg/dL 0.50 - 0.90 mg/dL [facility] Est, Glom Filt Rate 66 - PINF [facility] Comment on above: These results are not [...] [Mass/Vol] 99 mg/dL 74 - 99 mg/dL [facility] Interpretation and review of laboratory results Abnormal [facility] Potassium [Moles/Vol] 4.5 mmol/L 3.7 - 5.3 mmol/L [facility] Comment on above: SPECIMEN SLIGHTLY HE MOLYZED, RESULTS MAY BE ADVERSELY AFFECTED. Protein [Mass/Vol] 5.0 g/dL Low 6.6 - 8.7 g/dL [facility] Sodium [Moles/Vol] 137 mmol/L 136 - 145 mmol/L [facility] Urea nitrogen [Mass/Vol] 10 mg/dL 8 - 23 mg/dL [facility] Glucose,Whole Bloodon 2023 Glucose [Mass/Vol] 104 mg/dL Normal 65-105 [facility] Glucose [Mass/Vol] 86 mg/dL Normal 65-105 [facility] Glucose [Mass/Vol] 89 mg/dL Normal 65-105 [facility] Glucose [Mass/Vol] 91 mg/dL Normal 65-105 [facility] Hemoglobin A1Con 11-10-2023 Average glucose Estimated from glycated hemoglobin (Bld) [Mass/Vol] 82 mg/dL [facility] Comment on above: The ADA and AACC rec ommend providing the estimated average glucose result to permit better patient understanding of their HBA1c result. HbA1c (Bld) [Mass fraction] 4.5 % 4.0 - 6.0 % [facility] Glucose [Mass/Vol] 82 mg/dL Normal [facility] Comment on above: Result Comment: The ADA and AACC recommend providing the estimated average glucose result to permit better patient understanding of their HBA1c result. Performed By: #### C DP, GLYHGB #### [facility] [address] [place] [address] [employer] Member: Guillaume Roman MD HbA1c (Bld) [Mass fraction] 4.5 % Normal 4.0-6.0 [facility] Comment on above: Performed By: #### C DP, GLYHGB #### [facility] [address] [place], [place] [phone] [employer] Member: Guillaume Roman MD Lipid Panelon 11-10-2023 Cholesterol [Mass/Vol] 79 mg/dL 0 - 199 mg/dL [facility] [employer] Comment on above: Cholesterol Guidelines: <200 Desirable 200-240 Borderline >240 Undesirable Cholesterol in HDL [Mass/Vol] 55 mg/dL 40 - PINF mg/dL [facility] [employer] Comment on above: HDL Guidelines: <40 Undesirable 40-59 Borderline >59 Desirable Cholesterol in LDL [Mass/Vol] 11 mg/dL 0 - 100 mg/dL [facility] [employer] Comment on above: LDL Guidelines: <100 Desirable 100-129 Near to/above Desirable 130-159 Borderline >159 Undesirable Direct (measured) LDL and calculated LDL are not interchangeable tests. Cholesterol in VLDL [Mass/Vol] 13 mg/dL [facility] [employer] Cholesterol.total/Cho lesterol in HDL [Mass ratio] 1.0 {ratio} [facility] [employer] Triglyceride [Mass/Vol] 66 mg/dL NINF - 150 mg/dL [facility] [employer] Comment on above: Triglyceride Guidelines: <150 Desirable 150-199 Borderline 200-499 High >499 Very high Based on AHA Guidelines for fasting triglyceride, April 2012. Lipid Profileon 11-10-2023 Cholesterol [Mass/Vol] 79 mg/dL Normal 0-199 [facility] Comment on above: Result Comment: Cholesterol Guidelines: <200 Desirable 200-240 Borderline >240 Undesirable Performed By: #### R EJEC, CMPX, LIPR ####[facility] [address] [place] [address] Lab Director: Guillaume Roman MD Cholesterol in HDL [Mass/Vol] 55 mg/dL Normal >40 [facility] Comment on above: Result Comment: HDL Guidelines: <40 Undesirable 40-59 Borderline >59 Desirable Performed By: #### R EJEC, CMPX, LIPR ####[facility] [address] [place], [place] [id number] Lab Director: Guillaume Roman MD Cholesterol in LDL [Mass/Vol] 11 mg/dL Normal 0-100 [facility] Comment on above: Result Comment: LDL Guidelines: <100 Desirable 100-129 Near to/above Desirable 130-159 Borderline >159 Undesirable Direct (measured) LDL and calculated LDL are not interchangeable tests. Performed By: #### R EJEC, CMPX, LIPR ####[facility] [address] [place] [address] Lab Director: Guillaume Roman MD Cholesterol in VLDL [Mass/Vol] 13 mg/dL Normal [facility] Comment on above: Performed By: #### R EJEC, CMPX, LIPR ####[facility] [address] [place], [place] [phone] Director: Guillaume Roman MD Cholesterol.total/Cho lesterol in HDL [Mass ratio] 1.0 {ratio} Normal [facility] Comment on above: Performed By: #### R EJEC, CMPX, LIPR ####[facility] [address] [place] [address] Lab Director: Guillaume Roman MD Triglyceride [Mass/Vol] 66 mg/dL Normal <150 [facility] Comment on above: Result Comment: Triglyceride Guidelines: <150 Desirable 150-199 Borderline 200-499 High >499 Very high Based on AHA Guidelines for fasting triglyceride, April 2012. Performed By: #### R EJEC, CMPX, LIPR ####[facility] [address] [place], [place] [phone] Director: Guillaume Roman MD MR Pelvis WO [...] left greater than right, is likely metastatic. [facility] EXAMINATION: MRI OF THE PELVIS [...] osseous structures are unremarkable. Minimal free fluid. [facility] Frank Deleon MD - 11/10/2023 [...] right, is likely metastatic. [facility] Radiology Study observation (narrative) [facility] MR Pelvis WO and W contrast IVOrdered By: Frank Deleon on 11-10-2023 [facility] Work Phone: MRI PELVIS W WO CONTRASTon [...] Frank Deleon MD 11/10/23 Final result Normal [facility] No Panel Informationon 11-09 [facility] [employer] POC Glucose Fingerstickon Glucose [Mass/Vol] 104 mg/dL 65 - 105 mg/dL [facility] [employer] [facility] Glucose [Mass/Vol] 86 mg/dL 65 - 105 mg/dL [facility] Glucose [Mass/Vol] 89 mg/dL 65 - 105 mg/dL [facility] Glucose [Mass/Vol] 91 mg/dL 65 - 105 mg/dL [facility] [employer] [facility] [employer] PREVIOUS SPECIMENon 11-10-19 24 [facility] [employer] Specimen Rejectionon 024 Reason for rejection Unable to perform testing: Specimen clotted. Normal [facility] Comment on above: Performed By: #### R EJEC, CMPX, LIPR ####[facility] [address] [place] [address] Lab Director: Guillaume Roman MD Source of sample .BLOOD Normal [facility] Comment on above: Performed By: #### R EJEC, CMPX, LIPR ####[facility] [address] [place], [place] 4115[address] Lab Director: Guillaume Roman MD Test ordered CDP, GLYHGB [facility] Comment on above: Performed By: #### R EJEC, CMPX, LIPR ####[facility] [address] [place], [place] [address] lab Director: Guillaume Roman MD TYPE AND SCREENon 11-10-2023 ABO and Rh group Nom (Bld) Blood group O Rh(D) positive [facility] Arm Band Number BE [id number] [facility] Blood Bank Sample Expiration 11/13/2023,2359 [facility] Blood group antibodies identified Nom Negative [facility] Type + Screenon 11-10-2023 Type + Screen Sample Expiration 11/13/2023,2359 Arm Band Number BE [id number] ABO/Rh(D) O POSITIVE Antibody Screen NEGATIVE Normal [facility] Comment on above: Performed By: #### T YS #### [facility] [address] [place] [address] [employer] Member: MD Rene Barros 11-09-2023 L Specimen: [id number] Received: 11/10/23 Status: TESS [place] Num: [id number] Spec Type: Surgical Subm Dr: Kobe Crespo Tissues: A Endometrium - Curettings (EMC) Procedures: HE/6, Gross/Micro L4 Age/ Patient Sex Location Account Attending Physician Candis Johnson 68/F LABELL [id number] Kobe Crespo SPEC NUM: [id number] RECD: 11/10/23 STATUS: TESS [place] NUM: [id number] NOY: 11/09/[address]: Kobe Crespo ENTERED: 11/10/23 [facility] DR: Angel Reynolds SPEC TYPE: Surgical DEPT: [...] uterus didelphys, vaginal stenosis, cervical stenosis Specimen: [id number] Received: 11/10/23 Status: TESS Berry Num: [id number] Spec Type: Surgical Subm Dr: Kobe Crespo Tissues: A Endometrium - Curettings (EMC) Procedures: GABRIEL/Noreen, Gross/Micro L4 Patient: Candis Johnson [id number] (Continued) Specimen: [id number] Received: 11/10/23 (Continued) Signed (signature on file) Jamarcus Chao MD 11/11/23 1448 Specimen: [id number] Received: 11/10/23 Status: TESS [place] Num: [id number] Spec Type: Surgical Subm Dr: Kobe Crespo Tissues: A Endometrium - Curettings (EMC) Procedures: , Gross/Micro L4 Patient: ChristianpanchoFatimah franklinsusan Cuellar [id number] (Continued) Specimen: [id number] Received: 11/10/23 (Continued) CPT Codes 13640 Specimen: [id number] Received: 11/10/23 Status: TESS [place] Num: [id number] Spec Type: Surgical Subm Dr: Kobe Crespo Tissues: A Endometrium - Curettings (EMC) Procedures: GABRIEL/Noreen, Ginna/Ashley L4 Patient: Candis Johnson [id number] (Continued) Signed (signature on file) Jamarcus Chao MD 11/11/23 1448 Normal [facility] Lab Reportson 11-08-2023 Lab Reports [id number] IFF Normal [facility] Lab Reportson 11-07-2023 Lab Reports [id number]#1.00T IFF Normal [facility] Consent for Procedure/Surger yon 10-14-2023 Consent for Procedure/Surgery [id number] IFF Normal [facility] Office Visiton 10-06-2023 Follow-up visit [id number] Kelby Johnson 1955 F Date Provider Department Center 10/06/2023 REBECCA VASQUEZ Family History Problem Relation Age of Onset Coronary artery disease Mother Cancer Father Diabetes Father Family Status - Relation Status Age at Mother Father Level of Service:96635 DC OFFICE/OUTPATIENT ESTABLISHED MOD MDM 30 MIN Normal [facility] Office Visiton 09-23-2023 Follow-up visit [id number] Ayala 1955 F Date Provider Department Center 09/23/2023 [id number] CHI Family History Problem Relation Age of Onset Coronary artery disease Mother Cancer Father Diabetes Father Family Status - Relation Status Age at Mother Father Level of Service:01369 DC OFFICE/OUTPATIENT ESTABLISHED LOW MDM 20 MIN Reason for Visit and Comments: Follow-up [837237] - Concerns: Not much states some swelling in legs and some back back, chest pain seems to be getting better Normal [facility] Office Visiton 08-26-2023 Follow-up visit [id number] Kelby Johnson 1955 F Date Provider Department Center 08/26/2023 384GUERDA ROLAND Family History Problem Relation Age of Onset Coronary artery disease Mother Cancer Father Diabetes Father Family Status - Relation Status Age at Mother Father Level of Service:23119 DC OFFICE/OUTPATIENT NEW MODERATE MDM 45 MINUTES Normal [facility] Consent for Procedure/Surger yon 08-24-2023 Consent for Procedure/Surgery [id number] IFF Normal [facility] Consent for Procedure/Surger yon 08-09-2023 Consent for Procedure/Surgery [id number]#1.00T IFF Normal [facility] Urine Cytology ([facility])on 0 08-09-2023 Urine Cytology Diagnosis Info Invalid Interpretation Code [facility] Comment on above: Result Comment: A:Ur ine,Urine:Voided Interpretation - MicroScopic Description - Adequacy - Gross Description Site ID:A color Dark Yellow fixative Alcohol Specimen designated Urine received in alcohol preservative and labeled with the patient?s name, consists of 110ml slightly cloudy dark yellow fluid. Electronically signed by : on: 08/09/2023 11:46:02 Performed By: #### 1 [id number] ####[facility] [address] [place] [address] Physician Referralon 024 Physician Referral [id number]#1.00 TIFF Normal [facility] Screenson 08-04-2023 Screens [id number]#[id number] FF Normal [facility] Urine Cytology ([facility])on 0 08-04-2023 UC Method of Extraction Voided Normal [facility] Comment on above: Performed By: #### 1 [id number] ####[facility] [address] [place] [address] UC Number of Jars 1 Invalid Interpretation Code [facility] Comment on above: Performed By: #### 1 [id number] ####[facility] [address] [place] [address] UC Specimen Urine Normal [facility] Comment on above: Performed By: #### 1 [id number] ####[facility] [address] [place] [address] Type of Service Technical Only Normal [facility] Comment on above: Performed By: #### 1 [id number] ####[facility] [address] [place] [address] Ambulatory Visit Summaryon 0 08-03-2023 Ambulatory Visit [...] the caus (more content not included)... Normal [facility] Home Recordson 08-03 Residential Records [id number]#1.00T IFF Normal [facility] Patient Educationon 08-03-19 Patient Education Urology Ureteroscopy [...] including vitamins, herbs, eye drops, creams, and ctwx-uxr-wplqckz medicines. ? Any problems you or family [...] care provider tells you to. ? Taking hnnr-esf-mhzlzih medicines, vitamins, herbs, and supplements. General instructions [...] monitor (more content not included)... 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 *possible abnormality of urinary system. Ordered due to rectal bleeding. Pt is a new pt. Never before seen in our office. Pt is hard of hearing she can read lips and she has an nurses aid from her home ([facility]) CT abdomen pelvis wo/w con done @ [facility] on 06/06/23 She tried giving a [...] age Assessment/Plan 68 yo female resident of [facility] here for new patient evaluation of right [...] cysto, if patient unable to submit from HALFWAY prior 3. Former smoker (Z87.891: Personal history of nicotine dependence) Smoked for a very little amount of time. 4. 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 Normal [facility] Comment on above: Result Comment: Elec tronically [...] by: RIVKA FRAZIER Date: 2022-07-05 15:47 Normal [facility] MG MAMM SCREEN 3D DERRICK CADon 05-14-2022 MG MAMM SCREEN 3D DERRICK CAD Patient: CANDIS JOHNSON Exam Date: 05/14/2022 : 1955 Gender:F Ordering : DR ANDER LANGLEY D.O. Admission #: [id number] Family : Order #: [id number] CLICK HERE TO VIEW EXAM RADIOLOGY REPORT [...] Treatments None Family Cancers None LOCATION: [facility] BREAST COMPOSITION: Almost entirely fatty. [...] MD on 05/14/2022 at 12:49 Normal [facility] BNPon 03-07-2022 Natriuretic peptide B (Bld) [Mass/Vol] 115.0 pg/mL Normal <=900.0 [facility] Comment on above: Performed By: #### B BUSINESS INTELLIGENCE DIRECTOR, CMP, HSTROPN #### [facility] [address] [place] [address] Dr. Carl Zuñiga CBC AUTO DIFFon 03-07-2022 BASO # 0.0 103/ul Normal 0.0-0.1 [facility] Comment on above: Performed By: #### B BUSINESS INTELLIGENCE DIRECTOR, CMP, HSTROPN #### [facility] [address] [place] [address] Dr. Carl Zuñiga Basophils/100 WBC (Bld) 0.0 % Critically low 0.2-2.0 [facility] Comment on above: Performed By: #### B BUSINESS INTELLIGENCE DIRECTOR, CMP, HSTROPN #### [facility] [address] [place] [address] Dr. Carl Zuñiga EO # 0.1 103/ul Normal 0.0-0.7 [facility] Comment on above: Performed By: #### B BUSINESS INTELLIGENCE DIRECTOR, CMP, HSTROPN #### [facility] [address] [place] [address] Dr. Carl Zuñiga Eosinophils/100 WBC (Bld) 1.0 % Normal 0.9-7.0 [facility] Comment on above: Performed By: #### B BUSINESS INTELLIGENCE DIRECTOR, CMP, HSTROPN #### [facility] [address] [place] [address] Dr. Carl Zuñiga Erythrocyte distribution width (RBC) [Ratio] 13.7 % Normal 11.0-15.0 [facility] Comment on above: Performed By: #### B BUSINESS INTELLIGENCE DIRECTOR, CMP, HSTROPN #### [facility] [address] [place] [address] Dr. Carl Zuñiga Hematocrit (Bld) [Volume fraction] 40.8 % Normal 36.0-48.0 [facility] Comment on above: Performed By: #### B BUSINESS INTELLIGENCE DIRECTOR, CMP, HSTROPN #### [facility] [address] [place] [address] Dr. Carl Zuñiga Hemoglobin (Bld) [Mass/Vol] 13.1 g/dL Normal 12.0-16.0 [facility] Comment on above: Performed By: #### B BUSINESS INTELLIGENCE DIRECTOR, CMP, HSTROPN #### [facility] [address] [place] [address] Dr. Carl Zuñiga IG # 0.02 10e3/ul Normal 0.00-0.03 [facility] Comment on above: Performed By: #### B BUSINESS INTELLIGENCE DIRECTOR, CMP, HSTROPN #### [facility] [address] [place] [address] Dr. Carl Zuñiga IG % 0.3 % Normal 0.0-0.5 [facility] Comment on above: Performed By: #### B BUSINESS INTELLIGENCE DIRECTOR, CMP, HSTROPN #### [facility] [address] [place] [address] Dr. Carl Zuñiga LYMPH # 0.9 103/ul Critically low 1.2-3.8 [facility] Comment on above: Performed By: #### B BUSINESS INTELLIGENCE DIRECTOR, CMP, HSTROPN #### [facility] [address] [place] [address] Dr. Carl Zuñiga Lymphocytes/100 WBC (Bld) 13.9 % Critically low 20.5-60.0 [facility] Comment on above: Performed By: #### B BUSINESS INTELLIGENCE DIRECTOR, CMP, HSTROPN #### [facility] [address] [place] [address] Dr. Carl Zuñiga MANUAL DIFF REQ NO Normal [facility] Comment on above: Performed By: #### B BUSINESS INTELLIGENCE DIRECTOR, CMP, HSTROPN #### [facility] [address] [place] [address] Dr. Carl Zuñiga MCH (RBC) [Entitic mass] 30.8 pg Normal 26.7-34.0 [facility] Comment on above: Performed By: #### B BUSINESS INTELLIGENCE DIRECTOR, CMP, HSTROPN #### [facility] [address] [place] [address] Dr. Carl Zuñiga MCHC (RBC) [Mass/Vol] 32.1 g/dL Normal 29.9-35.2 [facility] Comment on above: Performed By: #### B BUSINESS INTELLIGENCE DIRECTOR, CMP, HSTROPN #### [facility] [address] [place] [address] Dr. Carl Zuñiga MCV (RBC) [Entitic vol] 96.0 fL Normal 81.0-99.0 [facility] Comment on above: Performed By: #### B BUSINESS INTELLIGENCE DIRECTOR, CMP, HSTROPN #### [facility] [address] [place] [address] Dr. Carl Zuñiga MONO # 0.6 103/ul Normal 0.3-0.8 [facility] Comment on above: Performed By: #### B BUSINESS INTELLIGENCE DIRECTOR, CMP, HSTROPN #### [facility] [address] [place] [address] Dr. Carl Zuñiga Monocytes/100 WBC (Bld) 9.2 % Normal 1.7-12.0 [facility] Comment on above: Performed By: #### B BUSINESS INTELLIGENCE DIRECTOR, CMP, HSTROPN #### [facility] [address] [place] [address] Dr. Carl Zuñiga NEUT # 5.1 103/ul Normal 1.4-6.5 [facility] Comment on above: Performed By: #### B BUSINESS INTELLIGENCE DIRECTOR, CMP, HSTROPN #### [facility] [address] [place] [address] Dr. Carl Zuñiga Neutrophils/100 WBC (Bld) 75.6 % Critically high 43.0-75.0 [facility] Comment on above: Performed By: #### B BUSINESS INTELLIGENCE DIRECTOR, CMP, HSTROPN #### [facility] [address] [place] [address] Dr. Carl Zuñiga Platelet mean volume (Bld) [Entitic vol] 8.5 fL Critically low 9.5-13.5 [facility] Comment on above: Performed By: #### B BUSINESS INTELLIGENCE DIRECTOR, CMP, HSTROPN #### [facility] [address] [place] [address] Dr. Carl Zuñiga PLT 206 103/ul Normal 150-450 [facility] Comment on above: Performed By: #### B BUSINESS INTELLIGENCE DIRECTOR, CMP, HSTROPN #### [facility] [address] [place] [address] Dr. Carl Zuñiga RBC 4.25 106/ul Normal 4.20-5.40 [facility] Comment on above: Performed By: #### B BUSINESS INTELLIGENCE DIRECTOR, CMP, HSTROPN #### [facility] [address] [place] [address] Dr. Carl Zuñiga WBC 6.7 103/ul Normal 4.0-11.0 [facility] Comment on above: Performed By: #### B BUSINESS INTELLIGENCE DIRECTOR, CMP, HSTROPN #### [facility] [address] [place] [address] Dr. Carl Zuñiga D-DIMERon 03-07-2022 D-DIMER <0.19 Normal <=0.59 [facility] Comment on above: Performed By: #### D DIM #### [facility] [address] [place] [address] Dr. Carl Zuñiga D-DIMER COMMENTS SEE BELOW Normal [facility] Comment on above: Result Comment: Incr [...] hospitalization. Performed By: #### D DIM #### [facility] [address] [place] [address] Dr. Carl Zuñiga PROF 14(COMP METB)on 022 Albumin [Mass/Vol] 3.9 g/dL Normal 3.4-5.0 [facility] Comment on above: Performed By: #### B BUSINESS INTELLIGENCE DIRECTOR, CMP, HSTROPN #### [facility] [address] [place] [address] Dr. Carl Zuñiga Albumin/Globulin [Mass ratio] 1.5 {ratio} Normal [facility] Comment on above: Performed By: #### B BUSINESS INTELLIGENCE DIRECTOR, CMP, HSTROPN #### [facility] [address] [place] [address] Dr. Carl Zuñiga ALP [Catalytic activity/Vol] 96 U/L Normal 46-116 [facility] Comment on above: Performed By: #### B BUSINESS INTELLIGENCE DIRECTOR, CMP, HSTROPN #### [facility] [address] [place] [address] Dr. Carl Zuñiga ALT [Catalytic activity/Vol] 38 U/L Normal 14-59 [facility] Comment on above: Performed By: #### B BUSINESS INTELLIGENCE DIRECTOR, CMP, HSTROPN #### [facility] [address] [place] [address] Dr. Carl Zuñiga Anion gap [Moles/Vol] 9.8 mmol/L Normal [facility] Comment on above: Performed By: #### B BUSINESS INTELLIGENCE DIRECTOR, CMP, HSTROPN #### [facility] [address] [address] [address] Carl Zuñiga AST [Catalytic activity/Vol] 16 U/L Normal 15-37 [facility] Comment on above: Performed By: #### B BUSINESS INTELLIGENCE DIRECTOR, CMP, HSTROPN #### [facility] [address] [address] [address] Carl Zuñiga Bilirubin [Mass/Vol] 0.5 mg/dL Normal 0.2-1.0 [facility] Comment on above: Performed By: #### B BUSINESS INTELLIGENCE DIRECTOR, CMP, HSTROPN #### [facility] [address] [place] [address] Dr. Carl Zuñiga Calcium [Mass/Vol] 9.2 mg/dL Normal 8.5-10.1 [facility] Comment on above: Performed By: #### B BUSINESS INTELLIGENCE DIRECTOR, CMP, HSTROPN #### [facility] [address] [place] [address] Dr. Carl Zuñiga Chloride [Moles/Vol] 103 mmol/L Normal 98-107 [facility] Comment on above: Performed By: #### B BUSINESS INTELLIGENCE DIRECTOR, CMP, HSTROPN #### [facility] [address] [place] [address] Dr. Carl Zuñiga CO2 [Moles/Vol] 29.1 mmol/L Normal 21.0-32.0 [facility] Comment on above: Performed By: #### B BUSINESS INTELLIGENCE DIRECTOR, CMP, HSTROPN #### [facility] [address] [place] [address] Dr. Carl Zuñiga Creatinine [Mass/Vol] 0.92 mg/dL Normal 0.55-1.02 [facility] Comment on above: Performed By: #### B BUSINESS INTELLIGENCE DIRECTOR, CMP, HSTROPN #### [facility] [address] [place] [address] Dr. Carl Zuñiga EGFR-AF GEORGIAN >60 Normal >=60 [facility] Comment on above: Performed By: #### B BUSINESS INTELLIGENCE DIRECTOR, CMP, HSTROPN #### [facility] [address] [place] [address] Dr. Carl Zuñiga EGFR-NON AF GEORGIAN >60 Normal >=60 [facility] Comment on above: Performed By: #### B BUSINESS INTELLIGENCE DIRECTOR, CMP, HSTROPN #### [facility] [address] [address] [address] Carl Zuñiga Globulin (S) [Mass/Vol] 2.6 g/dL Normal [facility] Comment on above: Performed By: #### B BUSINESS INTELLIGENCE DIRECTOR, CMP, HSTROPN #### [facility] [address] [address] [address] Carl Zuñiga Glucose [Mass/Vol] 109 mg/dL Critically high 74-106 T [facility] Comment on above: Performed By: #### B BUSINESS INTELLIGENCE DIRECTOR, CMP, HSTROPN #### [facility] [address] [place] [address] Dr. Carl Zuñiga Potassium [Moles/Vol] 3.9 mmol/L Normal 3.5-5.1 [facility] Comment on above: Performed By: #### B BUSINESS INTELLIGENCE DIRECTOR, CMP, HSTROPN #### [facility] [address] [place] [address] Dr. Carl Zuñiga Protein [Mass/Vol] 6.5 g/dL Normal 6.4-8.2 [facility] Comment on above: Performed By: #### B BUSINESS INTELLIGENCE DIRECTOR, CMP, HSTROPN #### [facility] [address] [place] [address] Dr. Carl Zuñiga Sodium [Moles/Vol] 138 mmol/L Normal 136-145 [facility] Comment on above: Performed By: #### B BUSINESS INTELLIGENCE DIRECTOR, CMP, HSTROPN #### [facility] [address] [place] [address] Dr. Carl Zuñiga Urea nitrogen [Mass/Vol] 14.0 mg/dL Normal 7.0-18.0 [facility] Comment on above: Performed By: #### B BUSINESS INTELLIGENCE DIRECTOR, CMP, HSTROPN #### [facility] [address] [place] [address] Dr. Carl Zuñiga Urea nitrogen/Creatinine [Mass ratio] 15.2 mg/mg Normal [facility] Comment on above: Performed By: #### B BUSINESS INTELLIGENCE DIRECTOR, CMP, HSTROPN #### [facility] [address] [place], [place] [address] Dr. Carl Zuñiga TROPONIN, HIGH SENSITIVITYon 03-07-2022 HSTROP 2.8 pg/mL Critically low 4.0-51.3 [facility] Comment on above: Result Comment: CUT- OFF POINTS HAVE BEEN ESTABLISHED BASED ON THE FOURTH UNIVERSAL DEFINITIONS OF MYOCARDIAL INFARCTION. THE UPPER REFERENCE LIMIT (URL) OF TROPONIN, DEFINED THE 99TH PERCENTILE OF cTnI DISTRIBUTION IN A REFERENCE POPULATION, HAS BEEN CONFIRMED THE DECISION THRESHOLD FOR [place] DIAGNOSIS. Performed By: #### B BUSINESS INTELLIGENCE DIRECTOR, CMP, HSTROPN #### [facility] [address] [place], [place] [address] Dr. Carl Zuñiga XR CHEST 1 Von [...] DIANA BREAUX Date: 2022-03-07 10:05 Normal [facility] CT CSPINE WO CONon CT CSPINE [...] MARQUES PATEL Date: 2021-07-10 02:49 Normal [facility] CT HEAD WO CONon 07-10-2021 CT [...] PATEL Date: 2021-07-10 02:44 Normal [facility] XR CHEST 1 Von 07-10-2021 [...] PATEL Date: 2021-07-10 02:46 Normal [facility] XR PELVIS 1_2 VIEWSon 2020 [...] PATEL Date: 2021-07-10 02:47 Normal [facility] Vital Signs Date Time Vital Sign Value Performing Clinician Carrol perez 12-07-2023 09:56-0400 Body weight 83.6 kg Laisha Coburn MD Work Phone: [facility] 12-07-2023 09:56-0400 Diastolic blood pressure 51 mm[Hg] Laisha Coburn MD Work Phone: [facility] 12-07-2023 09:56-0400 Heart rate 78 /min Laisha Coburn MD Work Phone: [facility] 12-07-2023 09:56-0400 Respiratory rate 17 /min Laisha Coburn MD Work Phone: [facility] 12-07-2023 09:56-0400 SaO2% (BldA) [Mass fraction] 99 % Laisha Coburn MD Work Phone: [facility] 12-07-2023 09:56-0400 Systolic blood pressure 98 mm[Hg] Laisha Coburn MD Work Phone: [facility] 11-28-2023 09:04-0400 Body temperature 97.7 [degF] El Ahmadi MD Work Phone: [facility] 11-28-2023 09:04-0400 Body weight 84.37 kg El Ahmadi MD Work Phone: [facility] 11-28-2023 09:04-0400 Diastolic blood pressure 78 mm[Hg] El Ahmadi MD Work Phone: [facility] 11-28-2023 09:04-0400 Heart rate 89 /min El Ahmadi MD Work Phone: [facility] 11-28-2023 09:04-0400 Respiratory rate 16 /min El Ahmadi MD Work Phone: [facility] 11-28-2023 09:04-0400 SaO2% (BldA) [Mass fraction] 99 % El Ahmadi MD Work Phone: [facility] 11-28-2023 09:04-0400 Systolic blood pressure 117 mm[Hg] El Ahmadi MD Work Phone: [facility] 11-12-2023 11:15-0400 Body temperature 97.9 [degF] Jayashree Avilez MD Work Phone: [facility] 11-12-2023 11:15-0400 Diastolic blood pressure 58 mm[Hg] Jayashree Avilez MD Work Phone: [facility] 11-12-2023 11:15-0400 Heart rate 74 /min Jayashree Avilez MD Work Phone: [facility] 11-12-2023 11:15-0400 Respiratory rate 18 /min Jayashree Avilez MD Work Phone: [facility] 11-12-2023 11:15-0400 SaO2% (BldA) [Mass fraction] 96 % Jayashree Avilez MD Work Phone: [facility] 11-12-2023 11:15-0400 Systolic blood pressure 116 mm[Hg] Jayashree Avilez MD Work Phone: [facility] 11-10-2023 03:41-0400 Body height 162.6 cm Jayashree Avilez MD Work Phone: [facility] 11-10-2023 03:41-0400 Body mass index (BMI) [Ratio] 33.34 kg/m2 Jayashree Avilez MD Work Phone: [facility] 11-10-2023 03:41-0400 Body weight 88.1 kg Jayashree Avilez MD Work Phone: [facility] 08-03-2023 08:23-0500 Blood Pressure Location Pamela Benson [facility] Encounters Encounter Date Encounter Type Care Provider Facility Start: 01-05-2024 End: 01-05-2024 ambulatory Edmond KUHN Facility:CD:[id number] Start: 12-16-2023 End: 12-16[facility]2023 [facility] Start: 12-08-2023 End: 12-08-2023 Social Work Lisa ZHANG Hematology/Oncology Comment on above: Patient Update Start: 12-07-2023 End: 12-07-2023 ambulatory LAISHA COBURN Facility:[facility] Start: 12-07-2023 End: 12-07-2023 Patient encounter procedure Laisha Coburn MD Work Phone: Radiation Oncology Comment on above: 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 Comment on above: Bleeding from the ge [facility] system Start: 11-09-2023 End: 11-09-2023 ambulatory Kobe Cherie Facility:[facility] Start: 11-02-2023 End: 11-02-2023 ambulatory KOBE CHERIE Not Available Start: 10-06-2023 End: 10-06-2023 ambulatory REBECCA [facility] Start: 09-23-2023 End: 09-23-[address] [facility] Start: 08-26-2023 End: 08-26-[address] [facility] Start: 08-24-2023 End: 08-24-2023 ambulatory Pamela M. Lue Facility:[facility] [place] Start: 08-24-2023 End: 08-24-2023 Off-Site Pamela M. Lue [facility] Start: 08-04-2023 End: 08-04-2023 ambulatory Pamela M. Lue Facility:[facility] Start: 08-04-2023 End: 08-04-2023 Lab Drop off Pamela M. Lue [facility] Start: 08-03-2023 End: 08-03-2023 ambulatory Pamela M. Lue Facility:[facility] Start: 08-03-2023 End: 08-03-2023 Patient encounter procedure [facility] M. Lue [facility] [facility] Start: 07-27-2023 End: 07-27-2023 ambulatory [...] - S adam or Plasma Bernadette Metzger APRN.AERODYNAMICS ENGINEER Work Phone: [phone] Pamela Benson Plan of Treatment Date Care Activity Detail Author Start: 11-09-2028 Lipid panel [facility] Start: 11-10-2026 Diabetes Screening Diabetes Screenin g [facility] Start: 11-10-2024 GFR test (Diabetes, CKD 3-4, OR last GFR 15-59) GFR test (Diabetes, CKD 3-4, OR last GFR 15-59) [facility] Start: 03-11-2024 Influenza vaccination Influenz a Vaccine (Season Ended) [facility] Start: 02-09-2024 Influenza vaccination Flu vacc ine (Season Ended) [facility] Start: 01-16-2024 End: 12-27-2024 MR Pelvis WO and W contrast IV MRI FEMALE PELVIS WO/W IVCON Radiology Routine 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) Expected: 01/16/2024, Expires: 12/27/2024 [facility] Work Phone: Comment on above: Expected: 01/16/2024 , Expires: 12/27/2024 Start: 12-28-2023 End: 12-28-2023 ambulatory 12/28/2023 10:00 AM EDT Visit (SP) Office Gynecology Oncology [address] [place] [address] [place] [address] Mariam Mckinley MD [address] [place] [address] Vaginal Mass Gynecology Oncology Comment on above: [...] 1:00 PM EDT Office Visit Radiation Oncology [address] [place] [address] [place] [address] [place] [address] New Consult Radiation Oncology Comment on above: New Consult Start: 12-02-2023 End: 12-02-2023 Patient encounter procedure 12/02/2023 1:30 PM EDT Appointment Radiology Pet CT [address] [place] [address] Comment on above: pet scan Start: 11-28-2023 End: 11-28-2023 Patient encounter procedure 11/28/2023 9:00 AM EDT Office Visit Radiation Oncology [address] [place] [address] El Ahmadi MD [address] [place] [address] Dr Jareth Natarajan cevical cancer Radiation Oncology Comment on above: Dr Jareth Natarajan cevical cancer Start: 11-11-2023 Annual Wellness Visi t (Medicare) Annual Wellness Visit (Medicare) [facility] Start: 07-11-2023 Advance Directive Discussion Advance Directive Discussion [facility] Start: 07-11-2023 Behavioral Health Screening Behavioral Health Screening [facility] Start: 03-11-2023 Covid-19 Vaccine ( season) Covid-19 Vaccine ( season) [facility] Start: 03-11-2023 Covid-19 Vaccine ( season) Covid-19 Vaccine ( season) [facility] Start: 03-11-2023 COVID-19 Vaccine ( season) COVID-19 Vaccine ( season) [facility] Start: 2020 Pneumococcal 65+ yea rs Vaccine (1 of 1 - PCV) Pneumococcal 65+ years Vaccine (1 of 1 - PCV) [facility] Start: 2020 Pneumococcal Vaccine : 65+ (1 of 1 - PCV) Pneumococcal Vaccine: 65+ (1 of 1 - PCV) [facility] Start: 2020 Screening for osteoporosis Bone Density Screening [facility] Start: 2015 Respiratory Syncytia l Virus (RSV) or age 60 yrs+ (1 - 1-dose 60+ series) Respiratory Syncytial Virus (RSV) or age 60 yrs+ (1 - 1-dose 60+ series) [facility] Start: 2015 RSV Vaccine (1 - 1-dose 60+ series) RSV Vaccine (1 - 1-dose 60+ series) [facility] Start: 2010 Screening for osteoporosis DEXA (modify frequency per FRAX score) [facility] Start: 2005 Screening for malignant neoplasm of breast Breast cancer screen [facility] Start: 2005 Shingles vaccine (1 of 2) Shingles vaccine (1 of 2) [facility] Start: 2005 Shingrix Vaccine (1 of 2) Shingrix Vaccine (1 of 2) [facility] Start: 2000 Screening for malignant neoplasm of colon [facility] Start: 1995 Screening for malignant neoplasm of breast Mammogram Screening [facility] Start: 1974 DTaP/Tdap/Td vaccine (1 - Tdap) DTaP/Tdap/Td vaccine (1 - Tdap) [facility] Start: 1974 Urine microalbumin profile DTaP,Tdap,Td Vaccine (1 - Tdap) [facility] Start: 1973 Hepatitis C screening [facility] Start: 1967 Depression Screen Depression Screen [facility] [employer] Glucose [Mass/volume ] in Serum or Plasma [facility] [employer] Comment on above: 4X Daily (AC & HS) u ntil discontinued starting 11/10/2023 As Needed until disc ontinued starting 11/10/2023 OUTSIDE SURG PATH SLIDE REVIEW OUTSIDE SURG PATH SLIDE REVIEW Lab Routine High grade squamous intraepithelial lesion (HGSIL), grade 3 SUDHA, on biopsy of cervix Ordered: 11/23/2023 [facility] Work Phone: Comment on above: Ordered: 11/23/2023 Oxygen therapy [Minimum Data Set] Initiate Oxygen Therapy Protocol Respiratory Care Routine Daily until discontinued starting 11/10/2023 [facility] [employer] [employer] Comment on above: Daily until disconti nued starting 11/10/2023 End: 12-24-2024 PET+CT Guidance for localization of tumor of Skull base to mid-thigh-- W 18F-FDG IV NM PET/CT SKULL-THIGH INITIAL Radiology Routine 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) 1 Occurrences starting 11/25/2023 until 12/24/2024 [facility] Work Phone: Comment on above: 1 Occurrences starti ng 11/25/2023 until 12/24/2024 End: 11-10-2023 SPECIMEN RE[facility]CTION [facility] Work Phone: Comment on above: Once for 1 Occurrenc es starting 11/10/2023 until 11/10/2023 Surgical Pathology Surgical Path ology Lab Routine Bleeding from the genitourinary system Release Upon Ordering for 1 Occurrences starting 11/11/2023 [facility] [employer] Comment on above: Release Upon Orderin g for 1 Occurrences starting 11/11/2023 Immunizations Immunization Date Immunization Notes Care Provider Jairo burton 05-27-2022 SARS-CoV-2 (COVID-19 ) [id number] Pamela Benson [facility] 06-12-2021 SARS-CoV-2 (COVID-19 ) mRNA BNT-162b2 vax Pamela Lue [facility] 08-13-2020 SARS-CoV-2 (COVID-19 ) mRNA BNT-162b2 vax Pamela Lue [facility] Comment on above: Result Comment: 2023: [id number] 07-23-2020 SARS-CoV-2 (COVID-19 ) mRNA BNT-162b2 vax Pamela Lue [facility] Comment on above: Result Comment: 2023: [id number] Payers Date Payer Category Payer Self-pay 2023 Medicare [id number] 2020 Medicaid MEDICAID [facility] MEDICAID [id number] 2020-Present [phone] [address] [place] [address] Medicaid [id number] 2020 Medicaid [id number] 2020 Medicare MEDICARE MEDICAR E A AND B [id number] 2020-Present [phone] [address] [address] [place] [address] Medicare [id number] 2020 Medicare [id number] 1955 Unknown [id number] 1955 Unknown [id number] 1955 Unknown [id number] 1955 Unknown [id number] 1955 Unknown [id number] 1955 Unknown [id number] 1955 Unknown [id number] 1955 Unknown [id number] 1955 Unknown [id number] 1955 Unknown [id number] Unknown [id number] Social History Date Type Detail Facility Start: 08-03-2023 Tobacco smoking status Never s moked tobacco (finding) [facility] Start: 11-28-2023 End: 12-07-2023 Sex Assigned At Female [facility] Tobacco smoking stat [facility] Tobacco smoking consumption unknown [facility] Start: 1955 Sex Assigned At Not on file [facility] Start: 11-28-2023 [facility] History of tobacco use Current smoker [facility] History of tobacco use Cigarette Smoker C [facility] Start: 11-28-2023 End: 12-07-2023 Cigarettes smoked current (pack per day) - Reported 0.5 [facility] Start: 11-28-2023 Tobacco use and exposure Smokeless tobacco non-user [facility] Start: 11-28-2023 End: 12-07-2023 Alcohol intake Current drinker of alcohol (finding) [facility] National Score (1-10 0), lower number is lower risk 63 [facility] Functional Status Date Assessment Result Facility 08-03-2023 Functional Status N/A [facility] Clinical Notes 08-03-2023 to 12-16-2023 UriahAlliei, PROGRAMMING DEVELOPMENT PROJECT MANAGER - 12/08/2023 2:57 PM EDTTelephone Encounter - Skylar Harris - 12/08/2023 1:09 PM EDTTelephone Encounter - Skylar Harris - 12/08/2023 1:09 PM EDT Note Date & Type Note Facility 12-16-2023 Note Cardiology Clinic No te HPI: Candis Johnson is a 68 y.o. female With no reported cardiac history who presents to cardiology clinic at the request of her [employer]OT [employer]KER doctor for perioperative restratification prior to D&C and LEEP procedure. Of note: Patient is deaf. 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 She does her best to communicate by lipreading. She is accompanied by her spotter driver son, grandson, who assists in communication. Patient here for follow up [facility] ED visit on 12/10/2023 for syncope. [...] a past medical history of Diabetes mellitus ([facility]). Surgical History She has no [...] respect their wis (more content not included)... [facility] 12-08-2023 Note HNO ID: [id number] Author: LISA KRUSE LSW Service: ? Author Type: Deck Hand Type: Progress Notes Filed: 12/08/2023 15:01 Note Text: Patient appears on the [facility] First Time Radiation Treatment Report. MARCELO completed a chart review and there was a note from today...Please cancel Candis's SIM scheduled 12/09/[address] Ahmadi. Patient's PET scan shows metastatic disease and patient will proceed with chemotherapy per Dr. Templeton. SW will remain available and will follow up as appropriate. BRENT Siddiqi [facility] 12-08-2023 History of Presen t illness Narrative Patient appears on the [facility] First Time Radiation Treatment Report. MARCELO completed a chart review and there was a note from today...Please cancel Candis's SIM scheduled 12/09/[address] Ahmadi. Patient's PET scan shows metastatic disease and patient will proceed with chemotherapy per Dr. Templeton. MARCELO will remain available and will follow up as appropriate. BRENT Siddiqi documented in this encounter [facility] 12-08-2023 Telephone encounter Note Report faxed to Dr. Gleason and Dr. Avilez. Images pushed to [facility]. [facility] 12-08-2023 Miscellaneous Notes Report faxed to [...] Mecca Boyle RN documented in this encounter [facility] 12-08-2023 Telephone encounter Note MRI not needed per chat [facility] 12-08-2023 Miscellaneous Notes MRI not needed per chat Spoke with patients son, he would like scheudled at [facility] since its easiest for nusing home [...] Dr. Mckinley - she is established with cte teacher onc out of [place] already (Dr. Avilez). Will need repeat MRI pelvis week of January 15. Thanks! El Dr Ahmadi- order pending your approval. Nathalie Saleh RN Please place [facility] RAD onc consult I called and spoke to Angelina at [facility] and she said Candis does [...] language. She has been a resident at [facility] assisted living for 4-5 years and does very well there per Landen. I notified Landen that Dr. Ahmadi is ordering a PET scan, rad onc consult at [facility] and trying to move up Candis's consult with Dr. Mckinley goran. Landen states between himself and [facility] transportation should not be an issue. Yumiko: 1. Please schedule PET scan goran. 2. Rad Onc consult at [facility] 3. Move up Dr. Mckinley's consult goran. Dr. Mckinley are you or your staff able to assist in rescheduling Ms. Johnson's consult with you goran per Dr. Ahmaid? She is currently scheduled for consult on 12/28/23. Thanks Mecca Boyle RN documented in this encounter [facility] 12-08-2023 Telephone encounter Note Cancelled appointment. [facility] 12-08-2023 Telephone encounter Note Yumiko: Please [...] Gleason and Dr. Avilez. Mecca Boyle RN [facility] 12-08-2023 Telephone encounter Note Spoke with patients son, he would like scheudled at [facility] since its easiest for nusing home I sent over order will check on later, thanks [facility] 12-08-2023 Telephone encounter Note Called son to see where they would like the MRI scheduled, had to leave a message. [facility] 12-07-2023 History of Presen t illness [...] when she presented to Dr. Crespo in [place] from her nursing facility with symptoms [...] Alcohol use: Yes Drug use: Not Currently [employer] CUTTER APPRENTICE HISTORY: The patient is postmenopausa. COMPLETE REVIEW OF SYSTEMS: All other ROS: negative As noted in HPI PHYSICAL EXAM: VS: There were no vitals taken for this visit. KPS: 70 General Appearance: Alert and oriented. No acute distress. HEENT: NCAT. Sclera anicteric. PERRL. EOMI. Chest: No respiratory distress. Abdomen: Soft. Nontender. Nondistended. GRANITE CUTTER APPRENTICE: Deferred at this time. RADIOLOGY/LABORATORY DATA: see [...] MD cc: El Ahmadi [address] [facility] [address] Jayashree Avilez Bufferer Oncology-[place] Abisai Gleason Heme/Onc-[place] documented in this encounter [facility] 12-07-2023 Note HNO ID: [id number] Author: LAISHA COBURN MD Service: ? Author [...] when she presented to Dr. Crespo in [place] from her nursing facility with symptoms [...] Alcohol use: Yes Drug use: Not Currently GRANITE CUTTER APPRENTICE HISTORY: The patient is (more content not included)... [facility] 12-02-2023 Note HNO ID: [id number] Author: MIRIAN JIMENES RT(Con) Service: ? Author [...] 1340 PATIENT DISCHARGED TO: Ambulatory patient, left OR department area. A Diagnostic radioactive procedure has taken place, with no further precautions necessary other than routine body substance precautions. More information regarding radiation safety can be found using this link: [email or web address] SIGNATURE: RT Aliyah(R) PATIENT NAME: Candis Johnson DATE: December 02, 2023 TIME: 2:23 PM PAGER/CONTACT #: [facility] 12-02-2023 Note HNO ID: [id number] Author: ASHWINI BUNCH RN Service: ? Author [...] DATE: December 02, 2023 TIME: 1:44 PM [facility] 11-28-2023 Telephone encounter Note MRI order pending your approval. Mecca Boyle RN [facility] 11-28-2023 Telephone encounter Note Please place MRI orders [facility] 11-28-2023 Note HNO ID: [id number] Author: EL AHMADI MD Service: ? Author Type: Physician Type: Progress Notes Filed: 12/13/2023 04:59 Note Text: Radiation Oncology - New Patient/Consult Note PATIENT NAME: Candis Johnson PATIENT REQUESTING PHYSICIAN: Dr. Jayashree Avilez, Dr. Abisai Gleason DIAGNOSIS: Locally advanced cervical cancer. PATIENT IDENTIFICATION: This patient was seen in the Department of Radiation Oncology at the [facility] with El Ahmadi MD. She was accompanied today by her son. She is mostly deaf and much of the conversation was conducted with the son who is also the medical power of cylinder batcher. Final recommendations will be communicated back to the requesting physician by way of the shared medical record, or letter to requesting physician via US mail. HISTORY OF PRESENT ILLNESS: Ms. Johnson is a 68-year old deaf woman residing in an assisted living facility in [place], [place] and her son is her medical power of cylinder batcher. Per note from Dr. Gleason on 11/24/2023: [...] the final pathology as below Path Number: [id number] -- Diagnosis -- A. LEFT CERVIX, BIOPSY: [...] IIIb cervical cancer and was evaluated by GRANITE CUTTER APPRENTICE oncology and due to the fact fixed [...] lives in an assisted living facility in [place], [place]. She had a legal guardian in the past and her son is now the medical power of cylinder batcher. She also has two other children. RADIATION HISTORY: The patient denies any history of therapeutic radiation. ALLERGIES: ALLERGIES No Known Allergies MEDICATIONS: Current Outpatient Medications: atorvastatin (LIPITOR) 40 mg tablet aspirin 81 mg cap TRULICITY 0.75 mg/0.5 mL pen injector cholecalciferol (VITAMIN D3) 5,000 unit tab acarbose (PRECOSE) 100 mg tablet acetaminophen (TYLENOL) 500 mg tablet CAPLYTA 42 (more content not included)... [facility] 11-28-2023 History of Presen t illness Narrative Images from the original note were not included. Radiation Oncology - New Patient/Consult Note PATIENT NAME: Candis Johnson PATIENT REQUESTING PHYSICIAN: Dr. Jayashree Avilez, Dr. Abisai Gleason DIAGNOSIS: Locally advanced cervical cancer. PATIENT IDENTIFICATION: This patient was seen in the Department of Radiation Oncology at the [facility] with El Ahmadi MD. She was accompanied today by her son. She is mostly deaf and much of the conversation was conducted with the son who is also the medical power of cylinder batcher. Final recommendations will be communicated back to [...] lives in an assisted living facility in [place], [place]. She had a legal guardian in the past and her son is now the medical power of cylinder batcher. She also has two other children. RADIATION [...] her son is her medical power of cylinder batcher. She was recently diagnosed with advanced cervical [...] later this week. She has met with GRANITE CUTTER APPRENTICE oncologist Dr. Avilze and medical oncologist Dr. Templeton and is [...] the residual disease to be performed at [facility] by one of my colleagues. 3. Referral will be made to my cte teacher radiation oncology colleagues at [facility] for evaluation and treatment recommendations including making [...] which included preparing to see the patient, [id number] patient care, and counseling and educating the patient/family/caregiver. This document has been created with the use of voice recognition technology. It may contain inaccuracies, misspellings, inaccurate syntax or inappropriate word context that are a result of the inadequacies/shortcomings of said technology/software. documented in this encounter [facility] 11-28-2023 Telephone encounter Note Rad onc consult order signed for [facility] referral (brachytherapy). Can cancel consult request with Dr. Mckinley - she is established with cte teacher onc out of [facility] (Dr. Avilez). Will need repeat MRI pelvis week of January 15. Thanks! El [facility] 11-28-2023 Nurse Note Pacemaker/Defibrillator?N Previous Cancer(s)?N Previous Radiation?N Lupus/Scleroderma?N On body monitoring device?N [facility] 11-28-2023 Nurse Note Pacemaker/Defibrillator?N Previous Cancer(s)?N Previous Radiation?N Lupus/Scleroderma?N On body monitoring device?N documented in this encounter [facility] 11-28-2023 Nurse Note Radiation Therapy - Patient Education Note PATIENT NAME: Candis Johnson PATIENT November 28, 2023 [facility] FACILITY/LOCATION: [facility] READINESS TO LEARN Cognitive Ability: Confused at [...] device: No Signed by: Nathalie Saleh RN [facility] 11-28-2023 Nurse Note Radiation Therapy - Patient Education Note PATIENT NAME: Candis Johnson PATIENT November 28, 2023 [facility] FACILITY/LOCATION: [facility] READINESS TO LEARN Cognitive Ability: Confused at [...] Nathalie Saleh RN documented in this encounter [facility] 11-28-[address] Ahmadi- kaelyn pending your approval. Nathalie Saleh RN [facility] 11-28-2023 Telephone encounter Note Please place [facility] RAD onc consult [facility] 11-28-2023 Note Education (RADTSA) CANDIS JOHNSON ([id number]) 1955 F DEF Date Time Provider Department 11/28/23 NATHALIE SALEH Reason for Visit: Patient Education [91] Visit Notes: >> Nathalie Saleh RN Mon November 28, 2023 10:22 AM Status: Signed Radiation Therapy - Patient Education Note PATIENT NAME: Candis Johnson PATIENT November 28, 2023 [facility] FACILITY/LOCATION: [facility] READINESS TO LEARN Cognitive Ability: Confused at [...] Encounter Status:Closed by NATHALIE SALEH on 11/28/23 [facility] 11-25-2023 Telephone encounter Note I called and spoke to Angelina at [facility] and she said Candis does [...] language. She has been a resident at [facility] assisted living for 4-5 years and does very well there per Landen. I notified Landen that Dr. Ahmadi is ordering a PET scan, rad onc consult at [facility] and trying to move up Candis's consult with Dr. Elías zimmer. Landen states between himself and [facility] transportation should not be an issue. Yumiko: 1. Please schedule PET scan gro[place]. 2. Rad Onc consult at [facility] 3. Move up Dr. Mckinley's consult goran. Dr. Mckinley are you or your staff able to assist in rescheduling Ms. Johnosn's consult with you goran per Dr. Ahmadi? She is currently scheduled for consult on 12/28/23. Thanks Mecca BoyleRN [facility] 11-21-2023 Note Cardiology Clinic No te HPI: Candis Johnson is a 68 y.o. female With no reported cardiac history who presened to cardiology clinic at the request of her BOOT MAKER doctor for perioperative restratification prior to D&C and LEEP procedure. Of note: Patient is deaf. 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 She does her best to communicate by lipreading. She is accompanied by her spotter driver today, who assists in communication. Stress test and echocardiogram were performed after last visit. Stress test without evidence of ischemia. Echocardiogram demonstrated preserved EF. She had moderately elevated right-sided pressures (51 mmHg) and diastolic dysfunction. Patient here for 2 mo follow up. Lasix was put on hold at last apt in September 2023 by Leydi Miles CNP. Patient was admitted to [facility] for HGB of 6.5. D&C was attempted by Dr. Crespo but unsuccessful. She was transferred to [facility]. Cervical cancer is suspected per assisted living facilty. They would also like to know if lasix should be resumed or continue to be held. Patient still endorses some shortness of breath. Cardiology ROS: 10 point ROS is performed and is negative unless otherwise specified in HPI. Past Medical History She has a past medical history of Diabetes mellitus ([facility]). Surgical History She has no [...] possible cervical cancer. Recommend follow up with senior visual designer for this -Optimize medical management -Aggressive risk factor modification -Plan of care discussed with patient. All questions were answered. Patient voices understanding and is agreeable with current plan. -Patient was educated on red flag symptoms. Strict return precautions were provided. Patient verbalizes (more content not included)... [facility] 11-12-2023 Hospital course Narrative Bufferer/Onc Discharge Summary [facility] Patient Name: Candis Johnson Patient : 1955 [...] examination of vaginal mass as transfer from [facility]; HD#1 (11/09): Patient is hard of [...] Follow-up care, restrictions reviewed. Wil Mai MD [employer] [place] Res[employer] [facility] 11/12/2023, 9:07 AM documented in this encounter [facility] 11-12-2023 History of Presen t illness Narrative Gynecology Oncology Progress Note Candis Johnson is a 68 y.o. female HD#3, POD#1 who transferred from [place] due to concern for vaginal mass Patient [...] Pickeringnoemi 68 y.o. female HD#3 transferred from [place] due to concern for vaginal mass - [...] with Deafness - Discussed with nursing at [facility] and patient's son, Landen - [...] significant clearance testing in anticipation for her cte teacher/urologic procedures - 09/09/23: myocardial perfusion imagining normal - 09/09/23: ECHO: EF 55-60%; normal RV size/function. Bilateral enlargement. Grade 2 diastolic dysfunction. - Repeat EKG 11/09: Normal sinus rhythm, anterior infarct age undetermined (old, seen on EKG on 08/15/23) - Nitroglycerin ordered PRN - Ranolazine not ordered inpatient - Continue to monitor Anemia - Admit Hgb @ [place] 6.5 - S/p 2u pRBC Hgb 8.9 - Admit Hgb at [facility] 8.7 - Hgb 5/3; 9.0 - [...] insulin requirement Schizophrenia - Per nursing at [facility] and patient's son, patient has significant PMH of schizophrenia - Home meds include Topomax and Lumaterprone (not on formulary at [facility]. Consulted with [facility] pharmacy and they [...] y.o. female HD#2, POD#0 who transferred from [place] due to concern for vaginal mass Patient [...] Johnson 68 y.o. female HD#2 transferred from [place] due to concern for vaginal mass - [...] with Deafness - Discussed with nursing at [facility] and patient's son, Landen - [...] significant clearance testing in anticipation for her cte teacher/urologic procedures - 09/09/23: myocardial perfusion imagining normal [...] pRBC Hgb 8.9 - Admit Hgb at [facility] 8.7 - Hgb 5/3; 9.0 - [...] insulin requirement Schizophrenia - Per nursing at [facility] and patient's son, patient has significant PMH of schizophrenia - Home meds include Topomax and Lumaterprone (not on formulary at [facility]. Consulted with [facility] and they [...] a 68 y.o. female HD#2 transferred from [place] due to concern for vaginal mass Patient [...] Johnson 68 y.o. female HD#2 transferred from [place] due to concern for vaginal mass - [...] with Deafness - Discussed with nursing at [facility] and patient's son, Landen - [...] significant clearance testing in anticipation for her cte teacher/urologic procedures - 09/09/23: myocardial perfusion imagining normal [...] pRBC Hgb 8.9 - Admit Hgb at [facility] 8.7 - AM CBC pending - [...] insulin requirement Schizophrenia - Per nursing at [facility] and patient's son, patient has significant PMH of schizophrenia - Home meds include Topomax and Lumaterprone (not on formulary at [facility]. Consulted with [facility] and they [...] been discussed in detail. The patient's son, aLnden act as the patient's health care power of cylinder batcher. Landen has been advised of the risks, [...] Evaluation: A cardiology evaluation was completed at [facility] prior to her transfer. Records have been reviewed. Lab results have been reviewed Proceed with surgical evaluation as planned Jayashree Avilez MD Gynecologic Oncology Obstetric/Gynecology Resident Interval Note At time of rounding, patient in MRI suite obtaining MRI pelvis. Dr. Avilez, GRANITE CUTTER APPRENTICE/ONC attending, present at bedside to discuss evaluation and management plans with patient's son, Landen. Landen is the patient's power of cylinder batcher and medical decision maker. Paperwork uploaded to [...] ms QTc Calculation (Bazett) 410 ms P New[place] 40 degrees R Newburg 6 degrees T Newburg 20 degrees EKG 12 Lead Collection Time: 11/10/23 4:32 AM Result Value Ref Range Ventricular Rate 65 BPM Atrial Rate 65 BPM P-R Interval 172 ms QRS Duration 86 ms Q-T Interval 406 ms QTc Calculation (Bazett) 422 ms P [place] 42 degrees R Newburg 7 degrees T [place]burg 19 degrees Comprehensive Metabolic Panel w/ Reflex [...] Sample Expiration 11/13/2023,2359 Arm Band Number BE [id number] ABO/Rh O POSITIVE Antibody Screen NEGATIVE Lipid [...] 65 - 105 mg/dL Annabelle Moss MD BOOT MAKER Resident, PGY2 [place], [place] 11/10/2023, 5:14 PM Attending Physician Statement [...] the resident. Jayashree Avilez MD Gynecologic Oncology PORTER HEAD ALL NOTES Facility/Department: [address] MED SURG CLINICAL BEDSIDE SWALLOW EVALUATION NAME: Candis Johnson : 1955 ADMISSION DATE: 11/10/2023 ADMITTING DIAGNOSIS: has Vaginal mass on their problem list. Date of Eval: 11/10/2023 Evaluating Therapist: JODIE Damon Current Diet level: Current Diet : NPO Current Liquid Diet : NPO Primary Complaint: Candis Johnson is a 68 y.o. female presents to [facility] as a direct transfer from [facility] for concern for vaginal cancer. All the information is derived from a paper chart from [facility]. We do not have access to [...] Normal in all situations Treatment Plan Requires PORTER HEAD Intervention: Yes 1-2X D/C Recommendations: Ongoing speech [...] Patient Education Response: Verbalizes understanding Therapy Time [id number] JODIE Damon 11/10/2023 11:10 AM Unable to complete admission assessment. Patient has impaired hearing. documented in this encounter [facility] 10-06-2023 Note Cardiology Clinic No te Chief Complaint: preop risk stratification HPI: PMHx: Candis Johnson is a 68 y.o. female With no reported cardiac history who presents to cardiology clinic at the request of her BOOT MAKER doctor for perioperative restratification prior to D&C and LEEP procedure. Of note: Patient is deaf. 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 She does her best to communicate by lipreading. She is accompanied by her spotter driver today, who assists in communication. Today, [...] a past medical history of Diabetes mellitus ([facility]). Surgical History She has no [...] test 09/09/2023 N (more content not included)... [facility] 10-06-2023 Note Patient here for 2 w [place] follow up SOB, atypical chest pain, and [...] All other systems reviewed and are negative. [facility] 09-23-2023 Note Cardiology Clinic No te Chief Complaint: preop risk stratification HPI: Candis Johnson is a 68 y.o. female With no reported cardiac history who presents to cardiology clinic at the request of her BOOT MAKER doctor for perioperative restratification prior to D&C and LEEP procedure. Of note: Patient is deaf. 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 She does her best to communicate by lipreading. She is accompanied by her spotter driver today, who assists in communication. Today, [...] a past medical history of Diabetes mellitus ([facility]). Surgical History She has no [...] -Further recommendations regardi (more content not included)... [facility] 09-23-2023 Note Concerns: Not much s tates some swelling in legs and some back back, chest pain seems to be getting better [facility] 08-26-2023 Note Cardiology Clinic No te Chief Complaint: preop risk stratification HPI: Candis Capelle is a 68 y.o. female With no reported cardiac history who presents to cardiology clinic at the request of her BOOT MAKER doctor for perioperative restratification prior to D&C and LEEP procedure. Of note: Patient is deaf. 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 She does her best to communicate by lipreading. She is accompanied by her spotter driver today, who assists in communication. As per patient and her spotter driver, patient denies any cardiac history. She denies any prior history of heart failure, CAD, PCI, or [place]. She does report occasional chest pain. Chest [...] a past medical history of Diabetes mellitus ([facility]). Surgical History She has no [...] HLD -Optimize med (more content not included)... [facility] 08-26-2023 Note New patient here to establish care. Ref from Dr. Crespo for surgery clearance prior to D&C and LEEP procedure. This is scheduled for 08/31 at [facility] per patient. She had labs and EKG last week. Says she gets intermittent chest pain and SOB w/ exertion. Review of Systems HENT: Positive for hearing loss. Cardiovascular: Positive for chest pain (intermittent) and dyspnea on exertion (intermittent). All other systems reviewed and are negative. [facility] 08-04-2023 Evaluation + Plan note Diagnostic Tests PendingUrine Cytology ([facility]) 08/04/23 [facility] 08-03-2023 Hospital Discharg e instructions Patient [...] including vitamins, herbs, eye drops, creams, and khvj-udo-qvmlatv medicines. Any problems you or family members [...] health care provider tells you to. Taking fsxa-sbz-egtojle medicines, vitamins, herbs, and supplements. General instructions [...] provider. Document Revised: 10/22/2022 Document Reviewed: 10/22/2022 [employer] Patient Education 2022 [employer]. 08/03/2023 09:37:21 Hematuria, Adult Hematuria, Adult Hematuria [...] Follow these instructions at home: Medicines Take sdlu-eps-cpcjgxg and prescription medicines only as told by [...] or the blood stops without treatment. Take kvgy-umn-vqfmanc and prescription medicines only as told by your health care provider. Drink enough fluid to keep your urine pale yellow. This information is not intended to replace advice given to you by your health care provider. Make sure you discuss any questions you have with your health care provider. Document Revised: 02/25/2021 Document Reviewed: 02/25/2021 [employer] Patient Education 2022 [employer]. Follow Up Care 07/13/2023 11:34:42 With:Marcelino GALLARDO, [...] of urinary tract documented in this encounter [facility] note* Diagnosis High grade squamous intraepithelial lesion (HGSIL), grade 3 SUDHA, on biopsy of cervix- Primary documented in this encounter [facility] note* Diagnosis 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)- Primary documented in this encounter [facility] note* Diagnosis 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)- [facility] 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)- [facility] Diagnosis 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)- [facility] No data available for this [facility] Attachments The following attachments cannot be sent through Care Everywhere. * Hysteroscopy: Post-op (Khmer) * Cystoscopy: Post-op (Khmer) [facility] No data available for this section [facility] Devver reason for referral (narrative)* Diagnostic Procedure Only (Routine) - Pending Review Specialty Diagnoses / Procedures Referred By Luis hernandez Referred To Contact MOLECULAR & FUNCTIONAL IMAGING Diagnoses 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) Procedures NM PET/CT SKULL-THIGH INITIAL PET IMAGING CT ATTENUATION SKULL BASE MID-THIGH El Ahmadi MD [facility] [employer] [facility] [place] [address] Molecular & Functional Imaging [address] [place] [address] Referral ID Status Reason Start Date Expiration Date Visits Requested Visits Authorized [id number] Pending Review Auto-Generat ed Referral 11/25/2023 12/24/2024 1 1 [facility] Summary Purpose Family History No Family [...] W/O & W/CONTRAST MATERIAL El Ahmadi MD [facility] [address] [place] [address] [place] [address] Referral ID Status Reason Start Date Expiration Date Visits Requested Visits Authorized [id number] Pending Review Auto-Generat ed Referral 01/16/2024 12/27/2024 1 1 Specialty Diagnoses / Procedures Referred By Contac t Referred To Contact Radiation Oncology Diagnoses 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) Procedures RAD/ONC CONSULT OFFICE/OUTPATIENT [facility] 60 MINUTES El Ahmadi MD [address] [place] [address] Referral ID Status Reason Start Date Expiration Date V isits Requested Visits Authorized [id number] Closed PCP Requested Referral 11/29/2023 11/27/2024 1 1 Additional Source Comments INFORMATION SOURCE (unrecogn ized section and content) DATE CREATED AUTHOR 07/05/2022 [facility] DATE CREATED AUTHOR AUTHOR'S ORGANIZ ATION 11/04/2023 [facility] EPIC DATE CREATED AUTHOR AUTHOR'S ORGANIZ ATION 12/13/2023 [facility] DATE CREATED AUTHOR AUTHOR'S ORGANIZ ATION 12/17/2023 [facility] DATE CREATED AUTHOR AUTHOR'S ORGANIZ ATION 12/20/2023 [facility] DATE CREATED AUTHOR AUTHOR'S ORGANIZ ATION 01/09/2024 [facility] DATE CREATED AUTHOR AUTHOR'S ORGANIZ ATION 01/12/2024 [facility] Patient Care team informatio n (unrecognized section and content) Rn Traveling Relationship Specialty Start Date End Date Ander Langley DO [address] [place] [phone] PCP - General Internal Medicine 11/10/23 Reason for Visit (unrecogniz ed section and content) Specialty Diagnoses / Procedures Referred By Contac t Referred To Contact Diagnoses Vaginal mass vaginal cancer, anemia bleeding Jayashree Avilez MD [address] [place] [address] [address] [place] [address] [facility] [address] [place] [address] Referral ID Status Reason Start Date Expiration Date Visits Re quested Visits Authorized [id number] 1 1 Reason Comments Patient Education Reason Comments Orders Patient Update Reason Comments Patient Update Reason Onset Date Comments Consult Simulation Request Form 11/28/2023 Reason Comments Consult Specialty Diagnoses / Procedures Referred By Contac t Referred To Contact Radiation Oncology Diagnoses 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) Procedures RAD/ONC CONSULT OFFICE/OUTPATIENT [facility] 60 MINUTES El Ahmadi MD [address] [place] [address] [place] [address] Referral ID Status Reason Start Date Expiration Date V isits Requested Visits Authorized [id number] Closed PCP Requested Referral 11/29/2023 11/27/2024 1 [...] rate as the piggyback being infused. 1623 ([facility] Hold - Provider: Tiffany Autohold - Reason: Unreviewed Transfer Orders)1931 ([facility] Unhold - Provider: Marysol Head RN) acetaminophen (TYLENOL) tablet 1,000 mg 1,000 mg, Oral, EVERY 6 HOURS PRN, Starting on Rosina 11/10/23 at 0934, Until Discontinued, Pain Mild (1-3) 1623 ([facility] Hold - Provider: Tiffany Autohold - Reason: Unreviewed Transfer Orders)1931 ([facility] Unhold - Provider: Marysol Head RN) albuterol sulfate HFA (PROVENTIL;VENTOLIN;PROAIR) 108 (90 Base) MCG/ACT inhaler 2 puff 2 puff, Inhalation, EVERY 6 HOURS PRN, Starting on Rosina 11/10/23 at 0937, Until Discontinued, Wheezing, Initiate RT Bronchodilator Protocol: Yes - Inpatient Protocol 1623 ([facility] Hold - Provider: Tiffany Autohold - Reason: Unreviewed Transfer Orders)1931 ([facility] Unhold - Provider: Marysol Head [...] 60 minutes, discontinue dextrose 10% infusion. 1623 ([facility] Hold - Provider: Tiffany Autohold - Reason: Unreviewed Transfer Orders)1931 ([facility] Unhold - Provider: Marysol Head [...] at 100 mL/hour and notify provider. 1623 ([facility] Hold - Provider: Tiffany Autohold - Reason: Unreviewed Transfer Orders)1931 ([facility] Unhold - Provider: Marysol Head [...] at 100 mL/hour and notify provider. 1623 ([facility] Hold - Provider: Tiffany Autohold - Reason: Unreviewed Transfer Orders)1931 ([facility] Unhold - Provider: Marysol Head RN) fluticasone (FLONASE) 50 MCG/ACT nasal spray 2 spray 2 spray, Each Nostril, DAILY PRN, Starting on Rosina 11/10/23 at 0938, Until Discontinued, Rhinitis 1623 ([facility] Hold - Provider: Tiffany Autohold - Reason: Unreviewed Transfer Orders)1931 ([facility] Unhold - Provider: Marysol Head [...] minutes x 2 and notify provider. 1623 ([facility] Hold - Provider: Tiffany Autohold - Reason: Unreviewed Transfer Orders)1931 ([facility] Unhold - Provider: Marysol Head [...] LESS THAN 70 mg/dL, notify provider. 1623 ([facility] Hold - Provider: Tiffany Autohold - Reason: Unreviewed Transfer Orders)1931 ([facility] Unhold - Provider: Marysol Head [...] Bronchodilator Protocol: Yes - Inpatient Protocol 1623 ([facility] Hold - Provider: Tiffany Autohold - Reason: Unreviewed Transfer Orders)1931 ([facility] Unhold - Provider: Marysol Head [...] Substituted for nitroGLYCERIN translingual spray (NITROLINGUAL).. 162 ([facility] Hold - Provider: Tiffany Autohold - Reason: Unreviewed Transfer Orders)193 ([facility] Unhold - Provider: Marysol Head RN) ondansetron (ZOFRAN) injection 4 mg(Linked Group 2) 4 mg, IntraVENous, EVERY 6 HOURS PRN, Starting on Rosina 11/10/23 at 0353, Until Discontinued, Nausea, Vomiting, Administer if oral route cannot be used. 162 ([facility] Hold - Provider: [facility] Autohold - Reason: Unreviewed Transfer Orders)1931 ([facility] Unhold - Provider: Marysol Head RN) ondansetron (ZOFRAN-ODT) disintegrating tablet 4 mg(Linked Group 2) 4 mg, Oral, EVERY 8 HOURS PRN, Starting on Rosina 11/10/23 at 0353, Until Discontinued, Nausea, Vomiting 1623 ([facility] Hold - Provider: [facility] Autohold - Reason: Unreviewed Transfer [...] or prosecute any alcohol or drug abuse patient.[facility] the event this information is protected by the Federal Confidentiality of Alcohol and Drug Abuse Patient Records regulations: The Federal rules restrict any use of the information to criminally investigate or prosecute any alcohol or drug abuse patient.[facility] Hospital[facility] the event this information is protected by the Federal Confidentiality of Alcohol and Drug Abuse Patient Records regulations: The Federal rules restrict any use of the information to criminally investigate or prosecute any alcohol or drug abuse patient.[facility] the event this information is protected by the Federal Confidentiality of Alcohol and Drug Abuse Patient Records regulations: The Federal rules restrict any use of the information to criminally investigate or prosecute any alcohol or drug abuse patient.[facility] HospitalIn the event this information is protected by the Federal Confidentiality of Alcohol and Drug Abuse Patient Records regulations: The Federal rules restrict any use of the information to criminally investigate or prosecute any alcohol or drug abuse patient.[facility] HospitalIn the event this information is protected by the Federal Confidentiality of Alcohol and Drug Abuse Patient Records regulations: The Federal rules restrict any use of the information to criminally investigate or prosecute any alcohol or drug abuse patient.[facility] HospitalIn the event this information is protected by the Federal Confidentiality of Alcohol and Drug Abuse Patient Records regulations: The Federal rules restrict any use of the information to criminally investigate or prosecute any alcohol or drug abuse patient.[facility] HospitalIn the event this information is protected by the Federal Confidentiality of Alcohol and Drug Abuse Patient Records regulations: The Federal rules restrict any use of the information to criminally investigate or prosecute any alcohol or drug abuse patient.[facility] FOR RECORDS PERTAINING TO PATIENTS WHO [...] BE BASED ON THE PRIMARY CLINICAL RECORDS. [facility] [employer] [facility]. provides no warranty or guarantee of the accuracy or completeness of information in this document.
[2024-01-27 09:43] LABS: Glucose 96 mg/dL (74-106)
== END 2024-01-27 04:53 | disposition home or self-care (01) ==
LOC: LAB 04:52
PROVIDERS: PCP Internal Medicine; Visit Provider Internal Medicine
DX: D64.9 Anemia, unspecified (principal)
CPT/HCPCS: 36415; 82947

== ENCOUNTER 2024-01-28 15:12 | Emergency (ER) | payer MEDICARE, MEDICAID, SELFPAY ==
[2024-01-28 15:18] VITALS: PULSE 37; O2SAT 99
[2024-01-28 15:20] VITALS: O2SAT 98
[2024-01-28 15:21] VITALS: BP 84/60; PULSE 42; TEMP 35.6; O2SAT 96; BMI 28.1
--- OUTSIDE RECORDS SUMMARY | 2024-01-28 15:24 | XMS_ITS | CCD ---
Author Organization [facility] ion [facility] Care Team Providers Care Salesperson [employer] Name Role Phone MARKER, DR SALINAS Consulting [...] Unavailable Ander Langley DO Primary Care Provider [phone] Unavailable Primary Care Provider UnavailANDER Lance Primary Care Unavailable JAYASHREE AVILEZ Admitting Unavailable JAYASHREE AVILEZ Attending Unavailable SYABEL DUQUE Referring Unavailable ANDER LANGLEY Primary Care [...] 8 hours as needed. 0 05/20/2023 Active [id number] 200 actuat albuterol 0.09 mg/actuat metered dose [...] (ALISSA NASE) 50 mcg/actuation nasal spray 1 [place] once daily. 0 Active furosemide 20 mg [...] times a day. 0 05/15/2023 Active sennosides, residential 8.6 mg oral tablet (1 source) Start: [...] source) Long-term current use of aspirin; Translations: [detention (current) use of aspirin] Onset: 4 Episodic [...] Range Facility Consultation Noteon 12-27-19 Consultation Note [id number]#1.00TI FF Normal [facility] Pathology Noteon 12-27-2023 Pathology Note [id number]#1.00T IFF Normal [facility] RAD - Nuclear Medicine Repor ton 12-27-2023 RAD - Nuclear Medicine Report [id number]#1.00T IFF Normal [facility] Office Visiton 12-16-2023 Follow-up visit [id number] Kelby Johnson 1955 F Date Provider Department Center 12/16/2023 [id number] AGUILAR CARD [facility] Family History Problem Relation Age of Onset Coronary artery disease Mother Cancer Father Diabetes Father Family Status - Relation Status Age at Mother Father Level of Service:59821 CT OFFICE/OUTPATIENT ESTABLISHED LOW MDM 20 MIN Normal [facility] Operative Reporton Operative Report [id number]#1.00T IFF Normal [facility] Armani 12-08-2023 CNPN Telephone (RADTSA) CANDIS JOHNSON ([id number]) 1955 F DEF Date Time Provider Department [...] Gleason and Dr. Avilez. Images pushed to [facility]. Allergies As of Date: 12/08/2023 (No [...] fluticasone (FLONASE) 50 mcg/actuation nasal spray 1 [place] once daily. - magnesium hydroxide (MOM) 400 [...] Encounter Status:Closed by MECCA BOYLE on 12/08/23 [facility] CNOVon 12-07-2023 CNOV Office Visit (RADTMN ) CANDIS JOHNSON ([id number]) 1955 F DEF Date Time Provider Department [...] when she presented to Dr. Crespo in [facility] from her nursing facility with symptoms of [...] included)... Normal [facility] Consultation Noteon 12-02-19 Consultation Note [id number]#1.00TI FF Normal [facility] NM PET/CT SKULL-THIGH INITon 12-02-2023 NM PET/CT [...] * Radiopharmaceutical Dose: 9.7 mCi * Radiopharmaceutical: [id number] (FDG) COMPARISON: No previous FDG PET/CT available CORRELATION: [facility] MRI pelvis 11/10/2023; [facility] CT abdomen/pelvis 06/06/2023 RESULT: REFERENCES: SUV reference values: * Blood pool (descending aorta) activity: SUVmax 3.0 * Background liver activity: SUVmax 3.3 Watershed Manager (topogram) images: No additional findings. Notes [...] included)... Normal [facility] Orders Onlyon 12-01-2023 Orders Only [id number] Kelby Johnson 1955 F Date Provider Department Center 12/01/2023 [id number][facility] Gail Barreto Family History Problem Relation Age of Onset Coronary artery disease Mother Cancer Father Diabetes Father Family Status - Relation Status Age at Mother Father Normal [facility] CNOVon 11-28-2023 CNOV Office Visit (RADTSA ) ARICANDIS Franklin Alisa ([id number]) 1955 F DEF Date Time Provider Department [...] of Radiation Oncology at the [facility] with El Ahmadi MD. She was accompanied today by her son. She is mostly deaf and much of the conversation was conducted with the son who is also the medical power of collections attorney. Final recommendations will be communicated back to the requesting physician by way of the shared medical record, or letter to requesting physician via US mail. HISTORY OF PRESENT ILLNESS: Ms. Johnson is a 68-year old deaf woman residing in an assisted living facility in [place], [place] and her son is her medical power of collections attorney. Per note from Dr. Gleason on [...] the final pathology as below Path Number: [id number] -- Diagnosis -- A. LEFT CERVIX, BIOPSY: [...] IIIb cervical cancer and was evaluated by [facility] and due to the fact fixed [...] lives in an assisted living facility in [place], [place]. She had a legal guardian in the past and her son is n (more content not included)... Normal [facility] Armani 11-25-2023 RADHIKAN Telephone (RADTSA) CANDIS JOHNSON ([id number]) 1955 F DEF Date Time Provider Department 11/25/23 EL AHMADI During your visit today, we recorded the following information about you: Mecca Boyle LPN 11/25/2023 2:29 PM Signed I called and spoke to Angelina at [facility] and she said Candis does very well [...] language. She has been a resident at [facility] assisted living for 4-5 years and does very well there per Landen. I notified Landen that Dr. Ahmadi is ordering a PET scan, rad onc consult at [facility] and trying to move up Candis's consult with Dr. Mckinley goran. Landen states between himself and [facility] transportation should not be an issue. Yumiko: 1. Please schedule PET scan goran. 2. Rad Onc consult at [facility] 3. Move up Dr. Mckinley's consult goran. Dr. Mckinley are you or your staff able to assist in rescheduling Ms. Johnson's consult with you goran per Dr. Ahmadi? She is currently scheduled for consult on 12/28/23. Thanks PARAG Aguilar Tiffany 11/28/2023 7:[address] [facility] RAD onc consult Nathalie Saleh RN 11/28/2023 7:[address] Ahmadi- order pending your approval. PARAG Alves Saju, MD 11/28/2023 10:28 AM Signed Rad onc consult order signed for [facility] referral (brachytherapy). Can cancel consult request with Dr. Mckinley - she is established with [facility] onc out of [place] already (Dr. Avilez). Will need repeat MRI [...] patients son, he would like scheudled at [facility] since its easiest for nusing home I sent over order will check on later, thanks Yumiko Mariee 12/08/2023 12:08 PM Signed MRI not needed per chat Allergies As of Date: 11/25/2023 (Not on File) Date Reviewed: Never Reviewed Reason for Visit: Orders [681] Patient Update [1234] Primary Visit Diagnosis: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) [C53.8] Order(s):RAD/ONC CONSULT [9037] Order #: [id number]: 1 FUTURE MRI FEMALE PELVIS WO/W IVCON [5274427] Order #: [id number] FUTURE [] iv contrast (will be provided [...] fluticasone (FLONASE) 50 mcg/actuation nasal spray 1 [place] once daily. - mag (more content not included)... Normal [facility] OUTSIDE SURG PATH SLIDE REVI EWon 11-25-2023 CASE REPORT Normal [facility] Comment on above: Order Comment: Speci men Type: FORMALIN-FIXED PARAFFIN-EMBEDDED TISSUE SPECIMEN Ordering Facility: [facility] Review Address: , , Result Comment: [facility] Pathology Report Case: [id number] Authorizing Provider: Mariam Mckinley MD Collected: 11/25/2023 02:11 PM Ordering Location: [facility] Received: 11/25/2023 02:12 PM [facility] Pathologist: Ernestina Parada MD Specimen: Slide(s), 5 SLIDES [id number] Performed By: #### L [id number] #### [facility] CLIA [id number] [address] [place] [address] [place] DIAGNOSIS COMMENT 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 Normal [facility] Comment on above: Order Comment: Speci men Type: FORMALIN-FIXED PARAFFIN-EMBEDDED TISSUE SPECIMEN Ordering Facility: [facility] Review Address: , , Performed By: #### L [id number] #### [facility] CLIA [id number] [address] [place] [address] FINAL DIAGNOSIS Normal [facility] Comment on above: Order Comment: Speci men Type: FORMALIN-FIXED PARAFFIN-EMBEDDED TISSUE SPECIMEN Ordering Facility: [facility] Review Address: , , Result Comment: Outs miguel angel case from [place], [place] (VS [id number], collected 11/11/2023) A. Left cervix, biopsy: - Invasive squamous cell carcinoma, see comment. B. 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 Performed By: #### L [id number] #### [facility] CLIA [id number] [address] [place] [address] FINAL PERFORMING LAB Normal [facility] Comment on above: Order Comment: Speci men Type: FORMALIN-FIXED PARAFFIN-EMBEDDED TISSUE SPECIMEN Ordering Facility: [facility] Review Address: , , Result Comment: Diag nostic interpretation performed at [facility], [address] [place] [address] CLIA# [id number] Eligibility Analyst: Navdeep Pickering M.D. Performed By: #### L [id number] #### [facility] CLIA [id number] [address] [place] [address] OF [facility] Office Visiton 11-21-2023 Follow-up visit [id number] Kelby Johnson A 1955 F Date Provider Department Center 11/21/2023 GUERDA RYDER Family History Problem Relation Age of Onset Coronary artery disease Mother Cancer Father Diabetes Father Family Status - Relation Status Age at Mother Father Level of Service:69067 CT OFFICE/OUTPATIENT ESTABLISHED LOW MDM 20 MIN Normal [facility] Orders Onlyon 11-21-2023 Orders Only [id number] Kelby Johnson 1955 F Date Provider Department Center 11/21/2023 MARV CASAREZ CARD [facility] Family History Problem Relation Age of Onset Coronary artery disease Mother Cancer Father Diabetes Father Family Status - Relation Status Age at Mother Father Normal [facility] Consultation Noteon 11-14-19 Consultation Note [id number] IFF Normal [facility] Glucose,Whole Bloodon 2023 Glucose [Mass/Vol] 124 mg/dL High 65-105 [facility] Glucose [Mass/Vol] 87 mg/dL Normal 65-105 [facility] POC Glucose Fingerstickon Glucose [Mass/Vol] 124 mg/dL High 65 - 105 mg/dL [facility] Interpretation and review of laboratory results Abnormal [facility] [employer] [facility] Glucose [Mass/Vol] 87 mg/dL 65 - 105 mg/dL [facility] [employer] [facility] [employer] [facility] CBC with Auto Differentialon 11-11-2023 Basophils (Bld) [#/Vol] 0.03 10*3/uL [facility] Basophils/100 WBC (Bld) 0 % 0 - 2 % [facility] Eosinophils (Bld) [#/Vol] 0.31 10*3/uL [facility] Eosinophils/100 WBC (Bld) 5 % High 1 - 4 % [facility] Erythrocyte distribution width (RBC) [Ratio] 16.1 [...] 1 % High 0 [facility] [employer] [facility] Interpretation and review of laboratory results Abnormal [facility] Lymphocytes/100 WBC (Bld) 18 % Low 24 - 43 % [facility] Lymphocytes/100 WBC (Bld) 1.19 % [facility] MCH (RBC) [Entitic mass] 27.4 pg 25.2 - 33.5 pg [facility] MCHC (RBC) [Mass/Vol] 28.5 g/dL 28.4 - 34.8 g/dL [facility] MCV (RBC) [Entitic vol] 96.0 fL 82.6 - 102.9 fL [facility] Monocytes/100 WBC (Bld) 14 % High 3 - 12 % [facility] Monocytes/100 WBC (Bld) 0.91 % [facility] Neutrophils/100 WBC (Bld) 62 % 36 - 65 % [facility] Nucleated RBC/100 WBC (Bld) [Ratio] 0.0 % 0.0 per 100 WBC [facility] Platelet mean volume (Bld) [Entitic vol] 8.6 fL 8.1 - 13.5 fL [facility] Platelets (Bld) [#/Vol] 413 10*3/uL [facility] RBC (Bld) [#/Vol] 3.29 10*6/uL Low 3.95 - 5.1 1 m/uL [facility] RBC (Bld) [#/Vol] ANISOCYTOSIS PRESENT [facility] Segmented neutrophils/100 WBC (Bld) 4.27 % [facility] WBC other (Bld) [#/Vol] 6.8 [facility] CBC with Diffon 11-11-2023 Abs. Basophil 0.03 k/uL Normal 0.00-0.20 [facility] Comment on above: Performed By: #### C P, CDP #### [facility] [address] [place] [address] Duster Tender: Guillaume Roman MD Abs.Imm.Granulocyte 0.04 k/uL Normal 0.00-0.30 [facility] Comment on above: Performed By: #### C P, CDP #### [facility] [address] [place], [place] [id number] Duster Tender: Guillaume Roman MD Abs.Neutrophil (Seg) 4.27 k/uL Normal 1.50-8.10 [facility] Comment on above: Performed By: #### C P, CDP #### [address] [address] Duster Tender: Guillaume Roman MD Basophils/100 WBC (Bld) 0 % Normal 0-2 [facility] Comment on above: Performed By: #### C P, CDP #### [address] [address] Duster Tender: Guillaume Roman MD Eosinophils (Bld) [#/Vol] 0.31 10*3/uL Normal 0.00-0.44 [facility] Comment on above: Performed By: #### C P, CDP #### [place] [address] Duster Tender: Guillaume Roman MD Eosinophils/100 WBC (Bld) 5 % High 1-4 [facility] Comment on above: Performed By: #### C P, CDP #### [address] [address] Duster Tender: Guillaume Roman MD Erythrocyte distribution width (RBC) [Ratio] 16.1 % High 11.8-14.4 [facility] Comment on above: Performed By: #### C P, CDP #### [address] [address] Duster Tender: Guillaume Roman MD Hematocrit (Bld) [Volume fraction] 31.6 % Low 36.3-47.1 [facility] Comment on above: Performed By: #### C P, CDP #### [address] [address] Duster Tender: Guillaume Roman MD Hemoglobin (Bld) [Mass/Vol] 9.0 g/dL Low 11.9-15.1 [facility] Comment on above: Performed By: #### C P, CDP #### [address] [address] Duster Tender: Guillaume Roman MD Immature granulocytes/100 WBC (Bld) 1 % High 0 [facility] Comment on above: Performed By: #### C P, CDP #### [address] [address] Duster Tender: Guillaume Roman MD Lymphocytes (Bld) [#/Vol] 1.19 10*3/uL Normal 1.10-3.70 [facility] Comment on above: Performed By: #### C P, CDP #### [address] [address] Duster Tender: Guillaume Roman MD Lymphocytes/100 WBC (Bld) 18 % Low 24-43 [facility] Comment on above: Performed By: #### C P, CDP #### [address] [address] Duster Tender: Guillaume Roman MD MCH (RBC) [Entitic mass] 27.4 pg Normal 25.2-33.5 [facility] Comment on above: Performed By: #### C P, CDP #### [place] [address] Duster Tender: Guillaume Roman MD MCHC (RBC) [Mass/Vol] 28.5 g/dL Normal 28.4-34.8 [facility] Comment on above: Performed By: #### C P, CDP #### [address] [address] Duster Tender: Guillaume Roman MD MCV (RBC) [Entitic vol] 96.0 fL Normal 82.6-102.9 [facility] Comment on above: Performed By: #### C P, CDP #### [address] [address] Duster Tender: Guillaume Roman MD Monocytes (Bld) [#/Vol] 0.91 10*3/uL Normal 0.10-1.20 [facility] Comment on above: Performed By: #### C P, CDP #### [address] [address] Duster Tender: Guillaume Roman MD Monocytes/100 WBC (Bld) 14 % High 3-12 [facility] Comment on above: Performed By: #### C P, CDP #### [address] [address] Duster Tender: Guillaume Roman MD Neutrophil (Seg) 62 % Normal 36-65 [facility] Comment on above: Performed By: #### C P, CDP #### [address] [address] Duster Tender: Guillaume Roman MD NRBC Automated 0.0 per 100 WBC Normal 0.0 [facility] Comment on above: Performed By: #### C P, CDP #### [address] [address] Duster Tender: Guillaume Roman MD Platelet mean volume (Bld) [Entitic vol] 8.6 fL Normal 8.1-13.5 [facility] Comment on above: Performed By: #### C P, CDP #### [address] [address] Duster Tender: Guillaume Roman MD Platelets (Bld) [#/Vol] 413 10*3/uL Normal 138-453 [facility] Comment on above: Performed By: #### C P, CDP #### [address] [address] Duster Tender: Guillaume Roman MD RBC (Bld) [#/Vol] 3.29 10*6/uL Low 3.95-5.11 [facility] Comment on above: Performed By: #### C P, CDP #### [address] [address] Duster Tender: Guillaume Roman MD RBC morphology finding Nom (Bld) ANISOCYTOSIS PRESENT Normal [facility] Comment on above: Performed By: #### C P, CDP #### [address] [address] Duster Tender: Guillaume Roman MD WBC (Bld) [#/Vol] 6.8 10*3/uL Normal 3.5-11.3 [facility] Comment on above: Performed By: #### C P, CDP #### [address] [address] Duster Tender: Guillaume Roman MD Comp Metabolic Profon 2023 Albumin [Mass/Vol] 3.6 g/dL Normal 3.5-5.2 [facility] Comment on above: Performed By: #### C P, CDP #### [address] [address] Duster Tender: Guillaume Roman MD Albumin/Glob Ratio 2.0 Normal 1.0-2.5 [facility] Comment on above: Performed By: #### C P, CDP #### [address] [address] Duster Tender: Guillaume Roman MD Alkaline Phos 93 U/L Normal 35-104 [facility] Comment on above: Performed By: #### C P, CDP #### [address] [address] Duster Tender: Guillaume Roman MD ALT [Catalytic activity/Vol] 14 U/L Normal 10-35 [facility] Comment on above: Performed By: #### C P, CDP #### [facility] [address] [place] [address] Duster Tender: Guillaume Roman MD Anion gap [Moles/Vol] 10 mmol/L Normal 9-16 [facility] Comment on above: Performed By: #### C P, CDP #### [address] [address] Duster Tender: Guillaume Roman MD AST [Catalytic activity/Vol] 33 U/L Normal 10-35 [facility] Comment on above: Performed By: #### C P, CDP #### [address] [address] Duster Tender: Guillaume Roman MD Bilirubin [Mass/Vol] 0.3 mg/dL Normal 0.00-1.20 [facility] Comment on above: Performed By: #### C P, CDP #### [address] [address] Duster Tender: Guillaume Roman MD Calcium [Mass/Vol] 8.8 mg/dL Normal 8.6-10.4 [facility] Comment on above: Performed By: #### C P, CDP #### [address] [address] Duster Tender: Guillaume Roman MD Chloride [Moles/Vol] 109 mmol/L High 98-107 [facility] Comment on above: Performed By: #### C P, CDP #### [address] [address] Duster Tender: Guillaume Roman MD CO2 [Moles/Vol] 19 mmol/L Low 20-31 [facility] Comment on above: Performed By: #### C P, CDP #### [address] [address] Duster Tender: Guillaume Roman MD Creatinine [Mass/Vol] 1.0 mg/dL High 0.50-0.90 [facility] Comment on above: Performed By: #### C P, CDP #### [address] [address] Duster Tender: Guillaume Roman MD GFR/1.73 sq M.predicted among non-blacks MDRD (S/P/Bld) [Vol rate/Area] 59 mL/min/{1.73_m2} Low >60 [facility] Comment on above: Result Comment: These [...] Performed By: #### C P, CDP #### [address] [address] Duster Tender: Guillaume Roman MD Glucose [Mass/Vol] 97 mg/dL Normal 74-99 [facility] Comment on above: Performed By: #### C P, CDP #### [address] [address] Duster Tender: Guillaume Roman MD Potassium [Moles/Vol] 4.3 mmol/L Normal 3.7-5.3 [facility] Comment on above: Result Comment: SPEC IMEN SLIGHTLY HEMOLYZED, RESULTS MAY BE ADVERSELY AFFECTED. Performed By: #### C P, CDP #### [address] [address] Duster Tender: Guillaume Roman MD Protein [Mass/Vol] 5.4 g/dL Low 6.6-8.7 [facility] Comment on above: Performed By: #### C P, CDP #### [address] [id number] Duster Tender: Guillaume Roman MD Sodium [Moles/Vol] 138 mmol/L Normal 136-145 [facility] Comment on above: Performed By: #### C P, CDP #### [facility] [address] [place], [place] [address] Duster Tender: Guillaume Roman MD Urea nitrogen [Mass/Vol] 11 mg/dL Normal 8-23 [facility] Comment on above: Performed By: #### C P, CDP #### [facility] [address] [place] [address] Duster Tender: Guillaume Roman MD Comprehensive Metabolic Pane [facility] 11-11-2023 Albumin [Mass/Vol] 3.6 g/dL 3.5 - 5.2 g/dL [facility] Albumin/Globulin [Mass ratio] 2.0 {ratio} 1.0 - 2.5 [facility] ALP [Catalytic activity/Vol] 93 U/L 35 - 104 U/L [facility] ALT [Catalytic activity/Vol] 14 U/L 10 - 35 U/L [facility] Anion gap [Moles/Vol] 10 mmol/L 9 - 16 mmol/L [facility] AST [Catalytic activity/Vol] 33 U/L 10 - 35 U/L [facility] Bilirubin [Mass/Vol] 0.3 mg/dL 0.00 - 1.20 mg/dL [facility] Calcium [Mass/Vol] 8.8 mg/dL 8.6 - 10. 4 mg/dL [facility] Chloride [Moles/Vol] 109 mmol/L High 98 - 10 7 mmol/L [facility] CO2 [Moles/Vol] 19 mmol/L Low 20 - 31 mmol/L [facility] Creatinine [Mass/Vol] 1.0 mg/dL High 0.50 - 0.90 mg/dL [facility] Est, Glom Filt Rate 59 Low - [facility] Comment on above: These results are [...] [Mass/Vol] 97 mg/dL 74 - 99 mg/dL [facility] Interpretation and review of laboratory results Abnormal [facility] Potassium [Moles/Vol] 4.3 mmol/L 3.7 - 5.3 mmol/L [facility] Comment on above: SPECIMEN SLIGHTLY HE MOLYZED, RESULTS MAY BE ADVERSELY AFFECTED. Protein [Mass/Vol] 5.4 g/dL Low 6.6 - 8.7 g/dL [facility] Sodium [Moles/Vol] 138 mmol/L 136 - 145 mmol/L [facility] Urea nitrogen [Mass/Vol] 11 mg/dL 8 - 23 mg/dL [employer] Consultation Noteon 11-11-19 24 Consultation Note [id number]#1.00T IFF Normal [facility] EKG 12 LeadOrdered By: Butch Nascimento on 11-11-2023 Atrial Rate 62 BPM [employer] Work Phone: P [place] 40 degrees [employer] Work Phone: P-R Interval 168 ms [employer] Work Phone: Q-T Interval 404 ms [employer] Work Phone: QTc Calculation (Bazett) 410 ms [employer] Work Phone: R [place] 6 degrees [employer] Work Phone: T [place] 20 degrees [employer] Work Phone: Ventricular Rate 62 BPM [employer] Work Phone: EKG 12 Leadon 11-11-2023 Normal sinus rhythm Cannot rule out Anterior infarct , age undetermined Abnormal ECG No previous ECGs available [facility] STWily Walter MD / Butch Nascimento MD - 11/11/2023 Normal sinus rhythm Cannot rule out Anterior infarct , age undetermined Abnormal ECG No previous ECGs available [facility] Atrial Rate 65 BPM [facility] P [place] 42 degrees [facility] P-R Interval 172 ms [facility] Q-T Interval 406 ms [facility] [employer] QTc Calculation (Bazett) 422 ms [facility] R [place] 7 degrees [facility] T [place] 19 degrees [facility] Ventricular Rate 65 BPM [facility] [employer] Normal sinus rhythm Normal ECG When compared with ECG of 10-NOV-2023 04:31, No significant change was found [facility] STWily Walter MD / Butch Nascimento MD - 11/11/2023 Normal sinus rhythm Normal ECG When compared with ECG of 10-NOV-2023 04:31, No significant change was found [facility] [employer] Glucose,Whole Bloodon 2023 Glucose [Mass/Vol] 120 mg/dL High 65-105 [facility] [facility] Glucose [Mass/Vol] 92 mg/dL Normal 65-105 [facility] Glucose [Mass/Vol] 83 mg/dL Normal 65-105 [facility] Glucose [Mass/Vol] 83 mg/dL Normal 65-105 [facility] Glucose [Mass/Vol] 88 mg/dL Normal 65-105 [facility] No Panel InformationOrdered By: Butch Nascimento on 11-11-2023 QRS Duration 86 ms [employer] [facility] [employer] Work Phone: [employer] [facility] [employer] Work Phone: POC Glucose Fingerstickon Glucose [Mass/Vol] 120 mg/dL High 65 - 105 mg/dL [facility] [employer] Interpretation and review of laboratory results Abnormal [facility] [employer] Glucose [Mass/Vol] 92 mg/dL 65 - 105 mg/dL [facility] Glucose [Mass/Vol] 83 mg/dL 65 - 105 mg/dL [facility] Glucose [Mass/Vol] 83 mg/dL 65 - 105 mg/dL [facility] Glucose [Mass/Vol] 88 mg/dL 65 - 105 mg/dL [facility] RAD - MRI Reporton RAD - MRI Report [id number] Normal [facility] Surgical Pathology Reporton 11-11-2023 Surgical Pathology Report (NOTE) [id number] [employer] CONSULTING PATHOLOGISTS [facility] ANATOMIC PATHOLOGY [address] [place] [address]. [place], [place] [address] SURGICAL PATHOLOGY CONSULTATION Patient Name: ALEX [facility] Rec: [id number] Path Number: [id number] Collected: 11/11/2023 Received: 11/14/2023 Reported: 11/17/2023 08:30 [...] JAYASHREE AVILEZ, [address] WAS SENT TO [facility] FOR PD-L1 EXPRESSION TESTING. THE RESULTS ARE FOLLOWS: PD-L1 EXPRESSION: POSITIVE TUMOR PROPORTION SCORE (TPS): 15% COMBINED POSITIVE SCORE (CPS): 17 PLEASE SEE [facility] COM[facility]TE [facility] ([id number]) FOR DETAILS. Candy Banegas Clinical Information Pre-Op [...] squamous carcinoma. Control reacts as expected. Normal [facility] BLOOD BANK SPECIMENon 2023 [facility] CBC with Auto Differentialon 11-10-2023 Basophils (Bld) [#/Vol] [facility] Basophils/100 WBC (Bld) 0 % 0 - 2 % [facility] Eosinophils (Bld) [#/Vol] 0.03 10*3/uL [facility] Eosinophils/100 WBC (Bld) 0 % Low 1 - 4 % [facility] Erythrocyte distribution width (RBC) [Ratio] 15.9 % High 11.8 - 14.4 % [facility] Hematocrit (Bld) [Volume fraction] 29.5 % Low 36.3 - 47.1 % [facility] Hemoglobin (Bld) [Mass/Vol] 8.7 g/dL Low 11.9 - 15.1 g/dL [facility] Immature granulocytes (Bld) [#/Vol] 0.06 10*3/uL [facility] Immature granulocytes/100 WBC (Bld) 1 % High 0 [facility] Interpretation and review of laboratory results Abnormal [facility] Lymphocytes/100 WBC (Bld) 10 % Low 24 - 43 % [facility] Lymphocytes/100 WBC (Bld) 0.86 % Low [facility] MCH (RBC) [Entitic mass] 26.9 pg 25.2 - 33.5 pg [facility] MCHC (RBC) [Mass/Vol] 29.5 g/dL 28.4 - 34.8 g/dL [facility] MCV (RBC) [Entitic vol] 91.3 fL 82.6 - 102.9 fL [facility] Monocytes/100 WBC (Bld) 9 % 3 - 12 % [facility] Monocytes/100 WBC (Bld) 0.72 % [facility] Neutrophils/100 WBC (Bld) 80 % High 36 - 65 % [facility] Nucleated RBC/100 WBC (Bld) [Ratio] 0.0 % 0.0 per 100 WBC [facility] Platelet mean volume (Bld) [Entitic vol] 8.5 fL 8.1 - 13.5 fL [facility] Platelets (Bld) [#/Vol] 389 10*3/uL [facility] RBC (Bld) [#/Vol] 3.23 10*6/uL Low 3.95 - 5.1 1 m/uL [facility] RBC (Bld) [#/Vol] ANISOCYTOSIS PRESENT [facility] Segmented neutrophils/100 WBC (Bld) 6.82 % [facility] WBC other (Bld) [#/Vol] 8.5 [facility] CBC with Diffon 11-10-2023 Abs. Basophil <0.03 Normal 0.00-0.20 [facility] Comment on above: Performed By: #### C DP GLYHGB #### [employer] [facility] [place] [address] Duster Tender: Guillaume Roman MD Abs.Imm.Granulocyte 0.06 k/uL Normal 0.00-0.30 [facility] Comment on above: Performed By: #### C DP GLYHGB #### [address] [address] Duster Tender: Guillaume Roman MD Abs.Neutrophil (Seg) 6.82 k/uL Normal 1.50-8.10 [facility] Comment on above: Performed By: #### C DP, GLYHGB #### [address] [address] Duster Tender: Guillaume Roman MD Basophils/100 WBC (Bld) 0 % Normal 0-2 [facility] Comment on above: Performed By: #### C DP, GLYHGB #### [address] [address] Duster Tender: Guillaume Roman MD Eosinophils (Bld) [#/Vol] 0.03 10*3/uL Normal 0.00-0.44 [facility] Comment on above: Performed By: #### C DP, GLYHGB #### [address] [address] Duster Tender: Guillaume Roman MD Eosinophils/100 WBC (Bld) 0 % Low 1-4 [facility] Comment on above: Performed By: #### C DP, GLYHGB #### [address] [address] Duster Tender: Guillaume Roman MD Erythrocyte distribution width (RBC) [Ratio] 15.9 % High 11.8-14.4 [facility] Comment on above: Performed By: #### C DP, GLYHGB #### [address] [address] Duster Tender: Guillaume Roman MD Hematocrit (Bld) [Volume fraction] 29.5 % Low 36.3-47.1 [facility] Comment on above: Performed By: #### C DP, GLYHGB #### [facility] [address] [place] [address] [place] [address] Duster Tender: Guillaume Roman MD Hemoglobin (Bld) [Mass/Vol] 8.7 g/dL Low 11.9-15.1 [facility] Comment on above: Performed By: #### C DP, GLYHGB #### [address] [address] Duster Tender: Guillaume Roman MD Immature granulocytes/100 WBC (Bld) 1 % High 0 [facility] Comment on above: Performed By: #### C DP, GLYHGB #### [address] [address] Duster Tender: Guillaume Roman MD Lymphocytes (Bld) [#/Vol] 0.86 10*3/uL Low 1.10-3.70 [facility] Comment on above: Performed By: #### C DP, GLYHGB #### [address] [address] Duster Tender: Guillaume Roman MD Lymphocytes/100 WBC (Bld) 10 % Low 24-43 [facility] Comment on above: Performed By: #### C DP, GLYHGB #### [address] [address] Duster Tender: Guillaume Roman MD MCH (RBC) [Entitic mass] 26.9 pg Normal 25.2-33.5 [facility] Comment on above: Performed By: #### C DP, GLYHGB #### [facility] [address] [place] [address] Duster Tender: Guillaume Roman MD MCHC (RBC) [Mass/Vol] 29.5 g/dL Normal 28.4-34.8 [facility] Comment on above: Performed By: #### C DP, GLYHGB #### [address] [address] Duster Tender: Guillaume Roman MD MCV (RBC) [Entitic vol] 91.3 fL Normal 82.6-102.9 [facility] Comment on above: Performed By: #### C DP, GLYHGB #### [address] [address] Duster Tender: Guillaume Roman MD Monocytes (Bld) [#/Vol] 0.72 10*3/uL Normal 0.10-1.20 [facility] Comment on above: Performed By: #### C DP, GLYHGB #### [address] [address] Duster Tender: Guillaume Roman MD Monocytes/100 WBC (Bld) 9 % Normal 3-12 [facility] Comment on above: Performed By: #### C DP, GLYHGB #### [address] [address] Duster Tender: Guillaume Roman MD Neutrophil (Seg) 80 % High 36-65 [facility] Comment on above: Performed By: #### C DP, GLYHGB #### [address] [address] Duster Tender: Guillaume Roman MD NRBC Automated 0.0 per 100 WBC Normal 0.0 [facility] Comment on above: Performed By: #### C DP, GLYHGB #### [address] [address] Duster Tender: Guillaume Roman MD Platelet mean volume (Bld) [Entitic vol] 8.5 fL Normal 8.1-13.5 [facility] Comment on above: Performed By: #### C DP, GLYHGB #### [address] [address] Duster Tender: Guillaume Roman MD Platelets (Bld) [#/Vol] 389 10*3/uL Normal 138-453 [facility] Comment on above: Performed By: #### C DP, GLYHGB #### [facility] [address] [place] [address] Duster Tender: Guillaume Roman MD RBC (Bld) [#/Vol] 3.23 10*6/uL Low 3.95-5.11 [facility] Comment on above: Performed By: #### C DP, GLYHGB #### [facility] [address] [place] [address] Duster Tender: Guillaume Roman MD RBC morphology finding Nom (Bld) ANISOCYTOSIS PRESENT Normal [facility] Comment on above: Performed By: #### C DP, GLYHGB #### [facility] [address] [place] [address] Duster Tender: Guillaume Roman MD WBC (Bld) [#/Vol] 8.5 10*3/uL Normal 3.5-11.3 [facility] Comment on above: Performed By: #### C DP, GLYHGB #### [facility] [address] [place] [address] Duster Tender: Guillaume Roman MD CT HEAD WO CONTRASTon [...] True Mccall MD 11/10/23 Final result Normal [facility] CT Head WO contraston 2023 No acute intracrania l abnormality. [facility] EXAMINATION: CT OF THE HEAD [...] of the visualized skull or soft tissues. [facility] True Mccall MD - 11/10/2023 [...] soft tissues. IMPRESSION: No acute intracranial abnormality. [facility] Radiology Study observation (narrative) [facility] CT Head WO contrastOrdered B y: True Mccall on 11-10-2023 [facility] Work Phone: Comp Metabolic Pr/rfx MGon 0 11-10-2023 Albumin [Mass/Vol] 3.5 g/dL Normal 3.5-5.2 [facility] Comment on above: Performed By: #### R EJEC, CMPX, LIPR ####[facility] [address] [place], [place] [phone] Director: Guillaume Roman MD Albumin/Glob Ratio 2.0 Normal 1.0-2.5 [facility] Comment on above: Performed By: #### R EJEC, CMPX, LIPR ####[facility] [address] [place], [place] [phone] Director: Guillaume Roman MD Alkaline Phos 85 U/L Normal 35-104 [facility] Comment on above: Performed By: #### R EJEC, CMPX, LIPR ####[facility] [address] [place], [place] [phone] Director: Guillaume Roman MD ALT [Catalytic activity/Vol] 9 U/L Low 10-35 [facility] Comment on above: Performed By: #### R EJEC, CMPX, LIPR ####[employer] [address] [place], [place] [phone] Director: Guillaume Roman MD Anion gap [Moles/Vol] 12 mmol/L Normal 9-16 [facility] Comment on above: Performed By: #### R EJEC, CMPX, LIPR ####[facility] [address] [place], [place] [phone] Director: Guillaume Roman MD AST [Catalytic activity/Vol] 20 U/L Normal 10-35 [facility] Comment on above: Performed By: #### R EJEC, CMPX, LIPR ####[facility] [address] [place], [place] [phone] Director: Guillaume Roman MD Bilirubin [Mass/Vol] 0.2 mg/dL Normal 0.00-1.20 [facility] Comment on above: Performed By: #### R EJEC, CMPX, LIPR ####[facility] [address] [place], [place] [address])[phone] Director: Guillaume Roman MD Calcium [Mass/Vol] 8.4 mg/dL Low 8.6-10.4 [facility] Comment on above: Performed By: #### R EJEC, CMPX, LIPR ####[facility] [address] [place], [place] [phone] Director: Guillaume Roman MD Chloride [Moles/Vol] 108 mmol/L High 98-107 [facility] Comment on above: Performed By: #### R EJEC, CMPX, LIPR ####[facility] [address] [place], [place] [phone] Director: Guillaume Roman MD CO2 [Moles/Vol] 17 mmol/L Low 20-31 [facility] Comment on above: Performed By: #### R EJEC, CMPX, LIPR ####[facility] [address] [place], [place] [phone] Director: Guillaume Roman MD Creatinine [Mass/Vol] 0.9 mg/dL Normal 0.50-0.90 [facility] Comment on above: Performed By: #### R EJEC, CMPX, LIPR ####[facility] [address] [place], [place] [phone] Director: Guillaume Roman MD GFR/1.73 sq M.predicted among non-blacks MDRD (S/P/Bld) [Vol rate/Area] 66 mL/min/{1.73_m2} Normal >60 [facility] Comment on above: Result Comment: These [...] Performed By: #### R FREDO CMPX, LIPR ####[facility] [address] [place], [place] [address])[phone] Director: Guillaume Roman MD Glucose [Mass/Vol] 99 mg/dL Normal 74-99 [facility] Comment on above: Performed By: #### R KELLEEC, CMPX, LIPR ####[facility] [address] [place], [place] [address])[phone] Director: Guillaume Roman MD Potassium [Moles/Vol] 4.5 mmol/L Normal 3.7-5.3 [facility] Comment on above: Result Comment: SPEC IMEN SLIGHTLY HEMOLYZED, RESULTS MAY BE ADVERSELY AFFECTED. Performed By: #### R EJECALIZAX, LIPR ####[facility] [address] [place] [address])[phone] Director: Guillaume Roman MD Protein [Mass/Vol] 5.0 g/dL Low 6.6-8.7 [facility] Comment on above: Performed By: #### R EJEC, CMPX, LIPR ####[facility] [address] [place], [place] [address])[phone] Director: Guillaume Roman MD Sodium [Moles/Vol] 137 mmol/L Normal 136-145 [facility] Comment on above: Performed By: #### R EJEC, CMPX, LIPR ####[facility] [address] [place] [address] Lab Director: Guillaume Roman MD Urea nitrogen [Mass/Vol] 10 mg/dL Normal 8-23 [facility] Comment on above: Performed By: #### R EJEC, CMPX, LIPR ####[facility] [address] [place] [address] lab Director: Guillaume Roman MD Comprehensive Metabolic Pane l w/ Reflex to MGon 11-10-2023 Albumin [Mass/Vol] 3.5 g/dL 3.5 - 5.2 g/dL [facility] Albumin/Globulin [Mass ratio] 2.0 {ratio} 1.0 - 2.5 [facility] ALP [Catalytic activity/Vol] 85 U/L 35 - 104 U/L [facility] ALT [Catalytic activity/Vol] 9 U/L Low 10 - 35 U/L [facility] Anion gap [Moles/Vol] 12 mmol/L 9 - 16 mmol/L [facility] AST [Catalytic activity/Vol] 20 U/L 10 - 35 U/L [facility] Bilirubin [Mass/Vol] 0.2 mg/dL 0.00 - 1.20 mg/dL [facility] Calcium [Mass/Vol] 8.4 mg/dL Low 8.6 - 10. 4 mg/dL [facility] Chloride [Moles/Vol] 108 mmol/L High 98 - 10 7 mmol/L [facility] CO2 [Moles/Vol] 17 mmol/L Low 20 - 31 mmol/L [facility] Creatinine [Mass/Vol] 0.9 mg/dL 0.50 - 0.90 mg/dL [facility] Est, Glom Filt Rate 66 - PINF [facility] Comment on above: These results are [...] [Mass/Vol] 99 mg/dL 74 - 99 mg/dL [facility] Interpretation and review of laboratory results Abnormal [facility] Potassium [Moles/Vol] 4.5 mmol/L 3.7 - 5.3 mmol/L [facility] Comment on above: SPECIMEN SLIGHTLY HE MOLYZED, RESULTS MAY BE ADVERSELY AFFECTED. Protein [Mass/Vol] 5.0 g/dL Low 6.6 - 8.7 g/dL [facility] Sodium [Moles/Vol] 137 mmol/L 136 - 145 mmol/L [facility] Urea nitrogen [Mass/Vol] 10 mg/dL 8 - 23 mg/dL [facility] Glucose,Whole Bloodon 2023 Glucose [Mass/Vol] 104 mg/dL Normal 65-105 [facility] Glucose [Mass/Vol] 86 mg/dL Normal 65-105 [facility] Glucose [Mass/Vol] 89 mg/dL Normal 65-105 [facility] Glucose [Mass/Vol] 91 mg/dL Normal 65-105 [facility] Hemoglobin A1Con 11-10-2023 Average glucose Estimated from glycated hemoglobin (Bld) [Mass/Vol] 82 mg/dL [facility] Comment on above: The ADA and AACC rec ommend providing the estimated average glucose result to permit better patient understanding of their HBA1c result. HbA1c (Bld) [Mass fraction] 4.5 % 4.0 - 6.0 % [facility] Glucose [Mass/Vol] 82 mg/dL Normal [facility] Comment on above: Result Comment: The ADA and AACC recommend providing the estimated average glucose result to permit better patient understanding of their HBA1c result. Performed By: #### C DP, GLYHGB #### [facility] [address] [place] [address] Duster Tender: Guillaume Roman MD HbA1c (Bld) [Mass fraction] 4.5 % Normal 4.0-6.0 [facility] Comment on above: Performed By: #### C DP, GLYHGB #### [employer] [address] [place], [place] [phone] Duster Tender: Guillaume Roman MD Lipid Panelon 11-10-2023 Cholesterol [Mass/Vol] 79 mg/dL 0 - 199 mg/dL [facility] [employer] Comment on above: Cholesterol Guidelines: <200 Desirable 200-240 Borderline >240 Undesirable Cholesterol in HDL [Mass/Vol] 55 mg/dL 40 - PINF mg/dL [facility] [employer] Comment on above: HDL Guidelines: <40 Undesirable 40-59 Borderline >59 Desirable Cholesterol in LDL [Mass/Vol] 11 mg/dL 0 - 100 mg/dL [facility] [employer] Comment on above: LDL Guidelines: <100 Desirable 100-129 Near to/above Desirable 130-159 Borderline >159 Undesirable Direct (measured) LDL and calculated LDL are not interchangeable tests. Cholesterol in VLDL [Mass/Vol] 13 mg/dL [facility] [employer] Cholesterol.total/Cho lesterol in HDL [Mass ratio] 1.0 {ratio} [facility] [employer] Triglyceride [Mass/Vol] 66 mg/dL NINF - 150 mg/dL [facility] [employer] Comment on above: Triglyceride Guidelines: <150 Desirable 150-199 Borderline 200-499 High >499 Very high Based on AHA Guidelines for fasting triglyceride, April 2012. Lipid Profileon 11-10-2023 Cholesterol [Mass/Vol] 79 mg/dL Normal 0-199 [facility] Comment on above: Result Comment: Cholesterol Guidelines: <200 Desirable 200-240 Borderline >240 Undesirable Performed By: #### R EJEC, CMPX, LIPR ####[employer] [address] [place] [address] Lab Director: Guillaume Roman MD Cholesterol in HDL [Mass/Vol] 55 mg/dL Normal >40 [facility] Comment on above: Result Comment: HDL Guidelines: <40 Undesirable 40-59 Borderline >59 Desirable Performed By: #### R EJEC, CMPX, LIPR ####[employer] [address] [place], [place] [phone] Lab Director: Guillaume Roman MD Cholesterol in LDL [Mass/Vol] 11 mg/dL Normal 0-100 [facility] Comment on above: Result Comment: LDL Guidelines: <100 Desirable 100-129 Near to/above Desirable 130-159 Borderline >159 Undesirable Direct (measured) LDL and calculated LDL are not interchangeable tests. Performed By: #### R EJEC, CMPX, LIPR ####[employer] [address] [place] [address] Lab Director: Guillaume Roman MD Cholesterol in VLDL [Mass/Vol] 13 mg/dL Normal [facility] Comment on above: Performed By: #### R EJEC, CMPX, LIPR ####[facility] [address] [place], [place] [phone] Director: Guillaume Roman MD Cholesterol.total/Cho lesterol in HDL [Mass ratio] 1.0 {ratio} Normal [facility] Comment on above: Performed By: #### R EJEC, CMPX, LIPR ####[facility] [address] [place] [address] Lab Director: Guillaume Roman MD Triglyceride [Mass/Vol] 66 mg/dL Normal <150 [facility] Comment on above: Result Comment: Triglyceride Guidelines: <150 Desirable 150-199 Borderline 200-499 High >499 Very high Based on AHA Guidelines for fasting triglyceride, April 2012. Performed By: #### R EJEC, CMPX, LIPR ####[facility] [address] [place], [place] [phone] Director: Guillaume Roman MD MR Pelvis WO [...] left greater than right, is likely metastatic. [facility] EXAMINATION: MRI OF THE PELVIS [...] osseous structures are unremarkable. Minimal free fluid. [facility] Frank Deleon MD - 11/10/2023 [...] greater than right, is likely metastatic. [facility] Radiology Study observation (narrative) [facility] MR Pelvis WO and W contrast IVOrdered By: Frank Deleon on 11-10-2023 [facility] Work Phone: MRI PELVIS W WO [...] Frank Deleon MD 11/10/23 Final result Normal [facility] No Panel Informationon 11-09 [facility] [employer] POC Glucose Fingerstickon Glucose [Mass/Vol] 104 mg/dL 65 - 105 mg/dL [facility] [employer] [facility] Glucose [Mass/Vol] 86 mg/dL 65 - 105 mg/dL [facility] Glucose [Mass/Vol] 89 mg/dL 65 - 105 mg/dL [facility] Glucose [Mass/Vol] 91 mg/dL 65 - 105 mg/dL [facility] [employer] [facility] [employer] PREVIOUS SPECIMENon 11-10-19 24 [facility] [employer] Specimen Rejectionon 024 Reason for rejection Unable to perform testing: Specimen clotted. Normal [facility] Comment on above: Performed By: #### R EJEC, CMPX, LIPR ####[facility] [address] [place] [address] Lab Director: Guillaume Roman MD Source of sample .BLOOD Normal [facility] Comment on above: Performed By: #### R EJEC, CMPX, LIPR ####[facility] [address] [place], [place] [phone] Lab Director: Guillaume Roman MD Test ordered CDP, GLYHGB [facility] Comment on above: Performed By: #### R EJEC, CMPX, LIPR ####[facility] [address] [place], [place] [id number] lab Director: Guillaume Roman MD TYPE AND SCREENon 11-10-2023 ABO and Rh group Nom (Bld) Blood group O Rh(D) positive [facility] Arm Band Number BE [id number] [facility] Blood Bank Sample Expiration 11/13/2023,2359 [facility] Blood group antibodies identified Nom Negative [facility] Type + Screenon 11-10-2023 Type + Screen Sample Expiration 11/13/2023,2359 Arm Band Number BE [id number] ABO/Rh(D) O POSITIVE Antibody Screen NEGATIVE Normal [facility] Comment on above: Performed By: #### T YS #### [employer] [address] [place] [address] Duster Tender: MD Rene Barros 11-09-2023 L Specimen: [id number] Received: 11/10/23 Status: TESS [place] Num: [id number] Spec Type: Surgical Subm Dr: Kobe Crespo Tissues: A Endometrium - Curettings (EMC) Procedures: HE/6, Gross/Micro L4 Age/ Patient Sex Location Account Attending Physician Candis Johnson 68/F LABELL [id number] Kobe Crespo SPEC NUM: [id number] RECD: 11/10/23 STATUS: TESS [place] NUM: [id number] NOY: 11/09/[address]: Kobe Crespo ENTERED: 11/10/[address] [facility] [address]: Angel Reynolds SPEC TYPE: Surgical [...] uterus didelphys, vaginal stenosis, cervical stenosis Specimen: [id number] Received: 11/10/23 Status: TESS Berry Num: [id number] Spec Type: Surgical Subm Dr: Kobe Crespo Tissues: A Endometrium - Curettings (EMC) Procedures: GABRIEL/Noreen, Gross/Micro L4 Patient: Candis Johnson [id number] (Continued) Specimen: [id number] Received: 11/10/23 (Continued) Signed (signature on file) Jamarcus Chao MD 11/11/23 1448 Specimen: [id number] Received: 11/10/23 Status: TESS [place] Num: [id number] Spec Type: Surgical Subm Dr: Kobe Crespo Tissues: A Endometrium - Curettings (EMC) Procedures: , Gross/Micro L4 Patient: ChristianpanchoFatimah franklinsusan Cuellar [id number] (Continued) Specimen: [id number] Received: 11/10/23 (Continued) CPT Codes 19703 Specimen: [id number] Received: 11/10/23 Status: TESS [place] Num: [id number] Spec Type: Surgical Subm Dr: Kobe Crespo Tissues: A Endometrium - Curettings (EMC) Procedures: GABRIEL/Noreen, Ginna/Ashley L4 Patient: Candis Johnson [id number] (Continued) Signed (signature on file) Jamarcus Chao MD 11/11/23 1448 Normal [facility] Lab Reportson 11-08-2023 Lab Reports [id number] IFF Normal [facility] Lab Reportson 11-07-2023 Lab Reports [id number] IFF Normal [facility] Consent for Procedure/Surger yon 10-14-2023 Consent for Procedure/Surgery [id number]#1.00T IFF Normal [facility] Office Visiton 10-06-2023 Follow-up visit [id number] Kelby Johnson 1955 F Date Provider Department Center 10/06/2023 REBECCA VASQUEZ Family History Problem Relation Age of Onset Coronary artery disease Mother Cancer Father Diabetes Father Family Status - Relation Status Age at Mother Father Level of Service:66109 CT OFFICE/OUTPATIENT ESTABLISHED MOD MDM 30 MIN Normal [facility] Office Visiton 09-23-2023 Follow-up visit [id number] Ayala 1955 F Date Provider Department Center 09/23/2023 [id number] CHI Family History Problem Relation Age of Onset Coronary artery disease Mother Cancer Father Diabetes Father Family Status - Relation Status Age at Mother Father Level of Service:40271 CT OFFICE/OUTPATIENT ESTABLISHED LOW MDM 20 MIN Reason for Visit and Comments: Follow-up [745441] - Concerns: Not much states some swelling in legs and some back back, chest pain seems to be getting better Normal [facility] Office Visiton 08-26-2023 Follow-up visit [id number] Kelby Johnson 1955 F Date Provider Department Center 08/26/2023 384GUERDA ROLAND Family History Problem Relation Age of Onset Coronary artery disease Mother Cancer Father Diabetes Father Family Status - Relation Status Age at Mother Father Level of Service:85253 CT OFFICE/OUTPATIENT NEW MODERATE MDM 45 MINUTES Normal [facility] Consent for Procedure/Surger yon 08-24-2023 Consent for Procedure/Surgery [id number]#1.00T IFF Normal [facility] Consent for Procedure/Surger yon 08-09-2023 Consent for Procedure/Surgery [id number]#1.00T IFF Normal [facility] Urine Cytology ([facility])on 0 08-09-2023 Urine Cytology Diagnosis Info Invalid Interpretation Code [facility] Comment on above: Result Comment: A:Ur ine,Urine:Voided Interpretation - MicroScopic Description - Adequacy - Gross Description Site ID:A color Dark Yellow fixative Alcohol Specimen designated Urine received in alcohol preservative and labeled with the patient?s name, consists of 110ml slightly cloudy dark yellow fluid. Electronically signed by : on: 08/09/2023 11:46:02 Performed By: #### 1 [id number] ####[facility] [address] [place] [address] Physician Referralon 024 Physician Referral [id number]#1.00 TIFF Normal [facility] Screenson 08-04-2023 Screens [id number]#1.00TI FF Normal [facility] Urine Cytology ([facility])on 0 08-04-2023 UC Method of Extraction Voided Normal [facility] Comment on above: Performed By: #### 1 [id number] ####[facility] [address] [place] [address] UC Number of Jars 1 Invalid Interpretation Code [facility] Comment on above: Performed By: #### 1 [id number] ####[facility] [address] [place] [address] UC Specimen Urine Normal [facility] Comment on above: Performed By: #### 1 [id number] ####[facility] [address] [place] [address] Type of Service Technical Only Normal [facility] Comment on above: Performed By: #### 1 [id number] ####[facility] [address] [place] [address] Ambulatory Visit Summaryon 0 08-03-2023 Ambulatory Visit [...] the caus (more content not included)... Normal [facility] Home Recordson 08-03 [facility] [id number]#1.00T IFF Normal [facility] Patient Educationon 08-03-19 Patient Education [...] including vitamins, herbs, eye drops, creams, and nkmu-oly-dtmdmhr medicines. ? Any problems you or family [...] care provider tells you to. ? Taking iyxg-lwf-ngormau medicines, vitamins, herbs, and supplements. General instructions [...] monitor (more content not included)... 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 *possible abnormality of urinary system. Ordered due to rectal bleeding. Pt is a new pt. Never before seen in our office. Pt is hard of hearing she can read lips and she has an nurses aid from her home ([facility]) CT abdomen pelvis wo/w con done @ [facility] on 06/06/23 She tried giving [...] age Assessment/Plan 68 yo female resident of [facility] here for new patient evaluation [...] cysto, if patient unable to submit from [facility] prior 3. Former smoker (Z87.891: Personal history of nicotine dependence) Smoked for a very little amount of time. 4. Aspirin long-term use (Z79.82: director long term care (curre (more content not included)... Normal [facility] Comment on above: Result Comment: [...] RIVKA FRAZIER Date: 2022-07-05 15:[address] [facility] MG MAMM SCREEN 3D DERRICK CADon 05-14-2022 MG MAMM SCREEN 3D DERRICK CAD Patient: CANDIS JOHNSON Exam Date: 05/14/2022 : 1955 Gender:F Ordering : DR ANDER LANGLEY D.O. Admission #: [id number] Family : Order #: [id number] CLICK HERE TO VIEW EXAM RADIOLOGY REPORT [...] Treatments None Family Cancers None LOCATION: [facility] BREAST COMPOSITION: Almost entirely fatty. [...] MD on 05/14/2022 at 12:49 Normal [facility] BNPon 03-07-2022 Natriuretic peptide B (Bld) [Mass/Vol] 115.0 pg/mL Normal <=900.0 [facility] Comment on above: Performed By: #### B TRAFFIC EXPERT, CMP, HSTROPN #### [facility] [address] [place] [address] Dr. Carl Zuñiga CBC AUTO DIFFon 03-07-2022 BASO # 0.0 103/ul Normal 0.0-0.1 [facility] Comment on above: Performed By: #### B TRAFFIC EXPERT, CMP, HSTROPN #### [facility] [address] [place] [address] Dr. Carl Zuñiga Basophils/100 WBC (Bld) 0.0 % Critically low 0.2-2.0 [facility] Comment on above: Performed By: #### B TRAFFIC EXPERT, CMP, HSTROPN #### [facility] [address] [place] [address] Dr. Carl Zuñiga EO # 0.1 103/ul Normal 0.0-0.7 [facility] Comment on above: Performed By: #### B TRAFFIC EXPERT, CMP, HSTROPN #### [facility] [address] [place] [address] Dr. Carl Zuñiga Eosinophils/100 WBC (Bld) 1.0 % Normal 0.9-7.0 [facility] Comment on above: Performed By: #### B TRAFFIC EXPERT, CMP, HSTROPN #### [facility] [address] [place] [address] Dr. Carl Zuñiga Erythrocyte distribution width (RBC) [Ratio] 13.7 % Normal 11.0-15.0 [facility] Comment on above: Performed By: #### B TRAFFIC EXPERT, CMP, HSTROPN #### [facility] [address] [place] [address] Dr. Carl Zuñiga Hematocrit (Bld) [Volume fraction] 40.8 % Normal 36.0-48.0 [facility] Comment on above: Performed By: #### B TRAFFIC EXPERT, CMP, HSTROPN #### [facility] [address] [place] [address] Dr. Carl Zuñiga Hemoglobin (Bld) [Mass/Vol] 13.1 g/dL Normal 12.0-16.0 [facility] Comment on above: Performed By: #### B TRAFFIC EXPERT, CMP, HSTROPN #### [facility] [address] [place] [address] Dr. Carl Zuñiga IG # 0.02 10e3/ul Normal 0.00-0.03 [facility] Comment on above: Performed By: #### B TRAFFIC EXPERT, CMP, HSTROPN #### [facility] [address] [place] [address] Dr. Carl Zuñiga IG % 0.3 % Normal 0.0-0.5 [facility] Comment on above: Performed By: #### B TRAFFIC EXPERT, CMP, HSTROPN #### [facility] [address] [place] [address] Dr. Carl Zuñiga LYMPH # 0.9 103/ul Critically low 1.2-3.8 [facility] Comment on above: Performed By: #### B TRAFFIC EXPERT, CMP, HSTROPN #### [facility] [address] [place] [address] Dr. Carl Zuñiga Lymphocytes/100 WBC (Bld) 13.9 % Critically low 20.5-60.0 [facility] Comment on above: Performed By: #### B TRAFFIC EXPERT, CMP, HSTROPN #### [facility] [address] [place] [address] Dr. Carl Zuñiga MANUAL DIFF REQ NO Normal [facility] Comment on above: Performed By: #### B TRAFFIC EXPERT, CMP, HSTROPN #### [facility] [address] [place] [address] Dr. Carl Zuñiga MCH (RBC) [Entitic mass] 30.8 pg Normal 26.7-34.0 [facility] Comment on above: Performed By: #### B TRAFFIC EXPERT, CMP, HSTROPN #### [facility] [address] [place] [address] Dr. Carl Zuñiga MCHC (RBC) [Mass/Vol] 32.1 g/dL Normal 29.9-35.2 [facility] Comment on above: Performed By: #### B TRAFFIC EXPERT, CMP, HSTROPN #### [facility] [address] [place] [address] Dr. Carl Zuñiga MCV (RBC) [Entitic vol] 96.0 fL Normal 81.0-99.0 [facility] Comment on above: Performed By: #### B TRAFFIC EXPERT, CMP, HSTROPN #### [facility] [address] [place] [address] Dr. Carl Zuñiga MONO # 0.6 103/ul Normal 0.3-0.8 [facility] Comment on above: Performed By: #### B TRAFFIC EXPERT, CMP, HSTROPN #### [facility] [address] [place] [address] Dr. Carl Zuñiga Monocytes/100 WBC (Bld) 9.2 % Normal 1.7-12.0 [facility] Comment on above: Performed By: #### B TRAFFIC EXPERT, CMP, HSTROPN #### [facility] [address] [place] [address] Dr. Carl Zuñiga NEUT # 5.1 103/ul Normal 1.4-6.5 [facility] Comment on above: Performed By: #### B TRAFFIC EXPERT, CMP, HSTROPN #### [facility] [address] [place] [address] Dr. Carl Zuñiga Neutrophils/100 WBC (Bld) 75.6 % Critically high 43.0-75.0 [facility] Comment on above: Performed By: #### B TRAFFIC EXPERT, CMP, HSTROPN #### [facility] [address] [place] [address] Dr. Carl Zuñiga Platelet mean volume (Bld) [Entitic vol] 8.5 fL Critically low 9.5-13.5 [facility] Comment on above: Performed By: #### B TRAFFIC EXPERT, CMP, HSTROPN #### [facility] [address] [place] [address] Dr. Carl Zuñiga PLT 206 103/ul Normal 150-450 [facility] Comment on above: Performed By: #### B TRAFFIC EXPERT, CMP, HSTROPN #### [facility] [address] [place] [address] Dr. Carl Zuñiga RBC 4.25 106/ul Normal 4.20-5.40 [facility] Comment on above: Performed By: #### B TRAFFIC EXPERT, CMP, HSTROPN #### [facility] [address] [place] [address] Dr. Carl Zuñiga WBC 6.7 103/ul Normal 4.0-11.0 [facility] Comment on above: Performed By: #### B TRAFFIC EXPERT, CMP, HSTROPN #### [facility] [address] [place] [address] Dr. Carl Zuñiga D-DIMERon 03-07-2022 D-DIMER <0.19 Normal <=0.59 [facility] Comment on above: Performed By: #### D DIM #### [facility] [address] [place] [address] Dr. Carl Zuñiga D-DIMER COMMENTS SEE BELOW Normal [facility] Comment on above: Result Comment: Incr [...] hospitalization. Performed By: #### D DIM #### [facility] [address] [place] [address] Dr. Carl Zuñiga PROF 14(COMP METB)on 022 Albumin [Mass/Vol] 3.9 g/dL Normal 3.4-5.0 [facility] Comment on above: Performed By: #### B TRAFFIC EXPERT, CMP, HSTROPN #### [facility] [address] [place] [address] Dr. Carl Zuñiga Albumin/Globulin [Mass ratio] 1.5 {ratio} Normal [facility] Comment on above: Performed By: #### B TRAFFIC EXPERT, CMP, HSTROPN #### [facility] [address] [place] [address] Dr. Carl Zuñiga ALP [Catalytic activity/Vol] 96 U/L Normal 46-116 [facility] Comment on above: Performed By: #### B TRAFFIC EXPERT, CMP, HSTROPN #### [facility] [address] [place] [address] Dr. Carl Zuñiga ALT [Catalytic activity/Vol] 38 U/L Normal 14-59 [facility] Comment on above: Performed By: #### B TRAFFIC EXPERT, CMP, HSTROPN #### [facility] [address] [place] [address] Dr. Carl Zuñiga Anion gap [Moles/Vol] 9.8 mmol/L Normal [facility] Comment on above: Performed By: #### B TRAFFIC EXPERT, CMP, HSTROPN #### [facility] [address] [address] [address] Carl Zuñiga AST [Catalytic activity/Vol] 16 U/L Normal 15-37 [facility] Comment on above: Performed By: #### B TRAFFIC EXPERT, CMP, HSTROPN #### [facility] [address] [address] [address] Carl Zuñiga Bilirubin [Mass/Vol] 0.5 mg/dL Normal 0.2-1.0 [facility] Comment on above: Performed By: #### B TRAFFIC EXPERT, CMP, HSTROPN #### [facility] [address] [place] [address] Dr. Carl Zuñiga Calcium [Mass/Vol] 9.2 mg/dL Normal 8.5-10.[address] [facility] Comment on above: Performed By: #### B TRAFFIC EXPERT, CMP, HSTROPN #### [facility] [address] [place] [address] Dr. Carl Zuñiga Chloride [Moles/Vol] 103 mmol/L Normal 98-107 [facility] Comment on above: Performed By: #### B TRAFFIC EXPERT, CMP, HSTROPN #### [facility] [address] [place] [address] Dr. Carl Zuñiga CO2 [Moles/Vol] 29.1 mmol/L Normal 21.0-32.0 [facility] Comment on above: Performed By: #### B TRAFFIC EXPERT, CMP, HSTROPN #### [facility] [address] [place] [address] Dr. Carl Zuiñga Creatinine [Mass/Vol] 0.92 mg/dL Normal 0.55-1.02 [facility] Comment on above: Performed By: #### B TRAFFIC EXPERT, CMP, HSTROPN #### [facility] [address] [place] [address] Dr. Carl Zuñiga EGFR-AF LAO >60 Normal >=60 [facility] Comment on above: Performed By: #### B TRAFFIC EXPERT, CMP, HSTROPN #### [facility] [address] [place] [address] Dr. Carl Zuñiga EGFR-NON AF LAO >60 Normal >=60 [facility] Comment on above: Performed By: #### B TRAFFIC EXPERT, CMP, HSTROPN #### [facility] [address] [address] [address] Carl Zuñiga Globulin (S) [Mass/Vol] 2.6 g/dL Normal [facility] Comment on above: Performed By: #### B TRAFFIC EXPERT, CMP, HSTROPN #### [facility] [address] [address] [address] Carl Zuñiga Glucose [Mass/Vol] 109 mg/dL Critically high 74-106 T [facility] Comment on above: Performed By: #### B TRAFFIC EXPERT, CMP, HSTROPN #### [facility] [address] [place] [address] Dr. Carl Zuñiga Potassium [Moles/Vol] 3.9 mmol/L Normal 3.5-5.1 [facility] Comment on above: Performed By: #### B TRAFFIC EXPERT, CMP, HSTROPN #### [facility] [address] [place] [address] Dr. Carl Zuñiga Protein [Mass/Vol] 6.5 g/dL Normal 6.4-8.[address] [facility] Comment on above: Performed By: #### B TRAFFIC EXPERT, CMP, HSTROPN #### [facility] [address] [place] [address] Dr. Carl Zuñiga Sodium [Moles/Vol] 138 mmol/L Normal 136-[address] [facility] Comment on above: Performed By: #### B TRAFFIC EXPERT, CMP, HSTROPN #### [facility] [address] [place] [address] Dr. Carl Zuñiga Urea nitrogen [Mass/Vol] 14.0 mg/dL Normal 7.0-18.0 [facility] Comment on above: Performed By: #### B TRAFFIC EXPERT, CMP, HSTROPN #### [facility] [address] [place] [address] Dr. Carl Zuñiga Urea nitrogen/Creatinine [Mass ratio] 15.2 mg/mg Normal [facility] Comment on above: Performed By: #### B TRAFFIC EXPERT, CMP, HSTROPN #### [facility] [address] [place], [place] [address] Dr. Carl Zuñiga TROPONIN, HIGH SENSITIVITYon 03-07-2022 HSTROP 2.8 pg/mL Critically low 4.0-51.3 [facility] Comment on above: Result Comment: CUT- OFF POINTS HAVE BEEN ESTABLISHED BASED ON THE FOURTH UNIVERSAL DEFINITIONS OF MYOCARDIAL INFARCTION. THE UPPER REFERENCE LIMIT (URL) OF TROPONIN, DEFINED THE 99TH PERCENTILE OF cTnI DISTRIBUTION IN A REFERENCE POPULATION, HAS BEEN CONFIRMED THE DECISION THRESHOLD FOR IA DIAGNOSIS. Performed By: #### B TRAFFIC EXPERT, CMP, HSTROPN #### [facility] [address] [place], [place] [address] Dr. Carl Zuñiga XR CHEST 1 Von [...] DIANA BREAUX Date: 2022-03-07 10:05 Normal [facility] CT CSPINE WO CONon CT CSPINE [...] MARQUES PATEL Date: 2021-07-10 02:49 Normal [facility] CT HEAD WO CONon 07-10-2021 [...] by: MARQUES PATEL Date: 2021-07-10 02:[address] [facility] XR CHEST 1 Von 07-10-2021 XR [...] 83.6 kg Laisha Coburn MD Work Phone: [facility] 12-07-2023 09:56-0400 Diastolic blood pressure 51 mm[Hg] Laisha Coburn MD Work Phone: [facility] 12-07-2023 09:56-0400 Heart rate 78 /min Laisha Coburn MD Work Phone: [facility] 12-07-2023 09:56-0400 Respiratory rate 17 /min Laisha Coburn MD Work Phone: [facility] 12-07-2023 09:56-0400 SaO2% (BldA) [Mass fraction] 99 % Laisha Coburn MD Work Phone: [facility] 12-07-2023 09:56-0400 Systolic blood pressure 98 mm[Hg] Laisha Coburn MD Work Phone: [facility] 11-28-2023 09:04-0400 Body temperature 97.7 [degF] El Ahmadi MD Work Phone: [facility] 11-28-2023 09:04-0400 Body weight 84.37 kg El Ahmadi MD Work Phone: [facility] 11-28-2023 09:04-0400 Diastolic blood pressure 78 mm[Hg] El Ahmadi MD Work Phone: [facility] 11-28-2023 09:04-0400 Heart rate 89 /min El Ahmadi MD Work Phone: [facility] 11-28-2023 09:04-0400 Respiratory rate 16 /min El Ahmadi MD Work Phone: [facility] 11-28-2023 09:04-0400 SaO2% (BldA) [Mass fraction] 99 % El Ahmadi MD Work Phone: [facility] 11-28-2023 09:04-0400 Systolic blood pressure 117 mm[Hg] El Ahmadi MD Work Phone: [facility] 11-12-2023 11:15-0400 Body temperature 97.9 [degF] Jayashree Avilez MD Work Phone: [facility] [employer] 11-12-2023 11:15-0400 Diastolic blood pressure 58 mm[Hg] Jayashree Avilez MD Work Phone: [facility] [employer] 11-12-2023 11:15-0400 Heart rate 74 /min Jayashree Avilez MD Work Phone: [facility] [employer] 11-12-2023 11:15-0400 Respiratory rate 18 /min Jayashree Avilez MD Work Phone: [facility] [employer] 11-12-2023 11:15-0400 SaO2% (BldA) [Mass fraction] 96 % Jayashree Avilez MD Work Phone: [facility] [employer] 11-12-2023 11:15-0400 Systolic blood pressure 116 mm[Hg] Jayashree Avilez MD Work Phone: [facility] [employer] 11-10-2023 03:41-0400 Body height 162.6 cm Jayashree Avilez MD Work Phone: [facility] [employer] 11-10-2023 03:41-0400 Body mass index (BMI) [Ratio] 33.34 kg/m2 Jayashree Avilez MD Work Phone: [facility] [employer] 11-10-2023 03:41-0400 Body weight 88.1 kg Jayashree Avilez MD Work Phone: [facility] [employer] 08-03-2023 08:23-0500 Blood Pressure Location Pamela Benson [facility] Encounters Encounter Date Encounter Type Care Provider Facility Start: 01-05-2024 End: 01-05-2024 ambulatory Edmond KUHN Facility:CD:[id number] Start: 12-16-2023 End: 12-16[facility] Start: 12-08-2023 End: 12-08-2023 Social Work Lisa ZHANG Hematology/Oncology Comment on above: Patient Update Start: 12-07-2023 End: 12-07-2023 ambulatory LAISHA COBURN Facility:[facility] Start: 12-07-2023 End: 12-07-2023 Patient encounter procedure Laisha Coburn MD Work Phone: Radiation Oncology Comment on above: 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) Start: 12-02-2023 End: 12-02-2023 ambulatory EL AHMADI Facility:[facility] Start: 11-28-2023 End: 11-29-2023 ambulatory Nathalie [...] Dx) Start: 11-21-2023 End: 11-21-2023 ambulatory GUERDA [facility] Start: 11-17-2023 ambulatory Edmond Matias ty:[id number] Start: 11-10-2023 End: 11-12-2023 Evaluation and management of inpatient Jayashree Avilez MD Work Phone: [facility] Comment on above: Bleeding from the ge nitourinary system Start: 11-09-2023 End: 11-09-2023 ambulatory Kobe Cherie Facility:[facility] Start: 11-02-2023 End: 11-02-2023 ambulatory KOBE CHERIE Not Available Start: 10-06-2023 End: 10-06-2023 ambulatory REBECCA [facility] Start: 09-23-2023 End: 09-23-2023 ambulatory [facility] Start: 08-26-2023 End: 08-26-2023 ambulatory [facility] Start: 08-24-2023 End: 08-24-2023 ambulatory Pamela M. Lue Facility:[facility] Start: 08-24-2023 End: 08-24-2023 Off-Site Pamela M. Lue [facility] Start: 08-04-2023 End: 08-04-2023 ambulatory Pamela M. Lue Facility:[facility] Start: 08-04-2023 End: 08-04-2023 Lab Drop off Pamela M. Lue [facility] Start: 08-03-2023 End: 08-03-2023 ambulatory Pamela M. Lue Facility:[facility] Start: 08-03-2023 End: 08-03-2023 Patient encounter procedure [facility] Start: 07-27-2023 End: 07-27-2023 ambulatory KOBE [...] - S adam or Plasma Bernadette Metzger APRN.TURNER AND [employer] Work Phone: [phone] Pamela Benson Plan of Treatment Date Care Activity Detail Author Start: 11-09-2028 Lipid panel [facility] Start: 11-10-2026 Diabetes Screening Diabetes Screenin g [facility] Start: 11-10-2024 GFR test (Diabetes, CKD 3-4, OR last GFR 15-59) GFR test (Diabetes, CKD 3-4, OR last GFR 15-59) [facility] Start: 03-11-2024 Influenza vaccination Influenz a Vaccine (Season Ended) [facility] Start: 02-09-2024 Influenza vaccination Flu vacc ine (Season Ended) [facility] Start: 01-16-2024 End: 12-27-2024 MR Pelvis WO and W contrast IV MRI FEMALE PELVIS WO/W IVCON Radiology Routine 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) Expected: 01/16/2024, Expires: 12/27/2024 [facility] Work Phone: Comment on above: Expected: 01/16/2024 , Expires: 12/27/2024 Start: 12-28-2023 End: 12-28-2023 ambulatory 12/28/2023 10:00 AM EDT Visit (SP) Office Gynecology Oncology [address] [place] [address] [place] [address] Mariam Mckinley MD [address] [place] [address] Vaginal Mass Gynecology Oncology Comment on above: [...] 1:00 PM EDT Office Visit Radiation Oncology [address] [place] [address] [place] [address] [place] [address] New Consult Radiation Oncology Comment on above: New Consult Start: 12-02-2023 End: 12-02-2023 Patient encounter procedure 12/02/2023 1:30 PM EDT Appointment Radiology Pet CT [address] [address] Comment on above: pet scan Start: 11-28-2023 End: 11-28-2023 Patient encounter procedure 11/28/2023 9:00 AM EDT Office Visit Radiation Oncology [address] [place] [address] El Ahmadi MD [address] [place] [address] Dr Jareth Natarajan cevical cancer Radiation Oncology Comment on above: Dr Jareth Natarajan cevical cancer Start: 11-11-2023 Annual Wellness Visi t (Medicare) Annual Wellness Visit (Medicare) [facility] Start: 07-11-2023 Advance Directive Discussion Advance Directive Discussion [facility] Start: 07-11-2023 Behavioral Health Screening Behavioral Health Screening [facility] Start: 03-11-2023 Covid-19 Vaccine ( season) Covid-19 Vaccine ( season) [facility] Start: 03-11-2023 Covid-19 Vaccine ( season) Covid-19 Vaccine ( season) [facility] Start: 03-11-2023 COVID-19 Vaccine ( season) COVID-19 Vaccine ( season) [facility] Start: 2020 Pneumococcal 65+ yea rs Vaccine (1 of 1 - PCV) Pneumococcal 65+ years Vaccine (1 of 1 - PCV) [facility] Start: 2020 Pneumococcal Vaccine : 65+ (1 of 1 - PCV) Pneumococcal Vaccine: 65+ (1 of 1 - PCV) [facility] Start: 2020 Screening for osteoporosis Bone Density Screening [facility] Start: 2015 Respiratory Syncytia l Virus (RSV) or age 60 yrs+ (1 - 1-dose 60+ series) Respiratory Syncytial Virus (RSV) or age 60 yrs+ (1 - 1-dose 60+ series) [facility] Start: 2015 RSV Vaccine (1 - 1-dose 60+ series) RSV Vaccine (1 - 1-dose 60+ series) [facility] Start: 2010 Screening for osteoporosis DEXA (modify frequency per FRAX score) [facility] Start: 2005 Screening for malignant neoplasm of breast Breast cancer screen [facility] Start: 2005 Shingles vaccine (1 of 2) Shingles vaccine (1 of 2) [facility] Start: 2005 Shingrix Vaccine (1 of 2) Shingrix Vaccine (1 of 2) [facility] Start: 2000 Screening for malignant neoplasm of colon [facility] Start: 1995 Screening for malignant neoplasm of breast Mammogram Screening [facility] Start: 1974 DTaP/Tdap/Td vaccine (1 - Tdap) DTaP/Tdap/Td vaccine (1 - Tdap) [facility] Start: 1974 Urine microalbumin profile DTaP,Tdap,Td Vaccine (1 - Tdap) [facility] Start: 1973 Hepatitis C screening B [facility] [employer] Start: 1967 Depression Screen Depression Screen [facility] [employer] Glucose [Mass/volume ] in Serum or Plasma [facility] [employer] Comment on above: 4X Daily (AC & HS) u ntil discontinued starting 11/10/2023 As Needed until disc ontinued starting 11/10/2023 OUTSIDE SURG PATH SLIDE REVIEW OUTSIDE SURG PATH SLIDE REVIEW Lab Routine High grade squamous intraepithelial lesion (HGSIL), grade 3 SUDHA, on biopsy of cervix Ordered: 11/23/2023 [facility] Work Phone: Comment on above: Ordered: 11/23/2023 Oxygen therapy [Minimum Data Set] Initiate Oxygen Therapy Protocol Respiratory Care Routine Daily until discontinued starting 11/10/2023 [facility] [employer] Comment on above: Daily until disconti nued starting 11/10/2023 End: 12-24-2024 PET+CT Guidance for localization of tumor of Skull base to mid-thigh-- W 18F-FDG IV NM PET/CT SKULL-THIGH INITIAL Radiology Routine 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) 1 Occurrences starting 11/25/2023 until 12/24/2024 [facility] Work Phone: Comment on above: 1 Occurrences starti ng 11/25/2023 until 12/24/2024 End: 11-10-2023 [facility]IMEN [facility]CTION [facility] Work Phone: Comment on above: Once for 1 Occurrenc es starting 11/10/2023 until 11/10/2023 Surgical Pathology Surgical Path ology Lab Routine Bleeding from the genitourinary system Release Upon Ordering for 1 Occurrences starting 11/11/2023 [facility] [employer] Comment on above: Release Upon Orderin g for 1 Occurrences starting 11/11/2023 Immunizations Immunization Date Immunization Notes Care Provider Jairo burton 05-27-2022 SARS-CoV-2 (COVID-19 ) [id number] Pamela Benson [facility] 06-12-2021 SARS-CoV-2 (COVID-19 ) mRNA BNT-162b2 vax Pamela Lue [facility] 08-13-2020 SARS-CoV-2 (COVID-19 ) mRNA BNT-162b2 vax Pamela Lue [facility] Comment on above: Result Comment: 2023: [id number] 07-23-2020 SARS-CoV-2 (COVID-19 ) mRNA BNT-162b2 vax Pamela Lue [facility] Comment on above: Result Comment: 2023: [id number] Payers Date Payer Category Payer Self-pay 2023 Medicare [id number] [address] [facility] [place] MEDICAID [id number] 2020-Present [phone] [address] [place] [address] Medicaid [id number] 2020 Medicaid [id number] 2020 Medicare MEDICARE MEDICAR E A AND B [id number] 2020-Present [phone] [address] [address] [place] [address] Medicare [id number] 2020 Medicare [id number] 1955 Unknown [id number] 1955 Unknown [id number] 1955 Unknown [id number] 1955 Unknown [id number] 1955 Unknown [id number] 1955 Unknown [id number] 1955 Unknown [id number] 1955 Unknown [id number] 1955 Unknown [id number] [id number] 1955 Unknown [id number] Unknown [id number] Social History Date Type Detail Facility Start: 08-03-2023 Tobacco smoking status Never s moked tobacco (finding) [facility] Start: 11-28-2023 End: 12-07-2023 Sex Assigned At Female [facility] Tobacco smoking stat [facility] Tobacco smoking consumption unknown [facility] Start: 1955 Sex Assigned At Not on file [facility] Start: 11-28-2023 [facility] History of tobacco use Current smoker [facility] History of tobacco use Cigarette Smoker [facility] Start: 11-28-2023 End: 12-07-2023 Cigarettes smoked current (pack per day) - Reported 0.5 [facility] Start: 11-28-2023 Tobacco use and exposure Smokeless tobacco non-user [facility] Start: 11-28-2023 End: 12-07-2023 Alcohol intake Current drinker of alcohol (finding) [facility] National Score (1-10 0), lower number is lower risk 63 [facility] Functional Status Date Assessment Result Facility 08-03-2023 Functional Status N/A [facility] Clinical Notes 08-03-2023 to 12-16-2023 UriahAlliei, MIXING MACHINE ATTENDANT - 12/08/2023 2:57 PM EDTTelephone Encounter - Skylar Harris - 12/08/2023 1:09 PM EDTTelephone Encounter - Skylar Harris - 12/08/2023 1:09 PM EDT Note Date & Type Note Facility 12-16-2023 Note Cardiology Clinic No te HPI: Candis Johnson is a 68 y.o. female With no reported cardiac history who presents to cardiology clinic at the request of her [facility] doctor for perioperative restratification prior to D&C and LEEP procedure. Of note: Patient is deaf. 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 She does her best to communicate by lipreading. She is accompanied by her haul truck driver son, grandson, who assists in communication. Patient here for follow up [facility] ED visit on 12/10/2023 for syncope. [...] a past medical history of Diabetes mellitus ([facility]). Surgical History She has [...] respect their wis (more content not included)... [facility] 12-08-2023 Note HNO ID: [id number] Author: LISA KRUSE LSW Service: ? Author Type: Hospice Administrator Type: Progress Notes Filed: 12/08/2023 15:01 Note Text: Patient appears on the [facility] First Time Radiation Treatment Report. MARCELO completed a chart review and there was a note from today...Please cancel Candis's SIM scheduled 12/09/[address] Ahmadi. Patient's PET scan shows metastatic disease and patient will proceed with chemotherapy per Dr. Templeton. SW will remain available and will follow up as appropriate. BRENT Siddiqi [facility] 12-08-2023 History of Presen t illness Narrative Patient appears on the [facility] First Time Radiation Treatment Report. MARCELO completed a chart review and there was a note from today...Please cancel Candis's SIM scheduled 12/09/[address] Ahmadi. Patient's PET scan shows metastatic disease and patient will proceed with chemotherapy per Dr. Templeton. MARCELO will remain available and will follow up as appropriate. BRENT Siddiqi documented in this encounter [facility] 12-08-2023 Telephone encounter Note Report faxed to Dr. Gleason and Dr. Avilez. Images pushed to [facility]. [facility] 12-08-2023 Miscellaneous Notes Report faxed to Dr. [...] Mecca Boyle RN documented in this encounter [facility] 12-08-2023 Telephone encounter Note MRI not needed per chat [facility] 12-08-2023 Miscellaneous Notes MRI not needed per chat Spoke with patients son, he would like scheudled at [facility] since its easiest for nusing home [...] Dr. Mckinley - she is established with hims manager onc out of [place] already (Dr. Avilez). Will need repeat MRI pelvis week of January 15. Thanks! El Dr Ahmadi- order pending your approval. Nathalie Saleh RN Please place [facility] RAD onc consult I called and spoke to Angelina at [facility] and she said Candis does very well [...] language. She has been a resident at [facility] assisted living for 4-5 years and does very well there per Landen. I notified Landen that Dr. Ahmadi is ordering a PET scan, rad onc consult at [facility] and trying to move up Candis's consult with Dr. Mckinley goran. Landen states between himself and [facility] transportation should not be an issue. Yumiko: 1. Please schedule PET scan goran. 2. Rad Onc consult at [facility] 3. Move up Dr. Mckinley's consult goran. Dr. Mckinley are you or your staff able to assist in rescheduling Ms. Johnson's consult with you goran per Dr. Ahmadi? She is currently scheduled for consult on 12/28/23. Thanks Mecca Boyle RN documented in this encounter [facility] 12-08-2023 Telephone encounter Note Cancelled appointment. [facility] 12-08-2023 Telephone encounter Note Yumiko: Please cancel [...] Gleason and Dr. Avilez. Mecca Boyle RN [facility] 12-08-2023 Telephone encounter Note Spoke with patients son, he would like scheudled at [facility] since its easiest for nusing home I sent over order will check on later, thanks [facility] 12-08-2023 Telephone encounter Note Called son to see where they would like the MRI scheduled, had to leave a message. [facility] 12-07-2023 History of Presen t illness Narrative [...] when she presented to Dr. Crespo in [facility] from her nursing facility with symptoms of [...] Alcohol use: Yes Drug use: Not Currently [facility] HISTORY: The patient is postmenopausa. COMPLETE REVIEW OF SYSTEMS: All other ROS: negative As noted in HPI PHYSICAL EXAM: VS: There were no vitals taken for this visit. KPS: 70 General Appearance: Alert and oriented. No acute distress. HEENT: NCAT. Sclera anicteric. PERRL. EOMI. Chest: No respiratory distress. Abdomen: Soft. Nontender. Nondistended. LINING CLOSER: Deferred at this time. RADIOLOGY/LABORATORY DATA: see [...] MD cc: El Ahmadi [address] [facility] [address] Jayashree Avilez Credit Risk Analyst Oncology-[facility] Abisai Gleason Heme/Onc[facility] documented in this encounter [facility] 12-07-2023 Note HNO ID: [id number] Author: LAISHA COBURN MD Service: ? Author [...] when she presented to Dr. Crespo in [facility] from her nursing facility with symptoms of [...] Alcohol use: Yes Drug use: Not Currently [facility] HISTORY: The patient is (more content not included)... [facility] 12-02-2023 Note HNO ID: [id number] Author: MIRIAN JIMENES RT(Con) Service: ? Author [...] 1340 PATIENT DISCHARGED TO: Ambulatory patient, left MD department area. A Diagnostic radioactive procedure has taken place, with no further precautions necessary other than routine body substance precautions. More information regarding radiation safety can be found using this link: [email or web address] SIGNATURE: RT Aliyah(R) PATIENT NAME: Candis Johnson DATE: December 02, 2023 TIME: 2:23 PM PAGER/CONTACT #: [facility] 12-02-2023 Note HNO ID: [id number] Author: ASHWINI BUNCH RN Service: ? Author [...] 1:44 PM [facility] 11-28-2023 Telephone encounter Note MRI order pending your approval. Mecca Boyle RN [facility] 11-28-2023 Telephone encounter Note Please place MRI orders [facility] 11-28-2023 Note HNO ID: [id number] Author: EL AHMADI MD Service: ? Author Type: Physician Type: Progress Notes Filed: 12/13/2023 04:59 Note Text: Radiation Oncology - New Patient/Consult Note PATIENT NAME: Candis Johnson PATIENT REQUESTING PHYSICIAN: Dr. Jayashree Avilez, Dr. Abisai Gleason DIAGNOSIS: Locally advanced cervical cancer. PATIENT IDENTIFICATION: This patient was seen in the Department of Radiation Oncology at the [facility] with El Ahmadi MD. She was accompanied today by her son. She is mostly deaf and much of the conversation was conducted with the son who is also the medical power of collections attorney. Final recommendations will be communicated back to the requesting physician by way of the shared medical record, or letter to requesting physician via US mail. HISTORY OF PRESENT ILLNESS: Ms. Johnson is a 68-year old deaf woman residing in an assisted living facility in [place], [place] and her son is her medical power of collections attorney. Per note from Dr. Gleason on [...] the final pathology as below Path Number: [id number] -- Diagnosis -- A. LEFT CERVIX, BIOPSY: [...] IIIb cervical cancer and was evaluated by [facility] oncology and due to the fact fixed [...] lives in an assisted living facility in [place], [place]. She had a legal guardian in the past and her son is now the medical power of collections attorney. She also has two other children. [...] not included)... [facility] 11-28-2023 History of Presen t illness Narrative Images from the original note were not included. Radiation Oncology - New Patient/Consult Note PATIENT NAME: Candis Johnson PATIENT REQUESTING PHYSICIAN: Dr. Jayashree Avilez, Dr. Abisai Gleason DIAGNOSIS: Locally advanced cervical cancer. PATIENT IDENTIFICATION: This patient was seen in the Department of Radiation Oncology at the [facility] with El Ahmadi MD. She was accompanied today by her son. She is mostly deaf and much of the conversation was conducted with the son who is also the medical power of collections attorney. Final recommendations will be communicated back [...] lives in an assisted living facility in [place], [place]. She had a legal guardian in the past and her son is now the medical power of collections attorney. She also has two other children. [...] her son is her medical power of collections attorney. She was recently diagnosed with advanced [...] later this week. She has met with [facility] oncologist Dr. Avilez and medical oncologist Dr. [...] the residual disease to be performed at [facility] by one of my colleagues. 3. Referral will be made to my hims manager radiation oncology colleagues at [facility] for evaluation and treatment recommendations including making [...] which included preparing to see the patient, [id number] patient care, and counseling and educating the patient/family/caregiver. This document has been created with the use of voice recognition technology. It may contain inaccuracies, misspellings, inaccurate syntax or inappropriate word context that are a result of the inadequacies/shortcomings of said technology/software. documented in this encounter [facility] 11-28-2023 Telephone encounter Note Rad onc consult order signed for [facility] referral (brachytherapy). Can cancel consult request with Dr. Mckinley - she is established with hims manager onc out of [facility] (Dr. Avilez). Will need repeat MRI pelvis week of January 15. Thanks! El [facility] 11-28-2023 Nurse Note Pacemaker/Defibrillator?N Previous Cancer(s)?N Previous Radiation?N Lupus/Scleroderma?N On body monitoring device?N [facility] 11-28-2023 Nurse Note Pacemaker/Defibrillator?N Previous Cancer(s)?N Previous Radiation?N Lupus/Scleroderma?N On body monitoring device?N documented in this encounter [facility] 11-28-2023 Nurse Note Radiation Therapy - Patient Education Note PATIENT NAME: Candis Johnson PATIENT November 28, 2023 [facility] READINESS TO LEARN Cognitive Ability: Confused at [...] device: No Signed by: Nathalie Saleh RN [facility] 11-28-2023 Nurse Note Radiation Therapy - Patient Education Note PATIENT NAME: Candis Johnson PATIENT November 28, 2023 [facility] READINESS TO LEARN Cognitive Ability: Confused at [...] Nathalie Saleh RN documented in this encounter [facility] 11-28-[address] Ahmadi- kaelyn pending your approval. Nathalie Saleh RN [facility] 11-28-2023 Telephone encounter Note Please place [facility] RAD onc consult [facility] 11-28-2023 Note Education (RADTSA) CANDIS JOHNSON ([id number]) 1955 F DEF Date Time Provider Department 11/28/23 NATHALIE SALEH Reason for Visit: Patient Education [91] Visit Notes: >> Nathalie Saleh RN Mon November 28, 2023 10:22 AM Status: Signed Radiation Therapy - Patient Education Note PATIENT NAME: Candis Johnson PATIENT November 28, 2023 [facility] READINESS TO LEARN Cognitive Ability: Confused at [...] on 11/28/23 [facility] 11-25-2023 Telephone encounter Note I called and spoke to Angelina at [facility] and she said Candis does very well [...] language. She has been a resident at [facility] assisted living for 4-5 years and does very well there per Landen. I notified Landen that Dr. Ahmaid is ordering a PET scan, rad onc consult at [facility] and trying to move up Candis's consult with Dr. Elías zimmer. Landen states between himself and [facility] transportation should not be an issue. Yumiko: 1. Please schedule PET scan goran. 2. Rad Onc consult at [facility] 3. Move up Dr. Mckinley's consult goran. Dr. Mckinley are you or your staff able to assist in rescheduling Ms. Johnson's consult with you goran per Dr. Ahmadi? She is currently scheduled for consult on 12/28/23. Thanks Mecca BoyleRN [facility] 11-21-2023 Note Cardiology Clinic No te HPI: Candis Johnson is a 68 y.o. female With no reported cardiac history who presened to cardiology clinic at the request of her [facility] doctor for perioperative restratification prior to D&C and LEEP procedure. Of note: Patient is deaf. 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 She does her best to communicate by lipreading. She is accompanied by her haul truck driver today, who assists in communication. Stress test and echocardiogram were performed after last visit. Stress test without evidence of ischemia. Echocardiogram demonstrated preserved EF. She had moderately elevated right-sided pressures (51 mmHg) and diastolic dysfunction. Patient here for 2 mo follow up. Lasix was put on hold at last apt in September 2023 by Leydi Miles CNP. Patient was admitted to [facility] for HGB of 6.5. D&C was attempted by Dr. Crespo but unsuccessful. She was transferred to [facility]. Cervical cancer is suspected per assisted living facilty. They would also like to know if lasix should be resumed or continue to be held. Patient still endorses some shortness of breath. Cardiology ROS: 10 point ROS is performed and is negative unless otherwise specified in HPI. Past Medical History She has a past medical history of Diabetes mellitus ([facility]). Surgical History She has [...] possible cervical cancer. Recommend follow up with automotive parts manager for this -Optimize medical management -Aggressive risk factor modification -Plan of care discussed with patient. All questions were answered. Patient voices understanding and is agreeable with current plan. -Patient was educated on red flag symptoms. Strict return precautions were provided. Patient verbalizes (more content not included)... [facility] 11-12-2023 Hospital course Narrative Credit Risk Analyst/Onc Discharge Summary [facility] Hospital Patient Name: Candis Johnson Patient : [...] of vaginal mass as transfer from [facility]; HD#1 (11/09): Patient is hard of [...] Follow-up care, restrictions reviewed. Wil Mai MD Hospital Mortician Resident [facility] 11/12/2023, 9:07 AM documented in this encounter [facility] 11-12-2023 History of Presen t illness Narrative Gynecology Oncology Progress Note Candis Johnson is a 68 y.o. female HD#3, POD#1 who transferred from [place] due to concern for vaginal mass Patient [...] Pickeringnoemi 68 y.o. female HD#3 transferred from [place] due to concern for vaginal mass - [...] with Deafness - Discussed with nursing at [facility] and patient's son, Landen - Per nursing, [...] significant clearance testing in anticipation for her hims manager/urologic procedures - 09/09/23: myocardial perfusion imagining normal - 09/09/23: ECHO: EF 55-60%; normal RV size/function. Bilateral enlargement. Grade 2 diastolic dysfunction. - Repeat EKG 11/09: Normal sinus rhythm, anterior infarct age undetermined (old, seen on EKG on 08/15/23) - Nitroglycerin ordered PRN - Ranolazine not ordered inpatient - Continue to monitor Anemia - Admit Hgb @ [facility] 6.5 - S/p 2u pRBC Hgb 8.9 - Admit Hgb at [facility] 8.7 - Hgb 5/3; 9.0 - [...] insulin requirement Schizophrenia - Per nursing at [facility] and patient's son, patient has significant PMH [...] y.o. female HD#2, POD#0 who transferred from [place] due to concern for vaginal mass Patient [...] Johnson 68 y.o. female HD#2 transferred from [place] due to concern for vaginal mass - [...] with Deafness - Discussed with nursing at [facility] and patient's son, Landen - Per nursing, [...] significant clearance testing in anticipation for her hims manager/urologic procedures - 09/09/23: myocardial perfusion imagining normal [...] pRBC Hgb 8.9 - Admit Hgb at [facility] 8.7 - Hgb 5/3; 9.0 - [...] insulin requirement Schizophrenia - Per nursing at [facility] and patient's son, patient has significant PMH [...] a 68 y.o. female HD#2 transferred from [place] due to concern for vaginal mass Patient [...] Johnson 68 y.o. female HD#2 transferred from [place] due to concern for vaginal mass - [...] with Deafness - Discussed with nursing at [facility] and patient's son, Landen - Per nursing, [...] significant clearance testing in anticipation for her hims manager/urologic procedures - 09/09/23: myocardial perfusion imagining normal [...] pRBC Hgb 8.9 - Admit Hgb at [facility] 8.7 - AM CBC pending - [...] insulin requirement Schizophrenia - Per nursing at [facility] and patient's son, patient has significant PMH [...] as the patient's health care power of collections attorney. Landen has been advised of the [...] Evaluation: A cardiology evaluation was completed at [facility] prior to her transfer. Records have been reviewed. Lab results have been reviewed Proceed with surgical evaluation as planned Jayashree Avilez MD Gynecologic Oncology Obstetric/Gynecology Resident Interval Note At time of rounding, patient in MRI suite obtaining MRI pelvis. Dr. Avilez, LINING CLOSER/ONC attending, present at bedside to discuss evaluation and management plans with patient's son, Landen. Landen is the patient's power of collections attorney and medical decision maker. Paperwork uploaded [...] ms QTc Calculation (Bazett) 410 ms P [place] 40 degrees R [place] 6 degrees T [place] 20 degrees EKG 12 Lead Collection Time: 11/10/23 4:32 AM Result Value Ref Range Ventricular Rate 65 BPM Atrial Rate 65 BPM P-R Interval 172 ms QRS Duration 86 ms Q-T Interval 406 ms QTc Calculation (Bazett) 422 ms P [place] 42 degrees R [place] 7 degrees T [place] 19 degrees Comprehensive Metabolic Panel w/ Reflex [...] Sample Expiration 11/13/2023,2359 Arm Band Number BE [id number] ABO/Rh O POSITIVE Antibody Screen NEGATIVE Lipid [...] 65 - 105 mg/dL Annabelle Moss MD CERTIFIER Resident, PGY2 [place], [place] 11/10/2023, 5:14 PM Attending Physician Statement [...] the resident. Jayashree Avilez MD Gynecologic Oncology EXPERIMENTAL PLASTICS FABRICATOR ALL NOTES Facility/Department: [address] MED SURG CLINICAL BEDSIDE SWALLOW EVALUATION NAME: Candis Johnson : 1955 ADMISSION DATE: 11/10/2023 ADMITTING DIAGNOSIS: has Vaginal mass on their problem list. Date of Eval: 11/10/2023 Evaluating Therapist: JODIE Damon Current Diet level: Current Diet : NPO Current Liquid Diet : NPO Primary Complaint: Candis Johnson is a 68 y.o. female presents to [facility] as a direct transfer from [facility] for concern for vaginal cancer. All the information is derived from a paper chart from [facility]. We do not have access to [...] Normal in all situations Treatment Plan Requires EXPERIMENTAL PLASTICS FABRICATOR Intervention: Yes 1-2X D/C Recommendations: Ongoing speech [...] Patient Education Response: Verbalizes understanding Therapy Time [id number] JODIE Damon 11/10/2023 11:10 AM Unable to complete admission assessment. Patient has impaired hearing. documented in this encounter [facility] 10-06-2023 Note Cardiology Clinic No te Chief Complaint: preop risk stratification HPI: PMHx: Candis Johnson is a 68 y.o. female With no reported cardiac history who presents to cardiology clinic at the request of her CERTIFIER doctor for perioperative restratification prior to D&C and LEEP procedure. Of note: Patient is deaf. 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 She does her best to communicate by lipreading. She is accompanied by her haul truck driver today, who assists in communication. [...] a past medical history of Diabetes mellitus ([facility]). Surgical History She has [...] test 09/09/2023 N (more content not included)... [facility] 10-06-2023 Note Patient here for 2 w cherokee follow up SOB, atypical chest pain, and [...] All other systems reviewed and are negative. [facility] 09-23-2023 Note Cardiology Clinic No te Chief Complaint: preop risk stratification HPI: Candis Johnson is a 68 y.o. female With no reported cardiac history who presents to cardiology clinic at the request of her CERTIFIER doctor for perioperative restratification prior to D&C and LEEP procedure. Of note: Patient is deaf. 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 She does her best to communicate by lipreading. She is accompanied by her haul truck driver today, who assists in communication. [...] a past medical history of Diabetes mellitus ([facility]). Surgical History She has [...] -Further recommendations regardi (more content not included)... [facility] 09-23-2023 Note Concerns: Not much s tates some swelling in legs and some back back, chest pain seems to be getting better [facility] 08-26-2023 Note Cardiology Clinic No te Chief Complaint: preop risk stratification HPI: Candis Capelle is a 68 y.o. female With no reported cardiac history who presents to cardiology clinic at the request of her CERTIFIER doctor for perioperative restratification prior to D&C and LEEP procedure. Of note: Patient is deaf. 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 She does her best to communicate by lipreading. She is accompanied by her haul truck driver today, who assists in communication. As per patient and her haul truck driver, patient denies any cardiac history. She denies any prior history of heart failure, CAD, PCI, or IA. She does report occasional chest pain. Chest [...] a past medical history of Diabetes mellitus ([facility]). Surgical History She has [...] HLD -Optimize med (more content not included)... [facility] 08-26-2023 Note New patient here to establish care. Ref from Dr. Crespo for surgery clearance prior to D&C and LEEP procedure. This is scheduled for 08/31 at [facility] per patient. She had labs and EKG last week. Says she gets intermittent chest pain and SOB w/ exertion. Review of Systems HENT: Positive for hearing loss. Cardiovascular: Positive for chest pain (intermittent) and dyspnea on exertion (intermittent). All other systems reviewed and are negative. [facility] 08-04-2023 Evaluation + Plan note Diagnostic Tests PendingUrine Cytology ([facility]) 08/04/23 [facility] 08-03-2023 Hospital Discharg e instructions Patient [...] including vitamins, herbs, eye drops, creams, and pznb-vxt-yaihlln medicines. Any problems you or family members [...] health care provider tells you to. Taking kfdl-gmw-eeyxeac medicines, vitamins, herbs, and supplements. General instructions [...] provider. Document Revised: 10/22/2022 Document Reviewed: 10/22/2022 Dragon [employer] Patient Education 2022 [employer]. 08/03/2023 09:37:21 Hematuria, Adult Hematuria, Adult Hematuria [...] Follow these instructions at home: Medicines Take rsud-gvs-jmulurx and prescription medicines only as told by [...] or the blood stops without treatment. Take fysr-csx-pjwmfty and prescription medicines only as told by your health care provider. Drink enough fluid to keep your urine pale yellow. This information is not intended to replace advice given to you by your health care provider. Make sure you discuss any questions you have with your health care provider. Document Revised: 02/25/2021 Document Reviewed: 02/25/2021 Dragon Law Patient Education 2022 [employer]. Follow Up Care 07/13/2023 11:34:42 With:Marcelino GALLARDO, Pamela Fam URVaishali, URO Address: When: Unknown Comments:Schedule Cysto, Rt ureteroscopy, possible biopsy, and Rt stent placement [facility] Evaluation + Plan note No data available for this section [facility] Evaluation note Diagnosis Vaginal mass- Primary Other specified symptom associated with female genital organs Bleeding from the genitourinary system Other specified disorders of urinary tract documented in this encounter [facility] note* Diagnosis High grade squamous intraepithelial lesion (HGSIL), grade 3 SUDHA, on biopsy of cervix- Primary documented in this encounter [facility] note* Diagnosis 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)- Primary documented in this encounter [facility] note* Diagnosis 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)- Primary [facility] Diagnosis 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)- Primary [facility] Diagnosis 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)- Primary [facility] Discharge instructions No data available for this section [facility] Attachments The following attachments cannot be sent through Care Everywhere. * Hysteroscopy: Post-op (Yoruba) * Cystoscopy: Post-op (Yoruba) [facility] No data available for this section [facility] Fidelis reason for referral (narrative)* Diagnostic Procedure Only (Routine) - Pending Review Specialty Diagnoses / Procedures Referred By Luis hernandez Referred To Contact MOLECULAR & FUNCTIONAL IMAGING Diagnoses 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) Procedures NM PET/CT SKULL-THIGH INITIAL PET IMAGING CT ATTENUATION SKULL BASE MID-THIGH El Ahmadi MD [facility] [employer] [address] [place] [address] Molecular & Functional Imaging [address] [place] [address] Referral ID Status Reason Start Date Expiration Date Visits Requested Visits Authorized [id number] Pending Review Auto-Generat ed Referral 11/25/2023 12/24/2024 1 1 [facility] Summary Purpose Family History No [...] W/O & W/CONTRAST MATERIAL El Ahmadi MD [facility] [address] [place] [address] [place] [address] Referral ID Status Reason Start Date Expiration Date Visits Requested Visits Authorized [id number] Pending Review Auto-Generat ed Referral 01/16/2024 12/27/2024 1 1 Specialty Diagnoses / Procedures Referred By Contac t Referred To Contact Radiation Oncology Diagnoses 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) Procedures RAD/ONC CONSULT OFFICE/OUTPATIENT [facility] 60 MINUTES El Ahmadi MD [address] [place] [address] Referral ID Status Reason Start Date Expiration Date V isits Requested Visits Authorized [id number] Closed PCP Requested Referral 11/29/2023 11/27/2024 1 1 Additional Source Comments INFORMATION SOURCE (unrecogn ized section and content) DATE CREATED AUTHOR 07/05/2022 [facility] DATE CREATED AUTHOR AUTHOR'S ORGANIZ ATION 11/04/2023 [facility] EPIC DATE CREATED AUTHOR AUTHOR'S ORGANIZ ATION 12/13/2023 [facility] DATE CREATED AUTHOR AUTHOR'S ORGANIZ ATION 12/17/2023 [facility] DATE CREATED AUTHOR AUTHOR'S ORGANIZ ATION 12/20/2023 [facility] DATE CREATED AUTHOR AUTHOR'S ORGANIZ ATION 01/09/2024 [facility] DATE CREATED AUTHOR AUTHOR'S ORGANIZ ATION 01/12/2024 [facility] Patient Care team informatio n (unrecognized section and content) Salesperson [employer] Relationship Specialty Start Date End Date Ander Langley DO [address] [place] [id number] PCP - General Internal Medicine 11/10/23 Reason for Visit (unrecogniz ed section and content) Specialty Diagnoses / Procedures Referred By Contac t Referred To Contact Diagnoses Vaginal mass vaginal cancer, anemia bleeding Jayashree Avilez MD [address] [place] [address] [facility] [address] [place] [address] [facility] [address] [place] [address] Referral ID Status Reason Start Date Expiration Date Visits Re quested Visits Authorized [id number] 1 1 Reason Comments Patient Education Reason Comments Orders Patient Update Reason Comments Patient Update Reason Onset Date Comments Consult Simulation Request Form 11/28/2023 Reason Comments Consult Specialty Diagnoses / Procedures Referred By Contac t Referred To Contact Radiation Oncology Diagnoses 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) Procedures RAD/ONC CONSULT OFFICE/OUTPATIENT [facility] 60 MINUTES El Ahmadi MD [address] [place] [address] [place] [address] Referral ID Status Reason Start Date Expiration Date V isits Requested Visits Authorized [id number] Closed PCP Requested Referral 11/29/2023 11/27/2024 1 1 Scheduled Active and Recently Administ ered Medications (unrecognized section and content) Medication Order 11/10/2023 11/11/2023 11/12/2023 acarbose (PRECOSE) tablet 100 mg 100 mg, Oral, 2 times daily, First dose on Rosina 11/10/23 at 1000, Until Discontinued 1118 (Given - Provider: Radha Cadet RN)2147 (Given - Provider: aSlly Garcia RN) 0855 (Held - Provider: Snehal [...] as the piggyback being infused. 1623 ([facility] Hold - Provider: Tiffany Autohold - Reason: Unreviewed Transfer Orders)1931 ([facility] Unhold - Provider: Marysol Head RN) acetaminophen (TYLENOL) tablet 1,000 mg 1,000 mg, Oral, EVERY 6 HOURS PRN, Starting on Rosina 11/10/23 at 0934, Until Discontinued, Pain Mild (1-3) 1623 ([facility] Hold - Provider: Tiffany Autohold - Reason: Unreviewed Transfer Orders)1931 ([facility] Unhold - Provider: Marysol Head RN) albuterol sulfate HFA (PROVENTIL;VENTOLIN;PROAIR) 108 (90 Base) MCG/ACT inhaler 2 puff 2 puff, Inhalation, EVERY 6 HOURS PRN, Starting on Rosina 11/10/23 at 0937, Until Discontinued, Wheezing, Initiate RT Bronchodilator Protocol: Yes - Inpatient Protocol 1623 ([facility] Hold - Provider: Tiffany Autohold - Reason: Unreviewed Transfer Orders)1931 ([facility] Unhold - Provider: Marysol Head RN) [...] minutes, discontinue dextrose 10% infusion. 1623 ([facility] Hold - Provider: Tiffany Autohold - Reason: Unreviewed Transfer Orders)1931 ([facility] Unhold - Provider: Marysol Head RN) [...] 100 mL/hour and notify provider. 1623 ([facility] Hold - Provider: Tiffany Autohold - Reason: Unreviewed Transfer Orders)1931 ([facility] Unhold - Provider: Marysol Head RN) [...] 100 mL/hour and notify provider. 1623 ([facility] Hold - Provider: Tiffany Autohold - Reason: Unreviewed Transfer Orders)1931 ([facility] Unhold - Provider: Marysol Head RN) fluticasone (FLONASE) 50 MCG/ACT nasal spray 2 spray 2 spray, Each Nostril, DAILY PRN, Starting on Rosina 11/10/23 at 0938, Until Discontinued, Rhinitis 1623 ([facility] Hold - Provider: Tiffany Autohold - Reason: Unreviewed Transfer Orders)1931 ([facility] Unhold - Provider: Marysol Head RN) gadoteridol (PROHANCE) injection 17 mL (COMPLETED) 17 mL, IntraVENous, IMG ONCE PRN, 1 dose, Starting on Orsina 11/10/23 at 1721, Until Rosina 11/10/23 at [...] x 2 and notify provider. 1623 ([facility] Hold - Provider: Tiffany Autohold - Reason: Unreviewed Transfer Orders)1931 ([facility] Unhold - Provider: Marysol Head RN) [...] THAN 70 mg/dL, notify provider. 1623 ([facility] Hold - Provider: Tiffany Autohold - Reason: Unreviewed Transfer Orders)1931 ([facility] Unhold - Provider: Marysol Head RN) [...] Protocol: Yes - Inpatient Protocol 1623 ([facility] Hold - Provider: Tiffany Autohold - Reason: Unreviewed Transfer Orders)1931 ([facility] Unhold - Provider: Marysol Head RN) nitroGLYCERIN (NITROSTAT) SL tablet 0.4 mg 0.4 mg, SubLINGual, EVERY 5 MIN PRN, Starting on Rosina 11/10/23 at 0943, Until Discontinued, Chest pain, Place 1 tablet under tongue upon chest pain, wait 5 minutes and may repeat up to 3 doses in 15 minutes. Do not crush or break. Substituted for nitroGLYCERIN translingual spray (NITROLINGUAL).. 162 ([facility] Hold - Provider: Tiffany Autohold - Reason: Unreviewed Transfer Orders)193 ([facility] Unhold - Provider: Marysol Head RN) ondansetron (ZOFRAN) injection 4 mg(Linked Group 2) 4 mg, IntraVENous, EVERY 6 HOURS PRN, Starting on Rosina 11/10/23 at 0353, Until Discontinued, Nausea, Vomiting, Administer if oral route cannot be used. 162 ([facility] Hold - Provider: [facility] Autohold - Reason: Unreviewed Transfer Orders)1931 ([facility] Unhold - Provider: Marysol Head RN) ondansetron (ZOFRAN-ODT) disintegrating tablet 4 mg(Linked Group 2) 4 mg, Oral, EVERY 8 HOURS PRN, Starting on Rosina 11/10/23 at 0353, Until Discontinued, Nausea, Vomiting 1623 ([facility] Hold - Provider: [facility] Autohold - Reason: Unreviewed Transfer Orders)1931 ([facility] [...] or prosecute any alcohol or drug abuse patient.[facility] Center[facility] the event this information is protected by the Federal Confidentiality of Alcohol and Drug Abuse Patient Records regulations: The Federal rules restrict any use of the information to criminally investigate or prosecute any alcohol or drug abuse patient.[facility] CenterIn the event this information is protected by the Federal Confidentiality of Alcohol and Drug Abuse Patient Records regulations: The Federal rules restrict any use of the information to criminally investigate or prosecute any alcohol or drug abuse patient.[facility] CenterIn the event this information is protected by the Federal Confidentiality of Alcohol and Drug Abuse Patient Records regulations: The Federal rules restrict any use of the information to criminally investigate or prosecute any alcohol or drug abuse patient.[facility] CenterIn the event this information is protected by the Federal Confidentiality of Alcohol and Drug Abuse Patient Records regulations: The Federal rules restrict any use of the information to criminally investigate or prosecute any alcohol or drug abuse patient.[facility] CenterIn the event this information is protected by the Federal Confidentiality of Alcohol and Drug Abuse Patient Records regulations: The Federal rules restrict any use of the information to criminally investigate or prosecute any alcohol or drug abuse patient.[facility] CenterIn the event this information is protected by the Federal Confidentiality of Alcohol and Drug Abuse Patient Records regulations: The Federal rules restrict any use of the information to criminally investigate or prosecute any alcohol or drug abuse patient.[facility] CenterIn the event this information is protected by the Federal Confidentiality of Alcohol and Drug Abuse Patient Records regulations: The Federal rules restrict any use of the information to criminally investigate or prosecute any alcohol or drug abuse patient.[facility] FOR RECORDS PERTAINING TO PATIENTS WHO [...] BE BASED ON THE PRIMARY CLINICAL RECORDS. [facility] [place] [facility]. provides no warranty or guarantee of the accuracy or completeness of information in this document.
[2024-01-28 15:30] VITALS: PULSE 0; O2SAT 94
[2024-01-28 15:40] VITALS: PULSE 0; O2SAT 88
[2024-01-28] MEDS: LORAZEPAM 2 MG/ML VIAL 0.5 MG IV (16:08)
--- NOTE | 2024-01-28 18:02 | ED.WEAKNESS1 ---
HPI - Weakness General Chief complaint: Weakness Stated complaint: weakness Time Seen by Provider: 01/28/24 15:40 Source: caregiver Mode of arrival: ambulance Limitations: language barrier History of Present Illness HPI Narrative: The patient was brought to us from hospice care after she recently was placed there after she was diagnosed with the cervical cancer and normal heart rhythm, the patient is to was still DNR CCA at the time but she has been weaker than usual for the last few days and that why they at 911 was called. Upon arrival the patient is weak and although awake and responding and following commands she is not providing history. The history is provided by the family who was at the bedside The patient is placed on hospice care although she is right now on palliative care because they want her to get some blood transfusion in case needed the patient at the moment not able to provide with a history she is awake and hard to hearing, not saying yes or no to any of the questions asked Related Data Home Medications ?Medication ?Instructions ?Recorded ?Confirmed acarbose 100 mg tablet 100 mg PO BIDWM 08/15/23 01/03/24 acetaminophen 500 mg capsule 1,000 mg PO .QHS 08/15/23 01/03/24 albuterol sulfate 90 mcg/actuation 2 inh inhalation Q6H PRN shortness 08/15/23 01/03/24 aerosol inhaler (ProAir HFA) of breath or wheezing atorvastatin 40 mg tablet 40 mg PO BEDTIME 08/15/23 01/03/24 cholecalciferol (vitamin D3) 125 125 mcg PO DAILY 08/15/23 01/03/24 mcg (5,000 unit) capsule famotidine 40 mg tablet 40 mg PO .QHS 08/15/23 01/03/24 ferrous sulfate 325 mg (65 mg 325 mg PO DAILY 08/15/23 01/03/24 iron) tablet,delayed release fluticasone propionate 50 2 spray intranasal DAILY PRN 08/15/23 01/03/24 mcg/actuation nasal allergy symptoms spray,suspension (Allergy Relief (fluticasone)) ipratropium bromide 0.02 % 2.5 ml inhalation Q4H PRN 08/15/23 01/03/24 solution for inhalation shortness of breath or wheezing lumateperone 42 mg capsule 42 mg PO .QHS 08/15/23 01/03/24 (Caplyta) magnesium hydroxide 400 mg/5 mL 2,400 mg PO DAILY PRN constipation 08/15/23 01/03/24 oral suspension (Milk of Magnesia) metformin 1,000 mg tablet 1,000 mg PO BID 08/15/23 01/03/24 montelukast 10 mg tablet 10 mg PO DAILY 08/15/23 01/03/24 nitroglycerin 400 mcg/spray 1 spray sublingual Q5M PRN chest 08/15/23 01/03/24 translingual pain ranolazine 500 mg tablet,extended 500 mg PO BID 08/15/23 01/03/24 release,12 hr sacubitril 24 mg-valsartan 26 mg 1 tab PO BID 08/15/23 01/03/24 tablet (Entresto) topiramate 25 mg tablet (Topamax) 25 mg PO .QHS 08/15/23 01/03/24 trazodone 50 mg tablet 25 mg PO BEDTIME 08/15/23 01/03/24 dulaglutide 0.75 mg/0.5 mL 0.75 mg subcut QWEEK 11/04/23 01/03/24 subcutaneous pen injector (Trulicity) aspirin 81 mg tablet,delayed 81 mg PO DAILY 11/09/23 01/03/24 release cyanocobalamin (vitamin B-12) 1,000 mcg PO DAILY 11/09/23 01/03/24 1,000 mcg tablet furosemide 20 mg tablet 20 mg PO DAILY 12/11/23 01/03/24 Previous Rx's ?Medication ?Instructions ?Recorded cefdinir 300 mg capsule 600 mg (2 x 300 mg) PO QD #20 caps 01/06/24 Allergies Allergy/AdvReac Type Severity Reaction Status Date / Time No Known Drug Allergies Allergy Verified 01/25/24 15:57 Review of Systems ROS Narrative Not able to obtain review of system due to patient clinical condition [facility] Medical History Cardiac arrhythmia ?I49.9 - Cardiac arrhythmia, unspecified (ICD-10) Syncope ?R55 - Syncope and collapse (ICD-10) Anemia ?D64.9 - Anemia, unspecified (ICD-10) Metastasis from cervical cancer ?C79.9 - Secondary malignant neoplasm of unspecified site (ICD-10) ?C53.9 - Malignant neoplasm of cervix uteri, unspecified (ICD-10) Cervical cancer, FIGO stage IV ?C53.9 - Malignant neoplasm of cervix uteri, unspecified (ICD-10) Postmenopausal bleeding ?N95.0 - Postmenopausal bleeding (ICD-10) CAD (coronary artery disease) ?I25.10 - Atherosclerotic heart disease of [place] coronary artery without angina pectoris (ICD-10) (HFpEF) heart failure with preserved ejection fraction ?I50.30 - Unspecified diastolic (congestive) heart failure (ICD-10) Heart palpitations ?R00.2 - Palpitations (ICD-10) Diastolic dysfunction ?I51.89 - Other ill-defined heart diseases (ICD-10) Lower extremity edema ?R60.0 - Localized edema (ICD-10) Atypical chest pain ?R07.89 - Other chest pain (ICD-10) Dyspnea ?R06.00 - Dyspnea, unspecified (ICD-10) Poor speech ?R47.9 - Unspecified speech disturbances (ICD-10) High cholesterol ?E78.00 - Pure hypercholesterolemia, unspecified (ICD-10) Diabetes ?E11.9 - Type 2 diabetes mellitus without complications (ICD-10) Schizophrenia ?F20.9 - Schizophrenia, unspecified (ICD-10) COPD (chronic obstructive pulmonary disease) ?J44.9 - Chronic obstructive pulmonary disease, unspecified (ICD-10) Psychological disorder ?F99 - Mental disorder, not otherwise specified (ICD-10) Deaf ?H91.90 - Unspecified hearing loss, unspecified ear (ICD-10) Hypertension ?I10 - Essential (primary) hypertension (ICD-10) Incomplete bladder emptying ?R33.9 - Retention of urine, unspecified (ICD-10) Asthma ?J45.909 - Unspecified asthma, uncomplicated (ICD-10) Hydroureter ?N13.4 - Hydroureter (ICD-10) 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 - Other and unspecified doubling of uterus (ICD-10) Thickened endometrium ?R93.89 - Abnormal findings on diagnostic imaging of other specified body structures (ICD-10) 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 ?R87.613 - High grade squamous intraepithelial lesion on cytologic smear of cervix (HGSIL) (ICD-10) Surgical History History of appendectomy ?Z90.49 - Acquired absence of other specified parts of digestive tract (ICD-10) H/O section ?Z98.891 - History of uterine scar from previous surgery (ICD-10) Family History Father Family history of coronary artery disease Family history of myocardial infarction Mother Family history of coronary artery disease Family history of diabetes mellitus Family history of myocardial infarction Other Family history of hypertension Family history of stroke Kidney disease Social History Within the past year, how often did you have a drink containing alcohol: never Score interpretation: A score less than 3 is consistent with normal alcohol consumption. 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 General: Weak and tired. Skin: Warm, dry, no pallor noted. No rash. Head: Normocephalic, atraumatic. Neck: Supple, non-tender. Heart examination showed that the patient have very bradycardic rhythm Respiratory: No accessory muscle use or respiratory distress. Lungs are clear to auscultation, no wheezing, rales or rhonchi Chest Wall: no tenderness Back: No midline thoracic or lumbar vertebral tenderness. No CVA tenderness Musculoskeletal: normal ROM, no calf or popliteal tenderness, no lower extremity edema/swelling GI: Abdomen is soft, non-distended. Normal bowel sounds. No masses appreciated. No tenderness to palpation. No rebound, guarding, or rigidity noted. Constitutional Vital Signs, click to edit/add: Last Vital Signs Temp 96.0 F L 01/28/24 15:21 Pulse 0 L 01/28/24 15:40 Resp 20 01/28/24 15:40 BP 84/60 L 01/28/24 15:21 Pulse Ox 88 L 01/28/24 15:40 O2 Del Method Room Air 01/28/24 15:21 Course Vital Signs Vital signs: Vital Signs Pulse Rate 37 L 01/28/24 15:18 Respiratory Rate 16 01/28/24 15:18 Pulse Oximetry 99 01/28/24 15:18 Temperature 96.0 F L 01/28/24 15:21 Pulse Rate 0 L 01/28/24 15:40 Respiratory Rate 20 01/28/24 15:40 Blood Pressure 84/60 L 01/28/24 15:21 Pulse Oximetry 88 L 01/28/24 15:40 Oxygen Delivery Method Room Air 01/28/24 15:21 MDM - Weakness MDM Narrative Medical decision making narrative: Upon arrival the patient heart rate was in the low 40s and sometimes in the 30s it was ventricular rhythm With the patient being DNR CCA with a hospice plan I spoke with the family at the private room and explained to them at the moment which was the son and his , that the patient right now is critical and she could be actively dying specially with her heart rate being in the 30s, I explained to them right now we can get some blood workup and do some palliative blood transfusion in case needed but this is a critical time that the patient could be passing away in few minutes The patient family agreeable that she should be comfort care the whole plan is they need hospice to be arranged for before she gets discharged but I did explain to them right now that she is critical and once we evaluate we will proceed to hospice care The patient then within an hour started gasping she was placed on oxygen and her CODE STATUS was changed to DNR CC as per the family request The patient family was at the bedside well she was actively passing away--- I was called to the bedside after the patient stopped breathing , pupils are fixed bilaterally and not reactive , patient is pale and there is no pulse , auscultation showed that the patient does not have any heart activity and ultrasound at the bedside confirmed that ..time of is 5:10 PM of January 28, 2024 We will make sure that we call the crime laboratory analyst the patient family requested that the home [employer] will be taking care of the body The patient case was cleared by the crime laboratory analyst Nazario Pereira and Dr. Leal who is the patient primary care he will sign the certificate Discharge Plan Discharge Patient Disposition: Date/Time: 01/28/24 17:10 Probable Cause of Probable Cause of : Cardiac arrest
== END 2024-01-28 19:15 | disposition expired ==
PROVIDERS: Emergency Provider Emergency Medicine; PCP Internal Medicine
DX: R00.1 Bradycardia, unspecified (principal); C53.9 Malignant neoplasm of cervix uteri, unspecified; Z66 Do not resuscitate
CPT/HCPCS: 36415; 80053; 96374; 99284; J2060